=== PATIENT | female | born 1955 | race Caucasian/White ===

== ENCOUNTER 2019-05-31 13:20 | Emergency (ER) | payer MEDICARE, SELFPAY ==
[2019-05-31 13:20] VITALS: BP 161/86; PULSE 99; RESP 16; TEMP 36.7; O2SAT 100; BMI 28.1
--- NOTE | 2019-05-31 14:17 | CT_ITS ---
STUDY: CT BRAIN WITHOUT CONTRAST REASON FOR EXAM: Female, 64 years old. 4 day history of occipital headaches as well as left orbital and left earache. RADIATION DOSAGE (If Supplied By Facility): CTDIvol = ( 44.99 ) mGy, DLP = ( 796.11 ) mGycm TECHNIQUE: Transaxial CT imaging of the brain was performed without administration of intravenous contrast material. Individualized dose optimization techniques were used for this CT. COMPARISON: No relevant priors. FINDINGS: Normal soft tissue structures. Normal calvarium. There is mild cerebral atrophy with widening of the extra-axial spaces and ventricular dilatation. Normal white matter tracts of the cerebral hemispheres. Normal basal ganglia and thalami. Normal brainstem. Normal cerebellum. There is no intracranial hemorrhage. There are no findings of an acute ischemic infarction. Normal visualized paranasal sinuses. CT/Brain/Head without Contrast IMPRESSION: Chronic involutional changes of the brain. Electronically Signed: Partha Wilkins, at 15:02 EDT , Service support ,
[2019-05-31 14:53] LABS: Erythrocyte Sedimentation Rate 7 mm/hr (0-30)
[2019-05-31 14:55] LABS: Absolute Lymphocyte Count 1.52 X10^3/uL (0.83-4.51); Absolute Neutrophil Count 2.4 X10^3/uL (2.0-7.7); Basophil# 0.05 X10^3/uL; Basophil% 1.1 % (0-1); Eosinophil# 0.09 X10^3/uL; Hematocrit 43.6 % (37-47); Hemoglobin 15.1 g/dL (12.0-15.0); Lymphocyte # 1.52 X10^3/ul (4.0); Lymphocyte % 34.1 % (19-41); Mean Corp Hgb Conc 34.6 g/dL (32-36); Mean Corpuscular Volume 95.4 fL (81-99); Mean Platelet Vol. 9.7 fl (6.2-12.0); Monocyte# 0.43 X10^3/uL; Monocyte% 9.6 % (0-10); NRBC Flagged by Analyzer 0 % (0-5); Neutrophil # 2.36 X10^3/uL (2.7-7.7); Platelet Count 213 K/mm3 (150-450); RBC Distribution Width CV 11.1 % (11.6-14.6); RBC Distribution Width SD 39.1 fl (35.1-43.9); Red Blood Count 4.57 M/mm3 (4.2-5.4); White Blood Count 4.5 K/mm3 (4.4-11.0)
[2019-05-31 15:03] LABS: ALB/GLOB Ratio 1.1 RATIO (0.9-2.4); AST(SGOT) 27 U/L (15-37); Alanine Aminotransfer ALT/SGPT 54 U/L (13-56); Albumin, Serum 3.7 g/dL (3.2-5.0); Alkaline Phosphatase 71 U/L (45-117); Anion Gap 8 (5-15); BUN 13 mg/dL (7-18); BUN/Creat Ratio 15.2 RATIO (10-20); Calcium,Total 9.2 mg/dL (8.5-10.1); Chloride 109 mmol/L (98-107); Creatinine, Serum 0.86 mg/dL (0.55-1.02); EST Glomerular Filtration Rate 71 mL/min (>60); Est Glom Filt Rate - Afr Amer 85 mL/min (>60); Estimated Creatinine Clearance 58.68 ml/min; Globulin 3.4 g/dL (2.2-4.2); Glucose 96 mg/dL (74-106); Potassium 3.8 mmol/L (3.5-5.1); Protein, Total 7.1 g/dL (6.4-8.2); Sodium Level 142 mmol/L (136-145)
--- NOTE | 2019-05-31 15:42 | ED.DCSUM_ITS ---
History of Present Illness Chief Complaint: Headache Detail of Chief Complaint: Left eye pain, occipital and left ear pain that is intermittent Informant: Patient Onset: Days - Onset of symptoms 5 days ago Context: Sudden Onset Timing: Continuous - The eye pain is continuous, Intermittent - The occipital pain and left ear pain is intermittent and transient Quality: Sharp piercing pain Location: Occiput, left ear and left eye Current Severity: Moderate Maximum Severity: Severe Worsened by: Nothing Relieved by: Nothing Associated Symptoms: No associated symptoms Narrative: Patient is a 64-year-old woman who presents with left occipital pain that is transient sharp in nature is not exacerbated, precipitated or alleviated by anything. She states this is associated with left ear pain. She is had constant left eye pain for the past 5 days. She denies double vision, blurred vision loss of vision. She denies flashing lights. There is no history of glaucoma in the family or herself. She denies nausea or vomiting. There is no history of trauma. She denies neck pain or neck stiffness. She denies ringing or ears or decreased hearing. She denies trouble with speech or swallowing. She denies cardiac respiratory symptoms. She denies paresthesia, anesthesia motor weakness of the upper lower extremity. She denies trouble with balance. She denies difficulty concentrating or remembering things. He has a history of hypertension. Prior similar symptoms: No Recent Illness/Hospitalization: No - Past Medical History (1) History of hypertension Status: Acute Past Medical History - Allergies and Home Meds Allergies/Adverse Reactions: Allergies No Known Allergies Allergy (Verified 05/31/19 14:38) Primary Care Physician: Care Physician,No Primary [Primary Care Provider] - Prior records reviewed: Yes Surgical History: noncontributory Lives: Spouse/ Significant Other Smoking Status: Never smoker Alcohol: None Drugs: None Review of Systems General: Denies: Chills, Fever, Malaise, Subjective, Sweats, Weight loss Eyes: Reports: - - Complains of eye pain. Denies photophobia or any other ocular symptoms.. Denies: Visual changes - bilaterally, Blurred Vision - bilate rally, Diplopia ENT: Reports: Left ear pain. Denies: Right ear pain, Rhinorrhea, Sore throat Cardiovascular: Denies: Chest pain, Palpitations Respiratory: Denies: Dyspnea, Cough, Dyspnea on exertion Gastrointestinal: Denies: Abdominal pain, Nausea, Vomiting, Diarrhea, Melena, Hematochezia Musculoskeletal: Denies: Myalgias, Arthralgias, Neck pain, Back pain, Swelling, Extremity Pain, -, - Skin: Denies: Rash, Wounds Neurological: Reports: Headache. Denies: Weakness, Parasthesia, Numbness Psych: Denies: Depression, Anxiety Hematologic: Denies: Easy bruising, Easy bleeding Physical Exam Vital Signs/Narrative: Vital Signs Temp Pulse Resp BP Pulse Ox 05/31/19 13:20 98.1 F 99 16 161/86 H 100 Inital Vital Signs reviewed: Yes General: Well nourished, Well developed, No Acute Distress Head: Normocephalic, Atraumatic, - - No tenderness over the left temporal artery. Eyes: Perrl, EOMI, - - Exam reveals normal cup-to-disc ratio. There is no evidence of papilledema. Venous pulsation noted bilaterally.. Negative for: Pale conjunctiva, Scleral icterus ENT: Moist mucous membranes, No rhinorrhea, TM's clear. Negative for: Dry mucous membranes, Nasal congestion, Sinus tenderness Neck: Supple, Nontender, No lymphadenopathy, No JVD, - - Negative meningeal findings Cardiovascular: Regular rate, Regular rhythm, No murmurs, Normal S1, Normal S2 Respiratory: No distress, CTA bilaterally, Chest nontender Abdomen: Soft, Nontender, Nondistended, Normal bowel sounds Back: Nontender, Normal Inspection. Negative for: CVA tenderness Extremities: Nontender, No edema Skin: Normal color, No rash Neurological: Alert, Oriented x3, Cranial nerves II-XII grossly intact, Normal Strength, Normal Sensation, Normal DTR, Normal Gait Psychological: Normal affect, Normal Mood Diagnostic/Tx/Re-eval Impressions Brain CT 05/31/19 14:17 IMPRESSION: Chronic involutional changes of the brain. Electronically Signed: Partha Wilkins, at 15:02 EDT , Service support , 05/31/19 14:17 Brain/Head without Contrast [CT] Stat Laboratory Results 05/31/19 05/31/19 14:40 14:40 WBC 4.5 RBC 4.57 Hgb 15.1 H Hct 43.6 MCV 95.4 MCH 33.0 H MCHC 34.6 RDW Std Deviation 39.1 RDW Coeff of Miguel 11.1 L Plt Count 213 MPV 9.7 Immature Gran % (Auto) 0.200 Neut % (Auto) 53.0 Lymph % (Auto) 34.1 Terry % (Auto) 9.6 Eos % (Auto) 2.0 Baso % (Auto) 1.1 H Absolute Neuts (auto) 2.4 Absolute Lymphs (auto) 1.52 Nucleated RBC % 0 ESR 7 Sodium 142 Potassium 3.8 Chloride 109 H Carbon Dioxide 25.0 Anion Gap 8 BUN 13 Creatinine 0.86 Estim Creat Clear Calc 58.68 Est GFR (MDRD) Af Amer 85 Est GFR (MDRD) Non-Af 71 BUN/Creatinine Ratio 15.2 Glucose 96 Calcium 9.2 Total Bilirubin 0.50 AST 27 ALT 54 Alkaline Phosphatase 71 Total Protein 7.1 Albumin 3.7 Globulin 3.4 Albumin/Globulin Ratio 1.1 Sed rate is normal. This would essentially rule out temporal arteritis. CAT scan was unremarkable. The rest of her work-up was unremarkable. Patient was instructed to keep her appointment with the non linear editor scheduled for later today. ED Disposition - Plan for ED Patient: Disposition: Home or Assisted Living Diagnosis: Acute left eye pain, Occipital pain Referrals: Care Physician,No Primary [Primary Care Provider] - Additional Instructions: Keep appointment with non linear editor.
== END 2019-05-31 15:52 | disposition home or self-care (01) ==
PROVIDERS: Emergency Provider Emergency Medicine
DX: H57.12 Ocular pain, left eye (principal); R51 Headache; H92.02 Otalgia, left ear; I10 Essential (primary) hypertension
CPT/HCPCS: 70450; 80053; 85025; 85652; 99282

== ENCOUNTER 2021-10-21 08:04 | Emergency (ER) | payer MEDICARE, OTHER, SELFPAY ==
[2021-10-21 08:05] VITALS: BP 136/79; PULSE 98; RESP 16; TEMP 36.1; O2SAT 97; BMI 27.1
--- NOTE | 2021-10-21 08:21 | CT_ITS ---
STUDY: CT BRAIN WITHOUT CONTRAST REASON FOR EXAM: Female, 66 years old. Pain RADIATION DOSAGE (If Supplied By Facility): CTDIvol = ( 44.99 ) mGy, DLP = ( 812.98 ) mGycm TECHNIQUE: Transaxial CT imaging of the brain was performed without administration of intravenous contrast material. Individualized dose optimization techniques were used for this CT. COMPARISON: No relevant priors. FINDINGS: Air-fluid level in the left globe may be related to recent surgery. Clinical correlation is recommended. Normal calvarium. There is mild cerebral atrophy with widening of the extra-axial spaces and ventricular dilatation. There are areas of decreased attenuation within the white matter tracts of the supratentorial brain, consistent with microvascular disease changes. Normal basal ganglia and thalami. Normal brainstem. Normal cerebellum. There is no intracranial hemorrhage. There are no findings of an acute ischemic infarction. Normal visualized paranasal sinuses. CT/Brain/Head without Contrast IMPRESSION: 1. Chronic involutional changes of the brain. 2. Air-fluid level in the left globe possibly related to recent surgery. Clinical correlation is recommended. Electronically Signed: Ck Saunders MD at 8:48 EDT ,
--- NOTE | 2021-10-21 08:21 | EX.ED.VIS.HA ---
HPI History of Present Illness Chief Complaint: Headache Narrative Narrative: 66-year-old female presenting with headache. She states it radiates up from her neck into her head. She states she feels like her neck muscles are tight and causing a headache. The headache is intermittent and feels like ice packs in her head all over. She denies dizziness, lightheadedness, visual complaints, nausea, vomiting. No history of migraines. She was seen outpatient for this and given muscle relaxers without relief. Patient states that she had a retinal detachment recently and was seen for this. Since the surgery she had for her eyes she has had to hold her neck to the right intermittently for relief. Her symptoms started before the eye surgery and the retinal detachment. Patient did not had any imaging of her brain. PFSH PFS Medical History Environmental allergies Hemorrhoids Seasonal allergies Home Medications ascorbic acid (vitamin C) 500 mg capsule mg PO 07/03/21 [History Last Taken Unknown] cholecalciferol (vitamin D3) 10 mcg (400 unit) capsule 10 mcg PO DAILY 07/03/21 [History Last Taken Unknown] tumeric 100 mg-sanjiv 150 mg-olive 50 mg-oreg 150 mg-caprylate capsule cap PO 07/03/21 [History Last Taken Unknown] zinc sulfate 66 mg tablet 66 mg PO DAILY 07/03/21 [History Last Taken Unknown] Allergy/AdvReac Type Severity Reaction Status Date / Time [id number] Reductase AdvReac Pain in Verified 10/21/21 08:05 Inhibitor joints Social History Smoking Status: Never smoker alcohol intake: never ROS ROS ED Constitutional Constitutional ED: Denies chills or fever(s) Eyes Eyes: Denies blurry vision or change in vision ENT ENT ED: Denies rhinorrhea or sore throat Cardiovascular Cardiovascular: Denies chest pain or palpitations Respiratory/Chest Respiratory/Chest: Denies cough or dyspnea Gastrointestinal Gastrointestinal: Denies abdominal pain, nausea or vomiting Genitourinary Genitourinary ED: Denies dysuria or hematuria Musculoskeletal Musculoskeletal: Denies arthralgias or myalgias Integumentary Denies abscess or rash Neurologic Neurologic: Denies headache(s) or weakness EXAM Physical Exam Const Vital Signs: 10/21/21 08:05 Temperature 96.9 F L Temperature Source Temporal Pulse Rate 98 Respiratory Rate 16 Blood Pressure 136/79 H Blood Pressure Mean 98 Pulse Ox 97 Oxygen Delivery Method Room Air Positive well nourished General Appearance ED: ISHMAEL RICHTER Reports normocephalic atraumatic Eyes PERRL and EOMs intact bilaterally Resp normal respiratory effort and clear to auscultation bilaterally Cardio regular rate and regular rhythm GI non-tender Palpation: soft Neuro oriented x3, CN's II-XII intact bilaterally and no sensory deficits noted Sensorium / Orientation: awake and alert Psych mental status grossly normal Skin Nails: normal MDM MDM MDM Narrative Medical decision making narrative: Patient seen and evaluated for headache. I do believe this is a tension type headache. Patient with recent surgery to the left eye for detached retina she states. She is having to hold her head leaning to the right for 50 minutes at a time which I believe is worsening her headache pain. She has no focal neurologic deficits or lateralizing signs or symptoms. She was given a migraine cocktail and obtained a CT of the brain which does not show any intracranial abnormalities. The radiologist does note air-fluid level in the left lobe due to related recent surgery. Patient has some relief of her headache pain but states it still present. She states that Excedrin Migraine does work for her headache however she is unable to take this because of the aspirin component and the recent surgery. She is counseled to follow these instructions and follow-up with ophthalmology. I did give her referral to Dr. Singleton. She is discharged home in stable condition. Impression: 1. Headache Radiography Diagnostic Testing: Clinical Impression(s) from Imaging Studies Brain CT 10/21/21 08:21 IMPRESSION: 1. Chronic involutional changes of the brain. 2. Air-fluid level in the left globe possibly related to recent surgery. Clinical correlation is recommended. Electronically Signed: Ck Saunders MD at 8:48 EDT , Discharge Plan Triage Chief Complaint: Headache ED Provider: Dileep Cheng Dx/Rx/DC Orders Instructions: ED Headache, Tension Prescriptions: No Action ascorbic acid (vitamin C) 500 mg capsule PO RF: 0 cholecalciferol (vitamin D3) 10 mcg (400 unit) capsule 10 mcg PO DAILY RF: 0 Zinc-15 66 mg tablet 66 mg PO DAILY RF: 0 neohpxs-xvfz-ffpmt-oreg-capryl 100 mg-150 mg- 50 mg-150 mg capsule PO RF: 0 Primary Care Provider: Care Physician,No Primary Referrals: gJ Singleton MD [STAFF PHYSICIAN] - As soon as possible Care Physician,No Primary [Primary Care Provider] - Disposition Disposition: Home, Self Care
[2021-10-21] MEDS: DiphenhydrAMINE 50 MG/ML Syringe 25 MG IV (08:29)
[2021-10-21] MEDS: Metoclopramide 10 MG/2 ML Vial IV (08:29)
[2021-10-21] MEDS: 0.9% Normal Saline 1,000 ML 999 ML IV (08:29)
[2021-10-21] MEDS: Ketorolac 15 MG/ML Vial IV (09:13)
== END 2021-10-21 10:15 | disposition home or self-care (01) ==
PROVIDERS: Emergency Provider Student in an Organized Health Care Education/Training Program; Visit Provider Student in an Organized Health Care Education/Training Program
DX: R51.9 Headache, unspecified (principal)
CPT/HCPCS: 70450; 96361; 96374; 96375; 99282; J7030; A4216

== ENCOUNTER 2021-10-23 09:53 | Outpatient (CLI) | payer MEDICARE, OTHER, SELFPAY ==
--- NOTE | 2021-10-23 10:00 | RAD_ITS ---
INDICATION: Neck pain; occipital headaches EXAMINATION/TECHNIQUE: X-RAY - XR Spine Cervical 2 or 3 Views COMPARISON: None. FINDINGS: VERTEBRAE: Preserved vertebral body height. No fracture. No spondylolisthesis. Preservation of the normal cervical lordosis. Mild multilevel degenerative changes and facet arthropathy. DISCS: Disc spaces are maintained. NECK SOFT TISSUES: No prevertebral soft tissue widening. LUNG APICES: Clear. RAD/Cerv Spine 2 or 3 Views IMPRESSION: No acute findings. Electronically Signed: Merlin Ruelas, at 16:34 EDT ,
[2021-10-23 12:18] LABS: Erythrocyte Sedimentation Rate 19 mm/hr (0-30)
[2021-10-23 12:20] LABS: Hematocrit 44.6 % (37-47); Hemoglobin 15.7 g/dL (12.0-15.0); Mean Corp Hgb Conc 35.2 g/dL (32-36); Mean Corpuscular Hgb 33.3 pg (27.0-32.0); Mean Corpuscular Volume 94.7 fL (81-99); Mean Platelet Vol. 9.7 fl (6.2-12.0); Platelet Count 334 K/mm3 (150-450); RBC Distribution Width CV 11.1 % (11.6-14.6); RBC Distribution Width SD 38.7 fl (35.1-43.9); Red Blood Count 4.71 M/mm3 (4.2-5.4); White Blood Count 6.4 K/mm3 (4.4-11.0)
[2021-10-23 12:41] LABS: ALB/GLOB Ratio 0.8 RATIO (0.9-2.4); AST(SGOT) 22 U/L (15-37); Alanine Aminotransfer ALT/SGPT 42 U/L (13-56); Albumin, Serum 3.8 g/dL (3.2-5.0); Alkaline Phosphatase 101 U/L (45-117); Anion Gap 5 (5-15); BUN 12 mg/dL (7-18); BUN/Creat Ratio 13.9 RATIO (10-20); Calcium,Total 10.1 mg/dL (8.5-10.1); Chloride 102 mmol/L (98-107); Creatinine, Serum 0.86 mg/dL (0.55-1.02); EST Glomerular Filtration Rate 69 mL/min (>60); Est Glom Filt Rate - Afr Amer 84 mL/min (>60); Globulin 4.6 g/dL (2.2-4.2); Glucose 112 mg/dL (74-106); Potassium 3.9 mmol/L (3.5-5.1); Protein, Total 8.4 g/dL (6.4-8.2); Sodium Level 137 mmol/L (136-145)
== END 2021-10-23 23:59 | disposition home or self-care (01) ==
LOC: MTLAB 09:55
PROVIDERS: PCP Nurse Practitioner Family; Referring Provider Psychiatry & Neurology Neurology; Visit Provider Psychiatry & Neurology Neurology
DX: M54.2 Cervicalgia (principal); R51.9 Headache, unspecified; Z86.79 Personal history of other diseases of the circulatory system
CPT/HCPCS: 36415; 72040; 80053; 85027; 85652

== ENCOUNTER → 2024-06-25 | Outpatient (CLI) | payer MEDICARE, OTHER, SELFPAY ==
[2024-06-25 13:25] VITALS: BP 124/60; PULSE 90; RESP 16; O2SAT 100; BMI 26.8
[2024-06-25 13:45] LABS: CREATININE FINGERSTICK < 1.0 mg/dL (0.55-1.02); EGFR FINGERSTICK > 60.0000 mL/min (>60)
[2024-06-25 13:47] VITALS: PULSE 74
[2024-06-25] MEDS: Nitroglycerin SL (ED/IMG/CATH) 0.4 MG TABLET SL (13:47)
[2024-06-25 13:51] VITALS: BP 124/60; PULSE 72
[2024-06-25] MEDS: Metoprolol Tartrate 5 MG/5 ML Vial IV (13:51)
[2024-06-25 13:57] VITALS: BP 121/63; PULSE 62; RESP 16; O2SAT 97
--- NOTE | 2024-06-25 14:04 | CT_ITS ---
STUDY: CT CHEST WITH CONTRAST REASON FOR EXAM: Female, 69 years old. CHEST PAIN RADIATION DOSAGE (If Supplied By Facility): CTDIvol = ( 28.84 ) mGy, DLP = ( 1112.37 ) mGycm TECHNIQUE: Transaxial imaging was performed following intravenous administration of IV 75mL Isovue-370. Individualized dose optimization techniques were used for this CT. COMPARISON: No relevant priors. FINDINGS: CHEST The lungs are normal. There is no demonstrated pleural abnormality. There are calcifications of the coronary arteries. Normal mediastinum. Calcified right hilar lymph nodes. Normal unenhanced pulmonary arteries. There is atherosclerotic calcification of the aortic arch. There are degenerative changes of the thoracic spine. Small hiatal hernia. Fatty infiltration of the liver. CT/Limited Chest CT Cardiac Only IMPRESSION: Mild coronary artery calcification. Electronically Signed: Partha Wilkins MD at 9:09 EST ,
--- NOTE | 2024-06-28 08:11 | CCTA.WCONT ---
CCTA w/Cont Coronary Arteries Date of Study:: 06/25/24 Chest pain Coronary Calcium Scoring: High-resolution Computed Tomographic imaging of the chest was performed on [06/25/2024], with particular attention paid to the coronary arteries. Intravenous contrast agent was administered per protocol and images reconstructed and displayed. LEFT MAIN CORONARY ARTERY: Arises from the left coronary cusp and bifurcates into left anterior descending artery and left circumflex artery with no significant stenosis present. [] LEFT ANTERIOR DESCENDING CORONARY ARTERY: Arises from the left main coronary artery. It courses towards the apex of the ventricle with a diagonal vessel with no significant atherosclerotic plaquing present. [] LEFT CIRCUMFLEX CORONARY ARTERY: Nondominant vessel arising from the left main coronary artery with a proximal area of eccentric nonobstructive plaquing noted the vessel continuing giving of an obtuse marginal branch. [] RIGHT CORONARY ARTERY: Large dominant vessel arising from the right coronary cusp with no significant atherosclerotic plaquing present. [] THORACIC AORTA: Mild anterior calcification CORONARY CALCIUM SCORE: Not done Conclusion: CT angiogram demonstrating minimal atherosclerotic plaquing. No significant obstruction present. []
== END | disposition home or self-care (01) ==
LOC: CT 13:05
PROVIDERS: PCP Nurse Practitioner Family; Referring Provider Internal Medicine Cardiovascular Disease; Visit Provider Internal Medicine Cardiovascular Disease
DX: R07.89 Other chest pain (principal)
CPT/HCPCS: 75574; 76380; 96374; Q9967

== ENCOUNTER 2025-02-27 10:16 | Emergency (ER) | payer MEDICARE, OTHER, SELFPAY ==
[2025-02-27 10:18] VITALS: BP 123/54; PULSE 100; RESP 17; TEMP 36.9; O2SAT 100
[2025-02-27 10:41] VITALS: BP 123/54; PULSE 100; RESP 17; TEMP 36.9; O2SAT 100
--- NOTE | 2025-02-27 10:42 | EX.ED.DYSGE1 ---
HPI History of Present Illness Chief Complaint: Other, Pain/Inj Detail of Chief Complaint: Fecal impaction Informant: patient and spouse/S.O. Onset/Context/Timing Onset: - (Last normal bowel movement 2 to 3 days ago) Context: Gradual Onset Timing: Continuous Quality: Feels like there is something stuck feels like I have a rag in my rectum Location: Rectum Current Severity: Moderate Maximum Severity: Moderate Worsened by: Not able to go Relieved by: Nothing Associated Symptoms Associated Symptoms: Had near syncopal sewed while straining on the commode Narrative Narrative: Patient is a 69-year-old woman with history of breast cancer. Last chemo was Friday. Patient presents with no bowel movement to 3 days. She states she used a normal saline enema with no results. She feels as if something is stuck in her rectum a rag . Patient did have near syncopal show with shaking and near syncope while straining to have a bowel movement prior to presentation. She had no other symptoms. She has no documented fever. She has no respiratory or urologic symptoms. Prior similar symptoms: No Recent Illness/Hospitalization: No PFSH PFSH Medical History Breast cancer Hypertension Cervical paraspinal muscle spasm GERD (gastroesophageal reflux disease) Retinal detachment High cholesterol Hx of cataract UTI (urinary tract infection) History of back problems Environmental allergies Seasonal allergies Hemorrhoids Home Medications ?Medication ?Instructions ?Recorded ?Last Taken ?Type omeprazole 40 mg capsule,delayed 40 mg PO DAILY #30 caps 12/03/21 Unknown Rx release diphenhydramine HCl 25 mg capsule 50 mg PO Q8H PRN allergy symptoms 02/27/25 Unknown History (Benadryl) fluorometholone 0.1 % eye 1 drp LEFT EYE DAILY 02/27/25 Unknown History drops,suspension gabapentin 100 mg capsule 200 mg PO TID 02/27/25 Unknown History pembrolizumab 50 mg intravenous 200 mg IV 02/27/25 Unknown History solution promethazine 25 mg tablet 25 mg PO TID PRN nausea and 02/27/25 Unknown History vomiting Allergy/AdvReac Type Severity Reaction Status Date / Time [id number]-BSG-[id number] Reductase AdvReac Pain in Verified 02/27/25 10:20 Inhibitor joints Family History Uncle Alcoholism Aunt Alcoholism Breast cancer Cancer ovarian Mother Liver disease Brother High cholesterol Social History household members: spouse housing: house Smoking Status: Never smoker alcohol intake: never substance use type: does not use what type of physical activity do you participate in: none ROS ROS ED Constitutional Constitutional ED: Denies chills, fever(s), subjective or sweats Eyes Eyes: Denies blurry vision or change in vision Cardiovascular Cardiovascular: Denies chest pain or palpitations Respiratory/Chest Respiratory/Chest: Denies cough, dyspnea or dyspnea on exertion Gastrointestinal Gastrointestinal: Reports abdominal pain and constipation; Denies diarrhea, melena, nausea or vomiting Genitourinary Genitourinary ED: Denies dysuria, hematuria or urinary frequency EXAM Physical Exam Const Vital Signs: 02/27/25 10:18 02/27/25 10:34 02/27/25 10:41 Temperature 98.4 F 98.4 F Temperature Source Oral Pulse Rate 100 100 Respiratory Rate 17 17 Respiratory Effort Normal Non-Labored Respiratory Pattern Normal Blood Pressure 123/54 H 123/54 H Blood Pressure Mean 77 77 Pulse Ox 100 100 Oxygen Delivery Method Room Air Positive well nourished and well developed Constitutional Narrative: Patient left decubitus position as I entered the room. She appears no obvious distress. General Appearance ED: well developed; Negative for pallor HEENT Reports moist mucous membranes HEENT Narrative: Alopecia. Ears normal. Nares patent. Eyes PERRL and EOMs intact bilaterally General Eye ED: Negative for scleral icterus Resp normal respiratory effort Cardio regular rate and regular rhythm GI non-tender, non-distended and no masses; Negative for hepatosplenomegaly GI Narrative: On rectal exam patient has evidence of prior hemorrhoids. The there is a significant fecal impaction noted. Extremity normal to inspection General Extremety ED: Negative for edema or tenderness General Extremity: Negative for edema Neuro oriented x3 and CN's II-XII intact bilaterally Sensorium / Orientation: alert Psych mental status grossly normal Skin no rashes or lesions noted, no wounds and skin turgor normal General Skin Exam: Negative for jaundice or pallor MDM MDM MDM Narrative Medical decision making narrative: Patient with fecal impaction. With nurse in room as kennel hand patient was digitally disimpacted. There was significant mount of stool that was removed. She had minimal bleeding. Will inform patient she may noted blood on the tissue or stool for the next day. Recommended increasing fluid intake and MiraLAX 1 cap a day for a week. She was told with the weather being very hot she will need to increase her fluid intake. Discharge Plan Triage Chief Complaint: Other, Pain/Inj ED Provider: Cuba Castro Dx/Rx/DC Orders Clinical Impression: Fecal impaction in rectum, History of hypertension, History of breast cancer, Vasovagal near syncope Instructions: ED Fecal Impaction, Treated, ED Near-Fainting- Vagal Reaction Prescriptions: No Action fluorometholone 0.1 % drops,suspension 1 drp LEFT EYE DAILY gabapentin 100 mg capsule 200 mg PO TID pembrolizumab 50 mg recon soln 200 mg IV promethazine 25 mg tablet 25 mg PO TID PRN (Reason: nausea and vomiting) diphenhydramine HCl [Benadryl] 25 mg capsule 50 mg PO Q8H PRN (Reason: allergy symptoms) omeprazole 40 mg capsule,delayed release(DR/EC) 40 mg PO DAILY Qty: 30 0RF Primary Care Provider: Babita Morataya NP Referrals: Babita Morataya POULTRY BONER, POULTRY BONER-C [Primary Care Provider] - As Needed Activity Restrictions/Additional Instructions: 1. Recommend increase fluid intake especially with the hot muggy weather this summer. 2. Recommend 1 cap of MiraLAX daily for the next week. If you start to have loose stools back down to half Per day Print Language: Croatian Disposition Disposition: Home, Self Care
--- OUTSIDE RECORDS SUMMARY | 2025-02-27 11:21 | XMS RPT_ITS | CCD ---
Author Organization [facility] Care Team Providers Care Security Researcher Name Role Phone RAFIA CHRISTIENERIKA, BABITA Primary Care Physician RAFIA BRIAN, BABITA Attending Unavail able LORSON INDUSTRIAL TRAINING SPECIALIST-SURVEY RESEARCH MANAGER, [facility] Unavail able LORSON INDUSTRIAL TRAINING SPECIALIST-SURVEY RESEARCH MANAGER, [facility] Unavail able LORSON INDUSTRIAL TRAINING SPECIALIST-SURVEY RESEARCH MANAGER, BABITA Attending Unavail able LORSON INDUSTRIAL TRAINING SPECIALIST-SURVEY RESEARCH MANAGER, [facility] Unavail able DR TIMUR MINA Attending Unavailable LORSON INDUSTRIAL TRAINING SPECIALIST-SURVEY RESEARCH MANAGER, [facility] Unavail able LORSON INDUSTRIAL TRAINING SPECIALIST-SURVEY RESEARCH MANAGER, BABITA Attending Unavail able Swapnil Vargas Attending Unavailable Sukhi Pizano Referring Unavailable Lorson MANUFACTURING ENGINEERING TECHNOLOGIST, [facility] Unavailable Swapnil Vargas Attending Unavailable Sukhi Pziano Referring Unavailable Rafia MANUFACTURING ENGINEERING TECHNOLOGIST, [facility] Unavailable Sukhi Pizano Consulting Unavailable Sukhi Pizano Attending Unavailable Sukhi Pizano Referring Unavailable Lorson MANUFACTURING ENGINEERING TECHNOLOGIST, [facility] Unavailable LORSON INDUSTRIAL TRAINING SPECIALIST-SURVEY RESEARCH MANAGER, BABITA Attending Unavail able LORSON INDUSTRIAL TRAINING SPECIALIST-SURVEY RESEARCH MANAGER, [facility] Unavail able WOO CERON, DR ISBELL Attending Unavailab le LORSON INDUSTRIAL TRAINING SPECIALIST-SURVEY RESEARCH MANAGER, [facility] Care Unavail able LORSON INDUSTRIAL TRAINING SPECIALIST-SURVEY RESEARCH MANAGER, BABITA Attending Unavail able LORSON INDUSTRIAL TRAINING SPECIALIST-SURVEY RESEARCH MANAGER, [facility] Unavail able LORSON INDUSTRIAL TRAINING SPECIALIST-SURVEY RESEARCH MANAGER, BABITA Attending Unavail able LORSON INDUSTRIAL TRAINING SPECIALIST-SURVEY RESEARCH MANAGER, [facility] Unavail able DR ADITYA SMITH DO Attending Unavailable LORSON INDUSTRIAL TRAINING SPECIALIST-SURVEY RESEARCH MANAGER, [facility] Unavail able WOO CERON, DR ISBELL Attending Unavailab le LORSON INDUSTRIAL TRAINING SPECIALIST-SURVEY RESEARCH MANAGER, [facility] Unavail able LORSON INDUSTRIAL TRAINING SPECIALIST-SURVEY RESEARCH MANAGER, BABITA Attending Unavail able LORSON INDUSTRIAL TRAINING SPECIALIST-SURVEY RESEARCH MANAGER, [facility] Unavail able WOO CERON, DR ISBELL Consulting Unavailab le LORSON INDUSTRIAL TRAINING SPECIALIST-SURVEY RESEARCH MANAGER, BABITA Attending Unavail able LORSON INDUSTRIAL TRAINING SPECIALIST-SURVEY RESEARCH MANAGER, DUTTON Primary Care Unavail able LORSON INDUSTRIAL TRAINING SPECIALIST-SURVEY RESEARCH MANAGER, BABITA Attending Unavail able LORSON INDUSTRIAL TRAINING SPECIALIST-SURVEY RESEARCH MANAGER, D[place]TON Primary Care Unavail able LORSON INDUSTRIAL TRAINING SPECIALIST-SURVEY RESEARCH MANAGER, DUTTON Primary Care Unavail able LORSON INDUSTRIAL TRAINING SPECIALIST-SURVEY RESEARCH MANAGER, BABITA Attending Unavail able LORSON INDUSTRIAL TRAINING SPECIALIST-SURVEY RESEARCH MANAGER, DUTTON Primary Care Unavail able LORSON INDUSTRIAL TRAINING SPECIALIST-SURVEY RESEARCH MANAGER, DUTTON Attending Unavail able Lorson INDUSTRIAL TRAINING SPECIALIST.SURVEY RESEARCH MANAGER, [place] Primary Care Provider Sara Avalos MD Unavailable Lidia Hirsch DO Unavailable PROVIDER, UNKNOWN [facility]erring [facility] Un[facility] PROVIDER, UNKNOWN Referring [facility] Unavailable NIDIA WATERMAN Admitting Unavailable NIDIA WATERMAN Attending Un[facility] Unavailable Masci DO [place] A Unavailable Wm LOYD, Jennifer Unavailable Unavailable Deborah Vidal Unavailable Unavailabl e KIMMIE COLBY Referring Unavailable [facility] Unavailable NURYS HIRSCHTLIN C Referring Unavailable [facility] Unavailable MIRZA HIRSCHIN C Attending [facility] Unavailable NURYS HIRSCHTLIN C Attending Unavailable [facility] Unavailable MASCI, ORVILLE A Referring Unavailable [facility] Unavailable MASCI, ORVILLE A Referring Unavailable [facility] Unavailable PROVIDER, UNKNOWN Referring Unavailable [facility] Unavailable MASCI, ORVILLE A Referring Unavailable [facility] Unavailable MASCI, ORVILLE A Referring Unavailable [facility] Referring Unavailable SARA AVALOS Attending Unavailable SONALI LOVE Attending Unavailable [facility] Unavailable ADRIEL REAGAN Referring Unavailable [facility] Unavailable JOYCELYN, LIDIA C Referring Unavailable SONALI LOVE Referring Unavailable [facility] Unavailable MASCI, ORVILLE A Referring Unavailable [facility] Unavailable LORSON, BABITA Primary Care Unavailable KIMMIE COLBY Attending Unavailable MICHELLE ORVILLE A Referring Unavailable LORMATHEW DUTTON Primary Care Unavailable EMILIE LENNON Attending Unavailable MARCI, ORVILLE A Referring Unavailable LORMATHEW [facility] Unavailable LORSON [facility] Unavailable MASCI OR[place] A Referring Unavailable LORSON, DUTTON Primary Care Unavailable LIDIA HIRSCH Referring Unavailable LORSON BABITA Primary Care Unavailable MARCI, ORVILLE A Attending Unavailable LIDIA HIRSCH Referring Unavailable LORSON DUTTON Primary Care Unavailable MARCI, ORVILLE A Referring Unavailable LORSON DUTTON Primary Care Unavailable MARCI, ORVILLE A Referring Unavailable Lorson MANUFACTURING ENGINEERING TECHNOLOGIST-C, [place] Primary Care Provider Matthew CERON, Dr. Brink Emergency Provider Allergies Allergy Classification Reported Allergen(s) Allergy Type Date of Onset Reaction(s) Facility (10 sources) atorvastatin; Translations: [atorvastatin] Drug Allergy Muscle pain (finding) [facility] (10 sources) misc non-codified allergy 1 Allergy to substance Itching (finding) [facility] Comment on above: [place] (1 source) Gagizba-Nac-Wvf Reductase Inhibitor Drug allergy (disorder) 4 [facility] Repository (20 sources) HMG-CoA reductase inhibitor; Translations: [OJOQXVT-WFF-ST A REDUCTASE INHIBITORS] Drug Intolerance 5 Myalgia [facility] (1 source) Mrketwo-Opv-Oks Reductase Inhibitor Propensity to adverse reactions 5 Pain in joints [facility] Medications Current Medications Medication Drug Class(es) Dates Sig (Normalized) Sig (Original) acetaminophen 325 mg oral capsule (9 sources) take 2 capsules by mouth once daily as needed for pain acetaminophen (TYLENOL) 325 mg cap Take 2 capsules by mouth once daily as needed for pain. Active acetaminophen 250 mg / aspirin 250 mg / caffeine 65 mg oral tablet (1 source) Platelet Aggregation Inhibitor, Nonsteroidal Anti-inflammatory Drug, Central Nervous System Stimulant, Methylxanthine Start: 10-17-2021 take 1 tablet by mouth every six hours as needed for headache Excedrin Extra Strength oral tab (250/250/65) Dose = 1 tab(s), Oral, q6h, PRN for headache, 0 Refill(s) Start Date: 10/17/21 Status: Ordered aspirin 81 mg delayed release oral tablet (4 sources) Platelet Aggregation Inhibitor, Nonsteroidal Anti-inflammatory Drug Start: 05-28-2024 aspirin 81 mg oral delayed release tablet Dose : 81 mg = 1 tab(s), Oral, qDay, # 30 tab(s), 6 Refill(s), Pharmacy: [facility] #[id number], 165.1, cm, 05/28/24 8:19:00 EDT, Height, kg, 05/28/24 8:19:00 EDT, Dosing Weight Start Date: 05/28/24 Status: Ordered cider vinegar oral tablets (1 source) Start: 11-04-2023 cider vinegar oral tablets 0 Refill(s) Start Date: 11/04/23 Status: Ordered Collagen Skin Renewal (6 sources) Start: 11-04-2023 Collagen Skin Renewal Oral, qDay, 0 Refill(s) Start Date: 11/04/23 Status: Ordered diphenhydrAMINE hydrochloride 25 mg oral capsule (7 sources) Histamine-1 Receptor Antagonist Start: 02-27-2025 take 2 capsules by mouth every eight hours as needed Diphenhydramine Hcl (Benadryl) 25 mg capsule Active 50 mg PO Q8H as needed for allergy symptoms February 27, 2025 12:00am Start: 02-23-2025 End: 02-23-2025 25 mg, INTRAVENOUS, ONCE, 1 dose, On Fri02/23/25 at 1030 Start: 02-16-2025 End: 02-16-2025 25 mg, INTRAVENOUS, ONCE, 1 dose, On Fri02/16/25 at 1130 Start: 02-09-2025 End: 02-09-2025 25 mg, INTRAVENOUS, ONCE, 1 dose, On Fri02/09/25 at 0800 Start: 02-01-2025 End: 02-01-2025 25 mg, INTRAVENOUS, ONCE, 1 dose, On Fri02/01/25 at 1030 Start: 01-25-2025 End: 01-25-2025 25 mg, INTRAVENOUS, ONCE, 1 dose, On Fri01/25/25 at 0900 Start: 01-18-2025 End: 01-18-2025 25 mg, INTRAVENOUS, ONCE, 1 dose, On Fri01/18/25 at 0830 1 ml evolocumab 140 mg/ml auto-injector (2 sources) PCSK9 Inhibitor Start: 05-28-2024 inject 1 dose by subcutaneous injection every other week Monique HopsonClick 140 mg/mL subcutaneous solution Dose : 140 mg =, Subcutaneous, q2wk, rotate injection sites, # 6 EA, 6 Refill(s), Pharmacy: [facility] #[id number], 165.1, cm, 05/28/24 8:19:00 EDT, Height, kg, 05/28/24 8:19:00 EDT, Dosing Weight Start Date: 05/28/24 Status: Ordered fluorometholone 1 mg/ml ophthalmic suspension (1 source) Corticosteroid Start: 02-27-2025 Fluorometholone 0.1 % drops,suspension Active 1 NMA LEFT EYE DAILY February 27, 2025 12:00am gabapentin 100 mg oral capsule (5 sources) Anti-epileptic Agent Start: 02-21-2025 End: 03-23-2025 take 2 capsules by mouth three times daily Gabapentin 100 mg capsule Active 200 mg PO THREE TIMES A DAY February 27, 2025 12:00am Glucosamine (6 sources) Start: 11-04-2023 glucosamine Oral, with turmeric, 0 Refill(s) Start Date: 11/04/23 Status: Ordered Ibuprofen (5 sources) Nonsteroidal Anti-inflammatory Drug Start: 02-02-2024 ibuprofen 0 Refill(s) Start Date: 02/02/24 Status: Ordered lidocaine 25 mg/ml / prilocaine 25 mg/ml topical cream (10 sources) Antiarrhythmic, Amide Local Anesthetic Start: 01-25-2025 lidocaine-prilocai ne (EMLA) 2.5-2.5 % cream Apply 1 application to affected area as needed. 01/25/2025 Active Start: 01-25-2025 End: 01-26-2025 lidocaine-prilocaine (EMLA) 2.5-2.5 % cream Apply to affected area as needed (Apply to port site 60 minutes prior to accessing) for up to 1 day. 15 g 2 01/25/2025 01/26/2025 Active methylPREDNISolone (3 sources) Corticosteroid Start: 02-08-2025 End: 02-14-2025 methylPREDNISolone (MEDROL, SOLOMON,) 4 mg Dose-Pack As Instructed per package 21 tablet 02/08/2025 02/14/2025 Active 24 hr metoprolol succinate 25 mg extended release oral tablet (4 sources) beta-Adrenergic Geri Start: 05-28-2024 metoprolol succinate 25 mg oral TABLET extended release Dose : 25 mg = 1 tab(s), Oral, qDay, Do not crush or chew (controlled release), # 30 tab(s), 6 Refill(s), Pharmacy: [facility] #[id number], 165.1, cm, 05/28/24 8:19:00 EDT, Height, kg, 05/28/24 8:19:00 EDT, Dosing Weight Start Date: 05/28/24 Status: Ordered Multivitamin preparation (5 sources) Start: 05-24-2024 take 1 tablet by mouth once daily Multivitamin Dose = 1 tab(s), Oral, Daily, [facility] acid reflux medication, 0 Refill(s) Start Date: 05/24/24 Status: Ordered nitroglycerin 0.4 mg sublingual tablet (5 sources) Nitrate Vasodilator Start: 05-24-2024 nitroglycerin 0.4 mg sublingual tablet 0.4 mg Dose = 1 tab(s), Sublingual, q5min, PRN for chest pain, # 25 tab(s), 11 Refill(s), Pharmacy: [facility] #[id number], 165.1, cm, 05/28/24 8:19:00 EDT, Height, kg, 05/28/24 8:19:00 EDT, Dosing Weight Start Date: 05/28/24 Status: Ordered nutritional supplement (11 sources) Start: 02-02-2024 nutritional supplement Nerve Repair, 0 Refill(s) Start Date: 02/02/24 Status: Ordered Start: 11-04-2023 nutritional cortes pplement Super beets, 0 Refill(s) Start Date: 11/04/23 Status: Ordered omeprazole 40 mg delayed release oral capsule (20 sources) Proton Pump Inhibitor Start: 11-06-2021 End: 12-03-2021 take 1 capsule by mouth once daily omeprazole (PRILOSEC) 40 mg capsule Take 40 mg by mouth once daily. 07/21/2024 Active Pembrolizumab 50 mg recon soln (1 source) Start: 02-27-2025 Pembrolizumab 50 mg recon soln Active 200 mg IV February 27, 2025 12:00am prochlorperazine 10 mg oral tablet (20 sources) Phenothiazine Start: 01-14-2025 take 1 tablet by mouth every six hours as needed prochlorperazine (COMPAZINE) 10 mg tablet Indications: 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) Take 1 tablet by mouth every 6 hours as needed. 30 tablet 2 01/14/2025 Active promethazine hydrochloride 25 mg oral tablet (1 source) Phenothiazine Start: 02-27-2025 take 1 tablet by mouth three times daily as needed for nausea and vomiting Promethazine 25 mg tablet Active 25 mg PO THREE TIMES A DAY as needed for nausea and vomiting February 27, 2025 12:00am Completed/Discontinued Medications Medication Drug Class(es) Dates Sig (Normalized) Sig (Original) ascorbic acid 500 mg oral capsule (1 source) Vitamin C Start: 07-03-2021 End: 01-01-2022 Ascorbic Acid (Vitamin C) 500 mg capsule Discontinued mg PO July 03, 2021 1:00am January 01, 2022 9:27am CARBOplatin 172.5 mg in NaCl 0.9% 127.25 mL (PARAPLATIN) (2 sources) Start: 01-25-2025 End: 01-25-2025 172.5 mg (Target AUC = 1.5), INTRAVENOUS, Administer over 30 Minutes, ONCE, 1 dose, On Fri01/25/25 at 1030, exp 1000 01/26/25 (room temp) Hazardous Chemotherapy Drug: Use appropriate PPE. Antineoplastic Irritant. Start: 01-18-2025 End: 01-18-2025 172.5 mg (Target AUC = 1.5), INTRAVENOUS, Administer over 30 Minutes, ONCE, 1 dose, On Fri01/18/25 at 1130, exp 1000 01/19/25 (room temp) Hazardous Chemotherapy Drug: Use appropriate PPE. Antineoplastic Irritant. CARBOplatin 174.45 mg in NaC l 0.9% 127.445 mL (PARAPLATIN) (2 sources) Start: 02-23-2025 End: 02-23-2025 174.45 mg (Target AUC = 1.5) , INTRAVENOUS, Administer over 30 Minutes, ONCE, 1 dose, On Fri02/23/25 at 1200, Approx Total Volume - Expires: 02/24/25 @ 1135 Hazardous Chemotherapy Drug: Use appropriate PPE. Antineoplastic Irritant. Start: 02-16-2025 End: 02-16-2025 174.45 mg (Target AUC = 1.5) , INTRAVENOUS, Administer over 30 Minutes, ONCE, 1 dose, On Fri02/16/25 at 1330, exp 1200 02/17/25 (room temp) Hazardous Chemotherapy Drug: Use appropriate PPE. Antineoplastic Irritant. CARBOplatin 192.3 mg in NaCl 0.9% 129.23 mL (PARAPLATIN) (1 source) Start: 02-01-2025 End: 02-01-2025 192.3 mg (Target AUC = 1.5), INTRAVENOUS, Administer over 30 Minutes, ONCE, 1 dose, On Fri02/01/25 at 1230, Approx Total Volume - Expires: 02/02/25 @ 1055 Hazardous Chemotherapy Drug: Use appropriate PPE. Antineoplastic Irritant. CARBOplatin 197.55 mg in NaCl 0.9% 129.755 mL (PARAPLATIN) (1 source) Start: 02-09-2025 End: 02-09-2025 197.55 mg (Target AUC = 1.5), INTRAVENOUS, Administer over 30 Minutes, ONCE, 1 dose, On Fri02/09/25 at 1000, Approx Total Volume Expires: 02/10/25 @ 0810 Hazardous Chemotherapy Drug: Use appropriate PPE. Antineoplastic Irritant. cholecalciferol 0.01 mg oral capsule (1 source) Vitamin D Start: 07-03-2021 End: 01-01-2022 take 1 capsule by mouth once daily Cholecalciferol (Vitamin D3) 10 mcg (400 unit) capsule Discontinued 10 ug PO DAILY July 03, 2021 1:00am January 01, 2022 9:28am 1 ml dexamethasone phosphate 10 mg/ml injection (6 sources) Corticosteroid Start: 02-23-2025 End: 02-23-2025 10 mg, INTRAVENOUS, ONCE, 1 dose, On Fri02/23/25 at 1030, Administer IV doses up to 10 mg over 5 minutes. Administer doses > 10 mg over 15 to 30 minutes. Start: 02-16-2025 End: 02-16-2025 10 mg, INTRAVENOUS, ONCE, 1 dose, On Fri02/16/25 at 1130, Administer IV doses up to 10 mg over 5 minutes. Administer doses > 10 mg over 15 to 30 minutes. Start: 02-09-2025 End: 02-09-2025 10 mg, INTRAVENOUS, ONCE, 1 dose, On Fri02/09/25 at 0800, Administer IV doses up to 10 mg over 5 minutes. Administer doses > 10 mg over 15 to 30 minutes. Start: 02-01-2025 End: 02-01-2025 10 mg, INTRAVENOUS, ONCE, 1 dose, On Fri02/01/25 at 1030, Administer over 5 minutes. Start: 01-25-2025 End: 01-25-2025 10 mg, INTRAVENOUS, ONCE, 1 dose, On Fri01/25/25 at 0900, Administer over 5 minutes. Start: 01-18-2025 End: 01-18-2025 10 mg, INTRAVENOUS, ONCE, 1 dose, On Fri01/18/25 at 0830, Administer over 5 minutes. 2 ml famotidine 10 mg/ml injection (19 sources) Histamine-2 Receptor Antagonist Start: 02-23-2025 End: 02-23-2025 20 mg, INTRAVENOUS, ONCE, 1 dose, On Fri02/23/25 at 1030, REFRIGERATE Start: 02-16-2025 End: 02-16-2025 20 mg, INTRAVENOUS, ONCE, 1 dose, On Fri02/16/25 at 1130, REFRIGERATE Start: 02-09-2025 End: 02-09-2025 20 mg, INTRAVENOUS, ONCE, 1 dose, On Fri02/09/25 at 0800, REFRIGERATE Start: 02-01-2025 End: 02-01-2025 20 mg, INTRAVENOUS, ONCE, 1 dose, On Fri02/01/25 at 1030, REFRIGERATE Start: 01-25-2025 End: 01-25-2025 20 mg, INTRAVENOUS, ONCE, 1 dose, On Fri01/25/25 at 0900, REFRIGERATE Start: 01-18-2025 End: 01-18-2025 20 mg, INTRAVENOUS, ONCE, 1 dose, On Fri01/18/25 at 0830, REFRIGERATE Start: 10-23-2021 End: 11-06-2021 take 1 tablet by mouth once daily Famotidine 20 mg tablet Discontinued 20 mg PO DAILY 8 0 October 23, 2021 12:00am November 06, 2021 11:05am take 1 tablet by bernarda th twice daily famotidine (PEPCID) 20 mg tablet Take 20 mg by mouth two times a day. Active flurbiprofen 100 mg oral tablet (2 sources) Nonsteroidal Anti-inflammatory Drug Start: 11-06-2021 End: 02-27-2025 take 1 tablet by mouth three times daily at mealtime for pain Flurbiprofen 100 mg tablet Discontinued 100 mg PO THREE TIMES A DAY as needed for headache or neck pain 90 0 November 20, 2021 9:53am February 27, 2025 10:32am take with food; do not take with other NSAIDs iv contrast (will be provided with radiology test) (12 sources) Start: 01-05-2025 End: 01-06-2025 iv contrast (will be provided with radiology test) Indications: Abnormal finding on radiological examination of breast MRI LT Breast Bx Inject, intravenously, once for 1 dose. No IV access, insert saline lock prior to the beginning of sedation, infusion, injection of imaging exam. Discontinue saline lock post exam. If Pt has a central line or IVAD, may access for administration according to line specific nursing protocol. Once exam is complete flush line and de-access according to line specific nursing protocol in the MR contrast administration guidelines link 1 each 01/05/2025 01/06/2025 Start: 01-05-2025 End: 01-06-2025 iv contrast (will be provide d with radiology test) Indications: Abnormal finding on radiological examination of breast MRI LT Breast Bx Inject, intravenously, once for 1 dose. No IV access, insert saline lock prior to the beginning of sedation, infusion, injection of imaging exam. Discontinue saline lock post exam. If Pt has a central line or IVAD, may access for administration according to line specific nursing protocol. Once exam is complete flush line and de-access according to line specific nursing protocol in the MR contrast administration guidelines link 1 each 01/05/2025 01/06/2025 Active Start: 12-20-2024 End: 12-21-2024 iv contrast (will be provide d with radiology test) MRI Liver Inject, intravenously, once for 1 dose. No IV access, insert saline lock prior to the beginning of sedation, infusion, injection of imaging exam. Discontinue saline lock post exam. If Pt. has a central line or IVAD, may access for administration according to line specific nursing protocol. Once exam is complete flush line and de-access according to line specific nursing protocol in the MR contrast administration guidelines link. 1 each 12/20/2024 12/21/2024 Active Start: 12-20-2024 End: 12-21-2024 iv contrast (will be provide d with radiology test) MRI Breast JACINTO Inject, intravenously, once for 1 dose. No IV access, insert saline lock prior to the beginning of sedation, infusion, injection of imaging exam. Discontinue saline lock post exam. If Pt has a central line or IVAD, may access for administration according to line specific nursing protocol. Once exam is complete flush line and de-access according to line specific nursing protocol in the MR contrast administration guidelines link 1 each 12/20/2024 12/21/2024 Active Start: 12-08-2024 End: 12-09-2024 iv contrast (will be provide d with radiology test) CT ABD/PEL -Inject, intravenously, once for 1 dose.No IV access, insert saline lock prior to the beginning of sedation, infusion, injection of imaging exam. Discontinue saline lock post exam. If Pt. has a central line or IVAD, may access for administration according to line specific nursing protocol. Once exam is complete flush line and de-access according to line specific nursing protocol in the CT contrast administration guidelines link. 1 each 12/08/2024 12/09/2024 Active lisinopril 5 mg oral tablet (20 sources) Angiotensin Converting Enzyme Inhibitor Start: 06-25-2024 End: 02-27-2025 take 1 tablet by mouth once daily Lisinopril 5 mg tablet Discontinued 5 mg PO DAILY June 25, 2024 1:00am February 27, 2025 10:32am Start: 05-28-2024 lisinopril 5 m g oral tablet Dose : 5 mg = 1 tab(s), Oral, qDay, sart in 1 week if sBP >130 or dBP >80, # 30 tab(s), 6 Refill(s), Pharmacy: [facility] #[id number], 165.1, cm, 05/28/24 8:19:00 EDT, Height, kg, 10/18/24 8:19:00 EDT, Dosing Weight Start Date: 05/28/24 Status: Ordered Start: 10-28-2023 lisinopril 10 mg oral tablet Dose : 10 mg = 1 tab(s), Oral, qDay, # 30 tab(s), 0 Refill(s), Pharmacy: [facility]/pharmacy #[id number], 165, cm, 06/26/23 8:39:00 EST, Height, kg, 06/26/23 8:39:00 EST, Dosing Weight Start Date: 10/28/23 Status: Ordered take 2.5 mg by mouth once daily lisinopril (ZESTRIL) 5 mg tablet Take 2.5 mg by mouth once daily. Active melatonin 5 mg oral capsule (1 source) Start: 11-06-2021 End: 06-25-2024 take 1 mg by mouth at bedtime as needed Melatonin 5 mg capsule Discontinued mg PO BEDTIME as needed November 06, 2021 12:00am June 25, 2024 2:21pm ondansetron 4 mg oral tablet (1 source) Serotonin-3 Receptor Antagonist Start: 10-23-2021 End: 11-06-2021 take 1 tablet by mouth three times daily as needed for nausea and vomiting Ondansetron Hcl 4 mg tablet Discontinued 4 mg PO THREE TIMES A DAY as needed for nausea and vomiting 90 0 October 23, 2021 12:00am November 06, 2021 11:12am PACLitaxel 149.58 mg in NaCl 0.9% 299.93 mL (TAXOL) (6 sources) Start: 02-23-2025 End: 02-23-2025 149.58 mg (rounded from 149.6 mg = 80 mg/m2 1.87 m2 Treatment Plan BSA from Recorded weight), INTRAVENOUS, at 299.93 mL/hr, Administer over 1 Hours, ONCE, 1 dose, On Fri02/23/25 at 1100, exp 03/04/25 @ (refrigerated) Hazardous Chemotherapy Drug: Use appropriate PPE. Antineoplastic Irritant with Vesicant Potential. Administer with non-DEHP 0.2 micron filter and tubing. Start: 02-16-2025 End: 02-16-2025 149.58 mg (rounded from 149. 6 mg = 80 mg/m2 1.87 m2 Treatment Plan BSA from Recorded weight), INTRAVENOUS, at 299.93 mL/hr, Administer over 1 Hours, ONCE, 1 dose, On Fri02/16/25 at 1200, exp 1400 02/25/25 (refrigerated) Hazardous Chemotherapy Drug: Use appropriate PPE. Antineoplastic Irritant with Vesicant Potential. Administer with non-DEHP 0.2 micron filter and tubing. Start: 02-09-2025 End: 02-09-2025 149.58 mg (rounded from 149. 6 mg = 80 mg/m2 1.87 m2 Treatment Plan BSA from Recorded weight), INTRAVENOUS, at 299.93 mL/hr, Administer over 1 Hours, ONCE, 1 dose, On Fri02/09/25 at 0900, Approx Total Volume - Expires: 02/10/25 @ 1400 Hazardous Chemotherapy Drug: Use appropriate PPE. Antineoplastic Irritant with Vesicant Potential. Administer with non-DEHP 0.2 micron filter and tubing. Start: 02-01-2025 End: 02-01-2025 149.58 mg (rounded from 149. 6 mg = 80 mg/m2 1.87 m2 Treatment Plan BSA from Recorded weight), INTRAVENOUS, at 299.93 mL/hr, Administer over 1 Hours, ONCE, 1 dose, On Fri02/01/25 at 1100, Approx Total Volume - Expires: 02/02/25 @ 1635 Hazardous Chemotherapy Drug: Use appropriate PPE. Antineoplastic Irritant with Vesicant Potential. Administer with non-DEHP 0.2 micron filter and tubing. Start: 01-25-2025 End: 01-25-2025 149.58 mg (rounded from 149. 6 mg = 80 mg/m2 1.87 m2 Treatment Plan BSA from Recorded weight), INTRAVENOUS, at 299.93 mL/hr, Administer over 1 Hours, ONCE, 1 dose, On Fri01/25/25 at 0930, exp 0900 02/04/25 (refrigerated) Hazardous Chemotherapy Drug: Use appropriate PPE. Antineoplastic Irritant with Vesicant Potential. Administer with non-DEHP 0.2 micron filter and tubing. Start: 01-18-2025 End: 01-18-2025 149.58 mg (rounded from 149. 6 mg = 80 mg/m2 1.87 m2 Treatment Plan BSA from Recorded weight), INTRAVENOUS, at 299.93 mL/hr, Administer over 1 Hours, ONCE, 1 dose, On Fri01/18/25 at 0930, exp 159901/19/25 (room temp) Hazardous Chemotherapy Drug: Use appropriate PPE. Antineoplastic Irritant with Vesicant Potential. Administer with non-DEHP 0.2 micron filter and tubing. 5 ml palonosetron 0.05 mg/ml injection (6 sources) Serotonin-3 Receptor Antagonist Start: 02-23-2025 End: 02-23-2025 0.25 mg, INTRAVENOUS, ONCE, 1 dose, On Fri02/23/25 at 1030, Flush IV line with NS prior to and following administration. Start: 02-16-2025 End: 02-16-2025 0.25 mg, INTRAVENOUS, ONCE, 1 dose, On Fri02/16/25 at 1130, Flush IV line with NS prior to and following administration. Start: 02-09-2025 End: 02-09-2025 0.25 mg, INTRAVENOUS, ONCE, 1 dose, On Fri02/09/25 at 0800, Flush IV line with NS prior to and following administration. Start: 02-01-2025 End: 02-01-2025 0.25 mg, INTRAVENOUS, ONCE, 1 dose, On Fri02/01/25 at 1030, Flush IV line with NS prior to and following administration. Start: 01-25-2025 End: 01-25-2025 0.25 mg, INTRAVENOUS, ONCE, 1 dose, On Fri01/25/25 at 0900, Flush IV line with NS prior to and following administration. Start: 01-18-2025 End: 01-18-2025 0.25 mg, INTRAVENOUS, ONCE, 1 dose, On Fri01/18/25 at 0830, Flush IV line with NS prior to and following administration. pembrolizumab 200 mg in NaCl 0.9% 66 mL (KEYTRUDA) (2 sources) Start: 02-09-2025 End: 02-09-2025 200 mg, INTRAVENOUS, Adminis ter over 30 Minutes, ONCE, 1 dose, On Fri02/09/25 at 0830, Approx Total Volume - Expires: 02/09/25 @ 1410 Administer with 0.2 micron filter. Start: 01-18-2025 End: 01-18-2025 200 mg, INTRAVENOUS, Adminis ter over 30 Minutes, ONCE, 1 dose, On Fri01/18/25 at 0900, Approx Total Volume:exp 1500 01/18/25 (room temp) Administer with 0.2 micron filter. predniSONE 10 mg oral tablet (1 source) Start: 10-23-2021 End: 11-06-2021 Prednisone 10 mg tablet Discontinued 0 .Route .COMPLEX 33 0 October 23, 2021 12:00am November 06, 2021 11:12am 6 tabs x 3 days; 5 tabs x 1 day; 4 tabs x 1 day; 3 tabs x 1 day; 2 tabs x 1 day; 1 tab x 1 day tiZANidine 4 mg oral tablet (6 sources) Central alpha-2 Adrenergic Agonist Start: 11-20-2021 End: 06-25-2024 tiZANidine 4 mg oral tablet Dose : 4 mg = 1 tab(s), Oral, Daily, PRN Headache, PLEASE SEE ATTACHED FOR DETAILED DIRECTIONS, # 30 tab(s), 0 Refill(s), [facility]acy: [facility] #[id number], 165, cm, 02/02/24 10:34:00 EDT, Height, kg, 02/02/24 10:34:00 EDT, Dosing Weight Start Date: 02/02/24 Stop Date: 03/03/24 Status: Ordered Irezozil-Ntqk-Kxfi f-Qnok-Cpkmu 100 mg-150 mg- 50 mg-150 mg capsule (1 source) Start: 07-03-2021 End: 06-25-2024 Tfpmggqq-Ysit-Ppbcq -Oreg-Capry 100 mg-150 mg- 50 mg-150 mg capsule Discontinued NMA PO July 03, 2021 1:00am June 25, 2024 2:22pm zinc sulfate 66 mg oral tablet (1 source) Start: 07-03-2021 End: 06-25-2024 take 1 tablet by mouth once daily Zinc Sulfate (Zinc-15) 66 mg tablet Discontinued 66 mg PO DAILY July 03, 2021 1:00am June 25, 2024 2:22pm Problems Active Problems Problem Classification Problem Date Documented Da te Episodic/Chronic Administrative/social admission (1 source) Patient encounter status; Translations: [Counseling, unspecified] 01-17-2025 Episodic Allergic reactions (1 source) Environmental allergy; Translations: [Other allergy status, other than to drugs and biological substances] 07-03-2021 Episodic Cancer of breast (20 sources) Primary malignant neoplasm of breast; Translations: [Malignant neoplasm of breast upper inner quadrant] Onset: 5 12-08-2024 Chronic Cancer of breast (2 sources) History of malignant neoplasm of breast; Translations: [Personal history of malignant neoplasm of breast] 02-22-2025 Episodic Disorders of lipid metabolism (16 sources) Mixed hyperlipidemia; Translations: [Dyslipidemia] Onset: 4 05-10-2020 Chronic Esophageal disorders (1 source) Gastroesophageal reflux disease; Translations: [Gastro-esophageal reflux disease without esophagitis] 11-06-2021 Chronic Essential hypertension (7 sources) Hypertensive disorder; Translations: [Essential (primary) hypertension] Onset: 4 11-04-2023 Chronic Headache; including migraine (12 sources) Headache; Translations: [Occipital headache] 10-18-2021 Episodic Hemorrhoids (1 source) Hemorrhoids; Translations: [Unspecified hemorrhoids] 07-03-2021 Episodic Immunizations and screening for infectious disease (1 source) Contact with and (suspected) exposure to other viral communicable diseases; Translations: [Contact with or suspected exposure to other viral communicable disease] 07-03-2021 Episodic Intestinal obstruction without hernia (1 source) Fecal impaction; Translations: [Fecal impaction of rectum] 02-27-2025 Episodic Lymphadenitis (20 sources) Lymphadenopathy; Translations: [Enlarged lymph nodes, unspecified] Onset: 5 01-11-2025 Episodic Malaise and fatigue (4 sources) Malaise and fatigue; Translations: [Other malaise] Onset: 5 01-18-2025 Episodic Menopausal disorders (9 sources) Menopausal syndrome 10-16-2022 Chronic Nonmalignant breast conditions (3 sources) Lump in upper inner quadrant of left breast; Translations: [Unspecified lump in the left breast, upper inner quadrant] Onset: 5 12-09-2024 Episodic Osteoporosis (1 source) Primary osteoporosis; Translations: [Age-related osteoporosis without current pathological fracture] Chronic Other circulatory disease (1 source) H/O: hypertension; Translations: [Personal history of other diseases of the circulatory system] 05-31-2019 Episodic Other connective tissue disease (1 source) Spasm of cervical paraspinous muscle; Translations: [Other muscle spasm] 11-20-2021 Episodic Other ear and sense organ disorders (10 sources) Tinnitus 10-17-2021 Episodic Other endocrine disorders (2 sources) Hypoadrenalism; Translations: [Unspecified adrenocortical insufficiency] 01-18-2025 Chronic Other endocrine disorders (1 source) Unspecified adrenocortical insufficiency; Translations: [Hypoadrenalism (HCC)] Onset: Chronic Other eye disorders (1 source) Pain in eye; Translations: [Ocular pain, left eye] 06-01-2019 Episodic Other female genital disorders (3 sources) Polyp of corpus uteri; Translations: [Polyp of corpus uteri] Onset: 5 01-17-2025 Episodic Other gastrointestinal disorders (1 source) Diarrhea; Translations: [Diarrhea, unspecified] 12-08-2024 Episodic Other liver diseases (1 source) Lesion of liver; Translations: [Liver disease, unspecified] 01-06-2025 Chronic Other liver diseases (1 source) Liver disease, unspecified; Translations: [Lesion of liver greater than 1 cm in diameter] Onset: Chronic Other lower respiratory disease (6 sources) Multiple nodules of lung; Translations: [Other nonspecific abnormal finding of lung field] 01-04-2025 Episodic Other lower respiratory disease (1 source) Other nonspecific abnormal finding of lung field; Translations: [Lung nodules] Onset: Episodic Other screening for suspected conditions (not mental disorders or infectious disease) (5 sources) Endometrium thickened; Translations: [Abnormal findings on diagnostic imaging of other specified body structures] Onset: 5 01-04-2025 Chronic Other upper respiratory disease (1 source) Seasonal allergy; Translations: [Other seasonal allergic rhinitis] 07-03-2021 Chronic Residual codes; unclassified (6 sources) Flushing 11-04-2023 Episodic Residual codes; unclassified (2 sources) Estrogen receptor negative status [ER-]; Translations: [Malignant neoplasm of upper-inner quadrant of left breast in female, estrogen receptor negative (HCC)] Onset: 05-26-202 5 Episodic Retinal detachments; defects; vascular occlusion; and retinopathy (10 sources) Retinal detachment 10-17-2021 Episodic Spondylosis; intervertebral disc disorders; other back problems (7 sources) Cervico-occipital neuralgia; Translations: [Occipital neuralgia] 02-02-2024 Episodic Syncope (1 source) Vasovagal symptom; Translations: [Syncope and collapse] 02-27-2025 Episodic Thyroid disorders (3 sources) Acquired hypothyroidism; Translations: [Hypothyroidism, unspecified] Onset: 5 01-18-2025 Chronic Unclassified (20 sources) Patient encounter status 10-16-2022 Unclassified (1 source) Endometrial polyp 01-18-2025 Unclassified (1 source) 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); Translations: [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)] Onset: 5 Unclassified (1 source) Consult Onset: Past or Other Problems Problem Classification Problem Date Documented Date Episodic/Chronic Nonspecific chest pain (13 sources) Chest pain; Translations: [Atypical chest pain] Onset: 06-18-2024 05-24-2024 Episodic Other nervous system disorders (2 sources) Paresthesia of skin; Translations: [Paresthesia of skin] Onset: 06-18-2024 Episodic Other screening for suspected conditions (not mental disorders or infectious disease) (18 sources) Electrocardiogram abnormal; Translations: [Left axis deviation] Onset: 06-18-2024 05-24-2024 Episodic Results Test Name Value Interpretation Reference Range Facility [facility] 02-24-2025 [facility] Telephone (AMY) LIZ ROBLES ([id number]) 1955 F Date Time Provider Department 02/24/25 OR[place] MARTINEZ During your visit today, we recorded the following information about you: Thais Cochran 02/24/2025 1:57 PM Signed Please advise of treatment after 04/06. Appointment notes state after C4-4 of Q3WK CARBO/TAXOL/KEYTRUDA, patient should have Keytruda/Onpro only. [place] orders differ. Please advise for scheduling. Thank you. Jennifer Burk RN 02/24/2025 2:15 PM Signed Patient will go onto adriamycin, cytoxan, keytruda, AND neulasta Q21 days x 4 cycles. EVERT [place] 02/24/2025 3:02 PM Signed Thank you. Allergies As of Date: 02/24/2025 Noted Allergy Reaction UBINCKH-EWN-HAZ REDUCTASE INHIBIT*12/13/2024 17 - Myalgia Date Reviewed: 02/23/2025 Reviewed by: Mendoza Zeng RN - Fully Assessed Reason for Visit: Chemotherapy Treatment [771] Prescriptions as of 02/24/2025 - gabapentin (NEURONTIN) 100 mg capsule Take 2 capsules by mouth three times a day for 30 days. - lidocaine-prilocaine (EMLA) 2.5-2.5 % cream Apply 1 application to affected area as needed. - acetaminophen (TYLENOL) 325 mg cap Take 2 capsules by mouth once daily as needed for pain. - famotidine (PEPCID) 20 mg tablet Take 20 mg by mouth two times a day. - prochlorperazine (COMPAZINE) 10 mg tablet Take 1 tablet by mouth every 6 hours as needed. - lisinopril (ZESTRIL) 5 mg tablet Take 2.5 mg by mouth once daily. - omeprazole (PRILOSEC) 40 mg capsule Take 40 mg by mouth once daily. Problem List As Of Date 02/24/2025 Noted Resolved Malignant neoplasm of upper-inner quadrant of l*01/03/2025 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) [C50.919, Z*01/03/2025 Enlarged lymph node [R59.9] 01/11/2025 Encounter Status:Closed by THAIS COCHRAN on 02/24/25 Normal [facility] CBC W Auto Differential pane l (Bld)on 02-23-2025 Basophils (Bld) [#/Vol] 0.03 10*3/uL NINF [facility] Basophils/100 WBC (Bld) 1.1 % [facility] Differential cell count method Nom (Bld) Auto [facility] Eosinophils (Bld) [#/Vol] [facility] Eosinophils/100 WBC (Bld) 0.7 % [facility] Erythrocyte distribution width (RBC) [Ratio] 12.3 % 11.5 - 15.0 % [facility] Hematocrit (Bld) [Volume fraction] 33.1 % Low 36.0 - 46.0 % [facility] Hemoglobin (Bld) [Mass/Vol] 11.7 g/dL 11.5 - 15.5 g/dL [facility] Immature granulocytes (Bld) [#/Vol] [facility] Immature granulocytes/100 WBC (Bld) 0.4 % [facility] Interpretation and review of laboratory results Abnormal [facility] Lymphocytes (Bld) [#/Vol] 1.32 10*3/uL [facility] Lymphocytes/100 WBC (Bld) 48 % [facility] MCH (RBC) [Entitic mass] 33.7 pg 26.0 - 34.0 pg [facility] MCHC (RBC) [Mass/Vol] 35.3 g/dL 30.5 - 36.0 g/dL [facility] MCV (RBC) [Entitic vol] 95.4 fL 80.0 - 100.0 fL [facility] Monocytes (Bld) [#/Vol] 0.14 10*3/uL [facility] Monocytes/100 WBC (Bld) 5.1 % [facility] Neutrophils (Bld) [#/Vol] 1.23 10*3/uL Low [facility] Neutrophils/100 WBC (Bld) 44.7 % [facility] Nucleated RBC (Bld) [#/Vol] [facility] Nucleated RBC/100 WBC (Bld) [Ratio] 0 % /100 WBC [facility] Platelet mean volume (Bld) [Entitic vol] 9.4 fL 9.0 - 12.7 fL [facility] Platelets (Bld) [#/Vol] 115 10*3/uL Low [facility] RBC (Bld) [#/Vol] 3.47 10*6/uL Low 3.90 - 5.2 0 m/uL [facility] WBC (Bld) [#/Vol] 2.75 10*3/uL Low [facility] Basophils (Bld) [#/Vol] 0.03 10*3/uL Normal <0.11 [facility] Comment on above: Order Comment: Speci men Type: BLOOD SPECIMENOrdering Facility: [facility] Address: [address] [place] [address] Performed By: #### 5 7021-8 ####[facility]ENTER[facility]IA [id number] [place] [address] [place] Basophils/100 WBC (Bld) 1.1 % Normal [facility] Comment on above: Order Comment: Speci men Type: BLOOD SPECIMENOrdering Facility: [facility] Address: [address] [place] [address] Performed By: #### 5 7021-8 ####[facility] [id number] [place] [address] [place] Differential cell count method Nom (Bld) Auto Normal [facility] Comment on above: Order Comment: Speci men Type: BLOOD SPECIMENOrdering Facility: [facility] Address: [address] [place] [address] Performed By: #### 5 7021-8 ####[facility] [id number] [place] [address] [place] Eosinophils (Bld) [#/Vol] 10*3/uL Normal <0.46 [facility] Comment on above: Order Comment: Speci men Type: BLOOD SPECIMENOrdering Facility: [facility] Address: [address] [place] [address] Performed By: #### 5 7021-8 ####[facility]ENTER[facility] [id number] [place] [address] [place] Eosinophils/100 WBC (Bld) 0.7 % Normal [facility] Comment on above: Order Comment: Speci men Type: BLOOD SPECIMENOrdering Facility: [facility] Address: [address] [place] [address] Performed By: #### 5 7021-8 ####[facility]ENTERLIA [id number] [place] [address] [place] Erythrocyte distribution width (RBC) [Ratio] 12.3 % Normal 11.5-15.0 [facility] Comment on above: Order Comment: Speci men Type: BLOOD SPECIMENOrdering Facility: [facility] Address: [address] [place] [address] Performed By: #### 5 7021-8 ####[facility] [id number] [place] [address] [place] Hematocrit (Bld) [Volume fraction] 33.1 % Low 36.0-46.0 [facility] Comment on above: Order Comment: Speci men Type: BLOOD SPECIMENOrdering Facility: [facility] Address: [address] [place] [address] Performed By: #### 5 7021-8 ####[facility] [id number] [place] [address] [place] Hemoglobin (Bld) [Mass/Vol] 11.7 g/dL Normal 11.5-15.5 [facility] Comment on above: Order Comment: Speci men Type: BLOOD SPECIMENOrdering Facility: [facility] Address: [address] [place] [address] Performed By: #### 5 7021-8 ####[facility] [id number] [place] [address] [place] Immature granulocytes (Bld) [#/Vol] 10*3/uL Normal <0.10 [facility] Comment on above: Order Comment: Speci men Type: BLOOD SPECIMENOrdering Facility: [facility] Address: [address] [place] [address] Performed By: #### 5 7021-8 ####[facility] [id number] [place] [address] [place] Immature granulocytes/100 WBC (Bld) 0.4 % Normal [facility] Comment on above: Order Comment: Speci men Type: BLOOD SPECIMENOrdering Facility: [facility] Address: [address] [place] [address] Performed By: #### 5 7021-8 ####[facility] [id number] [place] [address] [place] Lymphocytes (Bld) [#/Vol] 1.32 10*3/uL Normal 1.00-4.00 [facility] Comment on above: Order Comment: Speci men Type: BLOOD SPECIMENOrdering Facility: [facility] Address: [address] [place] [address] Performed By: #### 5 7021-8 ####[facility] [id number] [place] [address] [place] Lymphocytes/100 WBC (Bld) 48.0 % Normal [facility] Comment on above: Order Comment: Speci men Type: BLOOD SPECIMENOrdering Facility: [facility] Address: [address] [place] [address] Performed By: #### 5 7021-8 ####[facility] [id number] [place] [address] [place] MCH (RBC) [Entitic mass] 33.7 pg Normal 26.0-34.0 [facility] Comment on above: Order Comment: Speci men Type: BLOOD SPECIMENOrdering Facility: [facility] Address: [address] [place] [address] Performed By: #### 5 7021-8 ####[facility] [id number] [place] [address] [place] MCHC (RBC) [Mass/Vol] 35.3 g/dL Normal 30.5-36.0 [facility] Comment on above: Order Comment: Speci men Type: BLOOD SPECIMENOrdering Facility: [facility] Address: [address] [place] [address] Performed By: #### 5 7021-8 ####[facility] IVONNEADRIANNE [id number] [place] [address] [place] MCV (RBC) [Entitic vol] 95.4 fL Normal 80.0-100.0 [facility] Comment on above: Order Comment: Speci men Type: BLOOD SPECIMENOrdering Facility: [facility] Address: [address] [place] [address] Performed By: #### 5 7021-8 ####[facility]ITALNCA [id number] [place] [address] [place] Monocytes (Bld) [#/Vol] 0.14 10*3/uL Normal <0.87 [facility] Comment on above: Order Comment: Speci men Type: BLOOD SPECIMENOrdering Facility: [facility] Address: [address] [place] [address] Performed By: #### 5 7021-8 ####[facility]ITALNCLIA [id number] [place] [address] [place] Monocytes/100 WBC (Bld) 5.1 % Normal [facility] Comment on above: Order Comment: Speci men Type: BLOOD SPECIMENOrdering Facility: [facility] Address: [address] [place] [address] Performed By: #### 5 7021-8 ####[facility]ITALNCLIA [id number] [place] [address] [place] Neutrophils (Bld) [#/Vol] 1.23 10*3/uL Low 1.45-7.50 [facility] Comment on above: Order Comment: Speci men Type: BLOOD SPECIMENOrdering Facility: [facility] Address: [address] [place] [address] Performed By: #### 5 7021-8 ####[facility] MILLWNCLIA [id number] [place] [address] [place] Neutrophils/100 WBC (Bld) 44.7 % Normal [facility] Comment on above: Order Comment: Speci men Type: BLOOD SPECIMENOrdering Facility: [facility] Address: [address] [place] [address] Performed By: #### 5 7021-8 ####[facility]ENTERLIA [id number] [place] [address] [place] Nucleated RBC (Bld) [#/Vol] 10*3/uL Normal <0.01 [facility] Comment on above: Order Comment: Speci men Type: BLOOD SPECIMENOrdering Facility: [facility] Address: [address] [place] [address] Performed By: #### 5 7021-8 ####[facility] [id number] [place] [address] [place] Nucleated RBC/100 WBC (Bld) [Ratio] 0.0 /100 WBC Normal [facility] Comment on above: Order Comment: Speci men Type: BLOOD SPECIMENOrdering Facility: [facility] Address: [address] [place] [address] Performed By: #### 5 7021-8 ####[facility] [id number] [place] [address] [place] Platelet mean volume (Bld) [Entitic vol] 9.4 fL Normal 9.0-12.7 [facility] Comment on above: Order Comment: Speci men Type: BLOOD SPECIMENOrdering Facility: [facility] Address: [address] [place] [address] Performed By: #### 5 7021-8 ####[facility]ITALNCLIA [id number] [place] [address] [place] Platelets (Bld) [#/Vol] 115 10*3/uL Low 150-400 [facility] Comment on above: Order Comment: Speci men Type: BLOOD SPECIMENOrdering Facility: [facility] Address: [address] [place] [address] Performed By: #### 5 7021-8 ####[facility]ITALNCLIA [id number] [place] [address] [place] RBC (Bld) [#/Vol] 3.47 10*6/uL Low 3.90-5.20 [facility] Comment on above: Order Comment: Speci men Type: BLOOD SPECIMENOrdering Facility: [facility] Address: [address] [place] [address] Performed By: #### 5 7021-8 ####[facility]ITAL[facility]CL[facility] [id number] [place] [address] [place] WBC (Bld) [#/Vol] 2.75 10*3/uL Low 3.70-11.00 [facility] Comment on above: Order Comment: Speci men Type: BLOOD SPECIMENOrdering Facility: [facility] Address: [address] [place] [address] Performed By: #### 5 7021-8 ####[facility]ITAL[facility]CLIA [id number] [place] [address] [place] Comprehensive metabolic 2000 panelOrdered By: Mer Velazquez on 02-23-2025 Albumin [Mass/Vol] 4 g/dL 3.9 - 4.9 g/dL [facility] ALP [Catalytic activity/Vol] 62 U/L 34 - 123 U/L [facility] ALT [Catalytic activity/Vol] 26 U/L 7 - 38 U/L [facility] Anion gap [Moles/Vol] 9 mmol/L 8 - 15 mmol/L [facility] AST [Catalytic activity/Vol] 18 U/L 13 - 35 U/L [facility] Bilirubin [Mass/Vol] 0.5 mg/dL 0.2 - 1 .3 mg/dL [facility] Calcium [Mass/Vol] 9.8 mg/dL 8.5 - 10. 2 mg/dL [facility] Chloride [Moles/Vol] 106 mmol/L 98 - 10 7 mmol/L [facility] CO2 [Moles/Vol] 24 mmol/L 22 - 30 mmol/L [facility] Creatinine [Mass/Vol] 0.75 mg/dL 0.58 - 0.96 mg/dL [facility] GFR/1.73 sq M.predicted among non-blacks MDRD (S/P/Bld) [Vol rate/Area] 86 mL/min/{1.73_m2} - PINF [facility] Comment on above: Estimated Glomerular Filtration Rate (eGFR) is calculated using the 2020 CKD-EPI creatinine equation. This equation utilizes serum creatinine, sex, and age as parameters. The creatinine assay has traceable calibration to isotope dilution-mass spectrometry. Refer to KDIGO guidelines for clinical interpretation. In patients with unstable renal function, e.g. those with acute kidney injury, the eGFR may not accurately reflect actual GFR. Glucose [Mass/Vol] 113 mg/dL High 74 - 99 mg/dL [facility] Comment on above: The [place] [employer] (ADA) provides guidance for cutoff values for fasting glucose and random glucose. The ADA defines fasting as no caloric intake for at least 8 hours. Fasting plasma glucose results between 100 to 125 mg/dL indicate increased risk for diabetes (prediabetes). Fasting plasma glucose results greater than or equal to 126 mg/dL meet the criteria for diagnosis of diabetes. In the absence of unequivocal hyperglycemia, results should be confirmed by repeat testing. In a patient with classic symptoms of hyperglycemia or hyperglycemic crisis, random plasma glucose results greater than or equal to 200 mg/dL meet the criteria for diagnosis of diabetes. Reference: Standards of Medical Care in Diabetes 2016, [place] [employer]. Diabetes Care. 2016.39(Suppl 1). Interpretation and review of laboratory results Abnormal [facility] Potassium [Moles/Vol] 3.8 mmol/L 3.7 - 5.1 mmol/L [facility] Protein [Mass/Vol] 6.3 g/dL 6.3 - 8.0 g/dL [facility] Sodium [Moles/Vol] 139 mmol/L 136 - 144 mmol/L [facility] Urea nitrogen [Mass/Vol] 16 mg/dL 7 - 21 mg/dL [facility] metabolic 2000 panelon 02-23-2025 Albumin [Mass/Vol] 4.0 g/dL Normal 3.9-4.[address] [facility] Comment on above: Order Comment: Speci men Type: BLOOD SPECIMENOrdering Facility: [facility] Address: [address] [place] [address] Performed By: #### 2 4323-8, ####[facility] MILLTOWANGIELIA [id number] [place] [address] [place] ALP [Catalytic activity/Vol] 62 U/L Normal 34-123 [facility] Comment on above: Order Comment: Speci men Type: BLOOD SPECIMENOrdering Facility: [facility] Address: [address] [place] [address] Performed By: #### 2 4323-8, ####[facility] CHARLOTTEWANGIELIA [id number] [place] [address] [place] ALT [Catalytic activity/Vol] 26 U/L Normal 7-38 [facility] Comment on above: Order Comment: Speci men Type: BLOOD SPECIMENOrdering Facility: [facility] Address: [address] [place] [address] Performed By: #### 2 4323-8, ####[facility]WANGIELIA [id number] [place] [address] [place] Anion gap [Moles/Vol] 9 mmol/L Normal 8-15 [facility] Comment on above: Order Comment: Speci men Type: BLOOD SPECIMENOrdering Facility: [facility] Address: [address] [place] [address] Performed By: #### 2 4323-8, 25849-0 ####[facility] MILLWNCLIA [id number] [place] [address] [place] AST [Catalytic activity/Vol] 18 U/L Normal 13-35 [facility] Comment on above: Order Comment: Speci men Type: BLOOD SPECIMENOrdering Facility: [facility] Address: [address] [place], [place] [id number] Performed By: #### 2 4323-8, ####[facility] HOSPITALNCSANCHEZ [id number] [place] [address] [place] Bilirubin [Mass/Vol] 0.5 mg/dL Normal 0.2-1.3 [facility] Comment on above: Order Comment: Speci men Type: BLOOD SPECIMENOrdering Facility: [facility] Address: [address] [place] [address] Performed By: #### 2 4323-8, ####[facility]ITALNCMO[facility] [id number] [place] [address] [place] Calcium [Mass/Vol] 9.8 mg/dL Normal 8.5-10.[address] [facility] Comment on above: Order Comment: Speci men Type: BLOOD SPECIMENOrdering Facility: [facility] Address: [address] [place] [address] Performed By: #### 2 4323-8, ####[facility] HOSPITALNCSANCHEZA [id number] [place] [address] [place] Chloride [Moles/Vol] 106 mmol/L Normal 98-107 [facility] Comment on above: Order Comment: Speci men Type: BLOOD SPECIMENOrdering Facility: [facility] Address: [address] [place] [address] Performed By: #### 2 4323-8, ####[facility] HOSPITALNCLIA [id number] [place] [address] [place] CO2 [Moles/Vol] 24 mmol/L Normal 22-30 [facility] Comment on above: Order Comment: Speci men Type: BLOOD SPECIMENOrdering Facility: [facility] Address: [address] [place] [address] Performed By: #### 2 4323-8, ####[facility] IVONNETRINITYNCLIA [id number] [place] [address] [place] Creatinine [Mass/Vol] 0.75 mg/dL Normal 0.58-0.96 [facility] Comment on above: Order Comment: Speci men Type: BLOOD SPECIMENOrdering Facility: [facility] Address: [address] [place] [address] Performed By: #### 2 4323-8, ####[facility]OSPITALNCLIA [id number] [place] [address] [place] eGFRcr SerPlBld CKD-EPI 2020 86 mL/min/1.73m??? Normal >=60 [facility] Comment on above: Order Comment: Cam men Type: BLOOD SPECIMENOrdering Facility: [facility] Address: [address] [place] [address] Result Comment: Coco mated Glomerular Filtration Rate (eGFR) is calculated using the 2020 CKD-EPI creatinine equation. This equation utilizes serum creatinine, sex, and age as parameters. The creatinine assay has traceable calibration to isotope dilution-mass spectrometry. Refer to KDIGO guidelines for clinical interpretation. In patients with unstable renal function, e.g. those with acute kidney injury, the eGFR may not accurately reflect actual GFR. Performed By: #### 2 4323-8, ####[facility] CENTERLIA [id number] [place] [address] [place] Glucose [Mass/Vol] 113 mg/dL High 74-[address] [facility] Comment on above: Order Comment: Cam silva Type: BLOOD SPECIMENOrdering Facility: [facility] Address: [address] [place] [address] Result Comment: The [place] Diabetes Association (ADA) provides guidance for cutoff values for fasting glucose and random glucose. The ADA defines fasting as no caloric intake for at least 8 hours. Fasting plasma glucose results between 100 to 125 mg/dL indicate increased risk for diabetes (prediabetes). Fasting plasma glucose results greater than or equal to 126 mg/dL meet the criteria for diagnosis of diabetes. In the absence of unequivocal hyperglycemia, results should be confirmed by repeat testing. In a patient with classic symptoms of hyperglycemia or hyperglycemic crisis, random plasma glucose results greater than or equal to 200 mg/dL meet the criteria for diagnosis of diabetes. Reference: Standards of Medical Care in Diabetes 2016, [place] [employer]. Diabetes Care. 2016.39(Suppl 1). Performed By: #### 2 4323-8, ####[facility] HOSPITALHAYDEN [id number] [place] [address] [place] Potassium [Moles/Vol] 3.8 mmol/L Normal 3.7-5.1 [facility] Comment on above: Order Comment: Speci men Type: BLOOD SPECIMENOrdering Facility: [facility] Address: [address] [place] [address] Performed By: #### 2 4323-8, ####[facility] CENTERA [id number] [place] [address] [place] Protein [Mass/Vol] 6.3 g/dL Normal 6.3-8.[address] [facility] Comment on above: Order Comment: Speci men Type: BLOOD SPECIMENOrdering Facility: [facility] Address: [address] [place] [address] Performed By: #### 2 4323-8, ####[facility] CENTERLIA [id number] [place] [address] [place] Sodium [Moles/Vol] 139 mmol/L Normal 136-[address] [facility] Comment on above: Order Comment: Speci men Type: BLOOD SPECIMENOrdering Facility: [facility] Address: [address] [place] [address] Performed By: #### 2 4323-8, ####[facility] MILLTOWNCLIA [id number] [place] [address] [place] Urea nitrogen [Mass/Vol] 16 mg/dL Normal 7-21 [facility] Comment on above: Order Comment: Speci men Type: BLOOD SPECIMENOrdering Facility: [facility] Address: [address] [place] [address] Performed By: #### 2 4323-8, ####[facility] MILLWNCLIA [id number] [place] [address] [place] MAGNESIUMon 02-23-2025 Magnesium [Mass/Vol] 2.1 mg/dL 1.7 - 2 .3 mg/dL [facility] Magnesium SerPl-mCncon 02-23 Magnesium [Mass/Vol] 2.1 mg/dL Normal 1.7-2.3 [facility] Comment on above: Order Comment: Speci men Type: BLOOD SPECIMENOrdering Facility: [facility] Address: [address] [place] [address] Performed By: #### 2 4323-8, ####[facility]OS[facility]ITALNCLIA [id number] [place] [address] [place] Magnesium [Mass/Vol]on 02-23 Interpretation and review of laboratory results Normal [facility] No Panel InformationOrdered By: Mer Velazquez on 02-23-2025 [facility] CNOVon 02-22-2025 CNOV Office Visit (OBGYWM ) LIZ ROBLES ([id number]) 1955 F Date Time Provider Department 02/22/25 2:40 PM EMILIE LENNON OBGYWM During your visit today, we recorded the following information about you: Blood pressure Weight 104/70 76.2 kg Emilie Lennon MD 02/22/2025 4:13 PM Signed Liz Robles is a 69 year old female who presents for polyp on pelvic US. HPI: H/o breast cancer. Menopause at age 44. Denies vaginal bleeding or pelvic pain. Currently undergoing chemo for breat cancer with Dr. Martinez office. Had a pelvic ultrasound showing an endometrial polyp. Here to discuss management options. OB History Gravida4 Para3 Term0 Preterm0 AB0 Living3 SAB0 IAB0 Ectopic0 Multiple0 Live Births0 [employer] History LMP: LMP Unknown, Postmenopausal Age at Menarche: 11 Age at First : Age at Menopause: 44 [employer] History Comments: Sexual Activity: No sexual activity data on record; No partner data on record Contraception: No contraception data on record PAST MEDICAL HISTORY Diagnosis Date Breast cancer (HCC) 11/2024 left breast Essential hypertension PAST SURGICAL HISTORY Procedure Laterality Date BX OF BREAST; INCISIONAL Left 11/2024 [id number] . hx of eye surgery FAMILY HISTORY Problem Relation Age of Onset Liver Disease Mother No Known Problems Father No Known Problems Brother Liver Cancer Maternal Grandmother No Known Problems Maternal Grandfather Breast Cancer Maternal Aunt Cervical Cancer Maternal Aunt then Vaginal ca Lung Cancer Maternal Uncle smoker Lung Cancer Maternal Uncle smoker Social History Tobacco Use Smoking status: Never Smokeless tobacco: Never Vaping Use Vaping status: Never Used Substance Use Topics Alcohol use: Not Currently Drug use: Not Currently Current Outpatient Medications Medication Sig gabapentin (NEURONTIN) 100 mg capsule Take 2 capsules by mouth three times a day for 30 days. lidocaine-prilocaine (EMLA) 2.5-2.5 % cream Apply 1 application to affected area as needed. acetaminophen (TYLENOL) 325 mg cap Take 2 capsules by mouth once daily as needed for pain. famotidine (PEPCID) 20 mg tablet Take 20 mg by mouth two times a day. prochlorperazine (COMPAZINE) 10 mg tablet Take 1 tablet by mouth every 6 hours as needed. lisinopril (ZESTRIL) 5 mg tablet Take 2.5 mg by mouth once daily. omeprazole (PRILOSEC) 40 mg capsule Take 40 mg by mouth once daily. (Patient not taking: Reported on 02/01/2025) No current facility-administered medications for this visit. Allergies As of Date: 02/22/2025 Allergen Noted Reaction [id number]-[id number] REDUCTASE INHIBIT*12/13/2024 Myalgia Fully Assessed 02/22/2025 REVIEW OF SYSTEMS Expanded ROS: N/A Allergies and current medication updated:Yes SENSITIVE EXAM: Sensitive exam not performed. EXAM: BP 104/70 Wt 168 lb (76.2kg) GENERAL: pleasant, female in no apparent distress HEENT: Normocephalic and atraumatic CHEST: Normal inspiratory effort NEURO: exam grossly non-focal EXTREMITIES: normal ASSESSMENT AND PLAN: Assessment AND Plan Endometrial polyp Orders: CONSULT TO GYNECOLOGY History of breast cancer Reviewed pelvic ultrasound findings with patient and questions answered. Discussed r/b/a SIS, Endosee and EMB in office, vs hysteroscopy with polypectomy and DANDC at hospital. Patient desires to proceed with hysteroscopy, polypectomy, DANDC. Surgery sheet completed. Dates patient would like to avoid: May 06 - May 15 (vacation) History of breast cancer: Chemo scheduled up to end of March. Will need to coordinate care with oncology. Emilie Lennon DO Medical Decision Making: Problems: Moderate: New problem with uncertain prognosis Risk: Moderate: Decision on minor surgery w/ risk factors Medical Decision Making Level: 4 - Moderate Referring Provider: ORVILLE MARTINEZ [[id number]] Allergies As of Date: 02/22/2025 Noted Allergy Reaction [id number] REDUCTASE INHIBIT*12/13/2024 17 - Myalgia Date Reviewed: 02/22/2025 Reviewed by: Ana Flower MA - Fully Assessed Reason for Visit: Consult [173] Cmt: For surgery Primary Visit Diagnosis:History of breast cancer [Z85.3] Other Visit Diagnosis:Endometrial polyp [N84.0] Order(s):CONSULT TO GYNECOLOGY [9013] Order #: [id number]: 1 Prescriptions as of 02/22/2025 - gabapentin (NEURONTIN) 100 mg capsule Take 2 capsules by mouth three times a day for 30 days. - lidocaine-prilocaine (EMLA) 2.5-2.5 % cream Apply 1 application to affected area as needed. - acetaminophen (TYLENOL) 325 mg cap Take 2 capsules by mouth once daily as needed for pain. - famotidine (PEPCID) 20 mg tablet Take 20 mg by mouth two times a day. - prochlorperazine (COMPAZINE) 10 mg tablet Take 1 tablet by mouth every 6 hours as needed. - lisinopril (ZESTRIL) 5 mg tablet Take 2.5 mg by mouth once lisa (more content not included)... Normal [facility] 02-18-2025 CNPN Telephone (OBGYWM) LIZ ROBLES ([id number]) 1955 F Date Time Provider Department 02/18/25 ARUL NG OBGYWM During your visit today, we recorded the following information about you: Elizabeth Cleaning RN 02/18/2025 3:52 PM Signed Left message for patient to call office. She is new [facility] with KJ on 02/24. KJ wanted to make sure patient was aware that she would not be the one doing her surgery. Wanted to offer 02/22 at 2:40pm with SW instead if she'd rather see a surgeon that could do surgery. I did place this slot on hold for now. If she'd rather keep appt with KJ that is fine too. She just wanted to make sure she knew she does not do surgeries. EVERT Weathers Jennifer, RN 02/18/2025 3:58 PM Signed Spoke with patient. Agreeable to 02/22 with SW instead. Yesi Figueroa RN Allergies As of Date: 02/18/2025 Noted Allergy Reaction [id number]-WBX-MJX REDUCTASE INHIBIT*12/13/2024 17 - Myalgia Date Reviewed: 02/16/2025 Reviewed by: Deborah Koenig, EVERT - Fully Assessed Reason for Visit: Appointment [186] Prescriptions as of 02/18/2025 - lidocaine-prilocaine (EMLA) 2.5-2.5 % cream Apply 1 application to affected area as needed. - acetaminophen (TYLENOL) 325 mg cap Take 2 capsules by mouth once daily as needed for pain. - famotidine (PEPCID) 20 mg tablet Take 20 mg by mouth two times a day. - prochlorperazine (COMPAZINE) 10 mg tablet Take 1 tablet by mouth every 6 hours as needed. - lisinopril (ZESTRIL) 5 mg tablet Take 2.5 mg by mouth once daily. - omeprazole (PRILOSEC) 40 mg capsule Take 40 mg by mouth once daily. 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) [C50.919, Z*01/03/2025 Enlarged lymph node [R59.9] 01/11/2025 Encounter Status:Closed by YESI FIGUEROA on 02/18/25 Normal [facility] CBC W Auto Differential pane l (Bld)on 02-16-2025 Basophils (Bld) [#/Vol] 0.04 10*3/uL [facility] Basophils/100 WBC (Bld) 0.9 % [facility] Differential cell count method Nom (Bld) Auto [facility] Eosinophils (Bld) [#/Vol] 0.03 10*3/uL [facility] Eosinophils/100 WBC (Bld) 0.7 % [facility] Erythrocyte distribution width (RBC) [Ratio] 12 % 11.5 - 15.0 % [facility] Hematocrit (Bld) [Volume fraction] 36 % 36.0 - 46.0 % [facility] Hemoglobin (Bld) [Mass/Vol] 12.7 g/dL 11.5 - 15.5 g/dL [facility] Immature granulocytes (Bld) [#/Vol] [facility] Immature granulocytes/100 WBC (Bld) 0.5 % [facility] Interpretation and review of laboratory results Abnormal [facility] Lymphocytes (Bld) [#/Vol] 1.86 10*3/uL [facility] Lymphocytes/100 WBC (Bld) 42.7 % [facility] MCH (RBC) [Entitic mass] 33.7 pg 26.0 - 34.0 pg [facility] MCHC (RBC) [Mass/Vol] 35.3 g/dL 30.5 - 36.0 g/dL [facility] MCV (RBC) [Entitic vol] 95.5 fL 80.0 - 100.0 fL [facility] Monocytes (Bld) [#/Vol] 0.25 10*3/uL [facility] Monocytes/100 WBC (Bld) 5.7 % [facility] Neutrophils (Bld) [#/Vol] 2.16 10*3/uL [facility] Neutrophils/100 WBC (Bld) 49.5 % [facility] Nucleated RBC (Bld) [#/Vol] NINF [facility] Nucleated RBC/100 WBC (Bld) [Ratio] 0 % /100 WBC [facility] Platelet mean volume (Bld) [Entitic vol] 9 fL 9.0 - 12.7 fL [facility] Platelets (Bld) [#/Vol] 178 10*3/uL [facility] RBC (Bld) [#/Vol] 3.77 10*6/uL Low 3.90 - 5.2 0 m/uL [facility] WBC (Bld) [#/Vol] 4.36 10*3/uL [facility] Basophils (Bld) [#/Vol] 0.04 10*3/uL Normal <0.11 [facility] Comment on above: Order Comment: Speci men Type: BLOOD SPECIMENOrdering Facility: [facility] Address: [address] [place] [address] Performed By: #### 5 7021-8 ####[facility] [id number] [place] [address] [place] Basophils/100 WBC (Bld) 0.9 % Normal [facility] Comment on above: Order Comment: Speci men Type: BLOOD SPECIMENOrdering Facility: [facility] Address: [address] [place] [address] Performed By: #### 5 7021-8 ####[facility] [id number] [place] [address] [place] Differential cell count method Nom (Bld) Auto Normal [facility] Comment on above: Order Comment: Speci men Type: BLOOD SPECIMENOrdering Facility: [facility] Address: [address] [place] [address] Performed By: #### 5 7021-8 ####[facility] IVONNEADRIANNE [id number] [place] [address] [place] Eosinophils (Bld) [#/Vol] 0.03 10*3/uL Normal <0.46 [facility] Comment on above: Order Comment: Speci men Type: BLOOD SPECIMENOrdering Facility: [facility] Address: [address] [place] [address] Performed By: #### 5 7021-8 ####[facility] HOSPITALJACOBA [id number] [place] [address] [place] Eosinophils/100 WBC (Bld) 0.7 % Normal [facility] Comment on above: Order Comment: Speci men Type: BLOOD SPECIMENOrdering Facility: [facility] Address: [address] [place] [address] Performed By: #### 5 7021-8 ####[facility]ITALNCSUZY [id number] [place] [address] [place] Erythrocyte distribution width (RBC) [Ratio] 12.0 % Normal 11.5-15.0 [facility] Comment on above: Order Comment: Speci men Type: BLOOD SPECIMENOrdering Facility: [facility] Address: [address] [place] [address] Performed By: #### 5 7021-8 ####[facility]ITALNCLIA [id number] [place] [address] [place] Hematocrit (Bld) [Volume fraction] 36.0 % Normal 36.0-46.0 [facility] Comment on above: Order Comment: Speci men Type: BLOOD SPECIMENOrdering Facility: [facility] Address: [address] [place] [address] Performed By: #### 5 7021-8 ####[facility] CHARLOTTEWNCLIA [id number] [place] [address] [place] Hemoglobin (Bld) [Mass/Vol] 12.7 g/dL Normal 11.5-15.5 [facility] Comment on above: Order Comment: Speci men Type: BLOOD SPECIMENOrdering Facility: [facility] Address: [address] [place] [address] Performed By: #### 5 7021-8 ####[facility] CENTERLIA [id number] [place] [address] [place] Immature granulocytes (Bld) [#/Vol] 10*3/uL Normal <0.10 [facility] Comment on above: Order Comment: Speci men Type: BLOOD SPECIMENOrdering Facility: [facility] Address: [address] [place] [address] Performed By: #### 5 7021-8 ####[facility]ENTERA [id number] [place] [address] [place] Immature granulocytes/100 WBC (Bld) 0.5 % Normal [facility] Comment on above: Order Comment: Speci men Type: BLOOD SPECIMENOrdering Facility: [facility] Address: [address] [place] [address] Performed By: #### 5 7021-8 ####[facility] CENTERLIA [id number] [place] [address] [place] Lymphocytes (Bld) [#/Vol] 1.86 10*3/uL Normal 1.00-4.00 [facility] Comment on above: Order Comment: Speci men Type: BLOOD SPECIMENOrdering Facility: [facility] Address: [address] [place] [address] Performed By: #### 5 7021-8 ####[facility] HOSPITALNCLI [id number] [place] [address] [place] Lymphocytes/100 WBC (Bld) 42.7 % Normal [facility] Comment on above: Order Comment: Speci men Type: BLOOD SPECIMENOrdering Facility: [facility] Address: [address] [place] [address] Performed By: #### 5 7021-8 ####[facility]ITALNCMO[facility] [id number] [place] [address] [place] MCH (RBC) [Entitic mass] 33.7 pg Normal 26.0-34.0 [facility] Comment on above: Order Comment: Speci men Type: BLOOD SPECIMENOrdering Facility: [facility] Address: [address] [place] [address] Performed By: #### 5 7021-8 ####[facility]ITALNCM[facility] [id number] [place] [address] [place] MCHC (RBC) [Mass/Vol] 35.3 g/dL Normal 30.5-36.0 [facility] Comment on above: Order Comment: Speci men Type: BLOOD SPECIMENOrdering Facility: [facility] Address: [address] [place] [address] Performed By: #### 5 7021-8 ####[facility]ITALNCLIA [id number] [place] [address] [place] MCV (RBC) [Entitic vol] 95.5 fL Normal 80.0-100.0 [facility] Comment on above: Order Comment: Speci men Type: BLOOD SPECIMENOrdering Facility: [facility] Address: [address] [place] [address] Performed By: #### 5 7021-8 ####[facility]ITALNCM[facility] [id number] [place] [address] [place] Monocytes (Bld) [#/Vol] 0.25 10*3/uL Normal <0.87 [facility] Comment on above: Order Comment: Speci men Type: BLOOD SPECIMENOrdering Facility: [facility] Address: [address] [place] [address] Performed By: #### 5 7021-8 ####[facility] IVONNEADRIANNE [id number] [place] [address] [place] Monocytes/100 WBC (Bld) 5.7 % Normal [facility] Comment on above: Order Comment: Speci men Type: BLOOD SPECIMENOrdering Facility: [facility] Address: [address] [place] [address] Performed By: #### 5 7021-8 ####[facility]ITALNCMO[facility] [id number] [place] [address] [place] Neutrophils (Bld) [#/Vol] 2.16 10*3/uL Normal 1.45-7.50 [facility] Comment on above: Order Comment: Speci men Type: BLOOD SPECIMENOrdering Facility: [facility] Address: [address] [place] [address] Performed By: #### 5 7021-8 ####[facility] HOSPITALNCA [id number] [place] [address] [place] Neutrophils/100 WBC (Bld) 49.5 % Normal [facility] Comment on above: Order Comment: Speci men Type: BLOOD SPECIMENOrdering Facility: [facility] Address: [address] [place] [address] Performed By: #### 5 7021-8 ####[facility] HOSPITALNCLIA [id number] [place] [address] [place] Nucleated RBC (Bld) [#/Vol] 10*3/uL Normal <0.01 [facility] Comment on above: Order Comment: Speci men Type: BLOOD SPECIMENOrdering Facility: [facility] Address: [address] [place] [address] Performed By: #### 5 7021-8 ####[facility] IVONNESOPHIELIA [id number] [place] [address] [place] Nucleated RBC/100 WBC (Bld) [Ratio] 0.0 /100 WBC Normal [facility] Comment on above: Order Comment: Speci men Type: BLOOD SPECIMENOrdering Facility: [facility] Address: [address] [place] [address] Performed By: #### 5 7021-8 ####[facility] HOSPITALHAYDEN [id number] [place] [address] [place] Platelet mean volume (Bld) [Entitic vol] 9.0 fL Normal 9.0-12.7 [facility] Comment on above: Order Comment: Speci men Type: BLOOD SPECIMENOrdering Facility: [facility] Address: [address] [place] [address] Performed By: #### 5 7021-8 ####[facility] HOSPITALANGIETrae [id number] [place] [address] [place] Platelets (Bld) [#/Vol] 178 10*3/uL Normal 150-400 [facility] Comment on above: Order Comment: Speci men Type: BLOOD SPECIMENOrdering Facility: [facility] Address: [address] [place] [address] Performed By: #### 5 7021-8 ####[facility] CENTERSUZY [id number] [place] [address] [place] RBC (Bld) [#/Vol] 3.77 10*6/uL Low 3.90-5.20 [facility] Comment on above: Order Comment: Speci men Type: BLOOD SPECIMENOrdering Facility: [facility] Address: [address] [place] [address] Performed By: #### 5 7021-8 ####[facility]PITALNCMO[facility] [id number] [place] [id number] [place] WBC (Bld) [#/Vol] 4.36 10*3/uL Normal 3.70-11.00 [facility] Comment on above: Order Comment: Speci men Type: BLOOD SPECIMENOrdering Facility: [facility] Address: [address] [place] [address] Performed By: #### 5 7021-8 ####[facility] SOUTHLIA [id number] [address] [place] Comprehensive metabolic 2000 panelOrdered By: Mer Velazquez on 02-16-2025 Albumin [Mass/Vol] 4.1 g/dL 3.9 - 4.9 g/dL [facility] ALP [Catalytic activity/Vol] 65 U/L 34 - 123 U/L [facility] ALT [Catalytic activity/Vol] 35 U/L 7 - 38 U/L [facility] Anion gap [Moles/Vol] 10 mmol/L 8 - 15 mmol/L [facility] AST [Catalytic activity/Vol] 20 U/L 13 - 35 U/L [facility] Bilirubin [Mass/Vol] 0.3 mg/dL 0.2 - 1 .3 mg/dL [facility] Calcium [Mass/Vol] 9.8 mg/dL 8.5 - 10. 2 mg/dL [facility] Chloride [Moles/Vol] 104 mmol/L 98 - 10 7 mmol/L [facility] CO2 [Moles/Vol] 25 mmol/L 22 - 30 mmol/L [facility] Creatinine [Mass/Vol] 0.69 mg/dL 0.58 - 0.96 mg/dL [facility] GFR/1.73 sq M.predicted among non-blacks MDRD (S/P/Bld) [Vol rate/Area] 93 mL/min/{1.73_m2} - PINF [facility] Comment on above: Estimated Glomerular Filtration Rate (eGFR) is calculated using the 202 CKD-EPI creatinine equation. This equation utilizes serum creatinine, sex, and age as parameters. The creatinine assay has traceable calibration to isotope dilution-mass spectrometry. Refer to KDIGO guidelines for clinical interpretation. In patients with unstable renal function, e.g. those with acute kidney injury, the eGFR may not accurately reflect actual GFR. Glucose [Mass/Vol] 103 mg/dL High 74 - 99 mg/dL [facility] Comment on above: The [place] Diab[employer] s Association (ADA) provides guidance for cutoff values for fasting glucose and random glucose. The ADA defines fasting as no caloric intake for at least 8 hours. Fasting plasma glucose results between 100 to 125 mg/dL indicate increased risk for diabetes (prediabetes). Fasting plasma glucose results greater than or equal to 126 mg/dL meet the criteria for diagnosis of diabetes. In the absence of unequivocal hyperglycemia, results should be confirmed by repeat testing. In a patient with classic symptoms of hyperglycemia or hyperglycemic crisis, random plasma glucose results greater than or equal to 200 mg/dL meet the criteria for diagnosis of diabetes. Reference: Standards of Medical Care in Diabetes 2016, [place] Diabetes Association. Diabetes Care. 2016.39(Suppl 1). Interpretation and review of laboratory results Abnormal [facility] Potassium [Moles/Vol] 4 mmol/L 3.7 - 5.1 mmol/L [facility] Protein [Mass/Vol] 6.5 g/dL 6.3 - 8.0 g/dL [facility] Sodium [Moles/Vol] 139 mmol/L 136 - 144 mmol/L [facility] Urea nitrogen [Mass/Vol] 17 mg/dL 7 - 21 mg/dL [facility] Comprehensive metabolic 2000 panelon 02-16-2025 Albumin [Mass/Vol] 4.1 g/dL Normal 3.9-4.[address] [facility] Comment on above: Order Comment: Speci men Type: BLOOD SPECIMENOrdering Facility: [facility] Address: [address] [place] [address] Performed By: #### 2 4323-8, ####[facility] [id number] [place] [address] [place] ALP [Catalytic activity/Vol] 65 U/L Normal 34-123 [facility] Comment on above: Order Comment: Speci men Type: BLOOD SPECIMENOrdering Facility: [facility] Address: [address] [place] [address] Performed By: #### 2 4323-8, ####[facility] CENTERA [id number] [place] [address] [place] ALT [Catalytic activity/Vol] 35 U/L Normal 7-38 [facility] Comment on above: Order Comment: Speci men Type: BLOOD SPECIMENOrdering Facility: [facility] Address: [address] [place] [address] Performed By: #### 2 4323-8, ####[facility] MILLWNCLIA [id number] [place] [address] [place] Anion gap [Moles/Vol] 10 mmol/L Normal 8-15 [facility] Comment on above: Order Comment: Speci men Type: BLOOD SPECIMENOrdering Facility: [facility] Address: [address] [place] [address] Performed By: #### 2 4323-8, ####[facility] MED[facility] CENTERLIA [id number] [place] [address] [place] AST [Catalytic activity/Vol] 20 U/L Normal 13-35 [facility] Comment on above: Order Comment: Speci men Type: BLOOD SPECIMENOrdering Facility: [facility] Address: [address] [place] [address] Performed By: #### 2 4323-8, ####[facility] HOSPITALANGIELIA [id number] [place] [address] [place] Bilirubin [Mass/Vol] 0.3 mg/dL Normal 0.2-1.3 [facility] Comment on above: Order Comment: Speci men Type: BLOOD SPECIMENOrdering Facility: [facility] Address: [address] [place] [address] Performed By: #### 2 4323-8, ####[facility] HOSPITALNCLIA [id number] [place] [address] [place] Calcium [Mass/Vol] 9.8 mg/dL Normal 8.5-10.[address] [facility] Comment on above: Order Comment: Speci men Type: BLOOD SPECIMENOrdering Facility: [facility] Address: [address] [place] [address] Performed By: #### 2 4323-8, ####[facility] MILLWANGIELIA [id number] [place] [address] [place] Chloride [Moles/Vol] 104 mmol/L Normal 98-107 [facility] Comment on above: Order Comment: Speci men Type: BLOOD SPECIMENOrdering Facility: [facility] Address: [address] [place] [address] Performed By: #### 2 4323-8, ####[facility] HOSPITALNCLIA [id number] [place] [address] [place] CO2 [Moles/Vol] 25 mmol/L Normal 22-30 [facility] Comment on above: Order Comment: Speci men Type: BLOOD SPECIMENOrdering Facility: [facility] Address: [address] [place] [address] Performed By: #### 2 4323-8, ####[facility] MED[facility] CENTERLIA [id number] [place] [address] [place] Creatinine [Mass/Vol] 0.69 mg/dL Normal 0.58-0.96 [facility] Comment on above: Order Comment: Speci men Type: BLOOD SPECIMENOrdering Facility: [facility] Address: [address] [place] [address] Performed By: #### 2 4323-8, ####[facility] MILLTRINITYNCLIA [id number] [place] [address] [place] Creatinine and Glomerular filtration rate.predicted panel (S/P/Bld) 93 mL/min/1.73m??? Normal >=60 [facility] Comment on above: Order Comment: Cam silva Type: BLOOD SPECIMENOrdering Facility: [facility] Address: [address] [place] [address] Result Comment: Coco mated Glomerular Filtration Rate (eGFR) is calculated using the 2020 CKD-EPI creatinine equation. This equation utilizes serum creatinine, sex, and age as parameters. The creatinine assay has traceable calibration to isotope dilution-mass spectrometry. Refer to KDIGO guidelines for clinical interpretation. In patients with unstable renal function, e.g. those with acute kidney injury, the eGFR may not accurately reflect actual GFR. Performed By: #### 2 4323-8, 49904-7 ####[facility] [id number] [place] [address] [place] Glucose [Mass/Vol] 103 mg/dL High 74-[address] [facility] Comment on above: Order Comment: Cam silva Type: BLOOD SPECIMENOrdering Facility: [facility] Address: [address] [place] [address] Result Comment: The [place] Diabetes Association (ADA) provides guidance for cutoff values for fasting glucose and random glucose. The ADA defines fasting as no caloric intake for at least 8 hours. Fasting plasma glucose results between 100 to 125 mg/dL indicate increased risk for diabetes (prediabetes). Fasting plasma glucose results greater than or equal to 126 mg/dL meet the criteria for diagnosis of diabetes. In the absence of unequivocal hyperglycemia, results should be confirmed by repeat testing. In a patient with classic symptoms of hyperglycemia or hyperglycemic crisis, random plasma glucose results greater than or equal to 200 mg/dL meet the criteria for diagnosis of diabetes. Reference: Standards of Medical Care in Diabetes 2016, [place] Diabetes [employer]. Diabetes Care. 2016.39(Suppl 1). Performed By: #### 2 4323-8, 17780-7 ####[facility] CENTERA [id number] [place] [address] [place] Potassium [Moles/Vol] 4.0 mmol/L Normal 3.7-5.1 [facility] Comment on above: Order Comment: Speci men Type: BLOOD SPECIMENOrdering Facility: [facility] Address: [address] [place], [place] [address] Performed By: #### 2 4323-8, ####[facility] IVONNEKORINLIA [id number] [place] [address] [place] Protein [Mass/Vol] 6.5 g/dL Normal 6.3-8.[address] [facility] Comment on above: Order Comment: Speci men Type: BLOOD SPECIMENOrdering Facility: [facility] Address: [address] [place], [place] [address] Performed By: #### 2 4323-8, ####[facility] ROSY FELI [id number] [place] [address] [place] Sodium [Moles/Vol] 139 mmol/L Normal 136-[address] [facility] Comment on above: Order Comment: Speci men Type: BLOOD SPECIMENOrdering Facility: [facility] Address: [address] [place], [place] [address] Performed By: #### 2 4323-8, ####[facility] GINGERA [id number] [place] [address] [place] Urea nitrogen [Mass/Vol] 17 mg/dL Normal 7-21 [facility] Comment on above: Order Comment: Speci men Type: BLOOD SPECIMENOrdering Facility: [facility] Address: [address] [place] [address] Performed By: #### 2 4323-8, ####[facility] MILLNATHANWNCLIA [id number] [place] [address] [place] MAGNESIUMon 02-16-2025 Magnesium [Mass/Vol] 2.1 mg/dL 1.7 - 2 .3 mg/dL [facility] Magnesium SerPl-mCncon 02-16 Magnesium [Mass/Vol] 2.1 mg/dL Normal 1.7-2.3 [facility] Comment on above: Order Comment: Speci men Type: BLOOD SPECIMENOrdering Facility: [facility] Address: [place] [address] Performed By: #### 2 4323-8, 73359-0 ####[facility] ROSY CORONADOBAGLEY MEDICAL CENTERTrae [id number] [place] [address] [place] Magnesium [Mass/Vol]on 02-16 Interpretation and review of laboratory results Normal [facility] CBC W Auto Differential pane l (Bld)on 02-08-2025 Basophils (Bld) [#/Vol] 0.04 10*3/uL [facility] Basophils/100 WBC (Bld) 1.3 % [facility] Differential cell count method Nom (Bld) Auto [facility] Eosinophils (Bld) [#/Vol] 0.03 10*3/uL [facility] Eosinophils/100 WBC (Bld) 0.9 % [facility] Erythrocyte distribution width (RBC) [Ratio] 11.4 % Low 11.5 - 15.0 % [facility] Hematocrit (Bld) [Volume fraction] 36.1 % 36.0 - 46.0 % [facility] Hemoglobin (Bld) [Mass/Vol] 12.7 g/dL 11.5 - 15.5 g/dL [facility] Immature granulocytes (Bld) [#/Vol] [facility] Immature granulocytes/100 WBC (Bld) 0.6 % [facility] Interpretation and review of laboratory results Abnormal [facility] Lymphocytes (Bld) [#/Vol] 1.62 10*3/uL [facility] Lymphocytes/100 WBC (Bld) 50.8 % [facility] MCH (RBC) [Entitic mass] 33.2 pg 26.0 - 34.0 pg [facility] MCHC (RBC) [Mass/Vol] 35.2 g/dL 30.5 - 36.0 g/dL [facility] MCV (RBC) [Entitic vol] 94.5 fL 80.0 - 100.0 fL [facility] Monocytes (Bld) [#/Vol] 0.18 10*3/uL [facility] Monocytes/100 WBC (Bld) 5.6 % [facility] Neutrophils (Bld) [#/Vol] 1.3 10*3/uL Low [facility] Neutrophils/100 WBC (Bld) 40.8 % [facility] Nucleated RBC (Bld) [#/Vol] NINF [facility] Nucleated RBC/100 WBC (Bld) [Ratio] 0 % /100 WBC [facility] Platelet mean volume (Bld) [Entitic vol] 9.1 fL 9.0 - 12.7 fL [facility] Platelets (Bld) [#/Vol] 241 10*3/uL [facility] RBC (Bld) [#/Vol] 3.82 10*6/uL Low 3.90 - 5.2 0 m/uL [facility] WBC (Bld) [#/Vol] 3.19 10*3/uL Low [facility] Basophils (Bld) [#/Vol] 0.04 10*3/uL Normal <0.11 [facility] Comment on above: Order Comment: Speci men Type: BLOOD SPECIMENOrdering Facility: [facility] Address: [address] [place] [address] Performed By: #### 5 7021-8 ####[facility] CENTERA [id number] [place] [address] [place] Basophils/100 WBC (Bld) 1.3 % Normal [facility] Comment on above: Order Comment: Speci men Type: BLOOD SPECIMENOrdering Facility: [facility] Address: [address] [place] [address] Performed By: #### 5 7021-8 ####[facility] PORT CHARLOTTEWNCLIA [id number] [place] [address] [place] Differential cell count method Nom (Bld) Auto Normal [facility] Comment on above: Order Comment: Speci men Type: BLOOD SPECIMENOrdering Facility: [facility] Address: [address] [place] [address] Performed By: #### 5 7021-8 ####[facility] CENTERLIA [id number] [place] [address] [place] Eosinophils (Bld) [#/Vol] 0.03 10*3/uL Normal <0.46 [facility] Comment on above: Order Comment: Speci men Type: BLOOD SPECIMENOrdering Facility: [facility] Address: [address] [place] [address] Performed By: #### 5 7021-8 ####[facility] CENTERLIA [id number] [place] [address] [place] Eosinophils/100 WBC (Bld) 0.9 % Normal [facility] Comment on above: Order Comment: Speci men Type: BLOOD SPECIMENOrdering Facility: [facility] Address: [address] [place] [address] Performed By: #### 5 7021-8 ####[facility]ITALNCLIA [id number] [place] [address] [place] Erythrocyte distribution width (RBC) [Ratio] 11.4 % Low 11.5-15.0 [facility] Comment on above: Order Comment: Speci men Type: BLOOD SPECIMENOrdering Facility: [facility] Address: [address] [place] [address] Performed By: #### 5 7021-8 ####[facility] H[facility]PITALNCLIA [id number] [place] [address] [place] Hematocrit (Bld) [Volume fraction] 36.1 % Normal 36.0-46.0 [facility] Comment on above: Order Comment: Speci men Type: BLOOD SPECIMENOrdering Facility: [facility] Address: [address] [place] [address] Performed By: #### 5 7021-8 ####[facility]ITALNCLIA [id number] [place] [address] [place] Hemoglobin (Bld) [Mass/Vol] 12.7 g/dL Normal 11.5-15.5 [facility] Comment on above: Order Comment: Speci men Type: BLOOD SPECIMENOrdering Facility: [facility] Address: [address] [place] [address] Performed By: #### 5 7021-8 ####[facility] ROSY GINGERA [id number] [place] [address] [place] Immature granulocytes (Bld) [#/Vol] 10*3/uL Normal <0.10 [facility] Comment on above: Order Comment: Speci men Type: BLOOD SPECIMENOrdering Facility: [facility] Address: [address] [place] [address] Performed By: #### 5 7021-8 ####[facility] HOSPITALJACOBA [id number] [place] [address] [place] Immature granulocytes/100 WBC (Bld) 0.6 % Normal [facility] Comment on above: Order Comment: Speci men Type: BLOOD SPECIMENOrdering Facility: [facility] Address: [address] [place] [address] Performed By: #### 5 7021-8 ####[facility] IVONNEBAGLEY MEDICAL CENTERA [id number] [place] [address] [place] Lymphocytes (Bld) [#/Vol] 1.62 10*3/uL Normal 1.00-4.00 [facility] Comment on above: Order Comment: Speci men Type: BLOOD SPECIMENOrdering Facility: [facility] Address: [address] [place] [address] Performed By: #### 5 7021-8 ####[facility] CENTERLIA [id number] [place] [address] [place] Lymphocytes/100 WBC (Bld) 50.8 % Normal [facility] Comment on above: Order Comment: Speci men Type: BLOOD SPECIMENOrdering Facility: [facility] Address: [address] [place] [address] Performed By: #### 5 7021-8 ####[facility] HOSPITALNCLIA [id number] [place] [address] [place] MCH (RBC) [Entitic mass] 33.2 pg Normal 26.0-34.0 [facility] Comment on above: Order Comment: Speci men Type: BLOOD SPECIMENOrdering Facility: [facility] Address: [address] [place] [address] Performed By: #### 5 7021-8 ####[facility]ENTERA [id number] [place] [address] [place] MCHC (RBC) [Mass/Vol] 35.2 g/dL Normal 30.5-36.0 [facility] Comment on above: Order Comment: Speci men Type: BLOOD SPECIMENOrdering Facility: [facility] Address: [address] [place] [address] Performed By: #### 5 7021-8 ####[facility] [id number] [place] [address] [place] MCV (RBC) [Entitic vol] 94.5 fL Normal 80.0-100.0 [facility] Comment on above: Order Comment: Speci men Type: BLOOD SPECIMENOrdering Facility: [facility] Address: [address] [place] [address] Performed By: #### 5 7021-8 ####[facility] CENTERLI [id number] [address] [place] Monocytes (Bld) [#/Vol] 0.18 10*3/uL Normal <0.87 [facility] Comment on above: Order Comment: Speci men Type: BLOOD SPECIMENOrdering Facility: [facility] Address: [address] [place] [address] Performed By: #### 5 7021-8 ####[facility] [id number] [place] [address] [place] Monocytes/100 WBC (Bld) 5.6 % Normal [facility] Comment on above: Order Comment: Speci men Type: BLOOD SPECIMENOrdering Facility: [facility] Address: [address] [place] [address] Performed By: #### 5 7021-8 ####[facility] HOSPITALNCA [id number] [place] [address] [place] Neutrophils (Bld) [#/Vol] 1.30 10*3/uL Low 1.45-7.50 [facility] Comment on above: Order Comment: Speci men Type: BLOOD SPECIMENOrdering Facility: [facility] Address: [address] [place] [address] Performed By: #### 5 7021-8 ####[facility] [id number] [place] [address] [place] Neutrophils/100 WBC (Bld) 40.8 % Normal [facility] Comment on above: Order Comment: Speci men Type: BLOOD SPECIMENOrdering Facility: [facility] Address: [address] [place] [address] Performed By: #### 5 7021-8 ####[facility] [id number] [place] [address] [place] Nucleated RBC (Bld) [#/Vol] 10*3/uL Normal <0.01 [facility] Comment on above: Order Comment: Speci men Type: BLOOD SPECIMENOrdering Facility: [facility] Address: [address] [place] [address] Performed By: #### 5 7021-8 ####[facility]A [id number] [place] [address] [place] Nucleated RBC/100 WBC (Bld) [Ratio] 0.0 /100 WBC Normal [facility] Comment on above: Order Comment: Speci men Type: BLOOD SPECIMENOrdering Facility: [facility] Address: [address] [place] [address] Performed By: #### 5 7021-8 ####[facility] FELI [id number] [place] [address] [place] Platelet mean volume (Bld) [Entitic vol] 9.1 fL Normal 9.0-12.7 [facility] Comment on above: Order Comment: Speci men Type: BLOOD SPECIMENOrdering Facility: [facility] Address: [address] [place] [address] Performed By: #### 5 7021-8 ####[facility] IVONNETRINITYHAYDEN [id number] [place] [address] [place] Platelets (Bld) [#/Vol] 241 10*3/uL Normal 150-400 [facility] Comment on above: Order Comment: Speci men Type: BLOOD SPECIMENOrdering Facility: [facility] [facility] Address: [address] [place] [address] Performed By: #### 5 7021-8 ####[facility] IVONNETRINITYNCSANCHEZA [id number] [place] [address] [place] RBC (Bld) [#/Vol] 3.82 10*6/uL Low 3.90-5.20 [facility] Comment on above: Order Comment: Speci men Type: BLOOD SPECIMENOrdering Facility: [facility] Address: [address] [place] [address] Performed By: #### 5 7021-8 ####[facility]ITAL[facility]CLIA [id number] [place] [address] [place] WBC (Bld) [#/Vol] 3.19 10*3/uL Low 3.70-11.00 [facility] Comment on above: Order Comment: Speci men Type: BLOOD SPECIMENOrdering Facility: [facility] Address: [address] [place], [place] [address], [place] [address] Performed By: #### 5 7021-8 ####[facility] [id number] [place] [address] [place] CNOVSPon 02-08-2025 CNOVSP Visit (SP) Office (HEMAWS) DOUGLIZ ORR Ana Cristina ([id number]) 1955 F Date Time Provider Department 02/08/25 11:30 AM SONALI LOVE During your visit today, we recorded the following information about you: Temperature Pulse Blood pressure Weight 98.2 degrees 84/minute 144/79 73.5 kg Sonali Love APRN.SURVEY RESEARCH MANAGER 02/09/2025 3:23 PM Signed Chief Complaint Patient presents with: Established Patient HPI: Liz Robles is a 69 year old female who presents here today for evaluation for treatment tomorrow. Per Dr. Martinze's previous note: H/o she appreciated a lump in the left breast about 2 months ago. She underwent bilateral mammogram on 11/26/2024. There was a 3 cm irregular focal asymmetry observed in the left breast at 9 o'clock position middle depth. Ultrasound demonstrated a 2.6 cm irregular hypoechoic mass within the left breast at the 10 o'clock position 4 to 5 cm from the nipple. Lymph nodes in the left axilla. Normal by ultrasound. Ultrasound-guided core needle biopsy with clip placement on 12/01/2024. Pathology: Invasive carcinoma with apocrine features at least Mitchel grade 2. ER/MS both negative. HER2 2+. Nonamplified on FISH testing. CT of the chest, abdomen pelvis on 12/14/2024 showed a near 2 and half centimeter left breast mass and a few less than 6 mm pulmonary nodules. There was an indeterminate 1.3 cm segment liver lesion. MRI was recommended for further characterization. +rash to arms and legs. Appetite:Good. Wt. down 6# since 01/04/25. Energy level:Good. Denies fevers. Mouth:denies sores Resp:denies cough or sob Cardiac:denies chest pain/palpitations GI:denies abd pain, n/v, occ. 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 Past medical history, appointments, medications, allergies reviewed. No changes. EXAM: BP 144/79 Pulse 84 Temp 36.8 ?C (98.2 ?F) (Temporal) Wt 73.5 kg (162 lb) LMP (LMP Unknown) SpO2 100% BMI 26.96 kg/m? APPEARANCE Well appearing, alert, in no acute distress, well-hydrated, well nourished. HEART RRR with normal S1 and S2, no murmurs LUNG clear to auscultation BREAST FEMALE L breast mass 2x2cm mobile LYMPH NODES No cervical lymphadenopathy, No supraclavicular lymphadenopathy, and No axillary lymphadenopathy. ABDOMEN bowel sounds normoactive, soft, non-tender EXTREMITIES No edema NEURO Awake, alert and oriented x 3, Normal gait, and No involuntary motions. LABS: Latest Ref Rng 01/25/2025 02/01/2025 02/08/2025 WBC 3.70 - 11.00 k/uL 3.56 (L) 2.93 (L) 3.19 (L) RBC 3.90 - 5.20 m/uL 4.04 3.99 3.82 (L) Hemoglobin 11.5 - 15.5 g/dL 13.3 13.1 12.7 Hematocrit 36.0 - 46.0 % 38.3 37.8 36.1 MCV 80.0 - 100.0 fL 94.8 94.7 94.5 MCH 26.0 - 34.0 pg 32.9 32.8 33.2 MCHC 30.5 - 36.0 g/dL 34.7 34.7 35.2 RDW-CV 11.5 - 15.0 % 11.1 (L) 11.2 (L) 11.4 (L) Platelet Count 150 - 400 k/uL 200 216 241 MPV 9.0 - 12.7 fL 9.7 9.3 9.1 Neut% % 53.6 42.5 40.8 Abs Neut (ANC) 1.45 - 7.50 k/uL 1.91 1.24 (L) 1.30 (L) Lymph% % 36.0 49.8 50.8 Abs Lymph 1.00 - 4.00 k/uL 1.28 1.46 1.62 Vinton% % 4.8 4.4 5.6 Abs Vinton <0.87 k/uL 0.17 0.13 0.18 Eosin% % 3.9 2.0 0.9 Abs Eosin <0.46 k/uL 0.14 0.06 0.03 Baso% % 1.1 1.0 1.3 Abs Baso <0.11 k/uL 0.04 0.03 0.04 Immature Gran % % 0.6 0.3 0.6 IMMATURE GRANS (ABS) <0.10 k/uL <0.03 <0.03 <0.03 NRBC /100 WBC 0.0 0.0 0.0 Absolute nRBC <0.01 k/uL <0.01 <0.01 <0.01 DTYPE Auto Auto Auto CMP/Mag/TSH/T4/Cortisol : Pending ASSESSMENT/PLAN: 1. Malignant neoplasm of upper-inner quadrant of left breast in female, estrogen receptor negative (HCC) - ICD9: 174.2, V86.1, ICD10: C50.212, Z17.1 Clinical stage from 01/04/2025: Stage IIB (cT2, cN0, cM0, G2, ER-, MS-, HER2-) - Signed by Orville Martinez DO on 01/04/[address] 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 - I reviewed the pathology with the patient and her . Although she has not yet had MRI of the liver, I recommended neoadjuvant chemoimmunotherapy with the KEYNOTE 522 regimen. Discussed that the goals of care are an increase in overall survival. - I discussed the rationale, logistics, potential risks (including but not limited to fatigue, alopecia, neuropathy, cardiomyopathy, leukemia, infections, autoimmune side effects and the small potential for as a consequence of severe toxicity/complications of therapy), benefits and alternatives, as well as the personnel involved in the administration of carboplatin and paclitaxel along with pembrolizumab on a weekly schedule x 12 followed by Adriamycin and cyclophosphamide with pe (more content not included)... Normal [facility] CORTISOL, SERUMon 02-08-2025 Cortisol [Mass/Vol] 12.3 ug/dL 4.8 - 19 .5 ug/dL [facility] Comment on above: Provided reference r cristian is from 6-10 AM sample collection time. Cortisol Reference Range: 6-10 AM = 4.8-19.5 ug/dL, 4-8 PM = 2.5-11.9 ug/dL Comprehensive metabolic 2000 panelOrdered By: Meeta Lau on 02-08-2025 Albumin [Mass/Vol] 4.1 g/dL 3.9 - 4.9 g/dL [facility] ALP [Catalytic activity/Vol] 67 U/L 34 - 123 U/L [facility] ALT [Catalytic activity/Vol] 31 U/L 7 - 38 U/L [facility] Anion gap [Moles/Vol] 12 mmol/L 8 - 15 mmol/L [facility] AST [Catalytic activity/Vol] 19 U/L 13 - 35 U/L [facility] Bilirubin [Mass/Vol] 0.3 mg/dL 0.2 - 1 .3 mg/dL [facility] Calcium [Mass/Vol] 10 mg/dL 8.5 - 10. 2 mg/dL [facility] Chloride [Moles/Vol] 103 mmol/L 98 - 10 7 mmol/L [facility] CO2 [Moles/Vol] 23 mmol/L 22 - 30 mmol/L [facility] Creatinine [Mass/Vol] 0.59 mg/dL 0.58 - 0.96 mg/dL [facility] GFR/1.73 sq M.predicted among non-blacks MDRD (S/P/Bld) [Vol rate/Area] 97 mL/min/{1.73_m2} - PINF [facility] Comment on above: Estimated Glomerular Filtration Rate (eGFR) is calculated using the 2020 CKD-EPI creatinine equation. This equation utilizes serum creatinine, sex, and age as parameters. The creatinine assay has traceable calibration to isotope dilution-mass spectrometry. Refer to KDIGO guidelines for clinical interpretation. In patients with unstable renal function, e.g. those with acute kidney injury, the eGFR may not accurately reflect actual GFR. Glucose [Mass/Vol] 115 mg/dL High 74 - 99 mg/dL [facility] Comment on above: The [place] Diabete s Association (ADA) provides guidance for cutoff values for fasting glucose and random glucose. The ADA defines fasting as no caloric intake for at least 8 hours. Fasting plasma glucose results between 100 to 125 mg/dL indicate increased risk for diabetes (prediabetes). Fasting plasma glucose results greater than or equal to 126 mg/dL meet the criteria for diagnosis of diabetes. In the absence of unequivocal hyperglycemia, results should be confirmed by repeat testing. In a patient with classic symptoms of hyperglycemia or hyperglycemic crisis, random plasma glucose results greater than or equal to 200 mg/dL meet the criteria for diagnosis of diabetes. Reference: Standards of Medical Care in Diabetes 2016, [place] Diabetes Association. Diabetes Care. 2016.39(Suppl 1). Interpretation and review of laboratory results Abnormal [facility] Potassium [Moles/Vol] 4.1 mmol/L 3.7 - 5.1 mmol/L [facility] Protein [Mass/Vol] 6.7 g/dL 6.3 - 8.0 g/dL [facility] Sodium [Moles/Vol] 138 mmol/L 136 - 144 mmol/L [facility] Urea nitrogen [Mass/Vol] 15 mg/dL 7 - 21 mg/dL [facility] Comprehensive metabolic 2000 panelon 02-08-2025 Albumin [Mass/Vol] 4.1 g/dL Normal 3.9-4.[address] [facility] Comment on above: Order Comment: Speci men Type: BLOOD SPECIMENOrdering Facility: [facility] Address: [address] [place] [address] Performed By: #### 2 4323-8, 19973-3 ####[facility] [id number] [place] [address] [place] ALP [Catalytic activity/Vol] 67 U/L Normal 34-123 [facility] Comment on above: Order Comment: Speci men Type: BLOOD SPECIMENOrdering Facility: [facility] Address: [address] [place] [address] Performed By: #### 2 4323-8, 48344-9 ####[facility] ROSY MILLTOWNCLIA [id number] [place] [address] [place] ALT [Catalytic activity/Vol] 31 U/L Normal 7-38 [facility] Comment on above: Order Comment: Speci men Type: BLOOD SPECIMENOrdering Facility: [facility] Address: [address] [place] [address] Performed By: #### 2 4323-8, ####[facility] MILLTOWNCLIA [id number] [place] [address] [place] Anion gap [Moles/Vol] 12 mmol/L Normal 8-15 [facility] Comment on above: Order Comment: Speci men Type: BLOOD SPECIMENOrdering Facility: [facility] Address: [address] [place] [address] Performed By: #### 2 432-8, 49911-7 ####[facility] MILLWNCLIA [id number] [place] [address] [place] AST [Catalytic activity/Vol] 19 U/L Normal 13-35 [facility] Comment on above: Order Comment: Speci men Type: BLOOD SPECIMENOrdering Facility: [facility] Address: [address] [place] [address] Performed By: #### 2 4323-8, ####[facility] MILLTOWNCLIA [id number] [place] [address] [place] Bilirubin [Mass/Vol] 0.3 mg/dL Normal 0.2-1.3 [facility] Comment on above: Order Comment: Speci men Type: BLOOD SPECIMENOrdering Facility: [facility] Address: [address] [place] [address] Performed By: #### 2 4323-8, ####[facility] MILLTOWNCLIA [id number] [place] [address] [place] Calcium [Mass/Vol] 10.0 mg/dL Normal 8.5-10.[address] [facility] Comment on above: Order Comment: Speci men Type: BLOOD SPECIMENOrdering Facility: [facility] Address: [address] [place] [address] Performed By: #### 2 4323-8, ####[facility] ROSY MILLTOWNCLIA [id number] [place] [address] [place] Chloride [Moles/Vol] 103 mmol/L Normal 98-107 [facility] Comment on above: Order Comment: Speci men Type: BLOOD SPECIMENOrdering Facility: [facility] Address: [address] [place] [address] Performed By: #### 2 4323-8, ####[facility] MILLWNCLIA [id number] [place] [address] [place] CO2 [Moles/Vol] 23 mmol/L Normal 22-30 [facility] Comment on above: Order Comment: Speci men Type: BLOOD SPECIMENOrdering Facility: [facility] Address: [address] [place] [address] Performed By: #### 2 4323-8, ####[facility] MILLTOWNCLIA [id number] [place] [address] [place] Creatinine [Mass/Vol] 0.59 mg/dL Normal 0.58-0.96 [facility] Comment on above: Order Comment: Speci men Type: BLOOD SPECIMENOrdering Facility: [facility] Address: [address] [place] [address] Performed By: #### 2 4323-8, ####[facility] ROSY MILLTOWNCLIA [id number] [place] [address] [place] Creatinine and Glomerular filtration rate.predicted panel (S/P/Bld) 97 mL/min/1.73m??? Normal >=60 [facility] Comment on above: Order Comment: Cam silva Type: BLOOD SPECIMENOrdering Facility: [facility] Address: [address] [place], [place] [address] Result Comment: Coco mated Glomerular Filtration Rate (eGFR) is calculated using the 2020 CKD-EPI creatinine equation. This equation utilizes serum creatinine, sex, and age as parameters. The creatinine assay has traceable calibration to isotope dilution-mass spectrometry. Refer to KDIGO guidelines for clinical interpretation. In patients with unstable renal function, e.g. those with acute kidney injury, the eGFR may not accurately reflect actual GFR. Performed By: #### 2 4323-8, 29688-8 ####[facility] [id number] [place] [address] [place] Glucose [Mass/Vol] 115 mg/dL High 74-[address] [facility] Comment on above: Order Comment: Cam silva Type: BLOOD SPECIMENOrdering Facility: [facility] Address: [address] [place] [address] Result Comment: The [place] Diabetes Association (ADA) provides guidance for cutoff values for fasting glucose and random glucose. The ADA defines fasting as no caloric intake for at least 8 hours. Fasting plasma glucose results between 100 to 125 mg/dL indicate increased risk for diabetes (prediabetes). Fasting plasma glucose results greater than or equal to 126 mg/dL meet the criteria for diagnosis of diabetes. In the absence of unequivocal hyperglycemia, results should be confirmed by repeat testing. In a patient with classic symptoms of hyperglycemia or hyperglycemic crisis, random plasma glucose results greater than or equal to 200 mg/dL meet the criteria for diagnosis of diabetes. Reference: Standards of Medical Care in Diabetes 2016, [place] Diabetes Association. Diabetes Care. 2016.39(Suppl 1). Performed By: #### 2 4323-8, 08270-1 ####[facility] [id number] [place] [address] [place] Potassium [Moles/Vol] 4.1 mmol/L Normal 3.7-5.1 [facility] Comment on above: Order Comment: Speci men Type: BLOOD SPECIMENOrdering Facility: [facility] Address: [address] [place] [address] Performed By: #### 2 4323-8, ####[facility] ROSY IVONNELUANAA [id number] [place] [address] [place] Protein [Mass/Vol] 6.7 g/dL Normal 6.3-8.[address] [facility] Comment on above: Order Comment: Speci men Type: BLOOD SPECIMENOrdering Facility: [facility] Address: [address] [place] [address] Performed By: #### 2 432-8, ####[facility]AY[facility] [id number] [place] [address] [place] Sodium [Moles/Vol] 138 mmol/L Normal 136-[address] [facility] Comment on above: Order Comment: Speci men Type: BLOOD SPECIMENOrdering Facility: [facility] Address: [address] [place] [address] Performed By: #### 2 4323-8, ####[facility] [id number] [place] [address] [place] Urea nitrogen [Mass/Vol] 15 mg/dL Normal 7-21 [facility] Comment on above: Order Comment: Speci men Type: BLOOD SPECIMENOrdering Facility: [facility] Address: [address] [place] [address] Performed By: #### 2 4323-8, ####[facility]ITALJACOBA [id number] [place] [address] [place] Cortis SerPl-mCncon 02-09-20 25 Cortisol [Mass/Vol] 12.3 ug/dL Normal 4.8-19.5 [facility] Comment on above: Order Comment: Speci men Type: BLOOD SPECIMENOrdering Facility: [facility] Address: [address] [place] [address] Result Comment: Prov ided reference range is from 6-10 AM sample collection time. Cortisol Reference Range: 6-10 AM = 4.8-19.5 ug/dL, 4-8 PM = 2.5-11.9 ug/dL Performed By: #### 3 024-7, 2143-6, 3016-3 ####[facility] LABCLIA [id number] [place] [address] [place] MAGNESIUMon 02-08-2025 Magnesium [Mass/Vol] 2.1 mg/dL 1.7 - 2 .3 mg/dL [facility] Magnesium SerPl-mCncon 02-08 Magnesium [Mass/Vol] 2.1 mg/dL Normal 1.7-2.3 [facility] Comment on above: Order Comment: Speci men Type: BLOOD SPECIMENOrdering Facility: [facility] Address: [address] [place] [address] Performed By: #### 2 4323-8, 57657-5 ####[facility] [id number] [place] [id number] [place] Magnesium [Mass/Vol]on 02-08 Interpretation and review of laboratory results Normal [facility] No Panel Informationon 02-08 Interpretation and review of laboratory results Normal [facility] No Panel InformationOrdered By: Meeta Lau on 02-08-2025 [facility] T4 FREE/FREE THYROXINEon Free T4 [Mass/Vol] 1 ng/dL 0.9 - 1.7 ng/dL [facility] T4 Free SerPl-mCncon 025 Free T4 [Mass/Vol] 1.0 ng/dL Normal 0.9-1.[address] [facility] Comment on above: Order Comment: Speci men Type: BLOOD SPECIMENOrdering Facility: [facility] Address: [address] [place] [address] Performed By: #### 3 024-7, 3-6, 3 ####[facility] LABCLIA [id number] [address] [address] [place] THYROID STIMULATING HORMONEo n 02-08-2025 TSH Qn 3.57 m[IU]/L [facility] TSH SerPl-aCncon 02-08-2025 TSH Qn 3.570 m[IU]/L Normal 0.270-4.200 [facility] Comment on above: Order Comment: Speci men Type: BLOOD SPECIMENOrdering Facility: [facility] Address: [address] [place], [place] [address] Performed By: #### 3 024-7, 2142-6, 3 ####[facility] LABCLIA [id number] [address] [address] [facility] [place] XR CHEST 2V FRONTAL/LATon XR CHEST 2V FRONTAL/LAT * * *Final Report* * * DATE OF EXAM: Feb 08 2025 11:51AM [id number] - XR CHEST 2V FRONTAL/LAT / PROCEDURE REASON: multiple diagnoses * * * * Physician Interpretation * * * * EXAMINATION: CHEST RADIOGRAPH (2 VIEW FRONTAL and LATERAL) CLINICAL HISTORY: Malignant neoplasm of upper-inner quadrant of left breast in female, 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 Lungs and pleura: No consolidation. No lung mass. No pleural effusion. No pneumothorax. Cardiomediastinal silhouette: Normal cardiomediastinal silhouette. Bones and soft tissues: Unremarkable. IMPRESSION: Infusion catheter in satisfactory position. No active cardiopulmonary disease Cargo Agent: PSCB Transcribe Date/Time: Feb 08 2025 12:27P Dictated by : HARRISON PURI MD This examination was interpreted and the report reviewed and electronically signed by: HARRISON PURI MD on Feb 08 2025 12:29PM EST [id number] Normal [facility] XR Chest PA and Lateralon IMPRESSION: Infusion catheter in satisfactory position. 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 Lungs and pleura: No consolidation. No lung mass. No pleural effusion. No pneumothorax. Cardiomediastinal silhouette: Normal cardiomediastinal silhouette. Bones and soft tissues: Unremarkable. 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 Lungs and pleura: No consolidation. No lung mass. No pleural effusion. No pneumothorax. Cardiomediastinal silhouette: Normal cardiomediastinal silhouette. Bones and soft tissues: Unremarkable. IMPRESSION IMPRESSION: Infusion catheter in satisfactory position. No active cardiopulmonary disease Cargo Agent: PSCB Transcribe Date/Time: Feb 08 2025 12:27P Dictated by : HARRISON PURI MD This examination was interpreted and the report reviewed and electronically signed by: HARRISON PURI MD on Feb 08 2025 12:29PM EST [facility] Radiology Study observation (narrative) [facility] XR Chest PA and LateralOrder ed By: Ccf Provider on 02-08-2025 [facility] CNPN Telephone (AMY) WILBERTOLIZ L ([id number]) 1955 F Date Time Provider Department 02/04/25 DEBORAH VILLAVICENCIO During your visit today, we recorded the following information about you: Deborah Villavicencio LISW 02/04/2025 2:37 PM Signed PSYCHOSOCIAL SCREENING ASSESSMENT Date of Service: February 04, 2025 Lizsherri Robles is a 69 year old female being seen for initial social work assessment. 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 New Primary Oncologist: Orville Martinez DO Radiation Oncologist: ABI Goals of Care: Curative intent Today's visit includes: self/patient Family History of Cancer: Maternal Aunt: Breat, Maternal Aunt: Cervical, Maternal Uncle: Lung, Maternal Uncle: Lung SUPPORT NETWORK: Social Connections: Not on file Marital status: Parent(s): Child/Children: Yes. cardiac care unit nurse arrangements needed: No Siblings: 1 brothers Home Health Provider: No Community Services: No Antoinette Identified: Yes Jain/Spirituality: Voodoo Are these practices or beliefs that may affect or influence treatment? No EMPLOYMENT/FINANCIAL/HE ALTH INSURANCE: Employment: Employed: [employer] in [place], works 3 days/week. Income source: Social Security incremental income (SSI) and Income Insurance: Medicare with co-insurance Prescription coverage: Yes Is the patient appropriate for referral to [facility] Assistance program? No Financial Distress: No [place]: No FOOD INSECURITY Within the past year, have you worried about how you would buy or obtain food? No LIVING ARRANGEMENTS: Type: House- independent colonial Resides with: , Artem Transportation Needs: Not on file FUNCTIONAL STATUS: Cognitive limitations: none Physical limitations: none Language barrier: No Hearing Impaired: No Speech Impaired: No Visual Impairments: No Special considerations/accommod ations needed: No HEALTH LITERACY: Do you have difficulty understanding medical instructions or other written materials you receive from you doctor or pharmacy? No Do have difficulty filling out medical forms by yourself? No The following interventions were put into place: NA MEDICATION ADHERENCE: Within the past 2 weeks, have you had difficulty remembering to take your medicine? No Within the past 2 weeks, did you ever miss taking your medications for reasons other than forgetting? No The following interventions were put into place: NA MENTAL HEALTH HISTORY: No History of combat/trauma: No Intimate Partner Violence: Not At Risk (01/10/2025) Safe at Home? Fear of Current or Ex-Partner: Not on file Emotionally Abused: Not on file Physically Abused: Not on file Sexually Abused: Not on file Safe at Home?: Yes Substance Use and Treatment History: denied History of Abuse: No Issues with: Sleep:No Eating:No Exercising: No Stress Management: No ADVANCE DIRECTIVES/LEGAL DOCUMENTS: Living Will: No and provided POA information for patient to review Scanned into EPIC: No Health Care Durable Power of Menu Planner: No and provided Living Will information for patient to review Scanned into EPIC: No Guardianship: No Scanned into EPIC:NA Reasons Advanced Directives were not Addressed: Patient not interested due to spouse/next of kin is medical decision maker Advance Care Planning Goals of Care Date of Discussion: 02/04/2025 DIscussion Participants: Liz Robles Clinical: SHANICE Nina In this encounter: Explained the [place] Order of Decision Makers and patient expressed understanding. and Patient shared they would like , Artem Robles, to make health care decisions for them if they are not able to themselves. COPING STATUS: Stress: Not on file Coping Strengths: supportive relationships with immediate family, with friends, with extended family, with neighbors, and with adventism spirituality successful managing past crises hopefulness self advocate strong problem-solving skills ability to plan able to follow direction consistently over time able to communicate effectively future oriented and able to identify goals Current affect/mood: appropriate and hopeful History of Loss: Yes Adjustment to diagnosis: reflecting understanding, responding appropriately, and accepting help BARRIERS/CARE CHALLENGES: None Are barriers/care challenges identified likely to have an impact on the patient's quality of life during treatment? NA INTERVENTIONS/REFERRALS TO BE PROVIDED: Monitor patient response to treatment Communicate pertinent medical/psychosocial information to [facility] team Continue follow up as needed Resources and Referrals: Internal: [facility] - Discussed with pt, she reports she does not wish to engage in the program at this time as she is worried she may gt connected (more content not included)... Normal [facility] CBC W Auto Differential pane l (Bld)on 02-01-2025 Basophils (Bld) [#/Vol] 0.03 10*3/uL [facility] Basophils/100 WBC (Bld) 1 % [facility] Differential cell count method Nom (Bld) Auto [facility] Eosinophils (Bld) [#/Vol] 0.06 10*3/uL [facility] Eosinophils/100 WBC (Bld) 2 % [facility] Erythrocyte distribution width (RBC) [Ratio] 11.2 % Low 11.5 - 15.0 % [facility] Hematocrit (Bld) [Volume fraction] 37.8 % 36.0 - 46.0 % [facility] Hemoglobin (Bld) [Mass/Vol] 13.1 g/dL 11.5 - 15.5 g/dL [facility] Immature granulocytes (Bld) [#/Vol] [facility] Immature granulocytes/100 WBC (Bld) 0.3 % [facility] Interpretation and review of laboratory results Abnormal [facility] Lymphocytes (Bld) [#/Vol] 1.46 10*3/uL [facility] Lymphocytes/100 WBC (Bld) 49.8 % [facility] MCH (RBC) [Entitic mass] 32.8 pg 26.0 - 34.0 pg [facility] MCHC (RBC) [Mass/Vol] 34.7 g/dL 30.5 - 36.0 g/dL [facility] MCV (RBC) [Entitic vol] 94.7 fL 80.0 - 100.0 fL [facility] Monocytes (Bld) [#/Vol] 0.13 10*3/uL [facility] Monocytes/100 WBC (Bld) 4.4 % [facility] Neutrophils (Bld) [#/Vol] 1.24 10*3/uL Low [facility] Neutrophils/100 WBC (Bld) 42.5 % [facility] Nucleated RBC (Bld) [#/Vol] NINF [facility] Nucleated RBC/100 WBC (Bld) [Ratio] 0 % /100 WBC [facility] Platelet mean volume (Bld) [Entitic vol] 9.3 fL 9.0 - 12.7 fL [facility] Platelets (Bld) [#/Vol] 216 10*3/uL [facility] RBC (Bld) [#/Vol] 3.99 10*6/uL 3.90 - 5.2 0 m/uL [facility] WBC (Bld) [#/Vol] 2.93 10*3/uL Low [facility] Basophils (Bld) [#/Vol] 0.03 10*3/uL Normal <0.11 [facility] Comment on above: Order Comment: Speci men Type: BLOOD SPECIMENOrdering Facility: [facility] Address: [address] [place] [address] Performed By: #### 5 7021-8 ####[facility] [id number] [address] [facility] Basophils/100 WBC (Bld) 1.0 % Normal [facility] Comment on above: Order Comment: Speci men Type: BLOOD SPECIMENOrdering Facility: [facility] Address: [address] [place] [address] Performed By: #### 5 7021-8 ####[facility] [id number] [place] [address] [place] Differential cell count method Nom (Bld) Auto Normal [facility] Comment on above: Order Comment: Speci men Type: BLOOD SPECIMENOrdering Facility: [facility] Address: [address] [place] [address] Performed By: #### 5 7021-8 ####[facility] [id number] [place] [address] [place] Eosinophils (Bld) [#/Vol] 0.06 10*3/uL Normal <0.46 [facility] Comment on above: Order Comment: Speci men Type: BLOOD SPECIMENOrdering Facility: [facility] Address: [address] [place] [address] Performed By: #### 5 7021-8 ####[facility] [id number] [place] [address] [place] Eosinophils/100 WBC (Bld) 2.0 % Normal [facility] Comment on above: Order Comment: Speci men Type: BLOOD SPECIMENOrdering Facility: [facility] Address: [address] [place] [address] Performed By: #### 5 7021-8 ####[facility] [id number] [place] [address] [place] Erythrocyte distribution width (RBC) [Ratio] 11.2 % Low 11.5-15.0 [facility] Comment on above: Order Comment: Speci men Type: BLOOD SPECIMENOrdering Facility: [facility] Address: [address] [place] [address] Performed By: #### 5 7021-8 ####[facility] [id number] [place] [address] [place] Hematocrit (Bld) [Volume fraction] 37.8 % Normal 36.0-46.0 [facility] Comment on above: Order Comment: Speci men Type: BLOOD SPECIMENOrdering Facility: [facility] Address: [address] [place] [address] Performed By: #### 5 7021-8 ####[facility] IVONNETRINITYNCSUZY [id number] [place] [address] [place] Hemoglobin (Bld) [Mass/Vol] 13.1 g/dL Normal 11.5-15.5 [facility] Comment on above: Order Comment: Speci men Type: BLOOD SPECIMENOrdering Facility: [facility] Address: [address] [place] [address] Performed By: #### 5 7021-8 ####[facility] [id number] [place] [address] [place] Immature granulocytes (Bld) [#/Vol] 10*3/uL Normal <0.10 [facility] Comment on above: Order Comment: Speci men Type: BLOOD SPECIMENOrdering Facility: [facility] Address: [address] [place] [address] Performed By: #### 5 7021-8 ####[facility]ITALNCLIA [id number] [place] [address] [place] Immature granulocytes/100 WBC (Bld) 0.3 % Normal [facility] Comment on above: Order Comment: Speci men Type: BLOOD SPECIMENOrdering Facility: [facility] Address: [address] [place] [address] Performed By: #### 5 7021-8 ####[facility]ITALNCL[facility] [id number] [place] [address] [place] Lymphocytes (Bld) [#/Vol] 1.46 10*3/uL Normal 1.00-4.00 [facility] Comment on above: Order Comment: Speci men Type: BLOOD SPECIMENOrdering Facility: [facility] Address: [address] [place] [address] Performed By: #### 5 7021-8 ####[facility]OSPITALANGIELIA [id number] [place] [address] [place] Lymphocytes/100 WBC (Bld) 49.8 % Normal [facility] Comment on above: Order Comment: Speci men Type: BLOOD SPECIMENOrdering Facility: [facility] Address: [address] [place] [address] Performed By: #### 5 7021-8 ####[facility]ITALANGIELIA [id number] [place] [address] [place] MCH (RBC) [Entitic mass] 32.8 pg Normal 26.0-34.0 [facility] Comment on above: Order Comment: Speci men Type: BLOOD SPECIMENOrdering Facility: [facility] Address: [address] [place] [address] Performed By: #### 5 7021-8 ####[facility] [id number] [place] [address] [place] MCHC (RBC) [Mass/Vol] 34.7 g/dL Normal 30.5-36.0 [facility] Comment on above: Order Comment: Speci men Type: BLOOD SPECIMENOrdering Facility: [facility] Address: [address] [place] [address] Performed By: #### 5 7021-8 ####[facility]ITALNCLIA [id number] [place] [address] [place] MCV (RBC) [Entitic vol] 94.7 fL Normal 80.0-100.0 [facility] Comment on above: Order Comment: Speci men Type: BLOOD SPECIMENOrdering Facility: [facility] Address: [address] [place] [address] Performed By: #### 5 7021-8 ####[facility] [id number] [place] [address] [place] Monocytes (Bld) [#/Vol] 0.13 10*3/uL Normal <0.87 [facility] Comment on above: Order Comment: Speci men Type: BLOOD SPECIMENOrdering Facility: [facility] Address: [address] [place] [address] Performed By: #### 5 7021-8 ####[facility] CENTERLIA [id number] [place] [address] [place] Monocytes/100 WBC (Bld) 4.4 % Normal [facility] Comment on above: Order Comment: Speci men Type: BLOOD SPECIMENOrdering Facility: [facility] Address: [address] [place] [address] Performed By: #### 5 7021-8 ####[facility] CENTERLI [id number] [place] [address] [place] Neutrophils (Bld) [#/Vol] 1.24 10*3/uL Low 1.45-7.50 [facility] Comment on above: Order Comment: Speci men Type: BLOOD SPECIMENOrdering Facility: [facility] Address: [address] [place] [address] Performed By: #### 5 7021-8 ####[facility]ENTERA [id number] [place] [address] [place] Neutrophils/100 WBC (Bld) 42.5 % Normal [facility] Comment on above: Order Comment: Speci men Type: BLOOD SPECIMENOrdering Facility: [facility] Address: [address] [place] [address] Performed By: #### 5 7021-8 ####[facility] [id number] [place] [address] [place] Nucleated RBC (Bld) [#/Vol] 10*3/uL Normal <0.01 [facility] Comment on above: Order Comment: Speci men Type: BLOOD SPECIMENOrdering Facility: [facility] Address: [address] [place] [address] Performed By: #### 5 7021-8 ####[facility] FELI [id number] [place] [address] [place] Nucleated RBC/100 WBC (Bld) [Ratio] 0.0 /100 WBC Normal [facility] Comment on above: Order Comment: Speci men Type: BLOOD SPECIMENOrdering Facility: [facility] Address: [address] [place] [address] Performed By: #### 5 7021-8 ####[facility] IVONNETRINITYNCSUZY [id number] [place] [address] [place] Platelet mean volume (Bld) [Entitic vol] 9.3 fL Normal 9.0-12.7 [facility] Comment on above: Order Comment: Speci men Type: BLOOD SPECIMENOrdering Facility: [facility] Address: [address] [place] [address] Performed By: #### 5 7021-8 ####[facility] IVONNETRINITYNCSANCHEZA [id number] [place] [address] [place] Platelets (Bld) [#/Vol] 216 10*3/uL Normal 150-400 [facility] Comment on above: Order Comment: Speci men Type: BLOOD SPECIMENOrdering Facility: [facility] Address: [address] [place] [address] Performed By: #### 5 7021-8 ####[facility]ITALNCLIA [id number] [place] [address] [place] RBC (Bld) [#/Vol] 3.99 10*6/uL Normal 3.90-5.20 [facility] Comment on above: Order Comment: Speci men Type: BLOOD SPECIMENOrdering Facility: [facility] Address: [address] [place] [address] Performed By: #### 5 7021-8 ####[facility] CHARLOTTEWNCLIA [id number] [place] [address] [facility] [place] WBC (Bld) [#/Vol] 2.93 10*3/uL Low 3.70-11.00 [facility] Comment on above: Order Comment: Speci men Type: BLOOD SPECIMENOrdering Facility: [facility] Address: [address] [place] [id number] Performed By: #### 5 7021-8 ####[facility]ITALNCLIA [id number] [place] [address] [facility] [place] Comprehensive metabolic 2000 panelOrdered By: Meeta Lau on 02-01-2025 Albumin [Mass/Vol] 3.9 g/dL 3.9 - 4.9 g/dL [facility] ALP [Catalytic activity/Vol] 64 U/L 34 - 123 U/L [facility] ALT [Catalytic activity/Vol] 31 U/L 7 - 38 U/L [facility] Anion gap [Moles/Vol] 13 mmol/L 8 - 15 mmol/L [facility] AST [Catalytic activity/Vol] 19 U/L 13 - 35 U/L [facility] Bilirubin [Mass/Vol] 0.4 mg/dL 0.2 - 1 .3 mg/dL [facility] Calcium [Mass/Vol] 9.6 mg/dL 8.5 - 10. 2 mg/dL [facility] Chloride [Moles/Vol] 105 mmol/L 98 - 10 7 mmol/L [facility] CO2 [Moles/Vol] 22 mmol/L 22 - 30 mmol/L [facility] Creatinine [Mass/Vol] 0.57 mg/dL Low 0.58 - 0.96 mg/dL [facility] GFR/1.73 sq M.predicted among non-blacks MDRD (S/P/Bld) [Vol rate/Area] 98 mL/min/{1.73_m2} - PINF [facility] Comment on above: Estimated Glomerular Filtration Rate (eGFR) is calculated using the 2020 CKD-EPI creatinine equation. This equation utilizes serum creatinine, sex, and age as parameters. The creatinine assay has traceable calibration to isotope dilution-mass spectrometry. Refer to KDIGO guidelines for clinical interpretation. In patients with unstable renal function, e.g. those with acute kidney injury, the eGFR may not accurately reflect actual GFR. Glucose [Mass/Vol] 116 mg/dL High 74 - 99 mg/dL [facility] Comment on above: The [place] Diabete s Association (ADA) provides guidance for cutoff values for fasting glucose and random glucose. The ADA defines fasting as no caloric intake for at least 8 hours. Fasting plasma glucose results between 100 to 125 mg/dL indicate increased risk for diabetes (prediabetes). Fasting plasma glucose results greater than or equal to 126 mg/dL meet the criteria for diagnosis of diabetes. In the absence of unequivocal hyperglycemia, results should be confirmed by repeat testing. In a patient with classic symptoms of hyperglycemia or hyperglycemic crisis, random plasma glucose results greater than or equal to 200 mg/dL meet the criteria for diagnosis of diabetes. Reference: Standards of Medical Care in Diabetes 2016, [place] Diabetes Association. Diabetes Care. 2016.39(Suppl 1). Interpretation and review of laboratory results Abnormal [facility] Potassium [Moles/Vol] 4.2 mmol/L 3.7 - 5.1 mmol/L [facility] Protein [Mass/Vol] 6.5 g/dL 6.3 - 8.0 g/dL [facility] Sodium [Moles/Vol] 140 mmol/L 136 - 144 mmol/L [facility] Urea nitrogen [Mass/Vol] 11 mg/dL 7 - 21 mg/dL [facility] Comprehensive metabolic 2000 panelon 02-01-2025 Albumin [Mass/Vol] 3.9 g/dL Normal 3.9-4.[address] [facility] Comment on above: Order Comment: Speci men Type: BLOOD SPECIMENOrdering Facility: [facility] Address: [address] [place] [address] Performed By: #### 2 4323-8, 80733-5 ####[facility] ROSY [facility]ENTERH[facility]DEN [id number] [place] [address] [place] ALP [Catalytic activity/Vol] 64 U/L Normal 34-123 [facility] Comment on above: Order Comment: Speci men Type: BLOOD SPECIMENOrdering Facility: [facility] Address: [address] [place], [place] [address] Performed By: #### 2 4323-8, ####[facility] ROSY MILESA [id number] [place] [address] [place] ALT [Catalytic activity/Vol] 31 U/L Normal 7-38 [facility] Comment on above: Order Comment: Speci men Type: BLOOD SPECIMENOrdering Facility: [facility] Address: [address] [place] [address] Performed By: #### 2 4323-8, ####[facility] IVONNETRINITYNCSANCHEZA [id number] [place] [address] [place] Anion gap [Moles/Vol] 13 mmol/L Normal 8-15 [facility] Comment on above: Order Comment: Speci men Type: BLOOD SPECIMENOrdering Facility: [facility] Address: [address] [place] [address] Performed By: #### 2 4323-8, ####[facility] IVONNETRINITYNCSANCHEZA [id number] [place] [address] [place] AST [Catalytic activity/Vol] 19 U/L Normal 13-35 [facility] Comment on above: Order Comment: Speci men Type: BLOOD SPECIMENOrdering Facility: [facility] Address: [address] [place] [address] Performed By: #### 2 4323-8, ####[facility] IVONNETRINITYNCLIA [id number] [place] [address] [place] Bilirubin [Mass/Vol] 0.4 mg/dL Normal 0.2-1.3 [facility] Comment on above: Order Comment: Speci men Type: BLOOD SPECIMENOrdering Facility: [facility] Address: [address] [place] [address] Performed By: #### 2 4323-8, ####[facility] ROSY MILLTOWNCLIA [id number] [place] [address] [place] Calcium [Mass/Vol] 9.6 mg/dL Normal 8.5-10.[address] [facility] Comment on above: Order Comment: Speci men Type: BLOOD SPECIMENOrdering Facility: [facility] Address: [address] [place] [address] Performed By: #### 2 432-8, ####[facility] MILLTOWNCLIA [id number] [place] [address] [place] Chloride [Moles/Vol] 105 mmol/L Normal 98-107 [facility] Comment on above: Order Comment: Speci men Type: BLOOD SPECIMENOrdering Facility: [facility] Address: [address] [place] [address] Performed By: #### 2 4328, ####[facility] MILLWNCLIA [id number] [place] [address] [place] CO2 [Moles/Vol] 22 mmol/L Normal 22-30 [facility] Comment on above: Order Comment: Speci men Type: BLOOD SPECIMENOrdering Facility: [facility] Address: [address] [place] [address] Performed By: #### 2 4328, ####[facility] MILLTOWNCLIA [id number] [place] [address] [place] Creatinine [Mass/Vol] 0.57 mg/dL Low 0.58-0.96 [facility] Comment on above: Order Comment: Speci men Type: BLOOD SPECIMENOrdering Facility: [facility] Address: [address] [place] [address] Performed By: #### 2 4323-8, ####[facility] MILLTOWNCLIA [id number] [place] [address] [place] Creatinine and Glomerular filtration rate.predicted panel (S/P/Bld) 98 mL/min/1.73m??? Normal >=60 [facility] Comment on above: Order Comment: Teriserina silva Type: BLOOD SPECIMENOrdering Facility: [facility] Address: [address] [place] [address] Result Comment: Coco mated Glomerular Filtration Rate (eGFR) is calculated using the 2020 CKD-EPI creatinine equation. This equation utilizes serum creatinine, sex, and age as parameters. The creatinine assay has traceable calibration to isotope dilution-mass spectrometry. Refer to KDIGO guidelines for clinical interpretation. In patients with unstable renal function, e.g. those with acute kidney injury, the eGFR may not accurately reflect actual GFR. Performed By: #### 2 4323-8, 86932-2 ####[facility] [id number] [place] [address] [place] Glucose [Mass/Vol] 116 mg/dL High 74-[address] [facility] Comment on above: Order Comment: Cam silva Type: BLOOD SPECIMENOrdering Facility: [facility] Address: [address] [place] [address] Result Comment: The [place] Diabetes Association (ADA) provides guidance for cutoff values for fasting glucose and random glucose. The ADA defines fasting as no caloric intake for at least 8 hours. Fasting plasma glucose results between 100 to 125 mg/dL indicate increased risk for diabetes (prediabetes). Fasting plasma glucose results greater than or equal to 126 mg/dL meet the criteria for diagnosis of diabetes. In the absence of unequivocal hyperglycemia, results should be confirmed by repeat testing. In a patient with classic symptoms of hyperglycemia or hyperglycemic crisis, random plasma glucose results greater than or equal to 200 mg/dL meet the criteria for diagnosis of diabetes. Reference: Standards of Medical Care in Diabetes 2016, [place] [employer]. Diabetes Care. 2016.39(Suppl 1). Performed By: #### 2 4323-8, 13000-6 ####[facility] CENTERLIA [id number] [place] [address] [place] Potassium [Moles/Vol] 4.2 mmol/L Normal 3.7-5.1 [facility] Comment on above: Order Comment: Speci men Type: BLOOD SPECIMENOrdering Facility: [facility] Address: [address] [place] [address] Performed By: #### 2 4323-8, 97278-7 ####[facility] MILLLUANAA [id number] [place] [address] [place] Protein [Mass/Vol] 6.5 g/dL Normal 6.3-8.[address] [facility] Comment on above: Order Comment: Speci men Type: BLOOD SPECIMENOrdering Facility: [facility] Address: [address] [place] [address] Performed By: #### 2 4323-8, ####[facility] CHARLOTTEADRIANNE [id number] [place] [address] [place] Sodium [Moles/Vol] 140 mmol/L Normal 136-[address] [facility] Comment on above: Order Comment: Speci men Type: BLOOD SPECIMENOrdering Facility: [facility] Address: [address] [place] [address] Performed By: #### 2 4323-8, ####[facility] CHARLOTTESOPHIELIA [id number] [place] [address] [place] Urea nitrogen [Mass/Vol] 11 mg/dL Normal 7-21 [facility] Comment on above: Order Comment: Speci men Type: BLOOD SPECIMENOrdering Facility: [facility] Address: [address] [place] [address] Performed By: #### 2 4323-8, ####[facility]PITALNCLIA [id number] [place] [address] [place] MAGNESIUMon 02-01-2025 Magnesium [Mass/Vol] 1.9 mg/dL 1.7 - 2 .3 mg/dL [facility] Magnesium SerPl-mCncon 02-01 Magnesium [Mass/Vol] 1.9 mg/dL Normal 1.7-2.3 [facility] Comment on above: Order Comment: Speci men Type: BLOOD SPECIMENOrdering Facility: [facility] Address: [address] [place] [address] [place] [address] Performed By: #### 2 4323-8, 05799-8 ####[facility] ROSY MILLTOWNCLIA [id number] [place] [address] [place] Magnesium [Mass/Vol]on 02-01 Interpretation and review of laboratory results Normal [facility] No Panel InformationOrdered By: Meeta Lau on 02-01-2025 [facility] Rona 01-26-2025 CNPN Telephone (HEMAWS) LIZ ROBLES ([id number]) 1955 F Date Time Provider Department 01/26/25 [place] MARTINEZ During your visit today, we recorded the following information about you: Sylwia Sanchez 01/26/2025 8:29 AM Signed Patient called to schedule April.She advised her D! Should not be 7 hrs that it takes no more than 3 hrs. Please advise Lilly Alcantar RN 01/26/2025 9:34 AM Signed Spoke with pharmacist, Harpreet Lopez. D1 should be 3-4 hours and D8, D15 are 2 hours. EVERT Maher Melissa 02/03/2025 7:58 AM Signed Schedule updated Allergies As of Date: 01/26/2025 Noted Allergy Reaction HQCKZOP-GWX-RGU REDUCTASE INHIBIT*12/13/2024 17 - Myalgia Date Reviewed: 01/25/2025 Reviewed by: Ene Steinberg RN - Fully Assessed Reason for Visit: Patient Question [1477] Prescriptions as of 02/03/2025 - famotidine (PEPCID) 20 mg tablet Take 20 mg by mouth two times a day. - prochlorperazine (COMPAZINE) 10 mg tablet Take 1 tablet by mouth every 6 hours as needed. - lisinopril (ZESTRIL) 5 mg tablet Take 2.5 mg by mouth once daily. - omeprazole (PRILOSEC) 40 mg capsule Take 40 mg by mouth once daily. 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 2 mg/dL [facility] Chloride [Moles/Vol] 102 mmol/L 98 - 10 7 mmol/L [facility] CO2 [Moles/Vol] 24 mmol/L 22 - 30 mmol/L [facility] Creatinine [Mass/Vol] 0.61 mg/dL 0.58 - 0.96 mg/dL [facility] GFR/1.73 sq M.predicted among non-blacks MDRD (S/P/Bld) [Vol rate/Area] 96 mL/min/{1.73_m2} - PINF [facility] Comment on above: Estimated Glomerular Filtration Rate (eGFR) is calculated using the 2020 CKD-EPI creatinine equation. This equation utilizes serum creatinine, sex, and age as parameters. The creatinine assay has traceable calibration to isotope dilution-mass spectrometry. Refer to KDIGO guidelines for clinical interpretation. In patients with unstable renal function, e.g. those with acute kidney injury, the eGFR may not accurately reflect actual GFR. Glucose [Mass/Vol] 109 mg/dL High 74 - 99 mg/dL [facility] Comment on above: The [place] Diabete s Association (ADA) provides guidance for cutoff values for fasting glucose and random glucose. The ADA defines fasting as no caloric intake for at least 8 hours. Fasting plasma glucose results between 100 to 125 mg/dL indicate increased risk for diabetes (prediabetes). Fasting plasma glucose results greater than or equal to 126 mg/dL meet the criteria for diagnosis of diabetes. In the absence of unequivocal hyperglycemia, results should be confirmed by repeat testing. In a patient with classic symptoms of hyperglycemia or hyperglycemic crisis, random plasma glucose results greater than or equal to 200 mg/dL meet the criteria for diagnosis of diabetes. Reference: Standards of Medical Care in Diabetes 2016, [place] Diabetes Association. Diabetes Care. 2016.39(Suppl 1). Interpretation and review of laboratory results Abnormal [facility] Potassium [Moles/Vol] 4.1 mmol/L 3.7 - 5.1 mmol/L [facility] Sodium [Moles/Vol] 135 mmol/L Low 136 - 144 mmol/L [facility] Urea nitrogen [Mass/Vol] 11 mg/dL 7 - 21 mg/dL [facility] Basic metabolic 2000 panelon 01-25-2025 Anion gap [Moles/Vol] 9 mmol/L Normal 8-15 [facility] Comment on above: Order Comment: Speci men Type: BLOOD SPECIMENOrdering Facility: [facility] Address: [address] [id number] Performed By: #### 2 4321-2 ####[facility] [id number] [place] [address] [place] Calcium [Mass/Vol] 8.9 mg/dL Normal 8.5-10.[address] [facility] Comment on above: Order Comment: Speci men Type: BLOOD SPECIMENOrdering Facility: [facility] Address: [address] [place], [place] [address] Performed By: #### 2 4321-2 ####[facility] CENTERLI [id number] [place] [address] [place] Chloride [Moles/Vol] 102 mmol/L Normal 98-107 [facility] Comment on above: Order Comment: Speci men Type: BLOOD SPECIMENOrdering Facility: [facility] Address: [address] [place] [address] Performed By: #### 2 4321-2 ####[facility] MONICANCSANCHEZA [id number] [place] [address] [place] CO2 [Moles/Vol] 24 mmol/L Normal 22-30 [facility] Comment on above: Order Comment: Speci men Type: BLOOD SPECIMENOrdering Facility: [facility] Address: [address] [place] [address] Performed By: #### 2 4321-2 ####[facility]ITALNCMO[facility] [id number] [address] [place] Creatinine [Mass/Vol] 0.61 mg/dL Normal 0.58-0.96 [facility] Comment on above: Order Comment: Speci men Type: BLOOD SPECIMENOrdering Facility: [facility] Address: [address] [place] [address] Performed By: #### 2 4321-2 ####[facility] HOSPITALNCLIA [id number] [address] Creatinine and Glomerular filtration rate.predicted panel (S/P/Bld) 96 mL/min/1.73m??? Normal >=60 [facility] Comment on above: Order Comment: Speci men Type: BLOOD SPECIMENOrdering Facility: [facility] Address: [address] [place] [address] Result Comment: Coco mated Glomerular Filtration Rate (eGFR) is calculated using the 2020 CKD-EPI creatinine equation. This equation utilizes serum creatinine, sex, and age as parameters. The creatinine assay has traceable calibration to isotope dilution-mass spectrometry. Refer to KDIGO guidelines for clinical interpretation. In patients with unstable renal function, e.g. those with acute kidney injury, the eGFR may not accurately reflect actual GFR. Performed By: #### 2 4321-2 ####[facility] CHARLOTTEWNCLIA [id number] [place] [address] [place] Glucose [Mass/Vol] 109 mg/dL High 74-[address] [facility] Comment on above: Order Comment: Speci men Type: BLOOD SPECIMENOrdering Facility: [facility] Address: [address] [place], [place] [address] Result Comment: The [place] Diabetes Association (ADA) provides guidance for cutoff values for fasting glucose and random glucose. The ADA defines fasting as no caloric intake for at least 8 hours. Fasting plasma glucose results between 100 to 125 mg/dL indicate increased risk for diabetes (prediabetes). Fasting plasma glucose results greater than or equal to 126 mg/dL meet the criteria for diagnosis of diabetes. In the absence of unequivocal hyperglycemia, results should be confirmed by repeat testing. In a patient with classic symptoms of hyperglycemia or hyperglycemic crisis, random plasma glucose results greater than or equal to 200 mg/dL meet the criteria for diagnosis of diabetes. Reference: Standards of Medical Care in Diabetes 2016, [place] Diabetes Association. Diabetes Care. 2016.39(Suppl 1). Performed By: #### 2 4321-2 ####[facility] CHARLOTTEWNHLIA [id number] [place] [address] [place] Potassium [Moles/Vol] 4.1 mmol/L Normal 3.7-5.1 [facility] Comment on above: Order Comment: Speci men Type: BLOOD SPECIMENOrdering Facility: [facility] Address: [address] [place] [address] Performed By: #### 2 4321-2 ####[facility] CHARLOTTEWNCLIA [id number] [place] [address] [place] Sodium [Moles/Vol] 135 mmol/L Low 136-[address] [facility] Comment on above: Order Comment: Speci men Type: BLOOD SPECIMENOrdering Facility: [facility] Address: [address] [place], [place] [address] Performed By: #### 2 4321-2 ####[facility] HOSPITALNCLIA [id number] [place] [address] [place] Urea nitrogen [Mass/Vol] 11 mg/dL Normal 7-21 [facility] Comment on above: Order Comment: Speci men Type: BLOOD SPECIMENOrdering Facility: [facility] Address: [address] [place], [place] [address] [address] Performed By: #### 2 4321-2 ####[facility] [id number] [place] [address] [place] CBC W Auto Differential pane l (Bld)on 01-25-2025 Basophils (Bld) [#/Vol] 0.04 10*3/uL [facility] Basophils/100 WBC (Bld) 1.1 % [facility] Differential cell count method Nom (Bld) Auto [facility] Eosinophils (Bld) [#/Vol] 0.14 10*3/uL [facility]ATIONF [facility] Eosinophils/100 WBC (Bld) 3.9 % [facility] Erythrocyte distribution width (RBC) [Ratio] 11.1 % Low 11.5 - 15.0 % [facility] Hematocrit (Bld) [Volume fraction] 38.3 % 36.0 - 46.0 % [facility] Hemoglobin (Bld) [Mass/Vol] 13.3 g/dL 11.5 - 15.5 g/dL [facility] Immature granulocytes (Bld) [#/Vol] [facility] Immature granulocytes/100 WBC (Bld) 0.6 % [facility] Interpretation and review of laboratory results Abnormal [facility] Lymphocytes (Bld) [#/Vol] 1.28 10*3/uL [facility] Lymphocytes/100 WBC (Bld) 36 % [facility] MCH (RBC) [Entitic mass] 32.9 pg 26.0 - 34.0 pg [facility] MCHC (RBC) [Mass/Vol] 34.7 g/dL 30.5 - 36.0 g/dL [facility] MCV (RBC) [Entitic vol] 94.8 fL 80.0 - 100.0 fL [facility] Monocytes (Bld) [#/Vol] 0.17 10*3/uL [facility] Monocytes/100 WBC (Bld) 4.8 % [facility] Neutrophils (Bld) [#/Vol] 1.91 10*3/uL [facility] Neutrophils/100 WBC (Bld) 53.6 % [facility] Nucleated RBC (Bld) [#/Vol] NINF [facility] Nucleated RBC/100 WBC (Bld) [Ratio] 0 % /100 WBC [facility] Platelet mean volume (Bld) [Entitic vol] 9.7 fL 9.0 - 12.7 fL [facility] Platelets (Bld) [#/Vol] 200 10*3/uL [facility] RBC (Bld) [#/Vol] 4.04 10*6/uL 3.90 - 5.2 0 m/uL [facility] WBC (Bld) [#/Vol] 3.56 10*3/uL Low [facility] Basophils (Bld) [#/Vol] 0.04 10*3/uL Normal <0.11 [facility] Comment on above: Order Comment: Speci men Type: BLOOD SPECIMENOrdering Facility: [facility] Address: [address] [place] [address] Performed By: #### 5 7021-8 ####[facility] CENTERA [id number] [address] OF [facility] Basophils/100 WBC (Bld) 1.1 % Normal [facility] Comment on above: Order Comment: Speci men Type: BLOOD SPECIMENOrdering Facility: [facility] Address: [address] [place] [address] Performed By: #### 5 7021-8 ####[facility] CENTERLIA [id number] [address] [place] Differential cell count method Nom (Bld) Auto Normal [facility] Comment on above: Order Comment: Speci men Type: BLOOD SPECIMENOrdering Facility: [facility] Address: [address] [place] [address] Performed By: #### 5 7021-8 ####[facility] CENTERLIA [id number] [place] [address] [place] Eosinophils (Bld) [#/Vol] 0.14 10*3/uL Normal <0.46 [facility] Comment on above: Order Comment: Speci men Type: BLOOD SPECIMENOrdering Facility: [facility] Address: [address] [place] [address] Performed By: #### 5 7021-8 ####[facility] HOSPITALNCSANCHEZA [id number] [place] [address] [place] Eosinophils/100 WBC (Bld) 3.9 % Normal [facility] Comment on above: Order Comment: Speci men Type: BLOOD SPECIMENOrdering Facility: [facility] Address: [address] [place] [address] Performed By: #### 5 7021-8 ####[facility]OSPITALNCMO[facility] [id number] [place] [address] [place] Erythrocyte distribution width (RBC) [Ratio] 11.1 % Low 11.5-15.0 [facility] Comment on above: Order Comment: Speci men Type: BLOOD SPECIMENOrdering Facility: [facility] Address: [address] [place] [address] Performed By: #### 5 7021-8 ####[facility] HOSPITALNCLI [id number] [place] [address] [place] Hematocrit (Bld) [Volume fraction] 38.3 % Normal 36.0-46.0 [facility] Comment on above: Order Comment: Speci men Type: BLOOD SPECIMENOrdering Facility: [facility] Address: [address] [place] [address] Performed By: #### 5 7021-8 ####[facility]ITALNCLIA [id number] [place] [address] [place] Hemoglobin (Bld) [Mass/Vol] 13.3 g/dL Normal 11.5-15.5 [facility] Comment on above: Order Comment: Speci men Type: BLOOD SPECIMENOrdering Facility: [facility] Address: [address] [place] [address] Performed By: #### 5 7021-8 ####[facility] [place] NICHOLASLIA [id number] [place] [address] [place] Immature granulocytes (Bld) [#/Vol] 10*3/uL Normal <0.10 [facility] Comment on above: Order Comment: Speci men Type: BLOOD SPECIMENOrdering Facility: [facility] Address: [address] [place] [address] Performed By: #### 5 7021-8 ####[facility]ENTERA [id number] [place] [address] [place] Immature granulocytes/100 WBC (Bld) 0.6 % Normal [facility] Comment on above: Order Comment: Speci men Type: BLOOD SPECIMENOrdering Facility: [facility] Address: [address] [place] [address] Performed By: #### 5 7021-8 ####[facility] CENTERLIA [id number] [place] [address] [place] Lymphocytes (Bld) [#/Vol] 1.28 10*3/uL Normal 1.00-4.00 [facility] Comment on above: Order Comment: Speci men Type: BLOOD SPECIMENOrdering Facility: [facility] Address: [address] [place] [address] Performed By: #### 5 7021-8 ####[facility] CENTERLIA [id number] [place] [address] [place] Lymphocytes/100 WBC (Bld) 36.0 % Normal [facility] Comment on above: Order Comment: Speci men Type: BLOOD SPECIMENOrdering Facility: [facility] Address: [address] [place] [address] Performed By: #### 5 7021-8 ####[facility] IVONNETRINITYNCSANCHEZA [id number] [place] [address] [place] MCH (RBC) [Entitic mass] 32.9 pg Normal 26.0-34.0 [facility] Comment on above: Order Comment: Speci men Type: BLOOD SPECIMENOrdering Facility: [facility] Address: [address] [place] [address] Performed By: #### 5 7021-8 ####[facility] [id number] [place] [address] [place] MCHC (RBC) [Mass/Vol] 34.7 g/dL Normal 30.5-36.0 [facility] Comment on above: Order Comment: Speci men Type: BLOOD SPECIMENOrdering Facility: [facility] Address: [address] [place] [address] Performed By: #### 5 7021-8 ####[facility] [id number] [place] [address] [place] MCV (RBC) [Entitic vol] 94.8 fL Normal 80.0-100.0 [facility] Comment on above: Order Comment: Speci men Type: BLOOD SPECIMENOrdering Facility: [facility] Address: [address] [place] [address] Performed By: #### 5 7021-8 ####[facility] [id number] [place] [address] [place] Monocytes (Bld) [#/Vol] 0.17 10*3/uL Normal <0.87 [facility] Comment on above: Order Comment: Speci men Type: BLOOD SPECIMENOrdering Facility: [facility] Address: [address] [place] [address] Performed By: #### 5 7021-8 ####[facility]ITALNCLIA [id number] [place] [address] [place] Monocytes/100 WBC (Bld) 4.8 % Normal [facility] Comment on above: Order Comment: Speci men Type: BLOOD SPECIMENOrdering Facility: [facility] Address: [address] [place] [address] Performed By: #### 5 7021-8 ####[facility]ITALNCLIA [id number] [place] [address] [place] Neutrophils (Bld) [#/Vol] 1.91 10*3/uL Normal 1.45-7.50 [facility] Comment on above: Order Comment: Speci men Type: BLOOD SPECIMENOrdering Facility: [facility] Address: [address] [place] [address] Performed By: #### 5 7021-8 ####[facility]ENTERA [id number] [place] [address] [place] Neutrophils/100 WBC (Bld) 53.6 % Normal [facility] Comment on above: Order Comment: Speci men Type: BLOOD SPECIMENOrdering Facility: [facility] Address: [address] [place] [address] Performed By: #### 5 7021-8 ####[facility] [id number] [place] [address] [place] Nucleated RBC (Bld) [#/Vol] 10*3/uL Normal <0.01 [facility] Comment on above: Order Comment: Speci men Type: BLOOD SPECIMENOrdering Facility: [facility] Address: [address] [place] [address] Performed By: #### 5 7021-8 ####[facility]A [id number] [place] [address] [place] Nucleated RBC/100 WBC (Bld) [Ratio] 0.0 /100 WBC Normal [facility] Comment on above: Order Comment: Speci men Type: BLOOD SPECIMENOrdering Facility: [facility] Address: [address] [place] [address] Performed By: #### 5 7021-8 ####[facility] FELI [id number] [place] [address] [place] Platelet mean volume (Bld) [Entitic vol] 9.7 fL Normal 9.0-12.7 [facility] Comment on above: Order Comment: Speci men Type: BLOOD SPECIMENOrdering Facility: [facility] Address: [address] [place] [address] Performed By: #### 5 7021-8 ####[facility] IVONNETRINITYHAYDEN [id number] [place] [address] [place] Platelets (Bld) [#/Vol] 200 10*3/uL Normal 150-400 [facility] Comment on above: Order Comment: Speci men Type: BLOOD SPECIMENOrdering Facility: [facility] Address: [address] [place] [address] Performed By: #### 5 7021-8 ####[facility] HOSPITALNCSANCHEZA [id number] [place] [address] [place] RBC (Bld) [#/Vol] 4.04 10*6/uL Normal 3.90-5.20 [facility] Comment on above: Order Comment: Speci men Type: BLOOD SPECIMENOrdering Facility: [facility] Address: [address] [place] [address] Performed By: #### 5 7021-8 ####[facility]ITALNCLIA [id number] [place] [address] [place] WBC (Bld) [#/Vol] 3.56 10*3/uL Low 3.70-11.00 [facility] Comment on above: Order Comment: Speci men Type: BLOOD SPECIMENOrdering Facility: [facility] Address: [address] [place] [address] Performed By: #### 5 7021-8 ####[facility] ROSY CORONADOTRINITYHAYDEN [id number] [place] [address] [place] Rona 01-21-2025 CNPN Telephone (HEMAWS) LIZ ROBLES ([id number]) 1955 F Date Time Provider Department 01/21/25 [place] MARTINEZ During your visit today, we recorded the following information about you: Thais Cochran 01/21/2025 12:51 PM Signed Patient calls stating she has a throbbing ache from her port. She is asking if this is okay and what she can take for it. Please advise. Lilly Meier, EVERT 01/21/2025 2:11 PM Signed Care Coordination Triage Note Cancer [place] Situation: Patient reports Other pain at port site Background: Breast cancer on Carbo/Taxol/Keytruda, start date 01/18/25 Assessment: Call to patient, states port site is throbbing and achy, no constant and more so during the day, rates 4/10, no swelling, warmth at site, pain not radiating out from port. She is asking if ok to take something for pain. Advised Tylenol per box instructions. No fever or chills. Port site splitter tender, was placed on 01/10/25, stiches did fall out, was tender when used for treatment on 01/18/25 but states look better than it did on , bruising and redness better, using a band-aid on site to decrease friction from clothing. Patient aware that I will update Dr. Martinez. Reminded of after hours number and reviewed sign/symptoms to call about. Recommendations: Per RNCC, patient directed to: Manage at home. Instructions provided. Will update Dr. Martinez and call back if any further instructions. Lilly Meier RN January 21, 2025 1:46 PM Orville Martinez DO 01/21/2025 2:53 PM Signed Agree. Tylenol for pain control. ED evaluation if over the weekend she sees any pus coming from anywhere around the port. Doubt that will happen. I think it is just healing itself and right now. DO Conor [place] Pamela S, LPN 01/21/2025 3:03 PM Addendum Spoke with pt. Informed Tylenol for the pain, If over the weekend she notices any pus coming from anywhere around the port that she should go to the ER. Pt. Voiced understanding. Fiordaliza Gonzales LPN Allergies As of Date: 01/21/2025 Noted Allergy Reaction EIIZXZO-QOR-GON REDUCTASE INHIBIT*12/13/2024 17 - Myalgia Date Reviewed: 01/18/2025 Reviewed by: Eden Boogie RN - Fully Assessed Reason for Visit: Care Coordination [3491] Cmt: Pain at port site Prescriptions as of 01/21/2025 - prochlorperazine (COMPAZINE) 10 mg tablet Take 1 tablet by mouth every 6 hours as needed. - lisinopril (ZESTRIL) 5 mg tablet Take 2.5 mg by mouth once daily. - omeprazole (PRILOSEC) 40 mg capsule Take 40 mg by mouth once daily. 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) [C50.919, Z*01/03/2025 Enlarged lymph node [R59.9] 01/11/2025 Encounter Status:Closed by FIORDALIZA GONZALES on 01/21/25 [facility] Rona 01-19-2025 CNPN Telephone (AMY) LIZ ROBLES ([id number]) 1955 F Date Time Provider Department 01/19/25 JENNIFER BURK During your visit today, we recorded the following information about you: Jennifer Burk RN 01/19/2025 9:59 AM Signed CYCLE 1/DAY 1 POST TREATMENT CALL Today's date: January 19, 2025 Treatment Regimen: Carboplatin/Paclitaxel/ Keytruda C1D1 Date: 01/18/25 Called patient to follow-up on symptom management, no answer. Left a VM requesting a call back from patient. EVERT [facility] Thais 01/19/2025 10:13 AM Signed Patient returned call. Care coord line rings busy Jennifer Burk RN 01/19/2025 12:22 PM Signed CYCLE 1/DAY 1 POST TREATMENT CALL Today's date: January 19, 2025 Treatment Regimen: Carboplatin/Taxol/Keytr uda C1D1 Date: 01/18/25 Called patient to follow-up on symptom management. Spoke with patient I feel normal today. SYMPTOM ASSESSMENT Neuro: Denies headache or dizziness. CV/Resp: Patient stated she was walking today and felt a little bit of pressure go across my chest and went down my arm and then it went away. Lasted maybe 5 minutes, pain went down right arm armpit to elbow. Denies jaw/shoulder pain or an elephant sitting on her chest. Denies difficulty breathing, SOB, or pain with breathing. Patient stated this is not the first time this has happened. Patient stated sometimes when she first gets up to walk she gets this feeling and then it resolves. Patient stated she has been worked up by cardiology in the past and everything has been fine. Discussed s/s of when to contact our office. GI/: None Denies N/V/D Integument: Facial Flushing -discussed s/s to monitor/call Activity: Patient reported no changes in energy level, energy level good Pain: Yes, I get a sharp pain in the tumor but I get those periodically. Started a month ago, intermittent and 5/10. Fever: No Chills: No Any new referrals needed? No Reinforced CURRENT treatment education based on current and anticipated symptoms. Discussed port/line care and patient verbalizes understanding: Yes Patient instructed to contact office or after hours Hematology/Oncology fellow for: temperature >= 100.4; questions or concerns. Patient verbalized understanding of when to seek medical attention and after hours number protocol. 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 - lisinopril (ZESTRIL) 5 mg tablet Take 2.5 mg by mouth once daily. - omeprazole (PRILOSEC) 40 mg capsule Take 40 mg by mouth once daily. 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) [C50.919, Z*01/03/2025 Enlarged lymph node [R59.9] 01/11/2025 Encounter Status:Closed by JENNIFER BURK on 01/31/25 Normal [facility] CBC W Auto Differential pane l (Bld)on 01-18-2025 Basophils (Bld) [#/Vol] 0.06 10*3/uL [facility] Basophils/100 WBC (Bld) 1.1 % [facility] Differential cell count method Nom (Bld) Auto [facility] Eosinophils (Bld) [#/Vol] 0.22 10*3/uL [facility] Eosinophils/100 WBC (Bld) 3.9 % [facility] Erythrocyte distribution width (RBC) [Ratio] 11.5 % 11.5 - 15.0 % [facility] Hematocrit (Bld) [Volume fraction] 42.5 % 36.0 - 46.0 % [facility] Hemoglobin (Bld) [Mass/Vol] 14.9 g/dL 11.5 - 15.5 g/dL [facility] Immature granulocytes (Bld) [#/Vol] [facility] Immature granulocytes/100 WBC (Bld) 0.4 % [facility] Lymphocytes (Bld) [#/Vol] 1.95 10*3/uL [facility] Lymphocytes/100 WBC (Bld) 34.6 % [facility] MCH (RBC) [Entitic mass] 33.3 pg 26.0 - 34.0 pg [facility] MCHC (RBC) [Mass/Vol] 35.1 g/dL 30.5 - 36.0 g/dL [facility] MCV (RBC) [Entitic vol] 94.9 fL 80.0 - 100.0 fL [facility] Monocytes (Bld) [#/Vol] 0.47 10*3/uL [facility] Monocytes/100 WBC (Bld) 8.3 % [facility] Neutrophils (Bld) [#/Vol] 2.91 10*3/uL [facility] Neutrophils/100 WBC (Bld) 51.7 % [facility] Nucleated RBC (Bld) [#/Vol] [facility] Nucleated RBC/100 WBC (Bld) [Ratio] 0 % /100 WBC [facility] Platelet mean volume (Bld) [Entitic vol] 9.3 fL 9.0 - 12.7 fL [facility] Platelets (Bld) [#/Vol] 212 10*3/uL [facility] RBC (Bld) [#/Vol] 4.48 10*6/uL 3.90 - 5.2 0 m/uL [facility] WBC (Bld) [#/Vol] 5.63 10*3/uL [facility] Basophils (Bld) [#/Vol] 0.06 10*3/uL Normal <0.11 [facility] Comment on above: Order Comment: Speci men Type: BLOOD SPECIMENOrdering Facility: [facility] Address: [address] [place] [address] Performed By: #### 5 7021-8 ####[facility] [id number] [address] [place] Basophils/100 WBC (Bld) 1.1 % Normal [facility] Comment on above: Order Comment: Speci men Type: BLOOD SPECIMENOrdering Facility: [facility] Address: [address] [place], [place] [address] Performed By: #### 5 7021-8 ####[facility]ITALNCLIA [id number] [place] [address] [place] Differential cell count method Nom (Bld) Auto Normal [facility] Comment on above: Order Comment: Speci men Type: BLOOD SPECIMENOrdering Facility: [facility] Address: [address] [place] [address] Performed By: #### 5 7021-8 ####[facility] [id number] [place] [address] [place] Eosinophils (Bld) [#/Vol] 0.22 10*3/uL Normal <0.46 [facility] Comment on above: Order Comment: Speci men Type: BLOOD SPECIMENOrdering Facility: [facility] Address: [address] [place] [address] Performed By: #### 5 7021-8 ####[facility] [id number] [place] [address] [place] Eosinophils/100 WBC (Bld) 3.9 % Normal [facility] Comment on above: Order Comment: Speci men Type: BLOOD SPECIMENOrdering Facility: [facility] Address: [address] [place] [address] Performed By: #### 5 7021-8 ####[facility] [id number] [place] [address] [place] Erythrocyte distribution width (RBC) [Ratio] 11.5 % Normal 11.5-15.0 [facility] Comment on above: Order Comment: Speci men Type: BLOOD SPECIMENOrdering Facility: [facility] Address: [address] [place] [address] Performed By: #### 5 7021-8 ####[facility]ITALNCLIA [id number] [place] [address] [place] Hematocrit (Bld) [Volume fraction] 42.5 % Normal 36.0-46.0 [facility] Comment on above: Order Comment: Speci men Type: BLOOD SPECIMENOrdering Facility: [facility] Address: [address] [place] [address] Performed By: #### 5 7021-8 ####[facility]ITALN[facility] [id number] [place] [address] [place] Hemoglobin (Bld) [Mass/Vol] 14.9 g/dL Normal 11.5-15.5 [facility] Comment on above: Order Comment: Speci men Type: BLOOD SPECIMENOrdering Facility: [facility] Address: [address] [place] [address] Performed By: #### 5 7021-8 ####[facility] [id number] [place] [address] [place] Immature granulocytes (Bld) [#/Vol] 10*3/uL Normal <0.10 [facility] Comment on above: Order Comment: Speci men Type: BLOOD SPECIMENOrdering Facility: [facility] Address: [address] [place] [address] Performed By: #### 5 7021-8 ####[facility] [id number] [place] [address] [place] Immature granulocytes/100 WBC (Bld) 0.4 % Normal [facility] Comment on above: Order Comment: Speci men Type: BLOOD SPECIMENOrdering Facility: [facility] Address: [address] [place] [address] Performed By: #### 5 7021-8 ####[facility] [id number] [place] [address] [place] Lymphocytes (Bld) [#/Vol] 1.95 10*3/uL Normal 1.00-4.00 [facility] Comment on above: Order Comment: Speci men Type: BLOOD SPECIMENOrdering Facility: [facility] Address: [address] [place] [address] Performed By: #### 5 7021-8 ####[facility] HOSPITALHAYDEN [id number] [place] [address] [place] Lymphocytes/100 WBC (Bld) 34.6 % Normal [facility] Comment on above: Order Comment: Speci men Type: BLOOD SPECIMENOrdering Facility: [facility] Address: [address] [place] [address] Performed By: #### 5 7021-8 ####[facility]ITALNCM[facility] [id number] [place] [address] [place] MCH (RBC) [Entitic mass] 33.3 pg Normal 26.0-34.0 [facility] Comment on above: Order Comment: Speci men Type: BLOOD SPECIMENOrdering Facility: [facility] Address: [address] [place] [address] Performed By: #### 5 7021-8 ####[facility] [id number] [place] [address] [place] MCHC (RBC) [Mass/Vol] 35.1 g/dL Normal 30.5-36.0 [facility] Comment on above: Order Comment: Speci men Type: BLOOD SPECIMENOrdering Facility: [facility] Address: [address] [place] [address] Performed By: #### 5 7021-8 ####[facility]ITALNCLIA [id number] [place] [address] [place] MCV (RBC) [Entitic vol] 94.9 fL Normal 80.0-100.0 [facility] Comment on above: Order Comment: Speci men Type: BLOOD SPECIMENOrdering Facility: [facility] Address: [address] [place] [address] Performed By: #### 5 7021-8 ####[facility] JACKSONVILLEWNCLIA [id number] [place] [address] [place] Monocytes (Bld) [#/Vol] 0.47 10*3/uL Normal <0.87 [facility] Comment on above: Order Comment: Speci men Type: BLOOD SPECIMENOrdering Facility: [facility] Address: [address] [place] [address] Performed By: #### 5 7021-8 ####[facility] CENTERLIA [id number] [place] [address] [place] Monocytes/100 WBC (Bld) 8.3 % Normal [facility] Comment on above: Order Comment: Speci men Type: BLOOD SPECIMENOrdering Facility: [facility] Address: [address] [place] [address] Performed By: #### 5 7021-8 ####[facility] [id number] [place] [address] [place] Neutrophils (Bld) [#/Vol] 2.91 10*3/uL Normal 1.45-7.50 [facility] Comment on above: Order Comment: Speci men Type: BLOOD SPECIMENOrdering Facility: [facility] Address: [address] [place] [address] Performed By: #### 5 7021-8 ####[facility] CENTERLIA [id number] [place] [address] [place] Neutrophils/100 WBC (Bld) 51.7 % Normal [facility] Comment on above: Order Comment: Speci men Type: BLOOD SPECIMENOrdering Facility: [facility] Address: [address] [place] [address] Performed By: #### 5 7021-8 ####[facility] CENTERLIA [id number] [place] [address] [place] Nucleated RBC (Bld) [#/Vol] 10*3/uL Normal <0.01 [facility] Comment on above: Order Comment: Speci men Type: BLOOD SPECIMENOrdering Facility: [facility] Address: [address] [place] [address] Performed By: #### 5 7021-8 ####[facility] [id number] [place] [address] [place] Nucleated RBC/100 WBC (Bld) [Ratio] 0.0 /100 WBC Normal [facility] Comment on above: Order Comment: Speci men Type: BLOOD SPECIMENOrdering Facility: [facility] Address: [address] [place] [address] Performed By: #### 5 7021-8 ####[facility] [id number] [place] [address] [place] Platelet mean volume (Bld) [Entitic vol] 9.3 fL Normal 9.0-12.7 [facility] Comment on above: Order Comment: Speci men Type: BLOOD SPECIMENOrdering Facility: [facility] Address: [address] [place] [address] Performed By: #### 5 7021-8 ####[facility] [id number] [place] [address] [place] Platelets (Bld) [#/Vol] 212 10*3/uL Normal 150-400 [facility] Comment on above: Order Comment: Speci men Type: BLOOD SPECIMENOrdering Facility: [facility] Address: [address] [place] [address] Performed By: #### 5 7021-8 ####[facility] [id number] [place] [address] [place] RBC (Bld) [#/Vol] 4.48 10*6/uL Normal 3.90-5.20 [facility] Comment on above: Order Comment: Speci men Type: BLOOD SPECIMENOrdering Facility: [facility] Address: [address] [place], [place] [address] Performed By: #### 5 7021-8 ####[facility] [place] CORONADOTRINITYNCSANCHEZA [id number] [place] [address] [place] WBC (Bld) [#/Vol] 5.63 10*3/uL Normal 3.70-11.00 [facility] Comment on above: Order Comment: Speci men Type: BLOOD SPECIMENOrdering Facility: [facility] Address: [address] [place], [place] [address] Performed By: #### 5 7021-8 ####[facility] IVONNETRINITYNCLIA [id number] [place] [address] [place] CORTISOL, SERUMon 01-18-2025 Cortisol [Mass/Vol] 21.7 ug/dL High 4.8 - 19 .5 ug/dL [facility] Comment on above: Provided reference r cristian is from 6-10 AM sample collection time. Cortisol Reference Range: 6-10 AM = 4.8-19.5 ug/dL, 4-8 PM = 2.5-11.9 ug/dL Comprehensive metabolic 2000 panelOrdered By: Meeta Lau on 01-18-2025 Albumin [Mass/Vol] 4.3 g/dL 3.9 - 4.9 g/dL [facility] ALP [Catalytic activity/Vol] 71 U/L 34 - 123 U/L [facility] ALT [Catalytic activity/Vol] 29 U/L 7 - 38 U/L [facility] Anion gap [Moles/Vol] 14 mmol/L 8 - 15 mmol/L [facility] AST [Catalytic activity/Vol] 22 U/L 13 - 35 U/L [facility] Bilirubin [Mass/Vol] 0.6 mg/dL 0.2 - 1 .3 mg/dL [facility] Calcium [Mass/Vol] 9.7 mg/dL 8.5 - 10. 2 mg/dL [facility] Chloride [Moles/Vol] 107 mmol/L 98 - 10 7 mmol/L [facility] CO2 [Moles/Vol] 20 mmol/L Low 22 - 30 mmol/L [facility] Creatinine [Mass/Vol] 0.7 mg/dL 0.58 - 0.96 mg/dL [facility] GFR/1.73 sq M.predicted among non-blacks MDRD (S/P/Bld) [Vol rate/Area] 93 mL/min/{1.73_m2} - PINF [facility] Comment on above: Estimated Glomerular Filtration Rate (eGFR) is calculated using the 2020 CKD-EPI creatinine equation. This equation utilizes serum creatinine, sex, and age as parameters. The creatinine assay has traceable calibration to isotope dilution-mass spectrometry. Refer to KDIGO guidelines for clinical interpretation. In patients with unstable renal function, e.g. those with acute kidney injury, the eGFR may not accurately reflect actual GFR. Glucose [Mass/Vol] 121 mg/dL High 74 - 99 mg/dL [facility] Comment on above: The [place] Diab[employer] Association (ADA) provides guidance for cutoff values for fasting glucose and random glucose. The ADA defines fasting as no caloric intake for at least 8 hours. Fasting plasma glucose results between 100 to 125 mg/dL indicate increased risk for diabetes (prediabetes). Fasting plasma glucose results greater than or equal to 126 mg/dL meet the criteria for diagnosis of diabetes. In the absence of unequivocal hyperglycemia, results should be confirmed by repeat testing. In a patient with classic symptoms of hyperglycemia or hyperglycemic crisis, random plasma glucose results greater than or equal to 200 mg/dL meet the criteria for diagnosis of diabetes. Reference: Standards of Medical Care in Diabetes 2016, [place] [employer]. Diabetes Care. 2016.39(Suppl 1). Interpretation and review of laboratory results Abnormal [facility] Potassium [Moles/Vol] 3.8 mmol/L 3.7 - 5.1 mmol/L [facility] Protein [Mass/Vol] 6.8 g/dL 6.3 - 8.0 g/dL [facility] Sodium [Moles/Vol] 141 mmol/L 136 - 144 mmol/L [facility] Urea nitrogen [Mass/Vol] 12 mg/dL 7 - 21 mg/dL [facility] Comprehensive metabolic 2000 panelon 01-18-2025 Albumin [Mass/Vol] 4.3 g/dL Normal 3.9-4.[address] [facility] Comment on above: Order Comment: Cam silva Type: BLOOD SPECIMENOrdering Facility: [facility] Address: [address] [place] [address] Performed By: #### 1 9123-9, 80943-2 ####[facility] ROSY MILLTOWNCLIA [id number] [place] [address] [place] ALP [Catalytic activity/Vol] 71 U/L Normal 34-123 [facility] Comment on above: Order Comment: Speci men Type: BLOOD SPECIMENOrdering Facility: [facility] Address: [address] [place] [address] Performed By: #### 1 9123-9, 78632-5 ####[facility] IVONNEWANGIELIA [id number] [place] [address] [place] ALT [Catalytic activity/Vol] 29 U/L Normal 7-38 [facility] Comment on above: Order Comment: Speci men Type: BLOOD SPECIMENOrdering Facility: [facility] Address: [address] [place] [address] Performed By: #### 1 9123-9, 77497-2 ####[facility] IVONNEWNCLIA [id number] [place] [address] [place] Anion gap [Moles/Vol] 14 mmol/L Normal 8-15 [facility] Comment on above: Order Comment: Speci men Type: BLOOD SPECIMENOrdering Facility: [facility] Address: [address] [place] [address] Performed By: #### 1 9123-9, 35074-3 ####[facility] MILLTOWNCLIA [id number] [place] [address] [place] AST [Catalytic activity/Vol] 22 U/L Normal 13-35 [facility] Comment on above: Order Comment: Speci men Type: BLOOD SPECIMENOrdering Facility: [facility] Address: [address] [place] [address] Performed By: #### 1 9123-9, 12494-6 ####[facility]ITALNCLIA [id number] [place] [address] [place] Bilirubin [Mass/Vol] 0.6 mg/dL Normal 0.2-1.3 [facility] Comment on above: Order Comment: Speci men Type: BLOOD SPECIMENOrdering Facility: [facility] Address: [address] [place] [address] Performed By: #### 1 9123-9, 65786-2 ####[facility] MILLTOWNCLIA [id number] [place] [address] [place] Calcium [Mass/Vol] 9.7 mg/dL Normal 8.5-10.[address] [facility] Comment on above: Order Comment: Speci men Type: BLOOD SPECIMENOrdering Facility: [facility] Address: [address] [place] [address] Performed By: #### 1 9123-9, 22460-6 ####[facility] MILLTOWNCLIA [id number] [place] [address] [place] Chloride [Moles/Vol] 107 mmol/L Normal 98-107 [facility] Comment on above: Order Comment: Speci men Type: BLOOD SPECIMENOrdering Facility: [facility] Address: [address] [place] [address] Performed By: #### 1 9123-9, 50271-7 ####[facility] MILLTOWNCLIA [id number] [place] [address] [place] CO2 [Moles/Vol] 20 mmol/L Low 22-30 [facility] Comment on above: Order Comment: Speci men Type: BLOOD SPECIMENOrdering Facility: [facility] Address: [address] [place] [address] Performed By: #### 1 9123-9, 50009-1 ####[facility] MILLTOWNCLIA [id number] [place] [address] [place] Creatinine [Mass/Vol] 0.70 mg/dL Normal 0.58-0.96 [facility] Comment on above: Order Comment: Cam silva Type: BLOOD SPECIMENOrdering Facility: [facility] Address: [address] [place] [address] Performed By: #### 1 9123-9, 51840-5 ####[facility] [id number] [address] [place] Creatinine and Glomerular filtration rate.predicted panel (S/P/Bld) 93 mL/min/1.73m??? Normal >=60 [facility] Comment on above: Order Comment: Cam silva Type: BLOOD SPECIMENOrdering Facility: [facility] Address: [address] [place] [address] Result Comment: Coco mated Glomerular Filtration Rate (eGFR) is calculated using the 2020 CKD-EPI creatinine equation. This equation utilizes serum creatinine, sex, and age as parameters. The creatinine assay has traceable calibration to isotope dilution-mass spectrometry. Refer to KDIGO guidelines for clinical interpretation. In patients with unstable renal function, e.g. those with acute kidney injury, the eGFR may not accurately reflect actual GFR. Performed By: #### 1 9123-9, 63479-6 ####[facility] [id number] [place] [address] [place] Glucose [Mass/Vol] 121 mg/dL High 74-[address] [facility] Comment on above: Order Comment: Cam silva Type: BLOOD SPECIMENOrdering Facility: [facility] Address: [address] [place] [address] Result Comment: The [place] Diabetes Association (ADA) provides guidance for cutoff values for fasting glucose and random glucose. The ADA defines fasting as no caloric intake for at least 8 hours. Fasting plasma glucose results between 100 to 125 mg/dL indicate increased risk for diabetes (prediabetes). Fasting plasma glucose results greater than or equal to 126 mg/dL meet the criteria for diagnosis of diabetes. In the absence of unequivocal hyperglycemia, results should be confirmed by repeat testing. In a patient with classic symptoms of hyperglycemia or hyperglycemic crisis, random plasma glucose results greater than or equal to 200 mg/dL meet the criteria for diagnosis of diabetes. Reference: Standards of Medical Care in Diabetes 2016, [place] [employer]. Diabetes Care. 2016.39(Suppl 1). Performed By: #### 1 9123-9, 51911-9 ####[facility] CHARLOTTEWNCLIA [id number] [place] [address] [place] Potassium [Moles/Vol] 3.8 mmol/L Normal 3.7-5.1 [facility] Comment on above: Order Comment: Speci men Type: BLOOD SPECIMENOrdering Facility: [facility] Address: [address] [place] [address] Performed By: #### 1 9123-9, 33978-6 ####[facility]ITAL[facility] [id number] [place] [address] [place] JUAN DANIEL Protein [Mass/Vol] 6.8 g/dL Normal 6.3-8.[address] [facility] Comment on above: Order Comment: Speci men Type: BLOOD SPECIMENOrdering Facility: [facility] Address: [address] [place] [address] Performed By: #### 1 9123-9, 52917-8 ####[facility] CENTERLIA [id number] [place] [address] [place] Sodium [Moles/Vol] 141 mmol/L Normal 136-[address] [facility] Comment on above: Order Comment: Speci men Type: BLOOD SPECIMENOrdering Facility: [facility] Address: [address] [place] [address] Performed By: #### 1 9123-9, ####[facility]ITAL[facility]CLIA [id number] [place] [address] [place] Urea nitrogen [Mass/Vol] 12 mg/dL Normal 7-21 [facility] Comment on above: Order Comment: Speci men Type: BLOOD SPECIMENOrdering Facility: [facility] Address: [address] [place], [place] [address] Performed By: #### 1 9123-9, 05380-8 ####[facility] ROSYSAMY CORONADONATHANWNCLIA [id number] [place] [address] [place] Cortis SerPl-mCncon 01-19-20 Cortisol [Mass/Vol] 21.7 ug/dL High 4.8-19.5 [facility] Comment on above: Order Comment: Speci men Type: BLOOD SPECIMENOrdering Facility: [facility] Address: [address] [place] [address] Result Comment: Prov ided reference range is from 6-10 AM sample collection time. Cortisol Reference Range: 6-10 AM = 4.8-19.5 ug/dL, 4-8 PM = 2.5-11.9 ug/dL Performed By: #### 3 024-7, 3016-3, 2143-6 ####[facility] LABCLIA [id number] [place] [id number] [place] Cortisol [Mass/Vol]on 2024 Interpretation and review of laboratory results Abnormal [facility] MAGNESIUMon 01-18-2025 Magnesium [Mass/Vol] 2.2 mg/dL 1.7 - 2 .3 mg/dL [facility] Magnesium SerPl-mCncon 01-18 Magnesium [Mass/Vol] 2.2 mg/dL Normal 1.7-2.3 [facility] Comment on above: Order Comment: Speci men Type: BLOOD SPECIMENOrdering Facility: [facility] Address: [address] [place], [place] [address] Performed By: #### 1 9123-9, 02012-7 ####[facility] ROSYSAMY CORONADONATHANWNCLIA [id number] [place] [address] [place] Magnesium [Mass/Vol]on 01-18 Interpretation and review of laboratory results Normal [facility] No Panel Informationon 01-18 Interpretation and review of laboratory results Normal [facility] No Panel InformationOrdered By: Meeta Lau on 01-18-2025 [facility] T4 FREE/FREE THYROXINEon Free T4 [Mass/Vol] 1 ng/dL 0.9 - 1.7 ng/dL [facility] T4 Free SerPl-mCncon 01-18- 025 Free T4 [Mass/Vol] 1.0 ng/dL Normal 0.9-1.[address] [facility] Comment on above: Order Comment: Cam silva Type: BLOOD SPECIMENOrdering Facility: [facility] Address: [address] [place] [address] Performed By: #### 3 024-7, 3015-3, 2143-01 ####[facility] LABCLIA [id number] [address] OF JUAN DNAIEL THYROID STIMULATING HORMONEo n 01-18-2025 TSH Qn 3.58 m[IU]/L [facility] TSH SerPl-aCncon 01-18-2025 TSH Qn 3.580 m[IU]/L Normal 0.270-4.200 [facility] Comment on above: Order Comment: Cam silva Type: BLOOD SPECIMENOrdering Facility: [facility] Address: [address] [place] [address] Performed By: #### 3 024-7, 3015-3, 2143-01 ####[facility] LABCLIA [id number] [address] STATES OF [place]UAN DANIEL CNPLinnea 01-17-2025 SHAQN Telephone (AMY) LIZ ROBLES ([id number]) 1955 F Date Time Provider Department 01/17/25 MASCI, ORVILLE A HEMAWS During your visit today, we recorded the following information about you: Marcserina Orville Trae 01/17/2025 3:19 PM Signed The ultrasound of her uterus showed a endometrial polyp. This will need to be evaluated by gynecology. Referral order filed. DO Bo Alejandra Melanie, LPN 01/17/2025 3:45 PM Signed Patient is aware of ultrasound results. PSS- please contact patient to schedule with AWARD MACHINE OPERATOR here. MARISSA Rodriguez Melissa 01/18/2025 8:40 AM Signed Scheduled first avail with Commission Broker - 03/04. Patient will informed while here for treatment today 01/18. Dania Mireles LPN 01/18/2025 8:50 AM Signed Pt notified. Dania Mireles LPN Allergies As of Date: 01/17/2025 Noted Allergy Reaction [id number]-[id number] REDUCTASE INHIBIT*12/13/2024 17 - Myalgia Date Reviewed: 01/10/2025 Reviewed by: Samantha Light RN - Fully Assessed Reason for Visit: Results [95] Primary Visit Diagnosis:Endometrial polyp [N84.0] Order(s):CONSULT TO GYNECOLOGY [9013] Order #: [id number]: 1 FUTURE Prescriptions as of 01/18/2025 - prochlorperazine (COMPAZINE) 10 mg tablet Take 1 tablet by mouth every 6 hours as needed. - lisinopril (ZESTRIL) 5 mg tablet Take 2.5 mg by mouth once daily. - omeprazole (PRILOSEC) 40 mg capsule Take 40 mg by mouth once daily. Facility-Administered Medications as of 01/18/2025 - pembrolizumab 200 mg in NaCl 0.9% 66 mL (KEYTRUDA) - PACLitaxel 149.58 mg in NaCl 0.9% 299.93 mL (TAXOL) - NaCl 0.9% iv infusion - diphenhydrAMINE 50 mg injection (BENADRYL) - hydrocortisone sodium succinate (PF) 100 mg injection (Solu-CORTEF) - EPINEPHrine HCl (PF) 1 mg/mL (1 mL) 0.3 mg injection - sodium chloride 0.9 % (flush) 10-20 mL (BD POSIFLUSH) - sodium chloride 0.9 % (flush) 10-20 mL (BD POSIFLUSH) Problem List As Of Date 01/17/2025 Noted Resolved Malignant neoplasm of upper-inner quadrant of l*01/03/2025 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) [C50.919, Z*01/03/2025 Enlarged lymph node [R59.9] 01/11/2025 Encounter Status:Closed by DANIA MIRELES on 01/18/25 [facility] CNPLinnea 01-14-2025 CNPN Telephone (HEMAWS) LIZ ROBLES ([id number]) 1955 F Date Time Provider Department 01/14/25 JENNIFER BURK During your visit today, we recorded the following information about you: Jennifer Burk RN 01/14/2025 11:25 AM Signed Patient does not have antiemetic on file. Order pended for compazine. Can patient continue omeprazole? She uses PRN. Declined emla cream. EVERT East Paul A, DO 01/14/2025 12:24 PM Signed Recommend she not use omeprazole if possible. Use Pepcid instead. DO Wm Hill Amber, RN 01/14/2025 1:15 PM Signed Patient informed of Dr. Martinez's response, stated understanding. 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 - lisinopril (ZESTRIL) 5 mg tablet Take 2.5 mg by mouth once daily. - omeprazole (PRILOSEC) 40 mg capsule Take 40 mg by mouth once daily. Problem List As Of Date 01/14/2025 Noted Resolved Malignant neoplasm of upper-inner quadrant of l*01/03/2025 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) [C50.919, Z*01/03/2025 Enlarged lymph node [R59.9] 01/11/2025 Prescriptions ordered this encounter Disp Refills Start End PROCHLORPERAZINE MALEATE 10 MG TABLET 30 t* 2 01/14/2025 Route: PO Sig: Take 1 tablet by mouth every 6 hours as needed. Encounter Status:Closed by JENNIFER BURK on 01/14/25 Normal [facility] FEMALE PELVIS TRANSVAGon 01-14-2025 FEMALE PELVIS TRANSVAG * * *Final Report* * * DATE OF EXAM: Jan 14 2025 8:22AM [facility]U 1060 - US FEMALE PELVIS TRANSVAG / PROCEDURE REASON: Increased endometrial stripe thickness * * * * Physician Interpretation * * * * EXAMINATION: TRANSVAGINAL AND LIMITED TRANSABDOMINAL FEMALE PELVIC ULTRASOUND CLINICAL HISTORY: Possible endometrial thickening seen on prior CT scan. TECHNIQUE: Sonography of the pelvis was performed by transvaginal and transabdominal (limited) techniques. Images were obtained and stored in a permanent archive. MQ: [id number] COMPARISON: CT of the abdomen and pelvis with contrast from 12/14/2024 RESULT: Uterus: -Size: 7.1 x 3.2 x 4.3 cm -Orientation: Anteverted -Endometrial echo complex: Nonspecific fluid is present within the endometrial canal. The endometrial stripe measures 0.3 cm in thickness. However, within the endometrium there is a 1.1 x 0.7 x 1.0 cm polypoid lesion. Would advise referral to gynecology and further evaluation with hysteroscopy. -Cervix: Unremarkable. -Adenomyosis assessment: There are no sonographic findings of adenomyosis. -Fibroids: There are no fibroids. Right Ovary: Not visualized, possibly due to overlying bowel gas. Left Ovary: Not visualized, possibly due to overlying bowel gas. Free Fluid: No abnormal free fluid is present. IMPRESSION: 1. Within the endometrium there is a 1.1 x 0.7 x 1.0 cm polypoid lesion. Would advise referral to gynecology and further evaluation with hysteroscopy. ACTIONABLE RESULT: FOLLOW-UP Acuity: Actionable Findings: Female reproductive tract (pelvis, adnexa) Routing code: WH_1 Recommendation: SUBSPECIALTY CONSULTATION SUGGESTED Time Frame: At the discretion of the clinical team. COMMUNICATION: Results will be communicated with the ordering provider via devsisters staff message or phone message by Imaging Support Services within 2 business days of report finalization. --END OF FINDING-- Algorithms for management of incidental imaging findings can be found on the [facility] Intranet Sharepoint site at: [email or web address] Managing%20Incidental%2 0Findi ngs%20at%20Imaging/Form s/AllItems.[email or web address] Cargo Agent: MELANIE Transcribe Date/Time: Jan 17 2025 12:12P Dictated by : RICHELLE GONZALEZ MD This examination was interpreted and the report reviewed and electronically signed by: RICHELLE GONZALEZ MD on Jan 17 2025 12:15PM EST [id number] ACTIONABLE Invalid Interpretation Code [facility] Rona 01-13-2025 TESHA Telephone (AMY) LIZ ROBLES ([id number]) 1955 F Date Time Provider Department 01/13/25 ORVILLE MARTINEZ During your visit today, we recorded the following information about you: Thais Cochran 01/13/2025 8:20 AM Signed Patient is requesting to speak with someone regarding cooling cap. Jennifer Burk RN 01/13/2025 8:52 AM Signed Called and spoke to patient. Discussed the Paxman option at [facility]. Discussed the portable system options like penguin and artic cold caps. Patient informed that she will need 1-2 coolers of dry ice, 2 people to help apply, change every 20 min starting before treatment, during treatment, and after treatment. Patient did not realize the work that would go into the cold caps and stated she might settle for a wig instead. Cranial prosthesis order pended to Dr. Martinez. EVERT East Paul A, DO 01/13/2025 9:41 AM Signed The following approved medication requests have been transmitted electronically. Requested Prescriptions No prescriptions requested or ordered in this encounter DO Wm Hill Amber, RN 01/13/2025 10:12 AM Signed Patient informed that [facility] has a Paxman cooling system. Patient was given the rep's information to contact. Patient will let our office know what she decides to do. EVERT East Amber, RN 01/14/2025 11:26 AM Signed Patient decided that she is not going to use the paxman system. She will proceed with treatment next week. Jennifer Burk RN Allergies As of Date: 01/13/2025 Noted Allergy Reaction URTHQOT-DXE-YLL REDUCTASE INHIBIT*12/13/2024 17 - Myalgia Date Reviewed: 01/10/2025 Reviewed by: Samantha Light RN - Fully Assessed Reason for Visit: cooling cap [Other] Primary Visit Diagnosis:Breast cancer, stage 2, left (HCC) [C50.912] Order(s):CRANIAL PROSTHESIS [[id number]] Order #: [id number] Prescriptions as of 01/14/2025 - prochlorperazine (COMPAZINE) 10 mg tablet Take 1 tablet by mouth every 6 hours as needed. - lisinopril (ZESTRIL) 5 mg tablet Take 2.5 mg by mouth once daily. - omeprazole (PRILOSEC) 40 mg capsule Take 40 mg by mouth once daily. Problem List As Of Date 01/13/2025 Noted Resolved Malignant neoplasm of upper-inner quadrant of l*01/03/2025 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) [C50.919, Z*01/03/2025 Enlarged lymph node [R59.9] 01/11/2025 Encounter Status:Closed by JENNIFER BURK on 01/14/25 [facility] BRIEF OP NOTon 01-10-2025 BRIEF OP NOT HNO ID: [id number] Author: NIDIA WATERMAN MD Service: Interventional Radiology Author Type: Physician Type: Brief Op Note Filed: 01/10/2025 10:39 Note Text: BRIEF OPERATIVE / PROCEDURE NOTE LOG ID: [id number] SURGERY/PROCEDURE DATE: 01/10/2025 INCISION/PROCEDURE START TIME: 10:16 AM INCISION CLOSE/PROCEDURE END TIME: 10:33 AM SURGEON(S)/PROCEDURALIS T(S) AND INSTRUMENTATION DESIGNER(S): Surgeons and Role: * Nidia Waterman MD - Primary No Additional Staff SURGERY/PROCEDURE(S): Venous chest port placement. ANESTHESIA: Procedural Sedation FINDINGS: Right chest port placed using right IJ vein access. ESTIMATED BLOOD LOSS: 3 mL SPECIMENS: None COMPLICATIONS: None CLOSURE TECHNIQUE: Primary PRE-OP/PRE-PROCEDURE DIAGNOSIS: Left breast cancer. POST-OP/POST-PROCEDURE DIAGNOSIS: Same as Preop Patient was accompanied to the next level of care by a licensed practitioner from the surgical team pending completion of this brief op note (or operative note) SIGNATURE: Nidia Waterman MD PATIENT NAME: Liz Robles DATE: January 10, 2025 TIME: 10:38 AM [facility] HISTORY PHYSICALon HISTORY PHYSICAL HNO ID: [id number] Author: NIDIA WATERMAN MD Service: Interventional Radiology Author Type: Physician Type: H&P Filed: 01/10/2025 10:03 Note Text: PROCEDURAL SEDATION HISTORY AND PHYSICAL EXAM SERVICE DATE: 01/10/2025 SERVICE TIME: 10:02 AM Subjective HPI: This is a 69 year old female who presents with left breast cancer. PAST ANESTHESIA HISTORY: No history of adverse event PAST MEDICAL HISTORY Diagnosis Date Breast cancer (HCC) 11/2024 left breast Essential hypertension PAST SURGICAL HISTORY Procedure Laterality Date BX OF BREAST; INCISIONAL Left 11/2024 [id number] . hx of eye surgery Prior to Admission medications as of 01/10/25 0947 Medication Sig Last Dose Taking lisinopril (ZESTRIL) 5 mg tablet Take 2.5 mg by mouth once daily. omeprazole (PRILOSEC) 40 mg capsule Take 40 mg by mouth once daily. ALLERGIES Allergen Reactions Psdxtgl-Ogd-Dzk Red* Myalgia Objective PHYSICAL EXAM: The remainder of the physical exam is noncontributory. AIRWAY: Mouth opening greater than 3 fingerbreadths: Yes Neck Full Range of Motion: Yes LUNGS: Lungs clear to auscultation CARDIAC: Regular rhythm,Regular rate Assessment/Plan ASA Class: ASA Class: Patient with mild systemic disease Active Problems: * No active hospital problems. * Resolved Problems: * No resolved hospital problems. * Medication and Non-Pharmacologic VTE Prophylaxis/Anticoagula nts VTE Prophylaxis: VTE prophylaxis appropriate Provisional Diagnosis/Treatment Plan: Left breast cancer, for venous chest port placement. Sedation Goal: Moderate SIGNATURE: Nidia Waterman MD PATIENT NAME: Liz Robles DATE: January 10, 2025 TIME: 10:02 AM [facility] IR PORTOCATH PLACEMENTon IR PORTOCATH PLACEMENT * * *Final Report* * * DATE OF EXAM: Jan 10 2025 10:33AM [facility] 0792 - IR PORTOCATH PLACEMENT / PROCEDURE REASON: New Patient * * * * Physician Interpretation * * * * PROCEDURE: VENOUS PORT PLACEMENT Procedural Personnel Attending physician(s): Nidia Waterman M.D. Fellow physician(s): None Resident physician(s): None Advanced practice provider(s): None Medical Student(s): None Pre-procedure diagnosis: Left breast cancer. Post-procedure diagnosis: Same Indication: Administration of chemotherapy Additional clinical history: None PROCEDURE SUMMARY: - Venous access with ultrasound guidance - Tunneled port insertion under fluoroscopic guidance - Additional procedure(s): None PROCEDURE DETAILS: Pre-procedure History and imaging of central venous access reviewed (QCDR): Yes Consent: Risks, benefits, treatment options, potential complications and personnel to be involved were discussed (including the risks of radiation exposure, contrast and anesthesia administration, and any equipment needed for the procedure to ensure best possible outcome) with the patient and all questions were answered and consent was obtained prior to procedure. Transfusion of blood products: No Medication reconciliation: The patient's medications and allergies were reviewed in the electronic medical record and reconciled to the proposed procedure/treatment. Britt-procedure discussion: The appropriate elements of the pre-procedure discussion, safety check list and sign-out were performed. Time out: A time out was performed immediately prior to procedure start with the nursing and interventional team, correctly identifying the name, date of , procedure, anatomy (including marking of site and side if applicable), patient position, procedure consent form, relevant diagnostic and radiology test results, antibiotic administration if applicable, safety precautions, and procedure-specific equipment needs. Start of procedure: 1016 End of procedure: 1033 Patient position: Supine Antibiotics: None Antibiotic infusion start time: N/A Prophylactic antibiotic administered: None Preparation (MIPS): The site was prepared and draped using all elements of maximal sterile barrier technique including sterile gloves, sterile gown, cap, mask, large sterile sheet, sterile ultrasound probe cover, hand hygiene and cutaneous antisepsis with 2% chlorhexidine. Medical reason for site preparation exception (MIPS): Not applicable FLUOROSCOPIC RADIATION SUMMARY: Plane A, Air Kerma: 0.2 mGy Dose Area Product (DAP): 0.0554 Gy-cm2 Fluoro Time: 0:06 min:sec Radiation dose exceed 5 Gy: No If radiation dose exceeded 5 Gy, was counseling and instructional brochure provided: N/A Anesthesia/sedation Level of anesthesia/sedation: Moderate sedation (conscious sedation) Anesthesia/sedation administered by: Independent trained observer under attending supervision with continuous monitoring of the patient?s level of consciousness and physiologic status Total intra-service sedation time (minutes): 18 Local anesthesia: 2 % lidocaine Access Local anesthesia was administered. The vessel was sonographically evaluated and determined to be patent. Real time ultrasound was used to visualize needle entry into the vessel and a permanent image was stored. Vein accessed: Internal jugular vein Access technique: Micropuncture set with 21 gauge needle Venography Indication for venography: Not performed Vein catheterized: Not applicable Findings: Not applicable Port placement An incision was made at the upper chest, a pocket was created, and the catheter was tunneled subcutaneously to the venous access site and trimmed to appropriate length. The port was inserted into the pocket and the catheter was advanced via a peel-away sheath into the vein under fluoroscopic guidance. The port was not sutured into the pocket. Catheter tip location was fluoroscopically verified and a permanent image was stored. Port placed: 8 F Vaccess power injectable port. Catheter tip position: Cavoatrial junction Unique Device Identifier: Not available Catheter flush: Normal saline Closure The access site and incision were closed and sterile dressing(s) were applied. Access site closure technique: Absorbable suture and tissue adhesive Incision closure technique: Absorbable suture and tissue adhesive Patient discharged from procedure suite with device accessed: No Additional Details Additional description of procedure: None Equipment details: None Specimens removed: None Estimated blood loss (mL): Less than 10 Standardized report: SIR_Port_v2 The patient tolerated the procedure well. The patient was comfortable and was transferred to the recovery room in stable condition. Complications There were no immediate complications and no other complications. Attestation Signer name: Nidia Waterman MD I att (more content not included)... [facility] US AXILLA ONLY LTon - [facility] US AXILLA ONLY LT * * *Final Report* * * DATE OF EXAM: Jan 07 2025 8:04AM [facility] 0591 - [facility] US AXILLA ONLY LT / PROCEDURE REASON: multiple diagnoses * * * * Physician Interpretation * * * * [place] [address] #[id number] - [facility] US AXILLA ONLY LT HISTORY: 69 year-old patient seen for evaluation of the finding(s) described on recent MRI examination of the breasts. COMPARISON STUDIES: The present examination has been compared to prior imaging studies dated 11/06/2022 (mammogram), 11/26/2024 (mammogram), 12/01/2024 (mammogram) and 01/04/2025 (MRI). ULTRASOUND TECHNIQUE: Targeted ultrasound of the indicated area was performed. Katz scale images were saved. ULTRASOUND FINDINGS: There is a normal lymph node with circumscribed margins and echogenic fatty hilum in the left axilla, adjacent to the axillary vein, corresponding the finding described on the recent MRI examination. This demonstrates 2 mm of maximum cortical thickness and is benign. No pathologically enlarged lymph nodes and no unusual tito architecture is identified. IMPRESSION: Normal study. Negative for axillary adenopathy. Therefore, the scheduled axillary lymph node biopsy was not performed. Clinical follow up is recommended. The findings were discussed with the patient. BI-RADS Category 2: Benign Interpreting Radiologist: Jerome Rider M.D. Electronically signed on: 01/07/2025 Cargo Agent: ZEHRA Transcribe Date/Time: Jan 07 2025 8:04A Dictated by : JEROME RIDER MD This examination was interpreted and the report reviewed and electronically signed by: JEROME RIDER MD on Jan 07 2025 8:20AM EST [id number] Normal [facility] US Axilla - lefton IMPRESSION: Normal study. Negative for axillary adenopathy. Therefore, the scheduled axillary lymph node biopsy was not performed. Clinical follow up is recommended. The findings were discussed with the patient. BI-RADS Category 2: Benign Interpreting Radiologist: Jerome Rider M.D. Electronically signed on: 01/07/2025 Cargo Agent: ZEHRA Transcribe Date/Time: Jan 07 2025 8:04A Dictated by : JEROME RIDER MD This examination was interpreted and the report reviewed and electronically signed by: JEROME RIDER MD on Jan 07 2025 8:20AM EST DIVISION OF RADIOLOGY * * *Final Report* * * DATE OF EXAM: Jan 07 2025 8:04AM [facility] 0591 - [facility] US AXILLA ONLY LT / PROCEDURE REASON: multiple diagnoses * * * * Physician Interpretation * * * * [place] [address] #[id number] [facility] US AXILLA ONLY LT HISTORY: 69 year-old patient seen for evaluation of the finding(s) described on recent MRI examination of the breasts. COMPARISON STUDIES: The present examination has been compared to prior imaging studies dated 11/06/2022 (mammogram), 11/26/2024 (mammogram), 12/01/2024 (mammogram) and 01/04/2025 (MRI). ULTRASOUND TECHNIQUE: Targeted ultrasound of the indicated area was performed. Katz scale images were saved. ULTRASOUND FINDINGS: There is a normal lymph node with circumscribed margins and echogenic fatty hilum in the left axilla, adjacent to the axillary vein, corresponding the finding described on the recent MRI examination. This demonstrates 2 mm of maximum cortical thickness and is benign. No pathologically enlarged lymph nodes and no unusual tito architecture is identified. DIVISION OF RADIOLOGY Provider, Quan Garibay [facility] - 01/07/2025 * * *Final Report* * * DATE OF EXAM: Jan 07 2025 8:04AM [facility] 0591 - [facility] US AXILLA ONLY LT / PROCEDURE REASON: multiple diagnoses * * * * Physician Interpretation * * * * [facility] [id number] [place] [address] #[id number] - [facility] US AXILLA ONLY LT HISTORY: 69 year-old patient seen for evaluation of the finding(s) described on recent MRI examination of the breasts. COMPARISON STUDIES: The present examination has been compared to prior imaging studies dated 11/06/2022 (mammogram), 11/26/2024 (mammogram), 12/01/2024 (mammogram) and 01/04/2025 (MRI). ULTRASOUND TECHNIQUE: Targeted ultrasound of the indicated area was performed. Katz scale images were saved. ULTRASOUND FINDINGS: There is a normal lymph node with circumscribed margins and echogenic fatty hilum in the left axilla, adjacent to the axillary vein, corresponding the finding described on the recent MRI examination. This demonstrates 2 mm of maximum cortical thickness and is benign. No pathologically enlarged lymph nodes and no unusual tito architecture is identified. IMPRESSION IMPRESSION: Normal study. Negative for axillary adenopathy. Therefore, the scheduled axillary lymph node biopsy was not performed. Clinical follow up is recommended. The findings were discussed with the patient. BI-RADS Category 2: Benign Interpreting Radiologist: Jerome Rider M.D. Electronically signed on: 01/07/2025 Cargo Agent: ZEHRA Transcribe Date/Time: Jan 07 2025 8:04A Dictated by : JEROME RIDER MD This examination was interpreted and the report reviewed and electronically signed by: JEROME RIDER MD on Jan 07 2025 8:20AM EST [facility] Radiology Study observation (narrative) [facility] US Axilla - leftOrdered By: Ccf Provider on 01-07-2025 [facility] CNOVon 01-06-2025 CNOV Office Visit (WMHLST ) LIZ ROBLES ([id number]) 1955 F Date Time Provider Department 01/06/25 11:30 AM KIMMIE COLBY [facility] During your visit today, we recorded the following information about you: Weight Height 74.3 kg 1.651 m Kimmie Colby DO 01/11/2025 1:51 AM Signed NEW BREAST CANCER - INITIAL SURGICAL VISIT SERVICE DATE: 12/29/2024 REFERRING PROVIDER: Dr. Lidia Hirsch Consult requested for an opinion regarding the evaluation and treatment of a new breast issue. My final impression and recommendations will be communicated back to the requesting physician by way of the shared medical record or letter via US mail. SUBJECTIVE: REASON FOR TODAY'S VISIT: Breast Cancer Evaluation HISTORY of PRESENT ILLNESS: Liz Robles is a 69 year old White female who presents for an evaluation of a diagnosis of a new LEFT breast cancer. Patient felt a LEFT breast lump and underwent diagnotic imaging, at [place], on 11/26/2024 which showed a possible asymmetry in the left breast. Targeted US revealed a 2.6 x 1.4 x 2.3 cm, at 10:00, 4-5 cm from the nipple. US of the axilla showed a couple lymph nodes without definite abnormal morphology. Diagnosis was made at [facility] by means of ultrasound-guided core biopsy of Left breast on 12/01/2024. 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, ER negative, MS negative, HER2 - Breast MRI was performed on 01/04/2025 for further evaluation of extent of the disease process. Imaging revealed 2.7 cm known cancer @ 10:00 and a NME 1.2 x 1.4 x 2.8 cm area @ 9:00 (total span of disease 4 cm) MRI bx recommended if BCT is being considered. 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 [employer] Employment status: still working Social History Tobacco Use Smoking status: Never Smokeless tobacco: Never Vaping Use Vaping status: Never Used Substance Use Topics Alcohol use: Not Currently Drug use: Not Currently ACTIVE PROBLEM LIST Malignant Neoplasm of Upper-Inner Quadrant of Left Breast in Female, Estrogen Receptor Negative (Hcc) - 01/03/2025 Triple Negative Breast Cancer (Hcc) - 01/03/2025 FAMILY HISTORY: FAMILY HISTORY Problem Relation Age of Onset Liver Disease Mother No Known Problems Father No Known Problems Brother Liver Cancer Maternal Grandmother No Known Problems Maternal Grandfather Breast Cancer Maternal Aunt Cervical Cancer Maternal Aunt then Vaginal ca Lung Cancer Maternal Uncle smoker Lung Cancer Maternal Uncle smoker Breast cancer: Maternal Aunt (60's) Ovarian cancer:Negative Colon cancer:Negative Thyroid cancer:Negative Pancreatic cancer: Negative OBSTETRIC RELATED 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 hx of eye surgery ALLERGIES Allergen Reactions Lozvdtw-Rtk-Bmf Red* Myalgia CURRENT MEDICATIONS: iv contrast (will be provided with radiology test) MRI LT Breast Bx Inject, intravenously, once for 1 dose. No IV access, insert saline lock prior to the beginning of sedation, infusion, injection of imaging exam. Discontinue saline lock post exam. If Pt has a central line or IVAD, may access for administration according to line specific nursing protocol. Once exam is complete flush line and de-access according to line specific nursing protocol in the MR contrast administration guidelines link lisinopril (ZESTRIL) 5 mg tablet Take 2.5 mg by mouth once daily. omeprazole (PRILOSEC) 40 mg capsule Take 40 mg by mouth once daily. REVIEW OF SYSTEMS: GENERAL: No weight loss, malaise or fevers HEENT: Negative for frequent or significant headaches, No changes in hearing or vision RESPIRATORY: Negative for cough, wheezing, or shortness of breath CARDIOVASCULAR: Negative for chest pain, leg swelling, or heart palpitations MUSCULOSKELETAL: Negative for joint pain or swelling, back pain or muscle pain, no upper extremity swelling or lymphedema ABD: no abdominal pain INTEGUMENTARY: Denies Scleroderma or Lupus. Denies chronic skin conditions. BREASTS:She denies new palpable breast masses, skin changes, nipple discharge, nipple retraction, breast pain or masses in her axi (more content not included)... Normal [facility] MRI LIVER WO/W IVCONon 01-06 MRI LIVER WO/W IVCON * * *Final Report* * * DATE OF EXAM: Jan 06 2025 9:15AM WRM [id number] - MRI LIVER WO/W IVCON / PROCEDURE REASON: Lesion of liver greater than 1 cm in diameter * * * * Physician Interpretation * * * * Examination: MRI LIVER WO/W IVCON History: A few small low-density hepatic lesions. Indeterminate. COMPARISON: CT scans of 12/14/2024 TECHNIQUE: Routine liver mri protocol, including axial 3D gradient echo volume acquisition (VIBE) before and after Elucirem 7.5cc, axial gradient echo in- and opposed- phase, axial fast STIR, coronal HASTE. Image subtraction performed on 3D gradient echo image RESULT: Liver: 1.2 cm right hepatic lobe cyst on image 22 series 3. 0.6 cm right hepatic lobe cyst on image 27 series 3. Few millimeter cyst on image 38 series 3. No additional, suspicious or enhancing hepatic focus. Biliary: No bile duct dilation. The gallbladder is unremarkable. Common duct is normal in course and caliber. No filling defect within it. Spleen: No mass. No splenomegaly. Pancreas: No mass or duct dilation. Adrenals:No mass. Kidneys: No mass, or hydronephrosis. GI tract: No dilation or wall thickening. Lymph nodes: No abdominal lymphadenopathy. Mesentery/Peritoneum: No ascites or mass. Retroperitoneum: No mass. Vasculature: - Abdominal aorta: No aneurysm. - Celiac and SMA: Patent without stenosis. - Portal venous system (SMV, splenic vein, portal vein and branches): Patent. - Hepatic veins: Patent. Bones/Soft Tissues: No significant finding. Lower thorax: Unremarkable. Localizer images: No additional findings. IMPRESSION: Small benign hepatic cysts No suspicious mass or adenopathy in the visualized abdomen Cargo Agent: [facility] CENTEROlivia Transcribe Date/Time: Jan 07 2025 12:02P Dictated by : BRIAN STEVENS MD This examination was interpreted and the report reviewed and electronically signed by: BRIAN STEVENS MD on Jan 07 2025 3:27PM EST [id number] Normal [facility] CBC panel Auto (Bld)on 01-05 Erythrocyte distribution width (RBC) [Ratio] 11.6 % 11.5 - 15.0 % [facility] Hematocrit (Bld) [Volume fraction] 44.3 % 36.0 - 46.0 % [facility] Hemoglobin (Bld) [Mass/Vol] 15.2 g/dL 11.5 - 15.5 g/dL [facility] Interpretation and review of laboratory results Normal [facility] MCH (RBC) [Entitic mass] 32.9 pg 26.0 - 34.0 pg [facility] MCHC (RBC) [Mass/Vol] 34.3 g/dL 30.5 - 36.0 g/dL [facility] MCV (RBC) [Entitic vol] 95.9 fL 80.0 - 100.0 fL [facility] Nucleated RBC (Bld) [#/Vol] NINF [facility] Platelet mean volume (Bld) [Entitic vol] 9.2 fL 9.0 - 12.7 fL [facility] Platelets (Bld) [#/Vol] 260 10*3/uL [facility] RBC (Bld) [#/Vol] 4.62 10*6/uL 3.90 - 5.2 0 m/uL [facility] WBC (Bld) [#/Vol] 6.9 10*3/uL [facility] Erythrocyte distribution width (RBC) [Ratio] 11.6 % Normal 11.5-15.0 [facility] Comment on above: Order Comment: Speci men Type: BLOOD SPECIMENOrdering Facility: [facility] Address: [address] [place] [address] Performed By: #### 5 8410-2 ####[facility] [id number] [place] [address] [place] Hematocrit (Bld) [Volume fraction] 44.3 % Normal 36.0-46.0 [facility] Comment on above: Order Comment: Speci men Type: BLOOD SPECIMENOrdering Facility: [facility] Address: [address] [place] [address] Performed By: #### 5 8410-2 ####[facility] [id number] [place] [address] [place] Hemoglobin (Bld) [Mass/Vol] 15.2 g/dL Normal 11.5-15.5 [facility] Comment on above: Order Comment: Speci men Type: BLOOD SPECIMENOrdering Facility: [facility] Address: [address] [place] [address] Performed By: #### 5 8410-2 ####[facility] [id number] [address] [place] MCH (RBC) [Entitic mass] 32.9 pg Normal 26.0-34.0 [facility] Comment on above: Order Comment: Speci men Type: BLOOD SPECIMENOrdering Facility: [facility] Address: [address] [place] [address] Performed By: #### 5 8410-2 ####[facility] [id number] [place] [address] [place] MCHC (RBC) [Mass/Vol] 34.3 g/dL Normal 30.5-36.0 [facility] Comment on above: Order Comment: Speci men Type: BLOOD SPECIMENOrdering Facility: [facility] Address: [address] [place] [address] Performed By: #### 5 8410-2 ####[facility]ITAL[facility]CL[facility] [id number] [place] [address] [place] MCV (RBC) [Entitic vol] 95.9 fL Normal 80.0-100.0 [facility] Comment on above: Order Comment: Speci men Type: BLOOD SPECIMENOrdering Facility: [facility] Address: [address] [place] [address] Performed By: #### 5 8410-2 ####[facility]ITALNCM[facility] [id number] [place] [address] [place] Nucleated RBC (Bld) [#/Vol] 10*3/uL Normal <0.01 [facility] Comment on above: Order Comment: Speci men Type: BLOOD SPECIMENOrdering Facility: [facility] Address: [address] [place] [address] Performed By: #### 5 8410-2 ####[facility]ITALNCM[facility] [id number] [place] [address] [place] Platelet mean volume (Bld) [Entitic vol] 9.2 fL Normal 9.0-12.7 [facility] Comment on above: Order Comment: Speci men Type: BLOOD SPECIMENOrdering Facility: [facility] Address: [address] [place] [address] Performed By: #### 5 8410-2 ####[facility]ITALNCA [id number] [place] [address] [place] Platelets (Bld) [#/Vol] 260 10*3/uL Normal 150-400 [facility] Comment on above: Order Comment: Speci men Type: BLOOD SPECIMENOrdering Facility: [facility] Address: [address] [place] [address] Performed By: #### 5 8410-2 ####[facility] [id number] [place] [address] [place] RBC (Bld) [#/Vol] 4.62 10*6/uL Normal 3.90-5.20 [facility] Comment on above: Order Comment: Speci men Type: BLOOD SPECIMENOrdering Facility: [facility] Address: [address] [place], [place] [address] Performed By: #### 5 8410-2 ####[facility]ITAL[facility]CL[facility] [id number] [place] [address] [place] WBC (Bld) [#/Vol] 6.90 10*3/uL Normal 3.70-11.00 [facility] Comment on above: Order Comment: Speci men Type: BLOOD SPECIMENOrdering Facility: [facility] Address: [address] [place], [place] [address] Performed By: #### 5 8410-2 ####[facility] VALERIANONCLIA [id number] [address] [place] CNPNon 01-05-2025 CNPN Telephone (MEXR) LIZ ROBLES ([id number]) 1955 F Date Time Provider Department 01/05/25 MELIA DEVI During your visit today, we recorded the following information about you: Allergies As of Date: 01/05/2025 Noted Allergy Reaction [id number]-TIU-ITH REDUCTASE INHIBIT*12/13/2024 17 - Myalgia Date Reviewed: 01/04/2025 Reviewed by: Orville Martinez DO - Fully Assessed Prescriptions as of 01/05/2025 - iv contrast (will be provided with radiology test) MRI LT Breast Bx Inject, intravenously, once for 1 dose. No IV access, insert saline lock prior to the beginning of sedation, infusion, injection of imaging exam. Discontinue saline lock post exam. If Pt has a central line or IVAD, may access for administration according to line specific nursing protocol. Once exam is complete flush line and de-access according to line specific nursing protocol in the MR contrast administration guidelines link - lisinopril (ZESTRIL) 5 mg tablet Take 2.5 mg by mouth once daily. - omeprazole (PRILOSEC) 40 mg capsule Take 40 mg by mouth once daily. Problem List As Of Date 01/05/2025 Noted Resolved Malignant neoplasm of upper-inner quadrant of l*01/03/2025 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) [C50.919, Z*01/03/2025 Encounter Status:Closed by MELIA DEVI on [facility]/05/[facility] ([id number]) 1955 F Date Time Provider Department 01/05/25 ELIDA OLSON RADMN During your visit today, we recorded the following information about you: Elida Olson, RN 01/05/2025 9:23 AM Signed Called patient to assist with left breast axilla us AND left breast MRI Bx appt per Dr. Rose. Patient declined the appt at this time. Patient wants to discuss the recommendations with Dr. Hirsch first. Patient will call back if Dr. Hirsch agrees with the recommendations. Dr. Rose is aware. Allergies As of Date: 01/05/2025 Noted Allergy Reaction [id number]-FTD-SOM REDUCTASE INHIBIT*12/13/2024 17 - Myalgia Date Reviewed: 01/04/2025 Reviewed by: Orville Martinez, DO - Fully Assessed Reason for Visit: Appointment [186] Prescriptions as of 01/05/2025 - iv contrast (will be provided with radiology test) MRI LT Breast Bx Inject, intravenously, once for 1 dose. No IV access, insert saline lock prior to the beginning of sedation, infusion, injection of imaging exam. Discontinue saline lock post exam. If Pt has a central line or IVAD, may access for administration according to line specific nursing protocol. Once exam is complete flush line and de-access according to line specific nursing protocol in the MR contrast administration guidelines link - lisinopril (ZESTRIL) 5 mg tablet Take 2.5 mg by mouth once daily. - omeprazole (PRILOSEC) 40 mg capsule Take 40 mg by mouth once daily. Problem List As Of Date 01/05/2025 Noted Resolved Malignant neoplasm of upper-inner quadrant of l*01/03/2025 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) [C50.919, Z*01/03/2025 Encounter Status:Closed by ELIDA OLSON on 01/05/25 [facility] LIZ ROBLES ([id number]) 1955 F Date Time Provider Department 01/05/25 JENNIFER BURK During your visit today, we recorded the following information about you: Jennifer Burk RN 01/05/2025 8:35 AM Signed Patient is schedule for port placement on Friday, the same day as her chemo education. Please move her out to Friday or next week if either of those days work for her. Thank you. EVERT East Naomi 01/05/2025 9:21 AM Signed This appt has been rescheduled as directed. 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 No IV access, insert saline lock prior to the beginning of sedation, infusion, injection of imaging exam. Discontinue saline lock post exam. If Pt has a central line or IVAD, may access for administration according to line specific nursing protocol. Once exam is complete flush line and de-access according to line specific nursing protocol in the MR contrast administration guidelines link - lisinopril (ZESTRIL) 5 mg tablet Take 2.5 mg by mouth once daily. - omeprazole (PRILOSEC) 40 mg capsule Take 40 mg by mouth once daily. Problem List As Of Date 01/05/2025 Noted Resolved Malignant neoplasm of upper-inner quadrant of l*01/03/2025 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) [C50.919, Z*01/03/2025 Encounter Status:Closed by MARKIE CAZARES on 01/05/25 [facility] CNPN Telephone (HEMAWS) LIZ ROBLES ([id number]) 1955 F Date Time Provider Department 01/05/25 ORVILLE MARTINEZ During your visit today, we recorded the following information about you: Thais Cochran 01/05/2025 8:58 AM Signed Patient called stating that she received a call regarding results from MRI yesterday. She was informed there was another spot on left breast and another biopsy would be needed along with armpit. She states she needs some more guidance with having a mastectomy or lumpectomy. Patient requested to speak with clinical. Winsome Gonzales LPN 01/05/2025 12:17 PM Signed I spoke with the patient. She is seeing Dr. Colby tomorrow and will discuss the need for another biopsy vs having a mastectomy or a lumpectomy. Winsome Gonzales LPN Allergies As of Date: 01/05/2025 Noted Allergy Reaction [id number] REDUCTASE INHIBIT*12/13/2024 17 - Myalgia Date Reviewed: 01/04/2025 Reviewed by: Orville Martinez DO - Fully Assessed Reason for Visit: Patient Update [1234] Prescriptions as of 01/05/2025 - iv contrast (will be provided with radiology test) MRI LT Breast Bx Inject, intravenously, once for 1 dose. No IV access, insert saline lock prior to the beginning of sedation, infusion, injection of imaging exam. Discontinue saline lock post exam. If Pt has a central line or IVAD, may access for administration according to line specific nursing protocol. Once exam is complete flush line and de-access according to line specific nursing protocol in the MR contrast administration guidelines link - lisinopril (ZESTRIL) 5 mg tablet Take 2.5 mg by mouth once daily. - omeprazole (PRILOSEC) 40 mg capsule Take 40 mg by mouth once daily. Problem List As Of Date 01/05/2025 Noted Resolved Malignant neoplasm of upper-inner quadrant of l*01/03/2025 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) [C50.919, Z*01/03/2025 Encounter Status:Closed by WINSOME GONZALES on 01/05/25 Normal [facility] PT panel Coag (PPP)Ordered B y: Meeta Lau on 01-05-2025 INR Coag (PPP) [Relative time] 1 {INR} 0.9 - 1.3 [facility] Comment on above: Vitamin K Antagonist (VKA) Therapeutic Range: INR 2 to 3 (Target INR of 2.5) Note: For patients treated with VKA drugs, such as warfarin, the [employer] [employer] 2012 Guideline recommends a therapeutic INR range of 2 to 3 (target INR of 2.5). This recommendation includes high-risk patients with antiphospholipid syndrome with previous arterial or venous thromboembolism, current-generation mechanical or bioprosthetic aortic heart valve replacement. Note: Patients with mechanical aortic valve replacement and additional risk factors for thromboembolic events (atrial fibrillation, previous thromboembolism, LV dysfunction, hypercoagulable conditions) or an older generation mechanical AVR (i.e., ball in-Cage) or any mechanical MVR should have a INR therapeutic range of 2.5 to 3.5 (target INR of 3). Deng GH, et al. Chest 2012, 141:7S-47S Aileen RA, et al. [facility] 2017, 70: 252-289 Interpretation and review of laboratory results Normal [facility] PT Coag (PPP) [Time] 10.4 s CARINE [facility] PT panel Coag (PPP)on 2024 INR Coag (PPP) [Relative time] 1.0 {INR} Normal 0.9-1.3 [facility] Comment on above: Order Comment: Specserina silva Type: BLOOD SPECIMENOrdering Facility: [facility] Address: [address] [place], [place] [address] Result Comment: Genna min K Antagonist (VKA) Therapeutic Range: INR 2 to 3 (Target INR of 2.5) Note: For patients treated with VKA drugs, such as warfarin, the [employer] 2012 Guideline recommends a therapeutic INR range of 2 to 3 (target INR of 2.5). This recommendation includes high-risk patients with antiphospholipid syndrome with previous arterial or venous thromboembolism, current-generation mechanical or bioprosthetic aortic heart valve replacement. Note: Patients with mechanical aortic valve replacement and additional risk factors for thromboembolic events (atrial fibrillation, previous thromboembolism, LV dysfunction, hypercoagulable conditions) or an older generation mechanical AVR (i.e., ball in-Cage) or any mechanical MVR should have a INR therapeutic range of 2.5 to 3.5 (target INR of 3). Deng GH, et al. Chest 2012, 141:7S-47S Aileen RA et al. [facility] 2017, 70: 252-289 Performed By: #### 3 4528-0 ####[facility] PORT CHARLOTTEADRIANNE [id number] [address] PT Coag (PPP) [Time] 10.4 s Normal <13.1 [facility] Comment on above: Order Comment: Cam silva Type: BLOOD SPECIMENOrdering Facility: [facility] Address: [address] [place] [address] Performed By: #### 3 4528-0 ####[facility]ITALNCSUZY [id number] [address] OF [facility] CNOVSPon 01-04-2025 CNOVSP Visit (SP) Office (HEMAWS) WILBERTOLIZ L ([id number]) 1955 F Date Time Provider Department 01/04/25 2:00 PM ORVILLE MARTINEZ During your visit today, we recorded the following information about you: Temperature Pulse Blood pressure Weight 97.8 degrees 87/minute 141/71 76.2 kg Height 1.658 m Orville Martinez DO 01/06/2025 4:53 PM Addendum Patient referred by Dr. Hirsch for breast cancer. HPI: The patient is a 69-year-old female with past medical history as outlined below. She appreciated a lump in the left breast about 2 months ago. She underwent bilateral mammogram on 11/26/2024. There was a 3 cm irregular focal asymmetry observed in the left breast at 9 o'clock position middle depth. Ultrasound demonstrated a 2.6 cm irregular hypoechoic mass within the left breast at the 10 o'clock position 4 to 5 cm from the nipple. Lymph nodes in the left axilla. Normal by ultrasound. Ultrasound-guided core needle biopsy with clip placement on 12/01/2024. Pathology: Invasive carcinoma with apocrine features at least [place] grade 2. ER/MS both negative. HER2 2+. Nonamplified on FISH testing. CT of the chest, abdomen pelvis on 12/14/2024 showed a near 2 and half centimeter left breast mass and a few less than 6 mm pulmonary nodules. There was an indeterminate 1.3 cm segment liver lesion. MRI was recommended for further characterization. Had MRI breasts today. Scheduled for MRI liver on 01/06. PAST MEDICAL HISTORY Diagnosis Date Essential hypertension PAST SURGICAL HISTORY Procedure Laterality Date [id number] . hx of eye surgery lisinopril (ZESTRIL) 5 mg tablet Take 2.5 mg by mouth once daily. omeprazole (PRILOSEC) 40 mg capsule Take 40 mg by mouth once daily. ALLERGIES Allergen Reactions Qsdubpy-Dyg-Dff Red* Myalgia Social History Tobacco Use Smoking status: Never Smokeless tobacco: Never Vaping Use Vaping status: Never Used Substance Use Topics Alcohol use: Not Currently Drug use: Not Currently FAMILY HISTORY Problem Relation Age of Onset Liver Disease Mother No Known Problems Father Breast Cancer Maternal Aunt Maternal aunt breast cancer in her early 60s. Live to be about 85. Mother's side--Two brothers lung cancer and sister cervix cancer. REVIEW OF SYSTEMS: Constitutional: No episodes of fever and drenching night sweats. Not significantly fatigued. Normal appetite. Neuro: No COLE, vertigo, dizziness and imbalance. No symptoms of neuropathy. HEENT: No recent change in voice, vision or hearing. Resp: No cough, wheeze and hemoptysis. No shortness of breath at rest. No THORPE. CVS: No exertional chest pain, PND, orthopnea and LE edema. GI: No dysphagia and odynophagia. No reflux, n/v, change in bowel habits or abdominal pain. : No dysuria or gross hematuria. No symptoms of bladder outlet obstruction. Endo: Occasional hot flashes. No polyuria and polydipsia. No heat and cold intolerance. Musculoskeletal: No bone, back, joint and muscular pain. Derm: No current rash. No history of jaundice or diffuse pruritis. Heme: No unusual bleeding and unexplained bruising. Psych: Normal mood. Participation of a fellow, resident, medical student, or advanced practice provider student in performing the sensitive examination was discussed with the patient or authorized patient relations representative. The patient or authorized patient relations representative has agreed to proceed with the sensitive examination. Fiordaliza Gonzales LPN chaperoned. PHYSICAL EXAM: Vitals: Blood pressure 141/71, pulse 87, temperature 36.6 ?C (97.8 ?F), temperature source Temporal, height 165.8 cm (5' 5.26), weight 76.2 kg (168 lb), SpO2 97%. Well-appearing and in no acute distress. EYES: Sclerae are anicteric bilaterally. LYMPHATIC: There is no palpable cervical or supraclavicular adenopathy. CARDIOVASCULAR: Rhythm is regular. BREAST: At approximately the 11 o'clock position of the left breast there is a superficial mobile 2 x 2 cm firm mass. No left axillary adenopathy. ABDOMEN: The abdomen is nondistended. Extremities: No swelling or edema. SKIN: No jaundice. 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 - I reviewed the pathology with the patient and her . Although she has not yet had MRI of the liver, I recommended neoadjuvant chemoimmunotherapy with the KEYNOTE 522 regimen. Discussed that the goals of care are an increase in overall survival. - I discussed the rational (more content not included)... Normal [facility] CNPNon 01-04-2025 CNPN Telephone (AMY) LIZ ROBLES ([id number]) 1955 F Date Time Provider Department 01/04/25 LILLY MEIER During your visit today, we recorded the following information about you: Lilly Meier RN 01/04/2025 3:37 PM Signed Met with patient and introduced myself. Patient was given a My Journey binder with chemocare information, office contact information, thermometer, and additional chemotherapy resource booklets. Patient aware a nurse will review on scheduled appointment date. Elise Meier RN Allergies As of Date: 01/04/2025 Noted Allergy Reaction [id number]-UOW REDUCTASE INHIBIT*12/13/2024 17 - Myalgia Date Reviewed: 01/04/2025 Reviewed by: Sivakumar Patel MA - Fully Assessed Reason for Visit: Care Coordination [0304] Cmt: Introduction Prescriptions as of 01/04/2025 - lisinopril (ZESTRIL) 5 mg tablet Take 2.5 mg by mouth once daily. - omeprazole (PRILOSEC) 40 mg capsule Take 40 mg by mouth once daily. Problem List As Of Date 01/04/2025 Noted Resolved Malignant neoplasm of upper-inner quadrant of l*01/03/2025 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) [C50.919, Z*01/03/2025 Encounter Status:Closed by LILLY MEIER on 01/04/25 Normal [facility] Telephone (HEMAWS) LIZ ROBLES ([id number]) 1955 F Date Time Provider Department 01/04/25 ORVILLE MARTINEZ During your visit today, we recorded the following information about you: Orville Martinez DO 01/04/2025 5:10 PM Signed When I was completing my note I reviewed her CT scan results again and noticed the radiologist commented there were some thickening of the endometrial lining. Most likely a benign finding but I would like to get an ultrasound to be sure the endometrium looks normal. Order filed. DO Bo Hill Melanie, LPN 01/05/2025 12:07 PM Signed Patient is aware of all information. PSS- please contact patient to schedule th US. MARISSA Rodriguez Melanie, LPN 01/05/2025 12:16 PM Signed Patient has a lab appointment today and will stop in this office to schedule the vaginal US. Winsome Gonzales LPN Allergies As of Date: 01/04/2025 Noted Allergy Reaction [id number]-[id number]-MFZ REDUCTASE INHIBIT*12/13/2024 17 - Myalgia Date Reviewed: 01/04/2025 Reviewed by: Orville Martinez DO - Fully Assessed Reason for Visit: Follow Up [171] Primary Visit Diagnosis:Endometrial thickening on ultrasound [R93.89] Other Visit Diagnosis:Increased endometrial stripe thickness [R93.89] Order(s):US FEMALE PELVIS TRANSVAG [[id number]] Order #: [id number] FUTURE Prescriptions as of 01/05/2025 - iv contrast (will be provided with radiology test) MRI LT Breast Bx Inject, intravenously, once for 1 dose. No IV access, insert saline lock prior to the beginning of sedation, infusion, injection of imaging exam. Discontinue saline lock post exam. If Pt has a central line or IVAD, may access for administration according to line specific nursing protocol. Once exam is complete flush line and de-access according to line specific nursing protocol in the MR contrast administration guidelines link - lisinopril (ZESTRIL) 5 mg tablet Take 2.5 mg by mouth once daily. - omeprazole (PRILOSEC) 40 mg capsule Take 40 mg by mouth once daily. Problem List As Of Date 01/04/2025 Noted Resolved Malignant neoplasm of upper-inner quadrant of l*01/03/2025 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) [C50.919, Z*01/03/2025 Encounter Status:Closed by ORVILLE MARTINEZ on 01/04/25 Normal [facility] HBV core Ab Ser Qlon 025 HBV core Ab Ql (S) Negative Normal Negative [facility] Comment on above: Order Comment: Speci ricardo Type: BLOOD SPECIMENOrdering Facility: [facility] Address: [address] [place] [address] Result Comment: No e vidence of current or past infection with Hepatitis B virus. Should recent infection be suspected, repeat testing may be considered 3-4 weeks after this draw. Performed By: #### 5 195-3, 29747-0, 72847-9 ####[facility] LABCLIA [id number] [place] [address] [place] HBV surface Ab Ql (S)on 12-10 HBV surface Ab Qn (S) <8.00 Normal [facility] Comment on above: Order Comment: Speci men Type: BLOOD SPECIMENOrdering Facility: [facility] Address: [address] [place] [address] Result Comment: <8 m IU/mL: No serological evidence of immunity to Hepatitis B Virus. >/= 8 to <12 mIU/mL: No serological evidence of immunity to Hepatitis B Virus. >/= 12 mIU/mL: Consistent with serological evidence of immunity to Hepatitis B Virus. Performed By: #### 5 195-3, 69911-2, 38168-9 ####[facility] LABCLIA [id number] [place] [address] [place] HBV surface Ab Ser Qlon 12-10 HBV surface Ab Ql (S) Negative Normal [facility] Comment on above: Order Comment: Speci men Type: BLOOD SPECIMENOrdering Facility: [facility] Address: [address] [place] [address] Result Comment: No s erological evidence of immunity to Hepatitis B Virus. Performed By: #### 5 195-3, 19635-5, 79749-2 ####[facility] LABCLIA [id number] [address] OF [place] HBV surface Ag Ser Qlon 12-10 HBV surface Ag Ql (S) Negative Normal Negative [facility] Comment on above: Order Comment: Speci men Type: BLOOD SPECIMENOrdering Facility: [facility] Address: [address] [place] [address] Performed By: #### 5 195-3, 33446-8, 97006-2 ####[facility] LABCLIA [id number] [address] OF [facility] HCV Ab Ser Qlon 01-04-2025 HCV Ab Ql (S) Negative Normal Negative [facility] Comment on above: Order Comment: Speci men Type: BLOOD SPECIMENOrdering Facility: [facility] Address: [address] [place] [address] Result Comment: The result suggests no evidence of infection with Hepatitis C virus. Should recent infection be suspected, repeat testing may be considered 4-6 weeks after this draw. Performed By: #### 1 6128-1 ####[facility] LABCLIA [id number] [place] [id number] [place] MRI BREAST 3D POST PROCESSIN Harley 01-04-2025 MRI BREAST 3D POST PROCESSING * * *Final Report* * * DATE OF EXAM: Jan 04 2025 10:24AM [facility] 0788 - MRI BREAST 3D POST PROCESSING / PROCEDURE REASON: multiple diagnoses * * * * Physician Interpretation * * * * [facility] [address] [place] [address] #[id number] - MRI BREAST WO/W IVCON [place] #[id number] - MRI BREAST 3D POST PROCESSING HISTORY: 69-year-old woman recently diagnosed with left breast cancer presents for evaluation with breast MRI. COMPARISON STUDIES: The present examination has been compared to prior imaging studies dated 11/06/2022 (mammogram), 11/26/2024 (mammogram) and 12/01/2024 (mammogram). BREAST MRI: TECHNIQUE: The patient was studied using the dedicated breast coil in the Siemens 1.5 Fabiana scanner. Initial axial T1W NFS, STIR imaging was carried out followed by axial T1-weighted GRE imaging both before and after IV administration of 7.5 ml of Elucirem. Subsequently, subtraction imaging and 3-D reconstruction were completed on an independent workstation. An additional [id number] resolution sequence was performed after the first two 1 minute post-contrast sequences. Complex volumetric analysis requiring post processing was performed using a semi-automated software Dynacad, on an independent workstation by the physician, with images created, reviewed, and archived. FINDINGS: There is heterogeneous fibroglandular tissue. There is minimal background parenchymal enhancement. The background parenchymal enhancement is symmetrical. Right: No suspicious enhancement. No gross right axillary adenopathy. Left: Avidly enhancing irregular 2.6 x 2.5 x 2.7 cm mass in the upper inner quadrant middle depth with the associated artifact related to biopsy marking clip noted along the superior aspect of the biopsy-proven malignant mass. Asymmetric, suspicious discontiguous 1.2 x 1.4 x 2.8 cm (TR, CC, AP) non mass enhancement in the 8-9:00 position, slightly inferior to the known malignant mass (9:90-104, 100:222-231). In total, the known malignant mass and slightly inferior discontiguous non mass enhancement within the upper inner and lower inner breast span approximately 2.6 x 4 x 4 cm (TR, CC, AP). No gross left axillary adenopathy, however, there is a left axillary lymph node with an otherwise very thin cortex (less than 1 mm) with apparent focal eccentric cortical thickness measuring up to 3-4 mm (1:158). No gross internal mammary adenopathy bilaterally. However, there are asymmetric, small lymph nodes noted along the left internal mammary vasculature including a 0.4 x 0.4 x 0.2 cm node (4:89, 100:192) noted medial to the vessels and a 0.2 x 0.4 x 0.5 cm lymph node immediately deep to the internal mammary vessels (4:98, 100:200). IMPRESSION: 2.7 cm known malignant mass in the upper inner left breast with asymmetric, suspicious discontiguous .2 x 1.4 x 2.8 cm non mass enhancement, slightly inferior in the 8-9:00 position; in total spanning approximately 2.6 x 4 x 4 cm. If mastectomy is not planned, MRI guided core needle biopsy of the suspicious discontiguous non mass enhancement in the 8-9:00 position of the left breast is recommended. No gross left axillary adenopathy, however, there is a suspicious left axillary lymph node with an otherwise very thin cortex (less than 1 mm) with focal eccentric cortical thickness of 3-4 mm for which further evaluation is recommended with ultrasound. No gross internal mammary adenopathy bilaterally. However, there are indeterminant asymmetric, small lymph nodes noted along the left internal mammary vasculature as detailed above in this patient with recent biopsy-proven malignancy in the upper inner quadrant of the left breast. Nurse navigator has been asked to contact the patient. BI-RADS Category 4: Suspicious Interpreting Radiologist: Kelsey Rose M.D. Electronically signed on: 01/05/2025 Cargo Agent: ZEHRA Transcribe Date/Time: Jan 04 2025 10:08A Dictated by : KELSEY ROSE MD This examination was interpreted and the report reviewed and electronically signed by: KELSEY ROSE MD on Jan 05 2025 7:30AM EST [id number] [facility] MRI BREAST WO/W IVCON [facility] 01-04-2025 MRI BREAST WO/W IVCON JACINTO * * *Final Report* * * DATE OF EXAM: Jan 04 2025 10:23AM [facility] 0773 - MRI BREAST WO/W IVCON JACNITO / PROCEDURE REASON: multiple diagnoses * * * * Physician Interpretation * * * * [place] [id number] #[id number] - MRI BREAST WO/W IVCON JACINTO #[id number] - MRI BREAST 3D POST PROCESSING HISTORY: 69-year-old woman recently diagnosed with left breast cancer presents for evaluation with breast MRI. COMPARISON STUDIES: The present examination has been compared to prior imaging studies dated 11/06/2022 (mammogram), 11/26/2024 (mammogram) and 12/01/2024 (mammogram). BREAST MRI: TECHNIQUE: The patient was studied using the dedicated breast coil in the Siemens 1.5 Fabiana scanner. Initial axial T1W NFS, STIR imaging was carried out followed by axial T1-weighted GRE imaging both before and after IV administration of 7.5 ml of Elucirem. Subsequently, subtraction imaging and 3-D reconstruction were completed on an independent workstation. An additional 0-[id number] resolution sequence was performed after the first two 1 minute post-contrast sequences. Complex volumetric analysis requiring post processing was performed using a semi-automated software Dynacad, on an independent workstation by the physician, with images created, reviewed, and archived. FINDINGS: There is heterogeneous fibroglandular tissue. There is minimal background parenchymal enhancement. The background parenchymal enhancement is symmetrical. Right: No suspicious enhancement. No gross right axillary adenopathy. Left: Avidly enhancing irregular 2.6 x 2.5 x 2.7 cm mass in the upper inner quadrant middle depth with the associated artifact related to biopsy marking clip noted along the superior aspect of the biopsy-proven malignant mass. Asymmetric, suspicious discontiguous 1.2 x 1.4 x 2.8 cm (TR, CC, AP) non mass enhancement in the 8-9:00 position, slightly inferior to the known malignant mass (9:90-104, 100:222-231). In total, the known malignant mass and slightly inferior discontiguous non mass enhancement within the upper inner and lower inner breast span approximately 2.6 x 4 x 4 cm (TR, CC, AP). No gross left axillary adenopathy, however, there is a left axillary lymph node with an otherwise very thin cortex (less than 1 mm) with apparent focal eccentric cortical thickness measuring up to 3-4 mm (1:158). No gross internal mammary adenopathy bilaterally. However, there are asymmetric, small lymph nodes noted along the left internal mammary vasculature including a 0.4 x 0.4 x 0.2 cm node (4:89, 100:192) noted medial to the vessels and a 0.2 x 0.4 x 0.5 cm lymph node immediately deep to the internal mammary vessels (4:98, 100:200). IMPRESSION: 2.7 cm known malignant mass in the upper inner left breast with asymmetric, suspicious discontiguous .2 x 1.4 x 2.8 cm non mass enhancement, slightly inferior in the 8-9:00 position; in total spanning approximately 2.6 x 4 x 4 cm. If mastectomy is not planned, MRI guided core needle biopsy of the suspicious discontiguous non mass enhancement in the 8-9:00 position of the left breast is recommended. No gross left axillary adenopathy, however, there is a suspicious left axillary lymph node with an otherwise very thin cortex (less than 1 mm) with focal eccentric cortical thickness of 3-4 mm for which further evaluation is recommended with ultrasound. No gross internal mammary adenopathy bilaterally. However, there are indeterminant asymmetric, small lymph nodes noted along the left internal mammary vasculature as detailed above in this patient with recent biopsy-proven malignancy in the upper inner quadrant of the left breast. Nurse navigator has been asked to contact the patient. BI-RADS Category 4: Suspicious Interpreting Radiologist: Kelsey Rose M.D. Electronically signed on: 01/05/2025 Cargo Agent: ZEHRA Transcribe Date/Time: Jan 04 2025 10:08A Dictated by : KELSEY ROSE MD This examination was interpreted and the report reviewed and electronically signed by: KELSEY ROSE MD on Jan 05 2025 7:30AM EST [id number] [facility] 12-27-2024 [facility] Telephone ([facility]) WILBERTOLIZ De La Paz ([id number]) 1955 F Date Time Provider Department 12/27/24 [facility] PLASCENCIA [facility] During your visit today, we recorded the following information about you: Yesi Plascencia LPN 12/27/2024 12:30 PM Signed Called and spoke to patient regarding her upcoming appointment on 01/06 with . Asked pt where she received her imaging and biopsy at. She stated biopsy was done in office at [place]. Her imaging was done at [facility]. I informed her I will be requesting her imaging for review. She verbalized understanding. Imaging received and what (MMG/US/MRI - radiology reviewed yet? Requesting from [facility] Pathology slides sent / reviewed? In [facility] Consults: Breast psych not this time Med onc yes Rad onc yes Plastics no pt declined. MRI not as of yet order is in system. Pt thanked me for calling her. 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 - omeprazole (PRILOSEC) 40 mg capsule Take 40 mg by mouth once daily. Problem List As Of Date: 12/27/2024 (None) Encounter Status:Closed by YESI PLASCENCIA on 12/27/24 [facility] 12-21-2024 [facility] Telephone (LessThan3S) LIZ ROBLES ([id number]) 1955 F Date Time Provider Department 12/21/24 LIDIA HIRSCH During your visit today, we recorded the following information about you: Ovidio Garcias 12/21/2024 9:10 AM Signed sent my chart message to patient , was instructed to have patient call central scheduling to schedule MRI of Breast and Liver Markie Dukes 01/04/2025 3:55 PM Addendum AVS 01/04 IR port placement at [place] or - patient prefers the date of 01/14/2025.SCHEDULED 01/10 01/14 NOT AVAILABLE Labs today.DONE Begin weekly Carbo/Taxol the week of 01/17/2025. May be straight back for cycle 1. Will need CBC/CMP/MAG/TSH/T4/Julio isol for D1. Every 6 weeks- TSH/T4/Cortisol. Keytruda every 3 weeks. Cycle 2- OV/CBC/CMP/MAG. All orders are in [place]. CHEMO ED IS SCHEDULED Thais Lopez 01/07/2025 8:25 AM Signed 3 cycles entered Start email sent Allergies As of Date: 12/21/2024 Noted Allergy Reaction [id number]-[id number] REDUCTASE INHIBIT*12/13/2024 17 - Myalgia Date Reviewed: 12/14/2024 Reviewed by: Sylvie Gonzalez, EVERT - Fully Assessed Reason for Visit: MRI Scheduling [Other] Appointment [186] Prescriptions as of 01/07/2025 - lisinopril (ZESTRIL) 5 mg tablet Take 2.5 mg by mouth once daily. - omeprazole (PRILOSEC) 40 mg capsule Take 40 mg by mouth once daily. Problem List As Of Date: 12/21/2024 (None) Encounter Status:Closed by THAIS COCHRAN on 01/07/25 Normal [facility] CT ABD/PEL W IVCONon 025 CT ABD/PEL W IVCON * * *Final Report* * * DATE OF EXAM: Dec 14 2024 1:35PM [facility] 0530 - CT ABD/PEL W IVCON / PROCEDURE REASON: multiple diagnoses * * * * Physician Interpretation * * * * EXAMINATION: CT ABDOMEN AND PELVIS WITH IV CONTRAST CLINICAL HISTORY: Left breast cancer. TECHNIQUE: CT of the abdomen and pelvis was performed using standard technique, scanning from just above the dome of the diaphragm to the symphysis pubis. MQ: CTAP_3 Contrast: IV: 100 ml of Omnipaque 350 CT Radiation dose: Integrated Dose-length product (DLP) for this visit = 845 mGy*cm. CT Dose Reduction Employed: Automated exposure control (AEC) COMPARISON: None available. RESULT: Liver: Hepatic steatosis. Indeterminate, 1.3 cm above fluid attenuation segment lesion (3:55). Additional subcentimeter hypoattenuating segment V/ lesion (3:58, 4:48). Biliary: No bile duct dilation. Gallbladder is unremarkable. Spleen: No mass. No splenomegaly. Pancreas: No mass or duct dilation. Adrenals: No mass. Kidneys: No mass, calculus or hydronephrosis. GI tract: No dilation or wall thickening. Normal appendix. Lymph nodes: No abdominal or pelvic lymphadenopathy. Mesentery/Peritoneum: No ascites or mass. Retroperitoneum: No mass. Vasculature: - Abdominal aorta and iliac arteries: Atherosclerotic calcifications without aneurysm. - Celiac and SMA: Atherosclerotic calcifications at the origins. - Portal venous system (SMV, splenic vein, portal vein and branches): Patent. - Hepatic veins: Patent. Pelvis: No mass, ascites or fluid collection. Nonspecific thickening of the endometrial canal measuring up to 1.0 cm (5:52). Bones/Soft Tissues: Degenerative changes. No suspicious osseous lesions. Lower thorax: A chest CT performed will be reported separately. Localizer images: No additional findings. IMPRESSION: Indeterminate, 1.3 cm segment liver lesion. Consider further characterization with contrast-enhanced MRI. No lymphadenopathy in the abdomen or pelvis. Hepatic steatosis. ACTIONABLE RESULT: FOLLOW-UP Acuity: Actionable Findings: Liver Routing Code: LV_1 Recommendation: MRI LIVER WO/W IVCON (add Dotarem in comments) Time Frame: At the discretion of the clinical team. COMMUNICATION: Results will be communicated with the ordering provider via [employer]sisters staff message or phone message by [facility] within 2 business days of report finalization. --END OF FINDING-- Cargo Agent: MELANIE Transcribe Date/Time: Dec 18 2024 3:38P Dictated by : JESSE FRITZ MD This examination was interpreted and the report reviewed and electronically signed by: JESSE FRITZ MD on Dec 18 2024 3:53PM EST [id number] ACTIONABLE Invalid Interpretation Code [facility] CT CHEST WO IVCONon 12-15-19 CT CHEST WO IVCON * * *Final Report* * * DATE OF EXAM: Dec 14 2024 1:40PM [facility] 0541 - CT CHEST WO IVCON / PROCEDURE REASON: multiple diagnoses * * * * Physician Interpretation * * * * EXAMINATION: CHEST CT WITHOUT CONTRAST CLINICAL HISTORY: Left breast cancer Technique: Spiral CT acquisition of the chest from the thoracic inlet to the upper abdomen without contrast. MQ: CTCWO_6 CT Radiation dose: Integrated Dose-length product (DLP) for this visit = 845 mGy*cm CT Dose Reduction Employed: Automated exposure control (AEC) Comparison: None RESULT: Limitations: None. Lines, tubes, and devices: None. Lung parenchyma and airways: No consolidation. 2 mm left lower lobe subpleural pulmonary nodule (4, 122). 3 mm left upper lobe subpleural nodule (4, 71). 3 mm lingular subpleural nodule (4, 114). Mild scattered curvilinear atelectasis. The central airways are patent. Pleural space: No pleural effusion. No pleural thickening. Lower neck, lymph nodes, and mediastinum: The imaged thyroid gland is normal. No lymphadenopathy in the supraclavicular, axillary, mediastinal, or hilar regions. Heart, pericardium, and thoracic vessels: There are scattered atherosclerotic calcifications of the visualized great vessels and thoracic aorta. The thoracic aorta and main pulmonary artery are normal in caliber. The cardiac chambers are normal in size. Mild coronary artery atherosclerotic calcifications are noted, although the study is not optimized for coronary assessment. No pericardial effusion or thickening. Bones and soft tissues: There is an approximately 1.4 x 2.4 x 2.1 cm solid mass in the medial aspect of the left breast with a biopsy clip along its anterior superior margin. No CT evidence of destructive osseous lesion. Mild degenerative changes. Upper abdomen: See separate dictation of concurrently performed CT abdomen which is reported under a separate cover. Localizer images: No additional findings. IMPRESSION: 1. Nearly 2.5 cm left breast mass compatible with provided history of known left breast malignancy. 2. Few less than 6 mm pulmonary nodules. Given history of malignancy, close attention on follow-up CT chest in 3 months is advised. ACTIONABLE RESULT: FOLLOW-UP Acuity: Actionable Findings: Thoracic-Other Routing Code: CT_1 Recommendation: CT Chest WO IVCON Time Frame: Additional evaluation as described in the impression COMMUNICATION: Results will be communicated with the ordering provider via [employer] staff message or phone message by [facility] within 2 business days of report finalization. --END OF FINDING-- Cargo Agent: PSCB Transcribe Date/Time: Dec 20 2024 12:37P Dictated by : RAMESH PENNINGTON MD This examination was interpreted and the report reviewed and electronically signed by: RAMESH PENNINGTON MD on Dec 20 2024 12:44PM EST [id number] ACTIONABLE Invalid Interpretation Code [facility] CNOVon 12-13-2024 CNOV Office Visit (RADTWS ) DOUGLIZ ORR ([id number]) 1955 F Date Time Provider Department 12/13/24 9:30 AM SARA AVALOS RADTWS During your visit today, we recorded the following information about you: Temperature Pulse Respiration Blood pressure 97.2 degrees 86/minute 14/minute 140/83 Weight 76.2 kg Sara Avalos MD 12/16/2024 11:15 AM Signed Radiation Oncology - New Patient/Consult Note PATIENT NAME: Liz Robles PATIENT REQUESTING PROVIDER: Babita Morataya DIAGNOSIS: Newly diagnosed clinical stage IIB, cT2 cN0 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 HPI: 69 year old female who presents with above diagnosis, for an opinion regarding the role of radiation therapy in the management of the patient's disease. Final recommendations will be communicated back to the requesting physician by way of the shared medical record, or letter to requesting physician via US mail. 69 year old woman who felt a lump in the left breast last month. Bilateral mammogram on 11/26/24 showed a 3 cm irregular focal asymmetry within the left breast at 9:00 middle depth. US of the left breast showed a 2.6 cm irregular hypoechoic mass within the left breast at 10:00, 4-5 cm from the nipple. Normal appearing lymph node is seen within the left axilla. Core biopsy of the left breast lesion on 12/01/24 showed at least grade 2 invasive carcinoma with apocrine features. It's ER negative (<1%), MS negative (<1%) and Her2 2+, FISH negative. CT scan of the C/A/P is scheduled tomorrow. ALLERGIES Allergen Reactions Keyfzdu-Anb-Ebt Red* Myalgia Current Outpatient Medications on File Prior to Visit Medication Sig lisinopril (ZESTRIL) 5 mg tablet Take 2.5 mg by mouth once daily. omeprazole (PRILOSEC) 40 mg capsule Take 40 mg by mouth once daily. No current facility-administered medications on file prior to visit. PAST MEDICAL HISTORY Diagnosis Date Essential hypertension Prior radiation therapy, collagen vascular disease, or inflammatory bowel disease: No Any implanted or external electric devices? No status: Post-menopausal. PAST SURGICAL HISTORY Procedure Laterality Date [id number] . hx of eye surgery FAMILY HISTORY Problem Relation Age of Onset Liver Disease Mother No Known Problems Father Breast Cancer Maternal Aunt Social History Tobacco Use Smoking status: Never Smokeless tobacco: Never Vaping Use Vaping status: Never Used Substance Use Topics Alcohol use: Not Currently Drug use: Not Currently COMPLETE REVIEW OF SYSTEMS: GENERAL: feeling well without fatigue, no recent change in weight HEENT: denies COLE, change in hearing or vision, no other ENT complaints NECK: denies swelling or pain in neck RESPIRATORY: mild dry cough attributed to allergies. CARDIOVASCULAR: no chest pain, no palpitations GI: normal appetite, tolerating PO well, BMs normal, and no abdominal pain : urination is normal MUSCULOSKELETAL: denies any painful or swollen joints, no muscle aches SKIN: no rash HEMATOLOGY/LYMPHOLOGY: negative for prolonged bleeding, no swollen lymph nodes NEURO: no numbness or paresthesias and no weakness of the extremities PHYSICAL EXAM: VS: BP 140/83 Pulse 86 Temp 36.2 ?C (97.2 ?F) (Temporal) Resp 14 Wt 76.2 kg (168 lb) LMP (LMP Unknown) SpO2 97% BMI 27.96 kg/m? KPS: 100 General Appearance: Alert and oriented. No acute distress. HEENT: NCAT. Sclera anicteric. EOMI. Neck: Normal ROM. Chest: No respiratory distress. Breasts: About 3 cm medial left breast mass. Abdomen: Soft. Nontender. Nondistended. Musculoskeletal: No edema. Normal ROM in extremities. Neuro: Speech fluent. Gait normal. No focal deficits. Skin: No rashes noted Lymphatics: No palpable cervical or supraclavicular or axillary adenopathy. Hematologic: No signs of active bleeding. 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 I discussed the role of radiation treatment after breast conserving surgery and also discussed about postmastectomy radiation treatment. She has staging CT C/A/P scheduled tomorrow. She has an international trip planned and is scheduled to see Dr. Martinez and Dr. Colby after she returns. She is considering mastectomy. I will see her again after her surgery to discuss indications of radiation treatment. Signed by: Sara Avalos MD cc: Babita Mendo[place] [address] Elke Krueger RN 12/16/2024 11:15 AM Signed Radiation Therapy - Nursing Note (Consult) PATIENT NAME: Liz Robles PATIENT December 13, 2024 [facility] FACILITY/LOCATION: [place] (more content not included)... Normal [facility] Rona 12-13-2024 [facility] Telephone ([place]) WILBERTOLIZ Ana Cristina ([id number]) 1955 F Date Time Provider Department 12/13/24 LIDIA HIRSCH During your visit today, we recorded the following information about you: Lidia Hirsch DO 12/13/2024 4:01 PM Signed Called patient to let her know that HER-2 results are still in process. We discussed that is HER-2 is negative, then this is a triple negative breast cancer. Triple negative breast cancer is considered a more aggressive form of breast cancer. If this is the result, she would likely require neoadjuvant chemotherapy. I will plan to call her back with the final HER-2 results once they are available. Lidia Hirsch DO Allergies As of Date: 12/13/2024 Noted Allergy Reaction [id number] REDUCTASE INHIBIT*12/13/2024 17 - Myalgia Date Reviewed: 12/13/2024 Reviewed by: Elek Krueger, RN - Fully Assessed Prescriptions as of 12/13/2024 - lisinopril (ZESTRIL) 5 mg tablet Take 2.5 mg by mouth once daily. - omeprazole (PRILOSEC) 40 mg capsule Take 40 mg by mouth once daily. Problem List As Of Date: 12/13/2024 (None) Encounter Status:Closed by LIDIA HIRSCH on 12/13/24 Normal [facility] CBC panel Auto (Bld)on 12-08 Erythrocyte distribution width (RBC) [Ratio] 11.4 % Low 11.5 - 15.0 % [facility] Hematocrit (Bld) [Volume fraction] 43.7 % 36.0 - 46.0 % [facility] Hemoglobin (Bld) [Mass/Vol] 15.1 g/dL 11.5 - 15.5 g/dL [facility] Interpretation and review of laboratory results Abnormal [facility] MCH (RBC) [Entitic mass] 33.2 pg 26.0 - 34.0 pg [facility] MCHC (RBC) [Mass/Vol] 34.6 g/dL 30.5 - 36.0 g/dL [facility] MCV (RBC) [Entitic vol] 96 fL 80.0 - 100.0 fL [facility] Nucleated RBC (Bld) [#/Vol] NINF [facility] Platelet mean volume (Bld) [Entitic vol] 9.8 fL 9.0 - 12.7 fL [facility] Platelets (Bld) [#/Vol] 232 10*3/uL [facility] RBC (Bld) [#/Vol] 4.55 10*6/uL 3.90 - 5.2 0 m/uL [facility] WBC (Bld) [#/Vol] 5.42 10*3/uL [facility] Erythrocyte distribution width (RBC) [Ratio] 11.4 % Low 11.5-15.0 [facility] Comment on above: Order Comment: Speci men Type: BLOOD SPECIMEN Ordering Facility: [facility] Address: [address] [place] [address] Performed By: #### 5 8410-2 #### [facility] CLIA [id number] [address] [place] [facility] Hematocrit (Bld) [Volume fraction] 43.7 % Normal 36.0-46.0 [facility] Comment on above: Order Comment: Speci men Type: BLOOD SPECIMEN Ordering Facility: [facility] Address: [address] [place] [address] Performed By: #### 5 8410-2 #### [facility] CLIA [id number] [address] [place] Hemoglobin (Bld) [Mass/Vol] 15.1 g/dL Normal 11.5-15.5 [facility] Comment on above: Order Comment: Speci men Type: BLOOD SPECIMEN Ordering Facility: [facility] Address: [address] [place] [address] Performed By: #### 5 8410-2 #### [facility] CLIA [id number] [address] [place] MCH (RBC) [Entitic mass] 33.2 pg Normal 26.0-34.0 [facility] Comment on above: Order Comment: Speci men Type: BLOOD SPECIMEN Ordering Facility: [facility] Address: [address] [place] [address] Performed By: #### 5 8410-2 #### [facility] CLIA [id number] [address] MCHC (RBC) [Mass/Vol] 34.6 g/dL Normal 30.5-36.0 [facility] Comment on above: Order Comment: Speci men Type: BLOOD SPECIMEN Ordering Facility: [facility] Address: [address] [place] [address] Performed By: #### 5 8410-2 #### [facility] CLIA [id number] [address] [place] MCV (RBC) [Entitic vol] 96.0 fL Normal 80.0-100.0 [facility] Comment on above: Order Comment: Speci men Type: BLOOD SPECIMEN Ordering Facility: [facility] Address: [address] [place] [address] Performed By: #### 5 8410-2 #### [facility] CLIA [id number] [address] Nucleated RBC (Bld) [#/Vol] 10*3/uL Normal <0.01 [facility] Comment on above: Order Comment: Speci men Type: BLOOD SPECIMEN Ordering Facility: [facility] Address: [address] [place] [address] Performed By: #### 5 8410-2 #### [facility] CLIA [id number] [address] [place] Platelet mean volume (Bld) [Entitic vol] 9.8 fL Normal 9.0-12.7 [facility] Comment on above: Order Comment: Speci men Type: BLOOD SPECIMEN Ordering Facility: [facility] Address: [address] [place] [address] Performed By: #### 5 8410-2 #### [facility] CLIA [id number] [address] Platelets (Bld) [#/Vol] 232 10*3/uL Normal 150-400 [facility] Comment on above: Order Comment: Speci men Type: BLOOD SPECIMEN Ordering Facility: [facility] Address: [address] [place] [address] Performed By: #### 5 8410-2 #### [facility] CLIA [id number] [address] OF [facility] RBC (Bld) [#/Vol] 4.55 10*6/uL Normal 3.90-5.20 [facility] Comment on above: Order Comment: Speci men Type: BLOOD SPECIMEN Ordering Facility: [facility] Address: [address] [place] [address] Performed By: #### 5 8410-2 #### [facility] CLIA [id number] [address] WBC (Bld) [#/Vol] 5.42 10*3/uL Normal 3.70-11.00 [facility] Comment on above: Order Comment: Speci men Type: BLOOD SPECIMEN Ordering Facility: [facility] Address: [address] [place] [address] Performed By: #### 5 8410-2 #### [facility] CLIA [id number] [address] OF [facility] CNOVon 12-08-2024 CNOV Office Visit (PRABHJOT ) WILBERTOLIZ ([id number]) 1955 F Date Time Provider Department 12/08/24 10:30 AM LIDIA HIRSCH During your visit today, we recorded the following information about you: Blood pressure 147/75 Lidia Hirsch, 12/08/2024 1:20 PM Signed GENERAL SURGERY FOLLOW UP Liz is a 69-year-old female presenting for follow-up on left breast core needle biopsy results. Her accompanies her today. She was last seen in office in [place] one week ago for a left breast mass. Initial mammogram showed a 3 cm mass in the left breast, with no evidence of invasion into the chest wall. A core needle biopsy was obtained. 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 She endorses improving pain and resolving ecchymosis at the biopsy site. We reviewed in detail the pathology results and she was provided printed copies of her pathology report, imaging reports, and an outline of her clinical staging. She reports new onset of diarrhea since the last visit. Some chest discomfort. She denies hematochezia, new abdominal pain, dyspnea, cough, wheezing, bone pain, arthralgia, or paresthesia. Liz has upcoming travel plans to [facility] from the to the and a fishing trip to [place] in mid-January, which she is considering canceling. She also has a boat trip to the [place] in February and another trip planned for April. Respiratory: (-) shortness of breath, (-) cough, (-) wheezing Gastrointestinal: (+) diarrhea, (-) blood in stool, (-) abdominal pain Musculoskeletal: (-) bone pain, (-) joint pain Neurological: (-) dizziness, (-) numbness, (-) tingling Psychiatric: (+) anxiety 10 point review of systems completed and is otherwise negative On exam: 12/08/24 1038 BP: 147/75 BP Site: Left Arm BP Position: Sitting BP Cuff Size: Large Adult Gen: NAD, well-nourished Lungs: unlabored breathing, bilateral chest rise Breast: Left breast biopsy site healing well with mild resolving ecchymosis. Mildly ttp. No palpable left axillary lymphadenopathy. Participation of a fellow, resident, medical student, or advanced practice provider student in performing the sensitive examination was discussed with the patient or authorized patient relations representative. The patient or authorized patient relations representative has agreed to proceed with the sensitive examination. Pathology: Component FINAL DIAGNOSIS Left breast, core biopsy: Invasive carcinoma with apocrine features, at least Mitchel grade 2; see comment. at 1554 EDT Diagnosis Comment The biopsy shows an invasive carcinoma composed of scattered nests and short cords of tumor cells with ample eosinophilic granular cytoplasm and pleomorphic, hyperchromatic nuclei with prominent nucleoli in a background of fibrous tissue with a prominent lymphocytic infiltrate. The following immunohistochemical stains were performed on block A1 and evaluated in the tumor cells: - Keratin AE1/3: Positive - CAM5.2: Positive - GATA3: Positive - SOX10: Negative - ER: Negative - p63: No definite myoepithelial cell staining (scattered tumor cell staining noted) The findings are consistent with an invasive carcinoma with apocrine features, which measures up to 9.5 mm in this limited material. Results of quantitative ER, MS, and HER2 testing will follow in a linked report. Dr. Amanda Valencia has also reviewed this case and agrees with the diagnosis. Component ER status Negative (less than 1%) ER % staining <1 Estrogen Receptor (Staining Intensity) Not Applicable Estrogen Receptor Internal Control Present and Stained as Expected Estrogen Receptor External Control Present and Stained as Expected MS status Negative (less than 1%) MS % staining <1 Progesterone Receptor (Staining Intensity) Not Applicable Progesterone Receptor Internal Control Present and Stained as Expected Progesterone Receptor External Control Present and Stained as Expected HER2 IHC Status Equivocal for HER2 Overexpression HER2 IHC Score 2+ Tumor Type Primary Invasive Breast Carcinoma Breast Tumor Grade Grade 2 Assessment ASSESSMENT Breast cancer, stage 2, left (hcc) (primary encounter diagnosis) Malignant neoplasm of upper-inner quadrant of left breast in female, estrogen receptor negative (hcc) Infiltrating ductal carcinoma of left breast (hcc) Diarrhea, unspecified type RECOMMENDATION 1. Breast cancer, stage 2, left (HCC) (C50.912) Malignant neoplasm of upper-inner quadrant of left breast in female, estrogen receptor negative (HCC) (C50.212) Infiltrating ductal carcinoma of left breast (HCC) (C50.912) Biopsy results confirm invasive ductal carcinoma with apocrine features in the upper-inner quadrant of the left breast. Tumor size is approximately (more content not included)... Normal [facility] Rona 12-08-2024 [facility] Telephone (GENAIDENE) LIZ ROBLES ([id number]) 1955 F Date Time Provider Department 12/08/24 LIDIA HIRSCH During your visit today, we recorded the following information about you: Liz Goyal 12/08/2024 1:04 PM Signed Talking with patient she would like to know the result of the other tests that were done for more details of her cancer diag. Can you please call her Dr. Hirsch or clinical staff. Liz Treviño Allergies As of Date: 12/08/2024 (No Known Allergies) Date Reviewed: 12/08/2024 Reviewed by: Yaneth Adams MA - Fully Assessed Prescriptions as of 12/20/2024 - iv contrast (will be provided with radiology test) MRI Liver Inject, intravenously, once for 1 dose. No IV access, insert saline lock prior to the beginning of sedation, infusion, injection of imaging exam. Discontinue saline lock post exam. If Pt. has a central line or IVAD, may access for administration according to line specific nursing protocol. Once exam is complete flush line and de-access according to line specific nursing protocol in the MR contrast administration guidelines link. - iv contrast (will be provided with radiology test) MRI Breast JACINTO Inject, intravenously, once for 1 dose. No IV access, insert saline lock prior to the beginning of sedation, infusion, injection of imaging exam. Discontinue saline lock post exam. If Pt has a central line or IVAD, may access for administration according to line specific nursing protocol. Once exam is complete flush line and de-access according to line specific nursing protocol in the MR contrast administration guidelines link - lisinopril (ZESTRIL) 5 mg tablet Take 2.5 mg by mouth once daily. - omeprazole (PRILOSEC) 40 mg capsule Take 40 mg by mouth once daily. Problem List As Of Date: 12/08/2024 (None) Encounter Status:Closed by LIZ GOYAL on 12/20/24 [facility] CNPN Telephone (HEMSEBASTIAN) LIZ ROBLES ([id number]) 1955 F Date Time Provider Department 12/08/24 ORVILLE MARTINEZ HEMAWS During your visit today, we recorded the following information about you: Thais Cochran 12/08/2024 12:56 PM Signed Please review and advise - med onc and rad onc. Appt had been scheduled for Dr. Martinez for 01/04, however, once reviewed, we can reschedule if needed CONSULT TO ONCOLOGY Status: Needs Scheduling Requested appt date: Authorizing: Lidia Hirsch DO in [facility] Referral: [id number] (Authorized) Expires: 12/08/2025 Priority: Routine Diagnosis: Breast cancer, stage 2, left (HCC) [C50.912] Malignant neoplasm of upper-inner quadrant of left breast in female, estrogen re... Orville Martinez DO 12/08/2024 4:[address] Hirsch spoke with me about her this after at the hospital. I should see her sooner than the . DO Bo Hill Melanie, LPN 12/08/2024 4:38 PM Signed PSS- please schedule patient to see Dr. Martinez sooner than 01/04/2025. She also needs to see Dr. Avalos. MARISSA Rodriguez Naomi 12/09/2024 9:22 AM Signed Spoke w pt and the next available is 12/[address] Martinez, she leaves for [facility] on the so she wants to kepp her scheduled appt. Winsome Michaud LPN 12/09/2024 11:50 AM Signed See below. Patient also needs to see Dr. Avalos. MARISSA Rodriguez Angela 12/09/2024 12:29 PM Signed Spoke with patient and scheduled with Dr. Avalos on 12/13 at 9:30 Sylwia Sanchez Allergies As of Date: 12/08/2024 (No Known Allergies) Date Reviewed: 12/08/2024 Reviewed by: Yaneth Adams MA - Fully Assessed Reason for Visit: New Patient [172] Prescriptions as of 12/09/2024 - iv contrast (will be provided with radiology test) CT ABD/PEL -Inject, intravenously, once for 1 dose.No IV access, insert saline lock prior to the beginning of sedation, infusion, injection of imaging exam. Discontinue saline lock post exam. If Pt. has a central line or IVAD, may access for administration according to line specific nursing protocol. Once exam is complete flush line and de-access according to line specific nursing protocol in the CT contrast administration guidelines link. - lisinopril (ZESTRIL) 5 mg tablet Take 2.5 mg by mouth once daily. - omeprazole (PRILOSEC) 40 mg capsule Take 40 mg by mouth once daily. Problem List As Of Date: 12/08/2024 (None) Encounter Status:Closed by SYLWIA SANCHEZ on 12/09/24 Normal [facility] Comprehensive metabolic 2000 panelon 12-08-2024 Albumin [Mass/Vol] 4.4 g/dL 3.9 - 4.9 g/dL [facility] ALP [Catalytic activity/Vol] 80 U/L 34 - 123 U/L [facility] ALT [Catalytic activity/Vol] 24 U/L 7 - 38 U/L [facility] Anion gap [Moles/Vol] 10 mmol/L 8 - 15 mmol/L [facility] AST [Catalytic activity/Vol] 22 U/L 13 - 35 U/L [facility] Bilirubin [Mass/Vol] 0.4 mg/dL 0.2 - 1 .3 mg/dL [facility] Calcium [Mass/Vol] 9.9 mg/dL 8.5 - 10. 2 mg/dL [facility] Chloride [Moles/Vol] 102 mmol/L 98 - 10 7 mmol/L [facility] CO2 [Moles/Vol] 27 mmol/L 22 - 30 mmol/L [facility] Creatinine [Mass/Vol] 0.77 mg/dL 0.58 - 0.96 mg/dL [facility] GFR/1.73 sq M.predicted among non-blacks MDRD (S/P/Bld) [Vol rate/Area] 83 mL/min/{1.73_m2} - PINF [facility] Comment on above: Estimated Glomerular Filtration Rate (eGFR) is calculated using the 2020 CKD-EPI creatinine equation. This equation utilizes serum creatinine, sex, and age as parameters. The creatinine assay has traceable calibration to isotope dilution-mass spectrometry. Refer to KDIGO guidelines for clinical interpretation. In patients with unstable renal function, e.g. those with acute kidney injury, the eGFR may not accurately reflect actual GFR. Glucose [Mass/Vol] 102 mg/dL High 74 - 99 mg/dL [facility] Comment on above: The [place] [employer] (ADA) provides guidance for cutoff values for fasting glucose and random glucose. The ADA defines fasting as no caloric intake for at least 8 hours. Fasting plasma glucose results between 100 to 125 mg/dL indicate increased risk for diabetes (prediabetes). Fasting plasma glucose results greater than or equal to 126 mg/dL meet the criteria for diagnosis of diabetes. In the absence of unequivocal hyperglycemia, results should be confirmed by repeat testing. In a patient with classic symptoms of hyperglycemia or hyperglycemic crisis, random plasma glucose results greater than or equal to 200 mg/dL meet the criteria for diagnosis of diabetes. Reference: Standards of Medical Care in Diabetes 2016, [place] [employer]. Diabetes Care. 2016.39(Suppl 1). Interpretation and review of laboratory results Abnormal [facility] Potassium [Moles/Vol] 4.4 mmol/L 3.7 - 5.1 mmol/L [facility] Protein [Mass/Vol] 7.4 g/dL 6.3 - 8.0 g/dL [facility] Sodium [Moles/Vol] 139 mmol/L 136 - 144 mmol/L [facility] Urea nitrogen [Mass/Vol] 15 mg/dL 7 - 21 mg/dL [facility] Albumin [Mass/Vol] 4.4 g/dL Normal 3.9-4.9 [facility] Comment on above: Order Comment: Cam silva Type: BLOOD SPECIMEN Ordering Facility: [facility] Address: [address] [place] [address] Performed By: #### 2 4323-8 #### [facility] CLIA [id number] [address] STATES OF [facility] ALP [Catalytic activity/Vol] 80 U/L Normal 34-123 [facility] Comment on above: Order Comment: Cam silva Type: BLOOD SPECIMEN Ordering Facility: [facility] Address: [address] [place] [address] Performed By: #### 2 4323-8 #### [facility] CLIA [id number] [address] [place] [address] [place] ALT [Catalytic activity/Vol] 24 U/L Normal 7-38 [facility] Comment on above: Order Comment: Speci men Type: BLOOD SPECIMEN Ordering Facility: [facility] Address: [address] [place] [address] Performed By: #### 2 4323-8 #### [facility] CLIA [id number] [address] [place] [address] [place] Anion gap [Moles/Vol] 10 mmol/L Normal 8-15 [facility] Comment on above: Order Comment: Speci men Type: BLOOD SPECIMEN Ordering Facility: [facility] Address: [address] [place] [address] Performed By: #### 2 4323-8 #### [facility] CLIA [id number] [address] [place] AST [Catalytic activity/Vol] 22 U/L Normal 13-35 [facility] Comment on above: Order Comment: Speci men Type: BLOOD SPECIMEN Ordering Facility: [facility] Address: [address] [place] [address] Performed By: #### 2 4323-8 #### [facility] CLIA [id number] [address] [place] [address] [place] Bilirubin [Mass/Vol] 0.4 mg/dL Normal 0.2-1.3 [facility] Comment on above: Order Comment: Speci men Type: BLOOD SPECIMEN Ordering Facility: [facility] Address: [address] [place] [address] Performed By: #### 2 4323-8 #### [facility] CLIA [id number] [address] [place] Calcium [Mass/Vol] 9.9 mg/dL Normal 8.5-10.2 [facility] Comment on above: Order Comment: Speci men Type: BLOOD SPECIMEN Ordering Facility: [facility] Address: [address] [place] [address] Performed By: #### 2 4323-8 #### [facility] CLIA [id number] [address] [place] [address] [place] Chloride [Moles/Vol] 102 mmol/L Normal 98-107 [facility] Comment on above: Order Comment: Speci men Type: BLOOD SPECIMEN Ordering Facility: [facility] Address: [address] [place] [address] Performed By: #### 2 4323-8 #### [facility] CLIA [id number] [address] [place] [address] [place] CO2 [Moles/Vol] 27 mmol/L Normal 22-30 [facility] Comment on above: Order Comment: Speci men Type: BLOOD SPECIMEN Ordering Facility: [facility] Address: [address] [place] [address] Performed By: #### 2 4323-8 #### [facility] CLIA [id number] [address] [place] [address] [place] Creatinine [Mass/Vol] 0.77 mg/dL Normal 0.58-0.96 [facility] Comment on above: Order Comment: Terii men Type: BLOOD SPECIMEN Ordering Facility: [facility] Address: [address] [place] [address] Performed By: #### 2 4323-8 #### [facility] CLIA [id number] [address] Creatinine and Glomerular filtration rate.predicted panel (S/P/Bld) 83 mL/min/1.73m??? Normal >=60 [facility] Comment on above: Order Comment: Cam silva Type: BLOOD SPECIMEN Ordering Facility: [facility] Address: [address] [place] [address] Result Comment: Coco mated Glomerular Filtration Rate (eGFR) is calculated using the 2020 CKD-EPI creatinine equation. This equation utilizes serum creatinine, sex, and age as parameters. The creatinine assay has traceable calibration to isotope dilution-mass spectrometry. Refer to KDIGO guidelines for clinical interpretation. In patients with unstable renal function, e.g. those with acute kidney injury, the eGFR may not accurately reflect actual GFR. Performed By: #### 2 4323-8 #### [facility] CLIA [id number] [address] [place] [address] [place] Glucose [Mass/Vol] 102 mg/dL High 74-99 [facility] Comment on above: Order Comment: Speci men Type: BLOOD SPECIMEN Ordering Facility: [facility] Address: [address] [id number] Result Comment: The [place] Diabetes Association (ADA) provides guidance for cutoff values for fasting glucose and random glucose. The ADA defines fasting as no caloric intake for at least 8 hours. Fasting plasma glucose results between 100 to 125 mg/dL indicate increased risk for diabetes (prediabetes). Fasting plasma glucose results greater than or equal to 126 mg/dL meet the criteria for diagnosis of diabetes. In the absence of unequivocal hyperglycemia, results should be confirmed by repeat testing. In a patient with classic symptoms of hyperglycemia or hyperglycemic crisis, random plasma glucose results greater than or equal to 200 mg/dL meet the criteria for diagnosis of diabetes. Reference: Standards of Medical Care in Diabetes 2016, [place] [employer]. Diabetes Care. 2016.39(Suppl 1). Performed By: #### 2 4323-8 #### [facility] CLIA [id number] [address] [place] [address] [place] Potassium [Moles/Vol] 4.4 mmol/L Normal 3.7-5.1 [facility] Comment on above: Order Comment: Cam silva Type: BLOOD SPECIMEN Ordering Facility: [facility] Address: [address] [place] [address] Performed By: #### 2 4323-8 #### [facility] CLIA [id number] [address] [place] [address] [place] Protein [Mass/Vol] 7.4 g/dL Normal 6.3-8.0 [facility] Comment on above: Order Comment: Cam silva Type: BLOOD SPECIMEN Ordering Facility: [facility] Address: [address] [place] [address] Performed By: #### 2 4323-8 #### [facility] CLIA [id number] [address] [place] [address] [place] Sodium [Moles/Vol] 139 mmol/L Normal 136-144 [facility] Comment on above: Order Comment: Cma silva Type: BLOOD SPECIMEN Ordering Facility: [facility] Address: [address] [place] [address] Performed By: #### 2 4323-8 #### [facility] CLIA [id number] [address] [place] [address] [place] Urea nitrogen [Mass/Vol] 15 mg/dL Normal 7-21 [facility] Comment on above: Order Comment: Speci men Type: BLOOD SPECIMEN Ordering Facility: [facility] Address: [address] [place] [address] Performed By: #### 2 4323-8 #### [facility] [place] [id number] [address] [place] [address] [place] BREAST MARKERSon 12-07-2024 Block ID [id number] NVx bciEpHPYxoARvC3YvmimfJM nvWS5hKP3bjUifgIFvuGIeN MTlRrAmt2enp727lHGdp9yr ZWSFRMfwTWXYJHp5iSoqE07 ru8E4VbqfZ39lyVMlULB1RJ BaUTUznTUlVXNjZZC8QQKyk TObW6hsBXLxTH9clxhvFQzs JSkkANZcsIX8ZFIxjDWoC9Q fNXFuMVipFZTjgop3EmEdLj 9vdGVyeTcyMFxwYXJkXHBsY WluXGZzMjAgQTFccGFyfQ== [facility] Breast Tumor Grade Grade 2 [facility] Case Number [id number] aJMZtt8mzKGOloSCpRwMdNt NcZnRuYmpcdWMxXGRlZmYwe 1gnq353aRBvk5ieJUMyOcU5 wEFhNJZtcBJmG238SYCxEDf ri6uwh8ClARMcgFJpw8X1EB FFkprjrDm2oLeiE40aa0J7G vsfA1yqQZUyIBUaT5GvAY4x JPYuImr0YAZ9OGS3CUCaSTI iA4KqWC0pPFRsqJBkHAn7g5 bhtEltHDIdYQB5c2uaTYozs qGlMY8vmo1hiSc9x2vmblOc KDStSAMvmTDEARJfA7IegJe zCr2rdQk3yHzgEizgJFH5Bb t1AK1fav32ohb2aJgjRDWwd nbqFqK5USzyWTIvafhzAVg3 BXxvJKGrdYR4PLBfaWDcM7Q iGBNqQA8pkxr6GDU0LQhzZF RqWcI7HGVnxUKvHVWejLigR Ddzq921GOJ4KjYlSY6qQ0Lu o3Z7zT9ycFVaLXQbmZUiQtF mIYFazg1cjNLvIEpcy9FiRX N0usI1zOZbkGNpQJAiHF86Z tfdp6ApPeczTPN6ROAhfoUz t4Sky8zjOwSdipDiW2gnL7I yZHJoZWFkXHBnYnJkcmZvb3 Yzc9KkeOZzzNp0p1mbTWUcL FZtoItbw3llCKX1UTSyQ7T9 mFInq7yvSLuzSZIwgSV3yhD 4XEAywNDsU7YkrU6oPITwPR 0krpg8a1lkYGJ4TNqwCKKqI rP8gzP9AUIhtDFkUUSmiZtk OXzjn249DXQ7LtDwLODmj3H eI9IgsPnhL20vhVmxN66gEP XolAgarD4kuPnkrP8zQiLmW nMyNFxxbFxwbGFpblxmMVxm xiDpDFuxwdwcENCdIZvzL4f eUfSzKGNikNnkOHtzd8SyTA EiEENdNzUjHhN7QZO9FPd2O lxwYXJ9 [facility] Cold Ischemia Time >1 Hour [facility] Disclaimer e7palMSjHRUenKXhBWKf NVx 3sJPqf4H6lvehOE3lpBjhmC c0fWflOMVrtbM3jQDfJOqxk 4tcSSC6z0ccsbpuNESlKNkm Lp6vjWXlaFdrGkBpTCOvXTa 8hZ52JJVkhW9zeAGtKXaeih WeOQbpgtPrkzLfSyb0YYJ6r MxhWRUptfcaIfS5UWreVJFs ybsfEFu8RIxfEPUnlXL0NDR fnQRuN7TiVYSfRW7bpst2CP W0ONzbEXEmMkY4FKRgpKNuN FQshJhsPOqrk543ZPF8ZqDv MTCac1R9gtXhDaLjNEYgiRY 0meL7LRDwPH5huaxsw3mmFB sgNRyrCFVhbxA7ekB2JXXms DEsZ2SmzX6mKIQiJY1jqwuc q6frFEJ1FZfhFMJzTCErUSi rSDVpSaHtF8XcQYWkhmtbMS MrDwzscdD1KHqpAn8eGTGay igjXBQ6FQfhcWLqFEWnn8Jq QQfBCHyjRYqoS5yerT9wpop vbSJtDKXqRCWcfzMtye6zjp PfQRTfOTRsR8UlqqairUbtb rPtXkLvsE27wv0zkYJ2b4Bm DP4gV1AoFJQxqA64ak1meTN ktnLbH4OzrHGpyiCrQ2tgv9 9pQ3EfdMQcvR5tc4a8sLBrj JZjfREjweM6aV9oIQYiz2Ue IGhhdmUgYmVlbiBkZXRlcm1 ovmLxTZV7NYIwTTGzXQFwy7 LylR3tQRicHs3hKQVdasffu 9e2rZhdYNKrWCKbxILiUSCZ cPmcuDLwzLzbDKxhECw4EwL aNn3mWJC2UZwrWEJamNGjE5 aqLBZ0cX4in4f2LCIySTFRT XWkseI3d7Y4RT2gBPuorO0w HEKcgVQscI3uwvVkRT1tsB9 jW3NmbTMzAZxsr3UitACoJU RFe9IikuPCWA1nqwQsUVmvw 1BqhOEyTVEPnM3hsOKeNPbq p0WaraGTa3QmwHRjdChtGFC rT7kbXJ2euHw9WUxyNQzpLS skhqXZxIXixfTEPLFuH9ImK ENlbnRlciwgTWFydGluIEhl YQk5aPAQk1F7eDGMe8PgsRS cxLygn2PmZT4pf99hTO4ukG w9EHuiSEidZPFwdKNhknVwN PBjztZta0RsytDnf8s7yDLA VNiXEYAtaVPhilSrLG86pk3 iE51qPF9mBQ1owdYvw1FnlI lta8AkbOOufNVboDM5KKOob 1XpYzWyizLlwBYxnrYjZP4v CLBrfVHqtbTxVOJ5TNIoNUR GREEuIFJULVBMTSBpcyByZW j6wKG9OENwlC4fAJKhR4zYE OItzaTpsIFxwKSqQEClxH9a yLIyYa2qoVDjiQolBSNqaBM uUGrzxQlxkDXtsXtxKb6hYA emt8MwpQPxgOYlMWJnZWBnC PEwPn2pTUAthC5lT2TpEWM3 xpOfr8RqLnHPxZG9TKDuq3Z xKICgs7WpWhJqllMkYTYlJS UpMWPptN36ONY9qBknvBkqi fBiYQ0tNRXcatJyEDJmSREb yI1iUV5izDGpzyAoDK2nJW2 hA4W0oSJgKCIbqtEqo1dqNV W3KClmXYNvnXHlpVAsEYOhc HkuXHBhcn0= [facility] ER % staining [facility] ER status Negative [facility] Estrogen Receptor (Staining Intensity) Not Applicable [facility] Estrogen Receptor External Control Present and Stained as Expected [facility] Internal Control Present and Stained as Expected [facility] Fixative Formalin, 10% Neutra l Buffered [facility] HER2 IHC Score 2+ [facility] HER2 IHC Status Equivocal for HER2 Overexpression [facility] Interpretation Comment and Reference Range u1dcoDCxJBJlhGYiHEQzPVt 2hERjo1C9pzvuHV9ybSawwV t0eFcaVJLpsqB5jONwPCcty 1stKYG9p9uthxfbFLCaSEho Rx6gdZVrqIvzAaYuE0Gil9B rBUo6wJxtDnFxMZKkZFj5wC 26GGDpnW6veXYrMRqoiyYxB GmmgiTplbPsSic3GJA3cXpt GXUubupiQzS4CZvlFDLvuio lERj9WTpxUOJyfHB4CSUlkH SmS4FcREWrIU6bols1RWF5A EilFEQxZmO5KAJqbDQwCDHe vOlkAHdke621RCK6BeZbDZU ii1J6atXcBiMoBYSyaJR4gi J3JEYtZW5mylpqr7znHQckC ZjlBMQtpnT4ttK4HHGhfKKh K1LgvC0wPAFoDQ2kfebaf2d wFZD0FLogFMLcXDZlOWykGV RnOVOrQFScMnAdO6ZlPLZaR wKcPP2cEIBWVJ1kYCTqs8Jx YI2cbO9qPAJXMGHyqWLoviT 5KPWadyx6sXUeL8OsbL2rwi btUu5mEDANLV1dLHufHWA3D XIgdGhhbiBvciBlcXVhbCB0 twJkBOSeBaL4hIMyuMYdj0R nX4KynVPwpLGeV04sw8rbON IjFGOkr3WccPb9KQ2tzYOcD BJ2CMdvpW1eLYWhplRHGiRm MzDcHVEyAKKlCwT8oTHaxVF nw9TeD8SeePImjKLsC27wv8 xjDQCvUSYcc1fkjV5wwWBbe mUuXHBhciBTdGFpbmluZyBm s5BsRTBdj7TaZ8BjKUZuemV 9jQBcBQXjRCEjQlG7aJBxkM Ytd8QpH7MqzFWaqWLfM73qg 9zfUHOlDKUrq5PnzOo3YS9l sJEePSN1NKvcbP0cFNKmofS FUiBvciBQUiBvZiBsZXNzIH GpEK5uNDSomXXsS07gy7roW FFoMVTuJPbjcHy7DS6oZXAg clxwYXJcdWwgUmVmZXJlbmN xNTUnjaoyrlUmh6IoKWFQBc LOnA40nc5ulOX7z4QrUQ2na 1YgpEsksUHvQORbGBQJn8La bIj6WXSxOkayFvGBv95oeFV 7QBnyfC41UF2yITDugVYizS 1mZXJlbnRpYWwgbWVtYnJhb dEwa5FiqX0manzxfW2cY3Pe LNYxjnN2yNLaJHOrCHFaGbQ 1rO9jjeYxKDrtuz8yTXRble MNxRHkpj3pYXaxPUPnNVhaP 1WufbZ6thIlq6UikfT3QVPc r91pnLH8FAJlJL0cxkToRCM zdGFpbmluZyBvYnNlcnZlZC DzytDxhgNkfTTbURHjPS1sN WSrWI9iMOC8mP6kJSPdjIfo IwCbqHIrHK4pE2Z0qMNkIHr yNez2NWcnD18ctIbhkQNwED AzjT04QW3rnJUrAH3fPRL4F IgrnM6lLKuzHQatKJC2ALAf iQwfvzFgPQApm0AuzNFnk2U lP5FeoRCoWLMvwqSEWUfqtB q4ODSwSTy0VW1bJIW8UVdpi A0kTC2bTGsgO71weMyudHYh WcVicjXzlZHvEgGxqyHvz2Z dpN2mtogezK6yuFXiecL3cA AiCT1sEKHvmAYiKQDmURSwC WBsRxP3lE4jdmUrXEjxif1h tMMsJQOgavn9tFMPpjSxtuS jADTwgZgokkVJa08vCS37uo llIDBdodx3nAEaQ95fr4zmV BDahDokwmAaOeCie0efq5ld qVRmlWMcuLgxLmRtc2FxTPF SMlxpICAoRVJCQjIpIFxpMC HptNH8eBKoZqcyMfv2g6Vmx 2NlbmNlIGluIHNpdHUgaHli cmlkaXphdGlvbiAoRklTSCk oAu6sYWYaqCHgsDNfzx4jQD phJJKkWOBqEXS6cXToFOzxN GCwC31bkNKdLKKmIWFbJWW7 dCkvIJFdDZ3cKTUvOXJxQAZ gYSByZWZsZXggdGVzdCBpZi QHAITZJKcvmlDuh2ZySIS2Q TV1mV5sUM3ktCdiOA3js0l1 GFPnmoDwXNmrIE8pvF98BCM xEYZagwfhIQSwiQozXx88ZQ Svy8XeUELevZ08TWTah1Uro MVsEHDjkyq0lHTkFc2bIC7v lPurspAnQ5dpy7w5lOPdQNe vdyBsZXZlbCAoMSUtMTAlKS DvQkUFXtDhzKHcYXVfyL9aE OJ7VLcinCGrp0kzt9FlD9fq oUhseRL2PFB3dVYkFZDsvfZ qdHvtyWUdYEFyFIUoLT3zVR RoZSBvdmVyYWxsIGJlbmVma ZOzy3BgJJ1xc4XikF5jRGUe NEPzuWqrmaWoi0VlMEPiSSM fNU61EOrrzOxxxU26ONbcsx UwLAsdZB3xHHEhNZHXROP9s XKxs5Tnj37aJWD1oFB3tCE6 RUQ8doQrbtAqiYDwlWthRAW 7BGWbz1SbRxycNHYqnrVvwL IbUNOfuuZvEXGlKA48owSgx xHrQ20uv9ohLHOwZEUfiWrr wVBqVSWop1MxKC6zk6AviV5 fSALzLHS4sCZzqY6gyfUHf7 2oWNRcyDRofU8dwMTvoUKyl SfafEGpirYyz5j9TRPsIA4i IAEoPCuxmHzedQrmh0HfdvQ cpPk7byTskyQhwQZ9HHWaC3 KpCZ22nmXktvXdRUxwbzucb eFianXuMbvpcY1wfLPhxvBx n8J2SM6soSR3RLWhXU2tYYO 1uITpv3Jao44wsLNmLvofJY HufY8iEMAsgA1bqAUzVTSpH PESNL2yB8A2qURfDHPbijVu cnMuXHBhcn0= [facility] Latest ASCO/CAP guidelines for fixation met Yes [facility] Method b5tgbMXjCKTbmPDfCCXt NVx 7xXCzj7T2pqftNC1fiGzwcC d2fUpuFMWwkwO3tHNgQEniq 9wkHEN4k4qvkelnUGOwMUyo Sd0aiIBocPwxUkRrX9Hdy7Z iPGt6dXyvTwRkHMEaZIm6yO 85DMLmvS0ooBLmURipnrYwU RhuwqVlhsRcDwk8HER4JJCd TEIiPYrnXSDwXwZmNns6GRJ eZ57ylUIfLOE9BQMpDZCbnB KuCJFtWJV1RWNzmBTuV4juY IFyHQ1lwjfoVTjfFExjVTPj cJQ7EPLemSIsJ9GgXUBjRGo cLJGsnpd3PlZnUq6szMZxgN kmJMbfO2gfgS3gTqK4TQxiH 0kezI8jYHm2YZvsPTSnfKW1 ilP5QDRjnANdE9ZyvD9pCYU qEY9aouo3r7eaNOX7IPnqJU ZaPfS7akW3EBWwrCYfVHerf WTjisu8uYhzZWxoolYtFFCs BLUUf4Bfy3gkubPDSDCnwVG yoogqmEHaMKSeWWYKc28xEZ NcAXDVkmPuCHDtbBzlbXK8r nF9bL5rKHjCRICiXIAeSGWt SHZ3HHZaepZcjfRpUJEwiSS ruXWYaGX5SD0eVKNFuSSst7 0gWUSpELJyhwALcbkrFET1K QHxdBpkf9G9GvNIGIRdfORg YWHgaic1qIEJvf1zKQV5XNS sbtJpMwIlUEJ0p8Y3JSOfjs q7uMQvPxOUDMNuYDRwZBV6A FZlbnRhbmEgTWVkaWNhbCBT lCH1FO9iIXRZdTGtj87jAWO bSOTvgvOGulfmOKD0TLOvwR qqb3S7YhSNGJDtzSCsJWLqo do8sOZBFZLtLVC0LUqARytx cYMqKAWwHSYERXVrZ3soLHB lZDogVmVudGFuYSBNZWRpY2 PdQNO0g3UvsQZzRIE7F8Lkb wqnGMwbpREaVRHwsM1ymwxj RN83mAXqFDw9ODL3KKrjJWZ fpGIgENVzEOTzx6Vlw95gGL BaG2HhuM9pEQJqg7VoFFbam xCeqKXhKl1haKBlGLXoRJEy FGBtiuRaNLJqzlSiH4XpqqG enuFbOYxquZyvaStzMTy4yK TztBxrXZIeWDAmmm49NMDhG qzznUbtFKIbNAJyL5PqMXHt O8cfjGqzh3ZgS2xeigorWBm wG68ln2dfR4qwtIWqOQ9uEI ImUFGBk4tiIMklLY1nBYZjG OOeX7UlTGFgjNavoD8ovXW5 sr4oZUiyjCAnljXWRWagNMJ yBDvlMRDKp4Usn0uornXwfn ZoTVWgB6IbtRJzu39wBYBoU 3LcgW0uBVKql6IoixgviJ5e UtAsYBX7AAUjdbGgzpkwDB2 qrhnzDF3gV47klON0tFOgXt DFsRhcaSAysCBWukOcjI8sk MA3xyTkkvAftYknRQVrrJys N4Eih2CsYL0svdwoLX4xSNO 3oC0di2qgd3EgTMo7sZMavB luZSBVcGRhdGUuIFxpIEFyY 7ccOEO0sW3xQBknGyAIGLKd GLsrDTOiYOCtHX9xaByoLYQ zDXx8AHZ1SSH3Mi4zKK1VTC smWGHlXrLcXBtaIGV6SCifO jEgLlxwYXIgIFxwYXIgVGhl HWaaoa3qhzOuheDkYSC3g4Z gYXNzYXlzIGhhdmUgYmVlbi WqagOeex6sxSw3ERYfdHwrB XRlZCBvbiBkZWNhbGNpZmll ZVQ5bXTkwIKmYMcqk5YjjYH irjNvZL9snQUxw34jcPkvTI RrlgRcIIOqaqFEi0Bxg8kjx vRszfBptUHzF3LszZVim39a PLTsL1ExcT8jLEEvb8HpjZB gYXJlIHZhbGlkIGlmIHRpc3 K9ZWA2TVSwbPHwD5Ttx9XaY FFoV31qTHhgQhV0crFLN1FL Q5BMVPNsaHxrZSuplzNgOfb kRSZwdSYoZZJhnNybl7V0ST MvIRXWMIWjY4Xqy23jB0hgk MZjAoDCQF27NI7qN3HiKLL9 aHdheSBhbnRpLUhFUjIgcmF jLsx4UB3qxs9tfD6kSZwtDU 32cXTcFOqyIWLva63rIBKXU NcoRDXneaVujhJmD27fPkit fSTtbtJqFVAjqQPrB1YtFPK iZ4XdpX2hAKUtAlHyuEChu6 3mC8lfekQlJIVnvPfut8M4H DkrmS3zHUSWSCMwCJVvWGMO DO25XW3jCXYlbTauwWQqT8E yrRYkw03sNEDxO4UplP3qNL JyYjYpiGYed64hZ9zyhhZgY CHnfLoea0F9DBqhoC6tBLEE RTIpIGRldGVjdGVkIHdpdGg leMhtHIPimvDjjvHjFEb7wl IJzXK0EZXcmDCsspKjUYHWY cZXMOAcO9Gxs54uO4e8AKcl zvXhgeEutRVqpU05tV4lKvC xUEEbLDKuJ8Fgt63aREDVNX 66PA6yQH6hKCgqWCvyZ8eva ONhfsmqQHEqy53wXXVLYy7f sIMpHYPdnaKXs334id3zRVB feKOxwoptP9StwLUrjP2cFG PloqCtx9hgAVabwOgxjIsgv PybVBW5oBZnP8PmEWZqi8rg JCLvVYQkXYoexLj0AFEPWMT mFFXmr2UskV3lEQzuunQjy5 chkrglDHbfghdsm0y1fGJqq h42ksYhs4MpkVc3FKFcz568 kd0gQVQzx7H9JROmbnGrlNm mASRkiRmdpbPdgvE1dEStoN EzUAJbDORtjkVcpUC4JXQsR f7mOWfVMgCbBBaohfNij4rd ah2mAIQmiedeNTOyJGwbOLa YNtOmzM1jlO3oxZejkP2ssN FmnZN9wqajZAVpNWdxt9LkL DRkfnRgi1YgTGmwknGggDFr lRNtJZJtP84dZCKlNKEjIDL bKBBsnpToZNWkocIhM1Zxvg EvtyOuEKvkwLbovQvdECj7c TMmuHvmYGTwPHZzqp55ZBLj TwsakJqqLIQzAXZqU0ZfPOW aX7keoMgwq6KcV3ddoevbQJ ozA09aj1ysE8yhaDSrIF4hD TIvANWIu9ksMHdbAR4jEWOq QOJgD0ZoUJQqaSixhW2wbPR 3ik8gB36iAxKtWLZyJCNrZP qaARUrC0hqLXB5mN5dRYnqA rPEFFJaTAVxSRn2MOM2FVu1 KVxwYXJccGFyIFRoZSBIRVI oZYBxp8H4KEbpfaItw0VmMh YvbdQ0LOnmZOF9LUNqk56rM TVbEGruwHKfTLUgeZjpu4Uf rh2kM9k1KR8tfTogOBDun8Y uEtracVL1BY6nNAOjtNUvUC 6bQ3J3aMPeZVBjy9GmkVSgl 68rRVWbOHbnyJGkXKBza7Ii S7lrSH4gLDIcZEW5oMXlSVE qp6RaAIBiTRMxciRxbjWwKZ VcAOZ6hVXrLSNpxCNkt41gC HBhcn0= [facility] g8dcnTAlUWQgk9rkZCGp bGF uZzEwMzNcZnRuYmpcdWMxIH tccnRmMVxhbnNpXGRlZmxhb erdLMEtQJY1naDrAUMnXKD3 LRM8CmJyVUYgMjBrADUaEWW zr3dca1EdbQBtzAOmIJsqiX GxsxAdwq58dVH3lY35OX8dJ ZUvNlV4NLPkteC4Vtp3UIYd NAVylXLcL094y1fow3bsoaF geLA6wUayHKLjlcooBxW0MA msWFPzwarjHBj6ZKzwUVVhf YM5DKPnpWMfH9OrEDLsEG9r kef3YTT3TEfzZLWcNhB1CPN soPViEHRchIumPLhmk099LF Z9VcFqAQQii1C7luWqMmAoQ UBqmUS4opD5MBDkMV1wkjwh a7waVFarLDlhYSUubtE1jnQ 0QWBvrZJmQ3XcbQ3uLOSuPG 7bilnjq0kcUIJ0NFkhJSJeK DPqERinUCGuPbGeNFdrY46l m2RsNgCrnrUvlnIaZWGjiOa ydlOdFZCle0VvJHLtGTG9IN NsZXZlbGFuZCBDbGluaWMgT BCighNVPP6nzAEqYA4ovQz0 JDraYXAsj4GfdC6cjJpdBGA wMCBFdWNsaWQgQXZlbnVlLC KNOJSgGQtsHBbnL0jsbcEmR L6jCR0NHDQ3FTu8AHCjW4mO SVEsNoMZCAS5IbZ8GAtrIKR xXBQxpkTCJVYpuoG6v1L8VW YzegNddF0nYjJPIAn3RAJdL WSqesgzf7WwUU9IKOLnkj73 j2jznVYbMTQcwYVnMtOjXBR bNSAks9juROHwrJCaOlRcWt NcZnRuYmpcdWMxXGRlZmYwe 5nur957wHVlp8kiQEWeGuD3 vKKkMRSstRTkC833HUDrYIy su7fpq9RtSVOetIEld6S5LM NKigkfdZt3xDgnZ17ff2V9L eczA9wyMEKsBGTpG4InDT8i FQHgVzr8SWH1GOV2UILuFOB dR4VePK4hZOAkpIEtKOz0z0 lhwGewAJLhVEE5t1weXSlen cYbVO8cde8dzEk0u2xehqJi PJQvZDFpaNTTBYLtU9TjhHv mYw7rvId0tDqmOevmEQA6Wz h6EX3gfd50lib3zQrfOKKrv hhyNaS0XBdePTWkpormPMs3 DIvoKVJvqHZ7FNZuwUNpC7B pAXIxBJ5idit8JDE8CQkyFI VhGrX3UNBbfAFfZZQlsIymS Mide493FKM4RgHpWO7kD6Te p3O1fL7bmZQwQOBojUDsBxQ dGWHnex2uvPFvMSdgu6CmWD K4jzM4dHAgaMUrFFTgOY88T aors3UpWzxvHIP3GWJwsaSi y4Hth5oxKvKcszSsG0hkL1B yZHJoZWFkXHBnYnJkcmZvb3 Ich7OdxBBraQc3n3sqNLLpC JZveCuhf5cePGF4NMMnW1P5 kRObh4ygJFcwSPJgfYE5odA 5CPVrmIZdY7GotG2oGEUcPK 2mnwr2r3tnOGW3NOkaGMEcA xM1bbA2FKGirZGzZITpvGoe DBkqb042MAD5KxGjBVAtu4L lO6NryHevM59vnOuoM18bXX UseCnfeX8ozVangX8pIhZtA nMyNFxxbFxwbGFpblxmMVxm asXaFObstyniDXGoBRhxN0u vWcHbXCYisScrKPudi3XbQY TvDYNrRxUyRYewJ2Ebb48wJ 4LfdWewn8vvpcXnJI03gRTl mUnyJ4DnS83qODqkdQ9aupw gTUQsIFBoRFxwbGFpblxmMV xmczIyXGxhbmcxMDMzXGhpY 1ajZaIaQMOtsNufGVgta6Xq XGYxXGZzMjJccGFyfX0= [facility] % staining [facility] status Negative [facility] Progesterone Receptor (Staining Intensity) Not Applicable [facility] Pro[facility] Receptor External Control Present and Stained as Expected [facility] Internal Control Present and Stained as Expected [facility] Total Fixation Time >6 and <72 Hours [facility] 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 [facility] Was Specimen Decalcified No [facility] Pathology biopsy report Adolfo (Tiss)Ordered By: Moris Jain on 12-07-2024 Addendum f9aetEJbDWVxrSXnMRLu NVx apyTyPYZukACzI6PmfngtTW vbNG4uLD0aeZulsTSqpBHyZ JYqNoKfi5nru765tVRia7uy EHVOufuzmGt6gKssA25sz9L 0NrvjJ87tlHHuYYS3VTXqDW AqzNTlQTYfOUI1DFIrxWEuX 3jlYPJtAC5mibslTUecIZqq MVOueFC1RIMbfKUxA9EbCEJ fFQpaDYUrlqf8AiKyXp4afY VyeTcyMFxwYXJkXHBsYWluX GYyKoQaZQ1zmT0lvN5gaXjy vI0atENqvBSqaHPlpKHjlyG tc1QmJF2bve9yPA7ipgYjBS C8w2DfHYGuvrCper5nHPRwt yIbxJ8wajWFQPqfiFTdxoQt EWYqraOekW6tzCmrKNT5qF5 cBJIqfOnsBIMddcj1lQ5fRV LbHAihh3WnpSX1NDJfhX7ju mluZSBkaWZmZXJlbnRpYXRp z64fFYVuki7= [facility] Work Phone: Case Report Surgical Pathology Report Case: [id number] Authorizing Provider: Lidia Hirsch DO Collected: 12/01/2024 01:56 PM Ordering Location: General Surgery Received: 12/02/2024 08:57 AM Pathologist: Moris Jain MD, PhD Specimen: Breast, Left, Core Biopsy [facility] Work Phone: Clinical History [id number] bGF uTjQuOaJcIwEnDbf0GCSqbm Y2Kdr1DBSaPRiltT9fBFGsJ SblA3oltnOyqUErXYAfNBl6 hF6vaTgcnX0tVtAuTbVkNAN ZHBM2HAQeOGUloNGlTBXwEH BhciB9 [facility] Work Phone: Diagnosis Comment l0mdhBJwXCVayAHcKRLn NVx rqrIfAMIvxMGzN9WfrljsRN yiOU2hLC5wkCxvuNSvpTAfU ADdYiIke5iyj430gVOcd0oi DHQWrthykTm6oYisD24np0C 5EngiJ80giVOjJCE7TFWhAZ OamZCgCBKxGBL5CVCecZVbC 6npIWZnVP0llmqkZLnyUPcz QJWxlVI5MWHsoQZdI1GsLGM cTCrnBPEzjrx6NsEuAq8hmR VyeTcyMFxwYXJkXHBsYWluX TGhPmGbBUmyIHWuf5XscLSl dM29oyAtlhAtxzPyi2q1UJM cZIHsuP2hxHObD84orR3aIJ Ell1Ppw5VlhAGdzhNmTU1iv 7OpQNKxKSUxxU6yiZVrx6Gg voHoNcO8hO9bvcQfDYsxjmT 2fDToVHIyzTxyBXApe3hjq2 BoaWxpYyBncmFudWxhciBje IVjoNtjl12bFY1zDLJzJU9g k0LodLknMZRgrLJaoaAuth3 rGPMyKcGwwCRwDLqyi2r7zD Wogt8amN2ctnOysxJzlNQph DotdB3dJSJrPWEpG3JtuT7c DN5jNYFbCwMnvDMlkGwde1A dSVlpzMikTDSvgy6ttG8wxx XjrKfexQeeF4b3pIBymG8cy Ii9ezH0FQ6uCZNpjlfmJGZd YIgfNEGgnGrcl7ngXgGviW1 7jq3dwKI2r4KbON5pX0PuTE J1QPwktaB5JIOpQSMcuhDam p5dYZXugsYupC8funHAVADh bmQgZXZhbHVhdGVkIGluIHR bJHG4fL8gtyGnMPwmenqahB MiWA3fW0QjLAXelwRATHYtP bgdXVZen9z5qDAsKXXhfdHv NBULTPVuSrfoGQDuu7k3ePK lIFxwYXIgLSBHQVRBMzogIF Rcl6d7pZAhVILypuWrCLRDM DEwOiAgTmVnYXRpdmVccGFy LX5kPIP1PJNQUCexeZr3WHt kIKRwENEbGoB2RUQTqnRoDT Xwnqg8YLWijL7bkMv7oQDxj HPfHSOlxGuip1JhxP7xljud UVTfARK1FFKhOYE3iD3czvY uDJvgEQS0CMdpsV1jKW9ygK VkKVxwYXJccGFyIFRoZSBma R6lpM4vbfLxrhZdB89vf0me vHNafNK0hOKwZGHmSTmuehK yvBPoMTAdryJlod1hFBE2qS LgXASjb3NmuG1dMSOeZYH2r dDvMBV4bHobgBZhQHOjsKKt fhI0mJW1crI7EvEqhY4koE8 awJggqtFkcU7uoQXyQG5aeO VyaWFsLlxwYXJccGFyIFJlc 7UxzSHig0KpiLNzqgBliBM4 dSSnBAGYBDCKInptPJ7uILf WToPfvUAcgKclEkC7iAyeXQ ZvbGxvdyBpbiBhIGxpbmtlZ CByZXBvcnQuXHBhclxwYXIg RHIuIFNoZXJpbiBIYXNoZW0 omFRzJOWnr44dasO0kMJ1QU QgdGhpcyBjYXNlIGFuZCBhZ 6CqXBYlj4k7sTL1nQKcQIrz V75hg0pgTdKegLOclS== [facility] Work Phone: Disclaimer h3cfcPYkUMCav8wyTJAg bGF uZzEwMzNcZnRuYmpcdWMxIH tccnRmMVxlcGljMTExMDVcd 3lno7ypgJFzQVQyj0sbw1Yd dHBncGFyXGpleHBhbmRcbm9 2cBI8mE36JZ7mYPGiWiZ7WA HvxwC7Tjv2BUXtIFPsaUOaK 113p8uzf8quesGhtNL3QWBl HUBaZ9WxQM1gLZZobFQcR11 dySNzBNK9YLKzRFPakOAbKG RbGMZ0WJQfqULrY0wsNBZuH H6ktzaqPBgjIEkvAIXliHU1 OFKmaYSsV7MbORCqKAicGJB rktf6YsKwBw2paOYszTkmCE iuG1sflF5uVdH8ZLpcP4yrx P9nBUb4FNglAPEgnGO8xdU1 JZEisVEpI9FhjC6pDSGrLQ2 amcx1k3poMZL9DXonBQNfIu H4wjR6JHMsxQKvWEsljQNxf tkbHOSsYQNiD2JqSCejKu5v MIAkjjdwBKM8AHyucVZfTZV ip3LmXOpEVAygOCqeU0werO 1lcjpccGFyXGIwXGNmMCBQZ VSsg5ErMJ8tJBJkmVPhNBP8 QECbm1MdL7Jnu8AacL9fyO7 yjBnxkL0kfBCffVKlpQdwmY 1kbZ9uKbp6q8Xtw1RokgBmC HVhEFXpsYYnrC8fMK7tLtYr ks2omAU0JTy3UeOcHKp6CNW od94bfWRdzSSmcHG1VURpNX VuIGRldGVybWluZWQgYnkgd MdyNJOdkfLhwi6rzeipfWAz t2AibG6prDR0gBCttW0uZ0x vghFvEM5qAZMlnY8pSzceOA SlPmAflVQDWpFTe60riVCaN JUbbLlcaT7siXZlipPmGEPi a1PohK6hmWKARIRlL7tcFQP TMYVxrzVgOV49IArNKLxdZJ MesQQ7qhONt2YsbZHqkEheC Lqfq75cJ6BdFLDtqWDGk0Eb aXRhbCwgRmxvcmlkYSBXZXN 6s45aUJ6gyKh2LUdpFB4xaz B5BCahh0PptGXdNALIkuOaT H6aDzv0JVRlHSCiiKOwsGWT FT82DFMxQF0mfcKekwPYTRR snAsbOl7vlOweHZ0hfQh1FM moAX3lRAMkxP7nFXwgy2Caw MTzIPGtfuStFG3nmc1vpkUb n73fcJB4CU28BVbhgLjrJ1w ODCVhQAC7dMOyfBCotTMeAX 1oKYKmobGqo0QmQM7iYZKlV CVfORVuv6RaCI0tuLWle5Pv qYB8ESNwBPGzKFEfVICkTKA du6KeAHRnlb52UONcJnvsqX ydGKZLPY8iNgNiYIjFAFonU RUsE7ViLMEsELY2ogYagvZM SEhANCJrEUD3URhnYqggDCA 3gjLaIUAcn5XdGUjoM9xxU2 9vdZnkmGl7eQI7UNL9qY6rO cFEiEXfLLL2HOR6ueXebpUq kEEcDIYkq7QuB6sxxjotTDq ymIQzaV6uQELmMAFyLXXgGM Lto8EaWUHkk0KaNgDkslLpB PJpRVJiCPAxnC61WRR7pNdp mLxxwmOgRV6oXRPcmbOjXPI nVCVcxH8hUP7wbXUnlkDxKL 8iPK5iZ2G0wNLxSKXiwpOxd 5xpAYU0HAdaUJJegOOvkOBz WVVavXieRZSjsi43 [facility] Work Phone: FINAL DIAGNOSIS d9mscZKlTQFlrVKzGRJt NVx koiDcGTHjhACjF4CwhbcwWG ikAD7dYN2wpQuhaEHblEOiQ ESqWeWzd0yzf845lTMgv9fw GAVSonwxhTq1yZyeI05fr8P 3KgokX17qlDYaXQJ8IGYwGW VdsMKwUVNpMHU1PTDpiAMhB 8qqUDTgWH7nqkhsEQefRDjo NWOdgBA8BMKsqBErP8OyDTW hKIkaEDFxbfy7WcKrHq7ggJ VyeTcyMFxwYXJkXHBsYWluX GPqPpVuTJYuvDTaywRio0Bz CBHhchWnYxcaoDV7LwpgJFB qNK19PCTaibLjY1XxD2ryx7 8qQNgkzUesMLIhJ1BmrhYoB yCupNVdHDFpUWX9RGgiMCL9 CY7neDQotmsrDG6eN3IlZUV pYsjuv3SnJQBokJ9cszJqFH Bhcn0= [facility] Work Phone: Gross Description v8gtsEZlCECpaNQMMQUz MDJ dPY2glWhihIk0rYdcAGVrlh Q1gTBcUGumg4xmZPZ1k7wfy sYGBdzfBBKbHV9mFTjwWQYr RT5xUcCtQEBbPtJdNQPgmNZ ebiTcBcBrGKUrlYTkfEM6WT UdPU1zhzcqUTdeLTazRDFzz sD5KIOitHBnY1ChUVBuRH5y sjqbUGS5SOJRIggiTc2fsFE ibHtcZjFcZmNoYXJzZXQwXG Uhs7grrgYNpdwpuWq7yR7XA RGmC4SsJL7Mg7xkTPPmtGSl AHM3OYkgy6ciLVkzCNO6MXP fIKCmKDWdUP8HRqDaULijCU HtJaI3TcJ6OBu1POADDVWnU XD9MQs7HJTiDQo0XLqqESpv aCBcXHQgMSBcXGZsIFxcbmN 4t9awGXZoaMRfGMU2HFnui1 agNZkaIPQ8CGHgOmExTRUbX J5FNrGjDZjbGNGxIrG0JjR7 MJi8QAYYRyLhVuIcGiUgVYU 0CPCuIRb6UYv7EYkJBuLcGN C5ZVGoGDrlOFA8LTSqDeVyZ HQgMiBcXHNzIDMgXFxmbCBc GY5pxReoTGJlQV4ZXGRoFJk rJIFoUfGnKP2uQlAwYPJ8FI IDDAC5RMANe0HhBHArf0Mji VxsdHJjaFxmczIyXHBhciAN WrymTHCqQD3OLSAbHAdzHRx 1gpTfZCCtFdKbSCCoZ54ki4 FNm7YyIX7GYVg8zlPvahHPL coddiJqTDInE7RkcrWtKOzv HWCxgz2guUokPQ4sNLEzwSN hIGdhdXplIGxhYmVsZWQgYX ZwEphsNlEeWrRvPXF6UkJuu qTwvZUkyJbcvQXed8XepIAs hPNlr3UtN9jayT0haephJYi yhLcws7AtQALqB6FxC3C5mL 1mYPNzTTRcHxH5WOKzXlZ7I UHoKoXemHgrwZVelR54OQqw rUAcUTNsQDAdXcHfAPQ0LvX yduciZ95oi4feaMZpM7vqUN QaCGZukYVtmW3jycJ9TBLpc eLpv4ZhTOAlfb3qHFXuWICw PETgQL96DAP2AKKueFtgOOR bp2Tev2YwR4rivYDsBZ9xHE P3ImIfUkTqQvKpHG7hUYNgP PIpCT1mULDqfWmiuLniGXFc ZWNpbWVuIHdhcyBwbGFjZWQ wsA9mPs3xsAQbrK1gZCQeDP H7nG1lCK9bdNKhqHQvpESbS COtDKZvnVMcfQpzx9CvvNw9 mWEmDPxsQMUodr1feLbgAXl jYP0kOYEiKTBoRWK1FA0vDP BhciANClxwYXIgDQpDTCBBc DQbuKUqABlsGpShVYH3YwM8 IFBNXHBhciANClxwYXIgDQp Kdb7tmlQnlCYebY2wkKgaau StHCMul5NxUWIqYLDcD2zhw jUjSH2wETNgiQ2qVxbkXJSp JQRTcVPloIMhNUWbVfexG1k drhNuVI6xYZNOAOJ1EFK1CZ waERIlQFqnx8OhRAhxgMicK QHwAoEiSKvxQQPtI07qj7RA t8Mjc9hxrLqyw4WdmBXiAI1 4KFKswUGqCLT6DU9eeDnuMJ IgDQpccGFyZCANClxwbGFpb iANCn0= [facility] Work Phone: Performing Lab f8qwnGZkINAlgQEnBLOp Mlx oymUlHZHkxLFsE0IydmakYU mkSV9pTP8ltRfdlFFpsOYbM VBiQwCud6gmy369nLTdy4tm RSNSpozznFf6vHxpM48vs2Z 0PxsyY48ozSUeNZR4EOMcLS KlwCRgBCAlDDW7GWSlqKXtG 8zfSMKsNT4osdetXNqyKNia ZKMgzVO0BYBkeAXcN1EiVXF zYDwxDNThgtu1QrBeMq7wbW QkfRkuCXoyV3ywqY2gAnG2J CavS0mjpQ3hIJd9TXuoRKVl pLD6krE4PBRfsHSaF8MbmO7 fDBYwWU6nhzt6m0haGQC5BF ytSFKpSfT9uwL5JSPolXTyO FxwbGFpblxmczIwIERpYWdu d2V4sGEqbH08WNGhloF7EGB zu67yhECxIa3ytXJsAYM4Qj YVtIC9YPwhvoNyK2ebvvmiI D9uaM8aE6ZehSNsMFyac0Os cASlIChgVk7aLBKtpcifVHu 1VPAxQFVuyUgtJAZ0LG81BX wgRGVzayBMMjEsIENsZXZlb HMjXZIUUDV5PFD0PVFgKMMG LLChLPT0GAU8FSWxJVXrvTN sBZsrNQZgNKBlm0AryO8avB OUlGTyJ9ZqdlacI4UkxTVnU VbrykZpQ0qhMNLJXGbfEOQ8 [facility] Work Phone: [facility] Work Phone: BREAST MARKERSon 12-01-2024 AP BIOMARKER DISCLAIMER Normal [facility] Comment on above: Order Comment: Speci men Type: TISSUE SPECIMENOrdering Facility: [facility] Address: [address] [place] [address] Result Comment: Laboratory Developed Test (LDT) Disclaimer: Performance characteristics of immunohistochemical, immunofluorescent and chromogenic in-situ hybridization tests have been determined by the performing laboratory within [facility]???s [facility] Pathology and Laboratory Medicine Department ([facility], [facility], [facility], [facility], [facility], [facility], or [facility]) in a manner consistent with CLIA requirements. One or more of these tests have not been cleared or approved by the FDA. [facility] is regulated under CLIA as qualified to perform high-complexity testing. These tests are used for clinical purposes. They should not be regarded as investigational or for research. Positive and negative controls stain appropriately. Performed By: #### L [id number] ####[facility] LABCLIA [id number] [place] [address] [place] AP BLOCK ID [id number] Normal [facility] Comment on above: Order Comment: Cam [facility] Type: TISSUE SPECIMENOrdering Facility: [facility] Address: [address] [place] [address] Performed By: #### L [id number] ####[facility] LABIA [id number] [place] [id number] [place] ASCO/CAP GUIDELINES FOR FIXATION MET Yes [facility] Comment on above: Order Comment: Cam [facility] Type: TISSUE SPECIMENOrdering Facility: [facility] Address: [address] [place] [address] Performed By: #### L [id number] ####[facility] LABIA [id number] [place] [id number] [place] BIOMARKER INTERPRETATION COMMENT AND REFERENCE RANGE [facility] Comment on above: Order Comment: Terii [facility] Type: TISSUE SPECIMENOrdering Facility: [facility] Address: [address] [place] [address] Result Comment: Refe rence Range for Hormone Receptors: Staining for MS of greater than or equal to 1% of the tumor cells is considered positive. Staining for ER of 1-10% of the tumor cells is considered low positive. Staining for ER of greater than 10% of the tumor cells is considered positive. Staining for ER or MS of less than 1% is considered negative. Reference Ranges for HER2 Immunohistochemistry: Positive (3+): Complete, intense circumferential membrane staining in greater than 10% of tumor cells. Equivocal (2+): Weak to moderate complete membrane staining observed in greater than 10% of tumor cells. Negative (1+): Incomplete, faint membrane staining in greater than 10% of tumor cells. Negative (0): No staining or incomplete faint membrane staining in less than or equal to 10% of tumor cells. Interpretation Comments: Consideration of follow-up testing for HER2 (ERBB2) status by fluorescence in situ hybridization (FISH) for all equivocal (2+) results is recommended and will be ordered as a reflex test if FISH was not a testing methodology already employed. Note for ER low results. For malignancy with a low level (1%-10%) of ER expression by immunohistochemistry, there are limited data on the overall benefit of endocrine therapies for a patient with low level (1%-10%) ER expression, but they currently suggest possible benefits, so patients are considered eligible for endocrine treatment. Some data indicate that invasive cancers with these results are heterogeneous in behavior and biology and often have gene expression profiles more similar to ER-negative cancers. Performed By: #### L [id number] ####[facility] LABCLIA [id number] [address] [place] BIOMARKER METHOD Normal [facility] Comment on above: Order Comment: Speci men Type: TISSUE SPECIMENOrdering Facility: [facility] Address: [address] [place] [address] Result Comment: Estr ogen Receptor: Food and Drug Administration (FDA) cleared: [facility], [place], [place] Primary Antibody: SP1 Progesterone Receptor: FDA cleared: [facility], [place], [place] Primary Antibody: IE2 HER2 by IHC: FDA cleared: [facility], [place], [place] Primary Antibody:4B5 The hormone receptor tests were performed and reported in accordance with the guidelines approved by the [place] Society of Clinical Oncologists and the College of [place] Pathologists. Kristen MOREJON, et al. Estrogen and Progesterone Receptor Testing in Breast Cancer: [place] Society of Clinical Oncologists and the College of [place] Pathologists Guideline Update. Arch Pathol Lab Med. 2019;144(5):545-563. PMID: [id number]. The hormone receptor assays have been internally validated on decalcified tissues (for [facility] only). Estrogen and progesterone receptor results are valid if tissue was processed according to ASCO/CAP guidelines. Antibody and Detection System: [facility] anti-HER2 rabbit monoclonal antibody (clone 4B5), [facility] Confirm anti-estrogen receptor rabbit monoclonal antibody (clone SP1) and [facility] anti-progesterone receptor rabbit monoclonal antibody (clone IE2) detected with the [facility]View Univeral DAB Detection Kit (indirect biotin-free detection), [facility], [place], [place]. Control Slides: Cell line controls with high, equivocal, low, and negative HER2 protein expression, along with known positive control tissue and the patient's tissue, are evaluated for HER2 expression. The HER2 immunohistochemistry assay was developed, validated, scored, and reported in accordance with the guidelines approved by the [place] Society of Clinical Oncologists and the College of [place] Pathologists. Fransisco WESTBROOK et al. Arch Pathol Lab Med. 2018;1379(9) The HER2 assay has not been validated on decalcified tissues. Given the possibility of false negative results on decalcified specimens, results should be interpreted with caution. Performed By: #### L [id number] ####[facility] LABIA [id number] [place] [address] [place] BREAST TUMOR GRADE Grade [address] [facility] Comment on above: Order Comment: Speci men Type: TISSUE SPECIMENOrdering Facility: [facility] Address: [address] [place] [address] Performed By: #### L [id number] ####[facility] LABIA [id number] [address] STATES [place] [facility] CASE NUMBER INVASIVE [id number] Normal [facility] Comment on above: Order Comment: Speci men Type: TISSUE SPECIMENOrdering Facility: [facility] Address: [address] [place] [address] Performed By: #### L [id number] ####[facility] LABIA [id number] [address] STATES [place] COLD ISCHEMIA TIME >1 Hour Normal [facility] Comment on above: Order Comment: Speci men Type: TISSUE SPECIMENOrdering Facility: [facility] Address: [address] [place], [place] [address] Performed By: #### L [id number] ####[facility] LABCLIA [id number] [address] [place] [address] [place] ESTROGEN RECEPTOR (% TUMOR STAINING) <1 Normal [facility] Comment on above: Order Comment: Speci men Type: TISSUE SPECIMENOrdering Facility: [facility] Address: [address] [place], [place] [address] Performed By: #### L [id number] ####[facility] LABCLIA [id number] [address] [place] [address] [place] ESTROGEN RECEPTOR (STAINING INTENSITY) Not Applicable Normal [facility] Comment on above: Order Comment: Speci men Type: TISSUE SPECIMENOrdering Facility: [facility] Address: [address] [place] [address] Performed By: #### L [id number] ####[facility] LABCLIA [id number] [address], [facility] [place] ESTROGEN RECEPTOR EXTERNAL CONTROL Present and Stained as Expected Normal [facility] Comment on above: Order Comment: Speci men Type: TISSUE SPECIMENOrdering Facility: [facility] Address: [address] [place], [place] [address] Performed By: #### L [id number] ####[facility] LABCLIA [id number] [address], [facility] [place] ESTROGEN RECEPTOR INTERNAL CONTROL Present and Stained as Expected Normal [facility] Comment on above: Order Comment: Speci men Type: TISSUE SPECIMENOrdering Facility: [facility] Address: [address] [place] [id number] Performed By: #### L [id number] ####[facility] LABCLIA [id number] [address] [place] [address] [place] ESTROGEN RECEPTOR STATUS (INVASIVE) Negative Normal [facility] Comment on above: Order Comment: Speci men Type: TISSUE SPECIMENOrdering Facility: [facility] Address: [address] [place] [id number] Performed By: #### L [id number] ####[facility] LABCLIA [id number] [address] [address] [place] FINAL PERFORMING LAB Normal [facility] Comment on above: Order Comment: Speci men Type: TISSUE SPECIMENOrdering Facility: [facility] Address: [address] [place] [address] Result Comment: Diag nostic interpretation performed at: [facility], [address] [place], [place] [id number] CLIA# [id number] Pattern Chain Builder: Harrison Le MD Electronically signed out by: Moris Jain MD, PhD Performed By: #### L [id number] ####[facility] LABCLIA [id number] [place] [id number] [place] FIXATIVE Formalin, 10% Neutra l Buffered Normal [facility] Comment on above: Order Comment: Speci men Type: TISSUE SPECIMENOrdering Facility: [facility] Address: [address] [place] [address] Performed By: #### L [id number] ####[facility] LABCLIA [id number] [place] [address] [place] HER2 SCORE 2+ Normal [facility] Comment on above: Order Comment: Speci men Type: TISSUE SPECIMENOrdering Facility: [facility] Address: [address] [place] [address] Performed By: #### L [id number] ####[facility] LABCLIA [id number] [place] [id number] [place] HER2 STATUS (INVASIVE) Equivocal for HER2 Overexpression Normal [facility] Comment on above: Order Comment: Speci men Type: TISSUE SPECIMENOrdering Facility: [facility] Address: [address] [place], [place] [address] Performed By: #### L [id number] ####[facility] LABCLIA [id number] [address] [place] [address] [place] PROGESTERONE RECEPTOR (% TUMOR STAINING) <1 Normal [facility] Comment on above: Order Comment: Speci men Type: TISSUE SPECIMENOrdering Facility: [facility] Address: [address] [place], [place] [address] Performed By: #### L [id number] ####[facility] LABCLIA [id number] [address] [place] [address] [place] PROGESTERONE RECEPTOR (STAINING INTENSITY) Not Applicable Normal [facility] Comment on above: Order Comment: Speci men Type: TISSUE SPECIMENOrdering Facility: [facility] Address: [address] [place], [place] [address] Performed By: #### L [id number] ####[facility] LABCLIA [id number] [address] [place] [address] [place] PROGESTERONE RECEPTOR EXTERNAL CONTROL Present and Stained as Expected Normal [facility] Comment on above: Order Comment: Speci men Type: TISSUE SPECIMENOrdering Facility: [facility] Address: [address] [place], [place] [address] Performed By: #### L [id number] ####[facility] LABCLIA [id number] [address] [place] [address] [place] PROGESTERONE RECEPTOR INTERNAL CONTROL Present and Stained as Expected Normal [facility] Comment on above: Order Comment: Speci men Type: TISSUE SPECIMENOrdering Facility: [facility] Address: [address] [place], [place] [address] Performed By: #### L [id number] ####[facility] LABCLIA [id number] [address] [place] [address] [place] PROGESTERONE RECEPTOR STATUS (INVASIVE) Negative Normal [facility] Comment on above: Order Comment: Speci men Type: TISSUE SPECIMENOrdering Facility: [facility] Address: [address] [place], [place] [address] Performed By: #### L [id number] ####[facility] LABCLIA [id number] [place] [id number] [facility] OF [place] TOTAL FIXATION TIME >6 and <72 Hours Normal [facility] Comment on above: Order Comment: Speci men Type: TISSUE SPECIMENOrdering Facility: [facility] Address: [address] [place] [address] Performed By: #### L [id number] ####[facility] LABCLIA [id number] [place] [id number] [place] TUMOR TYPE (INVASIVE) Primary Invasive B reast Carcinoma Normal [facility] Comment on above: Order Comment: Speci men Type: TISSUE SPECIMENOrdering Facility: [facility] Address: [address] [place] [address] Performed By: #### L [id number] ####[facility] LABCLIA [id number] [address] OF [place] WAS SPECIMEN DECALCIFIED No Normal [facility] Comment on above: Order Comment: Speci men Type: TISSUE SPECIMENOrdering Facility: [facility] Address: [address] [place] [address] Performed By: #### L [id number] ####[facility] LABCLIA [id number] [place] [id number] [place] CNOVon 12-01-2024 CNOV Office Visit ([facility]ENS[facility] ) LIZ ROBLES ([id number]) 1955 F Date Time Provider Department 12/01/24 12:15 PM LIDIA HIRSCH During your visit today, we recorded the following information about you: Temperature Blood pressure Weight Height 98 degrees 110/82 74.8 kg 1.651 m Lidia Hirsch DO 12/09/2024 10:09 AM Signed Breast Services- History and Physical SERVICE DATE: 11/30/2024 REASON FOR TODAY'S VISIT: Left breast mass SUBJECTIVE: HISTORY of PRESENT ILLNESS: Liz Robles is a 69 year old female who presents to discuss results of recent mammogram which showed left breast mass 10 o'clock, 4-5 cm from the nipple. Patient states that she first noticed the lump in her breast about 2.5 weeks ago when she was in the shower. She admits that she does not performed regular self breast exams. One of her friends was recently diagnosed with breast cancer and so she decided to examine herself. She felt the lump and then followed up with her PCP who confirmed that it felt like a mass and imaging was required. She then completed a mammogram and left breast US at [facility] and presents today to discuss the results and next steps for biopsy. BREAST RELATED HISTORY: Abnormal Mammogram: No prior abnormal mammograms. Notes that she has been told in the past that she has dense breast tissue and small masses may have been missed due to this. Breast Mass: Yes, left breast Axillary Mass: No Nipple Discharge: No Breast Pain: Yes, occasional spearmint brody or flash of pain across the left breast. Breast Biopsy: No prior Breast Biopsy Pathology: NA Breast cyst drainage: No Breast reduction: No Breast reconstruction: No Genetic testing: No Prior personal history of breast cancer: No OBSTETRIC HISTORY: Age when menses began: 121/2 Date of LMP: in 40s Breast feed: No Age at first live : 28 Hysterectomy: No Oophorectomy: No Exogenous hormone use: No FAMILY CANCER HISTORY: *Patient reports no known history of Paternal side of the family The patient is not of Ashkenazic Ancestry Breast Cancer: Maternal Aunt, diagnosed 78-80yo. Ovarian Cancer: No Colon Cancer: No Prostate Cancer: No Cervical Cancer: Maternal Aunt, diagnosed in 60s. Lung Cancer: Maternal Uncle, diagnosed in 70s. . Maternal Uncle, diagnosed is 70s. . Maternal Uncle, diagnosed in 70s, . PAST MEDICAL HISTORY: No past medical history on file. PAST SURGICAL HISTORY: No past surgical history on file. FAMILY HISTORY: No family history on file. SOCIAL HISTORY: Employer And Job Title: None on file Years Of Education Completed: Not specified Marital Status: Social History Tobacco Use Smoking status: Never Smokeless tobacco: Never Drug Use: Not on file CURRENT MEDICATIONS: No prescriptions on file. ALLERGIES: ALLERGIES No Known Allergies REVIEW OF SYSTEMS: GENERAL: No weight loss, malaise or fevers. HEENT: Negative for frequent or significant headaches, No changes in hearing or vision, no nose bleeds or other nasal problems RESPIRATORY: Negative for cough, hemoptysis, wheezing or shortness of breath CARDIOVASCULAR: Negative for chest pain, leg swelling or palpitations. GI: No nausea, vomiting, or diarrhea : No history of dysuria, frequency or incontinence. 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 MUSCULOSKELETAL: Negative for joint pain or swelling, back pain or muscle pain. SKIN: Denies chronic skin conditions. PSYCH: Denies history of psychiatric illness. All other reviewed and negative other than HPI. OBJECTIVE: PHYSICAL EXAM: There were no vitals taken for this visit. There is no height or weight on file to calculate BMI. GENERAL:well-nourished, healthy, female, alert and oriented x 3, calm SKIN:warm, dry, skin color, texture, turgor normal HEAD/EYES:normocephalic , atraumatic, and anicteric NECK: supple, symmetrical, no thyromegaly RESPIRATORY: Respirations regular AND non-labored ABDOMEN: soft, nondistended. No hepatomegaly., No masses MUSCULOSKELETAL: No observed limitations in range of motion of upper extremities Patient ambulates independently LEFT BREAST: The breast skin and nipple areolar complexes appear normal without retraction or lesions. There is no nipple discharge. There is a palpable dominant mass in the upper inner quadrant of the left breast. No overlying skin changes. Area is mildly ttp. RIGHT BREAST: The breast skin and nipple areolar complexes appear normal without retraction or lesions. There is no nipple discharge. There is no dominant mass or clinical abnormality noted in right breast. LEFT REGIONAL LYMPH NODES: There is no concerning supraclavicular, infraclavicular or axillary lymphadenopathy RIGHT REGIONAL LYMPH NODES: There is no co (more content not included)... Normal [facility] FISH FOR HER-2on 12-01-2024 FISH FOR HER-2 FISH for HER2 Normal [facility] Comment on above: Order Comment: Speci men Type: TISSUE SPECIMENOrdering Facility: [facility] Address: [facility] [place] [address] Result Comment: Laboratory Accession Number: [id number] Case: [id number] Block/Part ID: A1 Sample Type: FFPET Sample Description: LEFT BREAST, CORE BIOPSY, invasive carcinoma Received Date: 12/08/2024 HER2 (ERBB2) Status by FISH: Non amplified INTERPRETATION: NEGATIVE for HER2 (ERBB2) GENE AMPLIFICATION Number of cells counted: 40 Number of observers: 2 Average HER2 (ERBB2) signal copy number per cell: 3.1 Average CEP17 signal copy number per cell: 2.0 HER2 (ERBB2)/CEP17 ratio: 1.6 Fixative: 10% neutral buffered formalin Fixation Time: >6 and <72 hours Cold Ischemic time: <1 hour Meets ASCO/CAP guidelines for fixative and fixation times: yes These results should be interpreted with caution if the above pre- analytical values do not meet the ASCO/CAP guidelines for tissue fixation and handling. Tissue sections for HER2 (ERBB2) analysis should not be used if cut > 6 weeks prior to testing. Reference ranges (2018 ASCO/CAP guidelines): HER2 (ERBB2) non amplified: HER2(ERBB2)/ CEP 17 ratio < 2.0 with <4.0 HER2 (ERBB2) signals/cell (Group 5) HER2 (ERBB2) amplified: HER2(ERBB2)/ CEP 17 ratio is >/= 2.0 with >/= 4.0 HER2 (ERBB2) signals/cell (Group 1) Nomenclature: nuc jazmin(D17Z1,ERBB2)x2~3[] METHODOLOGY: HER2 (ERBB2) gene amplification was manually evaluated on paraffin- embedded tissue by interphase fluorescence in situ hybridization (FISH), using a dual color probe set for the HER2 (ERBB2) locus at 17q12 and the centromeric region of chromosome 17 (PathVysion; [employer], [place], [place]). The [facility] Pathology [facility] Cytogenomics Laboratory of the [facility] has validated modifications of the PathVysion kit used for the testing, including the use of Target Retrieval Solution and Proteinase K (Dako (Agilent); Agency) for cell conditioning, and modified probe/target denaturation and hybridization conditions for the assay. Internal and external (amplified and non-amplified) controls are evaluated. The in situ hybridization analysis was performed and correlated with preselected areas of invasive carcinoma deemed adequate for analysis by a pathologist. The HER2 (ERBB2) assay was developed, validated, and reported in accordance with guidelines published by the [place] Society of Clinical Oncology (ASCO) and the College of Trin[place]adian Pathologists (CAP) (Fransisco WESTBROOK, et al. J Clin Oncol. 2018. PMID: 47417994); and, Recommendations for Human Epidermal Growth Factor Receptor 2 Testing in Breast Cancer: [place] Society of Clinical Oncology/College of [place] Pathologists Clinical Practice Guideline Focused Update (2018). The assay has been validated on tissues decalcified in EDTA only. As with all decalcified specimens, the results should be interpreted with caution given the likelihood of false negativity on these specimens. Negative results should, therefore, be interpreted with caution for specimens not meeting the ASCO/CAP guidelines. DISCLAIMER: This test was developed and its performance characteristics determined by [facility]'s Pathology and Laboratory Medicine Department. It has not been cleared or approved by the FDA. [facility]'s Pathology and Laboratory Medicine Department is regulated under CLIA as qualified to perform high-complexity testing. This test is used for clinical purposes. It should not be regarded as investigational or for research. Test performed at [facility], [address] [place] [address]. CLIA Number: [id number] Interpretation performed by Bin Huerta MD Performed By: #### H ER2F ####[facility] [id number] [place] [address] [place] [facility] 12-02-19 [facility] * * *Final Report* * * DATE OF EXAM: Dec 01 2024 3:34PM [facility] 0621 - [facility] / PROCEDURE REASON: Mass of upper inner quadrant of left breast * * * * Physician Interpretation * * * * RESULT: [facility] [address] [place] [address] #[id number] - [facility] HISTORY: 69 year-old patient seen for diagnostic evaluation of post-ultrasound guided clip placement in the left breast. Patient states no personal history of breast cancer. The patient has a family history of breast cancer. COMPARISON STUDIES: The present examination has been compared to a prior imaging study dated 11/26/2024 (mammogram). MAMMOGRAM TECHNIQUE: The study was acquired using full field digital technology and interpreted from soft copy. MAMMOGRAM FINDINGS: The breast is heterogeneously dense, which may obscure small masses. IMPRESSION: Finding in the left breast shows a successful clip placement at the 10:00 position, middle depth. Mammogram BI-RADS: Post-procedure mammogram for marker placement RISK: Based on the Tyrer-Cuzick (TC) risk assessment model, this patient has a 9.4% lifetime risk of developing breast cancer, meaning they are at average risk for developing breast cancer. However, this is only an estimate based on available history provided on the patient's questionnaire. We encourage all patients to talk with their providers about these results, further recommendations for managing breast health, and appropriate supplemental screening options if the patient has dense breast tissue. Interpreting Radiologist: Sav Kenyon M.D. Electronically signed on: 12/01/2024 Cargo Agent: ZEHRA Transcribe Date/Time: Dec 01 2024 2:44P Dictated by: SAV KENYON MD This examination was interpreted and the report reviewed and electronically signed by: SAV KENYON MD on Dec 01 2024 4:03PM EST [id number] Normal [facility] Breast - left Diagnostic for implanton 12-01-2024 IMPRESSION: Finding in the left breast shows a successful clip placement at the 10:00 position, middle depth. Mammogram BI-RADS: Post-procedure mammogram for marker placement RISK: Based on the Tyrer-Cuzick (TC) risk assessment model, this patient has a 9.4% lifetime risk of developing breast cancer, meaning they are at average risk for developing breast cancer. However, this is only an estimate based on available history provided on the patient's questionnaire. We encourage all patients to talk with their providers about these results, further recommendations for managing breast health, and appropriate supplemental screening options if the patient has dense breast tissue. Interpreting Radiologist: Sav Kenyon M.D. Electronically signed on: 12/01/2024 Cargo Agent: ZEHRA Transcribe Date/Time: Dec 01 2024 2:44P Dictated by: SAV KENYON MD This examination was interpreted and the report reviewed and electronically signed by: SAV KENYON MD on Dec 01 2024 4:03PM EST DIVISION OF RADIOLOGY * * *Final Report* * * DATE OF EXAM: Dec 01 2024 3:34PM [facility] DIAGNOSTIC LT / PROCEDURE REASON: Mass of upper inner quadrant of left breast * * * * Physician Interpretation * * * * RESULT: [facility] [address] [place] [address] #[id number] - [facility] HISTORY: 69 year-old patient seen for diagnostic evaluation of post-ultrasound guided clip placement in the left breast. Patient states no personal history of breast cancer. The patient has a family history of breast cancer. COMPARISON STUDIES: The present examination has been compared to a prior imaging study dated 11/26/2024 (mammogram). MAMMOGRAM TECHNIQUE: The study was acquired using full field digital technology and interpreted from soft copy. MAMMOGRAM FINDINGS: The breast is heterogeneously dense, which may obscure small masses. DIVISION OF RADIOLOGY Provider, [facility] - 12/01/2024 * * *Final Report* * * DATE OF EXAM: Dec 01 2024 3:34PM [facility] 0621 [facility] DIAGNOSTIC LT / PROCEDURE REASON: Mass of upper inner quadrant of left breast * * * * Physician Interpretation * * * * RESULT: [facility] [address] [place], [place] [address] #[id number] - [facility] HISTORY: 69 year-old patient seen for diagnostic evaluation of post-ultrasound guided clip placement in the left breast. Patient states no personal history of breast cancer. The patient has a family history of breast cancer. COMPARISON STUDIES: The present examination has been compared to a prior imaging study dated 11/26/2024 (mammogram). MAMMOGRAM TECHNIQUE: The study was acquired using full field digital technology and interpreted from soft copy. MAMMOGRAM FINDINGS: The breast is heterogeneously dense, which may obscure small masses. IMPRESSION IMPRESSION: Finding in the left breast shows a successful clip placement at the 10:00 position, middle depth. Mammogram BI-RADS: Post-procedure mammogram for marker placement RISK: Based on the Tyrer-Cuzick (TC) risk assessment model, this patient has a 9.4% lifetime risk of developing breast cancer, meaning they are at average risk for developing breast cancer. However, this is only an estimate based on available history provided on the patient's questionnaire. We encourage all patients to talk with their providers about these results, further recommendations for managing breast health, and appropriate supplemental screening options if the patient has dense breast tissue. Interpreting Radiologist: Sav Kenyon M.D. Electronically signed on: 12/01/2024 Cargo Agent: ZEHRA Transcribe Date/Time: Dec 01 2024 2:44P Dictated by: SAV KENYON MD This examination was interpreted and the report reviewed and electronically signed by: SAV KENYON MD on Dec 01 2024 4:03PM EST [facility] Radiology Study observation (narrative) [facility] MG Breast - left Diagnostic for implantOrdered By: Ccf Provider on 12-01-2024 [facility] Pathology biopsy report Adolfo (Tiss)on 12-01-2024 ADDENDUM 1: Normal [facility] Comment on above: Order Comment: Speci men Type: TISSUE SPECIMENOrdering Facility: [facility] Address: [address] [place] [address] Result Comment: An i mmunohistochemical stain for androgen receptor (performed on block A1) is negative in the tumor cells, arguing against true apocrine differentiation. Addendum electronically signed by Moris Jain MD, PhD on 12/07/2024 at 1543 EDT Performed By: #### 6 6121-5 ####[facility] LABCLIA [id number] [address] [place] AP DISCLAIMER Normal [facility] Comment on above: Order Comment: Speci men Type: TISSUE SPECIMENOrdering Facility: [facility] Address: [address] [place] [address] Result Comment: Elen gabriel Developed Test (LDT) Disclaimer: Performance characteristics of immunohistochemical, immunofluorescent, and chromogenic in-situ hybridization tests have been determined by the performing laboratory within [facility]'s [facility] ([facility], [facility], [facility], [facility], [facility], [facility], or [facility]) in a manner consistent with CLIA requirements. One or more of these tests may not have been cleared or approved by the FDA. [facility] is regulated under CLIA as qualified to perform high-complexity testing. These tests are used for clinical purposes. These should not be regarded as investigational or for research. Positive and negative controls stain appropriately. Performed By: #### 6 6121-5 ####[facility] [id number] [place] [id number] [place] CASE REPORT Normal [facility] Comment on above: Order Comment: Cam silva Type: TISSUE SPECIMENOrdering Facility: [facility] Address: [address] [place] [address] Result Comment: Surg [facility] Pathology Report Case: [id number] Authorizing Provider: Lidia Hirsch DO Collected: 12/01/2024 01:56 PM Ordering Location: General Surgery Received: 12/02/2024 08:57 AM Pathologist: Moris Jain MD, PhD Specimen: Breast, Left, Core Biopsy Performed By: #### 6 6121-5 ####[facility] [id number] [place] [address] [place] CLINICAL HISTORY Left breast mass Normal [facility] Comment on above: Order Comment: Cam silva Type: TISSUE SPECIMENOrdering Facility: [facility] Address: [address] [place] [address] Performed By: #### 6 6121-5 ####[facility] [id number] [place] [id number] [facility] DIAGNOSIS COMMENT Normal [facility] Comment on above: Order Comment: Cam silva Type: TISSUE SPECIMENOrdering Facility: [facility] Address: [address] [place] [address] Result Comment: The biopsy shows an invasive carcinoma composed of scattered nests and short cords of tumor cells with ample eosinophilic granular cytoplasm and pleomorphic, hyperchromatic nuclei with prominent nucleoli in a background of fibrous tissue with a prominent lymphocytic infiltrate. The following immunohistochemical stains were performed on block A1 and evaluated in the tumor cells: - Keratin AE1/3: Positive - CAM5.2: Positive - GATA3: Positive - SOX10: Negative - ER: Negative - p63: No definite myoepithelial cell staining (scattered tumor cell staining noted) The findings are consistent with an invasive carcinoma with apocrine features, which measures up to 9.5 mm in this limited material. Results of quantitative ER, MS, and HER2 testing will follow in a linked report. Dr. Amanda Valencia has also reviewed this case and agrees with the diagnosis. Performed By: #### 6 6121-5 ####[facility] LABCLIA [id number] [address] FINAL DIAGNOSIS Normal [facility] Comment on above: Order Comment: Speci ricardo Type: TISSUE SPECIMENOrdering Facility: [facility] Address: [address] [place] [address] Result Comment: Left breast, core biopsy: Invasive carcinoma with apocrine features, at least [place] grade 2; see comment. at 1554 EDT Performed By: #### 6 6121-5 ####[facility] LABIA [id number] [address] OF [facility] FINAL PERFORMING LAB Normal [facility] Comment on above: Order Comment: Terii ricardo Type: TISSUE SPECIMENOrdering Facility: [facility] Address: [address] [place] [address] Result Comment: Diag nostic interpretation performed at: [facility], [address] [place], [place] [address] CLIA# [id number] Pattern Chain Builder: Harrison Le MD Performed By: #### 6 6121-5 ####[facility] LABIA [id number] [address] GROSS DESCRIPTION Normal [facility] Comment on above: Order Comment: Terii ricardo Type: TISSUE SPECIMENOrdering Facility: [facility] Address: [address] [place] [address] Result Comment: Trae. Olivia reast, Left, Core Biopsy Received in formalin on Telfa gauze labeled as left breast are multiple segments of cylindrical tissue aggregating to 2.3 x 0.7 x 0.3 cm, yellow-white and of a rubbery consistency. The specimen was removed from the patient at a time not specified on 12/01/2024. On the same day, the specimen was placed in formalin at a time not specified. Totally submitted in formalin in one cassette. CL December 02, 2024 5:37 PM Gross examination performed at [facility], [address] [place] [address] Performed By: #### 6 6121-5 ####[facility] LABCLIA [id number] [address] OF [facility] US BREAST BIOPSY LEFT (POC) SURG USE ONLYon 12-01-2024 [facility] [place] MAMMOGRAM DIAGNOSTIC BILA TERAL W/TOMOon 11-26-2024 [place] MAMMOGRAM DIAGNOSTIC BILATERAL W/FABRIZIO ORIGINAL FROM: MIRNA [address] [address] PROCEDURE FOR: LIZ ROBLES [address] [place] [address] [place] [address] Home: PID#: [id number] Exam#: [id number] : 1955 Age: 69 TO: BABITA MORATAYA [facility] [address] [place], [place] [address] Fax: NO FAX EXAMINATION: DIAGNOSTIC BILATERAL MAMMOGRAM WITH TOMOSYNTHESIS, 11/26/2024 9:41 am TECHNIQUE: Tomosynthesis was performed as part of the diagnostic bilateral mammogram. 2D standard and 3D tomosynthesis combination imaging performed. Current study was also evaluated with a Computer Aided Detection (CAD) system. COMPARISON: Mammogram November 06, 2022, July 18, 2020, April 21, 2018 HISTORY: ORDERING SYSTEM PROVIDED HISTORY: Reason for Exam: left breast mass FINDINGS: BREAST DENSITY: The breasts are heterogeneously dense, which may obscure small masses. There is a 3 cm irregular focal asymmetry within the left breast at 9 o'clock, middle depth. This is seen in additional views and correlates with the patient's area of palpable/clinical concern. There is a calcification within the right breast. No additional significant masses, calcifications, or other findings. IMPRESSION: The 3 cm irregular focal asymmetry within the left breast appears indeterminate. Left breast ultrasound will be done today and reported separately. BIRADS: BI-RADS: 0: Incomplete: Need Additional Imaging Evaluation RECALL: immediate RECALL TYPE: Left US LETTER SENT: Abnormal-Needs additional work up BI-RADS 0 Interpreted by: Lynne Geronimo MD Preliminary Report By: Lynne Geronimo MD Electronically signed By Lynne Geronimo MD Dictated Date: 11/26/2024 10:52:05 AM Prelim Date: 11/26/2024 10:55:33 AM Sign Date: 11/26/2024 10:55:33 AM Ordering Provider: BABITA MORATAYA [employer] Grader: MER KO RT (R)(M) letter sent: Abnormal-Needs additional work up BI-RADS 0 Mammogram BI-RADS: 0 Indeterminate Normal [facility] US BREAST LEFT LIMITEDon US BREAST LEFT LIMITED ORIGINAL FROM: [address] [address] PROCEDURE FOR: LIZ ROBLES [address] [place] [address] Home: PID#: [id number] Exam#: [id number] : 1955 Age: 69 TO: BABITA MORATAYA [facility] [address] [place] [facility] [phone] Fax: NO FAX EXAMINATION: ULTRASOUND OF THE LEFT BREAST 11/26/2024 9:41 am TECHNIQUE: Color flow and katz scale targeted ultrasound of the 10 o'clock region and axilla were performed. Permanently stored images were reviewed. COMPARISON: Mammogram from the same date HISTORY: ORDERING SYSTEM PROVIDED HISTORY: Reason for Exam: left breast mass FINDINGS: There is a 2.6 cm irregular hypoechoic mass within the left breast at 10 o'clock, 4-5 cm from the nipple. There is posterior acoustic shadowing and increased vascularity. The this correlates with the mammographic finding and area of clinical concern. Normal appearing lymph node is seen within the left axilla. IMPRESSION: The 2.6 cm irregular hypoechoic mass within the left breast appears suspicious of malignancy. Ultrasound-guided core biopsy is recommended. BIRADS: BI-RADS: 4: Suspicious RECALL: immediate RECALL TYPE: Biopsy followup LETTER SENT: Biopsy Recommended BI-RADS 4 and 5 Interpreted by: Lynne Geronimo MD Preliminary Report By: Lynne Geronimo MD Electronically signed By Lynne Geronimo MD Dictated Date: 11/26/2024 10:55:42 AM Prelim Date: 11/26/2024 10:58:22 AM Sign Date: 11/26/2024 10:58:22 AM Ordering Provider: BABITA MORATAYA [employer] Stock Grader: LIZ MCKENNA [facility] letter sent: Biopsy Recommended BI-RADS 4 and 5 Ultrasound BI-RADS: 4 Suspicious for malignancy Normal [facility] .GFRon 11-10-2024 Estimated Glomerular Filtration Rate 76 ml/min/1.73sqm Normal [facility] Comment on above: Result Comment: Stages of Chronic Kidney Disease (CKD) Stage Description eGFR(ml/min/1.73 sq.m.) CKD 1 Normal kidney function or >=90 normal kindney function with possible kidney damage (ex. Proteinuria) CKD 2 Kidney damage with mild loss 60-89 of kidney function CKD 3a Mild to moderate loss of kidney 45-59 function CKD 3b Moderate to severe loss of 30-44 of kindey function CKD 4 Severe loss of kidney function 15-29 CKD 5 Kidney failure <15 Note: (go live 2024) the eGFR calculation was updated to the 2020 CKD-EPI creatinine equation without a race factor to calculate the eGFR results. Performed By: #### G FR, CMP, LIPID ####[facility] [address] [place], [place] [address] CMPon 11-10-2024 Albumin Level 3.9 G/dL Normal 3.4-4.8 [facility] Comment on above: Performed By: #### G FR, CMP, LIPID ####[facility] [address] [place], [place] [address] Albumin/Globulin [Mass ratio] 1.2 {ratio} Normal 1.1-2.5 [facility] Comment on above: Performed By: #### G FR, CMP, LIPID ####[facility] [address] [place], [place] [address] ALP [Catalytic activity/Vol] 71 U/L Normal 40-135 [facility] Comment on above: Performed By: #### G FR, CMP, LIPID ####[facility] [address] [place], [place] [address] ALT [Catalytic activity/Vol] 39 U/L Normal 14-59 [facility] Comment on above: Performed By: #### G FR, CMP, LIPID ####[facility] [address] [place], [place] [address] AST [Catalytic activity/Vol] 22 U/L Normal 10-40 [facility] Comment on above: Performed By: #### G FR, CMP, LIPID ####[facility] [address] [place], [place] [address] Bili Total 0.9 mg/dL Normal 0.2-1.0 [facility] Comment on above: Result Comment: Use of this assay is not recommended for patients undergoing treatment with eltrombopag due to the potential for falsely elevated results. Performed By: #### Rosario FR, CMP, LIPID ####[facility] [address] [place], [place] [address] BUN/Creatinine Ratio 16 ratio Normal 7-27 [facility] Comment on above: Performed By: #### G FR, CMP, LIPID ####[address] [place], [place] [address] Calcium [Mass/Vol] 9.8 mg/dL Normal 8.4-10.2 [facility] Comment on above: Performed By: #### G FR, CMP, LIPID ####[address] [address] [place], [place] [address] Chloride [Moles/Vol] 106 mmol/L Normal 98-107 [facility] Comment on above: Performed By: #### G FR, CMP, LIPID ####[address] [place], [place] [address] CO2 [Moles/Vol] 30 mmol/L Normal 23-31 [facility] Comment on above: Performed By: #### Rosario BETANCOURT CMP, LIPID ####[address] [place], [place] [address] Creatinine [Mass/Vol] 0.83 mg/dL Normal 0.55-1.02 [facility] Comment on above: Result Comment: Test ing performed on Siemens Dimension EXL analyzer using a modified kinetic Christiana technique. Performed By: #### Rosario FR CMP, LIPID ####[address] [place], [place] [address] Electrolyte Balance 6.0 mEq/L Normal 4.0-15.0 [facility] Comment on above: Performed By: #### Rosario BETANCOURT CMP, LIPID ####[address] [place], [place] [address] Globulin 3.3 G/dL Normal 1.5-3.8 [facility] Comment on above: Performed By: #### Rosario BETANCOURT CMP, LIPID ####[address] [place], [place] [address] Glucose [Mass/Vol] 106 mg/dL Normal 83-110 [facility] Comment on above: Performed By: #### Rosario BETANCOURT CMP, LIPID ####[address] [place], [place] [address] Potassium [Moles/Vol] 4.7 mmol/L Normal 3.5-5.1 [facility] Comment on above: Performed By: #### Rosario BETANCOURT, CMP, LIPID ####[address] [place], [place] [address] Sodium [Moles/Vol] 142 mmol/L Normal 136-145 [facility] Comment on above: Performed By: #### Rosario FR, CMP, LIPID ####[address] [place], [place] [address] Total Protein 7.2 G/dL Normal 6.4-8.2 [facility] Comment on above: Performed By: #### Rosario BETANCOURT, CMP, LIPID ####[address] [place], [place] [address] Urea nitrogen [Mass/Vol] 13 mg/dL Normal 7-18 [facility] Comment on above: Performed By: #### G FR, CMP, LIPID ####[address] [place], [place] [address] LIPIDon 11-10-2024 Cholesterol [Mass/Vol] 300 mg/dL High 0-200 [facility] Comment on above: Result Comment: Chol esterol Reference Interval: Less than 200 Desirable 200-239 Borderline high risk 240 and above High risk Performed By: #### G FR, CMP, LIPID ####[address] [place], [place] [address] Cholesterol in HDL [Mass/Vol] 65 mg/dL High 40-60 [facility] Comment on above: Performed By: #### G FR, CMP, LIPID ####[address] [place], [place] [address] Cholesterol in LDL [Mass/Vol] 205 mg/dL High 0-130 [facility] Comment on above: Performed By: #### G FR, CMP, LIPID ####[address] [place], [place] [address] Triglyceride [Mass/Vol] 149 mg/dL Normal 0-150 [facility] Comment on above: Result Comment: Trig lyceride Reference Interval: Less than 150 Normal 150-199 Borderline high risk 200-499 High risk 500 or higher Very high risk Performed By: #### G FR, CMP, LIPID ####[address] [place], [place] [address] Coronary Angiography CTon Coronary Angiography CT [facility] Imaging Services [address] [place] [address] 06/28/24 0811 MR#: [id number] Acct: [id number] Name: LIZ ROBLES Rep #: [id number] : 1955 69 From: Swapnil Vargas MD PCP: YEISON Vargas Status:REG CLI Y Location: CT CCTA w/Cont Coronary Arteries Date of Study:: 06/25/24 Chest pain Coronary Calcium Scoring: High-resolution Computed Tomographic imaging of the chest was performed on [06/25/2024], with particular attention paid to the coronary arteries. Intravenous contrast agent was administered per protocol and images reconstructed and displayed. LEFT MAIN CORONARY ARTERY: Arises from the left coronary cusp and bifurcates into left anterior descending artery and left circumflex artery with no significant stenosis present. [] LEFT ANTERIOR DESCENDING CORONARY ARTERY: Arises from the left main coronary artery. It courses towards the apex of the ventricle with a diagonal vessel with no significant atherosclerotic plaquing present. [] LEFT CIRCUMFLEX CORONARY ARTERY: Nondominant vessel arising from the left main coronary artery with a proximal area of eccentric nonobstructive plaquing noted the vessel continuing giving of an obtuse marginal branch. [] RIGHT CORONARY ARTERY: Large dominant vessel arising from the right coronary cusp with no significant atherosclerotic plaquing present. [] THORACIC AORTA: Mild anterior calcification CORONARY CALCIUM SCORE: Not done Conclusion: CT angiogram demonstrating minimal atherosclerotic plaquing. No significant obstruction present. [] 06/28/24812 Date Swapnil Vargas MD Cosigner Signature (if applicable): Date CC: YEISON Morataya; Dr. Swapnil Vargas MD; Dr. Sukhi Pizano MD Signed Normal [facility] CREATININE FINGERSTICKon CREATININE WB < 1.0 Normal 0.55-1.02 [facility] Comment on above: Performed By: #### L 9100.0200 #### [facility] [address] [place], [place], [id number] EGFR WB > 60.0000 Normal >60 [facility] Comment on above: Performed By: #### L 9100.0200 #### [facility] [address] [place], [place], [id number] Limited Chest CT Cardiac Onl n 06-25-[address] Cardiac Only [facility] Imaging Services [address] [place], [place] [address] Limited Chest CT Cardiac Only MR#: [id number] Acct: [id number] Name: LIZ ROBLES Rep #: [id number] : [id number] F [id number] From: Partha stern MD PCP: YEISON Vargas Status: REG CLI Study: Limited Chest CT Cardiac Only Date of Exam: Exam# [id number] Ordering [place]: [place] [id number] STUDY: CT CHEST WITH CONTRAST REASON FOR EXAM: Female, 69 years old. CHEST PAIN RADIATION DOSAGE (If Supplied By Facility): CTDIvol = ( 28.84 ) mGy, DLP = ( 1112.37 ) mGycm TECHNIQUE: Transaxial imaging was performed following intravenous administration of IV 75mL Isovue-370. Individualized dose optimization techniques were used for this CT. COMPARISON: No relevant priors. FINDINGS: CHEST The lungs are normal. There is no demonstrated pleural abnormality. There are calcifications of the coronary arteries. Normal mediastinum. Calcified right hilar lymph nodes. Normal unenhanced pulmonary arteries. There is atherosclerotic calcification of the aortic arch. There are degenerative changes of the thoracic spine. Small hiatal hernia. Fatty infiltration of the liver. CT/Limited Chest CT Cardiac Only IMPRESSION: Mild coronary artery calcification. Electronically Signed: Partha Wilkins MD at 9:09 EST , CC: YEISON Morataya; Dr. Sukhi Pizano MD Cargo Agent: Signed Normal [facility] .Auto Diffon 06-18-2024 Basophil, Absolute 0.0 10 3/mcL Normal 0.0-0.2 [facility] Comment on above: Performed By: #### G FR, CMP, TSH, ANEU, MG, VIDH, ADIFF, CBC #### [place] [address] #### B12 #### [address] [address] Basophils/100 WBC (Bld) 0.8 % Normal 0.0-2.5 [facility] Comment on above: Performed By: #### G FR, CMP, TSH, ANEU, MG, VIDH, ADIFF, CBC #### [place] [address] #### B12 #### [address] [address] Eosinophil, Absolute 0.1 10 3/mcL Normal 0.0-0.7 [facility] Comment on above: Performed By: #### G FR, CMP, TSH, ANEU, MG, VIDH, ADIFF, CBC #### [place] [address] #### B12 #### [address] [address] Eosinophils/100 WBC (Bld) 2.1 % Normal 0.0-7.0 [facility] Comment on above: Performed By: #### G FR, CMP, TSH, ANEU, MG, VIDH, ADIFF, CBC #### [place] [address] #### B12 #### [address] [address] Lymphocyte, Absolute 2.0 10 3/mcL Normal 0.9-4.3 [facility] Comment on above: Performed By: #### G FR, CMP, TSH, ANEU, MG, VIDH, ADIFF, CBC #### [place] [address] #### B12 #### [address] [address] Lymphocytes/100 WBC (Bld) 42.8 % High 20.0-40.0 [facility] Comment on above: Performed By: #### G FR, CMP, TSH, ANEU, MG, VIDH, ADIFF, CBC #### [address] [address] #### B12 #### [address] [address] Monocyte, Absolute 0.4 10 3/mcL Normal 0.1-1.4 [facility] Comment on above: Performed By: #### G FR, CMP, TSH, ANEU, MG, VIDH, ADIFF, CBC #### [address] [address] #### B12 #### [address] [address] Monocytes/100 WBC (Bld) 7.8 % Normal 2.0-13.0 [facility] Comment on above: Performed By: #### G FR, CMP, TSH, ANEU, MG, VIDH, ADIFF, CBC #### [address] [address] #### B12 #### [address] [address] Neutrophils/100 WBC (Bld) 46.5 % Low 50.0-75.0 [facility] Comment on above: Performed By: #### G FR, CMP, TSH, ANEU, MG, VIDH, ADIFF, CBC #### [address] [address] #### B12 #### [address] [address] .GFRon 06-18-2024 GFR Non- 64 ml/min/1.73sqm Normal [facility] Comment on above: Result Comment: GFR Population mean for , Non- Americans Ages 20-29 = 116 mL/min/1.73 sq.m. Ages 30-39 = 107 mL/min/1.73 sq.m. Ages 40-49 = 99 mL/min/1.73 sq.m. Ages 50-59 = 93 mL/min/1.73 sq.m. Ages 60-69 = 85 mL/min/1.73 sq.m. Ages 70+ = 75 mL/min/1.73 sq.m. Chronic Kidney Disease: Less than 60 mL/min/1.73 square meters End Stage Renal Disease: Less than 15 mL/min/1.73 square meters Performed By: #### G FR, CMP, TSH, ANEU, MG, VIDH, ADIFF, CBC #### [address] [address] #### B12 #### [address] [address] GFR 78 ml/min/1.73sqm Normal [facility] Comment on above: Result Comment: GFR Population mean for , Non- Americans Ages 20-29 = 116 mL/min/1.73 sq.m. Ages 30-39 = 107 mL/min/1.73 sq.m. Ages 40-49 = 99 mL/min/1.73 sq.m. Ages 50-59 = 93 mL/min/1.73 sq.m. Ages 60-69 = 85 mL/min/1.73 sq.m. Ages 70+ = 75 mL/min/1.73 sq.m. Chronic Kidney Disease: Less than 60 mL/min/1.73 square meters End Stage Renal Disease: Less than 15 mL/min/1.73 square meters Performed By: #### G FR, CMP, TSH, ANEU, MG, VIDH, ADIFF, CBC #### [address] [address] #### B12 #### [address] [address] .NEUABSon 06-18-2024 Neutrophil, Absolute 2.2 10 3/mcL Low 2.3-8.1 [facility] Comment on above: Performed By: #### G FR, CMP, TSH, ANEU, MG, VIDH, ADIFF, CBC #### [address] [address] #### B12 #### [address] [address] B12on 06-18-2024 Cobalamin (Vitamin B12) [Mass/Vol] 280 pg/mL Normal 211-911 [facility] Comment on above: Performed By: #### G FR, CMP, TSH, ANEU, MG, VIDH, ADIFF, CBC ####[address] [address]#### B12 ####[address] [address] CBCon 06-18-2024 Erythrocyte distribution width (RBC) [Ratio] 11.8 % Normal 11.5-15.5 [facility] Comment on above: Performed By: #### G FR, CMP, TSH, ANEU, MG, VIDH, ADIFF, CBC #### [address] [address] #### B12 #### [address] [address] Hematocrit (Bld) [Volume fraction] 43.7 % Normal 34.0-46.0 [facility] Comment on above: Performed By: #### G FR, CMP, TSH, ANEU, MG, VIDH, ADIFF, CBC #### [address] [address] #### B12 #### [address] [address] Hgb 15.0 G/dL Normal 12.0-16.0 [facility] Comment on above: Performed By: #### G FR, CMP, TSH, ANEU, MG, VIDH, ADIFF, CBC #### [place] [address] #### B12 #### [address] [address] MCH (RBC) [Entitic mass] 33.6 pg High 27.0-33.0 [facility] Comment on above: Performed By: #### G FR, CMP, TSH, ANEU, MG, VIDH, ADIFF, CBC #### [place] [address] #### B12 #### [place] [address] MCHC 34.3 G/dL Normal 32.0-36.0 [facility] Comment on above: Performed By: #### G FR, CMP, TSH, ANEU, MG, VIDH, ADIFF, CBC #### [place] [address] #### B12 #### [place] [address] MCV (RBC) [Entitic vol] 97.9 fL Normal 80.0-99.0 [facility] Comment on above: Performed By: #### G FR, CMP, TSH, ANEU, MG, VIDH, ADIFF, CBC #### [place] [address] #### B12 #### [place] [address] Platelet 211 10 3/mcL Normal 150-450 [facility] Comment on above: Performed By: #### G FR, CMP, TSH, ANEU, MG, VIDH, ADIFF, CBC #### [place] [address] #### B12 #### [place] [address] Platelet mean volume (Bld) [Entitic vol] 8.7 fL Normal 6.6-10.5 [facility] Comment on above: Performed By: #### G FR, CMP, TSH, ANEU, MG, VIDH, ADIFF, CBC #### [place] [address] #### B12 #### [place] [address] RBC 4.47 10 6/mcL Normal 4.10-5.30 [facility] Comment on above: Performed By: #### G FR, CMP, TSH, ANEU, MG, VIDH, ADIFF, CBC #### [place] [address] #### B12 #### [address] [address] WBC 4.8 10 3/mcL Normal 4.5-10.8 [facility] Comment on above: Performed By: #### G FR, CMP, TSH, ANEU, MG, VIDH, ADIFF, CBC #### [address] [address] #### B12 #### [place] [address] CMPon 06-18-2024 Albumin Level 4.1 G/dL Normal 3.4-4.8 [facility] Comment on above: Performed By: #### G FR, CMP, TSH, ANEU, MG, VIDH, ADIFF, CBC #### [place] [address] #### B12 #### [place] [address] Albumin/Globulin [Mass ratio] 1.4 {ratio} Normal 1.1-2.5 [facility] Comment on above: Performed By: #### G FR, CMP, TSH, ANEU, MG, VIDH, ADIFF, CBC #### [place] [address] #### B12 #### [address] [address] ALP [Catalytic activity/Vol] 78 U/L Normal 40-135 [facility] Comment on above: Performed By: #### G FR, CMP, TSH, ANEU, MG, VIDH, ADIFF, CBC #### [place] [address] #### B12 #### [place] [address] ALT [Catalytic activity/Vol] 52 U/L Normal 14-59 [facility] Comment on above: Performed By: #### G FR, CMP, TSH, ANEU, MG, VIDH, ADIFF, CBC #### [place] [address] #### B12 #### [place] [address] AST [Catalytic activity/Vol] 24 U/L Normal 10-40 [facility] Comment on above: Performed By: #### G FR, CMP, TSH, ANEU, MG, VIDH, ADIFF, CBC #### [place] [address] #### B12 #### [place] [address] Bili Total 0.6 mg/dL Normal 0.2-1.0 [facility] Comment on above: Result Comment: Use of this assay is not recommended for patients undergoing treatment with eltrombopag due to the potential for falsely elevated results. Performed By: #### G FR, CMP, TSH, ANEU, MG, VIDH, ADIFF, CBC #### [place] [address] #### B12 #### [place] [address] BUN/Creatinine Ratio 16 ratio Normal 7-27 [facility] Comment on above: Performed By: #### G FR, CMP, TSH, ANEU, MG, VIDH, ADIFF, CBC #### [place] [address] #### B12 #### [place] [address] Calcium [Mass/Vol] 9.8 mg/dL Normal 8.4-10.2 [facility] Comment on above: Performed By: #### G FR, CMP, TSH, ANEU, MG, VIDH, ADIFF, CBC #### [place] [address] #### B12 #### [place] [address] Chloride [Moles/Vol] 105 mmol/L Normal 98-107 [facility] Comment on above: Performed By: #### G FR, CMP, TSH, ANEU, MG, VIDH, ADIFF, CBC #### [place] [address] #### B12 #### [address] [address] CO2 [Moles/Vol] 32 mmol/L High 23-31 [facility] Comment on above: Performed By: #### G FR, CMP, TSH, ANEU, MG, VIDH, ADIFF, CBC #### [address] [address] #### B12 #### [address] [address] Creatinine [Mass/Vol] 0.87 mg/dL Normal 0.55-1.02 [facility] Comment on above: Result Comment: Test ing performed on Siemens Dimension EXL analyzer using a modified kinetic Christiana technique. Performed By: #### G FR, CMP, TSH, ANEU, MG, VIDH, ADIFF, CBC #### [address] [address] #### B12 #### [place] [address] Electrolyte Balance 4.0 mEq/L Normal 4.0-15.0 [facility] Comment on above: Performed By: #### G FR, CMP, TSH, ANEU, MG, VIDH, ADIFF, CBC #### [place] [address] #### B12 #### [address] [address] Globulin 2.9 G/dL Normal [facility] Comment on above: Performed By: #### G FR, CMP, TSH, ANEU, MG, VIDH, ADIFF, CBC #### [address] [address] #### B12 #### [address] [address] Glucose [Mass/Vol] 105 mg/dL Normal 83-110 [facility] Comment on above: Performed By: #### G FR, CMP, TSH, ANEU, MG, VIDH, ADIFF, CBC #### [address] [address] #### B12 #### [address] [address] Potassium [Moles/Vol] 4.3 mmol/L Normal 3.5-5.1 [facility] Comment on above: Performed By: #### G FR, CMP, TSH, ANEU, MG, VIDH, ADIFF, CBC #### [address] [address] #### B12 #### [place] [address] Sodium [Moles/Vol] 141 mmol/L Normal 136-145 [facility] Comment on above: Performed By: #### G FR, CMP, TSH, ANEU, MG, VIDH, ADIFF, CBC #### [place] [address] #### B12 #### [place] [address] Total Protein 7.0 G/dL Normal 6.4-8.2 [facility] Comment on above: Performed By: #### G FR, CMP, TSH, ANEU, MG, VIDH, ADIFF, CBC #### [place] [address] #### B12 #### [place] [address] Urea nitrogen [Mass/Vol] 14 mg/dL Normal 7-18 [facility] Comment on above: Performed By: #### G FR, CMP, TSH, ANEU, MG, VIDH, ADIFF, CBC #### [place] [address] #### B12 #### [address] [address] LABORATORYOrdered By: SYSTEM SYSTEM on 06-18-2024 Natriuretic peptide.B prohormone N-Terminal [Mass/Vol] 20 pg/mL Normal 0 - 125 pg/mL AO ADM SS Comment on above: Interpretive Data: N T-proBNP results of less than 300 pg/mL effectively rules out acute congestive heart failure with 99% negative predictive value. 25-hydroxyvitamin D3 [Mass/Vol] 34.7 ng/mL Invalid Interpretation Code AO ADM SS Comment on above: Interpretive Data: I nterpretive Values Based on Total 25(OH) Vitamin D: Deficient <20 ng/mL Insufficient 20 - <30 ng/mL Sufficient 30-100 ng/mL Albumin BCP dye [Mass/Vol] 4.1 G/dL Normal 3.4 - 4.8 G/dL AO ADM SS Albumin/Globulin [Mass ratio] 1.4 {ratio} Normal 1.1 - 2.5 ratio AO ADM SS ALP [Catalytic activity/Vol] 78 U/L Normal 40 - 135 U/L AO ADM SS ALT With P-5'-P [Catalytic activity/Vol] 52 U/L Normal 14 - 59 U/L AO ADM SS AST With P-5'-P [Catalytic activity/Vol] 24 U/L Normal 10 - 40 U/L AO ADM SS Basophils (Bld) [#/Vol] 0.0 103/mcL Normal 0.0 - 0.2 10^3/mcL AO Workflow SS Basophils/100 WBC (Bld) 0.8 % Normal 0.0 - 2.5 % AO Workflow SS Bilirubin [Mass/Vol] 0.6 mg/dL Normal 0.2 - 1 .0 mg/dL AO ADM SS Comment on above: Interpretive Data: U se of this assay is not recommended for patients undergoing treatment with eltrombopag due to the potential for falsely elevated results. Calcium [Mass/Vol] 9.8 mg/dL Normal 8.4 - 10. 2 mg/dL AO ADM SS Chloride [Moles/Vol] 105 mmol/L Normal 98 - 10 7 mmol/L AO ADM SS CO2 [Moles/Vol] 32 mmol/L High 23 - 31 mmol/L AO ADM SS Cobalamin (Vitamin B12) [Mass/Vol] 280 pg/mL Normal 211 - 911 pg/mL AH ADM SS Creatinine [Mass/Vol] 0.87 mg/dL Normal 0.55 - 1.02 mg/dL AO ADM SS Comment on above: Interpretive Data: T esting performed on Siemens Dimension EXL analyzer using a modified kinetic Christiana technique. Electrolyte Balance 4.0 mEq/L Normal 4.0 - 15 .0 mEq/L AO ADM SS Eosinophil, Absolute 0.1 103/mcL Normal 0.0 - 0 .7 10^3/mcL AO Workflow SS Eosinophils/100 WBC (Bld) 2.1 % Normal 0.0 - 7.0 % AO Workflow SS Erythrocyte distribution width (RBC) [Ratio] 11.8 % Normal 11.5 - 15.5 % AO Workflow SS GFR/1.73 sq M.predicted among blacks MDRD (S/P/Bld) [Vol rate/Area] 78 ml/min/1.73sqm Invalid Interpretation Code AO Chemistry S Comment on above: Interpretive Data: GFR Population mean for , Non- Americans Ages 20-29 = 116 mL/min/1.73 sq.m. Ages 30-39 = 107 mL/min/1.73 sq.m. Ages 40-49 = 99 mL/min/1.73 sq.m. Ages 50-59 = 93 mL/min/1.73 sq.m. Ages 60-69 = 85 mL/min/1.73 sq.m. Ages 70+ = 75 mL/min/1.73 sq.m. Chronic Kidney Disease: Less than 60 mL/min/1.73 square meters End Stage Renal Disease: Less than 15 mL/min/1.73 square meters GFR/1.73 sq M.predicted among non-blacks MDRD (S/P/Bld) [Vol rate/Area] 64 ml/min/1.73sqm Invalid Interpretation Code AO Chemistry S Comment on above: Interpretive Data: GFR Population mean for , Non- Americans Ages 20-29 = 116 mL/min/1.73 sq.m. Ages 30-39 = 107 mL/min/1.73 sq.m. Ages 40-49 = 99 mL/min/1.73 sq.m. Ages 50-59 = 93 mL/min/1.73 sq.m. Ages 60-69 = 85 mL/min/1.73 sq.m. Ages 70+ = 75 mL/min/1.73 sq.m. Chronic Kidney Disease: Less than 60 mL/min/1.73 square meters End Stage Renal Disease: Less than 15 mL/min/1.73 square meters Globulin 2.9 G/dL Invalid Interpretation Code AO ADM SS Glucose [Mass/Vol] 105 mg/dL Normal 83 - 110 mg/dL AO ADM SS Hematocrit (Bld) [Volume fraction] 43.7 % Normal 34.0 - 46.0 % AO Workflow SS Hemoglobin (Bld) [Mass/Vol] 15.0 G/dL Normal 12.0 - 16.0 G/dL AO Workflow SS Lymphocytes (Bld) [#/Vol] 2.0 103/mcL Normal 0.9 - 4.3 10^3/mcL AO Workflow SS Lymphocytes/100 WBC (Bld) 42.8 % High 20.0 - 40.0 % AO Workflow SS Magnesium [Mass/Vol] 2.2 mg/dL Normal 1.8 - 2 .4 mg/dL AO ADM SS MCH (RBC) [Entitic mass] 33.6 pg High 27.0 - 33.0 pg AO Workflow SS MCHC 34.3 G/dL Normal 32.0 - 36.0 G/dL AO Workflow SS MCV (RBC) [Entitic vol] 97.9 fL Normal 80.0 - 99.0 fL AO Workflow SS Monocytes (Bld) [#/Vol] 0.4 103/mcL Normal 0.1 - 1.4 10^3/mcL AO Workflow SS Monocytes/100 WBC (Bld) 7.8 % Normal 2.0 - 13.0 % AO Workflow SS Neutrophils (Bld) [#/Vol] 2.2 103/mcL Low 2.3 - 8.1 10^3/mcL AO Workflow SS Neutrophils/100 WBC (Bld) 46.5 % Low 50.0 - 75.0 % AO Workflow SS Platelet mean volume (Bld) [Entitic vol] 8.7 fL Normal 6.6 - 10.5 fL AO Workflow SS Platelets (Bld) [#/Vol] 211 103/mcL Normal 150 - 450 10^3/mcL AO Workflow SS Potassium [Moles/Vol] 4.3 mmol/L Normal 3.5 - 5.1 mmol/L AO ADM SS Protein [Mass/Vol] 7.0 G/dL Normal 6.4 - 8.2 G/dL AO ADM SS RBC (Bld) [#/Vol] 4.47 106/mcL Normal 4.10 - 5.3 0 10^6/mcL AO Workflow SS Sodium [Moles/Vol] 141 mmol/L Normal 136 - 145 mmol/L AO ADM SS TSH Qn 2.76 m[IU]/L Normal 0.36 - 3.74 mcIU/mL AO ADM SS Urea nitrogen [Mass/Vol] 14 mg/dL Normal 7 - 18 mg/dL AO ADM SS Urea nitrogen/Creatinine [Mass ratio] 16 ratio Normal 7 - 27 ratio AO ADM SS WBC (Bld) [#/Vol] 4.8 103/mcL Normal 4.5 - 10.8 10^3/mcL AO Workflow SS MGon 06-18-2024 Magnesium [Mass/Vol] 2.2 mg/dL Normal 1.8-2.4 [facility] Comment on above: Performed By: #### G FR, CMP, TSH, ANEU, MG, VIDH, ADIFF, CBC #### [place] [address] #### B12 #### [address] [address] PBNPon 06-18-2024 Natriuretic peptide B (Bld) [Mass/Vol] 20 pg/mL Normal 0-125 [facility] Comment on above: Result Comment: NT-p roBNP results of less than 300 pg/mL effectively rules out acute congestive heart failure with 99% negative predictive value. Performed By: #### P BNP ####[place] [id number] [place] [address] 06-18-2024 TSH Qn 2.76 m[IU]/L Normal 0.36-3.74 [facility] Comment on above: Performed By: #### G FR, CMP, TSH, ANEU, MG, VIDH, ADIFF, CBC #### [place] [address] #### B12 #### [place] [address] VIon 06-18-2024 Vit. D 25-Hydroxy 34.7 ng/mL Normal [facility] Comment on above: Result Comment: Inte rpretive Values Based on Total 25(OH) Vitamin D: Deficient <20 ng/mL Insufficient 20 - <30 ng/mL Sufficient 30-100 ng/mL Performed By: #### G FR, CMP, TSH, ANEU, MG, VIDH, ADIFF, CBC #### [place] [address] #### B12 #### [address] [place] [address] .GFRon 05-28-2024 GFR Non- 60 ml/min/1.73sqm Normal [facility] Comment on above: Result Comment: GFR Population mean for , Non- Americans Ages 20-29 = 116 mL/min/1.73 sq.m. Ages 30-39 = 107 mL/min/1.73 sq.m. Ages 40-49 = 99 mL/min/1.73 sq.m. Ages 50-59 = 93 mL/min/1.73 sq.m. Ages 60-69 = 85 mL/min/1.73 sq.m. Ages 70+ = 75 mL/min/1.73 sq.m. Chronic Kidney Disease: Less than 60 mL/min/1.73 square meters End Stage Renal Disease: Less than 15 mL/min/1.73 square meters Performed By: #### C [facility] ####[place] [address]#### GFR, BMP, PBNP ####[id number] [place], [place] [address] GFR 73 ml/min/1.73sqm Normal [facility] Comment on above: Result Comment: GFR Population mean for , Non- Americans Ages 20-29 = 116 mL/min/1.73 sq.m. Ages 30-39 = 107 mL/min/1.73 sq.m. Ages 40-49 = 99 mL/min/1.73 sq.m. Ages 50-59 = 93 mL/min/1.73 sq.m. Ages 60-69 = 85 mL/min/1.73 sq.m. Ages 70+ = 75 mL/min/1.73 sq.m. Chronic Kidney Disease: Less than 60 mL/min/1.73 square meters End Stage Renal Disease: Less than 15 mL/min/1.73 square meters Performed By: #### C RP ####[place] [address]#### GFR, BMP, PBNP ####[id number] [place], [place] [address] BMPon 05-28-2024 BUN/Creatinine Ratio 17 ratio Normal 7- [facility] Comment on above: Performed By: #### C RPHS ####[place] [address]#### GFR, BMP, PBNP ####[place] [id number] [place] [id number] Calcium [Mass/Vol] 9.8 mg/dL Normal 8.4-10.2 [facility] Comment on above: Performed By: #### C RPHS ####[place] [address]#### GFR, BMP, PBNP ####[place] [id number] [place] [address] Chloride [Moles/Vol] 103 mmol/L Normal 98-107 [facility] Comment on above: Performed By: #### C RPHS ####[place] [address]#### GFR, BMP, PBNP ####[place] [address] CO2 [Moles/Vol] 30 mmol/L Normal 23-31 [facility] Comment on above: Performed By: #### C RPHS ####[place] [address]#### GFR, BMP, PBNP ####[place] [id number] Creatinine [Mass/Vol] 0.92 mg/dL Normal 0.55-1.02 [facility] Comment on above: Result Comment: Test ing performed on Siemens Dimension EXL analyzer using a modified kinetic Christiana technique. Performed By: #### C RPHS ####[place] [address]#### GFR, BMP, PBNP ####[place] [address] Electrolyte Balance 7.0 mEq/L Normal 4.0-15.0 [facility] Comment on above: Performed By: #### C RPHS ####[place] [address]#### GFR, BMP, PBNP ####[address] [address] Glucose [Mass/Vol] 115 mg/dL High 83-110 [facility] Comment on above: Performed By: #### C RPHS ####[place] [address]#### GFR, BMP, PBNP ####[address] [address] Potassium [Moles/Vol] 4.7 mmol/L Normal 3.5-5.1 [facility] Comment on above: Performed By: #### C RPHS ####[place] [address]#### GFR, BMP, PBNP ####[place] [address] Sodium [Moles/Vol] 140 mmol/L Normal 136-145 [facility] Comment on above: Performed By: #### C RPHS ####[place] [address]#### GFR, BMP, PBNP ####[place] [address] Urea nitrogen [Mass/Vol] 16 mg/dL Normal 7-18 [facility] Comment on above: Performed By: #### C RPHS ####[place] [address]#### GFR, BMP, PBNP ####[place] [id number] CRPHSon 05-28-2024 CRP, High Sensitive 0.81 mg/L Normal 0.20-3.00 [facility] Comment on above: Result Comment: Rela tive Risk Category and Average hs-CRP Level: Higher Risk: > 5.0 mg/L Guidelines support that hs-CRP can be used as an independent predictor of increased coronary risk; however, hs-CRP results should only be interpreted in conjunction with other cardiac risk factors in establishing overall cardiac risk for a given patient. Performed By: #### C RPHS ####[facility] [place] [id number]#### GFR, BMP, PBNP ####[address] [place], [place] [address] LABORATORYOrdered By: SYSTEM SYSTEM on 05-28-2024 Calcium [Mass/Vol] 9.8 mg/dL Normal 8.4 - 10. 2 mg/dL AO ADM SS Chloride [Moles/Vol] 103 mmol/L Normal 98 - 10 7 mmol/L AO ADM SS CO2 [Moles/Vol] 30 mmol/L Normal 23 - 31 mmol/L AO ADM SS Creatinine [Mass/Vol] 0.92 mg/dL Normal 0.55 - 1.02 mg/dL AO ADM SS Comment on above: Interpretive Data: T esting performed on Siemens Dimension EXL analyzer using a modified kinetic Christiana technique. CRP High sensitivity method [Mass/Vol] 0.81 mg/L Normal 0.20 - 3.00 mg/L AH ADM SS Comment on above: Interpretive Data: R elative Risk Category and Average hs-CRP Level: Higher Risk: > 5.0 mg/L Guidelines support that hs-CRP can be used as an independent predictor of increased coronary risk; however, hs-CRP results should only be interpreted in conjunction with other cardiac risk factors in establishing overall cardiac risk for a given patient. Electrolyte Balance 7.0 mEq/L Normal 4.0 - 15 .0 mEq/L AO ADM SS GFR/1.73 sq M.predicted among blacks MDRD (S/P/Bld) [Vol rate/Area] 73 ml/min/1.73sqm Invalid Interpretation Code AO Chemistry S Comment on above: Interpretive Data: GFR Population mean for , Non- Americans Ages 20-29 = 116 mL/min/1.73 sq.m. Ages 30-39 = 107 mL/min/1.73 sq.m. Ages 40-49 = 99 mL/min/1.73 sq.m. Ages 50-59 = 93 mL/min/1.73 sq.m. Ages 60-69 = 85 mL/min/1.73 sq.m. Ages 70+ = 75 mL/min/1.73 sq.m. Chronic Kidney Disease: Less than 60 mL/min/1.73 square meters End Stage Renal Disease: Less than 15 mL/min/1.73 square meters GFR/1.73 sq M.predicted among non-blacks MDRD (S/P/Bld) [Vol rate/Area] 60 ml/min/1.73sqm Invalid Interpretation Code AO Chemistry S Comment on above: Interpretive Data: GFR Population mean for , Non- Americans Ages 20-29 = 116 mL/min/1.73 sq.m. Ages 30-39 = 107 mL/min/1.73 sq.m. Ages 40-49 = 99 mL/min/1.73 sq.m. Ages 50-59 = 93 mL/min/1.73 sq.m. Ages 60-69 = 85 mL/min/1.73 sq.m. Ages 70+ = 75 mL/min/1.73 sq.m. Chronic Kidney Disease: Less than 60 mL/min/1.73 square meters End Stage Renal Disease: Less than 15 mL/min/1.73 square meters Glucose [Mass/Vol] 115 mg/dL High 83 - 110 mg/dL AO ADM SS Natriuretic peptide.B prohormone N-Terminal [Mass/Vol] 21 pg/mL Normal 0 - 125 pg/mL AO ADM SS Comment on above: Interpretive Data: N T-proBNP results of less than 300 pg/mL effectively rules out acute congestive heart failure with 99% negative predictive value. Potassium [Moles/Vol] 4.7 mmol/L Normal 3.5 - 5.1 mmol/L AO ADM SS Sodium [Moles/Vol] 140 mmol/L Normal 136 - 145 mmol/L AO ADM SS Urea nitrogen [Mass/Vol] 16 mg/dL Normal 7 - 18 mg/dL AO ADM SS Urea nitrogen/Creatinine [Mass ratio] 17 ratio Normal 7 - 27 ratio AO ADM SS PBNPon 05-28-2024 Natriuretic peptide B (Bld) [Mass/Vol] 21 pg/mL Normal 0-125 [facility] Comment on above: Result Comment: NT-p roBNP results of less than 300 pg/mL effectively rules out acute congestive heart failure with 99% negative predictive value. Performed By: #### C RPHS ####[address] [address]#### GFR, BMP, PBNP ####[address] [address] .Auto Diffon 11-05-2023 Basophil, Absolute 0.0 10 3/mcL Normal 0.0-0.2 [facility] ([place]) Comment on above: Performed By: #### T SH, CBC, GFR, LIPID, FT4, CMP, ADIFF, ANEU #### [place] [address] #### E2, FSH #### [address] [address] Basophils/100 WBC (Bld) 0.7 % Normal 0.0-2.5 [facility] ([place]) Comment on above: Performed By: #### T SH, CBC, GFR, LIPID, FT4, CMP, ADIFF, ANEU #### [place] [address] #### E2, FSH #### [address] [address] Eosinophil, Absolute 0.2 10 3/mcL Normal 0.0-0.4 [facility] ([place]) Comment on above: Performed By: #### T SH, CBC, GFR, LIPID, FT4, CMP, ADIFF, ANEU #### [place] [address] #### E2, FSH #### [address] [address] Eosinophils/100 WBC (Bld) 4.0 % Normal 0.0-7.0 [facility] ([place]) Comment on above: Performed By: #### T SH, CBC, GFR, LIPID, FT4, CMP, ADIFF, ANEU #### [place] [address] #### E2, FSH #### [address] [address] Lymphocyte, Absolute 2.3 10 3/mcL Normal 0.8-3.9 [facility] ([place]) Comment on above: Performed By: #### T SH, CBC, GFR, LIPID, FT4, CMP, ADIFF, ANEU #### [place] [address] #### E2, FSH #### [address] [address] Lymphocytes/100 WBC (Bld) 42.2 % Normal 10.0-50.0 [facility] ([place]) Comment on above: Performed By: #### T SH, CBC, GFR, LIPID, FT4, CMP, ADIFF, ANEU #### [address] [address] #### E2, FSH #### [address] [address] Monocyte, Absolute 0.5 10 3/mcL Normal 0.2-1.0 [facility] ([place]) Comment on above: Performed By: #### T SH, CBC, GFR, LIPID, FT4, CMP, ADIFF, ANEU #### [address] [address] #### E2, FSH #### [address] [address] Monocytes/100 WBC (Bld) 9.3 % Normal 1.7-13.0 [facility] ([place]) Comment on above: Performed By: #### T SH, CBC, GFR, LIPID, FT4, CMP, ADIFF, ANEU #### [address] [address] #### E2, FSH #### [address] [address] Neutrophils/100 WBC (Bld) 43.8 % Normal 37.0-80.0 [facility] ([place]) Comment on above: Performed By: #### T SH, CBC, GFR, LIPID, FT4, CMP, ADIFF, ANEU #### [address] [address] #### E2, FSH #### [address] [address] .GFRon 11-05-2023 GFR Non- 68 ml/min/1.73sqm Normal [facility] ([place]) Comment on above: Result Comment: GFR Population mean for , Non- Americans Ages 20-29 = 116 mL/min/1.73 sq.m. Ages 30-39 = 107 mL/min/1.73 sq.m. Ages 40-49 = 99 mL/min/1.73 sq.m. Ages 50-59 = 93 mL/min/1.73 sq.m. Ages 60-69 = 85 mL/min/1.73 sq.m. Ages 70+ = 75 mL/min/1.73 sq.m. Chronic Kidney Disease: Less than 60 mL/min/1.73 square meters End Stage Renal Disease: Less than 15 mL/min/1.73 square meters Performed By: #### T SH, CBC, GFR, LIPID, FT4, CMP, ADIFF, ANEU #### [address] [address] #### E2, FSH #### [address] [address] GFR 83 ml/min/1.73sqm Normal [facility] ([place]) Comment on above: Result Comment: GFR Population mean for , Non- Americans Ages 20-29 = 116 mL/min/1.73 sq.m. Ages 30-39 = 107 mL/min/1.73 sq.m. Ages 40-49 = 99 mL/min/1.73 sq.m. Ages 50-59 = 93 mL/min/1.73 sq.m. Ages 60-69 = 85 mL/min/1.73 sq.m. Ages 70+ = 75 mL/min/1.73 sq.m. Chronic Kidney Disease: Less than 60 mL/min/1.73 square meters End Stage Renal Disease: Less than 15 mL/min/1.73 square meters Performed By: #### T SH, CBC, GFR, LIPID, FT4, CMP, ADIFF, ANEU #### [address] [address] #### E2, FSH #### [address] [address] .NEUABSon 11-05-2023 Neutrophil, Absolute 2.4 10 3/mcL Low 2.9-6.2 [facility] ([place]) Comment on above: Performed By: #### T SH, CBC, GFR, LIPID, FT4, CMP, ADIFF, ANEU #### [place] [address] #### E2, FSH #### [place] [id number] CBCon 11-05-2023 Erythrocyte distribution width (RBC) [Ratio] 12.1 % Normal 11.5-14.5 [facility] ([place]) Comment on above: Performed By: #### T SH, CBC, GFR, LIPID, FT4, CMP, ADIFF, ANEU #### [place] [address] #### E2, FSH #### [place] [address] Hematocrit (Bld) [Volume fraction] 43.9 % Normal 37.0-47.0 [facility] ([place]) Comment on above: Performed By: #### T SH, CBC, GFR, LIPID, FT4, CMP, ADIFF, ANEU #### [place] [address] #### E2, FSH #### [place] [address] Hgb 15.4 G/dL Normal 12.0-16.0 [facility] ([place]) Comment on above: Performed By: #### T SH, CBC, GFR, LIPID, FT4, CMP, ADIFF, ANEU #### [place] [address] #### E2, FSH #### [place] [address] MCH (RBC) [Entitic mass] 33.3 pg High 27.0-31.2 [facility] ([place]) Comment on above: Performed By: #### T SH, CBC, GFR, LIPID, FT4, CMP, ADIFF, ANEU #### [place] [address] #### E2, FSH #### [place] [address] MCHC 35.0 G/dL Normal 33.0-37.0 [facility] ([place]) Comment on above: Performed By: #### T SH, CBC, GFR, LIPID, FT4, CMP, ADIFF, ANEU #### [place] [address] #### E2, FSH #### [address] [address] MCV (RBC) [Entitic vol] 95.0 fL High 80.0-94.0 [facility] ([place]) Comment on above: Performed By: #### T SH, CBC, GFR, LIPID, FT4, CMP, ADIFF, ANEU #### [place] [address] #### E2, FSH #### [place] [address] Platelet 241 10 3/mcL Normal 130-400 [facility] ([place]) Comment on above: Performed By: #### T SH, CBC, GFR, LIPID, FT4, CMP, ADIFF, ANEU #### [place] [address] #### E2, FSH #### [place] [address] Platelet mean volume (Bld) [Entitic vol] 8.1 fL Normal 7.4-10.4 [facility] ([place]) Comment on above: Performed By: #### T SH, CBC, GFR, LIPID, FT4, CMP, ADIFF, ANEU #### [place] [address] #### E2, FSH #### [place] [address] RBC 4.62 10 6/mcL Normal 4.20-5.40 [facility] ([place]) Comment on above: Performed By: #### T SH, CBC, GFR, LIPID, FT4, CMP, ADIFF, ANEU #### [place] [address] #### E2, FSH #### [place] [address] WBC 5.5 10 3/mcL Normal 4.6-10.8 [facility] ([place]) Comment on above: Performed By: #### T SH, CBC, GFR, LIPID, FT4, CMP, ADIFF, ANEU #### [address] [address] #### E2, FSH #### [address] [address] CMPon 11-05-2023 Albumin Level 3.7 G/dL Normal 3.4-4.8 [facility] ([place]) Comment on above: Performed By: #### T SH, CBC, GFR, LIPID, FT4, CMP, ADIFF, ANEU #### [place] [address] #### E2, FSH #### [place] [address] Albumin/Globulin [Mass ratio] 1.1 {ratio} Normal 1.1-2.5 [facility] ([place]) Comment on above: Performed By: #### T SH, CBC, GFR, LIPID, FT4, CMP, ADIFF, ANEU #### [address] [address] #### E2, FSH #### [address] [address] ALP [Catalytic activity/Vol] 77 U/L Normal 40-135 [facility] ([place]) Comment on above: Performed By: #### T SH, CBC, GFR, LIPID, FT4, CMP, ADIFF, ANEU #### [place] [address] #### E2, FSH #### [address] [address] ALT [Catalytic activity/Vol] 42 U/L Normal 14-59 [facility] ([place]) Comment on above: Performed By: #### T SH, CBC, GFR, LIPID, FT4, CMP, ADIFF, ANEU #### [address] [address] #### E2, FSH #### [place] [id number] AST [Catalytic activity/Vol] 21 U/L Normal 10-40 [facility] ([place]) Comment on above: Performed By: #### T SH, CBC, GFR, LIPID, FT4, CMP, ADIFF, ANEU #### [place] [address] #### E2, FSH #### [place] [address] Bili Total 0.7 mg/dL Normal 0.2-1.0 [facility] ([place]) Comment on above: Result Comment: Use of this assay is not recommended for patients undergoing treatment with eltrombopag due to the potential for falsely elevated results. Performed By: #### T SH, CBC, GFR, LIPID, FT4, CMP, ADIFF, ANEU #### [place] [address] #### E2, FSH #### [place] [address] BUN/Creatinine Ratio 24 ratio Normal 7-27 [facility] ([place]) Comment on above: Performed By: #### T SH, CBC, GFR, LIPID, FT4, CMP, ADIFF, ANEU #### [place] [address] #### E2, FSH #### [place] [address] Calcium [Mass/Vol] 9.7 mg/dL Normal 8.4-10.2 [facility] ([place]) Comment on above: Performed By: #### T SH, CBC, GFR, LIPID, FT4, CMP, ADIFF, ANEU #### [place] [address] #### E2, FSH #### [place] [address] Chloride [Moles/Vol] 105 mmol/L Normal 98-107 [facility] ([place]) Comment on above: Performed By: #### T SH, CBC, GFR, LIPID, FT4, CMP, ADIFF, ANEU #### [place] [address] #### E2, FSH #### [address] [address] CO2 [Moles/Vol] 30 mmol/L Normal 23-31 [facility] ([place]) Comment on above: Performed By: #### T SH, CBC, GFR, LIPID, FT4, CMP, ADIFF, ANEU #### [place] [address] #### E2, FSH #### [address] [address] Creatinine [Mass/Vol] 0.83 mg/dL Normal 0.55-1.02 [facility] ([place]) Comment on above: Performed By: #### T SH, CBC, GFR, LIPID, FT4, CMP, ADIFF, ANEU #### [place] [address] #### E2, FSH #### [place] [address] Electrolyte Balance 10.0 mEq/L Normal 4.0-15.0 [facility] ([place]) Comment on above: Performed By: #### T SH, CBC, GFR, LIPID, FT4, CMP, ADIFF, ANEU #### [place] [address] #### E2, FSH #### [place] [address] Globulin 3.4 G/dL Normal [facility] ([place]) Comment on above: Performed By: #### T SH, CBC, GFR, LIPID, FT4, CMP, ADIFF, ANEU #### [place] [address] #### E2, FSH #### [place] [id number] Glucose [Mass/Vol] 107 mg/dL Normal 80-115 [facility] ([place]) Comment on above: Performed By: #### T SH, CBC, GFR, LIPID, FT4, CMP, ADIFF, ANEU #### [place] [address] #### E2, FSH #### [address] [address] Potassium [Moles/Vol] 4.8 mmol/L Normal 3.5-5.1 [facility] ([place]) Comment on above: Performed By: #### T SH, CBC, GFR, LIPID, FT4, CMP, ADIFF, ANEU #### [address] [address] #### E2, FSH #### [address] [address] Sodium [Moles/Vol] 145 mmol/L Normal 136-145 [facility] ([place]) Comment on above: Performed By: #### T SH, CBC, GFR, LIPID, FT4, CMP, ADIFF, ANEU #### [address] [address] #### E2, FSH #### [place] [address] Total Protein 7.1 G/dL Normal 6.4-8.2 [facility] ([place]) Comment on above: Performed By: #### T SH, CBC, GFR, LIPID, FT4, CMP, ADIFF, ANEU #### [address] [address] #### E2, FSH #### [address] [address] Urea nitrogen [Mass/Vol] 20 mg/dL High -18 [facility] ([place]) Comment on above: Performed By: #### T SH, CBC, GFR, LIPID, FT4, CMP, ADIFF, ANEU #### [address] [address] #### E2, FSH #### [place] [id number] E2on 11-05-2023 Estradiol Level <11.80 Normal [facility] ([place]) Comment on above: Result Comment: No te - New Reference Range in effect 20 Adult Female E2 Reference Ranges: Follicular phase 19.5 - 144.2 pg/mL Midcycle 63.9 - 356.7 pg/mL Luteal phase 55.8 - 214.2 pg/mL Post menopausal 0 - 33.2 pg/mL Performed By: #### T SH, CBC, GFR, LIPID, FT4, CMP, ADIFF, ANEU #### [place] [id number] #### E2, FSH #### [place] [address] FSHon 11-05-2023 FSH 64.9 mIU/mL Normal [facility] ([place]) Comment on above: Result Comment: Adul t Female FSH Reference Ranges (07/04/99): Follicular phase 2.5 - 10.2 mIU/mL Midcycle phase 3.4 - 33.4 mIU/mL Luteal phase 1.5 - 9.1 mIU/mL Post menopausal 23.0 -116.3 mIU/mL Adult Male: 1.4 - 18.1 mIU/mL Performed By: #### T SH, CBC, GFR, LIPID, FT4, CMP, ADIFF, ANEU #### [place] [address] #### E2, FSH #### [place] [address] FT4on 11-05-2023 Free T4 [Mass/Vol] 0.92 ng/dL Normal 0.76-1.46 [facility] ([place]) Comment on above: Performed By: #### T SH, CBC, GFR, LIPID, FT4, CMP, ADIFF, ANEU #### [place] [address] #### E2, FSH #### [place] [address] LABORATORYOrdered By: SYSTEM SYSTEM on 11-05-2023 Albumin BCP dye [Mass/Vol] 3.7 G/dL Normal 3.4 - 4.8 G/dL AO ADM SS Albumin/Globulin [Mass ratio] 1.1 {ratio} Normal 1.1 - 2.5 ratio AO ADM SS ALP [Catalytic activity/Vol] 77 U/L Normal 40 - 135 U/L AO ADM SS ALT With P-5'-P [Catalytic activity/Vol] 42 U/L Normal 14 - 59 U/L AO ADM SS AST With P-5'-P [Catalytic activity/Vol] 21 U/L Normal 10 - 40 U/L AO ADM SS Basophil, Absolute 0.0 103/mcL Normal 0.0 - 0.2 10^3/mcL AO Workflow SS Basophils/100 WBC (Bld) 0.7 % Normal 0.0 - 2.5 % AO Workflow SS Bilirubin [Mass/Vol] 0.7 mg/dL Normal 0.2 - 1 .0 mg/dL AO ADM SS Comment on above: Interpretive Data: U se of this assay is not recommended for patients undergoing treatment with eltrombopag due to the potential for falsely elevated results. Calcium [Mass/Vol] 9.7 mg/dL Normal 8.4 - 10. 2 mg/dL AO ADM SS Chloride [Moles/Vol] 105 mmol/L Normal 98 - 10 7 mmol/L AO ADM SS CO2 [Moles/Vol] 30 mmol/L Normal 23 - 31 mmol/L AO ADM SS Creatinine [Mass/Vol] 0.83 mg/dL Normal 0.55 - 1.02 mg/dL AO ADM SS E2 [Mass/Vol] pg/mL Invalid Interpretation Code ADM SS Comment on above: Interpretive Data: * *Note - New Reference Range in effect 20 Adult Female E2 Reference Ranges: Follicular phase 19.5 - 144.2 pg/mL Midcycle 63.9 - 356.7 pg/mL Luteal phase 55.8 - 214.2 pg/mL Post menopausal 0 - 33.2 pg/mL Electrolyte Balance 10.0 mEq/L Normal 4.0 - 15 .0 mEq/L AO ADM SS Eosinophil, Absolute 0.2 103/mcL Normal 0.0 - 0 .4 10^3/mcL AO Workflow SS Eosinophils/100 WBC (Bld) 4.0 % Normal 0.0 - 7.0 % AO Workflow SS Erythrocyte distribution width (RBC) [Ratio] 12.1 % Normal 11.5 - 14.5 % AO Workflow SS Follitropin Qn 64.9 m[IU]/mL Invalid Interpretation Code ADM SS Comment on above: Interpretive Data: A dult Female FSH Reference Ranges (07/04/99): Follicular phase 2.5 - 10.2 mIU/mL Midcycle phase 3.4 - 33.4 mIU/mL Luteal phase 1.5 - 9.1 mIU/mL Post menopausal 23.0 -116.3 mIU/mL Adult Male: 1.4 - 18.1 mIU/mL Free T4 [Mass/Vol] 0.92 ng/dL Normal 0.76 - 1. 46 ng/dL AO ADM SS GFR/1.73 sq M.predicted among blacks MDRD (S/P/Bld) [Vol rate/Area] 83 ml/min/1.73sqm Invalid Interpretation Code AO Chemistry S Comment on above: Interpretive Data: GFR Population mean for , Non- Americans Ages 20-29 = 116 mL/min/1.73 sq.m. Ages 30-39 = 107 mL/min/1.73 sq.m. Ages 40-49 = 99 mL/min/1.73 sq.m. Ages 50-59 = 93 mL/min/1.73 sq.m. Ages 60-69 = 85 mL/min/1.73 sq.m. Ages 70+ = 75 mL/min/1.73 sq.m. Chronic Kidney Disease: Less than 60 mL/min/1.73 square meters End Stage Renal Disease: Less than 15 mL/min/1.73 square meters GFR/1.73 sq M.predicted among non-blacks MDRD (S/P/Bld) [Vol rate/Area] 68 ml/min/1.73sqm Invalid Interpretation Code AO Chemistry S Comment on above: Interpretive Data: GFR Population mean for , Non- Americans Ages 20-29 = 116 mL/min/1.73 sq.m. Ages 30-39 = 107 mL/min/1.73 sq.m. Ages 40-49 = 99 mL/min/1.73 sq.m. Ages 50-59 = 93 mL/min/1.73 sq.m. Ages 60-69 = 85 mL/min/1.73 sq.m. Ages 70+ = 75 mL/min/1.73 sq.m. Chronic Kidney Disease: Less than 60 mL/min/1.73 square meters End Stage Renal Disease: Less than 15 mL/min/1.73 square meters Globulin 3.4 G/dL Invalid Interpretation Code AO ADM SS Glucose [Mass/Vol] 107 mg/dL Normal 80 - 115 mg/dL AO ADM SS Hematocrit (Bld) [Volume fraction] 43.9 % Normal 37.0 - 47.0 % AO Workflow SS Hemoglobin (Bld) [Mass/Vol] 15.4 G/dL Normal 12.0 - 16.0 G/dL AO Workflow SS Lymphocyte, Absolute 2.3 103/mcL Normal 0.8 - 3 .9 10^3/mcL AO Workflow SS Lymphocytes/100 WBC (Bld) 42.2 % Normal 10.0 - 50.0 % AO Workflow SS MCH (RBC) [Entitic mass] 33.3 pg High 27.0 - 31.2 pg AO Workflow SS MCHC 35.0 G/dL Normal 33.0 - 37.0 G/dL AO Workflow SS MCV (RBC) [Entitic vol] 95.0 fL High 80.0 - 94.0 fL AO Workflow SS Monocyte, Absolute 0.5 103/mcL Normal 0.2 - 1.0 10^3/mcL AO Workflow SS Monocytes/100 WBC (Bld) 9.3 % Normal 1.7 - 13.0 % AO Workflow SS Neutrophil, Absolute 2.4 103/mcL Low 2.9 - 6 .2 10^3/mcL AO Workflow SS Neutrophils/100 WBC (Bld) 43.8 % Normal 37.0 - 80.0 % AO Workflow SS Platelet mean volume (Bld) [Entitic vol] 8.1 fL Normal 7.4 - 10.4 fL AO Workflow SS Platelets (Bld) [#/Vol] 241 103/mcL Normal 130 - 400 10^3/mcL AO Workflow SS Potassium [Moles/Vol] 4.8 mmol/L Normal 3.5 - 5.1 mmol/L AO ADM SS Protein [Mass/Vol] 7.1 G/dL Normal 6.4 - 8.2 G/dL AO ADM SS RBC (Bld) [#/Vol] 4.62 106/mcL Normal 4.20 - 5.4 0 10^6/mcL AO Workflow SS Sodium [Moles/Vol] 145 mmol/L Normal 136 - 145 mmol/L AO ADM SS TSH Qn 3.01 m[IU]/L Normal 0.36 - 3.74 mcIU/mL AO ADM SS Urea nitrogen [Mass/Vol] 20 mg/dL High 7 - 18 mg/dL AO ADM SS Urea nitrogen/Creatinine [Mass ratio] 24 ratio Normal 7 - 27 ratio AO ADM SS WBC (Bld) [#/Vol] 5.5 103/mcL Normal 4.6 - 10.8 10^3/mcL AO Workflow SS LABORATORYOrdered By: Char Cowan on 11-05-2023 Cholesterol [Mass/Vol] 291 mg/dL High 0 - 200 mg/dL AO ADM SS Comment on above: Interpretive Data: C holesterol Reference Interval: Less than 200 Desirable 200-239 Borderline high risk 240 and above High risk Cholesterol in HDL [Mass/Vol] 52 mg/dL Normal 40 - 60 mg/dL AO ADM SS Cholesterol in LDL [Mass/Vol] 202 mg/dL High 0 - 130 mg/dL AO ADM SS Triglyceride [Mass/Vol] 184 mg/dL High 0 - 150 mg/dL AO ADM SS Comment on above: Interpretive Data: T riglyceride Reference Interval: Less than 150 Normal 150-199 Borderline high risk 200-499 High risk 500 or higher Very high risk LIPIDon 11-05-2023 Cholesterol [Mass/Vol] 291 mg/dL High 0-200 [facility] ([place]) Comment on above: Result Comment: Chol esterol Reference Interval: Less than 200 Desirable 200-239 Borderline high risk 240 and above High risk Performed By: #### T SH, CBC, GFR, LIPID, FT4, CMP, ADIFF, ANEU #### [address] [address] #### E2, FSH #### [address] [address] Cholesterol in HDL [Mass/Vol] 52 mg/dL Normal 40-60 [facility] ([place]) Comment on above: Performed By: #### T SH, CBC, GFR, LIPID, FT4, CMP, ADIFF, ANEU #### [address] [address] #### E2, FSH #### [address] [address] Cholesterol in LDL [Mass/Vol] 202 mg/dL High 0-130 [facility] ([place]) Comment on above: Performed By: #### T SH, CBC, GFR, LIPID, FT4, CMP, ADIFF, ANEU #### [address] [address] #### E2, FSH #### [address] [address] Triglyceride [Mass/Vol] 184 mg/dL High 0-150 [facility] ([place]) Comment on above: Result Comment: Trig lyceride Reference Interval: Less than 150 Normal 150-199 Borderline high risk 200-499 High risk 500 or higher Very high risk Performed By: #### T SH, CBC, GFR, LIPID, FT4, CMP, ADIFF, ANEU #### [address] [address] #### E2, FSH #### [place] [id number] TSHon 11-05-2023 TSH Qn 3.01 m[IU]/L Normal 0.36-3.74 [facility] ([place]) Comment on above: Performed By: #### T SH, CBC, GFR, LIPID, FT4, CMP, ADIFF, ANEU #### [address] [address] #### E2, FSH #### [address] [address] XR SPINE LUMBAR W/OBLIQUES 4 VIEWSon 06-12-2023 XR SPINE LUMBAR W/OBLIQUES 4 VIEWS ORIGINAL EXAMINATION: 5 XRAY VIEWS OF THE LUMBAR SPINE 06/09/2023 10:01 am COMPARISON: None. HISTORY: ORDERING SYSTEM PROVIDED HISTORY: Reason for Exam: Vertibrogenic low back pain FINDINGS: There are 5 lumbar vertebrae. The lumbar spine alignment is normal. Vertebral bodies are normal in height with no fracture. The intervertebral disc spaces are maintained. Facet joints at L5-S1 show moderate narrowing and endplate sclerosis. There is no spondylolysis. The sacroiliac joints are normal. IMPRESSION: Mild degenerative facet joint disease at the lumbosacral junction No subluxation or fracture. Interpreted by: Dwayne Lundy MD Preliminary Report By: Dwayne Lundy MD Electronically signed By Dwayne Lundy MD Dictated Date: 06/12/2023 8:29:52 AM Prelim Date: 06/12/2023 8:32:32 AM Sign Date: 06/12/2023 8:32:32 AM Ordering Provider: TIMUR MINA Normal [facility] ([place]) LABORATORYOrdered By: SYSTEM SYSTEM on 12-02-2022 25-hydroxyvitamin D3 [Mass/Vol] 43.3 ng/mL Invalid Interpretation Code AO ADM SS VIDHon 12-02-2022 Vit. D 25-Hydroxy 43.3 ng/mL Normal [facility] ([place]) Comment on above: Result Comment: Inte rpretive Values Based on Total 25(OH) Vitamin D: Deficient <20 ng/mL Insufficient 20 - <30 ng/mL Sufficient 30-100 ng/mL Performed By: #### T SH, CBC, GFR, LIPID, FT4, CMP, ADIFF, ANEU #### [address] [address] #### E2, FSH #### [address] [address] [place] MAMMOGRAM SCREENING BILAT ERAL W/TOMOon 11-08-2022 MA MAMMOGRAM SCREENING BILATERAL W/FABRIZIO ORIGINAL FROM: [address] [address] PROCEDURE FOR: LIZ ROBLES [address] [place] [address] [place] [address] Home: PID#: [id number] Exam#: [id number] : 1955 Age: 67 TO: BABITA MORATAYA [employer]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 2D standard and 3D tomosynthesis combination imaging performed through both breasts in the MLO and CC projection. Computer aided detection was utilized in the interpretation of this exam. COMPARISON: 07/18/2020, 04/21/2018 HISTORY: Breast cancer screening. FINDINGS: BREAST DENSITY: Heterogeneously dense There is a benign calcification in the right breast. There are no significant masses or calcifications. IMPRESSION: No mammographic evidence of malignancy. Continued screening with annual mammograms is recommended. BIRADS: MAMMOGRAM BI-RADS: 2: Benign finding RECALL: 1 year screening RECALL TYPE: mammo LETTER SENT: Normal BI-RADS 1 and 2 Interpreted by: Richar Anderson MD Preliminary Report By: Richar Anderson MD Electronically signed By Richar Anderson MD Dictated Date: 11/07/2022 11:12:09 PM Prelim Date: 11/07/2022 11:16:26 PM Sign Date: 11/07/2022 11:16:26 PM Ordering Provider: BABITA MORATAYA [employer]: JERRI MACIAS RT (R) (M) (CT) letter sent: Normal BI-RADS 1 and 2 Mammogram BI-RADS: 2 Benign Normal [facility] ([place]) BD BONE DENSITY DEXA AXIAL S [facility] 11-06-2022 BD BONE DENSITY DEXA AXIAL [employer] ORIGINAL EXAMINATION: BONE DENSITOMETRY 11/06/2022 11:29 am TECHNIQUE: A bone density dual x-ray absorptiometry (DEXA) scan was performed of the lumbar spine and left hip. COMPARISON: None. HISTORY: ORDERING SYSTEM PROVIDED HISTORY: Reason for Exam: Osteoporosis Screening FINDINGS: T Score Left Femoral Neck: -1.7 Left Femoral Neck: 0.661 (g/cm2) T Score Left Hip: -0.4 Left Hip: 0.897 (g/cm2) T Score Lumbar Spine: -3.6 Lumbar Spine: 0.651 (g/cmd2) IMPRESSION: Osteoporosis by WHO criteria. *By the World Health Organization criteria: (Comparing with young normal sex matched population) - Normal: T-score at or above -1 SD (standard deviation) - Osteopenia: T-score between -1 and -2.5 SD - Osteoporosis: T-score at or below -2.5 SD Interpreted by: Richar Govea DO Preliminary Report By: Richar Govea DO Electronically signed By Richar Govea DO Dictated Date: 11/06/2022 1:38:03 PM Prelim Date: 11/06/2022 1:38:35 PM Sign Date: 11/06/2022 1:38:35 PM Ordering Provider: BABITA Dunn [facility] ([place]) LABORATORYOrdered By: SYSTEM SYSTEM on 10-10-2022 Albumin BCP dye [Mass/Vol] 4.0 G/dL Invalid Interpretation Code 3.4 - 4.8 G/dL AO ADM SS Albumin/Globulin [Mass ratio] 1.3 {ratio} Invalid Interpretation Code 1.1 - 2.5 ratio AO ADM SS ALP [Catalytic activity/Vol] 84 U/L Invalid Interpretation Code 40 - 135 U/L AO ADM SS ALT With P-5'-P [Catalytic activity/Vol] 42 U/L Invalid Interpretation Code 14 - 59 U/L AO ADM SS AST With P-5'-P [Catalytic activity/Vol] 23 U/L Invalid Interpretation Code 10 - 40 U/L AO ADM SS Bilirubin [Mass/Vol] 0.6 mg/dL Invalid Interpretation Code 0.2 - 1.0 mg/dL AO ADM SS Calcium [Mass/Vol] 9.4 mg/dL Invalid Interpretation Code 8.4 - 10.2 mg/dL AO ADM SS Chloride [Moles/Vol] 105 mmol/L Invalid Interpretation Code 98 - 107 mmol/L AO ADM SS CO2 [Moles/Vol] 30 mmol/L Invalid Interpretation Code 23 - 31 mmol/L AO ADM SS Creatinine [Mass/Vol] 0.87 mg/dL Invalid Interpretation Code 0.55 - 1.02 mg/dL AO ADM SS Electrolyte Balance 7.0 mEq/L Invalid Interpretation Code 4.0 - 15.0 mEq/L AO ADM SS GFR 78 ml/min/1.73sqm Invalid Interpretation Code AO Chemistry S GFR Non- 65 ml/min/1.73sqm Invalid Interpretation Code AO Chemistry S Globulin 3.1 G/dL Invalid Interpretation Code AO ADM SS Glucose [Mass/Vol] 115 mg/dL Invalid Interpretation Code 80 - 115 mg/dL AO ADM SS HbA1c (Bld) [Mass fraction] 5.5 % Invalid Interpretation Code 4.3 - 6.4 % AO ADM SS Potassium [Moles/Vol] 5.0 mmol/L Invalid Interpretation Code 3.5 - 5.1 mmol/L AO ADM SS Protein [Mass/Vol] 7.1 G/dL Invalid Interpretation Code 6.4 - 8.2 G/dL AO ADM SS Sodium [Moles/Vol] 142 mmol/L Invalid Interpretation Code 136 - 145 mmol/L AO ADM SS Urea nitrogen [Mass/Vol] 13 mg/dL Invalid Interpretation Code 7 - 18 mg/dL AO ADM SS Urea nitrogen/Creatinine [Mass ratio] 15 ratio Invalid Interpretation Code 7 - 27 ratio AO ADM SS LABORATORYOrdered By: Isaac Ruelas on 10-10-2022 Cholesterol [Mass/Vol] 294 mg/dL Invalid Interpretation Code 0 - 200 mg/dL AO ADM SS Cholesterol in HDL [Mass/Vol] 61 mg/dL Invalid Interpretation Code 40 - 60 mg/dL AO ADM SS Cholesterol in LDL [Mass/Vol] 202 mg/dL Invalid Interpretation Code 0 - 130 mg/dL AO ADM SS Triglyceride [Mass/Vol] 154 mg/dL Invalid Interpretation Code 0 - 150 mg/dL AO ADM SS Vital Signs Date Time Vital Sign Value Performing Clinician Facility 02-27-2025 10:41-0400 Body temperature 98.4 [degF] Babita Morataya MANUFACTURING ENGINEERING TECHNOLOGIST-C Work Phone: [facility] 02-27-2025 10:41-0400 Diastolic blood pressure 54 mm[Hg] Babita Morataya MANUFACTURING ENGINEERING TECHNOLOGIST-C Work Phone: [facility] 02-27-2025 10:41-0400 Heart rate 100 /min Babita Morataya MANUFACTURING ENGINEERING TECHNOLOGIST-C Work Phone: [facility] 02-27-2025 10:41-0400 Respiratory rate 17 /min Babita Morataya MANUFACTURING ENGINEERING TECHNOLOGIST-C Work Phone: [facility] 02-27-2025 10:41-0400 SaO2% (BldA) [Mass fraction] 100 % Babita Morataya MANUFACTURING ENGINEERING TECHNOLOGIST-C Work Phone: [facility] 02-27-2025 10:41-0400 Systolic blood pressure 123 mm[Hg] Babita Morataya MANUFACTURING ENGINEERING TECHNOLOGIST-C Work Phone: [facility] 02-27-2025 10:18-0400 Body height 165.1 cm Babita Morataya MANUFACTURING ENGINEERING TECHNOLOGIST-C Work Phone: [facility] 02-23-2025 10:15-0400 Body temperature 97 [degF] Treatment Wstr Work Phone: [facility] 02-23-2025 10:15-0400 Diastolic blood pressure 57 mm[Hg] Treatment Wstr Work Phone: [facility] 02-23-2025 10:15-0400 Heart rate 86 /min Treatment Wstr Work Phone: [facility] 02-23-2025 10:15-0400 Respiratory rate 18 /min Treatment Wstr Work Phone: [facility] 02-23-2025 10:15-0400 SaO2% (BldA) [Mass fraction] 99 % Treatment Wstr Work Phone: [facility] 02-23-2025 10:15-0400 Systolic blood pressure 118 mm[Hg] Treatment Wstr Work Phone: [facility] 02-22-2025 14:35-0400 Body mass index (BMI) [Ratio] 27.96 kg/m2 Emilie Lennon MD Work Phone: [facility] 02-22-2025 14:35-0400 Body weight 76.2 kg Emilie Lennon MD Work Phone: [facility] 02-22-2025 14:35-0400 Diastolic blood pressure 70 mm[Hg] Emilie Lennon MD Work Phone: [facility] 02-22-2025 14:35-0400 Systolic blood pressure 104 mm[Hg] Emilie Lennon MD Work Phone: [facility] 02-16-2025 10:54-0400 Body mass index (BMI) [Ratio] 27.37 kg/m2 Treatment Wstr Work Phone: [facility] 02-16-2025 10:54-0400 Body temperature 97.39 [degF] Treatment Wstr Work Phone: [facility] 02-16-2025 10:54-0400 Body weight 74.62 kg Treatment Wstr Work Phone: [facility] 02-16-2025 10:54-0400 Diastolic blood pressure 71 mm[Hg] Treatment Wstr Work Phone: [facility] 02-16-2025 10:54-0400 Heart rate 83 /min Treatment Wstr Work Phone: [facility] 02-16-2025 10:54-0400 SaO2% (BldA) [Mass fraction] 99 % Treatment Wstr Work Phone: [facility] 02-16-2025 10:54-0400 Systolic blood pressure 145 mm[Hg] Treatment Wstr Work Phone: [facility] 02-09-2025 07:00-0400 Body temperature 97.11 [degF] Treatment Wstr Work Phone: [facility] 02-09-2025 07:00-0400 Diastolic blood pressure 75 mm[Hg] Treatment Wstr Work Phone: [facility] 02-09-2025 07:00-0400 Heart rate 76 /min Treatment Wstr Work Phone: [facility] 02-09-2025 07:00-0400 Systolic blood pressure 116 mm[Hg] Treatment Wstr Work Phone: [facility] 02-08-2025 11:05-0400 Body mass index (BMI) [Ratio] 26.96 kg/m2 Sonali Love INDUSTRIAL TRAINING SPECIALIST.SURVEY RESEARCH MANAGER Work Phone: [facility] 02-08-2025 11:05-0400 Body temperature 98.2 [degF] Sonali Love APRN.SURVEY RESEARCH MANAGER Work Phone: [facility] 02-08-2025 11:05-0400 Body weight 73.48 kg Sonali Love APRN.SURVEY RESEARCH MANAGER Work Phone: [facility] 02-08-2025 11:05-0400 Diastolic blood pressure 79 mm[Hg] Sonali Love INDUSTRIAL TRAINING SPECIALIST.SURVEY RESEARCH MANAGER Work Phone: [facility] 02-08-2025 11:05-0400 Heart rate 84 /min Sonali Love APRN.SURVEY RESEARCH MANAGER Work Phone: [facility] 02-08-2025 11:05-0400 SaO2% (BldA) [Mass fraction] 100 % Sonali Love APRN.SURVEY RESEARCH MANAGER Work Phone: [facility] 02-08-2025 11:05-0400 Systolic blood pressure 144 mm[Hg] Sonali Love INDUSTRIAL TRAINING SPECIALIST.SURVEY RESEARCH MANAGER Work Phone: [facility] 02-08-2025 10:28-0400 Body mass index (BMI) [Ratio] 27.04 kg/m2 Lab/Port Wstr Work Phone: [facility] 02-08-2025 10:28-0400 Body weight 73.71 kg Lab/Port Wstr Work Phone: [facility] Comment on above: pt weighed this AM 02-01-2025 10:00-0400 Body temperature 97.39 [degF] Treatment Wstr Work Phone: [facility] 02-01-2025 10:00-0400 Diastolic blood pressure 70 mm[Hg] Treatment Wstr Work Phone: [facility] 02-01-2025 10:00-0400 Heart rate 75 /min Treatment Wstr Work Phone: [facility] 02-01-2025 10:00-0400 SaO2% (BldA) [Mass fraction] 100 % Treatment Wstr Work Phone: [facility] 02-01-2025 10:00-0400 Systolic blood pressure 120 mm[Hg] Treatment Wstr Work Phone: [facility] 02-01-2025 09:51-0400 Body mass index (BMI) [Ratio] 27.62 kg/m2 Treatment Wstr Work Phone: [facility] 02-01-2025 09:51-0400 Body weight 75.3 kg Treatment Wstr Work Phone: [facility] 01-25-2025 11:25-0400 Diastolic blood pressure 74 mm[Hg] Treatment Wstr Work Phone: [facility] 01-25-2025 11:25-0400 Heart rate 76 /min Treatment Wstr Work Phone: [facility] 01-25-2025 11:25-0400 Respiratory rate 14 /min Treatment Wstr Work Phone: [facility] 01-25-2025 11:25-0400 SaO2% (BldA) [Mass fraction] 96 % Treatment Wstr Work Phone: [facility] 01-25-2025 11:25-0400 Systolic blood pressure 121 mm[Hg] Treatment Wstr Work Phone: [facility] 01-25-2025 08:35-0400 Body mass index (BMI) [Ratio] 27.29 kg/m2 Treatment Wstr Work Phone: [facility] 01-25-2025 08:35-0400 Body weight 74.39 kg Treatment Wstr Work Phone: [facility] 01-25-2025 08:00-0400 Body temperature 97.39 [degF] Treatment Wstr Work Phone: [facility] 01-18-2025 08:00-0400 Body temperature 97.2 [degF] Treatment Wstr Work Phone: [facility] 01-18-2025 08:00-0400 Diastolic blood pressure 80 mm[Hg] Treatment Wstr Work Phone: [facility] 01-18-2025 08:00-0400 Heart rate 64 /min Treatment Wstr Work Phone: [facility] 01-18-2025 08:00-0400 Systolic blood pressure 123 mm[Hg] Treatment Wstr Work Phone: [facility] 01-18-2025 07:00-0400 Body mass index (BMI) [Ratio] 27.54 kg/m2 Treatment Wstr Work Phone: [facility] 01-18-2025 07:00-0400 Body weight 75.07 kg Treatment Wstr Work Phone: [facility] 01-06-2025 11:37-0400 Body height 165.1 cm Kimmie Colby DO Work Phone: [facility] 01-06-2025 11:37-0400 Body mass index (BMI) [Ratio] 27.26 kg/m2 Kimmie Colby DO Work Phone: [facility] 01-06-2025 11:37-0400 Body weight 74.3 kg Kimmie Colby DO Work Phone: [facility] 01-04-2025 13:49-0400 Body height 165.8 cm Orville Martinez DO Work Phone: [facility] 01-04-2025 13:49-0400 Body mass index (BMI) [Ratio] 27.74 kg/m2 Orville Martinez DO Work Phone: [facility] 01-04-2025 13:49-0400 Body temperature 97.81 [degF] Orville Trani DO Work Phone: [facility] 01-04-2025 13:49-0400 Body weight 76.2 kg Orville Martinez DO Work Phone: [facility] 01-04-2025 13:49-0400 Diastolic blood pressure 71 mm[Hg] Orville Trani DO Work Phone: [facility] 01-04-2025 13:49-0400 Heart rate 87 /min Orville Martinez DO Work Phone: [facility] 01-04-2025 13:49-0400 SaO2% (BldA) [Mass fraction] 97 % Orvilel Martinez DO Work Phone: [facility] 01-04-2025 13:49-0400 Systolic blood pressure 141 mm[Hg] Orville Trani DO Work Phone: [facility] 12-13-2024 09:30-0400 Body mass index (BMI) [Ratio] 27.96 kg/m2 Sara Avalos MD Work Phone: [facility] 12-13-2024 09:30-0400 Body temperature 97.2 [degF] Sara Avalos MD Work Phone: [facility] 12-13-2024 09:30-0400 Body weight 76.2 kg Sara Avalos MD Work Phone: [facility] 12-13-2024 09:30-0400 Diastolic blood pressure 83 mm[Hg] Sara Avalos MD Work Phone: [facility] 12-13-2024 09:30-0400 Heart rate 86 /min Sara Avalos MD Work Phone: [facility] 12-13-2024 09:30-0400 Respiratory rate 14 /min Sara Avalos MD Work Phone: [facility] 12-13-2024 09:30-0400 SaO2% (BldA) [Mass fraction] 97 % Sara Avalos MD Work Phone: [facility] 12-13-2024 09:30-0400 Systolic blood pressure 140 mm[Hg] Sara Avalos MD Work Phone: [facility] 12-08-2024 10:38-0400 Diastolic blood pressure 75 mm[Hg] Lidia Finelli DO Work Phone: [facility] 12-08-2024 10:38-0400 Systolic blood pressure 147 mm[Hg] Lidia Finelli DO Work Phone: [facility] 12-01-2024 12:45-0400 Body height 165.1 cm Lidia Finelli DO Work Phone: [facility] 12-01-2024 12:45-0400 Body mass index (BMI) [Ratio] 27.42 kg/m2 Lidia Finelli DO Work Phone: [facility] 12-01-2024 12:45-0400 Body temperature 98.01 [degF] Lidia Finelli DO Work Phone: [facility] 12-01-2024 12:45-0400 Body weight 74.75 kg Lidia Finelli DO Work Phone: [facility] 12-01-2024 12:45-0400 Diastolic blood pressure 82 mm[Hg] Lidia Finelli DO Work Phone: [facility] 12-01-2024 12:45-0400 SaO2% (BldA) [Mass fraction] 99 % Lidia Finelli DO Work Phone: [facility] 12-01-2024 12:45-0400 Systolic blood pressure 110 mm[Hg] Lidia Hirsch DO Work Phone: [facility] Encounters Encounter Date Encounter Type Care Provider Facility Start: 02-27-2025 End: 02-27-2025 Emergency department patient visit Babita LATHAM Work Phone: -Emergency Department Work Phone: Start: 02-24-2025 End: 02-24-2025 Telephone encounter Orville Martinez DO Work Phone: Hematology/Oncology Comment on above: Chemotherapy Treatme nt Start: 02-23-2025 End: 02-23-2025 ambulatory Treatment Rm 12 Escobar [facility] Work Phone: Hematology/Oncology Comment on above: 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, estrogen receptor negative (HCC) (Primary Dx); Breast cancer, stage 2, left (HCC); Lung nodules Start: 02-22-2025 End: 02-22-2025 Patient encounter procedure Emilie Lennon MD Work Phone: OB/Gynecology Comment on above: History of breast ca ncer (Primary Dx); Endometrial polyp Start: 02-22-2025 End: 02-22-2025 ambulatory EMILIE LENNON Facility:[facility] Start: 02-18-2025 End: 02-21-2025 ambulatory Orville Martinez DO Work Phone: Hematology/Oncology Comment on above: Plantar fasciitis Start: 02-18-2025 End: 02-18-2025 Telephone encounter Raul Ng MD Work Phone: OB/Gynecology Comment on above: Appointment Start: 02-16-2025 End: 02-16-2025 ambulatory Treatment Rm 6 [facility] Work Phone: Hematology/Oncology Comment on above: 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, estrogen receptor negative (HCC) (Primary Dx); Breast cancer, stage 2, left (HCC); Lung nodules Start: 02-09-2025 End: 02-09-2025 ambulatory Treatment Rm 1 [facility] Work Phone: Hematology/Oncology Comment on above: 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, estrogen receptor negative (HCC) (Primary Dx) Start: 02-08-2025 End: 02-08-2025 Subsequent hospital visit by physician Farooq [facility] Rosy Sanon Work Phone: Radiology Comment on above: 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, estrogen receptor negative (HCC) [C50.212, Z17.1] Start: 02-08-2025 End: 02-08-2025 Patient encounter procedure Sonali Love APRN.CNP Work Phone: Hematology/Oncology Start: 02-08-2025 End: 02-08-2025 ambulatory Lab/Port [facility] Work Phone: Hematology/Oncology Comment on above: Breast cancer, stage 2, left (HCC) (Primary Dx); Malignant neoplasm of upper-inner quadrant of left breast in female, estrogen receptor negative (HCC); Lung nodules; Malaise and fatigue; Acquired hypothyroidism; Hypoadrenalism (HCC) 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, estrogen receptor negative (HCC) (Primary Dx) Start: 02-04-2025 End: 02-04-2025 Telephone encounter Deborah ESCALANTE Hematology/Oncology Comment on above: Psychosocial Assessm ent Start: 02-01-2025 End: 02-01-2025 ambulatory Treatment Rm 10 [facility] Work Phone: Hematology/Oncology Comment on above: 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, estrogen receptor negative (HCC) (Primary Dx); Breast cancer, stage 2, left (HCC); Lung nodules Start: 01-26-2025 End: 02-03-2025 Telephone encounter Orville Martinez DO Work Phone: Hematology/Oncology Comment on above: Patient Question Start: 01-25-2025 End: 01-25-2025 ambulatory Treatment Rm 3 [facility] Work Phone: Hematology/Oncology Comment on above: Triple negative [address] cancer (HCC) (Primary Dx); Malignant neoplasm of upper-inner quadrant of left breast in female, estrogen receptor negative (HCC) Refill Request Start: 01-21-2025 End: 01-21-2025 Telephone encounter Orville Martinez DO Work Phone: Hematology/Oncology Comment on above: Care Coordination (K[facility] benton at [facility]) Start: 01-19-2025 End: 01-31-2025 Telephone encounter Jennifer Burk RN Hematology/Oncology Comment on above: Curriculum Developer - O ther (C1D1 Post Treatment Call (Carbo/taxol/keytruda) ) Start: 01-18-2025 End: 01-18-2025 ambulatory Treatment Rm 1 [facility] Work Phone: Hematology/Oncology Comment on above: Triple negative [address] cancer (HCC) (Primary Dx); Breast cancer, stage 2, left (HCC); Malignant neoplasm of upper-inner quadrant of left breast in female, estrogen receptor negative (HCC); Lung nodules; Malaise and fatigue; Acquired hypothyroidism; Hypoadrenalism (HCC) Start: 01-17-2025 End: 01-18-2025 Telephone encounter Orville Martinez DO Work Phone: Hematology/Oncology Comment on above: Results Start: 01-14-2025 End: 01-14-2025 Telephone encounter Jennifer Burk RN Hematology/Oncology Comment on above: Curriculum Developer - O ther (Antiemetic ) Start: 01-14-2025 End: 01-14-2025 merchandise pickup/receiving associate [facility] Work Phone: Hematology/Oncology Comment on above: Encounter for educat ion (Primary Dx) Start: 01-14-2025 End: 01-14-2025 ambulatory BABITA MORATAYA Facility:[facility] Start: 01-14-2025 End: 01-14-2025 Subsequent hospital visit by physician [facility] Work Phone: Radiology Comment on above: Increased endometria l stripe thickness [R93.89] Start: 01-13-2025 End: 01-14-2025 Telephone encounter Orville Martinez DO Work Phone: Hematology/Oncology Comment on above: cooling cap Start: 01-10-2025 End: 01-10-2025 ambulatory NIDIA WATERMAN Facility:[facility] Start: 01-07-2025 ambulatory BABITA MORATAYA Facility :[facility] Start: 01-07-2025 End: 01-07-2025 Subsequent hospital visit by physician Procedure Mammo [facility] Mamm[facility] Start: 01-06-2025 End: 01-06-2025 ambulatory KIMMIE COLBY Facility:[facility] Start: 01-06-2025 End: 01-06-2025 Patient encounter procedure Kimmie Colby DO Work Phone: 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, estrogen receptor negative (HCC) (Primary Dx); 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); Enlarged lymph node Start: 01-06-2025 End: 01-06-2025 ambulatory BABITA RAFIA Facility:[facility] Start: 01-06-2025 ambulatory BABITA ROCHELLEMATHEW Facility :[facility] Start: 01-06-2025 End: 01-06-2025 Subsequent hospital visit by physician Mri Radio [facility] (I-Stat/1.5t) Work Phone: Radiology Comment on above: Lesion of liver grea ter than 1 cm in diameter [K76.9] Start: 01-05-2025 End: 01-05-2025 Telephone encounter Jennifer Burk product assurance engineer/Oncology Comment on above: Curriculum Developer - O ther (Chemo Education appointment ) Appointment 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, estrogen receptor negative (HCC) (Primary Dx) Patient Update Start: 01-05-2025 End: 01-06-2025 ambulatory Orville Martinez DO Work Phone: Hematology/Oncology Comment on above: Office report to Michelle Morataya at [place] Start: 01-04-2025 End: 01-04-2025 Patient encounter procedure Orville Martinez DO Work Phone: Hematology/Oncology Start: 01-04-2025 End: 01-04-2025 Telephone encounter Lilly Meier RN Work Phone: Hematology/Oncology Comment on above: Care Coordination (I ntroduction) Follow Up Start: 01-04-2025 End: 01-04-2025 ambulatory Orville Trae Michelle DO Work Phone: Hematology/Oncology Comment on above: 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 Comment on above: Curriculum Developer - O ther Start: 12-21-2024 End: 12-21-2024 E-mail encounter from caregiver Sara Avalos MD Work Phone: Radiation Oncology Start: 12-21-2024 End: 12-21-2024 Patient encounter procedure Sara Avalos MD Work Phone: Radiation Oncology Comment on above: Appointment Request Start: 12-21-2024 End: 01-07-2025 Telephone encounter Lidia Hirsch DO Work Phone: General Surgery Comment on above: MRI Scheduling ; Cass ointment Start: 12-14-2024 End: 12-14-2024 Emergency department patient visit Room Emergency CT Scan Comment on above: Radiology CT Start: 12-14-2024 End: 12-14-2024 Patient encounter procedure Room Emergency CT Scan Start: 12-14-2024 ambulatory BABITA MORATAYA Facility :[facility] Start: 12-14-2024 End: 12-14-2024 Subsequent hospital visit by physician Darvin [facility] (I-Stat) Work Phone: CT Scan Comment on above: 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, estrogen receptor negative (HCC) [C50.212, Z17.1] Start: 12-13-2024 End: 12-13-2024 Telephone encounter Lidia Hirsch DO Work Phone: General Surgery Start: 12-13-2024 End: 12-13-2024 Patient encounter procedure Sara Avalos MD Work Phone: Radiation Oncology Comment on above: 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, estrogen receptor negative (HCC) (Primary Dx) Start: 12-13-2024 End: 12-13-2024 ambulatory [facility] Facility:[facility] Start: 12-08-2024 End: 12-09-2024 Admission to same day surgery center Lidia Hirsch DO Work Phone: General Surgery Comment on above: Information from avtar castro's office visit Start: 12-08-2024 End: 12-09-2024 E-mail encounter from caregiver Lidia Hirsch DO Work Phone: General Surgery Start: 12-08-2024 End: 12-20-2024 Telephone encounter Orville Martinez DO Work Phone: Hematology/Oncology Comment on above: New Patient Start: 12-08-2024 End: 12-08-2024 ambulatory UNKNOWN PROVIDER Facility:[facility] Start: 12-08-2024 End: 12-08-2024 ambulatory [facility] Facility:[facility] Start: 12-08-2024 End: 12-08-2024 Office outpatient visit 40 minutes Lidia Hirsch DO Work Phone: General Surgery Comment on above: Breast cancer, stage 2, left (HCC) (Primary Dx); Malignant neoplasm of upper-inner quadrant of left breast in female, estrogen receptor negative (HCC); Infiltrating ductal carcinoma of left breast (HCC); Diarrhea, unspecified type Start: 12-01-2024 ambulatory [facility] Facility :[facility] Start: 12-01-2024 End: 12-01-2024 ambulatory [facility] Facility:[facility] Start: 12-01-2024 End: 12-01-2024 Office outpatient new 60 minutes Lidia Hirsch DO Work Phone: General Surgery Comment on above: Mass of upper inner quadrant of left breast (Primary Dx) Start: 11-26-2024 End: 11-26-2024 ambulatory BABITA BYRDMATHEW INDUSTRIAL TRAINING SPECIALIST-SURVEY RESEARCH MANAGER Facility:[facility] Start: 11-10-2024 End: 11-10-2024 ambulatory BABITA MORATAYA INDUSTRIAL TRAINING SPECIALIST-SURVEY RESEARCH MANAGER Facility:[facility] Start: 10-18-2024 ambulatory BABITA MORATAYA INDUSTRIAL TRAINING SPECIALIST-SURVEY RESEARCH MANAGER Facility:[facility] Start: 10-18-2024 End: 10-18-2024 ambulatory BABITA MORATAYA INDUSTRIAL TRAINING SPECIALIST-SURVEY RESEARCH MANAGER Facility:[facility] Start: 07-23-2024 ambulatory BABITA MORATAYA INDUSTRIAL TRAINING SPECIALIST-SURVEY RESEARCH MANAGER Facility:[facility] Start: 06-28-2024 ambulatory Swapnil Vargas Facility:[facility] Start: 06-25-2024 End: 06-25-2024 ambulatory Sukhi Pizano Facility:[facility] Start: 06-18-2024 End: 06-22-[address] SUKHI PIZANO MD Facility:[facility] Start: 06-18-2024 End: 06-22-[address] SUKHI PIZANO MD [facility] Start: 05-28-2024 End: 05-28-[address] SUKHI PIZANO MD Facility:[facility] Start: 05-28-2024 End: 05-28-[address] SUKHI PIZANO MD [facility] Start: 05-28-2024 End: 05-28-[address] SUKHI PIZANO MD Facility:[facility] Start: 05-28-2024 End: 05-28-2024 Patient encounter procedure BABITA RAFIA INDUSTRIAL TRAINING SPECIALIST-SURVEY RESEARCH MANAGER [facility] Start: 05-27-2024 End: 05-27-2024 ambulatory BABITA RAFIA INDUSTRIAL TRAINING SPECIALIST-SURVEY RESEARCH MANAGER Facility:[facility] Start: 05-27-2024 End: 05-27-2024 Patient encounter procedure BABITA BYRDMATHEW INDUSTRIAL TRAINING SPECIALIST-SURVEY RESEARCH MANAGER [facility] Start: 11-05-2023 End: 11-06-2023 ambulatory BABITA MORATAYA INDUSTRIAL TRAINING SPECIALIST-SURVEY RESEARCH MANAGER Facility:[facility] Start: 11-05-2023 End: 11-05-2023 Patient encounter procedure BABITA MORATAYA INDUSTRIAL TRAINING SPECIALIST-SURVEY RESEARCH MANAGER [facility] Start: 06-09-2023 End: 06-10-2023 ambulatory BABITA MORATAYA INDUSTRIAL TRAINING SPECIALIST-SURVEY RESEARCH MANAGER Facility:[facility] Start: 06-09-2023 End: 06-09-[address] TIMUR MINA [facility] Start: 12-02-2022 End: 12-03-2022 ambulatory BABITA MORATAYA INDUSTRIAL TRAINING SPECIALIST-SURVEY RESEARCH MANAGER Facility:[facility] Start: 12-02-2022 End: 12-02-2022 Patient encounter procedure BABITA MORATAYA INDUSTRIAL TRAINING SPECIALIST-SURVEY RESEARCH MANAGER [facility] Start: 11-06-2022 End: 11-07-2022 ambulatory BABITA MORATAYA INDUSTRIAL TRAINING SPECIALIST-SURVEY RESEARCH MANAGER Facility:B Start: 11-06-2022 End: 11-06-2022 Patient encounter procedure BABITA MORATAYA INDUSTRIAL TRAINING SPECIALIST-SURVEY RESEARCH MANAGER [facility] Start: 10-10-2022 End: 10-10-2022 Patient encounter procedure BABITA MORATAYA INDUSTRIAL TRAINING SPECIALIST-SURVEY RESEARCH MANAGER [facility] Start: 02-14-1984 Evaluation and management of inpatient Babita Morataya MANUFACTURING ENGINEERING TECHNOLOGIST-C Work Phone: - Procedures Date Procedure Procedure Detail Performing Clinician Start: 02-23-2025 Blood count complete auto&auto difrntl wbc Orville Trani DO Work Phone: Start: 02-16-2025 Blood count complete auto&auto difrntl wbc Orville Martinez DO Work Phone: Start: 02-08-2025 Radiologic exam ches t 2 views Sonali Love INDUSTRIAL TRAINING SPECIALIST.SURVEY RESEARCH MANAGER Work Phone: Start: 02-08-2025 Blood count complete auto&auto difrntl wbc Orville Martinez DO Work Phone: Start: 02-01-2025 Blood count complete auto&auto difrntl wbc Orville Martinez DO Work Phone: Start: 01-25-2025 End: 01-25-2025 Basic metabolic panel calcium total Orville Martinez DO Work Phone: Start: 01-18-2025 Blood count complete auto&auto difrntl wbc Orville Martinez DO Work Phone: Start: 01-07-2025 Us lmtd joint/oth no nvasc xtr strux r-t w/img Kimmiejef Gardunoente DO Work Phone: Start: 12-01-2024 US BREAST BIOPSY LEF T (POC) SURG USE ONLY Lidia C Finelli DO Work Phone: Start: 12-01-2024 BREAST MARKERS Lidia C Finelli DO Work Phone: Start: 12-01-2024 Level iv surg pathol ogy gross&microscopic exam Lidia C Finelli DO Work Phone: Cataract (disorder) BABITA MORATAYA INDUSTRIAL TRAINING SPECIALIST-SURVEY RESEARCH MANAGER Retinal detachment (disorder) BABITA MORATAYA INDUSTRIAL TRAINING SPECIALIST-SURVEY RESEARCH MANAGER Plan of Treatment Date Care Activity Detail Author Start: 2029 RSV Vaccine (1 - 1-d ose 75+ series) RSV Vaccine (1 - 1-dose 75+ series) [facility] Start: 02-24-2028 Diabetes Screening Diabetes Screenin g [facility] Start: 02-17-2028 Diabetes Screening Diabetes Screenin g [facility] Start: 02-09-2028 Diabetes Screening Diabetes Screenin g [facility] Start: 02-02-2028 Diabetes Screening Diabetes Screenin g [facility] Start: 01-26-2028 Diabetes Screening Diabetes Screenin g [facility] Start: 01-19-2028 Diabetes Screening Diabetes Screenin g [facility] Start: 12-09-2027 Diabetes Screening Diabetes Screenin g [facility] Start: 10-21-2025 Screening for malign ant neoplasm of colon [facility] Start: 05-04-2025 End: 05-04-2025 ambulatory 05/04/2025 10:00 AM EDT Infusion Center Hematology/Oncology [address] [place] [address] [address] PT UNAVAILABLE 04/18, Hematology/Oncology Comment on above: PT UNAVAILABLE 04/18, Start: 05-03-2025 End: 05-03-2025 ambulatory Hematology/Oncology Comment on above: (SO)CBC/CMP(S)/MG(S) (PORT)* TSH/T4/CORTISOL EVERY OTHER CYCLE OV(PORT)LAB EARLY/CH EMO 05/04* [facility] Start: 04-14-2025 End: 04-14-2025 ambulatory 04/14/2025 9:30 AM EDT Infusion Center Hematology/Oncology [address] [place] [address] PT UNAVAILABLE 04/18, Hematology/Oncology Comment on above: PT UNAVAILABLE 04/18, Start: 04-13-2025 End: 04-13-2025 ambulatory Hematology/Oncology Comment on above: (SO)CBC/CMP(S)/MG(S) (PORT)* TSH/T4/CORTISOL EVERY OTHER CYCLE OV(PORT)LAB EARLY/CH EMO 04/14* [facility] Start: 04-11-2025 Influenza vaccination C [facility] Start: 04-06-2025 End: 04-06-2025 ambulatory Hematology/Oncology Comment on above: (SO)CBC/CMP(S)(PORT) D15 CARBO/TAXOL* (SO)CBC/CMP(S)(PORT) D15 CARBO/TAXOL* . Available Start: 03-30-2025 End: 03-30-2025 ambulatory 03/30/2025 10:30 AM EDT Infusion Center Hematology/Oncology [address] [place] [address] (SO)CBC/CMP(S)(PORT)D8 CARBO/TAXOL* Hematology/Oncology Comment on above: (SO)CBC/CMP(S)(PORT) D8 CARBO/TAXOL* Start: 03-23-2025 End: 03-23-2025 ambulatory Hematology/Oncology Comment on above: Q3WK CARBO/TAXOL/HERNANDEZ TRUDA/C4-4/LAB&OV 03/22* THEN KEYTRUDA/ONPRO ONLY Q3WK CARBO/TAXOL/HERNANDEZ TRUDA/C4-4/LAB&OV 03/22* Start: 03-22-2025 End: 03-22-2025 ambulatory Hematology/Oncology Comment on above: (SO)CBC/CMP(S)/MG(S) (PORT)* TSH/T4/CORTISOL EVERY OTHER CYCLE OV(PORT)LAB EARLY/CH EMO 03/23* [facility] Start: 03-16-2025 End: 03-16-2025 ambulatory Hematology/Oncology Comment on above: CBC/CMP(PORT)D15 CAR QUENTIN/TAXOL* (SO)CBC/CMP(S)(PORT) D15 CARBO/TAXOL* Start: 03-14-2025 End: 03-14-2025 ambulatory 03/14/2025 10:00 AM EDT Infusion Center Hematology/Oncology [address] [place], [place] [id number] (SO)CBC/CMP(S)(PORT)D1 5 CARBO/TAXOL* Hematology/Oncology Comment on above: (SO)CBC/CMP(S)(PORT) D15 CARBO/TAXOL* Start: 03-09-2025 End: 03-09-2025 ambulatory Hematology/Oncology Comment on above: CBC/CMP(PORT)D8 CARB O/TAXOL* (SO)CBC/CMP(S)(PORT) D8 CARBO/TAXOL* Start: 03-04-2025 End: 03-04-2025 Patient encounter procedure 03/04/2025 10:30 AM EDT Office Visit OB/Gynecology [address] [place], [place] [id number] Suze Padilla APRN.SURVEY RESEARCH MANAGER [address] [place], [place] [id number] Dx: Endometrial polyp [N84.0] OB/Gynecology Comment on above: Dx: Endometrial poly p [N84.0] Start: 03-02-2025 End: 03-02-2025 ambulatory Hematology/Oncology Comment on above: Q3WK CARBO/TAXOL/HERNANDEZ TRUDA/C3-4/LAB&OV 03/01* THEN KEYTRUDA/ONPRO ONLY Q3WK CARBO/TAXOL/HERNANDEZ TRUDA/C3-4/LAB&OV 03/01* Start: 03-01-2025 End: 03-01-2025 ambulatory Hematology/Oncology Comment on above: CBC/CMP/MAG/TSH/T4/C ORTISOL(PORT)* TSH/T4/CORTISOL EVERY OTHER CYCLE OV(PORT)LAB EARLY/CH EMO 03/02* (SO)CBC/CMP(S)/MG(S) /TSH/T4/CORTISOL(PORT)* TSH/T4/CORTISOL EVERY OTHER CYCLE Start: 02-27-2025 [facility] Start: 02-24-2025 End: 02-24-2025 Patient encounter procedure 02/24/2025 8:30 AM EDT Office Visit OB/Gynecology [address] [place] [address] Raul Ng MD [address] [place] [address] Dx: Endometrial polyp [N84.0] OB/Gynecology Comment on above: Dx: Endometrial poly p [N84.0] Start: 02-23-2025 End: 02-23-2025 ambulatory Hematology/Oncology Comment on above: CBC/CMP(PORT)D15 CAR QUENTIN/TAXOL* (SO)CBC/CMP(S)(PORT) D15 CARBO/TAXOL* Start: 02-22-2025 End: 02-22-2025 Patient encounter procedure 02/22/2025 2:40 PM EDT Office Visit OB/Gynecology [address] [place] [address] Emilie Lennon MD [address] [place] [address] Dx: Endometrial polyp [N84.0] OB/Gynecology Comment on above: Dx: Endometrial poly p [N84.0] Start: 02-16-2025 End: 02-16-2025 ambulatory Hematology/Oncology Comment on above: CBC/CMP(PORT)D8 CARB O/TAXOL* (SO)CBC/CMP(S)(PORT) D8 CARBO/TAXOL* Start: 02-09-2025 End: 02-09-2025 ambulatory 02/09/2025 8:00 AM EDT [facility] Hematology/Oncology [address] [place] [address] Q3WK CARBO/TAXOL/KEYTRUDA/C 2-4/LAB&OV 02/08* THEN KEYTRUDA/ONPRO ONLY Hematology/Oncology Comment on above: Q3WK CARBO/TAXOL/HERNANDEZ TRUDA/C2-4/LAB&OV 02/08* THEN KEYTRUDA/ONPRO ONLY Start: 02-08-2025 End: 02-08-2025 ambulatory Hematology/Oncology Comment on above: CBC/CMP/MAG(PORT)* T SH/T4/CORTISOL EVERY OTHER CYCLE OV(PORT)LAB EARLY/CH EMO 7/2* (SO)CBC/CMP(S)/MG(S) (PORT)* TSH/T4/CORTISOL EVERY OTHER CYCLE OV(PORT)LAB EARLY/CH EMO 7/2* [facility] Start: 02-02-2025 End: 02-02-2025 Patient encounter procedure 02/02/2025 11:00 AM EDT Office Visit Plastic Surgery [address] [place] [address] Otis Mock MD [address] [place] [address] breast ca Plastic Surgery Comment on above: breast ca Start: 02-01-2025 End: 02-01-2025 ambulatory Hematology/Oncology Comment on above: CBC/CMP(PORT)D15 CAR QUENTIN/TAXOL* (SO)CBC/CMP(S)(PORT) D15 CARBO/TAXOL* Start: 01-25-2025 End: 01-25-2025 ambulatory Hematology/Oncology Comment on above: CBC/CMP(PORT)D8 CARB O/TAXOL* (SO)CBC/CMP(S)(PORT) D8 CARBO/TAXOL* Start: 01-18-2025 End: 01-18-2025 ambulatory Hematology/Oncology Comment on above: START CBC/CMP/MAG/TS H/T4/CORTISOL(PORT)Q3WK CARBO/TAXOL/KEYTRUDA/C1-4* THEN KEYTRUDA/ONPRO ONLY START (SO)CBC/CMP(S) /MG(S)/TSH/T4/CORTISOL(PORT)Q3WK CARBO/TAXOL/KEYTRUDA/C1-4* THEN KEYTRUDA/ONPRO ONLY Start: 01-14-2025 End: 01-14-2025 ambulatory 01/14/2025 10:30 AM EDT Infusion Center Hematology/Oncology [address] [place] [id number] Wstr, Curriculum Developer [facility] [address] [place] [id number] CHEMO ED* Hematology/Oncology Comment on above: CHEMO ED* Start: 01-14-2025 End: 01-14-2025 Patient encounter procedure 01/14/2025 7:45 AM EDT Appointment Radiology [address] [place] [phone] Increased endometrial stripe thickness [R93.89] Radiology Comment on above: Increased endometria l stripe thickness [R93.89] Start: 01-10-2025 End: 01-10-2025 Admission to same day surgery center 01/10/2025 10:30 AM EDT - 01/10/2025 12:00 PM EDT Surgery [facility] [address] [place] [address] [place] [address] [facility] , [address] [place] [address] INSERTION PORT VENOUS ACCESS ADULT [facility] Comment on above: INSERTION PORT VENOU S ACCESS ADULT Start: 01-10-2025 End: 01-10-2025 ambulatory 01/10/2025 10:30 AM EDT Infusion Center Hematology/Oncology [address] [place] [phone] Wstr, Curriculum Developer [facility] [address] [place] [address] CHEMO ED* Hematology/Oncology Comment on above: CHEMO ED* Start: 01-10-2025 End: 01-10-2025 Insj tunneled ctr vad w/subq port age 4 yr/> INSERTION PORT VENOUS ACCESS ADULT Malignant neoplasm of upper-inner quadrant of left breast in female, estrogen receptor negative (HCC) 01/10/2025 10:30 AM EDT [facility] Start: 01-10-2025 Subsequent hospital visit by physician 01/10/2025 10:30 AM EDT Hospital Encounter [facility] [address] [place] [address] [place] [address] [facility] , [address] [place] [address] Malignant neoplasm of upper-inner quadrant of left breast in female, estrogen receptor negative (HCC) [C50.212, Z17.1] [facility] Comment on above: 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 [address] [place] [address] [place] [address] [place] [address] [facility] Comment on above: breast ca Start: 01-06-2025 End: 04-07-2025 NVTA INVITAE HEREDITARY DIAGNOSTIC CANCER PANEL [facility] Work Phone: Comment on above: Expected: 01/06/2025 , Expires: 04/07/2025 Start: 01-06-2025 End: 01-06-2025 Patient encounter procedure [facility] Comment on above: breast ca new breast ca Start: 01-06-2025 End: 01-06-2025 Patient encounter procedure 01/06/2025 8:30 AM EDT Appointment Radiology [address] [place] [address] MRI LIVER WO/W IVCON Radiology Comment on above: MRI LIVER WO/W IVCON Start: 01-04-2025 End: 01-04-2025 ambulatory Hematology/Oncology Comment on above: breast ca MANUFACTURING ENGINEERING TECHNOLOGIST/BREAST CA/REF DR HIRSCH* Start: 01-04-2025 End: 04-05-2025 Chronic hepatitis differentiation between hepatitis B and C virus panel - Serum or Plasma [facility] Work Phone: Comment on above: Expected: 01/04/2025 , Expires: 04/05/2025 Start: 12-15-2024 End: 12-15-2024 Patient encounter procedure 12/15/2024 8:20 AM EDT Appointment Cat Scan [address] [place] [address] ct chest Cat Scan Comment on above: ct chest Start: 12-14-2024 End: 12-14-[address] Scan Comment on above: ct abd Start: 12-13-2024 End: 12-13-2024 Patient encounter procedure 12/13/2024 9:30 AM EDT Office Visit Radiation Oncology [address] [place], [place] [phone] Sara Avalos MD [address] [facility] [place] [address] MANUFACTURING ENGINEERING TECHNOLOGIST/BREAST CANCER/REF BY Babita Morataya APRN.SURVEY RESEARCH MANAGER* Radiation Oncology Comment on above: MANUFACTURING ENGINEERING TECHNOLOGIST/BREAST CANCER/REF BY Babita Morataya APRN.SURVEY RESEARCH MANAGER* Start: 08-11-2024 Advance Directive Discussion Advance Directive Discussion [facility] Start: 04-11-2024 Covid-19 Vaccine () Covid-19 Vaccine () [facility] Start: 04-11-2024 Influenza vaccination Influenza Vacc ine (#1) [facility] Start: 2019 Screening for osteoporosis Bone Density Screening [facility] Start: 04-11-2019 Medicare Annual Well ness Visit Medicare Annual Wellness Visit [facility] Start: 2014 RSV Vaccine (1 - Ris k 60-74 years 1-dose series) RSV Vaccine (1 - Risk 60-74 years 1-dose series) [facility] Start: 2004 Pneumococcal Vaccine : 50+ (1 of 1 - PCV) Pneumococcal Vaccine: 50+ (1 of 1 - PCV) [facility] Start: 2004 Shingrix Vaccine (1 of 2) Nguyen grix Vaccine (1 of 2) [facility] Start: 1999 Lipid panel Lipid Screening [facility] Start: 1999 Screening for malign ant neoplasm of colon [facility] Start: 1994 Screening for malign ant neoplasm of breast Mammogram Screening [facility] Start: 1973 Pneumococcal Vaccine : 50+ (1 of 2 - PCV) Pneumococcal Vaccine: 50+ (1 of 2 - PCV) [facility] Start: 1973 Shingrix Vaccine (1 of 2) Nguyen grix Vaccine (1 of 2) [facility] Start: 1973 Urine microalbumin profile DTaP,Tdap,Td Vaccine (1 - Tdap) [facility] Start: 1972 Anxiety Screening Anxiety Screening [facility] Start: 1972 Depression Screening Depression Scre ening [facility] Start: 1972 [facility] Start: 1965 Screening for malign ant neoplasm of cervix Cervical Cancer Screening [facility] Start: 1959 Covid-19 Vaccine (#1) Covid-19 Vacci ne (#1) [facility] End: 01-07-2026 CT Abdomen and Pelvis W contrast IV CT ABD/PEL W IVCON Radiology Routine Malignant neoplasm of upper-inner quadrant of left breast in female, estrogen receptor negative (HCC) 1 Occurrences starting 12/08/2024 until 01/07/2026 [facility] Work Phone: Comment on above: 1 Occurrences starti ng 12/08/2024 until 01/07/2026 CT Abdomen and Pelvi s W contrast IV CT ABD/PEL W IVCON Radiology Routine Malignant neoplasm of upper-inner quadrant of left breast in female, estrogen receptor negative (HCC) 12/14/2024 1:35 PM EDT [facility] Work Phone: End: 01-07-2026 CT Chest WO contrast CT CHEST WO IVCON Radiology Routine Malignant neoplasm of upper-inner quadrant of left breast in female, estrogen receptor negative (HCC) 1 Occurrences starting 12/08/2024 until 01/07/2026 [facility] Comment on above: 1 Occurrences starti ng 12/08/2024 until 01/07/2026 CT Chest WO contrast CT CHEST WO IVCON Radiology Routine Malignant neoplasm of upper-inner quadrant of left breast in female, estrogen receptor negative (HCC) 12/14/2024 1:40 PM EDT [facility] FISH FOR HER-2 FISH FOR HER-2 L ab Routine Mass of upper inner quadrant of left breast 12/01/2024 1:56 PM T [facility] Work Phone: MR Breast - bilatera l WO and W contrast IV MRI BREAST WO/W IVCON BILATERAL Radiology Routine Malignant neoplasm of upper-inner quadrant of left breast in female, estrogen receptor negative (HCC) 01/04/2025 10:24 AM T [facility] Work Phone: MR Liver WO and W contrast IV MRI LIVER WO/W IVCON Radiology Routine Lesion of liver greater than 1 cm in diameter 01/06/2025 9:18 AM T [facility] Work Phone: MRI BREAST 3D POST PROCESSING MRI BREAST 3D POST PROCESSING Radiology Routine Malignant neoplasm of upper-inner quadrant of left breast in female, estrogen receptor negative (HCC) 01/04/2025 10:24 AM EDT [facility] Patient Education ED Fecal Impac tion, Treated ED Near-Fainting- Vagal Reaction [facility] Work Phone: Stroke after atrial fibrillation 5 year risk [#] Tom 2002 IR PORTOCATH PLACEMENT Radiology Routine Malignant neoplasm of upper-inner quadrant of left breast in female, estrogen receptor negative (HCC) Ordered: 01/04/2025 [facility] Comment on above: Ordered: 01/04/2025 End: 02-03-2026 US Pelvis transvaginal US FEMALE PELVIS TRANSVAG Radiology Routine Increased endometrial stripe thickness 1 Occurrences starting 01/04/2025 until 02/03/2026 [facility] Work Phone: Comment on above: 1 Occurrences starti ng 01/04/2025 until 02/03/2026 US Pelvis transvaginal US FEMALE PELVIS TRANSVAG Radiology Routine Increased endometrial stripe thickness 01/14/2025 8:22 AM EDT [facility] Work Phone: Payers Date Payer Category Payer Self-pay 2020 Private Health Insurance [employer] MED ICARE SUPPLEMENT [id number] 2020 Unknown [id number] 2019 Medicare [id number] 2019 Medicare [id number] 1954 Unknown [id number] [id number]. 62 1954 Unknown [id number] 2.840.1.772939.3.579.2. 62 1954 Unknown [id number] 2.16840.1.247498.3.579.2. 1954 Unknown [id number] 2.16.840.1.359972.3.579.2. 627 1954 Unknown [id number] 2.16840.1.816761.3.579.2. 627 1954 Unknown [id number] 2.16.840.1.496112.3.579.2. 62 1954 Unknown [id number] 2.16.840.1.003333.3.579.2. 62 1954 Unknown [id number] 2.16.840.1.001219.3.579.2. 1954 Unknown [id number] 2.16.840.1.368648.3.579.2. 1954 Unknown [id number] 2.16.840.1.551866.3.579.2. 1954 Unknown [id number] 2.16.840.1.328448.3.579.2. 1954 Unknown [id number] 2.16.840.1.602864.3.579.2. 1954 Unknown [id number] 2.16.840.1.617825.3.579.2. 1954 Unknown [id number] 2.16.840.1.275419.3.579.2. 7 1954 Unknown [id number] 2.16.840.1.348062.3.579.2. 627 Unknown [id number] 2.16.840.1.527781.3.579.2. 462 Unknown [id number] 2.16.840.1.038976.3.579.2. 462 Unknown [id number] 2.16840.1.171654.3.579.2. 462 Social History Date Type Detail Facility Start: 05-10-2020 End: 02-27-2025 Tobacco smoking status Never smoked tobacco (finding) [facility] Start: 1955 Sex Assigned At Female A [facility] Start: 06-16-2020 End: 01-06-2025 Tobacco use and exposure Smokeless tobacco non-user [facility] Start: 12-08-2024 End: 02-22-2025 Alcoholic beverage intake Ex-drinker (finding) [facility] Start: 12-08-2024 End: 02-22-2025 History of Social function [facility] Start: 12-08-2024 End: 02-22-2025 Tobacco use panel [facility] National Score (1-10 0), lower number is lower risk 35 [facility] Start: 1955 Sex assigned at Not on file C [facility] Start: 01-14-2025 Gender identity Identifies as female gender (finding) [facility] Start: 01-14-2025 Sexual orientation Heterosexual (fin ding) [facility] Start: 05-31-2019 Alcohol Alcohol [facility] Start: 05-31-2019 Lives Lives [facility] Medical Equipment Procedure Code Equipment Code Equipment Origin al Text Equipment Identifier Dates Power Injectable Vaccess Ct Plastic 8f Chronoflex Catheter With Kit - [id number] Start: 01-10-2025 Mental Status Date Assessment Result Facility 02-27-2025 Cognitive function Level Of Cons ciousness Awake;Alert;Appropriate;Follow s Commands [facility] Work Phone: Clinical Notes 11-06-2022 to 02-27-2025 Telephone Encounter - Thais Cochran - 02/24/2025 3:02 PM EDTTelephone Encounter - Thais Cochran - 02/24/2025 3:02 PM EDTTelephone Encounter - Jennifer Burk RN - 02/24/2025 2:14 PM EDT Note Date & Type Note Facility 02-27-2025 Discharge summary [facility] 02-24-2025 Telephone encounter Note Thank you. [facility] Work Phone: 02-24-2025 Miscellaneous Notes Thank you. Patient will go onto adriamycin, cytoxan, keytruda, & neulasta Q21 days x 4 cycles. Jennifer Burk RN Please advise of treatment after 04/06. Appointment notes state after C4-4 of Q3WK CARBO/TAXOL/KEYTRUDA, patient should have Keytruda/Onpro only. [place] orders differ. Please advise for scheduling. Thank you. documented in this encounter [facility] 02-24-2025 Telephone encounter Note Patient will go onto adriamycin, cytoxan, keytruda, & neulasta Q21 days x 4 cycles. Jennifer Burk RN [facility] 02-24-2025 Telephone encounter Note Please advise of treatment after 04/06. Appointment notes state after C4-4 of Q3WK CARBO/TAXOL/KEYTRUDA, patient should have Keytruda/Onpro only. [place] orders differ. Please advise for scheduling. Thank you. [facility] 02-22-2025 Note HNO ID: [id number] Author: EMILIE LENNON MD Service: ? Author Type: Physician Type: Progress Notes Filed: 02/22/2025 16:13 Note Text: Liz Robles is a 69 year old female who presents for polyp on pelvic US. HPI: H/o breast cancer. Menopause at age 44. Denies vaginal bleeding or pelvic pain. Currently undergoing chemo for breat cancer with Dr. Martinez office. Had a pelvic ultrasound showing an endometrial polyp. Here to discuss management options. 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 hx of eye surgery FAMILY HISTORY Problem Relation Age of Onset Liver Disease Mother No Known Problems Father No Known Problems Brother Liver Cancer Maternal Grandmother No Known Problems Maternal Grandfather Breast Cancer Maternal Aunt Cervical Cancer Maternal Aunt then Vaginal ca Lung Cancer Maternal Uncle smoker Lung Cancer Maternal Uncle smoker Social History Tobacco Use Smoking status: Never Smokeless tobacco: Never Vaping Use Vaping status: Never Used Substance Use Topics Alcohol use: Not Currently Drug use: Not Currently Current Outpatient Medications Medication Sig gabapentin (NEURONTIN) 100 mg capsule Take 2 capsules by mouth three times a day for 30 days. lidocaine-prilocaine (EMLA) 2.5-2.5 % cream Apply 1 application to affected area as needed. acetaminophen (TYLENOL) 325 mg cap Take 2 capsules by mouth once daily as needed for pain. famotidine (PEPCID) 20 mg tablet Take 20 mg by mouth two times a day. prochlorperazine (COMPAZINE) 10 mg tablet Take 1 tablet by mouth every 6 hours as needed. lisinopril (ZESTRIL) 5 mg tablet Take 2.5 mg by mouth once daily. omeprazole (PRILOSEC) 40 mg capsule Take 40 mg by mouth once daily. (Patient not taking: Reported on 02/01/2025) No current facility-administered medications for this visit. Allergies As of Date: 02/22/2025 Allergen Noted Reaction [id number] REDUCTASE INHIBIT*12/13/2024 Myalgia Fully Assessed 02/22/2025 REVIEW OF SYSTEMS Expanded ROS: N/A Allergies and current medication updated:Yes SENSITIVE EXAM: Sensitive exam not performed. EXAM: BP 104/70 Wt 168 lb (76.2kg) GENERAL: pleasant, female in no apparent distress HEENT: Normocephalic and atraumatic CHEST: Normal inspiratory effort NEURO: exam grossly non-focal EXTREMITIES: normal ASSESSMENT AND PLAN: Assessment AND Plan Endometrial polyp Orders: CONSULT TO GYNECOLOGY History of breast cancer Reviewed pelvic ultrasound findings with patient and questions answered. Discussed r/b/a SIS, Endosee and EMB in office, vs hysteroscopy with polypectomy and DANDC at hospital. Patient desires to proceed with hysteroscopy, polypectomy, DANDC. Surgery sheet completed. Dates patient would like to avoid: May 06 - May 15 (vacation) History of breast cancer: Chemo scheduled up to end march. Will need to coordinate care with oncology. Emilie Lennon, Medical Decision Making: Problems: Moderate: New problem with uncertain prognosis Risk: Moderate: Decision on minor surgery w/ risk factors Medical Decision Making Level: 4 - Moderate [facility] 02-22-2025 History of Present illness Narrative Liz Robles is a 69 year old female who presents for polyp on pelvic US. HPI: H/o breast cancer. Menopause at age 44. Denies vaginal bleeding or pelvic pain. Currently undergoing chemo for breat cancer with Dr. Martinez office. Had a pelvic ultrasound showing an endometrial polyp. Here to discuss management options. 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 hx of eye surgery FAMILY HISTORY Problem Relation Age of Onset Liver Disease Mother No Known Problems Father No Known Problems Brother Liver Cancer Maternal Grandmother No Known Problems Maternal Grandfather Breast Cancer Maternal Aunt Cervical Cancer Maternal Aunt then Vaginal ca Lung Cancer Maternal Uncle smoker Lung Cancer Maternal Uncle smoker Social History Tobacco Use Smoking status: Never Smokeless tobacco: Never Vaping Use Vaping status: Never Used Substance Use Topics Alcohol use: Not Currently Drug use: Not Currently Current Outpatient Medications Medication Sig gabapentin (NEURONTIN) 100 mg capsule Take 2 capsules by mouth three times a day for 30 days. lidocaine-prilocaine (EMLA) 2.5-2.5 % cream Apply 1 application to affected area as needed. acetaminophen (TYLENOL) 325 mg cap Take 2 capsules by mouth once daily as needed for pain. famotidine (PEPCID) 20 mg tablet Take 20 mg by mouth two times a day. prochlorperazine (COMPAZINE) 10 mg tablet Take 1 tablet by mouth every 6 hours as needed. lisinopril (ZESTRIL) 5 mg tablet Take 2.5 mg by mouth once daily. omeprazole (PRILOSEC) 40 mg capsule Take 40 mg by mouth once daily. (Patient not taking: Reported on 02/01/2025) No current facility-administered medications for this visit. Allergies As of Date: 02/22/2025 Allergen Noted Reaction [id number] REDUCTASE INHIBIT*12/13/2024 Myalgia Fully Assessed 02/22/2025 REVIEW OF SYSTEMS Expanded ROS: N/A Allergies and current medication updated:Yes SENSITIVE EXAM: Sensitive exam not performed. EXAM: BP 104/70 Wt 168 lb (76.2kg) GENERAL: pleasant, female in no apparent distress HEENT: Normocephalic and atraumatic CHEST: Normal inspiratory effort NEURO: exam grossly non-focal EXTREMITIES: normal ASSESSMENT AND PLAN: Assessment & Plan Endometrial polyp Orders: CONSULT TO GYNECOLOGY History of breast cancer Reviewed pelvic ultrasound findings with patient and questions answered. Discussed r/b/a SIS, Endosee and EMB in office, vs hysteroscopy with polypectomy and D&C at hospital. Patient desires to proceed with hysteroscopy, polypectomy, D&C. Surgery sheet completed. Dates patient would like to avoid: May 06 - May 15 (vacation) History of breast cancer: Chemo scheduled up to end of March. Will need to coordinate care with oncology. Emilie Lennon DO Medical Decision Making: Problems: Moderate: New problem with uncertain prognosis Risk: Moderate: Decision on minor surgery w/ risk factors Medical Decision Making Level: 4 - Moderate documented in this encounter [facility] 02-21-2025 Telephone encounter Note Spoke to patient. Reviewed gabapentin instructions. Patient will continue cold socks/gloves. Jennifer Burk RN [facility] 02-21-2025 Miscellaneous Notes Spoke to patient. Reviewed gabapentin instructions. Patient will continue cold socks/gloves. Jennifer Burk RN Care Coordination Triage Note [facility] [place] Situation: Patient reports Other pain in her feet, rash Background: Breast. Paclitaxel, Carboplatin, & Keytruda Assessment: At first I thought it was plantar fascitis so she got new orthotics. Lasted for about a week. It sort've went away but it's still there. Patient stated the left sided foot pain started about a week after the 02/09 treatment. Patient stated she was using a cane for a couple of days d/t issues with walking, patient stated she is able to walk today. Patient stated she had swelling in her right leg after second treatment. Swelling lasted a day and then resolved. Denies redness in feet or legs. Patient stated when she came in for her last treatment, she had a little bit of swelling around her right ankle and a little puffy thing on the top of my foot right side. Patient stated the ankle swelling has improved. Patient stated the puffy area almost feels like the bone is bruised. Patient stated she is wearing a new pair of shoes and is wondering if the shoes caused this. GENERALIZED PAIN Where is the pain? The heel and ball of my foot When did you first notice the pain? The right side started after her very first treatment, January 18. How intense is the pain right now (scale of 1-10)? 3/10 currently, can go up to 8/10 How do you describe the pain: neuropathy pain numbing the pain in the heel and ball of foot is aching. Patient stated she has constant numbness in her toes and into the ball of the foot, R>L. Has the pain changed since it started? The pain feels the same but is now in both sides. Is the pain constant or intermittent? Constant if ambulating. If there is no pressure on the area, there is no pain. What makes it better? Rest and not applying pressure What makes it worse? Ambulating Have you had this pain before? Yes in her right foot 20+ years ago. What are you taking anything for the pain? Not taking any pain medications. Are you doing anything else to help with the pain other than medications? New orthotics, pressure stockings. Muscle weakness: denies weakness in legs or arms. Can walk up and down steps. Patient stated she is ambulating easier today. Fevers/chills: denies Rash: looking pretty nasty. Test Deck Supervisor gave her a stronger ointment to use. Patient stated the ointment from the tablet repair seems to be helping more with the itching. Patient isn't sure which cream she is using but can send us a message through . Patient stated she took a medrol dose pack 02/09. Developed left sided foot pain a week later. Recommendations: Per RNCC, patient directed to: Manage at home. Instructions provided. Will discuss with Dr. Michelle Burk RN February 21, 2025 11:25 AM documented in this encounter [facility] 02-21-2025 Telephone encounter Note Care Coordination Triage Note Cancer [place] Situation: Patient reports Other pain in her feet, rash Background: Breast. Paclitaxel, Carboplatin, & Keytruda Assessment: At first I thought it was plantar fascitis so she got new orthotics. Lasted for about a week. It sort've went away but it's still there. Patient stated the left sided foot pain started about a week after the 02/09 treatment. Patient stated she was using a cane for a couple of days d/t issues with walking, patient stated she is able to walk today. Patient stated she had swelling in her right leg after second treatment. Swelling lasted a day and then resolved. Denies redness in feet or legs. Patient stated when she came in for her last treatment, she had a little bit of swelling around her right ankle and a little puffy thing on the top of my foot right side. Patient stated the ankle swelling has improved. Patient stated the puffy area almost feels like the bone is bruised. Patient stated she is wearing a new pair of shoes and is wondering if the shoes caused this. GENERALIZED PAIN Where is the pain? The heel and ball of my foot When did you first notice the pain? The right side started after her very first treatment, January 18. How intense is the pain right now (scale of 1-10)? 3/10 currently, can go up to 8/10 How do you describe the pain: neuropathy pain numbing the pain in the heel and ball of foot is aching. Patient stated she has constant numbness in her toes and into the ball of the foot, R>L. Has the pain changed since it started? The pain feels the same but is now in both sides. Is the pain constant or intermittent? Constant if ambulating. If there is no pressure on the area, there is no pain. What makes it better? Rest and not applying pressure What makes it worse? Ambulating Have you had this pain before? Yes in her right foot 20+ years ago. What are you taking anything for the pain? Not taking any pain medications. Are you doing anything else to help with the pain other than medications? New orthotics, pressure stockings. Muscle weakness: denies weakness in legs or arms. Can walk up and down steps. Patient stated she is ambulating easier today. Fevers/chills: denies Rash: looking pretty nasty. Test Deck Supervisor gave her a stronger ointment to use. Patient stated the ointment from the tablet repair seems to be helping more with the itching. Patient isn't sure which cream she is using but can send us a message through . Patient stated she took a medrol dose pack 02/09. Developed left sided foot pain a week later. Recommendations: Per RNCC, patient directed to: Manage at home. Instructions provided. Will discuss with Dr. Michelle Burk RN February 21, 2025 11:25 AM [facility] 02-18-2025 Telephone encounter Note Spoke with patient. Agreeable to 02/22 with SW instead. Yesi Figueroa RN [facility] 02-18-2025 Miscellaneous Notes Spoke with patient. Agreeable to 02/22 with SW instead. Yesi Figueroa, RN Left message for patient to call office. She is new WHI with [facility] on 02/24. JOHANNA wanted to make sure patient was aware that she would not be the one doing her surgery. Wanted to offer 02/22 at 2:40pm with SW instead if she'd rather see a surgeon that could do surgery. I did place this slot on hold for now. If she'd rather keep appt with KJ that is fine too. She just wanted to make sure she knew she does not do surgeries. Elizabeth Cleaning RN documented in this encounter [facility] 02-18-2025 Telephone encounter Note Left message for patient to call office. She is new WHI with KJ on 02/24. JOHANNA wanted to make sure patient was aware that she would not be the one doing her surgery. Wanted to offer 02/22 at 2:40pm with SW instead if she'd rather see a surgeon that could do surgery. I did place this slot on hold for now. If she'd rather keep appt with KJ that is fine too. She just wanted to make sure she knew she does not do surgeries. Elizabeth Cleaning RN [facility] 02-09-2025 Note HNO ID: [id number] Author: EDEN BOOGIE RN Service: ? Author Type: Registered Nurse Type: Progress Notes Filed: 02/09/2025 10:43 Note Text: Patient states when my port was accessed yesterday, it burned and it kept burning after she took it out. Chest xray complete. Port with correct placement. c/o muscle spasm around port site this morning. Applied warm compress; pt reports improvement and denies any complaints at this time. [facility] 02-09-2025 History of Present illness Narrative Patient states when my port was accessed yesterday, it burned and it kept burning after she took it out. Chest xray complete. Port with correct placement. c/o muscle spasm around port site this morning. Applied warm compress; pt reports improvement and denies any complaints at this time. documented in this encounter [facility] 02-08-2025 History of Present illness Narrative Radiology Service Progress Note PATIENT NAME: Liz Robles DATE OF SERVICE: February 08, 2025 TIME: 8:29 PM PATIENT IDENTITY VERIFICATION COMPLETED USING TWO (2) IDENTIFIERS: Name and Date of confirmed by patient verbally. FALL SCREENING: Has the patient had 2 falls in the last year or 1 fall with injury or currently using an Ambulatory Assistive Device (Walker, Cane, Wheelchair, Crutches, etc.)? No PATIENT GENDER DATA: Assigned female at . status: : No status: NO. PATIENT RELEVANT IMPLANT DATA REVIEWED: Not Applicable PATIENT PRESENTS WITH AN IMPLANTABLE OR ATTACHED COMPUTER SYSTEM TECHNICIAN: No RADIOLOGY DEPARTMENT: General X-ray: Exam(s) Completed: Chest X-Ray PERIPHERAL IV DATA: Not applicable SIGNED BY: MERRY Sharp) February 08, 2025 8:29 PM documented in this encounter [facility] 02-08-2025 Note HNO ID: [id number] Author: THAIS SOLIS RT(R) Service: ? Author Type: Technologist Type: Progress Notes Filed: 02/08/2025 20:29 Note Text: Radiology Service Progress Note PATIENT NAME: Liz Robles DATE OF SERVICE: February 08, 2025 TIME: 8:29 PM PATIENT IDENTITY VERIFICATION COMPLETED USING TWO (2) IDENTIFIERS: Name and Date of confirmed by patient verbally. FALL SCREENING: Has the patient had 2 falls in the last year or 1 fall with injury or currently using an Ambulatory Assistive Device (Walker, Cane, Wheelchair, Crutches, etc.)? No PATIENT GENDER DATA: Assigned female at . status: : No status: NO. PATIENT RELEVANT IMPLANT DATA REVIEWED: Not Applicable PATIENT PRESENTS WITH AN IMPLANTABLE OR ATTACHED COMPUTER SYSTEM TECHNICIAN: No RADIOLOGY DEPARTMENT: General X-ray: Exam(s) Completed: Chest X-Ray PERIPHERAL IV DATA: Not applicable SIGNED BY: MERRY Sharp) February 08, 2025 8:29 PM [facility] 02-08-2025 Note HNO ID: [id number] Author: SONALI LOVE APRN.SURVEY RESEARCH MANAGER Service: ? Author Type: Nurse Practitioner Type: Progress Notes Filed: 02/09/2025 15:23 Note Text: Chief Complaint Patient presents with: Established Patient HPI: Liz Robles is a 69 year old female who presents here today for evaluation for treatment tomorrow. Per Dr. Martinez's previous note: H/o she appreciated a lump in the left breast about 2 months ago. She underwent bilateral mammogram on 11/26/2024. There was a 3 cm irregular focal asymmetry observed in the left breast at 9 o'clock position middle depth. Ultrasound demonstrated a 2.6 cm irregular hypoechoic mass within the left breast at the 10 o'clock position 4 to 5 cm from the nipple. Lymph nodes in the left axilla. Normal by ultrasound. Ultrasound-guided core needle biopsy with clip placement on 12/01/2024. Pathology: Invasive carcinoma with apocrine features at least [place] grade 2. ER/MS both negative. HER2 2+. Nonamplified on FISH testing. CT of the chest, abdomen pelvis on 12/14/2024 showed a near 2 and half centimeter left breast mass and a few less than 6 mm pulmonary nodules. There was an indeterminate 1.3 cm segment liver lesion. MRI was recommended for further characterization. +rash to arms and legs. Appetite:Good. Wt. down 6# since 01/04/25. Energy level:Good. Denies fevers. Mouth:denies sores Resp:denies cough or sob Cardiac:denies chest pain/palpitations GI:denies abd pain, n/v, occ. 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 Past medical history, appointments, medications, allergies reviewed. No changes. EXAM: BP 144/79 Pulse 84 Temp 36.8 ?C (98.2 ?F) (Temporal) Wt 73.5 kg (162 lb) LMP (LMP Unknown) SpO2 100% BMI 26.96 kg/m? APPEARANCE Well appearing, alert, in no acute distress, well-hydrated, well nourished. HEART RRR with normal S1 and S2, no murmurs LUNG clear to auscultation BREAST FEMALE L breast mass 2x2cm mobile LYMPH NODES No cervical lymphadenopathy, No supraclavicular lymphadenopathy, and No axillary lymphadenopathy. ABDOMEN bowel sounds normoactive, soft, non-tender EXTREMITIES No edema NEURO Awake, alert and oriented x 3, Normal gait, and No involuntary motions. LABS: Latest Ref Rng 01/25/2025 02/01/2025 02/08/2025 WBC 3.70 - 11.00 k/uL 3.56 (L) 2.93 (L) 3.19 (L) RBC 3.90 - 5.20 m/uL 4.04 3.99 3.82 (L) Hemoglobin 11.5 - 15.5 g/dL 13.3 13.1 12.7 Hematocrit 36.0 - 46.0 % 38.3 37.8 36.1 MCV 80.0 - 100.0 fL 94.8 94.7 94.5 MCH 26.0 - 34.0 pg 32.9 32.8 33.2 MCHC 30.5 - 36.0 g/dL 34.7 34.7 35.2 RDW-CV 11.5 - 15.0 % 11.1 (L) 11.2 (L) 11.4 (L) Platelet Count 150 - 400 k/uL 200 216 241 MPV 9.0 - 12.7 fL 9.7 9.3 9.1 Neut% % 53.6 42.5 40.8 Abs Neut (ANC) 1.45 - 7.50 k/uL 1.91 1.24 (L) 1.30 (L) Lymph% % 36.0 49.8 50.8 Abs Lymph 1.00 - 4.00 k/uL 1.28 1.46 1.62 [place]% % 4.8 4.4 5.6 Abs [place] <0.87 k/uL 0.17 0.13 0.18 Eosin% % 3.9 2.0 0.9 Abs Eosin <0.46 k/uL 0.14 0.06 0.03 Baso% % 1.1 1.0 1.3 Abs Baso <0.11 k/uL 0.04 0.03 0.04 Immature Gran % % 0.6 0.3 0.6 IMMATURE GRANS (ABS) <0.10 k/uL <0.03 <0.03 <0.03 NRBC /100 WBC 0.0 0.0 0.0 Absolute nRBC <0.01 k/uL <0.01 <0.01 <0.01 DTYPE Auto Auto Auto CMP/Mag/TSH/T4/Cortisol: Pending ASSESSMENT/PLAN: 1. Malignant neoplasm of upper-inner quadrant of left breast in female, estrogen receptor negative (HCC) - ICD9: 174.2, V86.1, ICD10: C50.212, Z17.1 Clinical stage from 01/04/2025: Stage IIB (cT2, cN0, cM0, G2, ER-, MS-, HER2-) - Signed by Orville Martinez DO on 01/04/[address] 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 - I reviewed the pathology with the patient and her . Although she has not yet had MRI of the liver, I recommended neoadjuvant chemoimmunotherapy with the KEYNOTE 522 regimen. Discussed that the goals of care are an increase in overall survival. - I discussed the rationale, logistics, potential risks (including but not limited to fatigue, alopecia, neuropathy, cardiomyopathy, leukemia, infections, autoimmune side effects and the small potential for as a consequence of severe toxicity/complications of therapy), benefits and alternatives, as well as the personnel involved in the administration of carboplatin and paclitaxel along with pembrolizumab on a weekly schedule x 12 followed by Adriamycin and cyclophosphamide with pembrolizumab every 3 weeks x 4 cycles. I answered her questions in detail and she verbalized understanding and agreed with the recommended therapy. Please see the electronic consent document for details of doses and schedule. Plan: - Baseline echocardiogram prior to (more content not included)... [facility] 02-08-2025 History of Present illness Narrative Chief Complaint Patient presents with: Established Patient HPI: Liz Robles is a 69 year old female who presents here today for evaluation for treatment tomorrow. Per Dr. Martinez's previous note: H/o she appreciated a lump in the left breast about 2 months ago. She underwent bilateral mammogram on 11/26/2024. There was a 3 cm irregular focal asymmetry observed in the left breast at 9 o'clock position middle depth. Ultrasound demonstrated a 2.6 cm irregular hypoechoic mass within the left breast at the 10 o'clock position 4 to 5 cm from the nipple. Lymph nodes in the left axilla. Normal by ultrasound. Ultrasound-guided core needle biopsy with clip placement on 12/01/2024. Pathology: Invasive carcinoma with apocrine features at least [place] grade 2. ER/MS both negative. HER2 2+. Nonamplified on FISH testing. CT of the chest, abdomen pelvis on 12/14/2024 showed a near 2 and half centimeter left breast mass and a few less than 6 mm pulmonary nodules. There was an indeterminate 1.3 cm segment liver lesion. MRI was recommended for further characterization. +rash to arms and legs. Appetite:Good. Wt. down 6# since 01/04/25. Energy level:Good. Denies fevers. Mouth:denies sores Resp:denies cough or sob Cardiac:denies chest pain/palpitations GI:denies abd pain, n/v, occ. 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 Past medical history, appointments, medications, allergies reviewed. No changes. EXAM: BP 144/79 Pulse 84 Temp 36.8 C (98.2 F) (Temporal) Wt 73.5 kg (162 lb) LMP (LMP Unknown) SpO2 100% BMI 26.96 kg/m APPEARANCE Well appearing, alert, in no acute distress, well-hydrated, well nourished. HEART RRR with normal S1 and S2, no murmurs LUNG clear to auscultation BREAST FEMALE L breast mass 2x2cm mobile LYMPH NODES No cervical lymphadenopathy, No supraclavicular lymphadenopathy, and No axillary lymphadenopathy. ABDOMEN bowel sounds normoactive, soft, non-tender EXTREMITIES No edema NEURO Awake, alert and oriented x 3, Normal gait, and No involuntary motions. LABS: Latest Ref Rng 01/25/2025 02/01/2025 02/08/2025 WBC 3.70 - 11.00 k/uL 3.56 (L) 2.93 (L) 3.19 (L) RBC 3.90 - 5.20 m/uL 4.04 3.99 3.82 (L) Hemoglobin 11.5 - 15.5 g/dL 13.3 13.1 12.7 Hematocrit 36.0 - 46.0 % 38.3 37.8 36.1 MCV 80.0 - 100.0 fL 94.8 94.7 94.5 MCH 26.0 - 34.0 pg 32.9 32.8 33.2 MCHC 30.5 - 36.0 g/dL 34.7 34.7 35.2 RDW-CV 11.5 - 15.0 % 11.1 (L) 11.2 (L) 11.4 (L) Platelet Count 150 - 400 k/uL 200 216 241 MPV 9.0 - 12.7 fL 9.7 9.3 9.1 Neut% % 53.6 42.5 40.8 Abs Neut (ANC) 1.45 - 7.50 k/uL 1.91 1.24 (L) 1.30 (L) Lymph% % 36.0 49.8 50.8 Abs Lymph 1.00 - 4.00 k/uL 1.28 1.46 1.62 [place]inton% % 4.8 4.4 5.6 Abs [place] <0.87 k/uL 0.17 0.13 0.18 Eosin% % 3.9 2.0 0.9 Abs Eosin <0.46 k/uL 0.14 0.06 0.03 Baso% % 1.1 1.0 1.3 Abs Baso <0.11 k/uL 0.04 0.03 0.04 Immature Gran % % 0.6 0.3 0.6 IMMATURE GRANS (ABS) <0.10 k/uL <0.03 <0.03 <0.03 NRBC /100 WBC 0.0 0.0 0.0 Absolute nRBC <0.01 k/uL <0.01 <0.01 <0.01 DTYPE Auto Auto Auto CMP/Mag/TSH/T4/Cortisol: Pending ASSESSMENT/PLAN: 1. Malignant neoplasm of upper-inner quadrant of left breast in female, estrogen receptor negative (HCC) - ICD9: 174.2, V86.1, ICD10: C50.212, Z17.1 Clinical stage from 01/04/2025: Stage IIB (cT2, cN0, cM0, G2, ER-, MS-, HER2-) - Signed by Orville Martinez DO on 01/04/[address] 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 - I reviewed the pathology with the patient and her . Although she has not yet had MRI of the liver, I recommended neoadjuvant chemoimmunotherapy with the KEYNOTE 522 regimen. Discussed that the goals of care are an increase in overall survival. - I discussed the rationale, logistics, potential risks (including but not limited to fatigue, alopecia, neuropathy, cardiomyopathy, leukemia, infections, autoimmune side effects and the small potential for as a consequence of severe toxicity/complications of therapy), benefits and alternatives, as well as the personnel involved in the administration of carboplatin and paclitaxel along with pembrolizumab on a weekly schedule x 12 followed by Adriamycin and cyclophosphamide with pembrolizumab every 3 weeks x 4 cycles. I answered her questions in detail and she verbalized understanding and agreed with the recommended therapy. Please see the electronic consent document for details of doses and schedule. Plan: - Baseline echocardiogram prior to AC. - Port placement. - Follow-up on results of MRI Breast and Liver. - Genetic testing. - Repeat CT chest after completion of carboplatin and paclitaxel. - Repeat MRI Breast when completes NACT. - Endometrial US. - Tolerating treatment well except for rash. - Reviewed CBC/CMP/Mag with pt. - TSH/T4/Cortisol pending. - Medrol dose pack. - CXR for port placement. - Proceed as scheduled tomorrow for #2 Carbo/taxol/keytruda pending all labs. - Follow up as scheduled. - Pt. aware to call office with any questions/concerns. The patient indicates understanding of these issues and agrees with the plan. All documentation from previous visit of 01/04/25-Dr. Martinez was copied and pasted, documentation has been reviewed and edited as necessary for today's visit. Sonali Love APRN.SURVEY RESEARCH MANAGER documented in this encounter [facility] 02-04-2025 Telephone encounter Note PSYCHOSOCIAL SCREENING ASSESSMENT Date of Service: February 04, 2025 Liz Robles is a 69 year old female being seen for initial social work assessment. 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 New Primary Oncologist: Orville Martinez DO Radiation Oncologist: ABI Goals of Care: Curative intent Today's visit includes: self/patient Family History of Cancer: Maternal Aunt: Breat, Maternal Aunt: Cervical, Maternal Uncle: Lung, Maternal Uncle: Lung SUPPORT NETWORK: Social Connections: Not on file Marital status: Parent(s): Child/Children: Yes. cardiac care unit nurse arrangements needed: No Siblings: 1 brothers Home Health Provider: No Community Services: No Antoinette Identified: Yes Jain/Spirituality: Voodoo Are these practices or beliefs that may affect or influence treatment? 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 Income source: Social Security incremental income (SSI) and Income Insurance: Medicare with co-insurance Prescription coverage: Yes Is the patient appropriate for referral to [facility] COBRA Assistance program? No Financial Distress: No [place]: No FOOD INSECURITY Within the past year, have you worried about how you would buy or obtain food? No LIVING ARRANGEMENTS: Type: House- independent colonial Resides with: , Artem Transportation Needs: Not on file FUNCTIONAL STATUS: Cognitive limitations: none Physical limitations: none Language barrier: No Hearing Impaired: No Speech Impaired: No Visual Impairments: No Special considerations/accommodations needed: No HEALTH LITERACY: Do you have difficulty understanding medical instructions or other written materials you receive from you doctor or pharmacy? No Do have difficulty filling out medical forms by yourself? No The following interventions were put into place: NA MEDICATION ADHERENCE: Within the past 2 weeks, have you had difficulty remembering to take your medicine? No Within the past 2 weeks, did you ever miss taking your medications for reasons other than forgetting? No The following interventions were put into place: NA MENTAL HEALTH HISTORY: No History of combat/trauma: No Intimate Partner Violence: Not At Risk (01/10/2025) Safe at Home? Fear of Current or Ex-Partner: Not on file Emotionally Abused: Not on file Physically Abused: Not on file Sexually Abused: Not on file Safe at Home?: Yes Substance Use and Treatment History: denied History of Abuse: No Issues with: Sleep:No Eating:No Exercising: No Stress Management: No ADVANCE DIRECTIVES/LEGAL DOCUMENTS: Living Will: No and provided POA information for patient to review Scanned into EPIC: No Health Care Durable Power of Menu Planner: No and provided Living Will information for patient to review Scanned into EPIC: No Guardianship: No Scanned into EPIC:NA Reasons Advanced Directives were not Addressed: Patient not interested due to spouse/next of kin is medical decision maker Advance Care Planning Goals of Care Date of Discussion: 02/04/2025 DIscussion Participants: Liz Robles Clinical: SHANICE Nina In this encounter: Explained the [place] Order of Decision Makers and patient expressed understanding. and Patient shared they would like , Artem Robles, to make health care decisions for them if they are not able to themselves. COPING STATUS: Stress: Not on file Coping Strengths: supportive relationships with immediate family, with friends, with extended family, with neighbors, and with adventism spirituality successful managing past crises hopefulness self advocate strong problem-solving skills ability to plan able to follow direction consistently over time able to communicate effectively future oriented and able to identify goals Current affect/mood: appropriate and hopeful History of Loss: Yes Adjustment to diagnosis: reflecting understanding, responding appropriately, and accepting help BARRIERS/CARE CHALLENGES: None Are barriers/care challenges identified likely to have an impact on the patient's quality of life during treatment? NA INTERVENTIONS/REFERRALS TO BE PROVIDED: Monitor patient response to treatment Communicate pertinent medical/psychosocial information to Cancer Center team Continue follow up as needed Resources and Referrals: Internal: [facility] - Discussed with pt, she reports she does not wish to engage in the program at this time as she is worried she may gt connected with a mentor who had a negative experience. She reports she would like to focus on her own recovery and make it as positive as possible. Pt reports she may reconsider the program in the future. External: [facility] and [facility] [place] CLINICAL IMPRESSION: Liz is a 69 year old female beginning treatment for triple negative breast cancer. She reports she has no side effects from treatments she's received so far. Pt denies any fatigue, n/v, or any other concerns. She does report that she shaved her head this week as her hair was coming out by the hand full. Pt does report that was a bit of an emotional experience however report she is overall very optimistic about her treatment. Pt reports she receives support from her , daughter, friends, adventism family and neighbors. Pt reports she relies on her Buddhist antoinette a lot during this time and reports she believes her lack of side effects is d/t prayer. She reports she has received a significant number of phone calls from people in the adventism as well as her family checking on her and letting her know how much they care. Pt reports the outpouring of support has been overwhelming and humbling. Pt reports she continues to work 3 days per week and has been able to maintain her life as it was prior to beginning treatment. 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 She is hopeful that she will be able to continue with her life as normal as she continues with treatment. Pt declines any concerns financially, emotionally, or with transportation. She reports she was informed by financial navigation that her treatment will be 100% covered. SW oriented pt to SW role and explained all available resources/referrals. Pt declined any further needs at this time and agreed to reach out to SW if needs arise. Psychosocial Risk Criteria If positive for one or more of the following risk criteria, follow up every 30 days Age: >70 Mental Health: NA Practical Needs: N/A PLAN: SW to follow pt at upcoming appointments and remain in contact with pt throughout treatment to address any psychosocial concerns if needed. Follow up appointment with SW in: PRN Assigned SW listed in Care Team tab: Yes SHANICE Nina [facility] 02-04-2025 Miscellaneous Notes PSYCHOSOCIAL SCREENING ASSESSMENT Date of Service: February 04, 2025 Liz Robles is a 69 year old female being seen for initial social work assessment. 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 New Primary Oncologist: Orville Martinez DO Radiation Oncologist: NA Goals of Care: Curative intent Today's visit includes: self/patient Family History of Cancer: Maternal Aunt: Breat, Maternal Aunt: Cervical, Maternal Uncle: Lung, Maternal Uncle: Lung SUPPORT NETWORK: Social Connections: Not on file Marital status: Parent(s): Child/Children: Yes. cardiac care unit nurse arrangements needed: No Siblings: 1 brothers Home Health Provider: No Community Services: No Antoinette Identified: Yes Jain/Spirituality: Voodoo Are these practices or beliefs that may affect or influence treatment? 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 Income source: Social Security incremental income (SSI) and Income Insurance: Medicare with co-insurance Prescription coverage: Yes [facility] the [facility] No Financial Distress: No : No FOOD INSECURITY Within the past year, have you worried about how you would buy or obtain food? No LIVING ARRANGEMENTS: Type: House- independent colonial Resides with: , Artem Transportation Needs: Not on file FUNCTIONAL STATUS: Cognitive limitations: none Physical limitations: none Language barrier: No Hearing Impaired: No Speech Impaired: No Visual Impairments: No Special considerations/accommodations needed: No HEALTH LITERACY: Do you have difficulty understanding medical instructions or other written materials you receive from you doctor or pharmacy? No Do have difficulty filling out medical forms by yourself? No The following interventions were put into place: NA MEDICATION ADHERENCE: Within the past 2 weeks, have you had difficulty remembering to take your medicine? No Within the past 2 weeks, did you ever miss taking your medications for reasons other than forgetting? No The following interventions were put into place: NA MENTAL HEALTH HISTORY: No History of combat/trauma: No Intimate Partner Violence: Not At Risk (01/10/2025) Safe at Home? Fear of Current or Ex-Partner: Not on file Emotionally Abused: Not on file Physically Abused: Not on file Sexually Abused: Not on file Safe at Home?: Yes Substance Use and Treatment History: denied History of Abuse: No Issues with: Sleep:No Eating:No Exercising: No Stress Management: No ADVANCE DIRECTIVES/LEGAL DOCUMENTS: Living Will: No and provided POA information for patient to review Scanned into [place]: No Health Care Durable Power of Menu Planner: No and provided Living Will information for patient to review Scanned into EPIC: No Guardianship: No Scanned into EPIC:NA Reasons Advanced Directives were not Addressed: Patient not interested due to spouse/next of kin is medical decision maker Advance Care Planning Goals of Care Date of Discussion: 02/04/2025 DIscussion Participants: Liz Robles Clinical: SHANICE Nina In this encounter: Explained the [place] Order of Decision Makers and patient expressed understanding. and Patient shared they would like , Artem Robles, to make health care decisions for them if they are not able to themselves. COPING STATUS: Stress: Not on file Coping Strengths: supportive relationships with immediate family, with friends, with extended family, with neighbors, and with adventism spirituality successful managing past crises hopefulness self advocate strong problem-solving skills ability to plan able to follow direction consistently over time able to communicate effectively future oriented and able to identify goals Current affect/mood: appropriate and hopeful History of Loss: Yes Adjustment to diagnosis: reflecting understanding, responding appropriately, and accepting help BARRIERS/CARE CHALLENGES: None Are barriers/care challenges identified likely to have an impact on the patient's quality of life during treatment? NA INTERVENTIONS/REFERRALS TO BE PROVIDED: Monitor patient response to treatment Communicate pertinent medical/psychosocial information to Cancer Center team Continue follow up as needed Resources and Referrals: Internal: [facility] - Discussed with pt, she reports she does not wish to engage in the program at this time as she is worried she may gt connected with a mentor who had a negative experience. She reports she would like to focus on her own recovery and make it as positive as possible. Pt reports she may reconsider the program in the future. External: [facility] [place] CLINICAL IMPRESSION: Liz is a 69 year old female beginning treatment for triple negative breast cancer. She reports she has no side effects from treatments she's received so far. Pt denies any fatigue, n/v, or any other concerns. She does report that she shaved her head this week as her hair was coming out by the hand full. Pt does report that was a bit of an emotional experience however report she is overall very optimistic about her treatment. Pt reports she receives support from her , daughter, friends, adventism family and neighbors. Pt reports she relies on her Buddhist antoinette a lot during this time and reports she believes her lack of side effects is d/t prayer. She reports she has received a significant number of phone calls from people in the adventism as well as her family checking on her and letting her know how much they care. Pt reports the outpouring of support has been overwhelming and humbling. Pt reports she continues to work 3 days per week and has been able to maintain her life as it was prior to beginning treatment. 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 She is hopeful that she will be able to continue with her life as normal as she continues with treatment. Pt declines any concerns financially, emotionally, or with transportation. She reports she was informed by financial navigation that her treatment will be 100% covered. SW oriented pt to SW role and explained all available resources/referrals. Pt declined any further needs at this time and agreed to reach out to SW if needs arise. Psychosocial Risk Criteria If positive for one or more of the following risk criteria, follow up every 30 days Age: >70 Mental Health: NA Practical Needs: N/A PLAN: SW to follow pt at upcoming appointments and remain in contact with pt throughout treatment to address any psychosocial concerns if needed. Follow up appointment with SW in: PRN Assigned SW listed in Care Team tab: Yes SHANICE Nina documented in this encounter [facility] 02-03-2025 Telephone encounter Note Schedule updated [facility] Work Phone: 02-03-2025 Miscellaneous Notes Schedule updated Spoke with pharmacist, Harpreet Lopez. D1 should be 3-4 hours and D8, D15 are 2 hours. Elise Meier RN Patient called to schedule April treatments.She advised her D! Should not be 7 hrs that it takes no more than 3 hrs. Please advise Sylwia Sanchez documented in this encounter [facility] 01-26-2025 Telephone encounter Note Spoke with pharmacist, Harpreet Lopez. D1 should be 3-4 hours and D8, D15 are 2 hours. Elise Meier RN [facility] Work Phone: 01-26-2025 Telephone encounter Note Patient called to schedule April treatments.She advised her D! Should not be 7 hrs that it takes no more than 3 hrs. Please advise Sylwia Sanchez [facility] 01-21-2025 Telephone encounter Note Spoke with pt. Informed Tylenol for the pain, If over the weekend she notices any pus coming from anywhere around the port that she should go to the ER. Pt. Voiced understanding. Fiordaliza Gonzales LPN [facility] 01-21-2025 Miscellaneous Notes Spoke with pt. Informed Tylenol for the pain, If over the weekend she notices any pus coming from anywhere around the port that she should go to the ER. Pt. Voiced understanding. Fiordaliza Gonzales LPN Agree. Tylenol for pain control. ED evaluation if over the weekend she sees any pus coming from anywhere around the port. Doubt that will happen. I think it is just healing itself and right now. Orville Martinez DO Care Coordination Triage Note Cancer [place] Situation: Patient reports Other pain at port site Background: Breast cancer on Carbo/Taxol/Keytruda, start date 01/18/25 Assessment: Call to patient, states port site is throbbing and achy, no constant and more so during the day, rates 4/10, no swelling, warmth at site, pain not radiating out from port. She is asking if ok to take something for pain. Advised Tylenol per box instructions. No fever or chills. Port site splitter tender, was placed on 01/10/25, stiches did fall out, was tender when used for treatment on 01/18/25 but states look better than it did on , bruising and redness better, using a band-aid on site to decrease friction from clothing. Patient aware that I will update Dr. Martinez. Reminded of after hours number and reviewed sign/symptoms to call about. Recommendations: Per RNCC, patient directed to: Manage at home. Instructions provided. Will update Dr. Martinez and call back if any further instructions. Lilly Meier RN January 21, 2025 1:46 PM Patient calls stating she has a throbbing ache from her port. She is asking if this is okay and what she can take for it. Please advise. documented in this encounter [facility] 01-21-2025 Telephone encounter Note Agree. Tylenol for pain control. ED evaluation if over the weekend she sees any pus coming from anywhere around the port. Doubt that will happen. I think it is just healing itself and right now. Orville Martinez DO [facility] 01-21-2025 Telephone encounter Note Care Coordination Triage Note Cancer [place] Situation: Patient reports Other pain at port site Background: Breast cancer on Carbo/Taxol/Keytruda, start date 01/18/25 Assessment: Call to patient, states port site is throbbing and achy, no constant and more so during the day, rates 4/10, no swelling, warmth at site, pain not radiating out from port. She is asking if ok to take something for pain. Advised Tylenol per box instructions. No fever or chills. Port site splitter tender, was placed on 01/10/25, stiches did fall out, was tender when used for treatment on 01/18/25 but states look better than it did on , bruising and redness better, using a band-aid on site to decrease friction from clothing. Patient aware that I will update Dr. Martinez. Reminded of after hours number and reviewed sign/symptoms to call about. Recommendations: Per RNCC, patient directed to: Manage at home. Instructions provided. Will update Dr. Martinez and call back if any further instructions. Lilly Meier RN January 21, 2025 1:46 PM [facility] Work Phone: 01-21-2025 Telephone encounter Note Patient calls stating she has a throbbing ache from her port. She is asking if this is okay and what she can take for it. Please advise. [facility] Work Phone: 01-19-2025 Telephone encounter Note CYCLE 1/DAY 1 POST TREATMENT CALL Today's date: January 19, 2025 Treatment Regimen: Carboplatin/Taxol/Keytruda C1D1 Date: 01/18/25 Called patient to follow-up on symptom management. Spoke with patient I feel normal today. SYMPTOM ASSESSMENT Neuro: Denies headache or dizziness. CV/Resp: Patient stated she was walking today and felt a little bit of pressure go across my chest and went down my arm and then it went away. Lasted maybe 5 minutes, pain went down right arm armpit to elbow. Denies jaw/shoulder pain or an elephant sitting on her chest. Denies difficulty breathing, SOB, or pain with breathing. Patient stated this is not the first time this has happened. Patient stated sometimes when she first gets up to walk she gets this feeling and then it resolves. Patient stated she has been worked up by cardiology in the past and everything has been fine. Discussed s/s of when to contact our office. GI/: None Denies N/V/D Integument: Facial Flushing -discussed s/s to monitor/call Activity: Patient reported no changes in energy level, energy level good Pain: Yes, I get a sharp pain in the tumor but I get those periodically. Started a month ago, intermittent and 5/10. Fever: No Chills: No Any new referrals needed? No Reinforced CURRENT treatment education based on current and anticipated symptoms. Discussed port/line care and patient verbalizes understanding: Yes Patient instructed to contact office or after hours Hematology/Oncology fellow for: temperature >= 100.4; questions or concerns. Patient verbalized understanding of when to seek medical attention and after hours number protocol. Jennifer Burk RN [facility] 01-19-2025 Miscellaneous Notes CYCLE 1/DAY 1 POST TREATMENT CALL Today's date: January 19, 2025 Treatment Regimen: Carboplatin/Taxol/Keytruda C1D1 Date: 01/18/25 Called patient to follow-up on symptom management. Spoke with patient I feel normal today. SYMPTOM ASSESSMENT Neuro: Denies headache or dizziness. CV/Resp: Patient stated she was walking today and felt a little bit of pressure go across my chest and went down my arm and then it went away. Lasted maybe 5 minutes, pain went down right arm armpit to elbow. Denies jaw/shoulder pain or an elephant sitting on her chest. Denies difficulty breathing, SOB, or pain with breathing. Patient stated this is not the first time this has happened. Patient stated sometimes when she first gets up to walk she gets this feeling and then it resolves. Patient stated she has been worked up by cardiology in the past and everything has been fine. Discussed s/s of when to contact our office. GI/: None Denies N/V/D Integument: Facial Flushing -discussed s/s to monitor/call Activity: Patient reported no changes in energy level, energy level good Pain: Yes, I get a sharp pain in the tumor but I get those periodically. Started a month ago, intermittent and 5/10. Fever: No Chills: No Any new referrals needed? No Reinforced CURRENT treatment education based on current and anticipated symptoms. Discussed port/line care and patient verbalizes understanding: Yes Patient instructed to contact office or after hours Hematology/Oncology fellow for: temperature >= 100.4; questions or concerns. Patient verbalized understanding of when to seek medical attention and after hours number protocol. Jennifer Burk RN Patient returned call. Care coord line leonel ferrell CYCLE 1/DAY 1 POST TREATMENT CALL Today's date: January 19, 2025 Treatment Regimen: Carboplatin/Paclitaxel/Keytruda C1D1 Date: 01/18/25 Called patient to follow-up on symptom management, no answer. Left a requesting a call back from patient. Jennifer Burk RN documented in this encounter [facility] 01-19-2025 Telephone encounter Note Patient returned call. Care coord line leonel ferrell [facility] Work Phone: 01-19-2025 Telephone encounter Note CYCLE 1/DAY 1 POST TREATMENT CALL Today's date: January 19, 2025 Treatment Regimen: Carboplatin/Paclitaxel/Keytruda C1D1 Date: 01/18/25 Called patient to follow-up on symptom management, no answer. Left a VM requesting a call back from patient. Jennifer Burk, RN [facility] 01-18-2025 Telephone encounter Note Pt notified. Dania Mireles LPN [facility] 01-18-2025 Miscellaneous Notes Pt notified. Dania Mireles LPN Scheduled first avail with Commission Broker - 03/04. Patient will informed while here for treatment today 01/18. Patient is aware of ultrasound results. PSS- please contact patient to schedule with AWARD MACHINE OPERATOR here. Winsome Gonzales LPN The ultrasound of her uterus showed a endometrial polyp. This will need to be evaluated by gynecology. Referral order filed. Orville Martinez DO documented in this encounter [facility] 01-18-2025 Telephone encounter Note Scheduled first avail with Commission Broker - 03/04. Patient will informed while here for treatment today 01/18. [facility] Work Phone: 01-17-2025 Telephone encounter Note Patient is aware of ultrasound results. PSS- please contact patient to schedule with AWARD MACHINE OPERATOR here. Winsome Gonzales LPN [facility] 01-17-2025 Telephone encounter Note The ultrasound of her uterus showed a endometrial polyp. This will need to be evaluated by gynecology. Referral order filed. Orville Martinez DO [facility] 01-17-2025 Note HNO ID: [id number] Author: JENNIFER BURK RN Service: ? Author Type: Registered Nurse Type: Progress Notes Filed: 01/17/2025 12:01 Note Text: This visit was completed by phone. Curriculum Developer Pre Chemo Patient identified by name and date of . YES Confirmed date and time for chemotherapy ? YES Other appointments (labs, imaging) discussed? YES Discussed where to park (public finance specialist), charge for parking YES Discussed where to report (building/floor) YES Any pre-medications ordered? NO Described the infusion room and what to expect. (What to wear, what to bring [iPad, books] amount of time treatment can take, meals and CC options for food) YES Note: Discussed whether the patient can eat prior to labs and treatment. YES Who is driving you to and from treatment? 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 Discussed why it is important to bring someone with you. Yes, for the first treatment. Resources discussed (music therapy, Art therapy, pet therapy, etc.) NO Education on chemotherapy (drug, side effects) discussed and that the patient will be receiving a C1D1 call within 7 days of treatment. YES Other topics discussed, interventions needed: Jennifer Burk RN ONCOLOGY PATIENT EDUCATION NOTE TOPIC: Chemotherapy/Immunotherapy, Medications: Keynote 522 patient called today for education for treatment of Breast Cancer Anticipated/Scheduled start date: 01/18/25 READINESS TO LEARN: COGNITIVE ABILITY: Alert and oriented MOTIVATION TO LEARN: Interested FAMILY SUPPORT: Unable to assess - Family not present INSTRUCTION PROVIDED TO: Patient INSTRUCTION PROVIDED BY: Nurse Coordinator PATIENT LEARNS BEST BY: Multiple Methods FACTORS AFFECTING LEARNING: None PHYSICAL LIMITATIONS AFFECTING LEARNING: None LEARNING RESPONSE METHOD OF INSTRUCTION: Individual instruction Written instruction/Handouts Verbal instruction PATIENT/FAMILY RESPONSE: Verbalizes understanding of: CHEMOTHERAPY-Regimen, toxicity and side effects FOLLOW UP PLAN: Patient instructed to call with any further issues Recommend - Recommend continued instruction and follow up as directed Follow up phone call. Contact information given. SUPPLEMENTAL MATERIAL: Written material was provided at this visit with the following information: - Chemotherapy/Immunotherapy education was provided by a pharmacist NO - Side effect management information was provided/discussed including but not limited to: anemia, appetite changes, arthralgia, bowel habit changes, diet, electrolyte disturbances, fatigue, hair loss, hypersensitivity reaction, infection, mouth hygiene, nausea/vomitting, neuropathy, peripheral neuropathy, rash, skin changes, taste changes, thrombocytopenia YES - Provided important phone numbers and contacts during and after hours. YES - Provided information on symptoms that require immediate assistance. YES - Provided Chemotherapy Immunotherapy when to call handouts YES - Preventing infection. YES - Treatment schedule and confirmation of appointment times. YES - Available support groups. YES - The importance of contraception during the course of chemotherapy YES - Neutropenic fever protocol discussed with patient, which included the importance of reporting any fever of 100.4F (38.0C) or greater to the healthcare team as noted on the provided wallet card and/or magnet. YES Time Spent: 60 minutes REFERRAL (RECOMMENDATION): N/A Jennifer Burk RN [facility] 01-17-2025 History of Present illness Narrative This visit was completed by phone. Curriculum Developer Pre Chemo Patient identified by name and date of . YES Confirmed date and time for chemotherapy ? YES Other appointments (labs, imaging) discussed? YES Discussed where to park (public finance specialist), charge for parking YES Discussed where to report (building/floor) YES Any pre-medications ordered? NO Described the infusion room and what to expect. (What to wear, what to bring [iPad, books] amount of time treatment can take, meals and CC options for food) YES Note: Discussed whether the patient can eat prior to labs and treatment. YES Who is driving you to and from treatment? 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 Discussed why it is important to bring someone with you. Yes, for the first treatment. Resources discussed (music therapy, Art therapy, pet therapy, etc.) NO Education on chemotherapy (drug, side effects) discussed and that the patient will be receiving a C1D1 call within 7 days of treatment. YES Other topics discussed, interventions needed: Jennifer Burk RN ONCOLOGY PATIENT EDUCATION NOTE TOPIC: Chemotherapy/Immunotherapy, Medications: Keynote 522 patient called today for education for treatment of Breast Cancer Anticipated/Scheduled start date: 01/18/25 READINESS TO LEARN: COGNITIVE ABILITY: Alert and oriented MOTIVATION TO LEARN: Interested FAMILY SUPPORT: Unable to assess - Family not present INSTRUCTION PROVIDED TO: Patient INSTRUCTION PROVIDED BY: Nurse Coordinator PATIENT LEARNS BEST BY: Multiple Methods FACTORS AFFECTING LEARNING: None PHYSICAL LIMITATIONS AFFECTING LEARNING: None LEARNING RESPONSE METHOD OF INSTRUCTION: Individual instruction Written instruction/Handouts Verbal instruction PATIENT/FAMILY RESPONSE: Verbalizes understanding of: CHEMOTHERAPY-Regimen, toxicity and side effects FOLLOW UP PLAN: Patient instructed to call with any further issues Recommend - Recommend continued instruction and follow up as directed Follow up phone call. Contact information given. SUPPLEMENTAL MATERIAL: Written material was provided at this visit with the following information: - Chemotherapy/Immunotherapy education was provided by a pharmacist NO - Side effect management information was provided/discussed including but not limited to: anemia, appetite changes, arthralgia, bowel habit changes, diet, electrolyte disturbances, fatigue, hair loss, hypersensitivity reaction, infection, mouth hygiene, nausea/vomitting, neuropathy, peripheral neuropathy, rash, skin changes, taste changes, thrombocytopenia YES - Provided important phone numbers and contacts during and after hours. YES - Provided information on symptoms that require immediate assistance. YES - Provided Chemotherapy Immunotherapy when to call handouts YES - Preventing infection. YES - Treatment schedule and confirmation of appointment times. YES - Available support groups. YES - The importance of contraception during the course of chemotherapy YES - Neutropenic fever protocol discussed with patient, which included the importance of reporting any fever of 100.4F (38.0C) or greater to the healthcare team as noted on the provided wallet card and/or magnet. YES Time Spent: 60 minutes REFERRAL (RECOMMENDATION): N/A Jennifer Burk RN documented in this encounter [facility] 01-14-2025 Telephone encounter Note Patient informed of Dr. Martinez's response, stated understanding. Jennifer Burk RN [facility] 01-14-2025 Miscellaneous Notes Patient informed of Dr. Martinez's response, stated understanding. Jennifer Burk RN Recommend she not use omeprazole if possible. Use Pepcid instead. Orville Martinez DO Patient does not have antiemetic on file. Order pended for compazine. Can patient continue omeprazole? She uses PRN. Declined emla cream. Jennifer Burk RN documented in this encounter [facility] 01-14-2025 Telephone encounter Note Recommend she not use omeprazole if possible. Use Pepcid instead. Orville Martinez DO [facility] 01-14-2025 Telephone encounter Note Patient does not have antiemetic on file. Order pended for compazine. Can patient continue omeprazole? She uses PRN. Declined emla cream. Jennifer Burk RN [facility] 01-14-2025 Telephone encounter Note Patient decided that she is not going to use the paxman system. She will proceed with treatment next week. Jennifer Burk RN [facility] 01-14-2025 Miscellaneous Notes Patient decided that she is not going to use the paxman system. She will proceed with treatment next week. Jennifer Burk RN Patient informed that [facility] has a Paxman cooling system. Patient was given the [facility]'s information to contact. Patient will let our office know what she decides to do. Jennifer Burk RN The following approved medication requests have been transmitted electronically. Requested Prescriptions No prescriptions requested or ordered in this encounter Orville Martinez DO Called and spoke to patient. Discussed the Paxman option at [facility]. Discussed the portable system options like penguin and artic cold caps. Patient informed that she will need 1-2 coolers of dry ice, 2 people to help apply, change every 20 min starting before treatment, during treatment, and after treatment. Patient did not realize the work that would go into the cold caps and stated she might settle for a wig instead. Cranial prosthesis order pended to Dr. Martinez. Jennifer Burk RN Patient is requesting to speak with someone regarding cooling cap. documented in this encounter [facility] 01-14-2025 History of Present illness Narrative Radiology Service Progress Note PATIENT NAME: Liz Robles DATE OF SERVICE: January 14, 2025 TIME: 8:59 AM PATIENT IDENTITY VERIFICATION COMPLETED USING TWO (2) IDENTIFIERS: Name and Date of confirmed by patient verbally. FALL SCREENING: Has the patient had 2 falls in the last year or 1 fall with injury or currently using an Ambulatory Assistive Device (Walker, Cane, Wheelchair, Crutches, etc.)? No PATIENT GENDER DATA: Assigned female at . status: : No status: NO. PATIENT RELEVANT IMPLANT DATA REVIEWED: Not Applicable PATIENT PRESENTS WITH AN IMPLANTABLE OR ATTACHED COMPUTER SYSTEM TECHNICIAN: No RADIOLOGY DEPARTMENT: Ultrasound PERIPHERAL IV DATA: Not applicable SIGNED BY: Elodia Cisneros RDMS January 14, 2025 8:59 AM documented in this encounter [facility] 01-14-2025 Note HNO ID: [id number] Author: ELODIA CISNEROS RDMS Service: ? Author Type: Photography Professor Type: Progress Notes Filed: 01/14/2025 09:00 Note Text: Radiology Service Progress Note PATIENT NAME: Liz Robles DATE OF SERVICE: January 14, 2025 TIME: 8:59 AM PATIENT IDENTITY VERIFICATION COMPLETED USING TWO (2) IDENTIFIERS: Name and Date of confirmed by patient verbally. FALL SCREENING: Has the patient had 2 falls in the last year or 1 fall with injury or currently using an Ambulatory Assistive Device (Walker, Cane, Wheelchair, Crutches, etc.)? No PATIENT GENDER DATA: Assigned female at . status: : No status: NO. PATIENT RELEVANT IMPLANT DATA REVIEWED: Not Applicable PATIENT PRESENTS WITH AN IMPLANTABLE OR ATTACHED COMPUTER SYSTEM TECHNICIAN: No RADIOLOGY DEPARTMENT: Ultrasound PERIPHERAL IV DATA: Not applicable SIGNED BY: Elodia Cisneros RDMS January 14, 2025 8:59 AM [facility] 01-13-2025 Telephone encounter Note Patient informed that [facility] has a Paxman cooling system. Patient was given the rep's information to contact. Patient will let our office know what she decides to do. Jennifer Burk RN [facility] 01-13-2025 Telephone encounter Note The following approved medication requests have been transmitted electronically. Requested Prescriptions No prescriptions requested or ordered in this encounter Orville Martinez DO [facility] 01-13-2025 Telephone encounter Note Called and spoke to patient. Discussed the Paxman option at [facility]. Discussed the portable system options like penguin and artic cold caps. Patient informed that she will need 1-2 coolers of dry ice, 2 people to help apply, change every 20 min starting before treatment, during treatment, and after treatment. Patient did not realize the work that would go into the cold caps and stated she might settle for a wig instead. Cranial prosthesis order pended to Dr. Martinez. Jennifer Burk, RN [facility] 01-13-2025 Telephone encounter Note Patient is requesting to speak with someone regarding cooling cap. T [facility] Work Phone: 01-13-2025 Note HNO ID: [id number] Author: ORVILLE MARTINEZ DO Service: ? Author Type: Physician Type: Progress Notes Filed: 01/13/2025 08:06 Note Text: The below documentation is based on a tumor board discussion amongst the multidisciplinary team and should NOT be used for insurance verification or coverage purposes or interpreted as the final plan of care: Date of Presentation: January 13, 2025 Presenter: Orville Martinez DO Team Members: Drs. Martinez and Lasha. Primary reason for presentation: discussion of pt presentation / treatment options: Neoadjuvant chemoimmunotherapy. Anatomic stage: II. Mammogram, US and MRI Breast reviewed. [facility] / [facility] Pathway discussed: No Clinical trial discussion: N/A. Genetics: Results pending Supportive Care: None Indicated at this time Discussion / recommendations: After review and discussion of patient presentation, the following thoughts / recommendations were made. 1) Surgery: Anticipate lumpectomy pending response to NACT. 2) Medical Oncology: Neoadjuvant chemo-immunotherapy for TNBC using the KEYNOTE 522 regimen. 3) Radiation Oncology: Was seen by radiation oncology previously. Will refer post-operatively. This abstract and interpretation of the conversation at tumor board has been completed by Orville Martinez DO. The final recommendations / treatment plan will be made by the patient's primary health care team and patient, after full discussion as appropriate. [facility] 01-07-2025 Telephone encounter Note 3 cycles entered Start email sent T [facility] Work Phone: 01-07-2025 Miscellaneous Notes 3 cycles entered Start email sent AVS 01/04 IR port placement at [place] or [facility]- patient prefers the date of 01/14/2025.SCHEDULED / 01/14 NOT AVAILABLE Labs today.DONE Begin weekly Carbo/Taxol the week of 01/17/2025. May be straight back for cycle 1. Will need CBC/CMP/MAG/TSH/T4/Cortisol for D1. Every 6 weeks- TSH/T4/Cortisol. Keytruda every 3 weeks. Cycle 2- OV/CBC/CMP/MAG. All orders are in [place]. CHEMO ED IS SCHEDULED Markie Cazares sent my chart message to patient , was instructed to have patient call central scheduling to schedule MRI of Breast and Liver Ovidio Garcias documented in this encounter [facility] 01-06-2025 Note HNO ID: [id number] Author: YESI PLASCENCIA LPN Service: ? Author Type: LICENSED NURSE Type: Progress Notes Filed: 01/11/2025 01:51 Note Text: Patient was referred by: Babita Morataya APRN.SURVEY RESEARCH MANAGER Did patient bring outside records to appt today? : No Last mammogram on: 11/26/2024 bilateral Results: see report Patient current bra size: 36C Coping: It is normal to feel some distress when you have cancer. On a scale of 0-10 please indicate the number that best describes your level of distress on the average over the past week. 7/10 Referred to social work: No Is the patient active on [employer] Yes Electronically Signed By: Yesi Plascencia LPN In Department: [facility] REVIEW OF PATIENT HISTORY: OB History No obstetric history on file. FAMILY HISTORY Problem Relation Age of Onset Liver Disease Mother No Known Problems Father No Known Problems Brother Liver Cancer Maternal Grandmother No Known Problems Maternal Grandfather Breast Cancer Maternal Aunt PAST MEDICAL HISTORY Diagnosis Date Essential hypertension PAST SURGICAL HISTORY Procedure Laterality Date BX OF BREAST; INCISIONAL Left 11/2024 [id number]. hx of eye surgery Social History Tobacco Use Smoking status: Never Smokeless tobacco: Never Vaping Use Vaping status: Never Used Substance Use Topics Alcohol use: Not Currently Drug use: Not Currently [facility] 01-06-2025 History of Present illness Narrative Patient was referred by: Babita Morataya APRN.SURVEY RESEARCH MANAGER Did patient bring outside records to appt today? : No Last mammogram on: 11/26/2024 bilateral Results: see report Patient current bra size: 36C Coping: It is normal to feel some distress when you have cancer. On a scale of 0-10 please indicate the number that best describes your level of distress on the average over the past week. 02/17 Referred to social work: No Is the patient active on [employer] Yes Electronically Signed By: Yesi Plascencia LPN In Department: [facility] REVIEW OF PATIENT HISTORY: OB History No obstetric history on file. FAMILY HISTORY Problem Relation Age of Onset Liver Disease Mother No Known Problems Father No Known Problems Brother Liver Cancer Maternal Grandmother No Known Problems Maternal Grandfather Breast Cancer Maternal Aunt PAST MEDICAL HISTORY Diagnosis Date Essential hypertension PAST SURGICAL HISTORY Procedure Laterality Date BX OF BREAST; INCISIONAL Left 11/2024 [id number]. hx of eye surgery Social History Tobacco Use Smoking status: Never Smokeless tobacco: Never Vaping Use Vaping status: Never Used Substance Use Topics Alcohol use: Not Currently Drug use: Not Currently NEW BREAST CANCER - INITIAL SURGICAL VISIT SERVICE DATE: 12/29/2024 REFERRING PROVIDER: Dr. Lidia Hirsch Consult requested for an opinion regarding the evaluation and treatment of a new breast issue. My final impression and recommendations will be communicated back to the requesting physician by way of the shared medical record or letter via US mail. SUBJECTIVE: REASON FOR TODAY'S VISIT: Breast Cancer Evaluation HISTORY of PRESENT ILLNESS: Liz Robles is a 69 year old White female who presents for an evaluation of a diagnosis of a new LEFT breast cancer. Patient felt a LEFT breast lump and underwent diagnotic imaging, at [place], on 11/26/2024 which showed a possible asymmetry in the left breast. Targeted US revealed a 2.6 x 1.4 x 2.3 cm, at 10:00, 4-5 cm from the nipple. US of the axilla showed a couple lymph nodes without definite abnormal morphology. Diagnosis was made at [facility] by means of ultrasound-guided core biopsy of Left breast on 12/01/2024. 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, ER negative, MS negative, HER2 - Breast MRI was performed on 01/04/2025 for further evaluation of extent of the disease process. Imaging revealed 2.7 cm known cancer @ 10:00 and a NME 1.2 x 1.4 x 2.8 cm area @ 9:00 (total span of disease 4 cm) MRI bx recommended if BCT is being considered. 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 Employment status: still working Social History Tobacco Use Smoking status: Never Smokeless tobacco: Never Vaping Use Vaping status: Never Used Substance Use Topics Alcohol use: Not Currently Drug use: Not Currently ACTIVE PROBLEM LIST Malignant Neoplasm of Upper-Inner Quadrant of Left Breast in Female, Estrogen Receptor Negative (Hcc) - 01/03/2025 Triple Negative Breast Cancer (Hcc) - 01/03/2025 FAMILY HISTORY: FAMILY HISTORY Problem Relation Age of Onset Liver Disease Mother No Known Problems Father No Known Problems Brother Liver Cancer Maternal Grandmother No Known Problems Maternal Grandfather Breast Cancer Maternal Aunt Cervical Cancer Maternal Aunt then Vaginal ca Lung Cancer Maternal Uncle smoker Lung Cancer Maternal Uncle smoker Breast cancer: Maternal Aunt (60's) Ovarian cancer:Negative Colon cancer:Negative Thyroid cancer:Negative Pancreatic cancer: Negative OBSTETRIC RELATED HISTORY: Commission Broker History LMP: LMP Unknown, Postmenopausal Age at Menarche: 11 Age at First : Age at Menopause: 44 Commission Broker History Comments: Sexual Activity: No sexual activity data on record; No partner data on record Contraception: No contraception data on record PAST MEDICAL HISTORY: PAST MEDICAL HISTORY Diagnosis Date Breast cancer (HCC) 11/2024 left breast Essential hypertension PAST SURGICAL HISTORY: PAST SURGICAL HISTORY Procedure Laterality Date BX OF BREAST; INCISIONAL Left 11/2024 [id number]. hx of eye surgery ALLERGIES Allergen Reactions Xzmhsxu-Eqe-Las Red* Myalgia CURRENT MEDICATIONS: iv contrast (will be provided with radiology test) MRI LT Breast Bx Inject, intravenously, once for 1 dose. No IV access, insert saline lock prior to the beginning of sedation, infusion, injection of imaging exam. Discontinue saline lock post exam. If Pt has a central line or IVAD, may access for administration according to line specific nursing protocol. Once exam is complete flush line and de-access according to line specific nursing protocol in the MR contrast administration guidelines link lisinopril (ZESTRIL) 5 mg tablet Take 2.5 mg by mouth once daily. omeprazole (PRILOSEC) 40 mg capsule Take 40 mg by mouth once daily. REVIEW OF SYSTEMS: GENERAL: No weight loss, malaise or fevers HEENT: Negative for frequent or significant headaches, No changes in hearing or vision RESPIRATORY: Negative for cough, wheezing, or shortness of breath CARDIOVASCULAR: Negative for chest pain, leg swelling, or heart palpitations MUSCULOSKELETAL: Negative for joint pain or swelling, back pain or muscle pain, no upper extremity swelling or lymphedema ABD: no abdominal pain INTEGUMENTARY: Denies Scleroderma or Lupus. Denies chronic skin conditions. BREASTS:She denies new palpable breast masses, skin changes, nipple discharge, nipple retraction, breast pain or masses in her axilla. All other reviewed and negative other than HPI. OBJECTIVE: PHYSICAL EXAM: 27.26 kg/m2 GENERAL:well-nourished, healthy, alert and oriented x 3, calm SKIN:warm, dry, skin color, texture, turgor normal HEAD/EYES:normocephalic, atraumatic, and anicteric NECK: supple, symmetrical, no thyromegaly RESPIRATORY: Respirations regular & non-labored ABDOMEN: soft, nondistended. No hepatomegaly., No masses MUSCULOSKELETAL: No observed limitations in range of motion of upper extremities. Patient ambulates independently BREASTS: The Patient was examined in the upright and supine positions. Breasts are symmetric. The patient was examined in the upright and supine position. RIGHT breast soft, no dominant masses, nipple everted, no discharge, no skin changes RIGHT axilla no palpable axillary lymphadenopathy LEFT breast soft, palpable mass @ 10:00, 3 cm in size corresponding to cancer (no skin or chest wall muscle involvement), nipple everted, no discharge, no skin changes LEFT axilla no palpable axillary lymphadenopathy Regional Lymph Nodes: There is no concerning supraclavicular, infraclavicular or cervical lymphadenopathy. IMAGING TO DATE: EXAMINATION: OUTSIDE IMAGING INTERPRETATION Indication for the Request / Reason for Overread: Previous report is inadequate. Interpretation of outside facility imaging. Service Requesting Consult: Breast surgery Any specific Issue(s) to be discussed: 2nd opinion. Biopsy-proven invasive carcinoma in the left breast. Images Reviewed: Bilateral mammogram 11/26/2024. Left breast ultrasound 11/26/2024. Ultrasound-guided left breast biopsy and postbiopsy mammogram 12/01/2024. These are compared to mammograms 11/06/2015, 04/21/2018, 07/18/2020, 11/06/2022. Overread Date: 12/31/2024 1:41 PM Bilateral mammogram 11/26/2024: The breast tissue is heterogeneously dense. There is a possible asymmetry in the upper inner left breast, subjacent to the BB marker placed on the patient's skin at presumed palpable area of concern, possibly measuring 3 cm. Left breast ultrasound 11/26/2024: Left breast 10:00 4-5 cm from the nipple, there is an irregular hypoechoic mass with angular margins, measuring at least 2.6 x 1.4 x 2.3 cm. A couple left axillary lymph nodes are imaged without definite abnormal morphology. Ultrasound-guided left breast biopsy 12/01/2024: It is difficult to identify the needle within the mass, however it is likely within the mass a few times, with postbiopsy mammogram demonstrating a ribbon clip likely in good position, possibly at the superior aspect of the mass. IMPRESSION: 2.6 cm irregular mass in the 10:00 left breast status post ultrasound-guided biopsy demonstrating malignancy. Attention on breast MRI scheduled for 01/04/2025, to evaluate extent of disease given dense breast tissue. FINDINGS: There is heterogeneous fibroglandular tissue. There is minimal background parenchymal enhancement. The background parenchymal enhancement is symmetrical. Right: No suspicious enhancement. No gross right axillary adenopathy. Left: Avidly enhancing irregular 2.6 x 2.5 x 2.7 cm mass in the upper inner quadrant middle depth with the associated artifact related to biopsy marking clip noted along the superior aspect of the biopsy-proven malignant mass. Asymmetric, suspicious discontiguous 1.2 x 1.4 x 2.8 cm (TR, CC, AP) non mass enhancement in the 8-9:00 position, slightly inferior to the known malignant mass (9:90-104, 100:222-231). In total, the known malignant mass and slightly inferior discontiguous non mass enhancement within the upper inner and lower inner breast span approximately 2.6 x 4 x 4 cm (TR, CC, AP). No gross left axillary adenopathy, however, there is a left axillary lymph node with an otherwise very thin cortex (less than 1 mm) with apparent focal eccentric cortical thickness measuring up to 3-4 mm (1:158). No gross internal mammary adenopathy bilaterally. However, there are asymmetric, small lymph nodes noted along the left internal mammary vasculature including a 0.4 x 0.4 x 0.2 cm node (4:89, 100:192) noted medial to the vessels and a 0.2 x 0.4 x 0.5 cm lymph node immediately deep to the internal mammary vessels (4:98, 100:200). IMPRESSION: 2.7 cm known malignant mass in the upper inner left breast with asymmetric, suspicious discontiguous 1.2 x 1.4 x 2.8 cm non mass enhancement, slightly inferior in the 8-9:00 position; in total spanning approximately 2.6 x 4 x 4 cm. If mastectomy is not planned, MRI guided core needle biopsy of the suspicious discontiguous non mass enhancement in the 8-9:00 position of the left breast is recommended. No gross left axillary adenopathy, however, there is a suspicious left axillary lymph node with an otherwise very thin cortex (less than 1 mm) with focal eccentric cortical thickness of 3-4 mm for which further evaluation is recommended with ultrasound. No gross internal mammary adenopathy bilaterally. However, there are indeterminant asymmetric, small lymph nodes noted along the left internal mammary vasculature as detailed above in this patient with recent biopsy-proven malignancy in the upper inner quadrant of the left breast. Nurse navigator has been asked to contact the patient. BI-RADS Category 4: Suspicious MRI liver - cysts. PATHOLOGY RESULTS: 12/01/24 Left breast, core biopsy: Invasive carcinoma with apocrine features, at least [place] grade 2; see comment. at 1554 EDT Diagnosis Comment The biopsy shows an invasive carcinoma composed of scattered nests and short cords of tumor cells with ample eosinophilic granular cytoplasm and pleomorphic, hyperchromatic nuclei with prominent nucleoli in a background of fibrous tissue with a prominent lymphocytic infiltrate. The following immunohistochemical stains were performed on block A1 and evaluated in the tumor cells: - Keratin AE1/3: Positive - CAM5.2: Positive - GATA3: Positive - SOX10: Negative - ER: Negative - p63: No definite myoepithelial cell staining (scattered tumor cell staining noted) The findings are consistent with an invasive carcinoma with apocrine features, which measures up to 9.5 mm in this limited material. ER status Negative (less than 1%) ER % staining <1 Estrogen Receptor (Staining Intensity) Not Applicable Estrogen Receptor Internal Control Present and Stained as Expected Estrogen Receptor External Control Present and Stained as Expected MS status Negative (less than 1%) MS % staining <1 Progesterone Receptor (Staining Intensity) Not Applicable Progesterone Receptor Internal Control Present and Stained as Expected Progesterone Receptor External Control Present and Stained as Expected HER2 IHC Status Equivocal for HER2 Overexpression HER2 IHC Score 2+ Tumor Type Primary Invasi NEGATIVE for HER2 (ERBB2) GENE AMPLIFICATION SOZO 01/06/2025 SOZO Review Extremity measured Left Arm Pacemaker/ Defibrillator/ Possible No Dominant Side Left Bilateral/ Unilateral Measurement Unilateral Patient Position Standing LDEX Result Green LDEX Score -5.4 Provider notified Yes Another SOZO Measurement needed No GENETIC TESTING: Yes recommended Assessment ASSESSMENT: Liz Robles is a 69 year old female with a LEFT breast 2.7 mass @ 10:00, 5 cm FN. Bx (ribbon clip) shows IDC. MRI shows a 1.2 x 1.4 x 2.8 NME @ 9:00 (not biopsied). Abnormal LN, 2nd look US of the axilla recommended. ER-MS-HER2- [id number] PLAN: DIAGNOSIS: (C50.212, Z17.1) Malignant neoplasm of upper-inner quadrant of left breast in female, estrogen receptor negative (HCC) (primary encounter diagnosis) (C50.919, Z17.421) 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) I have examined Ms. Robles and reviewed the physical findings, imaging and pathology reports with her. A discussion was held with the patient regarding the local-regional, as well as systemic treatment of her Breast Cancer. We discussed role of breast conservation surgery or mastectomy, indications and risks of sentinel lymph node biopsy, possibility of axillary lymph node dissection, breast reconstruction, and role of systemic and radiation therapy. ADDITIONAL IMAGING LEFT US 2nd look and core bx if abnormal MULTIDISCIPLINARY CARE REFERRAL(S) for breast cancer treatment planning considerations: We discussed medical oncology and indications for neoadjuvant versus adjuvant systemic therapy. She saw Dr. Martinez to start OLGA for TNBC We discussed radiation oncology and indications for radiation. She saw Dr. Avalos GENETICS The patient viewed a genetic testing educational video which describes rationale for germline genetic testing, potential results, and possible personal and familial implications. The patient chose to pursue and provided informed consent for germline testing. Test results will be disclosed by a genetic counselor. BREAST SURGERY Option 1: Lumpectomy/Partial mastectomy We discussed options for removing her breast cancer via a lumpectomy, which would require adjuvant radiation. We discussed placement of a gamaliel sfdc developer clip localized placed prior to surgery in radiology to help me identify where in the breast the cancer is during surgery. We discussed surgical pathology margins, shave margins and possible need for additional surgery if the margins are not clear. We discussed mobilization of the surrounding breast tissue to close the acquired surgical defect. Option 1: Mastectomy with or without reconstruction We discussed removing the entire breast. We discussed the details of the mastectomy operation. Specifically we discussed the options for mastectomy and the difference between skin sparing and nipple sparing mastectomies and where the surgical scars are usually placed. We discussed options for reconstruction (implant/tissue silverware supervisor vs. Autologous IRAIS free flap procedure). We discussed loss of sensation to the breast We discussed plastic/reconstructive surgery. She is scheduled to see Dr. Mock - but wishes to hold off today and see him after systemic therapy. LYMPH NODES We discussed management of her axilla. [place] lymph node biopsy is recommended. We discussed this portion of the procedure is is an excision a of a few lymph nodes. We discussed that I will perform a mapping procedure in the operating room when she is under anesthesia. I will inject blue dye and nuclear medicine mapping agents into her breast which will travel to the lymph nodes and identify, if cancer were to spread, which lymph node/nodes cancer would travel to, and these are the lymph nodes I will remove to send to pathology for evaluation. We discussed the risks of this procedure entail possible swelling, infection or a 5% risk of upper extremity lymphedema. The benefits are that the lymph nodes status helps to determine if canc has spread outside of the breast and if we need to recommend additional treatments. The patient had a baseline L-Dex SOZO measurement which I reviewed today, as noted above in the health record. We reviewed that bioimpedance spectroscopy helps identify the early onset of lymphedema in an arm or leg before patients experience noticeable swelling. Research has shown that patients with early detection of lymphedema using L-Dex combined with breast rehab intervention do not progress to chronic lymphedema. Whenever possible, patients are tested for baseline L-Dex score before cancer treatment begins and then are reassessed during regular follow-up visits using the SOZO device. If the patient's L-Dex score increases above normal levels, that is a sign that lymphedema is developing and a referral is made to physical therapy for further evaluation and early compression treatment. Lymphedema assessment with the SOZO L-Dex score is recommended to be done at baseline prior to surgery and at follow-up survivorship visits to screen for lymphedema per NCCN guidelines of breast cancer survivorship. Abnormal LN - so will have 2nd look us and possible biopsy We discussed surgical times, expectations, activity limitations and recovery times for all operations. She is unsure of her surgical decision at this time. MRI suggests consideration of bx of additional area if BCT is recommended - but given she is getting OLGA, will hold on that for now and see how her response is, as the extent of disease does not have to be excised if imaging suggests a pCR after OLGA NEXT STEPS Start OLGA with Dr. Martinez RTC to se me prior to completion of systemic therapy at [facility] time we will repeat MMG, US and MRI and finalize surgery She will need to see Dr. Mock at time of regroup Future Appointments Date Time Provider Department Center 01/14/2025 7:45 AM US [facility]STR MOB 2 VARUN [place] 01/14/2025 10:30 AM Wstr, Curriculum Developer [facility] AMY [place] All questions were answered and the patient had no further concerns at this time. Liz Ana Cristina Robles was given our contact information if she has any further questions or concerns. Kimmie Colby DO, FACS Breast Surgeon [facility] cc: Babita Morataya APRN.SURVEY RESEARCH MANAGER Dr. Lidia Martinez documented in this encounter [facility] 01-06-2025 Note HNO ID: [id number] Author: KIMMIE COLBY DO Service: ? Author Type: Physician Type: Progress Notes Filed: 01/11/2025 01:51 Note Text: NEW BREAST CANCER - INITIAL SURGICAL VISIT SERVICE DATE: 12/29/2024 REFERRING PROVIDER: Dr. Lidia Hircsh Consult requested for an opinion regarding the evaluation and treatment of a new breast issue. My final impression and recommendations will be communicated back to the requesting physician by way of the shared medical record or letter via US mail. SUBJECTIVE: REASON FOR TODAY'S VISIT: Breast Cancer Evaluation HISTORY of PRESENT ILLNESS: Liz Robles is a 69 year old White female who presents for an evaluation of a diagnosis of a new LEFT breast cancer. Patient felt a LEFT breast lump and underwent diagnotic imaging, at [place], on 11/26/2024 which showed a possible asymmetry in the left breast. Targeted US revealed a 2.6 x 1.4 x 2.3 cm, at 10:00, 4-5 cm from the nipple. US of the axilla showed a couple lymph nodes without definite abnormal morphology. Diagnosis was made at [facility] by means of ultrasound-guided core biopsy of Left breast on 12/01/2024. 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, ER negative, MS negative, HER2 - Breast MRI was performed on 01/04/2025 for further evaluation of extent of the disease process. Imaging revealed 2.7 cm known cancer @ 10:00 and a NME 1.2 x 1.4 x 2.8 cm area @ 9:00 (total span of disease 4 cm) MRI bx recommended if BCT is being considered. 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 Employment status: still working Social History Tobacco Use Smoking status: Never Smokeless tobacco: Never Vaping Use Vaping status: Never Used Substance Use Topics Alcohol use: Not Currently Drug use: Not Currently ACTIVE PROBLEM LIST Malignant Neoplasm of Upper-Inner Quadrant of Left Breast in Female, Estrogen Receptor Negative (Hcc) - 01/03/2025 Triple Negative Breast Cancer (Hcc) - 01/03/2025 FAMILY HISTORY: FAMILY HISTORY Problem Relation Age of Onset Liver Disease Mother No Known Problems Father No Known Problems Brother Liver Cancer Maternal Grandmother No Known Problems Maternal Grandfather Breast Cancer Maternal Aunt Cervical Cancer Maternal Aunt then Vaginal ca Lung Cancer Maternal Uncle smoker Lung Cancer Maternal Uncle smoker Breast cancer: Maternal Aunt (60's) Ovarian cancer:Negative Colon cancer:Negative Thyroid cancer:Negative Pancreatic cancer: Negative 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 hx of eye surgery ALLERGIES Allergen Reactions Savruxn-Mrx-Fun Red* Myalgia CURRENT MEDICATIONS: iv contrast (will be provided with radiology test) MRI LT Breast Bx Inject, intravenously, once for 1 dose. No IV access, insert saline lock prior to the beginning of sedation, infusion, injection of imaging exam. Discontinue saline lock post exam. If Pt has a central line or IVAD, may access for administration according to line specific nursing protocol. Once exam is complete flush line and de-access according to line specific nursing protocol in the MR contrast administration guidelines link lisinopril (ZESTRIL) 5 mg tablet Take 2.5 mg by mouth once daily. omeprazole (PRILOSEC) 40 mg capsule Take 40 mg by mouth once daily. REVIEW OF SYSTEMS: GENERAL: No weight loss, malaise or fevers HEENT: Negative for frequent or significant headaches, No changes in hearing or vision RESPIRATORY: Negative for cough, wheezing, or shortness of breath CARDIOVASCULAR: Negative for chest pain, leg swelling, or heart palpitations MUSCULOSKELETAL: Negative for joint pain or swelling, back pain or muscle pain, no upper extremity swelling or lymphedema ABD: no abdominal pain INTEGUMENTARY: Denies Scleroderma or Lupus. Denies chronic skin conditions. BREASTS:She denies new palpable breast masses, skin changes, nipple discharge, nipple retraction, breast pain or masses in her axilla. All other reviewed and negative other than HPI. OBJECTIVE: PHYSICAL EXAM: 27.26 kg/m2 GENERAL:well-nourished, healthy, alert and oriented x 3, calm SKIN:warm, dry, skin color, texture, turgor normal HEAD/EYES:normocepha (more content not included)... [facility] 01-06-2025 History of Present illness Narrative Radiology Service Progress Note DATE OF SERVICE: January 06, 2025 TIME: 8:57 AM PATIENT IDENTITY VERIFICATION COMPLETED USING TWO (2) STANDARD IDENTIFIERS: Name and Date of confirmed by patient verbally and Name and Date of confirmed by identification band. FALL SCREENING: Has the patient had 2 falls in the last year or 1 fall with injury or currently using an Ambulatory Assistive Device (Walker, Cane, Wheelchair, Crutches, etc.)? No PATIENT GENDER DATA: Assigned female at . status: : No status: NO. PATIENT RELEVANT IMPLANT DATA REVIEWED: Yes PATIENT PRESENTS WITH AN IMPLANTABLE OR ATTACHED COMPUTER SYSTEM TECHNICIAN: No ALLERGIES: Reviewed and unchanged CONTRAST ALLERGY: NO. EXAM: MRI - CONTRAST TYPE: GROUP II PERIPHERAL IV DATA: Ambulatory: A peripheral IV was started in the Right antecubital site with a Angio cath: 22 gauge. RADIOLOGY DEPARTMENT: MR; Exam(s) Completed: Body: Liver (routine). Lavender Administered: No SIGNATURE: KEVIN RONQUILLO FISHING TACKLE REPAIRER ROSY DARVIN Hoskins PATIENT NAME: Liz Robles DATE: January 06, 2025 TIME: 8:57 AM documented in this encounter [facility] 01-06-2025 Note HNO ID: [id number] Author: YESI FRIEND CT Service: Radiology Author Type: Technologist Type: Progress Notes Filed: 01/06/2025 08:58 Note Text: Radiology Service Progress Note DATE OF SERVICE: January 06, 2025 TIME: 8:57 AM PATIENT IDENTITY VERIFICATION COMPLETED USING TWO (2) STANDARD IDENTIFIERS: Name and Date of confirmed by patient verbally and Name and Date of confirmed by identification band. FALL SCREENING: Has the patient had 2 falls in the last year or 1 fall with injury or currently using an Ambulatory Assistive Device (Walker, Cane, Wheelchair, Crutches, etc.)? No PATIENT GENDER DATA: Assigned female at . status: : No status: NO. PATIENT RELEVANT IMPLANT DATA REVIEWED: Yes PATIENT PRESENTS WITH AN IMPLANTABLE OR ATTACHED COMPUTER SYSTEM TECHNICIAN: No ALLERGIES: Reviewed and unchanged CONTRAST ALLERGY: NO. EXAM: MRI - CONTRAST TYPE: GROUP II PERIPHERAL IV DATA: Ambulatory: A peripheral IV was started in the Right antecubital site with a Angio cath: 22 gauge. RADIOLOGY DEPARTMENT: MR; Exam(s) Completed: Body: Liver (routine). Lavender Administered: No SIGNATURE: KEVIN RONQUILLO FISHING TACKLE REPAIRER ROSY Friend CT PATIENT NAME: Liz Robles DATE: January 06, 2025 TIME: 8:57 AM [facility] 01-05-2025 Telephone encounter Note I spoke with the patient. She is seeing Dr. Colby tomorrow and will discuss the need for another biopsy vs having a mastectomy or a lumpectomy. Winsome Gonzales LPN [facility] 01-05-2025 Miscellaneous Notes I spoke with the patient. She is seeing Dr. Colby tomorrow and will discuss the need for another biopsy vs having a mastectomy or a lumpectomy. Winsome Gonzales LPN Patient called stating that she received a call regarding results from MRI yesterday. She was informed there was another spot on left breast and another biopsy would be needed along with armpit. She states she needs some more guidance with having a mastectomy or lumpectomy. Patient requested to speak with clinical. documented in this encounter [facility] 01-05-2025 Telephone encounter Note Called patient to assist with left breast axilla us & left breast MRI Bx appt per Dr. Rose. Patient declined the appt at this time. Patient wants to discuss the recommendations with Dr. Hirsch first. Patient will call back if Dr. Hirsch agrees with the recommendations. Dr. Rose is aware. [facility] Work Phone: 01-05-2025 Telephone encounter Note This appt has been rescheduled as directed. Markie Cazares [facility] 01-05-2025 Miscellaneous Notes This appt has been rescheduled as directed. Markie Cazares Patient is schedule for port placement on Friday, the same day as her chemo education. Please move her out to Friday or next week if either of those days work for her. Thank you. Jennifer Burk RN documented in this encounter [facility] 01-05-2025 Miscellaneous Notes Called patient to assist with left breast axilla us & left breast MRI Bx appt per Dr. Rose. Patient declined the appt at this time. Patient wants to discuss the recommendations with Dr. Hirsch first. Patient will call back if Dr. Hirsch agrees with the recommendations. Dr. Rose is aware. documented in this encounter [facility] 01-05-2025 Telephone encounter Note Patient called stating that she received a call regarding results from MRI yesterday. She was informed there was another spot on left breast and another biopsy would be needed along with armpit. She states she needs some more guidance with having a mastectomy or lumpectomy. Patient requested to speak with clinical. [facility] Work Phone: 01-05-2025 Telephone encounter Note Patient is schedule for port placement on Friday, the same day as her chemo education. Please move her out to Friday or next week if either of those days work for her. Thank you. Jennifer Burk RN [facility] 01-04-2025 Telephone encounter Note When I was completing my note I reviewed her CT scan results again and noticed the radiologist commented there were some thickening of the endometrial lining. Most likely a benign finding but I would like to get an ultrasound to be sure the endometrium looks normal. Order filed. Orville Martinez DO [facility] 01-04-2025 Note Addended by: ORVILLE MARTINEZ on: 01/04/2025 05:06 PM Modules accepted: Orders [facility] 01-04-2025 Miscellaneous Notes Addended by: ORVILLE MARTINEZ on: 01/04/2025 05:06 PM Modules accepted: Orders documented in this encounter [facility] 01-04-2025 Miscellaneous Notes When I was completing my note I reviewed her CT scan results again and noticed the radiologist commented there were some thickening of the endometrial lining. Most likely a benign finding but I would like to get an ultrasound to be sure the endometrium looks normal. Order filed. Orville Martinez DO documented in this encounter [facility] 01-04-2025 Telephone encounter Note Met with patient and introduced myself. Patient was given a My Journey binder with chemocare information, office contact information, thermometer, and additional chemotherapy resource booklets. Patient aware a nurse will review on scheduled appointment date. Elise Meier RN [facility] Work Phone: 01-04-2025 Miscellaneous Notes Met with patient and introduced myself. Patient was given a My Journey binder with chemocare information, office contact information, thermometer, and additional chemotherapy resource booklets. Patient aware a nurse will review on scheduled appointment date. Elise Meier RN documented in this encounter [facility] 01-04-2025 Telephone encounter Note AVS 01/04 IR port placement at [place] or [facility]- patient prefers the date of 01/14/2025.SCHEDULED 01/10 01/14 NOT AVAILABLE Labs today.DONE Begin weekly Carbo/Taxol the week of 01/17/2025. May be straight back for cycle 1. Will need CBC/CMP/MAG/TSH/T4/Cortisol for D1. Every 6 weeks- TSH/T4/Cortisol. Keytruda every 3 weeks. Cycle 2- OV/CBC/CMP/MAG. All orders are in [place]. CHEMO ED IS SCHEDULED Markie Cazares [facility] 01-04-2025 History of Present illness Narrative Patient referred by Dr. Hirsch for breast cancer. HPI: The patient is a 69-year-old female with past medical history as outlined below. She appreciated a lump in the left breast about 2 months ago. She underwent bilateral mammogram on 11/26/2024. There was a 3 cm irregular focal asymmetry observed in the left breast at 9 o'clock position middle depth. Ultrasound demonstrated a 2.6 cm irregular hypoechoic mass within the left breast at the 10 o'clock position 4 to 5 cm from the nipple. Lymph nodes in the left axilla. Normal by ultrasound. Ultrasound-guided core needle biopsy with clip placement on 12/01/2024. Pathology: Invasive carcinoma with apocrine features at least [place] grade 2. ER/MS both negative. HER2 2+. Nonamplified on FISH testing. CT of the chest, abdomen pelvis on 12/14/2024 showed a near 2 and half centimeter left breast mass and a few less than 6 mm pulmonary nodules. There was an indeterminate 1.3 cm segment liver lesion. MRI was recommended for further characterization. Had MRI breasts today. Scheduled for MRI liver on 01/06. PAST MEDICAL HISTORY Diagnosis Date Essential hypertension PAST SURGICAL HISTORY Procedure Laterality Date [id number]. hx of eye surgery lisinopril (ZESTRIL) 5 mg tablet Take 2.5 mg by mouth once daily. omeprazole (PRILOSEC) 40 mg capsule Take 40 mg by mouth once daily. ALLERGIES Allergen Reactions Vpxwlwb-Fzb-Wrt Red* Myalgia Social History Tobacco Use Smoking status: Never Smokeless tobacco: Never Vaping Use Vaping status: Never Used Substance Use Topics Alcohol use: Not Currently Drug use: Not Currently FAMILY HISTORY Problem Relation Age of Onset Liver Disease Mother No Known Problems Father Breast Cancer Maternal Aunt Maternal aunt breast cancer in her early 60s. Live to be about 85. Mother's side--Two brothers lung cancer and sister cervix cancer. REVIEW OF SYSTEMS: Constitutional: No episodes of fever and night sweats. Not significantly fatigued. Normal appetite. Neuro: No COLE, vertigo, dizziness and imbalance. No symptoms of neuropathy. HEENT: No recent change in voice, vision or hearing. Resp: No cough, wheeze and hemoptysis. No shortness of breath at rest. No THORPE. CVS: No exertional chest pain, PND, orthopnea and LE edema. GI: No dysphagia and odynophagia. No reflux, n/v, change in bowel habits or abdominal pain. : No dysuria or gross hematuria. No symptoms of bladder outlet obstruction. Endo: No hot flashes. No polyuria and polydipsia. No heat and cold intolerance. Musculoskeletal: No bone, back, joint and muscular pain. Derm: No current rash. No history of jaundice or diffuse pruritis. Heme: No unusual bleeding and unexplained bruising. Psych: Normal mood. Participation of a fellow, resident, medical student, or advanced practice provider student in performing the sensitive examination was discussed with the patient or authorized patient relations representative. The patient or authorized patient relations representative has agreed to proceed with the sensitive examination. Fiordaliza Gonzales LPN chaperoned. PHYSICAL EXAM: Vitals: Blood pressure 141/71, pulse 87, temperature 36.6 C (97.8 F), temperature source Temporal, height 165.8 cm (5' 5.26), weight 76.2 kg (168 lb), SpO2 97%. Well-appearing and in no acute distress. EYES: Sclerae are anicteric bilaterally. LYMPHATIC: There is no palpable cervical or supraclavicular adenopathy. CARDIOVASCULAR: Rhythm is regular. BREAST: At approximately the 11 o'clock position of the left breast there is a superficial mobile 2 x 2 cm firm mass. No left axillary adenopathy. ABDOMEN: The abdomen is nondistended. Extremities: No swelling or edema. SKIN: No jaundice. 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 - I reviewed the pathology with the patient and her . Although she has not yet had MRI of the liver, I recommended neoadjuvant chemoimmunotherapy with the KEYNOTE 522 regimen. Discussed that the goals of care are an increase in overall survival. - I discussed the rationale, logistics, potential risks (including but not limited to fatigue, alopecia, neuropathy, cardiomyopathy, leukemia, infections, autoimmune side effects and the small potential for as a consequence of severe toxicity/complications of therapy), benefits and alternatives, as well as the personnel involved in the administration of carboplatin and paclitaxel along with pembrolizumab on a weekly schedule x 12 followed by Adriamycin and cyclophosphamide with pembrolizumab every 3 weeks x 4 cycles. I answered her questions in detail and she verbalized understanding and agreed with the recommended therapy. Please see the electronic consent document for details of doses and schedule. Plan: - Baseline echocardiogram prior to AC. - Port placement. - Follow-up on results of MRI Breast and Liver. - Genetic testing. - Repeat CT chest after completion of carboplatin and paclitaxel. - Repeat MRI Breast when completes NACT. - Endometrial US. I spent a total of 60 minutes on the date of the service which included preparing to see the patient, daff-nd-svty patient care, completing clinical documentation, performing a medically appropriate examination, counseling and educating the patient/family/caregiver, ordering medications, tests, or procedures, communicating with other HCPs (not separately reported), and communicating results to the patient/family/caregiver. Orville Martinez DO documented in this encounter [facility] 01-04-2025 Note HNO ID: [id number] Author: ORVILLE MARTINEZ DO Service: ? Author Type: Physician Type: Progress Notes Filed: 01/06/2025 16:53 Note Text: Patient referred by Dr. Hirsch for breast cancer. HPI: The patient is a 69-year-old female with past medical history as outlined below. She appreciated a lump in the left breast about 2 months ago. She underwent bilateral mammogram on 11/26/2024. There was a 3 cm irregular focal asymmetry observed in the left breast at 9 o'clock position middle depth. Ultrasound demonstrated a 2.6 cm irregular hypoechoic mass within the left breast at the 10 o'clock position 4 to 5 cm from the nipple. Lymph nodes in the left axilla. Normal by ultrasound. Ultrasound-guided core needle biopsy with clip placement on 12/01/2024. Pathology: Invasive carcinoma with apocrine features at least Mitchel grade 2. ER/MS both negative. HER2 2+. Nonamplified on FISH testing. CT of the chest, abdomen pelvis on 12/14/2024 showed a near 2 and half centimeter left breast mass and a few less than 6 mm pulmonary nodules. There was an indeterminate 1.3 cm segment liver lesion. MRI was recommended for further characterization. Had MRI breasts today. Scheduled for MRI liver on 01/06. PAST MEDICAL HISTORY Diagnosis Date Essential hypertension PAST SURGICAL HISTORY Procedure Laterality Date KC-[id number]. hx of eye surgery lisinopril (ZESTRIL) 5 mg tablet Take 2.5 mg by mouth once daily. omeprazole (PRILOSEC) 40 mg capsule Take 40 mg by mouth once daily. ALLERGIES Allergen Reactions Chmmpxv-Vbv-Tul Red* Myalgia Social History Tobacco Use Smoking status: Never Smokeless tobacco: Never Vaping Use Vaping status: Never Used Substance Use Topics Alcohol use: Not Currently Drug use: Not Currently FAMILY HISTORY Problem Relation Age of Onset Liver Disease Mother No Known Problems Father Breast Cancer Maternal Aunt Maternal aunt breast cancer in her early 60s. Live to be about 85. Mother's side--Two brothers lung cancer and sister cervix cancer. REVIEW OF SYSTEMS: Constitutional: No episodes of fever and drenching night sweats. Not significantly fatigued. Normal appetite. Neuro: No COLE, vertigo, dizziness and imbalance. No symptoms of neuropathy. HEENT: No recent change in voice, vision or hearing. Resp: No cough, wheeze and hemoptysis. No shortness of breath at rest. No THORPE. CVS: No exertional chest pain, PND, orthopnea and LE edema. GI: No dysphagia and odynophagia. No reflux, n/v, change in bowel habits or abdominal pain. : No dysuria or gross hematuria. No symptoms of bladder outlet obstruction. Endo: Occasional hot flashes. No polyuria and polydipsia. No heat and cold intolerance. Musculoskeletal: No bone, back, joint and muscular pain. Derm: No current rash. No history of jaundice or diffuse pruritis. Heme: No unusual bleeding and unexplained bruising. Psych: Normal mood. Participation of a fellow, resident, medical student, or advanced practice provider student in performing the sensitive examination was discussed with the patient or authorized patient relations representative. The patient or authorized patient relations representative has agreed to proceed with the sensitive examination. Fiordaliza Gonzales LPN chaperoned. PHYSICAL EXAM: Vitals: Blood pressure 141/71, pulse 87, temperature 36.6 ?C (97.8 ?F), temperature source Temporal, height 165.8 cm (5' 5.26), weight 76.2 kg (168 lb), SpO2 97%. Well-appearing and in no acute distress. EYES: Sclerae are anicteric bilaterally. LYMPHATIC: There is no palpable cervical or supraclavicular adenopathy. CARDIOVASCULAR: Rhythm is regular. BREAST: At approximately the 11 o'clock position of the left breast there is a superficial mobile 2 x 2 cm firm mass. No left axillary adenopathy. ABDOMEN: The abdomen is nondistended. Extremities: No swelling or edema. SKIN: No jaundice. 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 - I reviewed the pathology with the patient and her . Although she has not yet had MRI of the liver, I recommended neoadjuvant chemoimmunotherapy with the KEYNOTE 522 regimen. Discussed that the goals of care are an increase in overall survival. - I discussed the rationale, logistics, potential risks (including but not limited to fatigue, alopecia, neuropathy, cardiomyopathy, leukemia, infections, autoimmune side effects and the small potential for as a consequence of severe toxicity/complications of therapy), benefits and alternatives, as well as the perso (more content not included)... [facility] 01-04-2025 History of Present illness Narrative Radiology Service Progress Note DATE OF SERVICE: January 04, 2025 TIME: 10:07 AM PATIENT IDENTITY VERIFICATION COMPLETED USING TWO (2) STANDARD IDENTIFIERS: Name and Date of confirmed by patient verbally and Name and Date of confirmed by identification band. FALL SCREENING: Has the patient had 2 falls in the last year or 1 fall with injury or currently using an Ambulatory Assistive Device (Walker, Cane, Wheelchair, Crutches, etc.)? No PATIENT GENDER DATA: Assigned female at . status: : No status: NO. PATIENT RELEVANT IMPLANT DATA REVIEWED: Yes PATIENT PRESENTS WITH AN IMPLANTABLE OR ATTACHED COMPUTER SYSTEM TECHNICIAN: No ALLERGIES: Reviewed and unchanged CONTRAST ALLERGY: NO. EXAM: MRI - CONTRAST TYPE: GROUP II PERIPHERAL IV DATA: Ambulatory: A peripheral IV was started in the Right antecubital site with a Angio cath: 22 gauge. RADIOLOGY DEPARTMENT: MR; Exam(s) Completed: Chest: Breast. Lavender Administered: No SIGNATURE: RT Daysi(R) PATIENT NAME: Liz Robles DATE: January 04, 2025 TIME: 10:07 AM documented in this encounter [facility] 01-04-2025 Note HNO ID: [id number] Author: CHUNG JACKSON RT(R) Service: Radiology Author Type: Technologist Type: Progress Notes Filed: 01/04/2025 10:07 Note Text: Radiology Service Progress Note DATE OF SERVICE: January 04, 2025 TIME: 10:07 AM PATIENT IDENTITY VERIFICATION COMPLETED USING TWO (2) STANDARD IDENTIFIERS: Name and Date of confirmed by patient verbally and Name and Date of confirmed by identification band. FALL SCREENING: Has the patient had 2 falls in the last year or 1 fall with injury or currently using an Ambulatory Assistive Device (Walker, Cane, Wheelchair, Crutches, etc.)? No PATIENT GENDER DATA: Assigned female at . status: : No status: NO. PATIENT RELEVANT IMPLANT DATA REVIEWED: Yes PATIENT PRESENTS WITH AN IMPLANTABLE OR ATTACHED COMPUTER SYSTEM TECHNICIAN: No ALLERGIES: Reviewed and unchanged CONTRAST ALLERGY: NO. EXAM: MRI - CONTRAST TYPE: GROUP II PERIPHERAL IV DATA: Ambulatory: A peripheral IV was started in the Right antecubital site with a Angio cath: 22 gauge. RADIOLOGY DEPARTMENT: MR; Exam(s) Completed: Chest: Breast. Lavender Administered: No SIGNATURE: RT Daysi(R) PATIENT NAME: Liz Robles DATE: January 04, 2025 TIME: 10:07 AM [facility] 12-27-2024 Telephone encounter Note Called and spoke to patient regarding her upcoming appointment on 01/06 with . Asked pt where she received her imaging and biopsy at. She stated biopsy was done in office at [facility]. Her imaging was done at [facility]. I informed her I will be requesting her imaging for review. She verbalized understanding. Imaging received and what (MMG/US/MRI - radiology reviewed yet? Requesting from [facility] Pathology slides sent / reviewed? In epic Consults: Breast psych not this time Med onc yes Rad onc yes Plastics no pt declined. MRI not as of yet order is in system. Pt thanked me for calling her. Yesi Plascencia LPN [facility] Work Phone: 12-27-2024 Miscellaneous Notes Called and spoke to patient regarding her upcoming appointment on 01/06 with . Asked pt where she received her imaging and biopsy at. She stated biopsy was done in office at [facility]. Her imaging was done at [facility]. I informed her I will be requesting her imaging for review. She verbalized understanding. Imaging received and what (MMG/US/MRI - radiology reviewed yet? Requesting from [facility] Pathology slides sent / reviewed? In epic Consults: Breast psych not this time Med onc yes Rad onc yes Plastics no pt declined. MRI not as of yet order is in system. Pt thanked me for calling her. Yesi Plascencia LPN documented in this encounter [facility] 12-21-2024 Telephone encounter Note Spoke with patient who stated [place] and received another message with number to call imaging and will do that when she is able. [facility] Work Phone: 12-21-2024 Miscellaneous Notes Spoke with patient who stated she is currently out of the country and received another message with number to call imaging and will do that when she is able. Please review and advise on My Chart request. Of course 01/03 is not going to happen due to it being a holiday. If office visit needed, would this be in person or phone call. Thank you. documented in this encounter [facility] 12-21-2024 Telephone encounter Note sent my chart message to patient , was instructed to have patient call central scheduling to schedule MRI of Breast and Liver Ovidio Garcias [facility] 12-21-2024 Telephone encounter Note Please review and advise on My Chart request. Of course 01/03 is not going to happen due to it being a holiday. If office visit needed, would this be in person or phone call. Thank you. [facility] 12-14-2024 History of Present illness Narrative Radiology Service Progress Note DATE OF SERVICE: December 14, 2024 TIME: 1:17 PM PATIENT WEIGHT: 168 LBS PATIENT IDENTITY VERIFICATION COMPLETED USING TWO (2) STANDARD IDENTIFIERS: Name and Date of confirmed by patient verbally. FALL SCREENING: Has the patient had 2 falls in the last year or 1 fall with injury or currently using an Ambulatory Assistive Device (Walker, Cane, Wheelchair, Crutches, etc.)? No PATIENT GENDER DATA: Assigned female at . status: : No status: NO. ALLERGIES: Reviewed and unchanged CONTRAST ALLERGY: No EXAM: CT -CONTRAST INDUCED NEPHROPATHY RISK FACTORS: Patient age > 60 years CREATININE: Creatinine Date Value Ref Range Status 12/08/2024 0.77 0.58 - 0.96 mg/dL Final Estimated Glomerular Filtration Rate Date Value Ref Range Status 12/08/2024 83 >=60 mL/min/1.73m Final Comment: Estimated Glomerular Filtration Rate (eGFR) is calculated using the 2020 CKD-EPI creatinine equation. This equation utilizes serum creatinine, sex, and age as parameters. The creatinine assay has traceable calibration to isotope dilution-mass spectrometry. Refer to KDIGO guidelines for clinical interpretation. In patients with unstable renal function, e.g. those with acute kidney injury, the eGFR may not accurately reflect actual GFR. P.O.C.T. RESULTS: N/A December 14, 2024 TREATMENT: No Hydration needed. IV SITE: Ambulatory: A peripheral IV was started in the antecubital site with a Angio cath: 22 gauge. and A Saline lock was inserted per protocol IV SITE APPEARANCE: Clean,Dry and Intact SIGNATURE: Sylvie Gonzalez RN PATIENT NAME: Liz Robles DATE: December 14, 2024 TIME: 1:17 PM Radiology Service Progress Note PATIENT NAME: Liz Robles DATE OF SERVICE: December 14, 2024 TIME: 1:59 PM PATIENT IDENTITY VERIFICATION COMPLETED USING TWO (2) IDENTIFIERS: Name and Date of confirmed by patient verbally. FALL SCREENING: Has the patient had 2 falls in the last year or 1 fall with injury or currently using an Ambulatory Assistive Device (Walker, Cane, Wheelchair, Crutches, etc.)? No PATIENT GENDER DATA: Assigned female at . status: : No status: NO. PATIENT RELEVANT IMPLANT DATA REVIEWED: Yes PATIENT PRESENTS WITH AN IMPLANTABLE OR ATTACHED COMPUTER SYSTEM TECHNICIAN: No RADIOLOGY DEPARTMENT: CT; Exam(s) Completed: Chest Abdomen Pelvis PERIPHERAL IV DATA: Site assessment: Clean,Dry and Intact, Site disposition Discontinued SIGNED BY: RT Micheline(R) December 14, 2024 1:59 PM documented in this encounter [facility] 12-14-2024 Note HNO ID: [id number] Author: SYLVIE GONZALEZ RN Service: Radiology Author Type: Registered Nurse Type: Progress Notes Filed: 12/14/2024 13:45 Note Text: Radiology Service Progress Note DATE OF SERVICE: December 14, 2024 TIME: 1:17 PM PATIENT WEIGHT: 168 LBS PATIENT IDENTITY VERIFICATION COMPLETED USING TWO (2) STANDARD IDENTIFIERS: Name and Date of confirmed by patient verbally. FALL SCREENING: Has the patient had 2 falls in the last year or 1 fall with injury or currently using an Ambulatory Assistive Device (Walker, Cane, Wheelchair, Crutches, etc.)? No PATIENT GENDER DATA: Assigned female at . status: : No status: NO. ALLERGIES: Reviewed and unchanged CONTRAST ALLERGY: No EXAM: CT -CONTRAST INDUCED NEPHROPATHY RISK FACTORS: Patient age > 60 years CREATININE: Creatinine Date Value Ref Range Status 12/08/2024 0.77 0.58 - 0.96 mg/dL Final Estimated Glomerular Filtration Rate Date Value Ref Range Status 12/08/2024 83 >=60 mL/min/1.73m? Final Comment: Estimated Glomerular Filtration Rate (eGFR) is calculated using the 2020 CKD-EPI creatinine equation. This equation utilizes serum creatinine, sex, and age as parameters. The creatinine assay has traceable calibration to isotope dilution-mass spectrometry. Refer to KDIGO guidelines for clinical interpretation. In patients with unstable renal function, e.g. those with acute kidney injury, the eGFR may not accurately reflect actual GFR. P.O.C.T. RESULTS: N/A December 14, 2024 TREATMENT: No Hydration needed. IV SITE: Ambulatory: A peripheral IV was started in the antecubital site with a Angio cath: 22 gauge. and A Saline lock was inserted per protocol IV SITE APPEARANCE: Clean,Dry and Intact SIGNATURE: Sylvie Gonzalez RN PATIENT NAME: Liz Robles DATE: December 14, 2024 TIME: 1:17 PM [facility] 12-14-2024 Note HNO ID: [id number] Author: ELKE GARCIAS RT(R) Service: Radiology Author Type: Photography Professor Type: Progress Notes Filed: 12/14/2024 14:00 Note Text: Radiology Service Progress Note PATIENT NAME: Liz Robles DATE OF SERVICE: December 14, 2024 TIME: 1:59 PM PATIENT IDENTITY VERIFICATION COMPLETED USING TWO (2) IDENTIFIERS: Name and Date of confirmed by patient verbally. FALL SCREENING: Has the patient had 2 falls in the last year or 1 fall with injury or currently using an Ambulatory Assistive Device (Walker, Cane, Wheelchair, Crutches, etc.)? No PATIENT GENDER DATA: Assigned female at . status: : No status: NO. PATIENT RELEVANT IMPLANT DATA REVIEWED: Yes PATIENT PRESENTS WITH AN IMPLANTABLE OR ATTACHED COMPUTER SYSTEM TECHNICIAN: No RADIOLOGY DEPARTMENT: CT; Exam(s) Completed: Chest Abdomen Pelvis PERIPHERAL IV DATA: Site assessment: Clean,Dry and Intact, Site disposition Discontinued SIGNED BY: Elke Garcias RT(R) December 14, 2024 1:59 PM [facility] 12-14-2024 Note HNO ID: [id number] Author: ELKE GARCIAS RT(R) Service: ? Author Type: Photography Professor Type: Progress Notes Filed: 12/14/2024 13:11 Note Text: Radiology Service Progress Note PATIENT NAME: Liz Robles DATE OF SERVICE: December 14, 2024 TIME: 1:10 PM PATIENT IDENTITY VERIFICATION COMPLETED USING TWO (2) IDENTIFIERS: Name and Date of confirmed by patient verbally and Name and Date of confirmed by identification band. FALL SCREENING: Has the patient had 2 falls in the last year or 1 fall with injury or currently using an Ambulatory Assistive Device (Walker, Cane, Wheelchair, Crutches, etc.)? Emergency Room Patient: Screened in ED PATIENT GENDER DATA: Assigned female at . status: : No status: NO. PATIENT RELEVANT IMPLANT DATA REVIEWED: Yes PATIENT PRESENTS WITH AN IMPLANTABLE OR ATTACHED COMPUTER SYSTEM TECHNICIAN: No RADIOLOGY DEPARTMENT: CT; Exam(s) Completed: Abdomen/Pelvis PERIPHERAL IV DATA: Not applicable SIGNED BY: Elke Garcias RT(R) December 14, 2024 1:10 PM [facility] 12-14-2024 History of Present illness Narrative Radiology Service Progress Note PATIENT NAME: Liz Robles DATE OF SERVICE: December 14, 2024 TIME: 1:10 PM PATIENT IDENTITY VERIFICATION COMPLETED USING TWO (2) IDENTIFIERS: Name and Date of confirmed by patient verbally and Name and Date of confirmed by identification band. FALL SCREENING: Has the patient had 2 falls in the last year or 1 fall with injury or currently using an Ambulatory Assistive Device (Walker, Cane, Wheelchair, Crutches, etc.)? Emergency Room Patient: Screened in ED PATIENT GENDER DATA: Assigned female at . status: : No status: NO. PATIENT RELEVANT IMPLANT DATA REVIEWED: Yes PATIENT PRESENTS WITH AN IMPLANTABLE OR ATTACHED COMPUTER SYSTEM TECHNICIAN: No RADIOLOGY DEPARTMENT: CT; Exam(s) Completed: Abdomen/Pelvis PERIPHERAL IV DATA: Not applicable SIGNED BY: RT Micheline(R) December 14, 2024 1:10 PM documented in this encounter [facility] 12-13-2024 Telephone encounter Note Called patient to let her know that HER-2 results are still in process. We discussed that is HER-2 is negative, then this is a triple negative breast cancer. Triple negative breast cancer is considered a more aggressive form of breast cancer. If this is the result, she would likely require neoadjuvant chemotherapy. I will plan to call her back with the final HER-2 results once they are available. Lidia Hirsch DO [facility] Work Phone: 12-13-2024 Miscellaneous Notes Called patient to let her know that HER-2 results are still in process. We discussed that is HER-2 is negative, then this is a triple negative breast cancer. Triple negative breast cancer is considered a more aggressive form of breast cancer. If this is the result, she would likely require neoadjuvant chemotherapy. I will plan to call her back with the final HER-2 results once they are available. Lidia Hirsch DO documented in this encounter [facility] 12-13-2024 Note HNO ID: [id number] Author: ELKE KRUEGER RN Service: ? Author Type: Registered Nurse Type: Progress Notes Filed: 12/16/2024 11:15 Note Text: Radiation Therapy - Nursing Note (Consult) PATIENT NAME: Liz Robles PATIENT December 13, 2024 [facility] FACILITY/LOCATION: [place] Chief Complaint: consult Reason for visit: Consult. Referring physician: Internal provider Dr Hirsch Subjective Data: see pain assessment Additional Data Do you want to see a Parent Partner? No Are you interested in information about fertility? No Status: Post-menopausal Stress Scale: On a scale of 0 to 10, what number best describes how much distress you have experienced in the past week?(0 being no distress and 10 being extreme distress) 10 Social work notified: Pt denied need to see pediatric social worker at this time.Pt reports feeling anxious in the midst of the staging process and not having all of the answers SIGNED by: Elke Krueger RN [facility] 12-13-2024 History of Present illness Narrative Radiation Therapy - Nursing Note (Consult) PATIENT NAME: Liz Robles PATIENT December 13, 2024 [facility] FACILITY/LOCATION: [place] Chief Complaint: consult Reason for visit: Consult. Referring physician: Internal provider Dr Hirsch Subjective Data: see pain assessment Additional Data Do you want to see a Parent Partner? No Are you interested in information about fertility? 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 HPI: 69 year old female who presents with above diagnosis, for an opinion regarding the role of radiation therapy in the management of the patient's disease. Final recommendations will be communicated back to the requesting physician by way of the shared medical record, or letter to requesting physician via [place] mail. 69 year old woman who felt a lump in the left breast last month. Bilateral mammogram on 11/26/24 showed a 3 cm irregular focal asymmetry within the left breast at 9:00 middle depth. US of the left breast showed a 2.6 cm irregular hypoechoic mass within the left breast at 10:00, 4-5 cm from the nipple. Normal appearing lymph node is seen within the left axilla. Core biopsy of the left breast lesion on 12/01/24 showed at least grade 2 invasive carcinoma with apocrine features. It's ER negative (<1%), MS negative (<1%) and Her2 2+, FISH negative. CT scan of the C/A/P is scheduled tomorrow. ALLERGIES Allergen Reactions Dmsdbzv-Czu-Nlb Red* Myalgia Current Outpatient Medications on File Prior to Visit Medication Sig lisinopril (ZESTRIL) 5 mg tablet Take 2.5 mg by mouth once daily. omeprazole (PRILOSEC) 40 mg capsule Take 40 mg by mouth once daily. No current facility-administered medications on file prior to visit. PAST MEDICAL HISTORY Diagnosis Date Essential hypertension Prior radiation therapy, collagen vascular disease, or inflammatory bowel disease: No Any implanted or external electric devices? No status: Post-menopausal. PAST SURGICAL HISTORY Procedure Laterality Date [id number]. hx of eye surgery FAMILY HISTORY Problem Relation Age of Onset Liver Disease Mother No Known Problems Father Breast Cancer Maternal Aunt Social History Tobacco Use Smoking status: Never Smokeless tobacco: Never Vaping Use Vaping status: Never Used Substance Use Topics Alcohol use: Not Currently Drug use: Not Currently COMPLETE REVIEW OF SYSTEMS: GENERAL: feeling well without fatigue, no recent change in weight HEENT: denies COLE, change in hearing or vision, no other ENT complaints NECK: denies swelling or pain in neck RESPIRATORY: mild dry cough attributed to allergies. CARDIOVASCULAR: no chest pain, no palpitations GI: normal appetite, tolerating PO well, BMs normal, and no abdominal pain : urination is normal MUSCULOSKELETAL: denies any painful or swollen joints, no muscle aches SKIN: no rash HEMATOLOGY/LYMPHOLOGY: negative for prolonged bleeding, no swollen lymph nodes NEURO: no numbness or paresthesias and no weakness of the extremities PHYSICAL EXAM: VS: BP 140/83 Pulse 86 Temp 36.2 C (97.2 F) (Temporal) Resp 14 Wt 76.2 kg (168 lb) LMP (LMP Unknown) SpO2 97% BMI 27.96 kg/m KPS: 100 General Appearance: Alert and oriented. No acute distress. HEENT: NCAT. Sclera anicteric. EOMI. Neck: Normal ROM. Chest: No respiratory distress. Breasts: About 3 cm medial left breast mass. Abdomen: Soft. Nontender. Nondistended. Musculoskeletal: No edema. Normal ROM in extremities. Neuro: Speech fluent. Gait normal. No focal deficits. Skin: No rashes noted Lymphatics: No palpable cervical or supraclavicular or axillary adenopathy. Hematologic: No signs of active bleeding. 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 I discussed the role of radiation treatment after breast conserving surgery and also discussed about postmastectomy radiation treatment. She has staging CT C/A/P scheduled tomorrow. She has an international trip planned and is scheduled to see Dr. Martinez and Dr. Colby after she returns. She is considering mastectomy. I will see her again after her surgery to discuss indications of radiation treatment. Signed by: Sara Avalos MD cc: Babita Morataya [address] [place] [address] documented in this encounter [facility] 12-13-2024 Note HNO ID: [id number] Author: SARA AVALOS MD Service: ? 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 HPI: 69 year old female who presents with above diagnosis, for an opinion regarding the role of radiation therapy in the management of the patient's disease. Final recommendations will be communicated back to the requesting physician by way of the shared medical record, or letter to requesting physician via US mail. 69 year old woman who felt a lump in the left breast last month. Bilateral mammogram on 11/26/24 showed a 3 cm irregular focal asymmetry within the left breast at 9:00 middle depth. US of the left breast showed a 2.6 cm irregular hypoechoic mass within the left breast at 10:00, 4-5 cm from the nipple. Normal appearing lymph node is seen within the left axilla. Core biopsy of the left breast lesion on 12/01/24 showed at least grade 2 invasive carcinoma with apocrine features. It's ER negative (<1%), MS negative (<1%) and Her2 2+, FISH negative. CT scan of the C/A/P is scheduled tomorrow. ALLERGIES Allergen Reactions Vxqmyup-Boq-Nfo Red* Myalgia Current Outpatient Medications on File Prior to Visit Medication Sig lisinopril (ZESTRIL) 5 mg tablet Take 2.5 mg by mouth once daily. omeprazole (PRILOSEC) 40 mg capsule Take 40 mg by mouth once daily. No current facility-administered medications on file prior to visit. PAST MEDICAL HISTORY Diagnosis Date Essential hypertension Prior radiation therapy, collagen vascular disease, or inflammatory bowel disease: No Any implanted or external electric devices? No status: Post-menopausal. PAST SURGICAL HISTORY Procedure Laterality Date [id number]. hx of eye surgery FAMILY HISTORY Problem Relation Age of Onset Liver Disease Mother No Known Problems Father Breast Cancer Maternal Aunt Social History Tobacco Use Smoking status: Never Smokeless tobacco: Never Vaping Use Vaping status: Never Used Substance Use Topics Alcohol use: Not Currently Drug use: Not Currently COMPLETE REVIEW OF SYSTEMS: GENERAL: feeling well without fatigue, no recent change in weight HEENT: denies COLE, change in hearing or vision, no other ENT complaints NECK: denies swelling or pain in neck RESPIRATORY: mild dry cough attributed to allergies. CARDIOVASCULAR: no chest pain, no palpitations GI: normal appetite, tolerating PO well, BMs normal, and no abdominal pain : urination is normal MUSCULOSKELETAL: denies any painful or swollen joints, no muscle aches SKIN: no rash HEMATOLOGY/LYMPHOLOGY: negative for prolonged bleeding, no swollen lymph nodes NEURO: no numbness or paresthesias and no weakness of the extremities PHYSICAL EXAM: VS: BP 140/83 Pulse 86 Temp 36.2 ?C (97.2 ?F) (Temporal) Resp 14 Wt 76.2 kg (168 lb) LMP (LMP Unknown) SpO2 97% BMI 27.96 kg/m? KPS: 100 General Appearance: Alert and oriented. No acute distress. HEENT: NCAT. Sclera anicteric. EOMI. Neck: Normal ROM. Chest: No respiratory distress. Breasts: About 3 cm medial left breast mass. Abdomen: Soft. Nontender. Nondistended. Musculoskeletal: No edema. Normal ROM in extremities. Neuro: Speech fluent. Gait normal. No focal deficits. Skin: No rashes noted Lymphatics: No palpable cervical or supraclavicular or axillary adenopathy. Hematologic: No signs of active bleeding. 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 I discussed the role of radiation treatment after breast conserving surgery and also discussed about postmastectomy radiation treatment. She has staging CT C/A/P scheduled tomorrow. She has an international trip planned and is scheduled to see Dr. Martinez and Dr. Colby after she returns. She is considering mastectomy. I will see her again after her surgery to discuss indications of radiation treatment. Signed by: Sara Avalos MD cc: Babita Morataya [facility] [place] [address] [facility] 12-09-2024 Telephone encounter Note Spoke with patient and scheduled with Dr. Avalos on 12/13 at 9:30 Sylwia Sanchez [facility] 12-09-2024 Miscellaneous Notes Spoke with patient and scheduled with Dr. Avalos on 12/13 at 9:30 Sylwia Sanchez See below. Patient also needs to see Dr. Avalos. Winsome Gonzales LPN Spoke w pt and the next available is 12/[address] Martinez, she leaves for [facility] on the so she wants to kepp her scheduled appt. Markie Cazares PSS- please schedule patient to see Dr. Martinez sooner than 01/04/2025. She also needs to see Dr. Avalos. Winsome Gonzales LPN Dr. Hirsch spoke with me about her this after at the hospital. I should see her sooner than the . Orville Martinez DO Please review and advise - med onc and rad onc. Appt had been scheduled for Dr. Martinez for 01/04, however, once reviewed, we can reschedule if needed CONSULT TO ONCOLOGY Status: Needs Scheduling Requested appt date: Authorizing: iLdia Hirsch DO in [facility] Referral: [id number] (Authorized) Expires: 12/08/2025 Priority: Routine Diagnosis: Breast cancer, stage 2, left (HCC) [C50.912] Malignant neoplasm of upper-inner quadrant of left breast in female, estrogen re... documented in this encounter [facility] 12-09-2024 Telephone encounter Note See below. Patient also needs to see Dr. Avalos. Winsome Gonzales LPN [facility] 12-09-2024 Telephone encounter Note Spoke w pt and the next available is 12/[address] Martinez, she leaves for [facility] on the so she wants to kepp her scheduled appt. Markie Cazares [facility] 12-08-2024 Telephone encounter Note PSS- please schedule patient to see Dr. Martinez sooner than 01/04/2025. She also needs to see Dr. Avalos. Winsome Gonzales LPN [facility] 12-08-[address] Hirsch spoke with me about her this after at the hospital. I should see her sooner than the . Orville Martinez DO [facility] Work Phone: 12-08-2024 Telephone encounter Note Talking with patient she would like to know the result of the other tests that were done for more details of her cancer diag. Can you please call her Dr. Hirsch or clinical staff. Liz Treviño [facility] 12-08-2024 Miscellaneous Notes Talking with patient she would like to know the result of the other tests that were done for more details of her cancer diag. Can you please call her Dr. Hirsch or clinical staff. Liz Treviño documented in this encounter [facility] 12-08-2024 Telephone encounter Note Please review and advise - med onc and rad onc. Appt had been scheduled for Dr. Martinez for 01/04, however, once reviewed, we can reschedule if needed CONSULT TO ONCOLOGY Status: Needs Scheduling Requested appt date: Authorizing: Lidia Hirsch DO in [facility] Referral: [id number] (Authorized) Expires: 12/08/2025 Priority: Routine Diagnosis: Breast cancer, stage 2, left (HCC) [C50.912] Malignant neoplasm of upper-inner quadrant of left breast in female, estrogen re... [facility] Work Phone: 12-08-2024 Note HNO ID: [id number] Author: LIDIA HIRSCH DO Service: ? Author Type: Physician Type: Progress Notes Filed: 12/08/2024 13:20 Note Text: GENERAL SURGERY FOLLOW UP Liz is a 69-year-old female presenting for follow-up on left breast core needle biopsy results. Her accompanies her today. She was last seen in office in [place] one week ago for a left breast mass. Initial mammogram showed a 3 cm mass in the left breast, with no evidence of invasion into the chest wall. A core needle biopsy was obtained. Final pathology revealed invasive carcinoma with apocrine features, [place] grade 2. She endorses improving pain and resolving ecchymosis at the biopsy site. We reviewed in detail the pathology results and she was provided printed copies of her pathology report, imaging reports, and an outline of her clinical staging. She reports new onset of diarrhea since the last visit. Some chest discomfort. She denies hematochezia, new abdominal pain, dyspnea, cough, wheezing, bone pain, arthralgia, or paresthesia. Liz has upcoming travel plans to [place] from the to the and a fishing trip to [place] in mid-January, which she is considering canceling. She also has a boat trip to the [place] in February and another trip planned for April. Respiratory: (-) shortness of breath, (-) cough, (-) wheezing Gastrointestinal: (+) diarrhea, (-) blood in stool, (-) abdominal pain Musculoskeletal: (-) bone pain, (-) joint pain Neurological: (-) dizziness, (-) numbness, (-) tingling Psychiatric: (+) anxiety 10 point review of systems completed and is otherwise negative On exam: 12/08/24 1038 BP: 147/75 BP Site: Left Arm BP Position: Sitting BP Cuff Size: Large Adult Gen: NAD, well-nourished Lungs: unlabored breathing, bilateral chest rise Breast: Left breast biopsy site healing well with mild resolving ecchymosis. Mildly ttp. No palpable left axillary lymphadenopathy. Participation of a fellow, resident, medical student, or advanced practice provider student in performing the sensitive examination was discussed with the patient or authorized patient relations representative. The patient or authorized patient relations representative has agreed to proceed with the sensitive examination. Pathology: Component FINAL DIAGNOSIS Left breast, core biopsy: Invasive carcinoma with apocrine features, at least [place] grade 2; see comment. at 1554 EDT Diagnosis Comment The biopsy shows an invasive carcinoma composed of scattered nests and short cords of tumor cells with ample eosinophilic granular cytoplasm and pleomorphic, hyperchromatic nuclei with prominent nucleoli in a background of fibrous tissue with a prominent lymphocytic infiltrate. The following immunohistochemical stains were performed on block A1 and evaluated in the tumor cells: - Keratin AE1/3: Positive - CAM5.2: Positive - GATA3: Positive - SOX10: Negative - ER: Negative - p63: No definite myoepithelial cell staining (scattered tumor cell staining noted) The findings are consistent with an invasive carcinoma with apocrine features, which measures up to 9.5 mm in this limited material. Results of quantitative ER, MS, and HER2 testing will follow in a linked report. Dr. Amanda Valencia has also reviewed this case and agrees with the diagnosis. Component ER status Negative (less than 1%) ER % staining <1 Estrogen Receptor (Staining Intensity) Not Applicable Estrogen Receptor Internal Control Present and Stained as Expected Estrogen Receptor External Control Present and Stained as Expected MS status Negative (less than 1%) MS % staining <1 Progesterone Receptor (Staining Intensity) Not Applicable Progesterone Receptor Internal Control Present and Stained as Expected Progesterone Receptor External Control Present and Stained as Expected HER2 IHC Status Equivocal for HER2 Overexpression HER2 IHC Score 2+ Tumor Type Primary Invasive Breast Carcinoma Breast Tumor Grade Grade 2 Assessment ASSESSMENT Breast cancer, stage 2, left (hcc) (primary encounter diagnosis) Malignant neoplasm of upper-inner quadrant of left breast in female, estrogen receptor negative (hcc) Infiltrating ductal carcinoma of left breast (hcc) Diarrhea, unspecified type RECOMMENDATION 1. Breast cancer, stage 2, left (HCC) (C50.912) Malignant neoplasm of upper-inner quadrant of left breast in female, estrogen receptor negative (HCC) (C50.212) Infiltrating ductal carcinoma of left breast (HCC) (C50.912) Biopsy results confirm invasive ductal carcinoma with apocrine features in the upper-inner quadrant of the left breast. Tumor size is approximately 3 cm, classifying it as T2. No evidence of lymph node involvement (N0) or metastasis (M0) based on current imaging and clinical evaluation. Estrogen receptor negative; HER2 status is equivocal, awaiting confirmation. Ad (more content not included)... [facility] 12-08-2024 History of Present illness Narrative Images from the original note were not included. GENERAL SURGERY FOLLOW UP Liz is a 69-year-old female presenting for follow-up on left breast core needle biopsy results. Her accompanies her today. She was last seen in office in [place] one week ago for a left breast mass. Initial mammogram showed a 3 cm mass in the left breast, with no evidence of invasion into the chest wall. A core needle biopsy was obtained. Final pathology revealed invasive carcinoma with apocrine features, [place] grade 2. She endorses improving pain and resolving ecchymosis at the biopsy site. We reviewed in detail the pathology results and she was provided printed copies of her pathology report, imaging reports, and an outline of her clinical staging. She reports new onset of diarrhea since the last visit. Some chest discomfort. She denies hematochezia, new abdominal pain, dyspnea, cough, wheezing, bone pain, arthralgia, or paresthesia. Liz has upcoming travel plans to [place] from the to the and a fishing trip to [place] in mid-January, which she is considering canceling. She also has a boat trip to the [place] in February and another trip planned for April. Respiratory: (-) shortness of breath, (-) cough, (-) wheezing Gastrointestinal: (+) diarrhea, (-) blood in stool, (-) abdominal pain Musculoskeletal: (-) bone pain, (-) joint pain Neurological: (-) dizziness, (-) numbness, (-) tingling Psychiatric: (+) anxiety 10 point review of systems completed and is otherwise negative On exam: 12/08/24 1038 BP: 147/75 BP Site: Left Arm BP Position: Sitting BP Cuff Size: Large Adult Gen: NAD, well-nourished Lungs: unlabored breathing, bilateral chest rise Breast: Left breast biopsy site healing well with mild resolving ecchymosis. Mildly ttp. No palpable left axillary lymphadenopathy. Participation of a fellow, resident, medical student, or advanced practice provider student in performing the sensitive examination was discussed with the patient or authorized patient relations representative. The patient or authorized patient relations representative has agreed to proceed with the sensitive examination. Pathology: Component FINAL DIAGNOSIS Left breast, core biopsy: Invasive carcinoma with apocrine features, at least [place] grade 2; see comment. at 1554 EDT Diagnosis Comment The biopsy shows an invasive carcinoma composed of scattered nests and short cords of tumor cells with ample eosinophilic granular cytoplasm and pleomorphic, hyperchromatic nuclei with prominent nucleoli in a background of fibrous tissue with a prominent lymphocytic infiltrate. The following immunohistochemical stains were performed on block A1 and evaluated in the tumor cells: - Keratin AE1/3: Positive - CAM5.2: Positive - GATA3: Positive - SOX10: Negative - ER: Negative - p63: No definite myoepithelial cell staining (scattered tumor cell staining noted) The findings are consistent with an invasive carcinoma with apocrine features, which measures up to 9.5 mm in this limited material. Results of quantitative ER, MS, and HER2 testing will follow in a linked report. Dr. Amanda Valencia has also reviewed this case and agrees with the diagnosis. Component ER status Negative (less than 1%) ER % staining <1 Estrogen Receptor (Staining Intensity) Not Applicable Estrogen Receptor Internal Control Present and Stained as Expected Estrogen Receptor External Control Present and Stained as Expected MS status Negative (less than 1%) MS % staining <1 Progesterone Receptor (Staining Intensity) Not Applicable Progesterone Receptor Internal Control Present and Stained as Expected Progesterone Receptor External Control Present and Stained as Expected HER2 IHC Status Equivocal for HER2 Overexpression HER2 IHC Score 2+ Tumor Type Primary Invasive Breast Carcinoma Breast Tumor Grade Grade 2 Assessment ASSESSMENT Breast cancer, stage 2, left (hcc) (primary encounter diagnosis) Malignant neoplasm of upper-inner quadrant of left breast in female, estrogen receptor negative (hcc) Infiltrating ductal carcinoma of left breast (hcc) Diarrhea, unspecified type RECOMMENDATION 1. Breast cancer, stage 2, left (HCC) (C50.912) Malignant neoplasm of upper-inner quadrant of left breast in female, estrogen receptor negative (HCC) (C50.212) Infiltrating ductal carcinoma of left breast (HCC) (C50.912) Biopsy results confirm invasive ductal carcinoma with apocrine features in the upper-inner quadrant of the left breast. Tumor size is approximately 3 cm, classifying it as T2. No evidence of lymph node involvement (N0) or metastasis (M0) based on current imaging and clinical evaluation. Estrogen receptor negative; HER2 status is equivocal, awaiting confirmation. Patient is clinically staged at 2A. - Ordered CT scan of chest, abdomen, and pelvis to rule out metastasis. - Ordered baseline lab work to assess liver and kidney function. - Referral to Dr. Martinez, oncologist, and Dr. Avalos, radiation oncologist, both in [place] for further evaluation and treatment planning. - Discussed surgical options including lumpectomy and mastectomy. Explained that lumpectomy will require radiation therapy post-operatively. - Referral to Dr. Mock and Dr. Colby for consultation on immediate reconstructive surgery. - Educated patient on the importance of completing staging workup before proceeding with surgery. - Advised patient to avoid heavy lifting (>15 lbs) and submerging incision in water for 2-4 weeks post-surgery. - Provided patient with educational materials and resources for support. - Patient understands and agrees with the treatment plan. 2. Diarrhea, unspecified type (R19.7) New onset of diarrhea, likely secondary to anxiety. No hematochezia reported. - Monitor symptoms; advised patient to report any changes or worsening. Lidia Hirsch DO December 08, 2024 12:56 PM documented in this encounter [facility] 12-01-2024 Note HNO ID: [id number] Author: EDILIA ARANGO, [employer] Service: ? Author Type: Technologist Type: Progress Notes Filed: 12/01/2024 15:29 Note Text: Radiology Service Progress Note PATIENT NAME: Liz Robles DATE OF SERVICE: December 01, 2024 TIME: 3:29 PM PATIENT IDENTITY VERIFICATION COMPLETED USING TWO (2) IDENTIFIERS: Name and Date of confirmed by patient verbally. FALL SCREENING: Has the patient had 2 falls in the last year or 1 fall with injury or currently using an Ambulatory Assistive Device (Walker, Cane, Wheelchair, Crutches, etc.)? No PATIENT GENDER DATA: Assigned female at . status: : No status: NO. PATIENT RELEVANT IMPLANT DATA REVIEWED: Not Applicable PATIENT PRESENTS WITH AN IMPLANTABLE OR ATTACHED COMPUTER SYSTEM TECHNICIAN: No RADIOLOGY DEPARTMENT: Mammography PERIPHERAL IV DATA: Not applicable SIGNED BY: Edilia Arango [employer] December 01, 2024 3:29 PM [facility] 12-01-2024 Note HNO ID: [id number] Author: JUANIS FOWLER RN Service: ? Author Type: Registered Nurse Type: Procedures Filed: 12/06/2024 10:04 Note Text: UNIVERSAL PROTOCOL / SAFETY CHECKLIST Procedure to be Performed: Left breast core needle biopsy under ultrasound guidanc Sign In: A Moment of CARE was completed. Appropriate PPE (Personal Protective Equipment) worn by all providers involved with the procedure. Special equipment utilized ultrasound. Patient/Surrogate Stated/Verified: Patient name, Date of , Relevant allergies, and The intended procedure Time Out: Relevant labs, photos, and/or imaging studies have been reviewed. Intended patient and procedure match the source document(s) (e.g. consent, HANDP, associated studies [imaging, pathology]) match the intended patient and procedure. Consent obtained and matches the intended procedure. Yes. Correct side/site has been marked and visible. Medications required for this procedure are verified. Fire risk assessed and is not applicable. Implants: Correct implant(s) confirmed including size and side. Expiration date(s) reviewed. Sign Out: Specimens are all correctly labeled and sent. All instruments, equipment, possible retained foreign bodies are accounted for. Yes. The post-procedure plan of care has been communicated to the patient or surrogate. [facility] 12-01-2024 Procedure note UNIVERSAL PROTOCOL / SAFETY CHECKLIST Procedure to be Performed: Left breast core needle biopsy under ultrasound guidanc Sign In: A Moment of CARE was completed. Appropriate PPE (Personal Protective Equipment) worn by all providers involved with the procedure. Special equipment utilized ultrasound. Patient/Surrogate Stated/Verified: Patient name, Date of , Relevant allergies, and The intended procedure Time Out: Relevant labs, photos, and/or imaging studies have been reviewed. Intended patient and procedure match the source document(s) (e.g. consent, H&P, associated studies [imaging, pathology]) match the intended patient and procedure. Consent obtained and matches the intended procedure. Yes. Correct side/site has been marked and visible. Medications required for this procedure are verified. Fire risk assessed and is not applicable. Implants: Correct implant(s) confirmed including size and side. Expiration date(s) reviewed. Sign Out: Specimens are all correctly labeled and sent. All instruments, equipment, possible retained foreign bodies are accounted for. Yes. The post-procedure plan of care has been communicated to the patient or surrogate. [facility] 12-01-2024 Procedure note UNIVERSAL PROTOCOL / SAFETY CHECKLIST Procedure to be Performed: Left breast core needle biopsy under ultrasound guidanc Sign In: A Moment of CARE was completed. Appropriate PPE (Personal Protective Equipment) worn by all providers involved with the procedure. Special equipment utilized ultrasound. Patient/Surrogate Stated/Verified: Patient name, Date of , Relevant allergies, and The intended procedure Time Out: Relevant labs, photos, and/or imaging studies have been reviewed. Intended patient and procedure match the source document(s) (e.g. consent, H&P, associated studies [imaging, pathology]) match the intended patient and procedure. Consent obtained and matches the intended procedure. Yes. Correct side/site has been marked and visible. Medications required for this procedure are verified. Fire risk assessed and is not applicable. Implants: Correct implant(s) confirmed including size and side. Expiration date(s) reviewed. Sign Out: Specimens are all correctly labeled and sent. All instruments, equipment, possible retained foreign bodies are accounted for. Yes. The post-procedure plan of care has been communicated to the patient or surrogate. BEDSIDE PROCEDURE NOTE PROCEDURE DATE: December 01, 2024 PROCEDURE START TIME: 12:30PM PRIMARY PROCEDURALIST: Lidia Hirsch DO INSTRUMENTATION DESIGNER(S): Juanis Fowler RN INFORMED CONSENT: Informed Consent obtained and on the chart UNIVERSAL PROTOCOL / SAFETY CHECKLIST Sign in Communication: Completed Time Out: Team Confirms the Correct Patient, Correct Procedure, Correct Site and Site Marking, Correct Position (if applicable), Prep and Dry Time (if applicable). Time: 12:31PM Affirmation of Time Out: YES Sign Out Discussion: Completed PROCEDURE: The patient was brought to the procedure room and positioned supine on the procedure table. A final timeout was performed. The left breast mass was identified with bedside ultrasound and marked. The left breast was prepped and draped in the usual sterile fashion. 10 cc of 1% lidocaine with epinephrine was injected for local under visualization. An 11 blade scalpel was used to create a stab incision. I attempted core needle biopsy with a 14 gauge core needle biopsy device, however the device misfired. A 18 gauge core needle biopsy device was then used to obtain 3 core needle biopsies. The biopsy specimens were placed in formalin and sent for pathology. Images were uploaded to the patient's electronic medical chart. An UltraClip Dual Trigger breast biopsy marker was then placed under ultrasound guidance. A 4-0 chromic suture was used to close the incision with one simple suture. Hemostasis was maintained throughout the procedure. The wound was dressed with steri-strips and an Opsite dressing. The patient tolerated the procedure well with no immediate complications. A mammogram was ordered to confirm biopsy clip placement. All needle and instrument counts were correct. SIGNATURE: Lidia Hirsch DO PATIENT NAME: Liz Robles DATE: December 01, 2024 TIME: 1:14 PM PAGER/CONTACT #: [phone] documented in this encounter [facility] 12-01-2024 Note HNO ID: [id number] Author: LIDIA HIRSCH DO Service: ? Author Type: Physician Type: Procedures Filed: 12/09/2024 10:09 Note Text: BEDSIDE PROCEDURE NOTE PROCEDURE DATE: December 01, 2024 PROCEDURE START TIME: 12:30PM PRIMARY PROCEDURALIST: Lidia Hirsch DO INSTRUMENTATION DESIGNER(S): Juanis Fowler RN INFORMED CONSENT: Informed Consent obtained and on the chart UNIVERSAL PROTOCOL / SAFETY CHECKLIST Sign in Communication: Completed Time Out: Team Confirms the Correct Patient, Correct Procedure, Correct Site and Site Marking, Correct Position (if applicable), Prep and Dry Time (if applicable). Time: 12:31PM Affirmation of Time Out: YES Sign Out Discussion: Completed PROCEDURE: The patient was brought to the procedure room and positioned supine on the procedure table. A final timeout was performed. The left breast mass was identified with bedside ultrasound and marked. The left breast was prepped and draped in the usual sterile fashion. 10 cc of 1% lidocaine with epinephrine was injected for local under visualization. An 11 blade scalpel was used to create a stab incision. I attempted core needle biopsy with a 14 gauge core needle biopsy device, however the device misfired. A 18 gauge core needle biopsy device was then used to obtain 3 core needle biopsies. The biopsy specimens were placed in formalin and sent for pathology. Images were uploaded to the patient's electronic medical chart. An UltraClip Dual Trigger breast biopsy marker was then placed under ultrasound guidance. A 4-0 chromic suture was used to close the incision with one simple suture. Hemostasis was maintained throughout the procedure. The wound was dressed with steri-strips and an Opsitedressing. The patient tolerated the procedure well with no immediate complications. A mammogram was ordered to confirm biopsy clip placement. All needle and instrument counts were correct. SIGNATURE: Lidia Hirsch DO PATIENT NAME: Liz Robles DATE: December 01, 2024 TIME: 1:14 PM PAGER/CONTACT #: [phone] [facility] 12-01-2024 Procedure note BEDSIDE PROCEDURE NOTE PROCEDURE DATE: December 01, 2024 PROCEDURE START TIME: 12:30PM PRIMARY PROCEDURALIST: Lidia Hirsch DO INSTRUMENTATION DESIGNER(S): Juanis Fowler RN INFORMED CONSENT: Informed Consent obtained and on the chart UNIVERSAL PROTOCOL / SAFETY CHECKLIST Sign in Communication: Completed Time Out: Team Confirms the Correct Patient, Correct Procedure, Correct Site and Site Marking, Correct Position (if applicable), Prep and Dry Time (if applicable). Time: 12:31PM Affirmation of Time Out: YES Sign Out Discussion: Completed PROCEDURE: The patient was brought to the procedure room and positioned supine on the procedure table. A final timeout was performed. The left breast mass was identified with bedside ultrasound and marked. The left breast was prepped and draped in the usual sterile fashion. 10 cc of 1% lidocaine with epinephrine was injected for local under visualization. An 11 blade scalpel was used to create a stab incision. I attempted core needle biopsy with a 14 gauge core needle biopsy device, however the device misfired. A 18 gauge core needle biopsy device was then used to obtain 3 core needle biopsies. The biopsy specimens were placed in formalin and sent for pathology. Images were uploaded to the patient's electronic medical chart. An UltraClip Dual Trigger breast biopsy marker was then placed under ultrasound guidance. A 4-0 chromic suture was used to close the incision with one simple suture. Hemostasis was maintained throughout the procedure. The wound was dressed with steri-strips and an Opsite dressing. The patient tolerated the procedure well with no immediate complications. A mammogram was ordered to confirm biopsy clip placement. All needle and instrument counts were correct. SIGNATURE: Lidia Hirsch DO PATIENT NAME: Liz Robles DATE: December 01, 2024 TIME: 1:14 PM PAGER/CONTACT #: [phone] [facility] 12-01-2024 Instructions Juanis Fowler RN - 12/01/2024 1:14 PM EDT The following instructions are important for you related to your office visit today with the [facility]. Instructions After OFFICE BASED BREAST BIOPSY Please do not take aspirin or other blood thinners for the next few days. After the procedure, Steri-Strips and a dressing will be placed on your small incision. The dressing may be removed in two to three days after the procedure. The Steri-Strips should be left in place until they fall off. If you have bleeding from the biopsy site, hold pressure with a clean gauze. If the bleeding continues, contact our office immediately. I recommend taking Advil or Tylenol for the discomfort. You should wear a comfortable but somewhat tight fitting bra. If you have significant bruising, an ice pack may improve your discomfort. Please make an appointment to return to our office in 1 week to see the MANUFACTURING ENGINEERING TECHNOLOGIST Elizabeth Esposito. If you note any additional difficulties, questions, or concerns, you should contact our office immediately @ [phone] and ask to be transferred to the General Surgery department. documented in this encounter [facility] 12-01-2024 History of Present illness Narrative Breast Services- History and Physical SERVICE DATE: 11/30/2024 REASON FOR TODAY'S VISIT: Left breast mass SUBJECTIVE: HISTORY of PRESENT ILLNESS: Liz Robles is a 69 year old female who presents to discuss results of recent mammogram which showed left breast mass 10 o'clock, 4-5 cm from the nipple. Patient states that she first noticed the lump in her breast about 2.5 weeks ago when she was in the shower. She admits that she does not performed regular self breast exams. One of her friends was recently diagnosed with breast cancer and so she decided to examine herself. She felt the lump and then followed up with her PCP who confirmed that it felt like a mass and imaging was required. She then completed a mammogram and left breast US at OSH and presents today to discuss the results and next steps for biopsy. BREAST RELATED HISTORY: Abnormal Mammogram: No prior abnormal mammograms. Notes that she has been told in the past that she has dense breast tissue and small masses may have been missed due to this. Breast Mass: Yes, left breast Axillary Mass: No Nipple Discharge: No Breast Pain: Yes, occasional spearmint brody or flash of pain across the left breast. Breast Biopsy: No prior Breast Biopsy Pathology: NA Breast cyst drainage: No Breast reduction: No Breast reconstruction: No Genetic testing: No Prior personal history of breast cancer: No OBSTETRIC HISTORY: Age when menses began: 121/2 Date of LMP: in 40s Breast feed: No Age at first live : 28 Hysterectomy: No Oophorectomy: No Exogenous hormone use: No FAMILY CANCER HISTORY: *Patient reports no known history of Paternal side of the family The patient is not of Ashkenazic Ancestry Breast Cancer: Maternal Aunt, diagnosed 78-80yo. Ovarian Cancer: No Colon Cancer: No Prostate Cancer: No Cervical Cancer: Maternal Aunt, diagnosed in 60s. Lung Cancer: Maternal Uncle, diagnosed in 70s. . Maternal Uncle, diagnosed is 70s. . Maternal Uncle, diagnosed in 70s, . PAST MEDICAL HISTORY: No past medical history on file. PAST SURGICAL HISTORY: No past surgical history on file. FAMILY HISTORY: No family history on file. SOCIAL HISTORY: Employer And Job Title: None on file Years Of Education Completed: Not specified Marital Status: Social History Tobacco Use Smoking status: Never Smokeless tobacco: Never Drug Use: Not on file CURRENT MEDICATIONS: No prescriptions on file. ALLERGIES: ALLERGIES No Known Allergies REVIEW OF SYSTEMS: GENERAL: No weight loss, malaise or fevers. HEENT: Negative for frequent or significant headaches, No changes in hearing or vision, no nose bleeds or other nasal problems RESPIRATORY: Negative for cough, hemoptysis, wheezing or shortness of breath CARDIOVASCULAR: Negative for chest pain, leg swelling or palpitations. GI: No nausea, vomiting, or diarrhea : No history of dysuria, frequency or incontinence. 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 MUSCULOSKELETAL: Negative for joint pain or swelling, back pain or muscle pain. SKIN: Denies chronic skin conditions. PSYCH: Denies history of psychiatric illness. All other reviewed and negative other than HPI. OBJECTIVE: PHYSICAL EXAM: There were no vitals taken for this visit. There is no height or weight on file to calculate BMI. GENERAL:well-nourished, healthy, female, alert and oriented x 3, calm SKIN:warm, dry, skin color, texture, turgor normal HEAD/EYES:normocephalic, atraumatic, and anicteric NECK: supple, symmetrical, no thyromegaly RESPIRATORY: Respirations regular & non-labored ABDOMEN: soft, nondistended. No hepatomegaly., No masses MUSCULOSKELETAL: No observed limitations in range of motion of upper extremities Patient ambulates independently LEFT BREAST: The breast skin and nipple areolar complexes appear normal without retraction or lesions. There is no nipple discharge. There is a palpable dominant mass in the upper inner quadrant of the left breast. No overlying skin changes. Area is mildly ttp. RIGHT BREAST: The breast skin and nipple areolar complexes appear normal without retraction or lesions. There is no nipple discharge. There is no dominant mass or clinical abnormality noted in right breast. LEFT REGIONAL LYMPH NODES: There is no concerning supraclavicular, infraclavicular or axillary lymphadenopathy RIGHT REGIONAL LYMPH NODES: There is no concerning supraclavicular, infraclavicular or axillary lymphadenopathy IMAGING: Screening Mammogram 11/26/2024 - obtained from OSH Breast Density: the breasts are heterogeneously dense, which may obscure small masses. There is a 3cm irregular focal asymmetry within the left breast at 9 o'clock, middle depth. This is seen in additional views and correlates with the patient's area of palpable/clinical concern. There is a calcification within the right breast. No additional significant masses, calcifications, or other findings BIRADS 0, incomplete: Ultrasound LEFT Breast 11/26/2024 - obtained from OSH There is a 2.6cm irregular hypoechoic mass within the left breast at 10 o'clock, 4-5cm from the nipple. There is posterior acoustic shadowing and increased vascularity. This correlates with the mammographic finding area of clinical concern. Normal appearing lymph node is seen within the left axilla BIRADS 4-5, biopsy follow up PATHOLOGY: NA ASSESSMENT: Liz Robles is a 69 year old female presenting with abnormal mammogram. Mammogram showed a left breast mass, upper inner quadrant. Core needle biopsy performed in office. Please see procedure note for details. PLAN: -Core needle biopsy performed in office -Post-procedure local wound care instructions provided to patient -Return to clinic in 1 week for wound check and to discuss pathology results My recommendation will be communicated back to the requesting physician by way of the shared record. Lidia Hirsch DO General Surgery documented in this encounter [facility] 12-01-2024 Note HNO ID: [id number] Author: LIDIA HIRSCH DO Service: ? Author Type: Physician Type: Progress Notes Filed: 12/09/2024 10:09 Note Text: Breast Services- History and Physical SERVICE DATE: 11/30/2024 REASON FOR TODAY'S VISIT: Left breast mass SUBJECTIVE: HISTORY of PRESENT ILLNESS: Liz Robles is a 69 year old female who presents to discuss results of recent mammogram which showed left breast mass 10 o'clock, 4-5 cm from the nipple. Patient states that she first noticed the lump in her breast about 2.5 weeks ago when she was in the shower. She admits that she does not performed regular self breast exams. One of her friends was recently diagnosed with breast cancer and so she decided to examine herself. She felt the lump and then followed up with her PCP who confirmed that it felt like a mass and imaging was required. She then completed a mammogram and left breast US at OSH and presents today to discuss the results and next steps for biopsy. BREAST RELATED HISTORY: Abnormal Mammogram: No prior abnormal mammograms. Notes that she has been told in the past that she has dense breast tissue and small masses may have been missed due to this. Breast Mass: Yes, left breast Axillary Mass: No Nipple Discharge: No Breast Pain: Yes, occasional spearmint brdoy or flash of pain across the left breast. Breast Biopsy: No prior Breast Biopsy Pathology: NA Breast cyst drainage: No Breast reduction: No Breast reconstruction: No Genetic testing: No Prior personal history of breast cancer: No OBSTETRIC HISTORY: Age when menses began: 121/2 Date of LMP: in 40s Breast feed: No Age at first live : 28 Hysterectomy: No Oophorectomy: No Exogenous hormone use: No FAMILY CANCER HISTORY: *Patient reports no known history of Paternal side of the family The patient is not of Ashkenazic Ancestry Breast Cancer: Maternal Aunt, diagnosed 78-80yo. Ovarian Cancer: No Colon Cancer: No Prostate Cancer: No Cervical Cancer: Maternal Aunt, diagnosed in 60s. Lung Cancer: Maternal Uncle, diagnosed in 70s. . Maternal Uncle, diagnosed is 70s. . Maternal Uncle, diagnosed in 70s, . PAST MEDICAL HISTORY: No past medical history on file. PAST SURGICAL HISTORY: No past surgical history on file. FAMILY HISTORY: No family history on file. SOCIAL HISTORY: Employer And Job Title: None on file Years Of Education Completed: Not specified Marital Status: Social History Tobacco Use Smoking status: Never Smokeless tobacco: Never Drug Use: Not on file CURRENT MEDICATIONS: No prescriptions on file. ALLERGIES: ALLERGIES No Known Allergies REVIEW OF SYSTEMS: GENERAL: No weight loss, malaise or fevers. HEENT: Negative for frequent or significant headaches, No changes in hearing or vision, no nose bleeds or other nasal problems RESPIRATORY: Negative for cough, hemoptysis, wheezing or shortness of breath CARDIOVASCULAR: Negative for chest pain, leg swelling or palpitations. GI: No nausea, vomiting, or diarrhea : No history of dysuria, frequency or incontinence. 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 MUSCULOSKELETAL: Negative for joint pain or swelling, back pain or muscle pain. SKIN: Denies chronic skin conditions. PSYCH: Denies history of psychiatric illness. All other reviewed and negative other than HPI. OBJECTIVE: PHYSICAL EXAM: There were no vitals taken for this visit. There is no height or weight on file to calculate BMI. GENERAL:well-nourished, healthy, female, alert and oriented x 3, calm SKIN:warm, dry, skin color, texture, turgor normal HEAD/EYES:normocephalic, atraumatic, and anicteric NECK: supple, symmetrical, no thyromegaly RESPIRATORY: Respirations regular AND non-labored ABDOMEN: soft, nondistended. No hepatomegaly., No masses MUSCULOSKELETAL: No observed limitations in range of motion of upper extremities Patient ambulates independently LEFT BREAST: The breast skin and nipple areolar complexes appear normal without retraction or lesions. There is no nipple discharge. There is a palpable dominant mass in the upper inner quadrant of the left breast. No overlying skin changes. Area is mildly ttp. RIGHT BREAST: The breast skin and nipple areolar complexes appear normal without retraction or lesions. There is no nipple discharge. There is no dominant mass or clinical abnormality noted in right breast. LEFT REGIONAL LYMPH NODES: There is no concerning supraclavicular, infraclavicular or axillary lymphadenopathy RIGHT REGIONAL LYMPH NODES: There is no concerning supraclavicular, infraclavicular or axillary lymphadenopathy IMAGING: Screening Mammogram 11/26/2024 - obtained from OSH Breast Density: the breasts are heterogeneously dense, which may obscure small masses. There is a 3cm irregular focal asymmetry within the l (more content not included)... [facility] 05-28-2024 Note Exercise nuclear stress test Patient was stressed according to Nirav protocol for [5:14] min achieving maximum [7] METs. Resting heart rate [87] bpm rosa to maximum heart rate of [157] bpm, [104]% of maximal age predicted heart rate. Resting blood pressure of [170/88] mmHg rosa to maximum blood pressure of [234/88] mmHg. The test was stopped due to chest pain. Patient complains of [chest pressure]. Symptoms resolved . 2 minutes after stress blood pressure was [228/96] and heart rate was [146]. Baseline EKG shows normal sinus rhythm with nonspecific ST changes. During the stress test mild worsening ST depressions were noted no arrhythmia was noted. Impression: Patient's stress test was terminated due to chest pain. During the stress test patient had mild worsening ST changes but did not reach cutoff. Suggest further workup During the stress test blood pressure was not controlled Digitally Signed by SUKHI PIZANO MD on 05/28/2024 08:03 AM [facility] 05-27-2024 Note Exam Date Time Procedure Performing Provider Status 05/27/24 11:32 AM Echocardiogram, Adult - CV Auth (Verified) [facility] 03-29-2023 Evaluation + Plan note Future Scheduled Tests Laboratory* Vitamin D Level 11/06/22 [facility] 03-29-2023 Note ORIGINAL EXAMINATION: BONE DENSITOMETRY 11/06/2022 11:29 am TECHNIQUE: A bone density dual x-ray absorptiometry (DEXA) scan was performed of the lumbar spine and left hip. COMPARISON: None. HISTORY: ORDERING SYSTEM PROVIDED HISTORY: Reason for Exam: Osteoporosis Screening FINDINGS: T Score Left Femoral Neck: -1.7 Left Femoral Neck: 0.661 (g/cm2) T Score Left Hip: -0.4 Left Hip: 0.897 (g/cm2) T Score Lumbar Spine: -3.6 Lumbar Spine: 0.651 (g/cmd2) IMPRESSION: Osteoporosis by WHO criteria. *By the World Health Organization criteria: (Comparing with young normal sex matched population) - Normal: T-score at or above -1 SD (standard deviation) - Osteopenia: T-score between -1 and -2.5 SD - Osteoporosis: T-score at or below -2.5 SD Interpreted by: Richar Govea DO Preliminary Report By: Richar Govea DO Electronically signed By Richar Govea DO Dictated Date: 11/06/2022 1:38:03 PM Prelim Date: 11/06/2022 1:38:35 PM Sign Date: 11/06/2022 1:38:35 PM Ordering Provider: [facility]03-29-2023 Note ORIGINAL EXAMINATION: BONE DENSITOMETRY 11/06/2022 11:29 am TECHNIQUE: A bone density dual x-ray absorptiometry (DEXA) scan was performed of the lumbar spine and left hip. COMPARISON: None. HISTORY: ORDERING SYSTEM PROVIDED HISTORY: Reason for Exam: Osteoporosis Screening FINDINGS: T Score Left Femoral Neck: -1.7 Left Femoral Neck: 0.661 (g/cm2) T Score Left Hip: -0.4 Left Hip: 0.897 (g/cm2) T Score Lumbar Spine: -3.6 Lumbar Spine: 0.651 (g/cmd2) IMPRESSION: Osteoporosis by WHO criteria. *By the World Health Organization criteria: (Comparing with young normal sex matched population) - Normal: T-score at or above -1 SD (standard deviation) - Osteopenia: T-score between -1 and -2.5 SD - Osteoporosis: T-score at or below -2.5 SD Interpreted by: Richar Govea DO Preliminary Report By: Richar Govea DO Electronically signed By Richar Govea DO Dictated Date: 11/06/2022 1:38:03 PM Prelim Date: 11/06/2022 1:38:35 PM Sign Date: 11/06/2022 1:38:35 PM [facility] Author Cuba Castro [facility] Note Date/Time February 27, 2025 10:4 8am [facility] Medical Records Department [address] [place] [address] Emergency Department Summary 02/27/25 MR#: [id number] Acct: [id number] Name: LIZ ROBLES Rep #:[id number] : 1955 69 From: Cuba Castro MD PCP: YEISON Vargas Status:PRE E R Location: ED HPI History of Present Illness Chief Complaint: Other, Pain/Inj Detail of Chief Complaint: Fecal impaction Informant: patient and spouse/S.O. Onset/Context/Timing Onset: - (Last normal bowel movement 2 to 3 days ago) Context: Gradual Onset Timing: Continuous Quality: Feels like there is something stuck feels like I have a rag in my rectum Location: Rectum Current Severity: Moderate Maximum Severity: Moderate Worsened by: Not able to go Relieved by: Nothing Associated Symptoms Associated Symptoms: Had near syncopal sewed while straining on the commode Narrative Narrative: Patient is a 69-year-old woman with history of breast cancer. Last chemo was Friday. Patient presents with no bowel movement to 3 days. She states she used a normal saline enema with no results. She feels as if something is stuck in her rectum a rag . Patient did have near syncopal show with shaking and near syncope while straining to have a bowel movement prior to presentation. She had no other symptoms. She has no documented fever. She has no respiratoryor urologic symptoms. Prior similar symptoms: No Recent Illness/Hospitalization: No PFSH PFSH Medical History Breast cancer Hypertension Cervical paraspinal muscle spasm GERD (gastroesophageal reflux disease) Retinal detachment High cholesterol Hx of cataract UTI (urinary tract infection) History of back problems Environmental allergies Seasonal allergies Hemorrhoids Home Medications ?Medication ?Instructions ?Recorded ?Last Taken ?Type omeprazole 40 mg capsule,delayed 40 mg PO DAILY #30 ca ps 12/03/21 Unknown Rx release diphenhydramine HCl 25 mg capsule 50 mg PO Q8H PRN all ergy symptoms 02/27/25 Unknown History (Benadryl) fluorometholone 0.1 % eye 1 drp LEFT EYE DAILY 5 Unknown History drops,suspension gabapentin 100 mg capsule 200 mg PO TID 02/27/25 Unkno wn History pembrolizumab 50 mg intravenous 200 mg IV 02/27/25 Unk nown History solution promethazine 25 mg tablet 25 mg PO TID PRN nausea and 02/27/25 Unknown History vomiting Allergy/AdvReac Type Severity Reaction Status Date / Time Lweagne-BAN-UgI Reductase AdvReac Pain in Verified 02/27/25 10:20 Inhibitor joints Family History Uncle Alcoholism Aunt Alcoholism Breast cancer Cancer ovarian Mother Liver disease Brother High cholesterol Social History household members: spouse housing: house Smoking Status: Never smoker alcohol intake: never substance use type: does not use what type of physical activity do you participate in: none ROS ROS ED Constitutional Constitutional ED: Denies chills, fever(s), subjective or sweats Eyes Eyes: Denies blurry vision or change in vision Cardiovascular Cardiovascular: Denies chest pain or palpitations Respiratory/Chest Respiratory/Chest: Denies cough, dyspnea or dyspnea on exertion Gastrointestinal Gastrointestinal: Reports abdominal pain and constipation; Denies diarrhea, melena, nausea or vomiting Genitourinary Genitourinary ED: Denies dysuria, hematuria or urinary frequency EXAM Physical Exam Const Vital Signs: 02/27/25 10:18 02/27/25 10:34 02/27/25 10:41 Temperature 98.4 F 98.4 F Temperature Source Oral Pulse Rate 100 100 Respiratory Rate 17 17 Respiratory Effort Normal Non-Labored Respiratory Pattern Normal Blood Pressure 123/54 H 123/54 H Blood Pressure Mean 77 77 Pulse Ox 100 100 Oxygen Delivery Method Room Air Positive well nourished and well developed Constitutional Narrative: Patient left decubitus position as I entered the room. She appears no obvious distress. General Appearance ED: well developed; Negative for pallor HEENT Reports moist mucous membranes HEENT Narrative: Alopecia. Ears normal. Nares patent. Eyes PERRL and EOMs intact bilaterally General Eye ED: Negative for scleral icterus Resp normal respiratory effort Cardio regular rate and regular rhythm GI non-tender, non-distended and no masses; Negative for hepatosplenomegaly GI Narrative: On rectal exam patient has evidence of prior hemorrhoids. The there is a significant fecal impaction noted. Extremity normal to inspection General Extremety ED: Negative for edema or tenderness General Extremity: Negative for edema Neuro oriented x3 and CN's II-XII intact bilaterally Sensorium / Orientation: alert Psych mental status grossly normal Skin no rashes or lesions noted, no wounds and skin turgor normal General Skin Exam: Negative for jaundice or pallor MDM MDM MDM Narrative Medical decision making narrative: Patient with fecal impaction. With nurse in room as executive administrative asst patient was digitally disimpacted. There was significant mount of stool that was removed. She had minimal bleeding. Will inform patient she may noted blood on the tissueor stool for the next day. Recommended increasing fluid intake and MiraLAX 1 cap a day for a week. She was told with the weather being very hot she will need to increase her fluid intake. Discharge Plan Triage Chief Complaint: Other, Pain/Inj ED Provider: Cuba Castro Dx/Rx/DC Orders Clinical Impression: Fecal impaction in rectum, History of hypertension, History of breast cancer, Vasovagal near syncope Instructions: ED Fecal Impaction, Treated, ED Near-Fainting- Vagal Reaction Prescriptions: No Action fluorometholone 0.1 % drops,suspension 1 drp LEFT EYE DAILY gabapentin 100 mg capsule 200 mg PO TID pembrolizumab 50 mg recon soln 200 mg IV promethazine 25 mg tablet 25 mg PO TID PRN (Reason: nausea and vomiting) diphenhydramine HCl [Benadryl] 25 mg capsule 50 mg PO Q8H PRN (Reason: allergy symptoms) omeprazole 40 mg capsule,delayed release(DR/EC) 40 mg PO DAILY Qty: 30 0RF Primary Care Provider: Babita Morataya NP Referrals: Babita Morataya NP, MANUFACTURING ENGINEERING TECHNOLOGIST-C [Primary Care Provider] - As Needed Activity Restrictions/Additional Instructions: 1. Recommend increase fluid intake especially with the hot muggy weather this summer. 2. Recommend 1 cap of MiraLAX daily for the next week. If you start to have loose stools back down to half Per day Print Language: Chilean Disposition Disposition: Home, Self Care What to do if you have Problems For any increased pain, shortness of breath, bleeding, nausea or vomiting, chestpain, or any unexpected problems, contact your Primary Care Provider. Call [facility] ([phone]) or report to the closest Emergency Room. Call 911 if necessary. 02/27/25 1048 <Electronically signed by Cuba Castro MD> Cosigner Signature (if applicable): CC: MANUFACTURING ENGINEERING TECHNOLOGIST-C Babita Morataya ~ Signed [facility] Work Phone: Evaluation + Plan note Future Appointments Appointment Date:10/16/2022 09:00:00 AM Scheduled Provider:BABITA MORATAYA Location:[facility] Appointment Type:PC Wellness Annual [facility] aluation + Plan note Future Appointments Appointment Date:05/28/2024 07:45:00 AM Scheduled Provider: Location:[facility] Appointment Type:HL Plain Stress Test [facility] Evaluation + Plan note Future Appointments Appointment Date:07/20/2024 08:45:00 AM Scheduled Provider:AMBER PIZANO Location:[facility] Appointment Type:CV OV Future Scheduled Tests Laboratory* N-Terminal proBNP 06/18/24 Radiology* CT Coronary Angiography w+w/o Contrast 05/28/24 * CT Coronary Extracardiac 05/28/24 [facility] Evaluation + Plan note Future Appointments Appointment Date:07/20/2024 08:45:00 AM Scheduled Provider:AMBER PIZANO Location:[facility] Appointment Type:CV OV Appointment Date:07/21/2024 11:00:00 AM Scheduled Provider:BABITA MORATAYA Location:[facility] Appointment Type:PC OV Future Scheduled Tests Radiology* CT Coronary Angiography w+w/o Contrast 05/28/24 * CT Coronary Extracardiac 05/28/24 [facility] evaluation note* Diagnosis Breast cancer, stage 2, left (HCC)- Primary Malignant neoplasm of upper-inner quadrant of left breast in female, estrogen receptor negative (HCC) Infiltrating ductal carcinoma of left breast (HCC) Diarrhea, unspecified type documented in this encounter [facility] note* Diagnosis Mass of upper inner quadrant of left breast- Primary Mass of upper inner quadrant of left breast documented in this encounter [facility] note* Diagnosis Malignant neoplasm of upper-inner quadrant of left breast in female, estrogen receptor negative (HCC) documented in this encounter [facility] note* Diagnosis Malignant neoplasm of upper-inner quadrant of left breast in female, estrogen receptor negative (HCC)- [facility] Malignant neoplasm of upper-inner quadrant of left breast in female, estrogen receptor negative (HCC)- Primary Breast cancer, stage 2, left (HCC) Lung nodules Other nonspecific abnormal finding of lung field Malignant neoplasm of upper-inner quadrant of left breast in female, estrogen receptor negative (HCC)- Primary 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, estrogen receptor negative (HCC) [facility] Diagnosis Endometrial thickening on ultrasound- Primary Increased endometrial stripe thickness Nonspecific (abnormal) findings on radiological and other examination of genitourinary organs Malignant neoplasm of upper-inner quadrant of left breast in female, estrogen receptor negative (HCC)- Primary 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, estrogen receptor negative (HCC) [facility] Diagnosis Malignant neoplasm of upper-inner quadrant of left breast in female, 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, estrogen receptor negative (HCC)- Primary 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, estrogen receptor negative (HCC) [facility] Diagnosis Malignant neoplasm of upper-inner quadrant of left breast in female, estrogen receptor negative (HCC)- Primary Malignant neoplasm of upper-inner quadrant of left breast in female, estrogen receptor negative (HCC)- Primary 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, estrogen receptor negative (HCC) [facility] Diagnosis Lesion of liver greater than 1 cm in diameter Malignant neoplasm of upper-inner quadrant of left breast in female, estrogen receptor negative (HCC) [facility] Diagnosis Malignant neoplasm of upper-inner quadrant of left breast in female, 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, estrogen receptor negative (HCC) [facility] Diagnosis Malignant neoplasm of upper-inner quadrant of left breast in female, estrogen receptor negative (HCC)- Primary 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) Enlarged lymph node Enlargement of lymph nodes [facility] Diagnosis 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)- [facility] Diagnosis Breast cancer, stage 2, left (HCC)- Primary [facility] Diagnosis Increased endometrial stripe thickness Nonspecific (abnormal) findings on radiological and other examination of genitourinary organs [facility] Diagnosis Encounter for education- Primary Counseling NOS [facility] Diagnosis Endometrial polyp- Primary Polyp of corpus uteri [facility] Diagnosis 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)- Primary Breast cancer, stage 2, left (HCC) Malignant neoplasm of upper-inner quadrant of left breast in female, estrogen receptor negative (HCC) Lung nodules Other nonspecific abnormal finding of lung field Malaise and fatigue Other malaise and fatigue Acquired hypothyroidism Unspecified hypothyroidism Hypoadrenalism (HCC) Glucocorticoid deficiency [facility] Diagnosis 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)- Primary Malignant neoplasm of upper-inner quadrant of left breast in female, estrogen receptor negative (HCC) [facility] Diagnosis 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)- Primary [facility] Diagnosis Malignant neoplasm of upper-inner quadrant of left breast in female, estrogen receptor negative (HCC)- Primary Breast cancer, stage 2, left (HCC) Lung nodules Other nonspecific abnormal finding of lung field [facility] Diagnosis Breast cancer, stage 2, left (HCC)- Primary Malignant neoplasm of upper-inner quadrant of left breast in female, estrogen receptor negative (HCC) Lung nodules Other nonspecific abnormal finding of lung field Malaise and fatigue Other malaise and fatigue Acquired hypothyroidism Unspecified hypothyroidism Hypoadrenalism (HCC) Glucocorticoid deficiency [facility] Diagnosis Malignant neoplasm of upper-inner quadrant of left breast in female, estrogen receptor negative (HCC) [facility] Diagnosis Malignant neoplasm of upper-inner quadrant of left breast in female, estrogen receptor negative (HCC)- Primary [facility] Diagnosis Malignant neoplasm of upper-inner quadrant of left breast in female, estrogen receptor negative (HCC)- Primary Malignant neoplasm of upper-inner quadrant of left breast in female, estrogen receptor negative (HCC) [facility] Diagnosis Malignant neoplasm of upper-inner quadrant of left breast in female, estrogen receptor negative (HCC)- Primary Breast cancer, stage 2, left (HCC) Lung nodules Other nonspecific abnormal finding of lung field documented in this encounter [facility] note* Diagnosis History of breast cancer- Primary Personal history of malignant neoplasm of breast Endometrial polyp Polyp of corpus uteri documented in this encounter [facility] note* Diagnosis Malignant neoplasm of upper-inner quadrant of left breast in female, estrogen receptor negative (HCC)- Primary Breast cancer, stage 2, left (HCC) Lung nodules Other nonspecific abnormal finding of lung field documented in this encounter [facility] noteNo assessment information availableWPremier Health [facility] Work Phone: Hospital course Narrative No data available for this section [facility] Hospital Discharge instructions No data available for this section [facility] Hospital Discharge instructionsAdditional Instructions 1. Recommend increase fluid intake especially with the hot muggy weather this summer. 2. Recommend 1 cap of MiraLAX daily for the next week. If you start to have loose stools back down to half Per dayWPremier [facility] Work Phone: Progress note No data available for this section [facility] Reason for referral (narrative)No reason for referral information availableWPremier Health [facility] Work Phone: Reason for visit Narrative* MRI/CT (Routine) - Closed Specialty Diagnoses / Procedures Referred By Contac t Referred To Contact CT IMAGING Diagnoses Malignant neoplasm of upper-inner quadrant of left breast in female, estrogen receptor negative (HCC) Procedures CT ABD/PEL W IVCON CT ABD & PELVIS W/CONTRAST Lidia Hirsch, DO [address] [place] [address] Phone: tel: fax: [place] [id number] Referral ID Status Reason Start Date Expiration Date V isits Requested Visits Authorized [id number] Closed Auto-Generate d Referral 12/08/2024 01/07/2026 1 1 [facility] for visit Narrative* MRI/CT (Routine) - Closed Specialty Diagnoses / Procedures Referred By Gregory eddy Referred To Contact MR IMAGING Diagnoses Malignant neoplasm of upper-inner quadrant of left breast in female, estrogen receptor negative (HCC) Procedures MRI BREAST WO/W IVCON BILATERAL MRI BREAST WITHOUT&WITH CONTRAST W/CAD BILATERAL Lidia Hirsch, DO [address] [place] [address] Phone: tel: fax: [place] [address] Referral ID Status Reason Start Date Expiration Date V isits Requested Visits Authorized [id number] Closed Auto-Generate d Referral 12/20/2024 01/19/2026 1 1 [facility] for visit Narrative* MRI/CT (Routine) - Closed Specialty Diagnoses / Procedures Referred By Gregory eddy Referred To Contact MR IMAGING Diagnoses Lesion of liver greater than 1 cm in diameter Procedures MRI LIVER WO/W IVCON MRI ABDOMEN W/O & W/CONTRAST MATERIAL Lidia Hirsch, DO [address] [place] [address] Phone: tel: fax: [place] [id number] Referral ID Status Reason Start Date Expiration Date V isits Requested Visits Authorized [id number] Closed Auto-Generate d Referral 12/23/2024 08/10/2025 1 1 [facility] for visit Narrative* Diagnostic Procedure Only (Routine) - Closed Specialty Diagnoses / Procedures Referred By Gregory eddy Referred To Contact [facility] Diagnoses Malignant neoplasm of upper-inner quadrant of left breast in female, estrogen receptor negative (HCC) Procedures US BIOPSY AXILLA LEFT BIOPSY MUSCLE PERCUTANEOUS NEEDLE BX/EXC [place] [address] [place] [address] Phone: tel: fax: [facility] [address] [place] [address] Referral ID Status Reason Start Date Expiration Date V isits Requested Visits Authorized [id number] Closed Auto-Generate d Referral 01/06/2025 02/05/2026 1 1 [facility] Summary Purpose Family History Relationship Condition Age at Onset Recorded Date/T devan uncle Alcoholism Unknown aunt Alcoholism Unknown Malignant neoplasm of breast Unknown Malignant neoplasm Unknown mother Disorder of liver Unknown brother High blood cholesterol Unknown No Family History Records Found Advance Directives Advance Directive Response Recorded Date/ Time Do you have a Healthcare Power of Menu Planner? No February 27, 2025 10:34am Chief Complaint and Reason for Visit Chief Complaint Admit Date OTHER PAIN February 27, 2025 10:1 6am Additional Source Comments Care Team (unrecognized sect ion and content) Care Team Personnel Name: BABITA MORATAYA INDUSTRIAL TRAINING SPECIALIST-[facility] Position: P4 Advanced Seat Installer Member Role: Primary Care Physician Address: Address: [facility] [facility] [place] [address]- Care Team Related Persons Name: WILBERTO ARTEM Address: Home [address] [place], [place] [id number] Patient Care team informatio n (unrecognized section and content) Security Researcher Relationship Specialty Start Date End Date Babita Morataya APRN.SURVEY RESEARCH MANAGER [address] [place] [address] PCP - General Family Medicine 12/01/24 Security Researcher Relationship Specialty Start Date End Date Babita Morataya APRN.SHAQ [address] [place] [address] PCP - General Family Medicine 12/01/24 Security Researcher Relationship Specialty Start Date End Date Babita Morataya APRN.SURVEY RESEARCH MANAGER [address] [place] [address] PCP - General Family Medicine 12/01/24 Sara Avalos MD [address] [place] [address] Physician Radiation Oncology 12/09/24 Security Researcher Relationship Specialty Start Date End Date Babita Morataya, INDUSTRIAL TRAINING SPECIALIST.SURVEY RESEARCH MANAGER [address] [place] [place] [address] PCP - General Family Medicine 12/01/24 Sara Avalos MD [address] [place] [address] Physician Radiation Oncology 12/09/24 Security Researcher Relationship Specialty Start Date End Date Babita Morataya, INDUSTRIAL TRAINING SPECIALIST.SURVEY RESEARCH MANAGER [address] [place] [place] [address] PCP - General Family Medicine 12/01/24 Sara Avalos MD [address] [place] [address] Physician Radiation Oncology 12/09/24 Security Researcher Relationship Specialty Start Date End Date Babita Morataya, INDUSTRIAL TRAINING SPECIALIST.SURVEY RESEARCH MANAGER [address] [place] [address] PCP - General Family Medicine 12/01/24 Sara Avalos MD [address] [place] [address] Physician Radiation Oncology 12/09/24 Security Researcher Relationship Specialty Start Date End Date Babita Morataya, INDUSTRIAL TRAINING SPECIALIST.SURVEY RESEARCH MANAGER [address] [place] [address] PCP - General Family Medicine 12/01/24 Sara Avalos MD [address] [place] [address] Physician Radiation Oncology 12/09/24 Security Researcher Relationship Specialty Start Date End Date Babita Morataya, INDUSTRIAL TRAINING SPECIALIST.SURVEY RESEARCH MANAGER [address] [place] [address] PCP - General Family Medicine 12/01/24 Sara Avalos MD [address] [place] [address] Physician Radiation Oncology 12/09/24 Security Researcher Relationship Specialty Start Date End Date Babita Morataya, INDUSTRIAL TRAINING SPECIALIST.SURVEY RESEARCH MANAGER [address] [place] [address] PCP - General Family Medicine 12/01/24 Sara Avalos MD [address] [place] [address] Physician Radiation Oncology 12/09/24 Security Researcher Relationship Specialty Start Date End Date Babita Morataya, INDUSTRIAL TRAINING SPECIALIST.SURVEY RESEARCH MANAGER [address] [place] [address] PCP - General Family Medicine 12/01/24 Sara Avalos MD [address] [place] [address] Physician Radiation Oncology 12/09/24 Lidia Hirsch DO [address] [place] [address] General Surgery 01/04/25 Security Researcher Relationship Specialty Start Date End Date Babita Morataya, INDUSTRIAL TRAINING SPECIALIST.SURVEY RESEARCH MANAGER [address] [place] [address] PCP - General Family Medicine 12/01/24 Sara Avalos MD [address] [place] [address] Physician Radiation Oncology 12/09/24 Lidia Hirsch DO [address] [place] [address] General Surgery 01/04/25 Security Researcher Relationship Specialty Start Date End Date Babita Morataya APRN.SURVEY RESEARCH MANAGER [address] [place] [address] PCP - General Family Medicine 12/01/24 Sara Avalos MD [address] [place] [address] Physician Radiation Oncology 12/09/24 Lidia Hirsch DO [address] [place] [address] General Surgery 01/04/25 Security Researcher Relationship Specialty Start Date End Date Babita Morataya APRN.SURVEY RESEARCH MANAGER [address] [place] [address] PCP - General Family Medicine 12/01/24 Sara Avalos MD [address] [place] [address] Physician Radiation Oncology 12/09/24 Lidia Hirsch DO [address] [place] [address] General Surgery 01/04/25 Security Researcher Relationship Specialty Start Date End Date Babita Morataya INDUSTRIAL TRAINING SPECIALIST.SURVEY RESEARCH MANAGER [address] [place] [address] PCP - General Family Medicine 12/01/24 Sara Avalos MD [address] [address] Physician Radiation Oncology 12/09/24 Lidia Hirsch DO [address] [place] [address] General Surgery 01/04/25 Security Researcher Relationship Specialty Start Date End Date Babita Morataya, INDUSTRIAL TRAINING SPECIALIST.SURVEY RESEARCH MANAGER [address] [place] [address] PCP - General Family Medicine 12/01/24 Sara Avalos MD [address] [place], [place] [address] [phone] Physician Radiation Oncology 12/09/24 Ldiia Hirsch DO [address] [place] [address] General Surgery 01/04/25 Security Researcher Relationship Specialty Start Date End Date Babita Morataya, INDUSTRIAL TRAINING SPECIALIST.SURVEY RESEARCH MANAGER [address] [place] [address] PCP - General Family Medicine 12/01/24 Sara Avalos MD [address] [place] [address] Physician Radiation Oncology 12/09/24 Lidia Hirsch DO [address] [place] [address] General Surgery 01/04/25 Security Researcher Relationship Specialty Start Date End Date Babita Morataya APRN.SURVEY RESEARCH MANAGER [address] [place] [address] PCP - General Family Medicine 12/01/24 Sara Avalos MD [address] [place] [address] Physician Radiation Oncology 12/09/24 Lidia Hirsch DO [address] [place] [address] General Surgery 01/04/25 Security Researcher Relationship Specialty Start Date End Date Babita Morataya, INDUSTRIAL TRAINING SPECIALIST.SURVEY RESEARCH MANAGER [address] [place] [address] PCP - General Family Medicine 12/01/24 Sara Avalos MD [address] [place] [address] Physician Radiation Oncology 12/09/24 Lidia Hirsch DO [address] [place] [address] General Surgery 01/04/25 Security Researcher Relationship Specialty Start Date End Date Babita Morataya, INDUSTRIAL TRAINING SPECIALIST.SURVEY RESEARCH MANAGER [address] [place] [address] PCP - General Family Medicine 12/01/24 Sara Avalos MD [address] [place] [address] Physician Radiation Oncology 12/09/24 Lidia Hirsch DO [address] [place] [address] General Surgery 01/04/25 Security Researcher Relationship Specialty Start Date End Date Babita Morataya APRN.SURVEY RESEARCH MANAGER [address] [place] [address] PCP - General Family Medicine 12/01/24 Sara Avalos MD [address] [place] [address] Physician Radiation Oncology 12/09/24 Lidia Hirsch DO [address] [place] [address] General Surgery 01/04/25 Security Researcher Relationship Specialty Start Date End Date Babita Morataya APRN.SURVEY RESEARCH MANAGER [address] [place] [address] PCP - General Family Medicine 12/01/24 Sara Avalos MD [address] [place] [address] Physician Radiation Oncology 12/09/24 Lidia Hirsch DO [address] [place] [address] General Surgery 01/04/25 Security Researcher Relationship Specialty Start Date End Date Babita Morataya APRN.SURVEY RESEARCH MANAGER [address] [place] [address] PCP - General Family Medicine 12/01/24 Sara Avalos MD [address] [place] [address] Physician Radiation Oncology 12/09/24 Lidia Hirsch DO [address] [place] [address] General Surgery 01/04/25 Orville Martinez DO [address] [place] [address] Hematology/Oncology 01/14/25 Jennifer Burk RN Specialty Curriculum Developer Oncology 01/14/25 Security Researcher Relationship Specialty Start Date End Date Babita Morataya, KOFFI.SURVEY RESEARCH MANAGER [address] [place] [address] PCP - General Family Medicine 12/01/24 Sara Avalos MD [address] [place] [address] Physician Radiation Oncology 12/09/24 Lidia Hirsch DO [address] [place] [address] General Surgery 01/04/25 Orville Martinez DO [address] [place] [address] Hematology/Oncology 01/14/25 Jennifer Burk RN Specialty Curriculum Developer Oncology 01/14/25 Security Researcher Relationship Specialty Start Date End Date Babita Morataya, KOFFI.SURVEY RESEARCH MANAGER [address] [place] [address] PCP - General Family Medicine 12/01/24 Sara Avalos MD [address] [place] [address] Physician Radiation Oncology 12/09/24 Lidia Hirsch DO [address] [place] [address] General Surgery 01/04/25 Orville Martinez DO [address] [place] [address] Hematology/Oncology 01/14/25 Jennifer Burk RN Specialty Curriculum Developer Oncology 01/14/25 Security Researcher Relationship Specialty Start Date End Date Babita Morataya, INDUSTRIAL TRAINING SPECIALIST.SURVEY RESEARCH MANAGER [address] [place] [address] PCP - General Family Medicine 12/01/24 Sara Avalos MD [address] [place] [address] Physician Radiation Oncology 12/09/24 Lidia Hirsch DO [address] [place] [address] General Surgery 01/04/25 Orville Martinez DO [address] [place] [address] Hematology/Oncology 01/14/25 Jennifer Burk RN Specialty Curriculum Developer Oncology 01/14/25 Security Researcher Relationship Specialty Start Date End Date Babita Morataya, INDUSTRIAL TRAINING SPECIALIST.SURVEY RESEARCH MANAGER [address] [place] [address] PCP - General Family Medicine 12/01/24 Sara Avalos MD [address] [place] [address] Physician Radiation Oncology 12/09/24 Lidia Hirsch DO [address] [place] [address] General Surgery 01/04/25 Orville Martinez DO [address] [place] [address] Hematology/Oncology 01/14/25 Jennifer Burk RN Specialty Curriculum Developer Oncology 01/14/25 Security Researcher Relationship Specialty Start Date End Date Babita Morataya, KOFFI.SURVEY RESEARCH MANAGER [address] [place] [address] PCP - General Family Medicine 12/01/24 Sara Avalos MD [address] [place] [address] Physician Radiation Oncology 12/09/24 Lidia Hirsch DO [address] [place] [address] General Surgery 01/04/25 Orville Martinez DO [address] [place] [address] Hematology/Oncology 01/14/25 Jennifer Burk RN Specialty Curriculum Developer Oncology 01/14/25 Security Researcher Relationship Specialty Start Date End Date Babita Morataya APRN.SURVEY RESEARCH MANAGER [address] [place] [address] PCP - General Family Medicine 12/01/24 Sara Avalos MD [address] [place] [address] Physician Radiation Oncology 12/09/24 Lidia Hirsch DO [address] [place] [address] General Surgery 01/04/25 Orville Martinez DO [address] [address] Hematology/Oncology 01/14/25 Jennifer Burk RN Specialty Curriculum Developer Oncology 01/14/25 Security Researcher Relationship Specialty Start Date End Date Babita Morataya, INDUSTRIAL TRAINING SPECIALIST.SURVEY RESEARCH MANAGER [address] [place] [address] PCP - General Family Medicine 12/01/24 Sara Avalos MD [address] [address] Physician Radiation Oncology 12/09/24 Lidia Hirsch DO [address] [place] [address] General Surgery 01/04/25 Orville Martinez DO [address] [place] [address] Hematology/Oncology 01/14/25 Jennifer Burk RN Specialty Curriculum Developer Oncology 01/14/25 Security Researcher Relationship Specialty Start Date End Date Babita Morataya, INDUSTRIAL TRAINING SPECIALIST.SURVEY RESEARCH MANAGER [address] [place] [address] PCP - General Family Medicine 12/01/24 Sara Avalos MD [address] [place] [address] Physician Radiation Oncology 12/09/24 Lidia Hirsch DO [address] [place] [address] General Surgery 01/04/25 Orville Martinez DO [address] [place] [address] Hematology/Oncology 01/14/25 Jennifer Burk RN Specialty Curriculum Developer Oncology 01/14/25 Security Researcher Relationship Specialty Start Date End Date Babita Morataya, INDUSTRIAL TRAINING SPECIALIST.SURVEY RESEARCH MANAGER [address] [place] [address] PCP - General Family Medicine 12/01/24 Sara Avalos MD [address] [place] [address] Physician Radiation Oncology 12/09/24 Lidia Hirsch DO [address] [place] [address] General Surgery 01/04/25 Orville Martinez DO [address] [place] [address] Hematology/Oncology 01/14/25 Doup, Jennifer, RN Specialty Curriculum Developer Oncology 01/14/25 Security Researcher Relationship Specialty Start Date End Date Babita Morataya, INDUSTRIAL TRAINING SPECIALIST.SURVEY RESEARCH MANAGER [address] [place] [address] PCP - General Family Medicine 12/01/24 Sara Avalos MD [address] [address] Physician Radiation Oncology 12/09/24 Lidia Hirsch DO [address] [place] [address] General Surgery 01/04/25 Orville Martinez DO [address] [place] [address] Hematology/Oncology 01/14/25 Jennifer Burk RN Specialty Curriculum Developer Oncology 01/14/25 Deborah Villavicencio LISW [address] [place] [address] Repair Cameraman Hematology/Oncology 02/04/25 Security Researcher Relationship Specialty Start Date End Date Babita Morataya, INDUSTRIAL TRAINING SPECIALIST.SURVEY RESEARCH MANAGER [address] [place] [address] PCP - General Family Medicine 12/01/24 Sara Avalos MD [address] [place] [address] Physician Radiation Oncology 12/09/24 Lidia Hirsch DO [address] [place] [address] General Surgery 01/04/25 Orville Martinez DO [address] [place] [address] Hematology/Oncology 01/14/25 Jennifer Burk RN Specialty Curriculum Developer Oncology 01/14/25 Deborah Villavicencio LISW [address] [place] [address] [employer] Hematology/Oncology 02/04/25 Security Researcher Relationship Specialty Start Date End Date Babita Morataya, INDUSTRIAL TRAINING SPECIALIST.SURVEY RESEARCH MANAGER [address] [place] [address] PCP - General Family Medicine 12/01/24 Sara Avalos MD [address] [place] [place] [address] Physician Radiation Oncology 12/09/24 Lidia Hirsch DO [address] [place] [address] General Surgery 01/04/25 Orville Martinez DO [address] [place] [address] Hematology/Oncology 01/14/25 Jennifer Burk RN Specialty Curriculum Developer Oncology 01/14/25 Deborah Villavicencio LISW [address] [place] [address] [employer] Hematology/Oncology 02/04/25 Security Researcher Relationship Specialty Start Date End Date Babita Morataya, INDUSTRIAL TRAINING SPECIALIST.SURVEY RESEARCH MANAGER [address] [place] [address] PCP - General Family Medicine 12/01/24 Sara Avalos MD [address] [place] [address] Physician Radiation Oncology 12/09/24 Lidia Hirsch DO [address] [place] [address] General Surgery 01/04/25 Orville Martinez DO [address] [place] [address] Hematology/Oncology 01/14/25 Jennifer Burk RN Specialty Curriculum Developer Oncology 01/14/25 Deborah Villavicencio LISW [address] [place] [address] [employer] Hematology/Oncology 02/04/25 Security Researcher Relationship Specialty Start Date End Date Babita Morataya APRN.SURVEY RESEARCH MANAGER [address] [place] [address] PCP - General Family Medicine 12/01/24 Sara Avalos MD [address] [place] [address] Physician Radiation Oncology 12/09/24 Lidia Hirsch DO [address] [place] [address] General Surgery 01/04/25 Orville Martinez DO [address] [place] [address] Hematology/Oncology 01/14/25 Jennifer Burk RN Specialty Curriculum Developer Oncology 01/14/25 Deborah Villavicencio LISW [address] [place] [address] [employer] Hematology/Oncology 02/04/25 Security Researcher Relationship Specialty Start Date End Date Babita Morataya, INDUSTRIAL TRAINING SPECIALIST.SURVEY RESEARCH MANAGER [address] [place] [address] PCP - General Family Medicine 12/01/24 Sara Avalos MD [address] [place] [address] Physician Radiation Oncology 12/09/24 Lidia Hirsch DO [address] [place] [address] General Surgery 01/04/25 Orville Martinez DO [address] [place] [address] Hematology/Oncology 01/14/25 Jennifer Burk RN Specialty Curriculum Developer Oncology 01/14/25 Deborah Villavicencio LISW [address] [place] [address] [employer] Hematology/Oncology 02/04/25 Security Researcher Relationship Specialty Start Date End Date Babita Morataya, KOFFI.SURVEY RESEARCH MANAGER [address] [place] [address] PCP - General Family Medicine 12/01/24 Sara Avalos MD [address] [place] [address] Physician Radiation Oncology 12/09/24 Lidia Hirsch DO [address] [place] [address] General Surgery 01/04/25 Orville Martinez DO [address] [place] [address] Hematology/Oncology 01/14/25 Jennifer Burk RN Specialty Curriculum Developer Oncology 01/14/25 Deborah Villavicencio LISW [address] [place] [address] [employer] Hematology/Oncology 02/04/25 Security Researcher Relationship Specialty Start Date End Date Babita Morataya, INDUSTRIAL TRAINING SPECIALIST.SURVEY RESEARCH MANAGER [address] [place] [address] PCP - General Family Medicine 12/01/24 Sara Avalos MD [address] [facility] [place] [address] Physician Radiation Oncology 12/09/24 Lidia Hirsch DO [address] [place] [address] General Surgery 01/04/25 Orville Martinez DO [address] [facility] [address] Hematology/Oncology 01/14/25 Jennifer Burk, EVERT Specialty Curriculum Developer Oncology 01/14/25 Deborah Villavicencio, AVA [address] [place] [address] [employer] Hematology/Oncology 02/04/25 Security Researcher Relationship Specialty Start Date End Date Babita Morataya, INDUSTRIAL TRAINING SPECIALIST.SURVEY RESEARCH MANAGER [address] [place] [address] PCP - General Family Medicine 12/01/24 Sara Avalos MD [address] [place] [address] Physician Radiation Oncology 12/09/24 Lidia Hirsch DO [address] [place] [address] General Surgery 01/04/25 Orville Martinez DO [address] [facility] [place] [address] Hematology/Oncology 01/14/25 Jennifer Burk RN Specialty Curriculum Developer Oncology 01/14/25 Deborah Villavicencio LISW [address] [place] [address] Repair [employer] Hematology/Oncology 02/04/25 Security Researcher Relationship Specialty Start Date End Date Babita Morataya APRN.CNP [address] [place] [address] PCP - General Family Medicine 12/01/24 Sara Avalos MD [address] [place] [address] Physician Radiation Oncology 12/09/24 Lidia Hirsch DO [address] [place] [address] General Surgery 01/04/25 Orville Martinez DO [address] [place] [address] Hematology/Oncology 01/14/25 Jennifer Burk RN Specialty Curriculum Developer Oncology 01/14/25 Deborah Villavicencio LISW [address] [place] [address] Repair [employer] Hematology/Oncology 02/04/25 Team Status: Active Member Role/Relationship Status Dates Babita Morataya MANUFACTURING ENGINEERING TECHNOLOGIST, MANUFACTURING ENGINEERING TECHNOLOGIST-C Primary Care Provider Active Team Status: Inactive Member Role/Relationship Status Dates Babita Morataya NP, MANUFACTURING ENGINEERING TECHNOLOGIST-C Primary Care Provider Active Start: February 27, 2025 End: February 27, 2025 Dr. Cuba Castro MD Emergency Provider Active Sta rt: February 27, 2025 End: February 27, 2025 INFORMATION SOURCE (unrecogn ized section and content) DATE CREATED AUTHOR 11/06/2023 [facility] ([place]) DATE CREATED AUTHOR AUTHOR'S ORGANIZ ATION 07/12/2024 [facility] DATE CREATED AUTHOR AUTHOR'S ORGANIZ ATION 11/28/2024 [facility] DATE CREATED AUTHOR AUTHOR'S ORGANIZ ATION 01/10/2025 [facility] DATE CREATED AUTHOR AUTHOR'S ORGANIZ ATION 02/26/2025 [facility] Source Comments (unrecognize d section and content) In the event this informatio n is protected by the Federal Confidentiality of Alcohol and Drug Abuse Patient Records regulations: The Federal rules restrict any use of the information to criminally investigate or prosecute any alcohol or drug abuse patient.[facility] the event this information is protected by the Federal Confidentiality of Alcohol and Drug Abuse Patient Records regulations: The Federal rules restrict any use of the information to criminally investigate or prosecute any alcohol or drug abuse patient.[facility] HospitalIn the event this information is protected by the Federal Confidentiality of Alcohol and Drug Abuse Patient Records regulations: The Federal rules restrict any use of the information to criminally investigate or prosecute any alcohol or drug abuse patient.[facility] HospitalIn the event this information is protected by the Federal Confidentiality of Alcohol and Drug Abuse Patient Records regulations: The Federal rules restrict any use of the information to criminally investigate or prosecute any alcohol or drug abuse patient.[facility] HospitalIn the event this information is protected by the Federal Confidentiality of Alcohol and Drug Abuse Patient Records regulations: The Federal rules restrict any use of the information to criminally investigate or prosecute any alcohol or drug abuse patient.[facility] HospitalIn the event this information is protected by the Federal Confidentiality of Alcohol and Drug Abuse Patient Records regulations: The Federal rules restrict any use of the information to criminally investigate or prosecute any alcohol or drug abuse patient.[facility] HospitalIn the event this information is protected by the Federal Confidentiality of Alcohol and Drug Abuse Patient Records regulations: The Federal rules restrict any use of the information to criminally investigate or prosecute any alcohol or drug abuse patient.[facility] HospitalIn the event this information is protected by the Federal Confidentiality of Alcohol and Drug Abuse Patient Records regulations: The Federal rules restrict any use of the information to criminally investigate or prosecute any alcohol or drug abuse patient.[facility] HospitalIn the event this information is protected by the Federal Confidentiality of Alcohol and Drug Abuse Patient Records regulations: The Federal rules restrict any use of the information to criminally investigate or prosecute any alcohol or drug abuse patient.[facility] HospitalIn the event this information is protected by the Federal Confidentiality of Alcohol and Drug Abuse Patient Records regulations: The Federal rules restrict any use of the information to criminally investigate or prosecute any alcohol or drug abuse patient.[facility] HospitalIn the event this information is protected by the Federal Confidentiality of Alcohol and Drug Abuse Patient Records regulations: The Federal rules restrict any use of the information to criminally investigate or prosecute any alcohol or drug abuse patient.[facility] HospitalIn the event this information is protected by the Federal Confidentiality of Alcohol and Drug Abuse Patient Records regulations: The Federal rules restrict any use of the information to criminally investigate or prosecute any alcohol or drug abuse patient.[facility] HospitalIn the event this information is protected by the Federal Confidentiality of Alcohol and Drug Abuse Patient Records regulations: The Federal rules restrict any use of the information to criminally investigate or prosecute any alcohol or drug abuse patient.[facility] HospitalIn the event this information is protected by the Federal Confidentiality of Alcohol and Drug Abuse Patient Records regulations: The Federal rules restrict any use of the information to criminally investigate or prosecute any alcohol or drug abuse patient.[facility] HospitalIn the event this information is protected by the Federal Confidentiality of Alcohol and Drug Abuse Patient Records regulations: The Federal rules restrict any use of the information to criminally investigate or prosecute any alcohol or drug abuse patient.[facility] HospitalIn the event this information is protected by the Federal Confidentiality of Alcohol and Drug Abuse Patient Records regulations: The Federal rules restrict any use of the information to criminally investigate or prosecute any alcohol or drug abuse patient.[facility] HospitalIn the event this information is protected by the Federal Confidentiality of Alcohol and Drug Abuse Patient Records regulations: The Federal rules restrict any use of the information to criminally investigate or prosecute any alcohol or drug abuse patient.[facility] HospitalIn the event this information is protected by the Federal Confidentiality of Alcohol and Drug Abuse Patient Records regulations: The Federal rules restrict any use of the information to criminally investigate or prosecute any alcohol or drug abuse patient.[facility] HospitalIn the event this information is protected by the Federal Confidentiality of Alcohol and Drug Abuse Patient Records regulations: The Federal rules restrict any use of the information to criminally investigate or prosecute any alcohol or drug abuse patient.[facility] HospitalIn the event this information is protected by the Federal Confidentiality of Alcohol and Drug Abuse Patient Records regulations: The Federal rules restrict any use of the information to criminally investigate or prosecute any alcohol or drug abuse patient.[facility] HospitalIn the event this information is protected by the Federal Confidentiality of Alcohol and Drug Abuse Patient Records regulations: The Federal rules restrict any use of the information to criminally investigate or prosecute any alcohol or drug abuse patient.[facility] HospitalIn the event this information is protected by the Federal Confidentiality of Alcohol and Drug Abuse Patient Records regulations: The Federal rules restrict any use of the information to criminally investigate or prosecute any alcohol or drug abuse patient.[facility] HospitalIn the event this information is protected by the Federal Confidentiality of Alcohol and Drug Abuse Patient Records regulations: The Federal rules restrict any use of the information to criminally investigate or prosecute any alcohol or drug abuse patient.[facility] HospitalIn the event this information is protected by the Federal Confidentiality of Alcohol and Drug Abuse Patient Records regulations: The Federal rules restrict any use of the information to criminally investigate or prosecute any alcohol or drug abuse patient.[facility] HospitalIn the event this information is protected by the Federal Confidentiality of Alcohol and Drug Abuse Patient Records regulations: The Federal rules restrict any use of the information to criminally investigate or prosecute any alcohol or drug abuse patient.[facility] HospitalIn the event this information is protected by the Federal Confidentiality of Alcohol and Drug Abuse Patient Records regulations: The Federal rules restrict any use of the information to criminally investigate or prosecute any alcohol or drug abuse patient.[facility] HospitalIn the event this information is protected by the Federal Confidentiality of Alcohol and Drug Abuse Patient Records regulations: The Federal rules restrict any use of the information to criminally investigate or prosecute any alcohol or drug abuse patient.[facility] HospitalIn the event this information is protected by the Federal Confidentiality of Alcohol and Drug Abuse Patient Records regulations: The Federal rules restrict any use of the information to criminally investigate or prosecute any alcohol or drug abuse patient.[facility] HospitalIn the event this information is protected by the Federal Confidentiality of Alcohol and Drug Abuse Patient Records regulations: The Federal rules restrict any use of the information to criminally investigate or prosecute any alcohol or drug abuse patient.[facility] HospitalIn the event this information is protected by the Federal Confidentiality of Alcohol and Drug Abuse Patient Records regulations: The Federal rules restrict any use of the information to criminally investigate or prosecute any alcohol or drug abuse patient.[facility] HospitalIn the event this information is protected by the Federal Confidentiality of Alcohol and Drug Abuse Patient Records regulations: The Federal rules restrict any use of the information to criminally investigate or prosecute any alcohol or drug abuse patient.[facility] HospitalIn the event this information is protected by the Federal Confidentiality of Alcohol and Drug Abuse Patient Records regulations: The Federal rules restrict any use of the information to criminally investigate or prosecute any alcohol or drug abuse patient.[facility] HospitalIn the event this information is protected by the Federal Confidentiality of Alcohol and Drug Abuse Patient Records regulations: The Federal rules restrict any use of the information to criminally investigate or prosecute any alcohol or drug abuse patient.[facility] HospitalIn the event this information is protected by the Federal Confidentiality of Alcohol and Drug Abuse Patient Records regulations: The Federal rules restrict any use of the information to criminally investigate or prosecute any alcohol or drug abuse patient.[facility] HospitalIn the event this information is protected by the Federal Confidentiality of Alcohol and Drug Abuse Patient Records regulations: The Federal rules restrict any use of the information to criminally investigate or prosecute any alcohol or drug abuse patient.[facility] HospitalIn the event this information is protected by the Federal Confidentiality of Alcohol and Drug Abuse Patient Records regulations: The Federal rules restrict any use of the information to criminally investigate or prosecute any alcohol or drug abuse patient.[facility] HospitalIn the event this information is protected by the Federal Confidentiality of Alcohol and Drug Abuse Patient Records regulations: The Federal rules restrict any use of the information to criminally investigate or prosecute any alcohol or drug abuse patient.[facility] HospitalIn the event this information is protected by the Federal Confidentiality of Alcohol and Drug Abuse Patient Records regulations: The Federal rules restrict any use of the information to criminally investigate or prosecute any alcohol or drug abuse patient.[facility] HospitalIn the event this information is protected by the Federal Confidentiality of Alcohol and Drug Abuse Patient Records regulations: The Federal rules restrict any use of the information to criminally investigate or prosecute any alcohol or drug abuse patient.[facility] HospitalIn the event this information is protected by the Federal Confidentiality of Alcohol and Drug Abuse Patient Records regulations: The Federal rules restrict any use of the information to criminally investigate or prosecute any alcohol or drug abuse patient.[facility] HospitalIn the event this information is protected by the Federal Confidentiality of Alcohol and Drug Abuse Patient Records regulations: The Federal rules restrict any use of the information to criminally investigate or prosecute any alcohol or drug abuse patient.[facility] HospitalIn the event this information is protected by the Federal Confidentiality of Alcohol and Drug Abuse Patient Records regulations: The Federal rules restrict any use of the information to criminally investigate or prosecute any alcohol or drug abuse patient.[facility] HospitalIn the event this information is protected by the Federal Confidentiality of Alcohol and Drug Abuse Patient Records regulations: The Federal rules restrict any use of the information to criminally investigate or prosecute any alcohol or drug abuse patient.[facility] HospitalIn the event this information is protected by the Federal Confidentiality of Alcohol and Drug Abuse Patient Records regulations: The Federal rules restrict any use of the information to criminally investigate or prosecute any alcohol or drug abuse patient.[facility] HospitalIn the event this information is protected by the Federal Confidentiality of Alcohol and Drug Abuse Patient Records regulations: The Federal rules restrict any use of the information to criminally investigate or prosecute any alcohol or drug abuse patient.[facility] HospitalIn the event this information is protected by the Federal Confidentiality of Alcohol and Drug Abuse Patient Records regulations: The Federal rules restrict any use of the information to criminally investigate or prosecute any alcohol or drug abuse patient.[facility] HospitalIn the event this information is protected by the Federal Confidentiality of Alcohol and Drug Abuse Patient Records regulations: The Federal rules restrict any use of the information to criminally investigate or prosecute any alcohol or drug abuse patient.[facility] HospitalIn the event this information is protected by the Federal Confidentiality of Alcohol and Drug Abuse Patient Records regulations: The Federal rules restrict any use of the information to criminally investigate or prosecute any alcohol or drug abuse patient.[facility] HospitalIn the event this information is protected by the Federal Confidentiality of Alcohol and Drug Abuse Patient Records regulations: The Federal rules restrict any use of the information to criminally investigate or prosecute any alcohol or drug abuse patient.[facility] Reason for Visit (unrecogniz ed section and content) Reason Comments New Patient Specialty Diagnoses / Procedures Referred By Contac t Referred To Contact Oncology Diagnoses Breast cancer, stage 2, left (HCC) Malignant neoplasm of upper-inner quadrant of left breast in female, estrogen receptor negative (HCC) Procedures CONSULT TO ONCOLOGY OFFICE/OUTPATIENT NEW HIGH MDM 60 MINUTES Lidia Hirsch, DO [address] [place] [address] Phone: tel: fax: Orville Martinez, DO [address] [facility] [address] Phone: tel: fax: Referral ID Status Reason Start Date Expiration Date V isits Requested Visits Authorized [id number] Closed PCP Requested Referral 12/08/2024 12/08/2025 1 1 Reason Comments Post-Op Visit 1wk breast biopsy re sults SKIP 12/01 12/01 [facility] LEFT Reason Comments Consult Left breast Reason Comments Radiology CT Specialty Diagnoses / Procedures Referred By Gregory t Referred To Contact CT IMAGING Diagnoses Malignant neoplasm of upper-inner quadrant of left breast in female, estrogen receptor negative (HCC) Procedures CT ABD/PEL W IVCON CT ABD & PELVIS W/CONTRAST Lidia Hirsch, DO [address] [place] [address] Phone: tel: fax: [place] [address] Referral ID Status Reason Start Date Expiration Date V isits Requested Visits Authorized [id number] Closed Auto-Generate d Referral 12/08/2024 01/07/2026 1 1 Reason Comments Consult Reason Comments Curriculum Developer - Other Reason Comments Care Coordination Introduction Reason Comments Follow Up Reason Comments Curriculum Developer - Other Chemo Education appointment Reason Comments Appointment Reason Comments Patient Update Reason Comments MRI Scheduling Appointment Reason Comments New Patient Left breast cancer Reason Comments Curriculum Developer - Other Antiemetic Reason Comments cooling cap Reason Comments Radiology US Specialty Diagnoses / Procedures Referred By Gregory t Referred To Contact [facility]AGING Diagnoses Increased endometrial stripe thickness Procedures US FEMALE PELVIS TRANSVAG US TRANSVAGINAL Orville Martinez, DO [address] [place] [address] Phone: tel: fax: [place] [id number] Referral ID Status Reason Start Date Expiration Date V isits Requested Visits Authorized [id number] Closed Auto-Generate d Referral 01/04/2025 02/03/2026 1 1 Reason Comments First Time Treatment Education Keynote 5 22 Reason Comments Results Reason Comments Chemotherapy Treatment Specialty Diagnoses / Procedures Referred By Contac t Referred To Contact Diagnoses Malignant neoplasm of upper-inner quadrant of left breast in female, estrogen receptor negative (HCC) Orville Martinez, DO [address] [place] [address] Phone: tel: fax: Orville Martinez, DO [address] [place] [address] Phone: tel: fax: Referral ID Status Reason Start Date Expiration Date V isits Requested Visits Authorized [id number] Authorized 01/19/2025 04/19/2025 1 1 Reason Comments Care Coordination Pain at port site Reason Onset Date Comments Refill Request 01/25/2025 Reason Comments Curriculum Developer - Other C1D1 Post Treat ment Call (Carbo/taxol/keytruda) Reason Comments Patient Question Reason Comments Reason Comments Blood Draw (CVAD) Reason Comments Established Patient Reason Comments Consult For surgery Specialty Diagnoses / Procedures Referred By Contac t Referred To Contact Gynecology Diagnoses Endometrial polyp Procedures CONSULT TO GYNECOLOGY OFFICE/OUTPATIENT NEW HIGH MDM 60 MINUTES Orville Martinez, DO [address] [place] [address] Phone: tel: fax: Referral ID Status Reason Start Date Expiration Date V isits Requested Visits Authorized [id number] Closed PCP Requested Referral Auto-Generated Referral 01/17/2025 01/17/2026 1 1 Goals (unrecognized section and content) Goals may be documented in a n alternate section FOR RECORDS PERTAINING TO PATIENTS WHO ARE OR HAVE BEEN ENROLLED IN A CHEMICAL DEPENDENCY/SUBSTANCEABUSE PROGRAM, SOME INFORMATION MAY BE OMITTED. This clinical summary was aggregated from multiple sources. Caution should be exercised in using it in the provision of clinical care. This summary normalizes information from multiple sources, and as a consequence, information in this document may materially change the coding, format and clinical context of patient data. In addition, data may be omitted in some cases. CLINICAL DECISIONS SHOULD BE BASED ON THE PRIMARY CLINICAL RECORDS. [facility]. provides no warranty or guarantee of the accuracy or completeness of information in this document.
== END 2025-02-27 11:03 | disposition home or self-care (01) ==
PROVIDERS: Emergency Provider Emergency Medicine; PCP Nurse Practitioner Family; Visit Provider Emergency Medicine
DX: K56.41 Fecal impaction (principal); I10 Essential (primary) hypertension; R55 Syncope and collapse; E78.00 Pure hypercholesterolemia, unspecified; Z85.3 Personal history of malignant neoplasm of breast; Z92.21 Personal history of antineoplastic chemotherapy; K21.9 Gastro-esophageal reflux disease without esophagitis; Z79.899 Other long term (current) drug therapy
CPT/HCPCS: 99282

== ENCOUNTER 2025-03-18 10:12 | Day surgery (SDC) | payer MEDICARE, OTHER, SELFPAY ==
--- NOTE | 2025-03-09 13:57 | PAT.ANE_ITS ---
Pre-Assessment Diagnosis/Proposed Procedure Planned Operative Procedure(s): Hysteroscopy,D&C, polypectomy, Symphion Anesthesia History Anesthesia History - show design supervisor: Anesthesia History - show design supervisor Hx Hospitalization No 03/09/25 11:40 Any Problems With Anesthesia Yes: N&V 03/09/25 11:40 Cholinesterase deficiency No 03/09/25 11:40 You/Your Family Experience No 03/09/25 11:40 fever (hyperthermia) with Relationship Recent Exposure to Contagious Disease Does patient have nerve No 03/09/25 11:40 stimulator Patient instructed to have device shut off --Does patient have Pacemaker or ICD? When Was Last Pacemaker Check QUESTION #4 FULL TEXT: You/Your Family Experience fever (hyperthermia) with Anesthesia Last Oral Intake Last Oral intake: Last Oral Intake NPO since Meds taken in AM with sips of water? Meds patient instructed to take am of surgery PONV PONV - show design supervisor: PONV - show design supervisor Female Yes 03/09/25 11:40 HX of Motion Sickness No 03/09/25 11:40 HX of N/V After Surgery No 03/09/25 11:40 Non-Smoker Yes 03/09/25 11:40 Duration of Surgery greater Yes 03/09/25 11:40 than 60 minutes Number of Risk Factors 3 03/09/25 11:40 PONV Score Moderate Risk 03/09/25 11:40 Height & Weight Height & Weight: Anesthesia: Height & Weight Height 5 ft 5 in 02/27/25 10:18 Respiratory Assessment Respiratory Assessment - show design supervisor: Respiratory Tract Infection Hx - show design supervisor Hx Respiratory Tract Infection No 03/09/25 11:40 STOP Sleep Apnea STOP Sleep Apnea - show design supervisor: STOP Sleep Apnea - show design supervisor Hx Hypertension Yes: NO MEDS PRESENTLY 03/09/25 11:40 Hx Sleep Apnea No 03/09/25 11:40 CPAP BIPAP Do you snore loudly (louder No 03/09/25 11:40 than talking or can be heard Do you often feel tired/ No 03/09/25 11:40 fatigued/ sleepy during daytime? Has anyone observed you stop No 03/09/25 11:40 breathing during sleep? STOP Results Negative 03/09/25 11:40 QUESTION #5 FULL TEXT : Do you snore loudly (louder than talking or can be heard through closed doors)? Tobacco Use History Tobacco Use History - show design supervisor: Tobacco Use History - show design supervisor Tobacco Use Smoking Status Never smoker 03/09/25 11:40 Hx Tobacco Use No 03/09/25 11:40 Years Smoking Packs Smoked per Day Smoking Cessation Date was within the last 15 years Hx Smoking Cessation Date Hx Smoking Cessation Counseling Hematologic Medial History Hematologic Hx - show design supervisor: Hematologic Medical Hx - plexiglas former Hx of Blood Transfusion No 03/09/25 11:40 Hx of Transfusion in last 3 No 03/09/25 11:40 Months Date of Last Transfusion (if within last 3 months) Ever experience any problems No 03/09/25 11:40 with transfusion(s)? Specify any problems Hx of Preganancy in last 3 No 03/09/25 11:40 Months Nurse Filling Out Transfusion VCHRISTIN 03/09/25 11:40 & Questions: Date: 03/09/25 03/09/25 11:40 Time: 11:41 03/09/25 11:40 Patient unable to answer at this time (ie. confused, unrespo /Reproduction History /Reproductive History - show design supervisor: /Reproductive Hx- show design supervisor Hx Now No 03/09/25 11:40 Gestational Age (in weeks): EDC: Hx Hx Para Hx Section SAB No 03/09/25 11:40 PFSH Medical History (Updated 03/09/25 @ 11:47 by Felicity Tim) History of stress test Wears glasses Post-menopausal Cancer Open wound History of steroid therapy Gastric reflux Non-smoker Hoarseness History of echocardiogram Cardiology follow-up encounter Breast cancer Hypertension Cervical paraspinal muscle spasm GERD (gastroesophageal reflux disease) Retinal detachment High cholesterol Hx of cataract UTI (urinary tract infection) History of back problems Environmental allergies Seasonal allergies Hemorrhoids Home Medications ?Medication ?Instructions ?Recorded ?Last Taken ?Type diphenhydramine HCl 25 mg capsule 50 mg PO Q8H PRN all ergy symptoms 02/27/25 Unknown History (Benadryl) fluorometholone 0.1 % eye 1 drp LEFT EYE DAILY PRN PRN 02/27/25 Unknown History drops,suspension gabapentin 100 mg capsule 200 mg PO QHS 02/27/25 Unkno wn History pembrolizumab 50 mg intravenous 200 mg IV 02/27/25 Unk nown History solution promethazine 25 mg tablet 25 mg PO TID PRN nausea and 02/27/25 Unknown History vomiting methylprednisolone 4 mg tablets in 4 mg PO DAILY 03/09 Unknown History a dose pack Allergy/AdvReac Type Severity Reaction Status Date / Time [id number] Reductase AdvReac Pain in Verified 03/09/25 11:26 Inhibitor joints Family History Uncle Alcoholism Aunt Alcoholism Breast cancer Cancer ovarian Mother Liver disease Brother High cholesterol Surgical History (Updated 03/09/25 @ 11:39 by Felicity Tim) Hx of dilation and curettage Hx of eye surgery Social History household members: spouse housing: house Smoking Status: Never smoker alcohol intake: never substance use type: does not use what type of physical activity do you participate in: none Audit: Pertinent Findings Pertinent Findings Stress test pertinent findings: 05/28/2024 stress test terminated due to CP w mild worsening ST non-specific changes. 06/25/2024 Coronary CTA shows no coronary disease. Echo (EF%) pertinent findings: 05/27/2024:LV normal EF 5-60%. Normal wall motion. Mildly thickened Aortic valve. Mild MR Consult pertinent findings: Cardiology office note 07/20/2024: Atypical CP no longer present. Suggest risk factor modification with diet and activity Recommendation Anesthesia Recommendation Anesthesia recommendation: OPTIMIZED for anesthesia
[2025-03-18] VITALS (7 sets, daily range): BP systolic 95–129; BP diastolic 52–62; PULSE 82–86; RESP 16–20; TEMP 36.1–36.4; O2SAT 96–100; BMI 27.8
[2025-03-18] MEDS: Lactated Ringers 1,000 ML 15 ML IV (10:52)
--- NOTE | 2025-03-18 11:40 | EMB_PTH ---
PATIENT: LIZ LADD [place] [facility] [id number] AGE/SX: 69/F ROOM: RE03/18/[address]: Dr. Anne Lennon DO : 1955 BED: DIS: 03/18/2025 SPEC #: [id number] RECD: 03/18/25 13:41 STATUS: RAFA RECierra #: [id number] ROSELINE: 03/18/25 11:[address]: Anne Lennon DEPT: SURGICAL PATHOLOGY RECD BY: Parag Saul ENTERED: 03/18/25 15:45 SP TYPE: ENDOM BX/C ADDISON DR: Babita Morataya, YEISON Tissues: A - Endometrium, NOS Procedures: Surgery Specimen Level IV HEADER OPERATION: Hysteroscopy, D&C PRE-OP DIAGNOSIS: Endometrial polyp TISSUE SUBMITTED: A- Endometrial curettings MICROSCOPIC DIAGNOSIS A. Endometrium, curettage: * Scant superficial endometrium and endocervical mucosa - see note. Note: A limited amount of tissue is present. Clinical correlation is necessary to assess the adequacy of the sampling. MICROSCOPIC DESCRIPTION Slides are reviewed. GROSS DESCRIPTION A. Received in formalin labeled with the patient's name and date of . Designated as endometrial curettings is a blood tinged Telfa pad containing possible flecks of soft tissue and mucoid material. The specimen is entirely submitted in 1 cassette for cell block preparation. Specimen may not survive processing. PA 03/18/2025 CPT:80983
--- NOTE | 2025-03-18 11:40 | PCM.PRE.AN2 ---
ASA Classification* ASA Classification ASA Classification: 3 Assessment & Plan Anesthesia* Anesthesia Assessment Anesthesia Assessment: Discussed sedation and/or anesthesia options, risks, benefits, and alternatives with patient/parents/legal guardian/POA. Questions invited. The patient/parents/legal guardian/POA seems to understand and agrees to proceed with anesthesia plan. Reviewed the physical assessment, medical history, allergy history and patient home medications list prior to surgery/procedure/anesthetic and documented any changes. Performed airway and anesthesia risk assessments. Anesthesia Type Anesthesia Type: MAC History Source History Obtained from:: Patient and Chart Anesthesia Focused Assessment* Temperature: 96.9 F Pulse Rate: 85 Blood Pressure: 129/52 Respiratory Rate: 16 Pulse Ox: 100 Oxygen Delivery Method: Room Air Airway Assessment Mouth opens: >3 cm Mallampati Score: IV Teeth Condition: Caps/Crowns (Right lower molar has a crown. It is tight.) Neck Range of motion (ROM): Full ROM Labs Anesthesia Preop lab: CBC WBC 6.4 K/mm3 (4.4-11.0) 10/23/21 10:04 10/23/21 RBC 4.71 M/mm3 (4.2-5.4) 10/23/21 10:04 10/23/21 Hgb 15.7 g/dL (12.0-15.0) H 10/23/21 10:04 10/23/21 Hct 44.6 % (37-47) 10/23/21 10:04 10/23/21 Plt Count 334 K/mm3 (150-450) 10/23/21 10:04 10/23/21 CHEMISTRY Potassium 3.9 mmol/L (3.5-5.1) 10/23/21 10:04 10/23/21 Sodium 137 mmol/L (136-145) 10/23/21 10:04 10/23/21 BUN 12 mg/dL (7-18) 10/23/21 10:04 10/23/21 Creatinine 0.86 mg/dL (0.55-1.02) 10/23/21 10:04 10/23/21 Glucose 112 mg/dL (74-106) H 10/23/21 10:04 10/23/21 COAG Pre-Assessment Diagnosis/Proposed Procedure Planned Operative Procedure(s): Hysteroscopy,D&C, polypectomy, Symphion Anesthesia History Anesthesia History - emergency care attendant: Anesthesia History - emergency care attendant Hx Hospitalization No 03/09/25 11:40 Any Problems With Anesthesia Yes: N&V 03/09/25 11:40 Cholinesterase deficiency No 03/09/25 11:40 You/Your Family Experience No 03/09/25 11:40 fever (hyperthermia) with Relationship Recent Exposure to Contagious No 03/18/25 10:43 Disease Does patient have nerve No 03/09/25 11:40 stimulator Patient instructed to have device shut off --Does patient have Pacemaker No 03/18/25 10:43 or ICD? When Was Last Pacemaker Check QUESTION #4 FULL TEXT: You/Your Family Experience fever (hyperthermia) with Anesthesia Last Oral Intake Last Oral intake: Last Oral Intake NPO since 21:30 03/18/25 10:43 Meds taken in AM with sips of No 03/18/25 10:43 water? Meds patient instructed to take am of surgery PONV PONV - emergency care attendant: PONV - emergency care attendant Female Yes 03/09/25 11:40 HX of Motion Sickness No 03/09/25 11:40 HX of N/V After Surgery No 03/09/25 11:40 Non-Smoker Yes 03/09/25 11:40 Duration of Surgery greater Yes 03/09/25 11:40 than 60 minutes Number of Risk Factors 3 03/09/25 11:40 PONV Score Moderate Risk 03/09/25 11:40 Height & Weight Height & Weight: Anesthesia: Height & Weight Height 5 ft 5 in 03/18/25 10:43 Weight: 76 kg 03/18/25 10:43 Body Mass Index (BMI) 27.8 03/18/25 10:43 Respiratory Assessment Respiratory Assessment - emergency care attendant: Respiratory Tract Infection Hx - emergency care attendant Hx Respiratory Tract Infection No 03/09/25 11:40 STOP Sleep Apnea STOP Sleep Apnea - emergency care attendant: STOP Sleep Apnea - emergency care attendant Hx Hypertension Yes: NO MEDS PRESENTLY 03/09/25 11:40 Hx Sleep Apnea No 03/09/25 11:40 CPAP BIPAP Do you snore loudly (louder No 03/09/25 11:40 than talking or can be heard Do you often feel tired/ No 03/09/25 11:40 fatigued/ sleepy during daytime? Has anyone observed you stop No 03/09/25 11:40 breathing during sleep? STOP Results Negative 03/09/25 11:40 QUESTION #5 FULL TEXT : Do you snore loudly (louder than talking or can be heard through closed doors)? Tobacco Use History Tobacco Use History - emergency care attendant: Tobacco Use History - emergency care attendant Tobacco Use Smoking Status Never smoker 03/09/25 11:40 Hx Tobacco Use No 03/09/25 11:40 Years Smoking Packs Smoked per Day Smoking Cessation Date was within the last 15 years Hx Smoking Cessation Date Hx Smoking Cessation Counseling Hematologic Medial History Hematologic Hx - emergency care attendant: Hematologic Medical Hx - director of corporate communications Hx of Blood Transfusion No 03/09/25 11:40 Hx of Transfusion in last 3 No 03/09/25 11:40 Months Date of Last Transfusion (if within last 3 months) Ever experience any problems No 03/09/25 11:40 with transfusion(s)? Specify any problems Hx of Preganancy in last 3 No 03/09/25 11:40 Months Nurse Filling Out Transfusion VCHRISTIN 03/09/25 11:40 & Questions: Date: 03/09/25 03/09/25 11:40 Time: 11:41 03/09/25 11:40 Patient unable to answer at this time (ie. confused, unrespo /Reproduction History /Reproductive History - emergency care attendant: /Reproductive Hx- emergency care attendant Hx Now No 03/09/25 11:40 Gestational Age (in weeks): EDC: Hx Hx Para Hx Section SAB No 03/09/25 11:40 Active Medications Active Medications: Current Medications Generic Name Dose Route Start Last Admin Trade Name Freq PRN Reason Stop Dose Admin Lactated Ringer's 1,000 mls @ 15 mls/hr 03/18/25 10:30 03/18/25 10:52 IV 15 mls/hr .Q48H CELIA Administration PFSH Medical History History of stress test Wears glasses Post-menopausal Cancer Open wound History of steroid therapy Gastric reflux Non-smoker Hoarseness History of echocardiogram Cardiology follow-up encounter Breast cancer Hypertension Cervical paraspinal muscle spasm GERD (gastroesophageal reflux disease) Retinal detachment High cholesterol Hx of cataract UTI (urinary tract infection) History of back problems Environmental allergies Seasonal allergies Hemorrhoids Home Medications ?Medication ?Instructions ?Recorded ?Last Taken ?Type diphenhydramine HCl 25 mg capsule 50 mg PO Q8H PRN allergy symptoms 02/27/25 Unknown History (Benadryl) fluorometholone 0.1 % eye 1 drp LEFT EYE DAILY PRN PRN 02/27/25 Unknown History drops,suspension gabapentin 100 mg capsule 200 mg PO QHS 02/27/25 Unknown History pembrolizumab 50 mg intravenous 200 mg IV 02/27/25 Unknown History solution promethazine 25 mg tablet 25 mg PO TID PRN nausea and 02/27/25 Unknown History vomiting methylprednisolone 4 mg tablets in 4 mg PO DAILY 03/09/25 Unknown History a dose pack Allergy/AdvReac Type Severity Reaction Status Date / Time [id number] Reductase AdvReac Pain in Verified 03/09/25 11:26 Inhibitor joints Family History Uncle Alcoholism Aunt Alcoholism Breast cancer Cancer ovarian Mother Liver disease Brother High cholesterol Surgical History Hx of dilation and curettage Hx of eye surgery Social History household members: spouse housing: house Smoking Status: Never smoker alcohol intake: never substance use type: does not use what type of physical activity do you participate in: none Review of Systems (Anesthesia) ROS Narrative System reviewed and no additional complaints, except as documented.
[2025-03-18] MEDS: Lactated Ringers 1,000 ML 1000 ML IV (11:57)
[2025-03-18] MEDS: Midazolam 2 MG/2 ML Syringe IV (11:57)
[2025-03-18] MEDS: Lidocaine 1% (5 ml sdv) 5 ML Vial IV (12:00)
[2025-03-18] MEDS: Lidocaine 1% /Epi 1:100 (20ml) 20 ML Vial (12:05)
--- NOTE | 2025-03-18 12:18 | PCM.DC ---
Discharge Instructions DC O2, CPAP, BIPAP needs Home O2 Discharge instructions: No Dressing / Incision Discharge Activity: May Not Drive (for 24 hours after surgery) and May Not Shower (for 24 hours after surgery) May resume sexual activity in: 1-2 weeks (nothing in the vagina and no soaking in water while you are having the bleeding and for at least 1 week) Weight Bearing Status: Weight bearing as tolerated Lifting Restrictions: none Dressing / Incision Call your doctor if you observe: Fever of 101 or Higher, Using more than 1 pad per hour, Dizziness, Chest pain, Increased palpitations (irregular heartbeat), Calf discomfort and Uncontrolled pain Follow Up Care Please Follow Up With: Anne Lennon DO When: 1 week post op Test Results: Test results from this visit will be discussed in further detail at your follow-up appointment, if applicable. Discharge Plan Admission Primary Reason for Your Visit: surgery Attending Provider: Anne Lennon Primary Care Provider: Babita Morataya NP Instructions Patient Instructions: Dilation and Curettage Print Language: Kyrgyz Discharge Orders/Prescriptions Prescriptions: Continued fluorometholone 0.1 % drops,suspension 1 drp LEFT EYE DAILY PRN (Reason: PRN) gabapentin 100 mg capsule 200 mg PO QHS pembrolizumab 50 mg recon soln 200 mg IV promethazine 25 mg tablet 25 mg PO TID PRN (Reason: nausea and vomiting) diphenhydramine HCl [Benadryl] 25 mg capsule 50 mg PO Q8H PRN (Reason: allergy symptoms) methylprednisolone 4 mg tablets,dose pack 4 mg PO DAILY Patient Comments: SEE DOSE PACK Referrals / Follow Up: Babita Morataya NP, ELEVATOR REPAIRER HELPER-C [Primary Care Provider] - Disposition Disposition (needs filled in before D/C Order can be placed): Home, Self Care
--- NOTE | 2025-03-18 12:19 | OP.PCM_ITS ---
Problems Associated Problem List Diagnoses (1) Endometrial polyp: Operative Report (Standard) Operative Information Date of Procedure: 03/18/25 Pre-Operative Diagnosis: Endometrial polyp on pelvic ultrasound Post-Operative Diagnosis: No lesion noted on hysteroscopy Surgery/Procedure Performed: Hysteroscopy D&C timber grader: No Type of Anesthesia: Local and MAC RN Documented Start/Stop Times: Operation Date: 03/18/25 11:40 Case Time Into Pre-Op 03/18/25 10:24 Out of Pre-Op 03/18/25 11:52 Anesthesia Start 03/18/25 11:57 Into Room 03/18/25 11:57 Procedure Start 03/18/25 12:10 Procedure End 03/18/25 12:16 Procedure Start Time: 12:10 Procedure Stop Time: 12:16 Select all DRAINS/GRAFTS/IMPLANTS that apply: None Special Medications: None Estimated Blood Loss: < 20 mL Specimen collected: Yes Description of specimen(s) removed: Endometrial curettings Description of surgery: The patient was taken to the operating room where MAC anesthesia was induced and found to be adequate. She was prepped and draped in the dorsal lithotomy position using yellowfin stirrups. A weighted speculum was placed in the vagina to expose the cervix. The anterior lip of the cervix was grasped with a single- tooth tenaculum. 10 mL of local was infiltrated within the cervix. The cervix was serially dilated to accommodate the Symphion hysteroscope. The Symphion hysteroscope was advanced into the uterus, and the uterus was distended with normal saline as distention media. Bilateral tubal ostia were visualized. The endometrium was thin and atrophic appearing. There were no lesions noted within the uterus or within the endocervical canal. The hysteroscope was slowly removed, and there were no polyps or lesions noted. A sharp curettage was performed for scant tissue. The endometrial curettings were sent to pathology for review. Bleeding was scant. All instruments were removed from the vagina. A vaginal sweep was performed. Instrument and sponge counts were correct and the patient was taken to the recovery room in good stable condition. 300 mL f luid deficit. Surgical Findings: Normal appearing uterine cavity with thin, atrophic appearing endometrium Complications Complications: No Admit VTE Documentation VTE Present on Admission: No VTE Mechan Device Prophylaxis: SCD's
--- NOTE | 2025-03-18 12:26 | PCM.POST.ANE ---
Anesthesia: Postop Eval I Current Vital Signs Temperature: 97.5 F Pulse Rate: 86 Blood Pressure: 96/62 Respiratory Rate: 20 Pulse Ox: 97 Oxygen Delivery Method: Room Air Assessment Airway patent: Yes Spontaneous unlabored respirations: Yes Mental status: Awake and Calm nausea: No Vomiting: No Anesthesia Complication: No Fluid Hydration Crystalloid volume administer (ml): 400 Total IV fluid infused: 400 Progress Note Anesthesia document: Postop Eval 1 completed: Yes
--- NOTE | 2025-03-18 17:30 | POSTOPAN2_ITS ---
Anesthesia Postop Eval I Sum Postop Eval Completion status Anesthesia document: Postop Eval 1 completed: Yes Anesthesia Postop Eval I Summary Anesthesia Postop Eval I Summary: Anesthesia Postop Eval I: Assessment Summary Airway patent Yes 03/18/25 12:27 [email or web address] [email or web address] Spontaneous unlabored Yes 03/18/25 12:27 PONY [email or web address] respirations Mental status Awake,Calm 03/18/25 12:27 PONY [email or web address] nausea No 03/18/25 12:27 PONY [email or web address] Vomiting No 03/18/25 12:27 PONY [email or web address] Anesthesia Postop Eval I: Fluid Summary Crystalloid volume administer 400 03/18/25 12:27 PONY [email or web address] (ml) Colloids volume administered ( ml) Blood Product volume administered (ml) Total IV fluid infused 400 03/18/25 12:27 PONY [email or web address] Anesthesia Postop Eval I: Summary Notes Anesthesia Complication No 03/18/25 12:27 PONY [email or web address] Anesthesia Complication Comment: Post-operative progress note Anesthesia: Postop Eval II Evaluation Mental status: Awake and Calm Pain Level: 1 nausea: No Vomiting: No Complications Anesthesia Complication: No
--- NOTE | 2025-03-18 17:30 | PCM.POSTANE2 ---
Anesthesia Postop Eval I Sum Postop Eval Completion status Anesthesia document: Postop Eval 1 completed: Yes Anesthesia Postop Eval I Summary Anesthesia Postop Eval I Summary: Anesthesia Postop Eval I: Assessment Summary Airway patent Yes 03/18/25 12:27 [email or web address] Spontaneous unlabored Yes 03/18/25 12:27 [email or web address] [email or web address] respirations Mental status Awake,Calm 03/18/25 12:27 [email or web address] nausea No 03/18/25 12:27 [email or web address] [email or web address] Vomiting No 03/18/25 12:27 [email or web address] Anesthesia Postop Eval I: Fluid Summary Crystalloid volume administer 400 03/18/25 12:27 [email or web address] (ml) Colloids volume administered ( ml) Blood Product volume administered (ml) Total IV fluid infused 400 03/18/25 12:27 [email or web address] Anesthesia Postop Eval I: Summary Notes Anesthesia Complication No 03/18/25 12:27 [email or web address] Anesthesia Complication Comment: Post-operative progress note Anesthesia: Postop Eval II Evaluation Mental status: Awake and Calm Pain Level: 1 nausea: No Vomiting: No Complications Anesthesia Complication: No
== END 2025-03-18 13:09 | disposition home or self-care (01) ==
LOC: SDC 10:15 → AC 10:17
PROVIDERS: PCP Nurse Practitioner Family; Referring Provider Obstetrics & Gynecology; Visit Provider Obstetrics & Gynecology
PROC: 0UB98ZZ Excision of Uterus, Via Natural or Artificial Opening Endoscopic (ICD-10-PCS; CPT 58558; principal; 2025-03-18 11:25)
DX: N84.0 Polyp of corpus uteri (principal); I10 Essential (primary) hypertension; Z85.3 Personal history of malignant neoplasm of breast; D70.1 Agranulocytosis secondary to cancer chemotherapy; T45.1X5A Adverse effect of antineoplastic and immunosuppressive drugs, initial encounter
CPT/HCPCS: 58558; 00952; 86850; 86900; 86901; 88305; A4216; J2405

== ENCOUNTER 2025-03-18 21:59 | Emergency (ER) | payer MEDICARE, OTHER, SELFPAY ==
[2025-03-18 22:01] VITALS: BP 142/69; PULSE 100; RESP 18; TEMP 36.8; O2SAT 97; BMI 28.3
--- OUTSIDE RECORDS SUMMARY | 2025-03-18 22:29 | XMS RPT_ITS | CCD ---
Author Organization [facility] Care Team Providers Care Rib Builder Name Role Phone RAFIA ELECTRICIAN RESEARCH-PEANUT SHAKER, BABITA Primary Care Physician RAFIA ELECTRICIAN RESEARCH-PEANUT SHAKER, BABITA Attending Unavail able LORSON ELECTRICIAN RESEARCH-PEANUT SHAKER, BABITA Primary Care Unavail able LORSON ELECTRICIAN RESEARCH-PEANUT SHAKER, NORMAN Primary Care Unavail able LORSON ELECTRICIAN RESEARCH-PEANUT SHAKER, BABITA Attending Unavail able LORSON ELECTRICIAN RESEARCH-PEANUT SHAKER, NORMAN Primary Care Unavail able DR TIMUR MINA Attending Unavailable LORSON ELECTRICIAN RESEARCH-PEANUT SHAKER, NORMAN Primary Care Unavail able LORSON ELECTRICIAN RESEARCH-PEANUT SHAKER, BABITA Attending Unavail able LORSON ELECTRICIAN RESEARCH-PEANUT SHAKER, BABIAT Attending Unavail able LORSON ELECTRICIAN RESEARCH-PEANUT SHAKER, NORMAN Primary Care Unavail able WOO CERON, DR ISBELL Attending Unavailab le LORSON ELECTRICIAN RESEARCH-PEANUT SHAKER, NORMAN Primary Care Unavail able LORSON ELECTRICIAN RESEARCH-PEANUT SHAKER, BABITA Attending Unavail able [facility] Address: [address] [place] [address] Performed By: #### 5 7021-8 ####[facility] [id number] [place] [address] [place] Hemoglobin (Bld) [Mass/Vol] 12.7 g/dL Normal 11.5-15.5 [facility] Comment on above: Order Comment: Speci men Type: BLOOD SPECIMENOrdering Facility: [facility] Address: [address] [place] [address] Performed By: #### 5 7021-8 ####[facility] [id number] [place] [address] [place] Immature granulocytes (Bld) [#/Vol] 10*3/uL Normal <0.10 [facility] Comment on above: Order Comment: Speci men Type: BLOOD SPECIMENOrdering Facility: [facility] Address: [address] [place] [address] Performed By: #### 5 7021-8 ####[facility] FELI [id number] [place] [address] [place] Immature granulocytes/100 WBC (Bld) 0.6 % Normal [facility] Comment on above: Order Comment: Speci men Type: BLOOD SPECIMENOrdering Facility: [facility] Address: [address] [place] [address] Performed By: #### 5 7021-8 ####[facility] [id number] [place] [address] [place] Lymphocytes (Bld) [#/Vol] 1.62 10*3/uL Normal 1.00-4.00 [facility] Comment on above: Order Comment: Speci men Type: BLOOD SPECIMENOrdering Facility: [facility] Address: [address] [place] [address] Performed By: #### 5 7021-8 ####[facility] [id number] [place] [address] [place] Lymphocytes/100 WBC (Bld) 50.8 % Normal [facility] Comment on above: Order Comment: Speci men Type: BLOOD SPECIMENOrdering Facility: [facility] Address: [address] [place] [address] Performed By: #### 5 7021-8 ####[facility] [id number] [place] [address] [place] MCH (RBC) [Entitic mass] 33.2 pg Normal 26.0-34.0 [facility] Comment on above: Order Comment: Speci men Type: BLOOD SPECIMENOrdering Facility: [facility] Address: [address] [place] [address] Performed By: #### 5 7021-8 ####[facility] ERWNCLIA [id number] [place] [address] [place] MCHC (RBC) [Mass/Vol] 35.2 g/dL Normal 30.5-36.0 [facility] Comment on above: Order Comment: Speci men Type: BLOOD SPECIMENOrdering Facility: [facility] Address: [address] [place] [address] Performed By: #### 5 7021-8 ####[facility]ITAL[facility]CL[facility] [id number] [place] [address] [place] MCV (RBC) [Entitic vol] 94.5 fL Normal 80.0-100.0 [facility] Comment on above: Order Comment: Speci men Type: BLOOD SPECIMENOrdering Facility: [facility] Address: [address] [place] [address] Performed By: #### 5 7021-8 ####[facility]PITALNCA [id number] [place] [address] [place] Monocytes (Bld) [#/Vol] 0.18 10*3/uL Normal <0.87 [facility] Comment on above: Order Comment: Speci men Type: BLOOD SPECIMENOrdering Facility: [facility] Address: [address] [place] [address] Performed By: #### 5 7021-8 ####[facility]ITALNCLIA [id number] [address] STATES [facility] Monocytes/100 WBC (Bld) 5.6 % Normal [facility] Comment on above: Order Comment: Speci men Type: BLOOD SPECIMENOrdering Facility: [facility] Address: [address] [place], [place] [address] Performed By: #### 5 7021-8 ####[facility]ITALNCLIA [id number] [place] [id number] [place] Neutrophils (Bld) [#/Vol] 1.30 10*3/uL Low 1.45-7.50 [facility] Comment on above: Order Comment: Speci men Type: BLOOD SPECIMENOrdering Facility: [facility] Address: [address] [place] [address] Performed By: #### 5 7021-8 ####[facility] [id number] [place] [address] [place] Neutrophils/100 WBC (Bld) 40.8 % Normal [facility] Comment on above: Order Comment: Speci men Type: BLOOD SPECIMENOrdering Facility: [facility] Address: [address] [place] [address] Performed By: #### 5 7021-8 ####[facility] [id number] [place] [address] [place] Nucleated RBC (Bld) [#/Vol] 10*3/uL Normal <0.01 [facility] Comment on above: Order Comment: Speci men Type: BLOOD SPECIMENOrdering Facility: [facility] Address: [address] [place] [address] Performed By: #### 5 7021-8 ####[facility] [id number] [place] [address] [place] Nucleated RBC/100 WBC (Bld) [Ratio] 0.0 /100 WBC Normal [facility] Comment on above: Order Comment: Speci men Type: BLOOD SPECIMENOrdering Facility: [facility] Address: [address] [place] [address] Performed By: #### 5 7021-8 ####[facility]ITALNCLI [id number] [place] [address] [place] Platelet mean volume (Bld) [Entitic vol] 9.1 fL Normal 9.0-12.7 [facility] Comment on above: Order Comment: Speci men Type: BLOOD SPECIMENOrdering Facility: [facility] Address: [address] [place] [address] Performed By: #### 5 7021-8 ####[facility] ROSY ANDERSONNCLIA [id number] [place] [address] [place] Platelets (Bld) [#/Vol] 241 10*3/uL Normal 150-400 [facility] Comment on above: Order Comment: Speci men Type: BLOOD SPECIMENOrdering Facility: [facility] Address: [address] [place] [address] Performed By: #### 5 7021-8 ####[facility] MONICANCLIA [id number] [place] [address] [place] RBC (Bld) [#/Vol] 3.82 10*6/uL Low 3.90-5.20 [facility] Comment on above: Order Comment: Speci men Type: BLOOD SPECIMENOrdering Facility: [facility] Address: [address] [place], [place] [address] Performed By: #### 5 7021-8 ####[facility] IVONNEONANCOCKNCLIA [id number] [place] [address] [place] WBC (Bld) [#/Vol] 3.19 10*3/uL Low 3.70-11.00 [facility] Comment on above: Order Comment: Speci men Type: BLOOD SPECIMENOrdering Facility: [facility] Address: [address] [place] [address] Performed By: #### 5 7021-8 ####[facility]ITALNCLIA [id number] [place] [address] [place] CNOVSPon 02-08-2025 CNOVSP Normal [facility] CORTISOL, SERUMon 02-08-2025 Cortisol [Mass/Vol] 12.3 ug/dL 4.8 - 19 .5 ug/dL [facility] Comment on above: Provided reference r cristian is from 6-10 AM sample collection time. Cortisol Reference Range: 6-10 AM = 4.8-19.5 ug/dL, 4-8 PM = 2.5-11.9 ug/dL Comprehensive metabolic 2000 panelOrdered By: Meeta Lau on 02-08-2025 Albumin [Mass/Vol] 4.1 g/dL 3.9 - 4.9 g/dL [facility] ALP [Catalytic activity/Vol] 67 U/L 34 - 123 U/L [facility] ALT [Catalytic activity/Vol] 31 U/L 7 - 38 U/L [facility] Anion gap [Moles/Vol] 12 mmol/L 8 - 15 mmol/L [facility] AST [Catalytic activity/Vol] 19 U/L 13 - 35 U/L [facility] Bilirubin [Mass/Vol] 0.3 mg/dL 0.2 - 1 .3 mg/dL [facility] Calcium [Mass/Vol] 10 mg/dL 8.5 - 10. 2 mg/dL [facility] Chloride [Moles/Vol] 103 mmol/L 98 - 10 7 mmol/L [facility] CO2 [Moles/Vol] 23 mmol/L 22 - 30 mmol/L [facility] Creatinine [Mass/Vol] 0.59 mg/dL 0.58 - 0.96 mg/dL [facility] GFR/1.73 sq M.predicted among non-blacks MDRD (S/P/Bld) [Vol rate/Area] 97 mL/min/{1.73_m2} - PINF [facility] Comment on above: Estimated Glomerular Filtration [...] 115 mg/dL High 74 - 99 mg/dL [facility] Comment on above: The [place] Diabete s Association (ADA) provides guidance for [...] Standards of Medical Care in Diabetes 2016, [place] [employer] Association. Diabetes Care. 2016.39(Suppl 1). Interpretation and review of laboratory results Abnormal [facility] Potassium [Moles/Vol] 4.1 mmol/L 3.7 - 5.1 mmol/L [facility] Protein [Mass/Vol] 6.7 g/dL 6.3 - 8.0 g/dL [facility] Sodium [Moles/Vol] 138 mmol/L 136 - 144 mmol/L [facility] Urea nitrogen [Mass/Vol] 15 mg/dL 7 - 21 mg/dL [facility] Comprehensive metabolic 2000 panelon 02-08-2025 Albumin [Mass/Vol] 4.1 g/dL Normal 3.9-4.9 [facility] Comment on above: Order Comment: Speci men Type: BLOOD SPECIMENOrdering Facility: [facility] Address: [address] [place] [id number] Performed By: #### 2 4323-8, ####[facility] [id number] [place] [address] [place] ALP [Catalytic activity/Vol] 67 U/L Normal 34-123 [facility] Comment on above: Order Comment: Speci men Type: BLOOD SPECIMENOrdering Facility: [facility] Address: [address] [place] [address] Performed By: #### 2 4323-8, ####[facility] [id number] [place] [address] [place] ALT [Catalytic activity/Vol] 31 U/L Normal 7-38 [facility] Comment on above: Order Comment: Speci men Type: BLOOD SPECIMENOrdering Facility: [facility] Address: [address] [place] [address] Performed By: #### 2 4323-8, ####[facility] MILLTOWNCLIA [id number] [place] [address] [place] Anion gap [Moles/Vol] 12 mmol/L Normal 8-15 [facility] Comment on above: Order Comment: Speci men Type: BLOOD SPECIMENOrdering Facility: [facility] Address: [address] [place] [address] Performed By: #### 2 4323-8, ####[facility] IVONNEWKENISHALIA [id number] [place] [address] [place] AST [Catalytic activity/Vol] 19 U/L Normal 13-35 [facility] Comment on above: Order Comment: Speci men Type: BLOOD SPECIMENOrdering Facility: [facility] Address: [address] [place] [address] Performed By: #### 2 432-8, ####[facility] IVONNEWKENISHALIA [id number] [place] [address] [place] Bilirubin [Mass/Vol] 0.3 mg/dL Normal 0.2-1.3 [facility] Comment on above: Order Comment: Speci men Type: BLOOD SPECIMENOrdering Facility: [facility] Address: [address] [place] [address] Performed By: #### 2 432-8, ####[facility] MILLWNCLIA [id number] [place] [address] [place] Calcium [Mass/Vol] 10.0 mg/dL Normal 8.5-10.2 [facility] Comment on above: Order Comment: Speci men Type: BLOOD SPECIMENOrdering Facility: [facility] Address: [address] [place] [address] Performed By: #### 2 4323-8, ####[facility] MILLWNCLIA [id number] [place] [address] [place] Chloride [Moles/Vol] 103 mmol/L Normal 98-107 [facility] Comment on above: Order Comment: Speci men Type: BLOOD SPECIMENOrdering Facility: [facility] Address: [address] [place] [address] Performed By: #### 2 4323-8, ####[facility]OSPITALNCLIA [id number] [place] [address] [place] CO2 [Moles/Vol] 23 mmol/L Normal 22-30 [facility] Comment on above: Order Comment: Speci men Type: BLOOD SPECIMENOrdering Facility: [facility] Address: [address] [place] [address] Performed By: #### 2 4323-8, ####[facility] HOSPITALLIA [id number] [place] [address] [place] Creatinine [Mass/Vol] 0.59 mg/dL Normal 0.58-0.96 [facility] Comment on above: Order Comment: Speci men Type: BLOOD SPECIMENOrdering Facility: [facility] Address: [address] [place] [address] Performed By: #### 2 4323-8, ####[facility]OSPITALNCLIA [id number] [place] [address] [place] [facility] Creatinine and Glomerular filtration rate.predicted panel (S/P/Bld) 97 mL/min/1.73m??? Normal >=60 [facility] Comment on above: Order Comment: Speci men Type: BLOOD SPECIMENOrdering Facility: [facility] Address: [address] [place] [address] Result Comment: Coco mated Glomerular Filtration Rate [...] reflect actual GFR. Performed By: #### 2 432-8, ####[facility] ROSY IVONNENATHANWNCLIA [id number] [place] [address] [place] Glucose [Mass/Vol] 115 mg/dL High 74-99 [facility] Comment on above: Order Comment: Cam silva Type: BLOOD SPECIMENOrdering Facility: [facility] Address: [address] [place], [place] [address] Result Comment: The [place] Diabetes Association (ADA) provides guidance for cutoff values for fasting glucose and random glucose. The ADA defines fasting as no caloric intake for at least 8 hours. Fasting plasma glucose results between 100 to 125 mg/dL indicate increased risk for diabetes (prediabetes).Fasting plasma glucose results greater than or equal to 126 mg/dL meet the criteria for diagnosis of diabetes. In the absence of unequivocal hyperglycemia, results should be confirmed by repeat testing. In a patient with classic symptoms of hyperglycemia or hyperglycemic crisis, random plasma glucose results greater than or equal to 200 mg/dL meet the criteria for diagnosis of diabetes.Reference: Standards of Medical Care in Diabetes 2016, [place] Diabetes Association. Diabetes Care. 2016.39(Suppl 1). Performed By: #### 2 43210-16, ####[facility] ERWKENISHALIA [id number] [place] [address] [place] Potassium [Moles/Vol] 4.1 mmol/L Normal 3.7-5.1 [facility] Comment on above: Order Comment: Cam silva Type: BLOOD SPECIMENOrdering Facility: [facility] Address: [address] [place] [address] Performed By: #### 2 4323-, ####[facility] ERWNCLIA [id number] [place] [address] [place] Protein [Mass/Vol] 6.7 g/dL Normal 6.3-8.0 [facility] Comment on above: Order Comment: Speci men Type: BLOOD SPECIMENOrdering Facility: [facility] Address: [address] [place] [address] Performed By: #### 2 4323-8, 03081-5 ####[facility] MILLONANCOCKNCLIA [id number] [place] [address] [place] Sodium [Moles/Vol] 138 mmol/L Normal 136-144 [facility] Comment on above: Order Comment: Speci men Type: BLOOD SPECIMENOrdering Facility: [facility] Address: [address] [place] [address] Performed By: #### 2 4323-8, 84175-0 ####[facility]OSPITALNCLIA [id number] [address] [place] Urea nitrogen [Mass/Vol] 15 mg/dL Normal 7-21 [facility] Comment on above: Order Comment: Speci men Type: BLOOD SPECIMENOrdering Facility: [facility] Address: [address] [place] [address] Performed By: #### 2 4323-8, 61750-8 ####[facility] HOSPITALLIA [id number] [address] [place] Cortis SerPl-kenishaon 02-09-20 25 Cortisol [Mass/Vol] 12.3 ug/dL Normal 4.8-19.5 [facility] Comment on above: Order Comment: Speci men Type: BLOOD SPECIMENOrdering Facility: [facility] Address: [address] [place] [address] Result Comment: Prov ided reference range is from 6-10 AM sample collection time.Cortisol Reference Range: 6-10 AM = 4.8-19.5 ug/dL, 4-8 PM = 2.5-11.9 ug/dL Performed By: #### 2 143-6, 3016-3, 3024-7 ####[facility] LABCLIA [id number] [place] [id number] [place] MAGNESIUMon 02-08-2025 Magnesium [Mass/Vol] 2.1 mg/dL 1.7 - 2 .3 mg/dL [facility] Magnesium SerPl-mCncon 02-08 Magnesium [Mass/Vol] 2.1 mg/dL Normal 1.7-2.3 [facility] Comment on above: Order Comment: Speci men Type: BLOOD SPECIMENOrdering Facility: [facility] Address: [address] [place] [address] Performed By: #### 2 4323-8, 95600-7 ####[facility] ROSY MILLBEDFORD REGIONAL MEDICAL CENTERLIA [id number] [place] [address] [place] Magnesium [Mass/Vol]on 02-08 Interpretation and review of laboratory results Normal [facility] No Panel Informationon 02-08 Interpretation and review of laboratory results Normal [facility] No Panel InformationOrdered By: Meeta Lau on 02-08-2025 [facility] T4 FREE/FREE THYROXINEon Free T4 [Mass/Vol] 1 ng/dL 0.9 - 1.7 ng/dL [facility] T4 Free SerPl-mCncon 025 Free T4 [Mass/Vol] 1.0 ng/dL Normal 0.9-1.7 [facility] Comment on above: Order Comment: Speci men Type: BLOOD SPECIMENOrdering Facility: [facility] Address: [address] [place], [place] [address] Performed By: #### 2 143-6, 3016-3, 3024-7 ####[facility] LABCLIA [id number] [place] [id number] [place] THYROID STIMULATING HORMONEo n 02-08-2025 TSH Qn 3.57 m[IU]/L [facility] TSH SerPl-aCncon 02-08-2025 TSH Qn 3.570 m[IU]/L Normal 0.270-4.200 [facility] Comment on above: Order Comment: Speci men Type: BLOOD SPECIMENOrdering Facility: [facility] Address: [address] [place] [address] Performed By: #### 2 143-6, 3016-3, 3024-7 ####[facility] LABCLIA [id number] [place] [address] [place] XR CHEST 2V FRONTAL/LATon XR CHEST 2V FRONTAL/LAT Normal [facility] XR Chest PA and Lateralon IMPRESSION: Infusion catheter in satisfactory position. No active cardiopulmonary disease Catheter Finisher And Inspector: PSCB Transcribe Date/Time: Feb 08 2025 12:27P Dictated by : HARRISON PURI MD This examination was interpreted and the report reviewed and electronically signed by: HARRISON PURI MD on Feb 08 2025 12:29PM [facility] * * *Final Report* [...] soft tissues: Unremarkable. DIVISION OF RADIOLOGY Provider, Tabitha Lani Moore - 02/08/2025 * * *Final Report* * [...] in satisfactory position. No active cardiopulmonary disease Catheter Finisher And Inspector: PSCB Transcribe Date/Time: Feb 08 2025 12:27P Dictated by : HARRISON PRUI MD This examination was interpreted and the report reviewed and electronically signed by: HARRISON PURI MD on Feb 08 2025 12:29PM EST [facility] Radiology Study observation (narrative) [facility] XR Chest PA and LateralOrder ed By: Ccf Provider on 02-08-2025 [facility] CNPNon 02-04-2025 CNPN Normal [facility] CBC W Auto Differential pane l (Bld)on 02-01-2025 Basophils (Bld) [#/Vol] 0.03 10*3/uL [facility] Basophils/100 WBC (Bld) 1 % [facility] Differential cell count method Nom (Bld) Auto [facility] Eosinophils (Bld) [#/Vol] 0.06 10*3/uL [facility] Eosinophils/100 WBC (Bld) 2 % [facility] Erythrocyte distribution width (RBC) [Ratio] 11.2 % Low 11.5 - 15.0 % [facility] Hematocrit (Bld) [Volume fraction] 37.8 % 36.0 - 46.0 % [facility] Hemoglobin (Bld) [Mass/Vol] 13.1 g/dL 11.5 - 15.5 g/dL [facility] Immature granulocytes (Bld) [#/Vol] [facility] Immature granulocytes/100 WBC (Bld) 0.3 % [facility] Interpretation and review of laboratory results Abnormal [facility] Lymphocytes (Bld) [#/Vol] 1.46 10*3/uL [facility] Lymphocytes/100 WBC (Bld) 49.8 % [facility] MCH (RBC) [Entitic mass] 32.8 pg 26.0 - 34.0 pg [facility] MCHC (RBC) [Mass/Vol] 34.7 g/dL 30.5 - 36.0 g/dL [facility] MCV (RBC) [Entitic vol] 94.7 fL 80.0 - 100.0 fL [facility] Monocytes (Bld) [#/Vol] 0.13 10*3/uL [facility] Monocytes/100 WBC (Bld) 4.4 % [facility] Neutrophils (Bld) [#/Vol] 1.24 10*3/uL Low [facility] Neutrophils/100 WBC (Bld) 42.5 % [facility] Nucleated RBC (Bld) [#/Vol] [facility] Nucleated RBC/100 WBC (Bld) [Ratio] 0 % /100 WBC [facility] Platelet mean volume (Bld) [Entitic vol] 9.3 fL 9.0 - 12.7 fL [facility] Platelets (Bld) [#/Vol] 216 10*3/uL [facility] RBC (Bld) [#/Vol] 3.99 10*6/uL 3.90 - 5.2 0 m/uL [facility] WBC (Bld) [#/Vol] 2.93 10*3/uL Low [facility] Basophils (Bld) [#/Vol] 0.03 10*3/uL Normal <0.11 [facility] Comment on above: Order Comment: Speci men Type: BLOOD SPECIMENOrdering Facility: [facility] Address: [address] [place] [address] Performed By: #### 5 7021-8 ####[facility] ROSY [facility] [id number] [place] [address] [place] Basophils/100 WBC (Bld) 1.0 % Normal [facility] Comment on above: Order Comment: Speci men Type: BLOOD SPECIMENOrdering Facility: [facility] Address: [address] [place] [address] Performed By: #### 5 7021-8 ####[facility] HOSPITALHAYDEN [id number] [place] [address] [place] Differential cell count method Nom (Bld) Auto Normal [facility] Comment on above: Order Comment: Speci men Type: BLOOD SPECIMENOrdering Facility: [facility] Address: [address] [place] [address] Performed By: #### 5 7021-8 ####[facility]ITALNCP[facility] [id number] [place] [address] [place] Eosinophils (Bld) [#/Vol] 0.06 10*3/uL Normal <0.46 [facility] Comment on above: Order Comment: Speci men Type: BLOOD SPECIMENOrdering Facility: [facility] Address: [address] [place] [address] Performed By: #### 5 7021-8 ####[facility] [id number] [place] [address] [place] Eosinophils/100 WBC (Bld) 2.0 % Normal [facility] Comment on above: Order Comment: Speci men Type: BLOOD SPECIMENOrdering Facility: [facility] Address: [address] [place] [address] Performed By: #### 5 7021-8 ####[facility] [id number] [place] [address] [place] Erythrocyte distribution width (RBC) [Ratio] 11.2 % Low 11.5-15.0 [facility] Comment on above: Order Comment: Speci men Type: BLOOD SPECIMENOrdering Facility: [facility] Address: [address] [place] [address] Performed By: #### 5 7021-8 ####[facility] ERWNCLIA [id number] [place] [address] [place] Hematocrit (Bld) [Volume fraction] 37.8 % Normal 36.0-46.0 [facility] Comment on above: Order Comment: Speci men Type: BLOOD SPECIMENOrdering Facility: [facility] Address: [address] [place] [address] Performed By: #### 5 7021-8 ####[facility] HOSPITALLIA [id number] [place] [address] [place] Hemoglobin (Bld) [Mass/Vol] 13.1 g/dL Normal 11.5-15.5 [facility] Comment on above: Order Comment: Speci men Type: BLOOD SPECIMENOrdering Facility: [facility] Address: [address] [place] [address] Performed By: #### 5 7021-8 ####[facility] [id number] [place] [address] [place] Immature granulocytes (Bld) [#/Vol] 10*3/uL Normal <0.10 [facility] Comment on above: Order Comment: Speci men Type: BLOOD SPECIMENOrdering Facility: [facility] Address: [address] [place] [address] Performed By: #### 5 7021-8 ####[facility] [id number] [place] [address] [place] Immature granulocytes/100 WBC (Bld) 0.3 % Normal [facility] Comment on above: Order Comment: Speci men Type: BLOOD SPECIMENOrdering Facility: [facility] Address: [address] [place] [address] Performed By: #### 5 7021-8 ####[facility] H[facility]ALLIA [id number] [place] [address] [place] Lymphocytes (Bld) [#/Vol] 1.46 10*3/uL Normal 1.00-4.00 [facility] Comment on above: Order Comment: Speci men Type: BLOOD SPECIMENOrdering Facility: [facility] Address: [address] [place] [address] Performed By: #### 5 7021-8 ####[facility]ALL[facility] [id number] [place] [address] [place] Lymphocytes/100 WBC (Bld) 49.8 % Normal [facility] Comment on above: Order Comment: Speci men Type: BLOOD SPECIMENOrdering Facility: [facility] Address: [address] [place] [address] Performed By: #### 5 7021-8 ####[facility] [id number] [place] [address] [place] MCH (RBC) [Entitic mass] 32.8 pg Normal 26.0-34.0 [facility] Comment on above: Order Comment: Speci men Type: BLOOD SPECIMENOrdering Facility: [facility] Address: [address] [place] [address] Performed By: #### 5 7021-8 ####[facility] [id number] [place] [address] [place] MCHC (RBC) [Mass/Vol] 34.7 g/dL Normal 30.5-36.0 [facility] Comment on above: Order Comment: Speci men Type: BLOOD SPECIMENOrdering Facility: [facility] Address: [address] [place] [address] Performed By: #### 5 7021-8 ####[facility]PITALNCLI [id number] [place] [address] [place] MCV (RBC) [Entitic vol] 94.7 fL Normal 80.0-100.0 [facility] Comment on above: Order Comment: Speci men Type: BLOOD SPECIMENOrdering Facility: [facility] Address: [address] [place] [address] Performed By: #### 5 7021-8 ####[facility] IVONNEONANCOCKJACOBA [id number] [place] [address] [place] Monocytes (Bld) [#/Vol] 0.13 10*3/uL Normal <0.87 [facility] Comment on above: Order Comment: Speci men Type: BLOOD SPECIMENOrdering Facility: [facility] Address: [address] [place] [address] Performed By: #### 5 7021-8 ####[facility] [id number] [place] [address] [place] Monocytes/100 WBC (Bld) 4.4 % Normal [facility] Comment on above: Order Comment: Speci men Type: BLOOD SPECIMENOrdering Facility: [facility] Address: [address] [place] [address] Performed By: #### 5 7021-8 ####[facility] [id number] [place] [address] [place] Neutrophils (Bld) [#/Vol] 1.24 10*3/uL Low 1.45-7.50 [facility] Comment on above: Order Comment: Speci men Type: BLOOD SPECIMENOrdering Facility: [facility] Address: [address] [place] [address] Performed By: #### 5 7021-8 ####[facility]ALL[facility] [id number] [place] [address] [place] Neutrophils/100 WBC (Bld) 42.5 % Normal [facility] Comment on above: Order Comment: Speci men Type: BLOOD SPECIMENOrdering Facility: [facility] Address: [address] [place] [address] Performed By: #### 5 7021-8 ####[facility] HOSPITALSOPHIELIA [id number] [place] [address] [place] Nucleated RBC (Bld) [#/Vol] 10*3/uL Normal <0.01 [facility] Comment on above: Order Comment: Speci men Type: BLOOD SPECIMENOrdering Facility: [facility] Address: [address] [place] [address] Performed By: #### 5 7021-8 ####[facility] HOSPITALJACOB [id number] [place] [address] [place] Nucleated RBC/100 WBC (Bld) [Ratio] 0.0 /100 WBC Normal [facility] Comment on above: Order Comment: Speci men Type: BLOOD SPECIMENOrdering Facility: [facility] Address: [address] [place] [address] Performed By: #### 5 7021-8 ####[facility] [id number] [place] [address] [place] Platelet mean volume (Bld) [Entitic vol] 9.3 fL Normal 9.0-12.7 [facility] Comment on above: Order Comment: Speci men Type: BLOOD SPECIMENOrdering Facility: [facility] Address: [address] [place] [address] Performed By: #### 5 7021-8 ####[facility] HOSPITALSANCHEZA [id number] [place] [address] [place] Platelets (Bld) [#/Vol] 216 10*3/uL Normal 150-400 [facility] Comment on above: Order Comment: Speci men Type: BLOOD SPECIMENOrdering Facility: [facility] Address: [address] [place] [address] Performed By: #### 5 7021-8 ####[facility]PITALNCLI [id number] [place] [address] [place] RBC (Bld) [#/Vol] 3.99 10*6/uL Normal 3.90-5.20 [facility] Comment on above: Order Comment: Speci men Type: BLOOD SPECIMENOrdering Facility: [facility] Address: [address] [place] [address] Performed By: #### 5 7021-8 ####[facility] HOSPITALNCLIA [id number] [place] [address] [facility] WBC (Bld) [#/Vol] 2.93 10*3/uL Low 3.70-11.00 [facility] Comment on above: Order Comment: Speci men Type: BLOOD SPECIMENOrdering Facility: [facility] Address: [address] [place] [address] Performed By: #### 5 7021-8 ####[facility]OSPITALNCLIA [id number] [address] OF [place] Comprehensive metabolic 2000 panelOrdered By: Meeta Lau on 02-01-2025 Albumin [Mass/Vol] 3.9 g/dL 3.9 - 4.9 g/dL [facility] ALP [Catalytic activity/Vol] 64 U/L 34 - 123 U/L [facility] ALT [Catalytic activity/Vol] 31 U/L 7 - 38 U/L [facility] Anion gap [Moles/Vol] 13 mmol/L 8 - 15 mmol/L [facility] AST [Catalytic activity/Vol] 19 U/L 13 - 35 U/L [facility] Bilirubin [Mass/Vol] 0.4 mg/dL 0.2 - 1 .3 mg/dL [facility] Calcium [Mass/Vol] 9.6 mg/dL 8.5 - 10. 2 mg/dL [facility] Chloride [Moles/Vol] 105 mmol/L 98 - 10 7 mmol/L [facility] CO2 [Moles/Vol] 22 mmol/L 22 - 30 mmol/L [facility] Creatinine [Mass/Vol] 0.57 mg/dL Low 0.58 - 0.96 mg/dL [facility] GFR/1.73 sq M.predicted among non-blacks MDRD (S/P/Bld) [Vol rate/Area] 98 mL/min/{1.73_m2} - PINF [facility] Comment on above: Estimated Glomerular Filtration [...] 116 mg/dL High 74 - 99 mg/dL [facility] Comment on above: The [place] Diabete s Association (ADA) provides guidance for [...] Standards of Medical Care in Diabetes 2016, [place] [employer]. Diabetes Care. 2016.39(Suppl 1). Interpretation and review of laboratory results Abnormal [facility] Potassium [Moles/Vol] 4.2 mmol/L 3.7 - 5.1 mmol/L [facility] Protein [Mass/Vol] 6.5 g/dL 6.3 - 8.0 g/dL [facility] Sodium [Moles/Vol] 140 mmol/L 136 - 144 mmol/L [facility] Urea nitrogen [Mass/Vol] 11 mg/dL 7 - 21 mg/dL [facility] Comprehensive metabolic 2000 panelon 02-01-2025 Albumin [Mass/Vol] 3.9 g/dL Normal 3.9-4.9 [facility] Comment on above: Order Comment: Speci men Type: BLOOD SPECIMENOrdering Facility: [facility] Address: [address] [place], [place] [address] [address] Performed By: #### 2 4323-8, 01995-3 ####[facility] ROSY EDMOND [id number] [place] [address] [place] ALP [Catalytic activity/Vol] 64 U/L Normal 34-123 [facility] Comment on above: Order Comment: Speci men Type: BLOOD SPECIMENOrdering Facility: [facility] Address: [address] [place] [address] Performed By: #### 2 4323-8, 61900-0 ####[facility] MILLTOWKENISHALIA [id number] [place] [address] [place] ALT [Catalytic activity/Vol] 31 U/L Normal 7-38 [facility] Comment on above: Order Comment: Speci men Type: BLOOD SPECIMENOrdering Facility: [facility] Address: [address] [place] [address] Performed By: #### 2 4323-8, 05726-3 ####[facility] HOSPITALKENISHALIA [id number] [place] [address] [place] Anion gap [Moles/Vol] 13 mmol/L Normal 8-15 [facility] Comment on above: Order Comment: Speci men Type: BLOOD SPECIMENOrdering Facility: [facility] Address: [address] [place] [address] Performed By: #### 2 4323-8, 88585-1 ####[facility] ERADRIANNE [id number] [place] [address] [place] AST [Catalytic activity/Vol] 19 U/L Normal 13-35 [facility] Comment on above: Order Comment: Speci men Type: BLOOD SPECIMENOrdering Facility: [facility] Address: [address] [place] [address] Performed By: #### 2 4323-8, 95372-6 ####[facility] ERWNCLIA [id number] [place] [address] [place] Bilirubin [Mass/Vol] 0.4 mg/dL Normal 0.2-1.3 [facility] Comment on above: Order Comment: Speci men Type: BLOOD SPECIMENOrdering Facility: [facility] Address: [address] [place] [address] Performed By: #### 2 432-8, ####[facility] HOSPITALHAYDEN [id number] [place] [address] [place] Calcium [Mass/Vol] 9.6 mg/dL Normal 8.5-10.2 [facility] Comment on above: Order Comment: Speci men Type: BLOOD SPECIMENOrdering Facility: [facility] Address: [address] [place] [address] Performed By: #### 2 432-8, ####[facility] HOSPITALTrae [id number] [place] [address] [place] Chloride [Moles/Vol] 105 mmol/L Normal 98-107 [facility] Comment on above: Order Comment: Speci men Type: BLOOD SPECIMENOrdering Facility: [facility] Address: [address] [place] [address] Performed By: #### 2 432-8, ####[facility] HOSPITALSUZY [id number] [place] [address] [place] CO2 [Moles/Vol] 22 mmol/L Normal 22-30 [facility] Comment on above: Order Comment: Speci men Type: BLOOD SPECIMENOrdering Facility: [facility] Address: [address] [place] [address] Performed By: #### 2 4323-8, ####[facility] HOSPITALKENISHAA [id number] [place] [address] [place] Creatinine [Mass/Vol] 0.57 mg/dL Low 0.58-0.96 [facility] Comment on above: Order Comment: Speci men Type: BLOOD SPECIMENOrdering Facility: [facility] Address: [address] [place], [place] [address] Performed By: #### 2 4323-8, 07667-5 ####[facility] HOSPITALNCLIA [id number] [place] [address] [place] Creatinine and Glomerular filtration rate.predicted panel (S/P/Bld) 98 mL/min/1.73m??? Normal >=60 [facility] Comment on above: Order Comment: Cam silva Type: BLOOD SPECIMENOrdering Facility: [facility] Address: [address] [place] [address] Result Comment: Coco mated Glomerular Filtration Rate [...] actual GFR. Performed By: #### 2 4323-8, 11537-6 ####[facility] HOSPITALLIA [id number] [place] [address] [place] Glucose [Mass/Vol] 116 mg/dL High 74-99 [facility] Comment on above: Order Comment: Cam ricardo Type: BLOOD SPECIMENOrdering Facility: [facility] Address: [address] [place] [address] Result Comment: The [place] Diabetes Association (ADA) provides guidance for cutoff values for fasting glucose and random glucose. The ADA defines fasting as no caloric intake for at least 8 hours. Fasting plasma glucose results between 100 to 125 mg/dL indicate increased risk for diabetes (prediabetes).Fasting plasma glucose results greater than or equal to 126 mg/dL meet the criteria for diagnosis of diabetes. In the absence of unequivocal hyperglycemia, results should be confirmed by repeat testing. In a patient with classic symptoms of hyperglycemia or hyperglycemic crisis, random plasma glucose results greater than or equal to 200 mg/dL meet the criteria for diagnosis of diabetes.Reference: Standards of Medical Care in Diabetes 2016, [place] [employer]. Diabetes Care. 2016.39(Suppl 1). Performed By: #### 2 4323-8, 80686-1 ####[facility] ROSY IVONNENALDO [id number] [place] [address] [place] Potassium [Moles/Vol] 4.2 mmol/L Normal 3.7-5.1 [facility] Comment on above: Order Comment: Speci men Type: BLOOD SPECIMENOrdering Facility: [facility] Address: [address] [place] [address] Performed By: #### 2 4323-8, 73633-0 ####[facility] HOSPITALHAYDEN [id number] [place] [address] [place] Protein [Mass/Vol] 6.5 g/dL Normal 6.3-8.0 [facility] Comment on above: Order Comment: Speci men Type: BLOOD SPECIMENOrdering Facility: [facility] Address: [address] [place] [address] Performed By: #### 2 4323-8, 09517-6 ####[facility]IAL[facility] HOSPITALJACOBA [id number] [place] [address] [place] Sodium [Moles/Vol] 140 mmol/L Normal 136-144 [facility] Comment on above: Order Comment: Speci men Type: BLOOD SPECIMENOrdering Facility: [facility] Address: [address] [place] [address] Performed By: #### 2 4323-8, ####[facility] HOSPITALJACOBA [id number] [place] [address] [place] Urea nitrogen [Mass/Vol] 11 mg/dL Normal 7-21 [facility] Comment on above: Order Comment: Speci men Type: BLOOD SPECIMENOrdering Facility: [facility] Address: [address] [place] [address] Performed By: #### 2 4323-8, ####[facility] ROSY MILLTOWNCLIA [id number] [place] [address] [place] MAGNESIUMon 02-01-2025 Magnesium [Mass/Vol] 1.9 mg/dL 1.7 - 2 .3 mg/dL [facility] Magnesium SerPl-mCncon 02-01 Magnesium [Mass/Vol] 1.9 mg/dL Normal 1.7-2.3 [facility] Comment on above: Order Comment: Speci men Type: BLOOD SPECIMENOrdering Facility: [facility] Address: [address] [place] [address] Performed By: #### 2 8, ####[facility] ROSY MILLTOWNCLIA [id number] [place] [address] [place] Magnesium [Mass/Vol]on 02-01 Interpretation and review of laboratory results Normal [facility] No Panel InformationOrdered By: Meeta Lau on 02-01-2025 [facility] CNPNon 01-26-2025 CNPN Normal [facility] Basic metabolic 2000 panelOr dered By: Meeta Lau on 01-25-2025 Anion gap [Moles/Vol] 9 mmol/L 8 - 15 mmol/L [facility] Calcium [Mass/Vol] 8.9 mg/dL 8.5 - 10. 2 mg/dL [facility] Chloride [Moles/Vol] 102 mmol/L 98 - 10 7 mmol/L [facility] CO2 [Moles/Vol] 24 mmol/L 22 - 30 mmol/L [facility] Creatinine [Mass/Vol] 0.61 mg/dL 0.58 - 0.96 mg/dL [facility] GFR/1.73 sq M.predicted among non-blacks MDRD (S/P/Bld) [Vol rate/Area] 96 mL/min/{1.73_m2} - PINF [facility] Comment on above: Estimated Glomerular Filtration [...] 109 mg/dL High 74 - 99 mg/dL [facility] Comment on above: The [place] Diabete s Association (ADA) provides guidance for [...] Standards of Medical Care in Diabetes 2016, [place] [employer]. Diabetes Care. 2016.39(Suppl 1). Interpretation and review of laboratory results Abnormal [facility] Potassium [Moles/Vol] 4.1 mmol/L 3.7 - 5.1 mmol/L [facility] Sodium [Moles/Vol] 135 mmol/L Low 136 - 144 mmol/L [facility] Urea nitrogen [Mass/Vol] 11 mg/dL 7 - 21 mg/dL [facility] Basic metabolic 2000 panelon 01-25-2025 Anion gap [Moles/Vol] 9 mmol/L Normal 8-15 [facility] Comment on above: Order Comment: Speci men Type: BLOOD SPECIMENOrdering Facility: [facility] Address: [address] [place] [address] Performed By: #### 2 4321-2 ####[facility] HOSPITALLIA [id number] [place] [id number] [place] Calcium [Mass/Vol] 8.9 mg/dL Normal 8.5-10.2 [facility] Comment on above: Order Comment: Speci men Type: BLOOD SPECIMENOrdering Facility: [facility] Address: [address] [place] [address] Performed By: #### 2 4321-2 ####[facility] [id number] [place] [address] [place] Chloride [Moles/Vol] 102 mmol/L Normal 98-107 [facility] Comment on above: Order Comment: Speci men Type: BLOOD SPECIMENOrdering Facility: [facility] Address: [address] [place] [address] Performed By: #### 2 4321-2 ####[facility] [id number] [place] [address] [place] CO2 [Moles/Vol] 24 mmol/L Normal 22-30 [facility] Comment on above: Order Comment: Speci men Type: BLOOD SPECIMENOrdering Facility: [facility] Address: [address] [place] [address] Performed By: #### 2 4321-2 ####[facility] [id number] [place] [address] [place] Creatinine [Mass/Vol] 0.61 mg/dL Normal 0.58-0.96 [facility] Comment on above: Order Comment: Speci men Type: BLOOD SPECIMENOrdering Facility: [facility] Address: [address] [place] [address] Performed By: #### 2 4321-2 ####[facility] [id number] [place] [address] [place] [facility] Creatinine and Glomerular filtration rate.predicted panel (S/P/Bld) 96 mL/min/1.73m??? Normal >=60 [facility] Comment on above: Order Comment: Speci men Type: BLOOD SPECIMENOrdering Facility: [facility] Address: [address] [place] [address] Result Comment: Coco mated Glomerular Filtration Rate [...] actual GFR. Performed By: #### 2 4321-2 ####[facility]NCP[facility] [id number] [place] [address] [place] Glucose [Mass/Vol] 109 mg/dL High 74-99 [facility] Comment on above: Order Comment: Speci men Type: BLOOD SPECIMENOrdering Facility: [facility] Address: [address] [place] [address] Result Comment: The [place] Diabetes Association (ADA) provides guidance for cutoff values for fasting glucose and random glucose. The ADA defines fasting as no caloric intake for at least 8 hours. Fasting plasma glucose results between 100 to 125 mg/dL indicate increased risk for diabetes (prediabetes).Fasting plasma glucose results greater than or equal to 126 mg/dL meet the criteria for diagnosis of diabetes. In the absence of unequivocal hyperglycemia, results should be confirmed by repeat testing. In a patient with classic symptoms of hyperglycemia or hyperglycemic crisis, random plasma glucose results greater than or equal to 200 mg/dL meet the criteria for diagnosis of diabetes.Reference: Standards of Medical Care in Diabetes 2016, [place] [employer]. Diabetes Care. 2016.39(Suppl 1). Performed By: #### 2 4321-2 ####[facility] [id number] [place] [address] [place] Potassium [Moles/Vol] 4.1 mmol/L Normal 3.7-5.1 [facility] Comment on above: Order Comment: Terii men Type: BLOOD SPECIMENOrdering Facility: [facility] Address: [address] [place] [address] Performed By: #### 2 4321-2 ####[facility] [id number] [place] [address] [place] Sodium [Moles/Vol] 135 mmol/L Low 136-144 [facility] Comment on above: Order Comment: Terii men Type: BLOOD SPECIMENOrdering Facility: [facility] Address: [address] [place], [place] [address] Performed By: #### 2 4321-2 ####[facility] HOSPITALNCLI [id number] [address] [place] Urea nitrogen [Mass/Vol] 11 mg/dL Normal 7-21 [facility] Comment on above: Order Comment: Speci men Type: BLOOD SPECIMENOrdering Facility: [facility] Address: [address] [place] [address] Performed By: #### 2 4321-2 ####[facility] ERWNCLIA [id number] [place] [address] [place] CBC W Auto Differential pane l (Bld)on 01-25-2025 Basophils (Bld) [#/Vol] 0.04 10*3/uL [facility] Basophils/100 WBC (Bld) 1.1 % [facility] Differential cell count method Nom (Bld) Auto [facility] Eosinophils (Bld) [#/Vol] 0.14 10*3/uL [facility] Eosinophils/100 WBC (Bld) 3.9 % [facility] Erythrocyte distribution width (RBC) [Ratio] 11.1 % Low 11.5 - 15.0 % [facility] Hematocrit (Bld) [Volume fraction] 38.3 % 36.0 - 46.0 % [facility] Hemoglobin (Bld) [Mass/Vol] 13.3 g/dL 11.5 - 15.5 g/dL [facility] Immature granulocytes (Bld) [#/Vol] [facility] Immature granulocytes/100 WBC (Bld) 0.6 % [facility] Interpretation and review of laboratory results Abnormal [facility] Lymphocytes (Bld) [#/Vol] 1.28 10*3/uL [facility] Lymphocytes/100 WBC (Bld) 36 % [facility] MCH (RBC) [Entitic mass] 32.9 pg 26.0 - 34.0 pg [facility] MCHC (RBC) [Mass/Vol] 34.7 g/dL 30.5 - 36.0 g/dL [facility] MCV (RBC) [Entitic vol] 94.8 fL 80.0 - 100.0 fL [facility] Monocytes (Bld) [#/Vol] 0.17 10*3/uL NINF [facility] Monocytes/100 WBC (Bld) 4.8 % [facility] Neutrophils (Bld) [#/Vol] 1.91 10*3/uL [facility] Neutrophils/100 WBC (Bld) 53.6 % [facility] Nucleated RBC (Bld) [#/Vol] NINF [facility] Nucleated RBC/100 WBC (Bld) [Ratio] 0 % /100 WBC [facility] Platelet mean volume (Bld) [Entitic vol] 9.7 fL 9.0 - 12.7 fL [facility] Platelets (Bld) [#/Vol] 200 10*3/uL [facility] RBC (Bld) [#/Vol] 4.04 10*6/uL 3.90 - 5.2 0 m/uL [facility] WBC (Bld) [#/Vol] 3.56 10*3/uL Low [facility] Basophils (Bld) [#/Vol] 0.04 10*3/uL Normal <0.11 [facility] Comment on above: Order Comment: Speci men Type: BLOOD SPECIMENOrdering Facility: [facility] Address: [address] [place] [address] Performed By: #### 5 7021-8 ####[facility] [id number] [place] [address] [place] Basophils/100 WBC (Bld) 1.1 % Normal [facility] Comment on above: Order Comment: Speci men Type: BLOOD SPECIMENOrdering Facility: [facility] Address: [address] [place] [address] Performed By: #### 5 7021-8 ####[facility] [id number] [place] [address] [place] Differential cell count method Nom (Bld) Auto Normal [facility] Comment on above: Order Comment: Speci men Type: BLOOD SPECIMENOrdering Facility: [facility] Address: [address] [place] [address] Performed By: #### 5 7021-8 ####[facility] [facility] MILLTOWNCLIA [id number] [place] [address] [place] Eosinophils (Bld) [#/Vol] 0.14 10*3/uL Normal <0.46 [facility] Comment on above: Order Comment: Speci men Type: BLOOD SPECIMENOrdering Facility: [facility] Address: [address] [place] [address] Performed By: #### 5 7021-8 ####[facility] MILLWKENISHALIA [id number] [place] [address] [place] Eosinophils/100 WBC (Bld) 3.9 % Normal [facility] Comment on above: Order Comment: Speci men Type: BLOOD SPECIMENOrdering Facility: [facility] Address: [address] [place] [address] Performed By: #### 5 7021-8 ####[facility] ERWNCLIA [id number] [place] [address] [place] Erythrocyte distribution width (RBC) [Ratio] 11.1 % Low 11.5-15.0 [facility] Comment on above: Order Comment: Speci men Type: BLOOD SPECIMENOrdering Facility: [facility] Address: [address] [place] [address] Performed By: #### 5 7021-8 ####[facility] MILLTOWNCLIA [id number] [place] [address] [place] Hematocrit (Bld) [Volume fraction] 38.3 % Normal 36.0-46.0 [facility] Comment on above: Order Comment: Speci men Type: BLOOD SPECIMENOrdering Facility: [facility] Address: [address] [place] [address] Performed By: #### 5 7021-8 ####[facility] MILLTOWNCLIA [id number] [place] [address] [place] Hemoglobin (Bld) [Mass/Vol] 13.3 g/dL Normal 11.5-15.5 [facility] Comment on above: Order Comment: Speci men Type: BLOOD SPECIMENOrdering Facility: [facility] Address: [address] [place] [address] Performed By: #### 5 7021-8 ####[facility] [id number] [place] [address] [place] Immature granulocytes (Bld) [#/Vol] 10*3/uL Normal <0.10 [facility] Comment on above: Order Comment: Speci men Type: BLOOD SPECIMENOrdering Facility: [facility] Address: [address] [place] [address] Performed By: #### 5 7021-8 ####[facility] [id number] [place] [address] [place] Immature granulocytes/100 WBC (Bld) 0.6 % Normal [facility] Comment on above: Order Comment: Speci men Type: BLOOD SPECIMENOrdering Facility: [facility] Address: [address] [place] [address] Performed By: #### 5 7021-8 ####[facility]ITALA [id number] [place] [address] [place] Lymphocytes (Bld) [#/Vol] 1.28 10*3/uL Normal 1.00-4.00 [facility] Comment on above: Order Comment: Speci men Type: BLOOD SPECIMENOrdering Facility: [facility] Address: [address] [place] [address] Performed By: #### 5 7021-8 ####[facility] HOSPITALLIA [id number] [place] [address] [place] Lymphocytes/100 WBC (Bld) 36.0 % Normal [facility] Comment on above: Order Comment: Speci men Type: BLOOD SPECIMENOrdering Facility: [facility] Address: [address] [place] [address] Performed By: #### 5 7021-8 ####[facility] HOSPITALNCSANCHEZ [id number] [address] [place] MCH (RBC) [Entitic mass] 32.9 pg Normal 26.0-34.0 [facility] Comment on above: Order Comment: Speci men Type: BLOOD SPECIMENOrdering Facility: [facility] Address: [address] [place] [address] Performed By: #### 5 7021-8 ####[facility] HOSPITALNCLI [id number] [address] [place] MCHC (RBC) [Mass/Vol] 34.7 g/dL Normal 30.5-36.0 [facility] Comment on above: Order Comment: Speci men Type: BLOOD SPECIMENOrdering Facility: [facility] Address: [address] [place] [address] Performed By: #### 5 7021-8 ####[facility] HOSPITALNCLIA [id number] [address] [place] MCV (RBC) [Entitic vol] 94.8 fL Normal 80.0-100.0 [facility] Comment on above: Order Comment: Speci men Type: BLOOD SPECIMENOrdering Facility: [facility] Address: [address] [place], [place] [address] Performed By: #### 5 7021-8 ####[facility] HOSPITALNCA [id number] [address] [place] Monocytes (Bld) [#/Vol] 0.17 10*3/uL Normal <0.87 [facility] Comment on above: Order Comment: Speci men Type: BLOOD SPECIMENOrdering Facility: [facility] Address: [address] [place] [address] Performed By: #### 5 7021-8 ####[facility] MILLWNCLIA [id number] [place] [address] [place] Monocytes/100 WBC (Bld) 4.8 % Normal [facility] Comment on above: Order Comment: Speci men Type: BLOOD SPECIMENOrdering Facility: [facility] Address: [address] [place] [address] Performed By: #### 5 7021-8 ####[facility] HOSPITALLIA [id number] [place] [address] [place] Neutrophils (Bld) [#/Vol] 1.91 10*3/uL Normal 1.45-7.50 [facility] Comment on above: Order Comment: Speci men Type: BLOOD SPECIMENOrdering Facility: [facility] Address: [address] [place] [address] Performed By: #### 5 7021-8 ####[facility] HOSPITALLIA [id number] [place] [address] [place] Neutrophils/100 WBC (Bld) 53.6 % Normal [facility] Comment on above: Order Comment: Speci men Type: BLOOD SPECIMENOrdering Facility: [facility] Address: [address] [place] [address] Performed By: #### 5 7021-8 ####[facility] HOSPITALNCLIA [id number] [place] [address] [place] Nucleated RBC (Bld) [#/Vol] 10*3/uL Normal <0.01 [facility] Comment on above: Order Comment: Speci men Type: BLOOD SPECIMENOrdering Facility: [facility] Address: [address] [place] [address] Performed By: #### 5 7021-8 ####[facility] HOSPITALLIA [id number] [place] [address] [place] Nucleated RBC/100 WBC (Bld) [Ratio] 0.0 /100 WBC Normal [facility] Comment on above: Order Comment: Speci men Type: BLOOD SPECIMENOrdering Facility: [facility] Address: [address] [place] [address] Performed By: #### 5 7021-8 ####[facility] IVONNEJuaquinHAYDEN [id number] [place] [address] [place] Platelet mean volume (Bld) [Entitic vol] 9.7 fL Normal 9.0-12.7 [facility] Comment on above: Order Comment: Speci men Type: BLOOD SPECIMENOrdering Facility: [facility] Address: [address] [place] [address] Performed By: #### 5 7021-8 ####[facility] HOSPITALKENISHATrae [id number] [place] [address] [place] Platelets (Bld) [#/Vol] 200 10*3/uL Normal 150-400 [facility] Comment on above: Order Comment: Speci men Type: BLOOD SPECIMENOrdering Facility: [facility] Address: [address] [place] [address] Performed By: #### 5 7021-8 ####[facility] HOSPITALHAYDEN [id number] [place] [address] [place] RBC (Bld) [#/Vol] 4.04 10*6/uL Normal 3.90-5.20 [facility] Comment on above: Order Comment: Speci men Type: BLOOD SPECIMENOrdering Facility: [facility] Address: [address] [place] [address] Performed By: #### 5 7021-8 ####HIALEAH HOSPITALNCLITrae [id number] [place] [address] [place] WBC (Bld) [#/Vol] 3.56 10*3/uL Low 3.70-11.00 [facility] Comment on above: Order Comment: Speci men Type: BLOOD SPECIMENOrdering Facility: [facility] Address: [address] [address] Performed By: #### 5 7021-8 ####[facility] ROSY [facility] [id number] [place] [id number] [place] CNPNon 01-21-2025 CNPN Normal [facility] CNPNon 01-19-2025 CNPN Normal [facility] CBC W Auto Differential pane l (Bld)on 01-18-2025 Basophils (Bld) [#/Vol] 0.06 10*3/uL [facility] Basophils/100 WBC (Bld) 1.1 % [facility] Differential cell count method Nom (Bld) Auto [facility] Eosinophils (Bld) [#/Vol] 0.22 10*3/uL [facility] Eosinophils/100 WBC (Bld) 3.9 % [facility] Erythrocyte distribution width (RBC) [Ratio] 11.5 % 11.5 - 15.0 % [facility] Hematocrit (Bld) [Volume fraction] 42.5 % 36.0 - 46.0 % [facility] Hemoglobin (Bld) [Mass/Vol] 14.9 g/dL 11.5 - 15.5 g/dL [facility] Immature granulocytes (Bld) [#/Vol] [facility] Immature granulocytes/100 WBC (Bld) 0.4 % [facility] Lymphocytes (Bld) [#/Vol] 1.95 10*3/uL [facility] Lymphocytes/100 WBC (Bld) 34.6 % [facility] MCH (RBC) [Entitic mass] 33.3 pg 26.0 - 34.0 pg [facility] MCHC (RBC) [Mass/Vol] 35.1 g/dL 30.5 - 36.0 g/dL [facility] MCV (RBC) [Entitic vol] 94.9 fL 80.0 - 100.0 fL [facility] Monocytes (Bld) [#/Vol] 0.47 10*3/uL [facility] Monocytes/100 WBC (Bld) 8.3 % [facility] Neutrophils (Bld) [#/Vol] 2.91 10*3/uL [facility] Neutrophils/100 WBC (Bld) 51.7 % [facility] Nucleated RBC (Bld) [#/Vol] NINF [facility] Nucleated RBC/100 WBC (Bld) [Ratio] 0 % /100 WBC [facility] Platelet mean volume (Bld) [Entitic vol] 9.3 fL 9.0 - 12.7 fL [facility] Platelets (Bld) [#/Vol] 212 10*3/uL [facility] RBC (Bld) [#/Vol] 4.48 10*6/uL 3.90 - 5.2 0 m/uL [facility] WBC (Bld) [#/Vol] 5.63 10*3/uL [facility] Basophils (Bld) [#/Vol] 0.06 10*3/uL Normal <0.11 [facility] Comment on above: Order Comment: Speci men Type: BLOOD SPECIMENOrdering Facility: [facility] Address: [address] [place] [address] Performed By: #### 5 7021-8 ####[facility]ITALA [id number] [place] [address] [place] Basophils/100 WBC (Bld) 1.1 % Normal [facility] Comment on above: Order Comment: Speci men Type: BLOOD SPECIMENOrdering Facility: [facility] Address: [address] [place] [address] Performed By: #### 5 7021-8 ####[facility] HOSPITALLIA [id number] [place] [address] [place] Differential cell count method Nom (Bld) Auto Normal [facility] Comment on above: Order Comment: Speci men Type: BLOOD SPECIMENOrdering Facility: [facility] Address: [address] [place] [address] Performed By: #### 5 7021-8 ####[facility] HOSPITALLIA [id number] [place] [address] [place] Eosinophils (Bld) [#/Vol] 0.22 10*3/uL Normal <0.46 [facility] Comment on above: Order Comment: Speci men Type: BLOOD SPECIMENOrdering Facility: [facility] Address: [address] [place] [address] Performed By: #### 5 7021-8 ####[facility] ERWILLIA [id number] [place] [address] [place] Eosinophils/100 WBC (Bld) 3.9 % Normal [facility] Comment on above: Order Comment: Speci men Type: BLOOD SPECIMENOrdering Facility: [facility] Address: [address] [place] [address] Performed By: #### 5 7021-8 ####[facility]ITALNCP[facility] [id number] [place] [address] [place] Erythrocyte distribution width (RBC) [Ratio] 11.5 % Normal 11.5-15.0 [facility] Comment on above: Order Comment: Speci men Type: BLOOD SPECIMENOrdering Facility: [facility] Address: [address] [place] [address] Performed By: #### 5 7021-8 ####[facility] HOSPITALNCLIA [id number] [place] [address] [place] Hematocrit (Bld) [Volume fraction] 42.5 % Normal 36.0-46.0 [facility] Comment on above: Order Comment: Speci men Type: BLOOD SPECIMENOrdering Facility: [facility] Address: [address] [place] [address] Performed By: #### 5 7021-8 ####[facility] HOSPITALNCLIA [id number] [place] [address] [place] Hemoglobin (Bld) [Mass/Vol] 14.9 g/dL Normal 11.5-15.5 [facility] Comment on above: Order Comment: Speci men Type: BLOOD SPECIMENOrdering Facility: [facility] Address: [address] [place] [address] Performed By: #### 5 7021-8 ####[facility] MONICANCSANCHEZA [id number] [place] [address] [place] Immature granulocytes (Bld) [#/Vol] 10*3/uL Normal <0.10 [facility] Comment on above: Order Comment: Speci men Type: BLOOD SPECIMENOrdering Facility: [facility] Address: [address] [place] [address] Performed By: #### 5 7021-8 ####[facility]IALE[facility] HOSPITALJACOBA [id number] [place] [address] [place] Immature granulocytes/100 WBC (Bld) 0.4 % Normal [facility] Comment on above: Order Comment: Speci men Type: BLOOD SPECIMENOrdering Facility: [facility] Address: [address] [place] [address] Performed By: #### 5 7021-8 ####[facility]ITALA [id number] [place] [address] [place] Lymphocytes (Bld) [#/Vol] 1.95 10*3/uL Normal 1.00-4.00 [facility] Comment on above: Order Comment: Speci men Type: BLOOD SPECIMENOrdering Facility: [facility] Address: [address] [place] [address] Performed By: #### 5 7021-8 ####[facility] HOSPITALNCLIA [id number] [place] [address] [place] Lymphocytes/100 WBC (Bld) 34.6 % Normal [facility] Comment on above: Order Comment: Speci men Type: BLOOD SPECIMENOrdering Facility: [facility] Address: [address] [place] [address] Performed By: #### 5 7021-8 ####[facility] MILLWNCLIA [id number] [place] [address] [place] MCH (RBC) [Entitic mass] 33.3 pg Normal 26.0-34.0 [facility] Comment on above: Order Comment: Speci men Type: BLOOD SPECIMENOrdering Facility: [facility] Address: [address] [place] [address] Performed By: #### 5 7021-8 ####[facility] HOSPITALLIA [id number] [place] [address] [place] MCHC (RBC) [Mass/Vol] 35.1 g/dL Normal 30.5-36.0 [facility] Comment on above: Order Comment: Speci men Type: BLOOD SPECIMENOrdering Facility: [facility] Address: [address] [place] [address] Performed By: #### 5 7021-8 ####[facility] [id number] [place] [address] [place] MCV (RBC) [Entitic vol] 94.9 fL Normal 80.0-100.0 [facility] Comment on above: Order Comment: Speci men Type: BLOOD SPECIMENOrdering Facility: [facility] Address: [address] [place] [address] Performed By: #### 5 7021-8 ####[facility] HOSPITALNCLIA [id number] [place] [address] [place] Monocytes (Bld) [#/Vol] 0.47 10*3/uL Normal <0.87 [facility] Comment on above: Order Comment: Speci men Type: BLOOD SPECIMENOrdering Facility: [facility] Address: [address] [place] [address] Performed By: #### 5 7021-8 ####[facility] [id number] [place] [address] [place] Monocytes/100 WBC (Bld) 8.3 % Normal [facility] Comment on above: Order Comment: Speci men Type: BLOOD SPECIMENOrdering Facility: [facility] Address: [address] [place] [address] Performed By: #### 5 7021-8 ####[facility] HOSPITALNCA [id number] [place] [address] [place] Neutrophils (Bld) [#/Vol] 2.91 10*3/uL Normal 1.45-7.50 [facility] Comment on above: Order Comment: Speci men Type: BLOOD SPECIMENOrdering Facility: [facility] Address: [address] [place] [address] Performed By: #### 5 7021-8 ####[facility]NCP[facility] [id number] [place] [address] [place] Neutrophils/100 WBC (Bld) 51.7 % Normal [facility] Comment on above: Order Comment: Speci men Type: BLOOD SPECIMENOrdering Facility: [facility] Address: [address] [place] [address] Performed By: #### 5 7021-8 ####[facility] HOSPITALNCLIA [id number] [place] [address] [place] Nucleated RBC (Bld) [#/Vol] 10*3/uL Normal <0.01 [facility] Comment on above: Order Comment: Speci men Type: BLOOD SPECIMENOrdering Facility: [facility] Address: [address] [place] [address] Performed By: #### 5 7021-8 ####[facility] HOSPITALNCLIA [id number] [place] [address] [place] Nucleated RBC/100 WBC (Bld) [Ratio] 0.0 /100 WBC Normal [facility] Comment on above: Order Comment: Speci men Type: BLOOD SPECIMENOrdering Facility: [facility] Address: [address] [place] [address] Performed By: #### 5 7021-8 ####[facility] MONICANCSUZY [id number] [place] [address] [place] Platelet mean volume (Bld) [Entitic vol] 9.3 fL Normal 9.0-12.7 [facility] Comment on above: Order Comment: Speci men Type: BLOOD SPECIMENOrdering Facility: [facility] Address: [address] [place] [address] Performed By: #### 5 7021-8 ####[facility] HOSPITALHAYDEN [id number] [place] [address] [place] Platelets (Bld) [#/Vol] 212 10*3/uL Normal 150-400 [facility] Comment on above: Order Comment: Speci men Type: BLOOD SPECIMENOrdering Facility: [facility] Address: [address] [place] [address] Performed By: #### 5 7021-8 ####HIALEAH HOSPITALNCSANCHEZA [id number] [place] [address] [place] RBC (Bld) [#/Vol] 4.48 10*6/uL Normal 3.90-5.20 [facility] Comment on above: Order Comment: Speci men Type: BLOOD SPECIMENOrdering Facility: [facility] Address: [address] [place] [address] Performed By: #### 5 7021-8 ####[facility] HOSPITALNCLIA [id number] [place] [address] [place] WBC (Bld) [#/Vol] 5.63 10*3/uL Normal 3.70-11.00 [facility] Comment on above: Order Comment: Speci men Type: BLOOD SPECIMENOrdering Facility: [facility] Address: [address] [place], [place] [address], [place] [address] Performed By: #### 5 7021-8 ####[facility] ROSY CORONADOONANCOCKHAYDEN [id number] [place] [id number] [place] CORTISOL, SERUMon 01-18-2025 Cortisol [Mass/Vol] 21.7 ug/dL High 4.8 - 19 .5 ug/dL [facility] Comment on above: Provided reference laura foster is from 6-10 AM sample collection time. Cortisol Reference Range: 6-10 AM = 4.8-19.5 ug/dL, 4-8 PM = 2.5-11.9 ug/dL Comprehensive metabolic 2000 panelOrdered By: Meeta Lau on 01-18-2025 Albumin [Mass/Vol] 4.3 g/dL 3.9 - 4.9 g/dL [facility] ALP [Catalytic activity/Vol] 71 U/L 34 - 123 U/L [facility] ALT [Catalytic activity/Vol] 29 U/L 7 - 38 U/L [facility] Anion gap [Moles/Vol] 14 mmol/L 8 - 15 mmol/L [facility] AST [Catalytic activity/Vol] 22 U/L 13 - 35 U/L [facility] Bilirubin [Mass/Vol] 0.6 mg/dL 0.2 - 1 .3 mg/dL [facility] Calcium [Mass/Vol] 9.7 mg/dL 8.5 - 10. 2 mg/dL [facility] Chloride [Moles/Vol] 107 mmol/L 98 - 10 7 mmol/L [facility] CO2 [Moles/Vol] 20 mmol/L Low 22 - 30 mmol/L [facility] Creatinine [Mass/Vol] 0.7 mg/dL 0.58 - 0.96 mg/dL [facility] GFR/1.73 sq M.predicted among non-blacks MDRD (S/P/Bld) [Vol rate/Area] 93 mL/min/{1.73_m2} - PINF [facility] Comment on above: Estimated Glomerular Filtration [...] 121 mg/dL High 74 - 99 mg/dL [facility] Comment on above: The [place] Diab[employer] Association (ADA) provides guidance for [...] Standards of Medical Care in Diabetes 2016, [place] [employer]. Diabetes Care. 2016.39(Suppl 1). Interpretation and review of laboratory results Abnormal [facility] Potassium [Moles/Vol] 3.8 mmol/L 3.7 - 5.1 mmol/L [facility] Protein [Mass/Vol] 6.8 g/dL 6.3 - 8.0 g/dL [facility] Sodium [Moles/Vol] 141 mmol/L 136 - 144 mmol/L [facility] Urea nitrogen [Mass/Vol] 12 mg/dL 7 - 21 mg/dL [facility] Comprehensive metabolic 2000 panelon 01-18-2025 Albumin [Mass/Vol] 4.3 g/dL Normal 3.9-4.9 [facility] Comment on above: Order Comment: Speci men Type: BLOOD SPECIMENOrdering Facility: [facility] Address: [address] [place] [address] Performed By: #### 1 9123-9, 02890-0 ####[facility] [id number] [place] [address] [place] ALP [Catalytic activity/Vol] 71 U/L Normal 34-123 [facility] Comment on above: Order Comment: Speci men Type: BLOOD SPECIMENOrdering Facility: [facility] Address: [address] [place] [place] [address] Performed By: #### 1 9123-9, 04657-9 ####[facility] ROSY MILLTOWNCLIA [id number] [place] [address] [place] ALT [Catalytic activity/Vol] 29 U/L Normal 7-38 [facility] Comment on above: Order Comment: Speci men Type: BLOOD SPECIMENOrdering Facility: [facility] Address: [address] [place] [address] Performed By: #### 1 9123-9, 49525-6 ####[facility] MILLTOWNCLIA [id number] [place] [address] [place] Anion gap [Moles/Vol] 14 mmol/L Normal 8-15 [facility] Comment on above: Order Comment: Speci men Type: BLOOD SPECIMENOrdering Facility: [facility] Address: [address] [place] [address] Performed By: #### 1 9123-9, ####[facility] HOSPITALNCLIA [id number] [place] [address] [place] AST [Catalytic activity/Vol] 22 U/L Normal 13-35 [facility] Comment on above: Order Comment: Speci men Type: BLOOD SPECIMENOrdering Facility: [facility] Address: [address] [place] [address] Performed By: #### 1 9123-9, ####[facility] MILLTOWNCLIA [id number] [place] [address] [place] Bilirubin [Mass/Vol] 0.6 mg/dL Normal 0.2-1.3 [facility] Comment on above: Order Comment: Speci men Type: BLOOD SPECIMENOrdering Facility: [facility] Address: [address] [place] [address] Performed By: #### 1 9123-9, 69169-8 ####[facility] MILLTOWNCLIA [id number] [place] [address] [place] Calcium [Mass/Vol] 9.7 mg/dL Normal 8.5-10.2 [facility] Comment on above: Order Comment: Speci men Type: BLOOD SPECIMENOrdering Facility: [facility] Address: [address] [place] [address] Performed By: #### 1 9123-9, 41679-8 ####[facility] MILLWKENISHALIA [id number] [place] [address] [place] Chloride [Moles/Vol] 107 mmol/L Normal 98-107 [facility] Comment on above: Order Comment: Speci men Type: BLOOD SPECIMENOrdering Facility: [facility] Address: [address] [place] [address] Performed By: #### 1 9123-9, 62900-2 ####[facility] HOSPITALLIA [id number] [place] [address] [place] CO2 [Moles/Vol] 20 mmol/L Low 22-30 [facility] Comment on above: Order Comment: Speci men Type: BLOOD SPECIMENOrdering Facility: [facility] Address: [address] [place] [address] Performed By: #### 1 9123-9, 48689-3 ####[facility]ITAL[facility]CLIA [id number] [place] [address] [place] Creatinine [Mass/Vol] 0.70 mg/dL Normal 0.58-0.96 [facility] Comment on above: Order Comment: Speci men Type: BLOOD SPECIMENOrdering Facility: [facility] Address: [address] [place] [address] Performed By: #### 1 9123-9, 36741-5 ####[facility] MILLWNCLIA [id number] [place] [address] [place] Creatinine and Glomerular filtration rate.predicted panel (S/P/Bld) 93 mL/min/1.73m??? Normal >=60 [facility] Comment on above: Order Comment: Cam silva Type: BLOOD SPECIMENOrdering Facility: [facility] Address: [address] [place] [address] Result Comment: Coco mated Glomerular Filtration Rate [...] actual GFR. Performed By: #### 1 9123-9, 57995-1 ####[facility] [id number] [place] [address] [place] Glucose [Mass/Vol] 121 mg/dL High 74-99 [facility] Comment on above: Order Comment: aCm silva Type: BLOOD SPECIMENOrdering Facility: [facility] Address: [address] [place] [address] Result Comment: The [place] Diabetes Association (ADA) provides guidance for cutoff values for fasting glucose and random glucose. The ADA defines fasting as no caloric intake for at least 8 hours. Fasting plasma glucose results between 100 to 125 mg/dL indicate increased risk for diabetes (prediabetes).Fasting plasma glucose results greater than or equal to 126 mg/dL meet the criteria for diagnosis of diabetes. In the absence of unequivocal hyperglycemia, results should be confirmed by repeat testing. In a patient with classic symptoms of hyperglycemia or hyperglycemic crisis, random plasma glucose results greater than or equal to 200 mg/dL meet the criteria for diagnosis of diabetes.Reference: Standards of Medical Care in Diabetes 2016, [place] [employer] Association. Diabetes Care. 2016.39(Suppl 1). Performed By: #### 1 9123-9, 40385-5 ####[facility] [id number] [place] [address] [place] Potassium [Moles/Vol] 3.8 mmol/L Normal 3.7-5.1 [facility] [place] [facility] Comment on above: Order Comment: Speci men Type: BLOOD SPECIMENOrdering Facility: [facility] Address: [address] [place] [address] Performed By: #### 1 9123-9, 48760-2 ####[facility] [id number] [place] [address] [place] Protein [Mass/Vol] 6.8 g/dL Normal 6.3-8.0 [facility] Comment on above: Order Comment: Speci men Type: BLOOD SPECIMENOrdering Facility: [facility] Address: [address] [place] [address] Performed By: #### 1 9123-9, 28438-7 ####[facility] HOSPITALTrae [id number] [place] [address] [place] Sodium [Moles/Vol] 141 mmol/L Normal 136-144 [facility] Comment on above: Order Comment: Speci men Type: BLOOD SPECIMENOrdering Facility: [facility] Address: [address] [place] [address] Performed By: #### 1 9123-9, 63796-6 ####[facility]ITAL[facility]CL[facility] [id number] [place] [address] [place] Urea nitrogen [Mass/Vol] 12 mg/dL Normal 7-21 [facility] Comment on above: Order Comment: Speci men Type: BLOOD SPECIMENOrdering Facility: [facility] Address: [address] [place] [address] Performed By: #### 1 9123-9, 61888-8 ####[facility] HOSPITALA [id number] [place] [address] [place] Cortis SerPl-mCncon 01-19-20 25 Cortisol [Mass/Vol] 21.7 ug/dL High 4.8-19.5 [facility] Comment on above: Order Comment: Speci men Type: BLOOD SPECIMENOrdering Facility: [facility] Address: [address] [id number] Result Comment: Prov ided reference range is from 6-10 AM sample collection time.Cortisol Reference Range: 6-10 AM = 4.8-19.5 ug/dL, 4-8 PM = 2.5-11.9 ug/dL Performed By: #### 3 024-7, 2143-6, 3016-3 ####[facility] LABCLIA [id number] [place] [id number] [place] Cortisol [Mass/Vol]on 2024 Interpretation and review of laboratory results Abnormal [facility] MAGNESIUMon 01-18-2025 Magnesium [Mass/Vol] 2.2 mg/dL 1.7 - 2 .3 mg/dL [facility] Magnesium SerPl-ncon 01-18 Magnesium [Mass/Vol] 2.2 mg/dL Normal 1.7-2.3 [facility] Comment on above: Order Comment: Speci men Type: BLOOD SPECIMENOrdering Facility: [facility] Address: [address] [place] [address] Performed By: #### 1 9123-9, 44053-3 ####[facility] [id number] [place] [id number] [place] Magnesium [Mass/Vol]on 01-18 Interpretation and review of laboratory results Normal [facility] No Panel Informationon 01-18 Interpretation and review of laboratory results Normal [facility] No Panel InformationOrdered By: Meeta Lau on 01-18-2025 [facility] T4 FREE/FREE THYROXINEon Free T4 [Mass/Vol] 1 ng/dL 0.9 - 1.7 ng/dL [facility] T4 Free SerPl-mCncon 025 Free T4 [Mass/Vol] 1.0 ng/dL Normal 0.9-1.7 [facility] Comment on above: Order Comment: Speci men Type: BLOOD SPECIMENOrdering Facility: [facility] Address: [address] [place], [place] [address] Performed By: #### 3 024-7, 2143-01, 3 ####[facility] LABCLIA [id number] [place] [id number] [place] THYROID STIMULATING HORMONEo n 01-18-2025 TSH Qn 3.58 m[IU]/L [facility] TSH SerPl-aCncon 01-18-2025 TSH Qn 3.580 m[IU]/L Normal 0.270-4.200 [facility] Comment on above: Order Comment: Speci men Type: BLOOD SPECIMENOrdering Facility: [facility] Address: [address] [place] [address] Performed By: #### 3 024-7, 2143-01, 3015-10 ####[facility] LABCLIA [id number] [place] [id number] [place] CNPNon 01-17-2025 CNPN Normal [facility] CNPNon 01-14-2025 CNPN Normal [facility] US FEMALE PELVIS TRANSVAGon 01-14-2025 US FEMALE PELVIS TRANSVAG Invalid Interpretation Code [facility] CNPNon 01-13-2025 CNPN Normal [facility] BRIEF OP NOTon 01-10-2025 BRIEF OP NOT HNO ID: [id number] Author: NIDIA WATERMAN MD Service: Interventional Radiology Author Type: Physician Type: Brief Op Note Filed: 01/10/2025 10:39 Note Text: BRIEF OPERATIVE / PROCEDURE NOTE LOG ID: [id number] SURGERY/PROCEDURE DATE: 01/10/2025 INCISION/PROCEDURE START TIME: 10:16 AM INCISION CLOSE/PROCEDURE END TIME: 10:33 AM SURGEON(S)/PROCEDURALIST( S) AND PRACTICE OFFICE ASSOCIATE(S): Surgeons and Role: * Nidia Waterman MD [...] DATE: January 10, 2025 TIME: 10:38 AM [facility] HISTORY PHYSICALon HISTORY PHYSICAL HNO ID: [id number] Author: NIDIA WATERMAN MD Service: Interventional Radiology [...] Date BX OF BREAST; INCISIONAL Left 11/2024 [id number]. hx of eye surgery Prior to Admission medications as of 01/10/25 0947 Medication Sig Last Dose Taking lisinopril (ZESTRIL) 5 mg tablet Take 2.5 mg by mouth once daily. omeprazole (PRILOSEC) 40 mg capsule Take 40 mg by mouth once daily. ALLERGIES Allergen Reactions Xffihej-Nif-Ceo Red* Myalgia Objective PHYSICAL EXAM: The remainder [...] hospital problems. * Medication and Non-Pharmacologic VTE Prophylaxis/Anticoagulant s VTE Prophylaxis: VTE prophylaxis appropriate Provisional Diagnosis/Treatment Plan: Left breast cancer, for venous chest port placement. Sedation Goal: Moderate SIGNATURE: Nidia Waterman MD PATIENT NAME: Liz Robles DATE: January 10, 2025 TIME: 10:02 AM [facility] IR PORTOCATH PLACEMENTon IR PORTOCATH PLACEMENT * * *Final Report* * * DATE OF EXAM: Jan 10 2025 10:33AM [facility] 0792 - IR PORTOCATH PLACEMENT / PROCEDURE [...] MD I att (more content not included)... Normal [facility] US AXILLA ONLY LTon 12-11 [facility] US AXILLA ONLY LT Normal [facility] Axilla - lefton IMPRESSION: Normal study. Negative for axillary adenopathy. Therefore, the scheduled axillary lymph node biopsy was not performed. Clinical follow up is recommended. The findings were discussed with the patient. BI-RADS Category 2: Benign Interpreting Radiologist: Jerome Rider M.D. Electronically signed on: 01/07/2025 Catheter Finisher And Inspector: ZEHRA Transcrimary Date/Time: Jan 07 2025 8:04A Dictated by : JEROME RIDER MD This examination was interpreted and the report reviewed and electronically signed by: JEROME RIDER MD on Jan 07 2025 8:20AM [facility] * * *Final Report* * * DATE OF EXAM: Jan 07 2025 8:04AM [facility] 0591 - [facility] US AXILLA ONLY LT / PROCEDURE REASON: multiple diagnoses * * * * Physician Interpretation * * * * [place] [address] #[id number] - [facility] US AXILLA ONLY LT HISTORY: 69 year-old [...] architecture is identified. DIVISION OF RADIOLOGY Provider, [facility] - 01/07/2025 * * *Final Report* * * DATE OF EXAM: Jan 07 2025 8:04AM W 0591 - [facility] US AXILLA ONLY LT / PROCEDURE REASON: multiple diagnoses * * * * Physician Interpretation * * * * [facility] [address] [facility] [address] [place] [address] #[id number] - [facility] US AXILLA ONLY LT HISTORY: 69 year-old [...] Jerome Rider M.D. Electronically signed on: 01/07/2025 Catheter Finisher And Inspector: ZEHAR Transcribe Date/Time: Jan 07 2025 8:04A Dictated by : JEROME RIDER MD This examination was interpreted and the report reviewed and electronically signed by: JEROME RIDER MD on Jan 07 2025 8:20AM EST [facility] Radiology Study observation (narrative) [facility] US Axilla - leftOrdered By: Ccf Provider on 01-07-2025 [facility] CNOVon 01-06-2025 CNOV Normal [facility] MRI LIVER WO/W IVCONon 01-06 MRI LIVER WO/W IVCON [facility] CBC panel Auto (Bld)on 01-05 Erythrocyte distribution width (RBC) [Ratio] 11.6 % 11.5 - 15.0 % [facility] Hematocrit (Bld) [Volume fraction] 44.3 % 36.0 - 46.0 % [facility] Hemoglobin (Bld) [Mass/Vol] 15.2 g/dL 11.5 - 15.5 g/dL [facility] Interpretation and review of laboratory results Normal [facility] MCH (RBC) [Entitic mass] 32.9 pg 26.0 - 34.0 pg [facility] MCHC (RBC) [Mass/Vol] 34.3 g/dL 30.5 - 36.0 g/dL [facility] MCV (RBC) [Entitic vol] 95.9 fL 80.0 - 100.0 fL [facility] Nucleated RBC (Bld) [#/Vol] NINF [facility] Platelet mean volume (Bld) [Entitic vol] 9.2 fL 9.0 - 12.7 fL [facility] Platelets (Bld) [#/Vol] 260 10*3/uL [facility] RBC (Bld) [#/Vol] 4.62 10*6/uL 3.90 - 5.2 0 m/uL [facility] WBC (Bld) [#/Vol] 6.9 10*3/uL [facility] Erythrocyte distribution width (RBC) [Ratio] 11.6 % Normal 11.5-15.0 [facility] Comment on above: Order Comment: Speci men Type: BLOOD SPECIMENOrdering Facility: [facility] Address: [address] [place] [address] Performed By: #### 5 8410-2 ####[facility] [id number] [address] STATES OF [facility] Hematocrit (Bld) [Volume fraction] 44.3 % Normal 36.0-46.0 [facility] Comment on above: Order Comment: Speci men Type: BLOOD SPECIMENOrdering Facility: [facility] Address: [address] [place] [address] Performed By: #### 5 8410-2 ####[facility] [id number] [place] [address] [place] Hemoglobin (Bld) [Mass/Vol] 15.2 g/dL Normal 11.5-15.5 [facility] Comment on above: Order Comment: Speci men Type: BLOOD SPECIMENOrdering Facility: [facility] Address: [address] [place] [address] Performed By: #### 5 8410-2 ####[facility] ERJuaquinNCSANCHEZA [id number] [place] [address] [place] MCH (RBC) [Entitic mass] 32.9 pg Normal 26.0-34.0 [facility] Comment on above: Order Comment: Speci men Type: BLOOD SPECIMENOrdering Facility: [facility] Address: [address] [place] [address] Performed By: #### 5 8410-2 ####[facility] [id number] [place] [address] [place] MCHC (RBC) [Mass/Vol] 34.3 g/dL Normal 30.5-36.0 [facility] [place] [facility] Comment on above: Order Comment: Speci men Type: BLOOD SPECIMENOrdering Facility: [facility] Address: [address] [place] [address] Performed By: #### 5 8410-2 ####[facility] [id number] [place] [address] [place] MCV (RBC) [Entitic vol] 95.9 fL Normal 80.0-100.0 [facility] Comment on above: Order Comment: Speci men Type: BLOOD SPECIMENOrdering Facility: [facility] Address: [address] [place] [address] Performed By: #### 5 8410-2 ####[facility] HOSPITALKENISHATrae [id number] [place] [address] [place] Nucleated RBC (Bld) [#/Vol] 10*3/uL Normal <0.01 [facility] Comment on above: Order Comment: Speci men Type: BLOOD SPECIMENOrdering Facility: [facility] Address: [address] [place] [address] Performed By: #### 5 8410-2 ####[facility]ITALNCLIA [id number] [place] [address] [place] Platelet mean volume (Bld) [Entitic vol] 9.2 fL Normal 9.0-12.7 [facility] Comment on above: Order Comment: Speci men Type: BLOOD SPECIMENOrdering Facility: [facility] Address: [address] [place] [address] Performed By: #### 5 8410-2 ####[facility] IVONNEONANCOCKNCSANCHEZA [id number] [place] [address] [place] Platelets (Bld) [#/Vol] 260 10*3/uL Normal 150-400 [facility] Comment on above: Order Comment: Speci men Type: BLOOD SPECIMENOrdering Facility: [facility] Address: [address] [place] [address] Performed By: #### 5 8410-2 ####[facility]ITALNCLIA [id number] [place] [address] [place] RBC (Bld) [#/Vol] 4.62 10*6/uL Normal 3.90-5.20 [facility] Comment on above: Order Comment: Speci men Type: BLOOD SPECIMENOrdering Facility: [facility] Address: [address] [place] [address] Performed By: #### 5 8410-2 ####[facility]ITALNCL[facility] [id number] [place] [address] [place] WBC (Bld) [#/Vol] 6.90 10*3/uL Normal 3.70-11.00 [facility] Comment on above: Order Comment: Speci men Type: BLOOD SPECIMENOrdering Facility: [facility] Address: [address] [place] [address] Performed By: #### 5 8410-2 ####[facility]ITALNCL[facility] [id number] [place] [address] [place] CNPNon 01-05-2025 CNPN Telephone ([facility] ----- LIZ ROBLES ([id number]) 1955 F Date Time Provider Department 01/05/25 MELIA DEVI During your visit today, we recorded the following information about you: Allergies As of Date: 01/05/2025 Noted Allergy Reaction [id number] REDUCTASE INHIBIT*12/13/2024 17 - Myalgia Date Reviewed: [...] Encounter Status:Closed by MELIA DEVI on 01/05/[address] [facility] PT panel Coag (PPP)Ordered B y: Meeta Lau on 01-05-2025 INR Coag (PPP) [Relative time] 1 {INR} 0.9 - 1.3 [facility] Comment on above: Vitamin K Antagonist (VKA) Therapeutic Range: INR 2 to 3 (Target INR of 2.5) Note: For patients treated with VKA drugs, such as warfarin, the [place] [employer] 2012 Guideline recommends [...] 2.5 to 3.5 (target INR of 3). khari Barrios. Chest 2012, 141:7S-47S Aileen LEVI et al. [facility] 2017, 70: 252-289 Interpretation and review of laboratory results Normal [facility] PT Coag (PPP) [Time] 10.4 [facility] Coag (PPP)on 2024 INR Coag (PPP) [Relative time] 1.0 {INR} Normal 0.9-1.3 [facility] Comment on above: Order Comment: Speci men Type: BLOOD SPECIMENOrdering Facility: [facility] Address: [facility] [place] [address] Result Comment: Genna min K Antagonist (VKA) Therapeutic Range: INR 2 to 3 (Target INR of 2.5)Note: For patients treated with VKA drugs, such as warfarin, the [place] [employer] 2012 Guideline recommends a therapeutic INR range of 2 to 3 (target INR of 2.5). This recommendation includes high-risk patients with antiphospholipid syndrome with previous arterial or venous thromboembolism, current-generation mechanical or bioprosthetic aortic heart valve replacement.Note: Patients with mechanical aortic valve replacement and additional risk factors for thromboembolic events (atrial fibrillation, previous thromboembolism, LV dysfunction, hypercoagulable conditions) or an older generation mechanical AVR (i.e., ball in-Cage) or any mechanical MVR should have a INR therapeutic range of 2.5 to 3.5 (target INR of 3).khari Barrios. Chest 2012, 141:7S-47SAileen LEVI et al. [facility] 2017, 70: 252-289 Performed By: #### 3 4528-0 ####[facility] [id number] [place] [address] [place] PT Coag (PPP) [Time] 10.4 s Normal <13.1 [facility] Comment on above: Order Comment: Speci men Type: BLOOD SPECIMENOrdering Facility: [facility] Address: [address] [place] [address] Performed By: #### 3 4528-0 ####[facility] [id number] [place] [address] [place] CNOVSPon 01-04-2025 CNOVSP Normal [facility] CNPNon 01-04-2025 CNPN Normal [facility] HBV core Ab Ser Qlon 025 HBV core Ab Ql (S) Negative Normal Negative [facility] Comment on above: Order Comment: Speci [facility] Type: BLOOD SPECIMENOrdering Facility: [facility] Address: [address] [place] [address] Result Comment: No e vidence of current or past infection with Hepatitis B virus. Should recent infection be suspected, repeat testing may be considered 3-4 weeks after this draw. Performed By: #### 5 195-3, 12210-1, 30361-5 ####[facility] LABCLIA [id number] [place] [address] [place] HBV surface Ab Ql (S)on 12-10 HBV surface Ab Qn (S) <8.00 Normal [facility] [place] [facility] Comment on above: Order Comment: Speci [facility] Type: BLOOD SPECIMENOrdering Facility: [facility] Address: [address] [place] [address] Result Comment: <8 m IU/mL: No serological evidence of immunity to Hepatitis B Virus.>/= 8 to <12 mIU/mL: No serological evidence of immunity to Hepatitis B Virus.>/= 12 mIU/mL: Consistent with serological evidence of immunity to Hepatitis B Virus. Performed By: #### 5 195-3, 77281-6, 82280-1 ####[facility] LABIA [id number] [place] [id number] [facility] OF [facility] HBV surface Ab Ser Qlon 12-10 HBV surface Ab Ql (S) Negative Normal [facility] [place] [facility] Comment on above: Order Comment: Speci men Type: BLOOD SPECIMENOrdering Facility: [facility] Address: [address] [place] [address] Result Comment: No s erological evidence of immunity to Hepatitis B Virus. Performed By: #### 5 195-3, 45583-8, 95788-4 ####[facility] [id number] [address] HBV surface Ag Ser Qlon 12-10 HBV surface Ag Ql (S) Negative Normal Negative [facility] Comment on above: Order Comment: Speci men Type: BLOOD SPECIMENOrdering Facility: [facility] Address: [address] [place] [address] Performed By: #### 5 195-3, 06493-8, 98230-4 ####[facility] [id number] [address] HCV Ab Ser Qlon 01-04-2025 HCV Ab Ql (S) Negative Normal Negative [facility] Comment on above: Order Comment: Speci men Type: BLOOD SPECIMENOrdering Facility: [facility] Address: [address] [place] [address] Result Comment: The result suggests no evidence of infection with Hepatitis C virus. Should recent infection be suspected, repeat testing may be considered 4-6 weeks after this draw. Performed By: #### 1 6128-1 ####[facility] LABIA [id number] [address] STATES OF [facility] MRI BREAST 3D POST PROCESSIN Harley 01-04-2025 MRI BREAST 3D POST PROCESSING * * *Final Report* * * DATE OF EXAM: Jan 04 2025 10:24AM [facility] 0788 - MRI BREAST 3D POST PROCESSING / PROCEDURE REASON: multiple diagnoses * * * * Physician Interpretation * * * * [place] [address] #[id number] - MRI BREAST WO/W YOLANDA CASEY #[id number] - MRI BREAST 3D POST PROCESSING HISTORY: [...] completed on an independent workstation. An additional 2-cqkdge-xptv resolution sequence was performed after the first [...] Kelsey Rose M.D. Electronically signed on: 01/05/2025 Catheter Finisher And Inspector: ZEHRA Transcribe Date/Time: Jan 04 2025 10:08A Dictated by : KELSEY ROSE MD This examination was interpreted and the report reviewed and electronically signed by: KELSEY ROSE MD on Jan 05 2025 7:30AM EST [id number] [facility] MRI BREAST WO/W IVCON BILon 01-04-2025 MRI BREAST WO/W IVCON JACINTO * * *Final Report* * * DATE OF EXAM: Jan 04 2025 10:23AM [facility] 0773 - MRI BREAST WO/W IVCON JACINTO / PROCEDURE REASON: multiple diagnoses * * * * Physician Interpretation * * * * [place] [id number] #[id number] - MRI BREAST WO/W YOLANDA CASEY #[id number] - MRI BREAST 3D POST PROCESSING HISTORY: [...] completed on an independent workstation. An additional 8-icsqga-rglw resolution sequence was performed after the first two 1 minute post-contrast sequences. Complex volumetric analysis requiring post processing was performed using a semi-automated software BidRazoracad, on an independent workstation by the physician, [...] Kelsey Rose M.D. Electronically signed on: 01/05/2025 Catheter Finisher And Inspector: ZEHRA Transcribe Date/Time: Jan 04 2025 10:08A Dictated by : KELSEY ROSE MD This examination was interpreted and the report reviewed and electronically signed by: KELSEY ROSE MD on Jan 05 2025 7:30AM EST [id number] Normal [facility] CNPNon 12-27-2024 CNPN Normal [facility] CNPNon 12-21-2024 CNPN Normal [facility] CT ABD/PEL W IVCONon 025 CT ABD/PEL W IVCON Invalid Interpretation Code [facility] CT CHEST WO IVCONon 12-15-[address] CHEST WO IVCON Invalid Interpretation Code [facility] CNOVon 12-13-2024 CNOV Normal [facility] CNPNon 12-13-2024 CNPN Normal [facility] CBC panel Auto (Bld)on 12-08 Erythrocyte distribution width (RBC) [Ratio] 11.4 % Low 11.5 - 15.0 % [facility] Hematocrit (Bld) [Volume fraction] 43.7 % 36.0 - 46.0 % [facility] Hemoglobin (Bld) [Mass/Vol] 15.1 g/dL 11.5 - 15.5 g/dL [facility] Interpretation and review of laboratory results Abnormal [facility] MCH (RBC) [Entitic mass] 33.2 pg 26.0 - 34.0 pg [facility] MCHC (RBC) [Mass/Vol] 34.6 g/dL 30.5 - 36.0 g/dL [facility] MCV (RBC) [Entitic vol] 96 fL 80.0 - 100.0 fL [facility] Nucleated RBC (Bld) [#/Vol] NINF [facility] Platelet mean volume (Bld) [Entitic vol] 9.8 fL 9.0 - 12.7 fL [facility] Platelets (Bld) [#/Vol] 232 10*3/uL [facility] RBC (Bld) [#/Vol] 4.55 10*6/uL 3.90 - 5.2 0 m/uL [facility] WBC (Bld) [#/Vol] 5.42 10*3/uL [facility] Erythrocyte distribution width (RBC) [Ratio] 11.4 % Low 11.5-15.0 [facility] Comment on above: Order Comment: Cam silva Type: BLOOD SPECIMEN [facility] Address: [address] [place] [address] Performed By: #### 5 8410-2 #### [facility] CLIA [id number] [address] [place], [place] [id number] [place] [address] OF [facility] Hematocrit (Bld) [Volume fraction] 43.7 % Normal 36.0-46.0 [facility] Comment on above: Order Comment: Terii ricardo Type: BLOOD SPECIMEN Ordering Facility: [facility] Address: [address] [place] [address] Performed By: #### 5 8410-2 #### [facility] CLIA [id number] [address] Hemoglobin (Bld) [Mass/Vol] 15.1 g/dL Normal 11.5-15.5 [facility] Comment on above: Order Comment: Speci men Type: BLOOD SPECIMEN Ordering Facility: [facility] Address: [address] [place] [address] Performed By: #### 5 8410-2 #### [facility] CLIA [id number] [address] [place] MCH (RBC) [Entitic mass] 33.2 pg Normal 26.0-34.0 [facility] Comment on above: Order Comment: Speci men Type: BLOOD SPECIMEN Ordering Facility: [facility] Address: [address] [place] [address] Performed By: #### 5 8410-2 #### [facility] CLIA [id number] [address] MCHC (RBC) [Mass/Vol] 34.6 g/dL Normal 30.5-36.0 [facility] Comment on above: Order Comment: Speci men Type: BLOOD SPECIMEN Ordering Facility: [facility] Address: [address] [place] [address] Performed By: #### 5 8410-2 #### [facility] CLIA [id number] [address] MCV (RBC) [Entitic vol] 96.0 fL Normal 80.0-100.0 [facility] Comment on above: Order Comment: Speci men Type: BLOOD SPECIMEN Ordering Facility: [facility] Address: [address] [place] [address] Performed By: #### 5 8410-2 #### [facility] CLIA [id number] [address] Nucleated RBC (Bld) [#/Vol] 10*3/uL Normal <0.01 [facility] Comment on above: Order Comment: Speci men Type: BLOOD SPECIMEN Ordering Facility: [facility] Address: [address] [place] [address] Performed By: #### 5 8410-2 #### [facility] CLIA [id number] [address] [place] [address] [place] Platelet mean volume (Bld) [Entitic vol] 9.8 fL Normal 9.0-12.7 [facility] Comment on above: Order Comment: Speci men Type: BLOOD SPECIMEN Ordering Facility: [facility] Address: [address] [place] [address] Performed By: #### 5 8410-2 #### [facility] CLIA [id number] [address] [place] [address] [place] Platelets (Bld) [#/Vol] 232 10*3/uL Normal 150-400 [facility] Comment on above: Order Comment: Speci men Type: BLOOD SPECIMEN Ordering Facility: [facility] Address: [address] [place] [address] Performed By: #### 5 8410-2 #### [facility] CLIA [id number] [address] [place] RBC (Bld) [#/Vol] 4.55 10*6/uL Normal 3.90-5.20 [facility] Comment on above: Order Comment: Speci men Type: BLOOD SPECIMEN Ordering Facility: [facility] Address: [address] [place] [address] Performed By: #### 5 8410-2 #### [facility] CLIA [id number] [address] [place] WBC (Bld) [#/Vol] 5.42 10*3/uL Normal 3.70-11.00 [facility] Comment on above: Order Comment: Speci men Type: BLOOD SPECIMEN Ordering Facility: [facility] Address: [address] [place] [address] Performed By: #### 5 8410-2 #### [facility] CLIA [id number] [address] [place] CNOVon 12-08-2024 CNOV Normal [facility] CNPNon 12-08-2024 CNPN Normal [facility] Comprehensive metabolic 2000 panelon 12-08-2024 Albumin [Mass/Vol] 4.4 g/dL 3.9 - 4.9 g/dL [facility] ALP [Catalytic activity/Vol] 80 U/L 34 - 123 U/L [facility] ALT [Catalytic activity/Vol] 24 U/L 7 - 38 U/L [facility] Anion gap [Moles/Vol] 10 mmol/L 8 - 15 mmol/L [facility] AST [Catalytic activity/Vol] 22 U/L 13 - 35 U/L [facility] Bilirubin [Mass/Vol] 0.4 mg/dL 0.2 - 1 .3 mg/dL [facility] Calcium [Mass/Vol] 9.9 mg/dL 8.5 - 10. 2 mg/dL [facility] Chloride [Moles/Vol] 102 mmol/L 98 - 10 7 mmol/L [facility] CO2 [Moles/Vol] 27 mmol/L 22 - 30 mmol/L [facility] Creatinine [Mass/Vol] 0.77 mg/dL 0.58 - 0.96 mg/dL [facility] GFR/1.73 sq M.predicted among non-blacks MDRD (S/P/Bld) [Vol rate/Area] 83 mL/min/{1.73_m2} - PINF [facility] Comment on above: Estimated Glomerular Filtration [...] 102 mg/dL High 74 - 99 mg/dL [facility] Comment on above: The [place] Diab[employer] Association (ADA) provides guidance for [...] Standards of Medical Care in Diabetes 2016, [place] [employer]. Diabetes Care. 2016.39(Suppl 1). Interpretation and review of laboratory results Abnormal [facility] Potassium [Moles/Vol] 4.4 mmol/L 3.7 - 5.1 mmol/L [facility] Protein [Mass/Vol] 7.4 g/dL 6.3 - 8.0 g/dL [facility] Sodium [Moles/Vol] 139 mmol/L 136 - 144 mmol/L [facility] Urea nitrogen [Mass/Vol] 15 mg/dL 7 - 21 mg/dL [facility] Albumin [Mass/Vol] 4.4 g/dL Normal 3.9-4.9 [facility] Comment on above: Order Comment: Speci men Type: BLOOD SPECIMEN Ordering Facility: [facility] Address: [address] [place] [address] Performed By: #### 2 4323-8 #### [facility] CLIA [id number] [address] ALP [Catalytic activity/Vol] 80 U/L Normal 34-123 [facility] Comment on above: Order Comment: Speci men Type: BLOOD SPECIMEN Ordering Facility: [facility] Address: [address] [place] [address] Performed By: #### 2 4323-8 #### [facility] CLIA [id number] [address] ALT [Catalytic activity/Vol] 24 U/L Normal 7-38 [facility] Comment on above: Order Comment: Speci men Type: BLOOD SPECIMEN Ordering Facility: [facility] Address: [address] [place] [address] Performed By: #### 2 4323-8 #### [facility] CLIA [id number] [address] [place] Anion gap [Moles/Vol] 10 mmol/L Normal 8-15 [facility] Comment on above: Order Comment: Speci men Type: BLOOD SPECIMEN Ordering Facility: [facility] Address: [address] [place] [address] Performed By: #### 2 4323-8 #### [facility] CLIA [id number] [address] STATES [facility] AST [Catalytic activity/Vol] 22 U/L Normal 13-35 [facility] Comment on above: Order Comment: Speci men Type: BLOOD SPECIMEN Ordering Facility: [facility] Address: [address] [place] [address] Performed By: #### 2 4323-8 #### [facility] CLIA [id number] [address] [place] [address] [place] Bilirubin [Mass/Vol] 0.4 mg/dL Normal 0.2-1.3 [facility] Comment on above: Order Comment: Speci men Type: BLOOD SPECIMEN Ordering Facility: [facility] Address: [address] [place] [address] Performed By: #### 2 4323-8 #### [facility] CLIA [id number] [address] [place] [address] [place] Calcium [Mass/Vol] 9.9 mg/dL Normal 8.5-10.2 [facility] Comment on above: Order Comment: Speci men Type: BLOOD SPECIMEN Ordering Facility: [facility] Address: [address] [place] [address] Performed By: #### 2 4323-8 #### [facility] CLIA [id number] [address] [place] Chloride [Moles/Vol] 102 mmol/L Normal 98-107 [facility] Comment on above: Order Comment: Speci men Type: BLOOD SPECIMEN Ordering Facility: [facility] Address: [address] [place] [address] Performed By: #### 2 4323-8 #### [facility] CLIA [id number] [address] [place] [address] [place] CO2 [Moles/Vol] 27 mmol/L Normal 22-30 [facility] Comment on above: Order Comment: Speci men Type: BLOOD SPECIMEN Ordering Facility: [facility] Address: [address] [place] [address] Performed By: #### 2 4323-8 #### [facility] CLIA [id number] [address] [place] [address] [place] Creatinine [Mass/Vol] 0.77 mg/dL Normal 0.58-0.96 [facility] Comment on above: Order Comment: Cam silva Type: BLOOD SPECIMEN Ordering Facility: [facility] Address: [address] [place] [address] Performed By: #### 2 4323-8 #### [facility] CLIA [id number] [address] [place] [address] [place] Creatinine and Glomerular filtration rate.predicted panel (S/P/Bld) 83 mL/min/1.73m??? Normal >=60 [facility] Comment on above: Order Comment: Cam silva Type: BLOOD SPECIMEN Ordering Facility: [facility] Address: [address] [place] [address] Result Comment: Coco mated Glomerular Filtration Rate [...] GFR. Performed By: #### 2 4323-8 #### [facility] CLIA [id number] [address] [place] [address] [place] Glucose [Mass/Vol] 102 mg/dL High 74-99 [facility] Comment on above: Order Comment: Cam silva Type: BLOOD SPECIMEN Ordering Facility: [facility] Address: [address] [place] [address] Result Comment: The [place] Diabetes Association (ADA) provides guidance for cutoff [...] Standards of Medical Care in Diabetes 2016, [place] [employer]. Diabetes Care. 2016.39(Suppl 1). Performed By: #### 2 4323-8 #### [facility] CLIA [id number] [address] [place] [address] [place] Potassium [Moles/Vol] 4.4 mmol/L Normal 3.7-5.1 [facility] Comment on above: Order Comment: Speci men Type: BLOOD SPECIMEN Ordering Facility: [facility] Address: [address] [place] [address] Performed By: #### 2 4323-8 #### [facility] CLIA [id number] [address] [place] [address] [place] Protein [Mass/Vol] 7.4 g/dL Normal 6.3-8.0 [facility] Comment on above: Order Comment: Speci men Type: BLOOD SPECIMEN Ordering Facility: [facility] Address: [address] [place] [address] Performed By: #### 2 4323-8 #### [facility] CLIA [id number] [address] [place] Sodium [Moles/Vol] 139 mmol/L Normal 136-144 [facility] Comment on above: Order Comment: Speci men Type: BLOOD SPECIMEN Ordering Facility: [facility] Address: [address] [place] [address] Performed By: #### 2 4323-8 #### [facility] CLIA [id number] [address] [place] Urea nitrogen [Mass/Vol] 15 mg/dL Normal 7-21 [facility] Comment on above: Order Comment: Speci men Type: BLOOD SPECIMEN Ordering Facility: [facility] Address: [address] [place] [address] Performed By: #### 2 4323-8 #### [facility] CLIA [id number] [address] [place] BREAST MARKERSon 12-07-2024 Block ID [id number] NVxhb pEaPGOssBPzW8NxotdzHTmkSI 7hVJ8sqOuxzXTbnEKxQCOsMmV yi8uhn572yTXzw9fwDTYYUMdt ZJWZKVa3wOukF36dv6T0JiduB 93ooHGwRQU0QZQhWMHteBZzUO UxBLH7TMSbqDFtH5jvLACkYZ1 gocnbZIqgAIbbTYNrcQW0VBLw yUWtV4UrUHGtYGahCLIjowy8C xKiEx3cyQWsuYsuJLomWADrMC BsYWluXGZzMjAgQTFccGFyfQ= = [facility] Breast Tumor Grade Grade 2 [facility] Case Number [id number] HIng6piZDZyvGXjLpSxHzXeWb KvFirmsWFeADZxNgMrf0nns50 8iJXjx8tmKFPtRwS4dHQgLAXg wGXwP813NLFuPAbnw4oyb8AnQ MIxyTCbj1I5WKCAdjsvuXj9oH toU14nt7U8MvfsZ4uuJWQmAUY dT8FdIS6oZMFnVih7MVQ7FDP2 ALWeKEPwA3TvGO0aOXPhjYCwT Km2b1rpfGxbHIAzITS7g2abRX ndvwNuOE2ahg6rkKx6j0gmheD dYQRjBUQtmNGNYFTuO6RhvBmp Qp7ooBo2kGktRibvBJR5Lim6C C6blj04gky4nHfeWUCbcrxnCm H0YWodAPEjopioDAt7RTtrMNX onWY6MFSjeQMwA7PbEAIjKU2i nig4TYK8DQugUKFcLjT0KMQnn AJwBWIneBzfLNfuz395LIN9Ng UgBW7dZ6Qpj0J6hZ4qdTOlDOM shHWqUjTkEOFbhs9miVQzUQyi u0FaILI5zdR7sEZelDMkIUBwP Y33Rphsh5GfIdefFTM9WASoqw Rbl3Ort1xdQhLrxzIoO0tsY0G bUWCwWZBbGONqKtZfogHtq2Gd d1IrnAFoyWu8r6pwYJLkQKUrt Dhnw7gfKIC3KJJcP9H3jKGqw3 vyHPfqSUIfbNP9hkN8JBHutDD oX1SguC6eBMKnCZ6ywlu9k8pn SBL8QIvbAEZcMiP2yvS1BMKnx QRrGRMklMfnIUuii930WRW7Dn LxQEKly2OgX9YkpXetH74rgRe wI44mOPGriNafjW4pdFruyC6g ZjBcZnMyNFxxbFxwbGFpblxmM VxmczIwXGxhbmcxMDMzXGhpY2 yePtDnJAWpgMarHWiej5IzYBG iHDOyBkXeXlY6BCS3FVf0Syte YXJ9 [facility] Cold Ischemia Time >1 Hour [facility] Disclaimer t5glnBRgWABnhYKvYCRm NVx3a KLqa2C0gpomLA7oxLmxrRa9sM amAARtbvP8xSZaFLqih4moKUQ 1k6szyhadVWHbPSadUx4baBPd rZouPdTmHVFuKFt0mP13GOVch U2ueYQbUJmwbxBzNSntqcOkzr ElXsu0JWA2bEzsNPVpqnygUwH 7WTyiBKBpcaeqAOe1KVhsXAFg yVW2CGRvmDQaZ1ZpNTUqCQ1ex cr9QDC8JRanNQYlFgT2FHScdQ IvUHXytHrcARgbh696KOL6EtC sOOLar5B9puApLlEwLANrwAR1 esJ9FRRqAM8iqryfb5oyAVdwR YmvSFKrrhC9ohT2BHKtcRMlN8 AdrW3hIWQaFM8yezhqc1tkMPV 0MFxwYXJkXHBsYWluXGZzMjBc W4LhPOWdrtwqEIJmIlttcyX3P ZphPj3pELYtakxxOKU6APxliQ IcKBZyu5RiMZcJBEaaNVxfX5g eiV2pqekryLUmRKYvLDQptmYl vi3sjmJcOUWhECJcG6Cvjtftz JdhycYdQiXreB81hy9jhPY8r2 EmCA1kJ3UvGOYvtN44ms8peFT tumTbJ2ZjmNCbdtSdW0sfs28u E6IaeTQtaX1ta1w1gTDooXCpv IDyczD5tF4iGKOme7SgRPnrjn OnDqThgmZrLFIfox0dybOiSBE 4HHZjQQVwYOXsd5HabM5rZCip Pq1sZPZflbmpq1l2cLswSNIwN XZlbGFuZCBDbGluaWNcdTgyMT eaCUw4NuJzHn5tVTO5STgrVQY tzHBbI7brYLE5yT2aq8o6CZRm VIMLKPPaulR2r3I7ZL3oZTdkv W7aJAIcgGBtfS3uzdTkNH6brG 9mN1HxkKZpBPlhl9WutCScJZN Oe6OjagNLIP3wyxKtPBkpl4Vl tPXsENDZgY1zcMKzGBxyi6Vsw xCVm7LegJIbySngSJDyP3crNG 7tnVp5GHvrPNvuPPjlyjECqVS pldIFWVKgZ1CoXLArjgZwkjwx TEOarRdbZHmhEDf0uYJHa7Z2v XMNu5VrzSHufScqw6RaSJ6gm5 6mNS2fwGv9MRpnPOluEJJjjRG qziFeCXQumjBjq8NxjeHeu5x3 hJWZJXaEHCHpcKAsoqFnDI12y v1xM31yEM2dAV3eclAiv6GtdC lcg4JgiGKigKYqcDF4SGGma2C oBgRxfhQpmZPoeeWrTQ2qPWBf bMAiqlYbSJY7WUIhPFTRHRSfH ILUGZNXNUGsqePqIXm5qBG6BH AzmF7zUYPyF8dJFBJivoMdbVR bmTAaMTIqeN4tqXGuMj7niOMy aWdoLWNvbXBsZXhpdHkgdGVzd CucUh4sAGraj1EefYKfdMAqUH DlTPGgLAZbVd4mTUJuiX9hU1H kJOT0voAcp4PpLuVYcCA4ACTt f6KiDTJmj9NdMqIsngEhHMCvQ ORaJOPoxU14SEY6pUnyvWqkml RoWF2zZZFzwuMeIOKtDJZqvK8 vSS6whFAjwfOfJD5oMD8dX1B8 oEUqLQFghtBdl5wjSCW8JWuiW GFwcHJvcHJpYXRlbHkuXHBhcn 0= [facility] % staining [facility] ER status Negative [facility] Estrogen Receptor (Staining Intensity) Not Applicable [facility] Estrogen Receptor External Control Present and Stained as Expected [facility] Estrogen Receptor Internal Control Present and Stained as Expected [facility] Fixative Formalin, 10% Neutra l Buffered [facility] HER2 IHC Score 2+ [facility] HER2 IHC Status Equivocal for HER2 Overexpression [facility] Interpretation Comment and Reference Range y2buyRCqMRMmcKEyBLSuVYu0r AChv9U0cgxpMF3dpKtykAb6wN hfVGKvztE2hGMpKZkhn6hfAUR 3c8rgqenaCRYdPPveJm5qeUDm wTntEeYnD8Zdb9YvFBh1kRwxD dLfJZEdWBs4zF32POYpeU2ksE JsIDtccmVkMFxncmVlbjBcYmx 1ZFZ6xVxqRHDiowdsXiV3XCgl CXAxcmamWVj5OPgoNFEqyJN0V QIljREaZ1DeDORaRQ5sihe6AP V0AScrOILgNoH3GXHdxGGpRAB mvZooLLgjm280LAA4AnGyODQs q9W3hcXxBgAeQHQkeQJ6qvX2I DJxNO3nepjah8igFEegCOpvEN PmtiB7awT7BJRdsFZbP8NqoM9 sLTXaUN9zupvoh8spJSL2OEtx YXJkXHBsYWluXHVsXGYxXGZzM wJvR6GcHLGhQfAsDP3dYYZLOU 6uQLFju0VwGJ7rrL8wYKWEUIT mgBLlegL4GWHdiem2wXZgG0Hj xQ9yqgmqUk9wHSAGCU8uGJumG OR8BTFsaMomyuBuioJenXNnwN F5dbGuTXOnFhE0bILydFQxi1G kJ0CpcGRxaIWcX55av5zvHRNb BJApd8WlkFm0ZU1vjOTqFOP9L RwdzB4dHPNdbuUBOwItSzCaWE EvAOAmFsK0jGNsbWFgt5SrY5C gtXGzkTAwK40ew2jnHUXjRJTi w4tjeM1fvHYmdiMrBPDpejOLd UPtyppiTyAuz2JxUZVog0WqK7 MnCQXxtyJ6qOKqYWXqBMBpJbY 0bYJamXVgb1QiN8NlhPWumWEa F79pp0nnOTLiEFWne2LyrKv0H V0xuCPkHBR2RCcvbD3qDKEdfs BFUiBvciBQUiBvZiBsZXNzIHR pSS3dNIEudWHtK23dy7puABLj BTIhJTzilAv3OJ4rLXZcfuiwK XJcdWwgUmVmZXJlbmNlIFJhbm wkybMfv5UbXOPZLjQShQ94kf9 djML4d7QpKE0by7XwbOezbVZa RSMuNDGRw7XhqBn4ZYQzIprlR dZGp34rtTC9CFrlzO38WR3fOI FclATxtH4qAYXqqyCuACxqxOG aPiTbneAlz4KsaA2tlwcuuR3b T0UyOCRunnP5iYUoYUOxXQRjO lM4wO0tlmCwRQypbt4zTFXkjg RWzYFtaf8iRKyiDMThYKncU7X trgZ6hbBfi7RidwA5VXBwl80s pOW6OUGcEP9mujNbTSBkcSLzn mluZyBvYnNlcnZlZCBpbiBncm PwvVLzNWBoLZ9rTULcCH7gXOB 5cT7aURUqaKbbZgRiqRYpRS3p D3W3gINqYElvRjc7LVgxG55ha UzabZBuYSGxoL98XW7nhLUkAK 0fJYI0GLhsvA7tVRdkNEezCYO 8MUYkwPezjwOtOFJad6KmrRTj s5ImS6VbhADhRIMwgjRFTYjrd Ms0KOUsANu3EH4gGSB5UMvujJ 4xVQ9eAYuqP81zsGzilMZxRjE lghGuhFJsLzKvpkJzz1EopM7m tiwhiU7wrOUnfjH2uAGyPG9uO JGmeJJkSBGjBUKaDJXvIeR7pQ 9ffwLhNTrohy0haXSzAWMajke 1bCBJbnRlcnByZXRhdGlvbiBD i27iXG85anigDUBbajt8sSFkU 47eo6pvZPRmvWjwsuHqKoKjb6 meo0bevXMzlWAymBbuTiMwy9K gSEVSMlxpICAoRVJCQjIpIFxp QQAipRL7xPDlCcumBws9w0Csn 2NlbmNlIGluIHNpdHUgaHlicm lkaXphdGlvbiAoRklTSCkgZm9 qURTxeSHdzVElkx8pBYzrUWFh XBEkQXN3oPEjCWtbJAOyX77of QEdAYHtNQVkDUA5sLdrAIBkEX 9yZGVyZWQgYXMgYSByZWZsZXg gdGVzdCBpZiBGSVNIIHdhcyBu m0TkENH4FMU1rQ7kQY9gnOvqS L9ro7h5TPQuslPjBCqnJS1luJ 08EMQuLCCeftcfAQCtnXqxMk7 9NFIbp6GmGXWmoC49HAZlt0Rp gEYsDLRzifu8bEGzUl4lJF3zi ZlgvrIvI0mjk4a7gFJeCZwkeq BsZXZlbCAoMSUtMTAlKSBvZiB LWtIodJWvPPLwsD9vUPV5BHvd lNEdz2acc0PeX2xuhVbqeKM5S EA3mTGuQSEmawOjnGdaqDNyBD RjYQRcQK7hJHVoEKIvgtOgPDq gNTCtirSqiLGtt8WmXJ9uj8Uq cB8jFPIyMNSxsAhwimBpc9PaW HYeMETvGK30GXgpsNicbP87XB mrvyPqSUekQN0qFYPhRSYQDAQ 5qBVvj3Jck41dRZH1eOX9sPW8 NWJ6oyGtnqStwSScrVmbLPF3W BJga2TeFeheEDUnruKkrDRiME OotkIzZROxFT77ocOoneHgC81 of7obXKUoDVWvjEnjpPBxSCSm x1LoZX6jk2MgpG3oDRJaPTH3x SYdpO2vxsNVg90xFTGepMGheC 6ydBUxyOBsnZgbdMFidmTso1u 9ARXkXR8cHTUmBTrtkCkavDok b1MnvnHjcBm6ojRwqwMheFD2A WKeW6GvUM92pjCgqoQnNKjncb mpdaFuokKsFnxjoD7guMUqxnJ lq0C0ET4zpZM8THLeSK9oJHW5 lMCag2Oyk88qgECsXjigIEPla L2zRGCipF0rzHKiLLZyAHHLHE 7jP0Z7fRAqHVSfuzSavxLwOEC hcn0= [facility] ASCO/CAP guidelines for fixation met Yes [facility] Method s9xrzPViTFTaaQOsUSVn NVx3a YAne0G5bohhOL7mtAyflOp0tW qeBVIsdjS0nPZgWBpmc1ivWCT 7w6wyudwjNQGwVOieVo4dqFQt vQozBcGwE8Ooh2LyKZg5pEfrX tJcXFGuIQq2cO60IDJetO2tdE JsIDtccmVkMFxncmVlbjBcYmx 7FVS0ZTTtXJPsEIobJQOkGkDz Alv2CBKvE27hcOZzPZE6OLBcR KMbbYVmYBOaMQI7OVPjoMYkU6 ziYFCpAI0hoqimLKloWYivHCZ dcKM8AYDrjVBuS7WoVICfJLmt HKSevke1QoBeAp4djZIjsClxY JnsO6kamE1xCnC8ZGxnN4dcpY 5vNEl6UPwbBUGzeFS6kbX5XXD cfIMwI0YzrR7uXTXnJR0lngh7 q2tnTMX0HUhjRYDzXvD8zoR2C MQjzIHwHPzaxYUoknd6dOtyNC cnevBbYYVmBKAJi2Cvq6ceaoL SZWNlcHRvcjpccGFyXHVsMCBG o89rJKUoIZJJnmBzENMwxXvty QW4kwO7hL6fAObTNNXpYODdJJ IzJAS6AHRzziYltfMuFCJovYW xwIQAhME5ZA4vADVWvFZlv19w PQDkHNEtclQXkonyBJA1QUNgn Pwxn1M7XrCURCGypYOsZYTgbi j2bFFYxl8mGIO3LIHewgSuHoB gDTJ7a7M7VCHfcxm2rVAaTgNA LGJtZKOtIFU6AIEzqgErdmRyN DGwvSOhwTPOzCY5LN7vECHVnF Bji74uNFJfYPUuquCMasjwVFK 0GKYjtHivr9A2GgPJHUBriGAs VMUuqyr7pIXPGQFzUNP9IYiKA osfzPIqYNKeSWTIKEHxY5qfVX AuMZsmZwJufZJzPNXUUFRzX8S wAHC8s6NihAPgOHV6I0Tyazvs DPepoUUkWQEtpP3jvmtpXD95n ANmZQm0ROI3IWfkQVDxfUMdUJ NiZVNxf6Zdy12zTBJzG3ZfyV2 eIZGou4SmXDvwunQviLYvJq1u bWVkIGFuZCByZXBvcnRlZCBpb aJqU6XthbGyzoTwGVzsqLlczW wqOAs6tDNviDkxBREhXKHpbt1 1PHUdMjmylJkcONFsVOPcQ9Sh YPCzY9gzfSnmw4TqH2fvfowhK AvxI77sc3dmG2xmoSSpRP8lFB CaVJAKr4dzJKtkTH2jMFCvVZB hM9CkJZDcrUxuyN7lgWA7vi6c QWxsaXNvbiBLSCwgZXQgYWwuI ZHIw0Kyq9imxyRqkpCgKYYlU6 PnwFCbd91oHHIsA4GerX0jPMT xc6UxrexswD3pWiYkMXW9JHAt nzEdkzyqGH4grywfXJ3hD65km BA1gAVwFsECzIvgdRLpjXPFes SqbD0bcQG8mhTlqiOiyWaoOMM neHgpV3Ejg1SoAX3xankaHE2k CHP4oH0ay0qec0YfEXc0dAIpi GluZSBVcGRhdGUuIFxpIEFyY2 hkGUK2zE5qSGbxDxLRFNRqQGc mTFJpJAMnRC6gqPasABHpHZa7 RAM1WFQ5Ae6nBG3EDUsuOMLxJ kSsZXzoVGC2KXkxRsCgNjjnFA ReOAfdHYEnXKjiTXwomk4benQ nfgAeZAQ4v1WhDNSjNEvyKNrb byFiDfBzsuFngeWfdz6vyYz2M HZhbGlkYXRlZCBvbiBkZWNhbG IqQgjrIYB7kRViqAMaNMaey9R clONkrmMyVS3qdHHvb64vsLdi IZRvbyXrACJfsxDSf6Ynd8kyx kAzegLjfBLcN4ZkuMIus39xMZ DlQ1WnlO8vRNSuu1KlrFGlVDR yHLSzeEgrIAulFWBax6U0DUM0 AHApwKHlD6Huz0JbOUQcM72sM WlfVtM8rdIKJ2YFH1NRYLXmfS lkZWxpbmVzLlxwYXJccGFyIEF wqEptf1I4ZZNtLMYMWRKqV9Qd n80eQ5ipoNCsAeUPXX61AB3jC 4LwDBG1qDcawAUokgFfIGeQAp WngrWuWdv5AM1ghc9whK7yWBm uWG80qIOiTZynLBSbu03hRAZO VQwiNYPfduSmppOgQ05pOombk VBwxzVhDDTzaDEcZ9QqABQjX0 PlyF2wVVSlXqYhsVJvm57gM6s mohAlEPYkbOkhq8A0XVzphF3n KJVISGPiOYTlLCBBIV22XZ4bF NItzOxlvOOdZ8EtuLAoz62aVE KnS6PmcU2vLNDmOkMzyKWzb63 wG9zivmXbQRHfkYtpo9Y3YFss yQ8gPRGQJNBwCXIssWLvtLSbF HdpdGggdGhlIFZlbnRhbmEgVW f0gvLZmZK2YWQtdWIntqTwKVC HYwYARVOoZ2Jqh05iK6i0VMqb sbIktaSkwHDjmA25dU8cOyKiJ BJkCXYsI2Tfb99cJKCBIA58RW 4fID0xFQjiOTxbA3wwrVSumnn rPYHnx76aKOAEKj6sqWKuDOQq heWXy726qw5dZLBwcTTyofwgJ 0EidHUvaM8eHYGsklVdo4yeOS zesNsblTjwcKpoOZL2rVWnA7X zDNBbm6liOHUzNSVjFWsyjCx2 QTXKQXRrHKFkj5PmxC4lKGdmu wTvk6prffsgNRsvvoduq1v8gG Veip35wgTju4BkoQw2GJQgt51 6tq2oYDMcc3Y3FZGttrFpoHpa LCWrxPdtiwJdrqM6tFVviXLuD DXtKKCvocRmlQB9JULcSr2tQJ uRUzBiFJicqmHrn4thpd1wTZE vqyfrSCUaDNnxQObFMyKyfK7f iL9jsOnnwN3kmYFqqPQ5oqiqF ELePGssd4SzOGCztlBiy2TxYC qxyeEfyOZhpTBhGGKuD89tGLY sIGFuZCByZXBvcnRlZCBpbiBh X0KyrnUehwCyPCacbTzjbHvwA Mf5wDNkeXucDLPtEITvrz41RR QxOtstiXrzWIKdSNUvW4EvGWW rC4zwqWwdu9JrH1kujvfaXJcb B54ii4rnI7cxkQAzSE7nDZXeA LOMl1rvKLdcYW6gPLIiVCTwW7 ZgOBTbbOuxxE6twHH2ga8hC80 xVeMgPSRzXKTwZKlwBCImS2to GQK4rB5wBIymMzVXZELpZDUrE Lw6DQW2WLr2BGsgFFWfaIGmAK QaAKYQCWYwIDLpl9A5GLjwasZ of9KhDbHegxY1LKdoLZS1WLYz n27cEUJcYUteiPKxJLBcgLgsi 2Puna6zP5s0VG7pjAouHVSkj3 MyOcolgTT4MM5sQECdlDGzGP9 jK5J2xGYrBUKjj6UyuQGnu10g PYOuKWdpgXGyIYQch3DbL9uaE T9uYVIjFHP2zFKcKJMdl3OgUO NjTLOjiwMgvaTlVVSdUPE5mOS kWKSilIGot72zOVRrpz7= [facility] Performing Lab w9pvwQHjDGRia1jlUGKj bGFuZ zEwMzNcZnRuYmpcdWMxIHtccn RmMVxhbnNpXGRlZmxhbmcxMDM vLWS0dlWqIMFiKTZ0KDT4FwLw ZGDaBkMtYEPxGEGnp2vss1Mph OGdoIFxNUyerCCpzpAzee99jG W4rQ84HQ1mDUInTlG2PZTaxeQ 2Psv1LILoJHWzoOVaL604s8rz h9rhalXkdUT7pObkMKQybvcgG xN2UPydIKNapigtQUj8AFawVB XduJC2NHAhkGXlB5IuUXMhSJ4 gkzs6PBO3VKrdOJQpFiK1DDMh cKKzQNYtxIfbVHexq881WDV7P aBiUOBpi7D5ruJnCwEzXAHuxJ R3mbR4JNWqTQ4hqtdld7fdBQo xLFeiVRRmgrK6qyY9DUZdyWMm F6MhtB5bOBSdOO1ksryvn7swK FU3SWfkRLMlJVAbHDriVCXmUz IpUMpeF80rw5RkVbGvbtXsbaD pMIXiaIvcaiGmLIXvu4HnEUAm AAV2RBXdTQWkxONhXHJLsGxyb IAoKVVmfgKVXW1cwMTfAG6joZ f3VPhkPBRzf7IpyC7ywPgoXCT wMCBFdWNsaWQgQXZlbnVlLCBE FKWlAYsxMGluB0zyptUpYX6uM K1TARM6RWs4VQUrV8hWAQPlAh TQPND4PwD7KSxcFSMiFTRdedR FXDTetfB7i0F9OTCfzlMfsK6g JpHOMAc2XLTcFNRcnaopb4EoN D6PGSSzyw15o1geiUByLTVvdU OqGfMfABWeXXSsi9ckUXKciZK uZzEwMzNcZnRuYmpcdWMxXGRl DjOxm7ukx711lFSxl3paACUsD jF0mHYhVYSnwYVpX213OVYeLR fqu7gki0ViBUAjqGEss8E0GDS UxzqjrQj8jXghI76mt8J0Cono K1sgTCNiYCHqO4ItGP5wUUAjU my0APS4WGP1KAVyUOGeT3HlFD 0aSMJvtAIePSl8r7tyyVykGPW eKVE1x0fwAHighbFrEY7ptx9a sZn8b6awohTtVJVgPJWkmABLS CPtR2UuwLmpNs3osAe9tKwwYi ppHXA5Ezq8TW8nae66bkw8cZe bVRSjhptrAgZ7KXatCBBjjsbx LRz6TXpaHNUfsSO9PBHnuRFoU 5XwAYHdIL8ehyh0EOR6VWqdQU VuAzV5NKVkdXDgEVQliLqcDMq fh992WKJ0TzBoCP3uE1Rss8U1 xY8hwOIjYVWosIBhSrCrHBCmr l1dsFMzYCubb3XyWAV1jiE3wH HooZGlDDGxET37Uchcr0JxTdd vTDJ6DXMgrsXpl9Uys6koYwHh vwXgC1ojK8YrAFAfMUQnABPoK yTiapMyh4Sdc4GzqSGnjEq3e9 mqXRNpPEFycPiyr9diAZW4AZQ jZ8G4uENcd3lsEDhbYYVtkVJ3 jhC2QNTeqHFqM9LeuL9yFXPgB S1rqqk1z8xxVCQ1RTuxJLAlDt V3lnS1TTAqvCNtYDLijBpvVJj bi435LQG2SjQdJLIdi2NtI0Mb uGdwM94guIlyH06cLDVcgLpki M6hrPdygG7zFnDbUiYwDYrluF xwbGFpblxmMVxmczIwXGxhbmc zVCGrBRdbU6maSuQvMSEvbIui WJeoq7JnIMTkNYSbLmNtAPdaW 3Oxg02jX4FnlGcih3dwnyAiGK 33rUSikCpyZ4OrY73yIMhspB7 ncywgTUQsIFBoRFxwbGFpblxm MVxmczIyXGxhbmcxMDMzXGhpY 8ofUlRzBGJnjBkdAHfra9LyGC YxXGZzMjJccGFyfX0= [facility] CA % staining [facility] CA status Negative [facility] Progesterone Receptor (Staining Intensity) Not Applicable [facility] Progesterone Receptor External Control Present and Stained as Expected [facility] Progesterone Receptor Internal Control Present and Stained as Expected [facility] Total Fixation Time >6 and <72 Hours [facility] 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 [facility] Was Specimen Decalcified No [facility] Pathology biopsy report Adolfo (Tiss)Ordered By: Moris Jain on 12-07-2024 Addendum k9dadCFkFMRvdCDfEDSr NVxhb kCoLRVnkMSvQ1LruzcjFPytVM 6cAM5byNxfpCQryVGwZAMhWcK ps7mgf681zAUsi7thSATBrnir xLd5xMzgD43qv1U6OfxhI91et TCjUIE5RSOiEFCvxXBkHOEdXN V9IMGwuLLuW2wkBWHvSR6cecb zGZwdGEvmBUBgmYP6XRAqcIRy F5XmIDXdPOykZVVxrkd8EeSkY z1hvJNruQkkHEhyEFVhPSVkZS dpOVSrWdYvBH8jkZ1sgC7rmKc krR8pwWUjhOHxdNIioQHdjrJi w2IcGQ7lsh4tJJ2xukQpTAY0o 2MrZZZjbpJrvo2fWNWpyqDglM 9jayBBMSkgaXMgbmVnYXRpdmU bsB3guHnaTQJ7xK7mEDVhzAyg GTLmbxr4jW2lBSEoPCzao7Uwi PE9JBFxkE9kkwkcKFGxiGEjZE ReolRlTBBhm72fGJUurp4= [facility] Work Phone: Case Report Surgical Pathology R eport Case: [id number] Authorizing Provider: Elisabet Hirsch DO Collected: 12/01/2024 01:56 PM Ordering Location: General Surgery Received: 12/02/2024 08:57 AM Pathologist: Moris Jain MD, PhD Specimen: Breast, Left, Core Biopsy [facility] Work Phone: Clinical History [id number] bGFuZ gQhJeOoXgRyXhd1MFJlcfJ2Ld w1EGEcWLyynZ9kFQQjNZdxX8t ghbHbsPMmXNFpMMb2tQ4weWvw yE6hPwLfQtDpTGUFSYD8YLZyB WFzdCBtYXNzXHBhciB9 [facility] Work Phone: Diagnosis Comment e8wesWWjPXUyvLElXARt NVxhb qKlOOQwxZMfH1DumwidOMsyQX 4gWQ2rvYhqtQVimUPsMOZfFjQ bq6zmi458hHJup7mfUGLOkrak zJg3sBppM02gc2G4KgxsH79hd AZtPGX1DTRmWXOupAJsXQUmYO F0CUGixZFzC9pzRCZkMN6xjqo cUXpiBJlpTBNsgFI1FXKffHSm P2YcFDPgSTrwMCEttjm1VgHiO y7xrMJfyVlzKUevOVYjSNXqTX xsBEQqYfTzAZabTFEyj5KhqWB nuM94riIankGtssDuu2j3JYAv QPZhmH6vlLUqM07bnS4iZCVny 4Ggw2KztZGzixBkJC6sx2IfJW HnRGBxfL8wtPVbk8SxtmVsFpH 1jC6wkdQtXWubdcL0vHDySGRo vBibUSBqn3dna4DzdQlyZkRao dOfiMdbloJuvAOpxRjis03wOW 2aKBKsBV7mi1BxjEuxMBAkgXF cbbMppo7aMBIjNpBmiHAfSOig v5n4iGQnyw4bzU9qiwPuywFaj XGwwEenoC5zTRWaZXGwQ9XilT 8wHU2zIOPlPjIlrYAudBoau7C jMGviuQjvALCdvh5pvE8lhiIc cLpfiGfsQ6q8hCYcnF7ltBa3u mS4CL1iYTClwrksUERdFDuoAF JmeHokg2ymBxTumI62xo5nwFU 3v6MvZP8lO6QsVXR5CShmdhC9 PUZzEBAwimJptb1dEROkxwAbx D8lhjNLFWAxadIiNEJnnPRlyI GsEMqmHUUoLWG2uH2qdbMlKGi pzdbmbPCpFO3jX3YgWJJbirIU SQIlThojYFJcy5u5mJJuGIOaa lGjRIVDTVGfPiasPSKxs1p6gG ZlIFxwYXIgLSBHQVRBMzogIFB yt2q1dMDxXMWatdBdVDGGPMFm HdOvYnYnCOGpgrZxeXUqXI0hJ RV1XLIIGBbmgZr5SOmqZAXxVK JaJzJ4SHKBroUdHIRkrtl7QNV qaI7edCn0kPCwcYJhBPTqlRkv d6WbvE0jwotfZGAnZZM4XENpA TX7hR6eudCdOQtvOUR1NTnfiW 4dDT7tuSRlJQgeYJLzhVNwSZB rCYQiyY0reE8iysWqsgIqF21o j3tsrKOjdEV6xUDhYQIiJNezp gGiyNCtHGGfrcHawq8zUYN9fR YrLVOph5ZtxK6lFVUuYWV1zeW kDDC1aEoexPUvESXvkZGeuiT8 bAS8rxJ3KlYspS3apO8eqNbef lTnmL2ekNMpCJ0esVCupDFtAh kdBJCkgCCaVPKmj5LlcTIwo7Q mqUMdqhFhwPF0bWReJXNFBPCP TghfIJ7cWDhXMvJpwKFiwUepC kD4cQztNFIvtBqporYkctUaVW xpbmtlZCByZXBvcnQuXHBhclx wYXIgRHIuIFNoZXJpbiBIYXNo WO6axDQcUMDnr14vgoO0lDX3L WQgdGhpcyBjYXNlIGFuZCBhZ3 WhJMUih4e3aWM1pRSyUTedL21 lu0bmCkQehIHstJ== [facility] Work Phone: Disclaimer z6lgwWFtMPEgr0bmKEMn bGFuZ zEwMzNcZnRuYmpcdWMxIHtccn UbNFbdpJdcHQMrJYAqg5doa4q gqHOaXZXrn5vru7LxtHYucQQn DTzcbLIszmUgja97oKL2xL46C B3eXWQcCxQ0OYWlpmI4Ocz6SR TePIHhuMSoL152u1tqm8ivqqV sxRM0ILRbSILvB0IgJX3oLMUp vRGmF08yqVVyZXZ7GNWbLHZom RGrMXYyHYS2NRRdzFGiD7zsQS NvCA7jjfshKXelXYykWOBtzGK 8BXOceZBiF0NdPVYqXFwnWOVt jis7LfBtAt7osXBxzGvnLAgdU 0xsjJ5xPoQ1TUykO8clbG0yCD h2GOqqCLWaqAF4scG6PWDhmPF xE0KpsV3xJXXfSK7isrd9o2tt TLX7EZizQPGzObI3hmO5LCMkz GFyZFxwbGFpblxiXGZzMTZcY2 QbMZheRm3xCLLjbkelGKE1JUj xvEPfNSIww3BnZFoDZIkvPNfe E3rjkJ6omfxfuXLqCSPoQYRwM REFSCBno8SfPA3nLOSroKGlII A5GKQzd6InX2Zbz5XnbG7kvK4 tlJlzlO0rsUVwlIFpsRobrE1v oF7gNjx7f6Fgn5AlacFaGPMpB QNocQOrfR8rUP5rGsYlqd7gjY Z1QRb2BfBmMRw2VQBze42ttBY ohJGsaDX4EMJsTTPhLPYtrYIg bWluZWQgYnkgdGhlIHBlcmZvc w4nvgcixKGfz6PtyN2myNL0iX XbdI7aZ7znwyZfIO6nDDJmyS2 mYxskFFVbDpMrfRWDBxQHs57n tLGrXGPkmLvoxA6ukWHkthXdW WDrb2OcvA2muOKAWHZxS7emPA KNMVDfjoAyZI44LMbYCUjhRCO zaJI9vlUVi4HlmRIesVlaQKuy c58yK2KaYALvtYZLc5BuhSJcu HnhAhkpwkhgZCKQAOJ1h12oMK 4ttHx1CFwaQE1mqjW2ANbgr5R ipQSpTNACcrHqVV1oVmy4QOGf WVRceTBauQOJXF73JHCaBD9rc yGanjZDLHGanYuyNk2anPnkDT 3fkTr2NDaeMO4nVNZyvZ6vWXz sz2WfdBQoVHZkzbPxUH6bhp4b ofWnr69ypDP7QL61YDqjqKjtK 2wPLYOgYDW0tVOzmEGivPQxPB 2lUZGqsmCmf4UdLU0xJYErJKI zSFMzc5ErKY3svPZkk5UyrPS0 TELnVQSvQKZpJCRiHXKfb7UuL KVbtv45XIOnGgfnmNigZVUOUR 5wQcSwOVrSTEyxGCVkJ4TyBMD pROK0xoKkcxBOCIhTCTDvKWX6 FKcmTuzvYWO3kaGlZITqy3XpI ZauO1wdK81jjCybpEj6rWJ8JD C4dY3lVjSQrDWeLBS6VGX7kdN waiXdaBPcIDYae2RhC0hmdiyc DKgfcASmsC6hPUGhBYPtBZIdD CKrt3ElQIKju3TsJxDfkpRdWR KgCRVrHWUxgA13TDH5rCdjlVc pwvIhNK9aUKGhamXdACXcEUVu eF9gJX5bdUGkipRcMP6lNM9wK 9Y8pQJwGMWjqtQjw9xxMGU8KW luIGFwcHJvcHJpYXRlbHkuXHB hcn19 [facility] Work Phone: FINAL DIAGNOSIS j6rssRFoJMTycUDjWKWu NVxhb dDkSVXklBRfU0SrsiriJGufDP 1zWH4wdYfnkDRuhIKkZGCqUpC lc7yyk664gSOlk6jmFJALvjeu kAz8yCqpI38dv1W1TqpiJ17ve TUsQID3JEZzEPObcTAnKXBjBF M4SYTsfQJiO3haVHZeSK2jsie hPHwcFTucJGZnuZN3QDExwDRr D7FfRVPvTHhoMQWtgwb6PuIyU a6awHOsiEatZTwzEZMwOJMfKU hnYXQxXiWhNNVvzOXeenSke4G eWHJeyhLiOmgadHS9XnprQMTy QG71BGSeotQvC7GvO8swe71eV AvobVtaLSWkZ0TfjuPqArTczS FeUEClHCL1CDoyNBS4WD5pvBU nrdjxCG9vR4TvTKHgPvnux2Yo NOIsrZ4znmNvXTUdoy9= [facility] Work Phone: Gross Description a5jnkTFwNPGqjJNDNYWn MDJcY S5ihZehdNd3vYiaZZQrdgM0tE SwTNtnu5opLUR5q6tuwrSCElh kHAQqRQ0wAHxwNIMrJB3mQtXi XGRlZmYxXHBhcGVydzEyMjQwX NEduQNjqWS0KPOeOX8jpvewPP ddOTknROZqsgQ3OSPkyAInC0O yVYEiOT9hujoySBK4BOZEYheo Su2pgUEnpBpeUzSdXuHiZXOxZ LUjXOOdf5krsxWKptboePj1yZ 4LFNQxD1DuWE7Vs5ezESIipOT mXBQ5OImcn9zuXZsjXOB6GGWx EFSaCMQyAK4GJaUwDDxjOITzF gN4AgV7EFi4ASFPDWEjPLJ3JF t3WIQjCHx9IFryQKcavRYiYUX nBRXqRMLsMEzgozS1j6dkJYJf xNMuHYO2GRmyy5tlAAocNOQ6T NBiJuScNWIyYC1OGaHtYCacJQ RgRpX4ZiU0TFo4NJOSAdKmEiN sJzEaEBE2IQVsNOu6CLk4IMfH KtWsKWF3KSDgLRpvYNO8FCTmT iBcXHQgMiBcXHNzIDMgXFxmbC HvLP9dkKbsLLRqIH3ZVZRfSFs pEBBwCaCtVK7qUwRkIXT0ZZNN YYH7FCCMv6GbJFSsl5LujNyla HJjaFxmczIyXHBhciANClxwYX GtNX5BJUGiWQtiPQm9siZcHOB rBsJuADHqA46hn4DHd6CsVV3C OVd3hwUnojLZFxdgtySgRPRjT 4GilpBgOZjbJBUakz0ehIvaKN 9uIFRlbGZhIGdhdXplIGxhYmV sZWQgYXMgImxlZnQgYnJlYXN0 VbPvzsRneHSgbZfxoBMal0Ydi BKrhTDwv9KjW4fvtP3tzsbmKZ equBdir4RtDEYpT3XhG7Z0pW8 lTBFlFRHbShZ0CCDoEkS5RLWx MnReeQlnmHXpeF28OGwmfGOmN GFsJHWpQmYhRJP4XyQkiohxZ2 2eq1fkkCVdC8ltYSElMMJilLN deS1wgzR8RVGyadDeh3NiBFHu jq2vCJYrEPJaAIRpDB65UWX7S SMwjNbqSCSpa5Qxp4JrP9maaW ExTV9kDBG0EwPlMbNhJbOdNE3 tYDEcGTToMM6vHCBomIknqHad IHNwZWNpbWVuIHdhcyBwbGFjZ KAmvV3mVx4ptORvyE4cRXMkLV M3jF0yWB0kaWGmrRQpdPMzOLY vRVFkbJAwcCeuj7NanGf1jWOw GKxtYZPocq1caGsbWFlmYH2mY DDbCJNvOAN7SN5uQIEhlmUZBv xwYXIgDQpDTCBBcHJpbCAyNCw iJsBkJES5WjI4KGIHLENtsmXF YvfvVQKkVDjQhv4ludAhxPFtr A6ggQlgewOsRGUui0ElICTzZF NxG8fgmzEbQS1qJOPlpC0eDqv gOTUwMCBFdWNsaWQgQXZlLiwg N9duxfBoLZ2hXSLDBWP3EXS2N JkuJOFiREpbl5TkOLkrtBedUV IlRaNyBNjpHHMlQ87om2EMw5S vf3tiyIikz0WqsVZpOA07VFTa dUMkTAN2PH4bkUyrTPXjUWcdm GFyZCANClxwbGFpbiANCn0= [facility] Work Phone: Performing Lab f0fewHEzEDKtyVUsLDSv Mlxhb iYuMKEhlHRnK0XgeuzcTFclAW 4qPL1fjWrwnFUozEWyZDWgFlW nx7xfs035yNKrm2tlDZOVdzgv yNk1jZslH62yg2K7JljhS57xe TGrVYC9BUFuTKQgdLEaXTMjLQ A2GPXrhIGuC2gvCCAmQK6fmcx pTErfBBugYDCqlNM6XKVhrNZe N1LfXGUmROllWPMckqi1YzEzT l8ynLRspNrhHAqcQ9ouqW7kHp F0GEbtT9zcoK3mPLk1IZjwSOU rsST9zrV8CFPzyWQcA3CpzY2z EKDvQT5mybp1k8ldOSQ7FQhqO JVpOyY8wxI5QRTpdDHkSXxgiT XqingeeqOcMWDnYWdgk3Y9tJH flQ41JMHtgeB5AMAwd06loTNo Wg8viUUnTNU0IsXDiOE0IOxla eLpA3afoiczJO0qdB8kP5LkbM NxKDssl0CblQDfIChrDa6eLMO uxoofMGq1RJCwFEWykIhhMQL3 GA56WEzdCLHkhxMBLiPmLDNzT HHkxSVeQVQYUUT9LIE7CMGrDY KIWEMeJPD3XMJ3HXCoQHFumQY bEYhhUHYiXXBvv5TkfQ0gdGPN oDApN0GiuaetZ3JfcTVnJLbdw eLvN6ekXQXYSSepQTI4 [facility] Work Phone: [facility] Work Phone: BREAST MARKERSon 12-01-2024 AP BIOMARKER DISCLAIMER [facility] Comment on above: Order Comment: Speci men Type: TISSUE SPECIMENOrdering Facility: [facility] Address: [address] [place] [address] Result Comment: Elen gabriel Developed Test (LDT) Disclaimer:Performance characteristics of immunohistochemical, immunofluorescent and chromogenic in-situ hybridization tests have been determined by the performing laboratory within [facility]???s Jamie Mack Pathology and Laboratory Medicine Department ([facility], [facility], [facility], [facility], [facility], [facility], or [facility]) in a manner consistent with CLIA requirements. One or more of these tests have not been cleared or approved by the FDA. [facility] is regulated under CLIA as qualified to perform high-complexity testing. These tests are used for clinical purposes. They should not be regarded as investigational or for research. Positive and negative controls stain appropriately. Performed By: #### L [id number] ####[facility] [id number] [place] [address] [place] AP BLOCK ID A1 [facility] Comment on above: Order Comment: Speci men Type: TISSUE SPECIMENOrdering Facility: [facility] Address: [address] [place] [address] Performed By: #### L [id number] ####[facility] [id number] [address] [address] [place] ASCO/CAP GUIDELINES FOR FIXATION MET Yes [facility] Comment on above: Order Comment: Speci men Type: TISSUE SPECIMENOrdering Facility: [facility] Address: [address] [place] [address] Performed By: #### L [id number] ####[facility] [id number] [address] [address] [place] BIOMARKER INTERPRETATION COMMENT AND REFERENCE RANGE [facility] Comment on above: Order Comment: Speci men Type: TISSUE SPECIMENOrdering Facility: [facility] Address: [address] [place] [address] Result Comment: Refe rence Range for Hormone Receptors:Staining for CA of greater than or equal to 1% of the tumor cells is considered positive.Staining for ER of 1-10% of the tumor cells is considered low positive.Staining for ER of greater than 10% of the tumor cells is considered positive.Staining for ER or CA of less than 1% is considered negative.Reference Ranges for HER2 Immunohistochemistry:Positive (3+): Complete, intense circumferential membrane staining in greater than 10% of tumor cells.Equivocal (2+): Weak to moderate complete membrane staining observed in greater than 10% of tumor cells.Negative (1+): Incomplete, faint membrane staining in greater than 10% of tumor cells.Negative (0): No staining or incomplete faint membrane staining in less than or equal to 10% of tumor cells.Interpretation Comments:Consideration of follow-up testing for HER2 (ERBB2) status by fluorescence in situ hybridization (FISH) for all equivocal (2+) results is recommended and will be ordered as a reflex test if FISH was not a testing methodology already employed.Note for ER low results.For malignancy with a low level (1%-10%) of [...] to ER-negative cancers. Performed By: #### L [id number] ####[facility] [id number] [facility] [place] [address] [place] BIOMARKER METHOD Normal Arnie miller [facility] Comment on above: Order Comment: Speci men Type: TISSUE SPECIMENOrdering Facility: [facility] Address: [address] [place] [address] Result Comment: Estr ogen Receptor:Food and Drug Administration (FDA) cleared: [employer], [place], [place] Antibody: [id number] Receptor:FDA cleared: [employer], [place], [place]SPrimary Antibody: [id number] by IHC:FDA cleared: [employer], [place], [facility] Antibody:4B5The hormone receptor tests were performed and reported in accordance with the guidelines approved by the [place] [employer] of Clinical Oncologists and the College of [place] [employer]. Kristen MOREJON, et al. Estrogen and Progesterone Receptor Testing in Breast Cancer: [place] Society of Clinical Oncologists and the College of [place] Pathologists Guideline Update. Arch Pathol Lab Med. 2019;144(5):545-563. PMID: [id number].The hormone receptor assays have been internally validated on decalcified tissues (for [facility] only).Estrogen and progesterone receptor results are valid if tissue was processed according to ASCO/CAP guidelines.Antibody and Detection System: [employer]'s Pathway anti-HER2 rabbit monoclonal antibody (clone 4B5), [employer] Confirm anti-estrogen receptor rabbit monoclonal antibody (clone SP1) and [employer] anti-progesterone receptor rabbit monoclonal antibody (clone IE2) detected with the [employer] UltraView Univeral DAB Detection Kit (indirect biotin-free detection), [employer], [place], [place].Control Slides: Cell line controls with high, equivocal, low, and negative HER2 protein expression, along with known positive control tissue and the patient's tissue, are evaluated for HER2 expression.The HER2 immunohistochemistry assay was developed, validated, scored, and reported in accordance with the guidelines approved by the [place] Society of Clinical Oncologists and the College of [place] Pathologists. Fransisco WESTBROOK et al. Arch Pathol Lab Med. 2018;1379(9)The HER2 assay has not been validated on decalcified tissues. Given the possibility of false negative results on decalcified specimens, results should be interpreted with caution. Performed By: #### L [id number] ####[facility] [id number] [facility] [place] [address] [place] BREAST TUMOR GRADE Grade 2 Normal [facility] Comment on above: Order Comment: Speci men Type: TISSUE SPECIMENOrdering Facility: [facility] Address: [address] [place], [place] [address] Performed By: #### L [id number] ####[facility] [id number] [facility] [address] [place] [address] [place] [facility] CASE NUMBER INVASIVE [id number] [facility] Comment on above: Order Comment: Speci men Type: TISSUE SPECIMENOrdering Facility: [facility] Address: [address] [place], [place] [address] Performed By: #### L [id number] ####[facility] [id number] [facility] [address] [place] [address] [place] COLD ISCHEMIA TIME >1 Hour Normal [facility] Comment on above: Order Comment: Speci men Type: TISSUE SPECIMENOrdering Facility: [facility] Address: [address] [place], [place] [address] Performed By: #### L [id number] ####[facility] [id number] [address] [place] [address] [place] ESTROGEN RECEPTOR (% TUMOR STAINING) <1 [facility] Comment on above: Order Comment: Speci men Type: TISSUE SPECIMENOrdering Facility: [facility] Address: [address] [place] [address] Performed By: #### L [id number] ####[facility] [id number] [facility] [address] [place] [address] [place] ESTROGEN RECEPTOR (STAINING INTENSITY) Not Applicable [facility] Comment on above: Order Comment: Speci men Type: TISSUE SPECIMENOrdering Facility: [facility] Address: [address] [place], [place] [address] Performed By: #### L [id number] ####[facility] [id number] [place] [id number] [facility] OF [place] ESTROGEN RECEPTOR EXTERNAL CONTROL Present and Stained as Expected [facility] Comment on above: Order Comment: Speci men Type: TISSUE SPECIMENOrdering Facility: [facility] Address: [address] [place] [address] Performed By: #### L [id number] ####[facility] [id number] [address] OF [facility] ESTROGEN RECEPTOR INTERNAL CONTROL Present and Stained as Expected [facility] Comment on above: Order Comment: Speci men Type: TISSUE SPECIMENOrdering Facility: [facility] Address: [address] [place] [address] Performed By: #### L [id number] ####[facility] [id number] [place] [id number] [place] ESTROGEN RECEPTOR STATUS (INVASIVE) Negative [facility] Comment on above: Order Comment: Speci men Type: TISSUE SPECIMENOrdering Facility: [facility] Address: [address] [place] [address] Performed By: #### L [id number] ####[facility] [id number] [place] [id number] [place] FINAL PERFORMING LAB [facility] Comment on above: Order Comment: Speci men Type: TISSUE SPECIMENOrdering Facility: [facility] Address: [address] [place], [place] [address] Result Comment: Diag nostic interpretation performed at: [facility], [address] [place], [place] [id number] CLIA# [id number] Director: Harrison Le MDElectronically signed out by: Moris Jain MD, PhD Performed By: #### L [id number] ####[facility] [id number] [address] [place] [address] [place] FIXATIVE Formalin, 10% Neutra l Buffered [facility] Comment on above: Order Comment: Speci men Type: TISSUE SPECIMENOrdering Facility: [facility] Address: [address] [place], [place] [address] Performed By: #### L [id number] ####[facility] [id number] [address] [place] [address] [place] HER2 SCORE 2+ [facility] Comment on above: Order Comment: Speci men Type: TISSUE SPECIMENOrdering Facility: [facility] Address: [address] [place] [address] Performed By: #### L [id number] ####[facility] [id number] [address], [facility]95 [place] HER2 STATUS (INVASIVE) Equivocal for HER2 Overexpression [facility] Comment on above: Order Comment: Speci men Type: TISSUE SPECIMENOrdering Facility: [facility] Address: [address] [place] [address] Performed By: #### L [id number] ####[facility] [id number] [address], [facility] [place] PROGESTERONE RECEPTOR (% TUMOR STAINING) <1 [facility] Comment on above: Order Comment: Speci men Type: TISSUE SPECIMENOrdering Facility: [facility] Address: [address] [place] [address] Performed By: #### L [id number] ####[facility] [id number] [place] [id number] [place] PROGESTERONE RECEPTOR (STAINING INTENSITY) Not Applicable [facility] Comment on above: Order Comment: Speci men Type: TISSUE SPECIMENOrdering Facility: [facility] Address: [address] [place], [place] [address] Performed By: #### L [id number] ####[facility] [id number] [address] [place] [address] [place] PROGESTERONE RECEPTOR EXTERNAL CONTROL Present and Stained as Expected [facility] Comment on above: Order Comment: Speci men Type: TISSUE SPECIMENOrdering Facility: [facility] Address: [address] [place], [place] [address] Performed By: #### L [id number] ####[facility] [id number] [address] [place] [address] [place] PROGESTERONE RECEPTOR INTERNAL CONTROL Present and Stained as Expected [facility] Comment on above: Order Comment: Speci men Type: TISSUE SPECIMENOrdering Facility: [facility] Address: [address] [place] [address] Performed By: #### L [id number] ####[facility] [id number] [address], [facility]95 [place] PROGESTERONE RECEPTOR STATUS (INVASIVE) Negative [facility] Comment on above: Order Comment: Speci men Type: TISSUE SPECIMENOrdering Facility: [facility] Address: [address] [place], [place] [address] Performed By: #### L [id number] ####[facility] [id number] [address] [place] [address] [place] TOTAL FIXATION TIME >6 and <72 Hours [facility] Comment on above: Order Comment: Speci men Type: TISSUE SPECIMENOrdering Facility: [facility] Address: [address] [place], [place] [id number] Performed By: #### L [id number] ####[facility] [id number] [address] [address] [place] TUMOR TYPE (INVASIVE) Primary Invasive B reast Carcinoma [facility] Comment on above: Order Comment: Speci men Type: TISSUE SPECIMENOrdering Facility: [facility] Address: [address] [place], [place] [id number] Performed By: #### L [id number] ####[facility] [id number] [place] [address] [place] WAS SPECIMEN DECALCIFIED No [facility] Comment on above: Order Comment: Speci men Type: TISSUE SPECIMENOrdering Facility: [facility] Address: [address] [place] [address] Performed By: #### L [id number] ####[facility] [id number] [place] [address] [place] CNOVon 12-01-2024 CNOV [facility] FISH FOR HER-2on 12-01-2024 FISH FOR HER-2 FISH for HER2 [facility] Comment on above: Order Comment: Speci men Type: TISSUE SPECIMENOrdering Facility: [facility] Address: [address] [place] [address] Result Comment: Elen gabriel Accession Number: [id number]: [id number]/Part ID: [id number] Type: FFPETSample Description: LEFT BREAST, CORE BIOPSY, invasive carcinomaReceived Date: 12/08/2024HER2 (ERBB2) Status by FISH: Non amplifiedINTERPRETATION:NEGATIVE for HER2 (ERBB2) GENE AMPLIFICATIONNumber of cells counted: 40Number of observers: 2Average HER2 (ERBB2) signal copy number per cell: 3.1Average CEP17 signal copy number per cell: 2.0HER2 (ERBB2)/CEP17 ratio: 1.6Fixative: 10% neutral buffered formalinFixation Time: >6 and <72 hoursCold Ischemic time: <1 hourMeets ASCO/CAP guidelines for fixative and fixation times: yesThese results should be interpreted with caution if the above pre-analytical values do not meet the ASCO/CAP guidelines for tissuefixation and handling. Tissue sections for HER2 (ERBB2) analysisshould not be used if cut > 6 weeks prior to testing.Reference ranges (2018 ASCO/CAP guidelines):HER2 (ERBB2) non amplified: HER2(ERBB2)/ CEP 17 ratio < 2.0 with <4.0HER2 (ERBB2) signals/cell (Group 5)HER2 (ERBB2) amplified: HER2(ERBB2)/ CEP 17 ratio is >/= 2.0 with >/=4.0 HER2 (ERBB2) signals/cell (Group 1)Nomenclature: nuc jazmin([id number],ERBB2)x2~3[]METHODOLOGY:HER2 (ERBB2) gene amplification was manually evaluated on paraffin-embedded tissue by interphase fluorescence in situ hybridization(FISH), using a dual color probe set for the HER2 (ERBB2) locus [id number] and the centromeric region of chromosome 17 (PathVysion; [employer],[place], [place]). The [facility]Labor[facility] has validated modifications of thePathVysion kit used for the testing, including the use of TargetRetrieval Solution and Proteinase K (Dako ([place]); [place]) forcell conditioning, and modified probe/target denaturation andhybridization conditions for the assay. Internal and external(amplified and non-amplified) controls are evaluated. The in situhybridization analysis was performed and correlated with preselectedareas of invasive carcinoma deemed adequate for analysis by apathologist.The HER2 (ERBB2) assay was developed, validated, and reported inaccordance with guidelines published by the [place] Society ofClinical Oncology (ASCO) and the College of [place] Pathologists(CAP) (Fransisco WESTBROOK, et al. J Clin Oncol. 2018. PMID: 32610317); and,Recommendations for Human Epidermal Growth Factor Receptor 2 Testingin Breast Cancer: [place] Society of Clinical Oncology/College ofAmerican Pathologists Clinical Practice Guideline Focused Update(2018).The assay has been validated on tissues decalcified in EDTA only. Aswith all decalcified specimens, the results should be interpreted withcaution given the likelihood of false negativity on these specimens.Negative results should, therefore, be interpreted with caution forspecimens not meeting the ASCO/CAP guidelines.DISCLAIMER:This test was developed and its performance characteristics determinedby [facility]'s Pathology and Laboratory Medicine Department. Ithas not been cleared or approved by the FDA. [facility]'s[facility] is regulated under CLIAas qualified to perform high-complexity testing. This test is used forclinical purposes. It should not be regarded as investigational or forresearch.Test performed at [facility], [address] [place] [address], [place]. CLIA Number: [id number] performed by Bin Huerta MD Performed By: #### H ER2F ####[facility] MIKEY [id number] [place] [id number] [place] JAMIE DIAGNOSTIC LTon 12-02-19 25 JAMIE DIAGNOSTIC LT Normal [facility] MG Breast - left Diagnostic for implanton 12-01-2024 [...] Sav Kenyon M.D. Electronically signed on: 12/01/2024 Catheter Finisher And Inspector: ZEHRA Transcribe Date/Time: Dec 01 2024 2:44P Dictated by: SAV KENYON MD This examination was interpreted and the report reviewed and electronically signed by: SAV KENYON MD on Dec 01 2024 4:03PM [facility] * * *Final Report* * * DATE OF EXAM: Dec 01 2024 3:34PM [facility] 0621 - [facility] DIAGNOSTIC LT / PROCEDURE REASON: Mass of upper inner quadrant of left breast * * * * Physician Interpretation * * * * RESULT: [place] [address] #[id number] - [facility] DIAGNOSTIC LT HISTORY: 69 year-old patient seen [...] obscure small masses. DIVISION OF RADIOLOGY Provider, Quan Moore - 12/01/2024 * * *Final Report* * * DATE OF EXAM: Dec 01 2024 3:34PM [facility] 0621 - [facility] DIAGNOSTIC LT / PROCEDURE REASON: Mass of upper inner quadrant of left breast * * * * Physician Interpretation * * * * RESULT: [place] [address] #[id number] - [facility] DIAGNOSTIC LT HISTORY: 69 year-old patient seen [...] Sav Kenyon M.D. Electronically signed on: 12/01/2024 Catheter Finisher And Inspector: ZEHRA Transcribe Date/Time: Dec 01 2024 2:44P Dictated by: SAV KENYON MD This examination was interpreted and the report reviewed and electronically signed by: SAV KENYON MD on Dec 01 2024 4:03PM EST [facility] Radiology Study observation (narrative) [facility] MG Breast - left Diagnostic for implantOrdered By: Cc Provider on 12-01-2024 [facility] Pathology biopsy report Adolfo (Tiss)on 12-01-2024 ADDENDUM 1: Normal [facility] Comment on above: Order Comment: Speci men Type: TISSUE SPECIMENOrdering Facility: [facility] Address: [address] [place] [address] Result Comment: An i mmunohistochemical stain for androgen receptor (performed on block A1) is negative in the tumor cells, arguing against true apocrine differentiation.Addendum electronically signed by Moris Jian MD, PhD on 12/07/2024 at 1543 EDT Performed By: #### 6 6121-5 ####[facility] [id number] [place] [address] [place] AP DISCLAIMER Normal [facility] Comment on above: Order Comment: Speci men Type: TISSUE SPECIMENOrdering Facility: [facility] Address: [address] [place] [address] Result Comment: Elen gabriel Developed Test (LDT) Disclaimer:Performance characteristics of immunohistochemical, immunofluorescent, and chromogenic in-situ hybridization tests have been determined by the performing laboratory within [facility]'s [facility] Pathology and Laboratory Medicine Department ([facility], [facility], [facility], [facility], [facility], [facility], or [facility]) in a manner consistent with CLIA requirements. One or more of these tests may not have been cleared or approved by the FDA. [facility] is regulated under CLIA as qualified to perform high-complexity testing. These tests are used for clinical purposes. These should not be regarded as investigational or for research. Positive and negative controls stain appropriately. Performed By: #### 6 6121-5 ####[facility] [id number] [place] [address] [place] CASE REPORT Normal [facility] Comment on above: Order Comment: Speci men Type: TISSUE SPECIMENOrdering Facility: [facility] Address: [address] [place] [address] Result Comment: Surg ical Pathology Report Case: [id number] Provider: Elisabet Hirsch DO Collected: 12/01/2024 01:56 PMOrdering Location: General Surgery Received: 12/02/2024 08:57 AMPathologist: Moris Jain MD, PhDSpecimen: Breast, Left, Core Biopsy Performed By: #### 6 6121-5 ####[facility] [id number] [place] [address] [place] CLINICAL HISTORY Left breast mass Normal [facility] Comment on above: Order Comment: Speci men Type: TISSUE SPECIMENOrdering Facility: [facility] Address: [address] [place] [address] Performed By: #### 6 6121-5 ####[facility] [id number] [address] [place] DIAGNOSIS COMMENT Normal [facility] Comment on above: Order Comment: Speci men Type: TISSUE SPECIMENOrdering Facility: [facility] Address: [address] [place] [address] Result Comment: The biopsy shows an invasive carcinoma composed of scattered nests and short cords of tumor cells with ample eosinophilic granular cytoplasm and pleomorphic, hyperchromatic nuclei with prominent nucleoli in a background of fibrous tissue with a prominent lymphocytic infiltrate.The following immunohistochemical stains were performed on block A1 and evaluated in the tumor cells:- Keratin AE1/3: Positive- CAM5.2: Positive- GATA3: Positive- SOX10: Negative- ER: Negative- p63: No definite myoepithelial cell staining (scattered tumor cell staining noted)The findings are consistent with an invasive carcinoma with apocrine features, which measures up to 9.5 mm in this limited material.Results of quantitative ER, CA, and HER2 testing will follow in a linked report.Dr. Amanda Valencia has also reviewed this case and agrees with the diagnosis. 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 at 1554 EDT Performed By: #### 6 6121-5 ####[facility] [id number] [place] [address] [place] FINAL PERFORMING LAB Normal [facility] Comment on above: Order Comment: Speci men Type: TISSUE SPECIMENOrdering Facility: [facility] Address: [address] [place] [address] Result Comment: Diag nostic interpretation performed at: [facility], [address] [place] [address] CLIA# [id number] Director: Harrison Le MD Performed By: #### 6 6121-5 ####[facility] LABIA [id number] [address] GROSS DESCRIPTION Normal [facility] Comment on above: Order Comment: Speci men Type: TISSUE SPECIMENOrdering Facility: [facility] Address: [address] [place] [address] Result Comment: A. B reast, Left, Core BiopsyReceived in formalin on Telfa gauze labeled as [...] specified. Totally submitted in formalin in one cassette.CL December 02, 2024 5:37 PMGross examination performed at [facility], [address] [place] [address] Performed By: #### 6 6121-5 ####[facility] [id number] [place] [id number] [place] US BREAST BIOPSY LEFT (POC) SURG USE ONLYon 12-01-2024 [facility] MA MAMMOGRAM DIAGNOSTIC BILA TERAL W/TOMOon 11-26-2024 MA MAMMOGRAM DIAGNOSTIC BILATERAL W/FABRIZIO ORIGINAL FROM: MIRNA [address] [place], [place] [address] PROCEDURE FOR: LIZ ROBLES [address] [place] [place] [address] Home: PID#: [id number] Exam#: [id number] : 1955 Age: 69 TO: BABITA MORATAYA PEANUT SHAKER [address] [place], [place] [address] Fax: NO FAX EXAMINATION: DIAGNOSTIC BILATERAL MAMMOGRAM [...] 11/26/2024 10:55:33 AM Ordering Provider: BABITA MORATAYA Hotel Controller: DELONTE KO RT (R)(M) letter sent: Abnormal-Needs additional work up BI-RADS 0 Mammogram BI-RADS: 0 Indeterminate Normal [facility] US BREAST LEFT LIMITEDon US BREAST LEFT LIMITED ORIGINAL FROM: [facility] [address] [place], [place] [address] PROCEDURE FOR: LIZ ROBLES [address] [place] [address] Home: PID#: [id number] Exam#: [id number] : 1955 Age: 69 TO: BABITA MORATAYA [employer]AN[employer] SHAKER [address] [place], [place] [address] Fax: NO FAX EXAMINATION: ULTRASOUND OF THE [...] 11/26/2024 10:58:22 AM Ordering Provider: BABITA MORATAYA Hotel Controller: LIZ MCKENNA [facility] letter sent: Biopsy Recommended BI-RADS 4 and 5 Ultrasound BI-RADS: 4 Suspicious for malignancy Normal [facility] .GFRon 11-10-2024 Estimated Glomerular Filtration Rate 76 ml/min/1.73sqm Normal [facility] Comment on above: Result Comment: Stages [...] #### G FR, CMP, LIPID ####[address] [place], [place] [address] CMPon 11-10-2024 Albumin Level 3.9 G/dL Normal 3.4-4.8 [facility] Comment on above: Performed By: #### Rosario FR, CMP, LIPID ####[address] [place] [place], [place] [address] Albumin/Globulin [Mass ratio] 1.2 {ratio} Normal 1.1-2.5 [facility] Comment on above: Performed By: #### G FR, CMP, LIPID ####[address] [place] [place], [place] [address] ALP [Catalytic activity/Vol] 71 U/L Normal 40-135 [facility] Comment on above: Performed By: #### G FR, CMP, LIPID ####[address] [place] [place], [place] [address] ALT [Catalytic activity/Vol] 39 U/L Normal 14-59 [facility] Comment on above: Performed By: #### G FR, CMP, LIPID ####[address] [place], [place] [address] AST [Catalytic activity/Vol] 22 U/L Normal 10-40 [facility] Comment on above: Performed By: #### Rosario FR, CMP, LIPID ####[address] [place], [place] [address] Bili Total 0.9 mg/dL Normal 0.2-1.0 [facility] Comment on above: Result Comment: Use of this assay is not recommended for patients undergoing treatment with eltrombopag due to the potential for falsely elevated results. Performed By: #### Rosario BETANCOURT CMP, LIPID ####[address] [place] [place], [place] [address] BUN/Creatinine Ratio 16 ratio Normal 7-27 [facility] Comment on above: Performed By: #### Rosario BETANCOURT CMP, LIPID ####[address] [place], [place] [address] Calcium [Mass/Vol] 9.8 mg/dL Normal 8.4-10.2 [facility] Comment on above: Performed By: #### Rosario BETANCOURT CMP, LIPID ####[address] [address] Chloride [Moles/Vol] 106 mmol/L Normal 98-107 [facility] Comment on above: Performed By: #### Rosario BETANCOURT CMP, LIPID ####[address] [place], [place] [address] CO2 [Moles/Vol] 30 mmol/L Normal 23-31 [facility] Comment on above: Performed By: #### Rosario BETANCOURT CMP, LIPID ####[address] [address] Creatinine [Mass/Vol] 0.83 mg/dL Normal 0.55-1.02 [facility] Comment on above: Result Comment: Test ing performed on Siemens Dimension EXL analyzer using a modified kinetic Christiana technique. Performed By: #### Rosario FR, CMP, LIPID ####[address] [place], [place] [address] Electrolyte Balance 6.0 mEq/L Normal 4.0-15.0 [facility] Comment on above: Performed By: #### Rosario FR, CMP, LIPID ####[address] [place], [place] [address] Globulin 3.3 G/dL Normal 1.5-3.8 [facility] Comment on above: Performed By: #### G FR, CMP, LIPID ####[address] [place], [place] [address] Glucose [Mass/Vol] 106 mg/dL Normal 83-110 [facility] Comment on above: Performed By: #### G FR, CMP, LIPID ####[address] [place], [place] [address] Potassium [Moles/Vol] 4.7 mmol/L Normal 3.5-5.1 [facility] Comment on above: Performed By: #### G FR, CMP, LIPID ####[address] [place], [place] [address] Sodium [Moles/Vol] 142 mmol/L Normal 136-145 [facility] Comment on above: Performed By: #### G FR, CMP, LIPID ####[address] [place], [place] [address] Total Protein 7.2 G/dL Normal 6.4-8.2 [facility] Comment on above: Performed By: #### G FR, CMP, LIPID ####[address] [place], [place] [address] Urea nitrogen [Mass/Vol] 13 mg/dL Normal 7-18 [facility] Comment on above: Performed By: #### G FR, CMP, LIPID ####[address] [place], [place] [address] LIPIDon 11-10-2024 Cholesterol [Mass/Vol] 300 mg/dL High 0-200 [facility] Comment on above: Result Comment: Chol esterol Reference Interval: Less than 200 Desirable 200-239 Borderline high risk 240 and above High risk Performed By: #### G FR, CMP, LIPID ####[address] [place], [place] [address] Cholesterol in HDL [Mass/Vol] 65 mg/dL High 40-60 [facility] Comment on above: Performed By: #### G FR, CMP, LIPID ####[address] [place], [place] [address] Cholesterol in LDL [Mass/Vol] 205 mg/dL High 0-130 [facility] Comment on above: Performed By: #### G FR, CMP, LIPID ####[address] [place], [place] [address] Triglyceride [Mass/Vol] 149 mg/dL Normal 0-150 [facility] Comment on above: Result Comment: Trig lyceride Reference Interval: Less than 150 Normal 150-199 Borderline high risk 200-499 High risk 500 or higher Very high risk Performed By: #### G FR, CMP, LIPID ####[address] [place], [place] [address] Coronary Angiography CTon Coronary Angiography CT [facility] Imaging Services [address] [place] [address] 06/28/24 0811 MR#: [id number] Acct: [id number] Name: LIZ ROBLES Rep #: [id number] : 1955 69 From: Swapnil Vargas MD [...] atherosclerotic plaquing. No significant obstruction present. [] 06/28/24 0813 Date Swapnil Vargas MD Cosigner Signature (if applicable): Date CC: ENERGY AND SUSTAINABILITY MANAGER-C Babita Morataya; Dr. Swapnil Vargas MD; Dr. Sukhi Pizano MD Signed Normal [facility] CREATININE FINGERSTICKon CREATININE WB < 1.0 Normal 0.55-1.02 [facility] Comment on above: Performed By: #### L 9100.0200 #### [facility] Laboratory [address] [place], [address] EGFR WB > 60.0000 Normal >60 [facility] Comment on above: Performed By: #### L 9100.0200 #### [facility] Laboratory [address] [place], [address] Cardiac Onl yon 06-25-[address] Cardiac Only [facility] [address] [place] [address] Cardiac Only MR#: [id number] Acct: [id number] Name: LIZ ROBLES Rep #: [id number] : 1955 F 69 From: Partha stern MD PCP: YEISON Vargas Status: REG CLI Study: Limited Chest CT Cardiac Only Date of Exam: Exam# [id number] Ordering Dr: Sukhi Pizano MD [id number] STUDY: CT CHEST WITH CONTRAST REASON FOR [...] Signed: Partha Wilkins MD at 9:09 EST Reading Location ID and State: [facility] / [place] , Service support , CC: YEISON Morataya; Dr. Sukhi Pizano MD Catheter Finisher And Inspector: Signed Normal [facility] .Auto Diffon 06-18-2024 Basophil, Absolute 0.0 10 3/mcL Normal 0.0-0.2 [facility] Comment on above: Performed By: #### G FR, CMP, TSH, ANEU, MG, VIDH, ADIFF, CBC #### [facility] [address] [place], [place] [address] #### B12 #### [facility] [address] [place] [address] Basophils/100 WBC (Bld) 0.8 % Normal 0.0-2.5 [facility] Comment on above: Performed By: #### G FR, CMP, TSH, ANEU, MG, VIDH, ADIFF, CBC #### [place] [address] #### B12 #### [address] [address] Eosinophil, Absolute 0.1 10 3/mcL Normal 0.0-0.7 [facility] Comment on above: Performed By: #### G FR, CMP, TSH, ANEU, MG, VIDH, ADIFF, CBC #### [place] [address] #### B12 #### [address] [address] Eosinophils/100 WBC (Bld) 2.1 % Normal 0.0-7.0 [facility] Comment on above: Performed By: #### G FR, CMP, TSH, ANEU, MG, VIDH, ADIFF, CBC #### [place] [address] #### B12 #### [address] [address] Lymphocyte, Absolute 2.0 10 3/mcL Normal 0.9-4.3 [facility] Comment on above: Performed By: #### G FR, CMP, TSH, ANEU, MG, VIDH, ADIFF, CBC #### [place] [address] #### B12 #### [address] [address] Lymphocytes/100 WBC (Bld) 42.8 % High 20.0-40.0 [facility] Comment on above: Performed By: #### G FR, CMP, TSH, ANEU, MG, VIDH, ADIFF, CBC #### [place] [address] #### B12 #### [address] [address] Monocyte, Absolute 0.4 10 3/mcL Normal 0.1-1.4 [facility] Comment on above: Performed By: #### G FR, CMP, TSH, ANEU, MG, VIDH, ADIFF, CBC #### [address] [address] #### B12 #### [address] [address] Monocytes/100 WBC (Bld) 7.8 % Normal 2.0-13.0 [facility] Comment on above: Performed By: #### G FR, CMP, TSH, ANEU, MG, VIDH, ADIFF, CBC #### [address] [address] #### B12 #### [address] [address] Neutrophils/100 WBC (Bld) 46.5 % Low 50.0-75.0 [facility] Comment on above: Performed By: #### G FR, CMP, TSH, ANEU, MG, VIDH, ADIFF, CBC #### [address] [address] #### B12 #### [address] [address] .GFRon 06-18-2024 GFR Non- 64 ml/min/1.73sqm Normal [facility] Comment on above: Result Comment: GFR [...] TSH, ANEU, MG, VIDH, ADIFF, CBC #### [address] [address] #### B12 #### [address] [address] GFR 78 ml/min/1.73sqm Normal [facility] Comment on above: Result Comment: GFR [...] TSH, ANEU, MG, VIDH, ADIFF, CBC #### [address] [address] #### B12 #### [place] [address] .NEUABSon 06-18-2024 Neutrophil, Absolute 2.2 10 3/mcL Low 2.3-8.1 [facility] Comment on above: Performed By: #### G FR, CMP, TSH, ANEU, MG, VIDH, ADIFF, CBC #### [address] [address] #### B12 #### [address] [address] B12on 06-18-2024 Cobalamin (Vitamin B12) [Mass/Vol] 280 pg/mL Normal 211-911 [facility] Comment on above: Performed By: #### G FR, CMP, TSH, ANEU, MG, VIDH, ADIFF, CBC ####[address] [address]#### B12 ####[address] [address] CBCon 06-18-2024 Erythrocyte distribution width (RBC) [Ratio] 11.8 % Normal 11.5-15.5 [facility] Comment on above: Performed By: #### G FR, CMP, TSH, ANEU, MG, VIDH, ADIFF, CBC #### [place] [address] #### B12 #### [place] [address] Hematocrit (Bld) [Volume fraction] 43.7 % Normal 34.0-46.0 [facility] Comment on above: Performed By: #### G FR, CMP, TSH, ANEU, MG, VIDH, ADIFF, CBC #### [place] [address] #### B12 #### [place] [address] Hgb 15.0 G/dL Normal 12.0-16.0 [facility] Comment on above: Performed By: #### G FR, CMP, TSH, ANEU, MG, VIDH, ADIFF, CBC #### [place] [address] #### B12 #### [place] [address] MCH (RBC) [Entitic mass] 33.6 pg High 27.0-33.0 [facility] Comment on above: Performed By: #### G FR, CMP, TSH, ANEU, MG, VIDH, ADIFF, CBC #### [place] [address] #### B12 #### [place] [address] MCHC 34.3 G/dL Normal 32.0-36.0 [facility] Comment on above: Performed By: #### G FR, CMP, TSH, ANEU, MG, VIDH, ADIFF, CBC #### [place] [address] #### B12 #### [place] [address] MCV (RBC) [Entitic vol] 97.9 fL Normal 80.0-99.0 [facility] Comment on above: Performed By: #### G FR, CMP, TSH, ANEU, MG, VIDH, ADIFF, CBC #### [place] [address] #### B12 #### [place] [address] Platelet 211 10 3/mcL Normal 150-450 [facility] Comment on above: Performed By: #### G FR, CMP, TSH, ANEU, MG, VIDH, ADIFF, CBC #### [place] [address] #### B12 #### [place] [address] Platelet mean volume (Bld) [Entitic vol] 8.7 fL Normal 6.6-10.5 [facility] Comment on above: Performed By: #### G FR, CMP, TSH, ANEU, MG, VIDH, ADIFF, CBC #### [place] [address] #### B12 #### [place] [address] RBC 4.47 10 6/mcL Normal 4.10-5.30 [facility] Comment on above: Performed By: #### G FR, CMP, TSH, ANEU, MG, VIDH, ADIFF, CBC #### [place] [address] #### B12 #### [place] [address] WBC 4.8 10 3/mcL Normal 4.5-10.8 [facility] Comment on above: Performed By: #### G FR, CMP, TSH, ANEU, MG, VIDH, ADIFF, CBC #### [place] [address] #### B12 #### [place] [address] CMPon 06-18-2024 Albumin Level 4.1 G/dL Normal 3.4-4.8 [facility] Comment on above: Performed By: #### G FR, CMP, TSH, ANEU, MG, VIDH, ADIFF, CBC #### [place] [address] #### B12 #### [place] [address] Albumin/Globulin [Mass ratio] 1.4 {ratio} Normal 1.1-2.5 [facility] Comment on above: Performed By: #### G FR, CMP, TSH, ANEU, MG, VIDH, ADIFF, CBC #### [place] [address] #### B12 #### [place] [address] ALP [Catalytic activity/Vol] 78 U/L Normal 40-135 [facility] Comment on above: Performed By: #### G FR, CMP, TSH, ANEU, MG, VIDH, ADIFF, CBC #### [place] [address] #### B12 #### [place] [address] ALT [Catalytic activity/Vol] 52 U/L Normal 14-59 [facility] Comment on above: Performed By: #### G FR, CMP, TSH, ANEU, MG, VIDH, ADIFF, CBC #### [place] [address] #### B12 #### [place] [address] AST [Catalytic activity/Vol] 24 U/L Normal 10-40 [facility] Comment on above: Performed By: #### G FR, CMP, TSH, ANEU, MG, VIDH, ADIFF, CBC #### [place] [address] #### B12 #### [place] [address] Bili Total 0.6 mg/dL Normal 0.2-1.0 [facility] Comment on above: Result Comment: Use of this assay is not recommended for patients undergoing treatment with eltrombopag due to the potential for falsely elevated results. Performed By: #### G FR, CMP, TSH, ANEU, MG, VIDH, ADIFF, CBC #### [place] [address] #### B12 #### [address] [address] BUN/Creatinine Ratio 16 ratio Normal 7-27 [facility] Comment on above: Performed By: #### G FR, CMP, TSH, ANEU, MG, VIDH, ADIFF, CBC #### [place] [address] #### B12 #### [place] [address] Calcium [Mass/Vol] 9.8 mg/dL Normal 8.4-10.2 [facility] Comment on above: Performed By: #### G FR, CMP, TSH, ANEU, MG, VIDH, ADIFF, CBC #### [place] [address] #### B12 #### [place] [address] Chloride [Moles/Vol] 105 mmol/L Normal 98-107 [facility] Comment on above: Performed By: #### G FR, CMP, TSH, ANEU, MG, VIDH, ADIFF, CBC #### [place] [address] #### B12 #### [place] [address] CO2 [Moles/Vol] 32 mmol/L High 23-31 [facility] Comment on above: Performed By: #### G FR, CMP, TSH, ANEU, MG, VIDH, ADIFF, CBC #### [place] [address] #### B12 #### [place] [id number] Creatinine [Mass/Vol] 0.87 mg/dL Normal 0.55-1.02 [facility] Comment on above: Result Comment: Test ing performed on Siemens Dimension EXL analyzer using a modified kinetic Christiana technique. Performed By: #### G FR, CMP, TSH, ANEU, MG, VIDH, ADIFF, CBC #### [address] [address] #### B12 #### [address] [address] Electrolyte Balance 4.0 mEq/L Normal 4.0-15.0 [facility] Comment on above: Performed By: #### G FR, CMP, TSH, ANEU, MG, VIDH, ADIFF, CBC #### [place] [address] #### B12 #### [address] [address] Globulin 2.9 G/dL Normal [facility] Comment on above: Performed By: #### G FR, CMP, TSH, ANEU, MG, VIDH, ADIFF, CBC #### [place] [address] #### B12 #### [address] [address] Glucose [Mass/Vol] 105 mg/dL Normal 83-110 [facility] Comment on above: Performed By: #### G FR, CMP, TSH, ANEU, MG, VIDH, ADIFF, CBC #### [address] [address] #### B12 #### [address] [address] Potassium [Moles/Vol] 4.3 mmol/L Normal 3.5-5.1 [facility] Comment on above: Performed By: #### G FR, CMP, TSH, ANEU, MG, VIDH, ADIFF, CBC #### [place] [address] #### B12 #### [address] [address] Sodium [Moles/Vol] 141 mmol/L Normal 136-145 [facility] Comment on above: Performed By: #### G FR, CMP, TSH, ANEU, MG, VIDH, ADIFF, CBC #### [address] [address] #### B12 #### [address] [address] Total Protein 7.0 G/dL Normal 6.4-8.2 [facility] Comment on above: Performed By: #### G FR, CMP, TSH, ANEU, MG, VIDH, ADIFF, CBC #### [address] [address] #### B12 #### [place] [address] Urea nitrogen [Mass/Vol] 14 mg/dL Normal 7-18 [facility] Comment on above: Performed By: #### G FR, CMP, TSH, ANEU, MG, VIDH, ADIFF, CBC #### [address] [address] #### B12 #### [place] [address] LABORATORYOrdered By: SYSTEM SYSTEM on 06-18-2024 Natriuretic [...] 06-18-2024 Magnesium [Mass/Vol] 2.2 mg/dL Normal 1.8-2.4 [facility] Comment on above: Performed By: #### G FR, CMP, TSH, ANEU, MG, VIDH, ADIFF, CBC #### [place] [address] [place], [place] [address] #### B12 #### [address] [address] PBNPon 06-18-2024 Natriuretic peptide B (Bld) [Mass/Vol] 20 pg/mL Normal 0-125 [facility] Comment on above: Result Comment: NT-p roBNP results of less than 300 pg/mL effectively rules out acute congestive heart failure with 99% negative predictive value. Performed By: #### P BNP ####[address] [address] TSHon 06-18-2024 TSH Qn 2.76 m[IU]/L Normal 0.36-3.74 [facility] Comment on above: Performed By: #### G FR, CMP, TSH, ANEU, MG, VIDH, ADIFF, CBC #### [address] [address] #### B12 #### [place] [address] VIDHon 06-18-2024 Vit. D 25-Hydroxy 34.7 ng/mL Normal [facility] Comment on above: Result Comment: Inte rpretive Values Based on Total 25(OH) Vitamin D: Deficient <20 ng/mL Insufficient 20 - <30 ng/mL Sufficient 30-100 ng/mL Performed By: #### G FR, CMP, TSH, ANEU, MG, VIDH, ADIFF, CBC #### [address] [address] #### B12 #### [place] [address] .GFRon 05-28-2024 GFR Non- 60 ml/min/1.73sqm Normal [facility] Comment on above: Result Comment: GFR [...] square meters Performed By: #### C RP ####[place] [address]#### GFR, BMP, PBNP ####[facility] [place], [place] [address] GFR 73 ml/min/1.73sqm Normal [facility] Comment on above: Result Comment: GFR [...] mL/min/1.73 square meters Performed By: #### C [facility] ####[place] [address]#### GFR, BMP, PBNP ####[place] [address] [place], [place] [address] BMPon 05-28-2024 BUN/Creatinine Ratio 17 ratio Normal 7-27 [facility] Comment on above: Performed By: #### C RP ####[place] [address]#### GFR, BMP, PBNP ####[facility] [place], [place] [address] Calcium [Mass/Vol] 9.8 mg/dL Normal 8.4-10.2 [facility] Comment on above: Performed By: #### C RP ####[place] [address]#### GFR, BMP, PBNP ####[facility] [place], [place] [address] Chloride [Moles/Vol] 103 mmol/L Normal 98-107 [facility] Comment on above: Performed By: #### C RPHS ####[place] [address]#### GFR, BMP, PBNP ####[place] [address] [place], [place] [address] CO2 [Moles/Vol] 30 mmol/L Normal 23-31 [facility] Comment on above: Performed By: #### C RPHS ####[place] [address]#### GFR, BMP, PBNP ####[place] [address] [place] [id number] Creatinine [Mass/Vol] 0.92 mg/dL Normal 0.55-1.02 [facility] Comment on above: Result Comment: Test ing performed on Siemens Dimension EXL analyzer using a modified kinetic Christiana technique. Performed By: #### C RPHS ####[place] [address]#### GFR, BMP, PBNP ####[address] [address] Electrolyte Balance 7.0 mEq/L Normal 4.0-15.0 [facility] Comment on above: Performed By: #### C RPHS ####[place] [address]#### GFR, BMP, PBNP ####[place] [address] [place], [place] [address] Glucose [Mass/Vol] 115 mg/dL High 83-110 [facility] Comment on above: Performed By: #### C RPHS ####[place] [address]#### GFR, BMP, PBNP ####[facility] [place] [id number] Potassium [Moles/Vol] 4.7 mmol/L Normal 3.5-5.1 [facility] Comment on above: Performed By: #### C RPHS ####[place] [address]#### GFR, BMP, PBNP ####[facility] [place] [phone] Sodium [Moles/Vol] 140 mmol/L Normal 136-145 [facility] Comment on above: Performed By: #### C RP ####[place] [address]#### GFR, BMP, PBNP ####[place] [address] [place] [address] Urea nitrogen [Mass/Vol] 16 mg/dL Normal 7-18 [facility] Comment on above: Performed By: #### C RP ####[place] [address]#### GFR, BMP, PBNP ####[place] [address] [place] [id number] CRPHSon 05-28-2024 CRP, High Sensitive 0.81 mg/L Normal 0.20-3.00 [facility] Comment on above: Result Comment: Rela tive Risk Category and Average hs-CRP Level: Higher Risk: > 5.0 mg/L Guidelines support that hs-CRP can be used as an independent predictor of increased coronary risk; however, hs-CRP results should only be interpreted in conjunction with other cardiac risk factors in establishing overall cardiac risk for a given patient. Performed By: #### C RP ####[place] [address]#### GFR, BMP, PBNP ####[place] [address] [place] [address] LABORATORYOrdered By: SYSTEM SYSTEM on 05-28-2024 Calcium [...] B (Bld) [Mass/Vol] 21 pg/mL Normal 0-125 [facility] Comment on above: Result Comment: NT-p roBNP results of less than 300 pg/mL effectively rules out acute congestive heart failure with 99% negative predictive value. Performed By: #### C RPHS ####[address] [address]#### GFR, BMP, PBNP ####[facility] [place] [address] .Auto Diffon 11-05-2023 Basophil, Absolute 0.0 10 3/mcL Normal 0.0-0.2 [facility] ([place]) Comment on above: Performed By: #### T SH, CBC, GFR, LIPID, FT4, CMP, ADIFF, ANEU #### [place] [address] [place], [place] [address] #### E2, FSH #### [address] [address] Basophils/100 WBC (Bld) 0.7 % Normal 0.0-2.5 [facility] ([place]) Comment on above: Performed By: #### T SH, CBC, GFR, LIPID, FT4, CMP, ADIFF, ANEU #### [place] [address] #### E2, FSH #### [address] [address] Eosinophil, Absolute 0.2 10 3/mcL Normal 0.0-0.4 [facility] ([place]) Comment on above: Performed By: #### T SH, CBC, GFR, LIPID, FT4, CMP, ADIFF, ANEU #### [place] [address] #### E2, FSH #### [address] [address] Eosinophils/100 WBC (Bld) 4.0 % Normal 0.0-7.0 [facility] ([place]) Comment on above: Performed By: #### T SH, CBC, GFR, LIPID, FT4, CMP, ADIFF, ANEU #### [place] [address] #### E2, FSH #### [address] [address] Lymphocyte, Absolute 2.3 10 3/mcL Normal 0.8-3.9 [facility] ([place]) Comment on above: Performed By: #### T SH, CBC, GFR, LIPID, FT4, CMP, ADIFF, ANEU #### [place] [address] #### E2, FSH #### [address] [address] Lymphocytes/100 WBC (Bld) 42.2 % Normal 10.0-50.0 [facility] ([place]) Comment on above: Performed By: #### T SH, CBC, GFR, LIPID, FT4, CMP, ADIFF, ANEU #### [place] [address] #### E2, FSH #### [address] [address] Monocyte, Absolute 0.5 10 3/mcL Normal 0.2-1.0 [facility] ([place]) Comment on above: Performed By: #### T SH, CBC, GFR, LIPID, FT4, CMP, ADIFF, ANEU #### [address] [address] #### E2, FSH #### [address] [address] Monocytes/100 WBC (Bld) 9.3 % Normal 1.7-13.0 [facility] ([place]) Comment on above: Performed By: #### T SH, CBC, GFR, LIPID, FT4, CMP, ADIFF, ANEU #### [address] [address] #### E2, FSH #### [address] [address] Neutrophils/100 WBC (Bld) 43.8 % Normal 37.0-80.0 [facility] ([place]) Comment on above: Performed By: #### T SH, CBC, GFR, LIPID, FT4, CMP, ADIFF, ANEU #### [address] [address] #### E2, FSH #### [address] [address] .GFRon 11-05-2023 GFR Non- 68 ml/min/1.73sqm Normal [facility] ([place]) Comment on above: Result Comment: GFR Population [...] GFR, LIPID, FT4, CMP, ADIFF, ANEU #### [address] [address] #### E2, FSH #### [address] [address] GFR 83 ml/min/1.73sqm Normal [facility] ([place]) Comment on above: Result Comment: GFR Population [...] GFR, LIPID, FT4, CMP, ADIFF, ANEU #### [address] [address] #### E2, FSH #### [address] [address] .NEUABSon 11-05-2023 Neutrophil, Absolute 2.4 10 3/mcL Low 2.9-6.2 [facility] ([place]) Comment on above: Performed By: #### T SH, CBC, GFR, LIPID, FT4, CMP, ADIFF, ANEU #### [address] [address] #### E2, FSH #### [address] [address] CBCon 11-05-2023 Erythrocyte distribution width (RBC) [Ratio] 12.1 % Normal 11.5-14.5 [facility] ([place]) Comment on above: Performed By: #### T SH, CBC, GFR, LIPID, FT4, CMP, ADIFF, ANEU #### [address] [address] #### E2, FSH #### [address] [address] Hematocrit (Bld) [Volume fraction] 43.9 % Normal 37.0-47.0 [facility] ([place]) Comment on above: Performed By: #### T SH, CBC, GFR, LIPID, FT4, CMP, ADIFF, ANEU #### [place] [address] #### E2, FSH #### [place] [address] Hgb 15.4 G/dL Normal 12.0-16.0 [facility] ([place]) Comment on above: Performed By: #### T SH, CBC, GFR, LIPID, FT4, CMP, ADIFF, ANEU #### [place] [address] #### E2, FSH #### [place] [address] MCH (RBC) [Entitic mass] 33.3 pg High 27.0-31.2 [facility] ([place]) Comment on above: Performed By: #### T SH, CBC, GFR, LIPID, FT4, CMP, ADIFF, ANEU #### [place] [address] #### E2, FSH #### [place] [address] MCHC 35.0 G/dL Normal 33.0-37.0 [facility] ([place]) Comment on above: Performed By: #### T SH, CBC, GFR, LIPID, FT4, CMP, ADIFF, ANEU #### [place] [address] #### E2, FSH #### [place] [address] MCV (RBC) [Entitic vol] 95.0 fL High 80.0-94.0 [facility] ([place]) Comment on above: Performed By: #### T SH, CBC, GFR, LIPID, FT4, CMP, ADIFF, ANEU #### [place] [address] #### E2, FSH #### [address] [address] Platelet 241 10 3/mcL Normal 130-400 [facility] ([place]) Comment on above: Performed By: #### T SH, CBC, GFR, LIPID, FT4, CMP, ADIFF, ANEU #### [place] [address] #### E2, FSH #### [place] [address] Platelet mean volume (Bld) [Entitic vol] 8.1 fL Normal 7.4-10.4 [facility] ([place]) Comment on above: Performed By: #### T SH, CBC, GFR, LIPID, FT4, CMP, ADIFF, ANEU #### [place] [address] #### E2, FSH #### [place] [address] RBC 4.62 10 6/mcL Normal 4.20-5.40 [facility] ([place]) Comment on above: Performed By: #### T SH, CBC, GFR, LIPID, FT4, CMP, ADIFF, ANEU #### [place] [address] #### E2, FSH #### [place] [address] WBC 5.5 10 3/mcL Normal 4.6-10.8 [facility] ([place]) Comment on above: Performed By: #### T SH, CBC, GFR, LIPID, FT4, CMP, ADIFF, ANEU #### [place] [address] #### E2, FSH #### [place] [address] CMPon 11-05-2023 Albumin Level 3.7 G/dL Normal 3.4-4.8 [facility] ([place]) Comment on above: Performed By: #### T SH, CBC, GFR, LIPID, FT4, CMP, ADIFF, ANEU #### [place] [address] #### E2, FSH #### [place] [address] Albumin/Globulin [Mass ratio] 1.1 {ratio} Normal 1.1-2.5 [facility] ([place]) Comment on above: Performed By: #### T SH, CBC, GFR, LIPID, FT4, CMP, ADIFF, ANEU #### [place] [address] #### E2, FSH #### [place] [address] ALP [Catalytic activity/Vol] 77 U/L Normal 40-135 [facility] ([place]) Comment on above: Performed By: #### T SH, CBC, GFR, LIPID, FT4, CMP, ADIFF, ANEU #### [place] [address] #### E2, FSH #### [place] [address] ALT [Catalytic activity/Vol] 42 U/L Normal 14-59 [facility] ([place]) Comment on above: Performed By: #### T SH, CBC, GFR, LIPID, FT4, CMP, ADIFF, ANEU #### [place] [address] #### E2, FSH #### [place] [address] AST [Catalytic activity/Vol] 21 U/L Normal 10-40 [facility] ([place]) Comment on above: Performed By: #### T SH, CBC, GFR, LIPID, FT4, CMP, ADIFF, ANEU #### [place] [address] #### E2, FSH #### [place] [address] Bili Total 0.7 mg/dL Normal 0.2-1.0 [facility] ([place]) Comment on above: Result Comment: Use of this assay is not recommended for patients undergoing treatment with eltrombopag due to the potential for falsely elevated results. Performed By: #### T SH, CBC, GFR, LIPID, FT4, CMP, ADIFF, ANEU #### [address] [address] #### E2, FSH #### [address] [address] BUN/Creatinine Ratio 24 ratio Normal 7-27 [facility] ([place]) Comment on above: Performed By: #### T SH, CBC, GFR, LIPID, FT4, CMP, ADIFF, ANEU #### [place] [address] #### E2, FSH #### [address] [address] Calcium [Mass/Vol] 9.7 mg/dL Normal 8.4-10.2 [facility] ([place]) Comment on above: Performed By: #### T SH, CBC, GFR, LIPID, FT4, CMP, ADIFF, ANEU #### [place] [address] #### E2, FSH #### [place] [address] Chloride [Moles/Vol] 105 mmol/L Normal 98-107 [facility] ([place]) Comment on above: Performed By: #### T SH, CBC, GFR, LIPID, FT4, CMP, ADIFF, ANEU #### [address] [address] #### E2, FSH #### [place] [address] CO2 [Moles/Vol] 30 mmol/L Normal 23-31 [facility] ([place]) Comment on above: Performed By: #### T SH, CBC, GFR, LIPID, FT4, CMP, ADIFF, ANEU #### [place] [address] #### E2, FSH #### [address] [address] Creatinine [Mass/Vol] 0.83 mg/dL Normal 0.55-1.02 [facility] ([place]) Comment on above: Performed By: #### T SH, CBC, GFR, LIPID, FT4, CMP, ADIFF, ANEU #### [place] [address] #### E2, FSH #### [address] [address] Electrolyte Balance 10.0 mEq/L Normal 4.0-15.0 [facility] ([place]) Comment on above: Performed By: #### T SH, CBC, GFR, LIPID, FT4, CMP, ADIFF, ANEU #### [place] [address] #### E2, FSH #### [address] [address] Globulin 3.4 G/dL Normal [facility] ([place]) Comment on above: Performed By: #### T SH, CBC, GFR, LIPID, FT4, CMP, ADIFF, ANEU #### [place] [address] #### E2, FSH #### [address] [address] Glucose [Mass/Vol] 107 mg/dL Normal 80-115 [facility] ([place]) Comment on above: Performed By: #### T SH, CBC, GFR, LIPID, FT4, CMP, ADIFF, ANEU #### [place] [address] #### E2, FSH #### [address] [address] Potassium [Moles/Vol] 4.8 mmol/L Normal 3.5-5.1 [facility] ([place]) Comment on above: Performed By: #### T SH, CBC, GFR, LIPID, FT4, CMP, ADIFF, ANEU #### [place] [address] #### E2, FSH #### [address] [address] Sodium [Moles/Vol] 145 mmol/L Normal 136-145 [facility] ([place]) Comment on above: Performed By: #### T SH, CBC, GFR, LIPID, FT4, CMP, ADIFF, ANEU #### [address] [address] #### E2, FSH #### [place] [address] Total Protein 7.1 G/dL Normal 6.4-8.2 [facility] ([place]) Comment on above: Performed By: #### T SH, CBC, GFR, LIPID, FT4, CMP, ADIFF, ANEU #### [place] [address] #### E2, FSH #### [place] [address] Urea nitrogen [Mass/Vol] 20 mg/dL High 7-18 [facility] ([place]) Comment on above: Performed By: #### T SH, CBC, GFR, LIPID, FT4, CMP, ADIFF, ANEU #### [place] [address] #### E2, FSH #### [place] [address] E2on 11-05-2023 Estradiol Level <11.80 Normal [facility] ([place]) Comment on above: Result Comment: No te - New Reference Range in effect 20 Adult Female E2 Reference Ranges: Follicular phase 19.5 - 144.2 pg/mL Midcycle 63.9 - 356.7 pg/mL Luteal phase 55.8 - 214.2 pg/mL Post menopausal 0 - 33.2 pg/mL Performed By: #### T SH, CBC, GFR, LIPID, FT4, CMP, ADIFF, ANEU #### [place] [id number] #### E2, FSH #### [place] [address] FSHon 11-05-2023 FSH 64.9 mIU/mL Normal [facility] ([place]) Comment on above: Result Comment: Adul t Female FSH Reference Ranges (07/04/99): Follicular phase 2.5 - 10.2 mIU/mL Midcycle phase 3.4 - 33.4 mIU/mL Luteal phase 1.5 - 9.1 mIU/mL Post menopausal 23.0 -116.3 mIU/mL Adult Male: 1.4 - 18.1 mIU/mL Performed By: #### T SH, CBC, GFR, LIPID, FT4, CMP, ADIFF, ANEU #### [address] [address] #### E2, FSH #### [place] [id number] FT4on 11-05-2023 Free T4 [Mass/Vol] 0.92 ng/dL Normal 0.76-1.46 [facility] ([place]) Comment on above: Performed By: #### T SH, CBC, GFR, LIPID, FT4, CMP, ADIFF, ANEU #### [address] [address] #### E2, FSH #### [place] [address] LABORATORYOrdered By: SYSTEM SYSTEM on 11-05-2023 Albumin [...] ADM SS Comment on above: Interpretive Data: Paula garcialyceride Reference Interval: Less than 150 Normal 150-199 Borderline high risk 200-499 High risk 500 or higher Very high risk LIPIDon 11-05-2023 Cholesterol [Mass/Vol] 291 mg/dL High 0-200 [facility] ([place]) Comment on above: Result Comment: Chol esterol Reference Interval: Less than 200 Desirable 200-239 Borderline high risk 240 and above High risk Performed By: #### T SH, CBC, GFR, LIPID, FT4, CMP, ADIFF, ANEU #### [address] [address] #### E2, FSH #### [address] [address] Cholesterol in HDL [Mass/Vol] 52 mg/dL Normal 40-60 [facility] ([place]) Comment on above: Performed By: #### T SH, CBC, GFR, LIPID, FT4, CMP, ADIFF, ANEU #### [address] [address] #### E2, FSH #### [address] [address] Cholesterol in LDL [Mass/Vol] 202 mg/dL High 0-130 [facility] ([place]) Comment on above: Performed By: #### T SH, CBC, GFR, LIPID, FT4, CMP, ADIFF, ANEU #### [address] [address] #### E2, FSH #### [address] [address] Triglyceride [Mass/Vol] 184 mg/dL High 0-150 [facility] ([place]) Comment on above: Result Comment: Trig lyceride Reference Interval: Less than 150 Normal 150-199 Borderline high risk 200-499 High risk 500 or higher Very high risk Performed By: #### T SH, CBC, GFR, LIPID, FT4, CMP, ADIFF, ANEU #### [address] [address] #### E2, FSH #### [address] [address] TSHon 11-05-2023 TSH Qn 3.01 m[IU]/L Normal 0.36-3.74 [facility] ([place]) Comment on above: Performed By: #### T SH, CBC, GFR, LIPID, FT4, CMP, ADIFF, ANEU #### [place] [address] [place], [place] [address] #### E2, FSH #### [place] [address] XR SPINE LUMBAR W/OBLIQUES 4 VIEWSon 06-12-2023 [...] Date: 06/12/2023 8:32:32 AM Ordering Provider: TIMUR Dunn [facility] ([place]) LABORATORYOrdered By: SYSTEM SYSTEM on 12-02-2022 25-hydroxyvitamin D3 [Mass/Vol] 43.3 ng/mL Invalid Interpretation Code AO ADM SS VIDHon 12-02-2022 Vit. D 25-Hydroxy 43.3 ng/mL Normal [facility] ([place]) Comment on above: Result Comment: Inte rpretive Values Based on Total 25(OH) Vitamin D: Deficient <20 ng/mL Insufficient 20 - <30 ng/mL Sufficient 30-100 ng/mL Performed By: #### T SH, CBC, GFR, LIPID, FT4, CMP, ADIFF, ANEU #### [place] [address] [place], [place] [address] #### E2, FSH #### [facility] [address] [place] [address] [place] MAMMOGRAM SCREENING BILAT ERAL W/TOMOon 11-08-2022 MA MAMMOGRAM SCREENING BILATERAL W/FABRIZIO ORIGINAL FROM: [facility] [address] [place], [place] [address] PROCEDURE FOR: LIZ ROBLES [address] [place] [address] Home: PID#: [id number] Exam#: [id number] : 1955 Age: 67 TO: BABITA MORATAYA PEANUT SHAKER [address] [place] [id number] Fax: NO FAX EXAMINATION: SCREENING DIGITAL BILATERAL [...] 11/07/2022 11:16:26 PM Ordering Provider: BABITA MORATAYA Hotel Controller: JERRI MACIAS RT (R) (M) (CT) letter sent: Normal BI-RADS 1 and 2 Mammogram BI-RADS: 2 Benign Normal [facility] ([place]) BD BONE DENSITY DEXA AXIAL S [facility] 11-06-2022 BD BONE DENSITY DEXA AXIAL SKELETON [...] Date: 11/06/2022 1:38:35 PM Ordering Provider: BABITA MORATAYA [facility] ([place]) LABORATORYOrdered By: SYSTEM SYSTEM on 10-10-2022 Albumin [...] Time Vital Sign Value Performing Clinician Facility 03-18-2025 12:40-0400 Body temperature 97.2 [degF] Babita LATHAM Work Phone: [facility] 03-18-2025 12:40-0400 Diastolic blood pressure 57 mm[Hg] Babita Morataya ENERGY AND SUSTAINABILITY MANAGER-C Work Phone: [facility] 03-18-2025 12:40-0400 Heart rate 82 /min Babita Rafia ENERGY AND SUSTAINABILITY MANAGER-C Work Phone: [facility] 03-18-2025 12:40-0400 Respiratory rate 16 /min Babita Rafia ENERGY AND SUSTAINABILITY MANAGER-C Work Phone: [facility] 03-18-2025 12:40-0400 SaO2% (BldA) [Mass fraction] 99 % Babita Rafia ENERGY AND SUSTAINABILITY MANAGER-C Work Phone: [facility] 03-18-2025 12:40-0400 Systolic blood pressure 95 mm[Hg] Babita Rafia ENERGY AND SUSTAINABILITY MANAGER-C Work Phone: [facility] 03-18-2025 10:43-0400 Body height 165.1 cm Babita Morataya ENERGY AND SUSTAINABILITY MANAGER-C Work Phone: [facility] 03-18-2025 10:43-0400 Body mass index (BMI) [Ratio] 27.8 kg/m2 Babita Rafia ENERGY AND SUSTAINABILITY MANAGER-C Work Phone: [facility] 03-18-2025 10:43-0400 Body weight 76 kg Babita Ageekelvin ENERGY AND SUSTAINABILITY MANAGER-C Work Phone: [facility] 03-14-2025 10:11-0400 Body mass index (BMI) [Ratio] 27.96 kg/m2 Orville Marci DO Work Phone: [facility] 03-14-2025 10:11-0400 Body temperature 97.3 [degF] Orville Masci DO Work Phone: [facility] 03-14-2025 10:11-0400 Body weight 76.2 kg Orville Masci DO Work Phone: [facility] 03-14-2025 10:11-0400 Diastolic blood pressure 72 mm[Hg] Orville Trani DO Work Phone: [facility] 03-14-2025 10:11-0400 Heart rate 96 /min Orville Martinez DO Work Phone: [facility] 03-14-2025 10:11-0400 SaO2% (BldA) [Mass fraction] 99 % Orville Martinez DO Work Phone: [facility] 03-14-2025 10:11-0400 Systolic blood pressure 127 mm[Hg] Orville Martinez DO Work Phone: [facility] 03-09-2025 10:02-0400 Body mass index (BMI) [Ratio] 27.71 kg/m2 Treatment Wstr Work Phone: [facility] 03-09-2025 10:02-0400 Body temperature 96.91 [degF] Treatment Wstr Work Phone: [facility] 03-09-2025 10:02-0400 Body weight 75.52 kg Treatment Wstr Work Phone: [facility] 03-09-2025 10:02-0400 Diastolic blood pressure 68 mm[Hg] Treatment Wstr Work Phone: [facility] 03-09-2025 10:02-0400 Heart rate 100 /min Treatment Wstr Work Phone: [facility] 03-09-2025 10:02-0400 Respiratory rate 22 /min Treatment Wstr Work Phone: [facility] 03-09-2025 10:02-0400 Systolic blood pressure 128 mm[Hg] Treatment Wstr Work Phone: [facility] 03-07-2025 08:43-0400 Body height 165.1 cm Emilie Lennon MD Work Phone: [facility] 03-07-2025 08:43-0400 Body mass index (BMI) [Ratio] 27.16 kg/m2 Emilie Lennon MD Work Phone: [facility] 03-07-2025 08:43-0400 Body weight 74.03 kg Emilie Lennon MD Work Phone: [facility] 03-07-2025 08:43-0400 Diastolic blood pressure 65 mm[Hg] Emilie Lennon MD Work Phone: [facility] 03-07-2025 08:43-0400 Heart rate 89 /min Emilie Lennon MD Work Phone: [facility] 03-07-2025 08:43-0400 Respiratory rate 16 /min Emilie Lennon MD Work Phone: [facility] 03-07-2025 08:43-0400 SaO2% (BldA) [Mass fraction] 100 % Emilie Lennon MD Work Phone: [facility] 03-07-2025 08:43-0400 Systolic blood pressure 121 mm[Hg] Emilie Lennon MD Work Phone: [facility] 03-02-2025 08:05-0400 Body temperature 97.59 [degF] Treatment Wstr Work Phone: [facility] 03-02-2025 08:05-0400 Diastolic blood pressure 67 mm[Hg] Treatment Wstr Work Phone: [facility] 03-02-2025 08:05-0400 Heart rate 97 /min Treatment Wstr Work Phone: [facility] 03-02-2025 08:05-0400 Respiratory rate 22 /min Treatment Wstr Work Phone: [facility] 03-02-2025 08:05-0400 SaO2% (BldA) [Mass fraction] 100 % Treatment Wstr Work Phone: [facility] 03-02-2025 08:05-0400 Systolic blood pressure 148 mm[Hg] Treatment Wstr Work Phone: [facility] 03-01-2025 09:15-0400 Body mass index (BMI) [Ratio] 28.12 kg/m2 Sonali Love APRN.CNP Work Phone: [facility] 03-01-2025 09:15-0400 Body temperature 98.29 [degF] Sonali Love APRN.CNP Work Phone: [facility] 03-01-2025 09:15-0400 Body weight 76.66 kg Sonali Love [employer] Work Phone: [facility] 03-01-2025 09:15-0400 Diastolic blood pressure 74 mm[Hg] Sonali Love ELECTRICIAN [employer]EARCH.[employer] Work Phone: [facility] 03-01-2025 09:15-0400 Heart rate 100 /min Sonali Love ELECTRICIAN [employer]EARCH.[employer] Work Phone: [facility] 03-01-2025 09:15-0400 SaO2% (BldA) [Mass fraction] 100 % [place] Love ELECTRICIAN RESEARCH.PEANUT SHAKER Work Phone: [facility] 03-01-2025 09:15-0400 Systolic blood pressure 146 mm[Hg] [place] Love ELECTRICIAN RESEARCH.PEANUT SHAKER Work Phone: [facility] 03-01-2025 08:37-0400 Body mass index (BMI) [Ratio] 28.12 kg/m2 Lab/Port Wstr Work Phone: [facility] 03-01-2025 08:37-0400 Body weight 76.66 kg Lab/Port Wstr Work Phone: [facility] 02-27-2025 10:41-0400 Body temperature 98.4 [degF] Babita Morataya ENERGY AND SUSTAINABILITY MANAGER-C Work Phone: [facility] 02-27-2025 10:41-0400 Diastolic blood pressure 54 mm[Hg] Babiat Morataya ENERGY AND SUSTAINABILITY MANAGER-C Work Phone: [facility] 02-27-2025 10:41-0400 Heart rate 100 /min Babita Morataya ENERGY AND SUSTAINABILITY MANAGER-C Work Phone: [facility] 02-27-2025 10:41-0400 Respiratory rate 17 /min Babita Morataya ENERGY AND SUSTAINABILITY MANAGER-C Work Phone: [facility] 02-27-2025 10:41-0400 SaO2% (BldA) [Mass fraction] 100 % Babita Morataya ENERGY AND SUSTAINABILITY MANAGER-C Work Phone: [facility] 02-27-2025 10:41-0400 Systolic blood pressure 123 mm[Hg] Babita Morataya ENERGY AND SUSTAINABILITY MANAGER-C Work Phone: [facility] 02-27-2025 10:18-0400 Body height 165.1 cm Babita Rafia ENERGY AND SUSTAINABILITY MANAGER-C Work Phone: [facility] 02-23-2025 10:15-0400 Body temperature 97 [degF] Treatment Wstr Work Phone: [facility] 02-23-2025 10:15-0400 Diastolic blood pressure 57 mm[Hg] Treatment Wstr Work Phone: [facility] 02-23-2025 10:15-0400 Heart rate 86 /min Treatment Wstr Work Phone: [facility] 02-23-2025 10:15-0400 Respiratory rate 18 /min Treatment Wstr Work Phone: [facility] 02-23-2025 10:15-0400 SaO2% (BldA) [Mass fraction] 99 % Treatment Wstr Work Phone: [facility] 02-23-2025 10:15-0400 Systolic blood pressure 118 mm[Hg] Treatment Wstr Work Phone: [facility] 02-22-2025 14:35-0400 Body mass index (BMI) [Ratio] 27.96 kg/m2 Emilie Lennon MD Work Phone: [facility] 02-22-2025 14:35-0400 Body weight 76.2 kg Emilie Lennon MD Work Phone: [facility] 02-22-2025 14:35-0400 Diastolic blood pressure 70 mm[Hg] Emilie Lennon MD Work Phone: [facility] 02-22-2025 14:35-0400 Systolic blood pressure 104 mm[Hg] Emilie Lennon MD Work Phone: [facility] 02-16-2025 10:54-0400 Body mass index (BMI) [Ratio] 27.37 kg/m2 Treatment Wstr Work Phone: [facility] 02-16-2025 10:54-0400 Body temperature 97.39 [degF] Treatment Wstr Work Phone: [facility] 02-16-2025 10:54-0400 Body weight 74.62 kg Treatment Wstr Work Phone: [facility] 02-16-2025 10:54-0400 Diastolic blood pressure 71 mm[Hg] Treatment Wstr Work Phone: [facility] 02-16-2025 10:54-0400 Heart rate 83 /min Treatment Wstr Work Phone: [facility] 02-16-2025 10:54-0400 SaO2% (BldA) [Mass fraction] 99 % Treatment Wstr Work Phone: [facility] 02-16-2025 10:54-0400 Systolic blood pressure 145 mm[Hg] Treatment Wstr Work Phone: [facility] 02-09-2025 07:00-0400 Body temperature 97.11 [degF] Treatment Wstr Work Phone: [facility] 02-09-2025 07:00-0400 Diastolic blood pressure 75 mm[Hg] Treatment Wstr Work Phone: [facility] 02-09-2025 07:00-0400 Heart rate 76 /min Treatment Wstr Work Phone: [facility] 02-09-2025 07:00-0400 Systolic blood pressure 116 mm[Hg] Treatment Wstr Work Phone: [facility] 02-08-2025 11:05-0400 Body mass index (BMI) [Ratio] 26.96 kg/m2 Sonali Love ELECTRICIAN RESEARCH.PEANUT SHAKER Work Phone: [facility] 02-08-2025 11:05-0400 Body temperature 98.2 [degF] Sonali Love ELECTRICIAN RESEARCH.PEANUT SHAKER Work Phone: [facility] 02-08-2025 11:05-0400 Body weight 73.48 kg Sonali Love ELECTRICIAN RESEARCH.PEANUT SHAKER Work Phone: [facility] 02-08-2025 11:05-0400 Diastolic blood pressure 79 mm[Hg] Sonali Love ELECTRICIAN RESEARCH.PEANUT SHAKER Work Phone: [facility] 02-08-2025 11:05-0400 Heart rate 84 /min Sonali Love ELECTRICIAN RESEARCH.PEANUT SHAKER Work Phone: [facility] 02-08-2025 11:05-0400 SaO2% (BldA) [Mass fraction] 100 % [place] Love ELECTRICIAN RESEARCH.PEANUT SHAKER Work Phone: [facility] 02-08-2025 11:05-0400 Systolic blood pressure 144 mm[Hg] Sonali Love ELECTRICIAN RESEARCH.PEANUT SHAKER Work Phone: [facility] 02-08-2025 10:28-0400 Body mass index (BMI) [Ratio] 27.04 kg/m2 Lab/Port Wstr Work Phone: [facility] 02-08-2025 10:28-0400 Body weight 73.71 kg Lab/Port Wstr Work Phone: [facility] Comment on above: pt weighed this AM 02-01-2025 10:00-0400 Body temperature 97.39 [degF] Treatment Wstr Work Phone: [facility] 02-01-2025 10:00-0400 Diastolic blood pressure 70 mm[Hg] Treatment Wstr Work Phone: [facility] 02-01-2025 10:00-0400 Heart rate 75 /min Treatment Wstr Work Phone: [facility] 02-01-2025 10:00-0400 SaO2% (BldA) [Mass fraction] 100 % Treatment Wstr Work Phone: [facility] 02-01-2025 10:00-0400 Systolic blood pressure 120 mm[Hg] Treatment Wstr Work Phone: [facility] 02-01-2025 09:51-0400 Body mass index (BMI) [Ratio] 27.62 kg/m2 Treatment Wstr Work Phone: [facility] 02-01-2025 09:51-0400 Body weight 75.3 kg Treatment Wstr Work Phone: [facility] 01-25-2025 11:25-0400 Diastolic blood pressure 74 mm[Hg] Treatment Wstr Work Phone: [facility] 01-25-2025 11:25-0400 Heart rate 76 /min Treatment Wstr Work Phone: [facility] 01-25-2025 11:25-0400 Respiratory rate 14 /min Treatment Wstr Work Phone: [facility] 01-25-2025 11:25-0400 SaO2% (BldA) [Mass fraction] 96 % Treatment Wstr Work Phone: [facility] 01-25-2025 11:25-0400 Systolic blood pressure 121 mm[Hg] Treatment Wstr Work Phone: [facility] 01-25-2025 08:35-0400 Body mass index (BMI) [Ratio] 27.29 kg/m2 Treatment Wstr Work Phone: [facility] 01-25-2025 08:35-0400 Body weight 74.39 kg Treatment Wstr Work Phone: [facility] 01-25-2025 08:00-0400 Body temperature 97.39 [degF] Treatment Wstr Work Phone: [facility] 01-18-2025 08:00-0400 Body temperature 97.2 [degF] Treatment Wstr Work Phone: [facility] 01-18-2025 08:00-0400 Diastolic blood pressure 80 mm[Hg] Treatment Wstr Work Phone: [facility] 01-18-2025 08:00-0400 Heart rate 64 /min Treatment Wstr Work Phone: [facility] 01-18-2025 08:00-0400 Systolic blood pressure 123 mm[Hg] Treatment Wstr Work Phone: [facility] 01-18-2025 07:00-0400 Body mass index (BMI) [Ratio] 27.54 kg/m2 Treatment Wstr Work Phone: [facility] 01-18-2025 07:00-0400 Body weight 75.07 kg Treatment Wstr Work Phone: [facility] 01-06-2025 11:37-0400 Body height 165.1 cm Kimmie Colby DO Work Phone: [facility] 01-06-2025 11:37-0400 Body mass index (BMI) [Ratio] 27.26 kg/m2 Kimmie Lasha DO Work Phone: [facility] 01-06-2025 11:37-0400 Body weight 74.3 kg Kimmie Gardunoente DO Work Phone: [facility] 01-04-2025 13:49-0400 Body height 165.8 cm Orville Trani DO Work Phone: [facility] 01-04-2025 13:49-0400 Body mass index (BMI) [Ratio] 27.74 kg/m2 Orville Marci DO Work Phone: [facility] 01-04-2025 13:49-0400 Body temperature 97.81 [degF] Orville Masci DO Work Phone: [facility] 01-04-2025 13:49-0400 Body weight 76.2 kg Orville Masci DO Work Phone: [facility] 01-04-2025 13:49-0400 Diastolic blood pressure 71 mm[Hg] Orville Masci DO Work Phone: [facility] 01-04-2025 13:49-0400 Heart rate 87 /min Orville Masci DO Work Phone: [facility] 01-04-2025 13:49-0400 SaO2% (BldA) [Mass fraction] 97 % Orville Masci DO Work Phone: [facility] 01-04-2025 13:49-0400 Systolic blood pressure 141 mm[Hg] Orville Masci DO Work Phone: [facility] 12-13-2024 09:30-0400 Body mass index (BMI) [Ratio] 27.96 kg/m2 Sara Avalos MD Work Phone: [facility] 12-13-2024 09:30-0400 Body temperature 97.2 [degF] Sara Avalos MD Work Phone: [facility] 12-13-2024 09:30-0400 Body weight 76.2 kg Sara Avalos MD Work Phone: [facility] 12-13-2024 09:30-0400 Diastolic blood pressure 83 mm[Hg] Sara Avalos MD Work Phone: [facility] 12-13-2024 09:30-0400 Heart rate 86 /min Sara Avalos MD Work Phone: [facility] 12-13-2024 09:30-0400 Respiratory rate 14 /min Sara Avalos MD Work Phone: [facility] 12-13-2024 09:30-0400 SaO2% (BldA) [Mass fraction] 97 % Sara Avalos MD Work Phone: [facility] 12-13-2024 09:30-0400 Systolic blood pressure 140 mm[Hg] Sara Avalos MD Work Phone: [facility] 12-08-2024 10:38-0400 Diastolic blood pressure 75 mm[Hg] Elisabet Finelli DO Work Phone: [facility] 12-08-2024 10:38-0400 Systolic blood pressure 147 mm[Hg] Elisabet Finelli DO Work Phone: [facility] 12-01-2024 12:45-0400 Body height 165.1 cm Elisabet Finelli DO Work Phone: [facility] 12-01-2024 12:45-0400 Body mass index (BMI) [Ratio] 27.42 kg/m2 Elisabet Finelli DO Work Phone: [facility] 12-01-2024 12:45-0400 Body temperature 98.01 [degF] Elisabet Finelli DO Work Phone: [facility] 12-01-2024 12:45-0400 Body weight 74.75 kg Elisabet Finelli DO Work Phone: [facility] 12-01-2024 12:45-0400 Diastolic blood pressure 82 mm[Hg] Elisabet Finelli DO Work Phone: [facility] 12-01-2024 12:45-0400 SaO2% (BldA) [Mass fraction] 99 % Elisabet Finelli DO Work Phone: [facility] 12-01-2024 12:45-0400 Systolic blood pressure 110 mm[Hg] Elisabet Finelli DO Work Phone: [facility] Encounters Encounter Date Encounter Type Care Provider Facility Start: 03-18-2025 ambulatory Babita Morataya NP Facil ity:[facility] Start: 03-18-2025 End: 03-18-2025 Admission to same day surgery center Dr. 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, estrogen receptor negative (HCC) (Primary Dx); Chemotherapy-induced neuropathy (HCC); Drug rash Start: 03-14-2025 End: 03-14-2025 ambulatory Orville Martinez DO Work Phone: Hematology/Oncology Comment on above: Chemo treatment Start: 03-11-2025 End: 03-11-2025 Telephone encounter Jennifer Burk RN Hematology/Oncology Comment on above: 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 - O ther (Question ) Start: 03-10-2025 End: 03-10-2025 ambulatory Orville Martinez DO Work Phone: Hematology/Oncology Comment on above: Lumps in neck Start: 03-09-2025 End: 03-09-2025 ambulatory Treatment Rm 10 [facility] Work Phone: Hematology/Oncology Comment on above: 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, estrogen receptor negative (HCC) (Primary Dx); Breast cancer, stage 2, left (HCC); Lung nodules; Chemotherapy-induced neutropenia Start: 03-07-2025 End: 03-07-2025 Patient encounter procedure Emilie Lennon MD Work Phone: OB/Gynecology Comment on above: Visit for pre-operat kasey examination (Primary Dx); Chemotherapy-induced neutropenia; Uterine polyp Start: 03-07-2025 End: 03-07-2025 Preprocedural examination done Emilie Lennon MD Work Phone: [facility] Start: 03-07-2025 End: 03-07-2025 ambulatory EMILIE LENNON Facility:[facility] Start: 03-05-2025 End: 03-14-2025 ambulatory Orville Martinez DO Work Phone: Hematology/Oncology Comment on above: Prednisone Start: 03-02-2025 End: 03-02-2025 ambulatory Treatment Rm 1 [facility] Work Phone: Hematology/Oncology Comment on above: 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, estrogen receptor negative (HCC) (Primary Dx) Start: 03-01-2025 End: 03-04-2025 Admission to same day surgery center Emilie Lennon MD Work Phone: OB/Gynecology Comment on above: Surgery Start: 03-01-2025 End: 03-01-2025 Patient encounter procedure Sonali Love APRN.CNP Work Phone: Hematology/Oncology Start: 03-01-2025 End: 03-04-2025 ambulatory Lab/Port [facility] W[facility] Work Phone: Hematology/Oncology Comment on above: 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, estrogen receptor negative (HCC) (Primary Dx); Breast cancer, stage 2, left (HCC); Lung nodules; Malaise and fatigue; Acquired hypothyroidism; Hypoadrenalism (HCC) Gabopratin 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, estrogen receptor negative (HCC) (Primary Dx) Start: 02-27-2025 End: 03-01-2025 ambulatory Orville Martinez DO Work Phone: Hematology/Oncology Comment on above: Gabopratin Start: 02-27-2025 End: 02-27-2025 Emergency department patient visit Babita LATHAM Work Phone: -Emergency Department Work Phone: Start: 02-24-2025 End: 02-24-2025 Telephone encounter Orville Martinez DO Work Phone: Hematology/Oncology Comment on above: Chemotherapy Treatme nt Start: 02-23-2025 End: 02-23-2025 ambulatory Treatment Rm 12 [facility] [employer] Work Phone: Hematology/Oncology Comment on above: 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, estrogen receptor negative (HCC) (Primary Dx); Breast cancer, stage 2, left (HCC); Lung nodules Start: 02-22-2025 End: 02-22-2025 Patient encounter procedure Emilie Lennon MD Work Phone: OB/Gynecology Comment on above: History of breast ca ncer (Primary Dx); Endometrial polyp Start: 02-22-2025 End: 02-22-2025 ambulatory ORVILLE MARTINEZ Facility:[facility] Start: 02-18-2025 End: 02-21-2025 ambulatory Orville Martinez DO Work Phone: Hematology/Oncology Comment on above: Plantar fasciitis Start: 02-18-2025 End: 02-18-2025 Telephone encounter Ying Awan MD Work Phone: OB/Gynecology Comment on above: Appointment Start: 02-16-2025 End: 02-16-2025 ambulatory Treatment Rm 6 [facility] Work Phone: Hematology/Oncology Comment on above: 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, estrogen receptor negative (HCC) (Primary Dx); Breast cancer, stage 2, left (HCC); Lung nodules Start: 02-09-2025 End: 02-09-2025 ambulatory Treatment Rm 1 [facility] Work Phone: Hematology/Oncology Comment on above: 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, estrogen receptor negative (HCC) (Primary Dx) Start: 02-08-2025 End: 02-08-2025 Subsequent hospital visit by physician Xr [facility] Rosy Sanon Work Phone: Radiology Comment on above: 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, estrogen receptor negative (HCC) [C50.212, Z17.1] Start: 02-08-2025 End: 02-08-2025 Patient encounter procedure Sonali Love APRN.CNP Work Phone: Hematology/Oncology Start: 02-08-2025 End: 02-08-2025 ambulatory Lab/Port [facility] Work Phone: Hematology/Oncology Comment on [...] 02-01-2025 End: 02-01-2025 ambulatory Treatment Rm 10 [facility] Work Phone: Hematology/Oncology Comment on above: 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, estrogen receptor negative (HCC) (Primary Dx); Breast cancer, stage 2, left (HCC); Lung nodules Start: 01-26-2025 End: 02-03-2025 Telephone encounter Orville Martinez DO Work Phone: Hematology/Oncology Comment on above: Patient Question Start: 01-25-2025 End: 01-25-2025 [facility] Work Phone: [facility] Comment on above: Triple negative [address] cancer (HCC) (Primary Dx); Malignant neoplasm of upper-inner quadrant of left breast in female, estrogen receptor negative (HCC) Refill Request Start: 01-21-2025 End: 01-21-2025 Telephone encounter Orville Martinez DO Work Phone: Hematology/Oncology Comment on above: Care Coordination (P [facility] at [facility]) Start: 01-19-2025 End: 01-31-2025 Telephone encounter Jennifer Burk RN Hematology/Oncology Comment on above: 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 - O ther (C1D1 Post Treatment Call (Carbo/taxol/keytruda) ) Start: 01-18-2025 End: 01-18-2025 ambulatory [facility] Work Phone: [facility]cology Comment on above: Triple [...] Jennifer Burk RN Hematology/Oncology Comment on above: 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 - O ther (Antiemetic ) Start: 01-14-2025 End: 01-14-2025 post office markup clerk [facility] Work Phone: Hematology/Oncology Comment on above: Encounter for educat ion (Primary Dx) Start: 01-14-2025 End: 01-14-2025 ambulatory ORVILLE MARTINEZ Facility:[facility] Start: 01-14-2025 End: 01-14-2025 Subsequent hospital visit by physician [facility] Work Phone: Radiology Comment on above: Increased endometria l stripe thickness [R93.89] Start: 01-13-2025 End: 01-14-2025 Telephone encounter Orville Martinez DO Work Phone: Hematology/Oncology Comment on above: cooling cap Start: 01-10-2025 End: 01-10-2025 ambulatory NIDIA GUEVARA Facility:[facility] Start: 01-07-2025 ambulatory BABITA MORATAYA Facility :[facility] Start: 01-07-2025 End: 01-07-2025 Subsequent hospital visit by physician Procedure Mammo [facility]ammography Start: 01-06-2025 End: 01-06-2025 ambulatory BABITA MORATAYA Facility:[facility] Start: 01-06-2025 End: 01-06-2025 Patient encounter procedure Kimmie Colby DO Work Phone: [facility] Comment on above: 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, estrogen receptor negative (HCC) (Primary Dx); 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); Enlarged lymph node Start: 01-06-2025 End: 01-06-2025 ambulatory BABITA MORATAYA Facility:[facility] Start: 01-06-2025 ambulatory BABITA RAFIA Facility :[facility] Start: 01-06-2025 End: 01-06-2025 Subsequent hospital visit by physician Mri [employer] [facility] (I-Stat/1.5t) Work Phone: Radiology Comment on above: Lesion of liver grea ter than 1 cm in diameter [K76.9] Start: 01-05-2025 End: 01-05-2025 Telephone encounter Jennifer Burk rug underlay machine operator/Oncology Comment on above: 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 - O ther (Chemo Education appointment ) Appointment 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, estrogen receptor negative (HCC) (Primary Dx) Patient Update Start: 01-05-2025 End: 01-06-2025 ambulatory Orville Martinez DO Work Phone: Hematology/Oncology Comment on above: Office report to Michelle carrasquillo [place] Start: 01-04-2025 End: 01-04-2025 Patient encounter procedure Orville Trae Michelle DO Work Phone: Hematology/Oncology Start: 01-04-2025 End: 01-04-2025 Telephone encounter Noemi Meier RN Work Phone: Hematology/Oncology Comment on above: Care Coordination (I ntroduction) Follow Up Start: 01-04-2025 End: 01-04-2025 ambulatory Orville Trae Michelle DO Work Phone: Hematology/Oncology Comment on above: 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, estrogen receptor negative (HCC) (Primary Dx); Breast cancer, stage 2, left (HCC); Lung nodules Start: 01-04-2025 End: 01-04-2025 Subsequent hospital visit by physician [facility] (1.5t) Radiology Comment on above: 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, estrogen receptor negative (HCC) [C50.212, Z17.1] Start: 12-27-2024 End: 12-27-2024 Telephone encounter Yesi Funez LPN Work Phone: [facility] Comment on above: 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 - O ther Start: 12-21-2024 End: 12-21-2024 E-mail encounter from caregiver Sara Avalos MD Work Phone: Radiation Oncology Start: 12-21-2024 End: 12-21-2024 Patient encounter procedure Sara Avalos MD Work Phone: Radiation Oncology Comment on above: Appointment Request Start: 12-21-2024 End: 01-07-2025 Telephone encounter Elisabet Hirsch DO Work Phone: General Surgery Comment on above: MRI Scheduling ; Cass ointment Start: 12-14-2024 End: 12-14-2024 Emergency department patient visit Room Emergency CT Scan Comment on above: Radiology CT Start: 12-14-2024 End: 12-14-2024 Patient encounter procedure Room Emergency CT Scan Start: 12-14-2024 ambulatory BABITA MORATAYA Facility :[facility] Start: 12-14-2024 End: 12-14-2024 Subsequent hospital visit by physician [facility] (I-Stat) Work Phone: CT Scan Comment on above: 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, estrogen receptor negative (HCC) [C50.212, Z17.1] Start: 12-13-2024 End: 12-13-2024 Telephone encounter Elisabet Hirsch DO Work Phone: General Surgery Start: 12-13-2024 End: 12-13-2024 Patient encounter procedure Sara Avalos MD Work Phone: Radiation Oncology Comment on above: 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, estrogen receptor negative (HCC) (Primary Dx) Start: 12-13-2024 End: 12-13-2024 ambulatory [facility] Facility:[facility] Start: 12-08-2024 End: 12-09-2024 Admission to same day surgery center Elisabet Hirsch DO Work Phone: General Surgery Comment on above: Information from avtar castro's office visit Start: 12-08-2024 End: 12-09-2024 E-mail encounter from caregiver Elisabet Hirsch DO Work Phone: General Surgery Start: 12-08-2024 End: 12-20-2024 Telephone encounter Orville Martinez DO Work Phone: Hematology/Oncology Comment on above: New Patient Start: 12-08-2024 End: 12-08-2024 ambulatory UNKNOWN PROVIDER Facility:[facility] Start: 12-08-2024 End: 12-08-2024 ambulatory [facility] Facility:[facility] Start: 12-08-2024 End: 12-08-2024 Office outpatient visit 40 minutes Elisabet Hirsch DO Work Phone: General Surgery Comment on above: Breast cancer, stage 2, left (HCC) (Primary Dx); Malignant neoplasm of upper-inner quadrant of left breast in female, estrogen receptor negative (HCC); Infiltrating ductal carcinoma of left breast (HCC); Diarrhea, unspecified type Start: 12-01-2024 ambulatory [facility] Facility :[facility] Start: 12-01-2024 End: 12-01-2024 ambulatory BABITA MORATAYA Facility:[facility] Start: 12-01-2024 End: 12-01-2024 Office outpatient new 60 minutes Elisabet Hirsch DO Work Phone: General Surgery Comment on above: Mass of upper inner quadrant of left breast (Primary Dx) Start: 11-26-2024 End: 11-26-2024 ambulatory BABITA MORATAYA ELECTRICIAN RESEARCH-PEANUT SHAKER Facility:[facility] Start: 11-10-2024 End: 11-10-2024 ambulatory BABITA MORATAYA ELECTRICIAN RESEARCH-PEANUT SHAKER Facility:[facility] Start: 10-18-2024 ambulatory BABITA MORATAYA ELECTRICIAN RESEARCH-PEANUT SHAKER Facility:[facility] Start: 10-18-2024 End: 10-18-2024 ambulatory BABITA MORATAYA ELECTRICIAN RESEARCH-PEANUT SHAKER Facility:[facility] Start: 07-23-2024 ambulatory BABITA MORATAYA ELECTRICIAN RESEARCH-PEANUT SHAKER Facility:[facility] Start: 06-28-2024 ambulatory Sukhi Scott y:[email or web address] Start: 06-25-2024 End: 06-25-2024 ambulatory Sukhi Pizano Facility:[facility] Start: 06-18-2024 End: 06-22-[address] SUKHI PIZANO MD Facility:[facility] Start: 06-18-2024 End: 06-22-[address] SUKHI PIZANO MD [facility] Start: 05-28-2024 End: 05-28-[address] SUKHI PIZANO MD Facility:[facility] Start: 05-28-2024 End: 05-28-[address] SUKHI PIZANO MD [facility] Start: 05-28-2024 End: 05-28-[address] SUKHI PIZANO MD Facility:[facility] Start: 05-28-2024 End: 05-28-2024 Patient encounter procedure BABITA RAFIA ELECTRICIAN RESEARCH-PEANUT SHAKER [facility] Start: 05-27-2024 End: 05-27-2024 ambulatory BABITA MORATAYA ELECTRICIAN RESEARCH-PEANUT SHAKER Facility:[facility] Start: 05-27-2024 End: 05-27-2024 Patient encounter procedure BABITA MORATAYA ELECTRICIAN RESEARCH-PEANUT SHAKER [facility] Start: 11-05-2023 End: 11-06-2023 ambulatory BABITA MORATAYA ELECTRICIAN RESEARCH-PEANUT SHAKER Facility:[facility] Start: 11-05-2023 End: 11-05-2023 Patient encounter procedure BABITA MORATAYA ELECTRICIAN RESEARCH-[employer]ANUT SHAKER [facility] Start: 06-09-2023 End: 06-10-2023 ambulatory BABITA MORATAYA ELECTRICIAN RESEARCH-PEANUT SHAKER Facility:[facility] Start: 06-09-2023 End: 06-09-[address] TIMUR MINA [facility] Start: 12-02-2022 End: 12-03-2022 ambulatory BABITA MORATAYA ELECTRICIAN RESEARCH-[employer]ANUT SHAKER Facility:[facility] Start: 12-02-2022 End: 12-02-2022 Patient encounter procedure BABITA MORATAYA ELECTRICIAN RESEARCH-[employer]AN[employer]AKER [facility] Start: 11-06-2022 End: 11-07-2022 ambulatory BABITA MORATAYA ELECTRICIAN RESEARCH-[employer]ANUT SHAKER Facility:[facility] Start: 11-06-2022 End: 11-06-2022 Patient encounter procedure BABITA MORATAYA ELECTRICIAN RESEARCH-[employer]ANUT SHAKER [facility] Start: 10-10-2022 End: 10-10-2022 Patient encounter procedure BABITA MORATAYA ELECTRICIAN RESEARCH-PEANUT SHAKER [facility] Start: 02-14-1984 Evaluation and management of inpatient Babita Rafia ENERGY AND SUSTAINABILITY MANAGER-C Work Phone: - Procedures Date Procedure Procedure Detail Performing Clinician Start: 03-18-2025 Hysteroscopy Babita scott ENERGY AND SUSTAINABILITY MANAGER-C Work Phone: Start: 03-09-2025 Blood count complete auto&auto difrntl wbc Emilie Lennon MD Work Phone: Start: 03-01-2025 Blood count complete auto&auto difrntl wbc Orville Larkin Masci DO Work Phone: Start: 02-23-2025 Blood count complete auto&auto difrntl wbc Orville Larkin Masci DO Work Phone: Start: 02-16-2025 Blood count complete auto&auto difrntl wbc Orville Trae Masci DO Work Phone: Start: 02-08-2025 Radiologic exam ches t 2 views Sonali Love ELECTRICIAN RESEARCHWilliamsPEANUT SHAKER Work Phone: Start: 02-08-2025 Blood count complete auto&auto difrntl wbc Orville Larkin Masci DO Work Phone: Start: 02-01-2025 Blood count complete auto&auto difrntl wbc Orville Larkin Masci DO Work Phone: Start: 01-25-2025 End: 01-25-2025 Basic metabolic panel calcium total Orville Trae Masci DO Work Phone: Start: 01-18-2025 Blood count complete auto&auto difrntl wbc Orville Larkin Masci DO Work Phone: Start: 01-07-2025 Us lmtd joint/oth no nvasc xtr strux r-t w/img Kimmie A Lasha DO Work Phone: Start: 12-01-2024 US BREAST BIOPSY LEF T (POC) SURG USE ONLY Elisabet C Finelli DO Work Phone: Start: 12-01-2024 BREAST MARKERS Elisabet C Finelli DO Work Phone: Start: 12-01-2024 Level iv surg pathol ogy gross&microscopic exam Elisabet C Finelli DO Work Phone: Cataract (disorder) BABITA MORATAYA ELECTRICIAN RESEARCH-[employer]ANUT SHAKER Retinal detachment (disorder) BABITA MORATAYA ELECTRICIAN RESEARCH-PEANUT SHAKER Plan of Treatment Date Care Activity Detail Author Start: 2029 RSV Vaccine (1 - 1-d ose 75+ series) RSV Vaccine (1 - 1-dose 75+ series) [facility] Start: 03-09-2028 Diabetes Screening Diabetes Screenin [facility] Start: 03-01-2028 [facility] Start: 02-24-2028 Diabetes Screening Diabetes Screenin [facility] Start: 02-17-2028 Diabetes Screening Diabetes Screenin [facility] Start: 02-09-2028 [facility] Start: 02-02-2028 Diabetes Screening Diabetes Screenin [facility] Start: 01-26-2028 Diabetes Screening Diabetes Screenin [facility] Start: 01-19-2028 Diabetes Screening Diabetes Screenin [facility] Start: 12-09-2027 [facility] Start: 10-21-2025 Screening for malign ant neoplasm of colon [facility] Start: 05-25-2025 End: 05-25-2025 ambulatory 05/25/2025 10:00 AM [facility] Infusion [facility]Oncology [address] [place] [address] Q3WK TONA/CYTOXAN/KEYTRUDA/N EULASTA/3-4/LAB&OV 05/24* Hematology/Oncology Comment on above: Q3WK TONA/CYTOXAN/K EYTRUDA/NEULASTA/3-4/LAB&OV 05/24* Start: 05-24-2025 End: 05-24-2025 ambulatory Hematology/Oncology Comment on above: (SO)CBC/CMP(S)/MG(S) (PORT)* TSH/T4/CORTISOL EVERY OTHER CYCLE OV(PORT)LAB EARLY/CH EMO 05/25* [facility] Start: 05-04-2025 End: 05-04-2025 ambulatory 05/04/2025 10:00 AM [facility] Infusion Center Hematology/Oncology [address] [place] [address] PT UNAVAILABLE 04/18, Hematology/Oncology Comment on above: PT UNAVAILABLE 04/18, Start: 05-03-2025 End: 05-03-2025 ambulatory Hematology/Oncology Comment on above: (SO)CBC/CMP(S)/MG(S) (PORT)* TSH/T4/CORTISOL EVERY OTHER CYCLE OV(PORT)LAB EARLY/CH EMO 05/04* [facility] Start: 04-14-2025 End: 04-14-2025 ambulatory 04/14/2025 9:30 AM EDT Infusion Center Hematology/Oncology [address] [place] [address] PT UNAVAILABLE 04/18, Hematology/Oncology Comment on above: PT UNAVAILABLE 04/18, Start: 04-13-2025 End: 04-13-2025 ambulatory Hematology/Oncology Comment on above: (SO)CBC/CMP(S)/MG(S) (PORT)* TSH/T4/CORTISOL EVERY OTHER CYCLE OV(PORT)LAB EARLY/CH EMO 04/14* [facility] Start: 04-11-2025 Influenza vaccination [facility] Start: 04-06-2025 End: 04-06-2025 ambulatory Hematology/Oncology Comment on above: (SO)CBC/CMP(S)(PORT) D15 CARBO/TAXOL* (SO)CBC/CMP(S)(PORT) D15 CARBO/TAXOL* . Available and Start: 03-30-2025 End: 03-30-2025 ambulatory 03/30/2025 10:30 AM EDT Infusion Center Hematology/Oncology [address] [place] [address] (SO)CBC/CMP(S)(PORT)D8 CARBO/TAXOL* Hematology/Oncology Comment on above: (SO)CBC/CMP(S)(PORT) D8 CARBO/TAXOL* Start: 03-25-2025 End: 03-25-2025 Patient encounter procedure 03/25/2025 10:50 AM EDT Office Visit OB/Gynecology [address] [place] [id number] Emilie Lennon MD [address] [place] [address] 1 week post-op OB/Gynecology Comment on above: 1 week post-op Start: 03-23-2025 End: 03-23-2025 ambulatory Hematology/Oncology Comment on above: Q3WK CARBO/TAXOL/HERNANDEZ TRUDA/C4-4/LAB&OV 03/22* THEN KEYTRUDA/ONPRO ONLY Q3WK CARBO/TAXOL/HERNANDEZ TRUDA/C4-4/LAB&OV 03/22* Start: 03-22-2025 End: 03-22-2025 ambulatory Hematology/Oncology Comment on above: (SO)CBC/CMP(S)/MG(S) (PORT)* TSH/T4/CORTISOL EVERY OTHER CYCLE OV(PORT)LAB EARLY/CH EMO 03/23* [facility]CI Start: 03-18-2025 Ambulation without limitation [facility] Start: 03-18-2025 Medical regimen orde rs management [facility] Start: 03-18-[address] [facility] Start: 03-18-2025 Patient discharge [facility] Start: 03-18-2025 Procedure discontinued [facility] Start: 03-18-2025 Taking patient vital signs [facility] Start: 03-18-2025 Vital signs measurements [facility] Start: 03-18-2025 [facility] Start: 03-18-2025 End: 03-18-2025 Admission to same day surgery center 03/18/2025 7:45 AM EDT Infusion Center Hematology/Oncology [address] [place] [address] Wstr, Lab/Port [place] [facility] [address] [place], [place] [id number] CBC(PORT)for surgery today with * Hematology/Oncology Comment on above: CBC(PORT)for surgery today with * Start: 03-16-2025 End: 03-16-2025 ambulatory Hematology/Oncology Comment on above: CBC/CMP(PORT)D15 CAR QUENTIN/TAXOL* (SO)CBC/CMP(S)(PORT) D15 CARBO/TAXOL* Start: 03-16-2025 End: 03-16-2025 ambulatory 03/16/2025 8:30 AM EDT Infusion Center Hematology/Oncology [address] [place] [address] (SO)CBC/CMP(S)(PORT)D15 CARBO/TAXOL* Hematology/Oncology Comment on above: (SO)CBC/CMP(S)(PORT) D15 CARBO/TAXOL* Start: 03-14-2025 End: 03-14-2025 ambulatory 03/14/2025 10:00 AM EDT Infusion Center Hematology/Oncology [address] [place] [address] (SO)CBC/CMP(S)(PORT)D15 CARBO/TAXOL* Hematology/Oncology Comment on above: (SO)CBC/CMP(S)(PORT) D15 CARBO/TAXOL* Start: 03-09-2025 End: 03-09-2025 ambulatory Hematology/Oncology Comment on above: CBC/CMP(PORT)D8 CARB O/TAXOL* (SO)CBC/CMP(S)(PORT) D8 CARBO/TAXOL* Start: 03-07-2025 End: 06-06-2025 CBC W Auto Differential panel - Blood COMPLETE BLOOD COUNT AND DIFFERENTIAL Lab Routine Chemotherapy-induced neutropenia Expected: 03/07/2025, Expires: 06/06/2025 [facility] Work Phone: Comment on above: Expected: 03/07/2025 , Expires: 06/06/2025 Start: 03-07-2025 End: 03-07-2025 Patient encounter procedure 03/07/2025 8:45 AM EDT Office Visit OB/Gynecology [address] [place] [address] Emilie Lennon MD [address] [place] [address] surgery 03/18 OB/Gynecology Comment on above: surgery 03/18 Start: 03-04-2025 End: 03-04-2025 Patient encounter procedure 03/04/2025 10:30 AM EDT Office Visit OB/Gynecology [address] [place] [address] Suze Padilla APRN.PEANUT SHAKER [address] [place] [address] Dx: Endometrial polyp [N84.0] OB/Gynecology Comment on above: Dx: Endometrial poly p [N84.0] Start: 03-02-2025 End: 03-02-2025 ambulatory Hematology/Oncology Comment on above: Q3WK CARBO/TAXOL/HERNANDEZ TRUDA/C3-4/LAB&OV 03/01* THEN KEYTRUDA/ONPRO ONLY Q3WK CARBO/TAXOL/HERNANDEZ TRUDA/C3-4/LAB&OV 03/01* HOLD KEYTRUDA DUE TO RASH -PER 03/01 AVS Start: 03-01-2025 End: 03-01-2025 ambulatory Hematology/Oncology Comment on above: CBC/CMP/MAG/TSH/T4/C ORTISOL(PORT)* TSH/T4/CORTISOL EVERY OTHER CYCLE OV(PORT)LAB EARLY/CH EMO 03/02* (SO)CBC/CMP(S)/MG(S) /TSH/T4/CORTISOL(PORT)* TSH/T4/CORTISOL EVERY OTHER CYCLE Start: 02-27-2025 [facility] Start: 02-24-2025 End: 02-24-2025 Patient encounter procedure 02/24/2025 8:30 AM EDT Office Visit OB/Gynecology [address] [address] Ying Awan MD [address] [place] [address] Dx: Endometrial polyp [N84.0] OB/Gynecology Comment on above: Dx: Endometrial poly p [N84.0] Start: 02-23-2025 End: 02-23-2025 ambulatory Hematology/Oncology Comment on above: CBC/CMP(PORT)D15 CAR QUENTIN/TAXOL* (SO)CBC/CMP(S)(PORT) D15 CARBO/TAXOL* Start: 02-22-2025 End: 02-22-2025 Patient encounter procedure 02/22/2025 2:40 PM EDT Office Visit OB/Gynecology [address] [place] [address] Emilie Lennon MD [address] [place] [address] Dx: Endometrial polyp [N84.0] OB/Gynecology Comment on above: Dx: Endometrial poly p [N84.0] Start: 02-16-2025 End: 02-16-2025 ambulatory Hematology/Oncology Comment on above: CBC/CMP(PORT)D8 CARB O/TAXOL* (SO)CBC/CMP(S)(PORT) D8 CARBO/TAXOL* Start: 02-09-2025 End: 02-09-2025 ambulatory 02/09/2025 8:00 AM EDT Infusion Center Hematology/Oncology [address] [place] [address] Q3WK CARBO/TAXOL/KEYTRUDA/C2- 4/LAB&OV 7/1* THEN KEYTRUDA/ONPRO ONLY Hematology/Oncology Comment on above: Q3WK CARBO/TAXOL/HERNANDEZ TRUDA/C2-4/LAB&OV 7/1* THEN KEYTRUDA/ONPRO ONLY Start: 02-08-2025 End: 02-08-2025 ambulatory Hematology/Oncology Comment on above: CBC/CMP/MAG(PORT)* T SH/T4/CORTISOL EVERY OTHER CYCLE OV(PORT)LAB EARLY/CH EMO 7/2* (SO)CBC/CMP(S)/MG(S) (PORT)* TSH/T4/CORTISOL EVERY OTHER CYCLE OV(PORT)LAB EARLY/CH EMO 7/2* [facility] Start: 02-02-2025 End: 02-02-2025 Patient encounter procedure 02/02/2025 11:00 AM EDT Office Visit Plastic Surgery [address] [place] [address] Otis Mokc MD [address] [place] [address] breast ca Plastic Surgery Comment on above: [...] AM EDT Infusion Center Hematology/Oncology [address] [place], [place] [id number] Wstr, 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 [facility] [address] [facility] [place] [place] [id number] CHEMO ED* Hematology/Oncology Comment on above: CHEMO ED* Start: 01-14-2025 End: 01-14-2025 Patient encounter procedure 01/14/2025 7:45 AM EDT Appointment Radiology [address] [facility] [place], [place] [phone] Increased endometrial stripe thickness [R93.89] Radiology Comment on above: Increased endometria l stripe thickness [R93.89] Start: 01-10-2025 End: 01-10-2025 Admission to same day surgery center 01/10/2025 10:30 AM EDT - 01/10/2025 12:[address] [facility] Radiology [address] [place] [address] [place] [address] [facility] , [address] [address] INSERTION PORT VENOUS ACCESS ADULT [facility] Radiology Comment on above: INSERTION PORT VENOU S ACCESS ADULT Start: 01-10-2025 End: 01-10-2025 ambulatory 01/10/2025 10:30 AM EDT [facility] Hematology/Oncology [address] [place] [address] Wstr, 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 [facility] [address] [place] [address] CHEMO ED* Hematology/Oncology Comment on above: CHEMO ED* Start: 01-10-2025 End: 01-10-2025 Insj tunneled ctr vad w/subq port age 4 yr/> INSERTION PORT VENOUS ACCESS ADULT Malignant neoplasm of upper-inner quadrant of left breast in female, estrogen receptor negative (HCC) 01/10/2025 10:30 AM EDT [facility] Start: 01-10-2025 Subsequent hospital visit by physician 01/10/2025 10:30 AM EDT Hospital Encounter [facility] Radiology [address] [place] [address] [place] [address] [facility] , [address] [place] [address] Malignant neoplasm of upper-inner quadrant of left breast in female, estrogen receptor negative (HCC) [C50.212, Z17.1] [facility] Radiology Comment on above: 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, estrogen receptor negative (HCC) [C50.212, Z17.1] Start: 01-07-2025 End: 01-07-2025 Patient encounter procedure Radiology Comment on above: Abnormal finding on radiological examination of breast [R92.8] left US axilla biops y Start: 01-06-2025 End: 01-06-2025 Patient encounter procedure 01/06/2025 3:20 PM EDT Office Visit [facility] [address] [place] [address] [place] [address] [place] [address] breast ca [facility] Comment on above: breast ca Start: 01-06-2025 End: 04-07-2025 NVTA INVITAE HEREDITARY DIAGNOSTIC CANCER PANEL [facility] Work Phone: Comment on above: Expected: 01/06/2025 , Expires: 04/07/2025 Start: 01-06-2025 End: 01-06-2025 Patient encounter procedure [facility] Comment on above: breast ca new breast ca Start: 01-06-2025 End: 01-06-2025 Patient encounter procedure 01/06/2025 8:30 AM EDT Appointment Radiology [address] [place], [place] [phone] MRI LIVER WO/W IVCON Radiology Comment on above: MRI LIVER WO/W IVCON Start: 01-04-2025 End: 01-04-2025 ambulatory Hematology/Oncology Comment on above: breast ca ENERGY AND SUSTAINABILITY MANAGER/BREAST CA/REF DR HIRSCH* Start: 01-04-2025 End: 04-05-2025 Chronic hepatitis differentiation between hepatitis B and C virus panel - Serum or Plasma [facility] Work Phone: Comment on above: Expected: 01/04/2025 , Expires: 04/05/2025 Start: 12-15-2024 End: 12-15-2024 Patient encounter procedure 12/15/2024 8:20 AM EDT Appointment Cat Scan [address] [place] [phone] ct chest Cat Scan Comment on above: ct chest Start: 12-14-2024 End: 12-14-[address] Scan Comment on above: ct abd Start: 12-13-2024 End: 12-13-2024 Patient encounter procedure 12/13/2024 9:30 AM EDT Office Visit Radiation Oncology [address] [place], [place] [phone] Sara Avalos MD [address] [place] [address] ENERGY AND SUSTAINABILITY MANAGER/BREAST CANCER/REF BY Babita Morataya APRN.PEANUT SHAKER* Radiation Oncology Comment on above: ENERGY AND SUSTAINABILITY MANAGER/BREAST CANCER/REF BY Babita Morataya APRN.PEANUT SHAKER* Start: 08-11-2024 Advance Directive Discussion Advance Directive Discussion [facility] Start: 04-11-2024 Covid-19 Vaccine ( season) Covid-19 Vaccine ( season) [facility] Start: 04-11-2024 Influenza vaccination Influenza Vacc ine (#1) [facility] Start: 2019 Screening for osteoporosis Bone Density Screening [facility] Start: 04-11-2019 Medicare Annual Well ness Visit Medicare Annual Wellness Visit [facility] Start: 2014 RSV Vaccine (1 - Ris k 60-74 years 1-dose series) RSV Vaccine (1 - Risk 60-74 years 1-dose series) [facility] Start: 2004 Pneumococcal Vaccine : 50+ (1 of 1 - PCV) Pneumococcal Vaccine: 50+ (1 of 1 - PCV) [facility] Start: 2004 Shingrix Vaccine (1 of 2) Nguyen grix Vaccine (1 of 2) [facility] Start: 1999 Lipid panel Lipid Screening [facility] Start: 1999 Screening for malign ant neoplasm of colon [facility] Start: 1994 Screening for malign ant neoplasm of breast Mammogram Screening [facility] Start: 1973 Pneumococcal Vaccine : 50+ (1 of 2 - PCV) Pneumococcal Vaccine: 50+ (1 of 2 - PCV) [facility] Start: 1973 Shingrix Vaccine (1 of 2) Nguyen grix Vaccine (1 of 2) [facility] Start: 1973 Urine microalbumin profile DTaP,Tdap,Td Vaccine (1 - Tdap) [facility] Start: 1972 Anxiety Screening Anxiety Screening [facility] Start: 1972 Depression Screening Depression Scre ening [facility] Start: 1972 Hepatitis C screening Hepatitis C Sc reening [facility] Start: 1965 Screening for malign ant neoplasm of cervix Cervical Cancer Screening [facility] Start: 1959 Covid-19 Vaccine (#1) Covid-19 Vacci ne (#1) [facility] Cortisol [Mass/volum e] in Serum or Plasma CORTISOL, SERUM Lab Routine Hypoadrenalism (HCC) 03/01/2025 8:46 AM EDT [facility] End: 01-07-2026 CT Abdomen and Pelvis W contrast IV CT ABD/PEL W IVCON Radiology Routine Malignant neoplasm of upper-inner quadrant of left breast in female, estrogen receptor negative (HCC) 1 Occurrences starting 12/08/2024 until 01/07/2026 [facility] Work Phone: Comment on above: 1 Occurrences starti ng 12/08/2024 until 01/07/2026 CT Abdomen and Pelvi s W contrast IV CT ABD/PEL W IVCON Radiology Routine Malignant neoplasm of upper-inner quadrant of left breast in female, estrogen receptor negative (HCC) 12/14/2024 1:35 PM EDT [facility] Work Phone: End: 01-07-2026 CT Chest WO contrast CT CHEST WO IVCON Radiology Routine Malignant neoplasm of upper-inner quadrant of left breast in female, estrogen receptor negative (HCC) 1 Occurrences starting 12/08/2024 until 01/07/2026 [facility] Comment on above: 1 Occurrences starti ng 12/08/2024 until 01/07/2026 CT Chest WO contrast CT CHEST WO IVCON Radiology Routine Malignant neoplasm of upper-inner quadrant of left breast in female, estrogen receptor negative (HCC) 12/14/2024 1:40 PM T [facility] FISH FOR HER-2 FISH FOR HER-2 L ab Routine Mass of upper inner quadrant of left breast 12/01/2024 1:56 PM T [facility] Work Phone: MR Breast - bilatera l WO and W contrast IV MRI BREAST WO/W IVCON BILATERAL Radiology Routine Malignant neoplasm of upper-inner quadrant of left breast in female, estrogen receptor negative (HCC) 01/04/2025 10:24 AM T [facility] Work Phone: MR Liver WO and W contrast IV MRI LIVER WO/W IVCON Radiology Routine Lesion of liver greater than 1 cm in diameter 01/06/2025 9:18 AM [facility] Work Phone: MRI BREAST 3D POST PROCESSING MRI BREAST 3D POST PROCESSING Radiology Routine Malignant neoplasm of upper-inner quadrant of left breast in female, estrogen receptor negative (HCC) 01/04/2025 10:24 AM EDT [facility] Patient Education [facility] Work Phone: Stroke after atrial fibrillation 5 year risk [#] Tom 2002 IR PORTOCATH PLACEMENT Radiology Routine Malignant neoplasm of upper-inner quadrant of left breast in female, estrogen receptor negative (HCC) Ordered: 01/04/2025 [facility] Comment on above: Ordered: 01/04/2025 Thyrotropin [Units/volume] in Serum or Plasma THYROID STIMULATING HORMONE Lab Routine Malaise and fatigue Acquired hypothyroidism 03/01/2025 8:46 AM EDT [facility] Work Phone: Thyroxine (T4) free [Mass/volume] in Serum or Plasma T4 FREE/FREE THYROXINE Lab Routine Malaise and fatigue Acquired hypothyroidism 03/01/2025 8:46 AM EDT [facility] End: 02-03-2026 US Pelvis transvaginal US FEMALE PELVIS TRANSVAG Radiology Routine Increased endometrial stripe thickness 1 Occurrences starting 01/04/2025 until 02/03/2026 [facility] Work Phone: Comment on above: 1 Occurrences starti ng 01/04/2025 until 02/03/2026 US Pelvis transvaginal US FEMALE PELVIS TRANSVAG Radiology Routine Increased endometrial stripe thickness 01/14/2025 8:22 AM EDT [facility] Work Phone: Payers Date Payer Category Payer Self-pay 2020 Private Health Insurance [employer] MED ICARE SUPPLEMENT [id number] 2020 Unknown [id number] 2019 Medicare .[id number] 2019 Medicare [id number] 1954 Unknown [id number] 2.16.840.1.388334.3.579.2. 62 1954 Unknown [id number] 2.16.840.1.899454.3.579.2. 1954 Unknown [id number] 2.16.840.1.335478.3.579.2. 1954 Unknown [id number] 2.16.840.1.364711.3.579.2. 1954 Unknown [id number] 2.16.840.1.190235.3.579.2. 1954 Unknown [id number] 2.16840.1.167740.3.579.2. 1954 Unknown [id number] 2.16.840.1.051234.3.579.2. 62 1954 Unknown [id number] 2.16.840.1.218812.3.579.2. 1954 Unknown [id number] 2.16.840.1.002687.3.579.2. 62 1954 Unknown [id number] 2.16.840.1.758446.3.579.2. 62 1954 Unknown [id number] 2.16.840.1.538418.3.579.2. 62 1954 Unknown [id number] 2.16.840.1.134798.3.579.2. 1954 Unknown [id number] 2.16.840.1.665151.3.579.2. 62 1954 Unknown [id number] 2.16.840.1.082620.3.579.2. 62 1954 Unknown [id number] 2.16.840.1.577391.3.579.2. 627 Unknown [id number] 2.16.840.1.524908.3.579.2. 462 Unknown [id number] 2.16.840.1.452199.3.579.2. 462 Unknown [id number] 2.16.840.1.021023.3.579.2. 462 Unknown [id number] 2.16.840.1.675674.3.579.2. 462 Unknown [id number] 2.16.840.1.703687.3.579.2. 462 Social History Date Type Detail Facility Start: 05-10-2020 End: 03-09-2025 Tobacco smoking status Never smoked tobacco (finding) [facility] Start: 1955 Sex Assigned At Female A [facility] Start: 06-16-2020 End: 01-06-2025 Tobacco use and exposure Smokeless tobacco non-user [facility] Start: 12-08-2024 End: 03-14-2025 Alcoholic beverage intake Ex-drinker (finding) [facility] Start: 12-08-2024 End: 03-14-2025 History of Social function [facility] Start: 12-08-2024 End: 03-14-2025 Tobacco use panel [facility] National Score (1-10 0), lower number is lower risk 35 [facility] Start: 1955 Sex assigned at Not on file C [facility] Start: 01-14-2025 Gender identity Identifies as female gender (finding) [facility] Start: 01-14-2025 Sexual orientation Heterosexual (fin deana) [facility] Start: 05-31-2019 Alcohol Alcohol [facility] Start: 05-31-2019 Lives Lives [facility] Medical Equipment Procedure Code Equipment Code Equipment Origin al Text Equipment Identifier Dates Power Injectable Vaccess Ct Plastic 8f Chronoflex Catheter With Kit - [id number] Start: 01-10-2025 Goals Date Patient Goal Desired Activity /State Mental Status Date Assessment Result Facility 03-18-2025 Cognitive function Voice/Name [facility] Work Phone: 02-27-2025 Cognitive function Level Of Cons ciousness Awake;Alert;Appropriate;Follow s Commands [facility] Work Phone: Clinical Notes 11-06-2022 to 03-18-2025 Note Date & Type Note Facility 03-18-2025 Consult note [facility] 03-18-2025 Procedure note [facility] 03-18-2025 Discharge summary [facility] 03-18-2025 Evaluation note Diagnosis Onset Date Resolution Endometrial polyp acute March 18, 2025 10:12am [facility] Work Phone: 1(345) 571-853908-08-2025 Consult note [facility] Medical Records Department [address] [place] [address] Pre-Anesthesia Evaluation 03/18/25 1140 MR#: [id number] Acct: [id number] Name: LIZ ROBLES Rep #:[id number] : 1955 69 From: Sukhwinder Brizuela MD PCP: YEISON Vargas Status:REG S DC Y Race: C Location: [place] [address] ASA Classification* ASA Classification ASA Classification: 3 Assessment & Plan Anesthesia* Anesthesia Assessment Anesthesia Assessment: Discussed sedation and/or anesthesia options, risks, benefits, and alternatives with patient/parents/legal guardian/POA. Questions invited. The patient/parents/legal guardian/POA seems to understand and agrees to proceedwith anesthesia plan. Reviewed the physical assessment, medical history, allergy history and patient home medications list prior to surgery/procedure/anesthetic and documented any changes. Performed airway and anesthesia risk assessments. Anesthesia Type Anesthesia Type: MAC History Source History Obtained from:: Patient and Chart Anesthesia Focused Assessment* Temperature: 96.9 F Pulse Rate: 85 Blood Pressure: 129/52 Respiratory Rate: 16 Pulse Ox: 100 Oxygen Delivery Method: Room Air Airway Assessment Mouth opens: >3 cm Mallampati Score: IV Teeth Condition: Caps/Crowns (Right lower molar has a crown. It is tight.) Neck Range of motion (ROM): Full ROM Labs Anesthesia Preop lab: CBC WBC 6.4 K/mm3 (4.4-11.0) 10/23/21 10:04 10/23/21 RBC 4.71 M/mm3 (4.2-5.4) 10/23/21 10:04 10/23/21 Hgb 15.7 g/dL (12.0-15.0) H 10/23/21 10:04 2 Hct 44.6 % (37-47) 10/23/21 10:04 10/23/21 Plt Count 334 K/mm3 (150-450) 10/23/21 10:04 10/23/21 CHEMISTRY Potassium 3.9 mmol/L (3.5-5.1) 10/23/21 10:04 10/23/21 Sodium 137 mmol/L (136-145) 10/23/21 10:04 10/23/21 BUN 12 mg/dL (7-18) 10/23/21 10:04 10/23/21 Creatinine 0.86 mg/dL (0.55-1.02) 10/23/21 10:04 10/23/21 Glucose 112 mg/dL (74-106) H 10/23/21 10:04 10/23/21 COAG Pre-Assessment Diagnosis/Proposed Procedure Planned Operative Procedure(s): Hysteroscopy,D&C, polypectomy, Symphion Anesthesia History Anesthesia History - gaming associate: Anesthesia History - gaming associate Hx Hospitalization No 03/09/25 11:40 Any Problems With Anesthesia Yes: N&V 03/09/25 11:40 Cholinesterase deficiency No 03/09/25 11:40 You/Your Family Experience No 03/09/25 11:40 fever (hyperthermia) with Relationship Recent Exposure to Contagious No 03/18/25 10:43 Disease Does patient have nerve No 03/09/25 11:40 stimulator Patient instructed to have device shut off --Does patient have Pacemaker No 03/18/25 10:43 or ICD? When Was Last Pacemaker Check QUESTION #4 FULL TEXT: You/Your Family Experience fever (hyperthermia) with Anesthesia Last Oral Intake Last Oral intake: Last Oral Intake NPO since 21:30 03/18/25 10:43 Meds taken in AM with sips of No 03/18/25 10:43 water? Meds patient instructed to take am of surgery PONV PONV - gaming associate: PONV - gaming associate Female Yes 03/09/25 11:40 HX of Motion Sickness No 03/09/25 11:40 HX of N/V After Surgery No 03/09/25 11:40 Non-Smoker Yes 03/09/25 11:40 Duration of Surgery greater Yes 03/09/25 11:40 than 60 minutes Number of Risk Factors 3 03/09/25 11:40 PONV Score Moderate Risk 03/09/25 11:40 Height & Weight Height & Weight: Anesthesia: Height & Weight Height 5 ft 5 in 03/18/25 10:43 Weight: 76 kg 03/18/25 10:43 Body Mass Index (BMI) 27.8 03/18/25 10:43 Respiratory Assessment Respiratory Assessment - gaming associate: Respiratory Tract Infection Hx - gaming associate Hx Respiratory Tract Infection No 03/09/25 11:40 STOP Sleep Apnea STOP Sleep Apnea - gaming associate: STOP Sleep Apnea - gaming associate Hx Hypertension Yes: NO MEDS PRESENTLY 03/09/25 11:40 Hx Sleep Apnea No 03/09/25 11:40 CPAP BIPAP Do you snore loudly (louder No 03/09/25 11:40 than talking or can be heard Do you often feel tired/ No 03/09/25 11:40 fatigued/ sleepy during daytime? Has anyone observed you stop No 03/09/25 11:40 breathing during sleep? STOP Results Negative 03/09/25 11:40 QUESTION #5 FULL TEXT : Do you snore loudly (louder than talking or can be heard through closeddoors)? 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 Specify any problems Hx of Preganancy in last 3 No 03/09/25 11:40 Months Nurse Filling Out Transfusion VCHRISTIN 03/09/25 11:40 & Questions: Date: 03/09/25 03/09/25 11:40 Time: 11:41 03/09/25 11:40 Patient unable to answer at this time (ie. confused, unrespo /Reproduction History /Reproductive History - gaming associate: /Reproductive Hx- gaming associate Hx Now No 03/09/25 11:40 Gestational Age (in weeks): EDC: Hx Hx Para Hx Section SAB No 03/09/25 11:40 Active Medications Active Medications: Current Medications Generic Name Dose Route Start Last Admin Trade Name Freq PRN Reason Stop Dose Admin Lactated Ringer's 1,000 mls @ 15 mls/hr 03/18/25 10:30 03/18/25 10:52 IV 15 mls/hr .Q48H CELIA Administration PFSH Medical History History of stress test Wears glasses Post-menopausal Cancer Open wound History of steroid therapy Gastric reflux Non-smoker Hoarseness History of echocardiogram Cardiology follow-up encounter Breast cancer Hypertension Cervical paraspinal muscle spasm GERD (gastroesophageal reflux disease) Retinal detachment High cholesterol Hx of cataract UTI (urinary tract infection) History of back problems Environmental allergies Seasonal allergies Hemorrhoids Home Medications ?Medication ?Instructions ?Recorded ?Last Taken ?Type diphenhydramine HCl 25 mg capsule 50 mg PO Q8H PRN all ergy symptoms 02/27/25 Unknown History (Benadryl) fluorometholone 0.1 % eye 1 drp LEFT EYE DAILY PRN PRN 02/27/25 Unknown History drops,suspension gabapentin 100 mg capsule 200 mg PO QHS 02/27/25 Unkno wn History pembrolizumab 50 mg intravenous 200 mg IV 02/27/25 Unk nown History solution promethazine 25 mg tablet 25 mg PO TID PRN nausea and 02/27/25 Unknown History vomiting methylprednisolone 4 mg tablets in 4 mg PO DAILY 03/09 Unknown History a dose pack Allergy/AdvReac Type Severity Reaction Status Date / Time Csnkjui-EDE-ShZ Reductase AdvReac Pain in Verified 03/09/25 11:26 Inhibitor joints Family History Uncle Alcoholism Aunt Alcoholism Breast cancer Cancer ovarian Mother Liver disease Brother High cholesterol Surgical History Hx of dilation and curettage Hx of eye surgery Social History household members: spouse housing: house Smoking Status: Never smoker alcohol intake: never substance use type: does not use what type of physical activity do you participate in: none Review of Systems (Anesthesia) ROS Narrative System reviewed and no additional complaints, except as documented. 03/18/25 1152 beba CERON> Date _ Sukhwinder Brizuela MD Cosigner Signature: Date CC: ~ Signed [facility] History of Present illness Narrative* Orville Martinez, - 03/14/2025 10:19 AM EDT Oncologic problem(s): 1) TNBC. HPI: The patient is a 69-year-old female [...] apocrine features at least Mitchel grade 2. ER/CA both negative. HER2 2+. Nonamplified on FISH testing. CT of the chest, abdomen pelvis on 12/14/2024 showed a near 2 and half centimeter left breast mass and a few less than 6 mm pulmonary nodules. There was an indeterminate 1.3 cm segment liver lesion.MRI was recommended for further characterization. Had MRI breasts today. Scheduled for MRI liver on 01/06. Current therapy: 1) Paclitaxel/carboplatin/pembrolizumab. Presents for ongoing oncologic management. Interim history: Pembrolizumab held on day 1 of cycle 3 due to rash. The rash mainly occurred in sun exposed areas. Characterized by raised erythematous nodular lesions. Responding to steroid treatment. 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 However rash was much worse after 2 doses of pembrolizumab. There has been improvement however. She started to have neuropathy that stopped her from going on a trip this week. Pain mostly soles of the feet and sides of the feet and hands. Sometimes pain radiates to mid forearm. She has been using cold stockings and gloves when getting Taxol infusion. Otherwise tolerating treatment well. PAST MEDICAL HISTORY Diagnosis Date Breast cancer (HCC) 11/2024 left breast Essential hypertension PAST SURGICAL HISTORY Procedure Laterality Date BX OF BREAST; INCISIONAL Left 11/2024 [id number]. hx of eye surgery doxycycline monohydrate (MONODOX) 100 mg capsule Take 1 capsule by mouth two times a day for 7 days. gabapentin (NEURONTIN) 100 mg capsule Take 1 capsule by mouth daily at bedtime for 60 days. (Patient taking differently: Take two capsules by mouth twice daily.) lidocaine-prilocaine (EMLA) 2.5-2.5 % cream Apply 1 application to affected area as needed. acetaminophen (TYLENOL) 325 mg cap Take 2 capsules by mouth once daily as needed for pain. famotidine (PEPCID) 20 mg tablet Take 20 mg by mouth two times a day as needed. prochlorperazine (COMPAZINE) 10 mg tablet Take 1 tablet by mouth every 6 hours as needed. omeprazole (PRILOSEC) 40 mg capsule Take 40 mg by mouth as needed. predniSONE (DELTASONE) 20 mg tablet Take 3 tabs daily x 4 days, then 2 tabs daily x4 days, then 1 tab daily x4 days, then half tab daily x4 days. (Patient not taking: Reported on 03/14/2025) lisinopril (ZESTRIL) 5 mg tablet Take 2.5 mg by mouth once daily. ALLERGIES Allergen Reactions Fgkkolr-Zok-Pem Red* Myalgia Social History Tobacco Use Smoking [...] Uncle smoker Lung Cancer Maternal Uncle smoker Maternal aunt breast cancer in her early 60s. Live to be about 85. Mother's side--Two brothers lung cancer and sister cervix cancer. REVIEW OF SYSTEMS: Constitutional: No episodes of fever and drenching night sweats. Not significantly fatigued. Normalappetite. Neuro: No COLE, vertigo, dizziness and imbalance. [...] was discussed with the patient or authorized care support representative. The patient or authorized care support representative has agreed to proceed with the sensitive examination. Fiordaliza Perdomo LPN chaperoned. PHYSICAL EXAM: Vitals: Blood pressure 127/72, pulse 96, temperature 36.3 C (97.3 F), temperature source Temporal, weight 76.2 kg (168 lb), SpO2 99%. Well-appearing and in no acute distress. EYES: Sclerae are anicteric bilaterally. LYMPHATIC: There is no palpable cervical or supraclavicular adenopathy. CARDIOVASCULAR: Rhythm is regular. BREAST: At approximately the 11 o'clock position of the left breast there is a superficial mobile mass that currently measures about 2 x 1/2 cm. Smaller than initial exam. No left axillary adenopathy. ABDOMEN: The abdomen is nondistended. Extremities: No swelling or edema. SKIN: On the lower extremities there are healed/healing slightly raised erythematous lesions. On the forearms there is a more confluent erythematous rash with many areas that appear to have been aggravated by chemo/pre-existing skin lesions. This is also observed in the face and upper chest. 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 - Overall tolerating therapy well with the exception of rash presumably from immunotherapy but alsoappears to have exacerbation in sun-exposed areas which could be from chemotherapy i.e. paclitaxel.Discussed the importance of avoiding sun exposure. - Neuropathy not responsive to gabapentin. -Responding disease by exam. Plan: - Complete the course of oral doxycycline. - Topical therapy as prescribed by Dr. Pineda's office. - Change Taxol infusion to 3 hours rather than 1 hour since neuropathy will quickly become disabling. - Okay to reintroduce pembrolizumab with cycle 4. - Discussed plan for the 4 cycles of AC once completes paclitaxel. - Repeat CT chest after completion of carboplatin and paclitaxel. - Repeat MRI Breast when completes NACT. Portions of this documentation were copied and pasted from my previous office visit note dated 01/04/2025 in order to provide a cohesive continuity of the history. The note has been reviewed and edited and updated as necessary. Orville Martinez DO [facility] Telephone encounter Note * Telephone Encounter - Winsome Soriano LPN - 03/14/2025 8:22 AM EDT Patient will come in today to see Dr. Martinez at 10:10. She is aware. Winsome Soriano LPN [facility]08-04-2025 Miscellaneous Notes* Telephone Encounter - Winsome Soriano LPN - 03/14/2025 8:22 AM EDT Patient will come in today to see Dr. Martinez at 10:10. She is aware. Winsome Soriano LPN documented in this encounterOhio[facility]08-01-2025 Telephone encounter Note * Telephone Encounter - Jennifer Burk RN - 03/11/2025 3:57 PM EDT Spoke to patient. Answered her questions. Patient has c/o sinus drainage, asking if she can take a medication called Contac; tylenol and sudafed. Patient informed she can take this; monitor for a fever if she starts to feel unwell. Jennifer Burk RN [facility]08-01-2025 Miscellaneous Notes* Telephone Encounter - Jennifer Burk RN - 03/11/2025 3:57 PM EDT Spoke to patient. Answered her questions. Patient has c/o sinus drainage, asking if she can take a medication called Contac; tylenol and sudafed. Patient informed she can take this; monitor for a fever if she starts to feel unwell. Jennifer Burk RN * Telephone Encounter - Thais Davis - 03/11/2025 3:55 PM EDT Patient returned call. Care coord line was busy. Patient also asking what she can take for sinus. * Telephone Encounter - Jennifer Burk RN - 03/11/2025 3:27 PM EDT Received a message through treatment plans. Spoke with patient and informed that treatment on 03/14 was scheduled too soon. Patient was originally scheduled on 03/16, called in and spoke to front office spec and r/s to 03/14 due to work trip. Patient is not available -Fri. 03/14 Treatment canceled. Patient requested to speak with Jennifer regarding rash, asking if this will continue even during next cycle. Patient is scheduled to see Derm on 03/28 ----- Message ----- From: Thais Davis Sent: 03/11/2025 10:29 AM EDT To: Zoe Nair RN; Lv Lopez RPh; * Message left for patient to contact office to reschedule. Will check remaining schedule ----- Message ----- From: Lv Lopez RPh Sent: 03/11/2025 7:25 AM EDT To: Zoe Nair RN; [facility] Called patient, no answer, left a VM requesting a call back. Jennifer Burk RN documented in this encounterOhio[facility]08-01-2025 Telephone encounter Note * Telephone Encounter - Thais Davis - 03/11/2025 3:55 PM EDT Patient returned call. Care coord line was busy. Patient also asking what she can take for sinus. [facility] Work Phone: 1(642) 362-454408-01-2025 Telephone encounter Note* Telephone Encounter - Jennifer Burk RN - 03/11/2025 3:27 PM EDT Received a message through treatment plans. Spoke with patient and informed that treatment on 8/4 was scheduled too soon. Patient was originally scheduled on 03/16, called in and spoke to front office spec and r/s to 03/14 due to work trip. Patient is not available -Fri. 03/14 Treatment canceled. Patient requested to speak with Jennifer regarding rash, asking if this will continue even during next cycle. Patient is scheduled to see Derm on 03/28 ----- Message ----- From: Thais Davis Sent: 03/11/2025 10:29 AM EDT To: Zoe Nair RN; L[facility] Lopez [facility]; * Message left for patient to contact office to reschedule. Will check remaining schedule ----- Message ----- From: Lv Lopez RPh Sent: 03/11/2025 7:25 AM EDT To: Zoe Nair RN; [facility] Called patient, no answer, left a VM requesting a call back. Jennifer Burk RN [facility]07-31-2025 Telephone encounter Note* Telephone Encounter - Noemi Meier RN - 03/10/2025 12:41 PM EDT Care Coordination Triage Note Cancer [place] Situation: Patient reports Other 2 lumps in neck Background: Breast cancer on Carbo/Taxol/Keytruda Assessment: Call to patient, she is driving to [place] for the weekend. She just had acupuncture and red light therapy. She is not sure if that helped or this is something that has always been there and comes/goes but this am she felt a node on both sides of throat, size of marbles. Now, she can't really feel the one on the left and the one on the right, she can feel a little bit. No redness, she couldn't seem them when looking at neck, not tender. Advised to monitor and call back if increase in symptoms. Recommendations: Per RNCC, patient directed to: Manage at home. Instructions provided. Will send update to Dr. Michelle Meier RN March 10, 2025 12:41 PM [facility] Work Phone: 1(802) 285-954807-31-2025 Miscellaneous Notes* Telephone Encounter - Noemi Meier RN - 03/10/2025 12:41 PM EDT Care Coordination Triage Note Cancer [place] Situation: Patient reports Other 2 lumps in neck Background: Breast cancer on Carbo/Taxol/Keytruda Assessment: Call to patient, she is driving to [place] for the weekend. She just had acupuncture and red light therapy. She is not sure if that helped or this is something that has always been there and comes/goes but this am she felt a node on both sides of throat, size of marbles. Now, she can't really feel the one on the left and the one on the right, she can feel a little bit. No redness, she couldn't seem them when looking at neck, not tender. Advised to monitor and call back if increase in symptoms. Recommendations: Per RNCC, patient directed to: Manage at home. Instructions provided. Will send update to Dr. Michelle Meier RN March 10, 2025 12:41 PM documented in this encounterOhio[facility]07-31-2025 Telephone encounter Note * Telephone Encounter - Winsome Soriano LPN - 03/10/2025 12:27 PM EDT Records received from [employer] and placed on [employer] desk. Winsome Soriano LPN [facility]07-31-2025 Miscellaneous Notes* Telephone Encounter - Winsome Soriano LPN - 03/10/2025 12:27 PM EDT Records received from [employer] and placed on [email or web address] desk. Winsome Soriano LPN * Telephone Encounter - Jennifer Burk RN - 03/09/2025 2:42 PM EDT Spoke to patient. Dr. Martinez prescribed doxycycline. Reviewed instructions for use. Recent records from [facility] requested. Jennifer Burk RN * Telephone Encounter - Orville Martinez DO - 03/08/2025 5:00 PM EDT Ask her to send pictures of several of the lesions. Orville Martinez DO * Telephone Encounter - Jennifer Burk RN - 03/08/2025 11:04 AM EDT Patient sent a message to provide our office with an update: Patient stated she has 3 small new areas on her face and 5 new areas on her upper back that are sore or boils and looks like chicken pox. Patient stated the sores are red and look like pimples, most of them have a little head on them. denies pain. Patient has intermittent itching, especially after showering. Sores are on both sides of the body. The new sores started appearing this week. Patient is using Triamcinolone acitonide 1% ointment for 2 weeks and then will take a week off; the cream help with itching. Cream was prescribed by dermatology, [facility]. Patient stated all of theprevious areas have scabbed over and most have fallen off except for the sores on her legs. Patient stated she is tapering down on the prednisone; currently at 40 mg x 4 days. Patient will be in for carbo/taxol tomorrow. Immunotherapy was held C2D1 03/02. Patient will continue to use the cream prescribed by derm, taper steroids as directed, and will report any new/worseningsymptoms. Jennifer Burk RN documented in this encounterOhio[facility]07-30-2025 Telephone encounter Note * Telephone Encounter - Jennifer Burk RN - 03/09/2025 2:42 PM EDT Spoke to patient. Dr. Martinez prescribed doxycycline. Reviewed instructions for use. Recent records from [facility] requested. Jennifer Burk RN [facility]07-29-2025 Telephone encounter Note* Telephone Encounter - Orville Martinez DO - 03/08/2025 5:00 PM EDT Ask her to send pictures of several of the lesions. Orville Martinez DO [facility]07-29-[facility] Telephone encounter Note* Telephone Encounter - Jennifer Burk RN - 03/08/2025 11:04 AM EDT Patient sent a message to provide our office with an update: Patient stated she has 3 small new areas on her face and 5 new areas on her upper back that are sore or boils and looks like chicken pox. Patient stated the sores are red and look like pimples, most of them have a little head on them. denies pain. Patient has intermittent itching, especially after showering. Sores are on both sides of the body. The new sores started appearing this week. Patient is using Triamcinolone acitonide 1% ointment for 2 weeks and then will take a week off; the cream help with itching. Cream was prescribed by dermatology, Josh Molina. Patient stated all of theprevious areas have scabbed over and most have fallen off except for the sores on her legs. Patient stated she is tapering down on the prednisone; currently at 40 mg x 4 days. Patient will be in for carbo/taxol tomorrow. Immunotherapy was held C2D1 03/02. Patient will continue to use the cream prescribed by derm, taper steroids as directed, and will report any new/worseningsymptoms. Jennifer Burk RN [facility]07-28-[facility]25 History and physical note* Emilie Lennon MD - 03/07/2025 1:43 PM EDT DATE OF SERVICE: March 07, 2025 PROBLEM: pre op, polypoid lesion in the uterus on ultrasound DIAGNOSIS: as above PAST SURGICAL HISTORY: PAST SURGICAL HISTORY Procedure Laterality Date BX OF BREAST; INCISIONAL Left 11/2024 [id number]. hx of eye surgery PAST MEDICAL HISTORY: PAST MEDICAL HISTORY Diagnosis Date Breast cancer (HCC) 11/2024 left breast Essential hypertension SUBJECTIVE: Patient offers no new complaints today. SOCIAL HISTORY: Social History Tobacco Use Smoking status: Never Smokeless tobacco: Never Vaping Use Vaping status: Never Used Substance Use Topics Alcohol use: Not Currently Drug use: Not Currently ALLERGIES Allergen Reactions Nrufmhe-Ftv-Tlo Red* Myalgia Current Outpatient Medications on File Prior to Visit Medication Sig gabapentin (NEURONTIN) 100 mg capsule Take 1 capsule by mouth daily at bedtime for 60 days. predniSONE (DELTASONE) 20 mg tablet Take 3 tabs daily x 4 days, then 2 tabs daily x4 days, then 1 tab daily x4 days, then half tab daily x4 days. lidocaine-prilocaine (EMLA) 2.5-2.5 % cream Apply 1 application to affected area as needed. acetaminophen (TYLENOL) 325 mg cap Take 2 capsules by mouth once daily as needed for pain. famotidine (PEPCID) 20 mg tablet Take 20 mg by mouth two times a day as needed. prochlorperazine (COMPAZINE) 10 mg tablet Take 1 tablet by mouth every 6 hours as needed. omeprazole (PRILOSEC) 40 mg capsule Take 40 mg by mouth as needed. lisinopril (ZESTRIL) 5 mg tablet Take 2.5 mg by mouth once daily. No current facility-administered medications on file prior to visit. Pelvic US: * * *Final Report* * * DATE [...] and stored in a permanent archive. MQ: [facility]_2021 COMPARISON: CT of the abdomen and pelvis [...] Fluid: No abnormal free fluid is present. OBJECTIVE: VITALS: BP 121/65 Pulse 89 Resp 16 Ht 165.1 cm (5' 5) Wt 74 kg (163 lb 3.2 oz) LMP (LMP Unknown) SpO2 100% BMI 27.16 kg/m HEENT: Normocephalic, atraumatic. SKIN: No lesions. CHEST: Clear to auscultation. No wheezes or rales. Good air exchange. HEART: Regular rate and rhythm No S3 or S4. No gallops or rubs. BACK: Nontender. ABDOMEN: Non distended. LOWER EXTREMITIES: There was no pitting edema. ASSESSMENT: pre op PLAN: 1) Discussed r/b/a hysteroscopy, polypectomy, D&C. The rationale for the proposed surgerywas discussed in addition to risks, benefits, and alternatives. General pre- and post-operative care was reviewed. Questions were answered. After discussion, the patient indicated a desire to proceedwith the planned surgery. Coordinating care with oncology team. Plan after discussion is for a CBC with diff to assess for neutropenia and thrombocytopenia a day prior to surgery. Patient states she will be out of town until 7 PM the day before her surgery, and plans a blood draw day of surgery. Discussed surgery could be cancelled based on results which she understands. Emilie Lennon DO Medical Decision Making: Problems: Moderate: New problem with uncertain prognosis Risk: Moderate: Decision on minor surgery w/ risk factors Medical Decision Making Level: 4 - Moderate [facility]07-28-2025 History and physical note* Emilie Lennon MD - 03/07/2025 1:43 PM EDT DATE OF SERVICE: March 07, 2025 PROBLEM: pre op, polypoid lesion in the uterus on ultrasound DIAGNOSIS: as above PAST SURGICAL HISTORY: PAST SURGICAL HISTORY Procedure Laterality Date BX OF BREAST; INCISIONAL Left 11/2024 [id number]. hx of eye surgery PAST MEDICAL HISTORY: PAST MEDICAL HISTORY Diagnosis Date Breast cancer (HCC) 11/2024 left breast Essential hypertension SUBJECTIVE: Patient offers no new complaints today. SOCIAL HISTORY: Social History Tobacco Use Smoking status: Never Smokeless tobacco: Never Vaping Use Vaping status: Never Used Substance Use Topics Alcohol use: Not Currently Drug use: Not Currently ALLERGIES Allergen Reactions Dipantm-Hsl-Yfa Red* Myalgia Current Outpatient Medications on File Prior to Visit Medication Sig gabapentin (NEURONTIN) 100 mg capsule Take 1 capsule by mouth daily at bedtime for 60 days. predniSONE (DELTASONE) 20 mg tablet Take 3 tabs daily x 4 days, then 2 tabs daily x4 days, then 1 tab daily x4 days, then half tab daily x4 days. lidocaine-prilocaine (EMLA) 2.5-2.5 % cream Apply 1 application to affected area as needed. acetaminophen (TYLENOL) 325 mg cap Take 2 capsules by mouth once daily as needed for pain. famotidine (PEPCID) 20 mg tablet Take 20 mg by mouth two times a day as needed. prochlorperazine (COMPAZINE) 10 mg tablet Take 1 tablet by mouth every 6 hours as needed. omeprazole (PRILOSEC) 40 mg capsule Take 40 mg by mouth as needed. lisinopril (ZESTRIL) 5 mg tablet Take 2.5 mg by mouth once daily. No current facility-administered medications on file prior to visit. Pelvic US: * * *Final Report* * * DATE [...] and stored in a permanent archive. MQ: [facility]_2021 COMPARISON: CT of the abdomen and pelvis [...] Fluid: No abnormal free fluid is present. OBJECTIVE: VITALS: BP 121/65 Pulse 89 Resp 16 Ht 165.1 cm (5' 5) Wt 74 kg (163 lb 3.2 oz) LMP (LMP Unknown) SpO2 100% BMI 27.16 kg/m HEENT: Normocephalic, atraumatic. SKIN: No lesions. CHEST: Clear to auscultation. No wheezes or rales. Good air exchange. HEART: Regular rate and rhythm No S3 or S4. No gallops or rubs. BACK: Nontender. ABDOMEN: Non distended. LOWER EXTREMITIES: There was no pitting edema. ASSESSMENT: pre op PLAN: 1) Discussed r/b/a hysteroscopy, polypectomy, D&C. The rationale for the proposed surgerywas discussed in addition to risks, benefits, and alternatives. General pre- and post-operative care was reviewed. Questions were answered. After discussion, the patient indicated a desire to proceedwith the planned surgery. Coordinating care with oncology team. Plan after discussion is for a CBC with diff to assess for neutropenia and thrombocytopenia a day prior to surgery. Patient states she will be out of town until 7 PM the day before her surgery, and plans a blood draw day of surgery. Discussed surgery could be cancelled based on results which she understands. Emilie Lennon, Medical Decision Making: Problems: Moderate: New problem with uncertain prognosis Risk: Moderate: Decision on minor surgery w/ risk factors Medical Decision Making Level: 4 - Moderate documented in this encounterOhio[facility]07-[facility]25 Telephone encounter Note * Telephone Encounter - Joyce Asencio LPN - 03/03/2025 4:13 PM EDT Patient scheduled for surgery 03/18/25. Can patient be added to scheduled for pre- op on 03/04 or 03/07? [facility]07-24-2025 Miscellaneous Notes* Telephone Encounter - Joyce Asencio LPN - 03/03/2025 4:13 PM EDT Patient scheduled for surgery 03/18/25. Can patient be added to scheduled for pre- op on 03/04 or 03/07? * Telephone Encounter - Emilie Lennon MD - 03/03/2025 8:15 AM EDT Surgery sheet was completed. Forwarded epic message regarding this. I had messaged her oncology team for clearance, and they would want a CBC a day before the procedure to determine if she is ok for surgery. Thanks * Telephone Encounter - Yesi Figueroa, EVERT - 03/01/2025 3:24 PM EDT Discussed Hysteroscopy, polypectomy, D&C at last appointment. Yesi Figueroa, RN documented in this encounterOhiohealth [facility] Hospital07-24-2025 Telephone encounter Note * Telephone Encounter - Emilie Lennon MD - 03/03/2025 8:15 AM EDT Surgery sheet was completed. Forwarded epic message regarding this. I had messaged her oncology team for clearance, and they would want a CBC a day before the procedure to determine if she is ok for surgery. Thanks [facility] Work Phone: 1(158) 598-773707-23-2025 NoteHNO ID: [id number] Author: NOVA BERRY RN Service: ? Author Type: Registered Nurse Type: Progress Notes Filed: 03/02/2025 12:40 Note Text: Pt stated no changes to assessment from OV yesterday. Nova Berry [facility] History of Present illness Narrative* Nova Berry RN - 03/02/2025 9:40 AM EDT Pt stated no changes to assessment from OV yesterday. Nova Berry RN documented in this encounterOhiohealth [facility] Hospital07-22-2025 Telephone encounter Note * Telephone Encounter - Yesi Figueroa RN - 03/01/2025 3:24 PM EDT Discussed Hysteroscopy, polypectomy, D&C at last appointment. Yesi Figueroa RN [facility]07-22-2025 [facility] History of Present illness Narrative* Sonali Love APRN.SHAQ - 03/01/2025 9:23 AM EDT Chief Complaint Patient presents with: Established Patient HPI: Liz Robles is a 69 year old female who presents here today for evaluation for treatment tomorrow. Per Dr. Martinez's previous note: H/o she appreciated a lump in the left breast about 2 months ago. She underwent bilateral mammogramon 11/26/2024. There was a 3 cm irregular [...] apocrine features at least Mitchel grade 2. ER/CA both negative. HER2 2+. Nonamplified on FISH testing. CT of the chest, abdomen pelvis on 12/14/2024 showed a near 2 and half centimeter left breast mass and a few less than 6 mm pulmonary nodules. There was an indeterminate 1.3 cm segment liver lesion.MRI was recommended for further characterization. +rash to arms and legs-worse. Medrol dose did not help. Was seen in ED for constipation-now resolved. Appetite:Good. Wt. up 7# since 01/04/25. Energy level:Good. Denies fevers. 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 Past medical history, appointments, medications, allergies reviewed. No changes. EXAM: BP 146/74 Pulse 100 Temp 36.8 C (98.3 F) (Temporal) Wt 76.7 kg (169 lb) LMP (LMP Unknown) SpO2 100% BMI 28.12 kg/m APPEARANCE Well appearing, alert, in no acute distress, well-hydrated, well nourished. HEART RRR with normal S1 and S2, no murmurs LUNG clear to auscultation BREAST FEMALE L breast mass 1x1cm mobile -responding LYMPH NODES No cervical lymphadenopathy, No supraclavicular lymphadenopathy, and No axillary lymphadenopathy. ABDOMEN bowel sounds normoactive, soft, non-tender EXTREMITIES No edema NEURO Awake, alert and oriented x 3, Normal gait, and No involuntary motions. SKIN diffuse rash to extrem/chest/face LABS: Latest Ref Rng 02/16/2025 02/23/2025 03/01/2025 WBC 3.70 - 11.00 k/uL 4.36 2.75 (L) 2.54 (L) RBC 3.90 - 5.20 m/uL 3.77 (L) 3.47 (L) 3.27 (L) Hemoglobin 11.5 - 15.5 g/dL 12.7 11.7 11.2 (L) Hematocrit 36.0 - 46.0 % 36.0 33.1 (L) 31.8 (L) MCV 80.0 - 100.0 fL 95.5 95.4 97.2 MCH 26.0 - 34.0 pg 33.7 33.7 34.3 (H) MCHC 30.5 - 36.0 g/dL 35.3 35.3 35.2 RDW-CV 11.5 - 15.0 % 12.0 12.3 12.6 Platelet Count 150 - 400 k/uL 178 115 (L) 142 (L) MPV 9.0 - 12.7 fL 9.0 9.4 9.1 Neut% % 49.5 44.7 43.3 Abs Neut (ANC) 1.45 - 7.50 k/uL 2.16 1.23 (L) 1.10 (L) Lymph% % 42.7 48.0 50.8 Abs Lymph 1.00 - 4.00 k/uL 1.86 1.32 1.29 [place]% % 5.7 5.1 3.9 Abs [place] <0.87 k/uL 0.25 0.14 0.10 Eosin% % 0.7 0.7 0.4 Abs Eosin <0.46 k/uL 0.03 <0.03 <0.03 Baso% % 0.9 1.1 0.8 Abs Baso <0.11 k/uL 0.04 0.03 <0.03 Immature Gran % % 0.5 0.4 0.8 IMMATURE GRANS (ABS) <0.10 k/uL <0.03 <0.03 <0.03 NRBC /100 WBC 0.0 0.0 0.0 Absolute nRBC <0.01 k/uL <0.01 <0.01 <0.01 DTYPE Auto Auto Auto Latest Ref Rng 02/16/2025 02/23/2025 03/01/2025 Protein, Total 6.3 - 8.0 g/dL 6.5 6.3 6.5 Albumin 3.9 - 4.9 g/dL 4.1 4.0 4.1 Calcium 8.5 - 10.2 mg/dL 9.8 9.8 9.8 Bilirubin, Total 0.2 - 1.3 mg/dL 0.3 0.5 0.5 Alkaline Phosphatase 34 - 123 U/L 65 62 63 AST 13 - 35 U/L 20 18 21 ALT 7 - 38 U/L 35 26 30 Glucose 74 - 99 mg/dL 103 (H) 113 (H) 102 (H) BUN 7 - 21 mg/dL 17 16 12 Creatinine 0.58 - 0.96 mg/dL 0.69 0.75 0.64 Sodium 136 - 144 mmol/L 139 139 140 Potassium 3.7 - 5.1 mmol/L 4.0 3.8 4.0 Chloride 98 - 107 mmol/L 104 106 105 CO2 22 - 30 mmol/L 25 24 21 (L) Anion Gap 8 - 15 mmol/L 10 9 14 eGFR >=60 mL/min/1.73m 93 86 95 Latest Ref Rng 02/16/2025 02/23/2025 03/01/2025 Magnesium 1.7 - 2.3 mg/dL 2.1 2.1 2.1 TSH/T4/Cortisol: Pending ASSESSMENT/PLAN: 1. Malignant neoplasm of upper-inner quadrant of left breast in female, estrogen receptor negative (HCC) - ICD9: 174.2, V86.1, ICD10: C50.212, Z17.1 Clinical stage from 01/04/2025: Stage IIB (cT2, cN0, cM0, G2, ER-, CA-, HER2-) - Signed by Orville Martinez DO [...] the administration of carboplatin and paclitaxel along withpembrolizumab on a weekly schedule x 12 followed [...] US. - Tolerating treatment well except for rash/constipation. L breast mass responding. - Reviewed CBC/CMP/Mag with pt. - TSH/T4/Cortisol pending. - Continue current medications. - Repeat CT chest after completion of carbo/taxol. - Rx pred. taper. Advised pt. to send my chart message to Dr. Martinez on Friday with an update on rash. - Advised pt. to take neurontin 100mg (1 capsule) nightly then next week 200mg nightly. - Proceed as scheduled tomorrow for #3 Carbo/taxol-pending labs. Hold keytruda d/t rash. - Follow up as scheduled. - Pt. aware to call office with any questions/concerns. The patient indicates understanding of these issues and agrees with the plan. Discussed case with Dr. Martinez who agrees with treatment plan. All documentation from previous visit of 02/08/25-Dr. Martinez/myself was copied and pasted, documentation has been reviewed and edited as necessary for today's visit. Sonali Love APRN.SHAQ documented in this encounterOhiohealth [facility] Hospital07-21-2025 Telephone encounter Note * Telephone Encounter - Noemi Meier RN - 02/28/2025 1:[address] Martinez, ok to try acupuncture. If she has someone she knows, that's fine or we can suggest someone. Elise Meier RN [facility] Work Phone: 1(814) 855-680007-21-2025 Miscellaneous Notes* Telephone Encounter - Noemi Meier RN - 02/28/2025 1:[address] Martinez, ok to try acupuncture. If she has someone she knows, that's fine or we can suggest someone. Elise Meier RN documented in this encounterOhiohealth Berger Hospital07-20-2025 Discharge summary [facility] Medical Records Department [address] [place] [address] Emergency Department Summary 02/27/25 MR#: [id number] Acct: [id number] Name: LIZ ROBLES Rep #:[id number] : 1955 69 From: Cuba Castro MD [...] Type Severity Reaction Status Date / Time [id number]-[id number] Reductase AdvReac Pain in Verified 02/27/25 10:20 [...] fecal impaction. With nurse in room as jewel staker patient was digitally disimpacted. There was significant [...] Babita Morataya NP Referrals: Babita Morataya NP, ENERGY AND SUSTAINABILITY MANAGER-C [Primary Care Provider] - As Needed Activity Restrictions/Additional Instructions: 1. Recommend increase fluid intake especially with the hot muggy weather this summer. 2. Recommend 1 cap of MiraLAX daily for the next week. If you start to have loose stools back down to half Per day Print Language: Kosovan Disposition Disposition: Home, Self Care What to do if you have Problems For any increased pain, shortness of breath, bleeding, nausea or vomiting, chestpain, or any unexpected problems, contact your Primary Care Provider. Call [facility] ([phone]) or report tothe closest Emergency Room. Call 911 if necessary. 02/27/25 1048 Cosigner Signature (if applicable): CC: ENERGY AND SUSTAINABILITY MANAGER-C Babita Morataya ~ Signed [facility]07-17-2025 Telephone encounter Note* Telephone Encounter - Thais Davis - 02/24/2025 3:02 PM EDT Thank you. [facility] Work Phone: [phone]) 178-115307-17-2025 Miscellaneous Notes* Telephone Encounter - Thais Davis - 02/24/2025 3:02 PM EDT Thank you. * Telephone Encounter - Jennifer Burk RN - 02/24/2025 2:14 PM EDT Patient will go onto adriamycin, cytoxan, keytruda, & neulasta Q21 days x 4 cycles. Jennifer Burk RN * Telephone Encounter - Thais Davis - 02/24/2025 1:55 PM EDT Please advise of treatment after 04/06. Appointment notes state after C4-4 of Q3WK CARBO/TAXOL/KEYTRUDA, patient should have Keytruda/Onpro only. Dixie orders differ. Please advise for scheduling. Thank you. documented in this encounterOhiohealth Berger Hospital07-17-2025 Telephone encounter Note * Telephone Encounter - Jennifer Burk RN - 02/24/2025 2:14 PM EDT Patient will go onto adriamycin, cytoxan, keytruda, & neulasta Q21 days x 4 cycles. Jennifer Burk RN [facility]07-17-2025 Telephone encounter Note* Telephone Encounter - Thais Davis - 02/24/2025 1:55 PM EDT Please advise of treatment after 04/06. Appointment notes state after C4-4 of Q3WK CARBO/TAXOL/KEYTRUDA, patient should have Keytruda/Onpro only. Dixie orders differ. Please advise for scheduling. Thank you. [facility]07-15-2025 [facility]07-[facility] History of Present illness Narrative* Emilie Lennon MD - 02/22/2025 2:32 PM EDT Liz Robles is a 69 year old [...] Living3 SAB0 IAB0 Ectopic0 Multiple0 Live Births0 [employer] History LMP: LMP Unknown, Postmenopausal Age at Menarche: 11 Age at First : Age at Menopause: 44 [employer] History Comments: Sexual Activity: No sexual activity data on record; No partner data on record Contraception: No contraception data on record PAST MEDICAL HISTORY Diagnosis Date Breast cancer (HCC) 11/2024 left breast Essential hypertension PAST SURGICAL HISTORY Procedure Laterality Date BX OF BREAST; INCISIONAL Left 11/2024 [id number]. hx of eye surgery FAMILY HISTORY Problem [...] As of Date: 02/22/2025 Allergen Noted Reaction [id number] REDUCTASE INHIBIT*12/13/2024 Myalgia Fully Assessed 02/22/2025 REVIEW [...] Level: 4 - Moderate documented in this encounterOhiohealth Berger Hospital07-14-2025 Telephone encounter Note * Telephone Encounter - Jennifer Burk RN - 02/21/2025 4:36 PM EDT Spoke to patient. Reviewed gabapentin instructions. Patient will continue cold socks/gloves. Jennifer Burk RN [facility]07-14-2025 Miscellaneous Notes* Telephone Encounter - Jennifer Burk RN - 02/21/2025 4:36 PM EDT Spoke to patient. Reviewed gabapentin instructions. Patient will continue cold socks/gloves. Jennifer Burk RN * Telephone Encounter - Jennifer Burk RN - 02/21/2025 11:25 AM EDT Care Coordination Triage Note Cancer [facility] Situation: Patient reports Other pain in her feet, rash Background: Breast. Paclitaxel, Carboplatin, & Keytruda Assessment: At first I thought it was plantar fascitis so she got new orthotics. Lasted for about a week. Itsort've went away but it's still there. Patient stated the left sided foot pain started about a week after the / treatment. Patient stated she was using a cane for a couple of days d/t issues withwalking, patient stated she is able to walk today. Patient stated she had swelling in her right legafter second treatment. Swelling lasted a day and [...] up and down steps. Patient stated she isambulating easier today. Fevers/chills: denies Rash: looking pretty nasty. Back Tender Pulp Drier gave her a stronger ointment to use. Patient stated theointment from the trimmer sawyer seems to be helping more with the itching. Patient isn't sure whichcream she is using but can send us a message through . Patient stated she took a medrol dose pack 02/09. Developed left sided foot pain a week later. Recommendations: Per RNCC, patient directed to: Manage at home. Instructions provided. Will discuss with Dr. Michelle Burk RN February 21, 2025 11:25 AM documented in [place] encounterDanielle [place] [address]-14-2025 Telephone encounter Note * Telephone Encounter - WmJenniferEVERT - 02/21/2025 11:25 AM EDT Care Coordination Triage Note Cancer [facility] Situation: Patient reports Other pain in her feet, rash Background: Breast. Paclitaxel, Carboplatin, & Keytruda Assessment: At first I thought it was plantar fascitis so she got new orthotics. Lasted for about a week. Itsort've went away but it's still there. Patient stated the left sided foot pain started about a week after the 02/09 treatment. Patient stated she was using a cane for a couple of days d/t issues withwalking, patient stated she is able to walk today. Patient stated she had swelling in her right legafter second treatment. Swelling lasted a day and [...] up and down steps. Patient stated she isambulating easier today. Fevers/chills: denies Rash: looking pretty nasty. Back Tender Pulp Drier gave her a stronger ointment to use. Patient stated theointment from the trimmer sawyer seems to be helping more with the itching. Patient isn't sure whichcream she is using but can send us a message through . Patient stated she took a medrol dose pack 02/09. Developed left sided foot pain a week later. Recommendations: Per RNCC, patient directed to: Manage at home. Instructions provided. Will discuss with Dr. Michelle Burk RN February 21, 2025 11:25 AM [facility]07-11-2025 Telephone encounter Note* Telephone Encounter - Yesi Figueroa RN - 02/18/2025 3:58 PM EDT Spoke with patient. Agreeable to 02/22 with SW instead. Yesi Figueroa RN [facility]07-11-2025 Miscellaneous Notes* Telephone Encounter - Yesi Figueroa RN - 02/18/2025 3:58 PM EDT Spoke with patient. Agreeable to 02/22 with SW instead. Yesi Figueroa RN * Telephone Encounter - Elizabeth Cleaning RN - 02/18/2025 3:50 PM EDT Left message for patient to call office. She is new [facility]I with JOHANNA on 02/24. JOHANNA wanted to make sure patient was aware that she would not be the one doing her surgery. Wanted to offer 02/22 at 2:40pm with LILLIE instead if she'd rather see a surgeon that could do surgery. I did place this slot on hold for now. If she'd rather keep appt with JOHANNA that is fine too. She just wanted to make sure she knew she does not do surgeries. Elizabeth Cleaning RN documented in this encounterOhiohealth Berger Hospital07-11-2025 Telephone encounter Note * Telephone Encounter - Elizabeth Cleaning RN - 02/18/2025 3:50 PM EDT Left message for patient to call office. [...] does not do surgeries. Elizabeth Cleaning RN [facility]07-02-2025 [facility]07-02-2025 History of Present illness Narrative* Erin Hernandez RN - 02/09/2025 9:03 AM EDT Patient states when my port was accessed yesterday, it burned and it kept burning after she took it out. Chest xray complete. Port with correct placement. c/o muscle spasm around port site this morning. Applied warm compress; pt reports improvement and denies any complaints at this time. documented in this encounterOhiohealth Berger Hospital07-01-2025 History of Present illness Narrative* Thais Solis RT(R) - 02/08/2025 12:00 PM EDT Radiology Service Progress Note PATIENT NAME: Liz Robles DATE OF SERVICE: February 08, 2025 TIME: 8:29 PM PATIENT IDENTITY VERIFICATION COMPLETED USING TWO (2) IDENTIFIERS: Name and Date of confirmedby patient verbally. FALL SCREENING: Has the patient had 2 falls in the last year or 1 fall with injury or currently using an Ambulatory Assistive Device (Walker, Cane, Wheelchair, Crutches, etc.)? No PATIENT GENDER DATA: Assigned female at . status: : No status:NO. PATIENT RELEVANT IMPLANT DATA REVIEWED: Not Applicable PATIENT PRESENTS WITH AN IMPLANTABLE OR ATTACHED LABORATORY GENETICIST: No RADIOLOGY DEPARTMENT: General X-ray: Exam(s) Completed: Chest X-Ray PERIPHERAL IV DATA: Not applicable SIGNED BY: RT Aron(R) February 08, 2025 8:29 PM documented in this encounterOhiohealth Berger Hospital07-01-2025 [facility]07-01-2025 [facility]07-01-2025 History of Present illness Narrative* Sonali Love APRN.PEANUT SHAKER - 02/08/2025 10:35 AM EDT Chief Complaint Patient presents with: Established Patient HPI: Liz Robles is a 69 year old female who presents here today for evaluation for treatment tomorrow. Per Dr. Martinez's previous note: H/o she appreciated a lump in the left breast about 2 months ago. She underwent bilateral mammogramon 11/26/2024. There was a 3 cm irregular [...] apocrine features at least Mitchel grade 2. ER/CA both negative. HER2 2+. Nonamplified on FISH testing. CT of the chest, abdomen pelvis on 12/14/2024 showed a near 2 and half centimeter left breast mass and a few less than 6 mm pulmonary nodules. There was an indeterminate 1.3 cm segment liver lesion.MRI was recommended for further characterization. +rash to [...] 1.00 - 4.00 k/uL 1.28 1.46 1.62 [place]% % 4.8 4.4 5.6 Abs [place] <0.87 k/uL 0.17 0.13 0.18 Eosin% % [...] Stage IIB (cT2, cN0, cM0, G2, ER-, CA-, HER2-) - Signed by Orville Martinez DO [...] the administration of carboplatin and paclitaxel along withpembrolizumab on a weekly schedule x 12 followed [...] 01/04/25-Dr. Martinez was copied and pasted, documentation hasbeen reviewed and edited as necessary for today's visit. Sonali Love APRN.SHAQ documented in this encounterOhiohealth Berger Hospital06-27-2025 Telephone encounter Note * Telephone Encounter - Deborah Villavicencio LISW - 02/04/2025 2:13 PM EDT PSYCHOSOCIAL SCREENING ASSESSMENT Date of Service: February [...] on file Marital status: Parent(s): Child/Children: Yes. medication care manager arrangements needed: No Siblings: 1 brothers Home Health Provider: No Community Services: No Antoinette Identified: Yes Gnosticism/Spirituality: Synagogue Are these practices or beliefs that may affect or influence treatment? 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 Income source: Social Security incremental income (SSI) and Income Insurance: Medicare with co-insurance Prescription coverage: Yes [facility] the [facility] No Financial Distress: No : [...] EPIC: No Health Care Durable Power of Kitchen Supervisor: No and provided Living Will information for patient to review Scanned into EPIC: No Guardianship: No Scanned into EPIC:NA Reasons Advanced Directives were not Addressed: Patient not interested due to spouse/next of kin ismedical decision maker Advance Care Planning Goals of Care Date of Discussion: 02/04/2025 DIscussion Participants: Liz Robles Clinical: SHANICE Nina In this encounter: Explained the [place] Order of Decision Makers and patient expressed understanding. and Patient sharedthey would like , Artem Robles, to make health care decisions for them if they are not ableto themselves. COPING STATUS: Stress: Not on file Coping Strengths: supportive relationships with immediate family, with friends, with extended family, with neighbors, and with synagogue spirituality successful managing past crises hopefulness self [...] as needed Resources and Referrals: Internal: [facility] - Discussed with pt, she reports she does not wish to engage in the program at this time as she is worried she may gt connected with a mentor who had a negative experience. Shereports she would like to focus on her own recovery and make it as positive as possible. Pt reportsstephanie may reconsider the program in the future. External: [facility] Other [place] CLINICAL IMPRESSION: Liz is a 69 year old female beginning treatment for triple negative breast cancer. She reportsstephanie has no side effects from treatments she's received so far. Pt denies any fatigue, n/v, or any other concerns. She does report that she shaved her head this week as her hair was coming out by thehand full. Pt does report that was a bit of an emotional experience however report she is overall v caroline optimistic about her treatment. Pt reports she receives support from her , daughter, friends, synagogue family and neighbors. Pt reports she relies on her Faith antoinette a lot during this time and reports she believes her lackof side effects is d/t prayer. She reports she has received a significant number of phone calls from people in the synagogue as well as her family checking on her and letting her know how much they care. Pt reports the outpouring of support has been overwhelming and humbling. Pt reports she continues to work 3 days per week and has been able to maintain her life as it was prior to beginning treatment. 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 She is hopeful that she will be able to continue with herlife as normal as she continues with treatment. Pt declines any concerns financially, emotionally, or with transportation. She reports she was informed by financial navigation that her treatment willbe 100% covered. SW oriented pt to SW [...] SW listed in Care Team tab: Yes AVA Nina-S [facility]06-27-2025 Miscellaneous Notes* Telephone Encounter - Deborah Villavicencio LISW - 02/04/2025 2:13 PM EDT PSYCHOSOCIAL SCREENING ASSESSMENT Date of Service: February [...] on file Marital status: Parent(s): Child/Children: Yes. medication care manager arrangements needed: No Siblings: 1 brothers Home Health Provider: No Community Services: No Antoinette Identified: Yes Gnosticism/Spirituality: Synagogue Are these practices or beliefs that may affect or influence treatment? 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 Income source: Social Security incremental income (SSI) and Income Insurance: Medicare with co-insurance Prescription coverage: Yes Is the patient appropriate for referral to [facility] Assistance program? No Financial Distress: No [place]aston: No FOOD INSECURITY Within the past year, have you worried about how you would buy or obtain food? No LIVING ARRANGEMENTS: Type: House- independent colonial Resides with: Artem Gonzalez Transportation Needs: Not on file FUNCTIONAL STATUS: [...] EPIC: No Health Care Durable Power of Kitchen Supervisor: No and provided Living Will information for patient to review Scanned into EPIC: No Guardianship: No Scanned into EPIC:NA Reasons Advanced Directives were not Addressed: Patient not interested due to spouse/next of kin ismedical decision maker Advance Care Planning Goals of Care Date of Discussion: 02/04/2025 DIscussion Participants: Liz Robles Clinical: SHANICE Nina In this encounter: Explained the [place] Order of Decision Makers and patient expressed understanding. and Patient sharedthey would like Artem, to make health care decisions for them if they are not ableto themselves. COPING STATUS: Stress: Not on file Coping Strengths: supportive relationships with immediate family, with friends, with extended family, with neighbors, and with synagogue spirituality successful managing past crises hopefulness self [...] as needed Resources and Referrals: Internal: [facility] - Discussed with pt, she reports she does not wish to engage in the program at this time as she is worried she may gt connected with a mentor who had a negative experience. Shereports she would like to focus on her own recovery and make it as positive as possible. Pt reportsstephanie may reconsider the program in the future. External: [facility] [place] CLINICAL IMPRESSION: Liz is a 69 year old female beginning treatment for triple negative breast cancer. She reportsroshane has no side effects from treatments she's received so far. Pt denies any fatigue, n/v, or any other concerns. She does report that she shaved her head this week as her hair was coming out by thehand full. Pt does report that was a bit of an emotional experience however report she is overall v caroline optimistic about her treatment. Pt reports she receives support from her , daughter, friends, synagogue family and neighbors. Pt reports she relies on her Faith antoinette a lot during this time and reports she believes her lackof side effects is d/t prayer. She reports she has received a significant number of phone calls from people in the synagogue as well as her family checking on her and letting her know how much they care. Pt reports the outpouring of support has been overwhelming and humbling. Pt reports she continues to work 3 days per week and has been able to maintain her life as it was prior to beginning treatment. 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 She is hopeful that she will be able to continue with herlife as normal as she continues with treatment. Pt declines any concerns financially, emotionally, or with transportation. She reports she was informed by financial navigation that her treatment willbe 100% covered. SW oriented pt to SW [...] SW listed in Care Team tab: Yes AVA Nina-Tiffany [facility] Telephone encounter Note * Telephone Encounter - Thais Davis - 02/03/2025 7:58 AM EDT Schedule updated [facility] Work Phone: [phone] Miscellaneous Notes* Telephone Encounter - Thais Davis - 02/03/2025 7:58 AM EDT Schedule updated * Telephone Encounter - Noemi Meier RN - 01/26/2025 9:33 AM EDT Spoke with pharmacist, Harpreet Lopez. D1 should be 3-4 hours and D8, D15 are 2 hours. Elise Meier RN * Telephone Encounter - Sylwia Sanchez - 01/26/2025 8:27 AM EDT Patient called to schedule April treatments.She advised her D! Should not be 7 hrs that it takes no more than 3 hrs. Please advise Sylwia Sanchez documented in [facility] encounterOhio[facility] Telephone encounter Note * Telephone Encounter - Noemi Meier RN - 01/26/2025 9:33 AM EDT Spoke with pharmacist, Harpreet Lopez. D1 should be 3-4 hours and D8, D15 are 2 hours. Elise Meier RN [facility] Work Phone: [phone] Telephone encounter Note* Telephone Encounter - Sylwia Sanchez - 01/26/2025 8:27 AM EDT Patient called to schedule Sophie treatments.She advised her D! Should not be 7 hrs that it takes no more than 3 hrs. Please advise Sylwia Sanchez [facility]06-13-2025 Telephone encounter Note* Telephone Encounter - Fiordaliza Perdomo LPN - 01/21/2025 2:56 PM EDT Spoke with pt. Informed Tylenol for the pain, If over the weekend she notices any pus coming from anywhere around the port that she should go to the ER. Pt. Voiced understanding. Fiordaliza Perdomo LPN [facility]06-13-2025 Miscellaneous Notes* Telephone Encounter - Fiordaliza Perdomo LPN - 01/21/2025 2:56 PM EDT Spoke with pt. Informed Tylenol for the pain, If over the weekend she notices any pus coming from anywhere around the port that she should go to the ER. Pt. Voiced understanding. Fiordaliza Perdomo LPN * Telephone Encounter - Orville Martinez DO - 01/21/2025 2:52 PM EDT Agree. Tylenol for pain control. ED evaluation if over the weekend she sees any pus coming from anywhere around the port. Doubt that will happen. I think it is just healing itself and right now. Orville Martinez DO * Telephone Encounter - Noemi Meier RN - 01/21/2025 1:46 PM EDT Care Coordination Triage Note Cancer [place] Situation: Patient reports Other pain at port [...] instructions. No fever or chills. 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 Noemi Meier RN January 21, 2025 1:46 PM * Telephone Encounter - Thais Davis - 01/21/2025 12:50 PM EDT Patient calls stating she has a throbbing ache from her port. She is asking if this is okay and what she can take for it. Please advise. documented in this encounterOhio[facility]06-[facility]25 Telephone encounter Note * Telephone Encounter - Orville Martinez DO - 01/21/2025 2:52 PM EDT Agree. Tylenol for pain control. ED evaluation if over the weekend she sees any pus coming from anywhere around the port. Doubt that will happen. I think it is just healing itself and right now. Orville Martinez DO [facility]06-13-2025 Telephone encounter Note* Telephone Encounter - Noemi Meier RN - 01/21/2025 1:46 PM EDT Care Coordination Triage Note Cancer [place] Situation: Patient reports Other pain at port [...] instructions. No fever or chills. 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 Noemi Meier RN January 21, 2025 1:46 PM [facility] Work Phone: [phone] Telephone encounter Note* Telephone Encounter - Thais Davis - 01/21/2025 12:50 PM EDT Patient calls stating she has a throbbing ache from her port. She is asking if this is okay and what she can take for it. Please advise. [facility] Work Phone: 1(480) 443-607306-11-2025 Telephone encounter Note* Telephone Encounter - Jennifer Burk RN - 01/19/2025 11:37 AM EDT CYCLE 1/DAY 1 POST TREATMENT CALL Today's date: January 19, 2025 Treatment Regimen: Carboplatin/Taxol/Keytruda C1D1 Date: 01/18/25 Called patient to follow-up on symptom management. Spoke with patient I feel normal today. SYMPTOM ASSESSMENT Neuro: Denies headache or dizziness. CV/Resp: Patient stated she was walking today and felt a little bit of pressure go across my chest and wentdown my arm and then it went away. Lasted maybe 5 minutes, pain went down right arm armpit to elbow. Denies jaw/shoulder pain or an elephant sitting on her chest. Denies difficulty breathing, SOB,or pain with breathing. Patient stated this is not the first time this has happened. Patient statedsometimes when she first gets up to walk she gets this feeling and then it resolves. Patient statedshe has been worked up by cardiology in [...] after hours number protocol. Jennifer Burk RN [facility] Miscellaneous Notes* Telephone Encounter - Jennifer Burk RN - 01/19/2025 11:37 AM EDT CYCLE 1/DAY 1 POST TREATMENT CALL Today's date: January 19, 2025 Treatment Regimen: Carboplatin/Taxol/Keytruda C1D1 Date: 01/18/25 Called patient to follow-up on symptom management. Spoke with patient I feel normal today. SYMPTOM ASSESSMENT Neuro: Denies headache or dizziness. CV/Resp: Patient stated she was walking today and felt a little bit of pressure go across my chest and wentdown my arm and then it went away. Lasted maybe 5 minutes, pain went down right arm armpit to elbow. Denies jaw/shoulder pain or an elephant sitting on her chest. Denies difficulty breathing, SOB,or pain with breathing. Patient stated this is not the first time this has happened. Patient statedsometimes when she first gets up to walk she gets this feeling and then it resolves. Patient statedshe has been worked up by cardiology in [...] after hours number protocol. Jennifer Burk RN * Telephone Encounter - Thais Davis - 01/19/2025 10:13 AM EDT Patient returned call. Care coord line rings busy * Telephone Encounter - Jennifer Burk RN - 01/19/2025 9:58 AM EDT CYCLE 1/DAY 1 POST TREATMENT CALL Today's date: January 19, 2025 Treatment Regimen: Carboplatin/Paclitaxel/Keytruda C1D1 Date: 01/18/25 Called patient to follow-up on symptom management, no answer. Left a VM requesting a call back frompatient. Jennifer Burk RN documented in this encounterOhio[facility] Hospital06-11-2025 Telephone encounter Note * Telephone Encounter - Thais Davis - 01/19/2025 10:13 AM EDT Patient returned call. Care coord line rings busy [facility] Work Phone: [phone] 433-151806-11-2025 Telephone encounter Note* Telephone Encounter - Jennifer Burk RN - 01/19/2025 9:58 AM EDT CYCLE 1/DAY 1 POST TREATMENT CALL Today's date: January 19, 2025 Treatment Regimen: Carboplatin/Paclitaxel/Keytruda C1D1 Date: 01/18/25 Called patient to follow-up on symptom management, no answer. Left a VM requesting a call back frompatient. Jennifer Burk RN [facility]10[facility]20[facility] Telephone encounter Note* Telephone Encounter - Dania Mireles LPN - 01/18/2025 8:50 AM EDT Pt notified. Dania Mireles LPN [facility]06-10-2025 Miscellaneous Notes* Telephone Encounter - Dania Mireles LPN - 01/18/2025 8:50 AM EDT Pt notified. Dania Mireles LPN * Telephone Encounter - Thais Davis - 01/18/2025 8:39 AM EDT Scheduled first avail with [employer] - 03/04. Patient will informed while here for treatment today 01/18. * Telephone Encounter - Winsome Soriano LPN - 01/17/2025 3:44 PM EDT Patient is aware of ultrasound results. PSS- please contact patient to schedule with ATOMIC PHYSICS TEACHER here. Winsome Soriano LPN * Telephone Encounter - Orville Martinez DO - 01/17/2025 3:19 PM EDT The ultrasound of her uterus showed a endometrial polyp. This will need to be evaluated by gynecology. Referral order filed. Orville Martinez DO documented in this encounterOhio[facility] Hospital06-10-2025 Telephone encounter Note * Telephone Encounter - Thais Davis - 01/18/2025 8:39 AM EDT Scheduled first avail with [employer] - 03/04. Patient will informed while here for treatment today 01/18. [facility] Work Phone: [phone]) 140-188406-09-2025 Telephone encounter Note* Telephone Encounter - Winsome Soriano LPN - 01/17/2025 3:44 PM EDT Patient is aware of ultrasound results. PSS- please contact patient to schedule with ATOMIC PHYSICS TEACHER here. Winsome Soriano LPN [facility]06-09-2025 Telephone encounter Note* Telephone Encounter - Orville Martinez DO - 01/17/2025 3:19 PM EDT The ultrasound of her uterus showed a endometrial polyp. This will need to be evaluated by gynecology. Referral order filed. Orville Martinez DO [facility] History of Present illness Narrative* Jennifer Burk RN - 01/17/2025 11:57 AM EDT This visit was completed by phone. 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 Pre Chemo Patient identified by name and date of . YES Confirmed date and time for chemotherapy ? YES Other appointments (labs, imaging) discussed? YES Discussed where to park ([employer]), charge for parking YES Discussed where to [...] and from treatment? 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 Discussed why it is important [...] patient, which included the importance of reporting anyfever of 100.4F (38.0C) or greater to the healthcare team as noted on the provided wallet card and/or magnet. YES Time Spent: 60 minutes REFERRAL (RECOMMENDATION): N/A Jennifer Burk RN documented in this encounterOhiohealth [facility] Hospital06-06-2025 Telephone encounter Note * Telephone Encounter - Jennifer Burk RN - 01/14/2025 1:14 PM EDT Patient informed of Dr. Martinez's response, stated understanding. Jennifer Burk RN [facility]-06[facility] Miscellaneous Notes* Telephone Encounter - Jennifer Burk RN - 01/14/2025 1:14 PM EDT Patient informed of Dr. Martinez's response, stated understanding. Jennifer Burk RN * Telephone Encounter - Orville Martinez DO - 01/14/2025 12:23 PM EDT Recommend she not use omeprazole if possible. Use Pepcid instead. Orville Martinez DO * Telephone Encounter - Jennifer Burk RN - 01/14/2025 11:24 AM EDT Patient does not have antiemetic on file. Order pended for compazine. Can patient continue omeprazole? She uses PRN. Declined emla cream. Jennifer Burk RN documented in this encounterOhiohealth [facility] Hospital06-06-2025 Telephone encounter Note * Telephone Encounter - Orville Martinez DO - 01/14/2025 12:23 PM EDT Recommend she not use omeprazole if possible. Use Pepcid instead. Orville Martinez DO [facility]-06-2025 Telephone encounter Note* Telephone Encounter - Jennifer Burk RN - 01/14/2025 11:24 AM EDT Patient does not have antiemetic on file. Order pended for compazine. Can patient continue omeprazole? She uses PRN. Declined emla cream. Jennifer Burk RN [facility]-06-2025 Telephone encounter Note* Telephone Encounter - Jennifer Burk RN - 01/14/2025 11:23 AM EDT Patient decided that she is not going to use the paxman system. She will proceed with treatment next week. Jennifer Burk RN [facility]06-06-2025 Miscellaneous Notes* Telephone Encounter - Jennifer Burk RN - 01/14/2025 11:23 AM EDT Patient decided that she is not going to use the paxman system. She will proceed with treatment next week. Jennifer Burk RN * Telephone Encounter - Jennifer Burk RN - 01/13/2025 10:11 AM EDT Patient informed that [place] has a Paxman cooling system. Patient was given the rep's information to contact. Patient will let our office know what she decides to do. Jennifer Burk RN * Telephone Encounter - Orville Martinez DO - 01/13/2025 9:41 AM EDT The following approved medication requests have been transmitted electronically. Requested Prescriptions No prescriptions requested or ordered in this encounter Orville Martinez DO * Telephone Encounter - Jennifer Burk RN - 01/13/2025 8:46 AM EDT Called and spoke to patient. Discussed the Paxman option at [facility]. Discussed the portable system options like penguin and artic cold caps. Patient informed that she will need 1-2 coolers of dryice, 2 people to help apply, change every 20 min starting before treatment, during treatment, and after treatment. Patient did not realize the work that would go into the cold caps and stated she might settle for awig instead. Cranial prosthesis order pended to Dr. Martinez. Jennifer Burk RN * Telephone Encounter - Thais Davis - 01/13/2025 8:20 AM EDT Patient is requesting to speak with someone regarding cooling cap. documented in this encounterOhiohealth [facility] Hospital06-06-2025 History of Present illness Narrative* Elodia Ramírez RDMS - 01/14/2025 7:45 AM EDT Radiology Service Progress Note PATIENT NAME: Liz Robles DATE OF SERVICE: January 14, 2025 TIME: 8:59 AM PATIENT IDENTITY VERIFICATION COMPLETED USING TWO (2) IDENTIFIERS: Name and Date of confirmedby patient verbally. FALL SCREENING: Has the patient had 2 falls in the last year or 1 fall with injury or currently using an Ambulatory Assistive Device (Walker, Cane, Wheelchair, Crutches, etc.)? No PATIENT GENDER DATA: Assigned female at . status: : No status:NO. PATIENT RELEVANT IMPLANT DATA REVIEWED: Not Applicable PATIENT PRESENTS WITH AN IMPLANTABLE OR ATTACHED LABORATORY GENETICIST: No RADIOLOGY DEPARTMENT: Ultrasound PERIPHERAL IV DATA: Not applicable SIGNED BY: Elodia Ramírez RDMS January 14, 2025 8:59 AM documented in this encounterOhiohealth Berger Hospital06-06-2025 [facility] Telephone encounter Note* Telephone Encounter - Jennifer Burk RN - 01/13/2025 10:11 AM EDT Patient informed that [place] has a Paxman cooling system. Patient was given the rep's information to contact. Patient will let our office know what she decides to do. Jennifer Burk RN [facility]06-05-2025 Telephone encounter Note* Telephone Encounter - Orville Martinez DO - 01/13/2025 9:41 AM EDT The following approved medication requests have been transmitted electronically. Requested Prescriptions No prescriptions requested or ordered in this encounter Orville Martinez DO [facility]06-05-2025 Telephone encounter Note* Telephone Encounter - Jennifer Burk RN - 01/13/2025 8:46 AM EDT Called and spoke to patient. Discussed the Paxman option at [facility]. Discussed the portable system options like penguin and artic cold caps. Patient informed that she will need 1-2 coolers of dryice, 2 people to help apply, change every 20 min starting before treatment, during treatment, and after treatment. Patient did not realize the work that would go into the cold caps and stated she might settle for awig instead. Cranial prosthesis order pended to Dr. Martinez. Jennifer Burk RN [facility]06-05-2025 Telephone encounter Note* Telephone Encounter - Thais Davis - 01/13/2025 8:20 AM EDT Patient is requesting to speak with someone regarding cooling cap. [facility] Work Phone: 1([phone]) 741-644406-05-2025 [facility]05-30-2025 Telephone encounter Note* Telephone Encounter - Thais Davis - 01/07/2025 8:24 AM EDT 3 cycles entered Start email sent [facility] Work Phone: 1(444) 898-349405-30-2025 Miscellaneous Notes* Telephone Encounter - Thais Davis - 01/07/2025 8:24 AM EDT 3 cycles entered Start email sent * Telephone Encounter - Valorie Medellin - 01/04/2025 3:31 PM EDT AVS 01/04 IR port placement at [facility] or [facility]- patient prefers the date of 01/14/2025.SCHEDULED / 01/14 NOT AVAILABLE Labs today.DONE Begin weekly Carbo/Taxol the week of 01/17/2025. May be straight back for cycle 1. Will need CBC/CMP/MAG/TSH/T4/Cortisol for D1. Every 6 weeks- TSH/T4/Cortisol. Keytruda every 3 weeks. Cycle 2- OV/CBC/CMP/MAG. All orders are in [place]. CHEMO ED IS SCHEDULED Valorie Medellin * Telephone Encounter - Ovidio Garcias - 12/21/2024 8:49 AM EDT sent my chart message to patient , was instructed to have patient call central scheduling to schedule MRI of Breast and Liver Ovidio Garcias documented in this encounterOhiohealth Berger Hospital05-29-2025 [facility]05-29-[facility] History of Present illness Narrative* Yesi Funez LPN - 01/06/2025 11:38 AM EDT Patient was referred by: Babita Morataya APRN.[facility]AN[facility] SH[facility]ER Did patient bring outside records to appt today? : No Last mammogram on: 11/26/2024 bilateral Results: see report Patient current bra size: 36C Coping: It is normal to feel some distress when you have cancer. On a scale of 0-10 please indicatethe number that best describes your level of distress on the average over the past week. 02/17 Referred to social work: No Is the patient active on [employer] Yes Electronically Signed By: Yesi Funez LPN In Department: [facility] REVIEW [...] Date BX OF BREAST; INCISIONAL Left 11/2024 [id number]. hx of eye surgery Social History Tobacco Use Smoking status: Never Smokeless tobacco: Never Vaping Use Vaping status: Never Used Substance Use Topics Alcohol use: Not Currently Drug use: Not Currently * Kimmie Colby DO - 01/06/2025 11:30 AM EDT NEW BREAST CANCER - INITIAL SURGICAL VISIT SERVICE DATE: 12/29/2024 REFERRING PROVIDER: Dr. Elisabet Hirsch Consult requested for an opinion regarding [...] breast lump and underwent diagnotic imaging, at [place], on 11/26/2024 which showed a possible asymmetry in the left breast. Targeted US revealed a 2.6 x 1.4 x 2.3 cm, at 10:00, 4-5 cm from the nipple. US of the axilla showed a couple lymph nodes without definite abnormal morphology. Diagnosis was made at [facility] by means of ultrasound-guided core biopsy of Left breast on 12/01/2024. 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 [employer] Employment status: still working Social History Tobacco [...] cancer:Negative Pancreatic cancer: Negative OBSTETRIC RELATED HISTORY: [employer] History LMP: LMP Unknown, Postmenopausal Age at Menarche: 11 Age at First : Age at Menopause: 44 [employer] History Comments: Sexual Activity: No sexual activity data on record; No partner data on record Contraception: No contraception data on record PAST MEDICAL HISTORY: PAST MEDICAL HISTORY Diagnosis Date Breast cancer (HCC) 11/2024 left breast Essential hypertension PAST SURGICAL HISTORY: PAST SURGICAL HISTORY Procedure Laterality Date BX OF BREAST; INCISIONAL Left 11/2024 [id number]. hx of eye surgery ALLERGIES Allergen Reactions Owdihjg-Hht-Aau Red* Myalgia CURRENT MEDICATIONS: iv contrast (will be provided with radiology test) MRI LT Breast Bx Inject, intravenously, once for1 dose. No IV access, insert saline lock prior to the beginning of sedation, infusion, injection ofimaging exam. Discontinue saline lock post exam. If [...] range of motion of upper extremities. Patient ambulatesindependently BREASTS: The Patient was examined in the [...] carcinoma with apocrine features, which measures up to9.5 mm in this limited material. ER status Negative (less than 1%) ER % staining <1 Estrogen Receptor (Staining Intensity) Not Applicable Estrogen Receptor Internal Control Present and Stained as Expected Estrogen Receptor External Control Present and Stained as Expected CA status Negative (less than 1%) CA % staining <1 Progesterone Receptor (Staining Intensity) [...] GENETIC TESTING: Yes recommended Assessment ASSESSMENT: Liz oRbles is a 69 year old female with a LEFT breast 2.7 mass @ 10:00, 5 cm FN. Bx (ribbon clip) shows IDC. MRI shows a 1.2 x 1.4 x 2.8 NME @ 9:00 (not biopsied). Abnormal LN, 2nd look US of the axilla recommended. ER-CA-HER2- tH2C2-5?M0 PLAN: DIAGNOSIS: (C50.212, Z17.1) Malignant neoplasm of upper-inner quadrant of left breast in female, estrogen receptor negative (HCC) (primary encounter diagnosis) (C50.919, Z17.421) 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) I have examined Ms. Robles and reviewed the physical findings, imaging and pathology reports withher. A discussion was held with the patient [...] indications for neoadjuvant versus adjuvant systemic therapy. Miguelw Dr. Martinez to start OLGA for TNBC [...] radiation. We discussed placement of a gamaliel supervisor train operations clip localized placed prior to surgery in radiology to help me identify where in the breast the cancer is during surgery. We discussed surgical pathology margins, shave margins and possible need for additional surgery if the margins are not clear. We discussedmobilization of the surrounding breast tissue to close the acquired surgical defect. Option 1: Mastectomy with or without reconstruction We discussed removing the entire breast. We discussed the details of the mastectomy operation. Specifically we discussed the options for mastectomy and the difference between skin sparing and nipple sparing mastectomies and where the surgical scars are usually placed. We discussed options for reconstruction (implant/tissue internal audit manager vs. Autologous IRAIS free flap procedure). We discussed loss of sensation to the breast We discussed plastic/reconstructive surgery. She is scheduled to see Dr. Mock - but wishes to hold off today and see him after systemic therapy. LYMPH NODES We discussed management of her axilla. [place] lymph node biopsy is recommended. We discussed [...] combined with breast rehab intervention do not progressto chronic lymphedema. Whenever possible, patients are tested for baseline L-Dex score before cancer treatment begins and then are reassessed during regular follow-up visits using the SOZO device. Ifthe patient's L-Dex score increases above normal levels, that is a sign that lymphedema is developin g and a referral is made to physical therapy for further evaluation and early compression treatment. Lymphedema assessment with the SOZO L-Dex score is recommended to be done at baseline prior to surgery and at follow-up survivorship visits to screen for lymphedema per NCCN guidelines of breast canc er survivorship. Abnormal LN - so will have 2nd look us and possible biopsy We discussed surgical times, expectations, activity limitations and recovery times for all operations. She is unsure of her surgical decision at this time. MRI suggests consideration of bx of additionalarea if BCT is recommended - but given she is getting OLGA, will hold on that for now and see how her response is, as the extent of disease does not have to be excised if imaging suggests a pCR after OLGA NEXT STEPS Start OLGA with Dr. Martinez RTC to se me prior to completion of systemic therapy at [facility] time we will repeat MMG, US and MRI and finalize surgery She will need to see Dr. Mock at time of regroup Future Appointments Date Time Provider Department Center 01/14/2025 7:45 AM US [facility] WSTR MOB 2 RUSWS [place] 01/14/2025 10:30 AM Wstr, 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 [facility] HEMAWS Rosymarc Coronado All questions were answered and the patient had no further concerns at this time. Liz Robles was given our contact information if she has any further questions or concerns. Kimmie Colby DO, FACS Breast Surgeon [facility] cc: Babita Morataya APRN.PEANUT SHAKER Dr. Elisabet Martinez documented in this encounterOhiohealth Berger Hospital05-29-2025 NoteT[facility]05-29-2025 History of Present illness Narrative* Yesi Dawkins CT - 01/06/2025 8:30 AM EDT Radiology Service Progress Note DATE OF SERVICE: [...] Assigned female at . status: : No status:NO. PATIENT RELEVANT IMPLANT DATA REVIEWED: Yes PATIENT PRESENTS WITH AN IMPLANTABLE OR ATTACHED LABORATORY GENETICIST: No ALLERGIES: Reviewed and unchanged CONTRAST ALLERGY: NO. EXAM: MRI - CONTRAST TYPE: GROUP II PERIPHERAL IV DATA: Ambulatory: A peripheral IV was started in the Right antecubital site with a Angio cath: 22 gauge. RADIOLOGY DEPARTMENT: MR; Exam(s) Completed: Body: Liver (routine). Lavender Administered: No SIGNATURE: KEVIN RONQUILLO WHEEL BLOCKER ROSY DARVIN Hoskins PATIENT NAME: Liz Robles DATE: January 06, 2025 TIME: 8:57 AM documented in this encounterOhiohealth Berger Hospital05-29-2025 NoteTol[facility]05-28-2025 Telephone encounter Note* Telephone Encounter - Winsome Soriano LPN - 01/05/2025 12:16 PM EDT I spoke with the patient. She is seeing Dr. Colby tomorrow and will discuss the need for another biopsy vs having a mastectomy or a lumpectomy. Winsome Soriano LPN [facility]05-28-2025 Miscellaneous Notes* Telephone Encounter - Winsome Soriano LPN - 01/05/2025 12:16 PM EDT I spoke with the patient. She is seeing Dr. Colby tomorrow and will discuss the need for another biopsy vs having a mastectomy or a lumpectomy. Winsome Soriano LPN * Telephone Encounter - Thais Davis - 01/05/2025 8:57 AM EDT Patient called stating that she received a call regarding results from MRI yesterday. She was informed there was another spot on left breast and another biopsy would be needed along with armpit. She states she needs some more guidance with having a mastectomy or lumpectomy. Patient requested to speak with clinical. documented in this encounterOhiohealth Berger Hospital05-28-2025 Telephone encounter Note * Telephone Encounter - Elida Olson RN - 01/05/2025 9:21 AM EDT Called patient to assist with left breast axilla us & left breast MRI Bx appt per Dr. Rose. Patient declined the appt at this time. Patient wants to discuss the recommendations with Dr. Hirsch first. Patient will call back if Dr. Hirsch agrees with the recommendations. Dr. Rose is aware. [facility] Work Phone: [phone]) [phone] Telephone encounter Note* Telephone Encounter - Valorie Medellin - 01/05/2025 9:21 AM EDT This appt has been rescheduled as directed. Valorie Medellin [facility]05-28-2025 Miscellaneous Notes* Telephone Encounter - Valorie Medellin - 01/05/2025 9:21 AM EDT This appt has been rescheduled as directed. Valorie Medellin * Telephone Encounter - Jennifer Burk RN - 01/05/2025 8:32 AM EDT Patient is schedule for port placement on Friday, the same day as her chemo education. Please move her out to Friday or next week if either of those days work for her. Thank you. Jennifer Burk RN documented in this encounterOhiohealth Berger Hospital05-28-2025 Miscellaneous Notes* Telephone Encounter - Elida Olson RN - 01/05/2025 9:21 AM EDT Called patient to assist with left breast axilla us & left breast MRI Bx appt per Dr. Rose. Patient declined the appt at this time. Patient wants to discuss the recommendations with Dr. Hirsch first. Patient will call back if Dr. Hirsch agrees with the recommendations. Dr. Rose is aware. documented in this encounterOhiohealth Berger Hospital05-28-2025 Telephone encounter Note * Telephone Encounter - Thais Davis - 01/05/2025 8:57 AM EDT Patient called stating that she received a call regarding results from MRI yesterday. She was informed there was another spot on left breast and another biopsy would be needed along with armpit. She states she needs some more guidance with having a mastectomy or lumpectomy. Patient requested to speak with clinical. [facility] Work Phone: 1(473) 982-228405-28-2025 Telephone encounter Note* Telephone Encounter - Jennifer Burk RN - 01/05/2025 8:32 AM EDT Patient is schedule for port placement on Friday, the same day as her chemo education. Please move her out to Friday or next week if either of those days work for her. Thank you. Jennifer Burk RN [facility]05-27-2025 Telephone encounter Note* Telephone Encounter - Orville Martinez DO - 01/04/2025 5:06 PM EDT When I was completing my note I reviewed her CT scan results again and noticed the radiologist commented there were some thickening of the endometrial lining. Most likely a benign finding but I wouldlike to get an ultrasound to be sure the endometrium looks normal. Order filed. Orville Martinez DO [facility]05-27-2025 Note* Addendum Note - Orville Martinez DO - 01/04/2025 5:06 PM EDTAddended by: ORVILLE MARTINEZ on: 01/04/2025 05:06 PM Modules accepted: Orders [facility]05-27-2025 Miscellaneous Notes* Addendum Note - Orville Martinez DO - 01/04/2025 5:06 PM EDTAddended by: ORVILLE MARTINEZ on: 01/04/2025 05:06 PM Modules accepted: Orders documented in this encounterOhiohealth Berger Hospital05-27-2025 Miscellaneous Notes* Telephone Encounter - Orville Martinez DO - 01/04/2025 5:06 PM EDT When I was completing my note I reviewed her CT scan results again and noticed the radiologist commented there were some thickening of the endometrial lining. Most likely a benign finding but I wouldlike to get an ultrasound to be sure the endometrium looks normal. Order filed. Orville Martinez DO documented in this encounterOhiohealth Berger Hospital05-27-2025 Telephone encounter Note * Telephone Encounter - Noemi Meier RN - 01/04/2025 3:37 PM EDT Met with patient and introduced myself. Patient was given a My Journey binder with chemocare information, office contact information, thermometer, and additional chemotherapy resource booklets. Patient aware a nurse will review on scheduled appointment date. Elise Meier RN [facility] Work Phone: [phone]) 895-140005-27-2025 Miscellaneous Notes* Telephone Encounter - Noemi Meier RN - 01/04/2025 3:37 PM EDT Met with patient and introduced myself. Patient was given a My Journey binder with chemocare information, office contact information, thermometer, and additional chemotherapy resource booklets. Patient aware a nurse will review on scheduled appointment date. Elise Hardeep, RN documented in this encounterOhiohealth Berger Hospital05-27-2025 Telephone encounter Note * Telephone Encounter - Valorie Medellin - 01/04/2025 3:31 PM EDT AVS 01/04 IR port placement at [place] or [facility]- patient prefers the date of 01/14/2025.SCHEDULED 01/10 01/14 NOT AVAILABLE Labs today.DONE Begin weekly Carbo/Taxol the week of 01/17/2025. May be straight back for cycle 1. Will need CBC/CMP/MAG/TSH/T4/Cortisol for D1. Every 6 weeks- TSH/T4/Cortisol. Keytruda every 3 weeks. Cycle 2- OV/CBC/CMP/MAG. All orders are in [place]. CHEMO ED IS SCHEDULED Valorie Medellin [facility]05-27-2025 History of Present illness Narrative* Orville Martinez DO - 01/04/2025 2:00 PM EDT Patient referred by Dr. Hirsch for breast [...] apocrine features at least Mitchel grade 2. ER/CA both negative. HER2 2+. Nonamplified on FISH testing. CT of the chest, abdomen pelvis on 12/14/2024 showed a near 2 and half centimeter left breast mass and a few less than 6 mm pulmonary nodules. There was an indeterminate 1.3 cm segment liver lesion.MRI was recommended for further characterization. Had MRI breasts today. Scheduled for MRI liver on 01/06. PAST MEDICAL HISTORY Diagnosis Date Essential hypertension PAST SURGICAL HISTORY Procedure Laterality Date [id number]. hx of eye surgery lisinopril (ZESTRIL) 5 mg tablet Take 2.5 mg by mouth once daily. omeprazole (PRILOSEC) 40 mg capsule Take 40 mg by mouth once daily. ALLERGIES Allergen Reactions Rypdlbh-Nji-Kmf Red* Myalgia Social History Tobacco Use Smoking [...] was discussed with the patient or authorized care support representative. The patient or authorized care support representative has agreed to proceed with the sensitive examination. Fiordaliza Perdomo LPN chaperoned. PHYSICAL EXAM: Vitals: Blood pressure [...] left breast there is a superficial mobile 2x 2 cm firm mass. No left axillary adenopathy. ABDOMEN: The abdomen is nondistended. Extremities: No swelling or edema. SKIN: No jaundice. Genetic testing: STAGING: Cancer Staging Malignant neoplasm of upper-inner quadrant of left breast in female, estrogen receptor negative (HCC) Staging form: Breast, AJCC 8th Edition - Clinical stage from 01/04/2025: Stage IIB (cT2, cN0, cM0, G2, ER-, CA-, HER2-) - Signed by Orville Martinez DO [...] the administration of carboplatin and paclitaxel along withpembrolizumab on a weekly schedule x 12 followed [...] which included preparing to see the patient, swas-as-umom patient care, completing clinical documentation, performing a medically appropriate examination, counseling and educating the patient/family/caregiver, ordering medications, tests, or p rocedures, communicating with other HCPs (not separately reported), and communicating results to the patient/family/caregiver. Orville Martinez DO documented in this encounterOhiohealth Berger Hospital05-27-2025 NoteT[facility]05-27-2025 History of Present illness Narrative* Chung Jackson RT(R) - 01/04/2025 10:00 AM EDT Radiology Service Progress Note DATE OF SERVICE: [...] Assigned female at . status: : No status:NO. PATIENT RELEVANT IMPLANT DATA REVIEWED: Yes PATIENT PRESENTS WITH AN IMPLANTABLE OR ATTACHED LABORATORY GENETICIST: No ALLERGIES: Reviewed and unchanged CONTRAST ALLERGY: NO. EXAM: MRI - CONTRAST TYPE: GROUP II PERIPHERAL IV DATA: Ambulatory: A peripheral IV was started in the Right antecubital site with a Angio cath: 22 gauge. RADIOLOGY DEPARTMENT: MR; Exam(s) Completed: Chest: Breast. Lavender Administered: No SIGNATURE: RT Daysi(Laura) PATIENT NAME: Liz Robles DATE: January 04, 2025 TIME: 10:07 AM documented in this encounterOhiohealth Berger Hospital05-27-2025 NoteHNO ID: [id number] Author: CHUNG JACKSON RT(R) Service: Radiology Author [...] PATIENT PRESENTS WITH AN IMPLANTABLE OR ATTACHED LABORATORY GENETICIST: No ALLERGIES: Reviewed and unchanged CONTRAST ALLERGY: NO. EXAM: MRI - CONTRAST TYPE: GROUP II PERIPHERAL IV DATA: Ambulatory: A peripheral IV was started in the Right antecubital site with a Angio cath: 22 gauge. RADIOLOGY DEPARTMENT: MR; Exam(s) Completed: Chest: Breast. Lavender Administered: No SIGNATURE: RT Daysi(R) PATIENT NAME: Liz Robles DATE: January 04, 2025 TIME: 10:07 [facility] [id number] Telephone encounter Note* Telephone Encounter - Yesi Funez LPN - 12/27/2024 12:26 PM EDT Called and spoke to patient regarding her upcoming appointment on 01/06 with . Asked pt where she received her imaging and biopsy at. She stated biopsy was done in office at [place]. Her imaging was done at [facility]. I informed her I will be requesting her imaging for review. She verbalized understanding. Imaging received and what (MMG/US/MRI - radiology reviewed yet? Requesting from [facility] Pathology slides sent / reviewed? In epic Consults: Breast psych not this time Med onc yes Rad onc yes Plastics no pt declined. MRI not as of yet order is in system. Pt thanked me for calling her. Yesi Funez LPN [facility] Work Phone: [phone]) [phone] Miscellaneous Notes* Telephone Encounter - Yesi Funez LPN - 12/27/2024 12:26 PM EDT Called and spoke to patient regarding her upcoming appointment on 01/06 with . Asked pt where she received her imaging and biopsy at. She stated biopsy was done in office at [place]. Her imaging was done at [facility]. I informed her I will be requesting her imaging for review. She verbalized understanding. Imaging received and what (MMG/US/MRI - radiology reviewed yet? Requesting from [facility] Pathology slides sent / reviewed? In [facility] Consults: Breast psych not this time Med onc yes Rad onc yes Plastics no pt declined. MRI not as of yet order is in system. Pt thanked me for calling her. Yesi Funez LPN documented in this encounterOhiohealth Berger Hospital05-13-2025 Telephone encounter Note * Telephone Encounter - Thais Davis - 12/21/2024 11:35 AM EDT Spoke with patient who stated [place] and received another IDMission message with number to call imaging and will do that when she is able. [facility] Work Phone: [phone]) 363-778705-13-2025 Miscellaneous Notes* Telephone Encounter - Thais Davis - 12/21/2024 11:35 AM EDT Spoke with patient who stated [place] and received another IDMission message with number to call imaging and will do that when she is able. * Telephone Encounter - Thais Davis - 12/21/2024 8:42 AM EDT Please review and advise on My Chart request. Of course 01/03 is not going to happen due to it beinga holiday. If office visit needed, would this be in person or phone call. Thank you. documented in this encounterCleveland [id number] Telephone encounter Note * Telephone Encounter - Ovidio Garcias - 12/21/2024 8:49 AM EDT sent my chart message to patient , was instructed to have patient call central scheduling to schedule MRI of Breast and Liver Ovidio Garcias [facility]05-13-2025 Telephone encounter Note* Telephone Encounter - Thais Davis - 12/21/2024 8:42 AM EDT Please review and advise on My Chart request. Of course 01/03 is not going to happen due to it beinga holiday. If office visit needed, would this be in person or phone call. Thank you. [facility]05-06-2025 History of Present illness Narrative* Sylvie Boone RN - 12/14/2024 2:00 PM EDT Radiology Service Progress Note DATE OF SERVICE: [...] Assigned female at . status: : No status:NO. ALLERGIES: Reviewed and unchanged CONTRAST ALLERGY: No [...] creatinine assay has traceable calibration to isotope dilution- mass spectrometry. Refer to KDIGO guidelines for clinical interpretation. In patients with unstable renal function, e.g. those with acute kidney injury, the eGFRmay not accurately reflect actual GFR. P.O.C.T. RESULTS: N/A December 14, 2024 TREATMENT: No Hydration needed. IV SITE: Ambulatory: A peripheral IV was started in the antecubital site with a Angio cath: 22 gauge. and A Saline lock was inserted per protocol IV SITE APPEARANCE: Clean,Dry and Intact SIGNATURE: Sylvie Boone RN PATIENT NAME: Liz Robles DATE: December 14, 2024 TIME: 1:17 PM * Bing Garcias RT(R) - 12/14/2024 2:00 PM EDT Radiology Service Progress Note PATIENT NAME: Liz Robles DATE OF SERVICE: December 14, 2024 TIME: 1:59 PM PATIENT IDENTITY VERIFICATION COMPLETED USING TWO (2) IDENTIFIERS: Name and Date of confirmedby patient verbally. FALL SCREENING: Has the patient had 2 falls in the last year or 1 fall with injury or currently using an Ambulatory Assistive Device (Walker, Cane, Wheelchair, Crutches, etc.)? No PATIENT GENDER DATA: Assigned female at . status: : No status:NO. PATIENT RELEVANT IMPLANT DATA REVIEWED: Yes PATIENT PRESENTS WITH AN IMPLANTABLE OR ATTACHED LABORATORY GENETICIST: No RADIOLOGY DEPARTMENT: CT; Exam(s) Completed: Chest Abdomen Pelvis PERIPHERAL IV DATA: Site assessment: Clean,Dry and Intact, Site disposition Discontinued SIGNED BY: RT Micheline(R) December 14, 2024 1:59 PM documented in this encounterOhiohealth Berger Hospital05-06-2025 NoteToledo [facility]05-06-2025 NoteT[facility]05-06-2025 NoteT[facility]05-06-2025 History of Present illness Narrative* Bing Garcias RT(R) - 12/14/2024 1:10 PM EDT Radiology Service Progress Note PATIENT NAME: Liz Robles DATE OF SERVICE: December 14, 2024 TIME: 1:10 PM PATIENT IDENTITY VERIFICATION COMPLETED USING TWO (2) IDENTIFIERS: Name and Date of confirmedby patient verbally and Name and Date of confirmed by identification band. FALL SCREENING: Has the patient had 2 falls in the last year or 1 fall with injury or currently using an Ambulatory Assistive Device (Walker, Cane, Wheelchair, Crutches, etc.)? Emergency Room Patient: Screened in ED PATIENT GENDER DATA: Assigned female at . status: : No status:NO. PATIENT RELEVANT IMPLANT DATA REVIEWED: Yes PATIENT PRESENTS WITH AN IMPLANTABLE OR ATTACHED LABORATORY GENETICIST: No RADIOLOGY DEPARTMENT: CT; Exam(s) Completed: Abdomen/Pelvis PERIPHERAL IV DATA: Not applicable SIGNED BY: RT Micheline(R) December 14, 2024 1:10 PM documented in this encounterOhiohealth Berger Hospital05-05-2025 Telephone encounter Note * Telephone Encounter - Elisabet Hirsch DO - 12/13/2024 3:59 PM EDT Called patient to let her know that [...] final HER-2 results once they are available. Elisabet Hirsch DO [facility] Work Phone: 1(299) 417-425605-05-2025 Miscellaneous Notes* Telephone Encounter - Elisabet Hirsch DO - 12/13/2024 3:59 PM EDT Called patient to let her know that [...] final HER-2 results once they are available. Elisabet Hirsch DO documented in this encounterOhiohealth Berger Hospital05-05-2025 NoteToledo Hospital05-05-2025 History of Present illness Narrative* Bing Matute RN - 12/13/2024 9:37 AM EDT Radiation Therapy - Nursing Note (Consult) PATIENT NAME: Liz Robles PATIENT December 13, 2024 [facility] FACILITY/LOCATION: [place] Chief Complaint: consult Reason for visit: Consult. Referring physician: Internal provider Dr Hirsch Subjective Data: see pain assessment Additional Data Do you want to see a Online Content Developer? No Are you interested in information about fertility? No Status: Post-menopausal Stress Scale: On a scale of 0 to 10, what number best describes how much distress you have experienced in the past week?(0 being no distress and 10 being extreme distress) 10 Social work notified: Pt denied need to see transition social worker at this time.Pt reports feeling anxious in the midst of the staging process and not having all of the answers SIGNED by: Bing Matute RN * Sara Avalos MD - 12/13/2024 9:27 AM EDT Radiation Oncology - New Patient/Consult Note PATIENT [...] with apocrine features. It's ER negative (<1%), CA negative (<1%) and Her2 2+, FISH negative. CT scan of the C/A/P is scheduled tomorrow. ALLERGIES Allergen Reactions Lbnefuz-Oky-Dtk Red* Myalgia Current Outpatient Medications on File [...] Post-menopausal. PAST SURGICAL HISTORY Procedure Laterality Date [id number]. hx of eye surgery FAMILY HISTORY Problem [...] by: Sara Avalos MD cc: Babita Morataya [facility] [place] [address] documented in this encounterOhio[facility]-2025 [facility] Telephone encounter Note* Telephone Encounter - Sylwia Sanchez - 12/09/2024 12:29 PM EDT Spoke with patient and scheduled with Dr. Avalos on 12/13 at 9:30 Sylwia Sanchez [facility]05-01-2025 Miscellaneous Notes* Telephone Encounter - Sylwia Sanchez - 12/09/2024 12:29 PM EDT Spoke with patient and scheduled with Dr. Avalos on 12/13 at 9:30 Sylwia Sanchez * Telephone Encounter - Winsome Soriano LPN - 12/09/2024 11:50 AM EDT See below. Patient also needs to see Dr. Avalos. Winsome Soriano LPN * Telephone Encounter - Valorie Medellin - 12/09/2024 8:53 AM EDT Spoke w pt and the next available is 12/[address] Martinez, she leaves for [facility] on the so she wants to kepp her scheduled appt. Valorie Medellin * Telephone Encounter - Winsome Soriano LPN - 12/08/2024 4:38 PM EDT PSS- please schedule patient to see Dr. Martinez sooner than 01/04/2025. She also needs to see Dr. Avalos. Winsome Soriano LPN * Telephone Encounter - Orville Martinez DO - 12/08/2024 4:[address] Hirsch spoke with me about her this after at the hospital. I should see her sooner than the . Orville Martinez DO * Telephone Encounter - Thais Davis - 12/08/2024 12:54 PM EDT Please review and advise - med onc and rad onc. Appt had been scheduled for Dr. Martinez for 01/04, however, once reviewed, we can reschedule if needed CONSULT TO ONCOLOGY Status: Needs Scheduling Requested appt date: Authorizing: Elisabet Hirsch DO in [facility] Referral: [id number] (Authorized) Expires: 12/08/2025 Priority: Routine Diagnosis: Breast cancer, stage 2, left (HCC) [C50.912] Malignant neoplasm of upper-inner quadrant of left breast in female, estrogen re... documented in this encounterOhio[facility]05-01-2025 Telephone encounter Note * Telephone Encounter - Winsome Soriano LPN - 12/09/2024 11:50 AM EDT See below. Patient also needs to see Dr. Avalos. Winsome Soriano LPN [facility]05-01-2025 Telephone encounter Note* Telephone Encounter - Valorie Medellin - 12/09/2024 8:53 AM EDT Spoke w pt and the next available is 12/[address] Martinez, she leaves for [facility] on the so she wants to kepp her scheduled appt. Valorie Medellin [facility]04-30-2025 Telephone encounter Note* Telephone Encounter - Winsome Soriano LPN - 12/08/2024 4:38 PM EDT PSS- please schedule patient to see Dr. Martinez sooner than 01/04/2025. She also needs to see Dr. Avalos. Winsome Soriano LPN [facility]04-30-2025 Telephone encounter Note* Telephone Encounter - Orville Martinez DO - 12/08/2024 4:[address] Hirsch spoke with me about her this after at the hospital. I should see her sooner than the . Orville Martinez DO [facility] Work Phone: [phone] 368-686904-30-2025 Telephone encounter Note* Telephone Encounter - Liz Shane - 12/08/2024 1:03 PM EDT Talking with patient she would like to know the result of the other tests that were done for more details of her cancer diag. Can you please call her Dr. Hirsch or clinical staff. Liz Treviño [facility]04-30-2025 Miscellaneous Notes* Telephone Encounter - Liz Shane - 12/08/2024 1:03 PM EDT Talking with patient she would like to know the result of the other tests that were done for more details of her cancer diag. Can you please call her Dr. Hirsch or clinical staff. Liz Treviño documented in this encounterOhiohealth Berger Hospital04-30-2025 Telephone encounter Note * Telephone Encounter - Thais Davis - 12/08/2024 12:54 PM EDT Please review and advise - med onc and rad onc. Appt had been scheduled for Dr. Martinez for 01/04, however, once reviewed, we can reschedule if needed CONSULT TO ONCOLOGY Status: Needs Scheduling Requested appt date: Authorizing: Elisabet Hirsch DO in [facility] Referral: [id number] (Authorized) Expires: 12/08/2025 Priority: Routine Diagnosis: Breast cancer, stage 2, left (HCC) [C50.912] Malignant neoplasm of upper-inner quadrant of left breast in female, estrogen re... [facility] Work Phone: 1(315) 390-543104-30-2025 NoteT[facility]04-30-2025 History of Present illness Narrative* Elisabet Hirsch DO - 12/08/2024 12:51 PM EDT Images from the original note were not included. GENERAL SURGERY FOLLOW UP Liz is a 69-year-old female presenting for follow-up on left breast core needle biopsy results. Her accompanies her today. She was last seen in office in [place] one week ago for a left breast mass. Initial mammogram showed a 3 cm mass in the left breast, with no evidence of invasion into the chest wall. A core needle biopsy was obtained. Final pathology revealed invasive carcinoma with apocrine features, [place] grade 2. She endorses improving pain and [...] paresthesia. Liz has upcoming travel plans to [facility] from the to the and a [place] to [place] mid[place]January, which she is considering canceling. She [...] was discussed with the patient or authorized care support representative. The patient or authorized care support representative has agreed to proceed with the [...] carcinoma with apocrine features, which measures up to9.5 mm in this limited material. Results of quantitative ER, CA, and HER2 testing will follow in a linked report. Dr. Amanda Valencia has also reviewed this case and agrees with the diagnosis. Component ER status Negative (less than 1%) ER % staining <1 Estrogen Receptor (Staining Intensity) Not Applicable Estrogen Receptor Internal Control Present and Stained as Expected Estrogen Receptor External Control Present and Stained as Expected CA status Negative (less than 1%) CA % staining <1 Progesterone Receptor (Staining Intensity) [...] carcinoma with apocrine features in the upper-inner quadrantof the left breast. Tumor size is approximately [...] and Dr. Avalos, radiation oncologist, both in [place] for furtherevaluation and treatment planning. - Discussed surgical options [...] patient to report any changes or worsening. Elisabet Hirsch DO December 08, 2024 12:56 PM documented in this encounterOhiohealth [facility]04-23-2025 [facility]04-23-2025 [facility]04-23-2025 Procedure note* Candi Fowler RN - 12/01/2024 1:21 PM EDT UNIVERSAL PROTOCOL / SAFETY CHECKLIST Procedure to [...] been communicated to the patient or surrogate. [facility]04-23-[facility] Procedure note* Candi Fowler RN - 12/01/2024 1:21 PM EDT UNIVERSAL PROTOCOL / SAFETY CHECKLIST Procedure to [...] been communicated to the patient or surrogate. * Elisabet Hirsch DO - 12/01/2024 1:14 PM EDT BEDSIDE PROCEDURE NOTE PROCEDURE DATE: December 01, 2024 PROCEDURE START TIME: 12:30PM PRIMARY PROCEDURALIST: Elisabet Hirsch DO PRACTICE OFFICE ASSOCIATE(S): Candi Fowler RN INFORMED CONSENT: Informed Consent obtained [...] positioned supine on the procedure table. A finaltimeout was performed. The left breast mass was [...] pathology. Images were uploaded to the patient's [employer] medical chart. An UltraClip Dual Trigger breast [...] needle and instrument counts were correct. SIGNATURE: Elisabet Hirsch DO PATIENT NAME: Liz Robles DATE: December 01, 2024 TIME: 1:14 PM PAGER/CONTACT #: [phone] documented in this encounterOhiohealth [facility] Hospital04-23-2025 [facility]04-23-2025 Procedure note* Elisabet Hirsch DO - 12/01/2024 1:14 PM EDT BEDSIDE PROCEDURE NOTE PROCEDURE DATE: December 01, 2024 PROCEDURE START TIME: 12:30PM PRIMARY PROCEDURALIST: Elisabet Hirsch DO PRACTICE OFFICE ASSOCIATE(S): Candi Fowler RN INFORMED CONSENT: Informed Consent obtained [...] positioned supine on the procedure table. A finaltimeout was performed. The left breast mass was [...] pathology. Images were uploaded to the patient's [employer] medical chart. An UltraClip Dual Trigger breast [...] needle and instrument counts were correct. SIGNATURE: Elisabet Hirsch DO PATIENT NAME: Liz Robles DATE: December 01, 2024 TIME: 1:14 PM PAGER/CONTACT #: [phone] [facility]04-23-2025 Instructions* Patient Instructions* Candi Fowler RN - 12/01/2024 1:14 PM EDT The following instructions are important for you related to your office visit today with the [facility] General Surgeons. Instructions After OFFICE BASED BREAST BIOPSY Please do not take aspirin or other blood thinners for the next few days. After the procedure, Steri-Strips and a dressing will be placed on your small incision. The dressing may be removed in two tothree days after the procedure. The Steri-Strips should be left in place until they fall off. If you have bleeding from the biopsy site, hold pressure with a clean gauze. If the bleeding continues, contact our office immediately. I recommend taking Advil or Tylenol for the discomfort. You should wear a comfortable but somewhat tight fitting bra. If you have significant bruising, an ice packmay improve your discomfort. Please make an appointment to return to our office in 1 week to see the ENERGY AND SUSTAINABILITY MANAGER Elizabeth Esposito. If you note any additional difficulties, questions, or concerns, you should contact our office immediately @ [phone] and ask to be transferred to the General Surgery department. documented in this encounterOhiohealth Berger Hospital04-23-2025 History of Present illness Narrative* Elisabet Hirsch, DO - 12/01/2024 12:15 PM EDT Breast Services- History and Physical SERVICE DATE: [...] presents today to discuss the results and nextsteps for biopsy. BREAST RELATED HISTORY: Abnormal Mammogram: No prior abnormal mammograms. Notes that she has been told in the past that shehas dense breast tissue and small masses may [...] No history of dysuria, frequency or incontinence. 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 This isseen in additional views and correlates with the patient's area of palpable/clinical concern. There is a calcification within the right breast. No additional significant masses, calcifications,or other findings BIRADS 0, incomplete: Ultrasound LEFT [...] year old female presenting with abnormal mammogram. Mammogramshowed a left breast mass, upper inner quadrant. Core needle biopsy performed in office. Please seeprocedure note for details. PLAN: -Core needle biopsy performed in office -Post-procedure local wound care instructions provided to patient -Return to clinic in 1 week for wound check and to discuss pathology results My recommendation will be communicated back to the requesting physician by way of the shared record. Elisbaet Hirsch DO General Surgery documented in this encounterOhiohealth [facility] Hospital04-23-2025 [facility]10-18-2024 Note Exercise nuclear stress test Patient was stressed according to Nirav protocol for [5:14] min achieving maximum [7] METs. Restingheart rate [87] bpm rosa to maximum heart [...] SUKHI PIZANO MD on 05/28/2024 08:03 AM [facility]10-17-2024 Note* Exam Date Time Procedure Performing Provider Status 05/27/24 11:32 AM Echocardiogram, Adult - CV Auth (Verified) [facility] 03-29-2023 Evaluation + Plan note Future Scheduled Tests Laboratory* Vitamin D Level 11/06/22 [facility] 03-29-2023 Note ORIGINAL EXAMINATION: BONE DENSITOMETRY 11/06/2022 [...] Sign Date: 11/06/2022 1:38:35 PM Ordering Provider: [facility]29[facility]2023 Note ORIGINAL EXAMINATION: BONE DENSITOMETRY 11/06/2022 11:29 [...] Sign Date: 11/06/2022 1:38:35 PM Ordering Provider: [facility] note Author Sukhwinder Brizuela [facility] [place] Note Date/Time March 18, 2025 11: 52am [facility] Medical Records Department [address] [place] [address] Pre-Anesthesia Evaluation 03/18/25 1140 MR#: [id number] Acct: [id number] Name: LIZ ROBLES Rep #:[id number] : 1955 69 From: Sukhwinder Brizuela MD PCP: Babita Morataya, ENERGY AND SUSTAINABILITY MANAGER-C Status:REG S DC Y Race: C Location: [place] [id number] ASA Classification* ASA Classification ASA Classification: 3 Assessment & Plan Anesthesia* Anesthesia Assessment Anesthesia Assessment: Discussed sedation and/or anesthesia options, risks, benefits, and alternatives with patient/parents/legal guardian/POA. Questions invited. The patient/parents/legal guardian/POA seems to understand and agrees to proceedwith anesthesia plan. Reviewed the physical assessment, medical history, allergy history and patient home medications list prior to surgery/procedure/anesthetic and documented any changes. Performed airway and anesthesia risk assessments. Anesthesia Type Anesthesia Type: MAC History Source History Obtained from:: Patient and Chart Anesthesia Focused Assessment* Temperature: 96.9 F Pulse Rate: 85 Blood Pressure: 129/52 Respiratory Rate: 16 Pulse Ox: 100 Oxygen Delivery Method: Room Air Airway Assessment Mouth opens: >3 cm Mallampati Score: IV Teeth Condition: Caps/Crowns (Right lower molar has a crown. It is tight.) Neck Range of motion (ROM): Full ROM Labs Anesthesia Preop lab: CBC WBC 6.4 K/mm3 (4.4-11.0) 10/23/21 10:04 10/23/21 RBC 4.71 M/mm3 (4.2-5.4) 10/23/21 10:04 10/23/21 Hgb 15.7 g/dL (12.0-15.0) H 10/23/21 10:04 2 Hct 44.6 % (37-47) 10/23/21 10:04 10/23/21 Plt Count 334 K/mm3 (150-450) 10/23/21 10:04 10/23/21 CHEMISTRY Potassium 3.9 mmol/L (3.5-5.1) 10/23/21 10:04 10/23/21 Sodium 137 mmol/L (136-145) 10/23/21 10:04 10/23/21 BUN 12 mg/dL (7-18) 10/23/21 10:04 10/23/21 Creatinine 0.86 mg/dL (0.55-1.02) 10/23/21 10:04 10/23/21 Glucose 112 mg/dL (74-106) H 10/23/21 10:04 10/23/21 COAG Pre-Assessment Diagnosis/Proposed Procedure Planned Operative Procedure(s): Hysteroscopy,D&C, polypectomy, Symphion Anesthesia History Anesthesia History - gaming associate: Anesthesia History - gaming associate Hx Hospitalization No 03/09/25 11:40 Any Problems With Anesthesia Yes: N&V 03/09/25 11:40 Cholinesterase deficiency No 03/09/25 11:40 You/Your Family Experience No 03/09/25 11:40 fever (hyperthermia) with Relationship Recent Exposure to Contagious No 03/18/25 10:43 Disease Does patient have nerve No 03/09/25 11:40 stimulator Patient instructed to have device shut off --Does patient have Pacemaker No 03/18/25 10:43 or ICD? When Was Last Pacemaker Check QUESTION #4 FULL TEXT: You/Your Family Experience fever (hyperthermia) with Anesthesia Last Oral Intake Last Oral intake: Last Oral Intake NPO since 21:30 03/18/25 10:43 Meds taken in AM with sips of No 03/18/25 10:43 water? Meds patient instructed to take am of surgery PONV PONV - gaming associate: PONV - gaming associate Female Yes 03/09/25 11:40 HX of Motion Sickness No 03/09/25 11:40 HX of N/V After Surgery No 03/09/25 11:40 Non-Smoker Yes 03/09/25 11:40 Duration of Surgery greater Yes 03/09/25 11:40 than 60 minutes Number of Risk Factors 3 03/09/25 11:40 PONV Score Moderate Risk 03/09/25 11:40 Height & Weight Height & Weight: Anesthesia: Height & Weight Height 5 ft 5 in 03/18/25 10:43 Weight: 76 kg 03/18/25 10:43 Body Mass Index (BMI) 27.8 03/18/25 10:43 Respiratory Assessment Respiratory Assessment - gaming associate: Respiratory Tract Infection Hx - gaming associate Hx Respiratory Tract Infection No 03/09/25 11:40 STOP Sleep Apnea STOP Sleep Apnea - gaming associate: STOP Sleep Apnea - gaming associate Hx Hypertension Yes: NO MEDS PRESENTLY 03/09/25 11:40 Hx Sleep Apnea No 03/09/25 11:40 CPAP BIPAP Do you snore loudly (louder No 03/09/25 11:40 than talking or can be heard Do you often feel tired/ No 03/09/25 11:40 fatigued/ sleepy during daytime? Has anyone observed you stop No 03/09/25 11:40 breathing during sleep? STOP Results Negative 03/09/25 11:40 QUESTION #5 FULL TEXT : Do you snore loudly (louder than talking or can be heard through closed doors)? 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 Specify any problems Hx of Preganancy in last 3 No 03/09/25 11:40 Months Nurse Filling Out Transfusion VCHRISTIN 03/09/25 11:40 & Questions: Date: 03/09/25 03/09/25 11:40 Time: 11:41 03/09/25 11:40 Patient unable to answer at this time (ie. confused, unrespo /Reproduction History /Reproductive History - gaming associate: /Reproductive Hx- gaming associate Hx Now No 03/09/25 11:40 Gestational Age (in weeks): EDC: Hx Hx Para Hx Section SAB No 03/09/25 11:40 Active Medications Active Medications: Current Medications Generic Name Dose Route Start Last Admin Trade Name Freq PRN Reason Stop Dose Admin Lactated Ringer's 1,000 mls @ 15 mls/hr 03/18/25 10:30 03/18/25 10:52 IV 15 mls/hr .Q48H CELIA Administration PFSH Medical History History of stress test Wears glasses Post-menopausal Cancer Open wound History of steroid therapy Gastric reflux Non-smoker Hoarseness History of echocardiogram Cardiology follow-up encounter Breast cancer Hypertension Cervical paraspinal muscle spasm GERD (gastroesophageal reflux disease) Retinal detachment High cholesterol Hx of cataract UTI (urinary tract infection) History of back problems Environmental allergies Seasonal allergies Hemorrhoids Home Medications ?Medication ?Instructions ?Recorded ?Last Taken ?Type diphenhydramine HCl 25 mg capsule 50 mg PO Q8H PRN all ergy symptoms 02/27/25 Unknown History (Benadryl) fluorometholone 0.1 % eye 1 drp LEFT EYE DAILY PRN PRN 02/27/25 Unknown History drops,suspension gabapentin 100 mg capsule 200 mg PO QHS 02/27/25 Unkno wn History pembrolizumab 50 mg intravenous 200 mg IV 02/27/25 Unk nown History solution promethazine 25 mg tablet 25 mg PO TID PRN nausea and 02/27/25 Unknown History vomiting methylprednisolone 4 mg tablets in 4 mg PO DAILY 03/09 Unknown History a dose pack Allergy/AdvReac Type Severity Reaction Status Date / Time Kwuisqg-OCO-BjS Reductase AdvReac Pain in Verified 03/09/25 11:26 Inhibitor joints Family History Uncle Alcoholism Aunt Alcoholism Breast cancer Cancer ovarian Mother Liver disease Brother High cholesterol Surgical History Hx of dilation and curettage Hx of eye surgery Social History household members: spouse housing: house Smoking Status: Never smoker alcohol intake: never substance use type: does not use what type of physical activity do you participate in: none Review of Systems (Anesthesia) ROS Narrative System reviewed and no additional complaints, except as documented. 03/18/25 1152 <Electronically signed by Sukhwinder yoder MD> Date _ Sukhwinder Brizuela MD Cosigner Signature: Date CC: ~ Signed [facility] Work Phone: Consult note Author Suman Victoria [facility] Note Date/Time March 18, 2025 12: 27pm [facility] Medical Records Department [address] [address] Anesthesia Postop Eval I 03/18/25 1226 MR#: [id number] Acct: [id number] Name: LIZ ROBLES Rep #:[id number] : 1955 69 From: Suman Victoria CRNA PCP: YEISON Vargas Status:REG S DC Y Race: C Location: [place] [address] Anesthesia: Postop Eval I Current Vital Signs Temperature: 97.5 F Pulse Rate: 86 Blood Pressure: 96/62 Respiratory Rate: 20 Pulse Ox: 97 Oxygen Delivery Method: Room Air Assessment Airway patent: Yes Spontaneous unlabored respirations: Yes Mental status: Awake and Calm nausea: No Vomiting: No Anesthesia Complication: No Fluid Hydration Crystalloid volume administer (ml): 400 Total IV fluid infused: 400 Progress Note Anesthesia document: Postop Eval 1 completed: Yes 03/18/251226 <Electronically signed by Suman martin CRNA> Date _ Suman Victoria CRNA Cosigner Signature: Date CC: ~ Signed [facility] Work Phone: Discharge summary Author Cuba Castro [facility] Note Date/Time February 27, 2025 10:4 8am [facility] Medical Records Department [address] [place] [address] Emergency Department Summary 02/27/25 MR#: [id number] Acct: [id number] Name: LIZ ROBLES Rep #:[id number] : 1955 69 From: Cuba Castro MD [...] Type Severity Reaction Status Date / Time Xcsnxid-YOG-JrJ Reductase AdvReac Pain in Verified 02/27/25 10:20 [...] fecal impaction. With nurse in room as jewel staker patient was digitally disimpacted. There was significant [...] Babita Morataya NP Referrals: Babita Morataya NP, ENERGY AND SUSTAINABILITY MANAGER-C [Primary Care Provider] - As Needed Activity Restrictions/Additional Instructions: 1. Recommend increase fluid intake especially with the hot muggy weather this summer. 2. Recommend 1 cap of MiraLAX daily for the next week. If you start to have loose stools back down to half Per day Print Language: Kosovan Disposition Disposition: Home, Self Care What to do if you have Problems For any increased pain, shortness of breath, bleeding, nausea or vomiting, chestpain, or any unexpected problems, contact your Primary Care Provider. Call [facility] ([phone]) or report to the closest Emergency Room. Call 911 if necessary. 02/27/25 2579 <Electronically signed by Cuba Castro MD> Cosigner Signature (if applicable): CC: ENERGY AND SUSTAINABILITY MANAGER-C Babita Morataya ~ Signed [facility] Work Phone: Discharge summary Author Emilie Lennon [facility] Note Date/Time March 18, 2025 12: 19pm [facility] [place] [facility] Medical Records Department [address] [place] [address] Instructions for Home/Discharge Instructions 03/18/25 1218 MR#: [id number] Acct: [id number] Name: LIZ ROBLES Rep #:[id number] : 1955 69 From: Emilie Lennon DO PCP: YEISON Vargas Status:REG S DC Discharge Instructions DC O2, CPAP, BIPAP needs Home O2 Discharge instructions: No Dressing / Incision Discharge Activity: May Not Drive (for 24 hours after surgery) and May Not Shower (for 24 hours after surgery) May resume sexual activity in: 1-2 weeks (nothing in the vagina and no soaking in water while you are having the bleeding and for at least 1 week) Weight Bearing Status: Weight bearing as tolerated Lifting Restrictions: none Dressing / Incision Call your doctor if you observe: Fever of 101 or Higher, Using more than 1 pad per hour, Dizziness, Chest pain, Increased palpitations (irregular heartbeat), Calf discomfort and Uncontrolled pain Follow Up Care Please Follow Up With: Emilie Lennon DO When: 1 week post op Test Results: Test results from this visit will be discussed in further detail at your follow- up appointment, if applicable. Discharge Plan Admission Primary Reason for Your Visit: surgery Attending Provider: Emilie Lennon Primary Care Provider: Babita Morataya NP Instructions Patient Instructions: Dilation and Curettage Print Language: Kosovan Discharge Orders/Prescriptions Prescriptions: Continued fluorometholone 0.1 % drops,suspension 1 drp LEFT EYE DAILY PRN (Reason: PRN) gabapentin 100 mg capsule 200 mg PO QHS pembrolizumab 50 mg recon soln 200 mg IV promethazine 25 mg tablet 25 mg PO TID PRN (Reason: nausea and vomiting) diphenhydramine HCl [Benadryl] 25 mg capsule 50 mg PO Q8H PRN (Reason: allergy symptoms) methylprednisolone 4 mg tablets,dose pack 4 mg PO DAILY Patient Comments: SEE DOSE PACK Referrals / Follow Up: Lorson,Babita ENERGY AND SUSTAINABILITY MANAGER, ENERGY AND SUSTAINABILITY MANAGER-C [Primary Care Provider] - Disposition Disposition (needs filled in before D/C Order can be placed): Home, Self Care 03/18/25 1219<Electronically signed by Emilie Lennon DO>Emilie Lennon DO CC: ENERGY AND SUSTAINABILITY MANAGER-C Baibta Morataya ~ Signed [facility] Work Phone: Evaluation + Plan note Future Appointments Appointment Date:10/16/2022 09:00:00 AM Scheduled Provider:BABITA MORATAYA Location:[facility] Appointment Type:PC Wellness [facility] Evaluation + Plan note Future Appointments Appointment Date:05/28/2024 07:45:00 AM Scheduled Provider: Location:[facility] Appointment Type:HL Plain Stress Test [facility] Evaluation + Plan note Future Appointments Appointment Date:07/20/2024 08:45:00 AM Scheduled Provider:AMBER PIZANO Location:[facility] Appointment Type:CV OV Future Scheduled Tests Laboratory* N-Terminal proBNP 06/18/24 Radiology* CT Coronary Angiography w+w/o Contrast 05/28/24 * CT Coronary Extracardiac 05/28/24 [facility] + Plan note Future Appointments Appointment Date:07/20/2024 08:45:00 AM Scheduled Provider:AMBER PIZANO Location:[facility] Appointment Type:CV OV Appointment Date:07/21/2024 11:00:00 AM Scheduled Provider:BABITA MORATAYA Location:[facility] Appointment Type:PC OV Future Scheduled Tests Radiology* CT Coronary Angiography w+w/o Contrast 05/28/24 * CT Coronary Extracardiac 05/28/24 [facility] Evaluation note* Diagnosis Breast cancer, stage 2, left (HCC)- Primary Malignant neoplasm of upper-inner quadrant of left breast in female, estrogen receptor negative (HCC) Infiltrating ductal carcinoma of left breast (HCC) Diarrhea, unspecified type [facility] Mass of upper inner quadrant of left breast- Primary Mass of upper inner quadrant of left breast [facility] [...] receptor negative (HCC) [facility] Diagnosis Endometrial thickening on ultrasound- Primary Increased endometrial stripe thickness Nonspecific (abnormal) findings on radiological and other examination of genitourinary organs Malignant neoplasm of upper-inner quadrant of left breast in female, estrogen receptor negative (HCC)- Primary 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, estrogen receptor negative (HCC) [facility] Diagnosis Malignant neoplasm of upper-inner quadrant of left breast in female, 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, estrogen receptor negative (HCC)- Primary 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, estrogen receptor negative (HCC) [facility] Diagnosis Malignant neoplasm of upper-inner quadrant of left breast in female, estrogen receptor negative (HCC)- Primary Malignant neoplasm of upper-inner quadrant of left breast in female, estrogen receptor negative (HCC)- Primary 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, estrogen receptor negative (HCC) [facility] Diagnosis Lesion of liver greater [...] receptor negative (HCC) [facility] Diagnosis Malignant neoplasm of upper-inner quadrant of left breast in female, estrogen receptor negative (HCC)- Primary 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) Enlarged lymph node Enlargement of lymph nodes [facility] Diagnosis 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)- Primary [facility] Diagnosis Breast cancer, stage 2, left (HCC)- Primary [facility]* Diagnosis Increased endometrial stripe thickness Nonspecific (abnormal) findings on radiological and other examination of genitourinary organs [facility] Diagnosis Encounter for education- Primary Counseling NOS [facility]* Diagnosis Endometrial polyp- Primary Polyp of corpus uteri [facility]* Diagnosis 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)- Primary Breast cancer, stage 2, left (HCC) Malignant neoplasm of upper-inner quadrant of left breast in female, estrogen receptor negative (HCC) Lung nodules Other nonspecific abnormal finding of lung field Malaise and fatigue Other malaise and fatigue Acquired hypothyroidism Unspecified hypothyroidism Hypoadrenalism (HCC) Glucocorticoid deficiency [facility]* Diagnosis 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)- Primary Malignant neoplasm of upper-inner quadrant of left breast in female, estrogen receptor negative (HCC) [facility]* Diagnosis 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)- Primary [facility] Diagnosis Malignant neoplasm of upper-inner quadrant of left breast in female, estrogen receptor negative (HCC)- Primary Breast cancer, stage 2, left (HCC) Lung nodules Other nonspecific abnormal finding of lung field [facility]* Diagnosis Breast cancer, stage 2, left (HCC)- Primary Malignant neoplasm of upper-inner quadrant of left breast in female, estrogen receptor negative (HCC) Lung nodules Other nonspecific abnormal finding of lung field Malaise and fatigue Other malaise and fatigue Acquired hypothyroidism Unspecified hypothyroidism Hypoadrenalism (HCC) Glucocorticoid deficiency [facility]* Diagnosis Malignant neoplasm of upper-inner quadrant of left breast in female, estrogen receptor negative (HCC) [facility] Diagnosis Malignant neoplasm of upper-inner quadrant of left breast in female, estrogen receptor negative (HCC)- Primary [facility] Diagnosis Malignant neoplasm of upper-inner quadrant of left breast in female, estrogen receptor negative (HCC)- Primary Malignant neoplasm of upper-inner quadrant of left breast in female, estrogen receptor negative (HCC) [facility]* Diagnosis Malignant neoplasm of upper-inner quadrant of left breast in female, estrogen receptor negative (HCC)- Primary Breast cancer, stage 2, left (HCC) Lung nodules Other nonspecific abnormal finding of lung field [facility]* Diagnosis History of breast cancer- Primary Personal history of malignant neoplasm of breast Endometrial polyp Polyp of corpus uteri [facility]* Diagnosis Malignant neoplasm of upper-inner quadrant of left breast in female, estrogen receptor negative (HCC)- Primary Breast cancer, stage 2, left (HCC) Lung nodules Other nonspecific abnormal finding of lung field [facility] noteNo assessment information availableWUniversity Hospitals [facility] Work Phone: Evaluation note* Diagnosis Malignant neoplasm of upper-inner quadrant of left breast in female, estrogen receptor negative (HCC)- Primary Breast cancer, stage 2, left (HCC) Lung nodules Other nonspecific abnormal finding of lung field Malaise and fatigue Other malaise and fatigue Acquired hypothyroidism Unspecified hypothyroidism Hypoadrenalism (HCC) Glucocorticoid deficiency [facility]* Diagnosis Malignant neoplasm of upper-inner quadrant of left breast in female, estrogen receptor negative (HCC)- Primary [facility]* Diagnosis Visit for pre-operative examination- Primary Preoperative examination, unspecified Chemotherapy-induced neutropenia Drug induced neutropenia Uterine polyp Polyp of corpus uteri [facility]* Diagnosis Malignant neoplasm of upper-inner quadrant of left breast in female, estrogen receptor negative (HCC)- Primary Breast cancer, stage 2, left (HCC) Lung nodules Other nonspecific abnormal finding of lung field Chemotherapy-induced neutropenia Drug induced neutropenia [facility]* Diagnosis Malignant neoplasm of upper-inner quadrant of left breast in female, estrogen receptor negative (HCC)- Primary Chemotherapy-induced neuropathy (HCC) Polyneuropathy due to drugs Drug rash Dermatitis due to drugs and medicines taken internally documented in this encounter [facility] course Narrative No data available for this section [facility] Discharge instructions No data available for this section [facility] Discharge instructionsAdditional Instructions 1. Recommend increase fluid intake especially with the hot muggy weather this summer. 2. Recommend 1 cap of MiraLAX daily for the next week. If you start to have loose stools back down to half Per dayWUniversity Hospitals [facility] Work Phone: Progress note No data available for this section [facility] Reason for referral (narrative)No reason for referral information available[facility] Work Phone: Reason for visit Narrative* MRI/CT (Routine) - Closed Specialty Diagnoses / Procedures Referred By Contac t Referred To Contact CT IMAGING Diagnoses Malignant neoplasm of upper-inner quadrant of left breast in female, estrogen receptor negative (HCC) Procedures CT ABD/PEL W IVCON CT ABD & PELVIS W/CONTRAST Elisabet Hirsch, DO [address] [place] [address] Phone: tel: fax: [place] [address] Referral ID Status Reason Start Date Expiration Date V isits Requested Visits Authorized [id number] Closed Auto-Generate d Referral 12/08/2024 01/07/2026 1 1 [facility] for visit Narrative* MRI/CT (Routine) - Closed Specialty Diagnoses / Procedures Referred By Contac t Referred To Contact [facility]AG[facility] Diagnoses Malignant neoplasm of upper-inner quadrant of left breast in female, estrogen receptor negative (HCC) Procedures MRI BREAST WO/W IVCON BILATERAL MRI BREAST WITHOUT&WITH CONTRAST W/CAD BILATERAL Elisabet Hrisch, DO [address] [place] [address] Phone: tel: fax: [place] [address] Referral ID Status Reason Start Date Expiration Date V isits Requested Visits Authorized [id number] Closed Auto-Generate d Referral 12/20/2024 01/19/2026 1 1 [facility] for visit Narrative* MRI/CT (Routine) - Closed Specialty Diagnoses / Procedures Referred By Gregory t Referred To Contact [facility] IMAGING Diagnoses Lesion of liver greater than 1 cm in diameter Procedures MRI LIVER WO/W IVCON MRI ABDOMEN W/O & W/CONTRAST MATERIAL Elisabet Hirsch, DO [address] [place] [address] Phone: tel: fax: [place] [address] Referral ID Status Reason Start Date Expiration Date V isits Requested Visits Authorized [id number] Closed Auto-Generate d Referral 12/23/2024 08/10/2025 1 1 [facility] for visit Narrative* Diagnostic Procedure Only (Routine) - Closed Specialty Diagnoses / Procedures Referred By Contkathy t Referred To Contact [facility] Diagnoses Malignant neoplasm of upper-inner quadrant of left breast in female, estrogen receptor negative (HCC) Procedures US BIOPSY AXILLA LEFT BIOPSY MUSCLE PERCUTANEOUS NEEDLE BX/EXC LYMPH NODE NEEDLE SUPERFICIAL Lasha, [place] [address] [place] [address] Phone: tel: fax: [facility] [address] [place] [address] Referral ID Status Reason Start Date Expiration Date V isits Requested Visits Authorized [id number] Closed Auto-Generate d Referral 01/06/2025 02/05/2026 1 1 [facility] Summary Purpose Family History Relationship Condition Age at Onset Recorded Date/T devan uncle Alcoholism Unknown aunt Alcoholism Unknown Malignant neoplasm of breast Unknown Malignant neoplasm Unknown mother Disorder of liver Unknown brother High blood cholesterol Unknown No Family History Records Found Advance Directives No Advanced Directives Records Found Advance Directive Response Recorded Date/ Time Do you have a Healthcare Power of Kitchen Supervisor? No February 27, 2025 10:34am Advance Directive Response Recorded Date/ Time Do you have a Healthcare Power of Kitchen Supervisor? No February 27, 2025 10:34am Do you have a Healthcare Power of Kitchen Supervisor? Yes March 09, 2025 11:40am Chief Complaint and Reason for Visit Chief Complaint Admit Date OTHER PAIN February 27, 2025 10:1 6am Chief Complaint Admit Date OTHER PAIN February 27, 2025 10:1 6am Hysteroscopy,D&C, polypectomy, Symphion March 18, 2025 10:12am Reason for Visit Admit Date Endometrial polyp March 18, 2025 10: 12am Additional Source Comments Care Team (unrecognized sect ion and content) Care Team Personnel Name: BABITA MORATAYA ELECTRICIAN RESEARCH-PEANUT SHAKER Position: P4 Advanced Laborer Wood Preserving Plant Member Role: Primary Care Physician Address: Address: [facility] Shlomo Mello [facility] [place], [place] [address] Care Team Related Persons Name: ARTEM ROBLES Address: [address] [place] [id number] Patient Care team informatio n (unrecognized section and content) Rib Builder Relationship Specialty Start Date End Date Babita Morataya APRN.PEANUT SHAKER [address] [place] [address] PCP - General Family Medicine 12/01/24 Rib Builder Relationship Specialty Start Date End Date Babita Morataya APRN.PEANUT SHAKER [address] [place] [address] PCP - General Family Medicine 12/01/24 Rib Builder Relationship Specialty Start Date End Date Babita Morataya APRN.PEANUT SHAKER [address] [place] [address] PCP - General Family Medicine 12/01/24 Sara Avalos MD [address] [place] [address] Physician Radiation Oncology 12/09/24 Rib Builder Relationship Specialty Start Date End Date Babita Morataya APRN.PEANUT SHAKER [address] [place] [address] PCP - General Family Medicine 12/01/24 Sara Avalos MD [address] [place], [place] [id number] Physician Radiation Oncology 12/09/24 Rib Builder Relationship Specialty Start Date End Date Babita Morataya APRN.PEANUT SHAKER [address] [place] [address] PCP - General Family Medicine 12/01/24 Sara Avalos MD [address] [place], [place] [address] Physician Radiation Oncology 12/09/24 Rib Builder Relationship Specialty Start Date End Date Babita Morataya APRN.PEANUT SHAKER [address] [place] [address] PCP - General Family Medicine 12/01/24 Sara Avalos MD [address] [place] [place] [address] Physician Radiation Oncology 12/09/24 Rib Builder Relationship Specialty Start Date End Date Babita Morataya, ELECTRICIAN RESEARCH.PEANUT SHAKER [address] [place] [address] PCP - General Family Medicine 12/01/24 Sara Avalos MD [address] [place] [address] Physician Radiation Oncology 12/09/24 Rib Builder Relationship Specialty Start Date End Date Babita Morataya APRN.PEANUT SHAKER [address] [place] [address] PCP - General Family Medicine 12/01/24 Sara Avalos MD [address] [place] [address] Physician Radiation Oncology 12/09/24 Rib Builder Relationship Specialty Start Date End Date Babita Morataya, ELECTRICIAN RESEARCH.PEANUT SHAKER [address] [place] [address] PCP - General Family Medicine 12/01/24 Sara Avalos MD [address] [place] [address] Physician Radiation Oncology 12/09/24 Rib Builder Relationship Specialty Start Date End Date Babita Morataya, ELECTRICIAN RESEARCH.PEANUT SHAKER [address] [place] [address] PCP - General Family Medicine 12/01/24 Sara Avalos MD [address] [place] [address] Physician Radiation Oncology 12/09/24 Elisabet Hirsch DO [address] [place] [id number] General Surgery 01/04/25 Rib Builder Relationship Specialty Start Date End Date Babita Morataya, ELECTRICIAN RESEARCH.PEANUT SHAKER [address] [place] [address] PCP - General Family Medicine 12/01/24 Sara Avalos MD [address] [place] [address] Physician Radiation Oncology 12/09/24 Elisabet Hirsch DO [address], [place] [id number] General Surgery 01/04/25 Rib Builder Relationship Specialty Start Date End Date Babita Morataya APRN.PEANUT SHAKER [address] [place] [address] PCP - General Family Medicine 12/01/24 Sara Avalos MD [address] [place], [place] [address] [phone] Physician Radiation Oncology 12/09/24 Elisabet Hirsch DO [address] [place] [address] General Surgery 01/04/25 Rib Builder Relationship Specialty Start Date End Date Babita Morataya APRN.PEANUT SHAKER [address] [place] [address] PCP - General Family Medicine 12/01/24 Sara Avalos MD [address] [place] [address] Physician Radiation Oncology 12/09/24 Elisabet Hirsch DO [address] [place] [address] General Surgery 01/04/25 Rib Builder Relationship Specialty Start Date End Date Babita Morataya, ELECTRICIAN RESEARCH.PEANUT SHAKER [address] [place] [address] PCP - General Family Medicine 12/01/24 Sara Avalos MD [address] [place] [address] Physician Radiation Oncology 12/09/24 Elisabet Hirsch DO [address] [place] [address] General Surgery 01/04/25 Rib Builder Relationship Specialty Start Date End Date Babita Morataya APRN.PEANUT SHAKER [address] [place] [address] PCP - General Family Medicine 12/01/24 Sara Avalos MD [address] [place] [address] Physician Radiation Oncology 12/09/24 Elisabet Hirsch DO [address] [place] [address] General Surgery 01/04/25 Rib Builder Relationship Specialty Start Date End Date Babita Morataya APRN.PEANUT SHAKER [address] [place] [address] PCP - General Family Medicine 12/01/24 Sara Avalos MD [address] [place] [address] Physician Radiation Oncology 12/09/24 Elisabet Hirsch DO [address] [place] [address] General Surgery 01/04/25 Rib Builder Relationship Specialty Start Date End Date Babita Morataya, ELECTRICIAN RESEARCH.PEANUT SHAKER [address] [place] [address] PCP - General Family Medicine 12/01/24 Sara Avalos MD [address] [place] [place] [address] Physician Radiation Oncology 12/09/24 Elisabet Hirsch DO [address] [place] [address] General Surgery 01/04/25 Rib Builder Relationship Specialty Start Date End Date Babita Morataya, ELECTRICIAN RESEARCH.PEANUT SHAKER [address] [place] [address] PCP - General Family Medicine 12/01/24 Sara Avalos MD [address] [place], [place] [address] [phone] Physician Radiation Oncology 12/09/24 Elisabet Hirsch DO [address] [place] [address] General Surgery 01/04/25 Rib Builder Relationship Specialty Start Date End Date Babita Morataya, ELECTRICIAN RESEARCH.PEANUT SHAKER [address] [place] [address] PCP - General Family Medicine 12/01/24 Sara Avalos MD [address] [place] [address] Physician Radiation Oncology 12/09/24 Elisabet Hirshc DO [address] [place] [address] General Surgery 01/04/25 Rib Builder Relationship Specialty Start Date End Date Babita Morataya APRN.PEANUT SHAKER [address] [place] [address] PCP - General Family Medicine 12/01/24 Sara Avalos MD [address] [place] [address] Physician Radiation Oncology 12/09/24 Elisabet Hirsch DO [address] [place] [address] General Surgery 01/04/25 Rib Builder Relationship Specialty Start Date End Date Babita Morataya APRN.PEANUT SHAKER [address] [place] [address] PCP - General Family Medicine 12/01/24 Sara Avalos MD [address] [place] [address] Physician Radiation Oncology 12/09/24 Elisabet Hirsch DO [address] [place] [address] General Surgery 01/04/25 Rib Builder Relationship Specialty Start Date End Date Babita Morataya APRN.PEANUT SHAKER [address] [place] [address] PCP - General Family Medicine 12/01/24 Sara Avalos MD [address] [place] [address] Physician Radiation Oncology 12/09/24 Elisabet Hirsch DO [address] [place] [address] General Surgery 01/04/25 Orville Martinez DO [address] [facility] [place] [address] Hematology/Oncology 01/14/25 Jennifer Burk RN Specialty 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 Oncology 01/14/25 Rib Builder Relationship Specialty Start Date End Date Babita Morataya APRN.PEANUT SHAKER [address] [place] [address] PCP - General Family Medicine 12/01/24 Sara Avalos MD [address] [place] [address] Physician Radiation Oncology 12/09/24 Elisabet Hirsch DO [address] [place] [address] General Surgery 01/04/25 Orville Martinez DO [address] [place] [address] Hematology/Oncology 01/14/25 Jennifer Burk RN Specialty 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 Oncology 01/14/25 Rib Builder Relationship Specialty Start Date End Date Babita Morataya APRN.PEANUT SHAKER [address] [place] [address] PCP - General Family Medicine 12/01/24 Sara Avalos MD [address] [facility] [place] [address] Physician Radiation Oncology 12/09/24 Elisabet Hirsch DO [address] [place] [address] General Surgery 01/04/25 Orville Martinez DO [address] [place] [address] Hematology/Oncology 01/14/25 Jennifer Burk RN Specialty 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 Oncology 01/14/25 Rib Builder Relationship Specialty Start Date End Date Babita Morataya, ELECTRICIAN RESEARCH.PEANUT SHAKER [address] [place] [address] PCP - General Family Medicine 12/01/24 Sara Avalos MD [address] [facility] [place] [address] Physician Radiation Oncology 12/09/24 Elisabet Hirsch DO [address] [place] [address] General Surgery 01/04/25 Orville Martinez DO [address] [place] [address] Hematology/Oncology 01/14/25 Jennifer Burk RN Specialty 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 Oncology 01/14/25 Rib Builder Relationship Specialty Start Date End Date Babita Morataya, ELECTRICIAN RESEARCH.PEANUT SHAKER [address] [place] [address] PCP - General Family Medicine 12/01/24 Sara Avalos MD [address] [place] [address] Physician Radiation Oncology 12/09/24 Elisabet Hirsch DO [address] [place] [address] General Surgery 01/04/25 Orville Martinez DO [address] [place] [address] Hematology/Oncology 01/14/25 Jennifer Burk RN Specialty 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 Oncology 01/14/25 Rib Builder Relationship Specialty Start Date End Date Babita Morataya, ELECTRICIAN RESEARCH.PEANUT SHAKER [address] [place] [address] PCP - General Family Medicine 12/01/24 Sara Avalos MD [address] [place] [address] Physician Radiation Oncology 12/09/24 Elisabet Hirsch DO [address] [place] [address] General Surgery 01/04/25 Orville Martinez DO [address] [place] [address] Hematology/Oncology 01/14/25 Jennifer Burk RN Specialty 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 Oncology 01/14/25 Rib Builder Relationship Specialty Start Date End Date Babita Morataya, ELECTRICIAN RESEARCH.PEANUT SHAKER [address] [place] [address] PCP - General Family Medicine 12/01/24 Sara Avalos MD [address] [place] [address] Physician Radiation Oncology 12/09/24 Elisabet Hirsch DO [address] [place] [address] General Surgery 01/04/25 Orville Martinez DO [address] [place] [address] Hematology/Oncology 01/14/25 Jennifer Burk RN Specialty 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 Oncology 01/14/25 Rib Builder Relationship Specialty Start Date End Date Babita Morataya, KOFFI.PEANUT SHAKER [address] [place] [address] PCP - General Family Medicine 12/01/24 Sara Avalos MD [address] [place] [address] Physician Radiation Oncology 12/09/24 Elisabet Hirsch DO [address] [place] [address] General Surgery 01/04/25 Orville Martinez DO [address] [place] [address] Hematology/Oncology 01/14/25 Jennifer Burk RN Specialty 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 Oncology 01/14/25 Rib Builder Relationship Specialty Start Date End Date Babita Morataya, KOFFI.PEANUT SHAKER [address] [place] [address] PCP - General Family Medicine 12/01/24 Sara Avalos MD [address] [place], [place] [address] [phone] Physician Radiation Oncology 12/09/24 Elisabet Hirsch DO [address] [place] [address] General Surgery 01/04/25 Orville Martinez DO [address] [place] [address] Hematology/Oncology 01/14/25 Jennifer Burk RN Specialty 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 Oncology 01/14/25 Rib Builder Relationship Specialty Start Date End Date Babita Morataya, ELECTRICIAN RESEARCH.PEANUT SHAKER [address] [place] [address] PCP - General Family Medicine 12/01/24 Sara Avalos MD [address] [place] [address] Physician Radiation Oncology 12/09/24 Elisabet Hirsch DO [address] [place] [address] General Surgery 01/04/25 Orville Martinez DO [address] [place] [address] Hematology/Oncology 01/14/25 Jennifer Burk RN Specialty 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 Oncology 01/14/25 Rib Builder Relationship Specialty Start Date End Date Babita Morataya, ELECTRICIAN RESEARCH.PEANUT SHAKER [address] [place] [address] PCP - General Family Medicine 12/01/24 Sara Avalos MD [address] [place] [address] Physician Radiation Oncology 12/09/24 Elisabet Hirsch DO [address] [place] [address] General Surgery 01/04/25 Orville Martinez DO [address] [place] [address] Hematology/Oncology 01/14/25 Jennifer Burk RN Specialty 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 Oncology 01/14/25 Deborah Villavicencio LISW [address] [place] [place] [address] Field Service Analyst Hematology/Oncology 02/04/25 Rib Builder Relationship Specialty Start Date End Date Babita Morataya APRN.PEANUT SHAKER [address] [place] [address] PCP - General Family Medicine 12/01/24 Sara Avalos MD [address] [place] [address] Physician Radiation Oncology 12/09/24 Elisabet Hirsch DO [address] [place] [address] General Surgery 01/04/25 Orville Martinez DO [address] [place] [address] Hematology/Oncology 01/14/25 Jennifer Burk RN Specialty 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 Oncology 01/14/25 Deborah Villavicencio LISW [address] [place] [address] Field Service Analyst Hematology/Oncology 02/04/25 Rib Builder Relationship Specialty Start Date End Date Babita Morataya APRN.PEANUT SHAKER [address] [place] [address] PCP - General Family Medicine 12/01/24 Sara Avalos MD [address] [place] [address] Physician Radiation Oncology 12/09/24 Elisabet Hirsch DO [address] [place] [address] General Surgery 01/04/25 Orville Martinez DO [address] [place] [address] Hematology/Oncology 01/14/25 Jennifer Burk, EVERT Specialty 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 Oncology 01/14/25 Deborah Villavicencio LISW [address] [place] [address] Field Service Analyst Hematology/Oncology 02/04/25 Rib Builder Relationship Specialty Start Date End Date Babita Morataya, KOFFI.PEANUT SHAKER [address] [place] [address] PCP - General Family Medicine 12/01/24 Sara Avalos MD [address] [place] [address] Physician Radiation Oncology 12/09/24 Elisabet Hirsch DO [address] [place] [address] General Surgery 01/04/25 Orville Martinez DO [address] [place] [address] Hematology/Oncology 01/14/25 Jennifer Burk RN Specialty 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 Oncology 01/14/25 Deborah Villavicencio, AVA [address] [place] [address] Field Service Analyst Hematology/Oncology 02/04/25 Rib Builder Relationship Specialty Start Date End Date Babita Morataya, ELECTRICIAN RESEARCH.PEANUT SHAKER [address] [place] [address] PCP - General Family Medicine 12/01/24 Sara Avalos MD [address] [place] [address] Physician Radiation Oncology 12/09/24 Elisabet Hirsch DO [address] [place] [address] General Surgery 01/04/25 Orville Martinez DO [address] [place] [address] Hematology/Oncology 01/14/25 Jennifer Burk RN Specialty 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 Oncology 01/14/25 Deborah Villavicencio, POSTBED STITCHER [address] [place] [address] Field Service Analyst Hematology/Oncology 02/04/25 Rib Builder Relationship Specialty Start Date End Date Babita Morataya, ELECTRICIAN RESEARCH.PEANUT SHAKER [address] [place] [address] PCP - General Family Medicine 12/01/24 Sara Avalos MD [address] [place] [address] Physician Radiation Oncology 12/09/24 Elisabet Hirsch DO [address] [place] [address] General Surgery 01/04/25 Orville Martinez DO [address] [place] [address] Hematology/Oncology 01/14/25 Jennifer Burk RN Specialty 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 Oncology 01/14/25 Deborah Villavicencio LISW [address] [place] [address] Field Service Analyst Hematology/Oncology 02/04/25 Rib Builder Relationship Specialty Start Date End Date Babita Morataya, ELECTRICIAN RESEARCH.PEANUT SHAKER [address] [place] [address] PCP - General Family Medicine 12/01/24 Sara Avalos MD [address] [place] [address] Physician Radiation Oncology 12/09/24 Elisabet Hirsch DO [address] [place] [address] General Surgery 01/04/25 Orville Martinez DO [address] [place] [address] Hematology/Oncology 01/14/25 Jennifer Burk, RN Specialty 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 Oncology 01/14/25 Deborah Villavicencio LISW [address] [place] [address] Field Service Analyst Hematology/Oncology 02/04/25 Rib Builder Relationship Specialty Start Date End Date Babita Morataya, ELECTRICIAN RESEARCH.PEANUT SHAKER [address] [place] [address] PCP - General Family Medicine 12/01/24 Sara Avalos MD [address] [place] [address] Physician Radiation Oncology 12/09/24 Elisabet Hirsch DO [address] [place] [address] General Surgery 01/04/25 Orville Martinez DO [address] [place] [address] Hematology/Oncology 01/14/25 Jennifer Burk RN Specialty 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 Oncology 01/14/25 Deborah Villavicencio LISW [address] [place] [address] Field Service Analyst Hematology/Oncology 02/04/25 Rib Builder Relationship Specialty Start Date End Date Babita Morataya APRN.PEANUT SHAKER [address] [place] [address] PCP - General Family Medicine 12/01/24 Sara Avalos MD [address] [place] [address] Physician Radiation Oncology 12/09/24 Elisabet Hirsch DO [address] [place] [address] General Surgery 01/04/25 Orville Martinez DO [address] [place] [address] Hematology/Oncology 01/14/25 Jennifer Burk RN Specialty 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 Oncology 01/14/25 Deborah Villavicencio LISW [address] [place] [address] Field Service Analyst Hematology/Oncology 02/04/25 Rib Builder Relationship Specialty Start Date End Date Babita Morataya APRN.PEANUT SHAKER [address] [place] [address] PCP - General Family Medicine 12/01/24 Sara Avalos MD [address] [place], [place] [address] Physician Radiation Oncology 12/09/24 Elisabet Hirsch DO [address] [place] [address] General Surgery 01/04/25 Orville Martinez DO [address] [facility] [place] [address] Hematology/Oncology 01/14/25 Jennifer Burk RN Specialty 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 Oncology 01/14/25 Deborah Villavicencio LISW [address] [place] [address] Field Service Analyst Hematology/Oncology 02/04/25 Team Status: Active Member Role/Relationship Status Dates Babita Morataya ENERGY AND SUSTAINABILITY MANAGER, ENERGY AND SUSTAINABILITY MANAGER-C Primary Care Provider Active Team Status: Inactive Member Role/Relationship Status Dates Babita Morataya ENERGY AND SUSTAINABILITY MANAGER, ENERGY AND SUSTAINABILITY MANAGER-C Primary Care Provider Active Start: February 27, 2025 End: February 27, 2025 Dr. Cuba Castro MD Emergency Provider Active Sta rt: February 27, 2025 End: February 27, 2025 Rib Builder Relationship Specialty Start Date End Date Babita Morataya APRN.PEANUT SHAKER [address] [place] [address] PCP - General Family Medicine 12/01/24 Sara Avalos MD [address] [place] [address] Physician Radiation Oncology 12/09/24 Elisabet Hirsch DO [address] [place] [address] General Surgery 01/04/25 Orville Martinez DO [address] [place] [address] Hematology/Oncology 01/14/25 Jennifer Burk RN Specialty 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 Oncology 01/14/25 Deborah Villavicencio LISW [address] [place] [address] Field Service Analyst Hematology/Oncology 02/04/25 Rib Builder Relationship Specialty Start Date End Date Babita Morataya, KOFFI.[facility] [address] [place] [address] PCP - General Family Medicine 12/01/24 Sara Avalos MD [address] [place] [address] Physician Radiation Oncology 12/09/24 Elisabet Hirsch DO [address] [place] [address] General Surgery 01/04/25 Orville Martinez DO [address] [place] [address] Hematology/Oncology 01/14/25 Jennifer Burk RN Specialty 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 Oncology 01/14/25 Deborah Villavicencio LISW [address] [place] [address] Field Service Analyst Hematology/Oncology 02/04/25 Rib Builder Relationship Specialty Start Date End Date Babita Morataya, ELECTRICIAN RESEARCH.PEANUT SHAKER [address] [place] [address] PCP - General Family Medicine 12/01/24 Sara Avalos MD [address] [place] [address] Physician Radiation Oncology 12/09/24 Elisabet Hirsch DO [address] [place] [address] General Surgery 01/04/25 Orville Martinez DO [address] [place] [address] Hematology/Oncology 01/14/25 Jennifer Burk, EVERT Specialty 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 Oncology 01/14/25 Deborah Villavicencio LISW [address] [place] [address] Field Service Analyst Hematology/Oncology 02/04/25 Rib Builder Relationship Specialty Start Date End Date Babita Morataya, ELECTRICIAN RESEARCH.PEANUT SHAKER [address] [address] PCP - General Family Medicine 12/01/24 Sara Avalos MD [address] [place] [address] Physician Radiation Oncology 12/09/24 Elisabet Hirsch DO [address] [place] [address] General Surgery 01/04/25 Orville Martinez DO [address] [place] [address] Hematology/Oncology 01/14/25 Jennifer Burk RN Specialty 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 Oncology 01/14/25 Deboarh Villavicencio LISW [address] [place] [address] Field Service Analyst Hematology/Oncology 02/04/25 Rib Builder Relationship Specialty Start Date End Date Babita Morataya APRN.CNP [address] [place] [address] PCP - General Family Medicine 12/01/24 Sara Avalos MD [address] [place], [place] [address] Physician Radiation Oncology 12/09/24 Elisabet Hirsch DO [address] [place] [address] General Surgery 01/04/25 Orville Martinez DO [address] [facility] [place] [place] [address] Hematology/Oncology 01/14/25 Jennifer Burk RN Specialty 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 Oncology 01/14/25 Deborah Villavicencio LISW [address] [place] [address] Field Service Analyst Hematology/Oncology 02/04/25 Team Status: Inactive Member Role/Relationship Status Dates Babita Morataya NP, ENERGY AND SUSTAINABILITY MANAGER-C Primary Care Provider Active Start: February 27, 2025 End: February 27, 2025 Dr. Cuba Castro MD Attending Provider Active Sta rt: February 27, 2025 End: February 27, 2025 Dr. Cuba Castro MD Emergency Provider Active Sta rt: February 27, 2025 End: February 27, 2025 Team Status: Inactive Member Role/Relationship Status Dates Babita Morataya NP, ENERGY AND SUSTAINABILITY MANAGER-C Primary Care Provider Active Start: March 18, 2025 End: March 18, 2025 Dr. Emilie Lennon DO Attending Provider Active Start: March 18, 2025 End: March 18, 2025 Dr. Emilie Lennon DO Referring Provider Active Start: March 18, 2025 End: March 18, 2025 INFORMATION SOURCE (unrecogn ized section and content) DATE CREATED AUTHOR 11/06/2023 [facility] ([place]) DATE CREATED AUTHOR AUTHOR'S ORGANIZ ATION 11/28/2024 [facility] DATE CREATED AUTHOR AUTHOR'S ORGANIZ ATION 01/10/2025 [facility] DATE CREATED AUTHOR AUTHOR'S ORGANIZ ATION 03/13/2025 [facility] DATE CREATED AUTHOR AUTHOR'S ORGANIZ ATION 03/18/2025 [facility] Source Comments (unrecognize d section and content) In the event this informatio n is protected by the Federal Confidentiality of Alcohol and Drug Abuse Patient Records regulations: The Federal rules restrict any use of the information to criminally investigate or prosecute any alcohol or drug abuse patient.[facility] HospitalIn the event this information is protected by the Federal Confidentiality of Alcohol and Drug Abuse Patient Records regulations: The Federal rules restrict any use of the information to criminally investigate or prosecute any alcohol or drug abuse patient.[facility] HospitalIn the event this information is protected by the Federal Confidentiality of Alcohol and Drug Abuse Patient Records regulations: The Federal rules restrict any use of the information to criminally investigate or prosecute any alcohol or drug abuse patient.[facility] HospitalIn the event this information is protected by the Federal Confidentiality of Alcohol and Drug Abuse Patient Records regulations: The Federal rules restrict any use of the information to criminally investigate or prosecute any alcohol or drug abuse patient.[facility] HospitalIn the event this information is protected by the Federal Confidentiality of Alcohol and Drug Abuse Patient Records regulations: The Federal rules restrict any use of the information to criminally investigate or prosecute any alcohol or drug abuse patient.[facility] HospitalIn the event this information is protected by the Federal Confidentiality of Alcohol and Drug Abuse Patient Records regulations: The Federal rules restrict any use of the information to criminally investigate or prosecute any alcohol or drug abuse patient.[facility] HospitalIn the event this information is protected by the Federal Confidentiality of Alcohol and Drug Abuse Patient Records regulations: The Federal rules restrict any use of the information to criminally investigate or prosecute any alcohol or drug abuse patient.[facility] HospitalIn the event this information is protected by the Federal Confidentiality of Alcohol and Drug Abuse Patient Records regulations: The Federal rules restrict any use of the information to criminally investigate or prosecute any alcohol or drug abuse patient.[facility] HospitalIn the event this information is protected by the Federal Confidentiality of Alcohol and Drug Abuse Patient Records regulations: The Federal rules restrict any use of the information to criminally investigate or prosecute any alcohol or drug abuse patient.[facility] HospitalIn the event this information is protected by the Federal Confidentiality of Alcohol and Drug Abuse Patient Records regulations: The Federal rules restrict any use of the information to criminally investigate or prosecute any alcohol or drug abuse patient.[facility] HospitalIn the event this information is protected by the Federal Confidentiality of Alcohol and Drug Abuse Patient Records regulations: The Federal rules restrict any use of the information to criminally investigate or prosecute any alcohol or drug abuse patient.[facility] HospitalIn the event this information is protected by the Federal Confidentiality of Alcohol and Drug Abuse Patient Records regulations: The Federal rules restrict any use of the information to criminally investigate or prosecute any alcohol or drug abuse patient.[facility] HospitalIn the event this information is protected by the Federal Confidentiality of Alcohol and Drug Abuse Patient Records regulations: The Federal rules restrict any use of the information to criminally investigate or prosecute any alcohol or drug abuse patient.[facility] HospitalIn the event this information is protected by the Federal Confidentiality of Alcohol and Drug Abuse Patient Records regulations: The Federal rules restrict any use of the information to criminally investigate or prosecute any alcohol or drug abuse patient.[facility] HospitalIn the event this information is protected by the Federal Confidentiality of Alcohol and Drug Abuse Patient Records regulations: The Federal rules restrict any use of the information to criminally investigate or prosecute any alcohol or drug abuse patient.[facility] HospitalIn the event this information is protected by the Federal Confidentiality of Alcohol and Drug Abuse Patient Records regulations: The Federal rules restrict any use of the information to criminally investigate or prosecute any alcohol or drug abuse patient.[facility] HospitalIn the event this information is protected by the Federal Confidentiality of Alcohol and Drug Abuse Patient Records regulations: The Federal rules restrict any use of the information to criminally investigate or prosecute any alcohol or drug abuse patient.[facility] HospitalIn the event this information is protected by the Federal Confidentiality of Alcohol and Drug Abuse Patient Records regulations: The Federal rules restrict any use of the information to criminally investigate or prosecute any alcohol or drug abuse patient.[facility] HospitalIn the event this information is protected by the Federal Confidentiality of Alcohol and Drug Abuse Patient Records regulations: The Federal rules restrict any use of the information to criminally investigate or prosecute any alcohol or drug abuse patient.[facility] HospitalIn the event this information is protected by the Federal Confidentiality of Alcohol and Drug Abuse Patient Records regulations: The Federal rules restrict any use of the information to criminally investigate or prosecute any alcohol or drug abuse patient.[facility] HospitalIn the event this information is protected by the Federal Confidentiality of Alcohol and Drug Abuse Patient Records regulations: The Federal rules restrict any use of the information to criminally investigate or prosecute any alcohol or drug abuse patient.[facility] HospitalIn the event this information is protected by the Federal Confidentiality of Alcohol and Drug Abuse Patient Records regulations: The Federal rules restrict any use of the information to criminally investigate or prosecute any alcohol or drug abuse patient.[facility] HospitalIn the event this information is protected by the Federal Confidentiality of Alcohol and Drug Abuse Patient Records regulations: The Federal rules restrict any use of the information to criminally investigate or prosecute any alcohol or drug abuse patient.[facility] HospitalIn the event this information is protected by the Federal Confidentiality of Alcohol and Drug Abuse Patient Records regulations: The Federal rules restrict any use of the information to criminally investigate or prosecute any alcohol or drug abuse patient.[facility] HospitalIn the event this information is protected by the Federal Confidentiality of Alcohol and Drug Abuse Patient Records regulations: The Federal rules restrict any use of the information to criminally investigate or prosecute any alcohol or drug abuse patient.[facility] HospitalIn the event this information is protected by the Federal Confidentiality of Alcohol and Drug Abuse Patient Records regulations: The Federal rules restrict any use of the information to criminally investigate or prosecute any alcohol or drug abuse patient.[facility] HospitalIn the event this information is protected by the Federal Confidentiality of Alcohol and Drug Abuse Patient Records regulations: The Federal rules restrict any use of the information to criminally investigate or prosecute any alcohol or drug abuse patient.[facility] HospitalIn the event this information is protected by the Federal Confidentiality of Alcohol and Drug Abuse Patient Records regulations: The Federal rules restrict any use of the information to criminally investigate or prosecute any alcohol or drug abuse patient.[facility] HospitalIn the event this information is protected by the Federal Confidentiality of Alcohol and Drug Abuse Patient Records regulations: The Federal rules restrict any use of the information to criminally investigate or prosecute any alcohol or drug abuse patient.[facility] HospitalIn the event this information is protected by the Federal Confidentiality of Alcohol and Drug Abuse Patient Records regulations: The Federal rules restrict any use of the information to criminally investigate or prosecute any alcohol or drug abuse patient.[facility] HospitalIn the event this information is protected by the Federal Confidentiality of Alcohol and Drug Abuse Patient Records regulations: The Federal rules restrict any use of the information to criminally investigate or prosecute any alcohol or drug abuse patient.[facility] HospitalIn the event this information is protected by the Federal Confidentiality of Alcohol and Drug Abuse Patient Records regulations: The Federal rules restrict any use of the information to criminally investigate or prosecute any alcohol or drug abuse patient.[facility] HospitalIn the event this information is protected by the Federal Confidentiality of Alcohol and Drug Abuse Patient Records regulations: The Federal rules restrict any use of the information to criminally investigate or prosecute any alcohol or drug abuse patient.[facility] HospitalIn the event this information is protected by the Federal Confidentiality of Alcohol and Drug Abuse Patient Records regulations: The Federal rules restrict any use of the information to criminally investigate or prosecute any alcohol or drug abuse patient.[facility] HospitalIn the event this information is protected by the Federal Confidentiality of Alcohol and Drug Abuse Patient Records regulations: The Federal rules restrict any use of the information to criminally investigate or prosecute any alcohol or drug abuse patient.[facility] HospitalIn the event this information is protected by the Federal Confidentiality of Alcohol and Drug Abuse Patient Records regulations: The Federal rules restrict any use of the information to criminally investigate or prosecute any alcohol or drug abuse patient.[facility] HospitalIn the event this information is protected by the Federal Confidentiality of Alcohol and Drug Abuse Patient Records regulations: The Federal rules restrict any use of the information to criminally investigate or prosecute any alcohol or drug abuse patient.[facility] HospitalIn the event this information is protected by the Federal Confidentiality of Alcohol and Drug Abuse Patient Records regulations: The Federal rules restrict any use of the information to criminally investigate or prosecute any alcohol or drug abuse patient.[facility] HospitalIn the event this information is protected by the Federal Confidentiality of Alcohol and Drug Abuse Patient Records regulations: The Federal rules restrict any use of the information to criminally investigate or prosecute any alcohol or drug abuse patient.[facility] HospitalIn the event this information is protected by the Federal Confidentiality of Alcohol and Drug Abuse Patient Records regulations: The Federal rules restrict any use of the information to criminally investigate or prosecute any alcohol or drug abuse patient.[facility] HospitalIn the event this information is protected by the Federal Confidentiality of Alcohol and Drug Abuse Patient Records regulations: The Federal rules restrict any use of the information to criminally investigate or prosecute any alcohol or drug abuse patient.[facility] HospitalIn the event this information is protected by the Federal Confidentiality of Alcohol and Drug Abuse Patient Records regulations: The Federal rules restrict any use of the information to criminally investigate or prosecute any alcohol or drug abuse patient.[facility] HospitalIn the event this information is protected by the Federal Confidentiality of Alcohol and Drug Abuse Patient Records regulations: The Federal rules restrict any use of the information to criminally investigate or prosecute any alcohol or drug abuse patient.[facility] HospitalIn the event this information is protected by the Federal Confidentiality of Alcohol and Drug Abuse Patient Records regulations: The Federal rules restrict any use of the information to criminally investigate or prosecute any alcohol or drug abuse patient.[facility] HospitalIn the event this information is protected by the Federal Confidentiality of Alcohol and Drug Abuse Patient Records regulations: The Federal rules restrict any use of the information to criminally investigate or prosecute any alcohol or drug abuse patient.[facility] HospitalIn the event this information is protected by the Federal Confidentiality of Alcohol and Drug Abuse Patient Records regulations: The Federal rules restrict any use of the information to criminally investigate or prosecute any alcohol or drug abuse patient.[facility] HospitalIn the event this information is protected by the Federal Confidentiality of Alcohol and Drug Abuse Patient Records regulations: The Federal rules restrict any use of the information to criminally investigate or prosecute any alcohol or drug abuse patient.[facility] HospitalIn the event this information is protected by the Federal Confidentiality of Alcohol and Drug Abuse Patient Records regulations: The Federal rules restrict any use of the information to criminally investigate or prosecute any alcohol or drug abuse patient.[facility] HospitalIn the event this information is protected by the Federal Confidentiality of Alcohol and Drug Abuse Patient Records regulations: The Federal rules restrict any use of the information to criminally investigate or prosecute any alcohol or drug abuse patient.[facility] HospitalIn the event this information is protected by the Federal Confidentiality of Alcohol and Drug Abuse Patient Records regulations: The Federal rules restrict any use of the information to criminally investigate or prosecute any alcohol or drug abuse patient.[facility] HospitalIn the event this information is protected by the Federal Confidentiality of Alcohol and Drug Abuse Patient Records regulations: The Federal rules restrict any use of the information to criminally investigate or prosecute any alcohol or drug abuse patient.[facility] HospitalIn the event this information is protected by the Federal Confidentiality of Alcohol and Drug Abuse Patient Records regulations: The Federal rules restrict any use of the information to criminally investigate or prosecute any alcohol or drug abuse patient.[facility] HospitalIn the event this information is protected by the Federal Confidentiality of Alcohol and Drug Abuse Patient Records regulations: The Federal rules restrict any use of the information to criminally investigate or prosecute any alcohol or drug abuse patient.[facility] HospitalIn the event this information is protected by the Federal Confidentiality of Alcohol and Drug Abuse Patient Records regulations: The Federal rules restrict any use of the information to criminally investigate or prosecute any alcohol or drug abuse patient.[facility] HospitalIn the event this information is protected by the Federal Confidentiality of Alcohol and Drug Abuse Patient Records regulations: The Federal rules restrict any use of the information to criminally investigate or prosecute any alcohol or drug abuse patient.[facility] HospitalIn the event this information is protected by the Federal Confidentiality of Alcohol and Drug Abuse Patient Records regulations: The Federal rules restrict any use of the information to criminally investigate or prosecute any alcohol or drug abuse patient.[facility] HospitalIn the event this information is protected by the Federal Confidentiality of Alcohol and Drug Abuse Patient Records regulations: The Federal rules restrict any use of the information to criminally investigate or prosecute any alcohol or drug abuse patient.[facility] HospitalIn the event this information is protected by the Federal Confidentiality of Alcohol and Drug Abuse Patient Records regulations: The Federal rules restrict any use of the information to criminally investigate or prosecute any alcohol or drug abuse patient.[facility] HospitalIn the event this information is protected by the Federal Confidentiality of Alcohol and Drug Abuse Patient Records regulations: The Federal rules restrict any use of the information to criminally investigate or prosecute any alcohol or drug abuse patient.[facility] HospitalIn the event this information is protected by the Federal Confidentiality of Alcohol and Drug Abuse Patient Records regulations: The Federal rules restrict any use of the information to criminally investigate or prosecute any alcohol or drug abuse patient.[facility] HospitalIn the event this information is protected by the Federal Confidentiality of Alcohol and Drug Abuse Patient Records regulations: The Federal rules restrict any use of the information to criminally investigate or prosecute any alcohol or drug abuse patient.[facility] HospitalIn the event this information is protected by the Federal Confidentiality of Alcohol and Drug Abuse Patient Records regulations: The Federal rules restrict any use of the information to criminally investigate or prosecute any alcohol or drug abuse patient.[facility] Reason for Visit (unrecogniz ed section and content) Reason Comments New Patient Specialty Diagnoses / Procedures Referred By Contac t Referred To Contact Oncology Diagnoses Breast cancer, stage 2, left (HCC) Malignant neoplasm of upper-inner quadrant of left breast in female, estrogen receptor negative (HCC) Procedures CONSULT TO ONCOLOGY OFFICE/OUTPATIENT [facility] 60 MINUTES Elisabet Hirsch, DO [address] [place] [address] Phone: tel: fax: Orville Martinez, DO [address] [place] [address] Phone: tel: fax: Referral ID Status Reason Start Date Expiration Date V isits Requested Visits Authorized [id number] Closed PCP Requested Referral 12/08/2024 12/08/2025 1 1 Reason Comments Post-Op Visit 1wk breast biopsy re sults SKIP 12/01 12/01 [facility] LEFT Reason Comments Consult Left breast Reason Comments Radiology CT Specialty Diagnoses / Procedures Referred By Contac t Referred To Contact CT IMAGING Diagnoses Malignant neoplasm of upper-inner quadrant of left breast in female, estrogen receptor negative (HCC) Procedures CT ABD/PEL W IVCON CT ABD & PELVIS W/CONTRAST Elisabet Hirsch, DO [address] [place] [address] Phone: tel: fax: [place] [address] Referral ID Status Reason Start Date Expiration Date V isits Requested Visits Authorized [id number] Closed Auto-Generate d Referral 12/08/2024 01/07/2026 1 1 Reason Comments Consult 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 Comments 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 Care Coordination Introduction Reason Comments Follow Up Reason Comments 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 - Other Chemo Education appointment Reason Comments Appointment Reason Comments Patient Update Reason Comments MRI Scheduling Appointment Reason Comments New Patient Left breast cancer Reason Comments 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 - 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 Antiemetic Reason Comments cooling cap Reason Comments Radiology US Specialty Diagnoses / Procedures Referred By Contac t Referred To Contact [facility] Diagnoses Increased endometrial stripe thickness Procedures US FEMALE PELVIS TRANSVAG US TRANSVAGINAL Orville Martinez, DO [address] [facility] [place] [address] Phone: tel: fax: [place] [id number] Referral ID Status Reason Start Date Expiration Date V isits Requested Visits Authorized [id number] Closed Auto-Generate d Referral 01/04/2025 02/03/2026 1 1 Reason Comments First Time Treatment Education Keynote 5 22 Reason Comments Results Reason Comments Chemotherapy Treatment Specialty Diagnoses / Procedures Referred By Contac t Referred To Contact Diagnoses Malignant neoplasm of upper-inner quadrant of left breast in female, estrogen receptor negative (HCC) Orville Martinez, DO [address] [place] [address] Phone: tel: fax: Orville Martinez, DO [address] [place] [address] Phone: tel: fax: Referral ID Status Reason Start Date Expiration Date V isits Requested Visits Authorized [id number] Authorized 01/19/2025 04/19/2025 1 1 Reason Comments Care Coordination Pain at port site Reason Onset Date Comments Refill Request 01/25/2025 Reason Comments 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 - Other C1D1 Post Treat ment Call (Carbo/taxol/keytruda) Reason Comments Patient Question Reason Comments Reason Comments Blood Draw (CVAD) Reason Comments Established Patient Reason Comments Consult For surgery Specialty Diagnoses / Procedures Referred By Gregory t Referred To Contact Gynecology Diagnoses Endometrial polyp Procedures CONSULT TO GYNECOLOGY OFFICE/OUTPATIENT [facility] 60 MINUTES Orville Martinez, DO [address] [place] [address] Phone: tel: fax: Referral ID Status Reason Start Date Expiration Date V isits Requested Visits Authorized [id number] Closed PCP Requested Referral Auto-Generated Referral 01/17/2025 01/17/2026 1 1 Reason Comments Pre-Op Visit Reason Comments 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 [employer] provides no warranty or guarantee of the accuracy or completeness of information in this document.
--- NOTE | 2025-03-18 22:32 | EX.ED.DYSGE1 ---
HPI History of Present Illness Chief Complaint: Complaint Narrative Narrative: Patient is a 69-year-old female with past medical history of breast cancer on chemo which was approximately 2 weeks ago last dose, GERD, hypertension who presented to the emergency department chief complaint of concern for urinary tract infection. Patient states that she had a hysteroscopy done today by Dr. Lennon as she had a polyp and they took this to the [facility] and sent for pathology. She states that afterwards when she went home she noted that when she tried to urinate it was very painful for her and continued therefore she came here to ensure that she does not have a urinary tract infection. [facility] Medical History History of stress test Wears glasses Post-menopausal Cancer Open wound History of steroid therapy Gastric reflux Non-smoker Hoarseness History of echocardiogram Cardiology follow-up encounter Breast cancer Hypertension Cervical paraspinal muscle spasm GERD (gastroesophageal reflux disease) Retinal detachment High cholesterol Hx of cataract UTI (urinary tract infection) History of back problems Environmental allergies Seasonal allergies Hemorrhoids Home Medications ?Medication ?Instructions ?Recorded ?Last Taken ?Type diphenhydramine HCl 25 mg capsule 50 mg PO Q8H PRN allergy symptoms 02/27/25 Unknown History (Benadryl) fluorometholone 0.1 % eye 1 drp LEFT EYE DAILY PRN PRN 02/27/25 Unknown History drops,suspension gabapentin 100 mg capsule 200 mg PO QHS 02/27/25 Unknown History pembrolizumab 50 mg intravenous 200 mg IV 02/27/25 Unknown History solution promethazine 25 mg tablet 25 mg PO TID PRN nausea and 02/27/25 Unknown History vomiting methylprednisolone 4 mg tablets in 4 mg PO DAILY 03/09/25 Unknown History a dose pack Allergy/AdvReac Type Severity Reaction Status Date / Time adhesive tape Allergy Mild redness Verified 03/18/25 22:05 [id number] Reductase AdvReac Pain in Verified 03/18/25 22:05 Inhibitor joints Family History Uncle Alcoholism Aunt Alcoholism Breast cancer Cancer ovarian Mother Liver disease Brother High cholesterol Surgical History Hx of dilation and curettage Hx of eye surgery Social History household members: spouse housing: house Smoking Status: Never smoker alcohol intake: never substance use type: does not use what type of physical activity do you participate in: none ROS ROS ED ROS Narrative Constitutional: Denies any fevers, chills Abdomen: Denies abdominal pain nausea vomiting : States that she has having some bleeding from her procedure earlier complains of urinary symptoms as noted above Neurological: Denies any numbness, weakness, tingling Musculoskeletal: Denies back pain Skin: Denies any rashes or lesions EXAM Physical Exam Narrative Exam Narrative: General: Patient was sitting in chair at bedside rest comfortably did not appear to be in acute distress Head: Atraumatic, normocephalic Eyes: PERRL bilaterally, EOMI bilateral, no conjunctival injection noted Neck: Soft, supple, trachea midline Cardiovascular: Regular rate and rhythm Respiratory: Clear to auscultation bilaterally Abdomen: Soft, nondistended, no tenderness palpation Extremities: +5/5 strength noted in the bilateral upper and lower extremities Neurological: Patient following commands knew that she was at [facility] year is 2024 Skin: Warm, dry, intact no rashes lesions noted Const Vital Signs: 03/18/25 22:01 Temperature 98.2 F Temperature Source Oral Pulse Rate 100 Respiratory Rate 18 Blood Pressure 142/69 H Blood Pressure Mean 93 Pulse Ox 97 Oxygen Delivery Method Room Air MDM MDM MDM Narrative Medical decision making narrative: Patient is a 69-year-old female who presented to the emergency department the chief complaint of concern for urinary tract infection. On the differential diagnosis includes but not limited to UTI, urethral irritation from procedure earlier today. Once workup is obtained reviewed she will be reevaluated. Patient's urinalysis reviewed and showed no evidence of infection. Patient will be given dose of Azo here in the emergency department. She is vies to follow-up with her doctor in outpatient setting and return with worsening symptoms or any concerns. She is agreeable this plan all question concerns answered she was discharged home in stable condition. Lab Data Labs: Laboratory Results - last 24 hr 03/18/25 22:25 Urine Color Yellow Urine Clarity Clear Urine pH 7.0 Ur Specific [place] 1.010 Urine Protein 15 H Urine Glucose (UA) Normal Urine Ketones Negative Urine Occult Blood 10 H Urine Nitrite Negative Urine Bilirubin Negative Urine Urobilinogen Normal Ur Leukocyte Esterase Negative Urine RBC 0-5 SEEN Urine WBC 0-5 SEEN Ur Squamous Epith Cells 0 SEEN Urine Bacteria 0 SEEN Urine Mucus 0 SEEN Discharge Plan Triage Chief Complaint: Complaint ED Provider: Mazin Arevalo Dx/Rx/DC Orders Clinical Impression: Cystitis, Status post hysteroscopic polypectomy Prescriptions: No Action fluorometholone 0.1 % drops,suspension 1 drp LEFT EYE DAILY PRN (Reason: PRN) gabapentin 100 mg capsule 200 mg PO QHS pembrolizumab 50 mg recon soln 200 mg IV promethazine 25 mg tablet 25 mg PO TID PRN (Reason: nausea and vomiting) diphenhydramine HCl [Benadryl] 25 mg capsule 50 mg PO Q8H PRN (Reason: allergy symptoms) methylprednisolone 4 mg tablets,dose pack 4 mg PO DAILY Patient Comments: SEE DOSE PACK Primary Care Provider: Babita Morataya NP Referrals: Babita Morataya NP, [employer] MACHINE OPERATOR-C [Primary Care Provider] - Activity Restrictions/Additional Instructions: Your urine did not show any evidence of infection hand emergency department. Follow-up with your doctor in outpatient setting return with worsening symptoms or any concerns. Print Language: Italian Disposition Disposition: Home, Self Care
[2025-03-18 22:45] LABS: Mucous, Urine 0 SEEN /hpf (<or=2+); Squamous Epithelial Cells - UA 0 SEEN /hpf (5-10)
[2025-03-18 23:06] LABS: Color, Urine Yellow (Yellow); Glucose, Dipstick Normal (Normal); Ketone-Dipstick Negative (Negative); Leukocyte Esterase-Dipstick Negative /ul (Negative); Nitrite-Dipstick Negative (Negative); Occult Blood-Urine 10 /ul (Negative); Protein-Dipstick 15 mg/dl (Negative); Specific Gravity, Urine 1.010 (1.002-1.030); Urine Bilirubin Dipstick Negative (Negative)
[2025-03-18 23:20] LABS: Red Blood Cells-Urine 0-5 SEEN /hpf (0-5)
[2025-03-18 23:41] VITALS: BP 115/52; PULSE 92; RESP 18; TEMP 36.8; O2SAT 97
== END 2025-03-18 23:42 | disposition home or self-care (01) ==
PROVIDERS: Emergency Provider Emergency Medicine; PCP Nurse Practitioner Family; Visit Provider Emergency Medicine
DX: N30.90 Cystitis, unspecified without hematuria (principal)
CPT/HCPCS: 81001; 87086; 99282

== ENCOUNTER 2025-04-14 13:41 | Emergency (ER) | payer MEDICARE, OTHER, SELFPAY ==
[2025-04-14 13:42] VITALS: BP 120/63; PULSE 110; RESP 20; TEMP 36.5; O2SAT 99; BMI 28.4
[2025-04-14 14:41] VITALS: BP 130/76; PULSE 101; RESP 15; O2SAT 98
[2025-04-14 15:00] VITALS: BP 128/74; PULSE 102; RESP 22; O2SAT 97
[2025-04-14 16:00] VITALS: BP 126/78; PULSE 100; RESP 16; O2SAT 98
--- NOTE | 2025-04-14 16:01 | EDS_ITS ---
HPI History of Present Illness Chief Complaint: Allergic Reaction Narrative Narrative: Patient is a 69-year-old female presenting to the emergency department for concern of an allergic reaction. Patient has past medical history of breast cancer and is currently receiving chemotherapy. This was her 11th out of 12 chemotherapy infusions. States shortly after it started she developed abdominal discomfort, nausea and itchy skin. She was given hydrocortisone and Benadryl at the infusion center. Dr. Martinez evaluated the patient there and recommended she come to the ED for evaluation. She reports complete resolution of symptoms now. Denies chest pain, SOB, lightheadedness, rash, vomiting at this time. [facility] Medical History History of stress test Wears glasses Post-menopausal Cancer Open wound History of steroid therapy Gastric reflux Non-smoker Hoarseness History of echocardiogram Cardiology follow-up encounter Breast cancer Hypertension Cervical paraspinal muscle spasm GERD (gastroesophageal reflux disease) Retinal detachment High cholesterol Hx of cataract UTI (urinary tract infection) History of back problems Environmental allergies Seasonal allergies Hemorrhoids Home Medications ?Medication ?Instructions ?Recorded ?Last Taken ?Type diphenhydramine HCl 25 mg capsule 50 mg PO Q8H PRN all ergy symptoms 02/27/25 Unknown History (Benadryl) fluorometholone 0.1 % eye 1 drp LEFT EYE DAILY PRN PRN 02/27/25 Unknown History drops,suspension gabapentin 100 mg capsule 200 mg PO QHS 02/27/25 Unkno wn History pembrolizumab 50 mg intravenous 200 mg IV 02/27/25 Unk nown History solution promethazine 25 mg tablet 25 mg PO TID PRN nausea and 02/27/25 Unknown History vomiting methylprednisolone 4 mg tablets in 4 mg PO DAILY 03/09 Unknown History a dose pack Allergy/AdvReac Type Severity Reaction Status Date / Time adhesive tape Allergy Mild redness Verified 04/14/25 13:46 [id number] Reductase AdvReac Pain in Verified 04/14/25 13:46 Inhibitor joints Family History Uncle Alcoholism Aunt Alcoholism Breast cancer Cancer ovarian Mother Liver disease Brother High cholesterol Surgical History Hx of dilation and curettage Hx of eye surgery Social History household members: spouse housing: house Smoking Status: Never smoker alcohol intake: never substance use type: does not use what type of physical activity do you participate in: none ROS ROS ED ROS Narrative See HPI EXAM Physical Exam Narrative Exam Narrative: Vital signs: Reviewed General: Alert and oriented. No acute distress HEENT: Head is normocephalic and atraumatic, sinuses nontender, pupils equal round and reactive. Nares are patent. Oropharynx and throat exams normal. Neck: Supple without lymphadenopathy nontender Cardiovascular: Regular rate and rhythm, no murmurs. No rubs or gallops. Normal S1 and S2 Chest: Port accessed in right upper chest wall. No surrounding skin changes. Respiratory: Clear to auscultation bilaterally. No wheezes, rales, rhonchi Abdominal: Soft and nontender. Normal bowel sounds. No guarding or rebound. Nonsurgical abdomen Extremities: No tenderness. No bruising. Normal range of motion. Normal sensation. Skin: No rash or redness. Neurological: Cranial nerves II through XII are grossly intact. Normal strength and sensation. Normal cerebellar function The rest of the physical exam is unremarkable Const Vital Signs: 04/14/25 13:42 04/14/25 14:41 04/14/25 15:00 Temperature 97.7 F L Temperature Source Oral Pulse Rate 110 H 101 H 102 H Respiratory Rate 20 H 15 22 H Blood Pressure 120/63 130/76 H 128/74 H Blood Pressure Mean 82 94 92 Pulse Ox 99 98 97 Oxygen Delivery Method Room Air 04/14/25 16:00 04/14/25 16:15 Temperature 97.9 F Temperature Source Pulse Rate 100 100 Respiratory Rate 16 16 Blood Pressure 126/78 H 126/78 H Blood Pressure Mean 94 94 Pulse Ox 98 98 Oxygen Delivery Method Room Air MDM MDM MDM Narrative Medical decision making narrative: Patient is a 69-year-old female presenting emergency department for an allergic reaction. Patient was seen and examined. Vitals are stable. Patient resting bed comfortably no acute distress. Patient is asymptomatic at my time of evaluation. She did already receive steroids and Benadryl before coming. She was observed here. No additional symptoms here. I spoke to Dr. Martinez to discuss the patient see if there was any workup that he would like done here. He just recommends Benadryl tonight around 7 PM, no other medications for discharge. I did recommend that the patient have an EKG done given her symptoms to rule out any cardiac causes of the reaction. Although it does sound allergic in nature. Patient declines this saying that she does not want an EKG done and does not think this is necessary. Risks and benefits were discussed. Patient understands. Has capacity to make her own decisions. Patient encouraged follow-up with her oncologist and her primary care doctor soon as possible. Patient discharged from the Emergency Department. I do not feel that the patient's evaluation reveals any acute reason for admission at this time. I instructed them to either follow-up with their primary care physician or promptly return to the Emergency Department for reevaluation should symptoms worsen or new symptoms develop. I explained what symptoms would indicate the need to return to the emergency department. Shared decision making was used. The patient voiced understanding of the treatment plan and is agreeable with it. Clinical impression Allergic reaction Discharge Plan Triage Chief Complaint: Allergic Reaction ED Provider: Marilyn Ge Dx/Rx/DC Orders Clinical Impression: Allergic reaction caused by a drug Instructions: ED ADVERSE DRUG REACTION Allergic Prescriptions: No Action fluorometholone 0.1 % drops,suspension 1 drp LEFT EYE DAILY PRN (Reason: PRN) gabapentin 100 mg capsule 200 mg PO QHS pembrolizumab 50 mg recon soln 200 mg IV promethazine 25 mg tablet 25 mg PO TID PRN (Reason: nausea and vomiting) diphenhydramine HCl [Benadryl] 25 mg capsule 50 mg PO Q8H PRN (Reason: allergy symptoms) methylprednisolone 4 mg tablets,dose pack 4 mg PO DAILY Patient Comments: SEE DOSE PACK Primary Care Provider: Babita Morataya NP Referrals: Orville Martinez DO [Med Staff - Active Staff] - 2 Days Babita Morataya NP, MOLECULAR PATHOLOGIST-C [Primary Care Provider] - Activity Restrictions/Additional Instructions: Take another dose of Benadryl tonight around 7 PM. Follow-up with your primary care doctor or Dr. Martinez as soon as possible. Return to the ED with any new or worsening symptoms. Your evaluation in the Emergency Department did not reveal any acute reason for admission. However, I want to emphasize that you may be early in the course of a disease process or illness even if it is not present. For this reason you should follow-up within 24 hours for reevaluation with either your primary care physician or if necessary back here in the Emergency Department. You should return to the Emergency Department immediately if your symptoms worsen or new symptoms develop. Print Language: Djiboutian Disposition Disposition: Home, Self Care Discharge Date/Time: 04/14/25 16:15
[2025-04-14 16:15] VITALS: BP 126/78; PULSE 100; RESP 16; TEMP 36.6; O2SAT 98
--- OUTSIDE RECORDS SUMMARY | 2025-04-14 21:33 | XMS RPT_ITS | CCD ---
Author Organization [facility] Inform ion Partnership [facility] Care Team Providers Care Mail Machine Operator Name Role Phone RAFIA SWITCHMAN SUPERVISOR-RADIOLOGY EQUIPMENT SERVICERBABITA Primary Care Physician RAFIA CHRISTIEN-RADIOLOGY EQUIPMENT SERVICER, BABITA Attending Unavail able LORSON SWITCHMAN SUPERVISOR-RADIOLOGY EQUIPMENT SERVICER, [facility] Unavail able LORSON SWITCHMAN SUPERVISOR-RADIOLOGY EQUIPMENT SERVICER, [facility] Unavail able LORSON SWITCHMAN SUPERVISOR-RADIOLOGY EQUIPMENT SERVICER, BABITA Attending Unavail able LORSON SWITCHMAN SUPERVISOR-RADIOLOGY EQUIPMENT SERVICER, [facility] Unavail able DR TIMUR MINA Attending Unavailable LORSON SWITCHMAN SUPERVISOR-RADIOLOGY EQUIPMENT SERVICER, [facility] Unavail able LORSON SWITCHMAN SUPERVISOR-RADIOLOGY EQUIPMENT SERVICER, BABITA Attending Unavail able LORSON SWITCHMAN SUPERVISOR-RADIOLOGY EQUIPMENT SERVICER, BABITA Attending Unavail able LORSON SWITCHMAN SUPERVISOR-RADIOLOGY EQUIPMENT SERVICER, [facility] Care Unavail able WOO CERON, DR ISBELL Attending Unavailab le LORSON SWITCHMAN SUPERVISOR-RADIOLOGY EQUIPMENT SERVICER, [facility] Unavail able LORSON SWITCHMAN SUPERVISOR-RADIOLOGY EQUIPMENT SERVICER, BABITA Attending Unavail able LORSON SWITCHMAN SUPERVISOR-RADIOLOGY EQUIPMENT SERVICER, [facility] Unavail able LORSON SWITCHMAN SUPERVISOR-RADIOLOGY EQUIPMENT SERVICER, BABITA Attending Unavail able LORSON SWITCHMAN SUPERVISOR-RADIOLOGY EQUIPMENT SERVICER, [facility] Unavail able DR ADITYA SMITH DO Attending Unavailable LORSON SWITCHMAN SUPERVISOR-RADIOLOGY EQUIPMENT SERVICER, [facility] Care Unavail able WOO CERON, DR ISBELL Attending Unavailab le LORSON SWITCHMAN SUPERVISOR-RADIOLOGY EQUIPMENT SERVICER, [facility] Care Unavail able LORSON SWITCHMAN SUPERVISOR-RADIOLOGY EQUIPMENT SERVICER, BABITA Attending Unavail able LORSON SWITCHMAN SUPERVISOR-RADIOLOGY EQUIPMENT SERVICER, [facility] Care Unavail able WOO CERON, DR ISBELL Consulting Unavailab le LORSON SWITCHMAN SUPERVISOR-RADIOLOGY EQUIPMENT SERVICER, BABITA Attending Unavail able LORSON SWITCHMAN SUPERVISOR-RADIOLOGY EQUIPMENT SERVICER, [facility] Unavail able LORSON SWITCHMAN SUPERVISOR-RADIOLOGY EQUIPMENT SERVICER, BABITA Attending Unavail able LORSON SWITCHMAN SUPERVISOR-RADIOLOGY EQUIPMENT SERVICER, [facility] Unavail able LORSON SWITCHMAN SUPERVISOR-RADIOLOGY EQUIPMENT SERVICER, [facility] Unavail able LORSON SWITCHMAN SUPERVISOR-RADIOLOGY EQUIPMENT SERVICER, BABITA Attending Unavail able LORSON SWITCHMAN SUPERVISOR-RADIOLOGY EQUIPMENT SERVICER, BABITA Primary Care Unavail able LORSON SWITCHMAN SUPERVISOR-RADIOLOGY EQUIPMENT SERVICER, [place] Attending Unavail able Lorson SWITCHMAN SUPERVISOR.RADIOLOGY EQUIPMENT SERVICER, [facility] Care Provider Robbie CERON, Sara Unavailable Lidia Hircsh DO Unavailable PROVIDER, UNKNOWN Referring [facility] Unavailable PROVIDER, UNKNOWN Referring Unavailable [facility] Primary Care Unavailable NIDIA WATERMAN Admitting Unavailable NIDIA WATERMAN [facility] Masci DO, Orville A Unavailable Dozoey RN, Jennifer Unavailable Unavailable Deborah Vidal Unavailable Unavailabl e Cyndieson CASH POSTING CLERK-C, [facility] Care Provider Matthew CERON, Dr. Brink Emergency Provider [phone] Cuba Castro MD Attending Provider Dr. Emilie Lennon DO Attending Provider Dr. Emilie Lennon DO Referring Provider Dr. Mazin Arevalo DO Emergency Provider Rafia CASH POSTING CLERK, [facility] Unavailable Cuba Castro Attending Unavailable Rafia CASH POSTING CLERK, [facility] Unavailable Emilie Lennon Attending Unavailable Emilie Lennon Referring Unavailable Cyndieson CASH POSTING CLERK, [facility] Unavailable Mazin Arevalo Attending Unavailable Cyndieson CASH POSTING CLERK, [facility] Unavailable Swapnil Vargas Attending Unavailable Sukhi Pizano Referring Unavailable Lorson CASH POSTING CLERK, [facility] Unavailable Swapnil Vargas Attending Unavailable Sukhi Pizano Consulting Unavailable Sukhi Pizano Referring Unavailable L[place]on CASH POSTING CLERK, [facility] Unavailable Sukhi Pizano Attending Unavailable Sukhi Pizano Referring Unavailable MASCI, ORVILLE A Referring Unavailable LORSON, [facility] Care Unavailable MASCI, [place] A Referring Unavailable LORSON, [facility] Unavailable LORSON, [facility] Care Unavailable SONALI LOVE [place] Un[place], [place] A Referring Unavailable LORSON, [facility] Care Unavailable MASCI, [place] A Referring Unavailable LORSON, [place] Primary Care Unavailable MASCI, [place] A Referring Unavailable LORSON, BABITA Primary Care Unavailable LORSON, [place] Referring Unavailable SARA AVALOS Attending Unavailable LORSON, [place] Primary Care Unavailable MASCI, [place] Larkin Attending Unavailable LORSON, [place] Primary Care Unavailable LIDIA HIRSCH Referring Unavailable NITADRIEL Tejeda Referring Unavailable LORSON, [place] Primary Care Unavailable LORSON, [place] Primary Care Unavailable LIDIA HIRSCH Referring Unavailable LORSON, [place] Primary Care Unavailable KIMMIE COLBY Attending Unavailable LORSON, [place] Primary Care Unavailable PROVIDER, UNKNOWN Referring Unavailable MASCI, [place] A Referring Unavailable LORSON, [place] Primary Care Unavailable LORSON, [place] Primary Care Unavailable SONALI LOVE Attending Unavailable LORSON, [place] Primary Care Unavailable MASCI, [place] A Referring Unavailable LORSON, [place] Primary Care Unavailable LORSON, [place] Primary Care Unavailable MASCI, [place] A Referring Unavailable LORSON, [place] Primary Care Unavailable MASCI, [place] A Referring Unavailable LORSON, [place] Primary Care Unavailable EMILIE LENNON Attending Unavailable WISEMILIE MATOS Attending Unavailable LORSON, [place] Primary Care Unavailable MASCI, [place] A Referring Unavailable LORSON, [place] Primary Care Unavailable SONALI LOVE Referring Unavailable LORSON, [place] Primary Care Unavailable MASCI, [place] A Referring Unavailable LORSON, [place] Primary Care Unavailable EMILIE LENNON Attending Unavailable MASCI, [place] A Referring Unavailable LORSON, [place] Primary Care Unavailable MASCI, [place] A Referring Unavailable LORSON, [place] Primary Care Unavailable MASCI, [place] A Referring Unavailable LORSON, [place] Primary Care Unavailable MASCI, [place] A Referring Unavailable LORSON, [place] Primary Care Unavailable MASCI, [place] A Referring Unavailable LORSON, [place] Primary Care Unavailable MASCI, [place] A Referring Unavailable LORSON, [place] Primary Care Unavailable MASCI, [place] A Referring Unavailable LORSON, [place] Primary Care Unavailable MASCI, [place] A Attending Unavailable LORSON, [place] Primary Care Unavailable L[place]SON, [place] Primary Care Unavailable LORSON, [place] Primary Care Unavailable SELF Referring Unavailable LORSON, [place] Primary Care Unavailable LIDIA HIRSCH Attending Unavailable MASCI, [place]VIL[place] A Referring Unavailable LORSON, [place] Primary Care Unavailable MASCI, [place] A Referring Unavailable LORSON, [place] Primary Care Unavailable MASCI, [place]VIL[place] A Referring Unavailable LORSON, [place] Primary Care Unavailable LORSON, [place] Primary Care Unavailable SONALI LOVE Attending Unavailable LORSON, [place] Primary Care Unavailable [facility] Primary Care Unavailable LIDIA HIRSCH Attending Unavailable LIDIA HIRSCH Referring Unavailable [facility] Primary Care Unavailable [facility] Primary Care Unavailable KIMMIE COLBY Referring Unavailable ORVILLE MARTINEZ Referring Unavailable [facility] Primary Care Unavailable LIDIA HIRSCH C Referring Unavailable [facility] Primary Care Unavailable Dr. Mazin Arevalo DO Attending Provider Joo CERON, Dr. Sanders Emergency Provider Unavailab le Allergies Allergy Classification Reported Allergen(s) Allergy Type Date of Onset Reaction(s) Facility (10 sources) atorvastatin; Translations: [atorvastatin] Drug Allergy Muscle pain (finding) [facility] (10 sources) misc non-codified allergy 1 Allergy to substance Itching (finding) [facility] Comment on above: [place] (20 sources) HMG-CoA reductase inhibitor; Translations: [[id number] A REDUCTASE INHIBITORS] Drug Intolerance [address] [facility] (4 sources) Cwgtcav-Pdl-Ghe Reductase Inhibitor Propensity to adverse reactions 5 Pain in joints [facility] (3 sources) Adhesive Tape; Translations: [adhesive tape] Allergy to substance 5 redness [facility] (1 source) Dbpsosr-Ztl-Lgm Reductase Inhibitor Drug allergy (disorder) 5 [facility] Repository Medications Current Medications Medication Drug Class(es) Dates Sig (Normalized) Sig (Original) acetaminophen 325 mg oral capsule (20 sources) take 2 capsules by mouth once [...] qDay, # 30 tab(s), 6 Refill(s), Pharmacy: [facility] #[id number], 165.1, cm, 05/28/24 8:19:00 EDT, Height, kg, 05/28/24 8:19:00 EDT, Dosing Weight Start Date: 05/28/24 Status: Ordered cider vinegar oral tablets (1 source) Start: 11-04-2023 cider vinegar oral tablets 0 Refill(s) Start Date: 11/04/23 Status: Ordered Collagen Skin Renewal (6 sources) Start: 11-04-2023 Collagen Skin Renewal Oral, qDay, 0 Refill(s) Start Date: 11/04/23 Status: Ordered doxycycline monohydrate 100 mg oral capsule (5 sources) Tetracycline-class Drug Start: 03-09-2025 End: 03-16-2025 take 1 capsule by mouth twice daily doxycycline monohydrate (MONODOX) 100 mg capsule Take 1 capsule by mouth two times a day for 7 days. 14 capsule 03/09/2025 03/16/2025 Active 1 ml evolocumab 140 mg/ml auto-injector (2 sources) PCSK9 Inhibitor Start: 05-28-2024 inject 1 dose by subcutaneous injection every other week Repatha SureClick 140 mg/mL subcutaneous solution Dose : 140 mg =, Subcutaneous, q2wk, rotate injection sites, # 6 EA, 6 Refill(s), Pharmacy: [facility] #[id number], 165.1, cm, 05/28/24 8:19:00 EDT, Height, kg, 05/28/24 8:19:00 EDT, Dosing Weight Start Date: 05/28/24 Status: Ordered fluorometholone 1 mg/ml ophthalmic suspension (4 sources) Corticosteroid Start: 02-27-2025 Fluorometholone 0.1 % drops,suspension Active 1 NMA LEFT EYE DAILY as needed for PRN February 27, 2025 12:00am Glucosamine (6 sources) Start: 11-04-2023 glucosamine Oral, with turmeric, 0 Refill(s) Start Date: 11/04/23 Status: Ordered Ibuprofen (5 sources) Nonsteroidal Anti-inflammatory Drug Start: 02-02-2024 ibuprofen 0 Refill(s) Start Date: 02/02/24 Status: Ordered lidocaine 25 mg/ml / prilocaine 25 mg/ml topical cream (20 sources) Antiarrhythmic, Amide Local Anesthetic Start: 01-25-2025 lidocaine-prilocain e (EMLA) 2.5-2.5 % cream Apply 1 application to affected area as needed. 01/25/2025 Active Start: 01-25-2025 End: 01-26-2025 lidocaine-prilocaine (EMLA) 2.5-2.5 % cream Apply to affected area as needed (Apply to port site 60 minutes prior to accessing) for up to 1 day. 15 g 2 01/25/2025 01/26/2025 Active methylPREDNISolone 4 mg oral tablet (6 sources) Corticosteroid Start: 03-09-2025 take 1 tablet by mouth once daily Methylprednisolone 4 mg tablets,dose pack Active 4 mg PO DAILY March 09, 2025 12:00am Start: 02-08-2025 End: 02-14-2025 methylPREDNISolone (MEDROL, SOLOMON,) [...] # 30 tab(s), 6 Refill(s), Pharmacy: [facility] #[id number], 165.1, cm, 05/28/24 8:19:00 EDT, Height, kg, [...] 25 tab(s), 11 Refill(s), Pharmacy: [facility] #[id number], 165.1, cm, 05/28/24 8:19:00 EDT, Height, kg, 05/28/24 8:19:00 EDT, Dosing Weight Start Date: 05/28/24 Status: Ordered nutritional supplement (11 sources) Start: 02-02-2024 nutritional supplement Nerve Repair, 0 Refill(s) Start Date: 02/02/24 Status: Ordered Start: 11-04-2023 nutritional cortes pplement Super beets, 0 Refill(s) Start Date: 11/04/23 Status: Ordered Pembrolizumab 50 mg recon soln (4 sources) Start: 02-27-2025 Pembrolizumab 50 mg recon soln [...] Active promethazine hydrochloride 25 mg oral tablet (4 sources) Phenothiazine Start: 02-27-2025 take 1 tablet by mouth three times daily as needed for nausea and vomiting Promethazine 25 mg tablet Active 25 mg PO THREE TIMES A DAY as needed for nausea and vomiting February 27, 2025 12:00am Completed/Discontinued Medications Medication Drug Class(es) Dates Sig (Normalized) Sig (Original) ascorbic acid 500 mg oral capsule (4 sources) Vitamin C Start: 07-03-2021 End: 01-01-2022 Ascorbic Acid (Vitamin C) 500 mg capsule Discontinued mg PO July 03, 2021 1:00am January 01, 2022 9:27am CARBOplatin 160.2 mg in NaCl 0.9% 126.02 mL (PARAPLATIN) (2 sources) Start: 04-06-2025 End: 04-06-2025 160.2 mg (Target AUC = 1.5), INTRAVENOUS, Administer over 30 Minutes, ONCE, 1 dose, On Fri04/06/25 at 1300, Approx Total Volume - Expires: 04/07/25 @ 1300 Hazardous Chemotherapy Drug: Use appropriate PPE. Antineoplastic Irritant. Start: 03-30-2025 End: 03-30-2025 160.2 mg (Target AUC = 1.5), INTRAVENOUS, Administer over 30 Minutes, ONCE, 1 dose, On Fri03/30/25 at 1300, Approx Total Volume - Expires: 03/31/25 @ 1115 Hazardous Chemotherapy Drug: Use appropriate PPE. Antineoplastic Irritant. CARBOplatin 163.5 mg in NaCl 0.9% 126.35 mL (PARAPLATIN) (1 source) Start: 03-09-2025 End: 03-09-2025 163.5 mg (Target AUC = 1.5), INTRAVENOUS, Administer over 30 Minutes, ONCE, 1 dose, On Fri03/09/25 at 1300, exp 1200 03/10/25 (room temp) Hazardous Chemotherapy Drug: Use appropriate PPE. Antineoplastic Irritant. CARBOplatin 172.5 mg in NaCl 0.9% 127.25 [...] Drug: Use appropriate PPE. Antineoplastic Irritant. CARBOplatin 185.1 mg in NaCl 0.9% 128.51 mL (PARAPLATIN) (1 source) Start: 03-02-2025 End: 03-02-2025 185.1 mg (Target AUC = 1.5), INTRAVENOUS, Administer over 30 Minutes, ONCE, 1 dose, On Fri03/02/25 at 1000, exp 0900 03/03/25 (room temp) Hazardous Chemotherapy Drug: Use appropriate [...] Antineoplastic Irritant. cholecalciferol 0.01 mg oral capsule (4 sources) Vitamin D Start: 07-03-2021 End: 01-01-2022 take 1 capsule by mouth once daily Cholecalciferol (Vitamin D3) 10 mcg (400 unit) capsule Discontinued 10 ug PO DAILY July 03, 2021 1:00am January 01, 2022 9:28am 1 ml dexamethasone phosphate 10 mg/ml injection (10 sources) Corticosteroid Start: 04-06-2025 End: 04-06-2025 10 mg, INTRAVENOUS, ONCE, 1 dose, On Fri04/06/25 at 1130, Administer IV doses up to 10 mg over 5 minutes. Administer doses > 10 mg over 15 to 30 minutes. Start: 03-30-2025 End: 03-30-2025 10 mg, INTRAVENOUS, ONCE, 1 dose, On Fri03/30/25 at 1100, Administer IV doses up to 10 mg over 5 minutes. Administer doses > 10 mg over 15 to 30 minutes. Start: 03-09-2025 End: 03-09-2025 10 mg, INTRAVENOUS, ONCE, 1 dose, On Fri03/09/25 at 1030, Administer IV doses up to 10 mg over 5 minutes. Administer doses > 10 mg over 15 to 30 minutes. Start: 03-02-2025 End: 03-02-2025 10 mg, INTRAVENOUS, ONCE, 1 dose, On Fri03/02/25 at 0800, Administer IV doses up to 10 mg over 5 minutes. Administer doses > 10 mg over 15 to 30 minutes. Start: 02-23-2025 End: 02-23-2025 10 mg, INTRAVENOUS, [...] Fri01/18/25 at 0830, Administer over 5 minutes. diphenhydrAMINE (14 sources) Histamine-1 Receptor Antagonist Start: 04-06-2025 End: 04-06-2025 25 mg, INTRAVENOUS, ONCE, 1 dose, On Fri04/06/25 at 1130 Start: 03-30-2025 End: 03-30-2025 25 mg, INTRAVENOUS, ONCE, 1 dose, On Fri03/30/25 at 1100 Start: 03-09-2025 End: 03-09-2025 25 mg, INTRAVENOUS, ONCE, 1 dose, On Fri03/09/25 at 1030 Start: 03-02-2025 End: 03-02-2025 25 mg, INTRAVENOUS, ONCE, 1 dose, On Fri03/02/25 at 0800 Start: 02-27-2025 take 2 capsules by m outh every eight hours as needed Diphenhydramine Hcl [...] ONCE, 1 dose, On Fri01/18/25 at 0830 2 ml famotidine 10 mg/ml injection (20 sources) Histamine-2 Receptor Antagonist Start: 04-06-2025 End: 04-06-2025 20 mg, INTRAVENOUS, ONCE, 1 dose, On Fri04/06/25 at 1130, REFRIGERATE Start: 03-30-2025 End: 03-30-2025 20 mg, INTRAVENOUS, ONCE, 1 dose, On Fri03/30/25 at 1100, REFRIGERATE Start: 03-09-2025 End: 03-09-2025 20 mg, INTRAVENOUS, ONCE, 1 dose, On Fri03/09/25 at 1030, REFRIGERATE Start: 03-02-2025 End: 03-02-2025 20 mg, INTRAVENOUS, ONCE, 1 dose, On Fri03/02/25 at 0800, REFRIGERATE Start: 02-23-2025 End: 02-23-2025 20 mg, INTRAVENOUS, [...] 11:05am take 1 tablet by bernarda th every twelve hours as needed famotidine (PEPCID) 20 mg tablet Take 20 mg by mouth two times a day as needed. Active 0.5 ml filgrastim-aafi 0.6 mg/ml prefilled syringe (7 sources) Leukocyte Growth Factor Start: 04-08-2025 End: 04-08-2025 inject 1 dose by subcutaneous injection once 300 mcg, SUBCUTANEOUS, ONCE, 1 dose, On Fri04/08/25 at 0930, Refrigerate - Protect from light Start: 04-07-2025 End: 04-07-2025 inject 1 dose by subcutaneous injection once 300 mcg, SUBCUTANEOUS, ONCE, 1 dose, On Fri04/07/25 at 0900, Refrigerate - Protect from light Start: 04-01-2025 End: 04-01-2025 inject 1 dose by subcutaneous injection once 300 mcg, SUBCUTANEOUS, ONCE, 1 dose, On Fri04/01/25 at 0930, Refrigerate - Protect from light Start: 03-31-2025 End: 03-31-2025 inject 1 dose by subcutaneous injection once 300 mcg, SUBCUTANEOUS, ONCE, 1 dose, On Fri03/31/25 at 0930, Refrigerate - Protect from light Start: 03-25-2025 End: 03-25-2025 inject 1 dose by subcutaneous injection once 300 mcg, SUBCUTANEOUS, ONCE, 1 dose, On Fri03/25/25 at 1500, Refrigerate - Protect from light Start: 03-24-2025 End: 03-24-2025 inject 1 dose by subcutaneous injection once 300 mcg, SUBCUTANEOUS, ONCE, 1 dose, On Fri03/24/25 at 1100, Refrigerate - Protect from light Start: 03-23-2025 End: 03-23-2025 inject 1 dose by subcutaneous injection once 300 mcg, SUBCUTANEOUS, ONCE, 1 dose, On Fri03/23/25 at 0930, Refrigerate - Protect from light flurbiprofen 100 mg oral tablet (8 sources) Nonsteroidal Anti-inflammatory Drug Start: 11-06-2021 End: 02-27-2025 take 1 tablet by mouth three times daily at mealtime for pain Flurbiprofen 100 mg tablet Discontinued 100 mg PO THREE TIMES A DAY as needed for headache or neck pain 90 0 November 20, 2021 9:53am February 27, 2025 10:32am take with food; do not take with other NSAIDs gabapentin 100 mg oral capsule (20 sources) Anti-epileptic Agent Start: 03-02-2025 End: 05-01-2025 take 1 capsule by mouth once daily at bedtime gabapentin (NEURONTIN) 100 mg capsule Take 1 capsule by mouth daily at bedtime for 60 days. 30 capsule 1 03/02/2025 03/22/2025 Discontinued Start: 02-21-2025 End: 03-23-2025 take 2 capsules by mouth at bedtime Gabapentin 100 mg capsule Active 200 mg PO AT BEDTIME February 27, 2025 12:00am iv contrast (will be provide d with radiology test) (12 sources) Start: 01-05-2025 [...] >80, # 30 tab(s), 6 Refill(s), Pharmacy: [facility] #[id number], 165.1, cm, 05/28/24 8:19:00 EDT, Height, kg, 05/28/24 8:19:00 EDT, Dosing Weight Start Date: 05/28/24 Status: Ordered Start: 10-28-2023 lisinopril 10 mg oral tablet Dose : 10 mg = 1 tab(s), Oral, qDay, # 30 tab(s), 0 Refill(s), Pharmacy: [facility]/pharmacy #[id number], 165, cm, 06/26/23 8:39:00 EST, Height, kg, 06/26/23 8:39:00 EST, Dosing Weight Start Date: 10/28/23 Status: Ordered End: 03-14-2025 take 2.5 mg by mouth once daily lisinopril (ZESTRIL) 5 mg tablet Take 2.5 mg by mouth once daily. 03/14/2025 Discontinued melatonin 5 mg oral capsule (4 sources) Start: 11-06-2021 End: 06-25-2024 take 1 mg by mouth at bedtime as needed Melatonin 5 mg capsule Discontinued mg PO BEDTIME as needed November 06, 2021 12:00am June 25, 2024 2:21pm omeprazole 40 mg delayed release oral capsule (20 sources) Proton Pump Inhibitor Start: 11-06-2021 End: 03-09-2025 take 1 capsule by mouth once daily Omeprazole 40 mg capsule,delayed release(DR/EC) Discontinued 40 mg PO DAILY 30 0 December 03, 2021 8:46am March 09, 2025 11:29am ondansetron 4 mg oral tablet (4 sources) Serotonin-3 Receptor Antagonist Start: 10-23-2021 End: 11-06-2021 take 1 tablet by mouth three times daily as needed for nausea and vomiting Ondansetron Hcl 4 mg tablet Discontinued 4 mg PO THREE TIMES A DAY as needed for nausea and vomiting 90 0 October 23, 2021 12:00am November 06, 2021 11:12am PACLitaxel 149.58 mg in NaCl 0.9% 299.93 mL (TAXOL) (10 sources) Start: 04-06-2025 End: 04-06-2025 149.58 mg (rounded from 149.6 mg = 80 mg/m2 1.87 m2 Treatment Plan BSA from Recorded weight), INTRAVENOUS, at 99.98 mL/hr, Administer over 3 Hours, ONCE, 1 dose, On Fri04/06/25 at 1200, EXP: 04/11/25 Hazardous Chemotherapy Drug: Use appropriate PPE. Antineoplastic Irritant with Vesicant Potential. Administer with non-DEHP 0.2 micron filter and tubing. Start: 03-30-2025 End: 03-30-2025 149.58 mg (rounded from 149. 6 mg = 80 mg/m2 1.87 m2 Treatment Plan BSA from Recorded weight), INTRAVENOUS, at 99.98 mL/hr, Administer over 3 Hours, ONCE, 1 dose, On Fri03/30/25 at 1200, exp 139904/08/25 (refrigerated) Hazardous Chemotherapy Drug: Use appropriate PPE. Antineoplastic Irritant with Vesicant Potential. Administer with non-DEHP 0.2 micron filter and tubing. Start: 03-09-2025 End: 03-09-2025 149.58 mg (rounded from 149. 6 mg = 80 mg/m2 1.87 m2 Treatment Plan BSA from Recorded weight), INTRAVENOUS, at 299.93 mL/hr, Administer over 1 Hours, ONCE, 1 dose, On Fri03/09/25 at 1100, exp 89903/19/25 (refrigerated) Hazardous Chemotherapy Drug: Use appropriate PPE. Antineoplastic Irritant with Vesicant Potential. Administer with non-DEHP 0.2 micron filter and tubing. Start: 03-02-2025 End: 03-02-2025 149.58 mg (rounded from 149. 6 mg = 80 mg/m2 1.87 m2 Treatment Plan BSA from Recorded weight), INTRAVENOUS, at 299.93 mL/hr, Administer over 1 Hours, ONCE, 1 dose, On Fri03/02/25 at 0900, exp 89903/12/25 (refrigerated) Hazardous Chemotherapy Drug: Use appropriate PPE. Antineoplastic Irritant with Vesicant Potential. Administer with non-DEHP 0.2 micron filter and tubing. Start: 02-23-2025 End: 02-23-2025 149.58 mg (rounded from 149. 6 mg = 80 mg/m2 1.87 m2 Treatment Plan BSA from Recorded weight), INTRAVENOUS, at 299.93 mL/hr, Administer over 1 Hours, ONCE, 1 dose, On Fri02/23/25 at 1100, 03/04/25 @ (refrigerated) Hazardous Chemotherapy Drug: Use [...] 1 dose, On Fri01/18/25 at 0930, exp 1600 01/19/25 (room temp) Hazardous Chemotherapy Drug: Use appropriate PPE. Antineoplastic Irritant with Vesicant Potential. Administer with non-DEHP 0.2 micron filter and tubing. 5 ml palonosetron 0.05 mg/ml injection (10 sources) Serotonin-3 Receptor Antagonist Start: 04-06-2025 End: 04-06-2025 0.25 mg, INTRAVENOUS, ONCE, 1 dose, On Fri04/06/25 at 1130, Flush IV line with NS prior to and following administration. Start: 03-30-2025 End: 03-30-2025 0.25 mg, INTRAVENOUS, ONCE, 1 dose, On Fri03/30/25 at 1100, Flush IV line with NS prior to and following administration. Start: 03-09-2025 End: 03-09-2025 0.25 mg, INTRAVENOUS, ONCE, 1 dose, On Fri03/09/25 at 1030, Flush IV line with NS prior to and following administration. Start: 03-02-2025 End: 03-02-2025 0.25 mg, INTRAVENOUS, ONCE, 1 dose, On Fri03/02/25 at 0800, Flush IV line with NS prior to and following administration. Start: 02-23-2025 End: 02-23-2025 0.25 mg, INTRAVENOUS, [...] mg in NaCl 0.9% 66 mL (KEYTRUDA) (3 sources) Start: 03-30-2025 End: 03-30-2025 200 mg, INTRAVENOUS, Adminis ter over 30 Minutes, ONCE, 1 dose, On Fri03/30/25 at 1130, Approx Total Volume - Expires: 03/30/25 @ 1715 Administer with 0.2 micron filter. Start: 02-09-2025 End: 02-09-2025 200 mg, INTRAVENOUS, [...] temp) Administer with 0.2 micron filter. predniSONE 20 mg oral tablet (19 sources) Start: 03-01-2025 End: 03-22-2025 predniSONE (DELTASONE) 20 mg tablet Take 3 tabs daily x 4 days, then 2 tabs daily x4 days, then 1 tab daily x4 days, then half tab daily x4 days. 30 tablet 03/01/2025 03/22/2025 Discontinued Start: 10-23-2021 End: 11-06-2021 Prednisone 10 mg tablet Disc ontinued 0 .Route .COMPLEX 33 0 October 23, 2021 12:00am November 06, 2021 11:12am 6 tabs x 3 days; 5 tabs x 1 day; 4 tabs x 1 day; 3 tabs x 1 day; 2 tabs x 1 day; 1 tab x 1 day tiZANidine 4 mg oral tablet (9 sources) Central alpha-2 Adrenergic Agonist Start: 11-20-2021 End: 06-25-2024 take 1 tablet by mouth every eight hours as needed, then take 1-2 tablets by mouth once daily at bedtime as needed Tizanidine 4 mg tablet Discontinued 0 .ROUTE .COMPLEX as needed for muscle spasticity/neck pain 30 0 November 20, 2021 12:00am June 25, 2024 2:21pm Take 1 tab PO Q8H PRN during daytime hours, and 1-2 tabs QHS PRN Lparmmdh-Crcf-Pga xl-Vxqd-Stktf 100 mg-150 mg- 50 mg-150 mg capsule (4 sources) Start: 07-03-2021 End: 06-25-2024 Cxgmwndu-Dzrv-Tcdut-O reg-Capry 100 mg-150 mg- 50 mg-150 mg capsule Discontinued NMA PO July 03, 2021 1:00am June 25, 2024 2:22pm zinc sulfate 66 mg oral tablet (4 sources) Start: 07-03-2021 End: 06-25-2024 take 1 tablet by mouth once daily Zinc Sulfate (Zinc-15) 66 mg tablet Discontinued 66 mg PO DAILY July 03, 2021 1:00am June 25, 2024 2:22pm Problems Active Problems Problem Classification Problem Date Documented Da te Episodic/Chronic Administrative/social admission (1 source) Patient encounter status; Translations: [Counseling, unspecified] 01-17-2025 Episodic Allergic reactions (6 sources) Environmental allergy; Translations: [Other allergy status, other than to drugs and biological substances] 07-03-2021 Episodic Cancer of breast (20 sources) Primary malignant neoplasm of breast; Translations: [Malignant neoplasm of breast upper inner quadrant] Onset: 5 12-08-2024 Chronic Cancer of breast (5 sources) History of malignant neoplasm of breast; Translations: [Personal history of malignant neoplasm of breast] 02-22-2025 Episodic Diseases of white blood cells (3 sources) Neutropenia due to and following chemotherapy; Translations: [Agranulocytosis secondary to cancer chemotherapy] Onset: 5 03-07-2025 Chronic Disorders of lipid metabolism (16 sources) Mixed hyperlipidemia; Translations: [Dyslipidemia] Onset: 4 05-10-2020 Chronic E Codes: Adverse effects of medical drugs (1 source) Adverse effect of antineoplastic and immunosuppressive drugs, initial encounter; Translations: [Chemotherapy-induced neutropenia] Onset: 5 Episodic Esophageal disorders (4 sources) Gastroesophageal reflux disease; Translations: [Gastro-esophageal reflux disease without esophagitis] 11-06-2021 Chronic Essential hypertension (7 sources) Hypertensive disorder; Translations: [Essential (primary) hypertension] Onset: 4 11-04-2023 Chronic Genitourinary symptoms and ill-defined conditions (1 source) Painful micturition, unspecified; Translations: [Painful micturition, unspecified] Onset: 5 Episodic Headache; including migraine (18 sources) Headache; Translations: [Occipital headache] 10-18-2021 Episodic Hemorrhoids (4 sources) Hemorrhoids; Translations: [Unspecified hemorrhoids] 07-03-2021 Episodic Immunizations and screening for infectious disease (4 sources) Contact with and (suspected) exposure to other viral communicable diseases; Translations: [Contact with or suspected exposure to other viral communicable disease] 07-03-2021 Episodic Intestinal obstruction without hernia (5 sources) Fecal impaction; Translations: [Fecal impaction of rectum] Onset: 5 02-27-2025 Episodic Lymphadenitis (20 sources) Lymphadenopathy; Translations: [Enlarged lymph nodes, unspecified] Onset: 5 01-11-2025 Episodic Malaise and fatigue (6 sources) Malaise and fatigue; Translations: [Other malaise] Onset: 5 01-18-2025 Episodic Menopausal disorders (9 sources) Menopausal syndrome 10-16-2022 Chronic Osteoporosis (1 source) Primary osteoporosis; Translations: [Age-related osteoporosis without current pathological fracture] Chronic Other circulatory disease (4 sources) H/O: hypertension; Translations: [Personal history of other diseases of the circulatory system] 05-31-2019 Episodic Other connective tissue disease (4 sources) Spasm of cervical paraspinous muscle; Translations: [Other muscle spasm] 11-20-2021 Episodic Other ear and sense organ disorders (10 sources) Tinnitus 10-17-2021 Episodic Other endocrine disorders (4 sources) Hypoadrenalism; Translations: [Unspecified adrenocortical insufficiency] 01-18-2025 Chronic Other endocrine disorders (1 source) Unspecified adrenocortical insufficiency; Translations: [Hypoadrenalism (HCC)] Onset: 5 Chronic Other eye disorders (4 sources) Pain in eye; Translations: [Ocular pain, left eye] 06-01-2019 Episodic Other female genital disorders (10 sources) Polyp of corpus uteri; Translations: [Polyp of corpus uteri] Onset: 5 01-17-2025 Episodic Other female genital disorders (1 source) Polyp of corpus uteri; Translations: [Polyp of corpus uteri] 03-07-2025 Episodic Other gastrointestinal disorders (1 source) Diarrhea; Translations: [Diarrhea, unspecified] 12-08-2024 Episodic Other liver diseases (1 source) Lesion of liver; Translations: [Liver disease, unspecified] 01-06-2025 Chronic Other liver diseases (1 source) Liver disease, unspecified; Translations: [Lesion of liver greater than 1 cm in diameter] Onset: 5 Chronic Other lower respiratory disease (12 sources) Multiple nodules of lung; Translations: [Other nonspecific abnormal finding of lung field] 01-04-2025 Episodic Other lower respiratory disease (1 source) Other nonspecific abnormal finding of lung field; Translations: [Lung nodules] Onset: 5 Episodic Other nervous system disorders (1 source) Neuropathy caused by chemical substance; Translations: [Drug-induced polyneuropathy] 03-14-2025 Chronic Other screening for suspected conditions (not mental disorders or infectious disease) (5 sources) Endometrium thickened; Translations: [Abnormal findings on diagnostic imaging of other specified body structures] Onset: 5 01-04-2025 Chronic Other upper respiratory disease (4 sources) Seasonal allergy; Translations: [Other seasonal allergic rhinitis] 07-03-2021 Chronic Residual codes; unclassified (6 sources) Flushing 11-04-2023 Episodic Residual codes; unclassified (2 sources) Other specified postprocedural states; Translations: [Status post hysteroscopic polypectomy] 03-18-2025 Episodic Residual codes; unclassified (1 source) Postoperative state; Translations: [Other specified postprocedural states] 03-25-2025 Episodic Retinal detachments; defects; vascular occlusion; and retinopathy (10 sources) Retinal detachment 10-17-2021 Episodic Spondylosis; intervertebral disc disorders; other back problems (13 sources) Cervico-occipital neuralgia; Translations: [Occipital neuralgia] 02-02-2024 Episodic Syncope (4 sources) Vasovagal symptom; Translations: [Syncope and collapse] 02-27-2025 Episodic Thyroid disorders (5 sources) Acquired hypothyroidism; Translations: [Hypothyroidism, unspecified] Onset: 5 01-18-2025 Chronic Unclassified (20 sources) Patient encounter status 10-16-2022 Unclassified (1 source) Endometrial polyp 01-18-2025 Unclassified (1 source) 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); Translations: [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)] Onset: 5 Unclassified (1 source) Consult Onset: Urinary tract infections (2 sources) Cystitis; Translations: [Cystitis, unspecified without hematuria] 03-18-2025 Episodic Past or Other Problems Problem Classification Problem Date Documented Date Episodic/Chronic Nonmalignant breast conditions (3 sources) Lump in upper inner quadrant of left breast; Translations: [Unspecified lump in the left breast, upper inner quadrant] Onset: 12-01-2024 12-09-2024 Episodic Nonspecific chest pain (13 sources) Chest pain; Translations: [Atypical chest pain] Onset: 06-18-2024 05-24-2024 Episodic Other nervous system disorders (2 sources) Paresthesia of skin; Translations: [Paresthesia of skin] Onset: 06-18-2024 Episodic Other screening for suspected conditions (not mental disorders or infectious disease) (18 sources) Electrocardiogram abnormal; Translations: [Left axis deviation] Onset: 06-18-2024 05-24-2024 Episodic Residual codes; unclassified (2 sources) Estrogen receptor negative status [ER-]; Translations: [Malignant neoplasm of upper-inner quadrant of left breast in female, estrogen receptor negative (HCC)] Onset: 01-03-2025 Episodic Results Test Name Value Interpretation Reference Range Facility CBC W Auto Differential pane l (Bld)on 04-06-2025 Basophils (Bld) [#/Vol] 0.05 10*3/uL [facility] Basophils/100 WBC (Bld) 1.5 % [facility] Differential cell count method Nom (Bld) Auto [facility] Eosinophils (Bld) [#/Vol] 0.05 10*3/uL [facility] Eosinophils/100 WBC (Bld) 1.5 % [facility] Erythrocyte distribution width (RBC) [Ratio] 15.1 % High 11.5 - 15.0 % [facility] Hematocrit (Bld) [Volume fraction] 32.0 % Low 36.0 - 46.0 % [facility] Hemoglobin (Bld) [Mass/Vol] 11.2 g/dL Low 11.5 - 15.5 g/dL [facility] Immature granulocytes (Bld) [#/Vol] [facility] Immature granulocytes/100 WBC (Bld) 0.3 % [facility] Interpretation and review of laboratory results Abnormal [facility] Lymphocytes (Bld) [#/Vol] 1.23 10*3/uL [facility] Lymphocytes/100 WBC (Bld) 36.5 % [facility] MCH (RBC) [Entitic mass] 35.9 pg High 26.0 - 34.[address] [facility] MCHC (RBC) [Mass/Vol] 35.0 g/dL 30.5 - 36.0 g/dL [facility] MCV (RBC) [Entitic vol] 102.6 fL High 80.0 - 100.[address] [facility] Monocytes (Bld) [#/Vol] 0.30 10*3/uL [facility] Monocytes/100 WBC (Bld) 8.9 % [facility] Neutrophils (Bld) [#/Vol] 1.73 10*3/uL [facility] Neutrophils/100 WBC (Bld) 51.3 % [facility] Nucleated RBC (Bld) [#/Vol] [facility] Nucleated RBC/100 WBC (Bld) [Ratio] 0.0 % /[address] [facility] Platelet mean volume (Bld) [Entitic vol] 9.1 fL 9.0 - 12.[address] [facility] Platelets (Bld) [#/Vol] 209 10*3/uL [facility] RBC (Bld) [#/Vol] 3.12 10*6/uL Low 3.90 - 5.2 0 m/uL [facility] WBC (Bld) [#/Vol] 3.37 10*3/uL Low [facility] Basophils (Bld) [#/Vol] 0.05 10*3/uL Normal <0.11 [facility] Comment on above: Order Comment: Speci men Type: BLOOD SPECIMENOrdering Facility: [facility] Address: [address] [place] [address] Performed By: #### 5 7021-8 ####[facility] VALERIANOWNCLIA [id number] [place] [address] [place] Basophils/100 WBC (Bld) 1.5 % Normal [facility] Comment on above: Order Comment: Speci men Type: BLOOD SPECIMENOrdering Facility: [facility] Address: [address] [place] [address] Performed By: #### 5 7021-8 ####[facility] MILLWNCLIA [id number] [place] [address] [place] Differential cell count method Nom (Bld) Auto Normal [facility] Comment on above: Order Comment: Speci men Type: BLOOD SPECIMENOrdering Facility: [facility] Address: [address] [place] [address] Performed By: #### 5 7021-8 ####[facility] MILLWNCLIA [id number] [place] [address] [place] Eosinophils (Bld) [#/Vol] 0.05 10*3/uL Normal <0.46 [facility] Comment on above: Order Comment: Speci men Type: BLOOD SPECIMENOrdering Facility: [facility] Address: [address] [place] [address] Performed By: #### 5 7021-8 ####[facility] MILLTOWNCLIA [id number] [place] [address] [place] Eosinophils/100 WBC (Bld) 1.5 % Normal [facility] Comment on above: Order Comment: Speci men Type: BLOOD SPECIMENOrdering Facility: [facility] Address: [address] [place] [address] Performed By: #### 5 7021-8 ####[facility] MILLWNCLIA [id number] [place] [address] [place] Erythrocyte distribution width (RBC) [Ratio] 15.1 % High 11.5-15.0 [facility] Comment on above: Order Comment: Speci men Type: BLOOD SPECIMENOrdering Facility: [facility] Address: [address] [place] [address] Performed By: #### 5 7021-8 ####[facility] [id number] [place] [address] [place] Hematocrit (Bld) [Volume fraction] 32.0 % Low 36.0-46.0 [facility] Comment on above: Order Comment: Speci men Type: BLOOD SPECIMENOrdering Facility: [facility] Address: [address] [place] [address] Performed By: #### 5 7021-8 ####[facility] [id number] [place] [address] [place] Hemoglobin (Bld) [Mass/Vol] 11.2 g/dL Low 11.5-15.5 [facility] Comment on above: Order Comment: Speci men Type: BLOOD SPECIMENOrdering Facility: [facility] Address: [address] [place] [address] Performed By: #### 5 7021-8 ####[facility] [id number] [place] [address] [place] Immature granulocytes (Bld) [#/Vol] 10*3/uL Normal <0.10 [facility] Comment on above: Order Comment: Speci men Type: BLOOD SPECIMENOrdering Facility: [facility] Address: [address] [place] [address] Performed By: #### 5 7021-8 ####[facility] CHARLOTTENCLI [id number] [place] [address] [place] Immature granulocytes/100 WBC (Bld) 0.3 % Normal [facility] Comment on above: Order Comment: Speci men Type: BLOOD SPECIMENOrdering Facility: [facility] Address: [address] [place] [address] Performed By: #### 5 7021-8 ####[facility] [id number] [place] [address] [place] Lymphocytes (Bld) [#/Vol] 1.23 10*3/uL Normal 1.00-4.00 [facility] Comment on above: Order Comment: Speci men Type: BLOOD SPECIMENOrdering Facility: [facility] Address: [address] [place] [address] Performed By: #### 5 7021-8 ####[facility] [id number] [place] [address] [place] Lymphocytes/100 WBC (Bld) 36.5 % Normal [facility] Comment on above: Order Comment: Speci men Type: BLOOD SPECIMENOrdering Facility: [facility] Address: [address] [place] [address] Performed By: #### 5 7021-8 ####[facility] [id number] [place] [address] [place] MCH (RBC) [Entitic mass] 35.9 pg High 26.0-34.0 [facility] Comment on above: Order Comment: Speci men Type: BLOOD SPECIMENOrdering Facility: [facility] Address: [address] [place] [address] Performed By: #### 5 7021-8 ####[facility] [id number] [place] [address] [place] MCHC (RBC) [Mass/Vol] 35.0 g/dL Normal 30.5-36.0 [facility] Comment on above: Order Comment: Speci men Type: BLOOD SPECIMENOrdering Facility: [facility] Address: [address] [place] [address] Performed By: #### 5 7021-8 ####[facility] GINGERA [id number] [place] [address] [place] MCV (RBC) [Entitic vol] 102.6 fL High 80.0-100.0 [facility] Comment on above: Order Comment: Speci men Type: BLOOD SPECIMENOrdering Facility: [facility] Address: [address] [place] [address] Performed By: #### 5 7021-8 ####[facility] CHARLOTTENCSUZY [id number] [place] [address] [place] Monocytes (Bld) [#/Vol] 0.30 10*3/uL Normal <0.87 [facility] Comment on above: Order Comment: Speci men Type: BLOOD SPECIMENOrdering Facility: [facility] Address: [address] [place] [address] Performed By: #### 5 7021-8 ####[facility] CHARLOTTEJACOBA [id number] [place] [address] [place] Monocytes/100 WBC (Bld) 8.9 % Normal [facility] Comment on above: Order Comment: Speci men Type: BLOOD SPECIMENOrdering Facility: [facility] Address: [address] [place] [address] Performed By: #### 5 7021-8 ####[facility] CHARLOTTEANGIELIA [id number] [place] [address] [place] Neutrophils (Bld) [#/Vol] 1.73 10*3/uL Normal 1.45-7.50 [facility] Comment on above: Order Comment: Speci men Type: BLOOD SPECIMENOrdering Facility: [facility] Address: [address] [place] [address] Performed By: #### 5 7021-8 ####[facility] SPRINGFIELDLIA [id number] [place] [address] [place] Neutrophils/100 WBC (Bld) 51.3 % Normal [facility] Comment on above: Order Comment: Speci men Type: BLOOD SPECIMENOrdering Facility: [facility] Address: [address] [place] [address] Performed By: #### 5 7021-8 ####[facility] [id number] [place] [address] [place] Nucleated RBC (Bld) [#/Vol] 10*3/uL Normal <0.01 [facility] Comment on above: Order Comment: Speci men Type: BLOOD SPECIMENOrdering Facility: [facility] Address: [address] [place] [address] Performed By: #### 5 7021-8 ####[facility] [id number] [place] [address] [place] Nucleated RBC/100 WBC (Bld) [Ratio] 0.0 /100 WBC Normal [facility] Comment on above: Order Comment: Speci men Type: BLOOD SPECIMENOrdering Facility: [facility] Address: [address] [place] [address] Performed By: #### 5 7021-8 ####[facility] [id number] [place] [address] [place] Platelet mean volume (Bld) [Entitic vol] 9.1 fL Normal 9.0-12.7 [facility] Comment on above: Order Comment: Speci men Type: BLOOD SPECIMENOrdering Facility: [facility] Address: [address] [place] [address] Performed By: #### 5 7021-8 ####[facility] CHARLOTTENCLI [id number] [place] [address] [place] Platelets (Bld) [#/Vol] 209 10*3/uL Normal 150-400 [facility] Comment on above: Order Comment: Speci men Type: BLOOD SPECIMENOrdering Facility: [facility] Address: [facility] [place] [address] Performed By: #### 5 7021-8 ####[facility] CHARLOTTENCLIA [id number] [place] [address] [place] RBC (Bld) [#/Vol] 3.12 10*6/uL Low 3.90-5.20 [facility] Comment on above: Order Comment: Speci men Type: BLOOD SPECIMENOrdering Facility: [facility] Address: [address] [place] [address] Performed By: #### 5 7021-8 ####[facility] CHARLOTTENCLIA [id number] [place] [address] [place] WBC (Bld) [#/Vol] 3.37 10*3/uL Low 3.70-11.00 [facility] Comment on above: Order Comment: Speci men Type: BLOOD SPECIMENOrdering Facility: [facility] Address: [address] [place] [address] Performed By: #### 5 7021-8 ####[facility] CHARLOTTENCLIA [id number] [place] [address] [place] Comprehensive metabolic 2000 panelOrdered By: Meeta Lau on 04-06-2025 Albumin [Mass/Vol] 3.8 g/dL Low 3.9 - 4.9 g/dL [facility] ALP [Catalytic activity/Vol] 87 U/L 34 - 123 U/L [facility] ALT [Catalytic activity/Vol] 21 U/L 7 - 38 U/L [facility] Anion gap [Moles/Vol] 10 mmol/L 8 - 15 mmol/L [facility] AST [Catalytic activity/Vol] 16 U/L 13 - 35 U/L [facility] Bilirubin [Mass/Vol] 0.4 mg/dL 0.2 - 1 .3 mg/dL [facility] Calcium [Mass/Vol] 9.7 mg/dL 8.5 - 10. 2 mg/dL [facility] Chloride [Moles/Vol] 104 mmol/L 98 - 10 7 mmol/L [facility] CO2 [Moles/Vol] 26 mmol/L 22 - 30 mmol/L [facility] Creatinine [Mass/Vol] 0.67 mg/dL 0.58 - 0.96 mg/dL [facility] GFR/1.73 sq M.predicted among non-blacks MDRD (S/P/Bld) [Vol rate/Area] 94 mL/min/{1.73_m2} - PINF [facility] Comment on above: Estimated Glomerular Filtration [...] not accurately reflect actual GFR. Glucose [Mass/Vol] 142 mg/dL High 74 - 99 mg/dL [facility] Comment on above: The [place] [employer] (ADA) provides guidance for [...] Standards of Medical Care in Diabetes 2016, [place] [employer]. Diabetes Care. 2016.39(Suppl 1). Interpretation and review of laboratory results Abnormal [facility] Potassium [Moles/Vol] 4.1 mmol/L 3.7 - 5.1 mmol/L [facility] Protein [Mass/Vol] 6.2 g/dL Low 6.3 - 8.0 g/dL [facility] Sodium [Moles/Vol] 140 mmol/L 136 - 144 mmol/L [facility] Urea nitrogen [Mass/Vol] 16 mg/dL 7 - 21 mg/dL [facility] Comprehensive metabolic 2000 panelon 04-06-2025 Albumin [Mass/Vol] 3.8 g/dL Low 3.9-4.9 [facility] Comment on above: Order Comment: Speci men Type: BLOOD SPECIMENOrdering Facility: [facility] Address: [address] [place] [address] Performed By: #### 2 4323-8 ####[facility]ITALWNCLIA [id number] [place] [address] [place] ALP [Catalytic activity/Vol] 87 U/L Normal 34-123 [facility] Comment on above: Order Comment: Speci men Type: BLOOD SPECIMENOrdering Facility: [facility] Address: [address] [place] [address] Performed By: #### 2 4323-8 ####[facility] SPRINGFIELDLIA [id number] [place] [address] [place] ALT [Catalytic activity/Vol] 21 U/L Normal 7-38 [facility] Comment on above: Order Comment: Speci men Type: BLOOD SPECIMENOrdering Facility: [facility] Address: [address] [place] [address] Performed By: #### 2 4323-8 ####[facility]FIELDL[facility] [id number] [place] [address] [place] Anion gap [Moles/Vol] 10 mmol/L Normal 8-15 [facility] Comment on above: Order Comment: Speci men Type: BLOOD SPECIMENOrdering Facility: [facility] Address: [address] [place] [address] Performed By: #### 2 4323-8 ####[facility] RIDGEWNCLIA [id number] [place] [address] [place] AST [Catalytic activity/Vol] 16 U/L Normal 13-35 [facility] Comment on above: Order Comment: Speci men Type: BLOOD SPECIMENOrdering Facility: [facility] Address: [address] [place] [address] Performed By: #### 2 4323-8 ####[facility] ROSY MILLTOWNCLIA [id number] [place] [address] [place] Bilirubin [Mass/Vol] 0.4 mg/dL Normal 0.2-1.3 [facility] Comment on above: Order Comment: Speci men Type: BLOOD SPECIMENOrdering Facility: [facility] Address: [address] [place] [address] Performed By: #### 2 4323-8 ####[facility] MILLNATHANWNCLIA [id number] [place] [address] [place] Calcium [Mass/Vol] 9.7 mg/dL Normal 8.5-10.2 [facility] Comment on above: Order Comment: Speci men Type: BLOOD SPECIMENOrdering Facility: [facility] Address: [address] [place] [address] Performed By: #### 2 4323-8 ####[facility] MILLTOWNCLIA [id number] [place] [address] [place] Chloride [Moles/Vol] 104 mmol/L Normal 98-107 [facility] Comment on above: Order Comment: Speci men Type: BLOOD SPECIMENOrdering Facility: [facility] Address: [address] [place] [address] Performed By: #### 2 4323-8 ####[facility] ROSY MILLTOWNCLIA [id number] [place] [address] [place] CO2 [Moles/Vol] 26 mmol/L Normal 22-30 [facility] Comment on above: Order Comment: Speci men Type: BLOOD SPECIMENOrdering Facility: [facility] Address: [address] [place] [address] Performed By: #### 2 4323-8 ####[facility] [id number] [place] [address] [place] Creatinine [Mass/Vol] 0.67 mg/dL Normal 0.58-0.96 [facility] Comment on above: Order Comment: Cam silva Type: BLOOD SPECIMENOrdering Facility: [facility] Address: [address] [place] [address] Performed By: #### 2 4323-8 ####[facility] [id number] [place] [address] [place] eGFRcr SerPlBld CKD-EPI 2020 94 mL/min/1.73m??? Normal >=60 [facility] Comment on above: Order Comment: Cam silva Type: BLOOD SPECIMENOrdering Facility: [facility] Address: [address] [place] [address] Result Comment: Coco mated Glomerular Filtration Rate [...] actual GFR. Performed By: #### 2 4323-8 ####[facility] [id number] [place] [address] [place] Glucose [Mass/Vol] 142 mg/dL High 74-99 [facility] Comment on above: Order Comment: Cam silva Type: BLOOD SPECIMENOrdering Facility: [facility] Address: [address] [place] [address] Result Comment: The [place] Diabetes Association (ADA) provides guidance for cutoff [...] Standards of Medical Care in Diabetes 2016, [place] Diabetes Association. Diabetes Care. 2016.39(Suppl 1). Performed By: #### 2 4323-8 ####[facility]DL[facility] [id number] [place] [address] [place] Potassium [Moles/Vol] 4.1 mmol/L Normal 3.7-5.1 [facility] Comment on above: Order Comment: Speci men Type: BLOOD SPECIMENOrdering Facility: [facility] Address: [address] [place] [address] Performed By: #### 2 4323-8 ####[facility] [id number] [place] [address] [place] Protein [Mass/Vol] 6.2 g/dL Low 6.3-8.0 [facility] Comment on above: Order Comment: Speci men Type: BLOOD SPECIMENOrdering Facility: [facility] Address: [address] [place], [place] [address] Performed By: #### 2 4323-8 ####[facility] [id number] [place] [address] [place] Sodium [Moles/Vol] 140 mmol/L Normal 136-144 [facility] Comment on above: Order Comment: Speci men Type: BLOOD SPECIMENOrdering Facility: [facility] Address: [address] [place] [address] Performed By: #### 2 4323-8 ####[facility] [id number] [place] [address] [place] Urea nitrogen [Mass/Vol] 16 mg/dL Normal 7-21 [facility] Comment on above: Order Comment: Speci men Type: BLOOD SPECIMENOrdering Facility: [facility] Address: [address] [place] [address] Performed By: #### 2 4323-8 ####[facility] ROSY CORONADONEW OXFORDHAYDEN [id number] [place] [address] [place] CBC W Auto Differential pane l (Bld)on 03-30-2025 Anisocytosis Ql (Bld) Present [facility] Basophils (Bld) [#/Vol] 0.00 10*3/uL BANNERF [facility] Basophils/100 WBC (Bld) 0.0 % [facility] Dacrocytes LM Ql (Bld) Few Cl [facility] Differential cell count method Nom (Bld) Manual [facility] Eosinophils (Bld) [#/Vol] 0.20 10*3/uL BANNERF [facility] Eosinophils/100 WBC (Bld) 3.0 % [facility] Erythrocyte distribution width (RBC) [Ratio] 16.3 % High 11.5 - 15.0 % [facility] Hematocrit (Bld) [Volume fraction] 35.1 % Low 36.0 - 46.0 % [facility] Hemoglobin (Bld) [Mass/Vol] 12.1 g/dL 11.5 - 15.5 g/dL [facility] Interpretation and review of laboratory results Abnormal [facility] Lymphocytes (Bld) [#/Vol] 1.97 10*3/uL [facility] Lymphocytes/100 WBC (Bld) 30.0 % [facility] MCH (RBC) [Entitic mass] 35.2 pg High 26.0 - 34.[address] [facility] MCHC (RBC) [Mass/Vol] 34.5 g/dL 30.5 - 36.0 g/dL [facility] MCV (RBC) [Entitic vol] 102.0 fL High 80.0 - 100.[address] [facility] Monocytes (Bld) [#/Vol] 0.66 10*3/uL BANNERF [facility] Monocytes/100 WBC (Bld) 10.0 % [facility] Myelo % 4.0 % [facility] Neutrophils (Bld) [#/Vol] 3.49 10*3/uL [facility] Neutrophils/100 WBC (Bld) 53.0 % [facility] Nucleated RBC (Bld) [#/Vol] BANNERF [facility] Nucleated RBC/100 WBC (Bld) [Ratio] 0.0 % /[address] [facility] Ovalocytes LM Ql (Bld) Few Cl [facility] Platelet mean volume (Bld) [Entitic vol] 9.1 fL 9.0 - 12.[address] [facility] Platelets (Bld) [#/Vol] 171 10*3/uL [facility] Platelets Estimate (Bld) [#/Vol] Adequate [facility] Polychromasia LM Ql (Bld) Slight [facility] RBC (Bld) [#/Vol] 3.44 10*6/uL Low 3.90 - 5.2 0 m/uL [facility] Red Cell Morph Reviewed: see result s of individual morphologies [facility] WBC (Bld) [#/Vol] 6.58 10*3/uL [facility] WBC Left Shift Ql (Bld) Present [facility] This is an appended report. These results have been appended to a previously verified report. [facility] Anisocytosis Ql (Bld) Present Normal [facility] Comment on above: Order Comment: Speci men Type: BLOOD SPECIMENOrdering Facility: [facility] Address: [address] [place] [address] Performed By: #### 5 7021-8 ####[facility] [id number] [address] LABORATORYCLIA [id number] [place] [address] [place] [facility] Basophils (Bld) [#/Vol] 0.00 10*3/uL Normal <0.11 [facility] Comment on above: Order Comment: Speci men Type: BLOOD SPECIMENOrdering Facility: [facility] Address: [address] [place] [address] Performed By: #### 5 7021-8 ####[facility] [id number] [address] LABORATORYCLIA [id number] [place] [address] [place] Basophils/100 WBC (Bld) 0.0 % Normal [facility] Comment on above: Order Comment: Speci men Type: BLOOD SPECIMENOrdering Facility: [facility] Address: [address] [place] [address] Performed By: #### 5 7021-8 ####[facility] MILLTOWNCLIA [id number] [address] LABORATORYCLIA [id number] [place] [address] [place] Dacrocytes LM Ql (Bld) Few Normal Cl [facility] Comment on above: Order Comment: Speci men Type: BLOOD SPECIMENOrdering Facility: [facility] Address: [address] [place] [address] Performed By: #### 5 7021-8 ####[facility] [id number] [address] LABORATORYCLIA [id number] [address] STATES [facility] Differential cell count method Nom (Bld) Manual Normal [facility] Comment on above: Order Comment: Speci men Type: BLOOD SPECIMENOrdering Facility: [facility] Address: [address] [place] [address] Performed By: #### 5 7021-8 ####[facility]IDGEWNCLIA [id number] [address] LABORATORYCLIA [id number] [place] [address] [place] Eosinophils (Bld) [#/Vol] 0.20 10*3/uL Normal <0.46 [facility] Comment on above: Order Comment: Speci men Type: BLOOD SPECIMENOrdering Facility: [facility] Address: [address] [place] [address] Performed By: #### 5 7021-8 ####[facility] RIDGEWNCLIA [id number] [address] LABORATORYCLIA [id number] [place] [address] [place] Eosinophils/100 WBC (Bld) 3.0 % Normal [facility] Comment on above: Order Comment: Speci men Type: BLOOD SPECIMENOrdering Facility: [facility] Address: [address] [place] [address] Performed By: #### 5 7021-8 ####[facility] RIDGEWNCLIA [id number] [address] LABORATORYIA [id number] [place] [address] [place] Erythrocyte distribution width (RBC) [Ratio] 16.3 % High 11.5-15.0 [facility] Comment on above: Order Comment: Speci men Type: BLOOD SPECIMENOrdering Facility: [facility] Address: [address] [place] [address] Performed By: #### 5 7021-8 ####[facility]ELDL[facility] [id number] [address] LABORATORYCLIA [id number] [place] [address] [place] Hematocrit (Bld) [Volume fraction] 35.1 % Low 36.0-46.0 [facility] Comment on above: Order Comment: Speci men Type: BLOOD SPECIMENOrdering Facility: [facility] Address: [address] [place] [address] Performed By: #### 5 7021-8 ####[facility] RIDGEWNCLIA [id number] [address] LABORATORYCLIA [id number] [place] [address] [place] Hemoglobin (Bld) [Mass/Vol] 12.1 g/dL Normal 11.5-15.5 [facility] Comment on above: Order Comment: Speci men Type: BLOOD SPECIMENOrdering Facility: [facility] Address: [address] [place] [address] Performed By: #### 5 7021-8 ####[facility]ERTOWNCLIA [id number] [address] LABORATORYCLIA [id number] [place] [address] [place] Lymphocytes (Bld) [#/Vol] 1.97 10*3/uL Normal 1.00-4.00 [facility] Comment on above: Order Comment: Speci men Type: BLOOD SPECIMENOrdering Facility: [facility] Address: [address] [place] [address] Performed By: #### 5 7021-8 ####[facility]ELDL[facility] [id number] [address] LABORATORYCLIA [id number] [place] [address] [place] Lymphocytes/100 WBC (Bld) 30.0 % Normal [facility] Comment on above: Order Comment: Speci men Type: BLOOD SPECIMENOrdering Facility: [facility] Address: [address] [place] [address] Performed By: #### 5 7021-8 ####[facility] [id number] [address] LABORATORYCLIA [id number] [place] [address] [place] MCH (RBC) [Entitic mass] 35.2 pg High 26.0-34.0 [facility] Comment on above: Order Comment: Speci men Type: BLOOD SPECIMENOrdering Facility: [facility] Address: [address] [place] [address] Performed By: #### 5 7021-8 ####[facility] MILLTOWNCLIA [id number] [address] LABORATORYCLIA [id number] [address] MCHC (RBC) [Mass/Vol] 34.5 g/dL Normal 30.5-36.0 [facility] Comment on above: Order Comment: Speci men Type: BLOOD SPECIMENOrdering Facility: [facility] Address: [address] [place] [address] Performed By: #### 5 7021-8 ####[facility] CHARLOTTENCLIA [id number] [address] LABORATORYCLIA [id number] [address] MCV (RBC) [Entitic vol] 102.0 fL High 80.0-100.0 [facility] Comment on above: Order Comment: Speci men Type: BLOOD SPECIMENOrdering Facility: [facility] Address: [address] [place] [address] Performed By: #### 5 7021-8 ####[facility] RIDGEWNCLIA [id number] [address] LABORATORYCLIA [id number] [address] Monocytes (Bld) [#/Vol] 0.66 10*3/uL Normal <0.87 [facility] Comment on above: Order Comment: Speci men Type: BLOOD SPECIMENOrdering Facility: [facility] Address: [address] [place] [address] Performed By: #### 5 7021-8 ####[facility] MILLTOWNCLIA [id number] [address] [facility] LABORATORYCLIA [id number] [place] [address] [place] Monocytes/100 WBC (Bld) 10.0 % Normal [facility] Comment on above: Order Comment: Speci men Type: BLOOD SPECIMENOrdering Facility: [facility] Address: [address] [place] [address] Performed By: #### 5 7021-8 ####[facility] MILLTOWNCLIA [id number] [address] LABORATORYCLIA [id number] [place] [address] [place] MYELO% 4.0 % Normal [facility] Comment on above: Order Comment: Speci men Type: BLOOD SPECIMENOrdering Facility: [facility] Address: [address] [place] [address] Performed By: #### 5 7021-8 ####[facility] RIDGEWNCLIA [id number] [address] LABORATORYCLIA [id number] [place] [address] [place] Neutrophils (Bld) [#/Vol] 3.49 10*3/uL Normal 1.45-7.50 [facility] Comment on above: Order Comment: Speci men Type: BLOOD SPECIMENOrdering Facility: [facility] Address: [address] [place] [address] Performed By: #### 5 7021-8 ####[facility] MILLTOWNCLIA [id number] [address] LABORATORYCLIA [id number] [place] [address] [place] Neutrophils/100 WBC (Bld) 53.0 % Normal [facility] Comment on above: Order Comment: Speci men Type: BLOOD SPECIMENOrdering Facility: [facility] Address: [address] [place] [address] Performed By: #### 5 7021-8 ####[facility] RIDGEWNCLIA [id number] [address] LABORATORYCLIA [id number] [address] [place] Nucleated RBC (Bld) [#/Vol] 10*3/uL Normal <0.01 [facility] Comment on above: Order Comment: Speci men Type: BLOOD SPECIMENOrdering Facility: [facility] Address: [address] [place] [address] Performed By: #### 5 7021-8 ####[facility] [id number] [address] LABORATORYCLIA [id number] [place] [address] [place] Nucleated RBC/100 WBC (Bld) [Ratio] 0.0 /100 WBC Normal [facility] Comment on above: Order Comment: Speci men Type: BLOOD SPECIMENOrdering Facility: [facility] Address: [address] [place] [address] Performed By: #### 5 7021-8 ####[facility] CHARLOTTENCA [id number] [address] LABORATORYCLIA [id number] [place] [address] [place] Ovalocytes LM Ql (Bld) Few Normal [facility] Comment on above: Order Comment: Speci men Type: BLOOD SPECIMENOrdering Facility: [facility] Address: [facility] [place] [id number] Performed By: #### 5 7021-8 ####[facility] RIDGEWNCLIA [id number] [address] LABORATORYCLIA [id number] [place] [address] [place] Platelet mean volume (Bld) [Entitic vol] 9.1 fL Normal 9.0-12.7 [facility] Comment on above: Order Comment: Speci men Type: BLOOD SPECIMENOrdering Facility: [facility] Address: [address] [place] [address] Performed By: #### 5 7021-8 ####[facility] MILLWNCLIA [id number] [address] LABORATORYIA [id number] [place] [address] [place] Platelets (Bld) [#/Vol] 171 10*3/uL Normal 150-400 [facility] Comment on above: Order Comment: Speci men Type: BLOOD SPECIMENOrdering Facility: [facility] Address: [address] [place] [address] Performed By: #### 5 7021-8 ####[facility] RIDGEWNCLIA [id number] [address] LABORATORYCLIA [id number] [place] [address] [place] Platelets Estimate (Bld) [#/Vol] Adequate Normal [facility] Comment on above: Order Comment: Speci men Type: BLOOD SPECIMENOrdering Facility: [facility] Address: [address] [place] [address] Performed By: #### 5 7021-8 ####[facility] MILLWNCLIA [id number] [address] LABORATORYCLIA [id number] [place] [address] [place] Polychromasia LM Ql (Bld) Slight Normal [facility] Comment on above: Order Comment: Speci men Type: BLOOD SPECIMENOrdering Facility: [facility] Address: [address] [place] [address] Performed By: #### 5 7021-8 ####[facility] VALERIANOWNCLIA [id number] [address] LABORATORYCLIA [id number] [place] [address] [place] RBC (Bld) [#/Vol] 3.44 10*6/uL Low 3.90-5.20 [facility] Comment on above: Order Comment: Speci men Type: BLOOD SPECIMENOrdering Facility: [facility] Address: [address] [place] [address] Performed By: #### 5 7021-8 ####[facility] CHARLOTTENCLIA [id number] [address] LABORATORYCLIA [id number] [place] [address] [place] RED CELL MORPH Reviewed: see result s of individual morphologies Normal [facility] Comment on above: Order Comment: Speci men Type: BLOOD SPECIMENOrdering Facility: [facility] Address: [address] [place] [address] Performed By: #### 5 7021-8 ####[facility] RIDGEWNCLIA [id number] [address] LABORATORYCLIA [id number] [place] [address] [place] WBC (Bld) [#/Vol] 6.58 10*3/uL Normal 3.70-11.00 [facility] Comment on above: Order Comment: Speci men Type: BLOOD SPECIMENOrdering Facility: [facility] Address: [address] [place] [address] Performed By: #### 5 7021-8 ####[facility] CHARLOTTENCLIA [id number] [address] LABORATORYCLIA [id number] [address] STATES OF [facility] WBC Left Shift Ql (Bld) Present Normal [facility] Comment on above: Order Comment: Speci men Type: BLOOD SPECIMENOrdering Facility: [facility] Address: [facility] [place] [address] Performed By: #### 5 7021-8 ####[facility] [id number] [address] LABORATORYCLIA [id number] [place] [address] [place] CORTISOL, SERUMon 03-30-2025 Cortisol [Mass/Vol] 9.9 ug/dL 4.8 - 19 .5 ug/dL [facility] Comment on above: Provided reference r cristian is from 6-10 AM sample collection time. Cortisol Reference Range: 6-10 AM = 4.8-19.5 ug/dL, 4-8 PM = 2.5-11.9 ug/dL Comprehensive metabolic 2000 panelOrdered By: Meeta Lau on 03-30-2025 Albumin [Mass/Vol] 4.2 g/dL 3.9 - 4.9 g/dL [facility] ALP [Catalytic activity/Vol] 91 U/L 34 - 123 U/L [facility] ALT [Catalytic activity/Vol] 26 U/L 7 - 38 U/L [facility] Anion gap [Moles/Vol] 10 mmol/L 8 - 15 mmol/L [facility] AST [Catalytic activity/Vol] 21 U/L 13 - 35 U/L [facility] Bilirubin [Mass/Vol] 0.5 mg/dL 0.2 - 1 .3 mg/dL [facility] Calcium [Mass/Vol] 9.9 mg/dL 8.5 - 10. 2 mg/dL [facility] Chloride [Moles/Vol] 105 mmol/L 98 - 10 7 mmol/L [facility] CO2 [Moles/Vol] 23 mmol/L 22 - 30 mmol/L [facility] Creatinine [Mass/Vol] 0.69 mg/dL 0.58 - 0.96 mg/dL [facility] GFR/1.73 sq M.predicted among non-blacks MDRD (S/P/Bld) [Vol rate/Area] 93 mL/min/{1.73_m2} - PINF [facility] Comment on above: Estimated Glomerular Filtration [...] not accurately reflect actual GFR. Glucose [Mass/Vol] 143 mg/dL High 74 - 99 mg/dL [facility] Comment on above: The [place] Di[employer] Association (ADA) provides guidance for [...] Standards of Medical Care in Diabetes 2016, [place] [employer]. Diabetes Care. 2016.39(Suppl 1). Interpretation and review of laboratory results Abnormal [facility] Potassium [Moles/Vol] 4.2 mmol/L 3.7 - 5.1 mmol/L [facility] Protein [Mass/Vol] 7.0 g/dL 6.3 - 8.0 g/dL [facility] Sodium [Moles/Vol] 138 mmol/L 136 - 144 mmol/L [facility] Urea nitrogen [Mass/Vol] 16 mg/dL 7 - 21 mg/dL [facility] Comprehensive metabolic 2000 panelon 03-30-2025 Albumin [Mass/Vol] 4.2 g/dL Normal 3.9-4.9 [facility] Comment on above: Order Comment: Speci men Type: BLOOD SPECIMENOrdering Facility: [facility] Address: [facility] [place] [address] Performed By: #### 2 4323-8, ####[facility] ROS[facility] MILLTOWNCLIA [id number] [place] [address] [place] ALP [Catalytic activity/Vol] 91 U/L Normal 34-123 [facility] Comment on above: Order Comment: Speci men Type: BLOOD SPECIMENOrdering Facility: [facility] Address: [address] [place] [address] Performed By: #### 2 4323-8, ####[facility] MILLTOWNCLIA [id number] [place] [address] [place] ALT [Catalytic activity/Vol] 26 U/L Normal 7-38 [facility] [place] [facility] Comment on above: Order Comment: Speci men Type: BLOOD SPECIMENOrdering Facility: [facility] Address: [address] [place] [address] Performed By: #### 2 4323-8, ####[facility] CHARLOTTENCLIA [id number] [place] [address] [place] Anion gap [Moles/Vol] 10 mmol/L Normal 8-15 [facility] Comment on above: Order Comment: Speci men Type: BLOOD SPECIMENOrdering Facility: [facility] Address: [address] [place] [address] Performed By: #### 2 4323-8, ####[facility] MILLTOWNCLIA [id number] [place] [address] [place] AST [Catalytic activity/Vol] 21 U/L Normal 13-35 [facility] Comment on above: Order Comment: Speci men Type: BLOOD SPECIMENOrdering Facility: [facility] Address: [address] [place] [address] Performed By: #### 2 4323-8, 61530-3 ####[facility] RIDGEWNCLIA [id number] [place] [id number] [place] Bilirubin [Mass/Vol] 0.5 mg/dL Normal 0.2-1.3 [facility] Comment on above: Order Comment: Speci men Type: BLOOD SPECIMENOrdering Facility: [facility] Address: [address] [place] [address] Performed By: #### 2 4323-8, 65428-1 ####[facility] MILLTOWANGIELIA [id number] [place] [address] [place] Calcium [Mass/Vol] 9.9 mg/dL Normal 8.5-10.2 [facility] Comment on above: Order Comment: Speci men Type: BLOOD SPECIMENOrdering Facility: [facility] Address: [address] [place] [address] Performed By: #### 2 4323-8, 59341-8 ####[facility] PINE RIDGEWANGIELIA [id number] [place] [address] [place] Chloride [Moles/Vol] 105 mmol/L Normal 98-107 [facility] Comment on above: Order Comment: Speci men Type: BLOOD SPECIMENOrdering Facility: [facility] Address: [address] [place] [address] Performed By: #### 2 4323-8, ####[facility] P[facility] RIDGEWHAYDEN [id number] [place] [address] [place] CO2 [Moles/Vol] 23 mmol/L Normal 22-30 [facility] Comment on above: Order Comment: Speci men Type: BLOOD SPECIMENOrdering Facility: [facility] Address: [address] [place] [address] Performed By: #### 2 4323-8, ####[facility] MILLTOWNCLIA [id number] [place] [address] [place] Creatinine [Mass/Vol] 0.69 mg/dL Normal 0.58-0.96 [facility] Comment on above: Order Comment: Cam silva Type: BLOOD SPECIMENOrdering Facility: [facility] Address: [address] [place] [address] Performed By: #### 2 4323-8, ####[facility] [id number] [place] [address] [place] eGFRcr SerPlBld CKD-EPI 2020 93 mL/min/1.73m??? Normal >=60 [facility] Comment on above: Order Comment: Cam silva Type: BLOOD SPECIMENOrdering Facility: [facility] Address: [address] [place] [address] Result Comment: Coco mated Glomerular Filtration Rate [...] actual GFR. Performed By: #### 2 4323-8, ####[facility] [id number] [place] [address] [place] Glucose [Mass/Vol] 143 mg/dL High 74-99 [facility] Comment on above: Order Comment: Cam silva Type: BLOOD SPECIMENOrdering Facility: [facility] Address: [address] [place] [address] Result Comment: The [place] Diabetes Association (ADA) provides guidance for cutoff [...] Standards of Medical Care in Diabetes 2016, [place] [employer]. Diabetes Care. 2016.39(Suppl 1). Performed By: #### 2 4323-8, 88358-5 ####[facility] ROSY CORONADONATHANWNCSANCHEZA [id number] [place] [address] [place] Potassium [Moles/Vol] 4.2 mmol/L Normal 3.7-5.1 [facility] Comment on above: Order Comment: Speci men Type: BLOOD SPECIMENOrdering Facility: [facility] Address: [address] [place] [address] Performed By: #### 2 4323-8, 68870-5 ####[facility] CHARLOTTENCSANCHEZA [id number] [place] [address] [place] Protein [Mass/Vol] 7.0 g/dL Normal 6.3-8.0 [facility] Comment on above: Order Comment: Speci men Type: BLOOD SPECIMENOrdering Facility: [facility] Address: [address] [place] [address] Performed By: #### 2 4323-8, 41355-4 ####[facility] CHARLOTTEJACOBA [id number] [place] [address] [place] Sodium [Moles/Vol] 138 mmol/L Normal 136-144 [facility] Comment on above: Order Comment: Speci men Type: BLOOD SPECIMENOrdering Facility: [facility] Address: [address] [place] [address] Performed By: #### 2 4323-8, ####[facility] P[facility] RIDGEWNCLIA [id number] [place] [address] [place] Urea nitrogen [Mass/Vol] 16 mg/dL Normal 7-21 [facility] Comment on above: Order Comment: Speci men Type: BLOOD SPECIMENOrdering Facility: [facility] Address: [address] [place] [id number] Performed By: #### 2 4323-8, 19209-5 ####[facility] ROSY MILLTOWNCLIA [id number] [place] [address] [place] Cortis SerPl-mCncon 03-30-20 Cortisol [Mass/Vol] 9.9 ug/dL Normal 4.8-19.5 [facility] Comment on above: Order Comment: Speci men Type: BLOOD SPECIMENOrdering Facility: [facility] Address: [address] [place], [place] [address] [address] Result Comment: Prov ided reference range is from 6-10 AM sample collection time.Cortisol Reference Range: 6-10 AM = 4.8-19.5 ug/dL, 4-8 PM = 2.5-11.9 ug/dL Performed By: #### 3 024-7, 3016-3, 2143-6 ####[facility] LABCLIA [id number] [place] [address] [place] MAGNESIUMon 03-30-2025 Magnesium [Mass/Vol] 2.2 mg/dL 1.7 - 2 .3 mg/dL [facility] Magnesium SerPl-mCncon 03-30 Magnesium [Mass/Vol] 2.2 mg/dL Normal 1.7-2.3 [facility] Comment on above: Order Comment: Speci men Type: BLOOD SPECIMENOrdering Facility: [facility] Address: [address] [place] [address] Performed By: #### 2 4323-8, 93680-1 ####[facility] ROSY MILLTOWNCLIA [id number] [place] [address] [place] Magnesium [Mass/Vol]on 03-30 Interpretation and review of laboratory results Normal [facility] No Panel Informationon 03-30 Interpretation and review of laboratory results Normal [facility] No Panel InformationOrdered By: Meeta Lau on 03-30-[address] [facility] T4 FREE/FREE THYROXINEon Free T4 [Mass/Vol] 1.5 ng/dL 0.9 - 1.7 ng/dL [facility] T4 Free SerPl-mCncon 025 Free T4 [Mass/Vol] 1.5 ng/dL Normal 0.9-1.7 [facility] Comment on above: Order Comment: Speci men Type: BLOOD SPECIMENOrdering Facility: [facility] Address: [address] [place] [address] Performed By: #### 3 024-7, 3016-3, 2143-01 ####[facility] LABCLIA [id number] [place] [address] [place] THYROID STIMULATING HORMONEo n 03-30-2025 TSH Qn 0.732 m[IU]/L [facility] TSH SerPl-aCncon 03-30-2025 TSH Qn 0.732 m[IU]/L Normal 0.270-4.200 [facility] Comment on above: Order Comment: Speci men Type: BLOOD SPECIMENOrdering Facility: [facility] Address: [address] [place] [address] Performed By: #### 3 024-7, 3015-3, 2143-01 ####[facility] LABCLIA [id number] [place] [address] [place] CNOVon 03-25-2025 CNOV Normal [facility] CBC W Auto Differential pane l (Bld)on 03-23-2025 Basophils (Bld) [#/Vol] NINF [facility] Basophils/100 WBC (Bld) 0.8 % [facility] Differential cell count method Nom (Bld) Auto [facility] Eosinophils (Bld) [#/Vol] NINF [facility] Eosinophils/100 WBC (Bld) 0.4 % [facility] Erythrocyte distribution width (RBC) [Ratio] 16.0 % High 11.5 - 15.0 % [facility] Hematocrit (Bld) [Volume fraction] 32.3 % Low 36.0 - 46.0 % [facility] Hemoglobin (Bld) [Mass/Vol] 11.2 g/dL Low 11.5 - 15.5 g/dL [facility] Immature granulocytes (Bld) [#/Vol] NINF [facility] Immature granulocytes/100 WBC (Bld) 0.8 % [facility] Interpretation and review of laboratory results Abnormal [facility] Lymphocytes (Bld) [#/Vol] 1.30 10*3/uL [facility] Lymphocytes/100 WBC (Bld) 51.4 % [facility] MCH (RBC) [Entitic mass] 35.1 pg High 26.0 - 34.[address] [facility] MCHC (RBC) [Mass/Vol] 34.7 g/dL 30.5 - 36.0 g/dL [facility] MCV (RBC) [Entitic vol] 101.3 fL High 80.0 - 100.[address] [facility] Monocytes (Bld) [#/Vol] 0.37 10*3/uL [facility] Monocytes/100 WBC (Bld) 14.6 % [facility] Neutrophils (Bld) [#/Vol] 0.81 10*3/uL Low [facility] Neutrophils/100 WBC (Bld) 32.0 % [facility] Nucleated RBC (Bld) [#/Vol] BANNERF [facility] Nucleated RBC/100 WBC (Bld) [Ratio] 0.0 % /[address] [facility] Platelet mean volume (Bld) [Entitic vol] 8.2 fL Low 9.0 - 12.[address] [facility] Platelets (Bld) [#/Vol] 150 10*3/uL [facility] RBC (Bld) [#/Vol] 3.19 10*6/uL Low 3.90 - 5.2 0 m/uL [facility] WBC (Bld) [#/Vol] 2.53 10*3/uL Low [facility] Basophils (Bld) [#/Vol] 10*3/uL Normal <0.11 [facility] Comment on above: Order Comment: Speci men Type: BLOOD SPECIMENOrdering Facility: [facility] Address: [address] [place] [address] Performed By: #### 5 7021-8 ####[facility] ROSYMERCY [facility] – TISHOMINGOSUZY [id number] [place] [address] [place] Basophils/100 WBC (Bld) 0.8 % Normal [facility] Comment on above: Order Comment: Speci men Type: BLOOD SPECIMENOrdering Facility: [facility] Address: [address] [place] [address] Performed By: #### 5 7021-8 ####[facility] CHARLOTTENCLIA [id number] [place] [address] [place] Differential cell count method Nom (Bld) Auto Normal [facility] Comment on above: Order Comment: Speci men Type: BLOOD SPECIMENOrdering Facility: [facility] Address: [address] [place] [address] Performed By: #### 5 7021-8 ####[facility] [id number] [place] [address] [place] Eosinophils (Bld) [#/Vol] 10*3/uL Normal <0.46 [facility] Comment on above: Order Comment: Speci men Type: BLOOD SPECIMENOrdering Facility: [facility] Address: [address] [place] [address] Performed By: #### 5 7021-8 ####[facility] HOSPITALA [id number] [place] [address] [place] Eosinophils/100 WBC (Bld) 0.4 % Normal [facility] Comment on above: Order Comment: Speci men Type: BLOOD SPECIMENOrdering Facility: [facility] Address: [address] [place] [address] Performed By: #### 5 7021-8 ####[facility] CHARLOTTENCA [id number] [place] [address] [place] Erythrocyte distribution width (RBC) [Ratio] 16.0 % High 11.5-15.0 [facility] Comment on above: Order Comment: Speci men Type: BLOOD SPECIMENOrdering Facility: [facility] Address: [address] [place] [address] Performed By: #### 5 7021-8 ####[facility] IVONNENEW OXFORDNCLIA [id number] [place] [address] [place] Hematocrit (Bld) [Volume fraction] 32.3 % Low 36.0-46.0 [facility] Comment on above: Order Comment: Speci men Type: BLOOD SPECIMENOrdering Facility: [facility] Address: [address] [place] [address] Performed By: #### 5 7021-8 ####[facility] SPRINGFIELDLIA [id number] [place] [address] [place] Hemoglobin (Bld) [Mass/Vol] 11.2 g/dL Low 11.5-15.5 [facility] Comment on above: Order Comment: Speci men Type: BLOOD SPECIMENOrdering Facility: [facility] Address: [address] [place] [address] Performed By: #### 5 7021-8 ####[facility] HOSPITALA [id number] [place] [address] [place] Immature granulocytes (Bld) [#/Vol] 10*3/uL Normal <0.10 [facility] Comment on above: Order Comment: Speci men Type: BLOOD SPECIMENOrdering Facility: [facility] Address: [address] [place] [address] Performed By: #### 5 7021-8 ####[facility] SPRINGFIELDLIA [id number] [place] [address] [place] Immature granulocytes/100 WBC (Bld) 0.8 % Normal [facility] Comment on above: Order Comment: Speci men Type: BLOOD SPECIMENOrdering Facility: [facility] Address: [address] [place] [address] Performed By: #### 5 7021-8 ####[facility] SPRINGFIELDLIA [id number] [place] [address] [place] Lymphocytes (Bld) [#/Vol] 1.30 10*3/uL Normal 1.00-4.00 [facility] Comment on above: Order Comment: Speci men Type: BLOOD SPECIMENOrdering Facility: [facility] Address: [address] [place] [address] Performed By: #### 5 7021-8 ####[facility] [id number] [place] [address] [place] Lymphocytes/100 WBC (Bld) 51.4 % Normal [facility] Comment on above: Order Comment: Speci men Type: BLOOD SPECIMENOrdering Facility: [facility] Address: [address] [place] [address] Performed By: #### 5 7021-8 ####[facility] [id number] [place] [address] [place] MCH (RBC) [Entitic mass] 35.1 pg High 26.0-34.0 [facility] Comment on above: Order Comment: Speci men Type: BLOOD SPECIMENOrdering Facility: [facility] Address: [address] [place] [address] Performed By: #### 5 7021-8 ####[facility] CHARLOTTENCLI [id number] [place] [address] [place] MCHC (RBC) [Mass/Vol] 34.7 g/dL Normal 30.5-36.0 [facility] Comment on above: Order Comment: Speci men Type: BLOOD SPECIMENOrdering Facility: [facility] Address: [address] [place] [address] Performed By: #### 5 7021-8 ####[facility] CHARLOTTENCLI [id number] [place] [address] [place] MCV (RBC) [Entitic vol] 101.3 fL High 80.0-100.0 [facility] Comment on above: Order Comment: Speci men Type: BLOOD SPECIMENOrdering Facility: [facility] Address: [address] [place] [address] Performed By: #### 5 7021-8 ####[facility] IVONNEADRIANNE [id number] [place] [address] [place] Monocytes (Bld) [#/Vol] 0.37 10*3/uL Normal <0.87 [facility] Comment on above: Order Comment: Speci men Type: BLOOD SPECIMENOrdering Facility: [facility] Address: [address] [place] [address] Performed By: #### 5 7021-8 ####[facility]TEANGIECEDAR CITY [facility] [id number] [place] [address] [place] Monocytes/100 WBC (Bld) 14.6 % Normal [facility] Comment on above: Order Comment: Speci men Type: BLOOD SPECIMENOrdering Facility: [facility] Address: [address] [place] [address] Performed By: #### 5 7021-8 ####[facility] [id number] [place] [address] [place] Neutrophils (Bld) [#/Vol] 0.81 10*3/uL Low 1.45-7.50 [facility] Comment on above: Order Comment: Speci men Type: BLOOD SPECIMENOrdering Facility: [facility] Address: [address] [place] [address] Performed By: #### 5 7021-8 ####[facility] [id number] [place] [address] [place] Neutrophils/100 WBC (Bld) 32.0 % Normal [facility] Comment on above: Order Comment: Speci men Type: BLOOD SPECIMENOrdering Facility: [facility] Address: [address] [place] [address] Performed By: #### 5 7021-8 ####[facility] CHARLOTTENCLIA [id number] [place] [address] [place] Nucleated RBC (Bld) [#/Vol] 10*3/uL Normal <0.01 [facility] Comment on above: Order Comment: Speci men Type: BLOOD SPECIMENOrdering Facility: [facility] Address: [address] [place] [address] Performed By: #### 5 7021-8 ####[facility] [id number] [place] [address] [place] Nucleated RBC/100 WBC (Bld) [Ratio] 0.0 /100 WBC Normal [facility] Comment on above: Order Comment: Speci men Type: BLOOD SPECIMENOrdering Facility: [facility] Address: [address] [place] [address] Performed By: #### 5 7021-8 ####[facility] [id number] [place] [address] [place] Platelet mean volume (Bld) [Entitic vol] 8.2 fL Low 9.0-12.7 [facility] Comment on above: Order Comment: Speci men Type: BLOOD SPECIMENOrdering Facility: [facility] Address: [address] [place] [address] Performed By: #### 5 7021-8 ####[facility] SPRINGFIELDLI [id number] [place] [address] [place] Platelets (Bld) [#/Vol] 150 10*3/uL Normal 150-400 [facility] Comment on above: Order Comment: Speci men Type: BLOOD SPECIMENOrdering Facility: [facility] Address: [address] [place] [address] Performed By: #### 5 7021-8 ####[facility] [id number] [place] [address] [place] RBC (Bld) [#/Vol] 3.19 10*6/uL Low 3.90-5.20 [facility] Comment on above: Order Comment: Speci men Type: BLOOD SPECIMENOrdering Facility: [facility] Address: [address] [place] [address] Performed By: #### 5 7021-8 ####[facility] [id number] [place] [address] [place] WBC (Bld) [#/Vol] 2.53 10*3/uL Low 3.70-11.00 [facility] Comment on above: Order Comment: Speci men Type: BLOOD SPECIMENOrdering Facility: [facility] Address: [address] [place] [address] Performed By: #### 5 7021-8 ####[facility] [id number] [place] [address] [place] CBC W Auto Differential pane l (Bld)on 03-22-2025 Basophils (Bld) [#/Vol] [facility] Basophils/100 WBC (Bld) 0.7 % [facility] Differential cell count method Nom (Bld) Auto [facility] Eosinophils (Bld) [#/Vol] [facility] Eosinophils/100 WBC (Bld) 0.4 % [facility] Erythrocyte distribution width (RBC) [Ratio] 15.9 % High 11.5 - 15.0 % [facility] Hematocrit (Bld) [Volume fraction] 33.3 % Low 36.0 - 46.0 % [facility] Hemoglobin (Bld) [Mass/Vol] 11.6 g/dL 11.5 - 15.5 g/dL [facility] Immature granulocytes (Bld) [#/Vol] BANNERF [facility] Immature granulocytes/100 WBC (Bld) 0.7 % [facility] Interpretation and review of laboratory results Abnormal [facility] Lymphocytes (Bld) [#/Vol] 1.30 10*3/uL [facility] Lymphocytes/100 WBC (Bld) 48.3 % [facility] MCH (RBC) [Entitic mass] 35.0 pg High 26.0 - 34.[address] [facility] MCHC (RBC) [Mass/Vol] 34.8 g/dL 30.5 - 36.0 g/dL [facility] MCV (RBC) [Entitic vol] 100.6 fL High 80.0 - 100.[address] [facility] Monocytes (Bld) [#/Vol] 0.42 10*3/uL BANNERF [facility] Monocytes/100 WBC (Bld) 15.6 % [facility] Neutrophils (Bld) [#/Vol] 0.92 10*3/uL Low [facility] Neutrophils/100 WBC (Bld) 34.3 % [facility] Nucleated RBC (Bld) [#/Vol] BANNERF [facility] Nucleated RBC/100 WBC (Bld) [Ratio] 0.0 % /[address] [facility] Platelet mean volume (Bld) [Entitic vol] 8.4 fL Low 9.0 - 12.[address] [facility] Platelets (Bld) [#/Vol] 161 10*3/uL [facility] RBC (Bld) [#/Vol] 3.31 10*6/uL Low 3.90 - 5.2 0 m/uL [facility] WBC (Bld) [#/Vol] 2.69 10*3/uL Low [facility] Basophils (Bld) [#/Vol] 10*3/uL Normal <0.11 [facility] Comment on above: Order Comment: Speci men Type: BLOOD SPECIMENOrdering Facility: [facility] Address: [address] [place] [address] Performed By: #### 5 7021-8 ####[facility] [id number] [address] OF [facility] Basophils/100 WBC (Bld) 0.7 % Normal [facility] Comment on above: Order Comment: Speci men Type: BLOOD SPECIMENOrdering Facility: [facility] Address: [address] [place] [address] Performed By: #### 5 7021-8 ####[facility] [id number] [place] [address] [place] Differential cell count method Nom (Bld) Auto Normal [facility] Comment on above: Order Comment: Speci men Type: BLOOD SPECIMENOrdering Facility: [facility] Address: [address] [place] [address] Performed By: #### 5 7021-8 ####[facility] [id number] [place] [address] [place] Eosinophils (Bld) [#/Vol] 10*3/uL Normal <0.46 [facility] Comment on above: Order Comment: Speci men Type: BLOOD SPECIMENOrdering Facility: [facility] Address: [address] [place] [address] Performed By: #### 5 7021-8 ####[facility] [id number] [place] [address] [place] Eosinophils/100 WBC (Bld) 0.4 % Normal [facility] Comment on above: Order Comment: Speci men Type: BLOOD SPECIMENOrdering Facility: [facility] Address: [address] [place] [address] Performed By: #### 5 7021-8 ####[facility] [id number] [place] [address] [place] Erythrocyte distribution width (RBC) [Ratio] 15.9 % High 11.5-15.0 [facility] Comment on above: Order Comment: Speci men Type: BLOOD SPECIMENOrdering Facility: [facility] Address: [address] [place] [address] Performed By: #### 5 7021-8 ####[facility] [id number] [place] [address] [place] Hematocrit (Bld) [Volume fraction] 33.3 % Low 36.0-46.0 [facility] Comment on above: Order Comment: Speci men Type: BLOOD SPECIMENOrdering Facility: [facility] Address: [address] [place] [address] Performed By: #### 5 7021-8 ####[facility] IVONNEJuaquinNCSUZY [id number] [place] [address] [place] Hemoglobin (Bld) [Mass/Vol] 11.6 g/dL Normal 11.5-15.5 [facility] Comment on above: Order Comment: Speci men Type: BLOOD SPECIMENOrdering Facility: [facility] Address: [address] [place] [address] Performed By: #### 5 7021-8 ####[facility] [id number] [place] [address] [place] Immature granulocytes (Bld) [#/Vol] 10*3/uL Normal <0.10 [facility] Comment on above: Order Comment: Speci men Type: BLOOD SPECIMENOrdering Facility: [facility] Address: [address] [place] [address] Performed By: #### 5 7021-8 ####[facility] [id number] [place] [address] [place] Immature granulocytes/100 WBC (Bld) 0.7 % Normal [facility] Comment on above: Order Comment: Speci men Type: BLOOD SPECIMENOrdering Facility: [facility] Address: [address] [place] [address] Performed By: #### 5 7021-8 ####[facility] [id number] [place] [address] [place] Lymphocytes (Bld) [#/Vol] 1.30 10*3/uL Normal 1.00-4.00 [facility] Comment on above: Order Comment: Speci men Type: BLOOD SPECIMENOrdering Facility: [facility] Address: [address] [place] [address] Performed By: #### 5 7021-8 ####[facility] [id number] [place] [address] [place] Lymphocytes/100 WBC (Bld) 48.3 % Normal [facility] Comment on above: Order Comment: Speci men Type: BLOOD SPECIMENOrdering Facility: [facility] Address: [address] [place] [address] Performed By: #### 5 7021-8 ####[facility] [id number] [place] [address] [place] MCH (RBC) [Entitic mass] 35.0 pg High 26.0-34.0 [facility] Comment on above: Order Comment: Speci men Type: BLOOD SPECIMENOrdering Facility: [facility] Address: [address] [place] [address] Performed By: #### 5 7021-8 ####[facility] [id number] [place] [address] [place] MCHC (RBC) [Mass/Vol] 34.8 g/dL Normal 30.5-36.0 [facility] Comment on above: Order Comment: Speci men Type: BLOOD SPECIMENOrdering Facility: [facility] Address: [address] [place] [address] Performed By: #### 5 7021-8 ####[facility] [id number] [place] [address] [place] MCV (RBC) [Entitic vol] 100.6 fL High 80.0-100.0 [facility] Comment on above: Order Comment: Speci men Type: BLOOD SPECIMENOrdering Facility: [facility] Address: [address] [place] [address] Performed By: #### 5 7021-8 ####[facility] [id number] [place] [address] [place] Monocytes (Bld) [#/Vol] 0.42 10*3/uL Normal <0.87 [facility] Comment on above: Order Comment: Speci men Type: BLOOD SPECIMENOrdering Facility: [facility] Address: [address] [place] [address] Performed By: #### 5 7021-8 ####[facility] [id number] [place] [address] [place] Monocytes/100 WBC (Bld) 15.6 % Normal [facility] Comment on above: Order Comment: Speci men Type: BLOOD SPECIMENOrdering Facility: [facility] Address: [address] [place] [address] Performed By: #### 5 7021-8 ####[facility] [id number] [place] [address] [place] Neutrophils (Bld) [#/Vol] 0.92 10*3/uL Low 1.45-7.50 [facility] Comment on above: Order Comment: Speci men Type: BLOOD SPECIMENOrdering Facility: [facility] Address: [address] [place] [address] Performed By: #### 5 7021-8 ####[facility] [id number] [place] [address] [place] Neutrophils/100 WBC (Bld) 34.3 % Normal [facility] Comment on above: Order Comment: Speci men Type: BLOOD SPECIMENOrdering Facility: [facility] Address: [address] [place] [address] Performed By: #### 5 7021-8 ####[facility] [id number] [place] [address] [place] Nucleated RBC (Bld) [#/Vol] 10*3/uL Normal <0.01 [facility] Comment on above: Order Comment: Speci men Type: BLOOD SPECIMENOrdering Facility: [facility] Address: [address] [place] [address] Performed By: #### 5 7021-8 ####[facility] FELI [id number] [place] [address] [place] Nucleated RBC/100 WBC (Bld) [Ratio] 0.0 /100 WBC Normal [facility] Comment on above: Order Comment: Speci men Type: BLOOD SPECIMENOrdering Facility: [facility] Address: [address] [place] [address] Performed By: #### 5 7021-8 ####[facility] IVONNEJuaquinNCSUZY [id number] [place] [address] [place] Platelet mean volume (Bld) [Entitic vol] 8.4 fL Low 9.0-12.7 [facility] Comment on above: Order Comment: Speci men Type: BLOOD SPECIMENOrdering Facility: [facility] Address: [address] [place] [address] Performed By: #### 5 7021-8 ####[facility] IVONNENEW OXFORDHAYDEN [id number] [place] [address] [place] Platelets (Bld) [#/Vol] 161 10*3/uL Normal 150-400 [facility] Comment on above: Order Comment: Speci men Type: BLOOD SPECIMENOrdering Facility: [facility] Address: [address] [place] [address] Performed By: #### 5 7021-8 ####[facility] CHAR[facility]TEJACOBA [id number] [place] [address] [place] RBC (Bld) [#/Vol] 3.31 10*6/uL Low 3.90-5.20 [facility] Comment on above: Order Comment: Speci men Type: BLOOD SPECIMENOrdering Facility: [facility] Address: [address] [place] [address] Performed By: #### 5 7021-8 ####[facility] RIDGEWNCLIA [id number] [place] [address] [place] WBC (Bld) [#/Vol] 2.69 10*3/uL Low 3.70-11.00 [facility] Comment on above: Order Comment: Speci men Type: BLOOD SPECIMENOrdering Facility: [facility] Address: [address] [place] [address] Performed By: #### 5 7021-8 ####[facility]CL[facility] [id number] [place] [address] [place] CNOVSPon 03-22-2025 CNOVSP Normal [facility] Comprehensive metabolic 2000 panelOrdered By: Meeta Lau on 03-22-2025 Albumin [Mass/Vol] 4.1 g/dL 3.9 - 4.9 g/dL [facility] ALP [Catalytic activity/Vol] 59 U/L 34 - 123 U/L [facility] ALT [Catalytic activity/Vol] 32 U/L 7 - 38 U/L [facility] Anion gap [Moles/Vol] 12 mmol/L 8 - 15 mmol/L [facility] AST [Catalytic activity/Vol] 24 U/L 13 - 35 U/L [facility] Bilirubin [Mass/Vol] 0.6 mg/dL 0.2 - 1 .3 mg/dL [facility] Calcium [Mass/Vol] 10.1 mg/dL 8.5 - 10. 2 mg/dL [facility] Chloride [Moles/Vol] 104 mmol/L 98 - 10 7 mmol/L [facility] CO2 [Moles/Vol] 22 mmol/L 22 - 30 mmol/L [facility] Creatinine [Mass/Vol] 0.77 mg/dL 0.58 - 0.96 mg/dL [facility] GFR/1.73 sq M.predicted among non-blacks MDRD (S/P/Bld) [Vol rate/Area] 83 mL/min/{1.73_m2} - PINF [facility] Comment on above: Estimated Glomerular Filtration [...] not accurately reflect actual GFR. Glucose [Mass/Vol] 123 mg/dL High 74 - 99 mg/dL [facility] Comment on above: The [place] Diabete s Association (ADA) provides guidance for [...] Standards of Medical Care in Diabetes 2016, [place] Diabetes Association. Diabetes Care. 2016.39(Suppl 1). Interpretation and review of laboratory results Abnormal [facility] Potassium [Moles/Vol] 4.1 mmol/L 3.7 - 5.1 mmol/L [facility] Protein [Mass/Vol] 6.6 g/dL 6.3 - 8.0 g/dL [facility] Sodium [Moles/Vol] 138 mmol/L 136 - 144 mmol/L [facility] Urea nitrogen [Mass/Vol] 14 mg/dL 7 - 21 mg/dL [facility] Comprehensive metabolic 2000 panelon 03-22-2025 Albumin [Mass/Vol] 4.1 g/dL Normal 3.9-4.9 [facility] Comment on above: Order Comment: Speci men Type: BLOOD SPECIMENOrdering Facility: [facility] Address: [address] [place], [place] [address] [address] Performed By: #### 2 4323-8, 23030-9 ####[facility]OS[facility]ITALSUZY [id number] [place] [address] [place] ALP [Catalytic activity/Vol] 59 U/L Normal 34-123 [facility] Comment on above: Order Comment: Speci men Type: BLOOD SPECIMENOrdering Facility: [facility] Address: [address] [place] [address] Performed By: #### 2 4323-8, ####[facility] ROSY EDMOND [id number] [place] [address] [place] ALT [Catalytic activity/Vol] 32 U/L Normal 7-38 [facility] Comment on above: Order Comment: Speci men Type: BLOOD SPECIMENOrdering Facility: [facility] Address: [address] [place] [address] Performed By: #### 2 4323-8, ####[facility] IVONNEFANNYNCLIA [id number] [place] [address] [place] Anion gap [Moles/Vol] 12 mmol/L Normal 8-15 [facility] Comment on above: Order Comment: Speci men Type: BLOOD SPECIMENOrdering Facility: [facility] Address: [address] [place] [address] Performed By: #### 2 4323-8, ####[facility] ROSY IVONNENATHANJACOBA [id number] [place] [address] [place] AST [Catalytic activity/Vol] 24 U/L Normal 13-35 [facility] Comment on above: Order Comment: Speci men Type: BLOOD SPECIMENOrdering Facility: [facility] Address: [address] [place], [place] [address] Performed By: #### 2 4323-8, ####[facility] IVONNENEW OXFORDNCLIA [id number] [place] [address] [place] Bilirubin [Mass/Vol] 0.6 mg/dL Normal 0.2-1.3 [facility] Comment on above: Order Comment: Speci men Type: BLOOD SPECIMENOrdering Facility: [facility] Address: [address] [place] [address] Performed By: #### 2 4323-8, ####[facility] ROSY MILLTOWNCLIA [id number] [place] [address] [place] Calcium [Mass/Vol] 10.1 mg/dL Normal 8.5-10.2 [facility] Comment on above: Order Comment: Speci men Type: BLOOD SPECIMENOrdering Facility: [facility] Address: [address] [place], [place] [address] Performed By: #### 2 432-8, ####[facility] MILLTOWNCLIA [id number] [place] [address] [place] Chloride [Moles/Vol] 104 mmol/L Normal 98-107 [facility] Comment on above: Order Comment: Speci men Type: BLOOD SPECIMENOrdering Facility: [facility] Address: [address] [place], [place] [address] Performed By: #### 2 4328, ####[facility] P[facility] RIDGEWNCLIA [id number] [place] [address] [place] CO2 [Moles/Vol] 22 mmol/L Normal 22-30 [facility] Comment on above: Order Comment: Speci men Type: BLOOD SPECIMENOrdering Facility: [facility] Address: [address] [place], [place] [address] Performed By: #### 2 4328, ####[facility] MILLTOWNCLIA [id number] [place] [address] [place] Creatinine [Mass/Vol] 0.77 mg/dL Normal 0.58-0.96 [facility] Comment on above: Order Comment: Speci men Type: BLOOD SPECIMENOrdering Facility: [facility] Address: [address] [place], [place] [address] Performed By: #### 2 4323-8, ####[facility] RIDGEWNCLIA [id number] [place] [address] [place] eGFRcr SerPlBld CKD-EPI 2020 83 mL/min/1.73m??? Normal >=60 [facility] Comment on above: Order Comment: Cam silva Type: BLOOD SPECIMENOrdering Facility: [facility] Address: [address] [place] [address] Result Comment: Coco mated Glomerular Filtration Rate [...] actual GFR. Performed By: #### 2 4323-8, 50079-9 ####[facility] SPRINGFIELDLIA [id number] [place] [address] [place] Glucose [Mass/Vol] 123 mg/dL High 74-99 [facility] Comment on above: Order Comment: Cam silva Type: BLOOD SPECIMENOrdering Facility: [facility] Address: [address] [place] [address] Result Comment: The [place] Diabetes Association (ADA) provides guidance for cutoff [...] Standards of Medical Care in Diabetes 2016, [place] Diabetes Association. Diabetes Care. 2016.39(Suppl 1). Performed By: #### 2 4323-8, 87324-5 ####[facility] SPRINGFIELDLIA [id number] [place] [address] [place] Potassium [Moles/Vol] 4.1 mmol/L Normal 3.7-5.1 [facility] Comment on above: Order Comment: Speci men Type: BLOOD SPECIMENOrdering Facility: [facility] Address: [address] [place] [address] Performed By: #### 2 4323-8, 40882-3 ####[facility] ROSY MILLNATHANWANGIELIA [id number] [place] [address] [place] Protein [Mass/Vol] 6.6 g/dL Normal 6.3-8.0 [facility] Comment on above: Order Comment: Speci men Type: BLOOD SPECIMENOrdering Facility: [facility] Address: [address] [place] [address] Performed By: #### 2 4323-8, 04118-1 ####[facility] YULITrae [id number] [place] [address] [place] Sodium [Moles/Vol] 138 mmol/L Normal 136-144 [facility] Comment on above: Order Comment: Speci men Type: BLOOD SPECIMENOrdering Facility: [facility] Address: [address] [place] [address] Performed By: #### 2 4323-8, ####[facility] FELI [id number] [place] [address] [place] Urea nitrogen [Mass/Vol] 14 mg/dL Normal 7-21 [facility] Comment on above: Order Comment: Speci men Type: BLOOD SPECIMENOrdering Facility: [facility] Address: [address] [place] [address] Performed By: #### 2 4323-8, 49507-3 ####[facility] MILLFANNYNCLIA [id number] [place] [address] [place] MAGNESIUMon 03-22-2025 Magnesium [Mass/Vol] 2.1 mg/dL 1.7 - 2 .3 mg/dL [facility] Magnesium SerPl-mCncon 03-22 Magnesium [Mass/Vol] 2.1 mg/dL Normal 1.7-2.3 [facility] Comment on above: Order Comment: Speci men Type: BLOOD SPECIMENOrdering Facility: [facility] Address: [address] [place], [place] [address] [address] Performed By: #### 2 4323-8, 12430-3 ####[facility]ELDO[facility] MILLTOWNCLIA [id number] [place] [address] [place] Magnesium [Mass/Vol]on 03-22 Interpretation and review of laboratory results Normal [facility] No Panel InformationOrdered By: Meeta Lau on 03-22-[address] [facility] Urine Cultureon 03-19-2025 URC Culture exhibits no growth. Normal [facility] Comment on above: Performed By: #### M 100.2200, L400.0001 #### [facility] Laboratory [address] [facility] [place], [address] Bilirubin Test strip Ql (U)O rdered By: Mazin Arevalo on 03-18-2025 Bilirubin Ql (U) Negative Negative [facility] Discharge Instructionon 08-0 Discharge Instruction [facility] Medical Records Department [address] [place] [address] Instructions for Home/Discharge Instructions 03/18/25 1218 MR#: [id number] Acct: [id number] Name: LIZ ROBLES Rep #: [id number] : 1955 69 From: Emilie Lennon DO PCP: YEISON Vargas Status:REG SDC Discharge Instructions DC O2, CPAP, BIPAP needs [...] be discussed in further detail at your follow-up appointment, if applicable. Discharge Plan Admission Primary Reason for Your Visit: surgery Attending Provider: Emilie Lennon Primary Care Provider: Babita Morataya NP Instructions Patient Instructions: Dilation and Curettage Print Language: Lithuanian Discharge Orders/Prescriptions Prescriptions: Continued fluorometholone 0.1 % [...] SEE DOSE PACK Referrals / Follow Up: Babita Morataya NP, CASH POSTING CLERK-C [Primary Care Provider] - Disposition Disposition (needs filled in before D/C Order can be placed): Home, Self Care 03/18/25 1219 Emilie Lennon DO CC: LEANA-C Babita Morataya Signed Normal [facility] Emergency Department Summary on 03-18-2025 Emergency Department Summary [facility] Medical Records Department [address] [place] [address] Emergency Department Summary 03/18/25 MR#: [id number] Acct: [id number] Name: LIZ ROBLES Rep #: [id number] : 1955 69 From: Mazin Arevalo DO PCP: YEISON Vargas Status:REG ER Location: ED HPI History of Present Illness Chief Complaint: Complaint Narrative Narrative: Patient is a 69-year-old female with past medical history of breast cancer on chemo which was approximately 2 weeks ago last dose, GERD, hypertension who presented to the emergency department chief complaint of concern for urinary tract infection. Patient states that she had a hysteroscopy done today by Dr. Lennon as she had a polyp and they took this to the [facility] and sent for pathology. She states that afterwards when she went home she noted that when she tried to urinate it was very painful for her and continued therefore she came here to ensure that she does not have a urinary tract infection. [facility] Medical History History of stress test Wears glasses Post-menopausal Cancer Open wound History of steroid therapy Gastric reflux Non-smoker Hoarseness History of echocardiogram Cardiology follow-up encounter Breast cancer Hypertension Cervical paraspinal muscle spasm GERD (gastroesophageal reflux disease) Retinal detachment High cholesterol Hx of cataract UTI (urinary tract infection) History of back problems Environmental allergies Seasonal allergies Hemorrhoids Home Medications ???Medication ???Instructions ???Recorded ???Last Taken ???Type diphenhydramine HCl 25 mg capsule 50 mg PO Q8H PRN allergy symptoms 02/27/25 Unknown History (Benadryl) fluorometholone 0.1 % eye 1 drp LEFT EYE DAILY PRN PRN 02/27 Unknown History drops,suspension gabapentin 100 mg capsule 200 mg PO QHS 02/27/25 Unknown His tory pembrolizumab 50 mg intravenous 200 mg IV 02/27/25 Unknown History solution promethazine 25 mg tablet 25 mg PO TID PRN nausea and Unknown History vomiting methylprednisolone 4 mg tablets in 4 mg PO DAILY 03/09/25 Unknown H istory a dose pack Allergy/AdvReac Type Severity Reaction Status Date / Time adhesive tape Allergy Mild redness Verified 03/18/25 22:05 Bsgnfob-RXI-TvT Reductase AdvReac Pain in Verified 03/18/25 22:05 Inhibitor joints Family History Uncle Alcoholism Aunt Alcoholism Breast cancer Cancer ovarian Mother Liver disease Brother High cholesterol Surgical History Hx of dilation and curettage Hx of eye surgery Social History household members: spouse housing: house Smoking Status: Never smoker alcohol intake: never substance use type: does not use what type of physical activity do you participate in: none ROS ROS ED ROS Narrative Constitutional: Denies any fevers, chills Abdomen: Denies abdominal pain nausea vomiting : States that she has having some bleeding from her procedure earlier complains of urinary symptoms as noted above Neurological: Denies any numbness, weakness, tingling Musculoskeletal: Denies back pain Skin: Denies any rashes or lesions EXAM Physical Exam Narrative Exam Narrative: General: Patient was sitting in chair at bedside rest comfortably did not appear to be in acute distress Head: Atraumatic, normocephalic Eyes: PERRL bilaterally, EOMI bilateral, no conjunctival injection noted Neck: Soft, supple, trachea midline Cardiovascular: Regular rate and rhythm Respiratory: Clear to auscultation bilaterally Abdomen: Soft, nondistended, no tenderness palpation Extremities: +5/5 strength noted in the bilateral upper and lower extremities Neurological: Patient following commands knew that she was at [facility] year is 2024 Skin: Warm, dry, intact no rashes lesions noted Const Vital Signs: 03/18/25 22:01 Temperature 98.2 F Temperature Source Oral Pulse Rate 100 Respiratory Rate 18 Blood Pressure 142/69 H Blood Pressure Mean 93 Pulse Ox 97 Oxygen Delivery Method Room Air MDM MDM MDM Narrative Medical decision making narrative: Patient is a 69-year-old female who presented to the emergency department the chief complaint of concern for urinary tract infection. On the differential diagnosis includes but not limited to UTI, urethral irritation from procedure earlier today. Once workup is obtained reviewed she will be reevaluated. Patient's urinalysis reviewed and showed no evidence of infection. Patient will be given dose of Azo here in the emergency department. She is vies to follow-up with her (more content not included)... Normal [facility] Ketones Test strip Ql (U)Ord ered By: Mazin Arevalo on 03-18-2025 Ketones Ql (U) Negative Negative [facility] MR/POSTOP.Elia 03-18-2025 [facility] Medical Records Department [address] [place] [address] Anesthesia Postop Eval I 03/18/25 1226 MR#: [id number] Acct: [id number] Name: LIZ ROBLES Rep #: [id number] : 1955 69 From: Suman Victoria AUTOMATION LEAD PCP: YEISON Vargas Status:[facility] Y Race: C Location: [place] [address] Anesthesia: Postop Eval I Current Vital Signs [...] Anesthesia document: Postop Eval 1 completed: Yes 03/18/25 1227 Date Suman Victoria AUTOMATION LEAD Cosigner Signature: Date CC: Signed Normal [facility] MR/GEGTNLLP8ax 03-18-2025 [facility] Medical Records Department [address] [place] [id number] Anesthesia Postop Eval II 03/18/25 1730 MR#: [id number] Acct: [id number] Name: LIZ ROBLES Rep #: [id number] : 1955 69 From: Sukhwinder Brizuela MD PCP: YEISON Vargas Status:[facility] Y Race: C [place] [facility] [place]esthesia Postop Eval I Sum Postop Eval Completion status Anesthesia document: Postop Eval 1 completed: Yes Anesthesia Postop Eval I Summary Anesthesia Postop Eval I Summary: Anesthesia Postop Eval I: Assessment Summary Airway patent Yes 03/18/25 12:27 AUTOMATION [email or web address].[email or web address] Spontaneous unlabored Yes 03/18/25 12:27 AUTOMATION LEAD.[email or web address] respirations Mental status Awake,Calm 03/18/25 12:27 AUTOMATION [email or web address].[email or web address] nausea No 03/18/25 12:27 AUTOMATION LEAD.PKEL Vomiting No 03/18/25 12:27 AUTOMATION LEAD.PKEL Anesthesia Postop Eval I: Fluid Summary Crystalloid volume administer 400 03/18/25 12:27 AUTOMATION LEAD.PKEL (ml) Colloids volume administered ( ml) Blood Product volume administered (ml) Total IV fluid infused 400 03/18/25 12:27 AUTOMATION LEAD.PKEL Anesthesia Postop Eval I: Summary Notes Anesthesia Complication No 03/18/25 12:27 AUTOMATION LEAD.PKEL Anesthesia Complication Comment: Post-operative progress note Anesthesia: Postop Eval II Evaluation Mental status: Awake and Calm Pain Level: 1 nausea: No Vomiting: No Complications Anesthesia Complication: No 03/18/25 1731 Date Sukhwinder Berg Signature: Date CC: Signed Normal [facility] Microscopic analysis of urin e for red blood cells (RBC)Ordered By: Mazin Arevalo on 03-18-2025 Microscopic analysis of urine for red blood cells (RBC) 0-5 SEEN /hpf 0-5 [facility] Mucus LM Ql (Urine sed)Order ed By: Mazin Arevalo on 03-18-2025 Mucus Ql (Urine sed) 0 SEEN /hpf [facility] Nitrite Test strip Ql (U)Ord ered By: Mazin Arevalo on 03-18-2025 Nitrite Ql (U) Negative Negative [facility] Operative Reporton Operative Report [facility] Medical Records Department [address] [place] [address] Operative Report 03/18/25 1219 MR#: [id number] Acct: [id number] Name: LIZ ROBLES Rep #: [id number] : 1955 69 From: Emilie Lennon DO PCP: YEISON Vargas Status[place] [place] Location: [place] [address] Problems Associated Problem List Diagnoses (1) Endometrial polyp: Operative Report (Standard) Operative Information Date of Procedure: 03/18/25 Pre-Operative Diagnosis: Endometrial polyp on pelvic ultrasound Post-Operative Diagnosis: No lesion noted on hysteroscopy Surgery/Procedure Performed: Hysteroscopy 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 Type of Anesthesia: Local and MAC RN Documented Start/Stop Times: Operation Date: 03/18/25 11:40 Case Time Into Pre-Op 03/18/25 10:24 Out of Pre-Op 03/18/25 11:52 Anesthesia Start 03/18/25 11:57 Into Room 03/18/25 11:57 Procedure Start 03/18/25 12:10 Procedure End 03/18/25 12:16 Procedure Start Time: 12:10 Procedure Stop Time: 12:16 Select all DRAINS/GRAFTS/IMPLANTS that apply: None Special Medications: None Estimated Blood Loss: < 20 mL Specimen collected: Yes Description of specimen(s) removed: Endometrial curettings Description of surgery: The patient was taken to the operating room where MAC anesthesia was induced and found to be adequate. She was prepped and draped in the dorsal lithotomy position using yellowfin stirrups. A weighted speculum was placed in the vagina to expose the cervix. The anterior lip of the cervix was grasped with a single-tooth tenaculum. 10 mL of local was infiltrated within the cervix. The cervix was serially dilated to accommodate the Symphion hysteroscope. The Symphion hysteroscope was advanced into the uterus, and the uterus was distended with normal saline as distention media. Bilateral tubal ostia were visualized. The endometrium was thin and atrophic appearing. There were no lesions noted within the uterus or within the endocervical canal. The hysteroscope was slowly removed, and there were no polyps or lesions noted. A sharp curettage was performed for scant tissue. The endometrial curettings were sent to pathology for review. Bleeding was scant. All instruments were removed from the vagina. A vaginal sweep was performed. Instrument and sponge counts were correct and the patient was taken to the recovery room in good stable condition. 300 mL fluid deficit. Surgical Findings: Normal appearing uterine cavity with thin, atrophic appearing endometrium Complications Complications: No Admit VTE Documentation VTE Present on Admission: No VTE Mechan Device Prophylaxis: SCD's 03/18/25 3963 Cosigner Signature (if applicable): CC: YEISON Morataya; Dr. Emilie Lennon DO Signed Normal [facility] Protein Test strip Ql (U)Ord ered By: Mazin Arevalo on 03-18-2025 Protein Ql (U) 15 mg/dl High Negative [facility] Squamous epithelial cells de tection in urine sediment by light microscopyOrdered By: Mazin Arevalo on 03-18-2025 Epithelial cells.squamous LM Ql (Urine sed) 0 SEEN /hpf 5-10 [facility] Surgery Specimen Level Cristian 03-18-2025 Surgery Specimen Level IV Patient Age/Sex Location Account Attending Physician LIZ ROBLES 69/F [facility] [place] [id number] Dr. Emilie Lennon, Specimen: [id number] Received: 03/18/25 Status: RAFA Antonio Num: [id number] Spec Type: ENDOM BX/C Subm Dr: Dr. Emilie Lennon, HEADER OPERATION: Hysteroscopy, D C PRE-OP DIAGNOSIS: Endometrial polyp TISSUE SUBMITTED: A- Endometrial curettings MICROSCOPIC DIAGNOSIS A. Endometrium, curettage: * Scant superficial endometrium and endocervical mucosa - see note. Note: A limited amount of tissue is present. Clinical correlation is necessary to assess the adequacy of the sampling. MICROSCOPIC DESCRIPTION Slides are reviewed. GROSS DESCRIPTION A. Received in formalin labeled with the patient's name and date of . Designated as endometrial curettings is a blood tinged Telfa pad containing possible flecks of soft tissue and mucoid material. The specimen is entirely submitted in 1 cassette for cell block preparation. Specimen may not survive processing. VT 03/18/2025 CPT:83071 Patient Age/Sex Location Account Attending Physician LIZ ROBLES 69/F [facility] [place] [id number] Dr. Emilie Lennon, Signed (signature on file) Dr. Olivia Morgan MD 03/22/25 1550 Normal [facility] Comment on above: Performed By: #### P SUIV #### [facility] Laboratory [address] [place], [address] Type AND Screen - PAT ONLYon 03-18-2025 ABO and Rh group Nom (Bld) Blood group B Rh(D) positive Normal [facility] Comment on above: Order Comment: Surge ry Date: 03/18/25 Reason for Laboratory Test PRE-OP [id number] No N N S 1000 Hysteroscopy,D C, polypectomy, Symphion Performed By: #### B TSPAT #### [facility] [address] [place], [address] Urinalysis, Completeon 03-18 RBC 0-5 SEEN Normal 0-5 [facility] Comment on above: Order Comment: CLEAN CATCH Performed By: #### M 100.2200, L400.0001 #### [facility] [address] [place], [address] WBC 0-5 SEEN Normal 0-5 [facility] Comment on above: Order Comment: CLEAN CATCH Performed By: #### M 100.2200, L400.0001 #### [facility] [address] [place], [address] BACTERIA 0 SEEN Normal None Seen [facility] Comment on above: Order Comment: CLEAN CATCH Performed By: #### M 100.2200, L400.0001 #### [facility] [address] [place], [address] EPI,SQUAMOUS 0 SEEN Normal 5-10 [facility] Comment on above: Order Comment: CLEAN CATCH Performed By: #### M 100.2200, L400.0001 #### [facility] [address] [place], [address] Mucus Ql (Urine sed) 0 SEEN Normal [facility] Comment on above: Order Comment: CLEAN CATCH Performed By: #### M 100.2200, L400.0001 #### [facility] [address] [place], [address] Urine clarityOrdered By: Bert Arevalo on 03-18-2025 Clarity (U) Clear Clear [facility] Urine color determinationOrd ered By: Mazin Arevalo on 03-18-2025 Color (U) Yellow Yellow [facility] Urine cultureOrdered By: Bert Arevalo on 03-18-2025 Bacteria identified Cx Nom (U) Culture exhibits no growth. [facility] Urine glucose detectionOrder ed By: Mazin Arevalo on 03-18-2025 Glucose Ql (U) Normal mg/dl Normal [facility] Urine leukocyte esterase det ection by dipstickOrdered By: Mazin Arevalo on 03-18-2025 Leukocyte esterase Test strip Ql (U) Negative Negative [facility] Urine pHOrdered By: Mazin arias on 03-18-2025 pH (U) 7.0 [pH] 5.0 - 8.0 [facility] Urine sediment bacteria coun t by microscopy (number/high power field)Ordered By: Mazin Arevalo on 03-18-2025 Bacteria LM.HPF (Urine sed) [#/Area] 0 /[HPF] None Seen [facility] Urine specific gravity measu rementOrdered By: Mazin Arevalo on 03-18-2025 Specific gravity (U) [Rel density] 1.010 1.002-1.030 [facility] Urine urobilinogen measureme ntOrdered By: Mazin Arevalo on 08-08-2025 Urobilinogen Ql (U) Normal mg/dl Normal [facility] White blood cell countOrdere d By: Mazin Arevalo on 03-18-2025 White blood cell count 0-5 SEEN /hpf 0-5 [facility] CBC W Auto Differential pane l (Bld)on 03-17-2025 Basophils (Bld) [#/Vol] 10*3/uL Normal <0.11 [facility] Comment on above: Order Comment: Speci men Type: BLOOD SPECIMENOrdering Facility: [facility] Address: [address] [place] [address] Performed By: #### 5 7021-8 ####[facility] MILLWNCLIA [id number] [place] [address] [place] Basophils/100 WBC (Bld) 0.4 % Normal [facility] Comment on above: Order Comment: Speci men Type: BLOOD SPECIMENOrdering Facility: [facility] Address: [address] [place] [address] Performed By: #### 5 7021-8 ####[facility] [id number] [place] [address] [place] Differential cell count method Nom (Bld) Auto Normal [facility] Comment on above: Order Comment: Speci men Type: BLOOD SPECIMENOrdering Facility: [facility] Address: [address] [place] [address] Performed By: #### 5 7021-8 ####[facility] MILLWNCLIA [id number] [place] [address] [place] Eosinophils (Bld) [#/Vol] 10*3/uL Normal <0.46 [facility] Comment on above: Order Comment: Speci men Type: BLOOD SPECIMENOrdering Facility: [facility] Address: [address] [place] [address] Performed By: #### 5 7021-8 ####[facility]FIELDL[facility] [id number] [place] [address] [place] Eosinophils/100 WBC (Bld) 0.0 % Normal [facility] Comment on above: Order Comment: Speci men Type: BLOOD SPECIMENOrdering Facility: [facility] Address: [address] [place] [address] Performed By: #### 5 7021-8 ####[facility] [id number] [place] [address] [place] Erythrocyte distribution width (RBC) [Ratio] 14.7 % Normal 11.5-15.0 [facility] Comment on above: Order Comment: Speci men Type: BLOOD SPECIMENOrdering Facility: [facility] Address: [address] [place] [address] Performed By: #### 5 7021-8 ####[facility] [id number] [place] [address] [place] Hematocrit (Bld) [Volume fraction] 30.9 % Low 36.0-46.0 [facility] Comment on above: Order Comment: Speci men Type: BLOOD SPECIMENOrdering Facility: [facility] Address: [address] [place] [address] Performed By: #### 5 7021-8 ####[facility]OTTENCL[facility] [id number] [place] [address] [place] Hemoglobin (Bld) [Mass/Vol] 10.7 g/dL Low 11.5-15.5 [facility] Comment on above: Order Comment: Speci men Type: BLOOD SPECIMENOrdering Facility: [facility] Address: [address] [place] [address] Performed By: #### 5 7021-8 ####[facility]OTTENCLI [id number] [place] [address] [place] Immature granulocytes (Bld) [#/Vol] 0.06 10*3/uL Normal <0.10 [facility] Comment on above: Order Comment: Speci men Type: BLOOD SPECIMENOrdering Facility: [facility] Address: [address] [place] [address] Performed By: #### 5 7021-8 ####[facility] CHARLOTTEJACOB [id number] [place] [address] [place] Immature granulocytes/100 WBC (Bld) 2.1 % Normal [facility] Comment on above: Order Comment: Speci men Type: BLOOD SPECIMENOrdering Facility: [facility] Address: [address] [place] [address] Performed By: #### 5 7021-8 ####[facility] [id number] [place] [address] [place] Lymphocytes (Bld) [#/Vol] 1.71 10*3/uL Normal 1.00-4.00 [facility] Comment on above: Order Comment: Speci men Type: BLOOD SPECIMENOrdering Facility: [facility] Address: [address] [place] [address] Performed By: #### 5 7021-8 ####[facility] [id number] [place] [address] [place] Lymphocytes/100 WBC (Bld) 60.9 % Normal [facility] Comment on above: Order Comment: Speci men Type: BLOOD SPECIMENOrdering Facility: [facility] Address: [address] [place] [address] Performed By: #### 5 7021-8 ####[facility] [id number] [place] [address] [place] MCH (RBC) [Entitic mass] 34.6 pg High 26.0-34.0 [facility] Comment on above: Order Comment: Speci men Type: BLOOD SPECIMENOrdering Facility: [facility] Address: [address] [place] [address] Performed By: #### 5 7021-8 ####[facility] CHARLOTTENCL[facility] [id number] [place] [address] [place] MCHC (RBC) [Mass/Vol] 34.6 g/dL Normal 30.5-36.0 [facility] Comment on above: Order Comment: Speci men Type: BLOOD SPECIMENOrdering Facility: [facility] Address: [address] [place] [address] Performed By: #### 5 7021-8 ####[facility] CHAR[facility]OTTENCSANCHEZ [id number] [place] [address] [place] MCV (RBC) [Entitic vol] 100.0 fL Normal 80.0-100.0 [facility] Comment on above: Order Comment: Speci men Type: BLOOD SPECIMENOrdering Facility: [facility] Address: [address] [place] [address] Performed By: #### 5 7021-8 ####[facility] [id number] [place] [address] [place] Monocytes (Bld) [#/Vol] 0.14 10*3/uL Normal <0.87 [facility] Comment on above: Order Comment: Speci men Type: BLOOD SPECIMENOrdering Facility: [facility] Address: [address] [place] [address] Performed By: #### 5 7021-8 ####[facility]FIELDSUZY [id number] [address] STATES [facility] Monocytes/100 WBC (Bld) 5.0 % Normal [facility] Comment on above: Order Comment: Speci men Type: BLOOD SPECIMENOrdering Facility: [facility] Address: [address] [place] [address] Performed By: #### 5 7021-8 ####[facility] CHARLOTTENCL[facility] [id number] [place] [address] [place] Neutrophils (Bld) [#/Vol] 0.89 10*3/uL Low 1.45-7.50 [facility] Comment on above: Order Comment: Speci men Type: BLOOD SPECIMENOrdering Facility: [facility] Address: [address] [place] [address] Performed By: #### 5 7021-8 ####[facility] [id number] [place] [address] [place] Neutrophils/100 WBC (Bld) 31.6 % Normal [facility] Comment on above: Order Comment: Speci men Type: BLOOD SPECIMENOrdering Facility: [facility] Address: [address] [place] [address] Performed By: #### 5 7021-8 ####[facility] [id number] [place] [address] [place] Nucleated RBC (Bld) [#/Vol] 0.03 10*3/uL High <0.01 [facility] Comment on above: Order Comment: Speci men Type: BLOOD SPECIMENOrdering Facility: [facility] Address: [address] [place] [address] Performed By: #### 5 7021-8 ####[facility] [id number] [place] [address] [place] Nucleated RBC/100 WBC (Bld) [Ratio] 1.1 /100 WBC Normal [facility] Comment on above: Order Comment: Speci men Type: BLOOD SPECIMENOrdering Facility: [facility] Address: [address] [place] [address] Performed By: #### 5 7021-8 ####[facility] [id number] [place] [address] [place] Platelet mean volume (Bld) [Entitic vol] 8.8 fL Low 9.0-12.7 [facility] Comment on above: Order Comment: Speci men Type: BLOOD SPECIMENOrdering Facility: [facility] Address: [address] [place] [address] Performed By: #### 5 7021-8 ####[facility] MONICANCLIA [id number] [place] [address] [place] Platelets (Bld) [#/Vol] 177 10*3/uL Normal 150-400 [facility] Comment on above: Order Comment: Speci men Type: BLOOD SPECIMENOrdering Facility: [facility] Address: [address] [place] [address] Performed By: #### 5 7021-8 ####[facility] [id number] [place] [address] [place] RBC (Bld) [#/Vol] 3.09 10*6/uL Low 3.90-5.20 [facility] Comment on above: Order Comment: Speci men Type: BLOOD SPECIMENOrdering Facility: [facility] Address: [address] [place] [address] Performed By: #### 5 7021-8 ####[facility] CHARLOTTENCL[facility] [id number] [address] [place] [facility] WBC (Bld) [#/Vol] 2.81 10*3/uL Low 3.70-11.00 [facility] Comment on above: Order Comment: Speci men Type: BLOOD SPECIMENOrdering Facility: [facility] Address: [address] [place] [address] Performed By: #### 5 7021-8 ####[facility]OTT[facility]CL[facility] [id number] [place] [address] [place] CBC W Auto Differential pane l (Bld)on 03-16-2025 Basophils (Bld) [#/Vol] 10*3/uL Normal <0.11 [facility] Comment on above: Order Comment: Speci men Type: BLOOD SPECIMENOrdering Facility: [facility] Address: [address] [place] [address] Performed By: #### 5 7021-8 ####[facility] MILLTOWNCLIA [id number] [place] [address] [place] Basophils/100 WBC (Bld) 0.0 % Normal [facility] Comment on above: Order Comment: Speci men Type: BLOOD SPECIMENOrdering Facility: [facility] Address: [address] [place] [address] Performed By: #### 5 7021-8 ####[facility] MILLWNCLIA [id number] [place] [address] [place] Differential cell count method Nom (Bld) Auto Normal [facility] Comment on above: Order Comment: Speci men Type: BLOOD SPECIMENOrdering Facility: [facility] Address: [address] [place] [address] Performed By: #### 5 7021-8 ####[facility] MILLTOWNCLIA [id number] [place] [address] [place] Eosinophils (Bld) [#/Vol] 10*3/uL Normal <0.46 [facility] Comment on above: Order Comment: Speci men Type: BLOOD SPECIMENOrdering Facility: [facility] Address: [address] [place] [address] Performed By: #### 5 7021-8 ####[facility] MILLTOWNCLIA [id number] [place] [address] [place] Eosinophils/100 WBC (Bld) 0.3 % Normal [facility] Comment on above: Order Comment: Speci men Type: BLOOD SPECIMENOrdering Facility: [facility] Address: [address] [place] [address] Performed By: #### 5 7021-8 ####[facility] MILLTOWNCLIA [id number] [place] [address] [place] Erythrocyte distribution width (RBC) [Ratio] 14.6 % Normal 11.5-15.0 [facility] Comment on above: Order Comment: Speci men Type: BLOOD SPECIMENOrdering Facility: [facility] Address: [address] [place] [address] Performed By: #### 5 7021-8 ####[facility] [id number] [place] [address] [place] Hematocrit (Bld) [Volume fraction] 30.9 % Low 36.0-46.0 [facility] Comment on above: Order Comment: Speci men Type: BLOOD SPECIMENOrdering Facility: [facility] Address: [address] [place] [address] Performed By: #### 5 7021-8 ####[facility] CHARLOTTENCSUZ[facility] [id number] [place] [address] [place] Hemoglobin (Bld) [Mass/Vol] 10.8 g/dL Low 11.5-15.5 [facility] Comment on above: Order Comment: Speci men Type: BLOOD SPECIMENOrdering Facility: [facility] Address: [address] [place] [address] Performed By: #### 5 7021-8 ####[facility] CHARLOTTEANGIELITrae [id number] [place] [address] [place] Immature granulocytes (Bld) [#/Vol] 0.06 10*3/uL Normal <0.10 [facility] [place] Comment on above: Order Comment: Speci men Type: BLOOD SPECIMENOrdering Facility: [facility] Address: [address] [place] [address] Performed By: #### 5 7021-8 ####[facility] CHARLOTTENCLIA [id number] [place] [address] [place] Immature granulocytes/100 WBC (Bld) 1.9 % Normal [facility] Comment on above: Order Comment: Speci men Type: BLOOD SPECIMENOrdering Facility: [facility] Address: [address] [place] [address] Performed By: #### 5 7021-8 ####[facility] CHARLOTTENCSANCHEZ [id number] [place] [address] [place] Lymphocytes (Bld) [#/Vol] 1.99 10*3/uL Normal 1.00-4.00 [facility] Comment on above: Order Comment: Speci men Type: BLOOD SPECIMENOrdering Facility: [facility] Address: [address] [place] [address] Performed By: #### 5 7021-8 ####[facility] [id number] [place] [address] [place] Lymphocytes/100 WBC (Bld) 64.2 % Normal [facility] Comment on above: Order Comment: Speci men Type: BLOOD SPECIMENOrdering Facility: [facility] Address: [address] [place] [address] Performed By: #### 5 7021-8 ####[facility] [id number] [place] [address] [place] MCH (RBC) [Entitic mass] 34.7 pg High 26.0-34.0 [facility] Comment on above: Order Comment: Speci men Type: BLOOD SPECIMENOrdering Facility: [facility] Address: [address] [place] [address] Performed By: #### 5 7021-8 ####[facility]ITAL[facility] [id number] [place] [address] [place] MCHC (RBC) [Mass/Vol] 35.0 g/dL Normal 30.5-36.0 [facility] Comment on above: Order Comment: Speci men Type: BLOOD SPECIMENOrdering Facility: [facility] Address: [address] [place] [address] Performed By: #### 5 7021-8 ####[facility] CHARLOTTENCLIA [id number] [place] [address] [place] MCV (RBC) [Entitic vol] 99.4 fL Normal 80.0-100.0 [facility] Comment on above: Order Comment: Speci men Type: BLOOD SPECIMENOrdering Facility: [facility] Address: [address] [place] [address] Performed By: #### 5 7021-8 ####[facility] CHARLOTTENCA [id number] [place] [address] [place] Monocytes (Bld) [#/Vol] 0.15 10*3/uL Normal <0.87 [facility] Comment on above: Order Comment: Speci men Type: BLOOD SPECIMENOrdering Facility: [facility] Address: [address] [place] [address] Performed By: #### 5 7021-8 ####[facility] CHARLOTTENCA [id number] [place] [address] [place] Monocytes/100 WBC (Bld) 4.8 % Normal [facility] Comment on above: Order Comment: Speci men Type: BLOOD SPECIMENOrdering Facility: [facility] Address: [address] [place] [address] Performed By: #### 5 7021-8 ####[facility] SPRINGFIELDLIA [id number] [place] [address] [place] Neutrophils (Bld) [#/Vol] 0.89 10*3/uL Low 1.45-7.50 [facility] Comment on above: Order Comment: Speci men Type: BLOOD SPECIMENOrdering Facility: [facility] Address: [address] [place] [address] Performed By: #### 5 7021-8 ####[facility] SPRINGFIELDLIA [id number] [place] [address] [place] Neutrophils/100 WBC (Bld) 28.8 % Normal [facility] Comment on above: Order Comment: Speci men Type: BLOOD SPECIMENOrdering Facility: [facility] Address: [address] [place] [address] Performed By: #### 5 7021-8 ####[facility] CHARLOTTEHAYDEN [id number] [place] [address] [place] Nucleated RBC (Bld) [#/Vol] 0.04 10*3/uL High <0.01 [facility] Comment on above: Order Comment: Speci men Type: BLOOD SPECIMENOrdering Facility: [facility] Address: [address] [place] [address] Performed By: #### 5 7021-8 ####[facility] [id number] [place] [address] [place] Nucleated RBC/100 WBC (Bld) [Ratio] 1.3 /100 WBC Normal [facility] Comment on above: Order Comment: Speci men Type: BLOOD SPECIMENOrdering Facility: [facility] Address: [address] [place] [address] Performed By: #### 5 7021-8 ####[facility] CHARLOTTENCSUZY [id number] [place] [address] [place] Platelet mean volume (Bld) [Entitic vol] 8.7 fL Low 9.0-12.7 [facility] Comment on above: Order Comment: Speci men Type: BLOOD SPECIMENOrdering Facility: [facility] Address: [address] [place] [address] Performed By: #### 5 7021-8 ####[facility] CHARLOTTENCLI [id number] [place] [address] [place] Platelets (Bld) [#/Vol] 184 10*3/uL Normal 150-400 [facility] Comment on above: Order Comment: Speci men Type: BLOOD SPECIMENOrdering Facility: [facility] Address: [address] [place] [address] Performed By: #### 5 7021-8 ####[facility] PINE RIDGEWNCLIA [id number] [place] [address] [place] RBC (Bld) [#/Vol] 3.11 10*6/uL Low 3.90-5.20 [facility] Comment on above: Order Comment: Speci men Type: BLOOD SPECIMENOrdering Facility: [facility] Address: [address] [place] [address] Performed By: #### 5 7021-8 ####[facility] CHARLOTTENCA [id number] [place] [address] [place] WBC (Bld) [#/Vol] 3.10 10*3/uL Low 3.70-11.00 [facility] Comment on above: Order Comment: Speci men Type: BLOOD SPECIMENOrdering Facility: [facility] Address: [address] [place] [address] Performed By: #### 5 7021-8 ####[facility] CHARLOTTENCLIA [id number] [place] [address] [place] CNPNon 03-16-2025 CNPN Normal [facility] Comprehensive metabolic 2000 panelon 03-16-2025 Albumin [Mass/Vol] 3.8 g/dL Low 3.9-4.9 [facility] Comment on above: Order Comment: Speci men Type: BLOOD SPECIMENOrdering Facility: [facility] Address: [address] [place] [address] Performed By: #### 2 4323-8 ####[facility] CHARLOTTENCLIA [id number] [place] [address] [place] ALP [Catalytic activity/Vol] 52 U/L Normal 34-123 [facility] Comment on above: Order Comment: Speci men Type: BLOOD SPECIMENOrdering Facility: [facility] Address: [address] [place] [address] Performed By: #### 2 4323-8 ####[facility] MILLTOWNCLIA [id number] [place] [address] [place] ALT [Catalytic activity/Vol] 28 U/L Normal 7-38 [facility] Comment on above: Order Comment: Speci men Type: BLOOD SPECIMENOrdering Facility: [facility] Address: [address] [place] [address] Performed By: #### 2 4323-8 ####[facility] PINE RIDGEWNCLIA [id number] [place] [address] [place] Anion gap [Moles/Vol] 9 mmol/L Normal 8-15 [facility] Comment on above: Order Comment: Speci men Type: BLOOD SPECIMENOrdering Facility: [facility] Address: [address] [place] [address] Performed By: #### 2 4323-8 ####[facility] P[facility] RIDGEWNCLIA [id number] [place] [address] [place] AST [Catalytic activity/Vol] 18 U/L Normal 13-35 [facility] Comment on above: Order Comment: Speci men Type: BLOOD SPECIMENOrdering Facility: [facility] Address: [address] [place] [address] Performed By: #### 2 4323-8 ####[facility] P[facility] RIDGEWNCLIA [id number] [place] [address] [place] Bilirubin [Mass/Vol] 0.5 mg/dL Normal 0.2-1.3 [facility] Comment on above: Order Comment: Speci men Type: BLOOD SPECIMENOrdering Facility: [facility] Address: [address] [place] [address] Performed By: #### 2 4323-8 ####[facility] MILLTOWNCLIA [id number] [place] [address] [place] Calcium [Mass/Vol] 9.3 mg/dL Normal 8.5-10.2 [facility] Comment on above: Order Comment: Speci men Type: BLOOD SPECIMENOrdering Facility: [facility] Address: [address] [place] [address] Performed By: #### 2 4323-8 ####[facility] MILLWNCLIA [id number] [place] [address] [place] Chloride [Moles/Vol] 105 mmol/L Normal 98-107 [facility] Comment on above: Order Comment: Speci men Type: BLOOD SPECIMENOrdering Facility: [facility] Address: [address] [place] [address] Performed By: #### 2 4323-8 ####[facility] SPRINGFIELDLIA [id number] [place] [address] [place] CO2 [Moles/Vol] 24 mmol/L Normal 22-30 [facility] Comment on above: Order Comment: Speci men Type: BLOOD SPECIMENOrdering Facility: [facility] Address: [address] [place] [address] Performed By: #### 2 4323-8 ####[facility] RIDGEWNCLIA [id number] [place] [address] [place] Creatinine [Mass/Vol] 0.72 mg/dL Normal 0.58-0.96 [facility] Comment on above: Order Comment: Speci men Type: BLOOD SPECIMENOrdering Facility: [facility] Address: [address] [place] [address] Performed By: #### 2 4323-8 ####[facility] CHARLOTTENCLIA [id number] [place] [address] [place] eGFRcr SerPlBld CKD-EPI 2020 90 mL/min/1.73m??? Normal >=60 [facility] Comment on above: Order Comment: Cam silva Type: BLOOD SPECIMENOrdering Facility: [facility] Address: [address] [place] [address] Result Comment: Coco mated Glomerular Filtration Rate [...] actual GFR. Performed By: #### 2 4323-8 ####[facility] CHARLOTTEANGIETrae [id number] [place] [address] [place] Glucose [Mass/Vol] 124 mg/dL High 74-99 [facility] Comment on above: Order Comment: Cam silva Type: BLOOD SPECIMENOrdering Facility: [facility] Address: [address] [place] [address] Result Comment: The [place] [employer] (ADA) provides guidance for cutoff [...] Standards of Medical Care in Diabetes 2016, [place] [employer]. Diabetes Care. 2016.39(Suppl 1). Performed By: #### 2 4323-8 ####[facility] CHARLOTTENCSANCHEZ [id number] [place] [address] [place] Potassium [Moles/Vol] 3.6 mmol/L Low 3.7-5.1 [facility] Comment on above: Order Comment: Speci men Type: BLOOD SPECIMENOrdering Facility: [facility] Address: [address] [place] [address] Performed By: #### 2 4323-8 ####[facility] VALERIANOWNCLIA [id number] [place] [address] [place] Protein [Mass/Vol] 5.9 g/dL Low 6.3-8.0 [facility] Comment on above: Order Comment: Speci men Type: BLOOD SPECIMENOrdering Facility: [facility] Address: [address] [place] [address] Performed By: #### 2 4323-8 ####[facility] CHARLOTTENCLIA [id number] [place] [address] [place] Sodium [Moles/Vol] 138 mmol/L Normal 136-144 [facility] Comment on above: Order Comment: Speci men Type: BLOOD SPECIMENOrdering Facility: [facility] Address: [address] [place] [address] Performed By: #### 2 4323-8 ####[facility] CHARLOTTENCLIA [id number] [place] [address] [place] Urea nitrogen [Mass/Vol] 16 mg/dL Normal 7-21 [facility] Comment on above: Order Comment: Speci men Type: BLOOD SPECIMENOrdering Facility: [facility] Address: [address] [place] [address] Performed By: #### 2 4323-8 ####[facility] CHARLOTTENCLIA [id number] [place] [address] [place] CNOVSPon 03-14-2025 CNOVSP Normal [facility] CNPNon 03-11-2025 CNPN Normal [facility] CBC W Auto Differential pane l (Bld)on 03-09-2025 Basophils (Bld) [#/Vol] NINF [facility] Basophils/100 WBC (Bld) 0.2 % [facility] Differential cell count method Nom (Bld) Auto [facility] Eosinophils (Bld) [#/Vol] BANNERF [facility] Eosinophils/100 WBC (Bld) 0 % [facility] Erythrocyte distribution width (RBC) [Ratio] 13.3 % 11.5 - 15.0 % [facility] Hematocrit (Bld) [Volume fraction] 33.5 % Low 36.0 - 46.0 % [facility] Hemoglobin (Bld) [Mass/Vol] 11.4 g/dL Low 11.5 - 15.5 g/dL [facility] Immature granulocytes (Bld) [#/Vol] 0.07 10*3/uL BANNERF [facility] Immature granulocytes/100 WBC (Bld) 1.3 % [facility] Interpretation and review of laboratory results Abnormal [facility] Lymphocytes (Bld) [#/Vol] 3.48 10*3/uL [facility] Lymphocytes/100 WBC (Bld) 66.4 % [facility] MCH (RBC) [Entitic mass] 33.5 pg 26.0 - 34.[address] [facility] MCHC (RBC) [Mass/Vol] 34 g/dL 30.5 - 36.0 g/dL [facility] MCV (RBC) [Entitic vol] 98.5 fL 80.0 - 100.[address] [facility] Monocytes (Bld) [#/Vol] 0.21 10*3/uL [facility] Monocytes/100 WBC (Bld) 4 % [facility] Neutrophils (Bld) [#/Vol] 1.47 10*3/uL [facility] Neutrophils/100 WBC (Bld) 28.1 % [facility] Nucleated RBC (Bld) [#/Vol] 0.07 10*3/uL High BANNERF [facility] Nucleated RBC/100 WBC (Bld) [Ratio] 1.3 % /[address] [facility] Platelet mean volume (Bld) [Entitic vol] 8.4 fL Low 9.0 - 12.[address] [facility] Platelets (Bld) [#/Vol] 270 10*3/uL [facility] RBC (Bld) [#/Vol] 3.4 10*6/uL Low 3.90 - 5.2 0 m/uL [facility] WBC (Bld) [#/Vol] 5.24 10*3/uL [facility] Basophils (Bld) [#/Vol] 10*3/uL Normal <0.11 [facility] Comment on above: Order Comment: Speci men Type: BLOOD SPECIMENOrdering Facility: [facility] Address: [address] [place] [address] Performed By: #### 5 7021-8 ####[facility] SPRINGFIELDLIA [id number] [place] [address] [place] Basophils/100 WBC (Bld) 0.2 % Normal [facility] Comment on above: Order Comment: Speci men Type: BLOOD SPECIMENOrdering Facility: [facility] Address: [address] [place] [address] Performed By: #### 5 7021-8 ####[facility] [id number] [place] [address] [place] Differential cell count method Nom (Bld) Auto Normal [facility] Comment on above: Order Comment: Speci men Type: BLOOD SPECIMENOrdering Facility: [facility] Address: [address] [place] [address] Performed By: #### 5 7021-8 ####[facility] HOSPITALA [id number] [place] [address] [place] Eosinophils (Bld) [#/Vol] 10*3/uL Normal <0.46 [facility] Comment on above: Order Comment: Speci men Type: BLOOD SPECIMENOrdering Facility: [facility] Address: [address] [place] [address] Performed By: #### 5 7021-8 ####[facility]ITALA [id number] [place] [address] [place] Eosinophils/100 WBC (Bld) 0.0 % Normal [facility] Comment on above: Order Comment: Speci men Type: BLOOD SPECIMENOrdering Facility: [facility] Address: [address] [place] [address] Performed By: #### 5 7021-8 ####[facility] IVONNENEW OXFORDNCSUZY [id number] [place] [address] [place] Erythrocyte distribution width (RBC) [Ratio] 13.3 % Normal 11.5-15.0 [facility] Comment on above: Order Comment: Speci men Type: BLOOD SPECIMENOrdering Facility: [facility] Address: [address] [place] [address] Performed By: #### 5 7021-8 ####[facility] [id number] [place] [address] [place] Hematocrit (Bld) [Volume fraction] 33.5 % Low 36.0-46.0 [facility] Comment on above: Order Comment: Speci men Type: BLOOD SPECIMENOrdering Facility: [facility] Address: [address] [place] [address] Performed By: #### 5 7021-8 ####[facility] [id number] [place] [address] [place] Hemoglobin (Bld) [Mass/Vol] 11.4 g/dL Low 11.5-15.5 [facility] Comment on above: Order Comment: Speci men Type: BLOOD SPECIMENOrdering Facility: [facility] Address: [address] [place] [address] Performed By: #### 5 7021-8 ####[facility] [id number] [place] [address] [place] Immature granulocytes (Bld) [#/Vol] 0.07 10*3/uL Normal <0.10 [facility] Comment on above: Order Comment: Speci men Type: BLOOD SPECIMENOrdering Facility: [facility] Address: [address] [place] [address] Performed By: #### 5 7021-8 ####[facility] CHARLOTTEANGIELIA [id number] [place] [address] [place] Immature granulocytes/100 WBC (Bld) 1.3 % Normal [facility] Comment on above: Order Comment: Speci men Type: BLOOD SPECIMENOrdering Facility: [facility] Address: [address] [place] [address] Performed By: #### 5 7021-8 ####[facility]TEANGIECEDAR [facility] [id number] [place] [address] [place] Lymphocytes (Bld) [#/Vol] 3.48 10*3/uL Normal 1.00-4.00 [facility] Comment on above: Order Comment: Speci men Type: BLOOD SPECIMENOrdering Facility: [facility] Address: [address] [place] [address] Performed By: #### 5 7021-8 ####[facility] [id number] [place] [address] [place] Lymphocytes/100 WBC (Bld) 66.4 % Normal [facility] Comment on above: Order Comment: Speci men Type: BLOOD SPECIMENOrdering Facility: [facility] Address: [address] [place] [address] Performed By: #### 5 7021-8 ####[facility]ITALA [id number] [place] [address] [place] MCH (RBC) [Entitic mass] 33.5 pg Normal 26.0-34.0 [facility] Comment on above: Order Comment: Speci men Type: BLOOD SPECIMENOrdering Facility: [facility] Address: [address] [place] [address] Performed By: #### 5 7021-8 ####[facility] CHARLOTTENCLI [id number] [place] [address] [place] MCHC (RBC) [Mass/Vol] 34.0 g/dL Normal 30.5-36.0 [facility] Comment on above: Order Comment: Speci men Type: BLOOD SPECIMENOrdering Facility: [facility] Address: [address] [place] [address] Performed By: #### 5 7021-8 ####[facility]OTTENCCED[facility] [id number] [place] [address] [place] MCV (RBC) [Entitic vol] 98.5 fL Normal 80.0-100.0 [facility] Comment on above: Order Comment: Speci men Type: BLOOD SPECIMENOrdering Facility: [facility] Address: [address] [place] [address] Performed By: #### 5 7021-8 ####[facility]ED[facility] [id number] [place] [address] [place] Monocytes (Bld) [#/Vol] 0.21 10*3/uL Normal <0.87 [facility] Comment on above: Order Comment: Speci men Type: BLOOD SPECIMENOrdering Facility: [facility] Address: [address] [place] [address] Performed By: #### 5 7021-8 ####[facility] CHARLOTTENCLI [id number] [place] [address] [place] Monocytes/100 WBC (Bld) 4.0 % Normal [facility] Comment on above: Order Comment: Speci men Type: BLOOD SPECIMENOrdering Facility: [facility] Address: [address] [place] [address] Performed By: #### 5 7021-8 ####[facility] [id number] [place] [address] [place] Neutrophils (Bld) [#/Vol] 1.47 10*3/uL Normal 1.45-7.50 [facility] Comment on above: Order Comment: Speci men Type: BLOOD SPECIMENOrdering Facility: [facility] Address: [address] [place] [address] Performed By: #### 5 7021-8 ####[facility] IVONNESOPHIELIA [id number] [place] [address] [place] Neutrophils/100 WBC (Bld) 28.1 % Normal [facility] Comment on above: Order Comment: Speci men Type: BLOOD SPECIMENOrdering Facility: [facility] Address: [address] [place] [address] Performed By: #### 5 7021-8 ####[facility]EN[facility]ED[facility] [id number] [place] [address] [place] Nucleated RBC (Bld) [#/Vol] 0.07 10*3/uL High <0.01 [facility] Comment on above: Order Comment: Speci men Type: BLOOD SPECIMENOrdering Facility: [facility] Address: [address] [place] [address] Performed By: #### 5 7021-8 ####[facility] [id number] [place] [address] [place] Nucleated RBC/100 WBC (Bld) [Ratio] 1.3 /100 WBC Normal [facility] Comment on above: Order Comment: Speci men Type: BLOOD SPECIMENOrdering Facility: [facility] Address: [address] [place] [address] Performed By: #### 5 7021-8 ####[facility] [id number] [place] [address] [place] Platelet mean volume (Bld) [Entitic vol] 8.4 fL Low 9.0-12.7 [facility] Comment on above: Order Comment: Speci men Type: BLOOD SPECIMENOrdering Facility: [facility] Address: [address] [place] [address] Performed By: #### 5 7021-8 ####[facility] [place]IE [id number] [place] [address] [place] Platelets (Bld) [#/Vol] 270 10*3/uL Normal 150-400 [facility] Comment on above: Order Comment: Speci men Type: BLOOD SPECIMENOrdering Facility: [facility] Address: [address] [place] [address] Performed By: #### 5 7021-8 ####[facility] [id number] [place] [address] [place] RBC (Bld) [#/Vol] 3.40 10*6/uL Low 3.90-5.20 [facility] Comment on above: Order Comment: Speci men Type: BLOOD SPECIMENOrdering Facility: [facility] Address: [address] [place] [address] Performed By: #### 5 7021-8 ####[facility] [id number] [place] [address] [place] WBC (Bld) [#/Vol] 5.24 10*3/uL Normal 3.70-11.00 [facility] Comment on above: Order Comment: Speci men Type: BLOOD SPECIMENOrdering Facility: [facility] Address: [address] [place] [address] Performed By: #### 5 7021-8 ####[facility] [id number] [place] [address] [place] Comprehensive metabolic 2000 panelOrdered By: Mer Velazquez on 03-09-2025 Albumin [Mass/Vol] 3.9 g/dL 3.9 - 4.9 g/dL [facility] ALP [Catalytic activity/Vol] 58 U/L 34 - 123 U/L [facility] ALT [Catalytic activity/Vol] 28 U/L 7 - 38 U/L [facility] Anion gap [Moles/Vol] 14 mmol/L 8 - 15 mmol/L [facility] AST [Catalytic activity/Vol] 14 U/L 13 - 35 U/L [facility] Bilirubin [Mass/Vol] 0.4 mg/dL 0.2 - 1 .3 mg/dL [facility] Calcium [Mass/Vol] 9.9 mg/dL 8.5 - 10. 2 mg/dL [facility] Chloride [Moles/Vol] 104 mmol/L 98 - 10 7 mmol/L [facility] CO2 [Moles/Vol] 22 mmol/L 22 - 30 mmol/L [facility] Creatinine [Mass/Vol] 0.75 mg/dL 0.58 - 0.96 mg/dL [facility] GFR/1.73 sq M.predicted among non-blacks MDRD (S/P/Bld) [Vol rate/Area] 86 mL/min/{1.73_m2} - PINF [facility] Comment on above: Estimated Glomerular Filtration [...] not accurately reflect actual GFR. Glucose [Mass/Vol] 99 mg/dL 74 - 99 mg/dL [facility] Comment on above: The [place] Diab[employer] s Association (ADA) provides guidance for [...] Standards of Medical Care in Diabetes 2016, [place] Diabetes Association. Diabetes Care. 2016.39(Suppl 1). Interpretation and review of laboratory results Abnormal [facility] Potassium [Moles/Vol] 3.9 mmol/L 3.7 - 5.1 mmol/L [facility] Protein [Mass/Vol] 6.3 g/dL 6.3 - 8.0 g/dL [facility] Sodium [Moles/Vol] 140 mmol/L 136 - 144 mmol/L [facility] Urea nitrogen [Mass/Vol] 23 mg/dL High 7 - 21 mg/dL [facility] Comprehensive metabolic 2000 panelon 03-09-2025 Albumin [Mass/Vol] 3.9 g/dL Normal 3.9-4.9 [facility] Comment on above: Order Comment: Speci men Type: BLOOD SPECIMENOrdering Facility: [facility] Address: [address] [place] [address] Performed By: #### 2 4323-8, ####[facility] ROS[facility] MILLTOWNCLIA [id number] [place] [address] [place] ALP [Catalytic activity/Vol] 58 U/L Normal 34-123 [facility] Comment on above: Order Comment: Speci men Type: BLOOD SPECIMENOrdering Facility: [facility] Address: [address] [place] [address] Performed By: #### 2 4323-8, ####[facility] MILLTOWNCLIA [id number] [place] [address] [place] ALT [Catalytic activity/Vol] 28 U/L Normal 7-38 [facility] Comment on above: Order Comment: Speci men Type: BLOOD SPECIMENOrdering Facility: [facility] Address: [address] [place] [address] Performed By: #### 2 4323-8, ####[facility] ROS[facility] MILLTOWNCLIA [id number] [place] [address] [place] Anion gap [Moles/Vol] 14 mmol/L Normal 8-15 [facility] Comment on above: Order Comment: Speci men Type: BLOOD SPECIMENOrdering Facility: [facility] Address: [address] [place] [address] Performed By: #### 2 4323-8, 11939-5 ####[facility] MILLTOWNCLIA [id number] [place] [address] [place] AST [Catalytic activity/Vol] 14 U/L Normal 13-35 [facility] Comment on above: Order Comment: Speci men Type: BLOOD SPECIMENOrdering Facility: [facility] Address: [address] [place] [address] Performed By: #### 2 4323-8, 25267-8 ####[facility] MILLTOWANGIELIA [id number] [place] [address] [place] Bilirubin [Mass/Vol] 0.4 mg/dL Normal 0.2-1.3 [facility] Comment on above: Order Comment: Speci men Type: BLOOD SPECIMENOrdering Facility: [facility] Address: [address] [place] [address] Performed By: #### 2 4323-8, ####[facility] [id number] [place] [address] [place] Calcium [Mass/Vol] 9.9 mg/dL Normal 8.5-10.2 [facility] Comment on above: Order Comment: Speci men Type: BLOOD SPECIMENOrdering Facility: [facility] Address: [address] [place] [address] Performed By: #### 2 4323-8, ####[facility] [id number] [place] [address] [place] Chloride [Moles/Vol] 104 mmol/L Normal 98-107 [facility] Comment on above: Order Comment: Speci men Type: BLOOD SPECIMENOrdering Facility: [facility] Address: [address] [place] [address] Performed By: #### 2 4323-8, ####[facility] MILLTOWNCLIA [id number] [place] [address] [place] CO2 [Moles/Vol] 22 mmol/L Normal 22-30 [facility] Comment on above: Order Comment: Speci men Type: BLOOD SPECIMENOrdering Facility: [facility] Address: [address] [place] [address] Performed By: #### 2 4323-8, ####[facility] [id number] [place] [address] [place] Creatinine [Mass/Vol] 0.75 mg/dL Normal 0.58-0.96 [facility] Comment on above: Order Comment: Speci men Type: BLOOD SPECIMENOrdering Facility: [facility] Address: [address] [place] [address] Performed By: #### 2 4323-8, ####[facility] [id number] [place] [address] [place] eGFRcr SerPlBld CKD-EPI 2020 86 mL/min/1.73m??? Normal >=60 [facility] Comment on above: Order Comment: Speci men Type: BLOOD SPECIMENOrdering Facility: [facility] Address: [address] [place] [address] Result Comment: Coco mated Glomerular Filtration Rate [...] actual GFR. Performed By: #### 2 4323-8, ####[facility] [id number] [place] [address] [place] Glucose [Mass/Vol] 99 mg/dL Normal 74-99 [facility] Comment on above: Order Comment: Speci men Type: BLOOD SPECIMENOrdering Facility: [facility] Address: [address] [place] [address] Result Comment: The [place] Diabetes Association (ADA) provides guidance for cutoff [...] Standards of Medical Care in Diabetes 2016, [place] Diabetes Association. Diabetes Care. 2016.39(Suppl 1). Performed By: #### 2 4323-8, ####[facility] [id number] [place] [address] [place] Potassium [Moles/Vol] 3.9 mmol/L Normal 3.7-5.1 [facility] Comment on above: Order Comment: Speci men Type: BLOOD SPECIMENOrdering Facility: [facility] Address: [address] [place], [place] [address] Performed By: #### 2 4323-8, ####[facility] [id number] [place] [address] [place] Protein [Mass/Vol] 6.3 g/dL Normal 6.3-8.0 [facility] Comment on above: Order Comment: Speci men Type: BLOOD SPECIMENOrdering Facility: [facility] Address: [address] [place], [place] [address] Performed By: #### 2 4323-8, ####[facility] [id number] [place] [address] [place] Sodium [Moles/Vol] 140 mmol/L Normal 136-144 [facility] Comment on above: Order Comment: Speci men Type: BLOOD SPECIMENOrdering Facility: [facility] Address: [address] [place] [address] Performed By: #### 2 4323-8, 17502-6 ####[facility] MONICANCLITrae [id number] [place] [address] [place] Urea nitrogen [Mass/Vol] 23 mg/dL High 7-21 [facility] Comment on above: Order Comment: Speci men Type: BLOOD SPECIMENOrdering Facility: [facility] Address: [address] [place] [address] Performed By: #### 2 4323-8, 16161-3 ####[facility] IVONNENEW OXFORDNCLIA [id number] [place] [address] [place] MAGNESIUMon 03-09-2025 Magnesium [Mass/Vol] 2.2 mg/dL 1.7 - 2 .3 mg/dL 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 When Was Last Pacemaker Check QUESTION #4 FULL TEXT: You/Your Family Experience fever (hyperthermia) with Anesthesia Last Oral Intake Last Oral intake: Last Oral Intake NPO since Meds taken in AM with sips of water? 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 Female Yes 03/09/25 11:40 HX of Motion Sickness No 03/09/25 11:40 HX of N/V After Surgery No 03/09/25 11:40 Non-Smoker Yes 03/09/25 11:40 Duration of Surgery greater Yes 03/09/25 11:40 than 60 minutes Number of Risk Factors 3 03/09/25 11:40 PONV Score Moderate Risk 03/09/25 11:40 Height Weight Height Weight: Anesthesia: Height Weight Height 5 ft 5 in 02/27/25 10:18 Respiratory Assessment Respiratory Assessment - installer metal flooring: Respiratory Tract Infection Hx - installer metal flooring Hx Respiratory Tract Infection No 03/09/25 11:40 STOP Sleep Apnea STOP Sleep Apnea - installer metal flooring: STOP Sleep Apnea - installer metal flooring Hx Hypertension Yes: NO MEDS PRESENTLY 03/09/25 [...] Tobacco Use History Tobacco Use History - installer metal 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: Tobacco Use History - installer metal 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 Specify any problems Hx of Preganancy in last 3 No 03/09/25 11:40 Months Nurse Filling Out Transfusion VCHRISTIN 03/09/25 11:40 Questions: Date: 03/09/25 03/09/25 11:40 Time: 11:41 03/09/25 11:40 Patient unable to answer at this time (ie. confused, unrespo /Reproduction History /Reproductive History - installer metal flooring: /Reproductive Hx- installer metal flooring Hx Now No 03/09/25 11:40 Gestational Age (in weeks): EDC: Hx Hx Para Hx Section SAB No 03/09/25 11:40 [facility] Medical History (Updated 03/09/25 @ 11:47 by Felicity Tim) History of stress test Wears glasses Post-menopausal Cancer Open wound History of steroid therapy Gastric reflux Non-smoker Hoarseness History of echocardiogram Cardiology follow-up encounter Breast cancer Hypertension Cervical paraspinal muscle spasm GERD (gastroesophageal reflux disease) Retinal detachment High cholesterol Hx of cataract UTI (urinary tract infection) History of back problems Environmental allergies Seasonal allergies Hemorrhoids Home Medications ???Medication ???Instructions ???Recorded ???Last Taken ???Type diphenhydramine HCl 25 mg capsule 50 mg PO Q8H PRN allergy symptoms 02/27/25 Unknown History (Benadryl) fluorometholone 0.1 % eye 1 drp LEFT EYE DAILY PRN PRN 02/27 Unknown History drops,suspension gabapentin 100 mg capsule 200 mg PO QHS 02/27/25 Unknown His tory pembrolizumab 50 m (more content not included)... Normal [facility] Magnesium SerPl-mCncon 03-09 Magnesium [Mass/Vol] 2.2 mg/dL Normal 1.7-2.3 [facility] Comment on above: Order Comment: Speci men Type: BLOOD SPECIMENOrdering Facility: [facility] Address: [address] [place] [address] Performed By: #### 2 4323-8, 77569-1 ####[facility] [id number] [place] [id number] [place] Magnesium [Mass/Vol]on 03-09 Interpretation and review of laboratory results Normal [facility] CNOVon 03-07-2025 CNOV Normal [facility] HISTORY PHYSICALon HISTORY PHYSICAL Normal [facility] CBC W Auto Differential pane l (Bld)on 03-01-2025 Basophils (Bld) [#/Vol] [facility] Basophils/100 WBC (Bld) 0.8 % [facility] Differential cell count method Nom (Bld) Auto [facility] Eosinophils (Bld) [#/Vol] [facility] Eosinophils/100 WBC (Bld) 0.4 % [facility] Erythrocyte distribution width (RBC) [Ratio] 12.6 % 11.5 - 15.0 % [facility] Hematocrit (Bld) [Volume fraction] 31.8 % Low 36.0 - 46.0 % [facility] Hemoglobin (Bld) [Mass/Vol] 11.2 g/dL Low 11.5 - 15.5 g/dL [facility] Immature granulocytes (Bld) [#/Vol] [facility] Immature granulocytes/100 WBC (Bld) 0.8 % [facility] Interpretation and review of laboratory results Abnormal [facility] Lymphocytes (Bld) [#/Vol] 1.29 10*3/uL [facility] Lymphocytes/100 WBC (Bld) 50.8 % [facility] MCH (RBC) [Entitic mass] 34.3 pg High 26.0 - 34.[address] [facility] MCHC (RBC) [Mass/Vol] 35.2 g/dL 30.5 - 36.0 g/dL [facility] MCV (RBC) [Entitic vol] 97.2 fL 80.0 - 100.[address] [facility] Monocytes (Bld) [#/Vol] 0.1 10*3/uL BANNERF [facility] Monocytes/100 WBC (Bld) 3.9 % [facility] Neutrophils (Bld) [#/Vol] 1.1 10*3/uL Low [facility] Neutrophils/100 WBC (Bld) 43.3 % [facility] Nucleated RBC (Bld) [#/Vol] [facility] Nucleated RBC/100 WBC (Bld) [Ratio] 0 % /[address] [facility] Platelet mean volume (Bld) [Entitic vol] 9.1 fL 9.0 - 12.[address] [facility] Platelets (Bld) [#/Vol] 142 10*3/uL Low [facility] RBC (Bld) [#/Vol] 3.27 10*6/uL Low 3.90 - 5.2 0 m/uL [facility] WBC (Bld) [#/Vol] 2.54 10*3/uL Low [facility] Basophils (Bld) [#/Vol] 10*3/uL Normal <0.11 [facility] Comment on above: Order Comment: Speci men Type: BLOOD SPECIMENOrdering Facility: [facility] Address: [address] [place] [address] Performed By: #### 5 7021-8 ####[facility] MILLTOWNCLIA [id number] [place] [address] [place] Basophils/100 WBC (Bld) 0.8 % Normal [facility] Comment on above: Order Comment: Speci men Type: BLOOD SPECIMENOrdering Facility: [facility] Address: [address] [place] [address] Performed By: #### 5 7021-8 ####[facility] MILLWNCLIA [id number] [place] [address] [place] Differential cell count method Nom (Bld) Auto Normal [facility] Comment on above: Order Comment: Speci men Type: BLOOD SPECIMENOrdering Facility: [facility] Address: [address] [place] [address] Performed By: #### 5 7021-8 ####[facility] MILLTOWNCLIA [id number] [place] [address] [place] Eosinophils (Bld) [#/Vol] 10*3/uL Normal <0.46 [facility] Comment on above: Order Comment: Speci men Type: BLOOD SPECIMENOrdering Facility: [facility] Address: [address] [place] [address] Performed By: #### 5 7021-8 ####[facility] MILLWNCLIA [id number] [place] [address] [place] Eosinophils/100 WBC (Bld) 0.4 % Normal [facility] Comment on above: Order Comment: Speci men Type: BLOOD SPECIMENOrdering Facility: [facility] Address: [address] [place] [address] Performed By: #### 5 7021-8 ####[facility] [id number] [place] [address] [place] Erythrocyte distribution width (RBC) [Ratio] 12.6 % Normal 11.5-15.0 [facility] Comment on above: Order Comment: Speci men Type: BLOOD SPECIMENOrdering Facility: [facility] Address: [address] [place] [address] Performed By: #### 5 7021-8 ####[facility] [id number] [place] [address] [place] Hematocrit (Bld) [Volume fraction] 31.8 % Low 36.0-46.0 [facility] Comment on above: Order Comment: Speci men Type: BLOOD SPECIMENOrdering Facility: [facility] Address: [address] [place] [address] Performed By: #### 5 7021-8 ####[facility] [id number] [place] [address] [place] Hemoglobin (Bld) [Mass/Vol] 11.2 g/dL Low 11.5-15.5 [facility] Comment on above: Order Comment: Speci men Type: BLOOD SPECIMENOrdering Facility: [facility] Address: [address] [place] [address] Performed By: #### 5 7021-8 ####[facility] [id number] [place] [address] [place] Immature granulocytes (Bld) [#/Vol] 10*3/uL Normal <0.10 [facility] Comment on above: Order Comment: Speci men Type: BLOOD SPECIMENOrdering Facility: [facility] Address: [address] [place] [address] Performed By: #### 5 7021-8 ####[facility] [id number] [place] [address] [place] Immature granulocytes/100 WBC (Bld) 0.8 % Normal [facility] Comment on above: Order Comment: Speci men Type: BLOOD SPECIMENOrdering Facility: [facility] Address: [address] [place] [address] Performed By: #### 5 7021-8 ####[facility] [id number] [place] [address] [place] Lymphocytes (Bld) [#/Vol] 1.29 10*3/uL Normal 1.00-4.00 [facility] Comment on above: Order Comment: Speci men Type: BLOOD SPECIMENOrdering Facility: [facility] Address: [address] [place] [address] Performed By: #### 5 7021-8 ####[facility] [id number] [place] [address] [place] Lymphocytes/100 WBC (Bld) 50.8 % Normal [facility] Comment on above: Order Comment: Speci men Type: BLOOD SPECIMENOrdering Facility: [facility] Address: [address] [place] [address] Performed By: #### 5 7021-8 ####[facility] [id number] [place] [address] [place] MCH (RBC) [Entitic mass] 34.3 pg High 26.0-34.0 [facility] Comment on above: Order Comment: Speci men Type: BLOOD SPECIMENOrdering Facility: [facility] Address: [address] [place] [address] Performed By: #### 5 7021-8 ####[facility] MILLWNCLIA [id number] [place] [address] [place] MCHC (RBC) [Mass/Vol] 35.2 g/dL Normal 30.5-36.0 [facility] Comment on above: Order Comment: Speci men Type: BLOOD SPECIMENOrdering Facility: [facility] Address: [address] [place] [address] Performed By: #### 5 7021-8 ####[facility] [id number] [place] [address] [place] MCV (RBC) [Entitic vol] 97.2 fL Normal 80.0-100.0 [facility] Comment on above: Order Comment: Speci men Type: BLOOD SPECIMENOrdering Facility: [facility] Address: [address] [place] [address] Performed By: #### 5 7021-8 ####[facility] [id number] [place] [address] [place] Monocytes (Bld) [#/Vol] 0.10 10*3/uL Normal <0.87 [facility] Comment on above: Order Comment: Speci men Type: BLOOD SPECIMENOrdering Facility: [facility] Address: [address] [place] [address] Performed By: #### 5 7021-8 ####[facility] [id number] [place] [address] [place] Monocytes/100 WBC (Bld) 3.9 % Normal [facility] Comment on above: Order Comment: Speci men Type: BLOOD SPECIMENOrdering Facility: [facility] Address: [address] [place] [address] Performed By: #### 5 7021-8 ####[facility] [id number] [place] [address] [place] Neutrophils (Bld) [#/Vol] 1.10 10*3/uL Low 1.45-7.50 [facility] Comment on above: Order Comment: Speci men Type: BLOOD SPECIMENOrdering Facility: [facility] Address: [address] [place] [address] Performed By: #### 5 7021-8 ####[facility] SPRINGFIELDLIA [id number] [place] [address] [place] Neutrophils/100 WBC (Bld) 43.3 % Normal [facility] Comment on above: Order Comment: Speci men Type: BLOOD SPECIMENOrdering Facility: [facility] Address: [address] [place] [address] Performed By: #### 5 7021-8 ####[facility] [id number] [place] [address] [place] Nucleated RBC (Bld) [#/Vol] 10*3/uL Normal <0.01 [facility] Comment on above: Order Comment: Speci men Type: BLOOD SPECIMENOrdering Facility: [facility] Address: [address] [place] [address] Performed By: #### 5 7021-8 ####[facility]ITAL[facility] [id number] [place] [address] [place] Nucleated RBC/100 WBC (Bld) [Ratio] 0.0 /100 WBC Normal [facility] Comment on above: Order Comment: Speci men Type: BLOOD SPECIMENOrdering Facility: [facility] Address: [address] [place] [address] Performed By: #### 5 7021-8 ####[facility] CHARLOTTENCLI [id number] [place] [address] [place] Platelet mean volume (Bld) [Entitic vol] 9.1 fL Normal 9.0-12.7 [facility] Comment on above: Order Comment: Speci men Type: BLOOD SPECIMENOrdering Facility: [facility] Address: [address] [place] [address] Performed By: #### 5 7021-8 ####[facility] VALERIANOWNCLIA [id number] [place] [address] [place] Platelets (Bld) [#/Vol] 142 10*3/uL Low 150-400 [facility] Comment on above: Order Comment: Speci men Type: BLOOD SPECIMENOrdering Facility: [facility] Address: [address] [place] [address] Performed By: #### 5 7021-8 ####[facility] CHARLOTTENCLIA [id number] [place] [address] [place] RBC (Bld) [#/Vol] 3.27 10*6/uL Low 3.90-5.20 [facility] Comment on above: Order Comment: Speci men Type: BLOOD SPECIMENOrdering Facility: [facility] Address: [address] [place] [address] Performed By: #### 5 7021-8 ####[facility] CHARLOTTENCLIA [id number] [place] [address] [place] WBC (Bld) [#/Vol] 2.54 10*3/uL Low 3.70-11.00 [facility] Comment on above: Order Comment: Speci men Type: BLOOD SPECIMENOrdering Facility: [facility] Address: [address] [place] [address] Performed By: #### 5 7021-8 ####[facility] CHARLOTTENCLIA [id number] [place] [address] [place] CNOVSPon 03-01-2025 CNOVSP Normal [facility] metabolic 2000 panelOrdered By: Meeta Lau on 03-01-2025 Albumin [Mass/Vol] 4.1 g/dL 3.9 - 4.9 g/dL [facility] ALP [Catalytic activity/Vol] 63 U/L 34 - 123 U/L [facility] ALT [Catalytic activity/Vol] 30 U/L 7 - 38 U/L [facility] Anion gap [Moles/Vol] 14 mmol/L 8 - 15 mmol/L [facility] AST [Catalytic activity/Vol] 21 U/L 13 - 35 U/L [facility] Bilirubin [Mass/Vol] 0.5 mg/dL 0.2 - 1 .3 mg/dL [facility] Calcium [Mass/Vol] 9.8 mg/dL 8.5 - 10. 2 mg/dL [facility] Chloride [Moles/Vol] 105 mmol/L 98 - 10 7 mmol/L [facility] CO2 [Moles/Vol] 21 mmol/L Low 22 - 30 mmol/L [facility] Creatinine [Mass/Vol] 0.64 mg/dL 0.58 - 0.96 mg/dL [facility] GFR/1.73 sq M.predicted among non-blacks MDRD (S/P/Bld) [Vol rate/Area] 95 mL/min/{1.73_m2} - PINF [facility] Comment on above: Estimated Glomerular Filtration [...] 102 mg/dL High 74 - 99 mg/dL [facility] Comment on above: The [place] Diab[employer] Association (ADA) provides guidance for [...] Standards of Medical Care in Diabetes 2016, [place] [employer]. Diabetes Care. 2016.39(Suppl 1). Interpretation and review of laboratory results Abnormal [facility] Potassium [Moles/Vol] 4 mmol/L 3.7 - 5.1 mmol/L [facility] Protein [Mass/Vol] 6.5 g/dL 6.3 - 8.0 g/dL [facility] Sodium [Moles/Vol] 140 mmol/L 136 - 144 mmol/L [facility] Urea nitrogen [Mass/Vol] 12 mg/dL 7 - 21 mg/dL [facility] Comprehensive metabolic 2000 panelon 03-01-2025 Albumin [Mass/Vol] 4.1 g/dL Normal 3.9-4.9 [facility] Comment on above: Order Comment: Speci men Type: BLOOD SPECIMENOrdering Facility: [facility] Address: [address] [place] [address] Performed By: #### 2 4323-8, 70674-7 ####[facility] MILLWANGIELIA [id number] [place] [address] [place] ALP [Catalytic activity/Vol] 63 U/L Normal 34-123 [facility] Comment on above: Order Comment: Terii men Type: BLOOD SPECIMENOrdering Facility: [facility] Address: [address] [place] [address] Performed By: #### 2 4323-8, ####[facility] P[facility] RIDGEWANGIELIA [id number] [place] [address] [place] ALT [Catalytic activity/Vol] 30 U/L Normal 7-38 [facility] Comment on above: Order Comment: Speci men Type: BLOOD SPECIMENOrdering Facility: [facility] Address: [address] [place] [address] Performed By: #### 2 4323-8, ####[facility] MILLWNCLIA [id number] [place] [address] [place] Anion gap [Moles/Vol] 14 mmol/L Normal 8-15 [facility] Comment on above: Order Comment: Speci men Type: BLOOD SPECIMENOrdering Facility: [facility] Address: [address] [place] [address] Performed By: #### 2 4323-8, ####[facility] [id number] [place] [address] [place] AST [Catalytic activity/Vol] 21 U/L Normal 13-35 [facility] Comment on above: Order Comment: Speci men Type: BLOOD SPECIMENOrdering Facility: [facility] Address: [address] [place] [address] Performed By: #### 2 4323-8, ####[facility] [id number] [place] [address] [place] Bilirubin [Mass/Vol] 0.5 mg/dL Normal 0.2-1.3 [facility] Comment on above: Order Comment: Speci men Type: BLOOD SPECIMENOrdering Facility: [facility] Address: [address] [place] [address] Performed By: #### 2 4323-8, ####[facility] CHARLOTTENCA [id number] [place] [address] [place] Calcium [Mass/Vol] 9.8 mg/dL Normal 8.5-10.2 [facility] Comment on above: Order Comment: Speci men Type: BLOOD SPECIMENOrdering Facility: [facility] Address: [address] [place], [place] [address] Performed By: #### 2 4323-8, ####[facility] CHARLOTTENCLIA [id number] [place] [address] [place] Chloride [Moles/Vol] 105 mmol/L Normal 98-107 [facility] Comment on above: Order Comment: Speci men Type: BLOOD SPECIMENOrdering Facility: [facility] Address: [address] [place] [address] Performed By: #### 2 4323-8, 74867-5 ####[facility] ROSY BALWNCLIA [id number] [place] [address] [place] CO2 [Moles/Vol] 21 mmol/L Low 22-30 [facility] Comment on above: Order Comment: Speci men Type: BLOOD SPECIMENOrdering Facility: [facility] Address: [address] [place] [address] Performed By: #### 2 4323-8, 21491-2 ####[facility] IVONNEWNCLIA [id number] [address] [place] Creatinine [Mass/Vol] 0.64 mg/dL Normal 0.58-0.96 [facility] Comment on above: Order Comment: Speci men Type: BLOOD SPECIMENOrdering Facility: [facility] Address: [address] [place] [address] Performed By: #### 2 4323-8, 38014-7 ####[facility] CHARLOTTENCLIA [id number] [place] [address] [place] eGFRcr SerPlBld CKD-EPI 2020 95 mL/min/1.73m??? Normal >=60 [facility] Comment on above: Order Comment: Speci men Type: BLOOD SPECIMENOrdering Facility: [facility] Address: [address] [place] [address] Result Comment: Coco mated Glomerular Filtration Rate [...] actual GFR. Performed By: #### 2 4323-8, 95336-8 ####[facility] PINE RIDGEWNCA [id number] [place] [address] [place] Glucose [Mass/Vol] 102 mg/dL High 74-99 [facility] Comment on above: Order Comment: Speci men Type: BLOOD SPECIMENOrdering Facility: [facility] Address: [address] [place], [place] [address] Result Comment: The [place] Diabetes Association (ADA) provides guidance for cutoff [...] Standards of Medical Care in Diabetes 2016, [place] Diabetes [employer]. Diabetes Care. 2016.39(Suppl 1). Performed By: #### 2 4323-8, ####[facility] PINE RIDGEWNCTrae [id number] [place] [address] [place] Potassium [Moles/Vol] 4.0 mmol/L Normal 3.7-5.1 [facility] Comment on above: Order Comment: Speci men Type: BLOOD SPECIMENOrdering Facility: [facility] Address: [address] [place] [address] Performed By: #### 2 4323-8, ####[facility] CHARLOTTENCLITrae [id number] [place] [address] [place] Protein [Mass/Vol] 6.5 g/dL Normal 6.3-8.0 [facility] Comment on above: Order Comment: Speci men Type: BLOOD SPECIMENOrdering Facility: [facility] Address: [address] [place], [place] [address] Performed By: #### 2 4323-8, ####[facility] MILLTOWNCLIA [id number] [place] [address] [place] Sodium [Moles/Vol] 140 mmol/L Normal 136-144 [facility] Comment on above: Order Comment: Speci men Type: BLOOD SPECIMENOrdering Facility: [facility] Address: [address] [place] [address] Performed By: #### 2 4323-8, 25339-4 ####[facility] IVONNEWNMLIA [id number] [place] [address] [place] Urea nitrogen [Mass/Vol] 12 mg/dL Normal 7-21 [facility] Comment on above: Order Comment: Speci men Type: BLOOD SPECIMENOrdering Facility: [facility] Address: [address] [place] [address] Performed By: #### 2 4323-8, 93085-5 ####[facility] SPRINGFIELDLIA [id number] [place] [address] [place] Cortis SerPl-mCncon 03-01-20 Cortisol [Mass/Vol] 13.3 ug/dL Normal 4.8-19.5 [facility] Comment on above: Order Comment: Speci men Type: BLOOD SPECIMENOrdering Facility: [facility] Address: [address] [place] [address] Result Comment: Prov ided reference range is from 6-10 AM sample collection time.Cortisol Reference Range: 6-10 AM = 4.8-19.5 ug/dL, 4-8 PM = 2.5-11.9 ug/dL Performed By: #### 3 024-7, 3016-3, 2143-6 ####[facility] LABCLIA [id number] [place] [address] [place] MAGNESIUMon 03-01-2025 Magnesium [Mass/Vol] 2.1 mg/dL 1.7 - 2 .3 mg/dL [facility] Magnesium SerPl-mCncon 03-01 Magnesium [Mass/Vol] 2.1 mg/dL Normal 1.7-2.3 [facility] Comment on above: Order Comment: Speci men Type: BLOOD SPECIMENOrdering Facility: [facility] Address: [address] [place] [address] Performed By: #### 2 4323-8, 17508-5 ####[facility] SPRINGFIELDLIA [id number] [place] [address] [place] Magnesium [Mass/Vol]on 03-01 Interpretation and review of laboratory results Normal [facility] No Panel InformationOrdered By: Meeta Lau on 03-01-[address] [facility] T4 Free SerPl-mCncon 025 Free T4 [Mass/Vol] 1.0 ng/dL Normal 0.9-1.7 [facility] Comment on above: Order Comment: Speci men Type: BLOOD SPECIMENOrdering Facility: [facility] Address: [address] [place] [address] Performed By: #### 3 024-7, 3016-3, 2142-6 ####[facility] LABCLIA [id number] [place] [id number] [place] TSH SerPl-aCncon 03-01-2025 TSH Qn 7.100 m[IU]/L High 0.270-4.200 [facility] Comment on above: Order Comment: Speci men Type: BLOOD SPECIMENOrdering Facility: [facility] Address: [address] [place] [address] Performed By: #### 3 024-7, 3016-3, 2142-6 ####[facility] LABIA [id number] [place] [id number] [place] Emergency Department Summary on 02-27-2025 Emergency Department Summary [facility] Medical Records Department [address] [place] [address] Emergency Department Summary 02/27/25 MR#: [id number] Acct: [id number] Name: LIZ ROBLES Rep #: [id number] : 1955 69 From: [place] Castro MD PCP: YEISON Vargas Status:PRE ER Location: ED HPI History of Present Illness [...] has no documented fever. She has no respiratory or urologic symptoms. Prior similar symptoms: No Recent Illness/Hospitalization: No PFSH PFSH Medical History Breast cancer Hypertension Cervical paraspinal muscle spasm GERD (gastroesophageal reflux disease) Retinal detachment High cholesterol Hx of cataract UTI (urinary tract infection) History of back problems Environmental allergies Seasonal allergies Hemorrhoids Home Medications ???Medication ???Instructions ???Recorded ???Last Taken ???Type omeprazole 40 mg capsule,delayed 40 mg PO DAILY #30 caps 12/03/21 U nknown Rx release diphenhydramine HCl 25 mg capsule 50 mg PO Q8H PRN allergy symptoms 02/27/25 Unknown History (Benadryl) fluorometholone 0.1 % eye 1 drp LEFT EYE DAILY 02/27/25 Unkn own History drops,suspension gabapentin 100 mg capsule 200 mg PO TID 02/27/25 Unknown His tory pembrolizumab 50 mg intravenous 200 mg IV 02/27/25 Unknown History solution promethazine 25 mg tablet 25 mg PO TID PRN nausea and Unknown History vomiting Allergy/AdvReac Type Severity Reaction Status Date / Time Sfukpul-LZP-SoO Reductase AdvReac Pain in Verified 02/27/25 10:20 [...] for edema Neuro oriented x3 and CN's II-XI (more content not included)... Normal [facility] CNPNon 02-24-2025 CNPN Normal [facility] CBC W Auto Differential pane l (Bld)on 02-23-2025 Basophils (Bld) [#/Vol] 0.03 10*3/uL [facility] Basophils/100 WBC (Bld) 1.1 % [facility] Differential cell count method Nom (Bld) Auto [facility] Eosinophils (Bld) [#/Vol] [facility] Eosinophils/100 WBC (Bld) 0.7 % [facility] Erythrocyte distribution width (RBC) [Ratio] 12.3 % 11.5 - 15.0 % [facility] Hematocrit (Bld) [Volume fraction] 33.1 % Low 36.0 - 46.0 % [facility] Hemoglobin (Bld) [Mass/Vol] 11.7 g/dL 11.5 - 15.5 g/dL [facility] Immature granulocytes (Bld) [#/Vol] [facility] Immature granulocytes/100 WBC (Bld) 0.4 % [facility] Interpretation and review of laboratory results Abnormal [facility] Lymphocytes (Bld) [#/Vol] 1.32 10*3/uL [facility] Lymphocytes/100 WBC (Bld) 48 % [facility] MCH (RBC) [Entitic mass] 33.7 pg 26.0 - 34.[address] [facility] MCHC (RBC) [Mass/Vol] 35.3 g/dL 30.5 - 36.0 g/dL [facility] MCV (RBC) [Entitic vol] 95.4 fL 80.0 - 100.[address] [facility] Monocytes (Bld) [#/Vol] 0.14 10*3/uL [facility] Monocytes/100 WBC (Bld) 5.1 % [facility] Neutrophils (Bld) [#/Vol] 1.23 10*3/uL Low [facility] Neutrophils/100 WBC (Bld) 44.7 % [facility] Nucleated RBC (Bld) [#/Vol] [facility] Nucleated RBC/100 WBC (Bld) [Ratio] 0 % /[address] [facility] Platelet mean volume (Bld) [Entitic vol] 9.4 fL 9.0 - 12.[address] [facility] Platelets (Bld) [#/Vol] 115 10*3/uL Low [facility] RBC (Bld) [#/Vol] 3.47 10*6/uL Low 3.90 - 5.2 0 m/uL [facility] WBC (Bld) [#/Vol] 2.75 10*3/uL Low [facility] Basophils (Bld) [#/Vol] 0.03 10*3/uL Normal <0.11 [facility] Comment on above: Order Comment: Speci men Type: BLOOD SPECIMENOrdering Facility: [facility] Address: [address] [place] [address] Performed By: #### 5 7021-8 ####[facility] MILLWNCLIA [id number] [place] [address] [place] Basophils/100 WBC (Bld) 1.1 % Normal [facility] Comment on above: Order Comment: Speci men Type: BLOOD SPECIMENOrdering Facility: [facility] Address: [address] [place] [address] Performed By: #### 5 7021-8 ####[facility] SPRINGFIELDLIA [id number] [place] [address] [place] Differential cell count method Nom (Bld) Auto Normal [facility] Comment on above: Order Comment: Speci men Type: BLOOD SPECIMENOrdering Facility: [facility] Address: [address] [place] [address] Performed By: #### 5 7021-8 ####[facility] MILLTOWNCLIA [id number] [place] [address] [place] Eosinophils (Bld) [#/Vol] 10*3/uL Normal <0.46 [facility] Comment on above: Order Comment: Speci men Type: BLOOD SPECIMENOrdering Facility: [facility] Address: [address] [place] [address] Performed By: #### 5 7021-8 ####[facility] MILLTOWNCLIA [id number] [place] [address] [place] Eosinophils/100 WBC (Bld) 0.7 % Normal [facility] Comment on above: Order Comment: Speci men Type: BLOOD SPECIMENOrdering Facility: [facility] Address: [address] [place] [address] Performed By: #### 5 7021-8 ####[facility]TEANGIECED[facility] [id number] [place] [address] [place] Erythrocyte distribution width (RBC) [Ratio] 12.3 % Normal 11.5-15.0 [facility] Comment on above: Order Comment: Speci men Type: BLOOD SPECIMENOrdering Facility: [facility] Address: [address] [place] [address] Performed By: #### 5 7021-8 ####[facility]ANGIEC[facility] [id number] [place] [address] [place] Hematocrit (Bld) [Volume fraction] 33.1 % Low 36.0-46.0 [facility] Comment on above: Order Comment: Speci men Type: BLOOD SPECIMENOrdering Facility: [facility] Address: [address] [place] [address] Performed By: #### 5 7021-8 ####[facility] SPRINGFIELDLI [id number] [place] [address] [place] Hemoglobin (Bld) [Mass/Vol] 11.7 g/dL Normal 11.5-15.5 [facility] Comment on above: Order Comment: Speci men Type: BLOOD SPECIMENOrdering Facility: [facility] Address: [address] [place] [address] Performed By: #### 5 7021-8 ####[facility] CHARLOTTENCLI [id number] [place] [address] [place] Immature granulocytes (Bld) [#/Vol] 10*3/uL Normal <0.10 [facility] Comment on above: Order Comment: Speci men Type: BLOOD SPECIMENOrdering Facility: [facility] Address: [address] [place] [address] Performed By: #### 5 7021-8 ####[facility] IVONNEMARSHAA [id number] [place] [address] [place] Immature granulocytes/100 WBC (Bld) 0.4 % Normal [facility] Comment on above: Order Comment: Speci men Type: BLOOD SPECIMENOrdering Facility: [facility] Address: [address] [place] [address] Performed By: #### 5 7021-8 ####[facility] [id number] [place] [address] [place] Lymphocytes (Bld) [#/Vol] 1.32 10*3/uL Normal 1.00-4.00 [facility] Comment on above: Order Comment: Speci men Type: BLOOD SPECIMENOrdering Facility: [facility] Address: [address] [place] [address] Performed By: #### 5 7021-8 ####[facility] [id number] [place] [address] [place] Lymphocytes/100 WBC (Bld) 48.0 % Normal [facility] Comment on above: Order Comment: Speci men Type: BLOOD SPECIMENOrdering Facility: [facility] Address: [address] [place] [address] Performed By: #### 5 7021-8 ####[facility] H[facility]PITALA [id number] [place] [address] [place] MCH (RBC) [Entitic mass] 33.7 pg Normal 26.0-34.0 [facility] Comment on above: Order Comment: Speci men Type: BLOOD SPECIMENOrdering Facility: [facility] Address: [address] [place] [address] Performed By: #### 5 7021-8 ####[facility] RIDGEWNCLIA [id number] [place] [address] [place] MCHC (RBC) [Mass/Vol] 35.3 g/dL Normal 30.5-36.0 [facility] Comment on above: Order Comment: Speci men Type: BLOOD SPECIMENOrdering Facility: [facility] Address: [address] [place] [address] Performed By: #### 5 7021-8 ####[facility] CHARLOTTENCLIA [id number] [place] [address] [place] MCV (RBC) [Entitic vol] 95.4 fL Normal 80.0-100.0 [facility] Comment on above: Order Comment: Speci men Type: BLOOD SPECIMENOrdering Facility: [facility] Address: [address] [place] [address] Performed By: #### 5 7021-8 ####[facility] CHARLOTTENCA [id number] [place] [address] [place] Monocytes (Bld) [#/Vol] 0.14 10*3/uL Normal <0.87 [facility] Comment on above: Order Comment: Speci men Type: BLOOD SPECIMENOrdering Facility: [facility] Address: [address] [place] [address] Performed By: #### 5 7021-8 ####[facility] CHARLOTTENCLIA [id number] [address] [place] Monocytes/100 WBC (Bld) 5.1 % Normal [facility] Comment on above: Order Comment: Speci men Type: BLOOD SPECIMENOrdering Facility: [facility] Address: [address] [place], [place] [address] Performed By: #### 5 7021-8 ####[facility] CHARLOTTENCLIA [id number] [place] [id number] [place] Neutrophils (Bld) [#/Vol] 1.23 10*3/uL Low 1.45-7.50 [facility] Comment on above: Order Comment: Speci men Type: BLOOD SPECIMENOrdering Facility: [facility] [facility] Address: [address] [place] [address] Performed By: #### 5 7021-8 ####[facility] [id number] [place] [address] [place] Neutrophils/100 WBC (Bld) 44.7 % Normal [facility] Comment on above: Order Comment: Speci men Type: BLOOD SPECIMENOrdering Facility: [facility] Address: [address] [place] [address] Performed By: #### 5 7021-8 ####[facility] [id number] [place] [address] [place] Nucleated RBC (Bld) [#/Vol] 10*3/uL Normal <0.01 [facility] Comment on above: Order Comment: Speci men Type: BLOOD SPECIMENOrdering Facility: [facility] Address: [address] [place] [address] Performed By: #### 5 7021-8 ####[facility] [id number] [place] [address] [place] Nucleated RBC/100 WBC (Bld) [Ratio] 0.0 /100 WBC Normal [facility] Comment on above: Order Comment: Speci men Type: BLOOD SPECIMENOrdering Facility: [facility] Address: [address] [place] [address] Performed By: #### 5 7021-8 ####[facility] [id number] [place] [address] [place] Platelet mean volume (Bld) [Entitic vol] 9.4 fL Normal 9.0-12.7 [facility] Comment on above: Order Comment: Speci men Type: BLOOD SPECIMENOrdering Facility: [facility] Address: [address] [place] [address] Performed By: #### 5 7021-8 ####[facility] MONICANCLIA [id number] [place] [address] [place] Platelets (Bld) [#/Vol] 115 10*3/uL Low 150-400 [facility] Comment on above: Order Comment: Speci men Type: BLOOD SPECIMENOrdering Facility: [facility] Address: [address] [place] [address] Performed By: #### 5 7021-8 ####[facility] IVONNENEW OXFORDNCLIA [id number] [place] [address] [place] RBC (Bld) [#/Vol] 3.47 10*6/uL Low 3.90-5.20 [facility] Comment on above: Order Comment: Speci men Type: BLOOD SPECIMENOrdering Facility: [facility] Address: [address] [place] [address] Performed By: #### 5 7021-8 ####[facility] [id number] [place] [address] [place] WBC (Bld) [#/Vol] 2.75 10*3/uL Low 3.70-11.00 [facility] Comment on above: Order Comment: Speci men Type: BLOOD SPECIMENOrdering Facility: [facility] Address: [address] [place] [address] Performed By: #### 5 7021-8 ####[facility] [id number] [place] [address] [place] Comprehensive metabolic 2000 panelOrdered By: Mer Velazquez on 02-23-2025 Albumin [Mass/Vol] 4 g/dL 3.9 - 4.9 g/dL [facility] ALP [Catalytic activity/Vol] 62 U/L 34 - 123 U/L [facility] ALT [Catalytic activity/Vol] 26 U/L 7 - 38 U/L [facility] Anion gap [Moles/Vol] 9 mmol/L 8 - 15 mmol/L [facility] AST [Catalytic activity/Vol] 18 U/L 13 - 35 U/L [facility] Bilirubin [Mass/Vol] 0.5 mg/dL 0.2 - 1 .3 mg/dL [facility] Calcium [Mass/Vol] 9.8 mg/dL 8.5 - 10. 2 mg/dL [facility] Chloride [Moles/Vol] 106 mmol/L 98 - 10 7 mmol/L [facility] CO2 [Moles/Vol] 24 mmol/L 22 - 30 mmol/L [facility] Creatinine [Mass/Vol] 0.75 mg/dL 0.58 - 0.96 mg/dL [facility] GFR/1.73 sq M.predicted among non-blacks MDRD (S/P/Bld) [Vol rate/Area] 86 mL/min/{1.73_m2} - PINF [facility] Comment on above: Estimated Glomerular Filtration [...] 113 mg/dL High 74 - 99 mg/dL [facility] Comment on above: The [place] Diab[employer] Association (ADA) provides guidance for [...] Standards of Medical Care in Diabetes 2016, [place] [employer]. Diabetes Care. 2016.39(Suppl 1). Interpretation and review of laboratory results Abnormal [facility] Potassium [Moles/Vol] 3.8 mmol/L 3.7 - 5.1 mmol/L [facility] Protein [Mass/Vol] 6.3 g/dL 6.3 - 8.0 g/dL [facility] Sodium [Moles/Vol] 139 mmol/L 136 - 144 mmol/L [facility] Urea nitrogen [Mass/Vol] 16 mg/dL 7 - 21 mg/dL [facility] Comprehensive metabolic 2000 panelon 02-23-2025 Albumin [Mass/Vol] 4.0 g/dL Normal 3.9-4.9 [facility] Comment on above: Order Comment: Speci men Type: BLOOD SPECIMENOrdering Facility: [facility] Address: [address] [place] [address] Performed By: #### 1 9123-9, 59218-4 ####[facility] [id number] [place] [address] [place] ALP [Catalytic activity/Vol] 62 U/L Normal 34-123 [facility] Comment on above: Order Comment: Speci men Type: BLOOD SPECIMENOrdering Facility: [facility] Address: [address] [place] [address] Performed By: #### 1 9123-9, 25809-9 ####[facility] [id number] [place] [address] [place] ALT [Catalytic activity/Vol] 26 U/L Normal 7-38 [facility] Comment on above: Order Comment: Speci men Type: BLOOD SPECIMENOrdering Facility: [facility] Address: [address] [place], [place] [address] Performed By: #### 1 9123-9, 91543-6 ####[facility] [id number] [place] [address] [place] Anion gap [Moles/Vol] 9 mmol/L Normal 8-15 [facility] Comment on above: Order Comment: Speci men Type: BLOOD SPECIMENOrdering Facility: [facility] Address: [address] [place] [address] Performed By: #### 1 9123-9, 49433-4 ####[facility] ROSY FELI [id number] [place] [address] [place] AST [Catalytic activity/Vol] 18 U/L Normal 13-35 [facility] Comment on above: Order Comment: Speci men Type: BLOOD SPECIMENOrdering Facility: [facility] Address: [address] [place] [address] Performed By: #### 1 9123-9, 33664-9 ####[facility] MONICAANGIESUZY [id number] [place] [address] [place] Bilirubin [Mass/Vol] 0.5 mg/dL Normal 0.2-1.3 [facility] Comment on above: Order Comment: Speci men Type: BLOOD SPECIMENOrdering Facility: [facility] Address: [address] [place] [address] Performed By: #### 1 9123-9, 05054-8 ####[facility] IVONNENEW OXFORDANGIESANCHEZA [id number] [place] [address] [place] Calcium [Mass/Vol] 9.8 mg/dL Normal 8.5-10.2 [facility] Comment on above: Order Comment: Speci men Type: BLOOD SPECIMENOrdering Facility: [facility] Address: [address] [place] [address] Performed By: #### 1 9123-9, 89378-1 ####[facility] IVONNENEW OXFORDNCLIA [id number] [place] [address] [place] Chloride [Moles/Vol] 106 mmol/L Normal 98-107 [facility] Comment on above: Order Comment: Speci men Type: BLOOD SPECIMENOrdering Facility: [facility] Address: [address] [place] [address] Performed By: #### 1 9123-9, 28725-9 ####[facility] VALERIANOWNCLIA [id number] [place] [address] [place] CO2 [Moles/Vol] 24 mmol/L Normal 22-30 [facility] Comment on above: Order Comment: Speci men Type: BLOOD SPECIMENOrdering Facility: [facility] Address: [address] [place] [address] Performed By: #### 1 9123-9, ####[facility]CL[facility] [id number] [place] [address] [place] Creatinine [Mass/Vol] 0.75 mg/dL Normal 0.58-0.96 [facility] Comment on above: Order Comment: Speci men Type: BLOOD SPECIMENOrdering Facility: [facility] Address: [address] [place] [address] Performed By: #### 1 9123-9, ####[facility] [id number] [place] [address] [place] eGFRcr SerPlBld CKD-EPI 2020 86 mL/min/1.73m??? Normal >=60 [facility] Comment on above: Order Comment: Speci men Type: BLOOD SPECIMENOrdering Facility: [facility] Address: [address] [place] [address] Result Comment: Coco mated Glomerular Filtration Rate [...] actual GFR. Performed By: #### 1 9123-9, 43916-2 ####[facility] [id number] [place] [address] [place] Glucose [Mass/Vol] 113 mg/dL High 74-99 [facility] Comment on above: Order Comment: Speci men Type: BLOOD SPECIMENOrdering Facility: [facility] Address: [address] [place], [place] [address] Result Comment: The [place] Diabetes Association (ADA) provides guidance for cutoff [...] Standards of Medical Care in Diabetes 2016, [place] Diabetes [employer]. Diabetes Care. 2016.39(Suppl 1). Performed By: #### 1 9123-9, 07407-6 ####[facility] MILLNATHANWHAYDEN [id number] [place] [address] [place] Potassium [Moles/Vol] 3.8 mmol/L Normal 3.7-5.1 [facility] Comment on above: Order Comment: Speci men Type: BLOOD SPECIMENOrdering Facility: [facility] Address: [address] [place], [place] [address] Performed By: #### 1 9123-9, 11778-1 ####[facility] MILLNATHANWNCLITrae [id number] [place] [address] [place] Protein [Mass/Vol] 6.3 g/dL Normal 6.3-8.0 [facility] Comment on above: Order Comment: Speci men Type: BLOOD SPECIMENOrdering Facility: [facility] Address: [address] [place], [place] [address] Performed By: #### 1 9123-9, 18040-0 ####[facility] MILLNATHANWHAYDEN [id number] [place] [address] [place] Sodium [Moles/Vol] 139 mmol/L Normal 136-144 [facility] Comment on above: Order Comment: Speci men Type: BLOOD SPECIMENOrdering Facility: [facility] Address: [address] [place] [address] Performed By: #### 1 9123-9, 36442-4 ####[facility] MILLNEW OXFORDANGIELIA [id number] [place] [address] [place] Urea nitrogen [Mass/Vol] 16 mg/dL Normal 7-21 [facility] Comment on above: Order Comment: Speci men Type: BLOOD SPECIMENOrdering Facility: [facility] Address: [address] [place] [address] Performed By: #### 1 9123-9, 32165-3 ####[facility]CL[facility] [id number] [place] [address] [place] MAGNESIUMon 02-23-2025 Magnesium [Mass/Vol] 2.1 mg/dL 1.7 - 2 .3 mg/dL [facility] Magnesium SerPl-mCncon 02-23 Magnesium [Mass/Vol] 2.1 mg/dL Normal 1.7-2.3 [facility] Comment on above: Order Comment: Speci men Type: BLOOD SPECIMENOrdering Facility: [facility] Address: [address] [place] [address] Performed By: #### 1 9123-9, 57455-2 ####[facility] MILLNEW OXFORDNCLIA [id number] [place] [address] [place] Magnesium [Mass/Vol]on 02-23 Interpretation and review of laboratory results Normal [facility] No Panel InformationOrdered By: Mer Velaqzuez on 02-23-[address] [facility] CNOVon 02-22-2025 CNOV Normal [facility] CNPNon 02-18-2025 CNPN Normal [facility] CBC W Auto Differential pane l (Bld)on 02-16-2025 Basophils (Bld) [#/Vol] 0.04 10*3/uL [facility] Basophils/100 WBC (Bld) 0.9 % [facility] Differential cell count method Nom (Bld) Auto [facility] Eosinophils (Bld) [#/Vol] 0.03 10*3/uL [facility] Eosinophils/100 WBC (Bld) 0.7 % [facility] Erythrocyte distribution width (RBC) [Ratio] 12 % 11.5 - 15.0 % [facility] Hematocrit (Bld) [Volume fraction] 36 % 36.0 - 46.0 % [facility] Hemoglobin (Bld) [Mass/Vol] 12.7 g/dL 11.5 - 15.5 g/dL [facility] Immature granulocytes (Bld) [#/Vol] [facility] Immature granulocytes/100 WBC (Bld) 0.5 % [facility] Interpretation and review of laboratory results Abnormal [facility] Lymphocytes (Bld) [#/Vol] 1.86 10*3/uL [facility] Lymphocytes/100 WBC (Bld) 42.7 % [facility] MCH (RBC) [Entitic mass] 33.7 pg 26.0 - 34.[address] [facility] MCHC (RBC) [Mass/Vol] 35.3 g/dL 30.5 - 36.0 g/dL [facility] MCV (RBC) [Entitic vol] 95.5 fL 80.0 - 100.[address] [facility] Monocytes (Bld) [#/Vol] 0.25 10*3/uL [facility] Monocytes/100 WBC (Bld) 5.7 % [facility] Neutrophils (Bld) [#/Vol] 2.16 10*3/uL [facility] Neutrophils/100 WBC (Bld) 49.5 % [facility] Nucleated RBC (Bld) [#/Vol] [facility] Nucleated RBC/100 WBC (Bld) [Ratio] 0 % /[address] [facility] Platelet mean volume (Bld) [Entitic vol] 9 fL 9.0 - 12.[address] [facility] Platelets (Bld) [#/Vol] 178 10*3/uL [facility] RBC (Bld) [#/Vol] 3.77 10*6/uL Low 3.90 - 5.2 0 m/uL [facility] WBC (Bld) [#/Vol] 4.36 10*3/uL [facility] Basophils (Bld) [#/Vol] 0.04 10*3/uL Normal <0.11 [facility] Comment on above: Order Comment: Speci men Type: BLOOD SPECIMENOrdering Facility: [facility] Address: [address] [place] [address] Performed By: #### 5 7021-8 ####[facility] PINE RIDGEWNMLIA [id number] [place] [address] [place] Basophils/100 WBC (Bld) 0.9 % Normal [facility] Comment on above: Order Comment: Speci men Type: BLOOD SPECIMENOrdering Facility: [facility] Address: [address] [place] [address] Performed By: #### 5 7021-8 ####[facility] [id number] [place] [address] [place] Differential cell count method Nom (Bld) Auto Normal [facility] Comment on above: Order Comment: Speci men Type: BLOOD SPECIMENOrdering Facility: [facility] Address: [address] [place] [address] Performed By: #### 5 7021-8 ####[facility] SPRINGFIELDLIA [id number] [place] [address] [place] Eosinophils (Bld) [#/Vol] 0.03 10*3/uL Normal <0.46 [facility] Comment on above: Order Comment: Speci men Type: BLOOD SPECIMENOrdering Facility: [facility] Address: [address] [place] [address] Performed By: #### 5 7021-8 ####[facility] MILLNEW OXFORDNCLIA [id number] [place] [address] [place] Eosinophils/100 WBC (Bld) 0.7 % Normal [facility] Comment on above: Order Comment: Speci men Type: BLOOD SPECIMENOrdering Facility: [facility] Address: [address] [place] [address] Performed By: #### 5 7021-8 ####[facility] ROSY MONICANCSUZY [id number] [place] [address] [place] Erythrocyte distribution width (RBC) [Ratio] 12.0 % Normal 11.5-15.0 [facility] Comment on above: Order Comment: Speci men Type: BLOOD SPECIMENOrdering Facility: [facility] Address: [address] [place] [address] Performed By: #### 5 7021-8 ####[facility] CHARLOTTENCLITrae [id number] [place] [address] [place] Hematocrit (Bld) [Volume fraction] 36.0 % Normal 36.0-46.0 [facility] Comment on above: Order Comment: Speci men Type: BLOOD SPECIMENOrdering Facility: [facility] Address: [address] [place] [address] Performed By: #### 5 7021-8 ####[facility] SPRINGFIELDLIA [id number] [place] [address] [place] Hemoglobin (Bld) [Mass/Vol] 12.7 g/dL Normal 11.5-15.5 [facility] Comment on above: Order Comment: Speci men Type: BLOOD SPECIMENOrdering Facility: [facility] Address: [address] [place] [address] Performed By: #### 5 7021-8 ####[facility] CHARLOTTENCLIA [id number] [place] [address] [place] Immature granulocytes (Bld) [#/Vol] 10*3/uL Normal <0.10 [facility] Comment on above: Order Comment: Speci men Type: BLOOD SPECIMENOrdering Facility: [facility] Address: [address] [place], [place] [address] Performed By: #### 5 7021-8 ####[facility] IVONNENEW OXFORDNCLIA [id number] [place] [address] [place] [facility] Immature granulocytes/100 WBC (Bld) 0.5 % Normal [facility] Comment on above: Order Comment: Speci men Type: BLOOD SPECIMENOrdering Facility: [facility] Address: [address] [place] [address] Performed By: #### 5 7021-8 ####[facility] CHARLOTTENCLIA [id number] [place] [address] [place] Lymphocytes (Bld) [#/Vol] 1.86 10*3/uL Normal 1.00-4.00 [facility] Comment on above: Order Comment: Speci men Type: BLOOD SPECIMENOrdering Facility: [facility] Address: [address] [place] [address] Performed By: #### 5 7021-8 ####[facility] [id number] [place] [address] [place] Lymphocytes/100 WBC (Bld) 42.7 % Normal [facility] Comment on above: Order Comment: Speci men Type: BLOOD SPECIMENOrdering Facility: [facility] Address: [address] [place] [address] Performed By: #### 5 7021-8 ####[facility] [id number] [place] [address] [place] MCH (RBC) [Entitic mass] 33.7 pg Normal 26.0-34.0 [facility] Comment on above: Order Comment: Speci men Type: BLOOD SPECIMENOrdering Facility: [facility] Address: [address] [place] [address] Performed By: #### 5 7021-8 ####[facility] [id number] [place] [address] [place] MCHC (RBC) [Mass/Vol] 35.3 g/dL Normal 30.5-36.0 [facility] Comment on above: Order Comment: Speci men Type: BLOOD SPECIMENOrdering Facility: [facility] Address: [address] [place] [address] Performed By: #### 5 7021-8 ####[facility] IVONNEJuaquinJACOBA [id number] [place] [address] [place] MCV (RBC) [Entitic vol] 95.5 fL Normal 80.0-100.0 [facility] Comment on above: Order Comment: Speci men Type: BLOOD SPECIMENOrdering Facility: [facility] Address: [address] [place] [address] Performed By: #### 5 7021-8 ####[facility] CHARLOTTENCSUZY [id number] [place] [address] [place] Monocytes (Bld) [#/Vol] 0.25 10*3/uL Normal <0.87 [facility] Comment on above: Order Comment: Speci men Type: BLOOD SPECIMENOrdering Facility: [facility] Address: [address] [place] [address] Performed By: #### 5 7021-8 ####[facility] CHARLOTTEJACOBA [id number] [place] [address] [place] Monocytes/100 WBC (Bld) 5.7 % Normal [facility] Comment on above: Order Comment: Speci men Type: BLOOD SPECIMENOrdering Facility: [facility] Address: [address] [place] [address] Performed By: #### 5 7021-8 ####[facility] CHARLOTTENCLIA [id number] [place] [address] [place] Neutrophils (Bld) [#/Vol] 2.16 10*3/uL Normal 1.45-7.50 [facility] Comment on above: Order Comment: Speci men Type: BLOOD SPECIMENOrdering Facility: [facility] Address: [address] [place] [address] Performed By: #### 5 7021-8 ####[facility] FELI [id number] [place] [address] [place] Neutrophils/100 WBC (Bld) 49.5 % Normal [facility] Comment on above: Order Comment: Speci men Type: BLOOD SPECIMENOrdering Facility: [facility] Address: [address] [place] [address] Performed By: #### 5 7021-8 ####[facility] [id number] [place] [address] [place] Nucleated RBC (Bld) [#/Vol] 10*3/uL Normal <0.01 [facility] Comment on above: Order Comment: Speci men Type: BLOOD SPECIMENOrdering Facility: [facility] Address: [address] [place] [address] Performed By: #### 5 7021-8 ####[facility] CHARLOTTENCLIA [id number] [place] [address] [place] Nucleated RBC/100 WBC (Bld) [Ratio] 0.0 /100 WBC Normal [facility] Comment on above: Order Comment: Speci men Type: BLOOD SPECIMENOrdering Facility: [facility] Address: [address] [place] [address] Performed By: #### 5 7021-8 ####[facility] [id number] [place] [address] [place] Platelet mean volume (Bld) [Entitic vol] 9.0 fL Normal 9.0-12.7 [facility] Comment on above: Order Comment: Speci men Type: BLOOD SPECIMENOrdering Facility: [facility] Address: [address] [place] [address] Performed By: #### 5 7021-8 ####[facility] IVONNEJuaquinNCLIA [id number] [place] [address] [place] Platelets (Bld) [#/Vol] 178 10*3/uL Normal 150-400 [facility] Comment on above: Order Comment: Speci men Type: BLOOD SPECIMENOrdering Facility: [facility] Address: [address] [place], [place] [address] Performed By: #### 5 7021-8 ####[facility] CHARLOTTENCLIA [id number] [place] [address] [place] RBC (Bld) [#/Vol] 3.77 10*6/uL Low 3.90-5.20 [facility] Comment on above: Order Comment: Speci men Type: BLOOD SPECIMENOrdering Facility: [facility] Address: [address] [place] [address] Performed By: #### 5 7021-8 ####[facility] CHARLOTTENCLIA [id number] [place] [address] [place] WBC (Bld) [#/Vol] 4.36 10*3/uL Normal 3.70-11.00 [facility] Comment on above: Order Comment: Speci men Type: BLOOD SPECIMENOrdering Facility: [facility] Address: [address] [place], [place] [id number] Performed By: #### 5 7021-8 ####[facility]LOTTENCLIA [id number] [place] [address] [facility] [place] Comprehensive metabolic 2000 panelOrdered By: Mer Velazquez on 02-16-2025 Albumin [Mass/Vol] 4.1 g/dL 3.9 - 4.9 g/dL [facility] ALP [Catalytic activity/Vol] 65 U/L 34 - 123 U/L [facility] ALT [Catalytic activity/Vol] 35 U/L 7 - 38 U/L [facility] Anion gap [Moles/Vol] 10 mmol/L 8 - 15 mmol/L [facility] AST [Catalytic activity/Vol] 20 U/L 13 - 35 U/L [facility] Bilirubin [Mass/Vol] 0.3 mg/dL 0.2 - 1 .3 mg/dL [facility] Calcium [Mass/Vol] 9.8 mg/dL 8.5 - 10. 2 mg/dL [facility] Chloride [Moles/Vol] 104 mmol/L 98 - 10 7 mmol/L [facility] CO2 [Moles/Vol] 25 mmol/L 22 - 30 mmol/L [facility] Creatinine [Mass/Vol] 0.69 mg/dL 0.58 - 0.96 mg/dL [facility] GFR/1.73 sq M.predicted among non-blacks MDRD (S/P/Bld) [Vol rate/Area] 93 mL/min/{1.73_m2} - PINF [facility] Comment on above: Estimated Glomerular Filtration [...] 103 mg/dL High 74 - 99 mg/dL [facility] Comment on above: The [place] Diab[employer] Association (ADA) provides guidance for [...] Standards of Medical Care in Diabetes 2016, [place] Diabetes Association. Diabetes Care. 2016.39(Suppl 1). Interpretation and review of laboratory results Abnormal [facility] Potassium [Moles/Vol] 4 mmol/L 3.7 - 5.1 mmol/L [facility] Protein [Mass/Vol] 6.5 g/dL 6.3 - 8.0 g/dL [facility] Sodium [Moles/Vol] 139 mmol/L 136 - 144 mmol/L [facility] Urea nitrogen [Mass/Vol] 17 mg/dL 7 - 21 mg/dL [facility] Comprehensive metabolic 2000 panelon 02-16-2025 Albumin [Mass/Vol] 4.1 g/dL Normal 3.9-4.9 [facility] Comment on above: Order Comment: Speci men Type: BLOOD SPECIMENOrdering Facility: [facility] Address: [address] [place] [address] Performed By: #### 1 9123-9, 52324-4 ####[facility] [id number] [place] [address] [place] ALP [Catalytic activity/Vol] 65 U/L Normal 34-123 [facility] Comment on above: Order Comment: Speci men Type: BLOOD SPECIMENOrdering Facility: [facility] Address: [address] [place] [address] Performed By: #### 1 9123-9, 94787-6 ####[facility] [id number] [place] [address] [place] ALT [Catalytic activity/Vol] 35 U/L Normal 7-38 [facility] Comment on above: Order Comment: Speci men Type: BLOOD SPECIMENOrdering Facility: [facility] Address: [address] [place] [address] Performed By: #### 1 9123-9, 11751-8 ####[facility] SPRINGFIELDLIA [id number] [place] [address] [place] Anion gap [Moles/Vol] 10 mmol/L Normal 8-15 [facility] Comment on above: Order Comment: Speci men Type: BLOOD SPECIMENOrdering Facility: [facility] Address: [address] [place] [address] Performed By: #### 1 9123-9, 51373-6 ####[facility] MILLTOWNCLIA [id number] [place] [address] [place] AST [Catalytic activity/Vol] 20 U/L Normal 13-35 [facility] Comment on above: Order Comment: Speci men Type: BLOOD SPECIMENOrdering Facility: [facility] Address: [address] [place] [address] Performed By: #### 1 9123-9, ####[facility] MILLTOWNCLIA [id number] [place] [address] [place] Bilirubin [Mass/Vol] 0.3 mg/dL Normal 0.2-1.3 [facility] Comment on above: Order Comment: Speci men Type: BLOOD SPECIMENOrdering Facility: [facility] Address: [address] [place] [address] Performed By: #### 1 9123-9, ####[facility] RIDGEWNCLIA [id number] [place] [address] [place] Calcium [Mass/Vol] 9.8 mg/dL Normal 8.5-10.2 [facility] Comment on above: Order Comment: Speci men Type: BLOOD SPECIMENOrdering Facility: [facility] Address: [address] [place] [address] Performed By: #### 1 9123-9, ####[facility] PINE RIDGEWNCLIA [id number] [place] [address] [place] Chloride [Moles/Vol] 104 mmol/L Normal 98-107 [facility] Comment on above: Order Comment: Speci men Type: BLOOD SPECIMENOrdering Facility: [facility] Address: [address] [place] [address] Performed By: #### 1 9123-9, ####[facility] MILLTOWNCLIA [id number] [place] [address] [place] CO2 [Moles/Vol] 25 mmol/L Normal 22-30 [facility] Comment on above: Order Comment: Cam silva Type: BLOOD SPECIMENOrdering Facility: [facility] Address: [address] [place] [address] Performed By: #### 1 9123-9, 32420-7 ####[facility] [id number] [place] [address] [place] Creatinine [Mass/Vol] 0.69 mg/dL Normal 0.58-0.96 [facility] Comment on above: Order Comment: Cam men Type: BLOOD SPECIMENOrdering Facility: [facility] Address: [address] [place] [address] Performed By: #### 1 9123-9, 98899-2 ####[facility] CHARLOTTENCTrae [id number] [place] [address] [place] Creatinine and Glomerular filtration rate.predicted panel (S/P/Bld) 93 mL/min/1.73m??? Normal >=60 [facility] Comment on above: Order Comment: Cam silva Type: BLOOD SPECIMENOrdering Facility: [facility] Address: [address] [place] [address] Result Comment: Coco mated Glomerular Filtration Rate [...] actual GFR. Performed By: #### 1 9123-9, 04731-7 ####[facility] CHARLOTTENCLIA [id number] [place] [address] [place] Glucose [Mass/Vol] 103 mg/dL High 74-99 [facility] Comment on above: Order Comment: Speci men Type: BLOOD SPECIMENOrdering Facility: [facility] Address: [address] [place], [place] [id number] Result Comment: The [place] Diabetes Association (ADA) provides guidance for cutoff [...] Standards of Medical Care in Diabetes 2016, [place] [employer]. Diabetes Care. 2016.39(Suppl 1). Performed By: #### 1 9123-9, 25699-9 ####[facility] [id number] [place] [address] [place] Potassium [Moles/Vol] 4.0 mmol/L Normal 3.7-5.1 [facility] Comment on above: Order Comment: Cam silva Type: BLOOD SPECIMENOrdering Facility: [facility] Address: [address] [place], [place] [address] Performed By: #### 1 9123-9, 74707-7 ####[facility]ITAL[facility] [id number] [place] [address] [place] Protein [Mass/Vol] 6.5 g/dL Normal 6.3-8.0 [facility] Comment on above: Order Comment: Cam silva Type: BLOOD SPECIMENOrdering Facility: [facility] Address: [address] [place], [place] [address] Performed By: #### 1 9123-9, ####[facility] P[facility] RIDGEWNCLIA [id number] [place] [address] [place] Sodium [Moles/Vol] 139 mmol/L Normal 136-144 [facility] Comment on above: Order Comment: Speci men Type: BLOOD SPECIMENOrdering Facility: [facility] Address: [address] [place], [place] [id number] Performed By: #### 1 9123-9, 08152-0 ####[facility] IVONNENEW OXFORDNCLIA [id number] [place] [address] [place] Urea nitrogen [Mass/Vol] 17 mg/dL Normal 7-21 [facility] Comment on above: Order Comment: Speci men Type: BLOOD SPECIMENOrdering Facility: [facility] Address: [address] [place] [address] Performed By: #### 1 9123-9, 98779-7 ####[facility] CHARLOTTENCLIA [id number] [place] [address] [place] MAGNESIUMon 02-16-2025 Magnesium [Mass/Vol] 2.1 mg/dL 1.7 - 2 .3 mg/dL [facility] Magnesium SerPl-mCncon 02-16 Magnesium [Mass/Vol] 2.1 mg/dL Normal 1.7-2.3 [facility] Comment on above: Order Comment: Speci men Type: BLOOD SPECIMENOrdering Facility: [facility] Address: [address] [place] [address] Performed By: #### 1 9123-9, 37807-8 ####[facility]ITAL[facility] [id number] [place] [address] [place] Magnesium [Mass/Vol]on 02-16 Interpretation and review of laboratory results Normal [facility] CBC W Auto Differential pane l (Bld)on 02-08-2025 Basophils (Bld) [#/Vol] 0.04 10*3/uL [facility] Basophils/100 WBC (Bld) 1.3 % [facility] Differential cell count method Nom (Bld) Auto [facility] Eosinophils (Bld) [#/Vol] 0.03 10*3/uL BANNERF [facility] Eosinophils/100 WBC (Bld) 0.9 % [facility] Erythrocyte distribution width (RBC) [Ratio] 11.4 % Low 11.5 - 15.0 % [facility] Hematocrit (Bld) [Volume fraction] 36.1 % 36.0 - 46.0 % [facility] Hemoglobin (Bld) [Mass/Vol] 12.7 g/dL 11.5 - 15.5 g/dL [facility] Immature granulocytes (Bld) [#/Vol] NINF [facility] Immature granulocytes/100 WBC (Bld) 0.6 % [facility] Interpretation and review of laboratory results Abnormal [facility] Lymphocytes (Bld) [#/Vol] 1.62 10*3/uL [facility] Lymphocytes/100 WBC (Bld) 50.8 % [facility] MCH (RBC) [Entitic mass] 33.2 pg 26.0 - 34.[address] [facility] MCHC (RBC) [Mass/Vol] 35.2 g/dL 30.5 - 36.0 g/dL [facility] MCV (RBC) [Entitic vol] 94.5 fL 80.0 - 100.[address] [facility] Monocytes (Bld) [#/Vol] 0.18 10*3/uL [facility] Monocytes/100 WBC (Bld) 5.6 % [facility] Neutrophils (Bld) [#/Vol] 1.3 10*3/uL Low [facility] Neutrophils/100 WBC (Bld) 40.8 % [facility] Nucleated RBC (Bld) [#/Vol] BANNERF [facility] Nucleated RBC/100 WBC (Bld) [Ratio] 0 % /[address] [facility] Platelet mean volume (Bld) [Entitic vol] 9.1 fL 9.0 - 12.[address] [facility] Platelets (Bld) [#/Vol] 241 10*3/uL [facility] RBC (Bld) [#/Vol] 3.82 10*6/uL Low 3.90 - 5.2 0 m/uL [facility] WBC (Bld) [#/Vol] 3.19 10*3/uL Low [facility] Basophils (Bld) [#/Vol] 0.04 10*3/uL Normal <0.11 [facility] Comment on above: Order Comment: Speci men Type: BLOOD SPECIMENOrdering Facility: [facility] Address: [address] [place] [address] Performed By: #### 5 7021-8 ####[facility] MILLWNCLIA [id number] [place] [address] [place] Basophils/100 WBC (Bld) 1.3 % Normal [facility] Comment on above: Order Comment: Speci men Type: BLOOD SPECIMENOrdering Facility: [facility] Address: [address] [place] [address] Performed By: #### 5 7021-8 ####[facility] CHARLOTTENCLIA [id number] [place] [address] [place] Differential cell count method Nom (Bld) Auto Normal [facility] Comment on above: Order Comment: Speci men Type: BLOOD SPECIMENOrdering Facility: [facility] Address: [address] [place] [address] Performed By: #### 5 7021-8 ####[facility] PINE RIDGEWNMLIA [id number] [place] [address] [place] Eosinophils (Bld) [#/Vol] 0.03 10*3/uL Normal <0.46 [facility] Comment on above: Order Comment: Speci men Type: BLOOD SPECIMENOrdering Facility: [facility] Address: [address] [place] [address] Performed By: #### 5 7021-8 ####[facility] MILLTOWNCLIA [id number] [place] [address] [place] Eosinophils/100 WBC (Bld) 0.9 % Normal [facility] Comment on above: Order Comment: Speci men Type: BLOOD SPECIMENOrdering Facility: [facility] Address: [address] [place] [address] Performed By: #### 5 7021-8 ####[facility] MILLTOWNCLIA [id number] [place] [address] [place] Erythrocyte distribution width (RBC) [Ratio] 11.4 % Low 11.5-15.0 [facility] Comment on above: Order Comment: Speci men Type: BLOOD SPECIMENOrdering Facility: [facility] Address: [address] [place] [address] Performed By: #### 5 7021-8 ####[facility] [id number] [place] [address] [place] Hematocrit (Bld) [Volume fraction] 36.1 % Normal 36.0-46.0 [facility] Comment on above: Order Comment: Speci men Type: BLOOD SPECIMENOrdering Facility: [facility] Address: [address] [place] [address] Performed By: #### 5 7021-8 ####[facility] CHARLOTTEANGIETrae [id number] [place] [address] [place] Hemoglobin (Bld) [Mass/Vol] 12.7 g/dL Normal 11.5-15.5 [facility] Comment on above: Order Comment: Speci men Type: BLOOD SPECIMENOrdering Facility: [facility] Address: [address] [place] [address] Performed By: #### 5 7021-8 ####[facility] [id number] [place] [address] [place] Immature granulocytes (Bld) [#/Vol] 10*3/uL Normal <0.10 [facility] Comment on above: Order Comment: Speci men Type: BLOOD SPECIMENOrdering Facility: [facility] Address: [address] [place] [address] Performed By: #### 5 7021-8 ####[facility] CHARLOTTENCLIA [id number] [place] [address] [place] Immature granulocytes/100 WBC (Bld) 0.6 % Normal [facility] Comment on above: Order Comment: Speci men Type: BLOOD SPECIMENOrdering Facility: [facility] Address: [address] [place] [address] Performed By: #### 5 7021-8 ####[facility] CHARLOTTENCSANCHEZA [id number] [place] [address] [place] Lymphocytes (Bld) [#/Vol] 1.62 10*3/uL Normal 1.00-4.00 [facility] Comment on above: Order Comment: Speci men Type: BLOOD SPECIMENOrdering Facility: [facility] Address: [address] [place] [address] Performed By: #### 5 7021-8 ####[facility] [id number] [place] [address] [place] Lymphocytes/100 WBC (Bld) 50.8 % Normal [facility] Comment on above: Order Comment: Speci men Type: BLOOD SPECIMENOrdering Facility: [facility] Address: [address] [place] [address] Performed By: #### 5 7021-8 ####[facility] [id number] [place] [address] [place] MCH (RBC) [Entitic mass] 33.2 pg Normal 26.0-34.0 [facility] Comment on above: Order Comment: Speci men Type: BLOOD SPECIMENOrdering Facility: [facility] Address: [address] [place] [address] Performed By: #### 5 7021-8 ####[facility] CHARLOTTENCA [id number] [place] [address] [place] MCHC (RBC) [Mass/Vol] 35.2 g/dL Normal 30.5-36.0 [facility] Comment on above: Order Comment: Speci men Type: BLOOD SPECIMENOrdering Facility: [facility] Address: [address] [place] [address] Performed By: #### 5 7021-8 ####[facility] CHARLOTTENCLIA [id number] [place] [address] [place] MCV (RBC) [Entitic vol] 94.5 fL Normal 80.0-100.0 [facility] Comment on above: Order Comment: Speci men Type: BLOOD SPECIMENOrdering Facility: [facility] Address: [address] [place] [address] Performed By: #### 5 7021-8 ####[facility] CHARLOTTENCLIA [id number] [place] [address] [place] Monocytes (Bld) [#/Vol] 0.18 10*3/uL Normal <0.87 [facility] Comment on above: Order Comment: Speci men Type: BLOOD SPECIMENOrdering Facility: [facility] Address: [address] [place] [address] Performed By: #### 5 7021-8 ####[facility] CHARLOTTENCA [id number] [place] [address] [place] Monocytes/100 WBC (Bld) 5.6 % Normal [facility] Comment on above: Order Comment: Speci men Type: BLOOD SPECIMENOrdering Facility: [facility] Address: [address] [place] [address] Performed By: #### 5 7021-8 ####[facility] CHARLOTTENCLIA [id number] [place] [address] [place] Neutrophils (Bld) [#/Vol] 1.30 10*3/uL Low 1.45-7.50 [facility] Comment on above: Order Comment: Speci men Type: BLOOD SPECIMENOrdering Facility: [facility] Address: [address] [place] [address] Performed By: #### 5 7021-8 ####[facility] [id number] [place] [address] [place] Neutrophils/100 WBC (Bld) 40.8 % Normal [facility] Comment on above: Order Comment: Speci men Type: BLOOD SPECIMENOrdering Facility: [facility] Address: [address] [place] [address] Performed By: #### 5 7021-8 ####[facility] [id number] [place] [address] [place] Nucleated RBC (Bld) [#/Vol] 10*3/uL Normal <0.01 [facility] Comment on above: Order Comment: Speci men Type: BLOOD SPECIMENOrdering Facility: [facility] Address: [address] [place] [address] Performed By: #### 5 7021-8 ####[facility] [id number] [place] [address] [place] Nucleated RBC/100 WBC (Bld) [Ratio] 0.0 /100 WBC Normal [facility] Comment on above: Order Comment: Speci men Type: BLOOD SPECIMENOrdering Facility: [facility] Address: [address] [place] [address] Performed By: #### 5 7021-8 ####[facility] CHARLOTTENCLITrae [id number] [place] [address] [place] Platelet mean volume (Bld) [Entitic vol] 9.1 fL Normal 9.0-12.7 [facility] Comment on above: Order Comment: Speci men Type: BLOOD SPECIMENOrdering Facility: [facility] Address: [address] [place] [address] Performed By: #### 5 7021-8 ####[facility] CHARLOTTENCLIA [id number] [place] [address] [place] Platelets (Bld) [#/Vol] 241 10*3/uL Normal 150-400 [facility] Comment on above: Order Comment: Speci men Type: BLOOD SPECIMENOrdering Facility: [facility] Address: [address] [place] [address] Performed By: #### 5 7021-8 ####[facility] RIDGEWNCLIA [id number] [place] [address] [place] RBC (Bld) [#/Vol] 3.82 10*6/uL Low 3.90-5.20 [facility] Comment on above: Order Comment: Speci men Type: BLOOD SPECIMENOrdering Facility: [facility] Address: [address] [place] [address] Performed By: #### 5 7021-8 ####[facility] CHARLOTTENCLIA [id number] [place] [address] [place] WBC (Bld) [#/Vol] 3.19 10*3/uL Low 3.70-11.00 [facility] Comment on above: Order Comment: Speci men Type: BLOOD SPECIMENOrdering Facility: [facility] Address: [address] [place] [address] Performed By: #### 5 7021-8 ####[facility] CHARLOTTENCLIA [id number] [place] [address] [place] CNOVSPon 02-08-2025 CNOVSP Normal [facility] CORTISOL, SERUMon 02-08-2025 Cortisol [Mass/Vol] 12.3 ug/dL 4.8 - 19 .5 ug/dL [facility] Comment on above: Provided reference r cristian is from 6-10 AM sample collection time. Cortisol Reference Range: 6-10 AM = 4.8-19.5 ug/dL, 4-8 PM = 2.5-11.9 ug/dL Comprehensive metabolic 2000 panelOrdered By: Meeta Lau on 02-08-2025 Albumin [Mass/Vol] 4.1 g/dL 3.9 - 4.9 g/dL [facility] ALP [Catalytic activity/Vol] 67 U/L 34 - 123 U/L [facility] ALT [Catalytic activity/Vol] 31 U/L 7 - 38 U/L [facility] Anion gap [Moles/Vol] 12 mmol/L 8 - 15 mmol/L [facility] AST [Catalytic activity/Vol] 19 U/L 13 - 35 U/L [facility] Bilirubin [Mass/Vol] 0.3 mg/dL 0.2 - 1 .3 mg/dL [facility] Calcium [Mass/Vol] 10 mg/dL 8.5 - 10. 2 mg/dL [facility] Chloride [Moles/Vol] 103 mmol/L 98 - 10 7 mmol/L [facility] CO2 [Moles/Vol] 23 mmol/L 22 - 30 mmol/L [facility] Creatinine [Mass/Vol] 0.59 mg/dL 0.58 - 0.96 mg/dL [facility] GFR/1.73 sq M.predicted among non-blacks MDRD (S/P/Bld) [Vol rate/Area] 97 mL/min/{1.73_m2} - PINF [facility] Comment on above: Estimated Glomerular Filtration [...] 115 mg/dL High 74 - 99 mg/dL [facility] Comment on above: The [place] [employer] (ADA) provides guidance for [...] Standards of Medical Care in Diabetes 2016, [place] [employer]. Diabetes Care. 2016.39(Suppl 1). Interpretation and review of laboratory results Abnormal [facility] Potassium [Moles/Vol] 4.1 mmol/L 3.7 - 5.1 mmol/L [facility] Protein [Mass/Vol] 6.7 g/dL 6.3 - 8.0 g/dL [facility] Sodium [Moles/Vol] 138 mmol/L 136 - 144 mmol/L [facility] Urea nitrogen [Mass/Vol] 15 mg/dL 7 - 21 mg/dL [facility] Comprehensive metabolic 2000 panelon 02-08-2025 Albumin [Mass/Vol] 4.1 g/dL Normal 3.9-4.9 [facility] Comment on above: Order Comment: Speci men Type: BLOOD SPECIMENOrdering Facility: [facility] Address: [address] [place] [address] Performed By: #### 2 4323-8, ####[facility] [id number] [place] [address] [place] ALP [Catalytic activity/Vol] 67 U/L Normal 34-123 [facility] Comment on above: Order Comment: Speci men Type: BLOOD SPECIMENOrdering Facility: [facility] Address: [address] [place] [address] Performed By: #### 2 4323-8, ####[facility]ITAL[facility] [id number] [place] [address] [place] ALT [Catalytic activity/Vol] 31 U/L Normal 7-38 [facility] Comment on above: Order Comment: Speci men Type: BLOOD SPECIMENOrdering Facility: [facility] Address: [address] [place], [place] [address] Performed By: #### 2 4323-8, ####[facility] [id number] [place] [address] [place] Anion gap [Moles/Vol] 12 mmol/L Normal 8-15 [facility] Comment on above: Order Comment: Speci men Type: BLOOD SPECIMENOrdering Facility: [facility] Address: [address] [place] [address] Performed By: #### 2 4323-8, 42889-8 ####[facility] MONICANCSUZY [id number] [place] [address] [place] AST [Catalytic activity/Vol] 19 U/L Normal 13-35 [facility] Comment on above: Order Comment: Speci men Type: BLOOD SPECIMENOrdering Facility: [facility] Address: [address] [place] [address] Performed By: #### 2 4323-8, 36690-7 ####[facility] MONICANCSANCHEZA [id number] [place] [address] [place] Bilirubin [Mass/Vol] 0.3 mg/dL Normal 0.2-1.3 [facility] Comment on above: Order Comment: Speci men Type: BLOOD SPECIMENOrdering Facility: [facility] Address: [address] [place] [address] Performed By: #### 2 4323-8, 01977-7 ####[facility] IVONNENEW OXFORDANGIESANCHEZA [id number] [place] [address] [place] Calcium [Mass/Vol] 10.0 mg/dL Normal 8.5-10.2 [facility] Comment on above: Order Comment: Speci men Type: BLOOD SPECIMENOrdering Facility: [facility] Address: [address] [place] [address] Performed By: #### 2 4323-8, ####[facility] CHARLOTTENCLIA [id number] [place] [address] [place] Chloride [Moles/Vol] 103 mmol/L Normal 98-107 [facility] Comment on above: Order Comment: Speci men Type: BLOOD SPECIMENOrdering Facility: [facility] Address: [address] [place] [address] Performed By: #### 2 4323-8, ####[facility] PINE RIDGEWNCLIA [id number] [place] [address] [place] CO2 [Moles/Vol] 23 mmol/L Normal 22-30 [facility] Comment on above: Order Comment: Speci men Type: BLOOD SPECIMENOrdering Facility: [facility] Address: [address] [place] [address] Performed By: #### 2 4323-8, ####[facility] CHARLOTTENCLIA [id number] [place] [address] [place] Creatinine [Mass/Vol] 0.59 mg/dL Normal 0.58-0.96 [facility] Comment on above: Order Comment: Speci men Type: BLOOD SPECIMENOrdering Facility: [facility] Address: [address] [place] [address] Performed By: #### 2 4323-8, ####[facility] CHARLOTTENCLIA [id number] [place] [address] [place] Creatinine and Glomerular filtration rate.predicted panel (S/P/Bld) 97 mL/min/1.73m??? Normal >=60 [facility] Comment on above: Order Comment: Speci men Type: BLOOD SPECIMENOrdering Facility: [facility] Address: [address] [place] [address] Result Comment: Coco mated Glomerular Filtration Rate [...] actual GFR. Performed By: #### 2 4323-8, 65009-8 ####[facility] CHARLOTTENCLIA [id number] [place] [address] [place] Glucose [Mass/Vol] 115 mg/dL High 74-99 [facility] Comment on above: Order Comment: Speci men Type: BLOOD SPECIMENOrdering Facility: [facility] Address: [address] [place] [address] Result Comment: The [place] Diabetes Association (ADA) provides guidance for cutoff [...] Standards of Medical Care in Diabetes 2016, [place] Diabetes Association. Diabetes Care. 2016.39(Suppl 1). Performed By: #### 2 4323-8, 19759-6 ####[facility] ROSY MILLNATHANWANGIELITrae [id number] [place] [address] [place] Potassium [Moles/Vol] 4.1 mmol/L Normal 3.7-5.1 [facility] Comment on above: Order Comment: Cam silva Type: BLOOD SPECIMENOrdering Facility: [facility] Address: [address] [place], [place] [address] Performed By: #### 2 4323-8, ####[facility] MILLNATHANWNCLITrae [id number] [place] [address] [place] Protein [Mass/Vol] 6.7 g/dL Normal 6.3-8.0 [facility] Comment on above: Order Comment: Terii men Type: BLOOD SPECIMENOrdering Facility: [facility] Address: [address] [place] [address] Performed By: #### 2 4323-8, ####[facility] MILLNATHANWANGIELITrae [id number] [place] [address] [place] Sodium [Moles/Vol] 138 mmol/L Normal 136-144 [facility] Comment on above: Order Comment: Speci men Type: BLOOD SPECIMENOrdering Facility: [facility] Address: [address] [place] [address] Performed By: #### 2 4323-8, 92388-1 ####[facility] HOSPITALTrae [id number] [place] [address] [place] Urea nitrogen [Mass/Vol] 15 mg/dL Normal 7-21 [facility] Comment on above: Order Comment: Speci men Type: BLOOD SPECIMENOrdering Facility: [facility] Address: [address] [place] [address] Performed By: #### 2 4323-8, 91733-9 ####[facility] SPRINGFIELDSANCHEZ [id number] [place] [address] [place] Cortis SerPl-ncon 02-09-20 Cortisol [Mass/Vol] 12.3 ug/dL Normal 4.8-19.5 [facility] Comment on above: Order Comment: Speci men Type: BLOOD SPECIMENOrdering Facility: [facility] Address: [address] [place] [address] Result Comment: Prov ided reference range is from 6-10 AM sample collection time.Cortisol Reference Range: 6-10 AM = 4.8-19.5 ug/dL, 4-8 PM = 2.5-11.9 ug/dL Performed By: #### 3 016-3, 2143-6, 3024-7 ####[facility] LABCLIA [id number] [place] [address] [place] MAGNESIUMon 02-08-2025 Magnesium [Mass/Vol] 2.1 mg/dL 1.7 - 2 .3 mg/dL [facility] Magnesium SerPl-mCncon 02-08 Magnesium [Mass/Vol] 2.1 mg/dL Normal 1.7-2.3 [facility] Comment on above: Order Comment: Speci men Type: BLOOD SPECIMENOrdering Facility: [facility] Address: [address] [place] [address] Performed By: #### 2 4323-8, 07071-2 ####[facility] ROSY MILLNEW OXFORDNCLIA [id number] [place] [address] [place] Magnesium [Mass/Vol]on 02-08 Interpretation and review of laboratory results Normal [facility] No Panel Informationon 02-08 Interpretation and review of laboratory results Normal [facility] No Panel InformationOrdered By: Meeta Lau on 02-08-[address] [facility] T4 FREE/FREE THYROXINEon Free T4 [Mass/Vol] 1 ng/dL 0.9 - 1.7 ng/dL [facility] T4 Free SerPl-mCncon 025 Free T4 [Mass/Vol] 1.0 ng/dL Normal 0.9-1.7 [facility] Comment on above: Order Comment: Speci men Type: BLOOD SPECIMENOrdering Facility: [facility] Address: [address] [place] [address] Performed By: #### 3 016-3, 2143-01, 3024-02 ####[facility] LABCLIA [id number] [place] [id number] [place] THYROID STIMULATING HORMONEo n 02-08-2025 TSH Qn 3.57 m[IU]/L [facility] TSH SerPl-aCncon 02-08-2025 TSH Qn 3.570 m[IU]/L Normal 0.270-4.200 [facility] Comment on above: Order Comment: Speci men Type: BLOOD SPECIMENOrdering Facility: [facility] Address: [address] [place] [address] Performed By: #### 3 016-3, 2143-01, 3024-02 ####[facility] LABCLIA [id number] [place] [address] [place] XR CHEST 2V FRONTAL/LATon XR CHEST 2V FRONTAL/LAT Normal [facility] XR Chest PA and Lateralon IMPRESSION: Infusion catheter in satisfactory position. No active cardiopulmonary disease Electric Motorman: MELANIE Transcribe Date/Time: Feb 08 2025 12:27P Dictated by : HARRISON PURI MD This examination was interpreted and the report reviewed and electronically signed by: HARRISON PURI MD on Feb 08 2025 12:29PM [facility] DIVISION OF RADIOLOGY * * *Final Report* [...] soft tissues: Unremarkable. DIVISION OF RADIOLOGY Provider, [facility] Lani [facility] - 02/08/2025 * * *Final Report* * [...] in satisfactory position. No active cardiopulmonary disease Electric Motorman: PSCB Transcribe Date/Time: Feb 08 2025 12:27P Dictated by : HARRISON PURI MD This examination was interpreted and the report reviewed and electronically signed by: HARRISON PURI MD on Feb 08 2025 12:29PM EST [facility] Radiology Study observation (narrative) [facility] XR Chest PA and LateralOrder ed By: Ccf Provider on 02-08-[address] [facility] CNPNon 02-04-2025 CNPN Normal [facility] CBC W Auto Differential pane l (Bld)on 02-01-2025 Basophils (Bld) [#/Vol] 0.03 10*3/uL [facility] Basophils/100 WBC (Bld) 1 % [facility] Differential cell count method Nom (Bld) Auto [facility] Eosinophils (Bld) [#/Vol] 0.06 10*3/uL [facility] Eosinophils/100 WBC (Bld) 2 % [facility] Erythrocyte distribution width (RBC) [Ratio] 11.2 % Low 11.5 - 15.0 % [facility] Hematocrit (Bld) [Volume fraction] 37.8 % 36.0 - 46.0 % [facility] Hemoglobin (Bld) [Mass/Vol] 13.1 g/dL 11.5 - 15.5 g/dL [facility] Immature granulocytes (Bld) [#/Vol] [facility] Immature granulocytes/100 WBC (Bld) 0.3 % [facility] Interpretation and review of laboratory results Abnormal [facility] Lymphocytes (Bld) [#/Vol] 1.46 10*3/uL [facility] Lymphocytes/100 WBC (Bld) 49.8 % [facility] MCH (RBC) [Entitic mass] 32.8 pg 26.0 - 34.[address] [facility] MCHC (RBC) [Mass/Vol] 34.7 g/dL 30.5 - 36.0 g/dL [facility] MCV (RBC) [Entitic vol] 94.7 fL 80.0 - 100.[address] [facility] Monocytes (Bld) [#/Vol] 0.13 10*3/uL [facility] Monocytes/100 WBC (Bld) 4.4 % [facility] Neutrophils (Bld) [#/Vol] 1.24 10*3/uL Low [facility] Neutrophils/100 WBC (Bld) 42.5 % [facility] Nucleated RBC (Bld) [#/Vol] NINF [facility] Nucleated RBC/100 WBC (Bld) [Ratio] 0 % /[address] [facility] Platelet mean volume (Bld) [Entitic vol] 9.3 fL 9.0 - 12.[address] [facility] Platelets (Bld) [#/Vol] 216 10*3/uL [facility] RBC (Bld) [#/Vol] 3.99 10*6/uL 3.90 - 5.2 0 m/uL [facility] WBC (Bld) [#/Vol] 2.93 10*3/uL Low [facility] Basophils (Bld) [#/Vol] 0.03 10*3/uL Normal <0.11 [facility] Comment on above: Order Comment: Speci men Type: BLOOD SPECIMENOrdering Facility: [facility] Address: [address] [place] [address] Performed By: #### 5 7021-8 ####[facility] [id number] [address] STATES OF [facility] Basophils/100 WBC (Bld) 1.0 % Normal [facility] Comment on above: Order Comment: Speci men Type: BLOOD SPECIMENOrdering Facility: [facility] Address: [address] [place] [address] Performed By: #### 5 7021-8 ####[facility] [id number] [place] [address] [place] Differential cell count method Nom (Bld) Auto Normal [facility] Comment on above: Order Comment: Speci men Type: BLOOD SPECIMENOrdering Facility: [facility] Address: [address] [place] [address] Performed By: #### 5 7021-8 ####[facility] IVONNEJuaquinNCSUZY [id number] [place] [address] [place] Eosinophils (Bld) [#/Vol] 0.06 10*3/uL Normal <0.46 [facility] Comment on above: Order Comment: Speci men Type: BLOOD SPECIMENOrdering Facility: [facility] Address: [address] [place] [address] Performed By: #### 5 7021-8 ####[facility] CHARLOTTEANGIEA [id number] [place] [address] [place] Eosinophils/100 WBC (Bld) 2.0 % Normal [facility] Comment on above: Order Comment: Speci men Type: BLOOD SPECIMENOrdering Facility: [facility] Address: [address] [place] [address] Performed By: #### 5 7021-8 ####[facility] HOSPITALTrae [id number] [place] [address] [place] Erythrocyte distribution width (RBC) [Ratio] 11.2 % Low 11.5-15.0 [facility] Comment on above: Order Comment: Speci men Type: BLOOD SPECIMENOrdering Facility: [facility] Address: [address] [place] [address] Performed By: #### 5 7021-8 ####[facility] SPRINGFIELDLIA [id number] [place] [address] [place] Hematocrit (Bld) [Volume fraction] 37.8 % Normal 36.0-46.0 [facility] Comment on above: Order Comment: Speci men Type: BLOOD SPECIMENOrdering Facility: [facility] Address: [address] [place] [address] Performed By: #### 5 7021-8 ####[facility] IVONNEWNCLIA [id number] [place] [address] [place] Hemoglobin (Bld) [Mass/Vol] 13.1 g/dL Normal 11.5-15.5 [facility] Comment on above: Order Comment: Speci men Type: BLOOD SPECIMENOrdering Facility: [facility] Address: [address] [place] [address] Performed By: #### 5 7021-8 ####[facility] CHARLOTTEANGIELIA [id number] [place] [address] [place] Immature granulocytes (Bld) [#/Vol] 10*3/uL Normal <0.10 [facility] Comment on above: Order Comment: Speci men Type: BLOOD SPECIMENOrdering Facility: [facility] Address: [address] [place] [address] Performed By: #### 5 7021-8 ####[facility] SPRINGFIELDLIA [id number] [place] [address] [place] Immature granulocytes/100 WBC (Bld) 0.3 % Normal [facility] Comment on above: Order Comment: Speci men Type: BLOOD SPECIMENOrdering Facility: [facility] Address: [address] [place] [address] Performed By: #### 5 7021-8 ####[facility] CHARLOTTEANGIELIA [id number] [place] [address] [place] Lymphocytes (Bld) [#/Vol] 1.46 10*3/uL Normal 1.00-4.00 [facility] Comment on above: Order Comment: Speci men Type: BLOOD SPECIMENOrdering Facility: [facility] Address: [address] [place] [address] Performed By: #### 5 7021-8 ####[facility] CHARLOTTENCLIA [id number] [place] [address] [place] Lymphocytes/100 WBC (Bld) 49.8 % Normal [facility] Comment on above: Order Comment: Speci men Type: BLOOD SPECIMENOrdering Facility: [facility] Address: [address] [place] [address] Performed By: #### 5 7021-8 ####[facility] [id number] [place] [address] [place] MCH (RBC) [Entitic mass] 32.8 pg Normal 26.0-34.0 [facility] Comment on above: Order Comment: Speci men Type: BLOOD SPECIMENOrdering Facility: [facility] Address: [address] [place] [address] Performed By: #### 5 7021-8 ####[facility] [id number] [place] [address] [place] MCHC (RBC) [Mass/Vol] 34.7 g/dL Normal 30.5-36.0 [facility] Comment on above: Order Comment: Speci men Type: BLOOD SPECIMENOrdering Facility: [facility] Address: [address] [place] [address] Performed By: #### 5 7021-8 ####[facility] CHARLOTTENCLIA [id number] [place] [address] [place] MCV (RBC) [Entitic vol] 94.7 fL Normal 80.0-100.0 [facility] Comment on above: Order Comment: Speci men Type: BLOOD SPECIMENOrdering Facility: [facility] Address: [address] [place] [address] Performed By: #### 5 7021-8 ####[facility] CHARLOTTENCLI [id number] [place] [address] [place] Monocytes (Bld) [#/Vol] 0.13 10*3/uL Normal <0.87 [facility] Comment on above: Order Comment: Speci men Type: BLOOD SPECIMENOrdering Facility: [facility] Address: [address] [place] [address] Performed By: #### 5 7021-8 ####[facility] IVONNEADRIANNE [id number] [place] [address] [place] Monocytes/100 WBC (Bld) 4.4 % Normal [facility] Comment on above: Order Comment: Speci men Type: BLOOD SPECIMENOrdering Facility: [facility] Address: [address] [place] [address] Performed By: #### 5 7021-8 ####[facility] [id number] [place] [address] [place] Neutrophils (Bld) [#/Vol] 1.24 10*3/uL Low 1.45-7.50 [facility] Comment on above: Order Comment: Speci men Type: BLOOD SPECIMENOrdering Facility: [facility] Address: [address] [place] [address] Performed By: #### 5 7021-8 ####[facility] HOSPITALA [id number] [place] [address] [place] Neutrophils/100 WBC (Bld) 42.5 % Normal [facility] Comment on above: Order Comment: Speci men Type: BLOOD SPECIMENOrdering Facility: [facility] Address: [address] [place] [address] Performed By: #### 5 7021-8 ####[facility] CHARLOTTENCLIA [id number] [place] [address] [place] Nucleated RBC (Bld) [#/Vol] 10*3/uL Normal <0.01 [facility] Comment on above: Order Comment: Speci men Type: BLOOD SPECIMENOrdering Facility: [facility] Address: [address] [place] [address] Performed By: #### 5 7021-8 ####[facility] IVONNESOPHIELIA [id number] [place] [address] [place] Nucleated RBC/100 WBC (Bld) [Ratio] 0.0 /100 WBC Normal [facility] Comment on above: Order Comment: Speci men Type: BLOOD SPECIMENOrdering Facility: [facility] Address: [address] [place] [address] Performed By: #### 5 7021-8 ####[facility] CHARLOTTEJACOBA [id number] [place] [address] [place] Platelet mean volume (Bld) [Entitic vol] 9.3 fL Normal 9.0-12.7 [facility] Comment on above: Order Comment: Speci men Type: BLOOD SPECIMENOrdering Facility: [facility] Address: [address] [place] [address] Performed By: #### 5 7021-8 ####[facility] HOSPITALA [id number] [place] [address] [place] Platelets (Bld) [#/Vol] 216 10*3/uL Normal 150-400 [facility] Comment on above: Order Comment: Speci men Type: BLOOD SPECIMENOrdering Facility: [facility] Address: [address] [place] [address] Performed By: #### 5 7021-8 ####[facility] SPRINGFIELDSANCHEZA [id number] [place] [address] [place] RBC (Bld) [#/Vol] 3.99 10*6/uL Normal 3.90-5.20 [facility] Comment on above: Order Comment: Speci men Type: BLOOD SPECIMENOrdering Facility: [facility] Address: [address] [place] [address] Performed By: #### 5 7021-8 ####[facility] [id number] [place] [address] [place] WBC (Bld) [#/Vol] 2.93 10*3/uL Low 3.70-11.00 [facility] Comment on above: Order Comment: Speci men Type: BLOOD SPECIMENOrdering Facility: [facility] Address: [address] [place] [id number] Performed By: #### 5 7021-8 ####[facility] [id number] [place] [address] [place] Comprehensive metabolic 2000 panelOrdered By: Meeta Lau on 02-01-2025 Albumin [Mass/Vol] 3.9 g/dL 3.9 - 4.9 g/dL [facility] ALP [Catalytic activity/Vol] 64 U/L 34 - 123 U/L [facility] ALT [Catalytic activity/Vol] 31 U/L 7 - 38 U/L [facility] Anion gap [Moles/Vol] 13 mmol/L 8 - 15 mmol/L [facility] AST [Catalytic activity/Vol] 19 U/L 13 - 35 U/L [facility] Bilirubin [Mass/Vol] 0.4 mg/dL 0.2 - 1 .3 mg/dL [facility] Calcium [Mass/Vol] 9.6 mg/dL 8.5 - 10. 2 mg/dL [facility] Chloride [Moles/Vol] 105 mmol/L 98 - 10 7 mmol/L [facility] CO2 [Moles/Vol] 22 mmol/L 22 - 30 mmol/L [facility] Creatinine [Mass/Vol] 0.57 mg/dL Low 0.58 - 0.96 mg/dL [facility] GFR/1.73 sq M.predicted among non-blacks MDRD (S/P/Bld) [Vol rate/Area] 98 mL/min/{1.73_m2} - PINF [facility] Comment on above: Estimated Glomerular Filtration [...] 116 mg/dL High 74 - 99 mg/dL [facility] Comment on above: The [place] Di[employer] Association (ADA) provides guidance for [...] Standards of Medical Care in Diabetes 2016, [place] [employer]. Diabetes Care. 2016.39(Suppl 1). Interpretation and review of laboratory results Abnormal [facility] Potassium [Moles/Vol] 4.2 mmol/L 3.7 - 5.1 mmol/L [facility] Protein [Mass/Vol] 6.5 g/dL 6.3 - 8.0 g/dL [facility] Sodium [Moles/Vol] 140 mmol/L 136 - 144 mmol/L [facility] Urea nitrogen [Mass/Vol] 11 mg/dL 7 - 21 mg/dL [facility] Comprehensive metabolic 2000 panelon 02-01-2025 Albumin [Mass/Vol] 3.9 g/dL Normal 3.9-4.9 [facility] Comment on above: Order Comment: Speci men Type: BLOOD SPECIMENOrdering Facility: [facility] Address: [address] [place] [address] Performed By: #### 2 4323-8, ####[facility] [id number] [place] [address] [place] ALP [Catalytic activity/Vol] 64 U/L Normal 34-123 [facility] Comment on above: Order Comment: Speci men Type: BLOOD SPECIMENOrdering Facility: [facility] Address: [address] [place] [address] Performed By: #### 2 4323-8, ####[facility] CHARLOTTENCLIA [id number] [place] [address] [place] ALT [Catalytic activity/Vol] 31 U/L Normal 7-38 [facility] Comment on above: Order Comment: Speci men Type: BLOOD SPECIMENOrdering Facility: [facility] Address: [address] [place] [address] Performed By: #### 2 4323-8, 26539-4 ####[facility] MILLTOWNCLIA [id number] [place] [address] [place] Anion gap [Moles/Vol] 13 mmol/L Normal 8-15 [facility] Comment on above: Order Comment: Speci men Type: BLOOD SPECIMENOrdering Facility: [facility] Address: [address] [place] [address] Performed By: #### 2 4323-8, 57301-5 ####[facility] RIDGEWNCLIA [id number] [place] [address] [place] AST [Catalytic activity/Vol] 19 U/L Normal 13-35 [facility] Comment on above: Order Comment: Speci men Type: BLOOD SPECIMENOrdering Facility: [facility] Address: [address] [place] [address] Performed By: #### 2 4323-8, ####[facility] IVONNEWANGIELIA [id number] [place] [address] [place] Bilirubin [Mass/Vol] 0.4 mg/dL Normal 0.2-1.3 [facility] Comment on above: Order Comment: Speci men Type: BLOOD SPECIMENOrdering Facility: [facility] Address: [address] [place] [address] Performed By: #### 2 4323-8, 68454-8 ####[facility] MILLWNCLIA [id number] [place] [address] [place] Calcium [Mass/Vol] 9.6 mg/dL Normal 8.5-10.2 [facility] Comment on above: Order Comment: Speci men Type: BLOOD SPECIMENOrdering Facility: [facility] Address: [address] [place] [address] Performed By: #### 2 4323-8, ####[facility] MILLWANGIELIA [id number] [place] [address] [place] Chloride [Moles/Vol] 105 mmol/L Normal 98-107 [facility] Comment on above: Order Comment: Speci men Type: BLOOD SPECIMENOrdering Facility: [facility] Address: [address] [place] [address] Performed By: #### 2 4323-8, ####[facility] CHARLOTTENCLIA [id number] [place] [address] [place] CO2 [Moles/Vol] 22 mmol/L Normal 22-30 [facility] Comment on above: Order Comment: Speci men Type: BLOOD SPECIMENOrdering Facility: [facility] Address: [address] [place] [address] Performed By: #### 2 4323-8, ####[facility] SPRINGFIELDLIA [id number] [place] [address] [place] Creatinine [Mass/Vol] 0.57 mg/dL Low 0.58-0.96 [facility] Comment on above: Order Comment: Speci men Type: BLOOD SPECIMENOrdering Facility: [facility] Address: [address] [place] [address] Performed By: #### 2 4323-8, ####[facility] MILLNEW OXFORDNCLIA [id number] [place] [address] [place] Creatinine and Glomerular filtration rate.predicted panel (S/P/Bld) 98 mL/min/1.73m??? Normal >=60 [facility] Comment on above: Order Comment: Cam silva Type: BLOOD SPECIMENOrdering Facility: [facility] Address: [address] [place] [address] Result Comment: Coco mated Glomerular Filtration Rate [...] actual GFR. Performed By: #### 2 4323-8, 91689-8 ####[facility] [id number] [place] [address] [place] Glucose [Mass/Vol] 116 mg/dL High 74-99 [facility] Comment on above: Order Comment: Cam silva Type: BLOOD SPECIMENOrdering Facility: [facility] Address: [address] [place] [address] Result Comment: The [place] Diabetes Association (ADA) provides guidance for cutoff [...] Standards of Medical Care in Diabetes 2016, [place] Diabetes [employer]. Diabetes Care. 2016.39(Suppl 1). Performed By: #### 2 4323-8, 44776-8 ####[facility] HOSPITALA [id number] [place] [address] [place] Potassium [Moles/Vol] 4.2 mmol/L Normal 3.7-5.1 [facility] Comment on above: Order Comment: Speci men Type: BLOOD SPECIMENOrdering Facility: [facility] Address: [address] [place] [address] Performed By: #### 2 4323-8, ####[facility] ROSY IVONNENALDO [id number] [place] [address] [place] Protein [Mass/Vol] 6.5 g/dL Normal 6.3-8.0 [facility] Comment on above: Order Comment: Speci men Type: BLOOD SPECIMENOrdering Facility: [facility] Address: [address] [place] [address] Performed By: #### 2 4323-8, ####[facility] FELI [id number] [place] [address] [place] Sodium [Moles/Vol] 140 mmol/L Normal 136-144 [facility] Comment on above: Order Comment: Speci men Type: BLOOD SPECIMENOrdering Facility: [facility] Address: [address] [place] [address] Performed By: #### 2 4323-8, ####[facility] FELI [id number] [place] [address] [place] Urea nitrogen [Mass/Vol] 11 mg/dL Normal 7-21 [facility] Comment on above: Order Comment: Speci men Type: BLOOD SPECIMENOrdering Facility: [facility] Address: [address] [place] [address] Performed By: #### 2 4323-8, ####[facility] MILLNATHANWNCLIA [id number] [place] [address] [place] MAGNESIUMon 02-01-2025 Magnesium [Mass/Vol] 1.9 mg/dL 1.7 - 2 .3 mg/dL [facility] Magnesium SerPl-mCncon 02-01 Magnesium [Mass/Vol] 1.9 mg/dL Normal 1.7-2.3 [facility] Comment on above: Order Comment: Speci men Type: BLOOD SPECIMENOrdering Facility: [facility] Address: [address] [place] [address] Performed By: #### 2 4323-8, 46223-1 ####[facility] HOSPITALLIA [id number] [place] [id number] [place] Magnesium [Mass/Vol]on 02-01 Interpretation and review of laboratory results Normal [facility] No Panel InformationOrdered By: Meeta Lau on 02-01-[address] [facility] CNPNon 01-26-2025 CNPN Normal [facility] Basic metabolic 2000 panelOr dered By: Meeta Lau on 01-25-2025 Anion gap [Moles/Vol] 9 mmol/L 8 - 15 mmol/L [facility] Calcium [Mass/Vol] 8.9 mg/dL 8.5 - 10. 2 mg/dL [facility] Chloride [Moles/Vol] 102 mmol/L 98 - 10 7 mmol/L [facility] CO2 [Moles/Vol] 24 mmol/L 22 - 30 mmol/L [facility] Creatinine [Mass/Vol] 0.61 mg/dL 0.58 - 0.96 mg/dL [facility] GFR/1.73 sq M.predicted among non-blacks MDRD (S/P/Bld) [Vol rate/Area] 96 mL/min/{1.73_m2} - PINF [facility] Comment on above: Estimated Glomerular Filtration [...] 109 mg/dL High 74 - 99 mg/dL [facility] Comment on above: The [place] Diabete s Association (ADA) provides guidance for [...] Standards of Medical Care in Diabetes 2016, [place] Diabetes [employer]. Diabetes Care. 2016.39(Suppl 1). Interpretation and review of laboratory results Abnormal [facility] Potassium [Moles/Vol] 4.1 mmol/L 3.7 - 5.1 mmol/L [facility] Sodium [Moles/Vol] 135 mmol/L Low 136 - 144 mmol/L [facility] Urea nitrogen [Mass/Vol] 11 mg/dL 7 - 21 mg/dL [facility] Basic metabolic 2000 panelon 01-25-2025 Anion gap [Moles/Vol] 9 mmol/L Normal 8-15 [facility] Comment on above: Order Comment: Speci men Type: BLOOD SPECIMENOrdering Facility: [facility] Address: [address] [place] [address] Performed By: #### 2 4321-2 ####[facility] [id number] [place] [address] [place] Calcium [Mass/Vol] 8.9 mg/dL Normal 8.5-10.2 [facility] Comment on above: Order Comment: Terii men Type: BLOOD SPECIMENOrdering Facility: [facility] Address: [address] [place] [address] Performed By: #### 2 4321-2 ####[facility] SPRINGFIELDLIA [id number] [place] [address] [place] Chloride [Moles/Vol] 102 mmol/L Normal 98-107 [facility] Comment on above: Order Comment: Terii men Type: BLOOD SPECIMENOrdering Facility: [facility] Address: [address] [place] [address] Performed By: #### 2 4321-2 ####[facility]ENTERWNCLIA [id number] [place] [address] [place] CO2 [Moles/Vol] 24 mmol/L Normal 22-30 [facility] Comment on above: Order Comment: Speci men Type: BLOOD SPECIMENOrdering Facility: [facility] Address: [address] [place] [address] Performed By: #### 2 4321-2 ####[facility]ITALA [id number] [place] [address] [place] Creatinine [Mass/Vol] 0.61 mg/dL Normal 0.58-0.96 [facility] Comment on above: Order Comment: Speci men Type: BLOOD SPECIMENOrdering Facility: [facility] Address: [address] [place] [address] Performed By: #### 2 4321-2 ####[facility] [id number] [place] [address] [place] Creatinine and Glomerular filtration rate.predicted panel (S/P/Bld) 96 mL/min/1.73m??? Normal >=60 [facility] Comment on above: Order Comment: Speci men Type: BLOOD SPECIMENOrdering Facility: [facility] Address: [address] [place] [address] Result Comment: Coco mated Glomerular Filtration Rate [...] By: #### 2 4321-2 ####[facility] CHARLOTTENCLIA [id number] [place] [address] [place] Glucose [Mass/Vol] 109 mg/dL High 74-99 [facility] Comment on above: Order Comment: Speci men Type: BLOOD SPECIMENOrdering Facility: [facility] Address: [address] [place], [place] [address] Result Comment: The [place] Diabetes Association (ADA) provides guidance for cutoff [...] Standards of Medical Care in Diabetes 2016, [place] Diabetes [employer]. Diabetes Care. 2016.39(Suppl 1). Performed By: #### 2 4321-2 ####[facility] [id number] [place] [address] [place] Potassium [Moles/Vol] 4.1 mmol/L Normal 3.7-5.1 [facility] Comment on above: Order Comment: Speci men Type: BLOOD SPECIMENOrdering Facility: [facility] Address: [address] [place] [address] Performed By: #### 2 4321-2 ####[facility] [id number] [place] [address] [place] Sodium [Moles/Vol] 135 mmol/L Low 136-144 [facility] Comment on above: Order Comment: Speci men Type: BLOOD SPECIMENOrdering Facility: [facility] Address: [address] [place] [address] Performed By: #### 2 4321-2 ####[facility] [id number] [place] [address] [place] Urea nitrogen [Mass/Vol] 11 mg/dL Normal 7-21 [facility] Comment on above: Order Comment: Speci men Type: BLOOD SPECIMENOrdering Facility: [facility] Address: [address] [place], [place] [address] [address] Performed By: #### 2 4321-2 ####[facility] ROSYMARC CORONADOST. VINCENT WILLIAMSPORT HOSPITALSUZY [id number] [place] [id number] [place] CBC W Auto Differential pane l (Bld)on 01-25-2025 Basophils (Bld) [#/Vol] 0.04 10*3/uL BANNERF [facility] Basophils/100 WBC (Bld) 1.1 % [facility] Differential cell count method Nom (Bld) Auto [facility] Eosinophils (Bld) [#/Vol] 0.14 10*3/uL [facility] Eosinophils/100 WBC (Bld) 3.9 % [facility] Erythrocyte distribution width (RBC) [Ratio] 11.1 % Low 11.5 - 15.0 % [facility] Hematocrit (Bld) [Volume fraction] 38.3 % 36.0 - 46.0 % [facility] Hemoglobin (Bld) [Mass/Vol] 13.3 g/dL 11.5 - 15.5 g/dL [facility] Immature granulocytes (Bld) [#/Vol] BANNERF [facility] Immature granulocytes/100 WBC (Bld) 0.6 % [facility] Interpretation and review of laboratory results Abnormal [facility] Lymphocytes (Bld) [#/Vol] 1.28 10*3/uL [facility] Lymphocytes/100 WBC (Bld) 36 % [facility] MCH (RBC) [Entitic mass] 32.9 pg 26.0 - 34.[address] [facility] MCHC (RBC) [Mass/Vol] 34.7 g/dL 30.5 - 36.0 g/dL [facility] MCV (RBC) [Entitic vol] 94.8 fL 80.0 - 100.[address] [facility] Monocytes (Bld) [#/Vol] 0.17 10*3/uL BANNERF [facility] Monocytes/100 WBC (Bld) 4.8 % [facility] Neutrophils (Bld) [#/Vol] 1.91 10*3/uL [facility] Neutrophils/100 WBC (Bld) 53.6 % [facility] Nucleated RBC (Bld) [#/Vol] [facility] Nucleated RBC/100 WBC (Bld) [Ratio] 0 % /[address] [facility] Platelet mean volume (Bld) [Entitic vol] 9.7 fL 9.0 - 12.[address] [facility] Platelets (Bld) [#/Vol] 200 10*3/uL [facility] RBC (Bld) [#/Vol] 4.04 10*6/uL 3.90 - 5.2 0 m/uL [facility] WBC (Bld) [#/Vol] 3.56 10*3/uL Low [facility] Basophils (Bld) [#/Vol] 0.04 10*3/uL Normal <0.11 [facility] Comment on above: Order Comment: Speci men Type: BLOOD SPECIMENOrdering Facility: [facility] Address: [address] [place] [address] Performed By: #### 5 7021-8 ####[facility] [id number] [place] [address] [place] Basophils/100 WBC (Bld) 1.1 % Normal [facility] Comment on above: Order Comment: Speci men Type: BLOOD SPECIMENOrdering Facility: [facility] Address: [address] [place] [address] Performed By: #### 5 7021-8 ####[facility] [id number] [place] [address] [place] Differential cell count method Nom (Bld) Auto Normal [facility] Comment on above: Order Comment: Speci men Type: BLOOD SPECIMENOrdering Facility: [facility] Address: [address] [place] [address] Performed By: #### 5 7021-8 ####[facility] [id number] [place] [address] [place] Eosinophils (Bld) [#/Vol] 0.14 10*3/uL Normal <0.46 [facility] Comment on above: Order Comment: Speci men Type: BLOOD SPECIMENOrdering Facility: [facility] Address: [address] [place] [address] Performed By: #### 5 7021-8 ####[facility] GINGERA [id number] [place] [address] [place] Eosinophils/100 WBC (Bld) 3.9 % Normal [facility] Comment on above: Order Comment: Speci men Type: BLOOD SPECIMENOrdering Facility: [facility] Address: [address] [place] [address] Performed By: #### 5 7021-8 ####[facility] IVONNENEW OXFORDJACOBA [id number] [place] [address] [place] Erythrocyte distribution width (RBC) [Ratio] 11.1 % Low 11.5-15.0 [facility] Comment on above: Order Comment: Speci men Type: BLOOD SPECIMENOrdering Facility: [facility] Address: [address] [place] [address] Performed By: #### 5 7021-8 ####[facility] IVONNENEW OXFORDJACOBA [id number] [place] [address] [place] Hematocrit (Bld) [Volume fraction] 38.3 % Normal 36.0-46.0 [facility] Comment on above: Order Comment: Speci men Type: BLOOD SPECIMENOrdering Facility: [facility] Address: [address] [place] [address] Performed By: #### 5 7021-8 ####[facility] IVONNENEW OXFORDANGIELIA [id number] [place] [address] [place] Hemoglobin (Bld) [Mass/Vol] 13.3 g/dL Normal 11.5-15.5 [facility] Comment on above: Order Comment: Speci men Type: BLOOD SPECIMENOrdering Facility: [facility] Address: [address] [place] [address] Performed By: #### 5 7021-8 ####[facility] MILLWNCLIA [id number] [place] [address] [place] Immature granulocytes (Bld) [#/Vol] 10*3/uL Normal <0.10 [facility] Comment on above: Order Comment: Speci men Type: BLOOD SPECIMENOrdering Facility: [facility] Address: [address] [place] [address] Performed By: #### 5 7021-8 ####[facility] SPRINGFIELDLIA [id number] [place] [address] [place] Immature granulocytes/100 WBC (Bld) 0.6 % Normal [facility] Comment on above: Order Comment: Speci men Type: BLOOD SPECIMENOrdering Facility: [facility] Address: [address] [place] [address] Performed By: #### 5 7021-8 ####[facility] [id number] [place] [address] [place] Lymphocytes (Bld) [#/Vol] 1.28 10*3/uL Normal 1.00-4.00 [facility] Comment on above: Order Comment: Speci men Type: BLOOD SPECIMENOrdering Facility: [facility] Address: [address] [place] [address] Performed By: #### 5 7021-8 ####[facility] SPRINGFIELDLIA [id number] [place] [address] [place] Lymphocytes/100 WBC (Bld) 36.0 % Normal [facility] Comment on above: Order Comment: Speci men Type: BLOOD SPECIMENOrdering Facility: [facility] Address: [address] [place] [address] Performed By: #### 5 7021-8 ####[facility] [id number] [place] [address] [place] MCH (RBC) [Entitic mass] 32.9 pg Normal 26.0-34.0 [facility] Comment on above: Order Comment: Speci men Type: BLOOD SPECIMENOrdering Facility: [facility] Address: [address] [place] [address] Performed By: #### 5 7021-8 ####[facility] [id number] [place] [address] [place] MCHC (RBC) [Mass/Vol] 34.7 g/dL Normal 30.5-36.0 [facility] Comment on above: Order Comment: Speci men Type: BLOOD SPECIMENOrdering Facility: [facility] Address: [address] [place], [place] [address] Performed By: #### 5 7021-8 ####[facility] [id number] [place] [address] [place] MCV (RBC) [Entitic vol] 94.8 fL Normal 80.0-100.0 [facility] Comment on above: Order Comment: Speci men Type: BLOOD SPECIMENOrdering Facility: [facility] Address: [address] [place] [address] Performed By: #### 5 7021-8 ####[facility] [id number] [place] [address] [place] Monocytes (Bld) [#/Vol] 0.17 10*3/uL Normal <0.87 [facility] Comment on above: Order Comment: Speci men Type: BLOOD SPECIMENOrdering Facility: [facility] Address: [address] [place] [address] Performed By: #### 5 7021-8 ####[facility] [id number] [place] [address] [place] Monocytes/100 WBC (Bld) 4.8 % Normal [facility] Comment on above: Order Comment: Speci men Type: BLOOD SPECIMENOrdering Facility: [facility] Address: [address] [place] [address] Performed By: #### 5 7021-8 ####[facility] MILLTOWNCLIA [id number] [place] [address] [place] Neutrophils (Bld) [#/Vol] 1.91 10*3/uL Normal 1.45-7.50 [facility] Comment on above: Order Comment: Speci men Type: BLOOD SPECIMENOrdering Facility: [facility] Address: [address] [place] [address] Performed By: #### 5 7021-8 ####[facility] MILLWNCLIA [id number] [place] [address] [place] Neutrophils/100 WBC (Bld) 53.6 % Normal [facility] Comment on above: Order Comment: Speci men Type: BLOOD SPECIMENOrdering Facility: [facility] Address: [address] [place] [address] Performed By: #### 5 7021-8 ####[facility] P[facility] RIDGEWNCLIA [id number] [place] [address] [place] Nucleated RBC (Bld) [#/Vol] 10*3/uL Normal <0.01 [facility] Comment on above: Order Comment: Speci men Type: BLOOD SPECIMENOrdering Facility: [facility] Address: [address] [place] [address] Performed By: #### 5 7021-8 ####[facility] MILLTOWNCLIA [id number] [place] [address] [place] Nucleated RBC/100 WBC (Bld) [Ratio] 0.0 /100 WBC Normal [facility] Comment on above: Order Comment: Speci men Type: BLOOD SPECIMENOrdering Facility: [facility] Address: [address] [place] [address] Performed By: #### 5 7021-8 ####[facility] MILLNEW OXFORDNCLIA [id number] [place] [address] [place] Platelet mean volume (Bld) [Entitic vol] 9.7 fL Normal 9.0-12.7 [facility] Comment on above: Order Comment: Speci men Type: BLOOD SPECIMENOrdering Facility: [facility] Address: [address] [place] [address] Performed By: #### 5 7021-8 ####[facility] SPRINGFIELDLIA [id number] [place] [address] [place] Platelets (Bld) [#/Vol] 200 10*3/uL Normal 150-400 [facility] Comment on above: Order Comment: Speci men Type: BLOOD SPECIMENOrdering Facility: [facility] Address: [address] [place] [address] Performed By: #### 5 7021-8 ####[facility] HOSPITALTrae [id number] [place] [address] [place] RBC (Bld) [#/Vol] 4.04 10*6/uL Normal 3.90-5.20 [facility] [place] Comment on above: Order Comment: Speci men Type: BLOOD SPECIMENOrdering Facility: [facility] Address: [address] [place] [address] Performed By: #### 5 7021-8 ####[facility]INGFIELDLIA [id number] [place] [address] [place] WBC (Bld) [#/Vol] 3.56 10*3/uL Low 3.70-11.00 [facility] Comment on above: Order Comment: Speci men Type: BLOOD SPECIMENOrdering Facility: [facility] Address: [address] [place] [address] Performed By: #### 5 7021-8 ####[facility]LOTT[facility]CLIA [id number] [place] [address] [place] CNPNon 01-21-2025 CNPN Normal [facility] CNPNon 01-19-2025 CNPN Normal [facility] CBC W Auto Differential pane l (Bld)on 01-18-2025 Basophils (Bld) [#/Vol] 0.06 10*3/uL [facility] Basophils/100 WBC (Bld) 1.1 % [facility] Differential cell count method Nom (Bld) Auto [facility] Eosinophils (Bld) [#/Vol] 0.22 10*3/uL [facility] Eosinophils/100 WBC (Bld) 3.9 % [facility] Erythrocyte distribution width (RBC) [Ratio] 11.5 % 11.5 - 15.0 % [facility] Hematocrit (Bld) [Volume fraction] 42.5 % 36.0 - 46.0 % [facility] Hemoglobin (Bld) [Mass/Vol] 14.9 g/dL 11.5 - 15.5 g/dL [facility] Immature granulocytes (Bld) [#/Vol] [facility] Immature granulocytes/100 WBC (Bld) 0.4 % [facility] Lymphocytes (Bld) [#/Vol] 1.95 10*3/uL [facility] Lymphocytes/100 WBC (Bld) 34.6 % [facility] MCH (RBC) [Entitic mass] 33.3 pg 26.0 - 34.[address] [facility] MCHC (RBC) [Mass/Vol] 35.1 g/dL 30.5 - 36.0 g/dL [facility] MCV (RBC) [Entitic vol] 94.9 fL 80.0 - 100.[address] [facility] Monocytes (Bld) [#/Vol] 0.47 10*3/uL [facility] Monocytes/100 WBC (Bld) 8.3 % [facility] Neutrophils (Bld) [#/Vol] 2.91 10*3/uL [facility] Neutrophils/100 WBC (Bld) 51.7 % [facility] Nucleated RBC (Bld) [#/Vol] [facility] Nucleated RBC/100 WBC (Bld) [Ratio] 0 % /[address] [facility] Platelet mean volume (Bld) [Entitic vol] 9.3 fL 9.0 - 12.[address] [facility] Platelets (Bld) [#/Vol] 212 10*3/uL [facility] RBC (Bld) [#/Vol] 4.48 10*6/uL 3.90 - 5.2 0 m/uL [facility] WBC (Bld) [#/Vol] 5.63 10*3/uL [facility] Basophils (Bld) [#/Vol] 0.06 10*3/uL Normal <0.11 [facility] Comment on above: Order Comment: Speci men Type: BLOOD SPECIMENOrdering Facility: [facility] Address: [address] [place] [address] Performed By: #### 5 7021-8 ####[facility] MILLTOWNCLIA [id number] [place] [address] [place] Basophils/100 WBC (Bld) 1.1 % Normal [facility] Comment on above: Order Comment: Speci men Type: BLOOD SPECIMENOrdering Facility: [facility] Address: [address] [place] [address] Performed By: #### 5 7021-8 ####[facility] MILLWNCLIA [id number] [place] [address] [place] Differential cell count method Nom (Bld) Auto Normal [facility] Comment on above: Order Comment: Speci men Type: BLOOD SPECIMENOrdering Facility: [facility] Address: [address] [place] [address] Performed By: #### 5 7021-8 ####[facility] MILLTOWNCLIA [id number] [place] [address] [place] Eosinophils (Bld) [#/Vol] 0.22 10*3/uL Normal <0.46 [facility] Comment on above: Order Comment: Speci men Type: BLOOD SPECIMENOrdering Facility: [facility] Address: [address] [place] [address] Performed By: #### 5 7021-8 ####[facility] [id number] [place] [address] [place] Eosinophils/100 WBC (Bld) 3.9 % Normal [facility] Comment on above: Order Comment: Speci men Type: BLOOD SPECIMENOrdering Facility: [facility] Address: [address] [place] [address] Performed By: #### 5 7021-8 ####[facility] [id number] [place] [address] [place] Erythrocyte distribution width (RBC) [Ratio] 11.5 % Normal 11.5-15.0 [facility] Comment on above: Order Comment: Speci men Type: BLOOD SPECIMENOrdering Facility: [facility] Address: [address] [place] [address] Performed By: #### 5 7021-8 ####[facility] [id number] [place] [address] [place] Hematocrit (Bld) [Volume fraction] 42.5 % Normal 36.0-46.0 [facility] Comment on above: Order Comment: Speci men Type: BLOOD SPECIMENOrdering Facility: [facility] Address: [address] [place] [address] Performed By: #### 5 7021-8 ####[facility] [id number] [place] [address] [place] Hemoglobin (Bld) [Mass/Vol] 14.9 g/dL Normal 11.5-15.5 [facility] Comment on above: Order Comment: Speci men Type: BLOOD SPECIMENOrdering Facility: [facility] Address: [address] [place] [address] Performed By: #### 5 7021-8 ####[facility] CHAR[facility]OTTENCLI [id number] [place] [address] [place] Immature granulocytes (Bld) [#/Vol] 10*3/uL Normal <0.10 [facility] Comment on above: Order Comment: Speci men Type: BLOOD SPECIMENOrdering Facility: [facility] Address: [address] [place], [place] [address] Performed By: #### 5 7021-8 ####[facility] [id number] [place] [address] [place] Immature granulocytes/100 WBC (Bld) 0.4 % Normal [facility] Comment on above: Order Comment: Speci men Type: BLOOD SPECIMENOrdering Facility: [facility] Address: [address] [place] [address] Performed By: #### 5 7021-8 ####[facility] [id number] [place] [address] [place] Lymphocytes (Bld) [#/Vol] 1.95 10*3/uL Normal 1.00-4.00 [facility] Comment on above: Order Comment: Speci men Type: BLOOD SPECIMENOrdering Facility: [facility] Address: [address] [place] [address] Performed By: #### 5 7021-8 ####[facility] [id number] [place] [address] [place] Lymphocytes/100 WBC (Bld) 34.6 % Normal [facility] Comment on above: Order Comment: Speci men Type: BLOOD SPECIMENOrdering Facility: [facility] Address: [address] [place] [address] Performed By: #### 5 7021-8 ####[facility] [id number] [place] [address] [place] MCH (RBC) [Entitic mass] 33.3 pg Normal 26.0-34.0 [facility] Comment on above: Order Comment: Speci men Type: BLOOD SPECIMENOrdering Facility: [facility] Address: [address] [place], [place] [address] Performed By: #### 5 7021-8 ####[facility] MILLWNCLIA [id number] [place] [address] [place] MCHC (RBC) [Mass/Vol] 35.1 g/dL Normal 30.5-36.0 [facility] Comment on above: Order Comment: Speci men Type: BLOOD SPECIMENOrdering Facility: [facility] Address: [address] [place] [address] Performed By: #### 5 7021-8 ####[facility] CHARLOTTENCLIA [id number] [place] [address] [place] MCV (RBC) [Entitic vol] 94.9 fL Normal 80.0-100.0 [facility] Comment on above: Order Comment: Speci men Type: BLOOD SPECIMENOrdering Facility: [facility] Address: [address] [place] [address] Performed By: #### 5 7021-8 ####[facility] [id number] [place] [address] [place] Monocytes (Bld) [#/Vol] 0.47 10*3/uL Normal <0.87 [facility] Comment on above: Order Comment: Speci men Type: BLOOD SPECIMENOrdering Facility: [facility] Address: [address] [place] [address] Performed By: #### 5 7021-8 ####[facility]CL[facility] [id number] [place] [address] [place] Monocytes/100 WBC (Bld) 8.3 % Normal [facility] Comment on above: Order Comment: Speci men Type: BLOOD SPECIMENOrdering Facility: [facility] Address: [address] [place] [address] Performed By: #### 5 7021-8 ####[facility]DL[facility] [id number] [place] [address] [place] Neutrophils (Bld) [#/Vol] 2.91 10*3/uL Normal 1.45-7.50 [facility] Comment on above: Order Comment: Speci men Type: BLOOD SPECIMENOrdering Facility: [facility] Address: [address] [place] [address] Performed By: #### 5 7021-8 ####[facility] RIDGEWNCLIA [id number] [place] [address] [place] Neutrophils/100 WBC (Bld) 51.7 % Normal [facility] Comment on above: Order Comment: Speci men Type: BLOOD SPECIMENOrdering Facility: [facility] Address: [address] [place] [address] Performed By: #### 5 7021-8 ####[facility]CL[facility] [id number] [place] [address] [place] Nucleated RBC (Bld) [#/Vol] 10*3/uL Normal <0.01 [facility] Comment on above: Order Comment: Speci men Type: BLOOD SPECIMENOrdering Facility: [facility] Address: [address] [place] [address] Performed By: #### 5 7021-8 ####[facility] [id number] [place] [address] [place] Nucleated RBC/100 WBC (Bld) [Ratio] 0.0 /100 WBC Normal [facility] Comment on above: Order Comment: Speci men Type: BLOOD SPECIMENOrdering Facility: [facility] Address: [address] [place] [address] Performed By: #### 5 7021-8 ####[facility]CL[facility] [id number] [place] [address] [place] Platelet mean volume (Bld) [Entitic vol] 9.3 fL Normal 9.0-12.7 [facility] Comment on above: Order Comment: Speci men Type: BLOOD SPECIMENOrdering Facility: [facility] Address: [address] [place] [address] Performed By: #### 5 7021-8 ####[facility] IVONNEWNCLIA [id number] [place] [address] [place] Platelets (Bld) [#/Vol] 212 10*3/uL Normal 150-400 [facility] Comment on above: Order Comment: Speci men Type: BLOOD SPECIMENOrdering Facility: [facility] Address: [address] [place] [address] Performed By: #### 5 7021-8 ####[facility]CL[facility] [id number] [place] [address] [place] RBC (Bld) [#/Vol] 4.48 10*6/uL Normal 3.90-5.20 [facility] Comment on above: Order Comment: Speci men Type: BLOOD SPECIMENOrdering Facility: [facility] Address: [address] [place] [address] Performed By: #### 5 7021-8 ####[facility]CL[facility] [id number] [place] [address] [place] WBC (Bld) [#/Vol] 5.63 10*3/uL Normal 3.70-11.00 [facility] Comment on above: Order Comment: Speci men Type: BLOOD SPECIMENOrdering Facility: [facility] Address: [address] [place] [address] Performed By: #### 5 7021-8 ####[facility]CLIA [id number] [place] [address] [place] CORTISOL, SERUMon 01-18-2025 Cortisol [Mass/Vol] 21.7 ug/dL High 4.8 - 19 .5 ug/dL [facility] Comment on above: Provided reference laura foster is from 6-10 AM sample collection time. Cortisol Reference Range: 6-10 AM = 4.8-19.5 ug/dL, 4-8 PM = 2.5-11.9 ug/dL Comprehensive metabolic 2000 panelOrdered By: Meeta Lau on 01-18-2025 Albumin [Mass/Vol] 4.3 g/dL 3.9 - 4.9 g/dL [facility] ALP [Catalytic activity/Vol] 71 U/L 34 - 123 U/L [facility] ALT [Catalytic activity/Vol] 29 U/L 7 - 38 U/L [facility] Anion gap [Moles/Vol] 14 mmol/L 8 - 15 mmol/L [facility] AST [Catalytic activity/Vol] 22 U/L 13 - 35 U/L [facility] Bilirubin [Mass/Vol] 0.6 mg/dL 0.2 - 1 .3 mg/dL [facility] Calcium [Mass/Vol] 9.7 mg/dL 8.5 - 10. 2 mg/dL [facility] Chloride [Moles/Vol] 107 mmol/L 98 - 10 7 mmol/L [facility] CO2 [Moles/Vol] 20 mmol/L Low 22 - 30 mmol/L [facility] Creatinine [Mass/Vol] 0.7 mg/dL 0.58 - 0.96 mg/dL [facility] GFR/1.73 sq M.predicted among non-blacks MDRD (S/P/Bld) [Vol rate/Area] 93 mL/min/{1.73_m2} - PINF [facility] Comment on above: Estimated Glomerular Filtration [...] 121 mg/dL High 74 - 99 mg/dL [facility] Comment on above: The [place] Diab[employer] Association (ADA) provides guidance for [...] Standards of Medical Care in Diabetes 2016, [place] [employer]. Diabetes Care. 2016.39(Suppl 1). Interpretation and review of laboratory results Abnormal [facility] Potassium [Moles/Vol] 3.8 mmol/L 3.7 - 5.1 mmol/L [facility] Protein [Mass/Vol] 6.8 g/dL 6.3 - 8.0 g/dL [facility] Sodium [Moles/Vol] 141 mmol/L 136 - 144 mmol/L [facility] Urea nitrogen [Mass/Vol] 12 mg/dL 7 - 21 mg/dL [facility] Comprehensive metabolic 2000 panelon 01-18-2025 Albumin [Mass/Vol] 4.3 g/dL Normal 3.9-4.9 [facility] Comment on above: Order Comment: Cam silva Type: BLOOD SPECIMENOrdering Facility: [facility] Address: [address] [place] [address] Performed By: #### 2 4323-8, ####[facility] [id number] [place] [address] [place] ALP [Catalytic activity/Vol] 71 U/L Normal 34-123 [facility] Comment on above: Order Comment: Terii men Type: BLOOD SPECIMENOrdering Facility: [facility] Address: [address] [place] [address] Performed By: #### 2 4323-8, ####[facility] [id number] [place] [address] [place] ALT [Catalytic activity/Vol] 29 U/L Normal 7-38 [facility] Comment on above: Order Comment: Speci men Type: BLOOD SPECIMENOrdering Facility: [facility] Address: [address] [place] [address] Performed By: #### 2 4323-8, ####[facility] MILLTOWNCLIA [id number] [place] [address] [place] Anion gap [Moles/Vol] 14 mmol/L Normal 8-15 [facility] Comment on above: Order Comment: Speci men Type: BLOOD SPECIMENOrdering Facility: [facility] Address: [address] [place] [address] Performed By: #### 2 432-8, ####[facility] MILLTOWNCLIA [id number] [place] [address] [place] AST [Catalytic activity/Vol] 22 U/L Normal 13-35 [facility] Comment on above: Order Comment: Speci men Type: BLOOD SPECIMENOrdering Facility: [facility] Address: [address] [place], [place] [address] Performed By: #### 2 432-8, ####[facility] MILLTOWNCLIA [id number] [place] [address] [place] Bilirubin [Mass/Vol] 0.6 mg/dL Normal 0.2-1.3 [facility] Comment on above: Order Comment: Speci men Type: BLOOD SPECIMENOrdering Facility: [facility] Address: [address] [place] [address] Performed By: #### 2 4328, ####[facility] MILLTOWNCLIA [id number] [place] [address] [place] Calcium [Mass/Vol] 9.7 mg/dL Normal 8.5-10.2 [facility] Comment on above: Order Comment: Speci men Type: BLOOD SPECIMENOrdering Facility: [facility] Address: [address] [place], [place] [address] Performed By: #### 2 4323-8, ####[facility]CL[facility] [id number] [place] [address] [place] Chloride [Moles/Vol] 107 mmol/L Normal 98-107 [facility] Comment on above: Order Comment: Speci men Type: BLOOD SPECIMENOrdering Facility: [facility] Address: [address] [place] [address] Performed By: #### 2 4323-8, 85509-0 ####[facility] [id number] [place] [address] [place] CO2 [Moles/Vol] 20 mmol/L Low 22-30 [facility] Comment on above: Order Comment: Speci men Type: BLOOD SPECIMENOrdering Facility: [facility] Address: [address] [place] [address] Performed By: #### 2 4323-8, 23187-1 ####[facility] [id number] [place] [address] [place] Creatinine [Mass/Vol] 0.70 mg/dL Normal 0.58-0.96 [facility] Comment on above: Order Comment: Speci men Type: BLOOD SPECIMENOrdering Facility: [facility] Address: [address] [place] [address] Performed By: #### 2 4323-8, 54563-0 ####[facility]DL[facility] [id number] [place] [address] [place] [facility] [place] Creatinine and Glomerular filtration rate.predicted panel (S/P/Bld) 93 mL/min/1.73m??? Normal >=60 [facility] Comment on above: Order Comment: Speci men Type: BLOOD SPECIMENOrdering Facility: [facility] Address: [address] [place] [address] Result Comment: Coco mated Glomerular Filtration Rate [...] actual GFR. Performed By: #### 2 432-8, ####[facility] IVONNEKORINLITrae [id number] [place] [address] [place] Glucose [Mass/Vol] 121 mg/dL High 74-99 [facility] Comment on above: Order Comment: Cam silva Type: BLOOD SPECIMENOrdering Facility: [facility] Address: [address] [place] [address] Result Comment: The [place] Diabetes Association (ADA) provides guidance for cutoff [...] Standards of Medical Care in Diabetes 2016, [place] Diabetes [employer]. Diabetes Care. 2016.39(Suppl 1). Performed By: #### 2 43210-16, ####[facility]CL[facility] [id number] [place] [address] [place] Potassium [Moles/Vol] 3.8 mmol/L Normal 3.7-5.1 [facility] Comment on above: Order Comment: Cam silva Type: BLOOD SPECIMENOrdering Facility: [facility] Address: [address] [place] [address] Performed By: #### 2 4323-8, ####[facility]OTTENCLIA [id number] [place] [address] [place] Protein [Mass/Vol] 6.8 g/dL Normal 6.3-8.0 [facility] Comment on above: Order Comment: Speci men Type: BLOOD SPECIMENOrdering Facility: [facility] Address: [address] [place] [address] Performed By: #### 2 4323-8, 85792-8 ####[facility] CHAR[facility]OTTENCL[facility] [id number] [place] [address] [place] Sodium [Moles/Vol] 141 mmol/L Normal 136-144 [facility] Comment on above: Order Comment: Speci men Type: BLOOD SPECIMENOrdering Facility: [facility] Address: [address] [place] [address] Performed By: #### 2 4323-8, 91495-9 ####[facility] [id number] [place] [address] [place] Urea nitrogen [Mass/Vol] 12 mg/dL Normal 7-21 [facility] Comment on above: Order Comment: Speci men Type: BLOOD SPECIMENOrdering Facility: [facility] Address: [address] [place] [address] Performed By: #### 2 4323-8, ####[facility]DL[facility] [id number] [place] [address] [place] Cortsteve Flynnl-Qianaon 01-19-20 25 Cortisol [Mass/Vol] 21.7 ug/dL High 4.8-19.5 [facility] Comment on above: Order Comment: Speci men Type: BLOOD SPECIMENOrdering Facility: [facility] Address: [address] [place] [address] Result Comment: Prov ided reference range is from 6-10 AM sample collection time.Cortisol Reference Range: 6-10 AM = 4.8-19.5 ug/dL, 4-8 PM = 2.5-11.9 ug/dL Performed By: #### 3 024-7, 3016-3, 2143-6 ####[facility] LABCLIA [id number] [address] [address] [place] Cortisol [Mass/Vol]on 2024 Interpretation and review of laboratory results Abnormal [facility] MAGNESIUMon 01-18-2025 Magnesium [Mass/Vol] 2.2 mg/dL 1.7 - 2 .3 mg/dL [facility] Magnesium SerPl-mCncon 01-18 Magnesium [Mass/Vol] 2.2 mg/dL Normal 1.7-2.3 [facility] Comment on above: Order Comment: Speci men Type: BLOOD SPECIMENOrdering Facility: [facility] Address: [address] [place] [id number] Performed By: #### 2 4323-8, 10774-8 ####[facility] HOSPITALLIA [id number] [place] [address] [place] Magnesium [Mass/Vol]on 01-18 Interpretation and review of laboratory results Normal [facility] No Panel Informationon 01-18 Interpretation and review of laboratory results Normal [facility] No Panel InformationOrdered By: Meeta Lau on 01-18-[address] [facility] T4 FREE/FREE THYROXINEon Free T4 [Mass/Vol] 1 ng/dL 0.9 - 1.7 ng/dL [facility] T4 Free SerPl-mCncon 025 Free T4 [Mass/Vol] 1.0 ng/dL Normal 0.9-1.7 [facility] Comment on above: Order Comment: Speci men Type: BLOOD SPECIMENOrdering Facility: [facility] Address: [address] [place] [address] Performed By: #### 3 024-7, 3016-3, 2143-01 ####[facility] LABCLIA [id number] [address] [address] [place] THYROID STIMULATING HORMONEo n 01-18-2025 TSH Qn 3.58 m[IU]/L [facility] TSH SerPl-aCncon 01-18-2025 TSH Qn 3.580 m[IU]/L Normal 0.270-4.200 [facility] Comment on above: Order Comment: Speci men Type: BLOOD SPECIMENOrdering Facility: [facility] Address: [address] [place] [address] Performed By: #### 3 024-7, 3016-3, 2143-6 ####[facility] LABCLIA [id number] [place] [address] [place] CNPNon 01-17-2025 CNPN Normal [facility] CNPNon 01-14-2025 CNPN Normal [facility] [place] FEMALE PELVIS TRANSVAGon 01-14-2025 [place] FEMALE PELVIS TRANSVAG Invalid Interpretation Code [facility] CNPNon 01-13-2025 CNPN Normal [facility] BRIEF OP NOTon 01-10-2025 BRIEF OP NOT HNO ID: [id number] Author: NIDIA WATERMAN MD Service: Interventional Radiology Author Type: Physician Type: Brief Op Note Filed: 01/10/2025 10:39 Note Text: BRIEF OPERATIVE / PROCEDURE NOTE LOG ID: [id number] SURGERY/PROCEDURE DATE: 01/10/2025 INCISION/PROCEDURE START TIME: 10:16 AM INCISION CLOSE/PROCEDURE END TIME: 10:33 AM SURGEON(S)/PROCEDURALIST (S) AND DICTATING MACHINE MECHANIC(S): Surgeons and Role: * Nidia Waterman MD [...] DATE: January 10, 2025 TIME: 10:38 AM [facility] HISTORY PHYSICALon HISTORY PHYSICAL HNO ID: [id number] Author: NIDIA WATERMAN MD Service: Interventional Radiology [...] Date BX OF BREAST; INCISIONAL Left 11/2024 [id number]. hx of eye surgery Prior to Admission medications as of 01/10/25 0947 Medication Sig Last Dose Taking lisinopril (ZESTRIL) 5 mg tablet Take 2.5 mg by mouth once daily. omeprazole (PRILOSEC) 40 mg capsule Take 40 mg by mouth once daily. ALLERGIES Allergen Reactions Gdgbvle-Ahk-Cpy Red* Myalgia Objective PHYSICAL EXAM: The remainder [...] hospital problems. * Medication and Non-Pharmacologic VTE Prophylaxis/Anticoagulan ts VTE Prophylaxis: VTE prophylaxis appropriate Provisional Diagnosis/Treatment Plan: Left breast cancer, for venous chest port placement. Sedation Goal: Moderate SIGNATURE: Nidia Waterman MD PATIENT NAME: Liz Robles DATE: January 10, 2025 TIME: 10:02 AM [facility] IR PORTOCATH PLACEMENTon IR PORTOCATH PLACEMENT * * *Final Report * * * DATE OF EXAM: Jan 10 2025 10:33AM [facility] 0792 - IR PORTOCATH PLACEMENT / PROCEDURE [...] I att (more content not included)... Normal [facility] US AXILLA ONLY LTon 12-11 [facility] US AXILLA ONLY LT Normal [facility] US Axilla - lefton IMPRESSION: Normal study. Negative for axillary adenopathy. Therefore, the scheduled axillary lymph node biopsy was not performed. Clinical follow up is recommended. The findings were discussed with the patient. BI-RADS Category 2: Benign Interpreting Radiologist: Jerome Rider M.D. Electronically signed on: 01/07/2025 Electric Motorman: ZEHRA Transcribe Date/Time: Jan 07 2025 8:04A Dictated by : JEROME RIDER MD This examination was interpreted and the report reviewed and electronically signed by: JEROME RIDER MD on Jan 07 2025 8:20AM [facility] DIVISION OF RADIOLOGY * * *Final Report* * * DATE OF EXAM: Jan 07 2025 8:04AM [facility] 0591 - [facility] US AXILLA ONLY LT / PROCEDURE REASON: multiple diagnoses * * * * Physician Interpretation * * * * [place] [address] #[id number] - [facility] US AXILLA ONLY LT HISTORY: 69 year-old [...] architecture is identified. DIVISION OF RADIOLOGY [facility] * * *Final Report* * * DATE OF EXAM: Jan 07 2025 8:04AM [facility] 0591 - [place] US AXILLA ONLY LT / PROCEDURE REASON: multiple diagnoses * * * * Physician Interpretation * * * * [address] [place] [address] #[id number] - [facility] US AXILLA ONLY LT HISTORY: 69 year-old [...] Jerome Rider M.D. Electronically signed on: 01/07/2025 Electric Motorman: ZEHRA Transcribe Date/Time: Jan 07 2025 8:04A Dictated by : JEROME RIDER MD This examination was interpreted and the report reviewed and electronically signed by: JEROME RIDER MD on Jan 07 2025 8:20AM EST [facility] Radiology Study observation (narrative) [facility] US Axilla - leftOrdered By: Ccf Provider on 01-07-[address] [facility] CNOVon 01-06-2025 CNOV Normal [facility] MRI LIVER WO/W IVCONon 01-06 MRI LIVER WO/W IVCON [facility] CBC panel Auto (Bld)on 01-05 Erythrocyte distribution width (RBC) [Ratio] 11.6 % 11.5 - 15.0 % [facility] Hematocrit (Bld) [Volume fraction] 44.3 % 36.0 - 46.0 % [facility] Hemoglobin (Bld) [Mass/Vol] 15.2 g/dL 11.5 - 15.5 g/dL [facility] Interpretation and review of laboratory results Normal [facility] MCH (RBC) [Entitic mass] 32.9 pg 26.0 - 34.[address] [facility] MCHC (RBC) [Mass/Vol] 34.3 g/dL 30.5 - 36.0 g/dL [facility] MCV (RBC) [Entitic vol] 95.9 fL 80.0 - 100.[address] [facility] Nucleated RBC (Bld) [#/Vol] NINF [facility] Platelet mean volume (Bld) [Entitic vol] 9.2 fL 9.0 - 12.[address] [facility] Platelets (Bld) [#/Vol] 260 10*3/uL [facility] RBC (Bld) [#/Vol] 4.62 10*6/uL 3.90 - 5.2 0 m/uL [facility] WBC (Bld) [#/Vol] 6.9 10*3/uL [facility] Erythrocyte distribution width (RBC) [Ratio] 11.6 % Normal 11.5-15.0 [facility] Comment on above: Order Comment: Speci men Type: BLOOD SPECIMENOrdering Facility: [facility] Address: [address] [place] [address] Performed By: #### 5 8410-2 ####[facility] [id number] [address] [place] Hematocrit (Bld) [Volume fraction] 44.3 % Normal 36.0-46.0 [facility] Comment on above: Order Comment: Speci men Type: BLOOD SPECIMENOrdering Facility: [facility] Address: [address] [place] [address] Performed By: #### 5 8410-2 ####[facility] [id number] [address] [place] Hemoglobin (Bld) [Mass/Vol] 15.2 g/dL Normal 11.5-15.5 [facility] Comment on above: Order Comment: Speci men Type: BLOOD SPECIMENOrdering Facility: [facility] Address: [address] [place] [address] Performed By: #### 5 8410-2 ####[facility] [id number] [place] [address] [place] MCH (RBC) [Entitic mass] 32.9 pg Normal 26.0-34.0 [facility] Comment on above: Order Comment: Speci men Type: BLOOD SPECIMENOrdering Facility: [facility] Address: [address] [place] [address] Performed By: #### 5 8410-2 ####[facility] IVONNESOPHIELIA [id number] [place] [address] [place] MCHC (RBC) [Mass/Vol] 34.3 g/dL Normal 30.5-36.0 [facility] Comment on above: Order Comment: Speci men Type: BLOOD SPECIMENOrdering Facility: [facility] Address: [address] [place] [address] Performed By: #### 5 8410-2 ####[facility] [id number] [place] [address] [place] MCV (RBC) [Entitic vol] 95.9 fL Normal 80.0-100.0 [facility] Comment on above: Order Comment: Speci men Type: BLOOD SPECIMENOrdering Facility: [facility] Address: [address] [place] [address] Performed By: #### 5 8410-2 ####[facility] [id number] [place] [address] [place] Nucleated RBC (Bld) [#/Vol] 10*3/uL Normal <0.01 [facility] Comment on above: Order Comment: Speci men Type: BLOOD SPECIMENOrdering Facility: [facility] Address: [address] [place] [address] Performed By: #### 5 8410-2 ####[facility]ITAL[facility] [id number] [place] [address] [place] Platelet mean volume (Bld) [Entitic vol] 9.2 fL Normal 9.0-12.7 [facility] Comment on above: Order Comment: Speci men Type: BLOOD SPECIMENOrdering Facility: [facility] Address: [address] [place] [address] Performed By: #### 5 8410-2 ####[facility] [id number] [place] [address] [place] Platelets (Bld) [#/Vol] 260 10*3/uL Normal 150-400 [facility] Comment on above: Order Comment: Speci men Type: BLOOD SPECIMENOrdering Facility: [facility] Address: [address] [place] [address] Performed By: #### 5 8410-2 ####[facility] [id number] [place] [address] [place] RBC (Bld) [#/Vol] 4.62 10*6/uL Normal 3.90-5.20 [facility] Comment on above: Order Comment: Speci men Type: BLOOD SPECIMENOrdering Facility: [facility] Address: [address] [place] [address] Performed By: #### 5 8410-2 ####[facility] [id number] [place] [address] [place] WBC (Bld) [#/Vol] 6.90 10*3/uL Normal 3.70-11.00 [facility] Comment on above: Order Comment: Speci men Type: BLOOD SPECIMENOrdering Facility: [facility] Address: [address] [place] [address] Performed By: #### 5 8410-2 ####[facility] [id number] [place] [address] [place] CNPNon 01-05-2025 CNPN Telephone (MEXR) -------- LIZ ROBLES ([id number]) 1955 F Date Time Provider Department 01/05/25 MELIA DEVI During your visit today, we recorded the following information about you: Allergies As of Date: 01/05/2025 Noted Allergy Reaction [id number] REDUCTASE INHIBIT*12/13/2024 17 - Myalgia Date Reviewed: [...] Encounter Status:Closed by MELIA DEVI on 01/05/25 [facility] Normal [facility] PT panel Coag (PPP)Ordered B y: Meeta Lau on 01-05-2025 INR Coag (PPP) [Relative time] 1 {INR} 0.9 - 1.[address] [facility] Comment on above: Vitamin K Antagonist (VKA) Therapeutic Range: INR 2 to 3 (Target INR of 2.5) Note: For patients treated with VKA drugs, such as warfarin, the [place] [employer] 2012 Guideline recommends [...] to 3.5 (target INR of 3). Deng GARDNER et kody. Chest 2012, 141:7S-47S Aileen LEVI et al. [facility] 2017, 70: 252-289 Interpretation and review of laboratory results Normal [facility] PT Coag (PPP) [Time] 10.4 s NINF [facility] PT panel Coag (PPP)on 2024 INR Coag (PPP) [Relative time] 1.0 {INR} Normal 0.9-1.3 [facility] Comment on above: Order Comment: Specserina silva Type: BLOOD SPECIMENOrdering Facility: [facility] Address: [address] [place] [address] Result Comment: Genna min K Antagonist (VKA) Therapeutic Range: INR 2 to 3 (Target INR of 2.5)Note: For patients treated with VKA drugs, such as warfarin, the [place] [employer] 2012 Guideline recommends [...] of 2.5 to 3.5 (target INR of 3).Deng GARDNER et kody. Chest 2012, 141:7S-47SAileen LEVI et al. [facility] 2017, 70: 252-289 Performed By: #### 3 4528-0 ####[facility] [id number] [address] [place] PT Coag (PPP) [Time] 10.4 s Normal <13.1 [facility] Comment on above: Order Comment: Terii ricardo Type: BLOOD SPECIMENOrdering Facility: [facility] Address: [address] [place] [address] Performed By: #### 3 4528-0 ####[facility] [id number] [place] [id number] [place] CNOVSPon 01-04-2025 CNOVSP Normal [facility] CNPNon 01-04-2025 CNPN Normal [facility] HBV core Ab Ser Qlon 025 HBV core Ab Ql (S) Negative Normal Negative [facility] Comment on above: Order Comment: Speci men Type: BLOOD SPECIMENOrdering Facility: [facility] Address: [address] [place] [address] Result Comment: No e vidence of current or past infection with Hepatitis B virus. Should recent infection be suspected, repeat testing may be considered 3-4 weeks after this draw. Performed By: #### 2 2322-2, 5195-3, 84552-7 ####[facility] LABCLIA [id number] [address] [place] HBV surface Ab Ql (S)on 12-10 HBV surface Ab Qn (S) <8.00 Normal [facility] Comment on above: Order Comment: Terii ricardo Type: BLOOD SPECIMENOrdering Facility: [facility] Address: [address] [place] [address] Result Comment: <8 m IU/mL: No serological evidence of immunity to Hepatitis B Virus.>/= 8 to <12 mIU/mL: No serological evidence of immunity to Hepatitis B Virus.>/= 12 mIU/mL: Consistent with serological evidence of immunity to Hepatitis B Virus. Performed By: #### 2 2322-2, 5195-3, 08606-2 ####[facility] LABIA [id number] [place] [address] [place] HBV surface Ab Ser Qlon 12-10 HBV surface Ab Ql (S) Negative Normal [facility] Comment on above: Order Comment: Terii ricardo Type: BLOOD SPECIMENOrdering Facility: [facility] Address: [address] [place] [address] Result Comment: No s erological evidence of immunity to Hepatitis B Virus. Performed By: #### 2 2322-2, 5195-3, 35769-9 ####[facility] LABCLIA [id number] [place] [address] [place] HBV surface Ag Ser Qlon 12-10 HBV surface Ag Ql (S) Negative Normal Negative [facility] Comment on above: Order Comment: Speci men Type: BLOOD SPECIMENOrdering Facility: [facility] Address: [address] [place] [address] Performed By: #### 2 2322-2, 5195-3, 14094-6 ####[facility] LABCLIA [id number] [place] [address] [place] HCV Ab Ser Qlon 01-04-2025 HCV Ab Ql (S) Negative Normal Negative [facility] Comment on above: Order Comment: Speci men Type: BLOOD SPECIMENOrdering Facility: [facility] Address: [address] [place] [address] Result Comment: The result suggests no evidence of infection with Hepatitis C virus. Should recent infection be suspected, repeat testing may be considered 4-6 weeks after this draw. Performed By: #### 1 6128-1 ####[facility] LABIA [id number] [place] [address] [place] MRI BREAST 3D POST PROCESSIN Harley 01-04-2025 MRI BREAST 3D POST PROCESSING * * *Final Report* * * DATE OF EXAM: Jan 04 2025 10:24AM [facility] 0788 - MRI BREAST 3D POST PROCESSING / PROCEDURE REASON: multiple diagnoses * * * * Physician Interpretation * * * * [facility] [address] [place] [address] #[id number] - MRI BREAST WO/W IVCON JACINTO #[id number] - MRI BREAST 3D POST PROCESSING HISTORY: [...] completed on an independent workstation. An additional 8-hmvgen-pmmk resolution sequence was performed after the first two 1 minute post-contrast sequences. Complex volumetric analysis requiring post processing was performed using a semi-automated software XINTECacad, on an independent workstation by the physician, [...] Kelsey Rose M.D. Electronically signed on: 01/05/2025 Electric Motorman: ZEHRA Transcribe Date/Time: Jan 04 2025 10:08A Dictated by : KELSEY ROSE MD This examination was interpreted and the report reviewed and electronically signed by: KELSEY RSOE MD on Jan 05 2025 7:30AM EST [id number] [facility] MRI BREAST WO/W IVCON BILon 01-04-2025 MRI BREAST WO/W IVCON JACINTO * * *Final Report* * * DATE OF EXAM: Jan 04 2025 10:23AM [facility] 0773 - MRI BREAST WO/W IVCON JACINTO / PROCEDURE REASON: multiple diagnoses * * * * Physician Interpretation * * * * [address] [place] [address] #[id number] - MRI BREAST WO/W IVCON JACINTO #[id number] - MRI BREAST 3D POST PROCESSING HISTORY: [...] completed on an independent workstation. An additional 7-dzpoit-oguy resolution sequence was performed after the first two 1 minute post-contrast sequences. Complex volumetric analysis requiring post processing was performed using a semi-automated software XINTECacad, on an independent workstation by the physician, [...] Kelsey Rose M.D. Electronically signed on: 01/05/2025 Electric Motorman: ZEHRA Transcribe Date/Time: Jan 04 2025 10:08A Dictated by : KELSEY ROSE MD This examination was interpreted and the report reviewed and electronically signed by: KELSEY ROSE MD on Jan 05 2025 7:30AM EST [id number] [facility]27-[facility] 12-21-2024 CNPN Normal [facility] CT ABD/PEL W IVCONon 025 CT ABD/PEL W IVCON Invalid Interpretation Code [facility] CT CHEST WO IVCONon 12-15-[address] CHEST WO IVCON Invalid Interpretation Code [facility] CNOVon 12-13-2024 CNOV Normal [facility] CNPNon 12-13-2024 CNPN Normal [facility] CBC panel Auto (Bld)on 12-08 Erythrocyte distribution width (RBC) [Ratio] 11.4 % Low 11.5 - 15.0 % [facility] Hematocrit (Bld) [Volume fraction] 43.7 % 36.0 - 46.0 % [facility] Hemoglobin (Bld) [Mass/Vol] 15.1 g/dL 11.5 - 15.5 g/dL [facility] Interpretation and review of laboratory results Abnormal [facility] MCH (RBC) [Entitic mass] 33.2 pg 26.0 - 34.[address] [facility] MCHC (RBC) [Mass/Vol] 34.6 g/dL 30.5 - 36.0 g/dL [facility] MCV (RBC) [Entitic vol] 96 fL 80.0 - 100.[address] [facility] Nucleated RBC (Bld) [#/Vol] NINF [facility] Platelet mean volume (Bld) [Entitic vol] 9.8 fL 9.0 - 12.[address] [facility] Platelets (Bld) [#/Vol] 232 10*3/uL [facility] RBC (Bld) [#/Vol] 4.55 10*6/uL 3.90 - 5.2 0 m/uL [facility] WBC (Bld) [#/Vol] 5.42 10*3/uL [facility] Erythrocyte distribution width (RBC) [Ratio] 11.4 % Low 11.5-15.0 [facility] Comment on above: Order Comment: Cam silva Type: BLOOD SPECIMEN [facility] Address: [address] [place] [address] Performed By: #### 5 8410-2 #### [facility] CLIA [id number] [address] [place] [address] [place] Hematocrit (Bld) [Volume fraction] 43.7 % Normal 36.0-46.0 [facility] Comment on above: Order Comment: Cam silva Type: BLOOD SPECIMEN [facility] Address: [address] [place] [address] Performed By: #### 5 8410-2 #### [facility] CLIA [id number] [address] [place] [address] [place] Hemoglobin (Bld) [Mass/Vol] 15.1 g/dL Normal 11.5-15.5 [facility] Comment on above: Order Comment: Cam silva Type: BLOOD SPECIMEN [facility] Address: [address] [place] [address] Performed By: #### 5 8410-2 #### [facility] CLIA [id number] [address] MCH (RBC) [Entitic mass] 33.2 pg Normal 26.0-34.0 [facility] Comment on above: Order Comment: Speci men Type: BLOOD SPECIMEN [facility] Address: [address] [place] [address] Performed By: #### 5 8410-2 #### [facility] CLIA [id number] [address] MCHC (RBC) [Mass/Vol] 34.6 g/dL Normal 30.5-36.0 [facility] Comment on above: Order Comment: Speci men Type: BLOOD SPECIMEN [facility] Address: [address] [place] [address] Performed By: #### 5 8410-2 #### [facility] CLIA [id number] [address] MCV (RBC) [Entitic vol] 96.0 fL Normal 80.0-100.0 [facility] Comment on above: Order Comment: Speci men Type: BLOOD SPECIMEN [facility] Address: [address] [place] [address] Performed By: #### 5 8410-2 #### [facility] CLIA [id number] [address] Nucleated RBC (Bld) [#/Vol] 10*3/uL Normal <0.01 [facility] Comment on above: Order Comment: Speci men Type: BLOOD SPECIMEN [facility] Address: [address] [place] [address] Performed By: #### 5 8410-2 #### [facility] CLIA [id number] [address] Platelet mean volume (Bld) [Entitic vol] 9.8 fL Normal 9.0-12.7 [facility] Comment on above: Order Comment: Speci men Type: BLOOD SPECIMEN [facility] Address: [address] [place] [address] Performed By: #### 5 8410-2 #### [facility] CLIA [id number] [address] [place] [address] [place] [facility] [place] Platelets (Bld) [#/Vol] 232 10*3/uL Normal 150-400 [facility] Comment on above: Order Comment: Speci men Type: BLOOD SPECIMEN [facility] Address: [address] [place] [address] Performed By: #### 5 8410-2 #### [facility] CLIA [id number] [address] [place] [address] [place] RBC (Bld) [#/Vol] 4.55 10*6/uL Normal 3.90-5.20 [facility] Comment on above: Order Comment: Speci men Type: BLOOD SPECIMEN [facility] Address: [address] [place] [address] Performed By: #### 5 8410-2 #### [facility] CLIA [id number] [address] [place] WBC (Bld) [#/Vol] 5.42 10*3/uL Normal 3.70-11.00 [facility] Comment on above: Order Comment: Speci men Type: BLOOD SPECIMEN [facility] Address: [address] [place] [address] Performed By: #### 5 8410-2 #### [facility] CLIA [id number] [address] [place] CNOVon 12-08-2024 CNOV Normal [facility] CNPNon 12-08-2024 CNPN Normal [facility] Comprehensive metabolic 2000 panelon 12-08-2024 Albumin [Mass/Vol] 4.4 g/dL 3.9 - 4.9 g/dL [facility] ALP [Catalytic activity/Vol] 80 U/L 34 - 123 U/L [facility] ALT [Catalytic activity/Vol] 24 U/L 7 - 38 U/L [facility] Anion gap [Moles/Vol] 10 mmol/L 8 - 15 mmol/L [facility] AST [Catalytic activity/Vol] 22 U/L 13 - 35 U/L [facility] Bilirubin [Mass/Vol] 0.4 mg/dL 0.2 - 1 .3 mg/dL [facility] Calcium [Mass/Vol] 9.9 mg/dL 8.5 - 10. 2 mg/dL [facility] Chloride [Moles/Vol] 102 mmol/L 98 - 10 7 mmol/L [facility] CO2 [Moles/Vol] 27 mmol/L 22 - 30 mmol/L [facility] Creatinine [Mass/Vol] 0.77 mg/dL 0.58 - 0.96 mg/dL [facility] GFR/1.73 sq M.predicted among non-blacks MDRD (S/P/Bld) [Vol rate/Area] 83 mL/min/{1.73_m2} - PINF [facility] Comment on above: Estimated Glomerular Filtration [...] 102 mg/dL High 74 - 99 mg/dL [facility] Comment on above: The [place] Di[employer] (ADA) provides guidance for [...] Standards of Medical Care in Diabetes 2016, [place] [employer]. Diabetes Care. 2016.39(Suppl 1). Interpretation and review of laboratory results Abnormal [facility] Potassium [Moles/Vol] 4.4 mmol/L 3.7 - 5.1 mmol/L [facility] Protein [Mass/Vol] 7.4 g/dL 6.3 - 8.0 g/dL [facility] Sodium [Moles/Vol] 139 mmol/L 136 - 144 mmol/L [facility] Urea nitrogen [Mass/Vol] 15 mg/dL 7 - 21 mg/dL [facility] Albumin [Mass/Vol] 4.4 g/dL Normal 3.9-4.9 [facility] Comment on above: Order Comment: Speci men Type: BLOOD SPECIMEN Ordering Facility: [facility] Address: [address] [place] [address] Performed By: #### 2 4323-8 #### [facility] CLIA [id number] [address] ALP [Catalytic activity/Vol] 80 U/L Normal 34-123 [facility] Comment on above: Order Comment: Speci men Type: BLOOD SPECIMEN Ordering Facility: [facility] Address: [facility] [place] [address] Performed By: #### 2 4323-8 #### [facility] CLIA [id number] [address] ALT [Catalytic activity/Vol] 24 U/L Normal 7-38 [facility] Comment on above: Order Comment: Speci men Type: BLOOD SPECIMEN Ordering Facility: [facility] Address: [address] [place] [address] Performed By: #### 2 4323-8 #### [facility] CLIA [id number] [address] Anion gap [Moles/Vol] 10 mmol/L Normal 8-15 [facility] Comment on above: Order Comment: Speci men Type: BLOOD SPECIMEN Ordering Facility: [facility] Address: [address] [place] [address] Performed By: #### 2 4323-8 #### [facility] CLIA [id number] [address] AST [Catalytic activity/Vol] 22 U/L Normal 13-35 [facility] Comment on above: Order Comment: Speci men Type: BLOOD SPECIMEN Ordering Facility: [facility] Address: [address] [place] [address] Performed By: #### 2 4323-8 #### [facility] CLIA [id number] [address] [place] Bilirubin [Mass/Vol] 0.4 mg/dL Normal 0.2-1.3 [facility] Comment on above: Order Comment: Speci men Type: BLOOD SPECIMEN Ordering Facility: [facility] Address: [address] [place] [address] Performed By: #### 2 4323-8 #### [facility] CLIA [id number] [address] [place] [address] [place] Calcium [Mass/Vol] 9.9 mg/dL Normal 8.5-10.2 [facility] Comment on above: Order Comment: Speci men Type: BLOOD SPECIMEN Ordering Facility: [facility] Address: [address] [place] [address] Performed By: #### 2 4323-8 #### [facility] CLIA [id number] [address] [place] [address] [place] Chloride [Moles/Vol] 102 mmol/L Normal 98-107 [facility] Comment on above: Order Comment: Speci men Type: BLOOD SPECIMEN Ordering Facility: [facility] Address: [address] [place] [address] Performed By: #### 2 4323-8 #### [facility] CLIA [id number] [address] [place] [address] [place] CO2 [Moles/Vol] 27 mmol/L Normal 22-30 [facility] Comment on above: Order Comment: Speci men Type: BLOOD SPECIMEN Ordering Facility: [facility] Address: [address] [place] [address] Performed By: #### 2 4323-8 #### [facility] CLIA [id number] [address] [place] [address] [place] Creatinine [Mass/Vol] 0.77 mg/dL Normal 0.58-0.96 [facility] Comment on above: Order Comment: Speci men Type: BLOOD SPECIMEN Ordering Facility: [facility] Address: [address] [place] [address] Performed By: #### 2 4323-8 #### [facility] CLIA [id number] [address] [place] [address] [place] Creatinine and Glomerular filtration rate.predicted panel (S/P/Bld) 83 mL/min/1.73m??? Normal >=60 [facility] Comment on above: Order Comment: Cam silva Type: BLOOD SPECIMEN Ordering Facility: [facility] Address: [address] [place] [address] Result Comment: Coco mated Glomerular Filtration Rate [...] GFR. Performed By: #### 2 4323-8 #### [facility] CLIA [id number] [address] [place] [address] [place] Glucose [Mass/Vol] 102 mg/dL High 74-99 [facility] Comment on above: Order Comment: Cam silva Type: BLOOD SPECIMEN Ordering Facility: [facility] Address: [address] [place] [address] Result Comment: The [place] [employer] (ADA) provides guidance for cutoff [...] Standards of Medical Care in Diabetes 2016, [place] [employer]. Diabetes Care. 2016.39(Suppl 1). Performed By: #### 2 4323-8 #### [facility] CLIA [id number] [address] [place] [id number] [place] Potassium [Moles/Vol] 4.4 mmol/L Normal 3.7-5.1 [facility] Comment on above: Order Comment: Cam silva Type: BLOOD SPECIMEN Ordering Facility: [facility] Address: [address] [place] [id number] Performed By: #### 2 4323-8 #### [facility] CLIA [id number] [address] [place] [address] [place] Protein [Mass/Vol] 7.4 g/dL Normal 6.3-8.0 [facility] Comment on above: Order Comment: Speci men Type: BLOOD SPECIMEN Ordering Facility: [facility] Address: [address] [place] [address] Performed By: #### 2 4323-8 #### [facility] CLIA [id number] [address] [place] [address] [place] Sodium [Moles/Vol] 139 mmol/L Normal 136-144 [facility] Comment on above: Order Comment: Speci men Type: BLOOD SPECIMEN Ordering Facility: [facility] Address: [address] [place] [address] Performed By: #### 2 4323-8 #### [facility] CLIA [id number] [address] [place] [address] [place] Urea nitrogen [Mass/Vol] 15 mg/dL Normal 7-21 [facility] Comment on above: Order Comment: Speci men Type: BLOOD SPECIMEN Ordering Facility: [facility] Address: [address] [place] [address] Performed By: #### 2 4323-8 #### [facility] CLIA [id number] [address] [place] [address] [place] BREAST MARKERSon 12-07-2024 Block ID [id number] NVx zpNvCWUbuQKiU5UnxiifNIhw GK1lXU6wqHnzzVGqhHAyKBOa RuRxt8ztp481pYUyl8dhKSBB IOopAACMVUp3mKwhB55lv3T0 AojqK48suLTxGMX2UPIbWSUv xFEkLMJwBBI7EXAnwYRgU0wx NGZwDW8kdubsNIycYGtbRLHf vXA9KKBebPDfH0BuDFVvKOyz EJLkrho1SbRoNw1tcQYwbNcd MFxwYXJkXHBsYWluXGZzMjAg QTFccGFyfQ== [facility] Breast Tumor Grade Grade 2 [facility] Case Number [id number] IYOmy8zdNADibHEvFzOzZaJt EwLdUxqucKObBOUcLdJga0jb x630rVReh1mxZHZaZgE3sVNb MKBfyLXjS628EBVkFKnaf1pe h1XzDHJzpMWev7P1JJUSznay yLt5vCqrB35es0G5SvjcR4fg PNYdSIAmB0AdHI3cDNOvSbe9 AHZ8LSF3UFGbZMQbJ8BdNW3o BCJzrWAuZBz8j4cvhPgdHOIv ZCJ5l3uhVVbtmrHzMN3jyq6y tHp4f2fumjWmWWBfBRMrhVAK QRMoR4PkwJdsYd8jiSn1gJkv XwnkRHU6Iql1AA1snu54ttn9 bKxwWVBzqoioDfN7NVpkZAAe xnzpAXy5BOlvVXVmnTF8DHVu vNLlH4DdDVQiHE1fxse3NIS2 BXhmVWQkOyV1SQFckDEwPLUk qBjqPNbdv372YJH5EvWpJG3z W8Ktu8S6qZ9caODaMHDmvPQs AdRzJESmcu1kdIRxEZcne1Wr ADL4gbK1uHPnvSKmMYAlYX78 Bhyac8EvPgiiWTS2PLVowxKk z9Cva7scVgXgxeGmI4ohA7Vf WWWhFJNjCUIzHdEajoMhw9Zk h6YufXRnlIn5y5lrVXTmBJRg oNegb6etMUQ2QZJwQ5N3tKVy b0ynXHhbPNLexGX3qgL0UANr gIJbT8PczO1wDNJoER2vogz9 h3chCFZ5BAbxSWHtTwL6qhK3 WHTptBUqVLNbjZiqEGocd510 TOE0DoOaCQOsy5InX8RqaIcu D34ktRobN48oOKVepVnubO9r fHcflX5yUeMcJtZkWSvahGtb bGFpblxmMVxmczIwXGxhbmcx YTDmQOcnA4eeOdGpKXEhdZok GRjvg7QrSLIxCGQdPtIrKrB2 XGO9SQk6JjniTIX5 [facility] Cold Ischemia Time >1 Hour [facility] Disclaimer y0gazGDgVBPhsDLdEHDt NVx3 sNJfo5Q1eupgOU4oiUcmpJt1 uYbsFNAtvlY0eVXsUFcmo2ss OSD7j9plcqcrUEHvOLqnIs5r wSUtoTugZkArFECuFYs5lB96 PHWaqI1wmAGoVTodqcUrSJxa xyKrhmGiZrr2IAZ8ySyhACHt quxaSsI8GYviMRHinwhyENc1 PGorBXRlsQQ8QBYymDHcW4Ay JAYoLF4lneh4JKP2GYtkYSCy SfD0XUGldSIeYRDhiNrnSPmu a655ITD4LjNyIYYxe9N2uvVh WyBcCBAxhGF8glC6ONVhXY8d bzpjy5wmQApjJPtgTKRkdxD8 khT2UPSymTWcI1GizT1qZLIz FT6kuligx1eyTFV6VYvePXLe KDKzUTvkHNKiVfArP3UlNVLg cequZPRaRdktkqY0RHncJg7g DOQwzkokQBK3TGokuWJnJBBe r2YvXRhQIWfxMVoqQ3yxzO5k goxrpQDhBSOoKPLgvgPbyk6i pdFdWSBiOWMzB2QuucerrFje fuPtNeTgoT92ch9wxUV6a3Tl TT5yK8SdHRYbqK69ta5cnSUy jxWzI7MjpNCozcZrW0kxy10d I6VsbVLgxW9gp8j1rFItuVXg xUJucqE1bF0pGUTqy8TjKKrc kpRgKmTpskAjOUEdja7ghdDg BEG2GIDbLPIoSTHvr0VzzS9j HHczKy3pVNQxvmuxv1q6bIxv IENsZXZlbGFuZCBDbGluaWNc eXamSMmoWSm6TqGsUs8sYQM7 UWzwNCEqlYPpK7ynUMR1dX0m r9i7VZNxMAEZMCDhzaZ6x7H8 FC8dRWjqpN5fGKMkiYAfjC5c spTeOM5mwP9zL0WfcAQfIDpy b8FnrHOuTBLFy4YmghJBFY9f rnEkUFoyq6JpjPJtOQKSpI9v mEEnKWvfb3NrytKJu0OaxEBx ePkgUVLyZ7zuRK5ioIn1SRar IEluZGlhbiBSaXZlciBNZWRp I9UtHCBatbZlkiraZNJqoWiw KHijPGx1fWMBc7A7kIRTs3Ru aIBqxPpmd8AyUI7xw19hRX3n aOa3SWnrRAiuYYZeqNBpegDz YSFybrZgf9CkuwAbj7b7mYDU BOiGTWQohGVywiZbZS66fw7t A87pZG9nMP9drsFsz1MlsXro x5BneSJpdCSciTO1NJXey0Nz PbXzkcYyxMCbzoJtVI5xHOTf nRJofmYcBRL5LHEuRROWXYBl YZXLWETTAWKgnxKdHHa9jLA9 TABlyT7yPCToM0dBLFKrryBl xCEyqQNeAKVoxL0ysOCyUd2j bSBoaWdoLWNvbXBsZXhpdHkg tDBmiDmoLh3hUOknf4AxyVKg oJOxZCNxBSMoPEYcXn0uMSAe zJ6eK0CtACB6daUos1EiPsZX fJW0QPOwb7UnPIHvt5OeDoLx efMtYGOmYVTcJGBkjK17HPO2 uShohZczveVkBC1qXOPyrwVy GRLfPSBtmN3cUI6mfGFrzgYq CX6wNR2rB9D6eNUkMVZxifUs l7qdRPU0VLxeTTRxvMXxcUDl YXRlbHkuXHBhcn0= [facility] ER % staining [facility] ER status Negative [facility] Estrogen Receptor (Staining Intensity) Not Applicable [facility] Estrogen Receptor External Control Present and Stained as Expected [facility] Estrogen Receptor Internal Control Present and Stained as Expected [facility] Fixative Formalin, 10% Neutra l Buffered [facility] HER2 IHC Score 2+ [facility] HER2 IHC Status Equivocal for HER2 Overexpression [facility] Interpretation Comment and Reference Range t4dqiTDsUKEltWWjLMZqKTh5 sQVni7G6ytnwWB6nwVsqwNu4 yMcrZEIigwJ1pLQhJIaca7cc FSB2p1emusyuJYLqNTgyFc7q eMEopFknXtIwZ8Syp8AeQIq8 fKbsSlGmQFBtAUt6mN42AZMe eF2weHAiQWqwhvXrTXdydaFe ikQsWai3FKF4eOyaKGLkuqdp SrM8RSslCJJlmbhwFIs7XPth BEJcrHC9BORpvKVnG1OtRCDm UQ0hkre4WQY7NLqsEVQnItS5 VZOszMPuSGWraXyoHFzyf982 DFA3IxLvVPOpu8A6gzBxXaMt ENRlxCZ6rmX6TOEyLV7yjkda d6xzQGpiZPloGHNjydI0eqD1 RQKyjBThX6SheU5zWNBqQJ7m nltdv4bwROA1WVspJXCaIEAz QEthKSAyQWNnMLZoOaJxN9Uy RUKzYiXxIF4kIHZPAT7oZJWq o1KnPZ5lnI3lOUGSLQQucEGo zlM1FKWwonh3rZHsM9WdkO1u jbmuHk4hGGDRWF5rQSaqGXQ2 ZXIgdGhhbiBvciBlcXVhbCB0 phAxTHDmFgS3qXShjGHfu6Nq X5DuuWEleDFvW02ik1gfUUNd RCErd9WwoZq2ZC7smVIkCZE7 YDxywO7yCGRlnaCVAxVrNwHb DMAkRZMcQaZ3oMVgbSTav3Xd O3CdeACfkDOdY78xt1maCAGt DEMoi5gfyN3sdEJkpaCfNQJu geCClDItbprrRjAev7OrZPTy g8HcH1BnHTVisoC6uCJwQLHv QCXuJwM1kENtuCWee2FgV3Zc lHLvbRBpT09zg9jgAGVkEKMv b2EtsDu1AS7szYNeRXY6DDjk mL6oFMWpzoSPEvLbiuUMJnPd NfIjVHCyKIIwVX0qDQGkgWHc M81dd0jwUOBaORLfWWwrvIp4 LB2zKVKdqxyrRTPriVdkPjDc DNCrvpXiWJIeohnxcuLwt5Vf BFDCMlVEkY76vq8diSD9t9Rw PG0th6IkaGwmkIQkLQYvHFWG u7TqmZa4FAXjDcksBhETz61x pYD1JHjzcJ40SV2gDAEcyHOh aB9wDDQpptDhTYiceFDaOtNt foBrl6SqjZ0mdogxdQ3eQ7Oc WCBostG6oFElFYFnFAAyEpA7 xU6zreBbRYcndn8oLJEsboVQ bKLuco0ySHiiLRZdMOgpX2Wp pkY8ktNrt1AnmkT9TWYkj81v wRW9YLHsCY2psgLuWOYjiBQa bmluZyBvYnNlcnZlZCBpbiBn veZbqZOnTHOaEH7lJQIxIC0v KHC9pV7aTGMplUknExVviOEz IU8dH3F6uLLsJWjhBeu7YKcl K45nfSfedXHsLNMmqF04IC5r tOTqWB7dARA4XCjpmZ5iVAbt OPwaTGG9CXYkxTnxznYbCHMq l1YxpFGgo7CuG2XooGIsFAWd yzPBJYdluWj1MZZrSMh4ZS4e TCL3KWyvcT3lNM6mIBncR17c cGxldGUgZmFpbnQgbWVtYnJh xwZkw4VczN4zgaaufV5vdWGa ctI9yULbRL0cYZLyuTQsNJKm AHRdULLoJeJ9zO9gzhEyYNcr gg2miYXkXDCxjsw2vKMEwiXj xoMzQAMutQrogeVNo93lMJ76 zpqcMFDpyhx8jOBfJ91th4mm HSYrhJsnepBuGcRxq1vdd7ry lFAkiQLhmTwgHkLuq3VmBCBN MlxpICAoRVJCQjIpIFxpMCBz yNN8dJQlRekpGpv0g3Irf3Cl bmNlIGluIHNpdHUgaHlicmlk qGwehFgrgkUtSqgLKEzjFp8q WFKdjJYtoEWyyh5kHZwlWXXg TTOmCEA8rQXiRKexIGJdC02c vBBeTVXtEAErOCW2mMjpBUWp BJ9pDXEwSTHmZCHxOETrUXDk ZXggdGVzdCBpZiBGSVNIIHdh uuAke1QpNMI5XGD1bL0nCZ8q nZdoBY0ti6j5IFWrwbHyVKjn HW7pzS83DDLzDIIutcjwBGAo iBnwTv57INZzy0GrMJAnqJ86 TKYpe9IykUOeADZrumo7kFNj Ak6bUD6xgRlvelEgO4uxu3t9 aCBhIGxvdyBsZXZlbCAoMSUt MTAlKSBvZiBFUiBleHByZXNz sI7tLIK1VVkuaSHxf0exl5Rx L2eknYddmRB3DTN9sBIjWZEg ktHzzCvczIBvEWXzWWMoKU5p IHRoZSBvdmVyYWxsIGJlbmVm lGBos7EdMA0hd5LswH6xBNRp TNJvlRybtmQus0OiMLBrONGl RL72EQpfzNhvdL32TGdzbwTp DWtmSC9bAUKgZUQIUYZ2hLRu h8Qda23dEGQ5iPM4qPU8RLJ7 xmPshfIifCYelTkxRHE3REFm p6WmHsneXYXdmzTbaDWaPGRq njTkXDHnJK57voZosjCvE39k q5yfWKSqDTWmiXnobHDxPMQj v4AiLV9iw7FlzP2gBTZdBVY5 wTSvjD1obnOVn56gBHYehUYd uS7jwKVzgAAqePxkmVJznaNs n1i3DQNeFP9lRMLlHHkykFei rByhr4OsalZkcAi9daMcjrVp eEV2EGFtR4MlEO19hePovpPs AZzauehqaeRembDvHhhtrV9d kQUwmyMzh2C7WD7niQF3WFDn JA4pPXX1bRYvl9Irh79zdTKr NuqtWSRerT6qWPVjlE5umHCz ICFiFXPZOK2qW8G9pSOtRYEc bmNlcnMuXHBhcn0= [facility] Latest ASCO/CAP guidelines for fixation met Yes [facility] Method r6kyhVUvAZOehBOiFEMl NVx3 mCZiv7X9lhdoEN5zlTvawEd7 jWogCVYgviP9kTWwRJayn9bc QCN2g4ydgqkjIMQqDNmtNm3g mSBtsNmfHfTdS1Btf0NuJOv7 cFpjMoWlLDRnANk5rD10LCSu pY2ymBNsCJaxwfNkSFabhmXi haNwLco1YZO5VMAaKTZsNLsc XLTzEnYgKia4NAPiU84mmNIx VGW2RTPzLBLrzONsCZXuOMG4 VKTybFCeC5qyMGOyZS8vebgd NOhzXJhaWKAfbMU5YPLwpUHf B5YwDCVpEGgmFZNmnhp2CnAf En3pzROnePpmOMliD0dnnR4v GjY8FRgnB0dcsB4uCMw9WKgt VFKlmAW7ntL3BCVbkXJhX4Rj uC9zWRIuKN8cvmu4k4owUBY6 WFoxMQQtFmO7tcB5IPHfnEWn MJvoiPKefdc1jIqnFFpnuqHl HQRoTPGDc8Hmd3xvznLMOXQi dZHnfbmrfDEkATEiQPTPq18w IGFuZCBEcnVnIEFkbWluaXN0 yuZ2lT2zBWdIFRDiZLGnDHIh BGN8FVGvhnCzdeCqYHMjsXDx cQWTrAM6HV3fRZFWtNGir48u VPLgGMHsdfJDusjjJSL0DYUm aCwqt5U8EwNMLRErdDJpDKUy tck2yGILcm9mEIU5WJDsrtLu FxUwTME4w0R7AATnrxg3vBVk VsNEQNZvHATgLKB6LHQqtdOh ofGoCYJfvHXmjWDDhJQ5NS1p KMPGuLHiq66hNYZwKOGvulRR vhmpQQZ1OQXgtKlvs4G7CkOV QGNraHYqFSUrbqg1bILPOPWd GZO2MYsNUuntdCPpILAfPLBO HAKzD6tpPGWhUVpkNhIriDZr UWTAZIWdR5MpPXB2p4YuyPXx KTH7S3NgphcoFLfdzFKkPCKb yN4elbhzBF38iRTmEQu1VYY6 NCuaCRDakGNcXFQnIUVkz4Cy r32mDBZfX2EweA6qRJPtj1Ei NTiwoiZodXYkVf2oaYBxOKGx ZBMiRJZccnAgAHAgukHzY4Yh cmRhbmNlIHdpdGggdGhlIGd1 tIEnxZbeEWDcXDAyae95JFOz ZiemsUevQLKfIDWoP9SjMGKb P2ydoJmlk1YbW8ukjkzkCJwb H46zg5zwN8iacCDzDL7vRRIa NIAJh0noOQbxDP6jXDFzRMIf Y2XiHYDwgWvrxK6oiQS8og2a QWxsaXNvbiBLSCwgZXQgYWwu IMUPi2Les8kqilQtehKhOFKz E2XaxRZlh77iQBLqY5XkqB2c KOFmh3DlbtsvwH5dXxUwLWZ2 DADponJmitybGG8vjpcmYG5g Q22biQK6lKBjZsBOaHyizPUm tESKzkHbrI1shGN5rqLrkcGn uFhmDNEetZhaD4Wks9XsYK9r vrldSC3jCJN1fO1uq1stc6Wt KPo8uFZjwEezYYMPmGAxlSDt FVyhYXDfB4jeRNM6bX9nGJmk IxQCPXWzOLhgAHWsEMNtVK1p rRudGAZkADp2OSR6IIE1Uh3b GA3WHDubYOAbTiUxWRqeRZQ8 NFxjZjEgLlxwYXIgIFxwYXIg FVlrCEyopk1ansIpkmIuNCB4 c4PjYPMsAGvwMHnfjsJxMbKq iaOvngBuyp4byAe6IVPmmFhx YXRlZCBvbiBkZWNhbGNpZmll KDA5lJPpkFPcGEbrc6KhvXRq qhVsCA1unLTco00faFuuQPYk unAgVHRhoxMKz1Oij8okpkRq fvOaaZQpZ1EufYXfb25sMPTv G3WabR4bZPQqe9SivOPsGJJd MUEeuPvoGNapWBQrg2U8JXL2 XNVqaZPnQ0Vuh6LvFSItJ96s SVgfPlV0rnKIH1ENV6MPFCDm dWlkZWxpbmVzLlxwYXJccGFy SEIvoDaru7M0BSNkQTQHFAGz E1Fsb53gH0kejSIuOwKWVZ08 SU0bY8QkEXE2vEjckPHxtuSh OCxQCxGjszPoVqv0FG2ewi3g tA1bWNmiQH43cXSiFUtkCHZv w12yFUELNIxrHMXttdZbfrXk T68uWqjinJYweeLdZOJuaFRk Z9RbDWNvE6CncA3vZOKpGpAg oSEfd47sM3qtumBpNYBsxNee t6C3JMexxX6qXFATGAKiGAYf EBTECQ33RA4kXXLnyAjeeRUh A4JziVMck64oLWZyX0QtiO7n WIQjYcYpkNNwa14mU3diaeNr RGWovZimw1L8TYbllJ8sQTMN RTIpIGRldGVjdGVkIHdpdGgg dCeeHRJqmqNcztMcGGv9qtNL qBX9MTXueJVbclIrTJSTPyCD TPCgL6Jlg46lB6q7AXlywwUt tpTozQMraL11rD1sTkNsROIb KUZtF6Bib90oHMIBRU08SJ6r YQ9vLHicJCjkZ1ybwMUfaxtd WZQsj02zJPIGZh3olHNkNMZz hlASb620pg6zOUUdhNBoiakj G5OzkFJhaI8yQVKxmcVtm6hs IYyvjZpcaVvkiObfSJM4aRGz X6FeUWSre1enLEDoKHFlQDdf pHb1UDHZTBMjXBAsv3CyaA8i AWaikdUmm1uzyzzeHMxvwxrt o4t1yYElkl52phPvi1FhqLe7 FOTio766ep0bAXVhd3H3SUPz bmQgdGhlIHBhdGllbnQncyB0 aXNzdWUsIGFyZSBldmFsdWF0 HKKqFb7gCIzJJbMiGVnrpoDz e6xbgx6jFDEugrqvUELzTNqn ZWcZXqTmiW9uyO9nsJosoO7u oMAyrWZ8pkzgSHQkPCffm7Nj VLWjjbFaa3YrWNflioFgeRDt nDZuOXJkL91pJMQzXWOaEAZv HXTrzqCgUAEnnpXqV7VookLp qtYdQGumcNkqaEwfDRx9nJRq gCjlCBAmMMUvcj79GSSmChuz dTiuEDPzUFTsL3WnFLSuL8pt jAcls5YvM8xafrcyZDoxR62c t8xvE8bpdHTdET8vZMMpTLDG s4vgNYmqUS5uDMNiJULeW4Du MCLfjDjvlS9xfEV1mz4lZ00q PqTzVZAoVKKkYIaqOMRiC6ns REK4lI1vXQljOlEOKCFjUREe VLj8FJZ2UQi1TYaaRWEbzFHq NSXpCVDMGJAfXLEtj4F5YPbl kjJfq3WeXyFkfdI7AVnlAJD6 LXIwq85dWWLcNHlgcBTcGNCg oBebv0Iyhh1eC7r5DR1qsTrq ESVte3SlPpiocEC2HH2dDNWs iXTkKO4aA8Q6xNIsCNCab1Zg iVWnl14kYKSaPOqdtDUbHTDm u0WkB6csFO5oGVZsLYL1yWBp SWSax1RtUOAzJDVcsxHtfsIk PNQrMBD3nIAgKWHqfNXqv04s XHBhcn0= [facility] Performing Lab n6asrDZdZDTpn7ewMJUa bGFu ZzEwMzNcZnRuYmpcdWMxIHtc cnRmMVxhbnNpXGRlZmxhbmcx GDUgUJQ3zhLwHFZzZIE2ZQZ0 TiHgEEBrJtTvLVNbUGXpg8iu l9GfvJThpJLsCNdqvMShyrGk lc67dLV5xP33KQ7yAEJgVpQ4 RODzvwP0Yhc9DGNsDRYdsVPx K079k9xzj2exwhTlbKB1xEyt SPUkiixoKlS1FPnxINUtkikf HGo0QOdpLGEefYR8PXYscQEb E9IxLPXmHI0njrw2RNQ2ZOnz EEMdNqK1EJIayAUeWXFzoXnr XSxlc337UGD4PaLnKCHnh4M1 puMoOvXtDFVitIL8vmT8KEGt MX0sbspwn4rrPPvyLCnaHUZw upO8trS1XTXkcACrW0YsaX6v POIxDS3brjorg3ipUVI8PClj YXJkXHBsYWluXGZzMjAgRGlh B21uv1DdDvSlwaZhjiVtCFRk fHeuqqVdYSHep6VdXMXdHSO2 IENsZXZlbGFuZCBDbGluaWMg RFDrztBJPA2cmRXeTL8skBs6 RVgbPFDpg4EiqH1akVnkAFWd MCBFdWNsaWQgQXZlbnVlLCBE ACXlAWxeATqjT9ipiuPrVJ3l KZ6LQSI9RXg0TOYaI3sIGIHw OnLLWZA7QiX5XFveYBRgQAUf iiRCHHQcexH9l9C2BETbtdFv cR9pAbEZQXs2RBScMLJvlvjx h5XwBG5LPDAkzk57f1bqvGSr AEOvuENyVvCiLSVgXRLfp4zx ZGVmbGFuZzEwMzNcZnRuYmpc eOOcZSNnPuFgv0mec922tSHe w4piSZEzQfR1rGQzWJDypZJv B319DWBoCSgak2ngw7MgHZCn dUOqv6T3ACAFzvycrFv6pJxl Y09sn6Y7OpphU4dtUGQmNIMx G0SkAE9tMBThVbh9BRL7RWY2 EWKeGAVbF2EuCB6pLAQrfFBk MNa5m4pxnGnzILPsXHO5n8fb RRhofnSqLT9mfu4nhBs6k7gq ecDhUUKpTQXbgGSKTZIbH6Sy aRlmCb6bmNg0jAgxGmnrAAG1 Gai0YE5qkh14zaz5jWxoOELv pmliAbQ9RFuhSADpwkffCPg9 UUdzZVHgjOP8RKDhdUCeR2Mv IIQbUZ4xtnk6FEN1HQvcZDJp VnT7GAZcbKXtIPUdqPtcERwt a472MZG9UkQyBH9kX6Mpx0Z6 uW9rwWGcAOZadAUhCnCuIRFw ax8oqMHvGEyaz0OfUNL4daG5 kUBfeMMgIEAuGG75Vjtgm8Bl SijpOMV3JAZjhhNfj7Hdd3eg EoParaYtX6eoN4SzCMTpPZVj STPbTlTlcgVpi5Uag0UwuABg eAi5m0wsJIGaZIRnaHcsh9nr UBS4QURaT6L9bCBdf5nmBVvn WNQkaAT2vkK0GOZnhZAdE9Si iC1vKHFxTX3ilmb4b9cfELS3 TSxrJEKzWxO9jkF0AZCfvWVc WALhmAsxOFipr101OTS3ApLe QDCdi3KkA3OfsEfqU38xpExf E27pKYBqgMxisG7hcQnqgL2t ZjBcZnMyNFxxbFxwbGFpblxm MVxmczIwXGxhbmcxMDMzXGhp P3avFbFtFCCiqAjnFKage5Lu UPUsOBJjEjNgYOwtS5Ldw36y W4QkfItgs3apfoYpPQ38dALw iCykR7TcQ06rVFbwcJ0eupiu TUQsIFBoRFxwbGFpblxmMVxm qjCaUDtduzcuDMYeDNetZ4eb SzEaZWKyoFltFLkcq3VySBBi XGZzMjJccGFyfX0= [facility] [place] % staining [facility] RI status Negative [facility] Progesterone Receptor (Staining Intensity) Not Applicable [facility] Progesterone Receptor External Control Present and Stained as Expected [facility] Progesterone Receptor Internal Control Present and Stained as Expected [facility] Total Fixation Time >6 and <[address] [facility] 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 [facility] Was Specimen Decalcified No [facility] Pathology biopsy report Adolfo (Tiss)Ordered By: Moris Jain on 12-07-2024 Addendum g5jxoGCxXEBpzDSyQOZw NVxh foKjTBYveNMzW5MnbyroYOew TQ0xAQ2xdTscyYYtcRInZNNm FlMpd0hsh287oOQin3liTMJF bvsozDr5vEovM19zy4B9Wosx Y94dxUAbZED0DBCiVYCcuASt IOMrZTJ7VQQqcUYiT1ltEERc KK7ukpjiEHlkEEpoTFOavUN1 LGGitJMfW1TqGKXwOVjaPURb ngl4WrXrKn6jgPYqzQsvOUgr NZGeIRJjMTwlWBSpXgUfQS3n iY1laE6cpNympB6mtPWmgDCg aSMpmBWfldQtn8ZqVQ7zlo7m XA6hdvLgFUM4u5EsRWRyfuKo yu9sBTDsjgEkoH8xwbWFKGno eDTfvlKoAEXmmhYlaM8rfNwh PGT6lO5oDRUxlUdsDZWizsd2 nQ1lPNCtAVzyg6IkxXU7RGBt jW9gvytcQTNmsFFpPMBnuyCd BMYnt34gYNAfun4= [facility] Work Phone: Case Report Surgical Pathology Report Case: [id number] Authorizing Provider: Lidia Hirsch DO Collected: 12/01/2024 01:56 PM Ordering Location: General Surgery Received: 12/02/2024 08:57 AM Pathologist: Moris Jain MD, PhD Specimen: Breast, Left, Core Biopsy [facility] Work Phone: Clinical History k9rejSJrMFCxp8soADHx bGFu YnPzIoMrQdQqJhk6AJSzpjF5 Xza6VBLtJTdizA7xBIWrXZpt Z6isujQmcZSvMQQlRBo6bR4j iErsnX8vFqLrZyBaNUSVIZR4 IGJyZWFzdCBtYXNzXHBhciB9 [facility] Work Phone: Diagnosis Comment m0advQKpWTEvnYZcEMCd NVxh hoVuTNSxkNFnV0PfoqyzGSfd BF5oIL4crUozgPMnmTGaAPHw LrOet5ska285aHSpn4ihDLSP xijrdMf2aAttY85yg0S4Kilz Q26zjXSdIQH9URBfJRUttJLy FGEjPKA0GAViyDQnV1hxPXXw YP3ftpyjHQnuLRrnFCFrmAC5 GGWsoBAoD6FkEXDmAHdpGNZz ofn2UwUlFd7clJQdlAvuPOjz YXJkXHBsYWluXGZzMjAgVGhl YGGkt2ErgERahT74zpUzwhXa wuRdb6e7CUQlRIMjbT1luAHf V50noP4wCUItn0Woc1GkzZIl jfIlPV0hi1WtWAMwOCKseS8i mDQbm0EtfdAnEbN1jT9ikiQv EKaiotM0eLKlQGJmtWmmEYSo v5vit5LcqBtzBpSscxJvdVwt shJxeKOjcIdon75dHZ3lEFPq QC2ds6WplIadAHBhcOTixaUy ct9kIPFjGeZmlPAkYFrjm6k1 vMDduj4akO7scbKekzNfdYLu uKzbcG3zZYFyKLSiF8HtmY7y PD5gPHVrMjIvaRKieHfwb2Nb ZIwdzEonVFSpju1caJ7bxqHp zVhygThqX8a2vONwfY3lzTg3 ysN6LR0dDQLyonwmTPOsFEgd CHYzkQwxu9hcMgFuvI36ys2w nDQ4g2EbJW0gM6EiPCS5NXdq elT5WXZsXPIttjSxnz9yCIDi ogKxfH1fbdPLUDEatmLaUJRy mGUykNTxOYjpVOFsEQY8hJ4d uaRqUGmytemyhMYdCW5fL2Fd SGBjyjHXYUBqZamzODTaf3d9 aXZlXHBhciAtIENBTTUuMjog WGNzt8e7uLMyOBwsNUMcNGVL ACCUCdmfWBBmd6n0pPTkZSUm ciAtIFNPWDEwOiAgTmVnYXRp ofPbgKXwVG4rYJD5ZLUNQEba nTo8KPxyGKIfQSFyYaO7MVBS kdMxTPMyyys0KZLwoG8ysZx1 yCWdvCWyPPGgvIbbm3NjhF9j rflaBQBeMLN4YCQnOWY4sR8i toQaCMylVBY5GHcbqJ6oVA4q dGVkKVxwYXJccGFyIFRoZSBm oK6wgH8xpwGyyoHfJ27at2mv dJKmfNH6hZHzACCvIXndiiUq fTYqQKZeqyXrjg4xOKY4jFJj RZPnd9IzcH6uAALvKXK7epGm EDQ8aCpswNUfMCMemCGgddV7 rBW3zyM4FmGahJ5lwC8zbPbm hjMavL6tqYQcUB0iyXFpxMQt HapfPYGzbPHpEPPmx1ItiPPx e8NhrUYcsfTpnQO9zUFcKYCH PMRLYkdsSD7lSPqJOdCmsTUa xFdjGeG5jVeaGWQrbKajsuFl biBhIGxpbmtlZCByZXBvcnQu XHBhclxwYXIgRHIuIFNoZXJp lpCXXIRtBC5hxBObZNDeh30w lxP1pAC2SSUelRdwpoDfIVDt JUDmFGCtA3JzTSUrw4g7yWZ3 zIDrHAipN27hw2foOaEadBAf fQ== [facility] Work Phone: Disclaimer l9dmrUFbDEXcg1htEAAb bGFu ZzEwMzNcZnRuYmpcdWMxIHtc lgUmKFhlnUqvKDYuUXSty9ls z3bvxCWgONHjl3dst7MkwVKh gPGbMCdumOXtyiNchi73zAV7 uM40FO1yUGRvVnH3CCMfqdO3 Rro2AUFgCCGvzWUpG275x0lm z8eibjCrtTX8LFSoZSMrR0Uc BZ1rZDUdqDWwF71jkGUrRZT1 VAEqGYPuaMDwQMYxGZK9CKIz jABeO1uwXBEuTN5alfhdQXuw OSshSKMheIG9DMBhkQAjT8Jf TDXdWLzgHINlwxz7QnRaSb0c xSYifNpbMCzyE4gqhQ2qJuI4 VLqfN1jkgR1oLJu1JCblWFUe xUP5bbD9FNQxsRNdG1KijZ6v EBZjRK1xtlh0b9feSYC7XUrb RJUvGxW5fuY7ZLQziKZgKXip kVExxcuqOGBvNIYcH0SwHYcp Zw6kKNRymwumJTW8FGswpPAf RLTsv6EhRLlDTAcjXRqtB5mn yN6kbldbrAStLBWiHJGyIBJD NCTqf0ItQU0oZQEvaBRbXCA8 KRFvr4PiR4Dnj2VhhG4eoK7b pBubeY2zfFIgvLIsxMbejS9f xQ7cZbh1l4Xsi7GzzsGrRIBu HAKedIUkzS2uLB1iHfHsmo1m nOF0PJy4HpWqDMf7GRPnb84j aBJraWKooXQ1EZDnRHMaCFCa dGVybWluZWQgYnkgdGhlIHBl fbSyjm8qaoagwCSil3EbfZ5c hHJ6pXAjyS8rX6aezeRyWE5f PITmpK2eHunaFFDzYbDlhKTG XcEAy01wkLIdVRFbpFsfvL0i zFUijuOhDCTms2HizX9vtYIJ VLUgR1rsFVBXUTWchlJsLB24 DEbLOVryWMOrwAF6phICw4Ob hUTwlUhwNYcxf37sK4KiVJRy tSGTv8VxuKOjlIiaDnzgkcgy ATTDAHD7l14gGL5pnMb9NEbw TI1nwnI5QRmay5HclVQkGLJU diTbBI4sYzl4IQYmVXOqyXEk rTCDFE95QZDbBZ0agvEcmcMM UAImrXiwSx6trTguAL1fxMw8 LGvoYZ2eIJOgyK4dINjzz9Yf xAJcHAUuuvQfLZ1wed0sdgPd w44fwWF7IG29MEzxoOvcP1mE QWBdMKO6lMDyoSYrvPWyTV3z LXLscbMfw7JnSE5fKDZlOCUk EGSlb3LpAG0kcAHxn7XslRF4 CTExBCDqUKWzVTEuCJOuo5Ly CXVfaf98NLAeLlpymQzgVXYH BU5vNjUyHWsJUFjnVDYwS2Mz JFMbGGZ3tiPpeeJBRGvJBKCy TGA8QFzmRmtgTDV0ozWoNPIo t9BgGGugC8ojR15upXckcYi0 aBF2DHX4iN8kXnPHfITwZAR5 EZT0ptUyrtDkiMIaPJPtl6Qe Q6jjwbmmUGkujOEncP2fIGGi GRNmLDOzCZQnt8GlMVQgc9Jp WjLxsaMvKTDkGZWkDSEvpK61 OFT7hIczwLbhnoNoDH9aXDOd ahLqYLMuDBWacX0hPL9nsGNv ujUlNT1jFV1rI6G1uKJjGYXh cqLrs8pfVVC7GVffVOPteVOy uLJfRZXjeQksFMYakt76 [facility] Work Phone: FINAL DIAGNOSIS o2tigKQuUJRpjKBrTEBf NVxh ovHrDLCzzHZtK8KvjrmkPEji HN2aNS8kkZiduVFewZFiEFDy QeHvx1pvr409hXUld0otAJFB bkcdtVf0wZodR39uz1F0Oayd M57bqDThNII3YUPaOHBdaAHn HQAhLSF8MBMlqDYlK6utDPVr TE6glrrqUTrqSGqzAWHqaHP7 EGWskXHwQ0YvPWFqOLlhUJYj avw0FkNwUz1ogDTawNqcTQwb YXJkXHBsYWluXGZzMjAgTGVm tUEizcBgm2AuIFVpbnRhGbfx fOS0KdaxMRHyIN70SSGbrlHs M8TrE4fcs35cDPdsqHncGHWk J7LwglDhCcOnoMAoYGIgSSZ4 MPsaPMV0ZD9vjKRnvqegWY7s I2PlEKHuCkalj1UoRDWtyW7m bnQuXHBhcn0= [facility] Work Phone: Gross Description e7ayvYLtSLBtcWIFQHRg MDJc GU8fpLyykFv0aOurORZowmD9 uDFnSSxul1woIOI3a0rkrxPH PqrtMOIdBB1wCPqsMFDpSK6k ZmUwXGRlZmYxXHBhcGVydzEy GsRmGQJioMPaeCQ8QTZdSF9b vfrxWMzmCMsbGDYqxxO1RYRe rWGzJ2SkRKQaRI5bfujyTHT7 MOMRUukcSm3zrMUmvLegDkZa VuZlTIWxKYXuLXLby8cqrrUR lchobWn1xX8WWCJbM5BnBT5U g8vqGGPssUXsNPD4FKwij6fx HKirHZK8CGAzAIQtHQTwNY6M ZlBuQZltLCJfWeT9ZyC7KCq9 HQRQSCTqWNY3MEi1XCJcBQi3 OTkgXFxuaCBcXHQgMSBcXGZs VFwbhyB4j0asIMJmvVKyGOL6 CJpsq7zcNSdePLP5IHCzEeNj ESYoSI0VLzTyGFwjAOXhTvY3 PpS4LMw7BTMUVePaWzAeVbAp TJH3EUAmWIw3XUg7OBlQYuFg SQX0YVMyGUwjHTA6BRNuIuHx XHQgMiBcXHNzIDMgXFxmbCBc XY6ujMlaRWMuPT7IJZEsQRbv FFJtBjBjRV1wNrWhZEK6MGDN XER5NDUNu4PmVFFde2EmsOcv dHJjaFxmczIyXHBhciANClxw XWWhAN3QBGMoPRoyBSw6joTa ZCGzJzWqKFToR91pj5VUv3Wv KX3EETc7bjAuslBHTxzqmgWi KANvL6AjszTmWZuzIAZoxf2d xBygUG1lQVPeeQNxVDqmjKgw IGxhYmVsZWQgYXMgImxlZnQg KuZuWIJ1AuApdtPqcBCyjUai mDTzl5OyiWLjtFAan0JiI7ga sH7qsdynOJvxfEnxf6UuHUEa L5YdT7P1xC5nQZKnAKIqGwM5 BYWbRsW3QZSyTxRboBvxfBYk zJ07HXimkJFwJBBoTGAwZfTz OFY0BiYmhehuK04mo8wbzHVi S1ynQQNkPBOacQKubY8drwZ3 PEMgiuDqn1VtHKJhuj1lMMCv FEHmPIDiKL63KXS7NTIkbQpw XQXsp8Zox9PzD6hppYWuHP9x BJY2FpBnHgHoTrWuEJ8nQLMs DBYkDP6wBJNxgCttfSsiKTRs ZWNpbWVuIHdhcyBwbGFjZWQg mV3rZl3suDVpuJ5pUFJfYCA0 jO2dWF4pvFMqbLAsbLKfLMRs MFZrrHDmpDmbi8UicBg0fQSl FTfnRIYctb5axWynXXuoZY9z HRLlOZMoPWR1CA4dHPExusTS ClxwYXIgDQpDTCBBcHJpbCAy PPirLvHeTDC2DrS4XOWVRAVe jgOQOybaMQGuAIsIjm3laxMn lTSbaX6gsUgsvsBlJWQbr6Ls MHIdGMBlJ6omcnVaVQ5oIJAk eI9xZioqPJOeCTLByAGhtFWe VLZdWffuT9zvbeIcKC7sFIEB TGZ0TUF7FGzeTOVnMDaaq8Tp MFxlcGljWHNhMzAgDQpcZXBp N18pp5RRu6Huh7spzKnxd8Eu uKDxUL74TNYhnUUzKWG5QM5w fVxwYXIgDQpccGFyZCANClxw bGFpbiANCn0= [facility] Work Phone: Performing Lab a2xwhERsDZAbeBIoSLVb Mlxh edRnSSKhqBZgB2VltpzvGXqx ZZ0xKU1czVuflCRzqOHnWWLd RsTvs0jdr391bKEgi3uqIKJO pttvnWp1gOqcS37fe5K5Yotg F20phRYoYRL3QGWkMEBbfVNg AOKzMFC2VXNnqEYjU4sxJAVy JW1asrnwKPggNRncECNdoRI2 AGTnrRKkO6RrLYFjUDwmMYFv nps0VaMwDi7eoAGzbEmhDDvc J1evsM7mPqA1XLubC8pobA4u OCz5RYvoGWYwiPO8qyH9XIHq cNCrD2ErkV9aBXBiWO3dund6 r3jvSZE1TUvsOBVgAcB6kgX2 NDBccGFyZFxwbGFpblxmczIw XKXbRCmrp7P7sJAxcO24XYZp qdM6ERCvp00nzVTbDi0bwJWr WZB8GxGWwYB3WDmlhcDjI1nh rgekJU6bgD8jZ4OflVYwDXbx l3SyjBZkAJdfVh2kRYGuasbk NPe9BEWpNOAntYneRVY0BE14 ZSwgRGVzayBMMjEsIENsZXZl cCWgXHCBQDO6JGG1HJZyZRHL DZAjNBS2RGC9OQAvSYIuiDVl JOnvQMZsSLAfn1ZhwE3dvBTO bAMbH6SqtydvQ2MvyLFcABwa amUlW4xsPSVWMRvbUQX1 [facility] Work Phone: [facility] Work Phone: BREAST MARKERSon 12-01-2024 AP BIOMARKER DISCLAIMER Normal [facility] Comment on above: Order Comment: Speci men Type: TISSUE SPECIMENOrdering Facility: [facility] Address: [address] [place] [address] Result Comment: Elen gabriel Developed Test (LDT) Disclaimer:Performance characteristics of immunohistochemical, immunofluorescent and chromogenic in-situ hybridization tests have been determined by the performing laboratory within [facility]???s Jamie Williams [facility] Pathology and Laboratory Medicine Department ([facility], [facility], [facility], [facility], [facility], [facility], or [facility]) in a manner consistent with CLIA requirements. One or more of these tests have not been cleared or approved by the FDA. RT-PLM is regulated under CLIA as qualified to perform high-complexity testing. These tests are used for clinical purposes. They should not be regarded as investigational or for research. Positive and negative controls stain appropriately. Performed By: #### L [id number] ####[facility] LABCLIA [id number] [place] [address] [place] AP BLOCK ID A1 Normal [facility] Comment on above: Order Comment: Speci men Type: TISSUE SPECIMENOrdering Facility: [facility] Address: [address] [place] [address] Performed By: #### L [id number] ####[facility] LABCLIA [id number] [place] [address] [place] ASCO/CAP GUIDELINES FOR FIXATION MET Yes Normal [facility] Comment on above: Order Comment: Speci men Type: TISSUE SPECIMENOrdering Facility: [facility] Address: [address] [place] [address] Performed By: #### L [id number] ####[facility] LABCLIA [id number] [place] [id number] [facility] BIOMARKER INTERPRETATION COMMENT AND REFERENCE RANGE Normal [facility] Comment on above: Order Comment: Speci men Type: TISSUE SPECIMENOrdering Facility: [facility] Address: [address] [place] [address] Result Comment: Refe rence Range for Hormone Receptors:Staining for RI of greater than or equal to 1% of the tumor cells is considered positive.Staining for ER of 1-10% of the tumor cells is considered low positive.Staining for ER of greater than 10% of the tumor cells is considered positive.Staining for ER or RI of less than 1% is considered negative.Reference [...] to ER-negative cancers. Performed By: #### L [id number] ####[facility] [id number] [address] [address] [facility] BIOMARKER METHOD Normal [facility] Comment on above: Order Comment: Speci men Type: TISSUE SPECIMENOrdering Facility: [facility] Address: [address] [place] [address] Result Comment: Estr ogen Receptor:Food and Drug Administration (FDA) cleared: [employer], [place], [place] Antibody: [id number] Receptor:FDA cleared: [employer], [place], [place]Primary Antibody: [id number] by IHC:FDA cleared: [employer], [place], [place]Primary Antibody:4B5The hormone receptor tests were performed and reported in accordance with the guidelines approved by the [place] Society of Clinical Oncologists and the College of [place] Pathologists. Kristen MOREJON, et al. Estrogen and Progesterone Receptor Testing in Breast Cancer: [place] Society of Clinical Oncologists and the College of [place] Pathologists Guideline Update. Arch Pathol Lab Med. 2019;144(5):545-563. PMID: 03576641.The hormone receptor assays have been internally validated on decalcified tissues (for [facility] only).Estrogen and progesterone receptor results are valid if tissue was processed according to ASCO/CAP guidelines.Antibody and Detection System: Carlisle-Rockledge's Pathway anti-HER2 rabbit monoclonal antibody (clone 4B5), Carlisle-Rockledge Confirm anti-estrogen receptor rabbit monoclonal antibody (clone SP1) and Carlisle-Rockledge anti-progesterone receptor rabbit monoclonal antibody (clone IE2) detected with the Carlisle-Rockledge UltraView Univeral DAB Detection Kit (indirect biotin-free detection), [employer], [place], [place].Control Slides: Cell line controls with high, equivocal, low, and negative HER2 protein expression, along with known positive control tissue and the patient's tissue, are evaluated for HER2 expression.The HER2 immunohistochemistry assay was developed, validated, scored, and reported in accordance with the guidelines approved by the [place] Society of Clinical Oncologists and the College of [place] Pathologists. Fransisco WESTBROOK et al. Arch Pathol Lab Med. 2018;1379(9)The HER2 assay has not been validated on decalcified tissues. Given the possibility of false negative results on decalcified specimens, results should be interpreted with caution. Performed By: #### L [id number] ####[facility] LABCLIA [id number] [place] [address] [place] BREAST TUMOR GRADE Grade 2 Normal [facility] Comment on above: Order Comment: Speci men Type: TISSUE SPECIMENOrdering Facility: [facility] Address: [address] [place] [address] Performed By: #### L [id number] ####[facility] LABCLIA [id number] [address] [place] [address] [place] [facility] CASE NUMBER INVASIVE [id number] Normal [facility] Comment on above: Order Comment: Speci men Type: TISSUE SPECIMENOrdering Facility: [facility] Address: [address] [place], [place] [id number] Performed By: #### L [id number] ####[facility] LABCLIA [id number] [address] [place] [address] [place] COLD ISCHEMIA TIME >1 Hour Normal [facility] Comment on above: Order Comment: Speci men Type: TISSUE SPECIMENOrdering Facility: [facility] Address: [address] [place], [place] [address] Performed By: #### L [id number] ####[facility] LABCLIA [id number] [address] [place] [address] [place] ESTROGEN RECEPTOR (% TUMOR STAINING) <1 Normal [facility] Comment on above: Order Comment: Speci men Type: TISSUE SPECIMENOrdering Facility: [facility] Address: [address] [place], [place] [address] Performed By: #### L [id number] ####[facility] LABCLIA [id number] [address] [place] [address] [place] ESTROGEN RECEPTOR (STAINING INTENSITY) Not Applicable Normal [facility] Comment on above: Order Comment: Speci men Type: TISSUE SPECIMENOrdering Facility: [facility] Address: [address] [place] [address] Performed By: #### L [id number] ####[facility] LABCLIA [id number] [address] [place] [address] [place] ESTROGEN RECEPTOR EXTERNAL CONTROL Present and Stained as Expected Normal [facility] Comment on above: Order Comment: Speci men Type: TISSUE SPECIMENOrdering Facility: [facility] Address: [address] [place] [address] Performed By: #### L [id number] ####[facility] LABCLIA [id number] [address], [facility] [place] ESTROGEN RECEPTOR INTERNAL CONTROL Present and Stained as Expected Normal [facility] Comment on above: Order Comment: Speci men Type: TISSUE SPECIMENOrdering Facility: [facility] Address: [address] [place] [address] Performed By: #### L [id number] ####[facility] LABCLIA [id number] [address] [place] ESTROGEN RECEPTOR STATUS (INVASIVE) Negative Normal [facility] Comment on above: Order Comment: Speci men Type: TISSUE SPECIMENOrdering Facility: [facility] Address: [address] [place] [address] Performed By: #### L [id number] ####[facility] LABCLIA [id number] [address] [place] [address] [place] FINAL PERFORMING LAB Normal [facility] Comment on above: Order Comment: Speci men Type: TISSUE SPECIMENOrdering Facility: [facility] Address: [address] [place] [address] Result Comment: Diag nostic interpretation performed at: [facility], [address] [place] [address] CLIA# [id number] Director: Harrison Le MDElectronically signed out by: Moris Jain MD, PhD Performed By: #### L [id number] ####[facility] LABCLIA [id number] [address] [address] [place] FIXATIVE Formalin, 10% Neutra l Buffered Normal [facility] Comment on above: Order Comment: Speci men Type: TISSUE SPECIMENOrdering Facility: [facility] Address: [address] [place] [address] Performed By: #### L [id number] ####[facility] LABCLIA [id number] [address] [place] [address] [place] HER2 SCORE 2+ Normal [facility] Comment on above: Order Comment: Speci men Type: TISSUE SPECIMENOrdering Facility: [facility] Address: [address] [place], [place] [id number] Performed By: #### L [id number] ####[facility] LABCLIA [id number] [address] [place] [address] [place] HER2 STATUS (INVASIVE) Equivocal for HER 2 Overexpression Normal [facility] Comment on above: Order Comment: Speci men Type: TISSUE SPECIMENOrdering Facility: [facility] Address: [address] [place] [address] Performed By: #### L [id number] ####[facility] LABCLIA [id number] [address], [facility] [place] PROGESTERONE RECEPTOR (% TUMOR STAINING) <1 Normal [facility] Comment on above: Order Comment: Speci men Type: TISSUE SPECIMENOrdering Facility: [facility] Address: [address] [place], [place] [id number] Performed By: #### L [id number] ####[facility] LABCLIA [id number] [address] [place] [address] [place] PROGESTERONE RECEPTOR (STAINING INTENSITY) Not Applicable Normal [facility] Comment on above: Order Comment: Speci men Type: TISSUE SPECIMENOrdering Facility: [facility] Address: [address] [place], [place] [address] Performed By: #### L [id number] ####[facility] LABCLIA [id number] [place] [id number] [place] PROGESTERONE RECEPTOR EXTERNAL CONTROL Present and Stained as Expected Normal [facility] Comment on above: Order Comment: Speci men Type: TISSUE SPECIMENOrdering Facility: [facility] Address: [address] [place], [place] [address] Performed By: #### L [id number] ####[facility] LABCLIA [id number] [address] [place] [address] [place] PROGESTERONE RECEPTOR INTERNAL CONTROL Present and Stained as Expected Normal [facility] Comment on above: Order Comment: Speci men Type: TISSUE SPECIMENOrdering Facility: [facility] Address: [address] [place] [address] Performed By: #### L [id number] ####[facility] LABCLIA [id number] [address] [place] [address] [place] PROGESTERONE RECEPTOR STATUS (INVASIVE) Negative Normal [facility] Comment on above: Order Comment: Speci men Type: TISSUE SPECIMENOrdering Facility: [facility] Address: [address] [place], [place] [address] Performed By: #### L [id number] ####[facility] LABCLIA [id number] [address] [place] [address] [place] TOTAL FIXATION TIME >6 and <72 Hours Normal [facility] Comment on above: Order Comment: Speci men Type: TISSUE SPECIMENOrdering Facility: [facility] Address: [address] [place], [place] [address] Performed By: #### L [id number] ####[facility] LABCLIA [id number] [address] [place] [address] [place] TUMOR TYPE (INVASIVE) Primary Invasive B reast Carcinoma Normal [facility] Comment on above: Order Comment: Speci men Type: TISSUE SPECIMENOrdering Facility: [facility] Address: [address] [place] [address] Performed By: #### L [id number] ####[facility] LABCLIA [id number] [address] [place] [address] [place] WAS SPECIMEN DECALCIFIED No Normal [facility] Comment on above: Order Comment: Speci men Type: TISSUE SPECIMENOrdering Facility: [facility] Address: [address] [place], [place] [address] Performed By: #### L [id number] ####[facility] LABCLIA [id number] [facility] [place] [address] [place] CNOVon 12-01-2024 CNOV Normal [facility] FISH FOR HER-2on 12-01-2024 FISH FOR HER-2 FISH for HER2 Normal [facility] Comment on above: Order Comment: Speci men Type: TISSUE SPECIMENOrdering Facility: [facility] Address: [address] [place] [address] [place] [address] Result Comment: Elen gabriel Accession Number: [id number]: [id number]/Part ID: [id number] Type: FFPETSample Description: LEFT BREAST, CORE BIOPSY, [...] probe set for the HER2 (ERBB2) locus [id number] and the centromeric region of chromosome 17 (PathVysion; Nuñez,[place]ñez [place], [place]). The Molecular Pathology and CytogenomicsLaboratory of the [facility] has validated modifications of thePathVysion kit used for the testing, including the use of TargetRetrieval Solution and Proteinase K (Dako (Agilent); [place]) forcell conditioning, and modified probe/target denaturation andhybridization conditions for the assay. Internal and external(amplified and non-amplified) controls are evaluated. The in situhybridization analysis was performed and correlated with preselectedareas of invasive carcinoma deemed adequate for analysis by apathologist.The HER2 (ERBB2) assay was developed, validated, and reported inaccordance with guidelines published by the [place] Society ofClinical Oncology (ASCO) and the College of [place] Pathologists(CAP) (Fransisco WESTBROOK, et al. J Clin Oncol. 2018. PMID: [id number]); and,Recommendations for Human Epidermal Growth Factor Receptor 2 Testingin Breast Cancer: [place] Society of Clinical Oncology/College ofAmerican Pathologists Clinical Practice Guideline Focused Update(2018).The assay has been validated on tissues decalcified in EDTA only. Aswith all decalcified specimens, the results should be interpreted withcaution given the likelihood of false negativity on these specimens.Negative results should, therefore, be interpreted with caution forspecimens not meeting the ASCO/CAP guidelines.DISCLAIMER:This test was developed and its performance characteristics determinedby [facility]'s Pathology and Laboratory Medicine Department. Ithas not been cleared or approved by the FDA. [facility]'s[facility] is regulated under CLIAas qualified to perform high-complexity testing. This test is used forclinical purposes. It should not be regarded as investigational or forresearch.Test performed at [facility], [facility], [place] [address]. CLIA Number: [id number] performed by Bin Huerta MD Performed By: #### H ER2F ####[facility] LIMSCLIA [id number] [place] [address] [place] JAMIE DIAGNOSTIC LTon 12-02-19 25 JAMIE DIAGNOSTIC LT Normal [facility] MG Breast - left Diagnostic for implanton [...] Sav Kenyon M.D. Electronically signed on: 12/01/2024 Electric Motorman: ZEHRA Transcribe Date/Time: Dec 01 2024 2:44P Dictated by: SAV KENYON MD This examination was interpreted and the report reviewed and electronically signed by: SAV KENYON MD on Dec 01 2024 4:03PM [facility] DIVISION OF RADIOLOGY * * *Final Report* * * DATE OF EXAM: Dec 01 2024 3:34PM [facility] DIAGNOSTIC LT / PROCEDURE REASON: Mass of upper inner quadrant of left breast * * * * Physician Interpretation * * * * RESULT: [place] [address] #[id number] - [facility] DIAGNOSTIC LT HISTORY: 69 year-old patient seen [...] obscure small masses. DIVISION OF RADIOLOGY Provider, [facility] - 12/01/2024 * * *Final Report* * * DATE OF EXAM: Dec 01 2024 3:34PM [facility] 0621 - [facility] DIAGNOSTIC LT / PROCEDURE REASON: Mass of upper inner quadrant of left breast * * * * Physician Interpretation * * * * RESULT: [facility] [address] [place] [id number] #[id number] - JAMIE DIAGNOSTIC LT HISTORY: 69 year-old patient seen [...] Sav Kenyon M.D. Electronically signed on: 12/01/2024 Electric Motorman: ZEHRA Transcribe Date/Time: Dec 01 2024 2:44P Dictated by: SAV KENYON MD This examination was interpreted and the report reviewed and electronically signed by: SAV KENYON MD on Dec 01 2024 4:03PM EST [facility] Radiology Study observation (narrative) [facility] MG Breast - left Diagnostic for implantOrdered By: [facility] Provider on 12-01-[address] [facility] Pathology biopsy report Adolfo (Tiss)on 12-01-2024 ADDENDUM 1: Normal [facility] Comment on above: Order Comment: Speci men Type: TISSUE SPECIMENOrdering Facility: [facility] Address: [address] [place] [address] Result Comment: An i mmunohistochemical stain for androgen receptor (performed on block A1) is negative in the tumor cells, arguing against true apocrine differentiation.Addendum electronically signed by Moris Jain MD, PhD on 12/07/2024 at 1543 EDT Performed By: #### 6 6121-5 ####[facility] LABCLIA [id number] [place] [address] [place] AP DISCLAIMER Normal [facility] Comment on above: Order Comment: Speci men Type: TISSUE SPECIMENOrdering Facility: [facility] Address: [address] [place] [address] Result Comment: Elen gabriel Developed Test (LDT) Disclaimer:Performance characteristics of immunohistochemical, immunofluorescent, and chromogenic in-situ hybridization tests have been determined by the performing laboratory within [facility]'s [facility] Pathology and Laboratory Medicine Department ([facility], [facility], [facility], [facility], [facility], [facility], or [facility]) in a manner consistent with CLIA requirements. One or more of these tests may not have been cleared or approved by the FDA. RT-PLM is regulated under CLIA as qualified to perform high-complexity testing. These tests are used for clinical purposes. These should not be regarded as investigational or for research. Positive and negative controls stain appropriately. Performed By: #### 6 6121-5 ####[facility] LABCLIA [id number] [place] [address] [place] CASE REPORT Normal [facility] Comment on above: Order Comment: Speci men Type: TISSUE SPECIMENOrdering Facility: [facility] Address: [address] [place] [address] Result Comment: Surg ica Pathology Report Case: [id number] Provider: Lidia Hirsch DO Collected: 12/01/2024 01:56 PMOrdering Location: General Surgery Received: 12/02/2024 08:57 AMPathologist: Moris Jain MD, PhDSpecimen: Breast, Left, Core Biopsy Performed By: #### 6 6121-5 ####[facility] LABCLIA [id number] [address] STATES OF [facility] CLINICAL HISTORY Left breast mass Normal [facility] Comment on above: Order Comment: Speci men Type: TISSUE SPECIMENOrdering Facility: [facility] Address: [address] [place] [address] Performed By: #### 6 6121-5 ####[facility] LABIA [id number] [address] DIAGNOSIS COMMENT Normal [facility] Comment on above: Order Comment: Speci men Type: TISSUE SPECIMENOrdering Facility: [facility] Address: [address] [place] [address] Result Comment: The biopsy shows an invasive [...] in this limited material.Results of quantitative ER, RI, and HER2 testing will follow in a linked report.Dr. Amanda Valencia has also reviewed this case and agrees with the diagnosis. Performed By: #### 6 6121-5 ####[facility] LABIA [id number] [address] FINAL DIAGNOSIS Normal [facility] Comment on above: Order Comment: Speci men Type: TISSUE SPECIMENOrdering Facility: [facility] Address: [address] [place] [address] Result Comment: Left breast, core biopsy:Invasive carcinoma with apocrine features, at least Stanley grade 2; see comment. at 1554 EDT Performed By: #### 6 6121-5 ####[facility] LABCLIA [id number] [place] [address] [place] FINAL PERFORMING LAB Normal [facility] Comment on above: Order Comment: Speci men Type: TISSUE SPECIMENOrdering Facility: [facility] Address: [address] [place] [address] Result Comment: Diag nostic interpretation performed at: [facility], [address] [place] [address] CLIA# [id number] Director: Harrison Le MD Performed By: #### 6 6121-5 ####[facility] LABIA [id number] [place] [address] [place] GROSS DESCRIPTION Normal [facility] Comment on above: Order Comment: Speci men Type: TISSUE SPECIMENOrdering Facility: [facility] Address: [address] [place] [address] Result Comment: Dorina sinclairt, Left, Core BiopsyReceived in formalin on Telfa [...] 02, 2024 5:37 PMGross examination performed at [facility], [address] [place] [address] Performed By: #### 6 6121-5 ####[facility] LABCLIA [id number] [place] [id number] [place] US BREAST BIOPSY LEFT (POC) SURG USE ONLYon 12-01-[address] 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 [address] [place] [address] Fax: NO FAX EXAMINATION: DIAGNOSTIC BILATERAL MAMMOGRAM [...] 11/26/2024 10:55:33 AM Ordering Provider: BABITA MORATAYA Director Of Accreditation: MER KO RT (R)(M) letter sent: Abnormal-Needs additional work up BI-RADS 0 Mammogram BI-RADS: 0 Indeterminate Normal [facility] US BREAST LEFT LIMITEDon US BREAST LEFT LIMITED ORIGINAL FROM: [facility] [address] [place], [place] [address] PROCEDURE FOR: LIZ ROBLES [address] [place] [address] Home: PID#: [id number] Exam#: [id number] : 1955 Age: 69 TO: 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 letter sent: Biopsy Recommended BI-RADS 4 and 5 Ultrasound BI-RADS: 4 Suspicious for malignancy Normal [facility] .GFRon 11-10-2024 Estimated Glomerular Filtration Rate 76 ml/min/1.73sqm Normal [facility] Comment on above: Result Comment: Stages [...] #### G FR, CMP, LIPID ####[facility] [address] [place], [place] [address] CMPon 11-10-2024 Albumin Level 3.9 G/dL Normal 3.4-4.8 [facility] Comment on above: Performed By: #### G FR, CMP, LIPID ####[address] [address] [place], [place] [address] Albumin/Globulin [Mass ratio] 1.2 {ratio} Normal 1.1-2.5 [facility] Comment on above: Performed By: #### Rosario FR, CMP, LIPID ####[address] [place], [place] [address] ALP [Catalytic activity/Vol] 71 U/L Normal 40-135 [facility] Comment on above: Performed By: #### G FR, CMP, LIPID ####[facility]na [address] [place], [place] [address] ALT [Catalytic activity/Vol] 39 U/L Normal 14-59 [facility] Comment on above: Performed By: #### G FR, CMP, LIPID ####[address] [place], [place] [address] AST [Catalytic activity/Vol] 22 U/L Normal 10-40 [facility] Comment on above: Performed By: #### G FR, CMP, LIPID ####[facility]na [address] [place], [place] [address] Bili Total 0.9 mg/dL Normal 0.2-1.0 [facility] Comment on above: Result Comment: Use of this assay is not recommended for patients undergoing treatment with eltrombopag due to the potential for falsely elevated results. Performed By: #### G FR, CMP, LIPID ####[facility] [place], [place] [address] BUN/Creatinine Ratio 16 ratio Normal 7-27 [facility] Comment on above: Performed By: #### G FR, CMP, LIPID ####[facility] [place], [place] [address] Calcium [Mass/Vol] 9.8 mg/dL Normal 8.4-10.2 [facility] Comment on above: Performed By: #### G FR, CMP, LIPID ####[place] [address] [place], [place] [address] Chloride [Moles/Vol] 106 mmol/L Normal 98-107 [facility] Comment on above: Performed By: #### G FR, CMP, LIPID ####[place] [address] [place], [place] [address] CO2 [Moles/Vol] 30 mmol/L Normal 23-31 [facility] Comment on above: Performed By: #### G , CMP, LIPID ####[place] [address] [place], [place] [address] Creatinine [Mass/Vol] 0.83 mg/dL Normal 0.55-1.02 [facility] Comment on above: Result Comment: Test ing performed on Siemens Dimension EXL analyzer using a modified kinetic Christiana technique. Performed By: #### G FR, CMP, LIPID ####[place] [address] [place], [place] [address] Electrolyte Balance 6.0 mEq/L Normal 4.0-15.0 [facility] Comment on above: Performed By: #### G FR, CMP, LIPID ####[facility] [place], [place] [address] Globulin 3.3 G/dL Normal 1.5-3.8 [facility] Comment on above: Performed By: #### G FR, CMP, LIPID ####[facility] [place], [place] [address] Glucose [Mass/Vol] 106 mg/dL Normal 83-110 [facility] Comment on above: Performed By: #### G FR, CMP, LIPID ####[place] [address] [place], [place] [address] Potassium [Moles/Vol] 4.7 mmol/L Normal 3.5-5.1 [facility] Comment on above: Performed By: #### G FR, CMP, LIPID ####[address] [place], [place] [address] Sodium [Moles/Vol] 142 mmol/L Normal 136-145 [facility] Comment on above: Performed By: #### G FR, CMP, LIPID ####[address] [place], [place] [address] Total Protein 7.2 G/dL Normal 6.4-8.2 [facility] Comment on above: Performed By: #### G FR, CMP, LIPID ####[facility] [address] [place], [place] [address] Urea nitrogen [Mass/Vol] 13 mg/dL Normal 7-18 [facility] Comment on above: Performed By: #### G FR, CMP, LIPID ####[place] [address] [place], [place] [address] LIPIDon 11-10-2024 Cholesterol [Mass/Vol] 300 mg/dL High 0-[address] [facility] Comment on above: Result Comment: Chol esterol Reference Interval: Less than 200 Desirable 200-239 Borderline high risk 240 and above High risk Performed By: #### G FR, CMP, LIPID ####[address] [address] [place], [place] [address] Cholesterol in HDL [Mass/Vol] 65 mg/dL High 40-60 [facility] Comment on above: Performed By: #### G FR, CMP, LIPID ####[address] [place], [place] [address] Cholesterol in LDL [Mass/Vol] 205 mg/dL High 0-130 [facility] Comment on above: Performed By: #### G FR, CMP, LIPID ####[facility] [address] [place], [place] [address] Triglyceride [Mass/Vol] 149 mg/dL Normal 0-150 [facility] Comment on above: Result Comment: Trig lyceride Reference Interval: Less than 150 Normal 150-199 Borderline high risk 200-499 High risk 500 or higher Very high risk Performed By: #### G FR, CMP, LIPID ####[place] [address] [place], [place] [address] Coronary Angiography CTon Coronary Angiography CT [facility] [address] [place] [address] 06/28/24 0811 MR#: [id number] Acct: [id number] Name: LIZ ROBLES Rep #: [id number] : 1955 69 From: Swapnil Vargas MD [...] MD Cosigner Signature (if applicable): Date CC: CASH POSTING CLERK-C Babita Morataya; Dr. Swapnil Vargas MD; Dr. Sukhi Pizano MD Signed Normal [facility] CREATININE FINGERSTICKon CREATININE WB < 1.0 Normal 0.55-1.02 [facility] Comment on above: Performed By: #### L 9100.0200 #### [facility] [address] [place], [place], [address] EGFR WB > 60.0000 Normal >60 [facility] Comment on above: Performed By: #### L 9100.0200 #### [facility] [address] [place], [place], [address] Limited Chest CT Cardiac Onl yon 06-25-[address] Cardiac Only [facility] [address] [place] [address] Cardiac Only MR#: [id number] Acct: [id number] Name: LIZ ROBLES Rep #: [id number] : 1955 F 69 From: Partha stern MD PCP: YEISON Vargas Status: REG CLI Study: Limited Chest CT Cardiac Only Date of Exam: Exam# [id number] Ordering Dr: Sukhi Pizano MD [id number] STUDY: CT CHEST WITH CONTRAST REASON FOR [...] CC: YEISON Morataya; Dr. Sukhi Pizano MD Electric Motorman: Signed Normal [facility] .Auto Diffon 06-18-2024 Basophil, Absolute 0.0 10 3/mcL Normal 0.0-0.2 [facility] Comment on above: Performed By: #### G FR, CMP, TSH, ANEU, MG, VIDH, ADIFF, CBC #### [address] [address] #### B12 #### [address] [address] Basophils/100 WBC (Bld) 0.8 % Normal 0.0-2.5 [facility] Comment on above: Performed By: #### G FR, CMP, TSH, ANEU, MG, VIDH, ADIFF, CBC #### [address] [address] #### B12 #### [address] [address] Eosinophil, Absolute 0.1 10 3/mcL Normal 0.0-0.[address] [facility] Comment on above: Performed By: #### G FR, CMP, TSH, ANEU, MG, VIDH, ADIFF, CBC #### [place] [address] #### B12 #### [address] [address] Eosinophils/100 WBC (Bld) 2.1 % Normal 0.0-7.0 [facility] Comment on above: Performed By: #### G FR, CMP, TSH, ANEU, MG, VIDH, ADIFF, CBC #### [place] [address] #### B12 #### [address] [address] Lymphocyte, Absolute 2.0 10 3/mcL Normal 0.9-4.[address] [facility] Comment on above: Performed By: #### G FR, CMP, TSH, ANEU, MG, VIDH, ADIFF, CBC #### [place] [address] #### B12 #### [address] [address] Lymphocytes/100 WBC (Bld) 42.8 % High 20.0-40.0 [facility] Comment on above: Performed By: #### G FR, CMP, TSH, ANEU, MG, VIDH, ADIFF, CBC #### [place] [address] #### B12 #### [address] [address] Monocyte, Absolute 0.4 10 3/mcL Normal 0.1-1.4 [facility] Comment on above: Performed By: #### G FR, CMP, TSH, ANEU, MG, VIDH, ADIFF, CBC #### [place] [address] #### B12 #### [address] [address] Monocytes/100 WBC (Bld) 7.8 % Normal 2.0-13.0 [facility] Comment on above: Performed By: #### G FR, CMP, TSH, ANEU, MG, VIDH, ADIFF, CBC #### [address] [address] #### B12 #### [address] [address] Neutrophils/100 WBC (Bld) 46.5 % Low 50.0-75.0 [facility] Comment on above: Performed By: #### G FR, CMP, TSH, ANEU, MG, VIDH, ADIFF, CBC #### [address] [address] #### B12 #### [address] [address] .GFRon 06-18-2024 GFR Non- 64 ml/min/1.73sqm [facility] Comment on above: Result Comment: GFR Population [...] TSH, ANEU, MG, VIDH, ADIFF, CBC #### [address] [address] #### B12 #### [address] [address] GFR 78 ml/min/1.73sqm Normal [facility] Comment on above: Result Comment: GFR [...] TSH, ANEU, MG, VIDH, ADIFF, CBC #### [address] [address] #### B12 #### [address] [address] .NEUABSon 06-18-2024 Neutrophil, Absolute 2.2 10 3/mcL Low 2.3-8.[address] [facility] Comment on above: Performed By: #### G FR, CMP, TSH, ANEU, MG, VIDH, ADIFF, CBC #### [place] [address] #### B12 #### [address] [address] B12on 06-18-2024 Cobalamin (Vitamin B12) [Mass/Vol] 280 pg/mL Normal 211-911 [facility] Comment on above: Performed By: #### G FR, CMP, TSH, ANEU, MG, VIDH, ADIFF, CBC ####[address] [address]#### B12 ####[place] [address] CBCon 06-18-2024 Erythrocyte distribution width (RBC) [Ratio] 11.8 % Normal 11.5-15.5 [facility] Comment on above: Performed By: #### G FR, CMP, TSH, ANEU, MG, VIDH, ADIFF, CBC #### [place] [address] #### B12 #### [address] [address] Hematocrit (Bld) [Volume fraction] 43.7 % Normal 34.0-46.0 [facility] Comment on above: Performed By: #### G FR, CMP, TSH, ANEU, MG, VIDH, ADIFF, CBC #### [place] [address] #### B12 #### [place] [address] Hgb 15.0 G/dL Normal 12.0-16.0 [facility] Comment on above: Performed By: #### G FR, CMP, TSH, ANEU, MG, VIDH, ADIFF, CBC #### [place] [address] #### B12 #### [place] [address] MCH (RBC) [Entitic mass] 33.6 pg High 27.0-33.0 [facility] Comment on above: Performed By: #### G FR, CMP, TSH, ANEU, MG, VIDH, ADIFF, CBC #### [place] [address] #### B12 #### [place] [address] MCHC 34.3 G/dL Normal 32.0-36.0 [facility] Comment on above: Performed By: #### G FR, CMP, TSH, ANEU, MG, VIDH, ADIFF, CBC #### [place] [address] #### B12 #### [place] [address] MCV (RBC) [Entitic vol] 97.9 fL Normal 80.0-99.0 [facility] Comment on above: Performed By: #### G FR, CMP, TSH, ANEU, MG, VIDH, ADIFF, CBC #### [place] [address] #### B12 #### [place] [address] Platelet 211 10 3/mcL Normal 150-450 [facility] Comment on above: Performed By: #### G FR, CMP, TSH, ANEU, MG, VIDH, ADIFF, CBC #### [place] [address] #### B12 #### [place] [address] Platelet mean volume (Bld) [Entitic vol] 8.7 fL Normal 6.6-10.5 [facility] Comment on above: Performed By: #### G FR, CMP, TSH, ANEU, MG, VIDH, ADIFF, CBC #### [place] [address] #### B12 #### [place] [address] RBC 4.47 10 6/mcL Normal 4.10-5.30 [facility] Comment on above: Performed By: #### G FR, CMP, TSH, ANEU, MG, VIDH, ADIFF, CBC #### [place] [address] #### B12 #### [place] [address] WBC 4.8 10 3/mcL Normal 4.5-10.8 [facility] Comment on above: Performed By: #### G FR, CMP, TSH, ANEU, MG, VIDH, ADIFF, CBC #### [place] [address] #### B12 #### [place] [address] CMPon 06-18-2024 Albumin Level 4.1 G/dL Normal 3.4-4.8 [facility] Comment on above: Performed By: #### G FR, CMP, TSH, ANEU, MG, VIDH, ADIFF, CBC #### [place] [address] #### B12 #### [place] [address] Albumin/Globulin [Mass ratio] 1.4 {ratio} Normal 1.1-2.5 [facility] Comment on above: Performed By: #### G FR, CMP, TSH, ANEU, MG, VIDH, ADIFF, CBC #### [place] [address] #### B12 #### [address] [address] ALP [Catalytic activity/Vol] 78 U/L Normal 40-135 [facility] Comment on above: Performed By: #### G FR, CMP, TSH, ANEU, MG, VIDH, ADIFF, CBC #### [place] [address] #### B12 #### [address] [address] ALT [Catalytic activity/Vol] 52 U/L Normal 14-59 [facility] Comment on above: Performed By: #### G FR, CMP, TSH, ANEU, MG, VIDH, ADIFF, CBC #### [place] [address] #### B12 #### [place] [address] AST [Catalytic activity/Vol] 24 U/L Normal 10-40 [facility] Comment on above: Performed By: #### G FR, CMP, TSH, ANEU, MG, VIDH, ADIFF, CBC #### [place] [address] #### B12 #### [place] [address] Bili Total 0.6 mg/dL Normal 0.2-1.0 [facility] Comment on above: Result Comment: Use of this assay is not recommended for patients undergoing treatment with eltrombopag due to the potential for falsely elevated results. Performed By: #### G FR, CMP, TSH, ANEU, MG, VIDH, ADIFF, CBC #### [place] [address] #### B12 #### [place] [address] BUN/Creatinine Ratio 16 ratio Normal 7-27 [facility] Comment on above: Performed By: #### G FR, CMP, TSH, ANEU, MG, VIDH, ADIFF, CBC #### [place] [address] #### B12 #### [address] [address] Calcium [Mass/Vol] 9.8 mg/dL Normal 8.4-10.2 [facility] Comment on above: Performed By: #### G FR, CMP, TSH, ANEU, MG, VIDH, ADIFF, CBC #### [place] [address] #### B12 #### [address] [address] Chloride [Moles/Vol] 105 mmol/L Normal 98-107 [facility] Comment on above: Performed By: #### G FR, CMP, TSH, ANEU, MG, VIDH, ADIFF, CBC #### [place] [address] #### B12 #### [place] [address] CO2 [Moles/Vol] 32 mmol/L High 23-31 [facility] Comment on above: Performed By: #### G FR, CMP, TSH, ANEU, MG, VIDH, ADIFF, CBC #### [place] [address] #### B12 #### [address] [address] Creatinine [Mass/Vol] 0.87 mg/dL Normal 0.55-1.02 [facility] Comment on above: Result Comment: Test ing performed on Siemens Dimension EXL analyzer using a modified kinetic Christiana technique. Performed By: #### G FR, CMP, TSH, ANEU, MG, VIDH, ADIFF, CBC #### [place] [address] #### B12 #### [address] [address] Electrolyte Balance 4.0 mEq/L Normal 4.0-15.0 [facility] Comment on above: Performed By: #### G FR, CMP, TSH, ANEU, MG, VIDH, ADIFF, CBC #### [address] [address] #### B12 #### [address] [address] Globulin 2.9 G/dL Normal [facility] Comment on above: Performed By: #### G FR, CMP, TSH, ANEU, MG, VIDH, ADIFF, CBC #### [place] [address] #### B12 #### [address] [address] Glucose [Mass/Vol] 105 mg/dL Normal 83-110 [facility] Comment on above: Performed By: #### G FR, CMP, TSH, ANEU, MG, VIDH, ADIFF, CBC #### [place] [address] #### B12 #### [address] [address] Potassium [Moles/Vol] 4.3 mmol/L Normal 3.5-5.1 [facility] Comment on above: Performed By: #### G FR, CMP, TSH, ANEU, MG, VIDH, ADIFF, CBC #### [address] [address] #### B12 #### [address] [address] Sodium [Moles/Vol] 141 mmol/L Normal 136-145 [facility] Comment on above: Performed By: #### G FR, CMP, TSH, ANEU, MG, VIDH, ADIFF, CBC #### [place] [address] #### B12 #### [address] [address] Total Protein 7.0 G/dL Normal 6.4-8.2 [facility] Comment on above: Performed By: #### G FR, CMP, TSH, ANEU, MG, VIDH, ADIFF, CBC #### [address] [address] #### B12 #### [place] [address] Urea nitrogen [Mass/Vol] 14 mg/dL Normal 7-18 [facility] Comment on above: Performed By: #### G FR, CMP, TSH, ANEU, MG, VIDH, ADIFF, CBC #### [address] [address] #### B12 #### [address] [address] LABORATORYOrdered By: SYSTEM SYSTEM on 06-18-2024 Natriuretic [...] 06-18-2024 Magnesium [Mass/Vol] 2.2 mg/dL Normal 1.8-2.4 [facility] Comment on above: Performed By: #### G FR, CMP, TSH, ANEU, MG, VIDH, ADIFF, CBC #### [address] [address] #### B12 #### [facility] [address] [place] [address] PBNPon 06-18-2024 Natriuretic peptide B (Bld) [Mass/Vol] 20 pg/mL Normal 0-125 [facility] Comment on above: Result Comment: NT-p roBNP results of less than 300 pg/mL effectively rules out acute congestive heart failure with 99% negative predictive value. Performed By: #### P BNP ####[address] [address] TSHon 06-18-2024 TSH Qn 2.76 m[IU]/L Normal 0.36-3.74 [facility] Comment on above: Performed By: #### G FR, CMP, TSH, ANEU, MG, VIDH, ADIFF, CBC #### [address] [address] #### B12 #### [address] [address] VIDHon 06-18-2024 Vit. D 25-Hydroxy 34.7 ng/mL Normal [facility] Comment on above: Result Comment: Inte rpretive Values Based on Total 25(OH) Vitamin D: Deficient <20 ng/mL Insufficient 20 - <30 ng/mL Sufficient 30-100 ng/mL Performed By: #### G FR, CMP, TSH, ANEU, MG, VIDH, ADIFF, CBC #### [address] [address] #### B12 #### [address] [address] .GFRon 05-28-2024 GFR Non- 60 ml/min/1.73sqm Normal [facility] Comment on above: Result Comment: GFR [...] mL/min/1.73 square meters Performed By: #### C RPHS ####[address] [address]#### GFR, BMP, PBNP ####[address] [address] GFR 73 ml/min/1.73sqm Normal [facility] Comment on above: Result Comment: GFR [...] square meters Performed By: #### C RP ####[place] [address]#### GFR, BMP, PBNP ####[place] [address] [place], [place] [address] BMPon 05-28-2024 BUN/Creatinine Ratio 17 ratio Normal 7-27 [facility] Comment on above: Performed By: #### C RP ####[place] [address]#### GFR, BMP, PBNP ####[place] [address] [place], [place] [address] Calcium [Mass/Vol] 9.8 mg/dL Normal 8.4-10.2 [facility] Comment on above: Performed By: #### C RP ####[place] [address]#### GFR, BMP, PBNP ####[place] [address] [place], [place] [address] Chloride [Moles/Vol] 103 mmol/L Normal 98-107 [facility] Comment on above: Performed By: #### C RP ####[place] [address]#### GFR, BMP, PBNP ####[place] [address] [place], [place] [address] CO2 [Moles/Vol] 30 mmol/L Normal 23-31 [facility] Comment on above: Performed By: #### C RPHS ####[place] [address]#### GFR, BMP, PBNP ####[place] [address] [place], [place] [address] Creatinine [Mass/Vol] 0.92 mg/dL Normal 0.55-1.02 [facility] Comment on above: Result Comment: Test ing performed on Siemens Dimension EXL analyzer using a modified kinetic Christiana technique. Performed By: #### C RPHS ####[place] [address]#### GFR, BMP, PBNP ####[place] [id number] Electrolyte Balance 7.0 mEq/L Normal 4.0-15.0 [facility] Comment on above: Performed By: #### C RPHS ####[place] [address]#### GFR, BMP, PBNP ####[address] [address] Glucose [Mass/Vol] 115 mg/dL High 83-110 [facility] Comment on above: Performed By: #### C RPHS ####[place] [address]#### GFR, BMP, PBNP ####[address] [address] Potassium [Moles/Vol] 4.7 mmol/L Normal 3.5-5.1 [facility] Comment on above: Performed By: #### C RPHS ####[place] [address]#### GFR, BMP, PBNP ####[place] [address] [place], [place] [address] Sodium [Moles/Vol] 140 mmol/L Normal 136-145 [facility] Comment on above: Performed By: #### C RPHS ####[place] [address]#### GFR, BMP, PBNP ####[facility] [place] [facility] [place], [place] [address] Urea nitrogen [Mass/Vol] 16 mg/dL Normal 02-25 [facility] Comment on above: Performed By: #### C [facility] ####[address] [address]#### GFR, BMP, PBNP ####[facility] [place] [facility] [place], [place] [address] CRPHSon 05-28-2024 CRP, High Sensitive 0.81 mg/L Normal 0.20-3.00 [facility] Comment on above: Result Comment: Rela tive Risk Category and Average hs-CRP Level: Higher Risk: > 5.0 mg/L Guidelines support that hs-CRP can be used as an independent predictor of increased coronary risk; however, hs-CRP results should only be interpreted in conjunction with other cardiac risk factors in establishing overall cardiac risk for a given patient. Performed By: #### C [facility] ####[place] [address]#### GFR, BMP, PBNP ####[facility] [place] [id number] LABORATORYOrdered By: SYSTEM SYSTEM on 05-28-2024 Calcium [...] B (Bld) [Mass/Vol] 21 pg/mL Normal 0-125 [facility] Comment on above: Result Comment: NT-p roBNP results of less than 300 pg/mL effectively rules out acute congestive heart failure with 99% negative predictive value. Performed By: #### C RPHS ####[place] [address]#### GFR, BMP, PBNP ####[place] [address] .Auto Diffon 11-05-2023 Basophil, Absolute 0.0 10 3/mcL Normal 0.0-0.2 [facility] ([place]) Comment on above: Performed By: #### T SH, CBC, GFR, LIPID, FT4, CMP, ADIFF, ANEU #### [place] [address] #### E2, FSH #### [place] [address] Basophils/100 WBC (Bld) 0.7 % Normal 0.0-2.5 [facility] ([place]) Comment on above: Performed By: #### T SH, CBC, GFR, LIPID, FT4, CMP, ADIFF, ANEU #### [place] [address] #### E2, FSH #### [place] [address] Eosinophil, Absolute 0.2 10 3/mcL Normal 0.0-0.4 [facility] ([place]) Comment on above: Performed By: #### T SH, CBC, GFR, LIPID, FT4, CMP, ADIFF, ANEU #### [address] [id number] #### E2, FSH #### [address] [address] Eosinophils/100 WBC (Bld) 4.0 % Normal 0.0-7.0 [facility] ([place]) Comment on above: Performed By: #### T SH, CBC, GFR, LIPID, FT4, CMP, ADIFF, ANEU #### [address] [id number] #### E2, FSH #### [address] [address] Lymphocyte, Absolute 2.3 10 3/mcL Normal 0.8-3.9 [facility] ([place]) Comment on above: Performed By: #### T SH, CBC, GFR, LIPID, FT4, CMP, ADIFF, ANEU #### [place] [id number] #### E2, FSH #### [address] [address] Lymphocytes/100 WBC (Bld) 42.2 % Normal 10.0-50.0 [facility] ([place]) Comment on above: Performed By: #### T SH, CBC, GFR, LIPID, FT4, CMP, ADIFF, ANEU #### [address] [address] #### E2, FSH #### [address] [address] Monocyte, Absolute 0.5 10 3/mcL Normal 0.2-1.0 [facility] ([place]) Comment on above: Performed By: #### T SH, CBC, GFR, LIPID, FT4, CMP, ADIFF, ANEU #### [place] [address] #### E2, FSH #### [address] [address] Monocytes/100 WBC (Bld) 9.3 % Normal 1.7-13.0 [facility] ([place]) Comment on above: Performed By: #### T SH, CBC, GFR, LIPID, FT4, CMP, ADIFF, ANEU #### [address] [address] #### E2, FSH #### [address] [address] Neutrophils/100 WBC (Bld) 43.8 % Normal 37.0-80.0 [facility] ([place]) Comment on above: Performed By: #### T SH, CBC, GFR, LIPID, FT4, CMP, ADIFF, ANEU #### [address] [address] #### E2, FSH #### [address] [address] .GFRon 11-05-2023 GFR Non- 68 ml/min/1.73sqm Normal [facility] ([place]) Comment on above: Result Comment: GFR Population [...] GFR, LIPID, FT4, CMP, ADIFF, ANEU #### [address] [address] #### E2, FSH #### [address] [address] GFR 83 ml/min/1.73sqm Normal [facility] ([place]) Comment on above: Result Comment: GFR Population [...] GFR, LIPID, FT4, CMP, ADIFF, ANEU #### [place] [address] #### E2, FSH #### [address] [address] .NEUABSon 11-05-2023 Neutrophil, Absolute 2.4 10 3/mcL Low 2.9-6.2 [facility] ([place]) Comment on above: Performed By: #### T SH, CBC, GFR, LIPID, FT4, CMP, ADIFF, ANEU #### [place] [address] #### E2, FSH #### [place] [address] CBCon 11-05-2023 Erythrocyte distribution width (RBC) [Ratio] 12.1 % Normal 11.5-14.5 [facility] ([place]) Comment on above: Performed By: #### T SH, CBC, GFR, LIPID, FT4, CMP, ADIFF, ANEU #### [place] [id number] #### E2, FSH #### [address] [address] Hematocrit (Bld) [Volume fraction] 43.9 % Normal 37.0-47.0 [facility] ([place]) Comment on above: Performed By: #### T SH, CBC, GFR, LIPID, FT4, CMP, ADIFF, ANEU #### [place] [id number] #### E2, FSH #### [place] [address] Hgb 15.4 G/dL Normal 12.0-16.0 [facility] ([place]) Comment on above: Performed By: #### T SH, CBC, GFR, LIPID, FT4, CMP, ADIFF, ANEU #### [place] [address] #### E2, FSH #### [place] [address] MCH (RBC) [Entitic mass] 33.3 pg High 27.0-31.2 [facility] ([place]) Comment on above: Performed By: #### T SH, CBC, GFR, LIPID, FT4, CMP, ADIFF, ANEU #### [place] [address] #### E2, FSH #### [place] [address] MCHC 35.0 G/dL Normal 33.0-37.0 [facility] ([place]) Comment on above: Performed By: #### T SH, CBC, GFR, LIPID, FT4, CMP, ADIFF, ANEU #### [place] [address] #### E2, FSH #### [place] [address] MCV (RBC) [Entitic vol] 95.0 fL High 80.0-94.0 [facility] ([place]) Comment on above: Performed By: #### T SH, CBC, GFR, LIPID, FT4, CMP, ADIFF, ANEU #### [place] [address] #### E2, FSH #### [place] [address] Platelet 241 10 3/mcL Normal 130-400 [facility] ([place]) Comment on above: Performed By: #### T SH, CBC, GFR, LIPID, FT4, CMP, ADIFF, ANEU #### [place] [address] #### E2, FSH #### [address] [address] Platelet mean volume (Bld) [Entitic vol] 8.1 fL Normal 7.4-10.4 [facility] ([place]) Comment on above: Performed By: #### T SH, CBC, GFR, LIPID, FT4, CMP, ADIFF, ANEU #### [address] [address] #### E2, FSH #### [place] [address] RBC 4.62 10 6/mcL Normal 4.20-5.40 [facility] ([place]) Comment on above: Performed By: #### T SH, CBC, GFR, LIPID, FT4, CMP, ADIFF, ANEU #### [place] [address] #### E2, FSH #### [place] [address] WBC 5.5 10 3/mcL Normal 4.6-10.8 [facility] ([place]) Comment on above: Performed By: #### T SH, CBC, GFR, LIPID, FT4, CMP, ADIFF, ANEU #### [place] [address] #### E2, FSH #### [place] [address] CMPon 11-05-2023 Albumin Level 3.7 G/dL Normal 3.4-4.8 [facility] ([place]) Comment on above: Performed By: #### T SH, CBC, GFR, LIPID, FT4, CMP, ADIFF, ANEU #### [place] [address] #### E2, FSH #### [place] [address] Albumin/Globulin [Mass ratio] 1.1 {ratio} Normal 1.1-2.5 [facility] ([place]) Comment on above: Performed By: #### T SH, CBC, GFR, LIPID, FT4, CMP, ADIFF, ANEU #### [place] [address] #### E2, FSH #### [address] [address] ALP [Catalytic activity/Vol] 77 U/L Normal 40-135 [facility] ([place]) Comment on above: Performed By: #### T SH, CBC, GFR, LIPID, FT4, CMP, ADIFF, ANEU #### [place] [address] #### E2, FSH #### [address] [address] ALT [Catalytic activity/Vol] 42 U/L Normal 14-59 [facility] ([place]) Comment on above: Performed By: #### T SH, CBC, GFR, LIPID, FT4, CMP, ADIFF, ANEU #### [place] [address] #### E2, FSH #### [place] [address] AST [Catalytic activity/Vol] 21 U/L Normal 10-40 [facility] ([place]) Comment on above: Performed By: #### T SH, CBC, GFR, LIPID, FT4, CMP, ADIFF, ANEU #### [place] [address] #### E2, FSH #### [address] [address] Bili Total 0.7 mg/dL Normal 0.2-1.0 [facility] ([place]) Comment on above: Result Comment: Use of this assay is not recommended for patients undergoing treatment with eltrombopag due to the potential for falsely elevated results. Performed By: #### T SH, CBC, GFR, LIPID, FT4, CMP, ADIFF, ANEU #### [place] [address] #### E2, FSH #### [place] [id number] BUN/Creatinine Ratio 24 ratio Normal 7-27 [facility] ([place]) Comment on above: Performed By: #### T SH, CBC, GFR, LIPID, FT4, CMP, ADIFF, ANEU #### [address] [address] #### E2, FSH #### [address] [address] Calcium [Mass/Vol] 9.7 mg/dL Normal 8.4-10.2 [facility] ([place] Comment on above: Performed By: #### T SH, CBC, GFR, LIPID, FT4, CMP, ADIFF, ANEU #### [address] [address] #### E2, FSH #### [address] [address] Chloride [Moles/Vol] 105 mmol/L Normal 98-107 [facility] ([place]) Comment on above: Performed By: #### T SH, CBC, GFR, LIPID, FT4, CMP, ADIFF, ANEU #### [address] [address] #### E2, FSH #### [address] [address] CO2 [Moles/Vol] 30 mmol/L Normal 23-31 [facility] ([place]) Comment on above: Performed By: #### T SH, CBC, GFR, LIPID, FT4, CMP, ADIFF, ANEU #### [address] [address] #### E2, FSH #### [address] [address] Creatinine [Mass/Vol] 0.83 mg/dL Normal 0.55-1.02 [facility] ([place]) Comment on above: Performed By: #### T SH, CBC, GFR, LIPID, FT4, CMP, ADIFF, ANEU #### [address] [address] #### E2, FSH #### [address] [address] Electrolyte Balance 10.0 mEq/L Normal 4.0-15.0 [facility] ([place]) Comment on above: Performed By: #### T SH, CBC, GFR, LIPID, FT4, CMP, ADIFF, ANEU #### [address] [address] #### E2, FSH #### [address] [address] Globulin 3.4 G/dL Normal [facility] ([place]) Comment on above: Performed By: #### T SH, CBC, GFR, LIPID, FT4, CMP, ADIFF, ANEU #### [place] [address] #### E2, FSH #### [address] [address] Glucose [Mass/Vol] 107 mg/dL Normal 80-115 [facility] [place] Comment on above: Performed By: #### T SH, CBC, GFR, LIPID, FT4, CMP, ADIFF, ANEU #### [place] [address] #### E2, FSH #### [address] [address] Potassium [Moles/Vol] 4.8 mmol/L Normal 3.5-5.1 [facility] ([place]) Comment on above: Performed By: #### T SH, CBC, GFR, LIPID, FT4, CMP, ADIFF, ANEU #### [place] [address] #### E2, FSH #### [address] [address] Sodium [Moles/Vol] 145 mmol/L Normal 136-145 [facility] [place]) Comment on above: Performed By: #### T SH, CBC, GFR, LIPID, FT4, CMP, ADIFF, ANEU #### [place] [address] #### E2, FSH #### [address] [address] Total Protein 7.1 G/dL Normal 6.4-8.2 [facility] ([place]) Comment on above: Performed By: #### T SH, CBC, GFR, LIPID, FT4, CMP, ADIFF, ANEU #### [place] [address] #### E2, FSH #### [address] [address] Urea nitrogen [Mass/Vol] 20 mg/dL High 02-25 [facility] ([place]) Comment on above: Performed By: #### T SH, CBC, GFR, LIPID, FT4, CMP, ADIFF, ANEU #### [place] [address] #### E2, FSH #### [address] [address] E2on 11-05-2023 Estradiol Level <11.80 Normal [facility] ([place]) Comment on above: Result Comment: No te - New Reference Range in effect 20 Adult Female E2 Reference Ranges: Follicular phase 19.5 - 144.2 pg/mL Midcycle 63.9 - 356.7 pg/mL Luteal phase 55.8 - 214.2 pg/mL Post menopausal 0 - 33.2 pg/mL Performed By: #### T SH, CBC, GFR, LIPID, FT4, CMP, ADIFF, ANEU #### [place] [address] #### E2, FSH #### [address] [address] FSHon 11-05-2023 FSH 64.9 mIU/mL Normal [facility] ([place]) Comment on above: Result Comment: Adul t Female FSH Reference Ranges (07/04/99): Follicular phase 2.5 - 10.2 mIU/mL Midcycle phase 3.4 - 33.4 mIU/mL Luteal phase 1.5 - 9.1 mIU/mL Post menopausal 23.0 -116.3 mIU/mL Adult Male: 1.4 - 18.1 mIU/mL Performed By: #### T SH, CBC, GFR, LIPID, FT4, CMP, ADIFF, ANEU #### [place] [address] #### E2, FSH #### [address] [address] FT4on 11-05-2023 Free T4 [Mass/Vol] 0.92 ng/dL Normal 0.76-1.46 [facility] [place]) Comment on above: Performed By: #### T SH, CBC, GFR, LIPID, FT4, CMP, ADIFF, ANEU #### [place] [id number] [place], [place] [address] #### E2, FSH #### [address] [address] LABORATORYOrdered By: SYSTEM SYSTEM on 11-05-2023 Albumin [...] SS E2 [Mass/Vol] pg/mL Invalid Interpretation Code AH ADM SS Comment on above: Interpretive [...] Cholesterol [Mass/Vol] 291 mg/dL High 0 - 2 00 mg/dL AO ADM SS Comment on above: [...] 11-05-2023 Cholesterol [Mass/Vol] 291 mg/dL High 0-200 [facility] ([place]) Comment on above: Result Comment: Chol esterol Reference Interval: Less than 200 Desirable 200-239 Borderline high risk 240 and above High risk Performed By: #### T , CBC, GFR, LIPID, FT4, CMP, ADIFF, ANEU #### [address] [address] #### E2, FSH #### [address] [address] Cholesterol in HDL [Mass/Vol] 52 mg/dL Normal 40-60 [facility] ([place]) Comment on above: Performed By: #### T SH, CBC, GFR, LIPID, FT4, CMP, ADIFF, ANEU #### [address] [address] #### E2, FSH #### [address] [address] Cholesterol in LDL [Mass/Vol] 202 mg/dL High 0-130 [facility] ([place]) Comment on above: Performed By: #### T SH, CBC, GFR, LIPID, FT4, CMP, ADIFF, ANEU #### [place] [address] #### E2, FSH #### [address] [address] Triglyceride [Mass/Vol] 184 mg/dL High 0-150 [facility] ([place]) Comment on above: Result Comment: Trig lyceride Reference Interval: Less than 150 Normal 150-199 Borderline high risk 200-499 High risk 500 or higher Very high risk Performed By: #### T SH, CBC, GFR, LIPID, FT4, CMP, ADIFF, ANEU #### [place] [address] #### E2, FSH #### [address] [address] TSHon 11-05-2023 TSH Qn 3.01 m[IU]/L Normal 0.36-3.74 [facility] ([place]) Comment on above: Performed By: #### T SH, CBC, GFR, LIPID, FT4, CMP, ADIFF, ANEU #### [place] [id number] #### E2, FSH #### [address] [address] XR SPINE LUMBAR W/OBLIQUES 4 VIEWSon 06-12-2023 [...] 06/12/2023 8:32:32 AM Ordering Provider: TIMUR Dunn [facility]) LABORATORYOrdered By: SYSTEM SYSTEM on 12-02-2022 25-hydroxyvitamin D3 [Mass/Vol] 43.3 ng/mL Invalid Interpretation Code AO ADM SS VIDHon 12-02-2022 Vit. D 25-Hydroxy 43.3 ng/mL Normal [facility] ([place]) Comment on above: Result Comment: Inte rpretive Values Based on Total 25(OH) Vitamin D: Deficient <20 ng/mL Insufficient 20 - <30 ng/mL Sufficient 30-100 ng/mL Performed By: #### T SH, CBC, GFR, LIPID, FT4, CMP, ADIFF, ANEU #### [address] [address] #### E2, FSH #### [address] [address] [place] MAMMOGRAM SCREENING BILAT ERAL W/TOMOon 11-08-2022 MA MAMMOGRAM SCREENING BILATERAL W/FABRIZIO ORIGINAL FROM: [address] [address] PROCEDURE FOR: LIZ ROBLES [facility] [place] [address] Home: PID#: [id number] Exam#: [id number] : 1955 Age: 67 TO: BABITA MORATAYA RADIOLOGY EQUIPMENT 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 [address] [facility] [place] [address] Fax: NO FAX EXAMINATION: SCREENING DIGITAL BILATERAL [...] 11/07/2022 11:16:26 PM Ordering Provider: BABITA MORATAYA Director Of Accreditation: JERRI MACIAS RT (R) (M) (CT) letter sent: Normal BI-RADS 1 and 2 Mammogram BI-RADS: 2 Benign Normal [facility] ([place]) BD BONE DENSITY DEXA AXIAL S [facility] 11-06-2022 BD BONE DENSITY DEXA AXIAL SKELETON [...] Richar Govea DO Preliminary Report By: Richar Goeva DO Electronically signed By Richar Govea DO Dictated Date: 11/06/2022 1:38:03 PM Prelim Date: 11/06/2022 1:38:35 PM Sign Date: 11/06/2022 1:38:35 PM Ordering Provider: BABITA MORATAYA [facility] ([place]) LABORATORYOrdered By: SYSTEM SYSTEM on 10-10-2022 Albumin [...] Time Vital Sign Value Performing Clinician Facility 04-14-2025 16:15-0400 Body temperature 97.9 [degF] Babita Morataya NP-C Work Phone: [facility] 04-14-2025 16:15-0400 Diastolic blood pressure 78 mm[Hg] Babita Morataya NP-C Work Phone: [facility] 04-14-2025 16:15-0400 Heart rate 100 /min Babita Morataya NP-C Work Phone: [facility] 04-14-2025 16:15-0400 Respiratory rate 16 /min Babita Morataya NP-C Work Phone: [facility] 04-14-2025 16:15-0400 SaO2% (BldA) [Mass fraction] 98 % Babita Morataya CASH POSTING CLERK-C Work Phone: [facility] 04-14-2025 16:15-0400 Systolic blood pressure 126 mm[Hg] Babita Morataya CASH POSTING CLERK-C Work Phone: [facility] 04-14-2025 13:42-0400 Body height 165.1 cm Babita Morataya CASH POSTING CLERK-C Work Phone: [facility] 04-14-2025 13:42-0400 Body mass index (BMI) [Ratio] 28.4 kg/m2 Babita Morataya CASH POSTING CLERK-C Work Phone: [facility] 04-14-2025 13:42-0400 Body weight 77.6 kg Babita Morataya CASH POSTING CLERK-C Work Phone: [facility] 04-07-2025 08:53-0400 Body temperature 98.6 [degF] Injection Wstr Work Phone: [facility] 04-06-2025 11:00-0400 Body mass index (BMI) [Ratio] 27.24 kg/m2 Treatment Wstr Work Phone: [facility] 04-06-2025 11:00-0400 Body weight 75.52 kg Treatment Wstr Work Phone: [facility] 04-06-2025 10:00-0400 Body temperature 96.6 [degF] Treatment Wstr Work Phone: [facility] 04-06-2025 10:00-0400 Diastolic blood pressure 67 mm[Hg] Treatment Wstr Work Phone: [facility] 04-06-2025 10:00-0400 Heart rate 89 /min Treatment Wstr Work Phone: [facility] 04-06-2025 10:00-0400 Respiratory rate 18 /min Treatment Wstr Work Phone: [facility] 04-06-2025 10:00-0400 SaO2% (BldA) [Mass fraction] 97 % Treatment Wstr Work Phone: [facility] 04-06-2025 10:00-0400 Systolic blood pressure 106 mm[Hg] Treatment Wstr Work Phone: [facility] 04-01-2025 09:33-0400 Body mass index (BMI) [Ratio] 27.65 kg/m2 Injection Wstr Work Phone: [facility] 04-01-2025 09:33-0400 Body temperature 98.29 [degF] Injection Wstr Work Phone: [facility] 04-01-2025 09:33-0400 Body weight 76.66 kg Injection Wstr Work Phone: [facility] 04-01-2025 09:33-0400 Diastolic blood pressure 54 mm[Hg] Injection Wstr Work Phone: [facility] 04-01-2025 09:33-0400 Heart rate 109 /min Injection Wstr Work Phone: [facility] 04-01-2025 09:33-0400 SaO2% (BldA) [Mass fraction] 99 % Injection Wstr Work Phone: [facility] 04-01-2025 09:33-0400 Systolic blood pressure 130 mm[Hg] Injection Wstr Work Phone: [facility] 03-30-2025 10:00-0400 Body mass index (BMI) [Ratio] 27.33 kg/m2 Treatment Wstr Work Phone: [facility] 03-30-2025 10:00-0400 Body temperature 97.5 [degF] Treatment Wstr Work Phone: [facility] 03-30-2025 10:00-0400 Body weight 75.75 kg Treatment Wstr Work Phone: [facility] 03-25-2025 14:54-0400 Body temperature 99.19 [degF] Injection Wstr Work Phone: [facility] 03-25-2025 10:51-0400 Body mass index (BMI) [Ratio] 27.52 kg/m2 Emilie Lennon MD Work Phone: [facility] 03-25-2025 10:51-0400 Body weight 76.3 kg Emilie Lennon MD Work Phone: [facility] 03-25-2025 10:51-0400 Diastolic blood pressure 76 mm[Hg] Emilie Lennon MD Work Phone: [facility] 03-25-2025 10:51-0400 Systolic blood pressure 120 mm[Hg] Emilie Lennon MD Work Phone: [facility] 03-24-2025 10:00-0400 Body temperature 97.81 [degF] Lab/Port Wstr Work Phone: [facility] 03-24-2025 10:00-0400 Diastolic blood pressure 68 mm[Hg] Lab/Port Wstr Work Phone: [facility] 03-24-2025 10:00-0400 Heart rate 59 /min Lab/Port Wstr Work Phone: [facility] 03-24-2025 10:00-0400 Systolic blood pressure 159 mm[Hg] Lab/Port Wstr Work Phone: [facility] 03-23-2025 08:09-0400 Body temperature 97.81 [degF] Treatment Wstr Work Phone: [facility] 03-23-2025 08:09-0400 Diastolic blood pressure 75 mm[Hg] Treatment Wstr Work Phone: [facility] 03-23-2025 08:09-0400 Heart rate 90 /min Treatment Wstr Work Phone: [facility] 03-23-2025 08:09-0400 Respiratory rate 18 /min Treatment Wstr Work Phone: [facility] 03-23-2025 08:09-0400 SaO2% (BldA) [Mass fraction] 99 % Treatment Wstr Work Phone: [facility] 03-23-2025 08:09-0400 Systolic blood pressure 120 mm[Hg] Treatment Wstr Work Phone: [facility] 03-22-2025 10:05-0400 Body height 166.5 cm Sonali Hopeenter SWITCHMAN SUPERVISOR.RADIOLOGY EQUIPMENT SERVICER Work Phone: [facility] 03-22-2025 10:05-0400 Body mass index (BMI) [Ratio] 27.41 kg/m2 [employer] SWITCHMAN SUPERVISOR.RADIOLOGY EQUIPMENT SERVICER Work Phone: [facility] 03-22-2025 10:05-0400 Body temperature 98.4 [degF] Sonali Hopeenter SWITCHMAN SUPERVISOR.RADIOLOGY EQUIPMENT SERVICER Work Phone: [facility] 03-22-2025 10:05-0400 Body weight 76 kg [place] Love SWITCHMAN SUPERVISOR.RADIOLOGY EQUIPMENT SERVICER Work Phone: [facility] 03-22-2025 10:05-0400 Diastolic blood pressure 56 mm[Hg] Sonali Hopeenter SWITCHMAN SUPERVISOR.RADIOLOGY EQUIPMENT SERVICER Work Phone: [facility] Comment on above: 98/60, taken manually 03-22-2025 10:05-0400 Heart rate 97 /min Sonali Love SWITCHMAN SUPERVISOR.RADIOLOGY EQUIPMENT SERVICER Work Phone: [facility] 03-22-2025 10:05-0400 SaO2% (BldA) [Mass fraction] 99 % [employer] SWITCHMAN SUPERVISOR.RADIOLOGY EQUIPMENT SERVICER Work Phone: [facility] 03-22-2025 10:05-0400 Systolic blood pressure 95 mm[Hg] Sonali Hopeenter SWITCHMAN SUPERVISOR.RADIOLOGY EQUIPMENT SERVICER Work Phone: [facility] Comment on above: 98/60, taken manually 03-18-2025 23:41-0400 Body temperature 98.2 [degF] Babita LATHAM Work Phone: [facility] 03-18-2025 23:41-0400 Diastolic blood pressure 52 mm[Hg] Babita Morataya NP-C Work Phone: [facility] 03-18-2025 23:41-0400 Heart rate 92 /min Babita Lorson CASH POSTING CLERK-C Work Phone: [facility] 03-18-2025 23:41-0400 Respiratory rate 18 /min Babita Morataya CASH POSTING CLERK-C Work Phone: [facility] 03-18-2025 23:41-0400 SaO2% (BldA) [Mass fraction] 97 % Babita Morataya CASH POSTING CLERK-C Work Phone: [facility] 03-18-2025 23:41-0400 Systolic blood pressure 115 mm[Hg] Babita Morataya CASH POSTING CLERK-C Work Phone: [facility] 03-18-2025 22:01-0400 Body height 165.1 cm Babita Morataya CASH POSTING CLERK-C Work Phone: [facility] 03-18-2025 22:01-0400 Body mass index (BMI) [Ratio] 28.3 kg/m2 Babita Morataya CASH POSTING CLERK-C Work Phone: [facility] 03-18-2025 22:01-0400 Body weight 77.3 kg Babita Morataya CASH POSTING CLERK-C Work Phone: [facility] 03-18-2025 12:40-0400 Body temperature 97.2 [degF] Babita Morataya CASH POSTING CLERK-C Work Phone: [facility] 03-18-2025 12:40-0400 Diastolic blood pressure 57 mm[Hg] Babita Morataya CASH POSTING CLERK-C Work Phone: [facility] 03-18-2025 12:40-0400 Heart rate 82 /min Babita Morataya CASH POSTING CLERK-C Work Phone: [facility] 03-18-2025 12:40-0400 Respiratory rate 16 /min Babita Morataya CASH POSTING CLERK-C Work Phone: [facility] 03-18-2025 12:40-0400 SaO2% (BldA) [Mass fraction] 99 % Babita Morataya CASH POSTING CLERK-C Work Phone: [facility] 03-18-2025 12:40-0400 Systolic blood pressure 95 mm[Hg] Babita Morataya CASH POSTING CLERK-C Work Phone: [facility] 03-18-2025 10:43-0400 Body height 165.1 cm Babita Rafia CASH POSTING CLERK-C Work Phone: [facility] 03-18-2025 10:43-0400 Body mass index (BMI) [Ratio] 27.8 kg/m2 Babita Morataya CASH POSTING CLERK-C Work Phone: [facility] 03-18-2025 10:43-0400 Body weight 76 kg Babita Rafia CASH POSTING CLERK-C Work Phone: [facility] 03-14-2025 10:11-0400 Body mass index (BMI) [Ratio] 27.96 kg/m2 Orville [employer] DO Work Phone: [facility] 03-14-2025 10:11-0400 Body temperature 97.3 [degF] Orville Haofangtongi DO Work Phone: [facility] 03-14-2025 10:11-0400 Body weight 76.2 kg Orville Haofangtongi DO Work Phone: [facility] 03-14-2025 10:11-0400 Diastolic blood pressure 72 mm[Hg] Orville Haofangtongi DO Work Phone: [facility] 03-14-2025 10:11-0400 Heart rate 96 /min Orville Haofangtongi DO Work Phone: [facility] 03-14-2025 10:11-0400 SaO2% (BldA) [Mass fraction] 99 % Orville Haofangtongi DO Work Phone: [facility] 03-14-2025 10:11-0400 Systolic blood pressure 127 mm[Hg] Orville Marci DO Work Phone: [facility] 03-09-2025 10:02-0400 Body mass index (BMI) [Ratio] 27.71 kg/m2 Treatment Wstr Work Phone: [facility] 03-09-2025 10:020400 Body temperature 96.91 [degF] Treatment Wstr Work Phone: [facility] 03-09-2025 10:02-0400 Body weight 75.52 kg Treatment Wstr Work Phone: [facility] 03-09-2025 10:02-0400 Diastolic blood pressure 68 mm[Hg] Treatment Wstr Work Phone: [facility] 03-09-2025 10:02-0400 Heart rate 100 /min Treatment Wstr Work Phone: [facility] 03-09-2025 10:02-0400 Respiratory rate 22 /min Treatment Wstr Work Phone: [facility] 03-09-2025 10:02-0400 Systolic blood pressure 128 mm[Hg] Treatment Wstr Work Phone: [facility] 03-07-2025 08:43-0400 Body height 165.1 cm Emilie Lennon MD Work Phone: [facility] 03-07-2025 08:43-0400 Body mass index (BMI) [Ratio] 27.16 kg/m2 Emilie Lennon MD Work Phone: [facility] 03-07-2025 08:43-0400 Body weight 74.03 kg Emilie Lennon MD Work Phone: [facility] 03-07-2025 08:43-0400 Diastolic blood pressure 65 mm[Hg] Emilie Lennon MD Work Phone: [facility] 03-07-2025 08:43-0400 Heart rate 89 /min Emilie Lennon MD Work Phone: [facility] 03-07-2025 08:43-0400 Respiratory rate 16 /min Emilie Lennon MD Work Phone: [facility] 03-07-2025 08:43-0400 SaO2% (BldA) [Mass fraction] 100 % Emilie Lennon MD Work Phone: [facility] 03-07-2025 08:43-0400 Systolic blood pressure 121 mm[Hg] Emilie Lennon MD Work Phone: [facility] 03-02-2025 08:05-0400 Body temperature 97.59 [degF] Treatment Wstr Work Phone: [facility] 03-02-2025 08:05-0400 Diastolic blood pressure 67 mm[Hg] Treatment Wstr Work Phone: [facility] 03-02-2025 08:05-0400 Heart rate 97 /min Treatment Wstr Work Phone: [facility] 03-02-2025 08:05-0400 Respiratory rate 22 /min Treatment Wstr Work Phone: [facility] 03-02-2025 08:05-0400 SaO2% (BldA) [Mass fraction] 100 % Treatment Wstr Work Phone: [facility] 03-02-2025 08:05-0400 Systolic blood pressure 148 mm[Hg] Treatment Wstr Work Phone: [facility] 03-01-2025 09:15-0400 Body mass index (BMI) [Ratio] 28.12 kg/m2 Sonali Love SWITCHMAN SUPERVISOR.RADIOLOGY EQUIPMENT SERVICER Work Phone: [facility] 03-01-2025 09:15-0400 Body temperature 98.29 [degF] Sonali Love SWITCHMAN SUPERVISOR.RADIOLOGY EQUIPMENT SERVICER Work Phone: [facility] 03-01-2025 09:15-0400 Body weight 76.66 kg Sonali Love SWITCHMAN SUPERVISOR.RADIOLOGY EQUIPMENT SERVICER Work Phone: [facility] 03-01-2025 09:15-0400 Diastolic blood pressure 74 mm[Hg] Sonali Love SWITCHMAN SUPERVISOR.RADIOLOGY EQUIPMENT SERVICER Work Phone: [facility] 03-01-2025 09:15-0400 Heart rate 100 /min Sonali Love SWITCHMAN SUPERVISOR.RADIOLOGY EQUIPMENT SERVICER Work Phone: [facility] 03-01-2025 09:15-0400 SaO2% (BldA) [Mass fraction] 100 % Sonali Love SWITCHMAN SUPERVISOR.RADIOLOGY EQUIPMENT SERVICER Work Phone: [facility] 03-01-2025 09:15-0400 Systolic blood pressure 146 mm[Hg] [place] Love RADIOLOGY EQUIPMENT SERVICER Work Phone: [facility] 03-01-2025 08:37-0400 Body mass index (BMI) [Ratio] 28.12 kg/m2 Lab/Port Wstr Work Phone: [facility] 03-01-2025 08:37-0400 Body weight 76.66 kg Lab/Port Wstr Work Phone: [facility] 02-27-2025 10:41-0400 Body temperature 98.4 [degF] Babita Morataya CASH POSTING CLERK-C Work Phone: [facility] 02-27-2025 10:41-0400 Diastolic blood pressure 54 mm[Hg] Babita Morataya CASH POSTING CLERK-C Work Phone: [facility] 02-27-2025 10:41-0400 Heart rate 100 /min Babita Morataya CASH POSTING CLERK-C Work Phone: [facility] 02-27-2025 10:41-0400 Respiratory rate 17 /min Babita Morataya CASH POSTING CLERK-C Work Phone: [facility] 02-27-2025 10:41-0400 SaO2% (BldA) [Mass fraction] 100 % Babita Morataya CASH POSTING CLERK-C Work Phone: [facility] 02-27-2025 10:41-0400 Systolic blood pressure 123 mm[Hg] Babita Morataya CASH POSTING CLERK-C Work Phone: [facility] 02-27-2025 10:18-0400 Body height 165.1 cm Babita Morataya CASH POSTING CLERK-C Work Phone: [facility] 02-23-2025 10:15-0400 Body temperature 97 [degF] Treatment Wstr Work Phone: [facility] 02-23-2025 10:15-0400 Diastolic blood pressure 57 mm[Hg] Treatment Wstr Work Phone: [facility] 02-23-2025 10:15-0400 Heart rate 86 /min Treatment Wstr Work Phone: [facility] 02-23-2025 10:15-0400 Respiratory rate 18 /min Treatment Wstr Work Phone: [facility] 02-23-2025 10:15-0400 SaO2% (BldA) [Mass fraction] 99 % Treatment Wstr Work Phone: [facility] 02-23-2025 10:15-0400 Systolic blood pressure 118 mm[Hg] Treatment Wstr Work Phone: [facility] 02-22-2025 14:35-0400 Body mass index (BMI) [Ratio] 27.96 kg/m2 Emilie Lennon MD Work Phone: [facility] 02-22-2025 14:35-0400 Body weight 76.2 kg Emilie Lennon MD Work Phone: [facility] 02-22-2025 14:35-0400 Diastolic blood pressure 70 mm[Hg] Emilie Lennon MD Work Phone: [facility] 02-22-2025 14:35-0400 Systolic blood pressure 104 mm[Hg] Emilie Lennon MD Work Phone: [facility] 02-16-2025 10:54-0400 Body mass index (BMI) [Ratio] 27.37 kg/m2 Treatment Wstr Work Phone: [facility] 02-16-2025 10:54-0400 Body temperature 97.39 [degF] Treatment Wstr Work Phone: [facility] 02-16-2025 10:54-0400 Body weight 74.62 kg Treatment Wstr Work Phone: [facility] 02-16-2025 10:54-0400 Diastolic blood pressure 71 mm[Hg] Treatment Wstr Work Phone: [facility] 02-16-2025 10:54-0400 Heart rate 83 /min Treatment Wstr Work Phone: [facility] 02-16-2025 10:54-0400 SaO2% (BldA) [Mass fraction] 99 % Treatment Wstr Work Phone: [facility] 02-16-2025 10:54-0400 Systolic blood pressure 145 mm[Hg] Treatment Wstr Work Phone: [facility] 02-09-2025 07:00-0400 Body temperature 97.11 [degF] Treatment Wstr Work Phone: [facility] 02-09-2025 07:00-0400 Diastolic blood pressure 75 mm[Hg] Treatment Wstr Work Phone: [facility] 02-09-2025 07:00-0400 Heart rate 76 /min Treatment Wstr Work Phone: [facility] 02-09-2025 07:00-0400 Systolic blood pressure 116 mm[Hg] Treatment Wstr Work Phone: [facility] 02-08-2025 11:05-0400 Body mass index (BMI) [Ratio] 26.96 kg/m2 Sonali Love SWITCHMAN SUPERVISOR.RADIOLOGY EQUIPMENT SERVICER Work Phone: [facility] 02-08-2025 11:05-0400 Body temperature 98.2 [degF] Sonali Love SWITCHMAN SUPERVISOR.RADIOLOGY EQUIPMENT SERVICER Work Phone: [facility] 02-08-2025 11:05-0400 Body weight 73.48 kg Sonali Love APRN.RADIOLOGY EQUIPMENT SERVICER Work Phone: [facility] 02-08-2025 11:05-0400 Diastolic blood pressure 79 mm[Hg] Sonali Love SWITCHMAN SUPERVISOR.RADIOLOGY EQUIPMENT SERVICER Work Phone: [facility] 02-08-2025 11:05-0400 Heart rate 84 /min Sonali Love APRN.RADIOLOGY EQUIPMENT SERVICER Work Phone: [facility] 02-08-2025 11:05-0400 SaO2% (BldA) [Mass fraction] 100 % Sonali Love APRN.RADIOLOGY EQUIPMENT SERVICER Work Phone: [facility] 02-08-2025 11:05-0400 Systolic blood pressure 144 mm[Hg] Sonali Love SWITCHMAN SUPERVISOR.RADIOLOGY EQUIPMENT SERVICER Work Phone: [facility] 02-08-2025 10:28-0400 Body mass index (BMI) [Ratio] 27.04 kg/m2 Lab/Port Wstr Work Phone: [facility] 02-08-2025 10:28-0400 Body weight 73.71 kg Lab/Port Wstr Work Phone: [facility] Comment on above: pt weighed this AM 02-01-2025 10:00-0400 Body temperature 97.39 [degF] Treatment Wstr Work Phone: [facility] 02-01-2025 10:00-0400 Diastolic blood pressure 70 mm[Hg] Treatment Wstr Work Phone: [facility] 02-01-2025 10:00-0400 Heart rate 75 /min Treatment Wstr Work Phone: [facility] 02-01-2025 10:00-0400 SaO2% (BldA) [Mass fraction] 100 % Treatment Wstr Work Phone: [facility] 02-01-2025 10:00-0400 Systolic blood pressure 120 mm[Hg] Treatment Wstr Work Phone: [facility] 02-01-2025 09:51-0400 Body mass index (BMI) [Ratio] 27.62 kg/m2 Treatment Wstr Work Phone: [facility] 02-01-2025 09:51-0400 Body weight 75.3 kg Treatment Wstr Work Phone: [facility] 01-25-2025 11:25-0400 Diastolic blood pressure 74 mm[Hg] Treatment Wstr Work Phone: [facility] 01-25-2025 11:25-0400 Heart rate 76 /min Treatment Wstr Work Phone: [facility] 01-25-2025 11:25-0400 Respiratory rate 14 /min Treatment Wstr Work Phone: [facility] 01-25-2025 11:25-0400 SaO2% (BldA) [Mass fraction] 96 % Treatment Wstr Work Phone: [facility] 01-25-2025 11:25-0400 Systolic blood pressure 121 mm[Hg] Treatment Wstr Work Phone: [facility] 01-25-2025 08:35-0400 Body mass index (BMI) [Ratio] 27.29 kg/m2 Treatment Wstr Work Phone: [facility] 01-25-2025 08:35-0400 Body weight 74.39 kg Treatment Wstr Work Phone: [facility] 01-25-2025 08:00-0400 Body temperature 97.39 [degF] Treatment Wstr Work Phone: [facility] 01-18-2025 08:00-0400 Body temperature 97.2 [degF] Treatment Wstr Work Phone: [facility] 01-18-2025 08:00-0400 Diastolic blood pressure 80 mm[Hg] Treatment Wstr Work Phone: [facility] 01-18-2025 08:00-0400 Heart rate 64 /min Treatment Wstr Work Phone: [facility] 01-18-2025 08:00-0400 Systolic blood pressure 123 mm[Hg] Treatment Wstr Work Phone: [facility] 01-18-2025 07:00-0400 Body mass index (BMI) [Ratio] 27.54 kg/m2 Treatment Wstr Work Phone: [facility] 01-18-2025 07:00-0400 Body weight 75.07 kg Treatment Wstr Work Phone: [facility] 01-06-2025 11:37-0400 Body height 165.1 cm Kimmie Lasha DO Work Phone: [facility] 01-06-2025 11:37-0400 Body mass index (BMI) [Ratio] 27.26 kg/m2 Kimmie Lasha DO Work Phone: [facility] 01-06-2025 11:37-0400 Body weight 74.3 kg Kimmie Lasha DO Work Phone: [facility] 01-04-2025 13:49-0400 Body height 165.8 cm Orville Martinez DO Work Phone: [facility] 01-04-2025 13:49-0400 Body mass index (BMI) [Ratio] 27.74 kg/m2 Orville Trani DO Work Phone: [facility] 01-04-2025 13:49-0400 Body temperature 97.81 [degF] Orville Trani DO Work Phone: [facility] 01-04-2025 13:49-0400 Body weight 76.2 kg Orville Trani DO Work Phone: [facility] 01-04-2025 13:49-0400 Diastolic blood pressure 71 mm[Hg] Orville Trani DO Work Phone: [facility] 01-04-2025 13:49-0400 Heart rate 87 /min Orville Trani DO Work Phone: [facility] 01-04-2025 13:49-0400 SaO2% (BldA) [Mass fraction] 97 % Orville Trani DO Work Phone: [facility] 01-04-2025 13:49-0400 Systolic blood pressure 141 mm[Hg] Orville Trani DO Work Phone: [facility] 12-13-2024 09:30-0400 Body mass index (BMI) [Ratio] 27.96 kg/m2 Sara Avalos MD Work Phone: [facility] 12-13-2024 09:30-0400 Body temperature 97.2 [degF] Sara Avalos MD Work Phone: [facility] 12-13-2024 09:30-0400 Body weight 76.2 kg Sara Avalos MD Work Phone: [facility] 12-13-2024 09:30-0400 Diastolic blood pressure 83 mm[Hg] Sara Avalos MD Work Phone: [facility] 12-13-2024 09:30-0400 Heart rate 86 /min Sara Avalos MD Work Phone: [facility] 12-13-2024 09:30-0400 Respiratory rate 14 /min Sara Avalos MD Work Phone: [facility] 12-13-2024 09:30-0400 SaO2% (BldA) [Mass fraction] 97 % Sara Avalos MD Work Phone: [facility] 12-13-2024 09:30-0400 Systolic blood pressure 140 mm[Hg] Sara Avalos MD Work Phone: [facility] 12-08-2024 10:38-0400 Diastolic blood pressure 75 mm[Hg] Lidia Finelli DO Work Phone: [facility] 12-08-2024 10:38-0400 Systolic blood pressure 147 mm[Hg] Lidia Finelli DO Work Phone: [facility] 12-01-2024 12:45-0400 Body height 165.1 cm Lidia Finelli DO Work Phone: [facility] 12-01-2024 12:45-0400 Body mass index (BMI) [Ratio] 27.42 kg/m2 Lidia Finelli DO Work Phone: [facility] 12-01-2024 12:45-0400 Body temperature 98.01 [degF] Lidia Finelli DO Work Phone: [facility] 12-01-2024 12:45-0400 Body weight 74.75 kg Lidia Finelli DO Work Phone: [facility] 12-01-2024 12:45-0400 Diastolic blood pressure 82 mm[Hg] Lidia Finelli DO Work Phone: [facility] 12-01-2024 12:45-0400 SaO2% (BldA) [Mass fraction] 99 % Lidia Finelli DO Work Phone: [facility] 12-01-2024 12:45-0400 Systolic blood pressure 110 mm[Hg] Lidia Finelli DO Work Phone: [facility] Encounters Encounter Date Encounter Type Care Provider Facility Start: 04-14-2025 End: 04-14-2025 Emergency department patient visit Babita LATHAM Work Phone: -Emergency Department Work Phone: Start: 04-08-2025 End: 04-08-2025 ambulatory Injection [facility] Work Phone: Hematology/Oncology Comment on above: Breast cancer, stage 2, left (HCC) (Primary Dx); Malignant neoplasm of upper-inner quadrant of left breast in female, estrogen receptor negative (HCC) Start: 04-07-2025 End: 04-07-2025 ambulatory Injection [facility] Work Phone: Hematology/Oncology Comment on above: Breast cancer, stage 2, left (HCC) (Primary Dx); Malignant neoplasm of upper-inner quadrant of left breast in female, estrogen receptor negative (HCC) Start: 04-06-2025 End: 04-06-2025 ambulatory Treatment Rm 11 [facility] Work Phone: Hematology/Oncology Comment on above: 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, estrogen receptor negative (HCC) (Primary Dx); Breast cancer, stage 2, left (HCC); Lung nodules Start: 04-04-2025 End: 04-04-2025 ambulatory Orville Trae Michelle DO Work Phone: Hematology/Oncology Comment on above: Side effects Start: 04-01-2025 End: 04-01-2025 ambulatory Injection [facility] Work Phone: Hematology/Oncology Comment on above: Breast cancer, stage 2, left (HCC) (Primary Dx); Malignant neoplasm of upper-inner quadrant of left breast in female, estrogen receptor negative (HCC) Start: 03-31-2025 End: 03-31-2025 ambulatory Lab/Port [facility] Work Phone: Hematology/Oncology Comment on above: Breast cancer, stage 2, left (HCC) (Primary Dx); Malignant neoplasm of upper-inner quadrant of left breast in female, estrogen receptor negative (HCC) Start: 03-30-2025 End: 03-30-2025 ambulatory Treatment Rm 11 [facility] Work Phone: Hematology/Oncology Comment on above: Breast cancer, stage 2, left (HCC) (Primary Dx); Malignant neoplasm of upper-inner quadrant of left breast in female, estrogen receptor negative (HCC); Lung nodules; Malaise and fatigue; Acquired hypothyroidism; Hypoadrenalism (HCC) Start: 03-25-2025 End: 03-25-2025 ambulatory Injection [facility] Work Phone: Hematology/Oncology Comment on above: Breast cancer, stage 2, left (HCC) (Primary Dx); Malignant neoplasm of upper-inner quadrant of left breast in female, estrogen receptor negative (HCC) Start: 03-25-2025 End: 03-25-2025 Patient encounter procedure Emilie Lennon MD Work Phone: OB/Gynecology Comment on above: Post-operative state (Primary Dx) Start: 03-25-2025 End: 03-25-2025 ambulatory ORVILLE Trae MARTINEZ Facility:[facility] Start: 03-24-2025 End: 03-24-2025 ambulatory Lab/Port [facility] Work Phone: Hematology/Oncology Comment on above: Breast cancer, stage 2, left (HCC) (Primary Dx); Malignant neoplasm of upper-inner quadrant of left breast in female, estrogen receptor negative (HCC) Start: 03-23-2025 End: 03-23-2025 ambulatory Treatment Rm 3 [facility] Work Phone: Hematology/Oncology Comment on above: 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, estrogen receptor negative (HCC) (Primary Dx); Breast cancer, stage 2, left (HCC); Lung nodules Start: 03-22-2025 End: 03-22-2025 Patient encounter procedure Sonali Love APRN.CNP Work Phone: Hematology/Oncology Start: 03-22-2025 End: 03-22-2025 ambulatory Lab/Port [facility] Work Phone: Hematology/Oncology Comment on above: Breast cancer, stage 2, left (HCC); Malignant neoplasm of upper-inner quadrant of left breast in female, estrogen receptor negative (HCC); Lung nodules 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, estrogen receptor negative (HCC) (Primary Dx) Start: 03-18-2025 End: 03-18-2025 Emergency department patient visit Babita Morataya CASH POSTING CLERK-C Work Phone: -Emergency Department Work Phone: Start: 03-18-2025 End: 03-18-2025 Admission to same day surgery center Dr. Emilie Lennon DO -Surgical Day Care Start: 03-18-2025 End: 03-22-2025 ambulatory Babita Morataya CASH POSTING CLERK-C Work Phone: -Surgical Day Care Comment on above: 03/22 Possible UTI Start: 03-17-2025 End: 03-17-2025 ambulatory BABITA MORATAYA Facility:[facility] Start: 03-16-2025 End: 03-16-2025 ambulatory BABITA MORATAYA Facility:[facility] Start: 03-14-2025 End: 03-14-2025 Office outpatient visit [...] Jennifer Burk RN Hematology/Oncology Comment on above: Gas Inspector - O ther (Question ) Start: 03-10-2025 End: 03-10-2025 ambulatory Orville Martinez DO Work Phone: Hematology/Oncology Comment on above: Lumps in neck Start: 03-09-2025 End: 03-09-2025 ambulatory Treatment Rm 10 [facility] Work Phone: Hematology/Oncology Comment on above: [...] examination done Emilie Lennon MD Work Phone: [facility] Start: 03-07-2025 End: 03-07-2025 ambulatory EMILIE LENNON Facility:[facility] Start: 03-05-2025 End: 03-14-2025 ambulatory Orville Martinez DO Work Phone: Hematology/Oncology Comment on above: Prednisone Start: 03-02-2025 End: 03-02-2025 ambulatory Treatment 1 [facility] Work Phone: Hematology/Oncology Comment on [...] Hematology/Oncology Start: 03-01-2025 End: 03-04-2025 ambulatory Lab/Port [facility] Work Phone: Hematology/Oncology Comment on [...] End: 02-23-2025 ambulatory Treatment Rm 12 [facility] Work Phone: Hematology/Oncology Comment on above: [...] Start: 02-22-2025 End: 02-22-2025 ambulatory EMILIE LENNON Facility:[facility] Start: 02-18-2025 End: 02-21-2025 ambulatory Orville Martinez DO Work Phone: Hematology/Oncology Comment on above: Plantar fasciitis Start: 02-18-2025 End: 02-18-2025 Telephone encounter Ying Awan MD Work Phone: OB/Gynecology Comment on above: Appointment Start: 02-16-2025 End: 02-16-2025 ambulatory Treatment Rm 6 [facility] Work Phone: Hematology/Oncology Comment on above: 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, estrogen receptor negative (HCC) (Primary Dx); Breast cancer, stage 2, left (HCC); Lung nodules Start: 02-09-2025 End: 02-09-2025 ambulatory Treatment Rm 1 [facility] Work Phone: Hematology/Oncology Comment on above: 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, estrogen receptor negative (HCC) (Primary Dx) Start: 02-08-2025 End: 02-08-2025 Subsequent hospital visit by physician [facility] Sanon Work Phone: Radiology Comment on above: 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, estrogen receptor negative (HCC) [C50.212, Z17.1] Start: 02-08-2025 End: 02-08-2025 Patient encounter procedure Sonali Love APRN.RADIOLOGY EQUIPMENT SERVICER Work Phone: Hematology/Oncology Start: 02-08-2025 End: 02-08-2025 ambulatory Lab/Port [facility] Work Phone: Hematology/Oncology Comment on above: [...] End: 02-01-2025 ambulatory Treatment Rm 10 [facility] Work Phone: Hematology/Oncology Comment on above: 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, estrogen receptor negative (HCC) (Primary Dx); Breast cancer, stage 2, left (HCC); Lung nodules Start: 01-26-2025 End: 02-03-2025 Telephone encounter Orville Martinez DO Work Phone: Hematology/Oncology Comment on above: Patient Question Start: 01-25-2025 End: 01-25-2025 ambulatory Treatment Rm 3 [facility] Work Phone: Hematology/Oncology Comment on above: [...] Jennifer Burk RN Hematology/Oncology Comment on above: Gas Inspector - O ther (C1D1 Post Treatment Call (Carbo/taxol/keytruda) ) Start: 01-18-2025 End: 01-18-2025 ambulatory Treatment Rm 1 [facility] Work Phone: Hematology/Oncology Comment on above: Triple negative [address] cancer (HCC) (Primary Dx); Breast cancer, stage 2, left (HCC); Malignant neoplasm of upper-inner quadrant of left breast in female, estrogen receptor negative (HCC); Lung nodules; Malaise and fatigue; Acquired hypothyroidism; Hypoadrenalism (HCC) Start: 01-17-2025 End: 03-19-2025 Follow-up encounter Sav Gupta MS Work Phone: [facility] Start: 01-17-2025 End: 01-18-2025 Telephone encounter Orville Martinez DO Work Phone: Hematology/Oncology Comment on above: Results Start: 01-14-2025 End: 01-14-2025 Telephone encounter Jennifer Burk RN Hematology/Oncology Comment on above: Gas Inspector - O ther (Antiemetic ) Start: 01-14-2025 End: 01-14-2025 [facility] Work Phone: H[facility]ology/Oncology Comment on above: Encounter for educat ion (Primary Dx) Start: 01-14-2025 End: 01-14-2025 ambulatory ORVILLE MARTINEZ Facility:[facility] Start: 01-14-2025 End: 01-14-2025 Subsequent hospital visit by physician [facility] Work Phone: Radiology Comment on above: Increased endometria l stripe thickness [R93.89] Start: 01-13-2025 End: 01-14-2025 Telephone encounter Orville Martinez DO Work Phone: Hematology/Oncology Comment on above: cooling cap Start: 01-10-2025 End: 01-10-2025 [facility] Start: 01-07-2025 [facility] Start: 01-07-2025 End: 01-07-2025 Subsequent hospital visit by physician Procedure Mammo [facility] Start: 01-06-2025 End: 01-06-2025 ambulatory BABITA [facility] Facility:[facility] Start: 01-06-2025 End: 01-06-2025 Patient encounter procedure Kimmie Colby DO Work Phone: [facility] Comment on above: 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, estrogen receptor negative (HCC) (Primary Dx); 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); Enlarged lymph node Start: 01-06-2025 End: 01-06-2025 [facility] Start: 01-06-2025 ambulatory BABITA [facility] Facility :[facility] Start: 01-06-2025 End: 01-06-2025 Subsequent hospital visit by physician [employer] [facility] (I-Stat/1.5t) Work Phone: Radiology Comment on above: Lesion of liver grea ter than 1 cm in diameter [K76.9] Start: 01-05-2025 End: 01-05-2025 Telephone encounter Jennifer Burk RN Hematology/Oncology Comment on above: Gas Inspector - O ther (Chemo Education appointment ) Appointment 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, estrogen receptor negative (HCC) (Primary Dx) Patient Update Start: 01-05-2025 End: 01-06-2025 ambulatory Orville Martinez DO Work Phone: Hematology/Oncology Comment on above: Office report to Michelle carrasquillo Ceres Start: 01-04-2025 End: 01-04-2025 Patient encounter procedure [...] End: 01-04-2025 Subsequent hospital visit by physician Jose [facility] (1.5t) Radiology Comment on above: 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, estrogen receptor negative (HCC) [C50.212, Z17.1] Start: 12-27-2024 End: 12-27-2024 Telephone encounter Yesi Funez LPN Work Phone: [facility] Comment on above: Gas Inspector - O ther Start: 12-21-2024 End: 12-21-2024 [...] Room Emergency CT Scan Start: 12-14-2024 ambulatory LIDIA Mcelroy ity:[facility] Start: 12-14-2024 End: 12-14-2024 Subsequent hospital visit by physician Darvin [facility] ([facility]) Work Phone: CT Scan Comment [...] (Primary Dx) Start: 12-13-2024 End: 12-13-2024 ambulatory [facility] Facility:[facility] Start: 12-08-2024 End: 12-09-2024 Admission to [...] Start: 12-08-2024 End: 12-08-2024 ambulatory UNKNOWN PROVIDER Facility:[facility] Start: 12-08-2024 End: 12-08-2024 ambulatory [facility] Facility:[facility] Start: 12-08-2024 End: 12-08-2024 Office outpatient visit 40 minutes Lidia Hirsch DO Work Phone: General Surgery Comment on above: Breast cancer, stage 2, left (HCC) (Primary Dx); Malignant neoplasm of upper-inner quadrant of left breast in female, estrogen receptor negative (HCC); Infiltrating ductal carcinoma of left breast (HCC); Diarrhea, unspecified type Start: 12-01-2024 ambulatory LIDIA Mcelroy ity:[facility] Start: 12-01-2024 End: 12-01-2024 ambulatory [facility] Facility:[facility] Start: 12-01-2024 End: 12-01-2024 Office outpatient new 60 minutes Lidia Hirsch DO Work Phone: General Surgery Comment on above: Mass of upper inner quadrant of left breast (Primary Dx) Start: 11-26-2024 End: 11-26-2024 ambulatory BABITA MORATAYA SWITCHMAN SUPERVISOR-RADIOLOGY EQUIPMENT SERVICER Facility:[facility] Start: 11-10-2024 End: 11-10-2024 ambulatory BABITA RAFIA SWITCHMAN SUPERVISOR-RADIOLOGY EQUIPMENT SERVICER Facility:[facility] Start: 10-18-2024 ambulatory BABITA RAFIA SWITCHMAN SUPERVISOR-RADIOLOGY EQUIPMENT SERVICER Facility:[facility] Start: 10-18-2024 End: 10-18-2024 ambulatory BABITA RAFIA SWITCHMAN SUPERVISOR-RADIOLOGY EQUIPMENT SERVICER Facility:[facility] Start: 07-23-2024 ambulatory BABITA RAFIA SWITCHMAN SUPERVISOR-RADIOLOGY EQUIPMENT SERVICER Facility:[facility] Start: 06-28-2024 ambulatory Babita Morataya CASH POSTING CLERK Facil ity:[facility] Start: 06-25-2024 End: 06-25-2024 ambulatory Babita Morataya CASH POSTING CLERK Facility:[facility] Start: 06-18-2024 End: 06-22-[address] SUKHI PIZANO MD Facility:[facility] Start: 06-18-2024 End: 06-22-[address] SUKHI PIZANO MD [facility] Start: 05-28-2024 End: 05-28-[address] SUKHI PIZANO MD Facility:[facility] Start: 05-28-2024 End: 05-28-[address] SUKHI PIZANO MD [facility] Start: 05-28-2024 End: 05-28-[address] SUKHI PIZANO MD Facility:[facility] Start: 05-28-2024 End: 05-28-2024 Patient encounter procedure BABITA MORATAYA SWITCHMAN SUPERVISOR-RADIOLOGY EQUIPMENT SERVICER [facility] Start: 05-27-2024 End: 05-27-2024 ambulatory BABITA MORATAYA SWITCHMAN SUPERVISOR-RADIOLOGY EQUIPMENT SERVICER Facility:[facility] Start: 05-27-2024 End: 05-27-2024 Patient encounter procedure BABITA MORATAYA SWITCHMAN SUPERVISOR-RADIOLOGY EQUIPMENT SERVICER [facility] Start: 11-05-2023 End: 11-06-2023 ambulatory BABITA MORATAYA SWITCHMAN SUPERVISOR-RADIOLOGY EQUIPMENT SERVICER Facility:[facility] Start: 11-05-2023 End: 11-05-2023 Patient encounter procedure BABITA MORATAYA SWITCHMAN SUPERVISOR-RADIOLOGY EQUIPMENT SERVICER [facility] Start: 06-09-2023 End: 06-10-2023 ambulatory BABITA MORATAYA SWITCHMAN SUPERVISOR-RADIOLOGY EQUIPMENT SERVICER Facility:[facility] Start: 06-09-2023 End: 06-09-[address] TIMUR MINA [facility] Start: 12-02-2022 End: 12-03-2022 ambulatory BABITADEBORAH MORATAYA SWITCHMAN SUPERVISOR-RADIOLOGY EQUIPMENT SERVICER Facility:[facility] Start: 12-02-2022 End: 12-02-2022 Patient encounter procedure BABITA MORATAYA SWITCHMAN SUPERVISOR-RADIOLOGY EQUIPMENT SERVICER [facility] Start: 11-06-2022 End: 11-07-2022 ambulatory BABITA MORATAYA SWITCHMAN SUPERVISOR-RADIOLOGY EQUIPMENT SERVICER Facility:[facility] Start: 11-06-2022 End: 11-06-2022 Patient encounter procedure BABITA MORATAYA SWITCHMAN SUPERVISOR-RADIOLOGY EQUIPMENT SERVICER [facility] Start: 10-10-2022 End: 10-10-2022 Patient encounter procedure BABITA MORATAYA SWITCHMAN SUPERVISOR-RADIOLOGY EQUIPMENT SERVICER [facility] Start: 02-14-1984 Evaluation and management of inpatient Babita Morataya CASH POSTING CLERK-C Work Phone: - Procedures Date Procedure Procedure Detail Performing Clinician Start: 04-06-2025 End: 04-06-2025 Blood count complete auto&auto difrntl wbc Orville Martinez DO Work Phone: Start: 03-30-2025 Blood count complete auto&auto difrntl wbc Orville A Masci DO Work Phone: Start: 03-23-2025 Blood count complete auto&auto difrntl wbc Orville A Masci DO Work Phone: Start: 03-22-2025 Blood count complete auto&auto difrntl wbc Orville A Masci DO Work Phone: Start: 03-18-2025 Urnls dip stick/tabl et reagent auto microscopy Babita Morataya CASH POSTING CLERK-C Work Phone: Start: 03-18-2025 Urine culture Babita westbrook CASH POSTING CLERK-C Work Phone: Start: 03-18-2025 Hysteroscopy Babita scott CASH POSTING CLERK-C Work Phone: Start: 03-09-2025 Blood count complete auto&auto difrntl wbc Emilie Lennon MD Work Phone: Start: 03-01-2025 Blood count complete auto&auto difrntl wbc Orville A Masci DO Work Phone: Start: 02-23-2025 Blood count complete auto&auto difrntl wbc Orville A Masci DO Work Phone: Start: 02-16-2025 Blood count complete auto&auto difrntl wbc Orville A Masci DO Work Phone: Start: 02-08-2025 Radiologic exam ches t 2 views [place] SWITCHMAN SUPERVISOR.RADIOLOGY EQUIPMENT SERVICER Work Phone: Start: 02-08-2025 Blood count complete auto&auto difrntl wbc Orville A Masci DO Work Phone: Start: 02-01-2025 Blood count complete auto&auto difrntl wbc Orville A Masci DO Work Phone: Start: 01-25-2025 End: 01-25-2025 Basic metabolic panel calcium total Orville A Masci DO Work Phone: Start: 01-18-2025 Blood count complete auto&auto difrntl wbc Orville A Masci DO Work Phone: Start: 01-07-2025 Us lmtd joint/oth no nvasc xtr strux r-t w/img Kimmie Colby DO Work Phone: Start: 12-01-2024 BREAST BIOPSY LEF T (POC) SURG USE ONLY Lidia C Finelli DO Work Phone: Start: 12-01-2024 BREAST MARKERS Lidia C Finelli DO Work Phone: Start: 12-01-2024 Level iv surg pathol ogy gross&microscopic exam Lidia C Finelli DO Work Phone: Cataract (disorder) BABITA MORATAYA SWITCHMAN SUPERVISOR-RADIOLOGY EQUIPMENT SERVICER Retinal detachment (disorder) BABITA MORATAYA SWITCHMAN SUPERVISOR-RADIOLOGY EQUIPMENT SERVICER Plan of Treatment Date Care Activity Detail Author Start: 2029 RSV Vaccine (1 - 1-d ose 75+ series) RSV Vaccine (1 - 1-dose 75+ series) [facility] Start: 04-06-2028 Diabetes Screening Diabetes Screenin [facility] Start: 03-30-2028 Diabetes Screening Diabetes Screenin g [facility] Start: 03-22-2028 Diabetes Screening Diabetes Screenin g [facility] Start: 03-16-2028 Diabetes Screening Diabetes Screenin g [facility] Start: 03-09-2028 Diabetes Screening Diabetes Screenin g [facility] Start: 03-01-2028 Diabetes Screening Diabetes Screenin g [facility] Start: 02-24-2028 Diabetes Screening Diabetes Screenin g [facility] Start: 02-17-2028 Diabetes Screening Diabetes Screenin g [facility] Start: 02-09-2028 Diabetes Screening Diabetes Screenin g [facility] Start: 02-02-2028 Diabetes Screening Diabetes Screenin g [facility] Start: 01-26-2028 Diabetes Screening Diabetes Screenin g [facility] Start: 01-19-2028 Diabetes Screening Diabetes Screenin g [facility] Start: 12-09-2027 Diabetes Screening Diabetes Screenin g [facility] Start: 10-21-2025 Screening for malign ant neoplasm of colon [facility] Start: 06-08-2025 End: 06-08-2025 ambulatory 06/08/2025 9:30 AM EDT Infusion Center Hematology/Oncology [address] [place] [address] Q3WK TONA/CYTOXAN/KEYTRUDA/N EULASTA/3-4/LAB&OV 06/07* Hematology/Oncology Comment on above: Q3WK TONA/CYTOXAN/K EYTRUDA/NEULASTA/3-4/LAB&OV 06/07* Start: 06-07-2025 End: 06-07-2025 ambulatory Hematology/Oncology Comment on above: (SO)CBC/CMP(S)/MG(S) /Q6WK TSH/T4/CORTISOL(PORT)/OV TODAY* OV(PORT)LAB EARLY/CH EMO 06/08* MASCI Start: 05-25-2025 End: 05-25-2025 ambulatory 05/25/2025 10:00 AM EDT Infusion Center Hematology/Oncology [address] [place] [address] Q3WK TONA/CYTOXAN/KEYTRUDA/N EULASTA/3-4/LAB&OV 05/24* Hematology/Oncology Comment on above: Q3WK TONA/CYTOXAN/K EYTRUDA/NEULASTA/3-4/LAB&OV 05/24* Start: 05-24-2025 End: 05-24-2025 ambulatory Hematology/Oncology Comment on above: (SO)CBC/CMP(S)/MG(S) (PORT)* TSH/T4/CORTISOL EVERY OTHER CYCLE OV(PORT)LAB EARLY/CH EMO 05/25* MASCI (SO)CBC/CMP(S)/MG(S) /Q6WK TSH/T4/CORTISOL(PORT)/OV TODAY* Start: 05-18-2025 End: 05-18-2025 ambulatory 05/18/2025 10:30 AM EDT Infusion Center Hematology/Oncology [address] [place] [address] Q3WK TONA/CYTOXAN/KEYTRUDA/N EULASTA/2-4/LAB&OV 05/17* Hematology/Oncology Comment on above: Q3WK TONA/CYTOXAN/K EYTRUDA/NEULASTA/2-4/LAB&OV 05/17* Start: 05-17-2025 End: 05-17-2025 ambulatory Hematology/Oncology Comment on above: (SO)CBC/CMP(S)/MG(S) /Q6WK TSH/T4/CORTISOL(PORT)/OV TODAY* OV(PORT)LAB EARLY/CH EMO 05/18* MASCI Start: 05-04-2025 End: 05-04-2025 ambulatory 05/04/2025 10:00 AM T Infusion Center Hematology/Oncology [address] [place] [address] PT UNAVAILABLE 04/18, Hematology/Oncology Comment on above: PT UNAVAILABLE 04/18, Start: 05-03-2025 End: 05-03-2025 ambulatory Hematology/Oncology Comment on above: (SO)CBC/CMP(S)/MG(S) (PORT)* TSH/T4/CORTISOL EVERY OTHER CYCLE OV(PORT)LAB EARLY/CH EMO 05/04* MASCI (SO)CBC/CMP(S)/MG(S) (PORT)/OV TODAY* Start: 04-28-2025 End: 04-28-2025 ambulatory 04/28/2025 8:00 AM T Infusion Center Hematology/Oncology [address] [place] [address] PT UNAVAILABLE 04/18-04/21, Hematology/Oncology Comment on above: PT UNAVAILABLE , Start: 04-26-2025 End: 04-26-2025 ambulatory Hematology/Oncology Comment on above: (SO)CBC/CMP(S)/MG(S) /Q6WK TSH/T4/CORTISOL(PORT)/OV TODAY* OV(PORT)LAB EARLY/CH EMO 04/28* MASCI Start: 04-14-2025 [facility] Start: 04-14-2025 Chemotherapy care management [facility] Start: 04-14-2025 End: 04-14-2025 ambulatory Hematology/Oncology Comment on above: PT UNAVAILABLE 04/18, PT UNAVAILABLE , Start: 04-13-2025 End: 04-13-2025 ambulatory Hematology/Oncology Comment on above: (SO)CBC/CMP(S)/MG(S) (PORT)* TSH/T4/CORTISOL EVERY OTHER CYCLE OV(PORT)LAB EARLY/CH EMO 04/14* MASCI (SO)CBC/CMP(S)/MG(S) /Q6WK TSH/T4/CORTISOL(PORT)/OV TODAY* Start: 04-11-2025 Influenza vaccination [facility] Start: 04-08-2025 End: 04-08-2025 ambulatory 04/08/2025 9:45 AM EDT Infusion Center Hematology/Oncology [address] [place] [address] Wstr, Injection [facility] [address] [place] [address] D3 NEUPOGEN* Hematology/Oncology Comment on above: D3 NEUPOGEN* Start: 04-07-2025 End: 04-07-2025 ambulatory 04/07/2025 8:45 AM EDT Infusion Center Hematology/Oncology [address] [place] [address] Wstr, Injection [facility] [address] [place] [address] D2 NEUPOGEN* Hematology/Oncology Comment on above: D2 NEUPOGEN* Start: 04-06-2025 End: 04-06-2025 ambulatory Hematology/Oncology Comment on above: (SO)CBC/CMP(S)(PORT) D15 CARBO/TAXOL* (SO)CBC/CMP(S)(PORT) D15 CARBO/TAXOL* . Available and PT UNAVAILABLE , Start: 04-01-2025 End: 04-01-2025 ambulatory 04/01/2025 9:45 AM EDT Infusion Center Hematology/Oncology [address] [place] [address] Wstr, Injection [facility] [address] [place] [address] D3 NEUPOGEN* Hematology/Oncology Comment on above: D3 NEUPOGEN* Start: 03-31-2025 End: 03-31-2025 ambulatory 03/31/2025 9:15 AM EDT Infusion Center Hematology/Oncology [address] [place] [address] Wstr, Lab/Port [facility] [address] [place] [address] D2 NEUPOGEN* LAB PORT SCHED PER TRIAGE Hematology/Oncology Comment on above: D2 NEUPOGEN* LAB POR T SCHED PER TRIAGE Start: 03-30-2025 End: 03-30-2025 ambulatory Hematology/Oncology Comment on above: (SO)CBC/CMP(S)(PORT) D8 CARBO/TAXOL* DELAYED FROM 03/23 Start: 03-25-2025 End: 03-25-2025 ambulatory 03/25/2025 2:45 PM EDT Infusion Center Hematology/Oncology [address] [place] [address] Wstr, Injection [facility] [address] [place] [address] D3 NEUPOGEN* Hematology/Oncology Comment on above: D3 NEUPOGEN* Start: 03-25-2025 End: 03-25-2025 Patient encounter procedure 03/25/2025 10:50 AM EDT Office Visit OB/Gynecology [address] [place] [address] Emilie Lennon MD [address] [place] [address] 1 week post-op OB/Gynecology Comment on above: 1 week post-op Start: 03-24-2025 End: 03-24-2025 ambulatory 03/24/2025 10:45 AM EDT Infusion Center Hematology/Oncology [address] [place] [address] Wstr, Lab/Port [facility] [address] [place] [address] PSS-PLEASE CONFIRM PATIENT IS UNAVAILABLE FOR , BEFORE FURTHER SCHEDULING Hematology/Oncology Comment on above: PSS-PLEASE CONFIRM P ATIENT IS UNAVAILABLE FOR 04/18-04/21, 05/13 BEFORE FURTHER SCHEDULING Start: 03-23-2025 End: 03-23-2025 ambulatory Hematology/Oncology Comment on above: Q3WK CARBO/TAXOL/HERNANDEZ TRUDA/C4-4/LAB&OV 03/22* THEN KEYTRUDA/ONPRO ONLY Q3WK CARBO/TAXOL/HERNANDEZ TRUDA/C4-4/LAB&OV 03/22* Repeat CBC(PORT)Q3WK CARBO/TAXOL/KEYTRUDA/C4-4/LAB&OV 03/22* Start: 03-22-2025 End: 03-22-2025 ambulatory Hematology/Oncology Comment on above: (SO)CBC/CMP(S)/MG(S) (PORT)* TSH/T4/CORTISOL EVERY OTHER CYCLE OV(PORT)LAB EARLY/CH EMO 03/23* MASCI (SO)CBC/CMP(S)/MG(S) (PORT)/OV TODAY* Start: 03-18-2025 [facility] Start: 03-18-2025 [facility] Start: 03-18-2025 Anes hysteroscopy&/hysterosalp ingography w/bx ANESTH HYSTEROSCOPE/GRAPH [facility] Start: 03-18-2025 Bacteria identified in Urine by Culture Urine Culture [facility] Start: 03-18-2025 Hysteroscopy bx endometrium&/polypc w/wo d&c HYSTEROSCOPY BIOPSY [facility] Start: 03-18-2025 Ambulation without limitation [facility] Start: 03-18-2025 Medical regimen orde rs management [facility] Start: 03-18-2025 Medication education [facility] Start: 03-18-2025 Patient discharge [facility] Start: 03-18-2025 Procedure discontinued [facility] Start: 03-18-2025 Taking patient vital signs [facility] Start: 03-18-2025 Vital signs measurements [facility] Start: 03-18-2025 [facility] Start: 03-18-2025 End: 03-18-2025 Admission to same day surgery center 03/18/2025 7:45 AM EDT Infusion Center Hematology/Oncology [address] [place] [address] Wstr, Lab/Port [facility] [address] [place] [address] CBC(PORT)for surgery today with * Hematology/Oncology Comment on above: CBC(PORT)for surgery today with * Start: 03-16-2025 End: 03-16-2025 ambulatory Hematology/Oncology Comment on above: CBC/CMP(PORT)D15 CAR QUENTIN/TAXOL* (SO)CBC/CMP(S)(PORT) D15 CARBO/TAXOL* Start: 03-16-2025 End: 03-16-2025 ambulatory 03/16/2025 8:30 AM EDT Infusion Center Hematology/Oncology [address] [place] [address] (SO)CBC/CMP(S)(PORT)D15 CARBO/TAXOL* Hematology/Oncology Comment on above: (SO)CBC/CMP(S)(PORT) D15 CARBO/TAXOL* Start: 03-14-2025 End: 03-14-2025 ambulatory 03/14/2025 10:00 AM EDT Infusion Center Hematology/Oncology [address] [place] [address] (SO)CBC/CMP(S)(PORT)D15 CARBO/TAXOL* Hematology/Oncology Comment on above: (SO)CBC/CMP(S)(PORT) D15 CARBO/TAXOL* Start: 03-09-2025 End: 03-09-2025 ambulatory Hematology/Oncology Comment on above: CBC/CMP(PORT)D8 CARB O/TAXOL* (SO)CBC/CMP(S)(PORT) D8 CARBO/TAXOL* Start: 03-07-2025 End: 06-06-2025 CBC W Auto Differential panel - Blood COMPLETE BLOOD COUNT AND DIFFERENTIAL Lab Routine Chemotherapy-induced neutropenia Expected: 03/07/2025, Expires: 06/06/2025 [facility] Work Phone: Comment on above: Expected: 03/07/2025 , Expires: 06/06/2025 Start: 03-07-2025 End: 03-07-2025 Patient encounter procedure 03/07/2025 8:45 AM EDT Office Visit OB/Gynecology [address] [place] [address] Emilie Lennon MD [address] [place] [address] surgery 03/18 OB/Gynecology Comment on above: surgery 03/18 Start: 03-04-2025 End: 03-04-2025 Patient encounter procedure 03/04/2025 10:30 AM EDT Office Visit OB/Gynecology [address] [place], [place] [address] Suze Padilla APRN.RADIOLOGY EQUIPMENT SERVICER [address] [place] [address] Dx: Endometrial polyp [N84.0] OB/Gynecology Comment on above: Dx: Endometrial poly p [N84.0] Start: 03-02-2025 End: 03-02-2025 ambulatory Hematology/Oncology Comment on above: Q3WK CARBO/TAXOL/HERNANDEZ TRUDA/C3-4/LAB&OV 03/01* THEN KEYTRUDA/ONPRO ONLY Q3WK CARBO/TAXOL/HERANNDEZ TRUDA/C3-4/LAB&OV 03/01* HOLD KEYTRUDA DUE TO RASH -PER 03/01 AVS Start: 03-01-2025 End: 03-01-2025 ambulatory Hematology/Oncology Comment on above: CBC/CMP/MAG/TSH/T4/C ORTISOL(PORT)* TSH/T4/CORTISOL EVERY OTHER CYCLE OV(PORT)LAB EARLY/CH EMO 03/02* (SO)CBC/CMP(S)/MG(S) /TSH/T4/CORTISOL(PORT)* TSH/T4/CORTISOL EVERY OTHER CYCLE Start: 02-27-2025 [facility] Start: 02-24-2025 End: 02-24-2025 Patient encounter procedure 02/24/2025 8:30 AM EDT Office Visit OB/Gynecology [address] [place], [place] [address] Ying Awan MD [address] [place], [place] [id number] Dx: Endometrial polyp [N84.0] OB/Gynecology Comment on above: Dx: Endometrial poly p [N84.0] Start: 02-23-2025 End: 02-23-2025 ambulatory Hematology/Oncology Comment on above: CBC/CMP(PORT)D15 CAR QUENTIN/TAXOL* (SO)CBC/CMP(S)(PORT) D15 CARBO/TAXOL* Start: 02-22-2025 End: 02-22-2025 Patient encounter procedure 02/22/2025 2:40 PM EDT Office Visit OB/Gynecology [address] [place], [place] [id number] Emilie Lennon MD [address] [place], [place] [id number] Dx: Endometrial polyp [N84.0] OB/Gynecology Comment on above: Dx: Endometrial poly p [N84.0] Start: 02-16-2025 End: 02-16-2025 ambulatory Hematology/Oncology Comment on above: CBC/CMP(PORT)D8 CARB O/TAXOL* (SO)CBC/CMP(S)(PORT) D8 CARBO/TAXOL* Start: 02-09-2025 End: 02-09-2025 ambulatory 02/09/2025 8:00 AM EDT Infusion Center Hematology/Oncology [address] [place], [place] [address] Q3WK CARBO/TAXOL/KEYTRUDA/C2- 4/LAB&OV 02/08* THEN KEYTRUDA/ONPRO ONLY Hematology/Oncology Comment on above: Q3WK CARBO/TAXOL/HERNANDEZ TRUDA/C2-4/LAB&OV 02/08* THEN KEYTRUDA/ONPRO ONLY Start: 02-08-2025 End: 02-08-2025 ambulatory Hematology/Oncology Comment on above: CBC/CMP/MAG(PORT)* T SH/T4/CORTISOL EVERY OTHER CYCLE OV(PORT)LAB EARLY/CH EMO 02/09* (SO)CBC/CMP(S)/MG(S) (PORT)* TSH/T4/CORTISOL EVERY OTHER CYCLE OV(PORT)LAB EARLY/CH EMO 02/09* [facility] Start: 02-02-2025 End: 02-02-2025 Patient encounter procedure 02/02/2025 11:00 AM EDT Office Visit Plastic Surgery [address] [place] [address] Otis Mock MD [address] [place] [address] breast ca Plastic Surgery Comment on above: [...] End: 01-14-2025 ambulatory 01/14/2025 10:30 AM EDT [facility] Hematology/Oncology [address] [place], [place] [phone] Wstr, Gas Inspector [facility] [address] [place], [place] [address] CHEMO ED* Hematology/Oncology Comment on above: CHEMO ED* Start: 01-14-2025 End: 01-14-2025 Patient encounter procedure 01/14/2025 7:45 AM EDT Appointment Radiology [address] [place] [address] Increased endometrial stripe thickness [R93.89] Radiology Comment on above: Increased endometria l stripe thickness [R93.89] Start: 01-10-2025 End: 01-10-2025 Admission to same day surgery center 01/10/2025 10:30 AM EDT - 01/10/2025 12:00 PM EDT Surgery [facility] [address] [place] [address] [place] [address] [address] INSERTION PORT VENOUS ACCESS ADULT [facility] Radiology Comment on above: INSERTION PORT VENOU S ACCESS ADULT Start: 01-10-2025 End: 01-10-2025 ambulatory 01/10/2025 10:30 AM EDT [facility] Hematology/Oncology [address] [place] [address] Wstr, Gas Inspector [facility] [address] [place] [address] CHEMO ED* Hematology/Oncology Comment on above: CHEMO ED* Start: 01-10-2025 End: 01-10-2025 Insj tunneled ctr vad w/subq port age 4 yr/> INSERTION PORT VENOUS ACCESS ADULT Malignant neoplasm of upper-inner quadrant of left breast in female, estrogen receptor negative (HCC) 01/10/2025 10:30 AM EDT [facility] Start: 01-10-2025 Subsequent hospital visit by physician 01/10/2025 10:30 AM EDT Hospital Encounter [facility]iology [address] [place] [address] [place] [address] [address] Malignant neoplasm of upper-inner quadrant of left breast in female, estrogen receptor negative (HCC) [C50.212, Z17.1] [facility] Comment on above: 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 [address] [place] [address] [place] [address] [place] [address] [facility] Comment on above: breast ca Start: 01-06-2025 End: 04-07-2025 NVTA INVITAE HEREDITARY DIAGNOSTIC CANCER PANEL [facility] Work Phone: Comment on above: Expected: 01/06/2025 , Expires: 04/07/2025 Start: 01-06-2025 End: 01-06-[address] [facility] Comment on above: breast ca new breast ca Start: 01-06-2025 End: 01-06-2025 Patient encounter procedure 01/06/2025 8:30 AM EDT Appointment Radiology [address] [place] [id number] MRI LIVER WO/W IVCON Radiology Comment on above: MRI LIVER WO/W IVCON Start: 01-04-2025 End: 01-04-2025 ambulatory Hematology/Oncology Comment on above: breast ca CASH POSTING CLERK/BREAST CA/REF DR HIRSCH* Start: 01-04-2025 End: 04-05-2025 Chronic hepatitis differentiation between hepatitis B and C virus panel - Serum or Plasma [facility] Work Phone: Comment on above: Expected: 01/04/2025 , Expires: 04/05/2025 Start: 12-15-2024 End: 12-15-2024 Patient encounter procedure 12/15/2024 8:20 AM EDT Appointment Cat Scan [address] [place] [address] ct chest Cat Scan Comment on above: ct chest Start: 12-14-2024 End: 12-14-[address] Scan Comment on above: ct abd Start: 12-13-2024 End: 12-13-2024 Patient encounter procedure 12/13/2024 9:30 AM EDT Office Visit Radiation Oncology [address] [place] [address] Sara Avalos MD [address] [facility] [place] [address] CASH POSTING CLERK/BREAST CANCER/REF BY Babita Morataya APRN.RADIOLOGY EQUIPMENT SERVICER* Radiation Oncology Comment on above: CASH POSTING CLERK/BREAST CANCER/REF BY Babita Morataya APRN.RADIOLOGY EQUIPMENT SERVICER* Start: 08-11-2024 Advance Directive Discussion Advance Directive Discussion [facility] Start: 04-11-2024 Covid-19 Vaccine () Covid-19 Vaccine () [facility] Start: 04-11-2024 Influenza vaccination Influenza Vacc ine (#1) [facility] Start: 2019 Screening for osteoporosis Bone Density Screening [facility] Start: 04-11-2019 Medicare Annual Well ness Visit Medicare Annual Wellness Visit [facility] Start: 2014 RSV Vaccine (1 - Ris k 60-74 years 1-dose series) RSV Vaccine (1 - Risk 60-74 years 1-dose series) [facility] Start: 2004 Pneumococcal Vaccine : 50+ (1 of 1 - PCV) Pneumococcal Vaccine: 50+ (1 of 1 - PCV) [facility] Start: 2004 Shingrix Vaccine (1 of 2) Nguyen grix Vaccine (1 of 2) [facility] Start: 1999 Lipid panel Lipid Screening [facility] Start: 1999 Screening for malign ant neoplasm of colon [facility] Start: 1994 Screening for malign ant neoplasm of breast Mammogram Screening [facility] Start: 1973 Pneumococcal Vaccine : 50+ (1 of 2 - PCV) Pneumococcal Vaccine: 50+ (1 of 2 - PCV) [facility] Start: 1973 Shingrix Vaccine (1 of 2) Nguyen grix Vaccine (1 of 2) [facility] Start: 1973 Urine microalbumin profile DTaP,Tdap,Td Vaccine (1 - Tdap) [facility] Start: 1972 Anxiety Screening Anxiety Screening [facility] Start: 1972 Depression Screening Depression Scre ening [facility] Start: 1972 Hepatitis C screening Hepatitis C Sc reening [facility] Start: 1965 Screening for malign ant neoplasm of cervix Cervical Cancer Screening [facility] Start: 1959 Covid-19 Vaccine (#1) Covid-19 Vacci ne (#1) [facility] Cortisol [Mass/volum e] in Serum or Plasma CORTISOL, SERUM Lab Routine Hypoadrenalism (HCC) 03/01/2025 8:46 AM EDT [facility] End: 01-07-2026 CT Abdomen and Pelvis W contrast IV CT ABD/PEL W IVCON Radiology Routine Malignant neoplasm of upper-inner quadrant of left breast in female, estrogen receptor negative (HCC) 1 Occurrences starting 12/08/2024 until 01/07/2026 [facility] Work Phone: Comment on above: 1 Occurrences starti ng 12/08/2024 until 01/07/2026 CT Abdomen and Pelvi s W contrast IV CT ABD/PEL W IVCON Radiology Routine Malignant neoplasm of upper-inner quadrant of left breast in female, estrogen receptor negative (HCC) 12/14/2024 1:35 PM EDT [facility] Work Phone: End: 01-07-2026 CT Chest WO contrast CT CHEST WO IVCON Radiology Routine Malignant neoplasm of upper-inner quadrant of left breast in female, estrogen receptor negative (HCC) 1 Occurrences starting 12/08/2024 until 01/07/[address] [facility] Comment on above: 1 Occurrences starti ng 12/08/2024 until 01/07/2026 CT Chest WO contrast CT CHEST WO IVCON Radiology Routine Malignant neoplasm of upper-inner quadrant of left breast in female, estrogen receptor negative (HCC) 12/14/2024 1:40 PM EDT [facility] FISH FOR HER-2 FISH FOR HER-2 L ab Routine Mass of upper inner quadrant of left breast 12/01/2024 1:56 PM EDT [facility] Work Phone: MR Breast - bilatera l WO and W contrast IV MRI BREAST WO/W IVCON BILATERAL Radiology Routine Malignant neoplasm of upper-inner quadrant of left breast in female, estrogen receptor negative (HCC) [facility] Liver WO and W contrast IV MRI LIVER WO/W IVCON Radiology Routine Lesion of liver greater than 1 cm in diameter 01/06/2025 9:18 AM [facility] Work Phone: MRI BREAST 3D POST PROCESSING MRI BREAST 3D POST PROCESSING Radiology Routine Malignant neoplasm of upper-inner quadrant of left breast in female, estrogen receptor negative (HCC) 01/04/2025 10:24 AM EDT [facility] Patient Education [facility] Work Phone: Stroke after atrial fibrillation 5 year risk [#] Tom 2003 IR PORTOCATH PLACEMENT Radiology Routine Malignant neoplasm of upper-inner quadrant of left breast in female, estrogen receptor negative (HCC) Ordered: 01/04/[address] [facility] Comment on above: Ordered: 01/04/2025 Thyrotropin [Units/volume] in Serum or Plasma THYROID STIMULATING HORMONE Lab Routine Malaise and fatigue Acquired hypothyroidism 03/01/2025 8:46 AM [facility] Work Phone: Thyroxine (T4) free [Mass/volume] in Serum or Plasma T4 FREE/FREE THYROXINE Lab Routine Malaise and fatigue Acquired hypothyroidism 03/01/2025 8:46 AM T [facility] Urine culture [facility] End: 02-03-2026 US Pelvis transvaginal US FEMALE PELVIS TRANSVAG Radiology Routine Increased endometrial stripe thickness 1 Occurrences starting 01/04/2025 until 02/03/2026 [facility] Work Phone: Comment on above: 1 Occurrences starti ng 01/04/2025 until 02/03/2026 US Pelvis transvaginal US FEMALE PELVIS TRANSVAG Radiology Routine Increased endometrial stripe thickness 01/14/2025 8:22 AM [facility] [place] Work Phone: Payers Date Payer Category Payer Self-pay 2020 Private Health Insurance [employer] SUPPLEMENT [id number] 2020 Unknown [id number] 2019 Medicare [id number] 2019 Medicare [id number] 1955 Unknown [id number] [id number]. 1955 Unknown [id number] 2.16840.1.006902.3.579.2 1955 Unknown [id number] 2.16840.1.995043.3.579.2. 1955 Unknown [id number] 2.16840.1.387410.3.579.2 1954 Unknown [id number] 2.16840.1.975234.3.579.2. 1955 Unknown [id number] 2.16840.1.043990.3.579.2. 1954 Unknown [id number] 2.16.840.1.960098.3.579.2. 1955 Unknown [id number] 2.16.840.1.299474.3.579.2. 1955 Unknown [id number] 2.16.840.1.890834.3.579.2. 627 1955 Unknown [id number] 2.16.840.1.958034.3.579.2. 627 1954 Unknown [id number] 2.16.840.1.615076.3.579.2. 627 1954 Unknown [id number] 2.16.840.1.758611.3.579.2. 62 1955 Unknown [id number] 2.16.840.1.859364.3.579.2. 62 1955 Unknown [id number] 2.16.840.1.964509.3.579.2. 627 1954 Unknown [id number] 2.16.840.1.414051.3.579.2. 627 Unknown [id number] 2.16.840.1.607049.3.579.2. 462 Unknown [id number] 2.16.840.1.725900.3.579.2. 462 Unknown [id number] 2.16.840.1.530132.3.579.2. 462 Unknown [id number] 2.16.840.1.478045.3.579.2. 462 Unknown [id number] 2.16.840.1.771737.3.579.2. 462 Unknown [id number] 2.16.840.1.985141.3.579.2. 462 Social History Date Type Detail Facility Start: 05-10-2020 End: 04-14-2025 Tobacco smoking status Never smoked tobacco (finding) [facility] Start: 1955 Sex Assigned At Female A [facility] Start: 06-16-2020 End: 01-06-2025 Tobacco use and exposure Smokeless tobacco non-user [facility] Start: 12-08-2024 End: 03-25-2025 Alcoholic beverage intake Ex-drinker (finding) [facility] Start: 12-08-2024 End: 03-25-2025 History of Social function [facility] Start: 12-08-2024 End: 03-25-2025 Tobacco use panel [facility] Start: 06-16-2020 National Score (1-10 0), lower number is lower risk [address] [facility] Start: 1955 Sex assigned at Not on file [facility] Start: 01-14-2025 Gender identity Identifies as female gender (finding) [facility] Start: 01-14-2025 Sexual orientation Heterosexual (fin deana) [facility] Start: 05-31-2019 Alcohol Alcohol [facility] Start: 05-31-2019 Lives Lives [facility] Medical Equipment Procedure Code Equipment Code Equipment Origin al Text Equipment Identifier Dates Power Injectable Vaccess Ct Plastic 8f Chronoflex Catheter With Kit - [id number] Start: 01-10-2025 Goals Date Patient Goal Desired Activity /State Mental Status Date Assessment Result Facility 03-18-2025 Cognitive function Voice/Name [facility] Work Phone: 02-27-2025 Cognitive function Level Of Cons ciousness Awake;Alert;Appropriate;Follow s Commands [facility] Work Phone: Clinical Notes 11-06-2022 to 04-08-2025 Dania Mireles LPN - 04/08/2025 9:27 AM Dania Abdalla LPN - 04/07/2025 10:13 AM EDTTelephone Encounter - Jennifer Burk RN - 04/04/2025 12:56 PM Fiordaliza Kumar LPN - 04/01/2025 9:29 AM EDT Note Date & Type Note Facility 04-08-2025 Note HNO ID: [id number] Author: DANIA MIRELES LPN Service: ? Author Type: Licensed Nurse Type: Progress Notes Filed: 04/08/2025 09:33 Note Text: Patient here for injection of filgrastim. Given sq in left arm. Patient tolerated well. Dania Mireles LPN [facility] 04-08-2025 History of Presen t illness Narrative Patient here for injection of filgrastim. Given sq in left arm. Patient tolerated well. Dania Mireles LPN documented in this encounter [facility] 04-07-2025 Note HNO ID: [id number] Author: DANIA MIRELES LPN Service: ? Author Type: Licensed Nurse Type: Progress Notes Filed: 04/07/2025 11:27 Note Text: Patient here for injection of filgrastim. Given SQ in left arm. Patient tolerated well. Dania Mireles LPN [facility] 04-07-2025 History of Presen t illness Narrative Patient here for injection of filgrastim. Given SQ in left arm. Patient tolerated well. Dania Mireles LPN documented in this encounter [facility] 04-04-2025 Telephone encounter Note Discussed with Dr. Martinez. Spoke to patient. Patient had a BM since we spoke. Patient was in the middle of drinking a glass of miralax while we were on the phone. Patient stated she will start MOM tomorrow. Jennifer Burk RN [facility] 04-04-2025 Miscellaneous Notes Discussed with Dr. Martinez. Spoke to patient. Patient had a BM since we spoke. Patient was in the middle of drinking a glass of miralax while we were on the phone. Patient stated she will start MOM tomorrow. Jennifer Burk RN Hold filgrastim today. Orville Martinez DO Patient stated she had lightheadedness after injections last week. Patient stated when she touches her stomach internally it feels hard her abdomen is soft to touch. Yesterday she bent over to filler picker a pair of shoes and I felt like I was going to pass out, everything went dark, last week she had 2-3 episodes of feeling lightheaded. Patient stated she is not lightheaded with walking, denies dizzy with standing. Drinking around 64 ounces of fluids daily. Constipation Symptoms: When was your last bowel movement? Friday. What is your normal frequency of bowel movements (every day, every 2 days...) every day or every other day. Any blood in the stool or on the toilet tissue? No Are you eating and drinking normally? I'm not eating as much because it has that heavy feeling, I'm eating but in smaller amounts Are you taking any new medications or supplements? no Are you passing any gas? Not too much. Belching. Any fever, nausea or vomiting? Denies fevers, chills, N/V. What have you taken to try to alleviate your constipation symptoms? Miralax one glass daily and prune juice 1/2 glass. Does your stomach look swollen, feel hard to touch, or do you have pain in your stomach? Feels hard internally, soft when palpating. Denies abdominal pain. Patient has not taken MOM the night before chemotherapy but stated she will start with her next treatment. When patient pushes in to the LUQ, feels like a tingly nerve pain straight across from the stomach. Patient denies abdominal distention. Patient stated she was reading about spleen issues caused by Neupogen. Patient aware this nurse will discuss her concerns with Dr. Martinez. Patient will take an extra dose of miralax when she gets home. Also discussed mag citrate as a potential option as well. Jennifer Burk RN documented in this encounter [facility] 04-04-2025 Telephone encounter Note Hold filgrastim today. Orville Martinez DO [facility] 04-04-2025 Telephone encounter Note Patient stated she had lightheadedness after injections last week. Patient stated when she touches her stomach internally it feels hard her abdomen is soft to touch. Yesterday she bent over to filler picker a pair of shoes and I felt like I was going to pass out, everything went dark, last week she had 2-3 episodes of feeling lightheaded. Patient stated she is not lightheaded with walking, denies dizzy with standing. Drinking around 64 ounces of fluids daily. Constipation Symptoms: When was your last bowel movement? Friday. What is your normal frequency of bowel movements (every day, every 2 days...) every day or every other day. Any blood in the stool or on the toilet tissue? No Are you eating and drinking normally? I'm not eating as much because it has that heavy feeling, I'm eating but in smaller amounts Are you taking any new medications or supplements? no Are you passing any gas? Not too much. Belching. Any fever, nausea or vomiting? Denies fevers, chills, N/V. What have you taken to try to alleviate your constipation symptoms? Miralax one glass daily and prune juice 1/2 glass. Does your stomach look swollen, feel hard to touch, or do you have pain in your stomach? Feels hard internally, soft when palpating. Denies abdominal pain. Patient has not taken MOM the night before chemotherapy but stated she will start with her next treatment. When patient pushes in to the LUQ, feels like a tingly nerve pain straight across from the stomach. Patient denies abdominal distention. Patient stated she was reading about spleen issues caused by Neupogen. Patient aware this nurse will discuss her concerns with Dr. Martinez. Patient will take an extra dose of miralax when she gets home. Also discussed mag citrate as a potential option as well. Jennifer Burk RN [facility] 04-01-2025 Note [facility] 04-01-2025 History of Presen t illness Narrative Patient presents with: Imm/Inj Pt is identified by name and birthdate: Yes. Allergies and medications reviewed. Latex allergy? No. Does this patient have: Unplanned weight loss or gain of greater than 10 pounds, or a change of appetite over the last year? No Does the patient have any concerns about safety in the home/falls? Not at risk for falls Has the patient fallen in the past year? No Does the patient have difficulty performing or completing routine daily living activities? No Does this patient have concerns about personal safety? No Is patient having pain? Pain: No=0 (pain 0 on a scale of 0-10). Health Maintenance: Reviewed and updated. Does patient have MyChart access or Caregiver proxy: yes Pt/Caregiver willingness and readiness to learn assessed: Yes. Barriers: none Nivestym injection administered, left arm, tolerated well, no immediate adverse reactions noted. Fiordaliza Perdomo LPN documented in this encounter [facility] 03-25-2025 Note [facility] 03-25-2025 History of Presen t illness Narrative Patient here for injection of Neupogen. Given SQ in left arm. Patient tolerated well. For all other information regarding today, see today's OV note with FLAT BED OPERATOR earlier today. Dania Mireles LPN documented in this encounter [facility] 03-25-2025 Note [facility] 03-25-2025 History of Presen t illness Narrative DATE OF SERVICE: 03/25/2025 PROBLEM: Liz Robles presents for postop visit. SURGERY & DATE: 03/18/2025 Hysteroscopy D&C - thin atrophic endometrium without lesions noted at time of hysteroscopy PATHOLOGY: benign SUBJECTIVE/INTERVAL HISTORY: Liz Robles is doing well. Had dysuria and hematuria after surgery for which she presented to the ER. States she was told she did not have a UTI. Drank cranberry juice and took Azo. Symptoms have since resolved. Denies fevers, chills, nausea, vomiting, pain, vaginal bleeding, vaginal discharge. SENSITIVE EXAM: Sensitive exam not performed. OBJECTIVE: VITALS: BP 120/76 Wt 76.3 kg (168 lb 3.2 oz) LMP (LMP Unknown) BMI 27.52 kg/m GEN: NAD, well appearing, comfortable ASSESSMENT: post op PLAN: Reviewed surgery and pathology findings Discussed reasons to call RTO annual exam and PRN Emilie Lennon DO documented in this encounter [facility] 03-23-2025 History of Presen t illness Narrative ANC 0.81. Postpone D1 to next week, start daily neupogen x3 today. Pt made aware of these changes. PSS aware to readjust her schedule. documented in this encounter [facility] 03-23-2025 Note [facility] 03-22-2025 Telephone encounter Note I spoke with the patient. She was seen at [facility] ER; no UTI, had irritation from having a catheter during surgery with Dr. Lennon on Friday. ER gave her Azo, patient was sent home and she continued Azo and hydration with water and cranberry juice over the weekend and is now fine. Winsome Soriano LPN [facility] 03-22-2025 Miscellaneous Notes I spoke with the patient. She was seen at [facility] ER; no UTI, had irritation from having a catheter during surgery with Dr. Lennon on Friday. ER gave her Azo, patient was sent home and she continued Azo and hydration with water and cranberry juice over the weekend and is now fine. Winsome Soriano LPN documented in this encounter [facility] 03-22-2025 Note [facility] 03-22-2025 History of Presen t illness Narrative Chief Complaint Patient presents with: [...] Invasive carcinoma with apocrine features at least Stanley grade 2. ER/RI both negative. HER2 2+. Nonamplified on FISH testing. CT of the chest, abdomen pelvis on 12/14/2024 showed a near 2 and half centimeter left breast mass and a few less than 6 mm pulmonary nodules. There was an indeterminate 1.3 cm segment liver lesion. MRI was recommended for further characterization. Rash persists. Followed by DERM. Last treatment was 03/09/25. Treatment held d/t neutropenia. Appetite:I don't really have one but I eat. Wt. stable. Energy level:Good. Denies fevers. 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 Martinez last visit Skin:+rash to arms/legs since second treatment Heme:denies bleeding, occ bloody nose The ROS is otherwise negative. Past medical history, appointments, medications, allergies reviewed. No changes. EXAM: BP 95/56 Pulse 97 Temp 36.9 C (98.4 F) (Temporal) Ht 166.5 cm (5' 5.55) Wt 76 kg (167 lb 8.8 oz) LMP (LMP Unknown) SpO2 99% BMI 27.41 kg/m APPEARANCE Well appearing, alert, in no acute distress, well-hydrated, well nourished. HEART RRR with normal S1 and S2, no murmurs LUNG clear to auscultation BREAST FEMALE L breast mass 1cm, mobile LYMPH NODES No cervical lymphadenopathy, No supraclavicular lymphadenopathy, and No axillary lymphadenopathy. ABDOMEN bowel sounds normoactive, soft, non-tender EXTREMITIES No edema NEURO Awake, alert and oriented x 3, Normal gait, and No involuntary motions. SKIN diffuse rash to extrem, chest, face LABS: Latest Ref Rng 03/09/2025 03/16/2025 03/17/2025 03/22/2025 WBC 3.70 - 11.00 k/uL 5.24 3.10 (L) 2.81 (L) 2.69 (L) RBC 3.90 - 5.20 m/uL 3.40 (L) 3.11 (L) 3.09 (L) 3.31 (L) Hemoglobin 11.5 - 15.5 g/dL 11.4 (L) 10.8 (L) 10.7 (L) 11.6 Hematocrit 36.0 - 46.0 % 33.5 (L) 30.9 (L) 30.9 (L) 33.3 (L) MCV 80.0 - 100.0 fL 98.5 99.4 100.0 100.6 (H) MCH 26.0 - 34.0 pg 33.5 34.7 (H) 34.6 (H) 35.0 (H) MCHC 30.5 - 36.0 g/dL 34.0 35.0 34.6 34.8 RDW-CV 11.5 - 15.0 % 13.3 14.6 14.7 15.9 (H) Platelet Count 150 - 400 k/uL 270 184 177 161 MPV 9.0 - 12.7 fL 8.4 (L) 8.7 (L) 8.8 (L) 8.4 (L) Neut% % 28.1 28.8 31.6 34.3 Abs Neut (ANC) 1.45 - 7.50 k/uL 1.47 0.89 (L) 0.89 (L) 0.92 (L) Lymph% % 66.4 64.2 60.9 48.3 Abs Lymph 1.00 - 4.00 k/uL 3.48 1.99 1.71 1.30 Potter% % 4.0 4.8 5.0 15.6 Abs Potter <0.87 k/uL 0.21 0.15 0.14 0.42 Eosin% % 0.0 0.3 0.0 0.4 Abs Eosin <0.46 k/uL <0.03 <0.03 <0.03 <0.03 Baso% % 0.2 0.0 0.4 0.7 Abs Baso <0.11 k/uL <0.03 <0.03 <0.03 <0.03 Immature Gran % % 1.3 1.9 2.1 0.7 IMMATURE GRANS (ABS) <0.10 k/uL 0.07 0.06 0.06 <0.03 NRBC /100 WBC 1.3 1.3 1.1 0.0 Absolute nRBC <0.01 k/uL 0.07 (H) 0.04 (H) 0.03 (H) <0.01 DTYPE Auto Auto Auto Auto CMP/Mag: Pending ASSESSMENT/PLAN: 1. Malignant neoplasm of upper-inner quadrant of left breast in female, estrogen receptor negative (HCC) - ICD9: 174.2, V86.1, ICD10: C50.212, Z17.1 Clinical stage from 01/04/2025: Stage IIB (cT2, cN0, cM0, G2, ER-, RI-, HER2-) - Signed by Orville Martinez DO on 01/04/[address] 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 - Overall tolerating therapy well with the exception of rash presumably from immunotherapy but also appears to have exacerbation in sun-exposed areas which could be from chemotherapy i.e. paclitaxel. Discussed the importance of avoiding sun exposure. - [...] Repeat MRI Breast when completes NACT. - Tolerating treatment well except for rash. L breast mass responding. - Reviewed CBC with pt. - CMP/Mag pending. - Continue current medications. - Repeat CT chest after completion of carbo/taxol. - Continue follow up with DERM. - Repeat CBC in a.m. - Will proceed with treatment pending tomorrow mornings CBC/ANC. - Follow up as scheduled. - Pt. aware to call office with any questions/concerns. The patient indicates understanding of these issues and agrees with the plan. All documentation from previous visit of 03/01 and 03/14/25-Dr. Martinez/myself was copied and pasted, documentation has been reviewed and edited as necessary for today's visit. Sonali Love APRN.[email or web address] documented in this encounter [facility] 03-18-2025 Discharge summary [facility] 03-18-2025 Discharge summary Note Date/Time March 18, 2025 11:30pm [facility] Medical Records Department [address] [place] [address] Emergency Department Summary 03/18/25 MR#: [id number] Acct: [id number] Name: LIZ ROBLES Rep #:[id number] : 1955 69 From: Mazin Arevalo DO PCP: YEISON Vargas Status:REG E R Location: ED HPI History of Present Illness Chief Complaint: Complaint Narrative Narrative: Patient is a 69-year-old female with past medical history of breast cancer on chemo which was approximately 2 weeks ago last dose, GERD, hypertension who presented to the emergency department chief complaint of concern for urinary tract infection. Patient states that she had a hysteroscopy done today by Dr. Lennon as she had a polyp and they took this to the D&C and sent for pathology. She states that afterwards when she went home she noted that when she tried to urinate it was very painful for her and continued therefore she came here to ensure that she does not have a urinary tract infection. [facility] Medical History History of stress test Wears [...] Type Severity Reaction Status Date / Time adhesive tape Allergy Mild redness Verified 03/18/25 22:05 [id number] Reductase AdvReac Pain in Verified 03/18/25 22:05 Inhibitor joints Family History Uncle Alcoholism Aunt Alcoholism Breast cancer Cancer ovarian Mother Liver disease Brother High cholesterol Surgical History Hx of dilation and curettage Hx of eye surgery Social History household members: spouse housing: house Smoking Status: Never smoker alcohol intake: never substance use type: does not use what type of physical activity do you participate in: none ROS ROS ED ROS Narrative Constitutional: Denies any fevers, chills Abdomen: Denies abdominal pain nausea vomiting : States that she has having some bleeding from her procedure earlier complains of urinary symptoms as noted above Neurological: Denies any numbness, weakness, tingling Musculoskeletal: Denies back pain Skin: Denies any rashes or lesions EXAM Physical Exam Narrative Exam Narrative: General: Patient was sitting in chair at bedside rest comfortably did not appearto be in acute distress Head: Atraumatic, normocephalic Eyes: PERRL bilaterally, EOMI bilateral, no conjunctival injection noted Neck: Soft, supple, trachea midline Cardiovascular: Regular rate and rhythm Respiratory: Clear to auscultation bilaterally Abdomen: Soft, nondistended, no tenderness palpation Extremities: +5/5 strength noted in the bilateral upper and lower extremities Neurological: Patient following commands knew that she was at [facility] year is 2024 Skin: Warm, dry, intact no rashes lesions noted Const Vital Signs: 03/18/25 22:01 Temperature 98.2 F Temperature Source Oral Pulse Rate 100 Respiratory Rate 18 Blood Pressure 142/69 H Blood Pressure Mean 93 Pulse Ox 97 Oxygen Delivery Method Room Air MDM MDM MDM Narrative Medical decision making narrative: Patient is a 69-year-old female who presented to the emergency department the chief complaint of concern for urinary tract infection. On the differential diagnosis includes but not limited to UTI, urethral irritation from procedure earlier today. Once workup is obtained reviewed she will be reevaluated. Patient's urinalysis reviewed and showed no evidence of infection. Patient willbe given dose of Azo here in the emergency department. She is vies to follow-upwith her doctor in outpatient setting and return with worsening symptoms or any concerns. She is agreeable this plan all question concerns answered she was discharged home in stable condition. Lab Data Labs: Laboratory Results - last 24 hr 03/18/25 22:25 Urine Color Yellow Urine Clarity Clear Urine pH 7.0 Ur Specific [place] 1.010 Urine Protein 15 H Urine Glucose (UA) Normal Urine Ketones Negative Urine Occult Blood 10 H Urine Nitrite Negative Urine Bilirubin Negative Urine Urobilinogen Normal Ur Leukocyte Esterase Negative Urine RBC 0-5 SEEN Urine WBC 0-5 SEEN Ur Squamous Epith Cells 0 SEEN Urine Bacteria 0 SEEN Urine Mucus 0 SEEN Discharge Plan Triage Chief Complaint: Complaint ED Provider: Mazin Arevalo Dx/Rx/DC Orders Clinical Impression: Cystitis, Status post hysteroscopic polypectomy Prescriptions: No Action fluorometholone 0.1 % drops,suspension [...] PO DAILY Patient Comments: SEE DOSE PACK Primary Care Provider: Babita Morataya NP Referrals: Babita Morataya NP, CASH POSTING CLERK-C [Primary Care Provider] - Activity Restrictions/Additional Instructions: Your urine did not show any evidence of infection hand emergency department. Follow-up with your doctor in outpatient setting return with worsening symptoms or any concerns. Print Language: Lithuanian Disposition Disposition: Home, Self Care What to do if you have Problems For any increased pain, shortness of breath, bleeding, nausea or vomiting, chestpain, or any unexpected problems, contact your Primary Care Provider. Call [facility] ([phone]) or report to the closest Emergency Room. Call 911 if necessary. 03/18/25 2330 <Electronically signed by Mazin Arevalo DO> Cosigner Signature (if applicable): CC: LEANA-C Babita Morataya ~ Signed [facility] Work Phone: 1(326) 288-769408-08-[address] [facility] Medical Records Department [address] [place] [address] Anesthesia Postop Eval I 03/18/25 1226 MR#: [id number] Acct: [id number] Name: LIZ ROBLES Rep #:[id number] : 1955 69 From: Suman Victoria CRNA PCP: YEISON Vargas Status:REG S DC Y Race: C Location: [place] [address] Anesthesia: Postop Eval I Current Vital Signs [...] Anesthesia document: Postop Eval 1 completed: Yes 03/18/25 1227 y AUTOMATION LEAD> Date _ Suman Victoria CRNA Cosigner Signature: Date CC: ~ Signed [facility]08-08-2025 Procedure note [facility] Medical Records Department [address] [place] [address] Operative Report 03/18/25 1219 MR#: [id number] Acct: [id number] Name: LIZ ROBLES Rep #:[id number] : 1955 69 From: Emilie Lennon DO PCP: YEISON Vargas Status:REG S DC Location: [place] [address] Problems Associated Problem List Diagnoses (1) Endometrial polyp: Operative Report (Standard) Operative Information Date of Procedure: 03/18/25 Pre-Operative Diagnosis: Endometrial polyp on pelvic ultrasound Post-Operative Diagnosis: No lesion noted on hysteroscopy Surgery/Procedure Performed: Hysteroscopy D&C supervisor continuous weld pipe mill: No Type of Anesthesia: Local and MAC RN Documented Start/Stop Times: Operation Date: 03/18/25 11:40 Case Time Into Pre-Op 03/18/25 10:24 Out of Pre-Op 03/18/25 11:52 Anesthesia Start 03/18/25 11:57 Into Room 03/18/25 11:57 Procedure Start 03/18/25 12:10 Procedure End 03/18/25 12:16 Procedure Start Time: 12:10 Procedure Stop Time: 12:16 Select all DRAINS/GRAFTS/IMPLANTS that apply: None Special Medications: None Estimated Blood Loss: < 20 mL Specimen collected: Yes Description of specimen(s) removed: Endometrial curettings Description of surgery: The patient was taken to the operating room where MAC anesthesia was induced andfound to be adequate. She was prepped and draped in the dorsal lithotomy position using yellowfin stirrups. A weighted speculum was placed in the vaginato expose the cervix. The anterior lip of the cervix was grasped with a single-tooth tenaculum. 10 mL of local was infiltrated within the cervix. The cervix was serially dilated to accommodate the Symphion hysteroscope. The Symphion hysteroscope was advanced into theuterus, and the uterus was distended with normal saline as distention media. Bilateral tubal ostia were visualized. The endometrium was thin and atrophic appearing. There were no lesions noted withinthe uterus or within the endocervical canal. The hysteroscope was slowly removed, and there were no polyps or lesions noted. A sharp curettage was performed for scant tissue. The endometrial curettings were sent to pathology for review. Bleeding was scant. All instruments were removed from the vagina. A vaginal sweep was performed. Instrument and sponge counts were correct and the patient was taken to the recovery room in good stable condition. 300 mL fluid deficit. Surgical Findings: Normal appearing uterine cavity with thin, atrophic appearing endometrium Complications Complications: No Admit VTE Documentation VTE Present on Admission: No VTE Mechan Device Prophylaxis: SCD's 03/18/25 1225 Cosigner Signature (if applicable): CC: YEISON Morataya; Dr. Emilie Lennon DO~ Signed [facility]08-08-2025 Discharge summary [facility] Medical Records Department [address] [place] [address] Instructions for Home/Discharge Instructions 03/18/25 1218 MR#: [id number] Acct: [id number] Name: LIZ ROBLES Rep #:[id number] : 1955 69 From: Emilie Lennon DO [...] Using more than 1 pad per hour, Dizziness,Chest pain, Increased palpitations (irregular heartbeat), Calf discomfort [...] Patient Instructions: Dilation and Curettage Print Language: Lithuanian Discharge Orders/Prescriptions Prescriptions: Continued fluorometholone 0.1 % [...] SEE DOSE PACK Referrals / Follow Up: Babita Morataya NP, CASH POSTING CLERK-C [Primary Care Provider] - Disposition Disposition (needs filled in before D/C Order can be placed): Home, Self Care 03/18/25 1219Sara Saji DO CC: CASH POSTING CLERK-C Babita Morataya ~ Signed [facility]08-08-2025 Evaluation note* Diagnosis Onset Date Resolution Status Admit Date Endometrial polyp acute March 18, 2025 10:12am [facility] Work Phone: 1(234) 737-590908-08-[address] 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 Hx Hospitalization No 03/09/25 11:40 Any Problems [...] take am of surgery PONV PONV - installer metal flooring: PONV - installer metal flooring Female Yes 03/09/25 11:40 HX of Motion [...] 03/18/25 10:43 Respiratory Assessment Respiratory Assessment - installer metal flooring: Respiratory Tract Infection Hx - installer metal flooring Hx Respiratory Tract Infection No 03/09/25 11:40 STOP Sleep Apnea STOP Sleep Apnea - installer metal flooring: STOP Sleep Apnea - installer metal flooring Hx Hypertension Yes: NO MEDS PRESENTLY 03/09/25 [...] Tobacco Use History Tobacco Use History - installer metal flooring: Tobacco Use History - installer metal flooring Tobacco Use Smoking Status Never smoker 03/09/25 11:40 Hx Tobacco Use No 03/09/25 11:40 Years Smoking Packs Smoked per Day Smoking Cessation Date was within the last 15 years Hx Smoking Cessation Date Hx Smoking Cessation Counseling Hematologic Medial History Hematologic Hx - installer metal flooring: Hematologic Medical Hx - advisory application developer Hx of Blood Transfusion No 03/09/25 11:40 [...] confused, unrespo /Reproduction History /Reproductive History - installer metal flooring: /Reproductive Hx- installer metal flooring Hx Now No 03/09/25 11:40 Gestational Age [...] Type Severity Reaction Status Date / Time Bhijmma-KZX-GvG Reductase AdvReac Pain in Verified 03/09/25 11:26 [...] Signature: Date CC: ~ Signed [facility]08-06-[address]25 [facility]08-04-[address]25 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 ER/RI both negative. HER2 2+. Nonamplified on FISH [...] predated her breast cancer and wasseeing a emergency nurse. However rash was much worse after 2 [...] Date BX OF BREAST; INCISIONAL Left 11/2024 [id number]. hx of eye surgery doxycycline monohydrate (MONODOX) [...] by mouth once daily. ALLERGIES Allergen Reactions Vapjbmg-Fvj-Ylq Red* Myalgia Social History Tobacco Use Smoking [...] was discussed with the patient or authorized volunteer patient representative. The patient or authorized volunteer patient representative has agreed to proceed with the [...] Stage IIB (cT2, cN0, cM0, G2, ER-, RI-, HER2-) - Signed by Orville Martinez DO [...] necessary. Orville Martinez DO documented [facility] Telephone encounter Note * Telephone Encounter - Winsome Soriano LPN - 03/14/2025 8:22 AM EDT Patient will come in today to see Dr. Martinez at 10:10. She is aware. Winsome Soriano LPN [facility]08-04-2025 Miscellaneous Notes* Telephone Encounter - Winsome Soriano LPN - 03/14/2025 8:22 AM EDT Patient will come in today to see Dr. Martinez at 10:10. She is aware. Winsome Soriano LPN documented in this encounterMer[facility]08-01-2025 Telephone encounter Note * Telephone Encounter - Jennifer Burk RN - 03/11/2025 3:57 PM EDT Spoke to patient. Answered her questions. Patient has c/o sinus drainage, asking if she can take a medication called Contac; tylenol and sudafed. Patient informed she can take this; monitor for a fever if she starts to feel unwell. Jennifer Burk RN [facility]08-01-2025 Miscellaneous Notes* Telephone Encounter - Jennifer [...] on 03/16, called in and spoke to bread jockey and r/s to 03/14 due to work [...] 7:25 AM EDT To: Zoe Nair RN; [facility] Called patient, no answer, left a VM requesting a call back. Jennifer Burk RN documented in this encounterMer[facility]08-01-2025 Telephone encounter Note * Telephone Encounter - Thais Davis - 03/11/2025 3:55 PM EDT Patient returned call. Care coord line was busy. Patient also asking what she can take for sinus. [facility] Work Phone: 1(435) 588-969008-01-2025 Telephone encounter Note* Telephone Encounter - Jennifer Burk RN - 03/11/2025 3:27 PM EDT Received a message through treatment plans. Spoke with patient and informed that treatment on 03/14 was scheduled too soon. Patient was originally scheduled on 03/16, called in and spoke to bread jockey and r/s to 03/14 due to work trip. Patient is not available -Fri. 03/14 Treatment canceled. Patient requested to speak with Jennifer regarding rash, asking if this will continue even during next cycle. Patient is scheduled to see Derm on 03/28 ----- Message ----- From: Thais Davis Sent: 03/11/2025 10:29 AM EDT To: Zoe Nair RN; Lv Lopez RP; * Message left for patient to contact office to reschedule. Will check remaining schedule ----- Message ----- From: Lv Lopez RPh Sent: 03/11/2025 7:25 AM EDT To: Zoe Nair RN; [facility] Called patient, no answer, left a VM requesting a call back. Jennifer Burk RN [facility]07-31-2025 Telephone encounter Note* Telephone Encounter - Noemi Meier RN - 03/10/2025 12:41 PM EDT Care Coordination Triage Note Cancer [place] Situation: Patient reports Other 2 lumps in neck Background: Breast cancer on Carbo/Taxol/Keytruda Assessment: Call to patient, she is driving to [place] for the weekend. She just had acupuncture [...] Meier RN March 10, 2025 12:[address] [facility] Work Phone: 1(287) 721-194207-31-2025 Miscellaneous Notes* Telephone Encounter - Noemi Meier RN - 03/10/2025 12:41 PM EDT Care Coordination Triage Note Cancer [place] Situation: Patient reports Other 2 lumps in neck Background: Breast cancer on Carbo/Taxol/Keytruda Assessment: Call to patient, she is driving to [place] for the weekend. She just had acupuncture [...] 10, 2025 12:41 PM documented in this encounterMer[facility]07-31-2025 Telephone encounter Note * Telephone Encounter - Winsome Soriano LPN - 03/10/2025 12:27 PM EDT Records received from [facility] and placed on Jennifer's desk. Winsome Soriano LPN [facility]07-31-2025 Miscellaneous Notes* Telephone Encounter - Winsome Soriano LPN - 03/10/2025 12:27 PM EDT Records received from [facility] and placed on Jennifer's desk. Winsome Soriano LPN * Telephone Encounter - Jennifer Burk RN - 03/09/2025 2:42 PM EDT Spoke to patient. Dr. Martinez prescribed doxycycline. Reviewed instructions for use. Recent records from [facility] requested. Jennifer Burk RN * Telephone Encounter [...] with itching. Cream was prescribed by dermatology, [facility]. Patient stated all of theprevious areas have [...] new/worseningsymptoms. Jennifer Burk RN documented in this encounterMer[facility]07-30-2025 Telephone encounter Note * Telephone Encounter - Jennifer Burk RN - 03/09/2025 2:42 PM EDT Spoke to patient. Dr. Martinez prescribed doxycycline. Reviewed instructions for use. Recent records from [facility] requested. Jennifer Burk RN [facility]07-29-2025 Telephone encounter Note* Telephone Encounter - Orville Martinez DO - 03/08/2025 5:00 PM EDT Ask her to send pictures of several of the lesions. Orville Martinez DO [facility]07-29-2025 Note[facility] Telephone encounter Note* Telephone Encounter - Jennifer [...] will report any new/worseningsymptoms. Jennifer Burk RN [facility]07-28-2025 History and physical note* Emilie Lennon MD - 03/07/2025 1:43 PM EDT DATE OF SERVICE: March 07, 2025 PROBLEM: pre op, polypoid lesion in the uterus on ultrasound DIAGNOSIS: as above PAST SURGICAL HISTORY: PAST SURGICAL HISTORY Procedure Laterality Date BX OF BREAST; INCISIONAL Left 11/2024 [id number]. hx of eye surgery PAST MEDICAL HISTORY: PAST MEDICAL HISTORY Diagnosis Date Breast cancer (HCC) 11/2024 left breast Essential hypertension SUBJECTIVE: Patient offers no new complaints today. SOCIAL HISTORY: Social History Tobacco Use Smoking status: Never Smokeless tobacco: Never Vaping Use Vaping status: Never Used Substance Use Topics Alcohol use: Not Currently Drug use: Not Currently ALLERGIES Allergen Reactions Qrpqonj-Qtn-Xdt Red* Myalgia Current Outpatient Medications on File [...] and stored in a permanent archive. MQ: [facility]_2021 COMPARISON: CT of the abdomen and pelvis [...] Making Level: 4 - Moderate [facility]07-28-2025 History and physical note* Emilie Lennon MD - 03/07/2025 1:43 PM EDT DATE OF SERVICE: March 07, 2025 PROBLEM: pre op, polypoid lesion in the uterus on ultrasound DIAGNOSIS: as above PAST SURGICAL HISTORY: PAST SURGICAL HISTORY Procedure Laterality Date BX OF BREAST; INCISIONAL Left 11/2024 [id number]. hx of eye surgery PAST MEDICAL HISTORY: PAST MEDICAL HISTORY Diagnosis Date Breast cancer (HCC) 11/2024 left breast Essential hypertension SUBJECTIVE: Patient offers no new complaints today. SOCIAL HISTORY: Social History Tobacco Use Smoking status: Never Smokeless tobacco: Never Vaping Use Vaping status: Never Used Substance Use Topics Alcohol use: Not Currently Drug use: Not Currently ALLERGIES Allergen Reactions Tmeqajb-Vjq-Ivl Red* Myalgia Current Outpatient Medications on File [...] and stored in a permanent archive. MQ: [facility]_2021 COMPARISON: CT of the abdomen and pelvis [...] Level: 4 - Moderate documented in this encounterMer[facility]07-24-2025 Telephone encounter Note * Telephone Encounter - Joyce Asencio LPN - 03/03/2025 4:13 PM EDT Patient scheduled for surgery 03/18/25. Can patient be added to scheduled for pre- op on 03/04 or 03/07? [facility]07-24-2025 Miscellaneous Notes* Telephone Encounter - Joyce Asencio LPN - 03/03/2025 4:13 PM EDT Patient scheduled for surgery 03/18/25. Can patient be added to scheduled for pre- op on 03/04 or 03/07? * Telephone Encounter - Emilie Lennon MD - 03/03/2025 8:15 AM EDT Surgery sheet was completed. Forwarded [employer] message regarding this. I had messaged her oncology team for clearance, and they would want a CBC a day before the procedure to determine if she is ok for surgery. Thanks * Telephone Encounter - Yesi Figueroa, EVERT - 03/01/2025 3:24 PM EDT Discussed Hysteroscopy, polypectomy, D&C at last appointment. Yesi Figueroa, RN documented in this encounterMer[facility] Health [facility]. [facility]07-24-2025 Telephone encounter Note * Telephone Encounter - Emilie Lennon MD - 03/03/2025 8:15 AM EDT Surgery sheet was completed. Forwarded epic message regarding this. I had messaged her oncology team for clearance, and they would want a CBC a day before the procedure to determine if she is ok for surgery. Thanks [facility] Work Phone: 1(840) 331-615307-23-2025 NoteHNO ID: [id number] Author: NOVA BERRY RN Service: ? Author Type: Registered Nurse Type: Progress Notes Filed: 03/02/2025 12:40 Note Text: Pt stated no changes to assessment from OV yesterday. Nova Berry RNSelect Medical [facility]ty [facility]07-23-2025 History of Present illness Narrative* Nova Berry RN - 03/02/2025 9:40 AM EDT Pt stated no changes to assessment from OV yesterday. Nova Berry RN documented in this encounterMercy [facility]07-22-2025 Telephone encounter Note * Telephone Encounter - Yesi Figueroa RN - 03/01/2025 3:24 PM EDT Discussed Hysteroscopy, polypectomy, D&C at last appointment. Yesi Figueroa RN [facility]07-22-2025 NoteSelect [facility]07-22-2025 History of Present illness Narrative* Sonali Love [...] apocrine features at least Mitchel grade 2. ER/RI both negative. HER2 2+. Nonamplified on FISH [...] 1.00 - 4.00 k/uL 1.86 1.32 1.29 Potter% % 5.7 5.1 3.9 Abs Potter <0.87 k/uL 0.25 0.14 0.10 Eosin% % [...] Stage IIB (cT2, cN0, cM0, G2, ER-, RI-, HER2-) - Signed by Orville Martinez DO [...] visit. Sonali Love APRN.SHAQ documented in this encounterMercy Health St. [facility]07-21-2025 Telephone encounter Note * Telephone Encounter - Noemi Meier RN - 02/28/2025 1:[address] Martinez, renzo to try acupuncture. If she has someone she knows, that's fine or we can suggest someone. Elise Meier RN [facility] Work Phone: 1(223) 256-626807-21-2025 Miscellaneous Notes* Telephone Encounter - Noemi Meier RN - 02/28/2025 1:[address] Martinez, renzo to try acupuncture. If she has someone she knows, that's fine or we can suggest someone. Elise Meier RN documented in this encounterMercy Health St. [facility]07-20-2025 Discharge summary [facility] Medical Records Department [address] [place] [address] Emergency Department Summary 02/27/25 MR#: [id number] Acct: [id number] Name: LIZ ROBLES Rep #:[id number] : 1955 69 From: Cuba Castro MD [...] Type Severity Reaction Status Date / Time Mdkcblv-UYA-EsL Reductase AdvReac Pain in Verified 02/27/25 10:20 [...] fecal impaction. With nurse in room as earring maker patient was digitally disimpacted. There was significant [...] Babita Morataya NP Referrals: Babita Morataya NP, CASH POSTING CLERK-C [Primary Care Provider] - As Needed Activity Restrictions/Additional Instructions: 1. Recommend increase fluid intake especially with the hot muggy weather this summer. 2. Recommend 1 cap of MiraLAX daily for the next week. If you start to have loose stools back down to half Per day Print Language: Lithuanian Disposition Disposition: Home, Self Care What to do if you have Problems For any increased pain, shortness of breath, bleeding, nausea or vomiting, chestpain, or any unexpected problems, contact your Primary Care Provider. Call [facility] ([phone]) or report tothe closest Emergency Room. Call 911 if necessary. 02/27/25 1048 Cosigner Signature (if applicable): CC: CASH POSTING CLERK-C Babita Morataya ~ Signed [facility]07-17-2025 Telephone encounter Note* Telephone Encounter - Thais Davis - 02/24/2025 3:02 PM EDT Thank you. [facility] Work Phone: [phone]) 618-430207-17-2025 Miscellaneous Notes* Telephone Encounter - Thais Davis [...] Q3WK CARBO/TAXOL/KEYTRUDA, patient should have Keytruda/Onpro only. [place] orders differ. Please advise for scheduling. Thank you. documented in this encounterMercy Health St. [facility]07-17-2025 Telephone encounter Note * Telephone Encounter - Jennifer Burk RN - 02/24/2025 2:14 PM EDT Patient will go onto adriamycin, cytoxan, keytruda, & neulasta Q21 days x 4 cycles. Jennifer Burk RN [facility]07-17-2025 Telephone encounter Note* Telephone Encounter - Thais Davis - 02/24/2025 1:55 PM EDT Please advise of treatment after 04/06. Appointment notes state after C4-4 of Q3WK CARBO/TAXOL/KEYTRUDA, patient should have Keytruda/Onpro only. [place] orders differ. Please advise for scheduling. Thank you. [facility]07-15-2025 NoteSelect [facility]07-15-2025 History of Present illness Narrative* Emilie Lennon [...] Living3 SAB0 IAB0 Ectopic0 Multiple0 Live Births0 Vice President Risk Management History LMP: LMP Unknown, Postmenopausal Age at Menarche: 11 Age at First : Age at Menopause: 44 Vice President Risk Management History Comments: Sexual Activity: No sexual activity data on record; No partner data on record Contraception: No contraception data on record PAST MEDICAL HISTORY Diagnosis Date Breast cancer (HCC) 11/2024 left breast Essential hypertension PAST SURGICAL HISTORY Procedure Laterality Date BX OF BREAST; INCISIONAL Left 11/2024 [id number]. hx of eye surgery FAMILY HISTORY Problem [...] As of Date: 02/22/2025 Allergen Noted Reaction WYKERKD-IGV-MMC REDUCTASE INHIBIT*12/13/2024 Myalgia Fully Assessed 02/22/2025 REVIEW [...] Level: 4 - Moderate documented in this encounterMercy Health St. [facility]07-14-2025 Telephone encounter Note * Telephone Encounter - Jennifer Burk RN - 02/21/2025 4:36 PM EDT Spoke to patient. Reviewed gabapentin instructions. Patient will continue cold socks/gloves. Jennifer Burk RN [facility]07-14-2025 Miscellaneous Notes* Telephone Encounter - Jennifer Burk RN - 02/21/2025 4:36 PM EDT Spoke to patient. Reviewed gabapentin instructions. Patient will continue cold socks/gloves. Jennifer Burk RN * Telephone Encounter - Jennifer Burk RN - 02/21/2025 11:25 AM EDT Care Coordination Triage Note Cancer [place] Situation: Patient reports Other pain in her [...] today. Fevers/chills: denies Rash: looking pretty nasty. Food Tester gave her a stronger ointment to use. Patient stated theointment from the emergency nurse seems to be helping more with the [...] 21, 2025 11:25 AM documented in [facility] Telephone encounter Note * Telephone Encounter - Jennifer Burk RN - 02/21/2025 11:25 AM EDT Care Coordination Triage Note Cancer [place] Situation: Patient reports Other pain in her [...] today. Fevers/chills: denies Rash: looking pretty nasty. Food Tester gave her a stronger ointment to use. Patient stated theointment from the emergency nurse seems to be helping more with the itching. Patient isn't sure whichcream she is using but can send us a message through . Patient stated she took a medrol dose pack 02/09. Developed left sided foot pain a week later. Recommendations: Per RNCC, patient directed to: Manage at home. Instructions provided. Will discuss with Dr. Michelle Burk RN February 21, 2025 11:[address] [facility]07-11-2025 Telephone encounter Note* Telephone Encounter - Yesi Figueroa RN - 02/18/2025 3:58 PM EDT Spoke with patient. Agreeable to 02/22 with SW instead. Yesi Figueroa RN [facility]07-11-2025 Miscellaneous Notes* Telephone Encounter - Yesi [...] surgeries. Elizabeth Cleaning RN documented in this encounterMercy Health St. [facility]07-11-2025 Telephone encounter Note * Telephone Encounter [...] does not do surgeries. Elizabeth Cleaning RN [facility]07-02-2025 [facility] History of Present illness Narrative* Erin Hernandez RN - 02/09/2025 9:03 AM EDT Patient states when my port was accessed yesterday, it burned and it kept burning after she took it out. Chest xray complete. Port with correct placement. c/o muscle spasm around port site this morning. Applied warm compress; pt reports improvement and denies any complaints at this time. documented in this encounterMercy Health St. [facility]07-01-2025 History of Present illness Narrative* Thais [...] PATIENT PRESENTS WITH AN IMPLANTABLE OR ATTACHED FIELD REPRESENTATIVES DIRECTOR: No RADIOLOGY DEPARTMENT: General X-ray: Exam(s) Completed: Chest X-Ray PERIPHERAL IV DATA: Not applicable SIGNED BY: RT Aron(R) February 08, 2025 8:29 PM documented in this encounterMercy Health St. 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 ER/RI both negative. HER2 2+. Nonamplified on FISH [...] 1.00 - 4.00 k/uL 1.28 1.46 1.62 Potter% % 4.8 4.4 5.6 Abs Potter <0.87 k/uL 0.17 0.13 0.18 Eosin% % [...] Stage IIB (cT2, cN0, cM0, G2, ER-, RI-, HER2-) - Signed by Orvilel Martinez DO on 01/04/[address] Martinez's [...] visit. Sonali Love APRN.SHAQ documented in this encounterMercy Health St. [facility]06-27-2025 Telephone encounter Note * Telephone Encounter [...] on file Marital status: Parent(s): Child/Children: Yes. infant childcare provider arrangements needed: No Siblings: 1 brothers Home Health Provider: No Community Services: No Antoinette Identified: Yes Amish/Spirituality: Oriental Orthodox Are these practices or beliefs that may affect or influence treatment? No EMPLOYMENT/FINANCIAL/HEALTH INSURANCE: Employment: Employed: [employer], works 3 days/week. Income source: Social Security incremental income (SSI) and Income Insurance: Medicare with co-insurance Prescription coverage: Yes Is the patient appropriate for referral to [facility] COBRA Assistance program? No Financial Distress: No : [...] EPIC: No Health Care Durable Power of School Superintendent: No and provided Living Will information for patient to review Scanned into EPIC: No Guardianship: No Scanned into EPIC:NA Reasons Advanced Directives were not Addressed: Patient not interested due to spouse/next of kin ismedical decision maker Advance Care Planning Goals of Care Date of Discussion: 02/04/2025 DIscussion Participants: Liz Robles Clinical: SHANICE Nina In this encounter: Explained the [place] Order of Decision Makers and patient expressed understanding. and Patient sharedthey would like , Artem Robles, to make health care decisions for them if they are not ableto themselves. COPING STATUS: Stress: Not on file Coping Strengths: supportive relationships with immediate family, with friends, with extended family, with neighbors, and with sabianist spirituality successful managing past crises hopefulness self [...] treatment for triple negative breast cancer. She reportsshe has no side effects from treatments she's [...] receives support from her , daughter, friends, sabianist family and neighbors. Pt reports she relies on her Shinto antoinette a lot during this time and reports she believes her lackof side effects is d/t prayer. She reports she has received a significant number of phone calls from people in the sabianist as well as her family checking on her and letting her know how much they care. Pt reports the outpouring of support has been overwhelming and humbling. Pt reports she continues to work 3 days per week and has been able to maintain her life as it was prior to beginning treatment. 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06-27-2025 Miscellaneous Notes* Telephone Encounter - Deborah Villaviecncio LISW - 02/04/2025 2:13 PM EDT PSYCHOSOCIAL [...] on file Marital status: Parent(s): Child/Children: Yes. infant childcare provider arrangements needed: No Siblings: 1 brothers Home Health Provider: No Community Services: No Antoinette Identified: Yes Amish/Spirituality: Oriental Orthodox Are these practices or beliefs that may affect or influence treatment? 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 Income source: Social Security incremental income (SSI) and Income Insurance: Medicare with co-insurance Prescription coverage: Yes Is the patient appropriate for referral to [facility] COBRA Assistance program? No Financial Distress: No : No FOOD INSECURITY Within the past year, have you worried about how you would buy or obtain food? No LIVING ARRANGEMENTS: Type: House- independent colonial Resides with: Artem Transportation Needs: Not on file FUNCTIONAL [...] EPIC: No Health Care Durable Power of School Superintendent: No and provided Living Will information for patient to review Scanned into EPIC: No Guardianship: No Scanned into EPIC:NA Reasons Advanced Directives were not Addressed: Patient not interested due to spouse/next of kin ismedical decision maker Advance Care Planning Goals of Care Date of Discussion: 02/04/2025 DIscussion Participants: Liz Robles Clinical: SHANICE Nina In this encounter: Explained the [place] Order of Decision Makers and patient expressed understanding. and Patient sharedthey would like Artem, to make health care decisions for them if they are not ableto themselves. COPING STATUS: Stress: Not on file Coping Strengths: supportive relationships with immediate family, with friends, with extended family, with neighbors, and with sabianist spirituality successful managing past crises hopefulness self [...] receives support from her , daughter, friends, sabianist family and neighbors. Pt reports she relies on her Shinto antoinette a lot during this time and reports she believes her lackof side effects is d/t prayer. She reports she has received a significant number of phone calls from people in the sabianist as well as her family checking on her and letting her know how much they care. Pt reports the outpouring of support has been overwhelming and humbling. Pt reports she continues to work 3 days per week and has been able to maintain her life as it was prior to beginning treatment. 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 [facility]06-26-2025 Telephone encounter Note * Telephone Encounter - Thais Davis - 02/03/2025 7:58 AM EDT Schedule updated [facility] Work Phone: [phone] Miscellaneous Notes* Telephone Encounter - Thais Davis [...] Please advise Sylwia Sanchez documented in this encounterMercy Health St. [facility]06-18-2025 Telephone encounter Note * Telephone Encounter - Noemi Meier RN - 01/26/2025 9:33 AM EDT Spoke with pharmacist, Harpreet Lopez. D1 should be 3-4 hours and D8, D15 are 2 hours. Elise Meier RN [facility] Work Phone: 1(748) 748-657706-18-2025 Telephone encounter Note* Telephone Encounter - Sylwia Sanchez - 01/26/2025 8:27 AM EDT Patient called to schedule Sophie treatments.She advised her D! Should not be 7 hrs that it takes no more than 3 hrs. Please advise Sylwia Sanchez [facility]06-13-2025 Telephone encounter Note* Telephone Encounter - Fiordaliza Perdomo LPN - 01/21/2025 2:56 PM EDT Spoke with pt. Informed Tylenol for the pain, If over the weekend she notices any pus coming from anywhere around the port that she should go to the ER. Pt. Voiced understanding. Fiordaliza Perdomo LPN [facility]06-13-2025 Miscellaneous Notes* Telephone Encounter - Fiordaliza [...] PM EDT Care Coordination Triage Note Cancer [place] Situation: Patient reports Other pain at port [...] instructions. No fever or chills. Port site scrap kettle tender, was placed on 01/10/25, stiches did [...] for it. Please advise. documented in this encounterMercy Health St. [facility]06-13-2025 Telephone encounter Note * Telephone Encounter - Orville Martinez DO - 01/21/2025 2:52 PM EDT Agree. Tylenol for pain control. ED evaluation if over the weekend she sees any pus coming from anywhere around the port. Doubt that will happen. I think it is just healing itself and right now. Orville Martinez DO [facility]06-13-2025 Telephone encounter Note* Telephone Encounter - Noemi Meier RN - 01/21/2025 1:46 PM EDT Care Coordination Triage Note Cancer [place] Situation: Patient reports Other pain at port [...] instructions. No fever or chills. Port site scrap kettle tender, was placed on 01/10/25, stiches did fall out, was tender when used for treatment on 01/18/25 but states look better than it did on Tu, bruising and redness better, using a band-aid on site to decrease friction from clothing. Patient aware that I will update Dr. Martinez. Reminded of after hours number and reviewed sign/symptoms to call about. Recommendations: Per RNCC, patient directed to: Manage at home. Instructions provided. Will update Dr. Martinez and call back if any further instructions. Noemi Meier RN January 21, 2025 1:[address] [facility] Work Phone: 1([phone]) 458-424406-13-2025 Telephone encounter Note* Telephone Encounter - Dena Merchant Thais - 01/21/2025 12:50 PM EDT Patient calls stating she has a throbbing ache from her port. She is asking if this is okay and what she can take for it. Please advise. [facility] Work Phone: [phone]) 286-178106-11-2025 Telephone encounter Note* Telephone Encounter - Jennifer [...] after hours number protocol. Jennifer Burk RN [facility]06-11-2025 Miscellaneous Notes* Telephone Encounter - Jennifer [...] EDT Patient returned call. Care coord line leonel busy * Telephone Encounter - Jennifer Burk RN - 01/19/2025 9:58 AM EDT CYCLE 1/DAY 1 POST TREATMENT CALL Today's date: January 19, 2025 Treatment Regimen: Carboplatin/Paclitaxel/Keytruda C1D1 Date: 01/18/25 Called patient to follow-up on symptom management, no answer. Left a VM requesting a call back frompatient. Jennifer Burk RN documented in this encounterMercy Health St. [facility]06-11-2025 Telephone encounter Note * Telephone Encounter - Thais Davis - 01/19/2025 10:13 AM EDT Patient returned call. Care coord line leonel busveronica [facility] Work Phone: [phone]) 976-549406-11-2025 Telephone encounter Note* Telephone Encounter - Jennifer Burk RN - 01/19/2025 9:58 AM EDT CYCLE 1/DAY 1 POST TREATMENT CALL Today's date: January 19, 2025 Treatment Regimen: Carboplatin/Paclitaxel/Keytruda C1D1 Date: 01/18/25 Called patient to follow-up on symptom management, no answer. Left a VM requesting a call back frompatient. Jennifer Burk RN [facility]06-10-2025 Telephone encounter Note* Telephone Encounter - Dania Mireles LPN - 01/18/2025 8:50 AM EDT Pt notified. Dania Mireles LPN [facility]06-10-2025 Miscellaneous Notes* Telephone Encounter - Dania Mireles LPN - 01/18/2025 8:50 AM EDT Pt notified. Dania Mireles LPN * Telephone Encounter - Thais Davis - 01/18/2025 8:39 AM EDT Scheduled first avail with Vice President Risk Management - 03/04. Patient will informed while here for treatment today 01/18. * Telephone Encounter - Winsome Soriano LPN - 01/17/2025 3:44 PM EDT Patient is aware of ultrasound results. PSS- please contact patient to schedule with FLAT BED OPERATOR here. Winsome Soriano LPN * Telephone Encounter - Orville Martinez DO - 01/17/2025 3:19 PM EDT The ultrasound of her uterus showed a endometrial polyp. This will need to be evaluated by gynecology. Referral order filed. Orville Martinez DO documented in this encounterMercy [facility] St. [facility]06-10-2025 Telephone encounter Note * Telephone Encounter - Thais Davis - 01/18/2025 8:39 AM EDT Scheduled first avail with Vice President Risk Management - 03/04. Patient will informed while here for treatment today 01/18. [facility] Work Phone: [phone]) 707-584406-09-2025 Progress note* Result Encounter Note - Sav Gupta MS - 01/17/2025 4:31 PM EDT Genetic test results Liz Robles's Multi-cancer panel through [employer] was negative for a pathogenic variant. 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 A VUS is a genetic variant for which insufficient data exists in order to determine if it is associated with disease (deleterious mutation) or is a normal genetic variant which can occur in the population without disease (benign polymorphism). Please see [employer] message for further discussion. Sav Gupta MS, [facility] [place], Certified Genetic Counselor [facility] Work Phone: [phone]) [phone] Miscellaneous Notes* Result Encounter Note - Sav Gupta MS - 01/17/2025 4:31 PM EDT Genetic test results Liz Robles's Multi-cancer panel through [employer] was negative for a pathogenic variant. 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 A VUS is a genetic variant for which insufficient data exists in order to determine if it is associated with disease (deleterious mutation) or is a normal genetic variant which can occur in the population without disease (benign polymorphism). Please see [employer] message for further discussion. Sav Gupta MS, [facility] [place] Licensed, Certified Genetic Counselor documented in this encounterMercy Health St. [facility]06-09-2025 Telephone encounter Note * Telephone Encounter - Winsome Soriano LPN - 01/17/2025 3:44 PM EDT Patient is aware of ultrasound results. PSS- please contact patient to schedule with FLAT BED OPERATOR here. Winsome Soriano LPN [facility]06-09-2025 Telephone encounter Note* Telephone Encounter - Orville Martinez DO - 01/17/2025 3:19 PM EDT The ultrasound of her uterus showed a endometrial polyp. This will need to be evaluated by gynecology. Referral order filed. Orville Martinez DO [facility]06-09-2025 NoteSelect [facility]06-09-2025 History of Present illness Narrative* Jennifer Burk RN - 01/17/2025 11:57 AM EDT This visit was completed by phone. Gas Inspector Pre Chemo Patient identified by name and date of . YES Confirmed date and time for chemotherapy ? YES Other appointments (labs, imaging) discussed? YES Discussed where to park (engineering and development director), charge for parking YES Discussed where to [...] and from treatment? Patient will have a ride/local flatbed driver. Discussed why it is important to [...] N/A Jennifer Burk RN documented in this encounterMercy Health St. [facility]06-06-2025 Telephone encounter Note * Telephone Encounter - Jennifer Burk RN - 01/14/2025 1:14 PM EDT Patient informed of Dr. Martinez's response, stated understanding. Jennifer Burk RN [facility]06-06-2025 Miscellaneous Notes* Telephone Encounter - Jennifer [...] cream. Jennifer Burk RN documented in this encounterMercy Health St. [facility]06-06-2025 Telephone encounter Note * Telephone Encounter - Orville Martinez DO - 01/14/2025 12:23 PM EDT Recommend she not use omeprazole if possible. Use Pepcid instead. Orville Martinez DO [facility]06-06-2025 Telephone encounter Note* Telephone Encounter - Jennifer Burk RN - 01/14/2025 11:24 AM EDT Patient does not have antiemetic on file. Order pended for compazine. Can patient continue omeprazole? She uses PRN. Declined emla cream. Jennifer Burk RN [facility]06-06-2025 Telephone encounter Note* Telephone Encounter - Jennifer Burk RN - 01/14/2025 11:23 AM EDT Patient decided that she is not going to use the paxman system. She will proceed with treatment next week. Jennifer Burk RN [facility]06-06-2025 Miscellaneous Notes* Telephone Encounter - Jennifer Burk RN - 01/14/2025 11:23 AM EDT Patient decided that she is not going to use the paxman system. She will proceed with treatment next week. Jennifer Burk RN * Telephone Encounter - Jennifer Burk RN - 01/13/2025 10:11 AM EDT Patient informed that [place] has a Paxman cooling system. Patient was [...] to patient. Discussed the Paxman option at [facility]. Discussed the portable system options like [...] someone regarding cooling cap. documented in this encounterMercy Health St. [facility]06-06-2025 History of Present illness Narrative* Elodia [...] PATIENT PRESENTS WITH AN IMPLANTABLE OR ATTACHED FIELD REPRESENTATIVES DIRECTOR: No RADIOLOGY DEPARTMENT: Ultrasound PERIPHERAL IV DATA: Not applicable SIGNED BY: Elodia Ramírez RDMS January 14, 2025 8:59 AM documented in this encounterMercy Health St. [facility]06-06-2025 NoteSelect [facility]06-05-2025 Telephone encounter Note* Telephone Encounter - Jennifer Burk RN - 01/13/2025 10:11 AM EDT Patient informed that [place] has a Paxman cooling system. Patient was given the rep's information to contact. Patient will let our office know what she decides to do. Jennifer Burk RN [facility]06-05-2025 Telephone encounter Note* Telephone Encounter - Orville Martinez DO - 01/13/2025 9:41 AM EDT The following approved medication requests have been transmitted electronically. Requested Prescriptions No prescriptions requested or ordered in this encounter Orville Martinez DO [facility]06-05-2025 Telephone encounter Note* Telephone Encounter - Jennifer Burk RN - 01/13/2025 8:46 AM EDT Called and spoke to patient. Discussed the Paxman option at [facility]. Discussed the portable system options like penguin [...] pended to Dr. Martinez. Jennifer Burk RN [facility]06-05-2025 Telephone encounter Note* Telephone Encounter - Thais Davis - 01/13/2025 8:20 AM EDT Patient is requesting to speak with someone regarding cooling cap. [facility] Work Phone: [phone]) 553-682206-05-2025 NoteSelect [facility]05-30-2025 Telephone encounter Note* Telephone Encounter - Thais Davis - 01/07/2025 8:24 AM EDT 3 cycles entered Start email sent [facility] Work Phone: 1([phone]) 696-449905-30-2025 Miscellaneous Notes* Telephone Encounter - Thais Davis - 01/07/2025 8:24 AM EDT 3 cycles entered Start email sent * Telephone Encounter - Valorie Medellin - 01/04/2025 3:31 PM EDT AVS 01/04 IR port placement at [place] or - patient prefers the date of 01/14/2025.SCHEDULED 01/10 01/14 NOT AVAILABLE Labs today.DONE Begin weekly Carbo/Taxol the week of 01/17/2025. May be straight back for cycle 1. Will need CBC/CMP/MAG/TSH/T4/Cortisol for D1. Every 6 weeks- TSH/T4/Cortisol. Keytruda every 3 weeks. Cycle 2- OV/CBC/CMP/MAG. All orders are in [place]. CHEMO ED IS SCHEDULED Valorie Medellni * Telephone Encounter - Ovidio Garcias - 12/21/2024 8:49 AM EDT sent my chart message to patient , was instructed to have patient call central scheduling to schedule MRI of Breast and Liver Ovidio Garcias documented in this encounterMercy Health St. [facility]05-29-2025 NoteSelect [facility]ty [facility]05-29-2025 History of Present illness Narrative* Yesi Funez LPN - 01/06/2025 11:38 AM EDT Patient was referred by: Babita Morataya APRN.RADIOLOGY EQUIPMENT SERVICER Did patient bring outside records to appt [...] work: No Is the patient active on [employer] Yes Electronically Signed By: Yesi Funez LPN [...] Date BX OF BREAST; INCISIONAL Left 11/2024 [id number]. hx of eye surgery Social History Tobacco Use Smoking status: Never Smokeless tobacco: Never Vaping Use Vaping status: Never Used Substance Use Topics Alcohol use: Not Currently Drug use: Not Currently * Kimmie Colby A, DO - 01/06/2025 11:30 AM EDT NEW [...] breast lump and underwent diagnotic imaging, at [place], on 11/26/2024 which showed a possible asymmetry in the left breast. Targeted US revealed a 2.6 x 1.4 x 2.3 cm, at 10:00, 4-5 cm from the nipple. US of the axilla showed a couple lymph nodes without definite abnormal morphology. Diagnosis was made at [facility] by means of ultrasound-guided core biopsy of Left breast on 12/01/2024. 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 [employer] Employment status: still working Social History Tobacco [...] cancer:Negative Pancreatic cancer: Negative OBSTETRIC RELATED HISTORY: Vice President Risk Management History LMP: LMP Unknown, Postmenopausal Age at Menarche: 11 Age at First : Age at Menopause: 44 Vice President Risk Management History Comments: Sexual Activity: No sexual activity data on record; No partner data on record Contraception: No contraception data on record PAST MEDICAL HISTORY: PAST MEDICAL HISTORY Diagnosis Date Breast cancer (HCC) 11/2024 left breast Essential hypertension PAST SURGICAL HISTORY: PAST SURGICAL HISTORY Procedure Laterality Date BX OF BREAST; INCISIONAL Left 11/2024 [id number]. hx of eye surgery ALLERGIES Allergen Reactions Jworkhf-Iol-Uue Red* Myalgia CURRENT MEDICATIONS: iv contrast (will [...] Invasive carcinoma with apocrine features, at least Stanley grade 2; see comment. at 1554 EDT [...] External Control Present and Stained as Expected RI status Negative (less than 1%) RI % staining <1 Progesterone Receptor (Staining Intensity) [...] 2nd look US of the axilla recommended. ER-RI-HER2- [id number]?M0 PLAN: DIAGNOSIS: (C50.212, Z17.1) Malignant neoplasm of [...] indications for neoadjuvant versus adjuvant systemic therapy. Stephaniesaw Dr. Martinez to start OLGA for TNBC [...] radiation. We discussed placement of a gamaliel cash accountant clip localized placed prior to surgery in [...] placed. We discussed options for reconstruction (implant/tissue labor supervisor vs. Autologous IRAIS free flap procedure). We discussed loss of sensation to the breast We discussed plastic/reconstructive surgery. She is scheduled to see Dr. Mock - but wishes to hold off today and see him after systemic therapy. LYMPH NODES We discussed management of her axilla. [place] lymph node biopsy is recommended. We discussed [...] prior to completion of systemic therapy at [facility] time we will repeat MMG, US and MRI and finalize surgery She will need to see Dr. Mock at time of regroup Future Appointments Date Time Provider Department Center 01/14/2025 7:45 AM US [facility] WSTR MOB 2 RUSWS Rosymarc Coronado 01/14/2025 10:30 AM Wstr, Gas Inspector [facility] HEMSEBASTIAN Coronado All questions were answered and the patient had no further concerns at this time. Liz Robles was given our contact information if she has any further questions or concerns. Kimmie Colby DO, FACS Breast Surgeon [facility] cc: Babita Morataya APRN.SHAQ Martinez documented in this encounterMercy Health St. Charles [facility]05-29-2025 NoteSelect Medical Specialty [facility]05-29-2025 History of Present illness Narrative* Yesi Dawkins [...] PATIENT PRESENTS WITH AN IMPLANTABLE OR ATTACHED FIELD REPRESENTATIVES DIRECTOR: No ALLERGIES: Reviewed and unchanged CONTRAST ALLERGY: NO. EXAM: MRI - CONTRAST TYPE: GROUP II PERIPHERAL IV DATA: Ambulatory: A peripheral IV was started in the Right antecubital site with a Angio cath: 22 gauge. RADIOLOGY DEPARTMENT: MR; Exam(s) Completed: Body: Liver (routine). Lavender Administered: No SIGNATURE: [facility] DARVIN Hoskins PATIENT NAME: Liz Robles DATE: January 06, 2025 TIME: 8:57 AM documented in this encounterMercy Health St. [facility]05-29-2025 NoteSelect Medical Specialty [facility]05-28-2025 Telephone encounter Note* Telephone Encounter - Winsome Soriano LPN - 01/05/2025 12:16 PM EDT I spoke with the patient. She is seeing Dr. Colby tomorrow and will discuss the need for another biopsy vs having a mastectomy or a lumpectomy. Winsome Soriano LPN [facility]05-28-2025 Miscellaneous Notes* Telephone Encounter - Winsome [...] to speak with clinical. documented in this encounterMercy Health St. Charles [facility]05-28-2025 Telephone encounter Note * Telephone Encounter - Elida Olson, RN - 01/05/2025 9:21 AM EDT Called patient to assist with left breast axilla us & left breast MRI Bx appt per Dr. Rose. Patient declined the appt at this time. Patient wants to discuss the recommendations with Dr. Hirsch first. Patient will call back if Dr. Hirsch agrees with the recommendations. Dr. Rose is aware. [facility] Work Phone: [phone] Telephone encounter Note* Telephone Encounter - Valorie Medellin - 01/05/2025 9:21 AM EDT This appt has been rescheduled as directed. Valorie Medellin [facility]05-28-2025 Miscellaneous Notes* Telephone Encounter - Valorie [...] you. Jennifer Burk RN documented in this encounterMercy Health St. Charles Hospital05-28-2025 Miscellaneous Notes* Telephone Encounter - Elida [...] Dr. Rose is aware. documented in this encounterMercy Health St. Charles [facility]05-28-2025 Telephone encounter Note * Telephone Encounter - Dena MerchantThais - 01/05/2025 8:57 AM EDT Patient called stating that she received a call regarding results from MRI yesterday. She was informed there was another spot on left breast and another biopsy would be needed along with armpit. She states she needs some more guidance with having a mastectomy or lumpectomy. Patient requested to speak with clinical. [facility] Work Phone: [phone]) 476-459605-28-2025 Telephone encounter Note* Telephone Encounter - Jennifer Burk RN - 01/05/2025 8:32 AM EDT Patient is schedule for port placement on Friday, the same day as her chemo education. Please move her out to Friday or next week if either of those days work for her. Thank you. Jennifer Burk RN [facility]05-27-2025 Telephone encounter Note* Telephone Encounter - [...] looks normal. Order filed. Orville Martinez DO [facility]05-27-2025 Note* Addendum Note - Orville Martinez DO - 01/04/2025 5:06 PM EDTAddended by: ORVILLE MARTINEZ on: 01/04/2025 05:06 PM Modules accepted: Orders [facility]05-27-2025 Miscellaneous Notes* Addendum Note - Orville Martinez DO - 01/04/2025 5:06 PM EDTAddended by: ORVILLE MARTINEZ on: 01/04/2025 05:06 PM Modules accepted: Orders documented in this encounterMercy Health St. Charles Hospital05-27-2025 Miscellaneous Notes* Telephone Encounter - Orville [...] filed. Orville Martinez DO documented in this encounterMercy Health St. Charles [facility]05-27-2025 Telephone encounter Note * Telephone Encounter - Noemi Meier RN - 01/04/2025 3:37 PM EDT Met with patient and introduced myself. Patient was given a My Journey binder with chemocare information, office contact information, thermometer, and additional chemotherapy resource booklets. Patient aware a nurse will review on scheduled appointment date. Elise Meier RN [facility] Work Phone: [phone]) 484-114305-27-2025 Miscellaneous Notes* Telephone Encounter - Noemi Meier RN - 01/04/2025 3:37 PM EDT Met with patient and introduced myself. Patient was given a My Journey binder with chemocare information, office contact information, thermometer, and additional chemotherapy resource booklets. Patient aware a nurse will review on scheduled appointment date. Elise Meier RN documented in this encounterMercy Health St. [facility]05-27-2025 Telephone encounter Note * Telephone Encounter [...] Cycle 2- OV/CBC/CMP/MAG. All orders are in [place]. CHEMO ED IS SCHEDULED Valorie Medellin [facility]05-27-2025 History of Present illness Narrative* Orville [...] apocrine features at least Mitchel grade 2. ER/RI both negative. HER2 2+. Nonamplified on FISH [...] hypertension PAST SURGICAL HISTORY Procedure Laterality Date BY-VXSMNPYDBCQ-KVZQHAFC. hx of eye surgery lisinopril (ZESTRIL) 5 mg tablet Take 2.5 mg by mouth once daily. omeprazole (PRILOSEC) 40 mg capsule Take 40 mg by mouth once daily. ALLERGIES Allergen Reactions Xdgploq-Fbv-Unm Red* Myalgia Social History Tobacco Use Smoking [...] was discussed with the patient or authorized volunteer patient representative. The patient or authorized volunteer patient representative has agreed to proceed with the [...] Stage IIB (cT2, cN0, cM0, G2, ER-, RI-, HER2-) - Signed by Orville Martinez DO [...] which included preparing to see the patient, sdnu-ax-tnyd patient care, completing clinical documentation, performing a medically appropriate examination, counseling and educating the patient/family/caregiver, ordering medications, tests, or p rocedures, communicating with other HCPs (not separately reported), and communicating results to the patient/family/caregiver. Orville Martinez DO documented in this encounterMercy Health St. Charles [facility]05-27-[address]25 [facility]05-27-2025 History of Present illness Narrative* Chung [...] PATIENT PRESENTS WITH AN IMPLANTABLE OR ATTACHED FIELD REPRESENTATIVES DIRECTOR: No ALLERGIES: Reviewed and unchanged CONTRAST ALLERGY: NO. EXAM: MRI - CONTRAST TYPE: GROUP II PERIPHERAL IV DATA: Ambulatory: A peripheral IV was started in the Right antecubital site with a Angio cath: 22 gauge. RADIOLOGY DEPARTMENT: MR; Exam(s) Completed: Chest: Breast. Lavender Administered: No SIGNATURE: RT Daysi(R) PATIENT NAME: Liz Robles DATE: January 04, 2025 TIME: 10:07 AM documented in this encounterMercy Health St. [facility]05-27-2025 NoteHNO ID: [id number] Author: CHUNG JACKSON RT(Laura) Service: Radiology Author Type: Technologist Type: Progress [...] PATIENT PRESENTS WITH AN IMPLANTABLE OR ATTACHED FIELD REPRESENTATIVES DIRECTOR: No ALLERGIES: Reviewed and unchanged CONTRAST ALLERGY: NO. EXAM: MRI - CONTRAST TYPE: GROUP II PERIPHERAL IV DATA: Ambulatory: A peripheral IV was started in the Right antecubital site with a Angio cath: 22 gauge. RADIOLOGY DEPARTMENT: MR; Exam(s) Completed: Chest: Breast. Lavender Administered: No SIGNATURE: RT Daysi(R) PATIENT NAME: Liz Robles DATE: January 04, 2025 TIME: 10:07 [id number] Telephone encounter Note* Telephone Encounter - Yesi Funez LPN - 12/27/2024 12:26 PM EDT Called and spoke to patient regarding her upcoming appointment on 01/06 with . Asked pt where she received her imaging and biopsy at. She stated biopsy was done in office at [place]. Her imaging was done at [facility]. I informed her I will be requesting her imaging for review. She verbalized understanding. Imaging received and what (MMG/US/MRI - radiology reviewed yet? Requesting from [facility] Pathology slides sent / reviewed? In [facility] Consults: Breast psych not this time Med onc yes Rad onc yes Plastics no pt declined. MRI not as of yet order is in system. Pt thanked me for calling her. Yesi Funez LPN [facility] Work Phone: [phone] Miscellaneous Notes* Telephone Encounter - Yesi Funez LPN - 12/27/2024 12:26 PM EDT Called and spoke to patient regarding her upcoming appointment on 01/06 with . Asked pt where she received her imaging and biopsy at. She stated biopsy was done in office at [place]. Her imaging was done at [facility]. I informed her I will be requesting her imaging for review. She verbalized understanding. Imaging received and what (MMG/US/MRI - radiology reviewed yet? Requesting from [facility] Pathology slides sent / reviewed? In [facility] Consults: Breast psych not this time Med onc yes Rad onc yes Plastics no pt declined. MRI not as of yet order is in system. Pt thanked me for calling her. Yesi Funez LPN documented in this encounterMercy Health St. [facility]05-13-2025 Telephone encounter Note * Telephone Encounter - Thais Davis - 12/21/2024 11:35 AM EDT Spoke with patient who stated she is currently out of the [place] and received another mc message with number to call imaging and will do that when she is able. [facility] Work Phone: [phone]) [phone] Miscellaneous Notes* Telephone Encounter - Thais Davis - 12/21/2024 11:35 AM EDT Spoke with patient who stated she is currently out of the country and received another mc message with number to call imaging and will do that when she is able. * Telephone Encounter - Thais Davis - 12/21/2024 8:42 AM EDT Please review and advise on My Chart request. Of course 01/03 is not going to happen due to it beinga holiday. If office visit needed, would this be in person or phone call. Thank you. documented in this encounterMercy Health St. [facility]05-13-2025 Telephone encounter Note * Telephone Encounter - Ovidio Garcias - 12/21/2024 8:49 AM EDT sent my chart message to patient , was instructed to have patient call central scheduling to schedule MRI of Breast and Liver Ovidio Garcias [facility]05-13-2025 Telephone encounter Note* Telephone Encounter - Thais Davis - 12/21/2024 8:42 AM EDT Please review and advise on My Chart request. Of course 01/03 is not going to happen due to it being hol. If office visit needed, would this be in person or phone call. Thank you. [facility]05-06-2025 History of Present illness Narrative* Sylvie [...] PATIENT PRESENTS WITH AN IMPLANTABLE OR ATTACHED FIELD REPRESENTATIVES DIRECTOR: No RADIOLOGY DEPARTMENT: CT; Exam(s) Completed: Chest Abdomen Pelvis PERIPHERAL IV DATA: Site assessment: Clean,Dry and Intact, Site disposition Discontinued SIGNED BY: RT Micheline(R) December 14, 2024 1:59 PM documented in this encounterMercy Health St. [facility]05-06-2025 NoteSelect Medical Specialty [facility]05-06-2025 NoteSelect Medical Specialty [facility]05-06-2025 NoteSelect [facility]05-06-2025 History of Present illness Narrative* Bing Garcias [...] PATIENT PRESENTS WITH AN IMPLANTABLE OR ATTACHED FIELD REPRESENTATIVES DIRECTOR: No RADIOLOGY DEPARTMENT: CT; Exam(s) Completed: Abdomen/Pelvis PERIPHERAL IV DATA: Not applicable SIGNED BY: RT Micheline(R) December 14, 2024 1:10 PM documented in this encounterMercy Health St. [facility]05-05-2025 Telephone encounter Note * Telephone Encounter - Lidia Hirsch DO - 12/13/2024 3:59 PM EDT [...] once they are available. Lidia Hirsch DO [facility] Work Phone: [phone]) 327-677205-05-2025 Miscellaneous Notes* Telephone Encounter - Lidia Hirsch DO - 12/13/2024 3:59 PM EDT [...] available. Lidia Hirsch DO documented in this encounterMercy Health St. [facility]05-05-2025 NoteSelect Medical Specialty Hospital [facility]05-05-2025 History of Present illness Narrative* Bing Matute RN - 12/13/2024 9:37 AM EDT Radiation Therapy - Nursing Note (Consult) PATIENT NAME: Liz Robles PATIENT December 13, 2024 [facility] FACILITY/LOCATION: [place] Chief Complaint: consult Reason for visit: Consult. Referring physician: Internal provider Dr Hirsch Subjective Data: see pain assessment Additional Data Do you want to see a Terrazzo Tile Maker? No Are you interested in information about fertility? No Status: Post-menopausal Stress Scale: On a scale of 0 to 10, what number best describes how much distress you have experienced in the past week?(0 being no distress and 10 being extreme distress) 10 Social work notified: Pt denied need to see social worker delinquency prevention at this time.Pt reports feeling anxious in [...] with apocrine features. It's ER negative (<1%), RI negative (<1%) and Her2 2+, FISH negative. CT scan of the C/A/P is scheduled tomorrow. ALLERGIES Allergen Reactions Zxgtfra-Oiv-Gih Red* Myalgia Current Outpatient Medications on File [...] Post-menopausal. PAST SURGICAL HISTORY Procedure Laterality Date [id number]. hx of eye surgery FAMILY HISTORY Problem [...] by: Sara Avalos MD cc: Babita Morataya [facility] [place] [address] documented in [address] encounterMercy Health St. [facility]05-05-2025 NoteSelect Medical Specialty [facility]05-01-2025 Telephone encounter Note* Telephone Encounter - Sylwia Sanchez - 12/09/2024 12:29 PM EDT Spoke with patient and scheduled with Dr. Avalos on 12/13 at 9:30 Sylwia Sanchez [facility]05-01-2025 Miscellaneous Notes* Telephone Encounter - Sylwia [...] 12/[address] Martinez, she leaves for [facility] on the so she wants [...] appt date: Authorizing: Lidia Hirsch DO in [facility] Referral: [id number] (Authorized) Expires: 12/08/2025 Priority: Routine Diagnosis: Breast cancer, stage 2, left (HCC) [C50.912] Malignant neoplasm of upper-inner quadrant of left breast in female, estrogen re... documented in this encounterMercy Health St. [facility]05-01-2025 Telephone encounter Note * Telephone Encounter - Winsome Soriano LPN - 12/09/2024 11:50 AM EDT See below. Patient also needs to see Dr. Avalos. Winsome Soriano LPN [facility]05-01-2025 Telephone encounter Note* Telephone Encounter - Valorie Medellin - 12/09/2024 8:53 AM EDT Spoke w pt and the next available is 12/[address] Martinez, she leaves for [facility] on the so she wants to kepp her scheduled appt. Valorie Medellin [facility]04-30-2025 Telephone encounter Note* Telephone Encounter - Winsome Soriano LPN - 12/08/2024 4:38 PM EDT PSS- please schedule patient to see Dr. Martinez sooner than 01/04/2025. She also needs to see Dr. Avalos. Winsome Soriano LPN [facility]04-30-2025 Telephone encounter Note* Telephone Encounter - Orville Martinez DO - 12/08/2024 4:[address] Hirsch spoke with me about her this after at the hospital. I should see her sooner than the . Orville Martinez DO [facility] Work Phone: [phone]) 239-226904-30-2025 Telephone encounter Note* Telephone Encounter - Liz Shane - 12/08/2024 1:03 PM EDT Talking with patient she would like to know the result of the other tests that were done for more details of her cancer diag. Can you please call her Dr. Hirsch or clinical staff. Liz Treviño [facility]04-30-2025 Miscellaneous Notes* Telephone Encounter - Liz Shane - 12/08/2024 1:03 PM EDT Talking with patient she would like to know the result of the other tests that were done for more details of her cancer diag. Can you please call her Dr. Hirsch or clinical staff. Liz Treviño documented in this encounterMercy Health St. [facility]04-30-2025 Telephone encounter Note * Telephone Encounter - Thais Davis - 12/08/2024 12:54 PM EDT Please review and advise - med onc and rad onc. Appt had been scheduled for Dr. Martinez for 01/04, however, once reviewed, we can reschedule if needed CONSULT TO ONCOLOGY Status: Needs Scheduling Requested appt date: Authorizing: Lidia Hirsch DO in [facility] Referral: [id number] (Authorized) Expires: 12/08/2025 Priority: Routine Diagnosis: Breast cancer, stage 2, left (HCC) [C50.912] Malignant neoplasm of upper-inner quadrant of left breast in female, estrogen re... [facility] Work Phone: 1(332) 635-823604-30-2025 NoteSelect Medical Specialty Hospital - [facility]04-30-2025 History of Present illness Narrative* Lidia Hirsch DO - 12/08/2024 12:51 PM EDT Images from the original note were not included. GENERAL SURGERY FOLLOW UP Liz is a 69-year-old female presenting for follow-up on left breast core needle biopsy results. Her accompanies her today. She was last seen in office in [place] one week ago for a left breast [...] paresthesia. Liz has upcoming travel plans to [facility] from the to the and a fishing trip to [place] mid-January, which she is considering canceling. She [...] was discussed with the patient or authorized volunteer patient representative. The patient or authorized volunteer patient representative has agreed to proceed with the [...] this limited material. Results of quantitative ER, RI, and HER2 testing will follow in a linked report. Dr. Amanda Valencia has also reviewed this case and agrees with the diagnosis. Component ER status Negative (less than 1%) ER % staining <1 Estrogen Receptor (Staining Intensity) Not Applicable Estrogen Receptor Internal Control Present and Stained as Expected Estrogen Receptor External Control Present and Stained as Expected RI status Negative (less than 1%) RI % staining <1 Progesterone Receptor (Staining Intensity) [...] and Dr. Avalos, radiation oncologist, both in [place] for furtherevaluation and treatment planning. - Discussed [...] 08, 2024 12:56 PM documented in this encounterMercy Health St. [facility]04-23-2025 NoteSelect Medical Specialty [facility]04-23-2025 NoteSelect Medical Specialty Hospital - [facility]04-23-2025 Procedure note* Candi Fowler, EVERT - 12/01/2024 1:21 PM EDT UNIVERSAL PROTOCOL [...] to the patient or surrogate. [facility]04-23-2025 Procedure note* Candi Fowler RN - [...] communicated to the patient or surrogate. * Lidia Hirsch DO - 12/01/2024 1:14 PM EDT BEDSIDE PROCEDURE NOTE PROCEDURE DATE: December 01, 2024 PROCEDURE START TIME: 12:30PM PRIMARY PROCEDURALIST: Lidia Hirsch DO DICTATING MACHINE MECHANIC(S): Candi Fowler RN INFORMED CONSENT: Informed Consent [...] pathology. Images were uploaded to the patient's [facility] medical chart. An UltraClip Dual Trigger breast [...] 01, 2024 TIME: 1:14 PM PAGER/CONTACT #: [phone] documented in [address] encounterMercy Health St. Charles [facility]04-23-2025 NoteSelect Medical Specialty [facility]04-23-2025 Procedure note* Lidia Hirsch DO - 12/01/2024 1:14 PM EDT BEDSIDE PROCEDURE NOTE PROCEDURE DATE: December 01, 2024 PROCEDURE START TIME: 12:30PM PRIMARY PROCEDURALIST: Lidia Hirsch DO DICTATING MACHINE MECHANIC(S): Candi Fowler RN INFORMED CONSENT: Informed Consent [...] pathology. Images were uploaded to the patient's [facility] medical chart. An UltraClip Dual Trigger breast [...] 01, 2024 TIME: 1:14 PM PAGER/CONTACT #: [phone] [facility]04-23-2025 Instructions* Patient Instructions* Candi Fowler RN - 12/01/2024 1:14 PM EDT The following instructions are important for you related to your office visit today with the [facility] General Surgeons. Instructions After OFFICE BASED [...] office in 1 week to see the CASH POSTING CLERK Elizabeth Esposito. If you note any additional difficulties, questions, or concerns, you should contact our office immediately @ [phone] and ask to be transferred to the General Surgery department. documented in this encounterMercy Health St. [facility] Hospital04-23-2025 History of Present illness Narrative* Lidia Hirsch, - 12/01/2024 12:15 PM EDT Breast Services- [...] No history of dysuria, frequency or incontinence. FLAT BED OPERATOR: Negative for abnormal vaginal bleeding, abnormal [...] Hirsch DO General Surgery documented in this encounterMercy Health St. Charles [facility]04-23-2025 NoteSelect Medical Specialty [facility]10-18-2024 Note Exercise nuclear stress test Patient was [...] SUKHI PIZANO MD on 05/28/2024 08:03 AM [facility]10-17-2024 Note* Exam Date Time Procedure Performing Provider Status 05/27/24 11:32 AM Echocardiogram, Adult - CV Auth (Verified) [facility] 03-29-2023 Evaluation + Plan note Future Scheduled Tests Laboratory* Vitamin D Level 11/06/22 [facility] 03-29-2023 Note ORIGINAL EXAMINATION: BONE DENSITOMETRY 11/06/2022 [...] Sign Date: 11/06/2022 1:38:35 PM Ordering Provider: [facility]03-29-2023 Note ORIGINAL EXAMINATION: BONE DENSITOMETRY 11/06/2022 11:29 [...] Sign Date: 11/06/2022 1:38:35 PM Ordering Provider: [facility] note Author Sukhwinder Brizuela [facility] Note Date/Time March 18, 2025 11: 52am [facility] Medical Records Department [address] [facility] [place] [address] Pre-Anesthesia Evaluation 03/18/25 1140 MR#: [id number] Acct: [id number] Name: LIZ ROBLES Rep #:[id number] : 1955 69 From: Sukhwinder Brizuela MD PCP: Babita Morataya NP-C Status:REG S DC Y Race: C [facility]: [facility]-1 ASA Classification* ASA Classification ASA Classification: 3 [...] polypectomy, Symphion Anesthesia History Anesthesia History - installer metal flooring: Anesthesia History - installer metal flooring Hx Hospitalization No 03/09/25 11:40 Any Problems [...] take am of surgery PONV PONV - installer metal flooring: PONV - installer metal flooring Female Yes 03/09/25 11:40 HX of Motion [...] 03/18/25 10:43 Respiratory Assessment Respiratory Assessment - installer metal flooring: Respiratory Tract Infection Hx - installer metal flooring Hx Respiratory Tract Infection No 03/09/25 11:40 STOP Sleep Apnea STOP Sleep Apnea - installer metal flooring: STOP Sleep Apnea - installer metal flooring Hx Hypertension Yes: NO MEDS PRESENTLY 03/09/25 [...] Tobacco Use History Tobacco Use History - installer metal flooring: Tobacco Use History - installer metal flooring Tobacco Use Smoking Status Never smoker 03/09/25 11:40 Hx Tobacco Use No 03/09/25 11:40 Years Smoking Packs Smoked per Day Smoking Cessation Date was within the last 15 years Hx Smoking Cessation Date Hx Smoking Cessation Counseling Hematologic Medial History Hematologic Hx - installer metal flooring: Hematologic Medical Hx - advisory application developer Hx of Blood Transfusion No 03/09/25 11:40 [...] confused, unrespo /Reproduction History /Reproductive History - installer metal flooring: /Reproductive Hx- installer metal flooring Hx Now No 03/09/25 11:40 Gestational Age [...] Type Severity Reaction Status Date / Time Iiaodee-LLE-NlO Reductase AdvReac Pain in Verified 03/09/25 11:26 [...] no additional complaints, except as documented. 03/18/25 8342 <Electronically signed by Sukhwinder yoder MD> Date _ Sukhwinder Brizuela MD Cosigner Signature: Date CC: ~ Signed [facility] Work Phone: Consult note Author Suman Victoria [facility] Note Date/Time March 18, 2025 12: 27pm [facility] Medical Records Department [address] [place] [address] Anesthesia Postop Eval I 03/18/25 1226 MR#: [id number] Acct: [id number] Name: LIZ ROBLES Rep #:[id number] : 1955 69 From: Suman Victoria CRNA PCP: Babita Morataya CASH POSTING CLERK-C Status:REG S DC Y Race: C Location: [place] [address] Anesthesia: Postop Eval I Current Vital Signs [...] Anesthesia document: Postop Eval 1 completed: Yes 03/18/25 1227 <Electronically signed by Suman martin CRNA> Date _ Suman Victoria CRNA Cosigner Signature: Date CC: ~ Signed [facility] Work Phone: Discharge summary Author Cuba Castro [facility] Note Date/Time February 27, 2025 10:4 8am [facility] Medical Records Department [address] [place] [address] Emergency Department Summary 02/27/25 MR#: [id number] Acct: [id number] Name: LIZ ROBLES Rep #:[id number] : 1955 69 From: Cuba Castro MD [...] Type Severity Reaction Status Date / Time Kibvzqi-WIG-YcO Reductase AdvReac Pain in Verified 02/27/25 10:20 [...] fecal impaction. With nurse in room as earring maker patient was digitally disimpacted. There was significant [...] Babita Morataya NP Referrals: Babita Morataya NP, CASH POSTING CLERK-C [Primary Care Provider] - As Needed Activity Restrictions/Additional Instructions: 1. Recommend increase fluid intake especially with the hot muggy weather this summer. 2. Recommend 1 cap of MiraLAX daily for the next week. If you start to have loose stools back down to half Per day Print Language: Lithuanian Disposition Disposition: Home, Self Care What to do if you have Problems For any increased pain, shortness of breath, bleeding, nausea or vomiting, chestpain, or any unexpected problems, contact your Primary Care Provider. Call [facility] ([phone]) or report to the closest Emergency Room. Call 911 if necessary. 02/27/25 1048 <Electronically signed by Cuba Castro MD> Cosigner Signature (if applicable): CC: CASH POSTING CLERK-C Babita Morataya ~ Signed [facility] Work Phone: Discharge summary Author [facility] Note Date/Time March 18, 2025 12: 19pm [facility] Medical Records Department [address] [place] [address] Instructions for Home/Discharge Instructions 03/18/25 1218 MR#: [id number] Acct: [id number] Name: LIZ ROBLES Rep #:[id number] : 1955 69 From: Emilie Lennon DO PCP: Babita Morataya NP-C Status:REG S DC Discharge Instructions DC O2, [...] Patient Instructions: Dilation and Curettage Print Language: Lithuanian Discharge Orders/Prescriptions Prescriptions: Continued fluorometholone 0.1 % [...] SEE DOSE PACK Referrals / Follow Up: Babita Morataya NP, CASH POSTING CLERK-C [Primary Care Provider] - Disposition Disposition (needs filled in before D/C Order can be placed): Home, Self Care 03/18/25 1219<Electronically signed by Emilie Lennon DO>Emilie Lennon DO CC: GIOVANNIC Babita Morataya ~ Signed [facility] Work Phone: Evaluation + Plan note Future Appointments Appointment Date:10/16/2022 09:00:00 AM Scheduled Provider:BABITA MORATAYA Location:[facility] Appointment Type:PC Wellness Annual [facility] Evaluation + Plan note Future Appointments Appointment Date:05/28/2024 07:45:00 AM Scheduled Provider: Location:[facility] Appointment Type:HL Plain Stress Test [facility] Evaluation + Plan note Future Appointments Appointment Date:07/20/2024 08:45:00 AM Scheduled Provider:AMBER PIZANO Location:[facility] Appointment Type:CV OV Future Scheduled Tests Laboratory* N-Terminal proBNP 06/18/24 Radiology* CT Coronary Angiography w+w/o Contrast 05/28/24 * CT Coronary Extracardiac 05/28/24 [facility] Evaluation + Plan note Future Appointments Appointment Date:07/20/2024 08:45:00 AM Scheduled Provider:AMBER PIZANO Location:[facility] Appointment Type:CV OV Appointment Date:07/21/2024 11:00:00 AM Scheduled Provider:BABITA MORATAYA Location:[facility] Appointment Type:PC OV Future Scheduled Tests Radiology* CT Coronary Angiography w+w/o Contrast 05/28/24 * CT Coronary Extracardiac 05/28/24 [facility] Evaluation note* Diagnosis Breast cancer, stage 2, left (HCC)- Primary Malignant neoplasm of upper-inner quadrant of left breast in female, estrogen receptor negative (HCC) Infiltrating ductal carcinoma of left breast (HCC) Diarrhea, unspecified type documented in this encounter [facility] note* Diagnosis Mass of upper inner quadrant of left breast- Primary Mass of upper inner quadrant of left breast documented in this encounter [facility] note* Diagnosis Malignant neoplasm of upper-inner quadrant [...] of lymph nodes 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 Diagnosis Breast cancer, stage 2, left (HCC)- Primary [facility] Diagnosis Increased endometrial stripe thickness Nonspecific (abnormal) findings on radiological and other examination of genitourinary organs [facility] Diagnosis Encounter for education- Primary Counseling NOS [facility] Diagnosis Endometrial polyp- Primary Polyp of corpus uteri 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 Diagnosis Breast cancer, stage 2, left (HCC)- Primary Malignant neoplasm of upper-inner quadrant of left breast in female, estrogen receptor negative (HCC) Lung nodules Other nonspecific abnormal finding of lung field Malaise and fatigue Other malaise and fatigue Acquired hypothyroidism Unspecified hypothyroidism Hypoadrenalism (HCC) Glucocorticoid deficiency [facility] Diagnosis Malignant neoplasm of upper-inner quadrant of left breast in female, estrogen receptor negative (HCC) [facility] Diagnosis Malignant neoplasm of upper-inner quadrant of left breast in female, estrogen receptor negative (HCC)- Primary [facility] Diagnosis Malignant neoplasm of upper-inner quadrant of left breast in female, estrogen receptor negative (HCC)- Primary Malignant neoplasm of upper-inner quadrant of left breast in female, estrogen receptor negative (HCC) [facility] Diagnosis Malignant neoplasm of upper-inner quadrant of left breast in female, estrogen receptor negative (HCC)- Primary Breast cancer, stage 2, left (HCC) Lung nodules Other nonspecific abnormal finding of lung field [facility] History of breast cancer- Primary Personal history of malignant neoplasm of breast Endometrial polyp Polyp of corpus uteri [facility] Diagnosis Malignant neoplasm of upper-inner quadrant of left breast in female, estrogen receptor negative (HCC)- Primary Breast cancer, stage 2, left (HCC) Lung nodules Other nonspecific abnormal finding of lung field [facility] noteNo assessment information availableWGlenbeigh Hospital Work Phone: Evaluation note* Diagnosis Malignant neoplasm of upper-inner quadrant of left breast in female, estrogen receptor negative (HCC)- Primary Breast cancer, stage 2, left (HCC) Lung nodules Other nonspecific abnormal finding of lung field Malaise and fatigue Other malaise and fatigue Acquired hypothyroidism Unspecified hypothyroidism Hypoadrenalism (HCC) Glucocorticoid deficiency [facility] Diagnosis Malignant neoplasm of upper-inner quadrant of left breast in female, estrogen receptor negative (HCC)- Primary [facility] Diagnosis Visit for pre-operative examination- Primary Preoperative examination, unspecified Chemotherapy-induced neutropenia Drug induced neutropenia Uterine polyp Polyp of corpus uteri [facility] Diagnosis Malignant neoplasm of upper-inner quadrant of left breast in female, estrogen receptor negative (HCC)- Primary Breast cancer, stage 2, left (HCC) Lung nodules Other nonspecific abnormal finding of lung field Chemotherapy-induced neutropenia Drug induced neutropenia [facility] Diagnosis Malignant neoplasm of upper-inner quadrant of left breast in female, estrogen receptor negative (HCC)- Primary Chemotherapy-induced neuropathy (HCC) Polyneuropathy due to drugs Drug rash Dermatitis due to drugs and medicines taken internally [facility] Diagnosis Breast cancer, stage 2, left (HCC) Malignant neoplasm of upper-inner quadrant of left breast in female, estrogen receptor negative (HCC) Lung nodules Other nonspecific abnormal finding of lung field [facility] Diagnosis Malignant neoplasm of upper-inner quadrant of left breast in female, estrogen receptor negative (HCC)- Primary Breast cancer, stage 2, left (HCC) Lung nodules Other nonspecific abnormal finding of lung field [facility] Diagnosis Breast cancer, stage 2, left (HCC)- Primary Malignant neoplasm of upper-inner quadrant of left breast in female, estrogen receptor negative (HCC) [facility] Diagnosis Malignant neoplasm of upper-inner quadrant of left breast in female, estrogen receptor negative (HCC)- Primary [facility] Diagnosis Post-operative state- Primary Other postprocedural status [facility]* Diagnosis Breast cancer, stage 2, left (HCC)- Primary Malignant neoplasm of upper-inner quadrant of left breast in female, estrogen receptor negative (HCC) [facility] Diagnosis Breast cancer, stage 2, left (HCC)- Primary Malignant neoplasm of upper-inner quadrant of left breast in female, estrogen receptor negative (HCC) Lung nodules Other nonspecific abnormal finding of lung field Malaise and fatigue Other malaise and fatigue Acquired hypothyroidism Unspecified hypothyroidism Hypoadrenalism (HCC) Glucocorticoid deficiency [facility]* Diagnosis Breast cancer, stage 2, left (HCC)- Primary Malignant neoplasm of upper-inner quadrant of left breast in female, estrogen receptor negative (HCC) [facility]* Diagnosis Breast cancer, stage 2, left (HCC)- Primary Malignant neoplasm of upper-inner quadrant of left breast in female, estrogen receptor negative (HCC) [facility] Diagnosis Malignant neoplasm of upper-inner quadrant of left breast in female, estrogen receptor negative (HCC)- Primary Breast cancer, stage 2, left (HCC) Lung nodules Other nonspecific abnormal finding of lung field Breast cancer, stage 2, left (HCC)- Primary Malignant neoplasm of upper-inner quadrant of left breast in female, estrogen receptor negative (HCC) [facility] Diagnosis Breast cancer, stage 2, left (HCC)- Primary Malignant neoplasm of upper-inner quadrant of left breast in female, estrogen receptor negative (HCC) [facility] N[facility] No data available for this section [facility] Discharge instructions No data available for this section [facility] Discharge instructionsAdditional Instructions 1. Recommend increase fluid intake especially with the hot muggy weather this summer. 2. Recommend 1 cap of MiraLAX daily for the next week. If you start to have loose stools back down to half Per dayWGlen[facility] Work Phone: Hospital Discharge instructionsAdditional Instructions Your urine did not show any evidence of infection hand emergency department. Follow-up with your doctor in outpatient setting return with worsening symptoms or any concerns. [facility] Work Phone: Hospital Discharge instructionsAdditional Instructions Take another dose of Benadryl tonight around 7 PM. Follow-up with your primary care doctor or Dr. Martinez as soon as possible. Return to the ED with any new or worsening symptoms. Your evaluation in the Emergency Department did not reveal any acute reason for admission. However, I want to emphasize that you may be early in the course of a disease process or illness even if it is not present. For this reason you should follow-up within 24 hours for reevaluation with either your primary care physician or if necessary back here in the Emergency Department. You should return to the Emergency Department immediately if your symptoms worsen or new symptoms develop.[facility] Work Phone: Progress note No data available for this section [facility] Reason for referral (narrative)No reason for referral information availableWGlenbeigh Hospital Work Phone: Reason for visit Narrative* MRI/CT (Routine) - Closed Specialty Diagnoses / Procedures Referred By Contac t Referred To Contact CT IMAGING Diagnoses Malignant neoplasm of upper-inner quadrant of left breast in female, estrogen receptor negative (HCC) Procedures CT ABD/PEL W IVCON CT ABD & PELVIS W/CONTRAST Lidia Hirsch, DO [address] [place] [address] Phone: tel: fax: [place] [phone] Referral ID Status Reason Start Date Expiration Date V isits Requested Visits Authorized [id number] Closed Auto-Generate d Referral 12/08/2024 01/07/2026 1 1 [facility] for visit Narrative* MRI/CT (Routine) - Closed Specialty Diagnoses / Procedures Referred By Gregory eddy Referred To Contact MR IMAGING Diagnoses Malignant neoplasm of upper-inner quadrant of left breast in female, estrogen receptor negative (HCC) Procedures MRI BREAST WO/W IVCON BILATERAL MRI BREAST WITHOUT&WITH CONTRAST W/CAD BILATERAL Lidia Hirsch, DO [address] [place] [address] Phone: tel: fax: MR IMAGING [facility] Referral ID Status Reason Start Date Expiration Date V isits Requested Visits Authorized [id number] Closed Auto-Generate d Referral 12/20/2024 01/19/2026 1 1 [facility] for visit Narrative* MRI/CT (Routine) - Closed Specialty Diagnoses / Procedures Referred By Gregory eddy Referred To Contact MR IMAGING Diagnoses Lesion of liver greater than 1 cm in diameter Procedures MRI LIVER WO/W IVCON MRI ABDOMEN W/O & W/CONTRAST MATERIAL Lidia Hirsch, DO [address] [place] [address] Phone: tel: fax: MR IMAGING [place] [facility] Referral ID Status Reason Start Date Expiration Date V isits Requested Visits Authorized [id number] Closed Auto-Generate d Referral 12/23/2024 08/10/2025 1 1 [facility] for visit Narrative* Diagnostic Procedure Only (Routine) - Closed Specialty Diagnoses / Procedures Referred By Gregory eddy Referred To Contact BR IMAGING Diagnoses Malignant neoplasm of upper-inner quadrant of left breast in female, estrogen receptor negative (HCC) Procedures US BIOPSY AXILLA LEFT BIOPSY MUSCLE PERCUTANEOUS NEEDLE BX/EXC LYMPH NODE [place] [address] [place] [address] Phone: tel: fax: BR IMAGING [address] [place] [address] Referral ID Status Reason Start Date Expiration Date V isits Requested Visits Authorized [id number] Closed Auto-Generate d Referral 01/06/2025 02/05/2026 1 1 [facility] for visit Narrative* [place] Prior Authorization (Routine) - Authorized Specialty Diagnoses / Procedures Referred By Contkathy t Referred To Contact Diagnoses Breast cancer, stage 2, left (HCC) Malignant neoplasm of upper-inner quadrant of left breast in female, estrogen receptor negative (HCC) Orville Martinez, DO [address] [place] [address] Phone: tel: fax: Hematology/Oncology [address] [place] [address] Phone: tel: fax: Referral ID Status Reason Start Date Expiration Date V isits Requested Visits Authorized [id number] Authorized 03/23/2025 06/21/2025 [address] [facility] Summary Purpose Family History Relationship Condition Age at Onset Recorded Date/T devan uncle Alcoholism Unknown aunt Alcoholism Unknown Malignant neoplasm of breast Unknown Malignant neoplasm Unknown mother Disorder of liver Unknown brother High blood cholesterol Unknown No Family History Records Found Advance Directives Advance Directive Response Recorded Date/ Time Do you have a Healthcare Power of School Superintendent? No February 27, 2025 10:34am Advance Directive Response Recorded Date/ Time Do you have a Healthcare Power of School Superintendent? No February 27, 2025 10:34am Do you have a Healthcare Power of School Superintendent? Yes March 09, 2025 11:40am Advance Directive Response Recorded Date/ Time Do you have a Healthcare Power of School Superintendent? Yes March 18, 2025 10:37pm Do you have a Healthcare Power of School Superintendent? No February 27, 2025 10:34am Do you have a Healthcare Power of School Superintendent? Yes March 09, 2025 11:40am Advance Directive Response Recorded Date/ Time Do you have a Healthcare Power of School Superintendent? Yes March 18, 2025 10:37pm Do you have a Healthcare Power of School Superintendent? No February 27, 2025 10:34am Do you have a Healthcare Power of School Superintendent? Yes March 09, 2025 11:40am Do you have a Healthcare Power of School Superintendent? Yes April 14, 2025 1:46pm Chief Complaint and Reason for Visit Chief Complaint Admit Date OTHER PAIN February 27, 2025 10:1 6am Chief Complaint Admit Date OTHER PAIN February 27, 2025 10:1 6am Hysteroscopy,D&C, polypectomy, Symphion March 18, 2025 10:12am Reason for Visit Admit Date Endometrial polyp March 18, 2025 10: 12am Chief Complaint Admit Date OTHER PAIN February 27, 2025 10:1 6am Hysteroscopy,D&C, polypectomy, Symphion March 18, 2025 10:12am uti March 18, 2025 9:5 9pm Chief Complaint Admit Date OTHER PAIN February 27, 2025 10:1 6am Hysteroscopy,D&C, polypectomy, Symphion March 18, 2025 10:12am uti March 18, 2025 9:5 9pm allergic April 14, 2025 1:41pm Additional Source Comments Care Team (unrecognized sect ion and content) Care Team Personnel Name: BABITA MORATAYA APRN-RADIOLOGY EQUIPMENT SERVICER Position: P4 Advanced Learning Analyst Member Role: Primary Care Physician Address: Address: [facility] [place] [address]- Care Team Related Persons Name: ARTEM ROBLES Address: Home [address] [place] [address] [id number] Patient Care team informatio n (unrecognized section and content) Mail Machine Operator Relationship Specialty Start Date End Date Babita Morataya APRN.RADIOLOGY EQUIPMENT SERVICER [address] [place] [address] PCP - General Family Medicine 12/01/24 Mail Machine Operator Relationship Specialty Start Date End Date Babita Morataya APRN.CNP [address] [place] [address] PCP - General Family Medicine 12/01/24 Mail Machine Operator Relationship Specialty Start Date End Date Babita Morataya, SWITCHMAN SUPERVISOR.RADIOLOGY EQUIPMENT SERVICER [address] [place] [place] [address] PCP - General Family Medicine 12/01/24 Sara Avalos MD [address] [place] [address] Physician Radiation Oncology 12/09/24 Mail Machine Operator Relationship Specialty Start Date End Date Babita Morataya, SWITCHMAN SUPERVISOR.RADIOLOGY EQUIPMENT SERVICER [address] [place] [address] PCP - General Family Medicine 12/01/24 Sara Avalos MD [address] [place] [address] Physician Radiation Oncology 12/09/24 Mail Machine Operator Relationship Specialty Start Date End Date Babita Morataya, SWITCHMAN SUPERVISOR.RADIOLOGY EQUIPMENT SERVICER [address] [place] [address] PCP - General Family Medicine 12/01/24 Sara Avalos MD [address] [place] [address] Physician Radiation Oncology 12/09/24 Mail Machine Operator Relationship Specialty Start Date End Date Babita Morataya, SWITCHMAN SUPERVISOR.RADIOLOGY EQUIPMENT SERVICER [address] [place] [address] PCP - General Family Medicine 12/01/24 Sara Avalos MD [address] [place] [address] Physician Radiation Oncology 12/09/24 Mail Machine Operator Relationship Specialty Start Date End Date Babita Morataya, SWITCHMAN SUPERVISOR.RADIOLOGY EQUIPMENT SERVICER [address] [place] [address] PCP - General Family Medicine 12/01/24 Sara Avalos MD [address] [place] [address] Physician Radiation Oncology 12/09/24 Mail Machine Operator Relationship Specialty Start Date End Date Babita Morataya, SWITCHMAN SUPERVISOR.RADIOLOGY EQUIPMENT SERVICER [address] [place] [address] PCP - General Family Medicine 12/01/24 Sara Avalos MD [address] [place] [address] Physician Radiation Oncology 12/09/24 Mail Machine Operator Relationship Specialty Start Date End Date Babita Morataya, SWITCHMAN SUPERVISOR.RADIOLOGY EQUIPMENT SERVICER [address] [place] [address] PCP - General Family Medicine 12/01/24 Sara Avalos MD [address] [place] [address] Physician Radiation Oncology 12/09/24 Mail Machine Operator Relationship Specialty Start Date End Date Babita Morataya, SWITCHMAN SUPERVISOR.RADIOLOGY EQUIPMENT SERVICER [address] [place] [address] PCP - General Family Medicine 12/01/24 Sara Avalos MD [address] [place] [address] Physician Radiation Oncology 12/09/24 Lidia Hirsch DO [address] [place] [address] General Surgery 01/04/25 Mail Machine Operator Relationship Specialty Start Date End Date Babita Morataya, SWITCHMAN SUPERVISOR.RADIOLOGY EQUIPMENT SERVICER [address] [place] [address] PCP - General Family Medicine 12/01/24 Sara Avalos MD [address] [place], [place] [address] Physician Radiation Oncology 12/09/24 Lidia Hirsch DO [address] [place] [address] General Surgery 01/04/25 Mail Machine Operator Relationship Specialty Start Date End Date Babita Morataya, SWITCHMAN SUPERVISOR.RADIOLOGY EQUIPMENT SERVICER [address] [place] [address] PCP - General Family Medicine 12/01/24 Sara Avalos MD [address] [place] [address] Physician Radiation Oncology 12/09/24 Lidia Hirsch DO [address] [place] [address] General Surgery 01/04/25 Mail Machine Operator Relationship Specialty Start Date End Date Babita Morataya, SWITCHMAN SUPERVISOR.RADIOLOGY EQUIPMENT SERVICER [address] [place] [address] PCP - General Family Medicine 12/01/24 Sara Avalos MD [address] [address] Physician Radiation Oncology 12/09/24 Lidia Hirsch DO [address] [place] [address] General Surgery 01/04/25 Mail Machine Operator Relationship Specialty Start Date End Date Babita Morataya APRN.RADIOLOGY EQUIPMENT SERVICER [address] [place] [address] PCP - General Family Medicine 12/01/24 Sara Avalos MD [address] [address] Physician Radiation Oncology 12/09/24 Lidia Hirsch DO [address] [place] [address] General Surgery 01/04/25 Mail Machine Operator Relationship Specialty Start Date End Date Babita Morataya APRN.RADIOLOGY EQUIPMENT SERVICER [address] [place] [address] PCP - General Family Medicine 12/01/24 Sara Avalos MD [address] [place] [address] Physician Radiation Oncology 12/09/24 Lidia Hirsch DO [address] [place] [address] General Surgery 01/04/25 Mail Machine Operator Relationship Specialty Start Date End Date Babita Morataya APRN.RADIOLOGY EQUIPMENT SERVICER [address] [place] [address] PCP - General Family Medicine 12/01/24 Sara Avalos MD [address] [place] [address] Physician Radiation Oncology 12/09/24 Lidia Hirsch DO [address] [place] [address] General Surgery 01/04/25 Mail Machine Operator Relationship Specialty Start Date End Date Babita Morataya APRN.RADIOLOGY EQUIPMENT SERVICER [address] [address] PCP - General Family Medicine 12/01/24 Sara Avalos MD [address] [place], [place] [address] [phone] Physician Radiation Oncology 12/09/24 Lidia Hirsch DO [address] [place] [address] General Surgery 01/04/25 Mail Machine Operator Relationship Specialty Start Date End Date Babita Morataya APRN.RADIOLOGY EQUIPMENT SERVICER [address] [address] PCP - General Family Medicine 12/01/24 Sara Avalos MD [address] [place] [address] Physician Radiation Oncology 12/09/24 Lidia Hirsch DO [address] [place] [address] General Surgery 01/04/25 Mail Machine Operator Relationship Specialty Start Date End Date Babita Morataya, KOFFI.RADIOLOGY EQUIPMENT SERVICER [address] [place] [address] PCP - General Family Medicine 12/01/24 Sara Avalos MD [address] [place] [address] Physician Radiation Oncology 12/09/24 Lidia Hirsch DO [address] [place] [address] General Surgery 01/04/25 Mail Machine Operator Relationship Specialty Start Date End Date Babita Morataya, SWITCHMAN SUPERVISOR.RADIOLOGY EQUIPMENT SERVICER [address] [place] [address] PCP - General Family Medicine 12/01/24 Sara Avalos MD [address] [place] [address] Physician Radiation Oncology 12/09/24 Lidia Hirsch DO [address] [place] [address] General Surgery 01/04/25 Mail Machine Operator Relationship Specialty Start Date End Date Babita Morataya, SWITCHMAN SUPERVISOR.RADIOLOGY EQUIPMENT SERVICER [address] [place] [address] PCP - General Family Medicine 12/01/24 Sara Avalos MD [address] [place] [address] Physician Radiation Oncology 12/09/24 Lidia Hirsch DO [address] [place], [place] [id number] General Surgery 01/04/25 Mail Machine Operator Relationship Specialty Start Date End Date Babita Morataya, SWITCHMAN SUPERVISOR.RADIOLOGY EQUIPMENT SERVICER [address] [place] [address] PCP - General Family Medicine 12/01/24 Sara Avalos MD [address] [place], [place] [id number] Physician Radiation Oncology 12/09/24 Lidia Hirsch DO [address] [place] [address] General Surgery 01/04/25 Orville Martinez DO [address] [place], [place] [address] Hematology/Oncology 01/14/25 Jennifer Burk RN Specialty Gas Inspector Oncology 01/14/25 Mail Machine Operator Relationship Specialty Start Date End Date Babita Morataya, SWITCHMAN SUPERVISOR.RADIOLOGY EQUIPMENT SERVICER [address] [place] [address] PCP - General Family Medicine 12/01/24 Sara Avalos MD [address] [place], [place] [address] Physician Radiation Oncology 12/09/24 Lidia Hirsch DO [address] [place] [address] General Surgery 01/04/25 Orville Martinez DO [address] [place], [place] [address] Hematology/Oncology 01/14/25 Jennifer Burk RN Specialty Gas Inspector Oncology 01/14/25 Mail Machine Operator Relationship Specialty Start Date End Date Babita Morataya, SWITCHMAN SUPERVISOR.RADIOLOGY EQUIPMENT SERVICER [address] [place] [address] PCP - General Family Medicine 12/01/24 Sara Avalos MD [address] [place] [address] Physician Radiation Oncology 12/09/24 Lidia Hirsch DO [address] [place] [address] General Surgery 01/04/25 Orville Martinez DO [address] [place] [address] Hematology/Oncology 01/14/25 Jennifer Burk RN Specialty Gas Inspector Oncology 01/14/25 Mail Machine Operator Relationship Specialty Start Date End Date Babita Morataya, SWITCHMAN SUPERVISOR.RADIOLOGY EQUIPMENT SERVICER [address] [place] [address] PCP - General Family Medicine 12/01/24 Sara Avalos MD [address] [place] [address] Physician Radiation Oncology 12/09/24 Lidia Hirsch DO [address] [place] [address] General Surgery 01/04/25 Orville Martinez DO [address] [place] [address] Hematology/Oncology 01/14/25 Jennifer Bruk RN Specialty Gas Inspector Oncology 01/14/25 Mail Machine Operator Relationship Specialty Start Date End Date Babita Morataya, SWITCHMAN SUPERVISOR.RADIOLOGY EQUIPMENT SERVICER [address] [place] [address] PCP - General Family Medicine 12/01/24 Sara Avalos MD [address] [address] Physician Radiation Oncology 12/09/24 Lidia Hirsch DO [address] [place] [address] General Surgery 01/04/25 Orville Martinez DO [address] [place] [address] Hematology/Oncology 01/14/25 Jennifer Burk RN Specialty Gas Inspector Oncology 01/14/25 Mail Machine Operator Relationship Specialty Start Date End Date Babita Morataya, SWITCHMAN SUPERVISOR.RADIOLOGY EQUIPMENT SERVICER [address] [place] [address] PCP - General Family Medicine 12/01/24 Sara Avalos MD [address] [address] Physician Radiation Oncology 12/09/24 Lidia Hirsch DO [address] [place] [address] General Surgery 01/04/25 Orville Martinez DO [address] [place] [address] Hematology/Oncology 01/14/25 Jennifer Burk RN Specialty Gas Inspector Oncology 01/14/25 Mail Machine Operator Relationship Specialty Start Date End Date Babita Morataya, SWITCHMAN SUPERVISOR.RADIOLOGY EQUIPMENT SERVICER [address] [place] [address] PCP - General Family Medicine 12/01/24 Sara Avalos MD [address] [place] [address] Physician Radiation Oncology 12/09/24 Lidia Hirsch DO [address] [place] [address] General Surgery 01/04/25 Orville Martinez DO [address] [place] [address] Hematology/Oncology 01/14/25 Jennifer Burk RN Specialty Gas Inspector Oncology 01/14/25 Mail Machine Operator Relationship Specialty Start Date End Date Babita Morataya, SWITCHMAN SUPERVISOR.RADIOLOGY EQUIPMENT SERVICER [address] [place] [address] PCP - General Family Medicine 12/01/24 Sara Avalos MD [address] [place] [address] Physician Radiation Oncology 12/09/24 Lidia Hirsch DO [address] [place] [address] General Surgery 01/04/25 Orville Martinez DO [address] [place] [address] Hematology/Oncology 01/14/25 Jennifer Burk RN Specialty Gas Inspector Oncology 01/14/25 Mail Machine Operator Relationship Specialty Start Date End Date Babita Morataya, SWITCHMAN SUPERVISOR.RADIOLOGY EQUIPMENT SERVICER [address] [place] [address] PCP - General Family Medicine 12/01/24 Sara Avalos MD [address] [place] [address] Physician Radiation Oncology 12/09/24 Lidia Hirsch DO [address] [place] [address] General Surgery 01/04/25 Orville Martinez DO [address] [place] [address] Hematology/Oncology 01/14/25 Jennifer Burk RN Specialty Gas Inspector Oncology 01/14/25 Mail Machine Operator Relationship Specialty Start Date End Date Babita Morataya, SWITCHMAN SUPERVISOR.RADIOLOGY EQUIPMENT SERVICER [address] [place] [address] PCP - General Family Medicine 12/01/24 Sara Avalos MD [address] [place] [address] Physician Radiation Oncology 12/09/24 Lidia Hirsch DO [address] [place] [address] General Surgery 01/04/25 Orville Martinez DO [address] [place] [address] Hematology/Oncology 01/14/25 Jennifer Burk RN Specialty Gas Inspector Oncology 01/14/25 Mail Machine Operator Relationship Specialty Start Date End Date Babita Morataya, KOFFI.RADIOLOGY EQUIPMENT SERVICER [address] [place] [address] PCP - General Family Medicine 12/01/24 Sara Avalos MD [address] [place] [address] Physician Radiation Oncology 12/09/24 Lidia Hirsch DO [address] [place] [address] General Surgery 01/04/25 Orville Martinez DO [address] [place] [address] Hematology/Oncology 01/14/25 Jennifer Burk RN Specialty Gas Inspector Oncology 01/14/25 Deborah Villavicencio LISW [address] [place] [address] Wildlife Conservationist Hematology/Oncology 02/04/25 Mail Machine Operator Relationship Specialty Start Date End Date Babita Morataya, SWITCHMAN SUPERVISOR.RADIOLOGY EQUIPMENT SERVICER [address] [place] [address] PCP - General Family Medicine 12/01/24 Sara Avalos MD [address] [place] [address] Physician Radiation Oncology 12/09/24 Lidia Hirsch DO [address] [place] [address] General Surgery 01/04/25 Orville Martinez DO [address] [place] [address] Hematology/Oncology 01/14/25 Jennifer Burk RN Specialty Gas Inspector Oncology 01/14/25 Deborah Villavicencio LISW [address] [place] [address] Wildlife Conservationist Hematology/Oncology 02/04/25 Mail Machine Operator Relationship Specialty Start Date End Date Babita Morataya APRN.RADIOLOGY EQUIPMENT SERVICER [address] [place] [address] PCP - General Family Medicine 12/01/24 Sara Avalos MD [address] [place] [address] Physician Radiation Oncology 12/09/24 Lidia Hirsch DO [address] [place] [address] General Surgery 01/04/25 Orville Martinez DO [address] [place] [address] Hematology/Oncology 01/14/25 Jennifer Burk RN Specialty Gas Inspector Oncology 01/14/25 Deborah Villavicencio LISW [address] [place] [address] Wildlife Conservationist Hematology/Oncology 02/04/25 Mail Machine Operator Relationship Specialty Start Date End Date Babita Morataya, SWITCHMAN SUPERVISOR.RADIOLOGY EQUIPMENT SERVICER [address] [place] [address] PCP - General Family Medicine 12/01/24 Sara Avalos MD [address] [place] [address] Physician Radiation Oncology 12/09/24 Lidia Hirsch DO [address] [place] [address] General Surgery 01/04/25 Orville Martinez DO [address] [place] [address] Hematology/Oncology 01/14/25 Jennifer Burk, EVERT Specialty Gas Inspector Oncology 01/14/25 Deborah Villavicencio LISW [address] [place] [address] Wildlife Conservationist Hematology/Oncology 02/04/25 Mail Machine Operator Relationship Specialty Start Date End Date Babita Morataya, SWITCHMAN SUPERVISOR.RADIOLOGY EQUIPMENT SERVICER [address] [place] [address] PCP - General Family Medicine 12/01/24 Sara Avalos MD [address] [place] [address] Physician Radiation Oncology 12/09/24 Lidia Hirsch DO [address] [place] [address] General Surgery 01/04/25 Orville Martinez DO [address] [place] [address] Hematology/Oncology 01/14/25 Jennifer Burk RN Specialty Gas Inspector Oncology 01/14/25 Deborah Villavicencio LISW [address] [place] [address] Wildlife Conservationist Hematology/Oncology 02/04/25 Mail Machine Operator Relationship Specialty Start Date End Date Babita Morataya, SWITCHMAN SUPERVISOR.RADIOLOGY EQUIPMENT SERVICER [address] [place] [address] PCP - General Family Medicine 12/01/24 Sara Avalos MD [address] [place] [address] Physician Radiation Oncology 12/09/24 Lidia Hirsch DO [address] [place] [address] General Surgery 01/04/25 Orville Martinez DO [address] [place] [address] Hematology/Oncology 01/14/25 Jennifer Burk RN Specialty Gas Inspector Oncology 01/14/25 Deborah Villavicencio LISW [address] [place] [address] Wildlife Conservationist Hematology/Oncology 02/04/25 Mail Machine Operator Relationship Specialty Start Date End Date Babita Morataya, SWITCHMAN SUPERVISOR.RADIOLOGY EQUIPMENT SERVICER [address] [place] [address] PCP - General Family Medicine 12/01/24 Sara Avalos MD [address] [place] [address] Physician Radiation Oncology 12/09/24 Lidia Hirsch DO [address] [place] [address] General Surgery 01/04/25 Orville Martinez DO [address] [place] [address] Hematology/Oncology 01/14/25 Jennifer Burk RN Specialty Gas Inspector Oncology 01/14/25 Deborah Villavicencio LISW [address] [place] [address] Wildlife Conservationist Hematology/Oncology 02/04/25 Mail Machine Operator Relationship Specialty Start Date End Date Babita Morataya, SWITCHMAN SUPERVISOR.RADIOLOGY EQUIPMENT SERVICER [address] [place] [address] PCP - General Family Medicine 12/01/24 Sara Avalos MD [address] [address] Physician Radiation Oncology 12/09/24 Lidia Hirsch DO [address] [place] [address] General Surgery 01/04/25 Orville Martinez DO [address] [address] Hematology/Oncology 01/14/25 Jennifer Burk RN Specialty Gas Inspector Oncology 01/14/25 Deborah Villavicencio LISW [address] [place] [address] Wildlife Conservationist Hematology/Oncology 02/04/25 Mail Machine Operator Relationship Specialty Start Date End Date Babita Morataya, SWITCHMAN SUPERVISOR.RADIOLOGY EQUIPMENT SERVICER [address] [place] [address] PCP - General Family Medicine 12/01/24 Sara Avalos MD [address] [place] [address] Physician Radiation Oncology 12/09/24 Lidia Hirsch DO [address] [place] [address] General Surgery 01/04/25 Orville Martinez DO [address] [place] [address] Hematology/Oncology 01/14/25 Jennifer Burk RN Specialty Gas Inspector Oncology 01/14/25 Deborah Villavicencio LISW [address] [place] [address] Wildlife Conservationist Hematology/Oncology 02/04/25 Mail Machine Operator Relationship Specialty Start Date End Date Babita Morataya, SWITCHMAN SUPERVISOR.RADIOLOGY EQUIPMENT SERVICER [address] [place] [address] PCP - General Family Medicine 12/01/24 Sara Avalos MD [address] [place] [address] Physician Radiation Oncology 12/09/24 Lidia Hirsch DO [address] [place] [address] General Surgery 01/04/25 Orville Martinez DO [address] [place] [address] Hematology/Oncology 01/14/25 Jennifer Burk RN Specialty Gas Inspector Oncology 01/14/25 Deborah Villavicencio LISW [address] [place] [address] Wildlife Conservationist Hematology/Oncology 02/04/25 Team Status: Active Member Role/Relationship Status Dates Babita Morataya CASH POSTING CLERK, CASH POSTING CLERK-C Primary Care Provider Active Team Status: Inactive Member Role/Relationship Status Dates Babita Morataya CASH POSTING CLERK, CASH POSTING CLERK-C Primary Care Provider Active Start: February 27, 2025 End: February 27, 2025 Dr. Cuba Castro MD Emergency Provider Active Sta rt: February 27, 2025 End: February 27, 2025 Mail Machine Operator Relationship Specialty Start Date End Date Babita Morataya, SWITCHMAN SUPERVISOR.RADIOLOGY EQUIPMENT SERVICER [address] [place] [address] PCP - General Family Medicine 12/01/24 Sara Avalos MD [address] [facility] [place] [address] Physician Radiation Oncology 12/09/24 Lidia Hirsch DO [address] [place] [address] General Surgery 01/04/25 Orville Martinez DO [address] [place] [address] Hematology/Oncology 01/14/25 Jennifer Burk, EVERT Specialty Gas Inspector Oncology 01/14/25 Deborah Villavicencio LISW [address] [place] [address] Wildlife Conservationist Hematology/Oncology 02/04/25 Mail Machine Operator Relationship Specialty Start Date End Date Babita Morataya, SWITCHMAN SUPERVISOR.RADIOLOGY EQUIPMENT SERVICER [address] [place] [address] PCP - General Family Medicine 12/01/24 Sara Avalos MD [address] [place] [address] Physician Radiation Oncology 12/09/24 Lidia Hirsch DO [address] [place] [address] General Surgery 01/04/25 Orville Martinez DO [address] [place] [address] Hematology/Oncology 01/14/25 Jennifer Burk RN Specialty Gas Inspector Oncology 01/14/25 Deborah Villavicencio LISW [address] [place] [address] Wildlife Conservationist Hematology/Oncology 02/04/25 Mail Machine Operator Relationship Specialty Start Date End Date Babita Morataya, SWITCHMAN SUPERVISOR.RADIOLOGY EQUIPMENT SERVICER [address] [place] [address] PCP - General Family Medicine 12/01/24 Sara Avalos MD [address] [place] [address] Physician Radiation Oncology 12/09/24 Lidia Hirsch DO [address] [place] [address] General Surgery 01/04/25 Orville Martinez DO [address] [place] [address] Hematology/Oncology 01/14/25 Jennifer Burk RN Specialty Gas Inspector Oncology 01/14/25 Deborah Villavicencio LISW [address] [place] [address] Wildlife Conservationist Hematology/Oncology 02/04/25 Mail Machine Operator Relationship Specialty Start Date End Date Babita Morataya, SWITCHMAN SUPERVISOR.RADIOLOGY EQUIPMENT SERVICER [address] [place] [address] PCP - General Family Medicine 12/01/24 Sara Avalos MD [address] [place] [address] Physician Radiation Oncology 12/09/24 Lidia Hirsch DO [address] [place] [address] General Surgery 01/04/25 Orville Martinez DO [address] [place] [address] Hematology/Oncology 01/14/25 Jennifer Burk RN Specialty Gas Inspector Oncology 01/14/25 Deborah Villavicencio LISW [address] [place] [address] Wildlife Conservationist Hematology/Oncology 02/04/25 Mail Machine Operator Relationship Specialty Start Date End Date Babita Morataya APRN.RADIOLOGY EQUIPMENT SERVICER [address] [place] [address] PCP - General Family Medicine 12/01/24 Sara Avalos MD [address] [place] [address] Physician Radiation Oncology 12/09/24 Lidia Hirsch DO [address] [place] [address] General Surgery 01/04/25 Orville Martinez DO [address] [place] [address] Hematology/Oncology 01/14/25 Jennifer Burk RN Specialty Gas Inspector Oncology 01/14/25 Dbeorah Villavicencio LISW [address] [place] [address] Wildlife Conservationist Hematology/Oncology 02/04/25 Team Status: Inactive Member Role/Relationship Status Dates Babita Morataya CASH POSTING CLERK, CASH POSTING CLERK-C Primary Care Provider Active Start: February 27, 2025 End: February 27, 2025 Dr. Cuba Castro MD Attending Provider Active Sta rt: February 27, 2025 End: February 27, 2025 Dr. Cuba Castro MD Emergency Provider Active Sta rt: February 27, 2025 End: February 27, 2025 Team Status: Inactive Member Role/Relationship Status Dates Babita Morataya NP, CASH POSTING CLERK-C Primary Care Provider Active Start: March 18, 2025 End: March 18, 2025 Dr. Emilie Lennon DO Attending Provider Active Start: March 18, 2025 End: March 18, 2025 Dr. Emilie Lennon DO Referring Provider Active Start: March 18, 2025 End: March 18, 2025 Team Status: Inactive Member Role/Relationship Status Dates Babita Morataya NP, CASH POSTING CLERK-C Primary Care Provider Active Start: March 18, 2025 End: March 18, 2025 Dr. Mazin Arevalo DO Emergency Provider Active Start: March 18, 2025 End: March 18, 2025 Mail Machine Operator Relationship Specialty Start Date End Date Babita Morataya APRN.[facility] [address] [place] [address] PCP - General Family Medicine 12/01/24 Sara Avalos MD [address] [facility] [place] [address] Physician Radiation Oncology 12/09/24 Lidia iHrsch DO [address] [place] [address] General Surgery 01/04/25 Orville Martinez DO [address] [facility] [place] [address] Hematology/Oncology 01/14/25 Jennifer Burk RN Specialty Gas Inspector Oncology 01/14/25 Deborah Villavicencio LISW [address] [place] [address] Wildlife Conservationist Hematology/Oncology 02/04/25 Mail Machine Operator Relationship Specialty Start Date End Date Babita Morataya, SWITCHMAN SUPERVISOR.RADIOLOGY EQUIPMENT SERVICER [address] [place] [address] PCP - General Family Medicine 12/01/24 Sara Avalos MD [address] [place] [address] Physician Radiation Oncology 12/09/24 Lidia Hirsch DO [address] [place] [address] General Surgery 01/04/25 Orville Martinez DO [address] [place] [address] Hematology/Oncology 01/14/25 Jennifer Burk RN Specialty Gas Inspector Oncology 01/14/25 Deborah Villavicencio, AVA [address] [place] [address] Wildlife Conservationist Hematology/Oncology 02/04/25 Mail Machine Operator Relationship Specialty Start Date End Date Babita Morataya, SWITCHMAN SUPERVISOR.RADIOLOGY EQUIPMENT SERVICER [address] [place] [address] PCP - General Family Medicine 12/01/24 Sara Avalos MD [address] [place] [address] Physician Radiation Oncology 12/09/24 Lidia Hirsch DO [address] [place] [address] General Surgery 01/04/25 Orville Martinez DO [address] [place] [address] Hematology/Oncology 01/14/25 Jennifer Burk RN Specialty Gas Inspector Oncology 01/14/25 Deborah Villavicencio LISW [address] [place] [address] Wildlife Conservationist Hematology/Oncology 02/04/25 Mail Machine Operator Relationship Specialty Start Date End Date Babita Morataya, SWITCHMAN SUPERVISOR.RADIOLOGY EQUIPMENT SERVICER [address] [place] [address] PCP - General Family Medicine 12/01/24 Sara Avalos MD [address] [place] [address] Physician Radiation Oncology 12/09/24 Lidia Hirsch DO [address] [place] [address] General Surgery 01/04/25 Orville Martinez DO [address] [place] [address] Hematology/Oncology 01/14/25 Jennifer Burk RN Specialty Gas Inspector Oncology 01/14/25 Deborah Villavicencio LISW [address] [place] [address] Wildlife Conservationist Hematology/Oncology 02/04/25 Mail Machine Operator Relationship Specialty Start Date End Date Babita Morataya, SWITCHMAN SUPERVISOR.RADIOLOGY EQUIPMENT SERVICER [address] [place] [address] PCP - General Family Medicine 12/01/24 Sara Avalos MD [address] [place], [place] [address] Physician Radiation Oncology 12/09/24 Lidia Hirsch DO [address] [place] [address] General Surgery 01/04/25 Orville Martinez DO [address] [place] [address] Hematology/Oncology 01/14/25 Jennifer Burk, EVERT Specialty Gas Inspector Oncology 01/14/25 Deborah Villavicencio LISW [address] [place] [address] Wildlife Conservationist Hematology/Oncology 02/04/25 Team Status: Inactive Member Role/Relationship Status Dates Babita Morataya NP, CASH POSTING CLERK-C Primary Care Provider Active Start: March 18, 2025 End: March 18, 2025 Dr. Mazin Arevalo DO Attending Provider Active Start: March 18, 2025 End: March 18, 2025 Dr. Mazin Arevalo DO Emergency Provider Active Start: March 18, 2025 End: March 18, 2025 Team Status: Inactive Member Role/Relationship Status Dates Babita Morataya NP, C[employer] POSTING CLERK-C Primary Care Provider Active Start: April 14, 2025 End: April 14, 2025 Dr. Marilyn Ge MD Emergency Provider Active S tart: April 14, 2025 End: April 14, 2025 INFORMATION SOURCE (unrecogn ized section and content) DATE CREATED AUTHOR 11/06/2023 [facility] ([place]) DATE CREATED AUTHOR AUTHOR'S ORGANIZ ATION 11/28/2024 [facility] DATE CREATED AUTHOR AUTHOR'S ORGANIZ ATION 01/10/2025 [facility] DATE CREATED AUTHOR AUTHOR'S ORGANIZ ATION 03/24/2025 [facility] DATE CREATED AUTHOR AUTHOR'S ORGANIZ ATION 04/10/2025 [facility] Source Comments (unrecognize d section and content) In the event this informatio n is protected by the Federal Confidentiality of Alcohol and Drug Abuse Patient Records regulations: The Federal rules restrict any use of the information to criminally investigate or prosecute any alcohol or drug abuse patient.[facility] HospitalIn the event this information is protected by the Federal Confidentiality of Alcohol and Drug Abuse Patient Records regulations: The Federal rules restrict any use of the information to criminally investigate or prosecute any alcohol or drug abuse patient.[facility] HospitalIn the event this information is protected by the Federal Confidentiality of Alcohol and Drug Abuse Patient Records regulations: The Federal rules restrict any use of the information to criminally investigate or prosecute any alcohol or drug abuse patient.[facility] HospitalIn the event this information is protected by the Federal Confidentiality of Alcohol and Drug Abuse Patient Records regulations: The Federal rules restrict any use of the information to criminally investigate or prosecute any alcohol or drug abuse patient.[facility] HospitalIn the event this information is protected by the Federal Confidentiality of Alcohol and Drug Abuse Patient Records regulations: The Federal rules restrict any use of the information to criminally investigate or prosecute any alcohol or drug abuse patient.[facility] HospitalIn the event this information is protected by the Federal Confidentiality of Alcohol and Drug Abuse Patient Records regulations: The Federal rules restrict any use of the information to criminally investigate or prosecute any alcohol or drug abuse patient.[facility] HospitalIn the event this information is protected by the Federal Confidentiality of Alcohol and Drug Abuse Patient Records regulations: The Federal rules restrict any use of the information to criminally investigate or prosecute any alcohol or drug abuse patient.[facility] HospitalIn the event this information is protected by the Federal Confidentiality of Alcohol and Drug Abuse Patient Records regulations: The Federal rules restrict any use of the information to criminally investigate or prosecute any alcohol or drug abuse patient.[facility] HospitalIn the event this information is protected by the Federal Confidentiality of Alcohol and Drug Abuse Patient Records regulations: The Federal rules restrict any use of the information to criminally investigate or prosecute any alcohol or drug abuse patient.[facility] HospitalIn the event this information is protected by the Federal Confidentiality of Alcohol and Drug Abuse Patient Records regulations: The Federal rules restrict any use of the information to criminally investigate or prosecute any alcohol or drug abuse patient.[facility] HospitalIn the event this information is protected by the Federal Confidentiality of Alcohol and Drug Abuse Patient Records regulations: The Federal rules restrict any use of the information to criminally investigate or prosecute any alcohol or drug abuse patient.[facility] HospitalIn the event this information is protected by the Federal Confidentiality of Alcohol and Drug Abuse Patient Records regulations: The Federal rules restrict any use of the information to criminally investigate or prosecute any alcohol or drug abuse patient.[facility] HospitalIn the event this information is protected by the Federal Confidentiality of Alcohol and Drug Abuse Patient Records regulations: The Federal rules restrict any use of the information to criminally investigate or prosecute any alcohol or drug abuse patient.[facility] HospitalIn the event this information is protected by the Federal Confidentiality of Alcohol and Drug Abuse Patient Records regulations: The Federal rules restrict any use of the information to criminally investigate or prosecute any alcohol or drug abuse patient.[facility] HospitalIn the event this information is protected by the Federal Confidentiality of Alcohol and Drug Abuse Patient Records regulations: The Federal rules restrict any use of the information to criminally investigate or prosecute any alcohol or drug abuse patient.[facility] HospitalIn the event this information is protected by the Federal Confidentiality of Alcohol and Drug Abuse Patient Records regulations: The Federal rules restrict any use of the information to criminally investigate or prosecute any alcohol or drug abuse patient.[facility] HospitalIn the event this information is protected by the Federal Confidentiality of Alcohol and Drug Abuse Patient Records regulations: The Federal rules restrict any use of the information to criminally investigate or prosecute any alcohol or drug abuse patient.[facility] HospitalIn the event this information is protected by the Federal Confidentiality of Alcohol and Drug Abuse Patient Records regulations: The Federal rules restrict any use of the information to criminally investigate or prosecute any alcohol or drug abuse patient.[facility] HospitalIn the event this information is protected by the Federal Confidentiality of Alcohol and Drug Abuse Patient Records regulations: The Federal rules restrict any use of the information to criminally investigate or prosecute any alcohol or drug abuse patient.[facility] HospitalIn the event this information is protected by the Federal Confidentiality of Alcohol and Drug Abuse Patient Records regulations: The Federal rules restrict any use of the information to criminally investigate or prosecute any alcohol or drug abuse patient.[facility] HospitalIn the event this information is protected by the Federal Confidentiality of Alcohol and Drug Abuse Patient Records regulations: The Federal rules restrict any use of the information to criminally investigate or prosecute any alcohol or drug abuse patient.[facility] HospitalIn the event this information is protected by the Federal Confidentiality of Alcohol and Drug Abuse Patient Records regulations: The Federal rules restrict any use of the information to criminally investigate or prosecute any alcohol or drug abuse patient.[facility] HospitalIn the event this information is protected by the Federal Confidentiality of Alcohol and Drug Abuse Patient Records regulations: The Federal rules restrict any use of the information to criminally investigate or prosecute any alcohol or drug abuse patient.[facility] HospitalIn the event this information is protected by the Federal Confidentiality of Alcohol and Drug Abuse Patient Records regulations: The Federal rules restrict any use of the information to criminally investigate or prosecute any alcohol or drug abuse patient.[facility] HospitalIn the event this information is protected by the Federal Confidentiality of Alcohol and Drug Abuse Patient Records regulations: The Federal rules restrict any use of the information to criminally investigate or prosecute any alcohol or drug abuse patient.[facility] HospitalIn the event this information is protected by the Federal Confidentiality of Alcohol and Drug Abuse Patient Records regulations: The Federal rules restrict any use of the information to criminally investigate or prosecute any alcohol or drug abuse patient.[facility] HospitalIn the event this information is protected by the Federal Confidentiality of Alcohol and Drug Abuse Patient Records regulations: The Federal rules restrict any use of the information to criminally investigate or prosecute any alcohol or drug abuse patient.[facility] HospitalIn the event this information is protected by the Federal Confidentiality of Alcohol and Drug Abuse Patient Records regulations: The Federal rules restrict any use of the information to criminally investigate or prosecute any alcohol or drug abuse patient.[facility] HospitalIn the event this information is protected by the Federal Confidentiality of Alcohol and Drug Abuse Patient Records regulations: The Federal rules restrict any use of the information to criminally investigate or prosecute any alcohol or drug abuse patient.[facility] HospitalIn the event this information is protected by the Federal Confidentiality of Alcohol and Drug Abuse Patient Records regulations: The Federal rules restrict any use of the information to criminally investigate or prosecute any alcohol or drug abuse patient.[facility] HospitalIn the event this information is protected by the Federal Confidentiality of Alcohol and Drug Abuse Patient Records regulations: The Federal rules restrict any use of the information to criminally investigate or prosecute any alcohol or drug abuse patient.[facility] HospitalIn the event this information is protected by the Federal Confidentiality of Alcohol and Drug Abuse Patient Records regulations: The Federal rules restrict any use of the information to criminally investigate or prosecute any alcohol or drug abuse patient.[facility] HospitalIn the event this information is protected by the Federal Confidentiality of Alcohol and Drug Abuse Patient Records regulations: The Federal rules restrict any use of the information to criminally investigate or prosecute any alcohol or drug abuse patient.[facility] HospitalIn the event this information is protected by the Federal Confidentiality of Alcohol and Drug Abuse Patient Records regulations: The Federal rules restrict any use of the information to criminally investigate or prosecute any alcohol or drug abuse patient.[facility] HospitalIn the event this information is protected by the Federal Confidentiality of Alcohol and Drug Abuse Patient Records regulations: The Federal rules restrict any use of the information to criminally investigate or prosecute any alcohol or drug abuse patient.[facility] HospitalIn the event this information is protected by the Federal Confidentiality of Alcohol and Drug Abuse Patient Records regulations: The Federal rules restrict any use of the information to criminally investigate or prosecute any alcohol or drug abuse patient.[facility] HospitalIn the event this information is protected by the Federal Confidentiality of Alcohol and Drug Abuse Patient Records regulations: The Federal rules restrict any use of the information to criminally investigate or prosecute any alcohol or drug abuse patient.[facility] HospitalIn the event this information is protected by the Federal Confidentiality of Alcohol and Drug Abuse Patient Records regulations: The Federal rules restrict any use of the information to criminally investigate or prosecute any alcohol or drug abuse patient.[facility] HospitalIn the event this information is protected by the Federal Confidentiality of Alcohol and Drug Abuse Patient Records regulations: The Federal rules restrict any use of the information to criminally investigate or prosecute any alcohol or drug abuse patient.[facility] HospitalIn the event this information is protected by the Federal Confidentiality of Alcohol and Drug Abuse Patient Records regulations: The Federal rules restrict any use of the information to criminally investigate or prosecute any alcohol or drug abuse patient.[facility] HospitalIn the event this information is protected by the Federal Confidentiality of Alcohol and Drug Abuse Patient Records regulations: The Federal rules restrict any use of the information to criminally investigate or prosecute any alcohol or drug abuse patient.[facility] HospitalIn the event this information is protected by the Federal Confidentiality of Alcohol and Drug Abuse Patient Records regulations: The Federal rules restrict any use of the information to criminally investigate or prosecute any alcohol or drug abuse patient.[facility] HospitalIn the event this information is protected by the Federal Confidentiality of Alcohol and Drug Abuse Patient Records regulations: The Federal rules restrict any use of the information to criminally investigate or prosecute any alcohol or drug abuse patient.[facility] HospitalIn the event this information is protected by the Federal Confidentiality of Alcohol and Drug Abuse Patient Records regulations: The Federal rules restrict any use of the information to criminally investigate or prosecute any alcohol or drug abuse patient.[facility] HospitalIn the event this information is protected by the Federal Confidentiality of Alcohol and Drug Abuse Patient Records regulations: The Federal rules restrict any use of the information to criminally investigate or prosecute any alcohol or drug abuse patient.[facility] HospitalIn the event this information is protected by the Federal Confidentiality of Alcohol and Drug Abuse Patient Records regulations: The Federal rules restrict any use of the information to criminally investigate or prosecute any alcohol or drug abuse patient.[facility] HospitalIn the event this information is protected by the Federal Confidentiality of Alcohol and Drug Abuse Patient Records regulations: The Federal rules restrict any use of the information to criminally investigate or prosecute any alcohol or drug abuse patient.[facility] HospitalIn the event this information is protected by the Federal Confidentiality of Alcohol and Drug Abuse Patient Records regulations: The Federal rules restrict any use of the information to criminally investigate or prosecute any alcohol or drug abuse patient.[facility] HospitalIn the event this information is protected by the Federal Confidentiality of Alcohol and Drug Abuse Patient Records regulations: The Federal rules restrict any use of the information to criminally investigate or prosecute any alcohol or drug abuse patient.[facility] HospitalIn the event this information is protected by the Federal Confidentiality of Alcohol and Drug Abuse Patient Records regulations: The Federal rules restrict any use of the information to criminally investigate or prosecute any alcohol or drug abuse patient.[facility] HospitalIn the event this information is protected by the Federal Confidentiality of Alcohol and Drug Abuse Patient Records regulations: The Federal rules restrict any use of the information to criminally investigate or prosecute any alcohol or drug abuse patient.[facility] HospitalIn the event this information is protected by the Federal Confidentiality of Alcohol and Drug Abuse Patient Records regulations: The Federal rules restrict any use of the information to criminally investigate or prosecute any alcohol or drug abuse patient.[facility] HospitalIn the event this information is protected by the Federal Confidentiality of Alcohol and Drug Abuse Patient Records regulations: The Federal rules restrict any use of the information to criminally investigate or prosecute any alcohol or drug abuse patient.[facility] HospitalIn the event this information is protected by the Federal Confidentiality of Alcohol and Drug Abuse Patient Records regulations: The Federal rules restrict any use of the information to criminally investigate or prosecute any alcohol or drug abuse patient.[facility] HospitalIn the event this information is protected by the Federal Confidentiality of Alcohol and Drug Abuse Patient Records regulations: The Federal rules restrict any use of the information to criminally investigate or prosecute any alcohol or drug abuse patient.[facility] HospitalIn the event this information is protected by the Federal Confidentiality of Alcohol and Drug Abuse Patient Records regulations: The Federal rules restrict any use of the information to criminally investigate or prosecute any alcohol or drug abuse patient.[facility] HospitalIn the event this information is protected by the Federal Confidentiality of Alcohol and Drug Abuse Patient Records regulations: The Federal rules restrict any use of the information to criminally investigate or prosecute any alcohol or drug abuse patient.[facility] HospitalIn the event this information is protected by the Federal Confidentiality of Alcohol and Drug Abuse Patient Records regulations: The Federal rules restrict any use of the information to criminally investigate or prosecute any alcohol or drug abuse patient.[facility] HospitalIn the event this information is protected by the Federal Confidentiality of Alcohol and Drug Abuse Patient Records regulations: The Federal rules restrict any use of the information to criminally investigate or prosecute any alcohol or drug abuse patient.[facility] HospitalIn the event this information is protected by the Federal Confidentiality of Alcohol and Drug Abuse Patient Records regulations: The Federal rules restrict any use of the information to criminally investigate or prosecute any alcohol or drug abuse patient.[facility] HospitalIn the event this information is protected by the Federal Confidentiality of Alcohol and Drug Abuse Patient Records regulations: The Federal rules restrict any use of the information to criminally investigate or prosecute any alcohol or drug abuse patient.[facility] HospitalIn the event this information is protected by the Federal Confidentiality of Alcohol and Drug Abuse Patient Records regulations: The Federal rules restrict any use of the information to criminally investigate or prosecute any alcohol or drug abuse patient.[facility] HospitalIn the event this information is protected by the Federal Confidentiality of Alcohol and Drug Abuse Patient Records regulations: The Federal rules restrict any use of the information to criminally investigate or prosecute any alcohol or drug abuse patient.[facility] HospitalIn the event this information is protected by the Federal Confidentiality of Alcohol and Drug Abuse Patient Records regulations: The Federal rules restrict any use of the information to criminally investigate or prosecute any alcohol or drug abuse patient.[facility] HospitalIn the event this information is protected by the Federal Confidentiality of Alcohol and Drug Abuse Patient Records regulations: The Federal rules restrict any use of the information to criminally investigate or prosecute any alcohol or drug abuse patient.[facility] HospitalIn the event this information is protected by the Federal Confidentiality of Alcohol and Drug Abuse Patient Records regulations: The Federal rules restrict any use of the information to criminally investigate or prosecute any alcohol or drug abuse patient.[facility] HospitalIn the event this information is protected by the Federal Confidentiality of Alcohol and Drug Abuse Patient Records regulations: The Federal rules restrict any use of the information to criminally investigate or prosecute any alcohol or drug abuse patient.[facility] HospitalIn the event this information is protected by the Federal Confidentiality of Alcohol and Drug Abuse Patient Records regulations: The Federal rules restrict any use of the information to criminally investigate or prosecute any alcohol or drug abuse patient.[facility] HospitalIn the event this information is protected by the Federal Confidentiality of Alcohol and Drug Abuse Patient Records regulations: The Federal rules restrict any use of the information to criminally investigate or prosecute any alcohol or drug abuse patient.[facility] HospitalIn the event this information is protected by the Federal Confidentiality of Alcohol and Drug Abuse Patient Records regulations: The Federal rules restrict any use of the information to criminally investigate or prosecute any alcohol or drug abuse patient.[facility] HospitalIn the event this information is protected by the Federal Confidentiality of Alcohol and Drug Abuse Patient Records regulations: The Federal rules restrict any use of the information to criminally investigate or prosecute any alcohol or drug abuse patient.[facility] HospitalIn the event this information is protected by the Federal Confidentiality of Alcohol and Drug Abuse Patient Records regulations: The Federal rules restrict any use of the information to criminally investigate or prosecute any alcohol or drug abuse patient.[facility] HospitalIn the event this information is protected by the Federal Confidentiality of Alcohol and Drug Abuse Patient Records regulations: The Federal rules restrict any use of the information to criminally investigate or prosecute any alcohol or drug abuse patient.[facility] HospitalIn the event this information is protected by the Federal Confidentiality of Alcohol and Drug Abuse Patient Records regulations: The Federal rules restrict any use of the information to criminally investigate or prosecute any alcohol or drug abuse patient.[facility] HospitalIn the event this information is protected by the Federal Confidentiality of Alcohol and Drug Abuse Patient Records regulations: The Federal rules restrict any use of the information to criminally investigate or prosecute any alcohol or drug abuse patient.[facility] HospitalIn the event this information is protected by the Federal Confidentiality of Alcohol and Drug Abuse Patient Records regulations: The Federal rules restrict any use of the information to criminally investigate or prosecute any alcohol or drug abuse patient.[facility] HospitalIn the event this information is protected by the Federal Confidentiality of Alcohol and Drug Abuse Patient Records regulations: The Federal rules restrict any use of the information to criminally investigate or prosecute any alcohol or drug abuse patient.[facility] HospitalIn the event this information is protected by the Federal Confidentiality of Alcohol and Drug Abuse Patient Records regulations: The Federal rules restrict any use of the information to criminally investigate or prosecute any alcohol or drug abuse patient.[facility] Reason for Visit (unrecogniz ed section and content) Reason Comments Imm/Inj Specialty Diagnoses / Procedures Referred By Contac t Referred To Contact Diagnoses Breast cancer, stage 2, left (HCC) Malignant neoplasm of upper-inner quadrant of left breast in female, estrogen receptor negative (HCC) Orville Martinez, [address] [place] [address] Phone: tel: fax: Hematology/Oncology [address] [place] [address] Phone: tel: fax: Referral ID Status Reason Start Date Expiration Date V isits Requested Visits Authorized [id number] Authorized 03/23/2025 06/21/2025 99 99 Reason Comments New Patient Specialty Diagnoses / Procedures Referred By Contac t Referred To Contact Oncology Diagnoses Breast cancer, stage 2, left (HCC) Malignant neoplasm of upper-inner quadrant of left breast in female, estrogen receptor negative (HCC) Procedures CONSULT TO ONCOLOGY OFFICE/OUTPATIENT [facility] 60 MINUTES Lidia Hirsch, DO [address] [place] [address] Phone: tel: fax: Orville Martinez, [address] [place] [address] Phone: tel: fax: Referral ID Status Reason Start Date Expiration Date V isits Requested Visits Authorized [id number] Closed PCP Requested Referral 12/08/2024 12/08/2025 1 1 Reason Comments Post-Op Visit 1wk breast biopsy re sults SKIP 12/01 12/01 [facility] LEFT Reason Comments Consult Left breast Reason Comments Radiology CT Specialty Diagnoses / Procedures Referred By [facility] Referred To Contact CT IMAGING Diagnoses Malignant neoplasm of upper-inner quadrant of left breast in female, estrogen receptor negative (HCC) Procedures CT ABD/PEL W IVCON CT ABD & PELVIS W/CONTRAST Lidia Hirsch, DO [address] [place] [address] Phone: tel: fax: [place] [phone] Referral ID Status Reason Start Date Expiration Date V isits Requested Visits Authorized [id number] Closed Auto-Generate d Referral 12/08/2024 01/07/2026 1 1 Reason Comments Consult Reason Comments Gas Inspector - Other Reason Comments Care Coordination Introduction Reason Comments Follow Up Reason Comments Gas Inspector - Other Chemo Education appointment Reason Comments Appointment Reason Comments Patient Update Reason Comments MRI Scheduling Appointment Reason Comments New Patient Left breast cancer Reason Comments Gas Inspector - Other Antiemetic Reason Comments cooling cap Reason Comments Radiology US Specialty Diagnoses / Procedures Referred By [facility] Referred To Contact [facility] Diagnoses Increased endometrial stripe thickness Procedures US FEMALE PELVIS TRANSVAG US TRANSVAGINAL Orville Martinez, DO [address] [place] [address] Phone: tel: fax: [place] [phone] Referral ID Status Reason Start Date Expiration Date V isits Requested Visits Authorized [id number] Closed Auto-Generate d Referral 01/04/2025 02/03/2026 1 1 Reason Comments First Time Treatment Education Keynote 5 22 Reason Comments Results Reason Comments Chemotherapy Treatment Specialty Diagnoses / Procedures Referred By [facility] t Referred To Contact Diagnoses Malignant neoplasm of upper-inner quadrant of left breast in female, estrogen receptor negative (HCC) Orville Martinez, DO [address] [place] [address] Phone: tel: fax: Orville Martinez, DO [address] [place] [address] Phone: tel: fax: Referral ID Status Reason Start Date Expiration Date V isits Requested Visits Authorized [id number] Authorized 01/19/2025 04/19/2025 1 1 Reason Comments Care Coordination Pain at port site Reason Onset Date Comments Refill Request 01/25/2025 Reason Comments Gas Inspector - Other C1D1 Post Treat ment Call (Carbo/taxol/keytruda) Reason Comments Patient Question Reason Comments Reason Comments Blood Draw (CVAD) Reason Comments Established Patient Reason Comments Consult For surgery Specialty Diagnoses / Procedures Referred By Contac t Referred To Contact Gynecology Diagnoses Endometrial polyp Procedures CONSULT TO GYNECOLOGY OFFICE/OUTPATIENT [facility] 60 MINUTES Orville Martinez, DO [address] [place] [address] Phone: tel: fax: Referral ID Status Reason Start Date Expiration Date V isits Requested Visits Authorized [id number] Closed PCP Requested Referral Auto-Generated Referral 01/17/2025 01/17/2026 1 1 Reason Comments Pre-Op Visit Reason Comments Gas Inspector - Other Question Reason Comments Non-Chemotherapy Treatment Reason Comments Post-Op Visit Goals (unrecognized section and content) Goals may [...] BE BASED ON THE PRIMARY CLINICAL RECORDS. [employer] provides no warranty or guarantee of the accuracy or completeness of information in this document.
== END 2025-04-14 16:15 | disposition home or self-care (01) ==
PROVIDERS: Emergency Provider Student in an Organized Health Care Education/Training Program; PCP Nurse Practitioner Family; Visit Provider Student in an Organized Health Care Education/Training Program
DX: R10.9 Unspecified abdominal pain (principal); C50.919 Malignant neoplasm of unspecified site of unspecified female breast; T45.1X5A Adverse effect of antineoplastic and immunosuppressive drugs, initial encounter; R11.0 Nausea; I10 Essential (primary) hypertension; E78.00 Pure hypercholesterolemia, unspecified; Z92.21 Personal history of antineoplastic chemotherapy
CPT/HCPCS: 99284